=== PATIENT | female | born 1970 | race Caucasian/White ===

== ENCOUNTER 2016-05-05 11:32 | Outpatient (RCR) | payer MEDICAID ==
--- OUTSIDE RECORDS SUMMARY | 2016-05-05 10:57 | XMS REPORT | Continuity of Care Document ---
Author Author [facility] Organization [facility] Address Unknown Phone Unavailable Care Team Providers Care Analyst Geochemical Prospecting Name Role Phone Dudley Maria PCP [phone] Source Comments Some departments are not documenting in the electronic medical record. If you do not see the information that you expected, contact Release of Information in the Health Information Management department at [phone] for further assistance in locating additional records.[facility] Active Allergies and Adverse Reactions Not on File Current Medications Not on file Active Problems Not on file Social History Tobacco Use Types Packs/Day Years Used Date Never Assessed Plan of Care Health Maintenance Due Date Last Done Comments Physical (Comprehensive) 1976 Exam Pertussis Vaccine 1980 Tetanus Vaccine 1986 Cervical Cancer Screening 1990 Breast Cancer Screening 2009 Influenza Vaccine 02/25/2016 Results from Last 3 Months Not on file
[~2016-05-05 11:32] MED LIST: ACET-2267 PO; ALPR1TAB7 PO; AMOX500C2 PO; ASP81CT; ATEN50TA PO; ATN25T; BACL10TA PO; CYCL10TA45; CYCL10TA9 PO; DICL50PO5 PO; DIPH25TA65 PO; ESCI20TA45 PO; FURO20TA4 PO; GABA600T2 PO; GABA800T2 PO; GBPN600T; INSHRV; INSU100I29 SC; INSU100I32 SQ; INSU100V5 SQ; INSU100V8; INSU500V SQ; LEVO25TA5 PO; LEVO75TA6 PO; LISI5TAB14; LISINOPRIL; LOSA1TAB70 PO; LOVASTATIN; MED FOR TACHYCARDIA; METO5TAB6 PO; MORP-33 PO; MUPI15CR11 TP; NALO25TA PO; NITR0.4T SL; NYST1000 PO; NYST15OI13 TP; NYST30PO9 TOP; OSLT75C PO; OXYC-202 PO; OXYC-465 PO; PANT40TA3 PO; PNT40TEC; PROM25TA14 PO; PROP1TAB77; PROP1TAB77 PO; QUET50TA49 PO; RANI150T15 PO; RT-ALBUINH INH; TEMA30CA PO; VARE1TAB22 PO
--- OUTSIDE RECORDS SUMMARY | 2016-05-05 11:35 | XMS REPORT | Continuity of Care Document ---
Author Author [facility] Organization [facility] Address Unknown Phone Unavailable Care Team Providers Care Long Lines Operator Name Role Phone Dudley Maria PCP [phone] Source Comments Some departments are not documenting in the electronic medical record. If you do not see the information that you expected, contact Release of Information in the Health Information Management department at [phone] for further assistance in locating additional records.[facility] Active Allergies and Adverse Reactions Not on [...]
[2016-05-10 07:21] LABS: NUMBER HOURS COLLECTED 24 HOURS; URINE VOLUME REF 2700 ML
[2016-05-13 07:46] LABS: CREAT/CORTI URINE REF LAB 594 L MG/DAY (700-1600)
[2016-05-13 07:47] LABS: CORT U UG/L 3.34 UG/L; CORTISOL CREATININE RATIO URIN 15.18 ug/g CRT; CORTISOL INTERP SEE FOOTNOTE; CREATININE URINE REF MG/DL 22 MG/DL
[2016-07-16] MEDS ORDERED: NAPR500T3 PO (17:51)
[2016-07-16] MEDS ORDERED: TIZA2CAP9 PO (17:51)
[2016-07-18] MEDS ORDERED: NYST1000 MM (14:01)
[2016-07-18] MEDS ORDERED: TIZA2TAB3 PO (14:01)
[2016-07-18] MEDS ORDERED: IBUP-30 PO (14:01)
[2016-07-18] MEDS ORDERED: INSU500I SC (14:01)
[2016-07-18] MEDS ORDERED: OXYC-471 PO (14:01)
[2016-07-18] MEDS ORDERED: ATEN100T PO (14:01)
[2016-07-18] MEDS ORDERED: NYST30PO9 TOP (14:01)
[2016-08-04] MEDS ORDERED: VARE0.5T PO (15:58)
== END 2016-08-03 | disposition home or self-care (01) ==
LOC: LAB 11:32
PROVIDERS: ATTEND Internal Medicine Endocrinology, Diabetes & Metabolism
DX: E88.81 Metabolic syndrome and other insulin resistance (principal)
CPT/HCPCS: 36415; 82530; 86337

== ENCOUNTER 2016-07-16 11:49 | Observation (INO) | payer MEDICAID ==
[~2016-07-16] VITALS: Ht 157.5 cm; Wt 117.5 kg
--- OUTSIDE RECORDS SUMMARY | 2016-07-16 11:55 | XMS REPORT | Continuity of Care Document ---
Author Author [facility] Organization [facility] Address Unknown Phone Unavailable Care Team Providers Care Dairy Chemist Name Role Phone Dudley Maria PCP [phone] Source Comments Some departments are not documenting in the electronic medical record. If you do not see the information that you expected, contact Release of Information in the Health Information Management department at [phone] for further assistance in locating additional records.[facility] Active Allergies and Adverse Reactions [...]
[2016-07-16 12:25] LABS: BASOPHILS % (AUTO) 1 % (0-10); EOSINOPHILS % (AUTO) 3 % (0-10); LYMPHOCYTES % (AUTO) 44 % (12-44); MEAN CORPUSCULAR HEMOGLOBIN 30 PG (25-34); MEAN CORPUSCULAR HGB CONC 33 G/DL (32-36); MEAN CORPUSCULAR VOLUME 90 FL (80-99); MONOCYTES % (AUTO) 5 % (0-12); NEUTROPHILS # (AUTO) 3.8 X 10^3 (1.8-7.8); NEUTROPHILS % (AUTO) 47 % (42-75); PLATELET COUNT 238 10^3/uL (130-400); RED BLOOD COUNT 3.86 10^6/uL (4.35-5.85); RED CELL DISTRIBUTION WIDTH 13.7 % (10.0-14.5); WHITE BLOOD COUNT 8.1 10^3/uL (4.3-11.0)
[2016-07-16 12:26] LABS: BASOPHILS # (AUTO) 0.1 10^3/uL (0.0-0.1); EOSINOPHILS # (AUTO) 0.3 10^3/uL (0.0-0.3); LYMPHOCYTES # (AUTO) 3.5 X 10^3 (1.0-4.0); MONOCYTES # (AUTO) 0.4 X 10^3 (0.0-1.0)
[2016-07-16 12:29] LABS: BILIRUBIN,URINE NEGATIVE (NEGATIVE); KETONES,URINE NEGATIVE (NEGATIVE); LEUKOCYTE ESTERASE ,URINE NEGATIVE (NEGATIVE); NITRITE,URINE NEGATIVE (NEGATIVE); PH,URINE 6 (5-9); PROTEIN,URINE NEGATIVE (NEGATIVE); UROBILINOGEN,URINE NORMAL (NORMAL)
[2016-07-16] MEDS ORDERED: inSUlin ASPART (NovoLOG) 1 UNIT/0.01 ML (CHARGE PER UNIT) SC ONE (12:45)
[2016-07-16 12:46] LABS: ALANINE AMINOTRANSFERASE 23 U/L (0-55); ALBUMIN 3.5 G/DL (3.2-4.5); ANION GAP 15 MMOL/L (5-14); ASPARTATE AMINO TRANSFERASE 15 U/L (5-34); BILIRUBIN,TOTAL 0.6 MG/DL (0.1-1.0); BLOOD UREA NITROGEN 7 MG/DL (7-18); BUN/CREATININE RATIO 7; CALCIUM 8.1 MG/DL (8.5-10.1); CARBON DIOXIDE 20 MMOL/L (21-32); CHLORIDE 92 MMOL/L (98-107); CREATININE SERUM 0.95 MG/DL (0.60-1.30); GFR ESTIMATED > 60; POTASSIUM 3.4 MMOL/L (3.6-5.0); SODIUM 127 MMOL/L (135-145)
[2016-07-16 12:49] LABS: GLUCOSE 685 MG/DL (70-105)
[2016-07-16] MEDS: NS IV 1000 ML 1,000 ML IV SCH ×3 (12:51→21:10)
[2016-07-16] MEDS ORDERED: inSUlin (REGULAR) HUMAN 1 UNIT/0.01 ML (CHARGE PER UNIT) IV ONE (13:45)
[2016-07-16] MEDS ORDERED: NS IV 1000 ML 1,000 ML IV SCH (13:45)
--- NOTE | 2016-07-16 14:09 | ED General ---
General Chief Complaint: Glucose Problems Stated Complaint: ELEV BLOOD SUGAR/VOMITING Nursing Triage Note: Pt presents to ED with c/o N/V/D and hyperglycemia over the last several weeks, pt reports R side abdominal pain and "swelling". Nursing Sepsis Screen: No Definite Risk Source of Information: Patient Exam Limitations: No Limitations History of Present Illness Time Seen by Provider: 14:07 Initial Comments The patient is a 45-year-old white female who reports that she has been having trouble with abdominal pain, repeated nausea and vomiting, and diarrhea for the past month or more. She states that today despite not eating because of vomiting, her glucometer registered high. She took her usual morning dose but did not apply her sliding scale. She gives a history of having previous cholecystectomy and appendectomy. She had some sort of bowel perforation 15 or more years ago which she says was repaired by a steel mash. Timing/Duration: Other (1 month or more) Associated Systoms: Loss of Appetite Allergies and Home Medications Allergies Coded Allergies: acetaminophen (Verified Allergy, Mild, 01/12/09) hydrocodone (Verified Allergy, Mild, 01/12/09) Iodinated Contrast Media - IV Dye (Verified Allergy, Unknown, 04/27/07) Sulfa (Sulfonamide Antibiotics) (Verified Allergy, Unknown, 04/27/07) codeine (Verified Allergy, Unknown, 04/27/07) iodine (Verified Allergy, Unknown, 04/27/07) metoclopramide (Verified Allergy, Unknown, 08/17/15) ondansetron (Verified Allergy, Unknown, 08/17/15) prochlorperazine (Verified Allergy, Unknown, 04/27/07) Uncoded Allergies: IV Dye (Allergy, Mild, 08/17/15) tape (Adverse Reaction, Mild, blister, 08/17/15) Home Medications Acetaminophen 500 Mg Tablet 1,000 MG PO DAILY @HS (Reported) Alprazolam 1 Mg Tablet 1 MG PO TID PRN PRN ANXIETY (Reported) Atenolol 50 Mg Tablet 100 MG PO DAILY (Reported) TAKES 2 OF A (50 MG) TABLET Baclofen 10 Mg Tablet 10 MG PO TID (Reported) Cyclobenzaprine HCl 10 Mg Tablet 10 MG PO TID PRN PRN MUSCLE SPASMS (Reported) Diphenhydramine HCl 25 Mg Tablet 50 MG PO DAILY @ HS (Reported) Escitalopram Oxalate 20 Mg Tablet 20 MG PO DAILY (Reported) Furosemide 20 Mg Tablet 20 MG PO DAILY PRN PRN SWELLING (Reported) Gabapentin 800 Mg Tablet 800 MG PO TID (Reported) Insulin Degludec 100 Unit/1 Ml Insuln.pen 75 UNITS SQ HS (Reported) Insulin Determir 1,000 Units/10 Ml Soln 35 UNITS SQ BID (Reported) Insulin Regular, Human 20 Ml Soln 45 UNITS SQ AC (Reported) Levothyroxine Sodium 75 Mcg Tablet 75 MCG PO HS (Reported) Losartan/Hydrochlorothiazide 1 Each Tablet 1 TAB PO HS (Reported) Metolazone 5 Mg Tablet 5 MG PO DAILY PRN PRN SWELLING (Reported) Morphine Sulfate 15 Mg Tablet.er 15 MG PO Q12H PRN PRN PAIN (Reported) LAST FILLED 10/07/15 #60 Mupirocin Calcium 15 Gm Cream..g. 15 GM TP TID PRN PRN ITCHING (Reported) Naloxegol Oxalate 25 Mg Tablet 25 MG PO DAILY PRN (Reported) Nystatin 15 Gm Oint...g. 15 GM TP BID (Reported) Oxycodone HCl/Acetaminophen 1 Each Tablet 1 EACH PO TID PRN PRN PAIN (Reported) Oxycodone HCl/Acetaminophen 1 Each Tablet 1 EACH PO TID PRN PRN PAIN (Reported) Pantoprazole Sodium 40 Mg Tablet.dr 40 MG PO DAILY (Reported) Promethazine HCl 25 Mg Tablet 25 MG PO Q6H PRN PRN NAUSEA (Reported) Promethazine HCl 25 Mg Tablet #10 25 MG PO Q8H PRN PRN NAUSEA/VOMITING Prescribed by: LEELA LUNA on 04/12/162017 Quetiapine Fumarate 50 Mg Tab.er.24h 100 MG PO HS (Reported) TAKES 2 (50MG) TABLETS Ranitidine HCl 150 Mg Tablet 150 MG PO BID (Reported) Temazepam 30 Mg Capsule 30 MG PO HS (Reported) Varenicline Tartrate 1 Mg Tablet 1 MG PO BID (Reported) Constitutional: see HPI EENTM: no symptoms reported Respiratory: no symptoms reported Cardiovascular: no symptoms reported Gastrointestinal: see HPI Musculoskeletal: no symptoms reported Skin: no symptoms reported Psychiatric/Neurological: No Symptoms Reported Hematologic/Lymphatic: No Symptoms Reported Immunological/Allergic: no symptoms reported Past Gglibbe-Hzurzw-Wsofli Hx Patient Social History Alcohol Use: Denies Use Recreational Drug Use: No Smoking Status: Current Everyday Smoker Type Used: Cigarettes, Electronic/Vapor Recent Foreign Travel: No Contact w/Someone Who Travel: No Recent Infectious Disease Expo: No Recent Hopitalizations: No Physical Abuse Screen: No Sexual Abuse: No Seasonal Allergies Seasonal Allergies: No Surgeries HX Surgeries: Yes (port) Surgeries: Abdominal, Appendectomy, Bladder Surgery, Cardiac, Gallbladder, Hysterectomy, Oophorectomy, Tonsillectomy Respiratory Hx Respiratory Disorders: Yes Respiratory Disorders: COPD Cardiovascular Hx Cardiac Disorders: Yes (cath, NARROWING OF CAROTIDS ASHLI. 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 Genitourinary Hx Genitourinary Disorders: Yes (BLADDER SURGERY) Gastrointestinal Hx Gastrointestinal Disorders: Yes (chronic abdominal pain from hernia repair) Musculoskeletal Hx Musculoskeletal Disorders: Yes Musculoskeletal Disorders: Fibromyalgia, Back Injury, Chronic Back Pain Endocrine Hx Endocrine Disorders: Yes (obesity) Endocrine Disorders: Diabetes, Insulin dep, Hypothyroidsim HEENT HX ENT Disorders: No Cancer Hx Cancer: No Psychosocial Hx Psychiatric Problems: Yes Behavioral Health Disorders: Anxiety, Depression Integumentary HX Skin/Integumentary Disorder: No Blood Transfusions Hx Blood Disorders: No Family Medical History Significant Family History: Hypertension Physical Exam Vital Signs Vital Sign - Last 12Hours 07/16/16 11:52 Temp 97.9 Pulse 67 Resp 18 B/P 138/97 Pulse Ox 97 O2 Delivery Room Air Capillary Refill : Less Than 3 Seconds General Appearance: Mild Distress Moderate Distress Eyes: Bilateral Eye Normal Inspection HEENT: Normal ENT Inspection Neck: Normal Inspection Respiratory: Chest Non Tender Lungs Clear Normal Breath Sounds No Accessory Muscle Use No Respiratory Distress Cardiovascular: Regular Rate, Rhythm No Edema No Gallop No JVD No Murmur Normal Peripheral Pulses Gastrointestinal: Other Extremity: Normal Capillary Refill Normal Inspection Normal Range of Motion Non Tender No Calf Tenderness No Pedal Edema Neurologic/Psychiatric: Alert Oriented x3 No Motor/Sensory Deficits Normal Mood/Affect Skin: Normal Color Warm/Dry Lymphatic: No Adenopathy Progress/Results/Core Measures Results/Orders Lab Results Laboratory Tests Test 07/16/16 12:10 07/16/16 12:25 07/16/16 12:27 07/16/16 13:41 Range/Units Alanine Aminotransferase (ALT/SGPT) 23 0-55 U/L Albumin 3.5 3.2-4.5 G/DL Alkaline Phosphatase 89 40-136 U/L Anion Gap 15 H 5-14 MMOL/L Aspartate Amino Transf (AST/SGOT) 15 5-34 U/L BUN/Creatinine Ratio 7 Basophils # (Auto) 0.1 0.0-0.1 10^3/uL Basophils (%) (Auto) 1 0-10 % Blood Urea Nitrogen 7 7-18 MG/DL Calcium Level 8.1 L 8.5-10.1 MG/DL Carbon Dioxide Level 20 L 21-32 MMOL/L Chloride Level 92 L 98-107 MMOL/L Creatinine 0.95 0.60-1.30 MG/DL Eosinophils # (Auto) 0.3 0.0-0.3 10^3/uL Eosinophils (%) (Auto) 3 0-10 % Estimat Glomerular Filtration Rate > 60 Glucose Level 685 *H 70-105 MG/DL Hematocrit 35 35-52 % Hemoglobin 11.4 L 11.5-16.0 G/DL Lymphocytes # (Auto) 3.5 1.0-4.0 X 10^3 Lymphocytes (%) (Auto) 44 12-44 % Mean Corpuscular Hemoglobin 30 25-34 PG Mean Corpuscular Hemoglobin Concent 33 32-36 G/DL Mean Corpuscular Volume 90 80-99 FL Mean Platelet Volume 10.0 7.4-10.4 FL Monocytes # (Auto) 0.4 0.0-1.0 X 10^3 Monocytes (%) (Auto) 5 0-12 % Neutrophils # (Auto) 3.8 1.8-7.8 X 10^3 Neutrophils (%) (Auto) 47 42-75 % Platelet Count 238 130-400 10^3/uL Potassium Level 3.4 L 3.6-5.0 MMOL/L Red Blood Count 3.86 L 4.35-5.85 10^6/uL Red Cell Distribution Width 13.7 10.0-14.5 % Sodium Level 127 L 135-145 MMOL/L Total Bilirubin 0.6 0.1-1.0 MG/DL Total Protein 6.0 L 6.4-8.2 G/DL White Blood Count 8.1 4.3-11.0 10^3/uL Urine Bacteria NEGATIVE /HPF Urine Bilirubin NEGATIVE NEGATIVE Urine Casts NONE /LPF Urine Clarity CLEAR Urine Color YELLOW Urine Crystals NONE /LPF Urine Culture Indicated NO Urine Glucose (UA) 4+ H NEGATIVE Urine Ketones NEGATIVE NEGATIVE Urine Leukocyte Esterase NEGATIVE NEGATIVE Urine Mucus NEGATIVE /LPF Urine Nitrite NEGATIVE NEGATIVE Urine Protein NEGATIVE NEGATIVE Urine RBC NONE /HPF Urine RBC (Auto) NEGATIVE NEGATIVE Urine Specific [place] 1.005 L 1.016-1.022 Urine Squamous Epithelial Cells 2-5 /HPF Urine Urobilinogen NORMAL NORMAL MG/DL Urine WBC NONE /HPF Urine pH 6 5-9 Glucometer > 600 *H 563 *H 70-110 MG/DL My Orders Orders-CARLOS ALBERTO CERVANTES MD Accucheck Stat ONCE (07/16/16 12:06) Cbc With Automated Diff (07/16/16 12:06) Comprehensive Metabolic Panel (07/16/16 12:06) Ua Culture If Indicated (07/16/16 12:06) Ns Iv 1000 Ml (Sodium Chloride 0.9%) (07/16/16 12:45) Insulin Aspart (Novolog) (Novolog (Charg (07/16/16 12:45) Ns Iv 1000 Ml (Sodium Chloride 0.9%) (07/16/16 13:45) Insulin (Regular) Human (Humulin R (Per (07/16/16 13:45) Ct Abdomen/Pelvis Wo (07/16/16 14:05) Medications Given in ED Current Medications Medications Dose Ordered Sig/Ramiro Route Start Time Stop Time Status Last Admin Dose Admin Insulin Aspart 10 unit ONCE ONCE SC 07/16/16 12:45 07/16/16 12:46 DC 07/16/16 12:51 10 UNIT Insulin Human Regular 10 unit ONCE ONCE IV 07/16/16 13:45 07/16/16 13:46 DC 07/16/16 13:50 10 UNIT Vital Signs/I&O Vital Sign - Last 12Hours 07/16/16 11:52 Temp 97.9 Pulse 67 Resp 18 B/P 138/97 Pulse Ox 97 O2 Delivery Room Air Blood Pressure Mean: 111 Point of Care Testing Finger Stick Blood Glucose: 563 Blood Glucose Action Taken: RN AND DOCTOR NOTIFIED Departure Communication Progress Notes [address] Millard who is on-call for [facility]. The patient will be admitted for diabetic control and to address the abdominal complaints. Impression Impression: Primary Impression: nonketotic hyperglycemia Disposition: ADMITTED INPATIENT Condition: Improved Decision to Admit Reason: Admit from ER (General) Decision to Admit/Date: Jul 16, 2016 Time/Decision to Admit Time: 14:27 Departure-Patient Inst. Referrals: THERESE VIEIRA DO (PCP) Primary Care Physician MIRZA MARTINO (Family) Primary Care Physician CARLOS ALBERTO CERVANTES MD Jul 16, 2016 14:09
[2016-07-16] MEDS ORDERED: inSUlin REGULAR TPN/DRIP ONLY 250 UNITS in NORMAL SALINE 247.5 ML IV SCH (14:30)
--- NOTE | 2016-07-16 14:32 | Diagnostic Imaging Report ---
PROCEDURE: CT abdomen and pelvis without contrast. TECHNIQUE: Multiple contiguous axial images were obtained through the abdomen and pelvis without the use of intravenous contrast. INDICATION: Mid and upper abdominal pain for one week. Nausea, vomiting and diarrhea The gallbladder is absent. The liver and bile ducts are normal. The spleen, pancreas and adrenals are normal. Kidneys, ureters and bladder are normal. There is no pelvic mass. No acute bowel abnormality is seen. There are changes of prior ventral hernia repair. No residual or recurrent hernia is evident. There is no free intraperitoneal air or fluid. IMPRESSION: No acute abnormality is seen. There is no significant change from 10/29/07. Dictated by: Dictated on workstation # [id number]
[2016-07-16 15:30] VITALS: BP 138/69
[2016-07-16 15:50] VITALS: BP 128/82
[2016-07-16] MEDS ORDERED: FLU TRIvalent (5 YOA+) 2016-17 (AFLURIA) 0.5 ML IM ONE (17:00)
[2016-07-16] MEDS ORDERED: NAPR500T3 PO (17:51)
[2016-07-16] MEDS ORDERED: TIZA2CAP9 PO (17:51)
[2016-07-16] MEDS ORDERED: oxyCODONE/APAP 10/325MG (PERCOCET 10) TABLET PO PRN (19:00)
[2016-07-16] MEDS ORDERED: ALPRAZolam 1 MG (XANAX) TAB PO PRN (19:00)
[2016-07-16] MEDS: inSUlin DETERMIR 1 UNIT/0.01 ML (LEVEMIR) CHARGE PER UNIT SQ SCH (19:06)
[2016-07-16 20:00] VITALS: BP 117/76
[2016-07-16] MEDS ORDERED: TEMAZEPAM 15 MG (RESTORIL) CAP PO PRN (20:45)
[2016-07-16] MEDS ORDERED: NON-FORMULARY MEDICATION 1 EA EA (Temazepam 30 MG) PO SCH (21:00)
[2016-07-16] MEDS ORDERED: QUETIAPINE FUMARATE 100 MG PO SCH (21:00)
[2016-07-16] MEDS ORDERED: NON-FORMULARY MEDICATION 1 EA EA (Naproxen 500 MG) PO SCH (21:00)
[2016-07-16] MEDS: NAPROXEN 250 MG (NAPROSYN) TABLET PO SCH (21:00)
[2016-07-16] MEDS: PANTOPRAZOLE 40 MG/10 ML (PROTONIX) VIAL IV SCH (21:09)
[2016-07-16 23:50] VITALS: BP 99/56
[2016-07-17 04:00] VITALS: BP 101/65
[2016-07-17] MEDS: NS IV 1000 ML 1,000 ML IV SCH ×4 (04:01→21:12)
[2016-07-17 04:42] LABS: ANION GAP 10 MMOL/L (5-14); BLOOD UREA NITROGEN 4 MG/DL (7-18); BUN/CREATININE RATIO 6; CALCIUM 7.7 MG/DL (8.5-10.1); CARBON DIOXIDE 22 MMOL/L (21-32); CHLORIDE 108 MMOL/L (98-107); CREATININE SERUM 0.67 MG/DL (0.60-1.30); GFR ESTIMATED > 60; GLUCOSE 168 MG/DL (70-105); POTASSIUM 3.5 MMOL/L (3.6-5.0); SODIUM 140 MMOL/L (135-145)
--- NOTE | 2016-07-17 08:00 | History & Physicial (CHS) ---
HPI History of Present Illness: 45-year-old female presents to [facility] emergency department during the afternoon of July 16, 2016 after being referred there from [facility] walk-in center. Apparently she was found to have glucose [id number] in the 600 range. She also had vague abdominal complaints as well. She has apparently nausea, vomiting and diarrhea probably over the last 1-1-1/2 months. Her appetite has not been very good and despite not eating and having vomiting her glucose values have been increased. Source: patient Exam Limitations: clinical condition Date seen by provider: Jul 17, 2016 Attending Physician Tal Millard MD PCP Indu Mitchell DO Consult Date of Admission Jul 16, 2016 at 14:20 Home Medications Home Medications Reviewed patient Home Medication Reconciliation Form Allergies Coded Allergies: acetaminophen (Verified Allergy, Mild, 01/12/09) hydrocodone (Verified Allergy, Mild, 01/12/09) Iodinated Contrast Media - Oral and (Verified Allergy, Unknown, 04/27/07) Sulfa (Sulfonamide Antibiotics) (Verified Allergy, Unknown, 04/27/07) codeine (Verified Allergy, Unknown, 04/27/07) iodine (Verified Allergy, Unknown, 04/27/07) metoclopramide (Verified Allergy, Unknown, 08/17/15) ondansetron (Verified Allergy, Unknown, 08/17/15) prochlorperazine (Verified Allergy, Unknown, 04/27/07) Uncoded Allergies: IV Dye (Allergy, Mild, 08/17/15) tape (Adverse Reaction, Mild, blister, 08/17/15) VSI-Ziswth-Wseizs Hx Patient Social History Alcohol Use: Denies Use Recreational Drug Use: No Smoking Status: Current Everyday Smoker Type Used: Cigarettes, Electronic/Vapor Recent Foreign Travel: No Contact w/other who traveled: No Recent Hopitalizations: No Recent Infectious Disease Expo: No Physical Abuse Screen: No Sexual Abuse: No Past Medical History DIABETES TYPE 2, UNCONTROLLED CHRONIC PAIN SYNDROME MORBID OBESITY HYPERTENSION HYPERLIPIDEMIA Family Medical History Significant Family History: Hypertension Family History: Completed stroke 19 MOTHER Diabetes mellitus 19 FATHER 19 MOTHER MATERNAL GRANDMOTHER MATERNAL GRANDFATHER P GRANDFATHER FH: breast cancer 19 MOTHER Kidney disease MATERNAL GRANDFATHER Myocardial infarction 19 FATHER, Onset:59 Review of Systems (CHC) Constitutional: see HPI Reviewed Test Results Reviewed Test Results Radiology NAME: KARMEN LEÓN [facility] REC#: [id number] PT STATUS: REG ER : 1970 PHYSICIAN: CARLOS ALBERTO CERVANTES MD ADMIT DATE: 07/16/16/ER Signed Date of Exam: 07/16/16 CT ABDOMEN/PELVIS WO PROCEDURE: CT abdomen and pelvis without contrast. TECHNIQUE: Multiple contiguous axial images were obtained through the abdomen and pelvis without the use of intravenous contrast. INDICATION: Mid and upper abdominal pain for one week. Nausea, vomiting and diarrhea The gallbladder is absent. The liver and bile ducts are normal. The spleen, pancreas and adrenals are normal. Kidneys, ureters and bladder are normal. There is no pelvic mass. No acute bowel abnormality is seen. There are changes of prior ventral hernia repair. No residual or recurrent hernia is evident. There is no free intraperitoneal air or fluid. IMPRESSION: No acute abnormality is seen. There is no significant change from 10/29/07. Dictated by: Dictated on workstation # [id number] Dict: 07/16/16 1424 Trans: 07/16/[address] [facility] [id number] Interpreted by: MYRA GONZALEZ MD Electronically signed by:MYRA GONZALEZ MD 07/16/16 1436 Physical Exam-(CHC) Physical Exam Vital Signs VS - Last 72 Hours, by Label 07/16/16 07/16/16 07/16/16 07/16/16 11:52 15:07 15:30 15:50 Temp 97.9 97.3 99.1 Pulse 67 81 69 76 Resp 18 18 20 18 B/P 138/97 138/69 128/82 Pulse Ox 97 98 99 96 O2 Delivery Room Air Room Air Room Air Room Air 07/16/16 07/16/16 07/16/16 07/17/16 20:00 21:00 23:50 04:00 Temp 97.0 97.4 98.5 Pulse 77 66 61 Resp 18 20 16 B/P 117/76 99/56 101/65 Pulse Ox 96 96 95 96 O2 Delivery Room Air Room Air Room Air Room Air Capillary Refill : Less Than 3 Seconds General Appearance: no apparent distress Eyes: Bilateral Eye Normal Inspection Neck: supple Respiratory: lungs clear Cardiovascular: regular rate, rhythm Gastrointestinal: normal bowel sounds non tender soft no organomegaly no pulsatile mass guarding (no) rebound (no) Rectal: deferred Extremities: no calf tenderness Skin: warm/dry Assessment/Plan Assessment/Plan Admission Dx 1. Nonketotic hyperglycemia with known history of diabetes 2. Dehydration 3. Abdominal pain--ongoing Plan 1. Nonketotic hyperglycemia with known history of diabetes -Patient to be placed on insulin drip to control the glucose. -Ultimately she'll be placed back on her insulin regimen with fine-tuning. 2. Dehydration -Patient received 2 L of IV fluids in the emergency department. 3. Abdominal pain--ongoing -Surgical consultation for endoscopy possibly either inpatient or outpatient Diagnosis/Problems: Clinical Quality Measures DVT/VTE Risk/Contraindication: Risk Factor Score Per Nursin RFS Level Per Nursing on Admit: 4+=Very High TAL MILLARD MD Jul 17, 2016 08:00
[2016-07-17] MEDS ORDERED: NON-FORMULARY MEDICATION 1 EA EA (Escitalopram Oxalate 20 MG) PO SCH (09:00)
[2016-07-17] MEDS: PANTOPRAZOLE 40 MG/10 ML (PROTONIX) VIAL IV SCH ×2 (09:00→21:11)
[2016-07-17] MEDS: ATENOLOL 50 MG (TENORMIN) TAB PO SCH (09:00)
[2016-07-17] MEDS: NAPROXEN 250 MG (NAPROSYN) TABLET PO SCH ×2 (09:00→21:00)
[2016-07-17] MEDS ORDERED: PROMETHAZINE 25 MG (PHENERGAN) TAB PO PRN (09:30)
[2016-07-17] MEDS: FAMOTIDINE 20 MG (PEPCID) TABLET PO SCH ×2 (09:43→21:00)
[2016-07-17] MEDS: LOSARTAN 50 MG (COZAAR) TAB PO SCH (09:44)
[2016-07-17] MEDS: GABAPENTIN 400 MG (NEURONTIN) CAP PO SCH ×3 (09:45→21:00)
[2016-07-17] MEDS: HYDROCHLOROTHIAZIDE 25 MG (HCTZ) TAB PO SCH (09:46)
[2016-07-17 10:30] VITALS: BP 122/85
[2016-07-17 12:30] VITALS: BP 134/60
[2016-07-17 16:00] VITALS: BP 132/60
[2016-07-17] MEDS: inSUlin (REGULAR) HUMAN 1 UNIT/0.01 ML (CHARGE PER UNIT) SC SCH ×2 (17:19→21:00)
[2016-07-17] MEDS ORDERED: LEVOTHYROXINE 75 MCG (LEVOTHROID) TABLET PO SCH (21:00)
[2016-07-17] MEDS ORDERED: QUEtiapine 100 MG (SEROquel) TAB IMMEDIATE RELEASE PO SCH (21:00)
[2016-07-17] MEDS: inSUlin DETERMIR 1 UNIT/0.01 ML (LEVEMIR) CHARGE PER UNIT SQ SCH (21:11)
--- NOTE | 2016-07-17 21:26 | CONSULTATION REPORT ---
DATE OF CONSULTATION: 07/17/2016 REFERRING PHYSICIAN: Dr. Millard DIAGNOSES: 1. Abdominal pain. 2. Diarrhea. I have been asked by Dr. Millard to see this lady admitted with hyperglycemia and a long history of epigastric pain with vomiting and intermittent diarrhea. For full details of her illness, please refer to the history and physical dictated by Dr. Millard himself. She denies any family history of colon cancer. PAST SURGICAL HISTORY: 1. Laparoscopic cholecystectomy. 2. Repair of incisional hernia from a using a Pfannenstiel scar. ON EXAMINATION: She is comfortable and her vital signs are stable. ABDOMEN: Abdominal examination is unremarkable. There is no recurrence of the hernia over the lower abdomen. At this point, the differential diagnosis would include diabetic autonomic dysfunction leading to diarrhea and colitis. In addition, gastritis could be considered as well. With this in mind, upper and lower endoscopy would be reasonable. These would be arranged as an outpatient. Job ID: [id number] Dictated Date: 07/17/2016 13:52:36 Business Editor Date: 07/17/2016 21:19:55/riana DIMAS
[2016-07-18] VITALS: BP 127/88
[2016-07-18] MEDS: inSUlin (REGULAR) HUMAN 1 UNIT/0.01 ML (CHARGE PER UNIT) SC SCH ×2 (08:00→11:00)
[2016-07-18 08:49] VITALS: BP 139/74
[2016-07-18] MEDS: PANTOPRAZOLE 40 MG/10 ML (PROTONIX) VIAL IV SCH (09:51)
[2016-07-18] MEDS: NS IV 1000 ML 1,000 ML IV SCH (10:49)
[2016-07-18] MEDS: HYDROCHLOROTHIAZIDE 25 MG (HCTZ) TAB PO SCH (10:50)
[2016-07-18] MEDS: LOSARTAN 50 MG (COZAAR) TAB PO SCH (10:50)
[2016-07-18] MEDS: GABAPENTIN 400 MG (NEURONTIN) CAP PO SCH ×2 (10:51→13:00)
[2016-07-18] MEDS: NAPROXEN 250 MG (NAPROSYN) TABLET PO SCH (10:51)
[2016-07-18] MEDS: FAMOTIDINE 20 MG (PEPCID) TABLET PO SCH (10:52)
[2016-07-18] MEDS: ATENOLOL 50 MG (TENORMIN) TAB PO SCH (10:52)
--- NOTE | 2016-07-18 13:10 | Discharge Instructions ---
Discharge [facility] Discharge Medications New, Converted or Re-Newed RX: Other Continued Medications: Acetaminophen (Tylenol Extra Strength) 500 Mg Tablet 1000 MG PO TID PRN PAIN TAB Alprazolam (Alprazolam) 1 Mg Tablet 1 MG PO QID PRN ANXIETY TAB Atenolol (Atenolol) 100 Mg Tablet 100 MG PO HS TAB Diphenhydramine HCl (Benadryl Allergy) 25 Mg Tablet 50 MG PO DAILY PRN ITCHING TAB Escitalopram Oxalate (Escitalopram Oxalate) 20 Mg Tablet 20 MG PO DAILY Furosemide (Furosemide) 20 Mg Tablet 20 MG PO DAILY TAB Gabapentin (Gabapentin) 800 Mg Tablet 800 MG PO QID TAB Insulin Regular, Human (Humulin R U-500 Kwikpen) 500 Unit/1 Ml Insuln.pen 325 UNITS SC AC EA Levothyroxine Sodium (Levothyroxine Sodium) 75 Mcg Tablet 75 MCG PO HS LAST FILLED #30 16 TAB Losartan/Hydrochlorothiazide (Losartan-Hctz 100-25 mg Tab) 1 Each Tablet 1 TAB PO HS LAST FILLED #90 16 TAB Naproxen (Naproxen) 500 Mg Tablet 500 MG PO BID TAB Nystatin (Nystatin) 60 Gm Powder TOP BID PRN RASH EA Nystatin (Nystatin) 100,000 Unit/1 Ml Oral.susp 5 ML MM QID PRN THRUSH EA Oxycodone HCl/Acetaminophen (Oxycodone-Acetaminophen 5-325) 1 Each Tablet 1 TAB PO TID PRN PAIN TAB Promethazine HCl (Promethazine Tablet) 25 Mg Tablet 25 MG PO BID TAB Quetiapine Fumarate (Seroquel Xr) 50 Mg Tab.er.24h 100 MG PO HS TAKES 2 (50MG) TABLETS Ranitidine HCl (Zantac) 150 Mg Tablet 150 MG PO BID TAB Temazepam (Temazepam) 30 Mg Capsule 30 MG PO HS CAP Tizanidine HCl (Tizanidine HCl) 2 Mg Tablet 2 MG PO TID TAB Varenicline Tartrate (Chantix) 1 Mg Tablet 0.5 MG PO BID TAB Discontinued Medications: Ibuprofen (Advil) 200 Mg Tablet 800 MG PO TID PRN PAIN TAB Patient Instructions Goal/Follow Up Appt: MIRZA MARTINO APRN 07/[address] BORJAS - 07/19 AT 1 PM IN [place] Patient Instructions: PLEASE FOLLOW UP WITH YOUR PROVIDERS SCHEDULED. Return to The Hospital For: NAUSEA/VOMITING THAT WON'T STOP, BS >500 FOR OVER 4 HOURS WITHOUT DECREASING AFTER INSULIN DOSE Activity & Diet Discharge Diet: ADA Diet Activity as Tolerated: Yes Orders-Post D/C & Referrals Pneu Vac Indicated: Yes Copy Copies To 1: DIAMOND MCKEON APRN, MD Jul 18, 2016 1:10 pm
--- NOTE | 2016-07-18 13:12 | Discharge Summary ---
Diagnosis/Chief Complaint Date of Admission Jul 16, 2016 at 2:20 pm Date of Discharge Jul 18, 2016 Admission Diagnosis Admission Diagnosis 1. Nonketotic hyperglycemia with known history of diabetes 2. Dehydration 3. Abdominal pain--ongoing Discharge Diagnosis 1. Nonketotic hyperglycemia with known history of diabetes -Patient to be placed on insulin drip to control the glucose. -Ultimately she'll be placed back on her insulin regimen with fine-tuning. DC - Patient is largely noncompliant, I anticipate this is due partly to her psychiatric disease. She states that her nurse first assist is unwilling to chagne her from U500 despite her BS running >500. I have arranged for an appt with Dr Merritt's team tomorrow to flesh this out. Hopefully tighter control as an outpatient will avert further hospitalizations. 2. Dehydration -Patient received 2 L of IV fluids in the emergency department. DC - no further issues during hospitalization 3. Abdominal pain--ongoing -Surgical consultation for endoscopy possibly either inpatient or outpatient DC - needs to follow up with surgery as an outpatient, did not affect the inpatient situation. Chief Complaint/HPI Chief Complaint/HPI 45-year-old female presents to [facility] emergency department during the afternoon of July 16, 2016 after being referred there from [facility] walk-in center. Apparently she was found to have glucose [id number] in the 600 range. She also had vague abdominal complaints as well. She has apparently nausea, vomiting and diarrhea probably over the last 1-1-1/2 months. Her appetite has not been very good and despite not eating and having vomiting her glucose values have been increased. Discharge Summary-Simple/Stand Consultations Discharge Physical Examination Allergies: Coded Allergies: acetaminophen (Verified Allergy, Mild, 01/12/09) hydrocodone (Verified Allergy, Mild, 01/12/09) Iodinated Contrast Media - Oral and (Verified Allergy, Unknown, 04/27/07) Sulfa (Sulfonamide Antibiotics) (Verified Allergy, Unknown, 04/27/07) codeine (Verified Allergy, Unknown, 04/27/07) iodine (Verified Allergy, Unknown, 04/27/07) metoclopramide (Verified Allergy, Unknown, 08/17/15) ondansetron (Verified Allergy, Unknown, 08/17/15) prochlorperazine (Verified Allergy, Unknown, 04/27/07) Uncoded Allergies: IV Dye (Allergy, Mild, 08/17/15) tape (Adverse Reaction, Mild, blister, 08/17/15) Vitals & I&Os Vital Sign - Last 12Hours Date Time Temp Pulse Resp B/P Pulse Ox O2 Delivery O2 Flow Rate FiO2 07/18/16 08:49 98.2 63 20 139/74 96 Room Air Intake and Output 07/18/16 00:00 Intake Total 2625 ml Balance 2625 ml General Appearance: Alert, Oriented X3, Cooperative, No Acute Distress Respiratory: Clear to Auscultation, Normal Air Movement Cardiovascular: Regular Rate, Normal S1, Normal S2, No Murmurs, Gallops, Rubs Abdominal: Normal Bowel Sounds, Soft, No Tenderness, No Hepatosplenomegaly, No Masses Extremities: No Clubbing, No Cyanosis, No Edema Skin: No Rashes Neuro: Normal Speech Hospital Course See final discharge diagnosis. Radiology Reviewed NAME: KARMEN LEÓN [facility] REC#: [id number] PT STATUS: REG ER : 1970 PHYSICIAN: CARLOS ALBERTO CERVANTES MD ADMIT DATE: 07/16/16/ER Signed Date of Exam: 07/16/16 CT ABDOMEN/PELVIS WO PROCEDURE: CT abdomen and pelvis without contrast. TECHNIQUE: Multiple contiguous axial images were obtained through the abdomen and pelvis without the use of intravenous contrast. INDICATION: Mid and upper abdominal pain for one week. Nausea, vomiting and diarrhea The gallbladder is absent. The liver and bile ducts are normal. The spleen, pancreas and adrenals are normal. Kidneys, ureters and bladder are normal. There is no pelvic mass. No acute bowel abnormality is seen. There are changes of prior ventral hernia repair. No residual or recurrent hernia is evident. There is no free intraperitoneal air or fluid. IMPRESSION: No acute abnormality is seen. There is no significant change from 10/29/07. Dictated by: Dictated on workstation # [id number] Dict: 07/16/16 1424 Trans: 07/16/16 1433 [facility] [id number] Interpreted by: MYRA GONZALEZ MD Electronically signed by:MYRA GONZALEZ MD 07/16/16 1436 Discharge Instructions to patient/family Please see electonic discharge instructions given to patient. Discharge Medications Reviewed and agree with Discharge Medication list on patient's Discharge Instruction sheet Clinical Quality Measures DVT/VTE Risk/Contraindication: Risk Factor Score Per Nursin RFS Level Per Nursing on Admit: 4+=Very High DIAMOND NUGENT MD Jul 18, 2016 13:12
[2016-07-18] MEDS ORDERED: OXYC-471 PO (14:01)
[2016-07-18] MEDS ORDERED: TIZA2TAB3 PO (14:01)
[2016-07-18] MEDS ORDERED: ATEN100T PO (14:01)
[2016-07-18] MEDS ORDERED: INSU500I SC (14:01)
[2016-07-18] MEDS ORDERED: NYST30PO9 TOP (14:01)
[2016-07-18] MEDS ORDERED: IBUP-30 PO (14:01)
[2016-07-18] MEDS ORDERED: NYST1000 MM (14:01)
[2016-07-18 15:20] VITALS: BP 139/74
== END 2016-07-18 13:08 | disposition home or self-care (01) ==
LOC: EDUNIT# 11:49 → ER 11:51 → UNDOADMIN 14:20 → 4TH 14:20 → INTOOBSV 15:50 → 4TH 15:50 → ICU 16:30 → 4TH 16:30 → ICU 07-17 13:05 → 4TH 07-17 13:05 → UNDODISIN 07-18 15:35
PROVIDERS: ADMIT Family Medicine; ATTEND Family Medicine
DX: E11.65 Type 2 diabetes mellitus with hyperglycemia (principal); E86.0 Dehydration; G89.4 Chronic pain syndrome; E66.01 Morbid (severe) obesity due to excess calories; I10 Essential (primary) hypertension; E78.5 Hyperlipidemia, unspecified; R10.11 Right upper quadrant pain; R19.7 Diarrhea, unspecified; F17.210 Nicotine dependence, cigarettes, uncomplicated; J44.9 Chronic obstructive pulmonary disease, unspecified; I25.10 Atherosclerotic heart disease of native coronary artery without angina pectoris; E78.00 Pure hypercholesterolemia, unspecified; M79.7 Fibromyalgia; E03.9 Hypothyroidism, unspecified; Z79.4 Long term (current) use of insulin; F32.9 Major depressive disorder, single episode, unspecified; F41.9 Anxiety disorder, unspecified
CPT/HCPCS: 36415; 74176; 80048; 80053; 81000; 82962; 85025; 96361; 96372; 96374; G0378

== ENCOUNTER 2016-08-04 06:00 | Outpatient (CLI) | payer MEDICAID ==
[~2016-08-04] VITALS: Ht 157.5 cm; Wt 115.7 kg
[~2016-08-04 06:00] MED LIST changes: +ATEN100T PO; +IBUP-30 PO; +INSU500I SC; +NAPR500T3 PO; +NYST1000 MM; +OXYC-471 PO; +TIZA2CAP9 PO; +TIZA2TAB3 PO
--- OUTSIDE RECORDS SUMMARY | 2016-08-04 06:03 | XMS REPORT | Continuity of Care Document ---
Author Author [facility] Organization [facility] Address Unknown Phone Unavailable Care Team Providers Care Box Worker Name Role Phone Dudley Maria PCP [phone] Source Comments Some departments are not documenting in the electronic medical record. If you do not see the information that you expected, contact Release of Information in the Health Information Management department at [phone] for further assistance in locating additional records.[facility] Active Allergies and Adverse Reactions [...]
[2016-08-04] MEDS ORDERED: VARE0.5T PO (15:58)
== END 2016-08-04 15:59 ==
LOC: PREOP 06:00
PROVIDERS: ATTEND Surgery
DX: Z01.818 Encounter for other preprocedural examination (principal); R19.7 Diarrhea, unspecified; R10.13 Epigastric pain

== ENCOUNTER 2016-08-25 05:38 | Outpatient (CLI) | payer MEDICAID ==
[~2016-08-25] VITALS: Ht 157.5 cm; Wt 115.7 kg
[~2016-08-25 05:38] MED LIST changes: +VARE0.5T PO
--- OUTSIDE RECORDS SUMMARY | 2016-08-25 05:40 | XMS REPORT | Continuity of Care Document ---
Author Author [facility] Organization [facility] Address Unknown Phone Unavailable Care Team Providers Care Dean Of Graduate Studies Name Role Phone Dudley Maria PCP [phone] Source Comments Some departments are not documenting in the electronic medical record. If you do not see the information that you expected, contact Release of Information in the Health Information Management department at [phone] for further assistance in locating additional records.[facility] Active Allergies and Adverse Reactions Not [...]
== END 2016-08-25 11:22 ==
LOC: PREOP 05:38
PROVIDERS: ATTEND Surgery
DX: Z01.818 Encounter for other preprocedural examination (principal); R19.7 Diarrhea, unspecified; R10.11 Right upper quadrant pain; R11.10 Vomiting, unspecified

== ENCOUNTER → 2016-08-30 | Outpatient (CLI) | payer MEDICAID ==
--- OUTSIDE RECORDS SUMMARY | 2016-08-30 17:17 | XMS REPORT | Continuity of Care Document ---
Author Author [facility] Organization [facility] Address Unknown Phone Unavailable Care Team Providers Care Nephrology Social Worker Name Role Phone Dudley Maria PCP [phone] Source Comments Some departments are not documenting in the electronic medical record. If you do not see the information that you expected, contact Release of Information in the Health Information Management department at [phone] for further assistance in locating additional records.[facility] [...]
--- NOTE | 2016-08-30 17:38 | Diagnostic Imaging Report ---
PROCEDURE: CT head without contrast. TECHNIQUE: Multiple contiguous axial images were obtained through the brain without the use of intravenous contrast. INDICATION: Syncope. Dizziness. COMPARISON: None. FINDINGS: No CT evidence of acute infarction. No intracranial hemorrhage, mass effect, hydrocephalus, or extra-axial fluid collections. The visualized paranasal sinuses, mastoids and orbits are unremarkable. Osseous structures are intact. IMPRESSION: No acute intracranial CT findings. Dictated by: Dictated on workstation # [id number]
--- NOTE | 2016-08-30 18:07 | Diagnostic Imaging Report ---
INDICATION: Trauma to right shoulder. FINDINGS: Two views show humeral head in normal articulation with the glenoid fossa. Articulating surfaces are smooth. AC joint in good alignment. Mild hypertrophic changes noted. No fractures are demonstrated. IMPRESSION: Mild degenerative changes with no fractures demonstrated. Dictated by: Dictated on workstation # [id number]
--- NOTE | 2016-08-30 18:17 | Diagnostic Imaging Report ---
INDICATION: Fell and hit wall with shoulder. FINDINGS: Cervical spine shows good alignment. Body heights and disc spaces are well maintained. Atlantoaxial joint appears normal. No fractures demonstrated. The prevertebral soft tissues are not widened. IMPRESSION: Normal cervical spine. Dictated by: Dictated on workstation # [id number]
== END ==
LOC: RAD 17:12
PROVIDERS: ATTEND Nurse Practitioner Family
DX: R55 Syncope and collapse (principal); R42 Dizziness and giddiness; M54.2 Cervicalgia; M25.511 Pain in right shoulder
CPT/HCPCS: 70450; 72040; 73030

== ENCOUNTER → 2016-09-19 | Outpatient (CLI) | payer MEDICAID ==
[2016-09-19] VITALS (30 sets, daily range): BP systolic 100–143; BP diastolic 72–105
[~2016-09-19] VITALS: Ht 157.5 cm; Wt 116.1 kg
[~2016-09-19] MED LIST changes: +ATROPINE INJECTION 1 MG/10 ML SYR (ABBOTT) ONE; +NS IV 1000 ML 1,000 ML ONE
--- NOTE | 2016-09-19 10:51 | Cardiology Tilt Table Test ---
Cardiology-Tilt Table Test Tilt Table Test Date 09/19/16 Baseline Vitals Vital Signs Date Time Temp Pulse Resp B/P (MAP) Pulse Ox O2 Delivery O2 Flow Rate FiO2 09/19/16 09:16 98.7 72 18 139/102 98 Vital Signs VS - Last 72 Hours, by Label 09/19/16 09/19/16 09/19/16 09/19/16 09:16 09:46 09:47 09:50 Temp 98.7 Pulse 72 71 79 73 Resp 18 B/P (MAP) 139/102 143/100 138/99 139/105 Pulse Ox 98 97 96 97 09/19/16 09/19/16 09/19/16 09/19/16 09:52 09:53 09:54 09:55 Pulse 75 72 76 75 B/P (MAP) 141/101 138/98 136/94 140/96 Pulse Ox 97 97 97 97 09/19/16 09/19/16 09/19/16 09/19/16 09:56 09:57 09:58 09:59 Pulse 72 72 71 70 Resp 12 B/P (MAP) 139/97 137/100 140/94 131/93 Pulse Ox 97 96 95 97 09/19/16 09/19/16 09/19/16 09/19/16 10:00 10:01 10:02 10:03 Pulse 69 73 80 86 B/P (MAP) 142/91 132/89 100/91 106/78 Pulse Ox 96 96 96 95 09/19/16 09/19/16 09/19/16 09/19/16 10:04 10:05 10:06 10:08 Pulse 88 87 88 89 Resp 19 B/P (MAP) 118/82 115/89 117/93 110/88 Pulse Ox 97 97 97 09/19/16 09/19/16 09/19/16 09/19/16 10:09 10:10 10:11 10:12 Pulse 90 90 91 91 B/P (MAP) 107/76 108/97 115/83 121/72 Pulse Ox 96 97 95 96 09/19/16 09/19/16 09/19/16 09/19/16 10:13 10:14 10:15 10:16 Pulse 93 91 93 93 B/P (MAP) 129/101 141/97 129/104 138/99 Pulse Ox 96 09/19/16 09/19/16 10:18 10:20 Pulse 77 89 B/P (MAP) 129/78 107/86 Pulse Ox 97 Patient was tilted to 75 degrees for [10] minutes, then returned to supine position, given [2] sublingual nitroglycerin tablets, then tilted again to 75 degrees for [15] minutes. During test, patient was: symptomatic (with dizziness) In Conclusion;: Negative Tilt Table Test GLEN LANGSTON Sep 19, 2016 10:51
== END ==
LOC: CARD 07:50
PROVIDERS: ATTEND Physician Assistant
DX: I50.9 Heart failure, unspecified (principal); I10 Essential (primary) hypertension; E78.2 Mixed hyperlipidemia; R00.2 Palpitations
CPT/HCPCS: 93660

== ENCOUNTER → 2016-09-28 | Outpatient (CLI) | payer MEDICAID ==
[~2016-09-28] MED LIST changes: -ATROPINE INJECTION 1 MG/10 ML SYR (ABBOTT) ONE; -NS IV 1000 ML 1,000 ML ONE
== END ==
LOC: PREOP 05:40
PROVIDERS: ATTEND Surgery Pediatric Surgery
DX: Z01.818 Encounter for other preprocedural examination (principal); K31.84 Gastroparesis; R19.4 Change in bowel habit; R11.0 Nausea

== ENCOUNTER → 2016-10-05 | Outpatient (CLI) | payer MEDICAID ==
--- NOTE | 2016-10-05 17:03 | Diagnostic Imaging Report ---
PROCEDURE: US left lower extremity venous. TECHNIQUE: Multiple real-time grayscale images were obtained over the left lower extremity in various projections. Additional duplex Doppler and color Doppler images were also obtained. INDICATION: Left leg pain. FINDINGS: The veins in the left leg were compressible and had normal spontaneous and augmented flow. IMPRESSION: Negative venous Doppler left leg. Dictated by: Dictated on workstation # [id number]
== END ==
LOC: RAD 16:35
PROVIDERS: ATTEND Nurse Practitioner Family
DX: M79.662 Pain in left lower leg (principal)

== ENCOUNTER 2016-10-10 05:32 | Outpatient (CLI) | payer MEDICAID ==
[~2016-10-10] VITALS: Ht 157.5 cm; Wt 116.1 kg
== END 2016-10-10 09:28 ==
LOC: PREOP 05:32
PROVIDERS: ATTEND Surgery Pediatric Surgery
DX: Z01.818 Encounter for other preprocedural examination (principal); R19.4 Change in bowel habit; K31.84 Gastroparesis

== ENCOUNTER 2016-12-20 09:00 | Outpatient (CLI) | payer MEDICAID ==
[~2016-12-20] VITALS: Ht 157.5 cm; Wt 116.1 kg
[~2016-12-20 09:00] MED LIST changes: +TOPI50TA37 PO
[2016-12-20] MEDS ORDERED: VARE1TAB22 PO (09:30)
[2016-12-20] MEDS ORDERED: TIZA4TAB3 PO (09:30)
[2016-12-21] MEDS ORDERED: PANT40SU PO (09:02)
[2016-12-21] MEDS ORDERED: ALPR1TAB2 PO (09:05)
[2016-12-21] MEDS ORDERED: SUCR1TAB36 PO (13:58)
[2016-12-21] MEDS ORDERED: DEXL60CA PO (13:58)
== END 2016-12-20 10:52 ==
LOC: PREOP 09:00
PROVIDERS: ATTEND Surgery
DX: Z01.818 Encounter for other preprocedural examination (principal); R19.5 Other fecal abnormalities; R11.0 Nausea; K31.84 Gastroparesis

== ENCOUNTER → 2016-12-21 | Day surgery (SDC) | payer MEDICAID ==
[~2016-12-21] VITALS: Ht 157.5 cm; Wt 116.1 kg
[~2016-12-21] MED LIST changes: +ALPR1TAB2 PO; +DEXL60CA PO; +FLUMAZENIL (ROMAZICON) 0.1 MG/ML 5 ML VIAL INJ PRN; +HURRICAINE EXT TUBE (BENZOCAINE) ONE; +HURRICAINE EXT TUBE (BENZOCAINE) XX PRN; +LIDOCAINE JELLY 2% (XYLOCAINE) 5 ML TUBE MM PRN; +LIDOCAINE JELLY 2% (XYLOCAINE) 5 ML TUBE ONE; +MIDAZOLAM 2 MG/2 ML (VERSED) VIAL ONE; +NALOXONE 0.4 MG/ML 1 ML (NARCAN) VIAL IVP PRN; +NS IV 500 ML 500 ML IV PRN; +NS IV 500 ML 500 ML ONE; +ONDANSETRON 4 MG/2 ML (SDV) Z0FRAN IV PRN; +PANT40SU PO; +PROMETHAZINE INJ 25 MG/ML (PHENERGAN) AMP IVP PRN; +PROMETHAZINE INJ 25 MG/ML (PHENERGAN) AMP ONE; +SUCR1TAB36 PO; +TIZA4TAB3 PO; +fentaNYL INJECTION 100 MCG/2 ML AMP ONE; +morphine INJ 10 MG/ML 1ML (SYR OR VIAL) IV PRN; +proPOfol 200 MG/20 ML (DIPRIVAN) VIAL IV ONE
--- OUTSIDE RECORDS SUMMARY | 2016-12-21 08:10 | XMS REPORT | Continuity of Care Document ---
Author Author [facility] Organization [facility] Address Unknown Phone Unavailable Care Team Providers Care Weigh And Charge Worker Name Role Phone Richard Maria PCP [phone] Source Comments Some departments are not documenting in the electronic medical record. If you do not see the information that you expected, contact Release of Information in the Health Information Management department at [phone] for further assistance in locating additional records.[facility] Active Allergies and Adverse Reactions Not on File Current Medications Not on file Active Problems Not on file Social History Tobacco Use Types Packs/Day Years Used Date Never Assessed Plan of Care Health Maintenance Due Date Last Done Comments Physical (Comprehensive) 1976 Exam Pertussis Vaccine 1980 Tetanus Vaccine 1986 Cervical Cancer Screening 1990 Breast Cancer Screening 2009 Influenza Vaccine 02/24/2017 Results from Last 3 Months Not on file
--- OUTSIDE RECORDS SUMMARY | 2016-12-21 08:11 | XMS REPORT ---
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 Active Problem Primary insomnia F51.01 Active Problem Type 2 diabetes mellitus with foot ulcer E11.621 Active Problem Screening breast examination Z12.39 Active Problem Essential hypertension I10 Active Problem Acquired hypothyroidism E03.9 Active Problem Type 2 diabetes mellitus with diabetic autonomic (poly)neuropathy E11.43 Active Problem Congestive heart failure, unspecified congestive heart failure chronicity, unspecified congestive heart failure type I50.9 Active Problem Anxiety F41.9 Active Problem Nodule of chest wall R22.2 Active Problem Gastroparesis K31.84 Active Medications Medication Code System Code Instructions Start Date End Date Status Dosage Humulin R U-500 (Concentrated) [facility] [address]-93 500 UNIT/ML Subcutaneous 3 times a day with meals January 07, 2016 inject up to 20 units per sliding scale Results No Known Results Summary Purpose [employer] Submission
--- OUTSIDE RECORDS SUMMARY | 2016-12-21 08:12 | XMS REPORT ---
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 Active Problem Screening breast examination Z12.39 Active Problem Recurrent major depressive disorder, remission status unspecified F33.9 Active Problem Type 2 diabetes mellitus with diabetic autonomic (poly)neuropathy E11.43 Active Problem Congestive heart failure, unspecified congestive heart failure chronicity, unspecified congestive heart failure type I50.9 Active Problem Primary insomnia F51.01 Active Problem Type 2 diabetes mellitus with foot ulcer E11.621 Active Problem Nodule of chest wall R22.2 Active Problem Gastroparesis K31.84 Active Problem Epigastric pain R10.13 Active Problem Anxiety F41.9 Active Problem 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
--- OUTSIDE RECORDS SUMMARY | 2016-12-21 08:12 | XMS REPORT ---
Author Author MIRZA MARTINO [facility] [employer] Address Unknown Phone Unavailable Care Team Providers Care Sports Medicine Physician Name Role Phone MIRZA MARTINO CP Unavailable Allergies, Adverse Reactions, Alerts Substance Reaction Event Type Compazine Info Not Available Drug Allergy Zofran Info Not Available Drug Allergy Tizanidine HCl seizure Drug Allergy Sulfamethoxazole-Trimethoprim Info Not Available Drug Allergy Metoclopramide HCl Info Not Available Drug Allergy Iodine Info Not Available Drug Allergy Hydrocodone-Acetaminophen Info Not Available Drug Allergy Codeine Sulfate Info Not Available Drug Allergy Acetaminophen Info Not Available Drug Allergy IV Dye Info Not Available Non Drug Allergy Problems Problem Type Condition Code Onset Dates Condition Status Problem Type 2 diabetes mellitus with diabetic autonomic (poly)neuropathy E11.43 Active Assessment Tobacco abuse Z72.0 Active Problem Type 2 diabetes mellitus with foot ulcer E11.621 Active Assessment Bronchitis J40 Active Problem Primary insomnia F51.01 Active Problem 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 Active Problem Screening breast examination Z12.39 Active Problem Thrush B37.0 Active Problem Bronchitis J40 Active Problem Anxiety F41.9 Active Assessment Thrush B37.0 Active Problem Drowsiness R40.0 Active Assessment Primary insomnia F51.01 Active Problem 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 Problem Recurrent major depressive disorder, remission status unspecified F33.9 Active Problem Tobacco abuse Z72.0 Active Problem Type 2 diabetes mellitus with unspecified complications E11.8 Active Problem Epigastric pain R10.13 Active Problem 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 [address]-19 100 UNIT/ML Subcutaneous Once a day at bedtime 75 units Levothyroxine Sodium [facility] [address]-49 75 MCG Orally Once a day 1 tablet Tylenol [facility] [address]-32 500 MG/15ML Orally Once a day @ HS 2 tablets Gabapentin [facility] [address]-29 800 MG Orally 3 times a day 1 tablet Seroquel XR [facility] [id number] 50MG TAKE TWO TABLETS BY MOUTH ONCE DAILY AT BEDTIME Azithromycin [facility] [address]-66 250 MG Orally Once a day May 11, 2016 May 16, 2016 2 tablets on the first day, then 1 tablet daily for 4 days Furosemide [facility] [address]-62 20 mg Orally Once a day 1 tablet Luis Fernando Contour Test [facility] [address]-98 - In Vitro 3 times a day Jan 29, 2016 as directed Benadryl Allergy [facility] [address]-67 25 MG Orally Once a day at bedtime 2 tablet as needed Promethazine HCl [facility] [address]-11 25 MG TAKE ONE TABLET BY MOUTH EVERY 6 HOURS NEEDED Zantac [facility] [address]-75 150 MG Orally twice a day 1 tablet Losartan Potassium-HCTZ [facility] [address]-92 100-25 MG Orally Once a day 1 tablet Chantix [facility] [address]-29 0.5 MG Orally Once a day x 3 days then bid AprJun 10, 2016 1 tablet PredniSONE [facility] [address]-84 20 mg Orally Once a day May 11, 2016 May 16, 2016 1 tablet Insulin Syringe [facility] 8326-071681 31G X 5/16 not defined Atenolol [facility] [address]-72 50 mg Orally Once a day 2 tablet Temazepam [facility] [address]-70 30 MG Orally Once a day 1 capsule at bedtime as needed Oxygen NDC 0 at bedtime 3L nasal canal Nystatin [facility] [address]-68 961548 UNIT/GM Externally Twice a day 1 to affected area Pantoprazole Sodium [facility] [address]-51 40 mg Orally Once a day 1 tablet Alprazolam [facility] [address]-90 1 MG Orally Three times a day must last 28 days 1 tablet Nystatin [facility] [address]-25 646473 UNIT/ML Mouth/Throat Four times a day Apr 06, 2016 4 ml Humulin R U-500 (Concentrated) [facility] [address]-56 500 UNIT/ML Subcutaneous 3 times a day with meals 45 units or per sliding scale Escitalopram Oxalate [facility] [address]-67 20 mg Orally Once a day 1 tablet Diflucan [facility] [address]-16 100 MG Orally once daily May 11, 2016 May 21, 2016 1 tablet Procedures Procedure Coding System Code Date Office Visit, Est Pt., Level 4 CPT-4 15985 May 11, 2016 Vital Signs Date/Time: May 11, 2016 Cardiac Monitoring Heart Rate 78 bpm Weight 255.5 lbs Height 62 in BMI 46.73 Index Blood Pressure Diastolic 76 mmHg Blood Pressure Systolic 112 mmHg Results No Known Results Summary Purpose [employer] Submission
--- OUTSIDE RECORDS SUMMARY | 2016-12-21 08:13 | XMS REPORT ---
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 Active Problem Recurrent major depressive disorder, remission status unspecified F33.9 Active Problem Type 2 diabetes mellitus with unspecified complications E11.8 Active Problem Primary insomnia F51.01 Active Problem Type 2 diabetes mellitus with foot ulcer E11.621 Active Problem 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 Active Problem Screening breast examination Z12.39 Active Problem Anxiety F41.9 Active Problem Epigastric pain R10.13 Active Problem 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
--- OUTSIDE RECORDS SUMMARY | 2016-12-21 08:13 | XMS REPORT ---
Author Author [facility] Medical Staff Organization [facility] Address [address] [place], [place] [address] Phone [phone] Care Team Providers Care Election Watcher Name Role Phone MEAGAN FOSTER PP [phone] Summary purpose CCDA Sent to [facility] Chief Complaint and Reason for Visit Admit Diagnosis 1 OTHR SPECIFIED AFTERCARE Problem list No authorized problems tracked for continuity of care are available for this visit. Encounters No authorized problems tracked for encounter diagnoses are available for this visit. Medications Home Medications Medication Directions Started Status Source Lasix 20 mg tablet 1 tablet Oral -Daily Current gabapentin 600 mg tablet 1 tablet oral 4 times daily Current temazepam 30 mg capsule 1 tablet Oral At bed time Current Humalog 100 unit/mL Sub-Q 25 units SubQ 3 times daily Current atenolol 50 mg tablet 1 1/2 tablet Oral -Daily 1 1/2 tabs daily Current Flexeril 10 mg tablet 1 tablet Oral 3 times daily Current MS Contin 15 mg tablet,extended release 1 tablet oral 2 times per day Current Nitrostat 0.4 mg sublingual tablet 1 tablet SL See medication notes every 15 min x 3 for chest pain Current levothyroxine 25 mcg capsule 1 tablet oral -Daily Current Percocet 10 mg-325 mg tablet 1 tablet oral As Needed Every 6 Hours Current Hyzaar 100 mg-25 mg tablet 1 tablet oral -Daily Current Cambia 50 mg oral powder packet 1 units oral See medication notes as needed for migraine Current Carafate 1 gram tablet 1 tablet oral 4 times daily Current Levemir Flexpen 100 unit/mL (3 mL) solution subcutaneous insulin pen 35 units subQ 2 times per day Current Protonix 40 mg tablet,delayed release 1 tablet oral -Daily Current Zantac 150 mg tablet 1 tablet oral 2 times per day Current Xanax 0.5 mg tablet 1 tablet oral 3 times daily as needed Current Lexapro 20 mg tablet 1 tablet oral -Daily Current albuterol sulfate 2.5 mg/3 mL (0.083 %) solution for nebulization 1 Ampule inhl As Needed Every 6 Hours Current Lotrisone 1 %-0.05 % topical cream 1 units top 2 times per day Current Allergies, adverse reactions, alerts Allergen Category Ingredient Status Reaction Severity Onset Sulfa(Sulfonamide Antibiotics) Drug Sulfa(Sulfonamide Antibiotics) Active Zofran Drug Zofran Active Zofran Drug ondansetron Active Compazine Drug Compazine Active Compazine Drug Prochlorperazine Active Codeine Drug Codeine Active IV Dye, Iodine Containing Contrast Media Drug IV Dye, Iodine Containing Contrast Media Active Immunizations No immunizations recorded for this patient visit Relevant diagnostic tests and/or laboratory data No authorized results are available for this patient visit History of procedures Procedure Code Code Type Description Date Performed Performing Physician [id number] CPT-4 IRRIG DRUG DELIVERY DEVICE 02-06-2015 MEAGAN ALVARADO [id number] CPT-4 INJ HEPARIN SODIUM PER 10 U 02-06-2015 MEAGAN ALVARADO Functional status No functional or cognitive status observations are available for this visit. Vital signs Type Value Date Respirations 18 [id number]:17 Pulse 93 :17 O2 Saturation 95% 43-89-483357:17 Systolic Blood Press 141mm/HG 64-47-951634:17 Diastolic Blood Pres 64mm/HG 61-82-609386:17 Temperature (Fahr) 98.3Degrees :17 Social history No Social History or smoking status observations were recorded for this visit. ( Unknown if ever smoked.) Treatment Plan No treatment plan text is available for this visit. Hospital discharge instructions No discharge instruction text is available for this visit.
--- OUTSIDE RECORDS SUMMARY | 2016-12-21 08:13 | XMS REPORT | Clinical Summary ---
Author Author Admin, BRANDON [facility] Address Unknown Phone Allergies, Adverse Reactions, Alerts Allergy Name Reaction Description Start Date Severity Status Provider IVP DYE hives, shortness of breath Critical Active Arnold Ibarra MD ZOFRAN hives Critical Active Arnold Ibarra MD HYDROCODONE vomiting Critical Active Arnold Ibarra MD CODEINE vomiting and hives Critical Active Arnold Ibarra MD COMPAZINE vomiiting 1999 Critical Active Arnold Ibarra MD SULFA hives Critical Active Arnold Ibarra MD Conditions or Problems Problem Name Problem Code Onset Date Status Entry Date Provider Comment Standard Description Annotate CORONARY HEART DISEASE 414.00 Active Yael Araujo Coronary atherosclerosis of unspecified type of vessel, la posta or graft DIABETES, TYPE 2 250.00 Active Yael Araujo Diabetes mellitus without mention of complication, type II or unspecified type, not stated as uncontrolled ANXIETY DISORDER 300.00 Active Yael Araujo Anxiety state, unspecified FH DIABETES V18.0 Active Arnold Ibarra MD Family history of diabetes mellitus FH STROKE V17.1 Active Arnold Ibarra MD Family history of stroke (cerebrovascular) ABDOMINAL PAIN, EPIGASTRIC 789.06 Active Arnold Ibarra MD Abdominal pain, epigastric G I BLEED 578.9 Active Arnold Ibarra MD Hemorrhage of gastrointestinal tract, unspecified HEMATURIA 599.70 Active Priscila Valera MD Hematuria, unspecified Dysuria 788.1 Active Bismark Landa MD Dysuria Neuropathy 355.9 Active Bismark Landa MD Mononeuritis of unspecified site Medication List Medication Instructions Start Date Stop Date Generic Name NDC Status Provider Patient Instruction LASIX 20 MG TABS Take 1 tablet daily FUROSEMIDE 71850490640 Active Bismark Landa MD Active HYZAAR 100-25 MG TABS Take 1 tablet daily LOSARTAN POTASSIUM- HCTZ 69664517614 Active Bismark Landa MD Active SYNTHROID 25 MCG TABS Take 1 tablet daily LEVOTHYROXINE SODIUM 01390061025 Active Bismark Landa MD Active ZANTAC 150 MG TABS Take 1 tablet BID RANITIDINE HCL 43877514600 Active Bismark Landa MD Active PERCOCET 10-325 MG TABS Take 1 tablet every 8 hours as needed for pain. 11/26 OXYCODONE-ACETAMINOPHEN 76350087847 Active Bismark Landa MD Active MORPHINE SULFATE ER 15 MG CR-TABS Take 1 tablet BID MORPHINE SULFATE 74473635087 Active Bismark Landa MD Active CELEXA 20 MG TABS Take 1 tablet BID CITALOPRAM HYDROBROMIDE 10111969103 Active Bismark Landa MD Active GABAPENTIN 600 MG TABS 1 by mouth QID GABAPENTIN 17902531892 Active Bismark Landa MD Active CLARITHROMYCIN 500 MG TABS by mouth twice a day CLARITHROMYCIN 12129586981 No Longer Active Bismark Landa MD Active TRAZODONE HCL 100 MG TABS 1/2- 1 at bedtime TRAZODONE HCL 58141145678 No Longer Active Bismark Landa MD Active AMOXICILLIN 500 MG TABS 2 by mouth daily AMOXICILLIN 72370259621 No Longer Active Bismark Landa MD Active HYDROCODONE-ACETAMINOPHEN 7.5-325 MG TABS 1 by mouth every 6 hours as needed HYDROCODONE-ACETAMINOPHEN 70313235846 No Longer Active Bismark Landa MD Active HYDROCHLOROTHIAZIDE 25 MG TABS Take one by mouth daily HYDROCHLOROTHIAZIDE 70494031328 No Longer Active Bismark Landa MD Active VERAPAMIL HCL CR 240 MG CR-TABS Take one by mouth daily VERAPAMIL HCL 70122166189 No Longer Active Bismark Landa MD Active ALPRAZOLAM 0.5 MG TABS Take 1 tablet TID ALPRAZOLAM 47774183630 Active Bismark Landa MD Active HYDROCODONE-ACETAMINOPHEN 10-325 MG TABS take at bedtime HYDROCODONE-ACETAMINOPHEN 62714196985 No Longer Active Bismark Landa MD Active SUCRALFATE 1 GM TABS Take one by mouth four times daily, morning, noon, early evening and bedtime. SUCRALFATE 67725767936 No Longer Active Bismark Landa MD Active KLOR-CON 10 10 MEQ CR-TABS Take one by mouth daily POTASSIUM CHLORIDE 42072091220 No Longer Active Bismark Landa MD Active METOLAZONE 5 MG TABS Take one by mouth daily METOLAZONE 01553703341 No Longer Active Bismark Landa MD Active TEMAZEPAM 30 MG CAPS Take 1 tablet at bed time. TEMAZEPAM 06316170510 Active Bismark Landa MD Active LANTUS 100 UNIT/ML SOLN 40 units subq at bedtime INSULIN GLARGINE 30319229951 Active Bismark Landa MD Active HUMALOG 100 UNIT/ML SOLN 25 units subq before each meal INSULIN LISPRO (HUMAN) 35265174627 Active Priscila Valera MD Active OMEPRAZOLE 40 MG CPDR Take one by mouth daily OMEPRAZOLE 36527531914 Active Arnold Ibarra MD Active CYCLOBENZAPRINE HCL 10 MG TABS Take one by mouth daily CYCLOBENZAPRINE HCL 65195174560 Active Arnold Ibarra MD Active ATENOLOL 50 MG TABS 1 1/2 daily ATENOLOL 92938315634 Active Arnold Ibarra MD Active PROMETHAZINE HCL 25 MG TABS 1 tab by mouth every 6 hours as needed for nausea/ vomiting PROMETHAZINE HCL 46410832395 Active Arnold Ibarra MD Active METOLAZONE 5 MG TABS Take one by mouth daily METOLAZONE 5 MG TABS 895733 METOLAZONE Inactive KLOR-CON 10 10 MEQ CR-TABS Take one by mouth daily KLOR-CON 10 10 MEQ CR-TABS POTASSIUM CHLORIDE Inactive SUCRALFATE 1 GM TABS Take one by mouth four times daily, morning, noon, early evening and bedtime. SUCRALFATE 1 GM TABS 426417 SUCRALFATE Inactive HYDROCODONE-ACETAMINOPHEN 10-325 MG TABS take at bedtime HYDROCODONE-ACETAMINOPHEN 10-325 MG TABS 380691 HYDROCODONE-ACETAMINOPHEN Inactive VERAPAMIL HCL CR 240 MG CR-TABS Take one by mouth daily VERAPAMIL HCL CR 240 MG CR-TABS VERAPAMIL HCL Inactive HYDROCHLOROTHIAZIDE 25 MG TABS Take one by mouth daily HYDROCHLOROTHIAZIDE 25 MG TABS 336518 HYDROCHLOROTHIAZIDE Inactive HYDROCODONE-ACETAMINOPHEN 7.5-325 MG TABS 1 by mouth every 6 hours as needed HYDROCODONE-ACETAMINOPHEN 7.5-325 MG TABS 300018 HYDROCODONE-ACETAMINOPHEN Inactive AMOXICILLIN 500 MG TABS 2 by mouth daily AMOXICILLIN 500 MG TABS 958807 AMOXICILLIN Inactive TRAZODONE HCL 100 MG TABS 1/2- 1 at bedtime TRAZODONE HCL 100 MG TABS 103641 TRAZODONE HCL Inactive CLARITHROMYCIN 500 MG TABS by mouth twice a day CLARITHROMYCIN 500 MG TABS 207316 CLARITHROMYCIN Inactive Diagnostic Results Date Name Value Unit Range Description Lab Report: UADIP W/MICRO, AUTO - Chemistry protein, total urine random Negative mg/dL Negative RBC, urine, dipstick Negative Negative Lab Report: UADIP W/MICRO, AUTO - Urinalysis urobilinogen, urine, semiquantitative (dipstick) 0.2 Normal leukocyte esterase, urine, by dipstick Negative Negative nitrite, urine, semiquantitative Negative Negative glucose, urine, semiquantitative 3+ Negative ketones, urine, by test strip Negative Negative bilirubin, urine Negative Negative urine color Yellow Colorless;Lightyellow;Straw;Yellow appearance, urine Clear Clear specific gravity, urine 1.015 1.000-1.030 pH, urine, semiquantitative 5.5 5.0-8.5 Encounters Code Encounter Date Provider Facility CPT-76914 Level 4 Est. Patient 14:58:44 CDT Bismark Landa MD [facility] CPT-35875 Level 4 New Patient 15:17:54 CDT Priscila Valera MD [facility] CPT-39426 Level 2 Est. Patient 16:51:13 CDT Arnold Ibarra MD [facility] Procedures Code Procedure Name Date Entry Date Standard Description CPT-57690 Cystoscopy 15:17:54 CDT
--- OUTSIDE RECORDS SUMMARY | 2016-12-21 08:13 | XMS REPORT ---
Author Author MIRZA MARTINO [facility] Address [address] [place] [address] Care Team Providers Care Supply Coordinator Name Role Phone MIRZA MARTINO Unavailable PROBLEMS Type Condition ICD9-CM Code [id number] Code Onset Dates Condition Status SNOMED Code Problem Acquired hypothyroidism E03.9 Active 765024747 Problem Congestive heart failure, unspecified congestive heart failure chronicity, unspecified congestive heart failure type I50.9 Active 42653479 Problem Essential hypertension I10 Active 08297193 Problem Recurrent major depressive disorder, remission status unspecified F33.9 Active 92211681 Problem 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 Active 44783665 Problem Type 2 diabetes mellitus with foot ulcer E11.621 Active 7114194355946 Problem Type 2 diabetes mellitus with diabetic autonomic (poly)neuropathy E11.43 Active 181204906 Problem Screening breast examination Z12.39 Active 870244501 Problem Primary insomnia F51.01 Active 7150017 Problem Gastroparesis K31.84 Active 039543903 Problem Epigastric pain R10.13 Active 65106789 Problem Anxiety F41.9 Active 89118115 Problem 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 Active 230558385 Problem Nodule of chest wall R22.2 Active 281586134 Problem Chronic pain syndrome G89.4 Active 688384648 ALLERGIES Unknown Allergies SOCIAL HISTORY No smoking Hx information available PLAN OF CARE VITAL SIGNS MEDICATIONS Medication Instructions Dosage Frequency Start Date End Date Duration Status Humulin R U-500 (Concentrated) 500 UNIT/ML Subcutaneous 3 times a day with meals 45 units or per sliding scale Active Levothyroxine Sodium 75 MCG Orally Once a day 1 tablet 24h Active Levemir FlexTouch 100 UNIT/ML Subcutaneous 2 times a day 35 units 12h Active Losartan Potassium-HCTZ 100-25 MG Orally Once a day 1 tablet 24h Active Tresiba FlexTouch 100 UNIT/ML Subcutaneous Once a day at bedtime 75 units Active Zantac 150 MG Orally twice a day 1 tablet 12h 30 day(s) Active Promethazine HCl 25 MG TAKE ONE TABLET BY MOUTH EVERY 6 HOURS NEEDED 15 Active Seroquel XR 50 mg Orally Once a day at HS 2 tablet in the evening 28 days Active Pantoprazole Sodium 40 mg Orally Once a day 1 tablet 24h Active RESULTS No Results PROCEDURES No Known procedures IMMUNIZATIONS No Known Immunizations
--- OUTSIDE RECORDS SUMMARY | 2016-12-21 08:13 | XMS REPORT ---
Author Author [facility] Medical Staff Organization [facility] Address [address] [place], [place] [address] Phone [phone] Care Team Providers Care Pilot Plant Technician Name Role Phone MEAGAN FOSTER PP [phone] Summary purpose CCDA Sent to [facility] Chief Complaint and Reason for Visit No authorized Reason for Visit (Admitting Diagnosis) is available for this visit. Problem list No authorized problems tracked for continuity of care are available for this visit. Encounters No authorized problems tracked for encounter diagnoses are available for this visit. Medications No home medications recorded for this patient visit Allergies, adverse reactions, alerts Allergen Category Ingredient [...] visit Relevant diagnostic tests and/or laboratory data RESULTS CBC 52-25-494409:40:00 Result Normal Range Units WBC 7.85 4.60-10.20 x 103/uL Result Amended on 2014-07-18 at 17:04:36. Previous status was FR. RBC L 3.96 4.04-6.13 x 106/uL Result Amended on 2014-07-18 at 17:04:36. Previous status was FR. Hemoglobin L 11.5 12.2-18.1 g/dl Result Amended on 2014-07-18 at 17:04:36. Previous status was FR. Hematocrit L 36.6 37.7-53.7 % Result Amended on 2014-07-18 at 17:04:36. Previous status was FR. MCV 92.4 80.0-97.0 FL Result Amended on 2014-07-18 at 17:04:36. Previous status was FR. MCH 29.0 27.0-31.2 pg Result Amended on 2014-07-18 at 17:04:36. Previous status was FR. MCHC L 31.4 31.8-35.4 g/dl Result Amended on 2014-07-18 at 17:04:36. Previous status was FR. RDW 13.2 11.6-14.8 % Result Amended on 2014-07-18 at 17:04:36. Previous status was FR. Platelets 278 142-424 x 103/uL Result Amended on 2014-07-18 at 17:04:36. Previous status was FR. MPV 9.8 9.4-12.4 FL Result Amended on 2014-07-18 at 17:04:36. Previous status was FR. Manual Diff Indicated Neutrophil % 51.0 37-80 % Result Amended on 2014-07-18 at 17:04:36. Previous status was FR. Neutrophils 4.01 2.0-6.9 x 103/uL Result Amended on 2014-07-18 at 17:04:36. Previous status was FR. Lymphocyte % 39.4 10-50 % Result Amended on 2014-07-18 at 17:04:36. Previous status was FR. Lymphocytes 3.09 0.6-3.4 x 103/uL Result Amended on 2014-07-18 at 17:04:36. Previous status was FR. Monocyte % 5.5 0-12 % Result Amended on 2014-07-18 at 17:04:36. Previous status was FR. Monocytes 0.43 0.0-1.0 x 103/uL Result Amended on 2014-07-18 at 17:04:36. Previous status was FR. Eosinophil % 3.6 0-7 % Result Amended on 2014-07-18 at 17:04:36. Previous status was FR. Eosinophils 0.28 0-0.7 x 103/uL Result Amended on 2014-07-18 at 17:04:36. Previous status was FR. Basophil % 0.5 0-2 % Result Amended on 2014-07-18 at 17:04:36. Previous status was FR. Basophils 0.04 0.0-0.1 x 103/uL Result Amended on 2014-07-18 at 17:04:36. Previous status was FR. Neutrophils 55.0 Lymphocytes 37.0 Monocytes 3.0 Eosinophils 2.0 Basophils 1.0 Bands 2.0 Other Hematology PLATELET CLUMPING OBSERVED Chemistry Group [id number] Result Normal Range Units Glucose H 259 65-110 mg/dl BUN L 5 7-21 mg/dl Creatinine 0.8 0.7-1.5 mg/dl Sodium L 134 137-145 mmol/L Potassium 3.6 3.6-5.0 mmol/L Chloride L 94 98-107 mmol/L CO2 H 31 22-30 mmol/L BUN/Creatinine Ratio L 6.6 7-25 Ratio Calcium 9.0 8.4-10.2 mg/dl Protein Total 6.7 6.3-8.2 g/dl Albumin 3.6 3.5-5.0 g/dl A/G Ratio 1.2 1.2-2.2 Ratio AST 46 15-46 U/L ALT 41 7-56 U/L ALP 101 38-126 U/L Bilirubin Total 0.7 0.2-1.3 mg/dl Osmolality 266 261-280 mOsm/kg Globulin 3.1 2.4-3.5 g/dL History of procedures No procedures recorded for this patient visit. Functional status No functional or cognitive status observations are available for this visit. Vital signs No authorized vital signs are available for this visit. Social history No Social History or smoking status observations were recorded for this visit. ( Unknown if ever smoked.) Treatment Plan No treatment plan text is available for this visit. Hospital discharge instructions No discharge instruction text is available for this visit.
--- OUTSIDE RECORDS SUMMARY | 2016-12-21 08:14 | XMS REPORT ---
Author Author MIRZA MARTINO Organization [employer] Address Unknown Phone Unavailable Care Team Providers Care Re Recording Mixer Name Role Phone MIRZA MARTINO CP Unavailable Allergies No Known Allergies Problems Problem Type Condition Code Onset Dates Condition Status Problem Essential hypertension I10 Active Problem Type 2 diabetes mellitus with diabetic autonomic (poly)neuropathy E11.43 Active Problem Congestive heart failure, unspecified congestive heart failure chronicity, unspecified congestive heart failure type I50.9 Active Problem 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 manager 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 Active Problem [...] Active Problem Acquired hypothyroidism E03.9 Active Medications No Known Medications Results No Known Results Summary Purpose [employer] Submission
--- OUTSIDE RECORDS SUMMARY | 2016-12-21 08:14 | XMS REPORT ---
Author Author [facility] Medical Staff Organization [facility] Address [address] [place], [place] [address] Phone [phone] Care Team Providers Care Remittance Clerk Name Role Phone MEAGAN FOSTER PP [phone] MEAGAN FOSTER PP [phone] Summary purpose TRANSITION OF CARE AUTO GENERATION Chief Complaint and Reason for Visit No authorized Reason for Visit (Admitting Diagnosis) is available for this visit. Problem list No authorized problems tracked for continuity of care are available for this visit. Encounters No authorized problems tracked for encounter diagnoses are available for this visit. Medications No medications recorded for this patient visit Allergies, adverse reactions, alerts Allergen Category Ingredient Status Reaction Severity Onset Sulfa(Sulfonamide Antibiotics) Drug Allergy Sulfa(Sulfonamide Antibiotics) Confirmed or Verified Codeine Drug Allergy Codeine Confirmed or Verified Zofran Drug Allergy Zofran Confirmed or Verified Zofran Drug Allergy ondansetron Confirmed or Verified Compazine Drug Allergy Compazine Confirmed or Verified Compazine Drug Allergy Prochlorperazine Confirmed or Verified Lortab Drug Allergy Lortab Confirmed or Verified Lortab Drug Allergy Hydrocodone Confirmed or Verified Lortab Drug Allergy acetaminophen Confirmed or Verified Reglan Drug Allergy Reglan Confirmed or Verified Reglan Drug Allergy metoclopramide Confirmed or Verified IV Dye, Iodine Containing Contrast Media Drug Allergy IV Dye, Iodine Containing Contrast Media Confirmed or Verified TAPE Miscellaneous Allergy TAPE Confirmed or Verified Blister Immunizations No immunizations recorded for this patient visit Relevant diagnostic tests and/or laboratory data RESULTS Blood Cultures [id number]:00:00 Blood Culture Plate Date and Time 08/16/2015 19:03 SourceBLOOD CULTURE REPORT NoGrowth at 1 day. Unless otherwise notified. Final report in 5 Days. Release Date/Time: 08/18/2015 10:00 CULTURE REPORT No growth in 5 days. Release Date/Time: 08/22/2015 09:34 [id number]:00 Blood Culture Plate Date and Time 08/16/2015 19:03 SourceBLOOD CULTURE REPORT NoGrowth at 1 day. Unless otherwise notified. Final report in 5 Days. Release Date/Time: 08/18/2015 10:00 CULTURE REPORT No growth in 5 days. Release Date/Time: 08/22/2015 09:35 Chemistry [id number]:00 Result Normal Range Units Sodium 134 134-145 mEq/l Potassium 3.9 3.5-5.1 mEq/l Chloride L 97 98-107 mEq/l CO2 H 30.5 22-28 mEq/l Glucose H 362 70-105 mg/dl BUN 15 7-18 mg/dl Creatinine H 1.07 0.6-1.0 mg/dl Calcium L 7.7 8.4-10.2 mg/dl TP - Total Protein 6.7 6.0-8.3 g/dl Albumin L 2.7 3.5-5 g/dl Bilirubin - Total 0.8 0.1-1.0 mg/dl AST 34 10-42 IU/L ALT 41 12-65 IU/L ALP H 106 25-72 IU/L Osmolality 283.7 280-300 mOsm/L Albumin/Globulin Ratio 0.7 0-8 Anion GAP L 6.5 8-16 BUN/Creatinine Ratio 14.0 10-20 Estimated GFR L 55 >=60 mL/min/1.7 Lactic Acid H 3.0 0.4-2.0 mmol/L Hematology [id number]:45:00 Result Normal Range Units WBC 5.9 4.8-10.8 103/uL RBC L 3.7 4.2-5.4 106/uL HGB L 10.2 12.0-16.0 g/dl HCT L 32.8 36.9-47.0 % MCV 89.6 81-99 FL MCH 27.9 27-31 pg MCHC L 31.1 33-37 g/dl RDW 13.7 11.5-15.5 % PLT 140 130-400 103/uL MPV 10.4 7.3-10.4 FL Neutro % 59.6 40-70 % Lymph % 32.1 20-40 % [place] % 5.6 0-10.0 % Eos % 1.5 0-7.0 % Baso % 0.3 0-2 % Neutro # 3.5 1.5-7.5 103/uL Lymph # 1.9 0.9-4.0 103/uL [place] # 0.3 0-0.8 103/uL Eos # 0.1 0-0.6 103/uL Baso # 0.0 0-0.1 103/uL Reference Lab (Sendout) [id number]:00 Influenza A & B, Rapid AB Positive Type B Radiology Results [id number]:00 Chest XRay - Port - 1 View PACs Image DATE OF EXAM: Aug 16 2015 RAD [id number] 1 VIEW PORT : RADIOLOGY REPORT DATE OF SERVICE:08/16/15 HISTORY:Low oxygen saturation, cough. PORTABLE AP CHEST19:05 HOURS Comparison is made with 05/26/14. There is a focal density in the right upper lobe measuring 2.5 x 2.0 cm.This has somewhat ill-defined margins. There is patchy infiltrate in the right lung base. The left lung is clear. Heart size and pulmonary vessels are normal. Central venous catheter and port are in place. There is no pleural effusion. IMPRESSION:Patchy right lower lobe density consistent with pneumonia. Small focal density in the right upper lobe is also probably focal infiltrate, although nodule is not excluded. Progress studies are recommended. MD VIRY Bain/alvin08/16/2015 19:29:00 / 08/16/2015 21:57:13 cc:Meagan Patterson NP This document has been electronically Signed by: On: DATE OF EXAM: Aug 16 2015 RAD [id number]-CHEST 1 VIEW PORT : RADIOLOGY REPORT DATE OF SERVICE:08/16/15 HISTORY:Low oxygen saturation, cough. PORTABLE AP CHEST19:05 HOURS Comparison is made with 05/26/14. There is a focal density in the right upper lobe measuring 2.5 x 2.0 cm.This has somewhat ill-defined margins. There is patchy infiltrate in the right lung base. The left lung is clear. Heart size and pulmonary vessels are normal. Central venous catheter and port are in place. There is no pleural effusion. IMPRESSION:Patchy right lower lobe density consistent with pneumonia. Small focal density in the right upper lobe is also probably focal infiltrate, although nodule is not excluded. Progress studies are recommended. MD VIRY Bain/alvin08/16/2015 19:29:08/16/2015 21:57:13 cc:Meagan Patterson EMPLOYMENT MANAGER This document has been electronically Signed by: ARUN NGUYEN MD On: Aug 17 20159:38A Result Amended on 2015-08-17 at 09:38:08. Previous status was CA. [id number]:45:00 Result Normal Range Units MPV 10.4 7.3-10.4 FL History of procedures Procedure Code Code Type Description Date Performed Performing Physician 16407 CPT-4 ROUTINE VENIPUNCTURE 08-16-2015 PATRICIA CHANTAL 23932 CPT-4 ROUTINE VENIPUNCTURE 08-16-2015 PATRICIA CHANTAL 40571 CPT-4 CHEST X-RAY 1 VIEW FRONTAL 08-16-2015 PATRICIA CHANTAL 30407 CPT-4 COMPREHEN METABOLIC PANEL 08-16-2015 PATRICIA CHANTAL 95168 CPT-4 ASSAY OF LACTIC ACID 08-16-2015 PATRICIA CHANTAL 90141 CPT-4 COMPLETE CBC W/AUTO DIFF WBC 08-16-2015 PATRICIA CHANTAL 81914 CPT-4 MYCOPLASMA ANTIBODY 08-16-2015 PATRICIA CHANTAL 26380 CPT-4 BLOOD CULTURE FOR BACTERIA 08-16-2015 PATRICIA CHANTAL 81901 CPT-4 BLOOD CULTURE FOR BACTERIA 08-16-2015 PATRICIA CHANTAL 79023 CPT-4 INFLUENZA DNA AMP PROBE 08-16-2015 PATRICIA CHANTAL 63734 CPT-4 AIRWAY INHALATION TREATMENT 08-16-2015 PATRICIA CHANTAL J1956 CPT-4 LEVOFLOXACIN INJECTION 08-16-2015 PATRICIA CHANTAL J7030 CPT-4 NORMAL SALINE SOLUTION INFUS 08-16-2015 PATRICIA CHANTAL J7030 CPT-4 NORMAL SALINE SOLUTION INFUS 08-16-2015 PATRICIA CHANTAL J7613 CPT-4 ALBUTEROL NON-COMP UNIT 08-16-2015 PATRICIA CHANTAL 54149 CPT-4 EMERGENCY DEPT VISIT 08-16-2015 PATRICIA CHANTAL 65084 CPT-4 EMERGENCY DEPT VISIT 08-16-2015 PATRICIA CHANTAL 88589 CPT-4 THER/PROPH/DIAG INJ IV PUSH 08-16-2015 PATRICIA CHANTAL 05709 CPT-4 HYDRATE IV INFUSION ADD-ON 08-16-2015 PATRICIA CHANTAL Functional status Functional Status Finding Observation Time Abdomen Appearance obese 20-22-730195:30 Abdomen soft 26-78-820636:30 Bowel Sounds present :30 Urination normal 55-95-423007:30 Quality sym/unlabored : Cough productive :30 Secretions yes : Secretion Consist thick :30 Secretion Color green :30 Breath Sounds RUL diminished :07 Breath Sounds RML diminished :07 Breath Sounds RLL diminished :07 Breath Sounds XAVIER diminished :07 Breath Sounds LLL diminished :07 Airway natural :30 Chest Tube no :30 Oxygen yes :00 Oxygen Mask Type nasal cannula :00 Oxygen Flow Rate 2 :00 Temp >100.4 no : Temp <96.8 no :30 Chills with rigors no :30 HR > 90bpm no 82-97-135750:30 Respirations > 20 no :30 Systolic <90 no :30 headache stiff neck no :30 VAD Type catarino-cath 29-83-553484:45 VAD Location L Chest [id number]:45 VAD Site Info new [id number]:45 VAD Site Appearance WNL [id number]:45 VAD Site Color clear 02-81-454489:45 VAD Site Patent yes :45 VAD Dressing Type occlusive [id number]:45 Nursing Note Transferred to [facility] in fair condition. :20 Vital signs Type Value Date Respiration Rate 20breaths per minute :00 Pulse 85beats per minute :00 Oxygen Saturation 99% :00 BP Systolic 98mmHg :00 BP Diastolic 69mmHg :00 Temperature 98.7F :00 Social history Type Value Smoking Status FORMER SMOKER Treatment Plan No treatment plan text is available for this visit. Hospital discharge instructions Dismissal Condition fair Disposition on DC transfered Comment: [facility]
--- OUTSIDE RECORDS SUMMARY | 2016-12-21 08:14 | XMS REPORT | Clinical Summary ---
Author Author Admin, BRANDON Organization [facility] Address Unknown Phone Allergies, Adverse Reactions, Alerts [...] Coronary atherosclerosis of unspecified type of vessel, [place] or graft DIABETES, TYPE 2 250.00 Active [...] MG TABS Take 1 tablet daily FUROSEMIDE 24602233333 Active Bismark Landa MD Active HYZAAR 100-25 MG TABS Take 1 tablet daily [place]AN POTASSIUM- HCTZ 00314714608 Active Bismark Landa MD Active SYNTHROID 25 MCG TABS Take 1 tablet daily LEVOTHYROXINE SODIUM 80657334263 Active Bismark Landa MD Active ZANTAC 150 MG TABS Take 1 tablet BID RANITIDINE HCL 76240424289 Active Bismark Landa MD Active PERCOCET 10-325 MG TABS Take 1 tablet every 8 hours as needed for pain. 11/26 OXYCODONE-ACETAMINOPHEN 82591048688 Active Bismark Landa MD Active MORPHINE SULFATE ER 15 MG CR-TABS Take 1 tablet BID MORPHINE SULFATE 17872237539 Active Bismark Landa MD Active CELEXA 20 MG TABS Take 1 tablet BID CITALOPRAM HYDROBROMIDE 58459662362 Active Bismark Landa MD Active GABAPENTIN 600 MG TABS 1 by mouth QID GABAPENTIN 70169517761 Active Bismark Landa MD Active CLARITHROMYCIN 500 MG TABS by mouth twice a day CLARITHROMYCIN 87018677243 No Longer Active Bismark Landa MD Active TRAZODONE HCL 100 MG TABS 1/2- 1 at bedtime TRAZODONE HCL 66445386699 No Longer Active Bismark Landa MD Active AMOXICILLIN 500 MG TABS 2 by mouth daily AMOXICILLIN 86568479676 No Longer Active Bismark Landa MD Active HYDROCODONE-ACETAMINOPHEN 7.5-325 MG TABS 1 by mouth every 6 hours as needed HYDROCODONE-ACETAMINOPHEN 99105713775 No Longer Active Bismark Landa MD Active HYDROCHLOROTHIAZIDE 25 MG TABS Take one by mouth daily HYDROCHLOROTHIAZIDE 24423660370 No Longer Active Bismark Landa MD Active VERAPAMIL HCL CR 240 MG CR-TABS Take one by mouth daily VERAPAMIL HCL 48912409676 No Longer Active Bismark Landa MD Active ALPRAZOLAM 0.5 MG TABS Take 1 tablet TID ALPRAZOLAM 11055896188 Active Bismark Landa MD Active HYDROCODONE-ACETAMINOPHEN 10-325 MG TABS take at bedtime HYDROCODONE-ACETAMINOPHEN 83453064667 No Longer Active Bismark Landa MD Active SUCRALFATE 1 GM TABS Take one by mouth four times daily, morning, noon, early evening and bedtime. SUCRALFATE 36086072896 No Longer Active Bismark Landa MD Active KLOR-CON 10 10 MEQ CR-TABS Take one by mouth daily POTASSIUM CHLORIDE 43513684844 No Longer Active Bismark Landa MD Active METOLAZONE 5 MG TABS Take one by mouth daily METOLAZONE 02160446400 No Longer Active Bismark Landa MD Active TEMAZEPAM 30 MG CAPS Take 1 tablet at bed time. TEMAZEPAM 17554760228 Active Bismark Landa MD Active LANTUS 100 UNIT/ML SOLN 40 units subq at bedtime INSULIN GLARGINE 64075778673 Active Bismark Landa MD Active HUMALOG 100 UNIT/ML SOLN 25 units subq before each meal INSULIN LISPRO (HUMAN) 25551492613 Active Priscila Valera MD Active OMEPRAZOLE 40 MG CPDR Take one by mouth daily OMEPRAZOLE 60338716916 Active Arnold Ibarra MD Active CYCLOBENZAPRINE HCL 10 MG TABS Take one by mouth daily CYCLOBENZAPRINE HCL 81340613557 Active Arnold Ibarra MD Active ATENOLOL 50 MG TABS 1 1/2 daily ATENOLOL 03330028960 Active Arnold Ibarra MD Active PROMETHAZINE HCL 25 MG TABS 1 tab by mouth every 6 hours as needed for nausea/ vomiting PROMETHAZINE HCL 24694589703 Active Arnold Ibarra MD Active METOLAZONE 5 MG TABS Take one by mouth daily METOLAZONE 5 MG TABS 739356 METOLAZONE Inactive KLOR-CON 10 10 MEQ CR-TABS Take one by mouth daily KLOR-CON 10 10 MEQ CR-TABS POTASSIUM CHLORIDE Inactive SUCRALFATE 1 GM TABS Take one by mouth four times daily, morning, noon, early evening and bedtime. SUCRALFATE 1 GM TABS 192437 SUCRALFATE Inactive HYDROCODONE-ACETAMINOPHEN 10-325 MG TABS take at bedtime HYDROCODONE-ACETAMINOPHEN 10-325 MG TABS 934016 HYDROCODONE-ACETAMINOPHEN Inactive VERAPAMIL HCL CR 240 MG CR-TABS Take one by mouth daily VERAPAMIL HCL CR 240 MG CR-TABS VERAPAMIL HCL Inactive HYDROCHLOROTHIAZIDE 25 MG TABS Take one by mouth daily HYDROCHLOROTHIAZIDE 25 MG TABS 449538 HYDROCHLOROTHIAZIDE Inactive HYDROCODONE-ACETAMINOPHEN 7.5-325 MG TABS 1 by mouth every 6 hours as needed HYDROCODONE-ACETAMINOPHEN 7.5-325 MG TABS 794678 HYDROCODONE-ACETAMINOPHEN Inactive AMOXICILLIN 500 MG TABS 2 by mouth daily AMOXICILLIN 500 MG TABS 095038 AMOXICILLIN Inactive TRAZODONE HCL 100 MG TABS 1/2- 1 at bedtime TRAZODONE HCL 100 MG TABS 291825 TRAZODONE HCL Inactive CLARITHROMYCIN 500 MG TABS by mouth twice a day CLARITHROMYCIN 500 MG TABS 741106 CLARITHROMYCIN Inactive Vital Signs Date Name Value Unit Range Description blood pressure, diastolic - 8462-4 90 mm[Hg] BP benson blood pressure, systolic - 8480-6 137 mm[Hg] BP sys pulse rate E&M - 8867-4 105 /min Heart rate temperature E&M 99.3 [degF] Body temperature weight E&M - 3141-9 265.6 [lb_av] Weight Measured Diagnostic Results Date Name Value Unit Range [...] 5.0-8.5 Encounters Code Encounter Date Provider Facility CPT-22102 Level 4 Est. Patient 14:58:44 CDT Bismark Landa MD [facility] CPT-44677 Level 4 New Patient 15:17:54 CDT Priscila Valera MD [facility] CPT-22209 Level 2 Est. Patient 16:51:13 CDT Arnold Ibarra MD [facility] Procedures Code Procedure Name Date Entry Date Standard Description CPT-61557 Cystoscopy 15:17:54 CDT
--- OUTSIDE RECORDS SUMMARY | 2016-12-21 08:14 | XMS REPORT | Clinical Summary ---
Author Author Admin, BRANDON Organization [facility] Address Unknown Phone Allergies, Adverse Reactions, [...] Coronary atherosclerosis of unspecified type of vessel, [place] or graft DIABETES, TYPE 2 250.00 Active [...] MG TABS Take 1 tablet daily FUROSEMIDE 81526369781 Active Bismark Landa MD Active HYZAAR 100-25 MG TABS Take 1 tablet daily [place] POTASSIUM- HCTZ 96380349850 Active Bismark Landa MD Active SYNTHROID 25 MCG TABS Take 1 tablet daily LEVOTHYROXINE SODIUM 38034806148 Active Bismark Landa MD Active ZANTAC 150 MG TABS Take 1 tablet BID RANITIDINE HCL 86445458887 Active Bismark Landa MD Active PERCOCET 10-325 MG TABS Take 1 tablet every 8 hours as needed for pain. 11/26 OXYCODONE-ACETAMINOPHEN 78464312468 Active Bismark Landa MD Active MORPHINE SULFATE ER 15 MG CR-TABS Take 1 tablet BID MORPHINE SULFATE 44490244161 Active Bismark Landa MD Active CELEXA 20 MG TABS Take 1 tablet BID CITALOPRAM HYDROBROMIDE 96160961686 Active Bismark Landa MD Active GABAPENTIN 600 MG TABS 1 by mouth QID GABAPENTIN 49466911534 Active Bismark Landa MD Active CLARITHROMYCIN 500 MG TABS by mouth twice a day CLARITHROMYCIN 75252090733 No Longer Active Bismark Landa MD Active TRAZODONE HCL 100 MG TABS 1/2- 1 at bedtime TRAZODONE HCL 25452068125 No Longer Active Bismark Landa MD Active AMOXICILLIN 500 MG TABS 2 by mouth daily AMOXICILLIN 76791157213 No Longer Active Bismark Landa MD Active HYDROCODONE-ACETAMINOPHEN 7.5-325 MG TABS 1 by mouth every 6 hours as needed HYDROCODONE-ACETAMINOPHEN 22050022390 No Longer Active Bismark Landa MD Active HYDROCHLOROTHIAZIDE 25 MG TABS Take one by mouth daily HYDROCHLOROTHIAZIDE 23982951201 No Longer Active Bismark Landa MD Active VERAPAMIL HCL CR 240 MG CR-TABS Take one by mouth daily VERAPAMIL HCL 40446352504 No Longer Active Bismark Landa MD Active ALPRAZOLAM 0.5 MG TABS Take 1 tablet TID ALPRAZOLAM 92703433180 Active Bismark Landa MD Active HYDROCODONE-ACETAMINOPHEN 10-325 MG TABS take at bedtime HYDROCODONE-ACETAMINOPHEN 71427679098 No Longer Active Bismark Landa MD Active SUCRALFATE 1 GM TABS Take one by mouth four times daily, morning, noon, early evening and bedtime. SUCRALFATE 37615526983 No Longer Active Bismark Landa MD Active KLOR-CON 10 10 MEQ CR-TABS Take one by mouth daily POTASSIUM CHLORIDE 09673334524 No Longer Active Bismark Landa MD Active METOLAZONE 5 MG TABS Take one by mouth daily METOLAZONE 84894880025 No Longer Active Bismark Landa MD Active TEMAZEPAM 30 MG CAPS Take 1 tablet at bed time. TEMAZEPAM 99449012252 Active Bismark Landa MD Active LANTUS 100 UNIT/ML SOLN 40 units subq at bedtime INSULIN GLARGINE 06197278069 Active Bismark Landa MD Active HUMALOG 100 UNIT/ML SOLN 25 units subq before each meal INSULIN LISPRO (HUMAN) 87947189054 Active Priscila Valera MD Active OMEPRAZOLE 40 MG CPDR Take one by mouth daily OMEPRAZOLE 61354435238 Active Arnold Ibarra MD Active CYCLOBENZAPRINE HCL 10 MG TABS Take one by mouth daily CYCLOBENZAPRINE HCL 53773433657 Active Arnold Ibarra MD Active ATENOLOL 50 MG TABS 1 1/2 daily ATENOLOL 20201864759 Active Arnold Ibarra MD Active PROMETHAZINE HCL 25 MG TABS 1 tab by mouth every 6 hours as needed for nausea/ vomiting PROMETHAZINE HCL 44832229272 Active Arnold Ibarra MD Active METOLAZONE 5 MG TABS Take one by mouth daily METOLAZONE 5 MG TABS 388031 METOLAZONE Inactive KLOR-CON 10 10 MEQ CR-TABS Take one by mouth daily KLOR-CON 10 10 MEQ CR-TABS POTASSIUM CHLORIDE Inactive SUCRALFATE 1 GM TABS Take one by mouth four times daily, morning, noon, early evening and bedtime. SUCRALFATE 1 GM TABS 538727 SUCRALFATE Inactive HYDROCODONE-ACETAMINOPHEN 10-325 MG TABS take at bedtime HYDROCODONE-ACETAMINOPHEN 10-325 MG TABS 744387 HYDROCODONE-ACETAMINOPHEN Inactive VERAPAMIL HCL CR 240 MG CR-TABS Take one by mouth daily VERAPAMIL HCL CR 240 MG CR-TABS VERAPAMIL HCL Inactive HYDROCHLOROTHIAZIDE 25 MG TABS Take one by mouth daily HYDROCHLOROTHIAZIDE 25 MG TABS 193244 HYDROCHLOROTHIAZIDE Inactive HYDROCODONE-ACETAMINOPHEN 7.5-325 MG TABS 1 by mouth every 6 hours as needed HYDROCODONE-ACETAMINOPHEN 7.5-325 MG TABS 121531 HYDROCODONE-ACETAMINOPHEN Inactive AMOXICILLIN 500 MG TABS 2 by mouth daily AMOXICILLIN 500 MG TABS 057493 AMOXICILLIN Inactive TRAZODONE HCL 100 MG TABS 1/2- 1 at bedtime TRAZODONE HCL 100 MG TABS 456127 TRAZODONE HCL Inactive CLARITHROMYCIN 500 MG TABS by mouth twice a day CLARITHROMYCIN 500 MG TABS 866265 CLARITHROMYCIN Inactive Encounters Code Encounter Date Provider Facility CPT-60364 Level 4 Est. Patient 14:58:44 CDT Bismark Landa MD [facility] CPT-32520 Level 4 New Patient 15:17:54 CDT Priscila Valera MD [facility] CPT-87013 Level 2 Est. Patient 16:51:13 CDT Arnold Ibarra MD [facility] Procedures Code Procedure Name Date Entry Date Standard Description CPT-23627 Cystoscopy 15:17:54 CDT
--- OUTSIDE RECORDS SUMMARY | 2016-12-21 08:15 | XMS REPORT | Referral Summary ---
Author Author [facility] Organization [facility] Address Unknown Phone Unavailable Care Team Providers Care Showroom Salesperson Name Role Phone Yisel Patterson PCP Encounter VC Date(s): 04/21/15 - 04/21/15 [facility] [address] [place] [address] [facility] Discharge Diagnosis: Autoimmune diabetes Discharge Disposition: 01-Home or Self Care Attending Physician: Cynthia Antony Admitting Physician: Cynthia Antony Referring Physician: Yisel Patterson POLYMER MATERIALS CONSULTANT Vital Signs Most recent to 1 oldest [Reference Range]: Apical Heart Rate 64 bpm [60-100 bpm] (04/21/15 2:08 PM) Blood Pressure 106/74 mmHg [90-140/60-90 mmHg] (04/21/15 2:08 PM) Problem List Condition Effective Dates Status Health Status Informant Morbid Active patient obesity(Confirmed) Allergies, Adverse Reactions, Alerts No data available for this section Medications atenolol Oral, Daily, 0 Refill(s) Start Date: 04/21/15 Status: Ordered cyclobenzaprine Oral, 0 Refill(s) Start Date: 04/21/15 Status: Ordered gabapentin Oral, 0 Refill(s) Start Date: 04/21/15 Status: Ordered HumuLIN R (Concentrated) 500 units/mL human recombinant subcutaneous solution See Instructions, Draw up to 25 unit marking on a U-100 insulin syringe (125 total units) and inject SC before each meal, TID., # 20 mL, 5 Refill(s), [facility], NOTE: Please instruct patient on proper use of this insulin using a... Start Date: 04/22/15 Status: Ordered Insulin Syringe (DME) DME Item BD UF Short 31G 8mm 1/2 mL. Use to draw Humulin R U-500 insulin as directed 3 times daily., See Instructions, # 1 boxes, 5 Refill(s), Pharmacy: [facility], BD UF Short 31G 8mm 1/2 mL. Use to draw Humulin R U-500 insulin as directed... Start Date: 04/22/15 Status: Ordered Levaquin q24hr, 0 Refill(s) Start Date: 04/21/15 Status: Ordered Lexapro Oral, Daily, 0 Refill(s) Start Date: 04/21/15 Status: Ordered metFORMIN 500 mg oral tablet 500 mg 1 tabs, Oral, BID, with breakfast and supper, # 60 tabs, 5 Refill(s), Pharmacy: [facility], 1 tabs Oral BID,Instr:with breakfast and supper Start Date: 04/28/15 Status: Ordered morphine 0 Refill(s) Start Date: 04/21/15 Status: Ordered Percocet 5/325 oral tablet 1 tabs, Oral, q4hr, as needed for pain, 0 Refill(s) Start Date: 04/21/15 Status: Ordered Promethegan Rectal, q6hr, 0 Refill(s) Start Date: 04/21/15 Status: Ordered Synthroid 75 mcg (0.075 mg) oral tablet 75 mcg 1 tabs, Oral, Daily, # 30 tabs, 5 Refill(s), Pharmacy: [facility], 1 tabs Oral Daily Start Date: 04/23/15 Status: Ordered temazepam Oral, Bedtime (once a day), 0 Refill(s) Start Date: 04/21/15 Status: Ordered Xanax Oral, TID, 0 Refill(s) Start Date: 04/21/15 Status: Ordered Zantac 75 mg, Oral, BID, 0 Refill(s) Start Date: 04/21/15 Status: Ordered Results No data available for this section Immunizations No data available for this section Procedures No data available for this section Social History Social History Type Response Smoking Status Never smoker Assessment and Plan Extracted from: Title: Consult Note Author: Kushal Allison MD Date: 04/21/15 Assessment/Plan Insulin treated diabetes,type I versus type II. Coronary artery disease, status post stent. Hypercholesterolemia. Hypothyroidism. Plan: Additional 25 units of NovoLog was given today. She was [id number] ofwaterto drink. I went ahead and checked patient's C-peptideas she has not had breakfast or lunch. She apparently only eats yogurtat suppertime. If C-peptide is detectable,additional oral agents ornon-insulin injectables regimenwill be introduced. If C-peptide is not detectable,I would change her mealtime NovoLogto Humulin R [id number]. [id number] units twice dailyto be continued for now. NovoLogincreased to 30 units before meals. Advised to call us backwhen she gets homeand additionalNovoLog will be given, as necessary. Patientinquired aboutthe insulin pumpand this may be somethingto look into down the road. She will need formal diabetes educationclassto discuss carb countingetc. 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 Check CBC, chemistry, A1c, urine albuminand thyroid panel. Adjust thyroidregimen, as needed. Proper way of taking thyroid medication to optimize absorption explained. Assured about unremarkable thyroid exam today. Return to clinic in one month, sooner if with new problems.
--- OUTSIDE RECORDS SUMMARY | 2016-12-21 08:15 | XMS REPORT | Clinical Summary ---
Author Author Admin, BRANDON Organization [facility] Address Unknown Phone Allergies, Adverse Reactions, Alerts [...] MG TABS Take 1 tablet daily FUROSEMIDE 84072624560 Active Bismark Landa MD Active HYZAAR 100-25 MG TABS Take 1 tablet daily LOSARTAN POTASSIUM- HCTZ 36526980197 Active Bismark Landa MD Active SYNTHROID 25 MCG TABS Take 1 tablet daily LEVOTHYROXINE SODIUM 87327121134 Active Bismark Landa MD Active ZANTAC 150 MG TABS Take 1 tablet BID RANITIDINE HCL 35944432334 Active Bismark Landa MD Active PERCOCET 10-325 MG TABS Take 1 tablet every 8 hours as needed for pain. 11/26 OXYCODONE-ACETAMINOPHEN 73442392358 Active Bismark Landa MD Active MORPHINE SULFATE ER 15 MG CR-TABS Take 1 tablet BID MORPHINE SULFATE 99301979085 Active Bismark Landa MD Active CELEXA 20 MG TABS Take 1 tablet BID CITALOPRAM HYDROBROMIDE 40285786895 Active Bismark Landa MD Active GABAPENTIN 600 MG TABS 1 by mouth QID GABAPENTIN 41613231913 Active Bismark Landa MD Active CLARITHROMYCIN 500 MG TABS by mouth twice a day CLARITHROMYCIN 22323539463 No Longer Active Bismark Landa MD Active TRAZODONE HCL 100 MG TABS 1/2- 1 at bedtime TRAZODONE HCL 83246310977 No Longer Active Bismark Landa MD Active AMOXICILLIN 500 MG TABS 2 by mouth daily AMOXICILLIN 96818998507 No Longer Active Bismark Landa MD Active HYDROCODONE-ACETAMINOPHEN 7.5-325 MG TABS 1 by mouth every 6 hours as needed HYDROCODONE-ACETAMINOPHEN 52245419577 No Longer Active Bismark Landa MD Active HYDROCHLOROTHIAZIDE 25 MG TABS Take one by mouth daily HYDROCHLOROTHIAZIDE 00993575746 No Longer Active Bismark Landa MD Active VERAPAMIL HCL CR 240 MG CR-TABS Take one by mouth daily VERAPAMIL HCL 74057398983 No Longer Active Bismark Landa MD Active ALPRAZOLAM 0.5 MG TABS Take 1 tablet TID ALPRAZOLAM 75510757225 Active Bismark Landa MD Active HYDROCODONE-ACETAMINOPHEN 10-325 MG TABS take at bedtime HYDROCODONE-ACETAMINOPHEN 90595296205 No Longer Active Bismark Landa MD Active SUCRALFATE 1 GM TABS Take one by mouth four times daily, morning, noon, early evening and bedtime. SUCRALFATE 88804736935 No Longer Active Bismark Landa MD Active KLOR-CON 10 10 MEQ CR-TABS Take one by mouth daily POTASSIUM CHLORIDE 37928763542 No Longer Active Bismark Landa MD Active METOLAZONE 5 MG TABS Take one by mouth daily METOLAZONE 28674248668 No Longer Active Bismark Landa MD Active TEMAZEPAM 30 MG CAPS Take 1 tablet at bed time. TEMAZEPAM 24949865500 Active Bismark Landa MD Active LANTUS 100 UNIT/ML SOLN 40 units subq at bedtime INSULIN GLARGINE 25837366373 Active Bismark Landa MD Active HUMALOG 100 UNIT/ML SOLN 25 units subq before each meal INSULIN LISPRO (HUMAN) 31068125652 Active Priscila Valera MD Active OMEPRAZOLE 40 MG CPDR Take one by mouth daily OMEPRAZOLE 13036558215 Active Arnold Ibarra MD Active CYCLOBENZAPRINE HCL 10 MG TABS Take one by mouth daily CYCLOBENZAPRINE HCL 28792313150 Active Arnold Ibarra MD Active ATENOLOL 50 MG TABS 1 1/2 daily ATENOLOL 94694794499 Active Arnold Ibarra MD Active PROMETHAZINE HCL 25 MG TABS 1 tab by mouth every 6 hours as needed for nausea/ vomiting PROMETHAZINE HCL 34548830041 Active Arnold Ibarra MD Active METOLAZONE 5 MG TABS Take one by mouth daily METOLAZONE 5 MG TABS 847557 METOLAZONE Inactive KLOR-CON 10 10 MEQ CR-TABS Take one by mouth daily KLOR-CON 10 10 MEQ CR-TABS POTASSIUM CHLORIDE Inactive SUCRALFATE 1 GM TABS Take one by mouth four times daily, morning, noon, early evening and bedtime. SUCRALFATE 1 GM TABS 744108 SUCRALFATE Inactive HYDROCODONE-ACETAMINOPHEN 10-325 MG TABS take at bedtime HYDROCODONE-ACETAMINOPHEN 10-325 MG TABS 365973 HYDROCODONE-ACETAMINOPHEN Inactive VERAPAMIL HCL CR 240 MG CR-TABS Take one by mouth daily VERAPAMIL HCL CR 240 MG CR-TABS VERAPAMIL HCL Inactive HYDROCHLOROTHIAZIDE 25 MG TABS Take one by mouth daily HYDROCHLOROTHIAZIDE 25 MG TABS 390364 HYDROCHLOROTHIAZIDE Inactive HYDROCODONE-ACETAMINOPHEN 7.5-325 MG TABS 1 by mouth every 6 hours as needed HYDROCODONE-ACETAMINOPHEN 7.5-325 MG TABS 631153 HYDROCODONE-ACETAMINOPHEN Inactive AMOXICILLIN 500 MG TABS 2 by mouth daily AMOXICILLIN 500 MG TABS 798036 AMOXICILLIN Inactive TRAZODONE HCL 100 MG TABS 1/2- 1 at bedtime TRAZODONE HCL 100 MG TABS 909191 TRAZODONE HCL Inactive CLARITHROMYCIN 500 MG TABS by mouth twice a day CLARITHROMYCIN 500 MG TABS 118973 CLARITHROMYCIN Inactive Diagnostic Results Date Name Value [...] 5.0-8.5 Encounters Code Encounter Date Provider Facility CPT-02498 Level 4 Est. Patient 14:58:44 CDT Bismark Landa MD [facility] CPT-75567 Level 4 New Patient 15:17:54 CDT Priscila Valera MD [facility] CPT-83522 Level 2 Est. Patient 16:51:13 CDT Arnold Ibarra MD [facility] Procedures Code Procedure Name Date Entry Date Standard Description CPT-54929 Cystoscopy 15:17:54 CDT
--- OUTSIDE RECORDS SUMMARY | 2016-12-21 08:15 | XMS REPORT ---
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 Active Problem Screening breast examination Z12.39 Active Assessment Nausea and vomiting, intractability of vomiting not specified, unspecified vomiting type R11.2 Active Problem Anxiety F41.9 Active 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 Assessment Type 2 diabetes mellitus with unspecified complications E11.8 Active Problem Epigastric pain R10.13 Active Problem 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 Active Problem Nodule of chest wall R22.2 Active Problem Chronic pain syndrome G89.4 Active Problem Gastroparesis K31.84 Active Problem Acquired hypothyroidism E03.9 Active Medications Medication Code System Code Instructions Start Date End Date Status Dosage Insulin Syringe FORMERLY NAMED [facility] 8326-289313 31G X 5/16 not defined Luis Fernando Contour Test FORMERLY NAMED [facility] [address]-37 - In Vitro 3 times a day Jan 29, 2016 as directed Gabapentin FORMERLY NAMED [facility] [address]-66 800 MG Orally 3 times a day 1 tablet Levothyroxine Sodium FORMERLY NAMED [facility] [address]-42 75 MCG Orally Once a day 1 tablet Humulin R U-500 (Concentrated) FORMERLY NAMED [facility] [address]-76 500 UNIT/ML Subcutaneous 3 times a day with meals 45 units or per sliding scale Benadryl Allergy FORMERLY NAMED [facility] [address]-58 25 MG Orally Once a day at bedtime 2 tablet as needed Promethazine HCl FORMERLY NAMED [facility] [address]-21 25 MG TAKE ONE TABLET BY MOUTH EVERY 6 HOURS NEEDED Pantoprazole Sodium FORMERLY NAMED [facility] [address]-95 40 mg Orally Once a day 1 tablet Diflucan FORMERLY NAMED [facility] [address]-52 100 MG Orally Once a day Apr 06, 2016 Apr 20, 2016 1 tablet Baclofen FORMERLY NAMED [facility] [address]-05 10 MG Orally Three times a day Jan 26, 2016 1 tablet with food or milk Levemir FlexTouch FORMERLY NAMED [facility] [address]-85 100 UNIT/ML Subcutaneous 2 times a day 35 units Losartan Potassium-HCTZ FORMERLY NAMED [facility] [address]-35 100-25 MG Orally Once a day 1 tablet Alprazolam FORMERLY NAMED [facility] [address]-17 1 MG Orally Three times a day must last 28 days 1 tablet Escitalopram Oxalate FORMERLY NAMED [facility] [address]-83 20 mg Orally Once a day 1 tablet Nystatin FORMERLY NAMED [facility] [address]-33 193839 UNIT/GM Externally Twice a day 1 to affected area Tylenol FORMERLY NAMED [facility] [address]-00 500 MG/15ML Orally Once a day @ HS 2 tablets Zantac FORMERLY NAMED [facility] [address]-29 150 MG Orally twice a day 1 tablet Tresiba FlexTouch FORMERLY NAMED [facility] [address]-49 100 UNIT/ML Subcutaneous Once a day at bedtime 75 units Oxygen NDC 0 at bedtime 3L nasal canal Nystatin FORMERLY NAMED [facility] [address]-80 441220 UNIT/ML Mouth/Throat Four times a day Apr 06, 2016 May 06, 2016 4 ml Temazepam FORMERLY NAMED [facility] [address]-00 30 MG Orally Once a day 1 capsule at bedtime as needed Atenolol FORMERLY NAMED [facility] [address]-87 50 mg Orally Once a day 2 tablet Seroquel XR FORMERLY NAMED [facility] [address]-65 50 mg Orally Once a day at HS 2 tablet in the evening Procedures Procedure Coding System Code Date Office Visit, Est Pt., Level 3 CPT-4 58424 Apr 12, 2016 Vital Signs Date/Time: Apr 12, 2016 Cardiac Monitoring Heart Rate 86 bpm Weight 249.6 lbs Height 62 in BMI 45.65 Index Results No Known Results Summary Purpose [employer] Submission
--- OUTSIDE RECORDS SUMMARY | 2016-12-21 08:15 | XMS REPORT ---
Author Author MIRZA MARTINO [facility] Address [address] [place] [address] Care Team Providers Care Television Service Engineer Name Role Phone MIRZA MARTINO Unavailable PROBLEMS Type Condition ICD9-CM Code OMK88-AM Code Onset Dates Condition Status SNOMED Code Problem Anxiety F41.9 Active 59202430 Problem Nodule of chest wall R22.2 Active 560552229 Problem prison 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 Active 964270641 Problem Gastroparesis K31.84 Active 704549595 Problem Type 2 diabetes mellitus with unspecified complications E11.8 Active 12615905 Problem Epigastric pain R10.13 Active 51379297 Problem Tobacco abuse Z72.0 Active 535619488 Problem Thrush B37.0 Active 44545715 Problem Bronchitis J40 Active 92057774 Problem Vaginal bleeding N93.9 Active 306222431 Problem Weakness R53.1 Active 97752627 Problem Acquired hypothyroidism E03.9 Active 573862477 Problem Chronic pain syndrome G89.4 Active 680349003 Problem 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 Active 715901164 Problem Drowsiness R40.0 Active 801060814 Problem Type 1 diabetes mellitus without complication E10.9 Active 628734304 Problem Anxiety, generalized F41.1 Active 30580615 Problem Severe episode of recurrent major depressive disorder, without 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 Active 07027644 Problem Type 2 diabetes mellitus with diabetic autonomic (poly)neuropathy E11.43 Active 085234404 Problem Type 2 diabetes mellitus with foot ulcer E11.621 Active 8519884989544 Problem Essential hypertension I10 Active 72516314 Problem Congestive heart failure, unspecified congestive heart failure chronicity, unspecified congestive heart failure type I50.9 Active 91555292 Problem 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
--- OUTSIDE RECORDS SUMMARY | 2016-12-21 08:16 | XMS REPORT ---
Author Author [facility] Medical Staff Organization [facility] Address [address], [place] [address] Phone [phone] Care Team Providers Care Hydroblaster Name Role Phone MEAGAN FOSTER PP [phone] MEAGAN FOSTER PP [phone] Summary purpose TRANSITION OF CARE AUTO GENERATION [...] Relevant diagnostic tests and/or laboratory data RESULTS Chemistry 26-43-409298:45:00 Result Normal Range Units Sodium 134 134-145 [...] Lactic Acid H 3.0 0.4-2.0 mmol/L Hematology :45:00 Result Normal Range Units WBC 5.9 4.8-10.8 103/uL RBC L 3.7 4.2-5.4 106/uL HGB L 10.2 12.0-16.0 g/dl HCT L 32.8 36.9-47.0 % MCV 89.6 81-99 FL MCH 27.9 27-31 pg MCHC L 31.1 33-37 g/dl RDW 13.7 11.5-15.5 % PLT 140 130-400 103/uL MPV 10.4 7.3-10.4 FL Neutro % 59.6 40-70 % Lymph % 32.1 20-40 % [place] % 5.6 0-10.0 % Eos % 1.5 0-7.0 % Baso % 0.3 0-2 % Neutro # 3.5 1.5-7.5 103/uL Lymph # 1.9 0.9-4.0 103/uL [place] # 0.3 0-0.8 103/uL Eos # 0.1 0-0.6 103/uL Baso # 0.0 0-0.1 103/uL Reference Lab ([facility]) 19-40-795208:48:00 Influenza A & B, Rapid AB Positive Type B Radiology Results :45:00 Result Normal Range Units MPV 10.4 7.3-10.4 FL History of procedures No procedures recorded for this patient visit. Functional status Functional Status Finding Observation Time Abdomen Appearance obese :30 Abdomen soft 93-65-837197:30 Bowel Sounds present 63-80-314459:30 Urination normal 12-84-871262:30 Quality sym/unlabored : Cough productive :30 Secretions [...] rigors no :30 HR > 90bpm no :30 Respirations > 20 no :30 Systolic <90 no :30 headache stiff neck no :30 VAD Type catarino-cath 12-34-833039:45 VAD Location L Chest 70-48-081607:45 VAD Site Info new 01-63-140195:45 VAD Site Appearance WNL 40-64-889502:45 VAD Site Color clear 57-03-393447:45 VAD Site Patent yes 69-07-614335:45 VAD Dressing Type occlusive 28-36-798793:45 Nursing Note Transferred to [facility] in fair condition. :20 Vital signs [...]
--- OUTSIDE RECORDS SUMMARY | 2016-12-21 08:18 | XMS REPORT ---
Author Author CONTRERAS BOSE Organization [employer] Address Unknown Phone Unavailable Care Team Providers Care Legal Transcriptionist Name Role Phone CONTRERAS BOSE CP Unavailable Allergies No Known Allergies Problems Problem Type Condition ICD-9 Code Onset Dates Condition Status Assessment Dental examination V72.2 Active Medications No Known Medications Procedures Procedure Coding System Code Date INTRAORL-PERIAPICAL 1 FILM 48420 CPT-4 D0220 January 08, 2015 BITEWING - SINGLE FILM CPT-4 D0270 January 08, 2015 LTD ORAL EVALUATION - PROBLEM FOCUS CPT-4 D0140 January 08, 2015 Results No Known Results Summary Purpose [employer] Submission
--- OUTSIDE RECORDS SUMMARY | 2016-12-21 08:18 | XMS REPORT ---
Author Author MIRZA MARTINO Organization [employer] Address Unknown Phone Unavailable Care Team Providers Care Foreign Exchange Services Manager Name Role Phone MIRZA MARTINO CP Unavailable Allergies No Known Allergies Problems Problem Type Condition Code Onset Dates Condition Status Problem Essential hypertension I10 Active Problem Type 2 diabetes mellitus with diabetic autonomic (poly)neuropathy E11.43 Active Problem Congestive heart failure, unspecified congestive heart failure chronicity, unspecified congestive heart failure type I50.9 Active Problem director 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 Active Problem [...] Instructions Start Date End Date Status Dosage Losartan Potassium-HCTZ [facility] [address]-00 100-25 MG Orally Once a day 1 tablet Zantac [facility] [address]-32 150 MG Orally twice a day 1 tablet Humulin R U-500 (Concentrated) [facility] [address]-19 500 UNIT/ML Subcutaneous 3 times a day with meals 45 units or per sliding scale Promethazine HCl [facility] [address]-16 25 MG TAKE ONE TABLET BY MOUTH EVERY 6 HOURS NEEDED Seroquel XR [facility] [address]-79 50 mg Orally Once a day at HS 2 tablet in the evening Results No Known Results Summary Purpose [employer] Submission
--- OUTSIDE RECORDS SUMMARY | 2016-12-21 08:18 | XMS REPORT ---
Author Author [facility] Medical Staff Organization [facility] Address [address] [place], [place] [address] Phone [phone] Care Team Providers Care Toolroom Attendant Name Role Phone MEAGAN FOSTER PP [phone] Summary purpose CCDA Sent to [facility] Chief Complaint and Reason for Visit No [...] IV Dye, Iodine Containing Contrast Media Active Lortab Drug Lortab Active Lortab Drug acetaminophen Active Lortab Drug hydrocodone Active Immunizations No immunizations recorded for this patient visit Relevant diagnostic tests and/or laboratory data No authorized results are available for this patient visit History of procedures Procedure Code Code Type Description Date Performed Performing Physician 36957 CPT-4 IRRIG DRUG DELIVERY DEVICE 10-12-2015 MEAGAN ALVARADO 46983 CPT-4 CHEST X-RAY 10-12-2015 MEAGAN ALVARADO [id number] CPT-4 HEP INJECTION 10-12-2015 MEAGAN ALVARADO Functional status No functional or cognitive status observations are available for this visit. Vital signs Type Value Date Respirations 22 80-57-985917:25 Pulse 79 95-05-339736:25 O2 Saturation 97% 25-31-623085:25 Systolic Blood Press 103mm/HG 84-44-413101:25 Diastolic Blood Pres 68mm/HG 98-69-208822:25 Temperature (Fahr) 98.1Degrees 65-53-656351:25 Social history No Social History or smoking status observations were recorded for this visit. ( Unknown if ever smoked.) Treatment Plan Treatment Plan at Di return in 6 weeks for next maintenance flush of port-a- cath device Hospital discharge instructions No discharge instruction text is available for this visit.
--- OUTSIDE RECORDS SUMMARY | 2016-12-21 08:18 | XMS REPORT | CCD ---
Author Author MATTHIAS HOPKINS Organization Unknown Address [address] [place], [place] [address] Care Team Providers Care Engineering Consultant Name Role Phone FOSTER PERKINS DO Ashlyn Attphys Vital Signs Vital Sign Value Unit Weight Measured 267 lbs Height 62 in BMI (Body Mass Index) 48.83 kg/m^2 BSA (Body Surface Area) 2.3 m^2 BP Systolic 134 mmHg BP Diastolic 96 mmHg Respiratory Rate 16 bpm Heart Rate 93 bpm O2 % BldC Oximetry 98 % Body Temperature 97.9 degrees Allergies Allergy Code Allergy Type Reaction Status COMPAZINE 0 Drug allergy (disorder) Active SULFA (sulfonamide) 0 Drug allergy (disorder) Active IV DYE {Clinical monitoring unavailable} 0 Drug allergy (disorder ) Active ZOFRAN 0 Drug allergy (disorder) Active CODEINE 0 Drug allergy (disorder) Active Procedures Unknown. History of Immunizations Unknown. Problems Unknown. Results BEDSIDE GLUCOSE Test Name Code Test Result Test Units Test Date/ Time GLUCOSE POCT 203.0000 MG/DL 08/29/2013 09:27 TEST URINE Test Name Code Test Result Test Units Test Date/ Time TEST UR 2106-3 NEGATIVE N/A 08/29/2013 08 :00 Medications Medication Code Dose Units Frequency Route Modification Start Date/Time Stop Date/Time Levothyroxine 0.025MG Oral Tablet 853647 0.025 MILLIGRAMS DAILY ORAL Lovastatin 40MG Oral Tablet 794464 40 MILLIGRAMS DAILY ORAL Hydrochlorothiazide 25MG Oral Tablet 172802 25 MILLIGRAMS DAILY ORAL Cyclobenzaprine 10MG Oral Tablet 634744 10 MILLIGRAMS THREE TIMES A DAY ORAL Atenolol 50MG Oral Tablet 191213 1.5 TABLET DAILY ORAL Xanax 0.5MG Oral Tablet 012910 0.5 MILLIGRAMS THREE TIMES A DAY ORAL Promethazine 25MG Oral Tablet 125236 25 MILLIGRAMS EVERY 6 HOURS ORAL Lantus 100U/ML Subcutaneous Solution 418098 30 UNIT AT BEDTIME SUBCUTANEOUS Humalog 100U/ML Subcutaneous Suspension 701196 25 UNIT THREE TIMES A DAY SUBCUTANEOUS Zaroxolyn 5MG Oral Tablet 704956 5 MILLIGRAMS DAILY ORAL Potassium Chloride 20MEQ Oral Tablet, Extended Release 010272 20 MEQ DAILY ORAL Temazepam 30MG Oral Capsule 19810925 30 MILLIGRAMS AT BEDTIME ORAL Gabapentin 600MG Oral Tablet 417906 600 MILLIGRAMS FOUR TIMES A DAY ORAL Lasix 20MG Oral Tablet 20 MILLIGRAMS DAILY ORAL Hyzaar 25MG-100MG Oral Tablet 983098 1 EACH DAILY ORAL Citalopram 20MG Oral Tablet 20021224 20 MILLIGRAMS DAILY ORAL Percocet 325MG-10MG Oral Tablet 9014096 1 EACH NEEDED ORAL Medications Administered Unknown. Encounters Encounter Diagnosis Diagnosis Code Start Date FIT ADJ VASCULAR CATH V5881 08/29/2013 Social History Smoking Status Code Start Date End Date Never smoker [id number] Patient Decision Aids Unknown. Instructions You were admitted to [facility] on 08/29/2013 with a principle diagnosis of FIT ADJ VASCULAR CATH. You had the following procedures done: INSERT TUNNELED CV CATH You were discharged from [facility] on 08/29/2013. Should you have any questions prior to discharge, please contact a member of your healthcare team. If you have left the hospital and have any questions, please contact your primary care physician. Chief Complaint and Reason For Visit Chief Complaint Date of Onset GEN PORT A CATH Function Status Unknown. Plan of Care Unknown. Referral/Transition of Care Unknown.
--- OUTSIDE RECORDS SUMMARY | 2016-12-21 08:18 | XMS REPORT | Continuity of Care Document ---
Author Author [facility] Organization [facility] Address Unknown Phone Unavailable Allergies Active Description Code Type Severity Reaction Onset Reported/Identified Relationship to Patient Clinical Status Yes acetaminophen 1605 Drug Allergy N/A N/A Confirmed or Verified Yes hydrocodone 1554 Drug Allergy N/A N/A Confirmed or Verified Yes ondansetron Drug Allergy Confirmed or Verified Yes Prochlorperazine Drug Allergy Confirmed or Verified Yes Codeine 1550 Drug Allergy N/A N/A Yes Compazine 3622 Drug Allergy N/A N/A Yes IV Dye, Iodine Containing Contrast Media 7 Drug Allergy N/A N/A Yes Lortab 7006 Drug Allergy N/A N/A Yes Reglan 5970 Drug Allergy N/A N/A Yes Sulfa(Sulfonamide Antibiotics) 491 Drug Allergy N/A N/A Yes TAPE Tape Miscellaneous Allergy N/A Blister Yes TAPE Miscellaneous Allergy N/A N/A Confirmed or Verified Yes Zofran 30 Drug Allergy N/A N/A Yes Iodinated Contrast Media - IV Dye [id number] Drug Allergy Unknown N/A 04/27/2007 Yes Codeine 1550 Drug Allergy N/A N/A 04/25/2012 Yes Compazine 3622 Drug Allergy N/A N/A 04/25/2012 Yes IV Dye, Iodine Containing Contrast Media 7 Drug Allergy N/A N/A 04/25/2012 Yes Sulfa(Sulfonamide Antibiotics) 491 Drug Allergy N/A N/A 04/25/2012 Yes Zofran 30 Drug Allergy N/A N/A 04/25/2012 Yes Codeine Drug Allergy 04/25/2012 Confirmed or Verified Yes Compazine Drug Allergy 04/25/2012 Yes IV Dye, Iodine Containing Contrast Media Drug Allergy 04/25/2012 Confirmed or Verified Yes Sulfa(Sulfonamide Antibiotics) Drug Allergy 04/25/2012 Confirmed or Verified Yes Zofran Drug Allergy 04/25/2012 Yes Codeine Drug Allergy Moderate Adverse Reaction 05/02/2012 Yes Compazine Drug Allergy Moderate Adverse Reaction 05/02/2012 Yes IV Contrast Drug Allergy Severe Anaphylaxis 05/02/2012 Yes Lortab Drug Allergy Moderate Adverse Reaction 05/02/2012 Yes Zofran Drug Allergy Moderate Adverse Reaction 05/02/2012 Yes Lortab 7006 Drug Allergy N/A N/A 04/08/2015 Yes IV Dye IV Dye Mild N/A 08/17/2015 Yes tape tape Mild blister 08/17/2015 Yes acetaminophen [id number] Drug Allergy Mild N/A 10/10/2016 Yes hydrocodone [id number] Drug Allergy Mild N/A 10/10/2016 Yes codeine [id number] Drug Allergy Unknown N/A 10/10/2016 Yes Iodinated Contrast Media - Oral and [id number] Drug Allergy Unknown N/A 10/10/2016 Yes Iodinated Contrast- Oral and IV Dye [id number] Drug Allergy Unknown N/A 10/10/2016 Yes iodine [id number] Drug Allergy Unknown N/A 10/10/2016 Yes metoclopramide [id number] Drug Allergy Unknown N/A 10/10/2016 Yes ondansetron [id number] Drug Allergy Unknown N/A 10/10/2016 Yes prochlorperazine [id number] Drug Allergy Unknown N/A 10/10/2016 Yes Sulfa (Sulfonamide Antibiotics) [id number] Drug Allergy Unknown N/A 10/10/2016 Medications Problems Date Dx Coded Attending Type Code Diagnosis Diagnosed By 07/13/2005 D 401.9 HYPERTENSION NOS 07/13/2005 D 414.00 CAD UNS VESSEL/[place]/GR 07/13/2005 D 562.11 DIVERTICULI COLON NO HEM 07/13/2005 D 786.05 SHORTNESS OF BREATH 07/13/2005 D 786.50 CHEST PAIN NOS 08/14/2005 D 558.9 NONINF GASTROENTERIT NEC 08/19/2005 D 041.86 H. PYLORI INFECTION 08/19/2005 D 250.61 DM1 W NEURO MANIFEST NSU 08/19/2005 D 278.00 OBESITY, UNSPECIFIED 08/19/2005 D 357.2 NEUROPATHY IN DIABETES 08/19/2005 D 535.00 ACUTE GASTRITIS W/O HEMO 01/07/2009 D 250.00 DM2/NOS UNCOMP NSU 01/07/2009 D 272.0 PURE HYPERCHOLESTEROLEM 01/07/2009 D 401.9 HYPERTENSION NOS 01/07/2009 D 780.4 DIZZINESS AND GIDDINESS 01/07/2009 D 787.01 NAUSEA WITH VOMITING 06/30/2011 D 250.00 DM2/NOS UNCOMP NSU 06/30/2011 D 401.9 HYPERTENSION NOS 06/30/2011 D 414.00 CAD UNS VESSEL/[place]/GR 06/30/2011 D 719.46 JOINT PAIN-L/LEG 07/14/2011 D 780.79 OTHER MALAISE & FATIGUE 07/14/2011 D 785.1 PALPITATIONS 07/14/2011 D 786.50 CHEST PAIN NOS 09/15/2011 D 041.86 H. PYLORI INFECTION 09/15/2011 D 787.01 NAUSEA WITH VOMITING 09/15/2011 D 789.00 ABDOMINAL PAIN, UNSPECIF 10/25/2011 D 782.3 EDEMA 10/25/2011 D 786.05 SHORTNESS OF BREATH 01/03/2012 D 723.1 CERVICALGIA 01/03/2012 D 724.5 BACKACHE NOS 01/06/2012 D 112.0 THRUSH 01/06/2012 D 599.70 HEMATURIA NOS 01/06/2012 D 724.5 BACKACHE NOS 01/06/2012 D 782.3 EDEMA 01/06/2012 D 787.02 NAUSEA ALONE 01/06/2012 D 789.00 ABDOMINAL PAIN, UNSPECIF 01/26/2012 D 250.00 DM2/NOS UNCOMP NSU 01/26/2012 D 288.60 LEUKOCYTOSIS NOS 01/26/2012 D 338.29 CHRONIC PAIN NEC 01/26/2012 D 401.9 HYPERTENSION NOS 01/26/2012 D 414.00 CAD UNS VESSEL/[place]/GR 01/26/2012 D 490 BRONCHITIS NOS 01/26/2012 D 787.91 DIARRHEA 03/01/2012 D 112.0 THRUSH 03/01/2012 D 250.00 DM2/NOS UNCOMP NSU 03/01/2012 D 401.9 HYPERTENSION NOS 03/01/2012 D 465.9 ACUTE URI NOS 03/01/2012 D 786.50 CHEST PAIN NOS 03/01/2012 D 789.00 ABDOMINAL PAIN, UNSPECIF 03/01/2012 D 112.0 THRUSH 03/01/2012 D 250.00 DM2/NOS UNCOMP NSU 03/01/2012 D 401.9 HYPERTENSION NOS 03/01/2012 D 465.9 ACUTE URI NOS 03/01/2012 D 786.50 CHEST PAIN NOS 03/01/2012 D 789.00 ABDOMINAL PAIN, UNSPECIF 03/23/2012 D 625.9 FEM GENITAL SYMPTOMS NOS 03/23/2012 D 787.01 NAUSEA WITH VOMITING 03/23/2012 D 789.00 ABDOMINAL PAIN, UNSPECIF 03/28/2012 D 075 INFECTIOUS MONONUCLEOSIS 04/06/2012 D 075 INFECTIOUS MONONUCLEOSIS 04/06/2012 D 780.79 OTHER MALAISE & FATIGUE 04/25/2012 D 075 INFECTIOUS MONONUCLEOSIS 04/25/2012 D 784.0 HEADACHE 04/25/2012 D 787.01 NAUSEA WITH VOMITING 05/02/2012 Belinda RAMOS, Simona E Final 793.81 MAMMOGRAPHIC MICROCALCIF 05/09/2012 D 075 INFECTIOUS MONONUCLEOSIS 05/09/2012 D 414.00 CAD UNS VESSEL/[place]/GR 05/09/2012 D 427.9 CARDIAC DYSRHYTHMIA NOS 05/09/2012 D 785.1 PALPITATIONS 05/22/2012 D 490 BRONCHITIS NOS 05/22/2012 D 784.0 HEADACHE 05/22/2012 D 787.01 NAUSEA WITH VOMITING 06/22/2012 D 075 INFECTIOUS MONONUCLEOSIS 06/22/2012 D 250.01 DM1 UNCOMP NSU 06/22/2012 D 599.70 HEMATURIA NOS 06/22/2012 D 780.60 FEVER NOS 06/22/2012 D 780.79 OTHER MALAISE & FATIGUE 06/22/2012 D 791.9 ABN URINE FINDINGS NEC 06/22/2012 D 959.7 LOWER LEG INJURY NOS 06/22/2012 D E929.8 LATE EFF ACCIDENT NEC 07/06/2012 MADL ARN, MIRZA L D 276.51 DEHYDRATION 07/06/2012 MADL ARN, MIRZA L D 490 BRONCHITIS NOS 07/06/2012 MADL ARN, MIRZA L D 780.60 FEVER NOS 07/17/2012 MADL ARN, MIRZA L D 719.46 JOINT PAIN-L/LEG 07/27/2012 MADL ARN, MIRZA L D 787.01 NAUSEA WITH VOMITING 07/27/2012 MADL ARN, MIRZA L D 787.91 DIARRHEA 07/31/2012 MANAS RAMOS, REUBEN R D 719.46 JOINT PAIN-L/LEG 08/08/2012 MILDRED RAMOS, NETTE Garcia 535.11 ATROPHIC GASTRITIS W HEM 08/08/2012 MILDRED RAMOS, NETTE Garcia 787.03 VOMITING ALONE 08/08/2012 MILDRED RAMOS, NETTE Garcia 535.11 ATROPHIC GASTRITIS W HEM 08/08/2012 MILDRED RAMOS, NETTE Garcia 787.03 VOMITING ALONE 09/14/2012 HAIML NANO YATESA L D 346.90 MIGRAINE NOS W/O SM 09/14/2012 MADL TRUDY MIRZA L D 535.10 ATROPH GASTRITIS WO HEMO 09/14/2012 MADL TRUDY MIRZA L D 787.01 NAUSEA WITH VOMITING 09/26/2012 SORAYA BALLWNYA L D 729.82 CRAMP IN LIMB 09/27/2012 SORAYA BALLWNYA L D 784.0 HEADACHE 11/23/2012 JAGRUTI FOSTERICA L D 250.00 DM2/NOS UNCOMP NSU 11/23/2012 FLYNN FOSTERSSICA L D 786.50 CHEST PAIN NOS 11/23/2012 FLYNN FOSTERSSICA L D V58.69 SHELTER MEDICATION USE 11/23/2012 FLYNN FOSTERSSICA L D 250.00 DM2/NOS UNCOMP NSU 11/23/2012 FLYNN FOSTERSSICA L D 786.50 CHEST PAIN NOS 11/23/2012 FLYNN FOSTERSSICA L D V58.69 SHELTER MEDICATION USE 12/21/2012 FLYNN FOSTERSSICA L D 786.50 CHEST PAIN NOS 12/21/2012 JENNY GURROLA MEAGAN L D 786.50 CHEST PAIN NOS 01/04/2013 FLYNN FOSTERSSICA L D 338.29 CHRONIC PAIN NEC 01/04/2013 JAGRUTI FOSTERICA L D V58.69 SHELTER MEDICATION USE 01/04/2013 JAGRUTI FOSTERICA L D V76.12 OT SCREEN MAMMOGRAM 03/08/2013 JAGRUTI FOSTERICA L D 041.19 BACTERIAL STAPHYLOCOCCUS 03/08/2013 FLYNN FOSTERSSICA L D 611.79 SYMPTOMS IN BREAST NEC 03/08/2013 JAGRUTI FOSTERICA L D 794.8 ABN LIVER FUNCTION STUDY 03/29/2013 FLYNN FOSTERSSICA L D 719.06 JOINT EFFUSION-L/LEG 03/29/2013 FLYNN FOSTERSSICA L D 719.46 JOINT PAIN-L/LEG 05/07/2013 FLYNN FOSTERSSICA L D 338.29 CHRONIC PAIN NEC 05/07/2013 FLYNN FOSTERSSICA L D 401.9 HYPERTENSION NOS 05/07/2013 FLYNN FOSTERSSICA L D 782.3 EDEMA 05/07/2013 FLYNN FOSTERSSICA L D 786.05 SHORTNESS OF BREATH 07/11/2013 FLYNN FOSTERSSICA L D 250.00 DM2/NOS UNCOMP NSU 07/11/2013 FLYNN FOSTERSSICA L D 599.70 HEMATURIA NOS 07/11/2013 FLYNN FOSTERSSICA L D 782.1 NONSPECIF SKIN ERUPT NEC 07/11/2013 FLYNN FOSTERSSICA L D 785.1 PALPITATIONS 07/11/2013 FLYNN FOSTERSSICA L D 791.9 ABN URINE FINDINGS NEC 07/11/2013 FLYNN FOSTERSSICA L D 250.00 DM2/NOS UNCOMP NSU 07/11/2013 FLYNN FOSTERSSICA L D 599.70 HEMATURIA NOS 07/11/2013 FLYNN FOSTERSSICA L D 782.1 NONSPECIF SKIN ERUPT NEC 07/11/2013 FLYNN FOSTERSSICA L D 785.1 PALPITATIONS 07/11/2013 FLYNN FOSTERSSICA L D 791.9 ABN URINE FINDINGS NEC 08/19/2013 JUNG TURNER 041.11 MSSA 08/19/2013 JUNG TURNER 686.9 LOCAL SKIN INFECTION NOS 12/06/2013 FLYNN FOSTERSSICA L D 250.00 DM2/NOS UNCOMP NSU 12/06/2013 FLYNN FOSTERSSICA L D 780.79 OTHER MALAISE & FATIGUE 12/06/2013 FLYNN FOSTERSSICA L D 787.01 NAUSEA WITH VOMITING 12/06/2013 FLYNN FOSTERSSICA L D V58.67 LONG-TERM INSULIN USE 12/18/2013 FLYNN FOSTERSSICA L D 250.00 DM2/NOS UNCOMP NSU 12/18/2013 JAGRUTI FOSTERICA L D 311 DEPRESSIVE DISORDER NEC 12/18/2013 MEAGAN FOSTER D 780.79 OTHER MALAISE & FATIGUE 12/18/2013 JAGRUTI FOSTERICA L D 787.01 NAUSEA WITH VOMITING 12/25/2013 JAGRUTI FOSTERICA L D 462 ACUTE PHARYNGITIS 12/25/2013 MEAGAN FOSTER D 784.1 THROAT PAIN 02/05/2014 MEAGAN FOSTER D 250.02 DM2/NOS UNCOMP [facility] 03/07/2014 JAGRUTI FOSTERICA L D 250.02 DM2/NOS UNCOMP [facility] 03/07/2014 MEAGAN FOSTER D 787.02 NAUSEA ALONE 03/07/2014 MEAGAN FOSTER D 789.00 ABDOMINAL PAIN, UNSPECIF 04/07/2014 MEAGAN FOSTER D 250.00 DM2/NOS UNCOMP NSU 04/07/2014 MEAGAN FOSTER D 787.01 NAUSEA WITH VOMITING 05/28/2014 MEAGAN FOSTER D 250.00 DM2/NOS UNCOMP NSU 05/28/2014 MEAGAN FOSTER D 786.50 CHEST PAIN NOS 05/28/2014 MEAGAN FOSTER D V58.67 LONG-TERM INSULIN USE 05/28/2014 MEAGAN FOSTER D V58.69 ELECTRONIC TRANSACTION IMPLEMENTER MEDICATION USE 07/18/2014 D 250.00 DM2/NOS UNCOMP NSU 07/18/2014 D 465.9 ACUTE URI NOS 07/18/2014 D 780.79 OTHER MALAISE & FATIGUE 07/18/2014 D 786.2 COUGH 07/18/2014 D V58.67 LONG-TERM INSULIN USE 07/29/2014 MEAGAN FOSTER D 276.1 HYPOSMOLALITY 07/29/2014 MEAGAN FOSTER 486 PNEUMONIA, ORGANISM NOS 07/29/2014 EMAGAN FOSTER D 786.2 COUGH 09/05/2014 D 786.2 COUGH 09/05/2014 D 789.00 ABDOMINAL PAIN, UNSPECIF 12/05/2014 ALVARADO CONSTRUCTION COST ESTIMATOR, MEAGAN L D 250.00 DM2/NOS UNCOMP NSU 12/05/2014 JENNY CONSTRUCTION COST ESTIMATOR, MEAGAN L D 490 BRONCHITIS NOS 12/05/2014 JENNY CONSTRUCTION COST ESTIMATOR, MEAGAN L D 786.2 COUGH 12/05/2014 ALVARADO CONSTRUCTION COST ESTIMATOR, MEAGAN L D 786.50 CHEST PAIN NOS 12/05/2014 JENNY CONSTRUCTION COST ESTIMATOR, MEAGAN L D V58.67 LONG-TERM INSULIN USE 12/05/2014 JENNY CONSTRUCTION COST ESTIMATOR, MEAGAN L D 250.00 DM2/NOS UNCOMP NSU 12/05/2014 JENNY CONSTRUCTION COST ESTIMATOR, MEAGAN L D 490 BRONCHITIS NOS 12/05/2014 JENNY CONSTRUCTION COST ESTIMATOR, MEAGAN L D 682.8 CELLULITIS, SITE NEC 12/05/2014 JENNY CONSTRUCTION COST ESTIMATOR, MEAGAN L D 786.2 COUGH 12/05/2014 JENNY CONSTRUCTION COST ESTIMATOR, MEAGAN L D V58.67 LONG-TERM INSULIN USE 12/30/2014 JENNY CONSTRUCTION COST ESTIMATORFLYNNMEAGAN L D 298.9 PSYCHOSIS NOS 12/30/2014 JENNY CONSTRUCTION COST ESTIMATOR, MEAGAN L D 462 ACUTE PHARYNGITIS 12/30/2014 JENNY CONSTRUCTION COST ESTIMATOR, MEAGAN L D 724.2 LUMBAGO 12/30/2014 JENNY CONSTRUCTION COST ESTIMATOR, MEAGAN L D 787.01 NAUSEA WITH VOMITING 12/30/2014 JENNY CONSTRUCTION COST ESTIMATOR, MEAGAN L D 788.1 DYSURIA 01/05/2015 JENNY CONSTRUCTION COST ESTIMATOR, MEAGAN L D 788.1 DYSURIA 02/06/2015 JENNY CONSTRUCTION COST ESTIMATOR, MEAGAN L D V58.89 OTHR SPECIFIED AFTERCARE 04/08/2015 JENNY CONSTRUCTION COST ESTIMATOR, MEAGAN L D I87.2 Venous insufficiency (chronic) ( peripheral) 04/08/2015 JENNY CONSTRUCTION COST ESTIMATOR, MEAGAN L D R05. Cough 04/08/2015 JENNY CONSTRUCTION COST ESTIMATOR, MEAGAN L D R11.2 Nausea with vomiting, unspecified 04/08/2015 JENNY CONSTRUCTION COST ESTIMATOR, MEAGAN L D R30.0 Dysuria 04/08/2015 JENNY CONSTRUCTION COST ESTIMATOR, MEAGAN L D R50.9 Fever, unspecified 05/06/2015 JENNY CONSTRUCTION COST ESTIMATOR, MEAGAN L D I87.2 Venous insufficiency (chronic) ( peripheral) 06/03/2015 JENNY CONSTRUCTION COST ESTIMATOR, MEAGAN L D I87.2 Venous insufficiency (chronic) ( peripheral) 07/08/2015 JAGRUTI FOSTERICA Lindsey Garcia M54.9 Dorsalgia, unspecified 07/08/2015 MEAGAN FOSTER D R53.83 Other fatigue 07/08/2015 JAGRUTI FOSTERICA L D R59.1 Generalized enlarged lymph nodes 07/08/2015 JAGRUTI FOSTERICA L D R73.9 Hyperglycemia, unspecified 07/08/2015 JAGRUTI FOSTERICA L D Z91.14 Patient's other noncompliance with medication regimen 08/05/2015 JAGRUTI FOSTERICA L D E11.9 Type 2 diabetes mellitus without complications 08/05/2015 MEAGAN FOSTER R05 Cough 08/05/2015 MEAGAN FOSTER R55 Syncope and collapse 08/05/2015 MEAGAN FOSTER Z45.89 Encounter for adjustment and management of implanted devices 08/05/2015 MEAGAN FOSTER Z91.14 Patient's other noncompliance with medication regimen 08/11/2015 BHANU TORRES MD E10.65 Type 1 diabetes mellitus with hyperglycemia 08/11/2015 BHANU TORRES MD E87.1 Hypo-osmolality and hyponatremia 08/11/2015 BHANU TORRES MD F32.9 Major depressive disorder, single episode, unspecified 08/11/2015 BHANU TORRES MD I10 Essential (primary) hypertension 08/11/2015 BHANU TORRES MD J02.9 Acute pharyngitis, unspecified 08/11/2015 BHANU TORRES MD R53.83 Other fatigue 08/11/2015 BHANU TORRES MD Z91.11 Patient's noncompliance with dietary regimen 08/11/2015 BHANU TORRES MD Z91.14 Patient's other noncompliance with medication regimen 08/19/2015 WALKER DO, SENIA Ot A41.9 08/19/2015 AARON DO, SENIA Ot D64.9 08/19/2015 WALKER DO, SENIA Ot E03.9 08/19/2015 WALKER DO, SENIA Ot E11.65 08/19/2015 AARON DO, SENIA Ot E66.01 08/19/2015 WALKER DO, SENIA Ot F17.210 08/19/2015 WALKER DO, SENIA Ot G47.33 08/19/2015 WALKER DO, SENIA Ot I25.10 08/19/2015 WALKER DO, SENIA Ot J11.00 08/19/2015 WALKER DO, SENIA Ot J18.9 08/19/2015 WALKER DO, SENIA Ot Z68.42 08/19/2015 WALKER DO, SENIA Ot Z79.4 08/19/2015 WALKER DO, SENIA Ot A41.9 08/19/2015 WALKER DO, SENIA Ot D64.9 08/19/2015 WALKER DO, SENIA Ot E03.9 08/19/2015 WALKER DO, SENIA Ot E11.65 08/19/2015 WALKER DO, SENIA Ot E66.01 08/19/2015 WALKER DO, SENIA Ot F17.210 08/19/2015 WALKER DO, SENIA Ot G47.33 08/19/2015 WALKER DO, SENIA Ot I25.10 08/19/2015 WALKER DO, SENIA Ot J11.00 08/19/2015 WALKER DO, SENIA Ot J18.9 08/19/2015 WALKER DO, SENIA Ot Z68.42 08/19/2015 WALKER DO, SENIA Ot Z79.4 08/19/2015 WALKER DO, SENIA Ot A41.9 08/19/2015 WALKER DO, SENIA Ot D64.9 08/19/2015 WALKER DO, SENIA Ot E03.9 08/19/2015 WALKER DO, SENIA Ot E11.65 08/19/2015 WALKER DO, SENIA Ot E66.01 08/19/2015 WALKER DO, SENIA Ot F17.210 08/19/2015 WALKER DO, SENIA Ot G47.33 08/19/2015 WALKER DO, SENIA Ot I25.10 08/19/2015 WALKER DO, SENIA Ot J11.00 08/19/2015 WALKER DO, SENIA Ot J18.9 08/19/2015 WALKER DO, SENIA Ot Z68.42 08/19/2015 WALKER DO, SENIA Ot Z79.4 08/19/2015 WALKER DO, SENIA Ot A41.9 SEPSIS, UNSPECIFIED ORGANISM 08/19/2015 AARON DO SENIA Ot D64.9 ANEMIA, UNSPECIFIED 08/19/2015 AARON DO SENIA Ot E03.9 HYPOTHYROIDISM, UNSPECIFIED 08/19/2015 AARON DO SENIA Ot E11.65 TYPE 2 DIABETES MELLITUS WITH HYPERGLYCE 08/19/2015 AARON PEREZ SENIA Ot E66.01 MORBID (SEVERE) OBESITY DUE TO EXCESS CA 08/19/2015 AARON PEREZ SENIA Ot F17.210 NICOTINE DEPENDENCE, CIGARETTES, UNCOMPL 08/19/2015 AARON PEREZ SENIA Ot G47.33 OBSTRUCTIVE SLEEP APNEA (ADULT) (PEDIATR 08/19/2015 BARBRA WALKER DOI Ot I25.10 ATHSCL HEART DISEASE OF [place] CORONARY 08/19/2015 BARBRA WALKER DOI Ot J11.00 FLU DUE TO UNIDENTIFIED FLU VIRUS W UNSP 08/19/2015 AARON PEREZ SENIA Ot J18.9 PNEUMONIA, UNSPECIFIED ORGANISM 08/19/2015 BARBRA WALKER DOI Ot Z68.42 BODY MASS INDEX (BMI) 45.0-49.9, ADULT 08/19/2015 AARON PEREZ SENIA Ot Z79.4 ELECTRONIC TRANSACTION IMPLEMENTER (CURRENT) USE OF INSULIN 08/19/2015 BARBRA WALKER DOI Ot A41.9 08/19/2015 AARON PEREZ SENIA Ot D64.9 08/19/2015 AARON PEREZ SENIA Ot E03.9 08/19/2015 AARON PEREZ SENIA Ot E11.65 08/19/2015 AARON PEREZ SENIA Ot E66.01 08/19/2015 AARON PEREZ SENIA Ot F17.210 08/19/2015 AARON PEREZ SENIA Ot G47.33 08/19/2015 AARON PEREZ SENIA Ot I25.10 08/19/2015 AARON PEREZ SENIA Ot J11.00 08/19/2015 AARON PEREZ SENIA Ot J18.9 08/19/2015 AARON PEREZ SENIA Ot Z68.42 08/19/2015 AARON PEREZ SENIA Ot Z79.4 08/28/2015 AARON PEREZ SENIA Ot A41.9 08/28/2015 AARON PEREZ SENIA Ot D64.9 08/28/2015 WALKER DO, SENIA Ot E03.9 08/28/2015 WALKER DO, SENIA Ot E11.65 08/28/2015 WALKER DO, SENIA Ot E66.01 08/28/2015 WALKER DO, SENIA Ot F17.210 08/28/2015 WALKER DO, SENIA Ot G47.33 08/28/2015 WALKER DO, SENIA Ot I25.10 08/28/2015 WALKER DO, SENIA Ot J11.00 08/28/2015 WALKER DO, SENIA Ot J18.9 08/28/2015 WALKER DO, SENIA Ot Z68.42 08/28/2015 WALKER DO, SENIA Ot Z79.4 08/28/2015 WALKER DO, SENIA Ot A41.9 08/28/2015 WALKER DO, SENIA Ot D64.9 08/28/2015 WALKER DO, SENIA Ot E03.9 08/28/2015 WALKER DO, SENIA Ot E11.65 08/28/2015 WALKER DO, SENIA Ot E66.01 08/28/2015 WALKER DO, SENIA Ot F17.210 08/28/2015 WALKER DO, SENIA Ot G47.33 08/28/2015 WALKER DO, SENIA Ot I25.10 08/28/2015 WALKER DO, SENIA Ot J11.00 08/28/2015 WALKER DO, SENIA Ot J18.9 08/28/2015 WALKER DO, SENIA Ot Z68.42 08/28/2015 WALKER DO, SENIA Ot Z79.4 08/28/2015 WALKER DO, SENIA Ot A41.9 08/28/2015 WALKER DO, SENIA Ot D64.9 08/28/2015 WALKER DO, SENIA Ot E03.9 08/28/2015 WALKER DO, SENIA Ot E11.65 08/28/2015 WALKER DO, SENIA Ot E66.01 08/28/2015 WALKER DO, SENIA Ot F17.210 08/28/2015 WALKER DO, SENIA Ot G47.33 08/28/2015 WALKER DO, SENIA Ot I25.10 08/28/2015 WALKER DO, SENIA Ot J11.00 08/28/2015 WALKER DO, SENIA Ot J18.9 08/28/2015 SENIA WALKER DO Ot Z68.42 08/28/2015 SENIA WALKER DO Ot Z79.4 09/08/2015 MEAGAN FOSTER Z87.01 Personal history of pneumonia (recurrent ) 10/12/2015 MEAGAN FOSTER I87.2 Venous insufficiency (chronic) ( peripheral) 10/12/2015 MEAGAN FOSTER Z87.01 Personal history of pneumonia (recurrent ) 12/16/2015 DIAMOND ROBISON MD, Ot E03.9 HYPOTHYROIDISM, UNSPECIFIED 12/16/2015 DIAMOND ROBISON MD Ot E11.65 TYPE 2 DIABETES MELLITUS WITH HYPERGLYCE 12/16/2015 DIAMOND ROBISON MD, Ot E66.01 MORBID (SEVERE) OBESITY DUE TO EXCESS CA 12/16/2015 DIAMOND ROBISON MD, Ot F17.210 NICOTINE DEPENDENCE, CIGARETTES, UNCOMPL 12/16/2015 DIAMOND ROBISON MD, Ot G89.4 CHRONIC PAIN SYNDROME 12/16/2015 DIAMOND ROBISON MD, Ot I25.10 ATHSCL HEART DISEASE OF [place] CORONARY 12/16/2015 DIAMOND ROBISON MD, Ot J44.9 CHRONIC OBSTRUCTIVE PULMONARY DISEASE, U 12/16/2015 DIAMOND ROBISON MD, Ot L97.429 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 12/16/2015 DIAMOND ROBISON MD, Ot R07.89 OTHER CHEST PAIN 12/16/2015 DIAMOND ROBISON MD, Ot Z68.42 BODY MASS INDEX (BMI) 45.0-49.9, ADULT 12/16/2015 DIAMOND ROBISON MD, Ot Z79.4 SHELTER (CURRENT) USE OF INSULIN 12/16/2015 DIAMOND ROBISON MD Ot Z95.5 PRESENCE OF CORONARY ANGIOPLASTY IMPLANT 02/01/2016 MIRZA MARTINO Ot R22.2 LOCALIZED SWELLING, MASS AND LUMP, TRUNK 02/01/2016 MADLMIRZA Ot R22.2 LOCALIZED SWELLING, MASS AND LUMP, TRUNK 02/01/2016 MASHA GONZALEZ MD Ot E78.5 HYPERLIPIDEMIA, UNSPECIFIED 02/01/2016 MASHA GONZALEZ MD Ot I10 ESSENTIAL (PRIMARY) HYPERTENSION 02/01/2016 MASHA GONZALEZ MD Ot M79.606 PAIN IN LEG, UNSPECIFIED 02/01/2016 MASHA GONZALEZ MD Ot R00.2 PALPITATIONS 02/01/2016 MASHA GONZALEZ MD Ot R07.9 CHEST PAIN, UNSPECIFIED 02/01/2016 MASHA GONZALEZ MD Ot Z82.49 FAMILY HX OF ISCHEM HEART DIS AND OTH DI 02/09/2016 MADL, MIRZA L CONSTRUCTION COST ESTIMATOR Ot R22.2 LOCALIZED SWELLING, MASS AND LUMP, TRUNK 02/09/2016 MASHA GONZALEZ MD Ot E78.5 HYPERLIPIDEMIA, UNSPECIFIED 02/09/2016 MASHA GONZALEZ MD Ot I10 ESSENTIAL (PRIMARY) HYPERTENSION 02/09/2016 MASHA GONZALEZ MD Ot M79.606 PAIN IN LEG, UNSPECIFIED 02/09/2016 MASHA GONZALEZ MD Ot R00.2 PALPITATIONS 02/09/2016 MASHA GONZALEZ MD Ot R07.9 CHEST PAIN, UNSPECIFIED 02/09/2016 MASHA GONZALEZ MD Ot Z82.49 FAMILY HX OF ISCHE[place] HEART DIS AND OTH DI 02/11/2016 MADL, MIRZA L CONSTRUCTION COST ESTIMATOR Ot R22.2 LOCALIZED SWELLING, MASS AND LUMP, TRUNK 02/11/2016 MASHA GONZALEZ MD Ot E78.5 HYPERLIPIDEMIA, UNSPECIFIED 02/11/2016 MASHA GONZALEZ MD Ot I10 ESSENTIAL (PRIMARY) HYPERTENSION 02/11/2016 MASHA GONZALEZ MD Ot M79.606 PAIN IN LEG, UNSPECIFIED 02/11/2016 MASHA GONZALEZ MD Ot R00.2 PALPITATIONS 02/11/2016 MASHA GONZALEZ MD Ot R07.9 CHEST PAIN, UNSPECIFIED 02/11/2016 MASHA GONZALEZ MD Ot Z82.49 FAMILY HX OF ISCHE[place] HEART DIS AND OTH DI 02/15/2016 MADL, MIRZA L CONSTRUCTION COST ESTIMATOR Ot R22.2 LOCALIZED SWELLING, MASS AND LUMP, TRUNK 02/15/2016 MASHA GONZALEZ MD Ot E78.5 HYPERLIPIDEMIA, UNSPECIFIED 02/15/2016 MASHA GONZALEZ MD Ot I10 ESSENTIAL (PRIMARY) HYPERTENSION 02/15/2016 MASHA GONZALEZ MD Ot M79.606 PAIN IN LEG, UNSPECIFIED 02/15/2016 MASHA GONZALEZ MD Ot R00.2 PALPITATIONS 02/15/2016 MASHA GONZALEZ MD Ot R07.9 CHEST PAIN, UNSPECIFIED 02/15/2016 MASHA GONZALEZ MD Ot Z82.49 FAMILY HX OF ISCHEM HEART DIS AND OTH DI 02/16/2016 MASHA GONZALEZ MD Ot E78.5 HYPERLIPIDEMIA, UNSPECIFIED 02/16/2016 MASHA GONZALEZ MD Ot I10 ESSENTIAL (PRIMARY) HYPERTENSION 02/16/2016 MASHA GONZALEZ MD Ot M79.606 PAIN IN LEG, UNSPECIFIED 02/16/2016 MASHA GONZALEZ MD Ot R00.2 PALPITATIONS 02/16/2016 MASHA GONZALEZ MD Ot R07.9 CHEST PAIN, UNSPECIFIED 02/16/2016 MASHA GONZALEZ MD Ot Z82.49 FAMILY HX OF ISCHEM HEART DIS AND OTH DI 02/22/2016 GHADA BOSE MD Ot M54.5 LOW BACK PAIN 02/23/2016 MADL, MIRZA L CONSTRUCTION COST ESTIMATOR Ot R22.2 LOCALIZED SWELLING, MASS AND LUMP, TRUNK 02/23/2016 MASHA GONZALEZ MD Ot E78.5 HYPERLIPIDEMIA, UNSPECIFIED 02/23/2016 MASHA GONZALEZ MD Ot I10 ESSENTIAL (PRIMARY) HYPERTENSION 02/23/2016 MASHA GONZALEZ MD Ot M79.606 PAIN IN LEG, UNSPECIFIED 02/23/2016 MASHA GONZALEZ MD Ot R00.2 PALPITATIONS 02/23/2016 MASHA GONZALEZ MD Ot R07.9 CHEST PAIN, UNSPECIFIED 02/23/2016 MASHA GONZALEZ MD Ot Z82.49 FAMILY HX OF ISCHEM HEART DIS AND OTH DI 02/23/2016 MASHA GONZALEZ MD Ot E78.5 HYPERLIPIDEMIA, UNSPECIFIED 02/23/2016 MASHA GONZALEZ MD Ot I10 ESSENTIAL (PRIMARY) HYPERTENSION 02/23/2016 MASHA GONZALEZ MD Ot M79.606 PAIN IN LEG, UNSPECIFIED 02/23/2016 MASHA GONZALEZ MD Ot R00.2 PALPITATIONS 02/23/2016 MASHA GONZALEZ MD Ot R07.9 CHEST PAIN, UNSPECIFIED 02/23/2016 MASHA GONZALEZ MD Ot Z82.49 FAMILY HX OF ISCHEM HEART DIS AND OTH DI 02/23/2016 MIRZA MARTINO CON[employer] COST ESTIMATOR Ot N64.52 NIPPLE DISCHARGE 02/23/2016 GHADA BOSE MD Ot M54.5 LOW BACK PAIN 03/02/2016 MASHA GONZALEZ MD Ot E03.9 HYPOTHYROIDISM, UNSPECIFIED 03/02/2016 MASHA GONZALEZ MD Ot E11.9 TYPE 2 DIABETES MELLITUS WITHOUT COMPLIC 03/02/2016 MASHA GONZALEZ MD Ot E66.9 OBESITY, UNSPECIFIED 03/02/2016 MASHA GONZALEZ MD Ot E78.5 HYPERLIPIDEMIA, UNSPECIFIED 03/02/2016 MASHA GONZALEZ MD Ot I10 ESSENTIAL (PRIMARY) HYPERTENSION 03/02/2016 MASHA GONZALEZ MD Ot I25.10 ATHSCL HEART DISEASE OF [place] CORONARY 03/02/2016 MASHA GONZALEZ MD Ot I45.9 CONDUCTION DISORDER, UNSPECIFIED 03/02/2016 MASHA GONZALEZ MD Ot M79.7 FIBROMYALGIA 03/02/2016 MASHA GONZALEZ MD Ot R07.9 CHEST PAIN, UNSPECIFIED 03/02/2016 MASHA GONZALEZ MD Ot Z68.42 BODY MASS INDEX (BMI) 45.0-49.9, ADULT 03/02/2016 MASHA GONZALEZ MD Ot Z79.4 SHELTER (CURRENT) USE OF INSULIN 03/02/2016 MASHA GONZALEZ MD Ot Z79.899 OTHER SHELTER (CURRENT) DRUG THERAPY 03/02/2016 MASHA GONZALEZ MD Ot Z82.49 FAMILY HX OF ISCHEM HEART DIS AND OTH DI 03/10/2016 MASHA GONZALEZ MD Ot E78.5 HYPERLIPIDEMIA, UNSPECIFIED 03/10/2016 MASAH GONZALEZ MD Ot I10 ESSENTIAL (PRIMARY) HYPERTENSION 03/10/2016 MASHA GONZALEZ MD Ot M79.606 PAIN IN LEG, UNSPECIFIED 03/10/2016 MASHA GONZALEZ MD Ot R00.2 PALPITATIONS 03/10/2016 MASHA GONZALEZ MD Ot R07.9 CHEST PAIN, UNSPECIFIED 03/10/2016 MASHA GONZALEZ MD Ot Z82.49 FAMILY HX OF ISCHEM HEART DIS AND OTH DI 03/28/2016 MASHA GONZALEZ MD Ot E03.9 HYPOTHYROIDISM, UNSPECIFIED 03/28/2016 MASHA GONZALEZ MD Ot E11.9 TYPE 2 DIABETES MELLITUS WITHOUT COMPLIC 03/28/2016 MASHA GONZALEZ MD Ot E66.9 OBESITY, UNSPECIFIED 03/28/2016 MASHA GONZALEZ MD Ot E78.5 HYPERLIPIDEMIA, UNSPECIFIED 03/28/2016 MASHA GONZALEZ MD Ot I10 ESSENTIAL (PRIMARY) HYPERTENSION 03/28/2016 MASHA GONZALEZ MD Ot I25.10 ATHSCL HEART DISEASE OF [place] CORONARY 03/28/2016 MASHA GONZALEZ MD Ot I45.9 CONDUCTION DISORDER, UNSPECIFIED 03/28/2016 MASHA GONZALEZ MD Ot M79.7 FIBROMYALGIA 03/28/2016 MASHA GONZALEZ MD Ot R07.9 CHEST PAIN, UNSPECIFIED 03/28/2016 MASHA GONZALEZ MD Ot Z68.42 BODY MASS INDEX (BMI) 45.0-49.9, ADULT 03/28/2016 MASHA GONZALEZ MD Ot Z79.4 ELECTRONIC TRANSACTION IMPLEMENTER (CURRENT) USE OF INSULIN 03/28/2016 MASHA GONZALEZ MD Ot Z79.899 OTHER SHELTER (CURRENT) DRUG THERAPY 03/28/2016 MASHA GONZALEZ MD Ot Z82.49 FAMILY HX OF [place] HEART DIS AND OTH DI 03/30/2016 MASHA GONZALEZ MD Ot E03.9 HYPOTHYROIDISM, UNSPECIFIED 03/30/2016 MASHA GONZALEZ MD Ot E11.9 TYPE 2 DIABETES MELLITUS WITHOUT COMPLIC 03/30/2016 MASHA GONZALEZ MD Ot E66.9 OBESITY, UNSPECIFIED 03/30/2016 MASHA GONZALEZ MD Ot E78.5 HYPERLIPIDEMIA, UNSPECIFIED 03/30/2016 MASHA GONZALEZ MD Ot I10 ESSENTIAL (PRIMARY) HYPERTENSION 03/30/2016 MASHA GONZALEZ MD Ot I25.10 ATHSCL HEART DISEASE OF [place] CORONARY 03/30/2016 MASHA GONZALEZ MD Ot I45.9 CONDUCTION DISORDER, UNSPECIFIED 03/30/2016 MASHA GONZALEZ MD Ot M79.7 FIBROMYALGIA 03/30/2016 MASHA GONZALEZ MD Ot R07.9 CHEST PAIN, UNSPECIFIED 03/30/2016 MASHA GONZALEZ MD Ot Z68.42 BODY MASS INDEX (BMI) 45.0-49.9, ADULT 03/30/2016 MASHA GONZALEZ MD Ot Z79.4 ELECTRONIC TRANSACTION IMPLEMENTER (CURRENT) USE OF INSULIN 03/30/2016 MASAH GONZALEZ MD Ot Z79.899 OTHER SHELTER (CURRENT) DRUG THERAPY 03/30/2016 MASHA GONZALEZ MD, Ot Z82.49 FAMILY HX OF [place] HEART DIS AND OTH DI 03/31/2016 GHADA BOSE MD Ot M54.5 LOW BACK PAIN 04/12/2016 ELELA ZEPEDA MD Ot E07.9 DISORDER OF THYROID, UNSPECIFIED 04/12/2016 LEELA ZEPEDA MD Ot E11.65 TYPE 2 DIABETES MELLITUS WITH HYPERGLYCE 04/12/2016 LEELA ZEPEDA MD Ot F17.210 NICOTINE DEPENDENCE, CIGARETTES, UNCOMPL 04/12/2016 LEELA ZEPEDA MD Ot I10 ESSENTIAL (PRIMARY) HYPERTENSION 04/12/2016 LEELA ZEPEDA MD Ot J44.9 CHRONIC OBSTRUCTIVE PULMONARY DISEASE , U 04/12/2016 LEELA ZEPEDA MD Ot R07.89 OTHER CHEST PAIN 04/12/2016 LEELA ZEPEDA MD Ot R11.2 NAUSEA WITH VOMITING, UNSPECIFIED 04/12/2016 LEELA ZEPEDA MD Ot R19.7 DIARRHEA, UNSPECIFIED 04/12/2016 LEELA ZEPEDA MD Ot Z79.4 SHELTER (CURRENT) USE OF INSULIN 04/12/2016 LEELA ZEPEDA MD Ot Z79.899 OTHER SHELTER (CURRENT) DRUG THERAPY 04/13/2016 LEELA ZEPEDA MD Ot E07.9 DISORDER OF THYROID, UNSPECIFIED 04/13/2016 LEELA ZEPEDA MD Ot E11.65 TYPE 2 DIABETES MELLITUS WITH HYPERGLYCE 04/13/2016 LEELA ZEPEDA MD Ot F17.210 NICOTINE DEPENDENCE, CIGARETTES, UNCOMPL 04/13/2016 LEELA ZEPEDA MD Ot I10 ESSENTIAL (PRIMARY) HYPERTENSION 04/13/2016 LEELA ZEPEDA MD Ot J44.9 CHRONIC OBSTRUCTIVE PULMONARY DISEASE , U 04/13/2016 LEELA ZEPEDA MD Ot R07.89 OTHER CHEST PAIN 04/13/2016 LEELA ZEPEDA MD Ot R11.2 NAUSEA WITH VOMITING, UNSPECIFIED 04/13/2016 LEELA ZEPEDA MD Ot R19.7 DIARRHEA, UNSPECIFIED 04/13/2016 LEELA ZEPEDA MD Ot Z79.4 ELECTRONIC TRANSACTION IMPLEMENTER (CURRENT) USE OF INSULIN 04/13/2016 LEELA ZEPEDA MD Ot Z79.899 OTHER SHELTER (CURRENT) DRUG THERAPY 05/05/2016 MIRZA MARTINO CONSTRUCTION COST ESTIMATOR Ot R22.2 LOCALIZED SWELLING, MASS AND LUMP, TRUNK 05/05/2016 MASHA GONZALEZ MD Ot E78.5 HYPERLIPIDEMIA, UNSPECIFIED 05/05/2016 MASHA GONZALEZ MD Ot I10 ESSENTIAL (PRIMARY) HYPERTENSION 05/05/2016 MASHA GONZALEZ MD Ot M79.606 PAIN IN LEG, UNSPECIFIED 05/05/2016 MASHA GONZALEZ MD Ot R00.2 PALPITATIONS 05/05/2016 MASHA GONZALEZ MD Ot R07.9 CHEST PAIN, UNSPECIFIED 05/05/2016 MASHA GONZALEZ MD Ot Z82.49 FAMILY HX OF [place] HEART DIS AND OTH DI 05/05/2016 MASHA GONZALEZ MD Ot E78.5 HYPERLIPIDEMIA, UNSPECIFIED 05/05/2016 MASHA GONZALEZ MD Ot I10 ESSENTIAL (PRIMARY) HYPERTENSION 05/05/2016 MASHA GONZALEZ MD Ot M79.606 PAIN IN LEG, UNSPECIFIED 05/05/2016 MASHA GONZALEZ MD Ot R00.2 PALPITATIONS 05/05/2016 MASHA GONZALEZ MD Ot R07.9 CHEST PAIN, UNSPECIFIED 05/05/2016 MASHA GONZALEZ MD Ot Z82.49 FAMILY HX OF [place] HEART DIS AND OTH DI 05/05/2016 MIRZA MARTINO CONSTRUCTION COST ESTIMATOR Ot N64.52 NIPPLE DISCHARGE 05/05/2016 GHADA BOSE MD Ot M54.5 LOW BACK PAIN 05/11/2016 GLEN AVERY Ot R00.2 PALPITATIONS 05/26/2016 MADL, MIRZA L CONSTRUCTION COST ESTIMATOR Ot N64.52 NIPPLE DISCHARGE 05/26/2016 GLEN AVERY Ot R00.2 PALPITATIONS 06/09/2016 BORJAS DO, ALLA Lindsey Ot E88.81 METABOLIC SYNDROME 06/22/2016 GENE RAMOS, NELLY Christensen Ot A08.4 VIRAL INTESTINAL INFECTION, UNSPECIFIED 06/24/2016 MADL, MIRZA L CONSTRUCTION COST ESTIMATOR Ot M79.661 PAIN IN RIGHT LOWER LEG 06/24/2016 MADL, MIRZA L CONSTRUCTION COST ESTIMATOR Ot N92.1 EXCESSIVE AND FREQUENT MENSTRUATION WITH 06/24/2016 MADL, MIRZA L CONSTRUCTION COST ESTIMATOR Ot Z90.710 ACQUIRED ABSENCE OF BOTH CERVIX AND UTER 06/24/2016 MADL, MIRZA L CONSTRUCTION COST ESTIMATOR Ot Z90.721 ACQUIRED ABSENCE OF OVARIES, UNILATERAL 06/24/2016 MADL, MIRZA L CONSTRUCTION COST ESTIMATOR Ot M79.661 PAIN IN RIGHT LOWER LEG 06/24/2016 MADL, MIRZA L CONSTRUCTION COST ESTIMATOR Ot N92.1 EXCESSIVE AND FREQUENT MENSTRUATION WITH 06/24/2016 MADL, MIRZA L CONSTRUCTION COST ESTIMATOR Ot Z90.710 ACQUIRED ABSENCE OF BOTH CERVIX AND UTER 06/24/2016 MADL, MIRZA L CONSTRUCTION COST ESTIMATOR Ot Z90.721 ACQUIRED ABSENCE OF OVARIES, UNILATERAL 06/29/2016 MADL, MIRZA L CONSTRUCTION COST ESTIMATOR Ot M79.661 PAIN IN RIGHT LOWER LEG 06/29/2016 MADL, MIRZA L CONSTRUCTION COST ESTIMATOR Ot N92.1 EXCESSIVE AND FREQUENT MENSTRUATION WITH 06/29/2016 MADL, MIRZA L CONSTRUCTION COST ESTIMATOR Ot Z90.710 ACQUIRED ABSENCE OF BOTH CERVIX AND UTER 06/29/2016 MADL, MIRZA L CONSTRUCTION COST ESTIMATOR Ot Z90.721 ACQUIRED ABSENCE OF OVARIES, UNILATERAL 06/29/2016 MADL, MIRZA L CONSTRUCTION COST ESTIMATOR Ot M79.661 PAIN IN RIGHT LOWER LEG 06/29/2016 MADL, MIRZA L CONSTRUCTION COST ESTIMATOR Ot N92.1 EXCESSIVE AND FREQUENT MENSTRUATION WITH 06/29/2016 MADL, MIRZA L CONSTRUCTION COST ESTIMATOR Ot Z90.710 ACQUIRED ABSENCE OF BOTH CERVIX AND UTER 06/29/2016 MADMIRZA Portillo CONSTRUCTION COST ESTIMATOR Ot Z90.721 ACQUIRED ABSENCE OF OVARIES, UNILATERAL 07/07/2016 MADMIRZA Portillo CONSTRUCTION COST ESTIMATOR Ot M79.661 PAIN IN RIGHT LOWER LEG 07/07/2016 MIRZA MARTINO CONSTRUCTION COST ESTIMATOR Ot N92.1 EXCESSIVE AND FREQUENT MENSTRUATION WITH 07/07/2016 MADMIRZA Portillo CONSTRUCTION COST ESTIMATOR Ot Z90.710 ACQUIRED ABSENCE OF BOTH CERVIX AND UTER 07/07/2016 MADMIRZA Portillo CONSTRUCTION COST ESTIMATOR Ot Z90.721 ACQUIRED ABSENCE OF OVARIES, UNILATERAL 07/18/2016 SARAH ARCHER MD Ot E03.9 HYPOTHYROIDISM, UNSPECIFIED 07/18/2016 SARAH ARCHER MD Ot E11.65 TYPE 2 DIABETES MELLITUS WITH HYPERGLYCE 07/18/2016 SARAH ARCHER MD, Ot E66.01 MORBID (SEVERE) OBESITY DUE TO EXCESS CA 07/18/2016 SARAH ARCHER MD Ot E78.00 PURE HYPERCHOLESTEROLEMIA, UNSPECIFIED 07/18/2016 SARAH ARCHER MD, Ot E78.5 HYPERLIPIDEMIA, UNSPECIFIED 07/18/2016 SARAH ARCHER MD, Ot E86.0 DEHYDRATION 07/18/2016 SARAH ARCHER MD Ot F17.210 NICOTINE DEPENDENCE, CIGARETTES, UNCOMPL 07/18/2016 SARAH ARCHER MD, Ot F32.9 MAJOR DEPRESSIVE DISORDER, SINGLE EPISOD 07/18/2016 SARAH ARCHER MD, Ot F41.9 ANXIETY DISORDER, UNSPECIFIED 07/18/2016 SARAH ARCHER MD Ot G89.4 CHRONIC PAIN SYNDROME 07/18/2016 SARAH ARCHER MD, Ot I10 ESSENTIAL (PRIMARY) HYPERTENSION 07/18/2016 SARAH ARCHER MD, Ot I25.10 ATHSCL HEART DISEASE OF [place] CORONARY 07/18/2016 SARAH ARCHER MD, Ot J44.9 CHRONIC OBSTRUCTIVE PULMONARY DISEASE, U 07/18/2016 SARAH ARCHER MD, Ot M79.7 FIBROMYALGIA 07/18/2016 SARAH ARCHER MD, Ot R10.11 RIGHT UPPER QUADRANT PAIN 07/18/2016 SARAH ARCHER MD, Ot R19.7 DIARRHEA, UNSPECIFIED 07/18/2016 SARAH ARCHER MD, Ot Z79.4 SHELTER (CURRENT) USE OF INSULIN 07/18/2016 SARAH ARCHER MD Ot E03.9 HYPOTHYROIDISM, UNSPECIFIED 07/18/2016 SARAH ARCHER MD, Ot E11.65 TYPE 2 DIABETES MELLITUS WITH HYPERGLYCE 07/18/2016 SARAH ARCHER MD Ot E66.01 MORBID (SEVERE) OBESITY DUE TO EXCESS CA 07/18/2016 SARAH ARCHER MD Ot E78.00 PURE HYPERCHOLESTEROLEMIA, UNSPECIFIED 07/18/2016 SARAH ARCHER MD, Ot E78.5 HYPERLIPIDEMIA, UNSPECIFIED 07/18/2016 SARAH ARCHER MD Ot E86.0 DEHYDRATION 07/18/2016 SARAH ARCHER MD, Ot F17.210 NICOTINE DEPENDENCE, CIGARETTES, UNCOMPL 07/18/2016 SARAH ARCHER MD, Ot F32.9 MAJOR DEPRESSIVE DISORDER, SINGLE EPISOD 07/18/2016 SARAH ARCHER MD, Ot F41.9 ANXIETY DISORDER, UNSPECIFIED 07/18/2016 SARAH ARCHER MD, Ot G89.4 CHRONIC PAIN SYNDROME 07/18/2016 SARAH ARCHER MD Ot I10 ESSENTIAL (PRIMARY) HYPERTENSION 07/18/2016 SARAH ARCHER MD, Ot I25.10 ATHSCL HEART DISEASE OF [place] CORONARY 07/18/2016 SARAH ARCHER MD, Ot J44.9 CHRONIC OBSTRUCTIVE PULMONARY DISEASE, U 07/18/2016 SARAH ARCHER MD Ot M79.7 FIBROMYALGIA 07/18/2016 SARAH ARCHER MD Ot R10.11 RIGHT UPPER QUADRANT PAIN 07/18/2016 SARAH ARCHER MD, Ot R19.7 DIARRHEA, UNSPECIFIED 07/18/2016 SARAH ARCHER MD, Ot Z79.4 ELECTRONIC TRANSACTION IMPLEMENTER (CURRENT) USE OF INSULIN 07/25/2016 SARAH ARCHER MD, Ot E03.9 HYPOTHYROIDISM, UNSPECIFIED 07/25/2016 SARAH ARCHER MD, Ot E11.65 TYPE 2 DIABETES MELLITUS WITH HYPERGLYCE 07/25/2016 SARAH ARCHER MD, Ot E66.01 MORBID (SEVERE) OBESITY DUE TO EXCESS CA 07/25/2016 SARAH ARCHER MD, Ot E78.00 PURE HYPERCHOLESTEROLEMIA, UNSPECIFIED 07/25/2016 SARAH ARCHER MD, Ot E78.5 HYPERLIPIDEMIA, UNSPECIFIED 07/25/2016 SARAH ARCHER MD Ot E86.0 DEHYDRATION 07/25/2016 SARAH ARCHER MD, Ot F17.210 NICOTINE DEPENDENCE, CIGARETTES, UNCOMPL 07/25/2016 SARAH ARCHER MD Ot F32.9 MAJOR DEPRESSIVE DISORDER, SINGLE EPISOD 07/25/2016 SARAH ARCHER MD, Ot F41.9 ANXIETY DISORDER, UNSPECIFIED 07/25/2016 SARAH ARCHER MD Ot G89.4 CHRONIC PAIN SYNDROME 07/25/2016 SARAH ARCHER MD, Ot I10 ESSENTIAL (PRIMARY) HYPERTENSION 07/25/2016 SARAH ARCHER MD, Ot I25.10 ATHSCL HEART DISEASE OF [place] CORONARY 07/25/2016 SARAH ARCHER MD, Ot J44.9 CHRONIC OBSTRUCTIVE PULMONARY DISEASE, U 07/25/2016 SARAH ARCHER MD Ot M79.7 FIBROMYALGIA 07/25/2016 SARAH ARCHER MD, Ot R10.11 RIGHT UPPER QUADRANT PAIN 07/25/2016 SARAH ARCHER MD, Ot R19.7 DIARRHEA, UNSPECIFIED 07/25/2016 SARAH ARCHER MD, Ot Z79.4 SHELTER (CURRENT) USE OF INSULIN 07/25/2016 SARAH ARCHER MD Ot E03.9 HYPOTHYROIDISM, UNSPECIFIED 07/25/2016 SARAH ARCHER MD Ot E11.65 TYPE 2 DIABETES MELLITUS WITH HYPERGLYCE 07/25/2016 SARAH ARCHER MD Ot E66.01 MORBID (SEVERE) OBESITY DUE TO EXCESS CA 07/25/2016 SARAH ARCHER MD Ot E78.00 PURE HYPERCHOLESTEROLEMIA, UNSPECIFIED 07/25/2016 SARAH ARCHER MD, Ot E78.5 HYPERLIPIDEMIA, UNSPECIFIED 07/25/2016 SARAH ARCHER MD Ot E86.0 DEHYDRATION 07/25/2016 SARAH ARCHER MD, Ot F17.210 NICOTINE DEPENDENCE, CIGARETTES, UNCOMPL 07/25/2016 SARAH ARCHER MD, Ot F32.9 MAJOR DEPRESSIVE DISORDER, SINGLE EPISOD 07/25/2016 SARAH ARCHER MD Ot F41.9 ANXIETY DISORDER, UNSPECIFIED 07/25/2016 SARAH ARCHER MD Ot G89.4 CHRONIC PAIN SYNDROME 07/25/2016 SARAH ARCHER MD Ot I10 ESSENTIAL (PRIMARY) HYPERTENSION 07/25/2016 SARAH ARCHER MD Ot I25.10 ATHSCL HEART DISEASE OF [place] CORONARY 07/25/2016 SARAH ARCHER MD Ot J44.9 CHRONIC OBSTRUCTIVE PULMONARY DISEASE, U 07/25/2016 SARAH ARCHER MD Ot M79.7 FIBROMYALGIA 07/25/2016 SARAH ARCHER MD Ot R10.11 RIGHT UPPER QUADRANT PAIN 07/25/2016 SARAH ARCHER MD Ot R19.7 DIARRHEA, UNSPECIFIED 07/25/2016 SARAH ARCHER MD Ot Z79.4 SHELTER (CURRENT) USE OF INSULIN 08/03/2016 ALLA BORJAS DO Ot E88.81 METABOLIC SYNDROME 08/04/2016 ALLA BORJAS DO Ot E88.81 METABOLIC SYNDROME 2016 MADL, MIRZA L CONSTRUCTION COST ESTIMATOR Ot M25.511 PAIN IN RIGHT SHOULDER 2016 MADL, MIRZA L CONSTRUCTION COST ESTIMATOR Ot M54.2 CERVICALGIA 2016 MADL, MIRZA L CONSTRUCTION COST ESTIMATOR Ot R42 DIZZINESS AND GIDDINESS 2016 MADL, MIRZA L CONSTRUCTION COST ESTIMATOR Ot R55 SYNCOPE AND COLLAPSE 09/06/2016 MADL, MIRZA L CONSTRUCTION COST ESTIMATOR Ot M25.511 PAIN IN RIGHT SHOULDER 09/06/2016 MADL, MIRZA L CONSTRUCTION COST ESTIMATOR Ot M54.2 CERVICALGIA 09/06/2016 MADL, MIRZA L CONSTRUCTION COST ESTIMATOR Ot R42 DIZZINESS AND GIDDINESS 09/06/2016 MADL, MIRZA L CONSTRUCTION COST ESTIMATOR Ot R55 SYNCOPE AND COLLAPSE 09/15/2016 MADL, MIRZA L CONSTRUCTION COST ESTIMATOR Ot M25.511 PAIN IN RIGHT SHOULDER 09/15/2016 MADL, MIRZA L CONSTRUCTION COST ESTIMATOR Ot M54.2 CERVICALGIA 09/15/2016 MADL, MIRZA L CONSTRUCTION COST ESTIMATOR Ot R42 DIZZINESS AND GIDDINESS 09/15/2016 MADL, MIRZA L CONSTRUCTION COST ESTIMATOR Ot R55 SYNCOPE AND COLLAPSE 09/20/2016 IVIS SEARS, GLEN K Ot E78.2 MIXED HYPERLIPIDEMIA 09/20/2016 IVIS SEARS, GLEN K Ot I10 ESSENTIAL (PRIMARY) HYPERTENSION 09/20/2016 IVIS SEARS, GLEN Guy Ot I50.9 HEART FAILURE, UNSPECIFIED 09/20/2016 IVIS SEARS, GLEN K Ot R00.2 PALPITATIONS 09/30/2016 IVIS SEARS, GLEN K Ot E78.2 MIXED HYPERLIPIDEMIA 09/30/2016 IVIS SEARS, GLEN K Ot I10 ESSENTIAL (PRIMARY) HYPERTENSION 09/30/2016 IVIS SEARS, GLEN K Ot I50.9 HEART FAILURE, UNSPECIFIED 09/30/2016 IVIS SEARS, GLEN Tovar Ot R00.2 PALPITATIONS 10/10/2016 INDIO PEREZ ALLA L Ot E88.81 METABOLIC SYNDROME 10/22/2016 MIRZA MARTINO Ot M79.662 PAIN IN LEFT LOWER LEG Procedures Code Description [place] [address] ROUTINE VENIPUNCTURE [facility] 07/13/2005 27368 CHEST X-RAY [facility] 07/13/2005 26610 COMPREHEN METABOLIC PANEL [facility] 07/13/2005 87963 ASSAY OF CK (CPK) [facility] 07/13/2005 57474 CREATINE, MB FRACTION [facility] 07/13/2005 73926 ASSAY OF TROPONIN, QUANT [facility] 07/13/2005 72246 COMPLETE CBC W/AUTO DIFF WBC [facility] 07/13/2005 42591 ELECTROCARDIOGRAM, COMPLETE JANINE GONZALEZ MD 07/13/2005 95432 EMERGENCY DEPT VISIT [facility] 07/13/2005 72295 ROUTINE VENIPUNCTURE JANINE GONZALEZ MD 08/14/2005 07972 COMPREHEN METABOLIC PANEL JANINE GONZALEZ MD 08/14/2005 30453 COMPLETE CBC W/AUTO DIFF WBC JANINE GONZALEZ MD 08/14/2005 34001 THER/PROPH/DIAG INJ, SC/IM JANINE GONZALEZ MD 08/14/2005 61331 EMERGENCY DEPT VISIT JANINE GONZALEZ MD 08/14/2005 9929 INJECT/INFUSE NEC JANINE GONZALEZ MD 08/14/2005 J3250 TIGAN INJ 100MG JANINE GONZALEZ MD 08/14/2005 61717 EMERGENCY DEPT VISIT PRIYA BECERRA MD 01/07/2009 31147 ROUTINE VENIPUNCTURE [facility] MIRZA YATES L 06/30/2011 75932 X-RAY EXAM OF KNEE, 3 [facility] MIRZA YATES L 06/30/2011 19702 COMPREHEN METABOLIC PANEL [facility] MIRZA YATES L 06/30/2011 57106 MICROALBUMIN, SEMIQUANT [facility] MIRZA YATES L 06/30/2011 45894 ASSAY OF URINE CREATININE [facility] MIRZA YATES L 06/30/2011 24871 GLYCOSYLATED HEMOGLOBIN TEST [facility] MIRZA YATES L 06/30/2011 14151 ASSAY THYROID STIM HORMONE [facility] MIRZA YATES L 06/30/2011 31821 COMPLETE CBC W/AUTO DIFF WBC [facility] MIRZA YATES L 06/30/2011 49475 VITAMIN B-12 [facility] MIRZA YATES L 07/14/2011 19610 ECG MONITOR/RECORD, 24 HRS [facility] MIRZA YATES L 07/14/2011 76409 ROUTINE VENIPUNCTURE [facility] MIRZA YATES L 09/15/2011 71184 COMPREHEN METABOLIC PANEL [facility] MIRZA YATES L 09/15/2011 94603 ASSAY OF AMYLASE [facility] MIRZA YATES L 09/15/2011 18986 ASSAY OF LIPASE [facility] NANO YATESA L 09/15/2011 06787 COMPLETE CBC W/AUTO DIFF WBC [facility] MIRZA YATES L 09/15/2011 90735 HELICOBACTER PYLORI [facility] NANO YATESA L 09/15/2011 08714 ROUTINE VENIPUNCTURE JENNY GURROLA, MEAGAN L 10/25/2011 91713 COMPREHEN METABOLIC PANEL [employer] CONSTRUCTION COST ESTIMATOR, MEAGAN L 10/25/2011 26261 NATRIURETIC PEPTIDE [employer] CONSTRUCTION COST ESTIMATOR, MEAGAN L 10/25/2011 27535 COMPLETE CBC W/AUTO DIFF WBC JENNY YATESP, MEAGAN L 10/25/2011 69967 FIBRIN DEGRADATION, QUANT JENNY GURROLA, MEAGAN L 10/25/2011 93432 PROTHROMBIN TIME JENNY GURROLA, MEAGAN L 10/25/2011 49986 MYCOPLASMA ANTIBODY JENNY GURROLA, MEAGAN L 10/25/2011 15666 X-RAY EXAM OF NECK SPINE MEAGAN FOSTER L 01/03/2012 48358 X-RAY EXAM OF LOWER SPINE MEAGAN FOSTER L 01/03/2012 82500 [facility], MIRZA L 01/06/2012 90077 COMPREHEN METABOLIC PANEL [facility], MIRZA L 01/06/2012 14332 URINALYSIS, AUTO W/SCOPE [facility], MIRZA L 01/06/2012 80205 [facility] AMYLASE [facility] 01/06/2012 88945 GLYCOSYLATED HEMOGLOBIN TEST [facility] , MIRZA L 01/06/2012 89976 [facility] LIPASE [facility] 01/06/2012 12515 ASSAY THYROID STIM HORMONE [facility], MIRZA L 01/06/2012 68549 COMPLETE CBC W/AUTO DIFF WBC [facility] , MIRZA L 01/06/2012 47632 ROUTINE VENIPUNCTURE [facility], MIRZA L 01/26/2012 89602 CHEST X-RAY [facility] 01/26/2012 23489 COMPREHEN METABOLIC PANEL [facility], MIRZA L 01/26/2012 16371 COMPLETE CBC W/AUTO DIFF WBC [facility] SORAYAMIRZA L 01/26/2012 31184 MYCOPLASMA ANTIBODY [facility], MIRZA L 01/26/2012 47366 ROUTINE VENIPUNCTURE [facility], MIRZA L 03/01/2012 93869 X-RAY EXAM SERIES, ABDOMEN [facility], MIRZA L 03/01/2012 97147 COMPREHEN METABOLIC PANEL [facility], MIRZA L 03/01/2012 69316 URINALYSIS, AUTO W/SCOPE [facility], MIRZA L 03/01/2012 85018 BL SMEAR W/DIFF [facility]BC [facility] 03/01/2012 82383 COMPLETE CBC, AUTOMATED [facility], MIRZA L 03/01/2012 23223 ELECTROCARDIOGRAM, TRACING [facility], MIRZA L 03/01/2012 49627 ELECTROCARDIOGRAM REPORT BRIAN RAMOS, BHANU L 03/01/2012 67552 ROUTINE VENIPUNCTURE MADL NANO YATESA L 03/23/2012 90904 COMPREHEN METABOLIC PANEL [facility] TR[facility]Y, MIRZA L 03/23/2012 42282 ASSAY OF AMYLASE MADL SORAYA YATESWNYA L 03/23/2012 26464 ASSAY OF CK (CPK) MADL SORAYA YATESWNYA L 03/23/2012 80760 ASSAY OF LIPASE MADL ARN, MIRZA L 03/23/2012 31574 COMPLETE CBC W/AUTO DIFF WBC MADL TRUDY , MIRZA L 03/23/2012 85373 HETEROPHILE ANTIBODIES MADL TRUDY, MIRZA L 03/23/2012 49002 MYCOPLASMA ANTIBODY [facility]N, MIRZA L 03/23/2012 89322 ROUTINE VENIPUNCTURE MADL AUGUSTIN YATESNYA L 03/28/2012 54819 BL SMEAR W/DIFF [facility]BC [facility] SORAYA YATESWNYA L 03/28/2012 25111 COMPLETE CBC, AUTOMATED [facility] SORAYA YATESWNYA L 03/28/2012 57148 ROUTINE VENIPUNCTURE MADL SORAYA YATESWNYA L 04/06/2012 10425 COMPLETE CBC W/AUTO DIFF WBC MADL AUGUSTIN YATESNYA L 04/06/2012 35560 COMPREHEN METABOLIC PANEL [facility] SORAYA YATESWNYA L 04/25/2012 78126 COMPLETE CBC W/AUTO DIFF WBC MADL SORAYA YATESWNYA L 04/25/2012 81948 HYDRATE IV INFUSION, ADD-ON MADL SORAYA YATESWNYA L 04/25/2012 23460 THER/PROPH/DIAG INJ, IV PUSH MADL SORAYA YATESWNYA L 04/25/2012 J2550 PROMETHAZINE HCL INJECTION MADL TRUDY, MIRZA L 04/25/2012 31169 ROUTINE VENIPUNCTURE MADL ARN, MIRZA L 05/09/2012 51128 COMPLETE CBC W/AUTO DIFF WBC MADL SORAYA YATESWNYA L 05/09/2012 13993 THER/PROPH/DIAG INJ, SC/IM [employer] CONSTRUCTION COST ESTIMATOR , MEAGAN L 05/22/2012 [id number] CEFTRIAXONE SODIUM INJECTION [employer]ADO CONSTRUCTION COST ESTIMATOR, MEAGAN L 05/22/2012 J2001 LIDOCAINE INJECTION MEAGAN FOSTER 05/22/2012 J2550 PROMETHAZINE HCL INJECTION MEAGAN FOSTER 05/22/2012 23385 ROUTINE VENIPUNCTURE MIRZA BALL L 06/22/2012 73382 X-RAY EXAM OF KNEE, 3 MIRZA BALL L 06/22/2012 33542 COMPREHEN METABOLIC PANEL HAIM MIRZA YATES L 06/22/2012 23970 URINALYSIS, AUTO W/SCOPE HAIML MIRZA YATES L 06/22/2012 33764 COMPLETE CBC W/AUTO DIFF WBC MIRZA BALL L 06/22/2012 37330 ROUTINE VENIPUNCTURE MIRZA BALL L 07/06/2012 54748 CHEST X-RAY HAIM MIRZA YATES L 07/06/2012 03369 COMPREHEN METABOLIC PANEL HAIM MIRZA YATES L 07/06/2012 59483 BL SMEAR W/DIFF WBC COUNT HAIM MIRZA YATES L 07/06/2012 08246 COMPLETE CBC, AUTOMATED HAIM MIRZA YATES L 07/06/2012 79989 MYCOPLASMA ANTIBODY HAIM MIRZA YATES L 07/06/2012 25844 INFLUENZA ASSAY W/OPTIC MIRZA BALL L 07/06/2012 03289 HYDRATION IV INFUSION, INIT MIRZA BALL L 07/06/2012 31397 HYDRATE IV INFUSION, ADD-ON MIRZA BALL L 07/06/2012 67293 TX/PROPH/DG ADDL SEQ IV INF MIRZA BALL L 07/06/2012 08358 TX/PRO/DX INJ NEW DRUG ADDON MIRZA BALL L 07/06/2012 J0696 CEFTRIAXONE SODIUM INJECTION MIRZA BALL L 07/06/2012 J2550 PROMETHAZINE HCL INJECTION HAIM MIRZA YATES L 07/06/2012 14430 MRI JNT OF LWR EXTRE W/O DYE MIRZA BALL L 07/17/2012 39850 THER/PROPH/DIAG IV INF ADDON MIRZA BALL L 07/27/2012 14836 THER/PROPH/DIAG INJ, IV PUSH MADL ARN , MIRZA L 07/27/2012 22254 TX/PRO/DX INJ NEW DRUG ADDON MADL TRUDY , MIRZA L 07/27/2012 J1885 KETOROLAC TROMETHAMINE INJ MADL TRUDY, MIRZA L 07/27/2012 J2550 PROMETHAZINE HCL INJECTION MADL TRUDY, MIRZA L 07/27/2012 01572 X-RAY EXAM OF KNEE, 1 OR 2 MANAS RAMOS , REUBEN R 07/31/2012 75128 UPPR GI ENDOSCOPY, DIAGNOSIS MILDRED RAMOS, NETTE Dudley 08/08/2012 88820 DIAGNOSTIC COLONOSCOPY MILDRED RAMOS, NETTE Dudley 08/08/2012 J2250 MIDAZOLAM HCL INJ/1MG MILDRED RAMOS, NETTE Dudley 08/08/2012 J3010 FENTANYL CITRATE INJECITON MILDRED RAMOS , [facility] 08/08/2012 39993 HYDRATE IV INFUSION, ADD-ON MADL TRUDY, MIRZA L 09/14/2012 44008 THER/PROPH/DIAG INJ, SC/IM MADL TRUDY, MIRZA L 09/14/2012 63131 THER/PROPH/DIAG INJ, IV PUSH MADL TRUDY , MIRZA L 09/14/2012 J1885 KETOROLAC TROMETHAMINE INJ HAIML TRUDY, MIRZA L 09/14/2012 J2550 PROMETHAZINE HCL INJECTION MADL TRUDY, MIRZA L 09/14/2012 36903 ROUTINE VENIPUNCTURE MADL TRUDY, MIRZA L 09/26/2012 08327 COMPREHEN METABOLIC PANEL MADL TRUDY, MIRZA L 09/26/2012 02499 MRI BRAIN W/O & W/DYE HAIML TRUDY, MIRZA L 09/27/2012 J3490 Drugs unclassified injection MADL TRUDY , MIRZA L 09/27/2012 61816 ROUTINE VENIPUNCTURE MEAGAN FOSTER L 11/23/2012 02519 COMPREHEN METABOLIC PANEL MEAGAN FOSTER L 11/23/2012 90559 GLYCOSYLATED HEMOGLOBIN TEST MEAGAN FOSTER L 11/23/2012 94315 COMPLETE CBC W/AUTO DIFF WBC MEAGAN FOSTER L 11/23/2012 29614 ELECTROCARDIOGRAM, TRACING MEAGAN FOSTER L 11/23/2012 05261 ELECTROCARDIOGRAM REPORT BRIAN RAMOS, BHANU L 11/23/2012 57109 HT MUSCLE IMAGE SPECT, MULT JENNY GURROLA , MEAGAN L 12/21/2012 A9500 TC99M SESTAMIBI JENNY GURROLA, MEAGAN L 12/21/2012 J2785 REGADENOSON INJECTION JAGRUTI FOSTERICA L 12/21/2012 J7050 NS SOLUTION 250 CC INFUSION JAGRUTI FOSTERICA L 12/21/2012 45075 CARDIOVASCULAR STRESS TEST BRIAN RAMOS, BHANU Portillo 12/21/2012 80526 ROUTINE VENIPUNCTURE JENNY YATESP, MEAGAN L 01/04/2013 34628 COMP SCREEN MAMMOGRAM ADD-ON JENNY YATESP, MEAGAN L 01/04/2013 78324 MAMMOGRAM, SCREENING JENNY GURROLA, MEAGAN L 01/04/2013 19601 COMPREHEN METABOLIC PANEL JENNY GURROLA, MEAGAN L 01/04/2013 41877 COMPLETE CBC W/AUTO DIFF WBC JAGRUTI FOSTERICA L 01/04/2013 75734 ROUTINE VENIPUNCTURE JENNY YATESP, MEAGAN L 03/08/2013 27485 HEPATIC FUNCTION PANEL JENNY YATESP, MEAGAN L 03/08/2013 02436 CULTURE, BACTERIA, OTHER JENNY GURROLA, MEAGAN L 03/08/2013 58254 SMEAR, GRAM STAIN JAGRUTI FOSTERICA L 03/08/2013 78576 X-RAY EXAM, KNEE, 4 OR MORE JENNY GURROLA , MEAGAN L 03/29/2013 24191 ROUTINE VENIPUNCTURE JENNY YATESP, MEAGAN L 05/07/2013 64654 COMPREHEN METABOLIC PANEL JENNY YATESP, MEAGAN L 05/07/2013 69192 NATRIURETIC PEPTIDE JENNY YATESPJAGRUTIMEAGAN L 05/07/2013 83670 COMPLETE CBC W/AUTO DIFF WBC JENNY YATESP, MEAGAN L 05/07/2013 10886 RBC SED RATE, NONAUTOMATED JENNY YATESP , MEAGAN L 05/07/2013 65085 ROUTINE VENIPUNCTURE JENNY YATESP, MEAGAN L 07/11/2013 74850 COMPREHEN METABOLIC PANEL JENNY YATESP, MEAGAN L 07/11/2013 55923 URINALYSIS, AUTO W/SCOPE JENNY YATESP, MEAGAN L 07/11/2013 57175 URINALYSIS NONAUTO W/O SCOPE MEAGAN FOSTER L 07/11/2013 70980 GLYCOSYLATED HEMOGLOBIN TEST MEAGAN FOSTER L 07/11/2013 16281 ASSAY OF FREE THYROXINE MEAGAN FOSTER L 07/11/2013 83944 ASSAY THYROID STIM HORMONE MEAGAN FOSTER L 07/11/2013 64232 FREE ASSAY (FT-3) MEAGAN FOSTER L 07/11/2013 41988 COMPLETE CBC W/AUTO DIFF WBC MEAGAN FOSTER L 07/11/2013 16239 URINE CULTURE/COLONY COUNT MEAGAN FOSTER L 07/11/2013 57102 ELECTROCARDIOGRAM, TRACING MEAGAN FOSTER L 07/11/2013 24347 ELECTROCARDIOGRAM REPORT BRIAN RAMOS, BHANU 07/11/2013 86832 CULTURE, BACTERIA, OTHER ALAN SEARS, [facility] 08/19/2013 51511 CULTURE AEROBIC IDENTIFY ALAN SEARS, JNUG 08/19/2013 14890 MICROBE SUSCEPTIBLE, PIERCE ALAN SEARS, JUNG 08/19/2013 59672 SMEAR, GRAM STAIN ALAN SEARS, JUNG 08/19/2013 67361 ROUTINE VENIPUNCTURE MEAGAN FOSTER L 12/06/2013 90280 COMPREHEN METABOLIC PANEL MEAGAN FOSTER L 12/06/2013 71561 COMPLETE CBC W/AUTO DIFF WBC MEAGAN FOSTER L 12/06/2013 90208 ROUTINE VENIPUNCTURE MEAGAN FOSTER L 12/18/2013 80539 COMPLETE CBC W/AUTO DIFF WBC MEAGAN FOSTER L 12/18/2013 37034 CULTURE, BACTERIA, OTHER MEAGAN FOSTER L 12/25/2013 25813 CULTURE AEROBIC IDENTIFY MEAGAN FOSTER L 12/25/2013 01649 METABOLIC PANEL TOTAL CA MEAGAN FOSTER L 02/05/2014 22755 GLYCOSYLATED HEMOGLOBIN TEST MEAGAN FOSTER L 02/05/2014 79959 COMPLETE CBC W/AUTO DIFF WBC MEAGAN FOSTER L 02/05/2014 55224 IRRIG DRUG DELIVERY DEVICE MEAGAN FOSTER L 02/05/2014 J1642 HEP INJECTION MEAGAN FOSTER L 02/05/2014 51774 ROUTINE VENIPUNCTURE JENNY YATESPJAGRUTIMEAGAN L 03/07/2014 74413 COMPREHEN METABOLIC PANEL JENNY YATESPJAGRUTIMEAGAN L 03/07/2014 87516 ASSAY OF AMYLASE JAGRUTI FOSTERICA L 03/07/2014 97814 ASSAY OF LIPASE JAGRUTI FOSTERICA L 03/07/2014 60531 COMPLETE CBC W/AUTO DIFF WBC JAGRUTI FOSTERICA L 03/07/2014 56246 ROUTINE VENIPUNCTURE JENNY CONSTRUCTION COST ESTIMATORJAGRUTIMEAGAN L 04/07/2014 75433 COMPREHEN METABOLIC PANEL ALVARADO CONSTRUCTION COST ESTIMATORJAGRUTIMEAGAN L 04/07/2014 32384 BL SMEAR W/DIFF WBC COUNT JENNY YATESPJAGRUTIMEAGAN L 04/07/2014 53168 COMPLETE CBC, AUTOMATED JENNY YATESPJAGRUTIMEAGAN L 04/07/2014 90339 ROUTINE VENIPUNCTURE JAGRUTI FOSTERICA L 05/28/2014 41144 COMPREHEN METABOLIC PANEL JAGRUTI FOSTERICA L 05/28/2014 37134 ASSAY OF CK (CPK) JAGRUTI FOSTERICA L 05/28/2014 57773 CREATINE, MB FRACTION JENNY YATESPJAGRUTIMEAGAN L 05/28/2014 90132 NATRIURETIC PEPTIDE JAGRUTI FOSTERICA L 05/28/2014 28240 ASSAY OF TROPONIN, QUANT JAGRUTI FOSTERICA L 05/28/2014 18593 COMPLETE CBC W/AUTO DIFF WBC JAGRUTI FOSTERICA L 05/28/2014 54266 ROUTINE VENIPUNCTURE JAGRUTI FOSTERICA L 07/18/2014 49650 COMPREHEN METABOLIC PANEL JAGRUTI FOSTERICA L 07/18/2014 26759 BL SMEAR W/DIFF WBC COUNT JAGRUTI FOSTERICA L 07/18/2014 70020 COMPLETE CBC, AUTOMATED JENNY YATESPJAGRUTIMEAGAN L 07/18/2014 93091 CULTURE, BACTERIA, OTHER JAGRUTI FOSTERICA L 07/18/2014 62784 CULTURE AEROBIC IDENTIFY JENNY YATESPJAGRUTIMEAGAN L 07/18/2014 95717 SMEAR, GRAM STAIN JAGRUTI FOSTERICA L 07/18/2014 02995 ROUTINE VENIPUNCTURE JENNY YATESPJAGRUTIMEAGAN L 07/29/2014 63452 COMPREHEN METABOLIC PANEL JENNY CONSTRUCTION COST ESTIMATORJAGRUTIMEAGAN L 07/29/2014 08621 COMPLETE CBC W/AUTO DIFF WBC MEAGAN FOSTER L 07/29/2014 37603 IRRIG DRUG DELIVERY DEVICE MEAGAN FOSTER L 07/29/2014 J1642 HEP INJECTION MEAGAN FOSTER L 07/29/2014 88682 ROUTINE VENIPUNCTURE MEAGAN FOSTER L 09/05/2014 04819 COMPREHEN METABOLIC PANEL MEAGAN FOSTER L 09/05/2014 95184 COMPLETE CBC W/AUTO DIFF WBC MEAGAN FOSTER L 09/05/2014 77338 COMPREHEN METABOLIC PANEL MEAGAN FOSTER L 12/05/2014 83102 LIPID PANEL MEAGAN FOSTER L 12/05/2014 45003 GLYCOSYLATED HEMOGLOBIN TEST JAGRUTI FOSTERICA L 12/05/2014 35546 COMPLETE CBC W/AUTO DIFF WBC JAGRUTI FOSTERICA L 12/05/2014 18937 ELECTROCARDIOGRAM, TRACING JAGRUTI FOSTERICA L 12/05/2014 95628 THER/PROPH/DIAG IV INF, INIT JAGRUTI FOSTERICA L 12/05/2014 J0696 CEFTRIAXONE SODIUM INJECTION JAGRUTI FOSTERICA L 12/05/2014 J1642 HEP INJECTION JAGRUTI FOSTERICA L 12/05/2014 J7050 NS SOLUTION 250 CC INFUSION JAGRUTI FOSTERICA L 12/05/2014 57363 ELECTROCARDIOGRAM REPORT BRIAN RAMOS, BHANU Portillo 12/05/2014 93575 URINALYSIS, AUTO W/SCOPE MEAGAN FOSTER L 12/30/2014 16698 URINALYSIS NONAUTO W/O SCOPE MEAGAN FOSTER L 12/30/2014 90584 CULTURE, BACTERIA, OTHER JAGRUTI FOSTERICA L 12/30/2014 50734 URINALYSIS, AUTO W/SCOPE JAGRUTI FOSTERICA L 01/05/2015 76802 IRRIG DRUG DELIVERY DEVICE JAGRUTI FOSTERICA L 02/06/2015 J1642 INJ HEPARIN SODIUM PER 10 U JAGRUTI FOSTERICA L 02/06/2015 24481 COMPREHEN METABOLIC PANEL JAGRUTI FOSTERICA L 04/08/2015 07202 URINALYSIS AUTO W/SCOPE JAGRUTI FOSTERICA L 04/08/2015 85407 URINALYSIS NONAUTO W/O SCOPE JAGRUTI FOSTERICA L 04/08/2015 98224 COMPLETE CBC W/AUTO DIFF WBC MEAGAN FOSTER L 04/08/2015 48509 HETEROPHILE ANTIBODY SCREEN MEAGAN FOSTER 04/08/2015 60230 URINE CULTURE/COLONY COUNT MEAGAN FOSTER L 04/08/2015 28308 IRRIG DRUG DELIVERY DEVICE MEAGAN FOSTER L 04/08/2015 J1642 INJ HEPARIN SODIUM PER 10 U MEAGAN FOSTER L 04/08/2015 91772 IRRIG DRUG DELIVERY DEVICE MEAGAN FOSTER L 05/06/2015 J1642 HEP INJECTION MEAGAN FOSTER L 05/06/2015 60276 IRRIG DRUG DELIVERY DEVICE MEAGAN FOSTER L 06/03/2015 J1642 HEP INJECTION MEAGAN FOSTER L 06/03/2015 32897 ROUTINE VENIPUNCTURE MEAGAN FOSTER L 07/08/2015 89160 COMPREHEN METABOLIC PANEL MEAGAN FOSTER L 07/08/2015 21968 ASSAY THYROID STIM HORMONE MEAGAN FOSTER L 07/08/2015 15600 COMPLETE CBC W/AUTO DIFF WBC MEAGAN FOSTER L 07/08/2015 08446 COMPREHEN METABOLIC PANEL MEAGAN FOSTER L 08/05/2015 58547 ACETONE ASSAY MEAGAN FOSTER L 08/05/2015 02045 COMPLETE CBC W/AUTO DIFF WBC MEAGAN FOSTER L 08/05/2015 85997 RBC SED RATE NONAUTOMATED MEAGAN FOSTER L 08/05/2015 05930 IRRIG DRUG DELIVERY DEVICE MEAGAN FOSTER L 08/05/2015 J1642 INJ HEPARIN SODIUM PER 10 U MEAGAN FOSTER L 08/05/2015 32387 COMPREHEN METABOLIC PANEL BRIAN RAMOS, BHANU Portillo 08/10/2015 00855 ACETONE ASSAY BRIAN RAMOS, BHANU Portillo 08/10/2015 72027 COMPLETE CBC W/AUTO DIFF WBC BRIAN RAMOS, BHANU Portillo 08/10/2015 48294 CULTURE OTHR SPECIMN AEROBIC BRIAN RAMOS, BHANU Portillo 08/10/2015 50449 CULTURE AEROBIC IDENTIFY BRIAN RAMOS, BHANU Portillo 08/10/2015 45582 STREP A ASSAY W/OPTIC BRIAN RAMOS, BHANU Portillo 08/10/2015 34605 THER/PROPH/DIAG INJ IV PUSH BRIAN RAMOS, BHANU Portillo 08/10/2015 64533 INITIAL OBSERVATION CARE BRIAN RAMOS, BHANU Portillo 08/10/2015 J1815 INSULIN INJECTION MEAGAN FOSTER L 08/10/2015 J2550 PROMETHAZINE HCL INJECTION JOVANNA GURROLA ABEL Garcia 08/10/2015 J7030 NORMAL SALINE SOLUTION INFUS MEAGAN FOSTER L 08/10/2015 86475 COMPREHEN METABOLIC PANEL BRIAN RAMOS, BHANU Portillo 08/11/2015 98496 GLYCOSYLATED HEMOGLOBIN TEST BRIAN RAMOS, BHANU Portillo 08/11/2015 89029 ASSAY THYROID STIM HORMONE BRIAN RAMOS, BHANU Portillo 08/11/2015 61454 INITIAL OBSERVATION CARE BRIAN RAMOS, BHANU Portillo 08/11/2015 J1815 INSULIN INJECTION MEAGAN FOSTER L 08/11/2015 J7030 NORMAL SALINE SOLUTION INFUS MEAGAN FOSTER L 08/11/2015 A0425 GROUND MILEAGE A0427 ALS1-EMERGENCY 97348 ROUTINE VENIPUNCTURE 08/16/2015 81868 CHEST X-RAY 08/16 66774 COMPREHEN METABOLIC PANEL 08/16/2015 32637 ASSAY OF LACTIC ACID 08/16/2015 61557 COMPLETE CBC W/AUTO DIFF WBC 08/16/2015 59545 MYCOPLASMA ANTIBODY 08/16/2015 87724 BLOOD CULTURE FOR BACTERIA 08/16/2015 97388 INFLUENZA DNA AMP PROBE 08/16/2015 28689 AIRWAY INHALATION TREATMENT 08/16/2015 22219 HYDRATE IV INFUSION, ADD-ON 08/16/2015 22926 THER/PROPH/DIAG INJ, IV PUSH 08/16/2015 66766 EMERGENCY DEPT VISIT 08/16/2015 J1956 LEVOFLOXACIN INJECTION 08/16/2015 94816 ROUTINE VENIPUNCTURE JAGRUTI FOSTERICA L 09/08/2015 81203 COMPREHEN METABOLIC PANEL JAGRUTI FOSTERICA L 09/08/2015 38530 BL SMEAR W/DIFF WBC COUNT JAGRUTI FOSTERICA L 09/08/2015 34833 COMPLETE CBC AUTOMATED JAGRUTI FOSTERICA L 09/08/2015 46832 ROUTINE VENIPUNCTURE JAGRUTI FOSTERICA L 10/07/2015 77856 COMPREHEN METABOLIC PANEL MEAGAN FOSTER 10/07/2015 17600 COMPLETE CBC W/AUTO DIFF WBC MEAGAN FOSTER 10/07/2015 75277 CHEST X-RAY 2VW FRONTAL&LATL MEAGAN FOSTER 10/12/2015 16731 IRRIG DRUG DELIVERY DEVICE MEAGAN FOSTER 10/12/2015 J1642 INJ HEPARIN SODIUM PER 10 U MEAGAN FOSTER Lindsey 10/12/2015 Encounters ACCT No. Visit Date/Time Discharge Status Pt. Type Provider Facility Loc./Unit Complaint [id number] 05/02/2012 12:52:00 2011 23:59:59 CLS Outpatient Belinda RAMOS, Simona Peacock [facility]
--- OUTSIDE RECORDS SUMMARY | 2016-12-21 08:18 | XMS REPORT ---
Author Author [facility] Medical Staff Organization [facility] Address [address] [place], [place] [address] Phone [phone] Care Team Providers Care Pharmacy Benefit Manager Name Role Phone BHANU TORRES MD PP [phone] Summary purpose TRANSITION OF CARE AUTO GENERATION [...] for this patient visit History of procedures No procedures recorded for [...]
--- OUTSIDE RECORDS SUMMARY | 2016-12-21 08:18 | XMS REPORT ---
Author Author [facility] Medical Staff Organization [facility] Address [address] [place], [place] [address] Phone [phone] Care Team Providers Care Appliance Tester Name Role Phone MEAGAN FOSTER PP [phone] Summary purpose CCDA Sent to [facility] Chief Complaint and Reason for Visit No [...] diagnostic tests and/or laboratory data RESULTS CBC [id number]:15:00 Result Normal Range Units WBC 9.86 4.60-10.20 x 103/uL RBC 4.20 4.04-6.13 x 106/uL Hemoglobin L 11.9 12.2-18.1 g/dl Hematocrit L 36.8 37.7-53.7 % MCV 87.6 80.0-97.0 FL MCH 28.3 27.0-31.2 pg MCHC 32.3 31.8-35.4 g/dl RDW 13.9 11.6-14.8 % Platelets 241 142-424 x 103/uL MPV 9.9 9.4-12.4 FL Manual Diff Not Indicated Neutrophil % 68.7 37-80 % Neutrophils 6.77 2.0-6.9 x 103/uL Lymphocyte % 24.4 10-50 % Lymphocytes 2.41 0.6-3.4 x 103/uL Monocyte % 5.2 0-12 % Monocytes 0.51 0.0-1.0 x 103/uL Eosinophil % 1.3 0-7 % Eosinophils 0.13 0-0.7 x 103/uL Basophil % 0.4 0-2 % Basophils 0.04 0.0-0.1 x 103/uL Chemistry Group [id number]:00 Result Normal Range Units Glucose H 375 70-99 mg/dl BUN L 6 7-26 mg/dl Creatinine 0.9 0.6-1.3 mg/dl Sodium L 135 136-145 mmol/L Potassium 4.3 3.5-5.1 mmol/L Chloride L 95 98-107 mmol/L CO2 27 22-29 mmol/L BUN/Creatinine Ratio 7 7-25 Ratio Calcium 8.7 8.4-10.2 mg/dl Protein Total 6.7 6.4-8.3 g/dl Albumin 3.5 3.5-5.0 g/dl A/G Ratio L 1.1 1.2-2.2 Ratio AST 33 5-34 U/L ALT 41 0-55 U/L ALP 110 40-150 U/L Bilirubin Total 1.2 0.2-1.2 mg/dl Osmolality 274 261-280 mOsm/kg Globulin 3.2 2.4-3.5 g/dl History of procedures Procedure Code Code Type Description Date Performed Performing Physician 80584 CPT-4 COMPLETE CBC W/AUTO DIFF WBC 10-07-2015 MEAGAN ALVARADO 83003 CPT-4 COMPREHEN METABOLIC PANEL 10-07-2015 MEAGAN ALVARADO 05779 CPT-4 ROUTINE VENIPUNCTURE 10-07-2015 MEAGAN ALVARADO Functional status No functional or [...]
--- OUTSIDE RECORDS SUMMARY | 2016-12-21 08:18 | XMS REPORT ---
Author Author MIRZA MARTINO Organization [employer] Address Unknown Phone Unavailable Care Team Providers Care Director Of Marketing Name Role Phone MIRZA MARTINO CP Unavailable [...] R22.2 Active Problem Gastroparesis K31.84 Active Medications No Known Medications Results No Known Results Summary Purpose [employer] Submission
--- OUTSIDE RECORDS SUMMARY | 2016-12-21 08:19 | XMS REPORT ---
Author Author MIRZA MARTINO [facility] Address [address] [place] [address] Care Team Providers Care Conveyor Feeder Offbearer Name Role Phone MIRZA MRATINO Unavailable PROBLEMS Type Condition ICD9-CM Code AHZ03-DM Code Onset Dates Condition Status SNOMED Code Problem Acquired hypothyroidism E03.9 Active 839898013 Problem Congestive heart failure, unspecified congestive heart failure chronicity, unspecified congestive heart failure type I50.9 Active 51083595 Problem Essential hypertension I10 Active 22846724 Problem Recurrent major depressive disorder, remission status unspecified F33.9 Active 83139840 Problem 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 Active 69423675 Problem Type 2 diabetes mellitus with foot ulcer E11.621 Active 4317509084917 Problem Type 2 diabetes mellitus with diabetic autonomic (poly)neuropathy E11.43 Active 788164794 Problem Screening breast examination Z12.39 Active 446426692 Problem Primary insomnia F51.01 Active 6320878 Assessment Type 2 diabetes mellitus with diabetic autonomic (poly)neuropathy E11.43 Feb, Active 206968053 Problem Gastroparesis K31.84 Active 501295995 Problem Epigastric pain R10.13 Active 64479981 Problem Anxiety F41.9 Active 34767105 Problem 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 Active 451032608 Problem Nodule of chest wall R22.2 Active 925512421 Problem Chronic pain syndrome G89.4 Active 198677994 ALLERGIES Substance Reaction Event Type Date Status Compazine Unknown Drug Allergy Feb, Active Zofran Unknown Drug Allergy Feb, Active Tizanidine HCl seizure Drug Allergy Feb, Active Sulfamethoxazole-Trimethoprim Unknown Drug Allergy Feb, Active Metoclopramide HCl Unknown Drug Allergy Feb, Active Iodine Unknown Drug Allergy Feb, Active Hydrocodone-Acetaminophen Unknown Drug Allergy Feb, Active Codeine Sulfate Unknown Drug Allergy Feb, Active Acetaminophen Unknown Drug Allergy Feb, Active IV Dye Unknown Non Drug Allergy Feb, Active SOCIAL HISTORY No smoking Hx information available PLAN OF CARE VITAL SIGNS Height 62 in 2016-03-01 Weight 256.7 lbs 2016-03-01 Heart Rate 92 bpm 2016-03-01 Respiratory Rate 20 2016-03-01 BMI 46.95 kg/m2 2016-03-01 Blood pressure systolic 124 mmHg 2016-03-01 Blood pressure diastolic 77 mmHg 2016-03-01 MEDICATIONS Medication Instructions Dosage Frequency Start Date End Date Duration Status Temazepam 30 MG Orally Once a day 1 capsule at bedtime as needed 24h Active Baclofen 10 MG Orally Three times a day 1 tablet with food or milk 8h Jan, Active Insulin Syringe 31G X 5/16 Active Nystatin 351911 UNIT/GM Externally Twice a day 1 to affected area 12h Active Alprazolam 1 MG Orally Three times a day 1 tablet 8h Active Levemir FlexTouch 100 UNIT/ML Subcutaneous 2 times a day 35 units 12h Active Escitalopram Oxalate 20 mg Orally Once a day 1 tablet 24h Active Seroquel XR 50 mg Orally Once a day at HS 2 tablet in the evening 28 days Active Tylenol 500 MG/15ML Orally Once a day @ HS 2 tablets Active Luis Fernando Contour Test - In Vitro 3 times a day as directed 8h Jan, Active Benadryl Allergy 25 MG Orally Once a day at bedtime 2 tablet as needed Active Oxygen 3L nasal canal Active Levothyroxine Sodium 75 MCG Orally Once a day 1 tablet 24h Active Chantix 1 MG Orally Twice a day 1 tablet 12h Active Humulin R U-500 (Concentrated) 500 UNIT/ML Subcutaneous 3 times a day with meals 45 units or per sliding scale Active Losartan Potassium-HCTZ 100-25 MG Orally Once a day 1 tablet 24h Active Zantac 150 MG Orally twice a day 1 tablet 12h 30 day(s) Active Tresiba FlexTouch 100 UNIT/ML Subcutaneous Once a day at bedtime 75 units Active Gabapentin 800 MG Orally 3 times a day 1 tablet 8h Active Promethazine HCl 25 MG TAKE ONE TABLET BY MOUTH EVERY 6 HOURS NEEDED 15 Active Pantoprazole Sodium 40 mg Orally Once a day 1 tablet 24h Active Atenolol 50 mg Orally Once a day 2 tablet 24h Active RESULTS Name Result Date Reference Range A1C (IN HOUSE) 2016-03-01 A1C IN HOUSE 10.3 4.3 - 5.6 % Previous A1c 11.0 Lot 05 Exp date GLUCOSE FINGERSTICK (IN HOUSE) 2016-03-01 GLU FINGERSTICK [facility] Lot # [id number] Exp date 05/08/2016 PROCEDURES Procedure Date Ordered Related Diagnosis Body Site GLYCATED HEMOGLOBIN TEST Mar 01, 2016 GLUCOSE BLOOD TEST Mar 01, 2016 Office Visit, Est Pt., Level 4 Mar 01, 2016 IMMUNIZATIONS No Known Immunizations
--- OUTSIDE RECORDS SUMMARY | 2016-12-21 08:19 | XMS REPORT ---
Author Author [facility] Medical Staff Organization [facility] Address [address] [place], [place] [address] Phone [phone] Care Team Providers Care Ceramic Coater Name Role Phone MEAGAN FOSTER PP [phone] Summary purpose CCDA Sent to [facility] Chief Complaint and Reason for Visit [...] diagnostic tests and/or laboratory data RESULTS CBC [id number]:40:00 Result Normal Range Units WBC 8.53 4.60-10.20 x 103/uL RBC 4.85 4.04-6.13 x 106/uL Hemoglobin 13.6 12.2-18.1 g/dl Hematocrit 40.9 37.7-53.7 % MCV 84.3 80.0-97.0 FL MCH 28.0 27.0-31.2 pg MCHC 33.3 31.8-35.4 g/dl RDW 13.1 11.6-14.8 % Platelets 203 142-424 x 103/uL MPV 10.3 9.4-12.4 FL Manual Diff Not Indicated Neutrophil % 51.1 37-80 % Neutrophils 4.36 2.0-6.9 x 103/uL Lymphocyte % 41.6 10-50 % Lymphocytes H 3.55 0.6-3.4 x 103/uL Monocyte % 5.3 0-12 % Monocytes 0.45 0.0-1.0 x 103/uL Eosinophil % 1.5 0-7 % Eosinophils 0.13 0-0.7 x 103/uL Basophil % 0.5 0-2 % Basophils 0.04 0.0-0.1 x 103/uL Hematology Group :40:00 Result Normal Range Units Sed Rate H 22 5-20 MM/hr. Serology Group :40:00 Result Normal Range Units Ketone Negative Negative Chemistry Group :40:00 Result Normal Range Units Glucose HC 482 70-99 mg/dl Result Amended on 2015-08-05 at 16:37:35. Previous status was FR. Result successfully called to [facility] on 08/05/2015 at 16:31 by FRANNY.CALLED TO ALEXANDER BUN 15 7-26 mg/dl Result Amended on 2015-08-05 at 16:37:35. Previous status was FR. Creatinine 1.1 0.6-1.3 mg/dl Result Amended on 2015-08-05 at 16:37:35. Previous status was FR. Sodium L 130 136-145 mmol/L Result Amended on 2015-08-05 at 16:37:35. Previous status was FR. Potassium 4.3 3.5-5.1 mmol/L Result Amended on 2015-08-05 at 16:37:35. Previous status was FR. Chloride L 93 98-107 mmol/L Result Amended on 2015-08-05 at 16:37:35. Previous status was FR. CO2 24 22-29 mmol/L Result Amended on 2015-08-05 at 16:37:35. Previous status was FR. BUN/Creatinine Ratio 14 7-25 Ratio Result Amended on 2015-08-05 at 16:37:35. Previous status was FR. Calcium 9.6 8.4-10.2 mg/dl Result Amended on 2015-08-05 at 16:37:35. Previous status was FR. Protein Total 7.2 6.4-8.3 g/dl Result Amended on 2015-08-05 at 16:37:35. Previous status was FR. Albumin 3.7 3.5-5.0 g/dl Result Amended on 2015-08-05 at 16:37:35. Previous status was FR. A/G Ratio L 1.1 1.2-2.2 Ratio Result Amended on 2015-08-05 at 16:37:35. Previous status was FR. AST 34 5-34 U/L Result Amended on 2015-08-05 at 16:37:35. Previous status was FR. ALT H 57 0-55 U/L Result Amended on 2015-08-05 at 16:37:35. Previous status was FR. ALP 100 40-150 U/L Result Amended on 2015-08-05 at 16:37:35. Previous status was FR. Bilirubin Total 0.8 0.2-1.2 mg/dl Result Amended on 2015-08-05 at 16:37:35. Previous status was FR. Osmolality 272 261-280 mOsm/kg Result Amended on 2015-08-05 at 16:37:35. Previous status was FR. Globulin 3.5 2.4-3.5 g/dl Result Amended on 2015-08-05 at 16:37:35. Previous status was FR. History of procedures Procedure Code Code Type Description Date Performed Performing Physician 44732 CPT-4 COMPLETE CBC W/AUTO DIFF WBC 08-05-2015 MEAGAN ALVARADO 18323 CPT-4 COMPREHEN METABOLIC PANEL 08-05-2015 MEAGAN ALVARADO 67555 CPT-4 RBC SED RATE, NONAUTOMATED 08-05-2015 MEAGAN ALVARADO 14927 CPT-4 ACETONE ASSAY 08-05-2015 MEAGAN ALVARADO J1642 CPT-4 HEP INJECTION 08-05-2015 MEAGAN ALVARADO 69055 CPT-4 IRRIG DRUG DELIVERY DEVICE 08-05-2015 MEAGAN ALVARADO Functional status No functional or cognitive status observations are available for this visit. Vital signs Type Value Date Respirations 20 [id number]:57 Pulse 83 :57 O2 Saturation 94% 57-73-591951:57 Systolic Blood Press 119mm/HG 15-25-284261:57 Diastolic Blood Pres 83mm/HG 09-28-408205:57 Temperature (Fahr) 98.6Degrees :57 Social history No Social History or smoking status observations were recorded for this visit. ( Unknown if ever smoked.) Treatment Plan No treatment plan text is available for this visit. Hospital discharge instructions No discharge instruction text is available for this visit.
--- OUTSIDE RECORDS SUMMARY | 2016-12-21 08:19 | XMS REPORT | Clinical Summary ---
Author Author Admin, BRANDON Organization [facility] Address Unknown Phone Unavailable Allergies, Adverse Reactions, Alerts Allergy Name Reaction Description Start Date Severity Status Provider IVP DYE hives, shortness of breath Critical Active Arnold Ibarra MD ZOFRAN hives Critical Active Arnold Ibarra MD HYDROCODONE vomiting Critical Active Arnold Ibarra MD CODEINE vomiting and hives Critical Active Arnold Ibarra MD COMPAZINE vomiiting 1999 Critical Active Arnold bIarra MD SULFA hivkamila Critical Active Arnold Ibarra MD Conditions or Problems Problem Name Problem Code Onset Date Status Entry Date Provider Comment Standard Description Annotate CORONARY HEART DISEASE 414.00 Active ESAU Marroquin Coronary atherosclerosis of unspecified type of vessel, seminole or graft DIABETES, TYPE 2 250.00 Active ESAU Marroquin Diabetes mellitus without mention of complication, type II or unspecified type, not stated as uncontrolled ANXIETY DISORDER 300.00 Active ESAU Marroquin Anxiety state, unspecified FH DIABETES V18.0 Active [...] Bismark Landa MD Mononeuritis of unspecified site Diabetes mellitus, type II, uncontrolled 250.02 Active Saumya Cora GURROLA Diabetes mellitus without mention of complication, type II or unspecified type, uncontrolled Medication List Medication Instructions Start Date Stop Date Generic Name NDC Status Provider Patient Instruction PANTOPRAZOLE SODIUM 40 MG SOLR Take one by mouth daily PANTOPRAZOLE SODIUM 96892813121 Active Saumya Franciscoglari FOOD EXPEDITOR Active OMEPRAZOLE 40 MG CPDR Take one by mouth daily OMEPRAZOLE 02568848295 No Longer Active Saumya Singhglari FOOD EXPEDITOR Active LEVEMIR 100 UNIT/ML SOLN 40u twice daily at 10am, 10pm INSULIN DETEMIR 52959240457 Active Saumya Singhglari FOOD EXPEDITOR Active LANTUS 100 UNIT/ML SOLN 40 units subq at bedtime INSULIN GLARGINE 77077019741 No Longer Active Saumya Singhglari FOOD EXPEDITOR Active HUMALOG 100 UNIT/ML SOLN 30 units subq before each meal, add 4u/50 for blood sugars above 150. INSULIN LISPRO (HUMAN) 97170525951 Active Saumya Cora GURROLA Active LASIX 20 MG TABS Take 1 tablet daily FUROSEMIDE 59605236870 Active Bismark Landa MD Active HYZAAR 100-25 MG TABS Take 1 tablet daily LOSARTAN POTASSIUM- HCTZ 08759426515 Active Bismark Landa MD Active SYNTHROID 25 MCG TABS Take 1 tablet daily LEVOTHYROXINE SODIUM 96999862194 Active Bismark Landa MD Active ZANTAC 150 MG TABS Take 1 tablet BID RANITIDINE HCL 56317850480 Active Bismark Landa MD Active PERCOCET 10-325 MG TABS Take 1 tablet every 8 hours as needed for pain. 11/26 OXYCODONE-ACETAMINOPHEN 56048893384 Active Bismark Landa MD Active MORPHINE SULFATE ER 15 MG CR-TABS Take 1 tablet BID MORPHINE SULFATE 64612345921 Active Bismark Landa MD Active CELEXA 20 MG TABS Take 1 tablet BID CITALOPRAM HYDROBROMIDE 20404879490 Active Bismark Landa MD Active GABAPENTIN 600 MG TABS 1 by mouth QID GABAPENTIN 92130553519 Active Bismark Landa MD Active CLARITHROMYCIN 500 MG TABS by mouth twice a day CLARITHROMYCIN 61273110909 No Longer Active Bismark Landa MD Active TRAZODONE HCL 100 MG TABS 1/2- 1 at bedtime TRAZODONE HCL 47713915562 No Longer Active Bismark Landa MD Active AMOXICILLIN 500 MG TABS 2 by mouth daily AMOXICILLIN 80960694259 No Longer Active Bismark Landa MD Active HYDROCODONE-ACETAMINOPHEN 7.5-325 MG TABS 1 by mouth every 6 hours as needed HYDROCODONE-ACETAMINOPHEN 94915791909 No Longer Active Bismark Landa MD Active HYDROCHLOROTHIAZIDE 25 MG TABS Take one by mouth daily HYDROCHLOROTHIAZIDE 08255410147 No Longer Active Bismark Landa MD Active VERAPAMIL HCL CR 240 MG CR-TABS Take one by mouth daily VERAPAMIL HCL 94344225763 No Longer Active Bismark Landa MD Active ALPRAZOLAM 0.5 MG TABS Take 1 tablet TID ALPRAZOLAM 26952307693 Active Bismark Landa MD Active HYDROCODONE-ACETAMINOPHEN 10-325 MG TABS take at bedtime HYDROCODONE-ACETAMINOPHEN 71631425135 No Longer Active Bismark Landa MD Active SUCRALFATE 1 GM TABS Take one by mouth four times daily, morning, noon, early evening and bedtime. SUCRALFATE 51244380760 No Longer Active Bismark Landa MD Active KLOR-CON 10 10 MEQ CR-TABS Take one by mouth daily POTASSIUM CHLORIDE 14922582379 No Longer Active Bismark Landa MD Active METOLAZONE 5 MG TABS Take one by mouth daily METOLAZONE 15062412459 No Longer Active Bismark Landa MD Active TEMAZEPAM 30 MG CAPS Take 1 tablet at bed time. TEMAZEPAM 63263764505 Active Bismark Landa MD Active CYCLOBENZAPRINE HCL 10 MG TABS Take one by mouth daily CYCLOBENZAPRINE HCL 61113467353 Active Arnold Ibarra MD Active ATENOLOL 50 MG TABS 1 1/2 daily ATENOLOL 35938963702 Active Arnold Ibarra MD Active PROMETHAZINE HCL 25 MG TABS 1 tab by mouth every 6 hours as needed for nausea/ vomiting PROMETHAZINE HCL 30066261948 Active Arnold Ibarra MD Active METOLAZONE 5 MG TABS Take one by mouth daily METOLAZONE 5 MG TABS 957048 METOLAZONE Inactive KLOR-CON 10 10 MEQ CR-TABS Take one by mouth daily KLOR-CON 10 10 MEQ CR-TABS POTASSIUM CHLORIDE Inactive SUCRALFATE 1 GM TABS Take one by mouth four times daily, morning, noon, early evening and bedtime. SUCRALFATE 1 GM TABS 437587 SUCRALFATE Inactive HYDROCODONE-ACETAMINOPHEN 10-325 MG TABS take at bedtime HYDROCODONE-ACETAMINOPHEN 10-325 MG TABS 686845 HYDROCODONE-ACETAMINOPHEN Inactive VERAPAMIL HCL CR 240 MG CR-TABS Take one by mouth daily VERAPAMIL HCL CR 240 MG CR-TABS VERAPAMIL HCL Inactive HYDROCHLOROTHIAZIDE 25 MG TABS Take one by mouth daily HYDROCHLOROTHIAZIDE 25 MG TABS 441792 HYDROCHLOROTHIAZIDE Inactive HYDROCODONE-ACETAMINOPHEN 7.5-325 MG TABS 1 by mouth every 6 hours as needed HYDROCODONE-ACETAMINOPHEN 7.5-325 MG TABS 803913 HYDROCODONE-ACETAMINOPHEN Inactive AMOXICILLIN 500 MG TABS 2 by mouth daily AMOXICILLIN 500 MG TABS 901218 AMOXICILLIN Inactive TRAZODONE HCL 100 MG TABS 1/2- 1 at bedtime TRAZODONE HCL 100 MG TABS 164175 TRAZODONE HCL Inactive CLARITHROMYCIN 500 MG TABS by mouth twice a day CLARITHROMYCIN 500 MG TABS 196516 CLARITHROMYCIN Inactive LANTUS 100 UNIT/ML SOLN 40 units subq at bedtime LANTUS 100 UNIT/ML SOLN INSULIN GLARGINE Inactive OMEPRAZOLE 40 MG CPDR Take one by mouth daily OMEPRAZOLE 40 MG CPDR 931321 OMEPRAZOLE Inactive Vital Signs Date Name Value Unit Range Description blood pressure, diastolic - 8462-4 68 mm[Hg] BP benson blood pressure, systolic - 8480-6 130 mm[Hg] BP sys height E&M - 8302-2 62 [in_us] Bdy height pulse rate E&M - 8867-4 96 /min Heart rate weight E&M - 3141-9 262 [lb_av] Weight Measured blood pressure, diastolic - 8462-4 90 mm[Hg] [...] 1.015 1.000-1.030 pH, urine, semiquantitative 5.5 5.0-8.5 Office Visit: Diabetes Visit - Chemistry cholesterol, target level 200 mg/dL triglyceride, target level 200 mg/dL HDL cholesterol, serum, target level 35 mg/dL LDL target level 100 mg/dL home glucose monitor utilized Yes Encounters Code Encounter Date Provider Facility CPT-35435 Level 5 Est. Patient 13:05:17 CDT Saumya GURROLA [facility] CPT-25807 Level 4 Est. Patient 14:58:44 CDT Bismark Landa MD [facility] CPT-82825 Level 4 New Patient 15:17:54 CDT Priscila Valera MD [facility] CPT-08128 Level 2 Est. Patient 16:51:13 CDT Arnold Ibarra MD [facility] Procedures Code Procedure Name Date Entry Date Standard Description CPT-28808 Cystoscopy 15:17:54 CDT
[2016-12-21 08:20] VITALS: BP 127/80
--- OUTSIDE RECORDS SUMMARY | 2016-12-21 08:20 | XMS REPORT ---
Author Author MIRZA MARTINO Organization [employer] Address Unknown Phone Unavailable Care Team Providers Care Computing Machine Operator Name Role Phone MIRZA MARTINO CP Unavailable [...] Instructions Start Date End Date Status Dosage Alprazolam [facility] [address]-88 1 MG Orally Three times a day must last 28 days 1 tablet Results No Known Results Summary Purpose [employer] Submission
--- OUTSIDE RECORDS SUMMARY | 2016-12-21 08:20 | XMS REPORT ---
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
--- OUTSIDE RECORDS SUMMARY | 2016-12-21 08:20 | XMS REPORT | Clinical Summary ---
Author Author Admin, BRANDON Organization [facility] Address Unknown Phone Allergies, Adverse Reactions, Alerts [...] Coronary atherosclerosis of unspecified type of vessel, [place] or graft DIABETES, TYPE 2 250.00 Active [...] 599.70 Active Priscila Valera MD Hematuria, unspecified Medication List Medication Instructions Start Date Stop Date Generic Name NDC Status Provider Patient Instruction HUMALOG 100 UNIT/ML SOLN 25 units subq before each meal INSULIN LISPRO (HUMAN) 78841984909 Active Priscila Valera MD Active LANTUS 100 UNIT/ML SOLN 25 units subq at bedtime INSULIN GLARGINE 17987639747 Active Priscila Valera MD Active TEMAZEPAM 15 MG CAPS take at bedtime as needed TEMAZEPAM 80601795052 Active Priscila Valera MD Active METOLAZONE 5 MG TABS Take one by mouth daily METOLAZONE 91589037163 Active Priscila Valera MD Active KLOR-CON 10 10 MEQ CR-TABS Take one by mouth daily POTASSIUM CHLORIDE 85027896877 Active Priscila Valera MD Active SUCRALFATE 1 GM TABS Take one by mouth four times daily, morning, noon, early evening and bedtime. SUCRALFATE 11054677894 Active Priscila Valera MD Active HYDROCODONE-ACETAMINOPHEN 10-325 MG TABS take at bedtime HYDROCODONE- ACETAMINOPHEN 20041699431 Active Priscila Valera MD Active ALPRAZOLAM 0.25 MG TABS take one tab by mouth twice daily as needed ALPRAZOLAM 07633671134 Active Priscila Valera MD Active VERAPAMIL HCL CR 240 MG CR-TABS Take one by mouth daily VERAPAMIL HCL 73026604590 Active Priscila Valera MD Active HYDROCHLOROTHIAZIDE 25 MG TABS Take one by mouth daily HYDROCHLOROTHIAZIDE 73391751405 Active Priscila Valera MD Active HYDROCODONE-ACETAMINOPHEN 7.5-325 MG TABS 1 by mouth every 6 hours as needed HYDROCODONE-ACETAMINOPHEN 43664342694 Active Arnold Ibarra MD Active OMEPRAZOLE 40 MG CPDR Take one by mouth daily OMEPRAZOLE 18254604412 Active Arnold Ibarra MD Active AMOXICILLIN 500 MG TABS 2 by mouth daily AMOXICILLIN 23118829861 Active Arnold Ibarra MD Active TRAZODONE HCL 100 MG TABS 1/2- 1 at bedtime TRAZODONE HCL 23112639902 Active Arnold Ibarra MD Active CLARITHROMYCIN 500 MG TABS by mouth twice a day CLARITHROMYCIN 35710658099 Active Arnold Ibarra MD Active CYCLOBENZAPRINE HCL 10 MG TABS Take one by mouth daily CYCLOBENZAPRINE HCL 99656786289 Active Arnold Ibarra MD Active GABAPENTIN 600 MG TABS 1 by mouth 3 times a day GABAPENTIN 52335027283 Active Arnold Ibarra MD Active ATENOLOL 50 MG TABS 1 1/2 daily ATENOLOL 34483649688 Active Arnold Ibarra MD Active PROMETHAZINE HCL 25 MG TABS 1 tab by mouth every 6 hours as needed for nausea/ vomiting PROMETHAZINE HCL 75881160805 Active Arnold Ibarra MD Active Encounters Code Encounter Date Provider Facility CPT-95153 Level 4 New Patient 15:17:54 CDT Priscila Valera MD [facility] CPT-58422 Level 2 Est. Patient 16:51:13 CDT Arnold Ibarra MD [facility] Procedures Code Procedure Name Date Entry Date Standard Description CPT-77586 Cystoscopy 15:17:54 CDT
--- OUTSIDE RECORDS SUMMARY | 2016-12-21 08:20 | XMS REPORT | Clinical Summary ---
Author Author Admin, BRANDON Organization [facility] Address Unknown Phone Unavailable Allergies, Adverse Reactions, Alerts Allergy Name Reaction Description Start Date Severity Status Provider IVP DYE hives, shortness of breath Critical Active Arnold Ibarra MD ZOFRAN hives Critical Active Arnold Ibarra MD HYDROCODONE vomiting Critical Active Arnold Ibarra MD CODEINE vomiting and hives Critical Active Arnold Ibarra MD COMPAZINE vomiiting 1999 Critical Active Arnold Ibarra MD SULFA hivkamila Critical Active Arnold Ibarra MD Conditions or Problems Problem Name Problem Code Onset Date Status Entry Date Provider Comment Standard Description Annotate CORONARY HEART DISEASE 414.00 Active ESAU Marroquin Coronary atherosclerosis of unspecified type of vessel, [place] or graft DIABETES, TYPE 2 250.00 Active [...] Take one by mouth daily PANTOPRAZOLE SODIUM 03094369971 Active Saumya Franciscoglari ELECTRIC LINEMAN Active OMEPRAZOLE 40 MG CPDR Take one by mouth daily OMEPRAZOLE 35759171897 No Longer Active Saumya Singhglari ELECTRIC LINEMAN Active LEVEMIR 100 UNIT/ML SOLN 40u twice daily at 10am, 10pm INSULIN DETEMIR 51405456286 Active Saumya Singhglari ELECTRIC LINEMAN Active LANTUS 100 UNIT/ML SOLN 40 units subq at bedtime INSULIN GLARGINE 66133338971 No Longer Active Saumya Singhglari ELECTRIC LINEMAN Active HUMALOG 100 UNIT/ML SOLN 30 units subq before each meal, add 4u/50 for blood sugars above 150. INSULIN LISPRO (HUMAN) 60082026744 Active Saumya Cora GURROLA Active LASIX 20 MG TABS Take 1 tablet daily FUROSEMIDE 34410235142 Active Bismark Landa MD Active HYZAAR 100-25 MG TABS Take 1 tablet daily LOSARTAN POTASSIUM- HCTZ 81371780507 Active Bismark Landa MD Active SYNTHROID 25 MCG TABS Take 1 tablet daily LEVOTHYROXINE SODIUM 42006886506 Active Bismark Landa MD Active ZANTAC 150 MG TABS Take 1 tablet BID RANITIDINE HCL 65899659830 Active Bismark Landa MD Active PERCOCET 10-325 MG TABS Take 1 tablet every 8 hours as needed for pain. 11/26 OXYCODONE-ACETAMINOPHEN 92896111657 Active Bismark Landa MD Active MORPHINE SULFATE ER 15 MG CR-TABS Take 1 tablet BID MORPHINE SULFATE 00596120093 Active Bismark Landa MD Active CELEXA 20 MG TABS Take 1 tablet BID CITALOPRAM HYDROBROMIDE 71553631246 Active Bismark Landa MD Active GABAPENTIN 600 MG TABS 1 by mouth QID GABAPENTIN 56127859027 Active Bismark Landa MD Active CLARITHROMYCIN 500 MG TABS by mouth twice a day CLARITHROMYCIN 94653570516 No Longer Active Bismark Landa MD Active TRAZODONE HCL 100 MG TABS 1/2- 1 at bedtime TRAZODONE HCL 87348553490 No Longer Active Bismark Landa MD Active AMOXICILLIN 500 MG TABS 2 by mouth daily AMOXICILLIN 46402745807 No Longer Active Bismark Landa MD Active HYDROCODONE-ACETAMINOPHEN 7.5-325 MG TABS 1 by mouth every 6 hours as needed HYDROCODONE-ACETAMINOPHEN 94477857470 No Longer Active Bismark Landa MD Active HYDROCHLOROTHIAZIDE 25 MG TABS Take one by mouth daily HYDROCHLOROTHIAZIDE 84573868169 No Longer Active Bismark Landa MD Active VERAPAMIL HCL CR 240 MG CR-TABS Take one by mouth daily VERAPAMIL HCL 27766265166 No Longer Active Bismark Landa MD Active ALPRAZOLAM 0.5 MG TABS Take 1 tablet TID ALPRAZOLAM 44760775743 Active Bismark Landa MD Active HYDROCODONE-ACETAMINOPHEN 10-325 MG TABS take at bedtime HYDROCODONE-ACETAMINOPHEN 18349725711 No Longer Active Bismark Landa MD Active SUCRALFATE 1 GM TABS Take one by mouth four times daily, morning, noon, early evening and bedtime. SUCRALFATE 38937771977 No Longer Active Bismark Landa MD Active KLOR-CON 10 10 MEQ CR-TABS Take one by mouth daily POTASSIUM CHLORIDE 75244406339 No Longer Active Bismark Landa MD Active METOLAZONE 5 MG TABS Take one by mouth daily METOLAZONE 95749385682 No Longer Active Bismark Landa MD Active TEMAZEPAM 30 MG CAPS Take 1 tablet at bed time. TEMAZEPAM 26185105454 Active Bismark Landa MD Active CYCLOBENZAPRINE HCL 10 MG TABS Take one by mouth daily CYCLOBENZAPRINE HCL 96716362222 Active Arnold Ibarra MD Active ATENOLOL 50 MG TABS 1 1/2 daily ATENOLOL 97904780782 Active Arnold Ibarra MD Active PROMETHAZINE HCL 25 MG TABS 1 tab by mouth every 6 hours as needed for nausea/ vomiting PROMETHAZINE HCL 41392109890 Active Arnold Ibarra MD Active METOLAZONE 5 MG TABS Take one by mouth daily METOLAZONE 5 MG TABS 733622 METOLAZONE Inactive KLOR-CON 10 10 MEQ CR-TABS Take one by mouth daily KLOR-CON 10 10 MEQ CR-TABS POTASSIUM CHLORIDE Inactive SUCRALFATE 1 GM TABS Take one by mouth four times daily, morning, noon, early evening and bedtime. SUCRALFATE 1 GM TABS 371312 SUCRALFATE Inactive HYDROCODONE-ACETAMINOPHEN 10-325 MG TABS take at bedtime HYDROCODONE-ACETAMINOPHEN 10-325 MG TABS 248152 HYDROCODONE-ACETAMINOPHEN Inactive VERAPAMIL HCL CR 240 MG CR-TABS Take one by mouth daily VERAPAMIL HCL CR 240 MG CR-TABS VERAPAMIL HCL Inactive HYDROCHLOROTHIAZIDE 25 MG TABS Take one by mouth daily HYDROCHLOROTHIAZIDE 25 MG TABS 538041 HYDROCHLOROTHIAZIDE Inactive HYDROCODONE-ACETAMINOPHEN 7.5-325 MG TABS 1 by mouth every 6 hours as needed HYDROCODONE-ACETAMINOPHEN 7.5-325 MG TABS 517850 HYDROCODONE-ACETAMINOPHEN Inactive AMOXICILLIN 500 MG TABS 2 by mouth daily AMOXICILLIN 500 MG TABS 693043 AMOXICILLIN Inactive TRAZODONE HCL 100 MG TABS 1/2- 1 at bedtime TRAZODONE HCL 100 MG TABS 801832 TRAZODONE HCL Inactive CLARITHROMYCIN 500 MG TABS by mouth twice a day CLARITHROMYCIN 500 MG TABS 656550 CLARITHROMYCIN Inactive LANTUS 100 UNIT/ML SOLN 40 units subq at bedtime LANTUS 100 UNIT/ML SOLN INSULIN GLARGINE Inactive OMEPRAZOLE 40 MG CPDR Take one by mouth daily OMEPRAZOLE 40 MG CPDR 016308 OMEPRAZOLE Inactive Vital Signs Date Name Value [...] Yes Encounters Code Encounter Date Provider Facility CPT-65090 Level 5 Est. Patient 13:05:17 CDT Saumya GURROLA [facility] CPT-90157 Level 4 Est. Patient 14:58:44 CDT Bismark Landa MD [facility] CPT-28294 Level 4 New Patient 15:17:54 CDT Priscila Valera MD [facility] CPT-75274 Level 2 Est. Patient 16:51:13 CDT Arnold Ibarra MD [facility] Procedures Code Procedure Name Date Entry Date Standard Description CPT-59106 Cystoscopy 15:17:54 CDT
--- OUTSIDE RECORDS SUMMARY | 2016-12-21 08:20 | XMS REPORT ---
Author Author [facility] Medical Staff Organization [facility] Address [address] [place], [place] [id number] Phone [phone] Care Team Providers Care Syrup Blender Name Role Phone MEAGNA FOSTER PP [phone] Summary purpose CCDA Sent to [facility] Chief Complaint and Reason for Visit Admit Diagnosis 1 COUGH Problem list No authorized problems tracked for [...] diagnostic tests and/or laboratory data RESULTS CBC [id number]:20:00 Result Normal Range Units WBC 8.76 4.60-10.20 x 103/uL RBC 4.29 4.04-6.13 x 106/uL Hemoglobin 12.3 12.2-18.1 g/dl Hematocrit 38.7 37.7-53.7 % MCV 90.2 80.0-97.0 FL MCH 28.7 27.0-31.2 pg MCHC 31.8 31.8-35.4 g/dl RDW 13.0 11.6-14.8 % Platelets 217 142-424 x 103/uL Manual Diff Not Indicated MPV 9.7 9.4-12.4 FL Neutrophil % 47.7 37-80 % Neutrophils 4.18 2.0-6.9 x 103/uL Lymphocyte % 42.9 10-50 % Lymphocytes H 3.76 0.6-3.4 x 103/uL Monocyte % 5.5 0-12 % Monocytes 0.48 0.0-1.0 x 103/uL Eosinophil % 3.2 0-7 % Eosinophils 0.28 0-0.7 x 103/uL Basophil % 0.7 0-2 % Basophils 0.06 0.0-0.1 x 103/uL Chemistry Group [id number] Result Normal Range Units Glucose HC 456 65-110 mg/dl Result successfully called to MEAGAN ALVARADO on 09/05/2014 at 14:59 by [facility] BUN 11 7-21 mg/dl Creatinine 0.7 0.7-1.5 mg/dl Sodium L 130 137-145 mmol/L Potassium 4.4 3.6-5.0 mmol/L Chloride L 95 98-107 mmol/L CO2 23 22-30 mmol/L BUN/Creatinine Ratio 17.0 7-25 Ratio Calcium 8.9 8.4-10.2 mg/dl Protein Total 6.9 6.3-8.2 g/dl Albumin 3.9 3.5-5.0 g/dl A/G Ratio 1.3 1.2-2.2 Ratio AST H 59 15-46 U/L ALT 55 7-56 U/L ALP 100 38-126 U/L Bilirubin Total 0.7 0.2-1.3 mg/dl Osmolality 272 261-280 mOsm/kg Globulin 3.1 2.4-3.5 g/dL History of procedures Procedure Code Code Type Description Date Performed Performing Physician [id number] CPT-4 COMPLETE CBC W/AUTO DIFF WBC 09-05-2014 MEAGAN ALVARADO [id number] CPT-4 COMPREHEN METABOLIC PANEL 09-05-2014 MEAGAN ALVARADO 96084 CPT-4 ROUTINE VENIPUNCTURE 09-05-2014 MEAGAN ALVARADO Functional status No functional or [...]
--- OUTSIDE RECORDS SUMMARY | 2016-12-21 08:21 | XMS REPORT ---
Author Author MIRZA MARTINO Organization [employer] Address Unknown Phone Unavailable Care Team Providers Care Reconciliation Specialist Name Role Phone MIRZA MARTINO CP Unavailable Allergies, Adverse Reactions, Alerts Substance Reaction Event Type Compazine Info Not Available Drug Allergy Zofran Info Not Available Drug Allergy Sulfamethoxazole-Trimethoprim Info Not Available Drug Allergy Metoclopramide HCl Info Not Available Drug Allergy Iodine Info Not Available Drug Allergy Hydrocodone-Acetaminophen Info Not Available Drug Allergy Codeine Sulfate Info Not Available Drug Allergy Acetaminophen Info Not Available Drug Allergy IV Dye Info Not Available Non Drug Allergy Problems Problem Type Condition Code Onset Dates Condition Status Problem Nodule of chest wall R22.2 Active Assessment Primary insomnia F51.01 Active Problem Gastroparesis K31.84 Active Assessment Screening breast examination Z12.39 Active Problem Epigastric pain R10.13 Active Problem Chronic pain syndrome G89.4 Active Problem 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 Active Problem Primary insomnia F51.01 Active Problem Type 2 diabetes mellitus with foot ulcer E11.621 Active Assessment Gastroparesis K31.84 Active Assessment Nodule of chest wall R22.2 Active Problem Screening breast examination Z12.39 Active Assessment Anxiety F41.9 Active Problem Essential hypertension I10 Active Problem Acquired hypothyroidism E03.9 Active Problem Type 2 diabetes mellitus with diabetic autonomic (poly)neuropathy E11.43 Active Problem Congestive heart failure, unspecified congestive heart failure chronicity, unspecified congestive heart failure type I50.9 Active Assessment Chronic pain syndrome G89.4 Active Assessment Acquired hypothyroidism E03.9 Active Assessment 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 Active Assessment Type 2 diabetes mellitus with foot ulcer E11.621 Active Assessment Congestive heart failure, unspecified congestive heart failure chronicity, unspecified congestive heart failure type I50.9 Active Problem Anxiety F41.9 Active Assessment Essential hypertension I10 Active Assessment Type 2 diabetes mellitus with diabetic autonomic (poly)neuropathy E11.43 Active Medications Medication Code System Code Instructions Start Date End Date Status Dosage Oxygen [facility] 0 at bedtime 3L nasal canal Insulin Syringe [facility] 8326-009273 31G X 16 not defined Cyclobenzaprine HCl [facility] [address]-55 10 mg Orally Three times a day 1 tablet Levothyroxine Sodium [facility] [address]-00 75 MCG Orally Once a day 1 tablet Levemir FlexTouch [facility] [address]-74 100 UNIT/ML Subcutaneous at bedtime 35 units Zantac [facility] [address]-46 150 MG Orally twice a day 1 tablet Benadryl Allergy [facility] [address]-87 25 MG Orally Once a day at bedtime 2 tablet as needed Morphine Sulfate ER [facility] [address]-67 15 MG Orally every 12 hrs 1 tablet Atenolol [facility] [address]-90 50 mg Orally Once a day 1.5 tablet Alprazolam [facility] [address]-33 1 MG Orally Three times a day 1 tablet Temazepam [facility] [address]-57 30 MG Orally Once a day 1 capsule at bedtime as needed Humulin R [facility] [address]-99 100 UNIT/ML Injection 3 times a day before each meal 30 units Pantoprazole Sodium [facility] [address]-84 40 mg Orally Once a day 1 tablet Furosemide [facility] [address]-38 20 MG Orally Once a day 1 tablet Tylenol [facility] [address]-43 500 MG/15ML Orally Once a day @ HS 2 tablets Levothyroxine Sodium [facility] [address]-25 75 MCG Orally Once a day 1 tablet Chantix [facility] [address]-91 1 MG Orally Twice a day 1 tablet Nystatin [facility] [address]-64 820493 UNIT/GM Externally Twice a day 1 to affected area Tresiba FlexTouch [facility] [address]-65 100 UNIT/ML Subcutaneous Once a day at bedtime 75 units Percocet [facility] [address]-65 10-325 MG Orally 3 times a day 1 tablet as needed Cambia [facility] [address]-91 50 mg Orally Once a day prn only with terrible headaches January 05, 2016 1 packet on an empty stomach one time Nitrostat [facility] [address]-55 0.4 MG Sublingual not defined Escitalopram Oxalate [facility] [address]-27 20 mg Orally Once a day 1 tablet Metolazone [facility] [address]-36 5 MG Orally every 24 hrs 1 tablet Gabapentin [facility] [address]-79 600 MG Orally 4 times a day 1 tablet Mupirocin [facility] [address]-57 2 % Externally Three times a day 1 application to affected area Seroquel XR [facility] [address]-76 50 mg Orally Once a day at HS 2 tablet in the evening Losartan Potassium-HCTZ [facility] [address]-53 100-25 MG Orally Once a day 1 tablet Movantik [facility] [address]-10 25 MG Orally Once a day 1 tablet in the morning Oxycodone-Acetaminophen [facility] [address]-90 10-325 MG Orally 3 times a day 1 tablet as needed Promethazine HCl [facility] [address]-62 25 MG Orally every 6 hrs prn 1 tablet as needed Procedures Procedure Coding System Code Date LAB NOT BILLED BY [facility] CPT-4 NOBLL December 31, 2015 Office Visit, Est Pt., Level 5 CPT-4 05694 December 31, 2015 GLYCATED HEMOGLOBIN TEST CPT-4 35001 December 31, 2015 VENIPUNCT, ROUTINE* CPT-4 83233 December 31, 2015 Vital Signs Date/Time: December 31, 2015 Cardiac Monitoring Heart Rate 82 bpm Weight 246. lbs Height 62 in Blood Pressure Diastolic 83 mmHg Blood Pressure Systolic 131 mmHg Results No Known Results Summary Purpose [employer] Submission
--- OUTSIDE RECORDS SUMMARY | 2016-12-21 08:21 | XMS REPORT ---
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
--- OUTSIDE RECORDS SUMMARY | 2016-12-21 08:21 | XMS REPORT | Clinical Summary ---
Author Author Admin, BRANDON Organization [facility] Address Unknown Phone Unavailable Allergies, Adverse Reactions, [...] Coronary atherosclerosis of unspecified type of vessel, big sandy or graft DIABETES, TYPE 2 250.00 Active [...] Take one by mouth daily PANTOPRAZOLE SODIUM 91292085964 Active Saumya Franciscoglari BROADCAST CORRESPONDENT Active OMEPRAZOLE 40 MG CPDR Take one by mouth daily OMEPRAZOLE 00301615144 No Longer Active Saumya Singhglari BROADCAST CORRESPONDENT Active LEVEMIR 100 UNIT/ML SOLN 40u twice daily at 10am, 10pm INSULIN DETEMIR 19918523307 Active Saumya Singhglari BROADCAST CORRESPONDENT Active LANTUS 100 UNIT/ML SOLN 40 units subq at bedtime INSULIN GLARGINE 34299247683 No Longer Active Saumya Singhglari BROADCAST CORRESPONDENT Active HUMALOG 100 UNIT/ML SOLN 30 units subq before each meal, add 4u/50 for blood sugars above 150. INSULIN LISPRO (HUMAN) 59620107918 Active Saumya Cora GURROLA Active LASIX 20 MG TABS Take 1 tablet daily FUROSEMIDE 54171696168 Active Bismark Landa MD Active HYZAAR 100-25 MG TABS Take 1 tablet daily LOSARTAN POTASSIUM- HCTZ 10234101952 Active Bismark Landa MD Active SYNTHROID 25 MCG TABS Take 1 tablet daily LEVOTHYROXINE SODIUM 94584330747 Active Bismark Landa MD Active ZANTAC 150 MG TABS Take 1 tablet BID RANITIDINE HCL 91946332207 Active Bismark Landa MD Active PERCOCET 10-325 MG TABS Take 1 tablet every 8 hours as needed for pain. 11/26 OXYCODONE-ACETAMINOPHEN 49045199707 Active Bismark Landa MD Active MORPHINE SULFATE ER 15 MG CR-TABS Take 1 tablet BID MORPHINE SULFATE 22925504122 Active Bismark Landa MD Active CELEXA 20 MG TABS Take 1 tablet BID CITALOPRAM HYDROBROMIDE 44221088945 Active Bismark Landa MD Active GABAPENTIN 600 MG TABS 1 by mouth QID GABAPENTIN 69738895113 Active Bismark Landa MD Active CLARITHROMYCIN 500 MG TABS by mouth twice a day CLARITHROMYCIN 46096556116 No Longer Active Bismark Landa MD Active TRAZODONE HCL 100 MG TABS 1/2- 1 at bedtime TRAZODONE HCL 92668657537 No Longer Active Bismark Landa MD Active AMOXICILLIN 500 MG TABS 2 by mouth daily AMOXICILLIN 41038577999 No Longer Active Bismark Landa MD Active HYDROCODONE-ACETAMINOPHEN 7.5-325 MG TABS 1 by mouth every 6 hours as needed HYDROCODONE-ACETAMINOPHEN 02007861236 No Longer Active Bismark Landa MD Active HYDROCHLOROTHIAZIDE 25 MG TABS Take one by mouth daily HYDROCHLOROTHIAZIDE 94136325587 No Longer Active Bismark Landa MD Active VERAPAMIL HCL CR 240 MG CR-TABS Take one by mouth daily VERAPAMIL HCL 54390895448 No Longer Active Bismark Landa MD Active ALPRAZOLAM 0.5 MG TABS Take 1 tablet TID ALPRAZOLAM 86534989912 Active Bismark Landa MD Active HYDROCODONE-ACETAMINOPHEN 10-325 MG TABS take at bedtime HYDROCODONE-ACETAMINOPHEN 48827322490 No Longer Active Bismark Landa MD Active SUCRALFATE 1 GM TABS Take one by mouth four times daily, morning, noon, early evening and bedtime. SUCRALFATE 54683638927 No Longer Active Bismark Landa MD Active KLOR-CON 10 10 MEQ CR-TABS Take one by mouth daily POTASSIUM CHLORIDE 62243640376 No Longer Active Bismark Landa MD Active METOLAZONE 5 MG TABS Take one by mouth daily METOLAZONE 30534413814 No Longer Active Bismark Landa MD Active TEMAZEPAM 30 MG CAPS Take 1 tablet at bed time. TEMAZEPAM 70912799007 Active Bismark Landa MD Active CYCLOBENZAPRINE HCL 10 MG TABS Take one by mouth daily CYCLOBENZAPRINE HCL 59533085396 Active Arnold Ibarra MD Active ATENOLOL 50 MG TABS 1 1/2 daily ATENOLOL 89851081017 Active Arnold Ibarra MD Active PROMETHAZINE HCL 25 MG TABS 1 tab by mouth every 6 hours as needed for nausea/ vomiting PROMETHAZINE HCL 40974295399 Active Arnold Ibarra MD Active METOLAZONE 5 MG TABS Take one by mouth daily METOLAZONE 5 MG TABS 314280 METOLAZONE Inactive KLOR-CON 10 10 MEQ CR-TABS Take one by mouth daily KLOR-CON 10 10 MEQ CR-TABS POTASSIUM CHLORIDE Inactive SUCRALFATE 1 GM TABS Take one by mouth four times daily, morning, noon, early evening and bedtime. SUCRALFATE 1 GM TABS 458064 SUCRALFATE Inactive HYDROCODONE-ACETAMINOPHEN 10-325 MG TABS take at bedtime HYDROCODONE-ACETAMINOPHEN 10-325 MG TABS 515690 HYDROCODONE-ACETAMINOPHEN Inactive VERAPAMIL HCL CR 240 MG CR-TABS Take one by mouth daily VERAPAMIL HCL CR 240 MG CR-TABS VERAPAMIL HCL Inactive HYDROCHLOROTHIAZIDE 25 MG TABS Take one by mouth daily HYDROCHLOROTHIAZIDE 25 MG TABS 305011 HYDROCHLOROTHIAZIDE Inactive HYDROCODONE-ACETAMINOPHEN 7.5-325 MG TABS 1 by mouth every 6 hours as needed HYDROCODONE-ACETAMINOPHEN 7.5-325 MG TABS 274566 HYDROCODONE-ACETAMINOPHEN Inactive AMOXICILLIN 500 MG TABS 2 by mouth daily AMOXICILLIN 500 MG TABS 136165 AMOXICILLIN Inactive TRAZODONE HCL 100 MG TABS 1/2- 1 at bedtime TRAZODONE HCL 100 MG TABS 580222 TRAZODONE HCL Inactive CLARITHROMYCIN 500 MG TABS by mouth twice a day CLARITHROMYCIN 500 MG TABS 430421 CLARITHROMYCIN Inactive LANTUS 100 UNIT/ML SOLN 40 units subq at bedtime LANTUS 100 UNIT/ML SOLN INSULIN GLARGINE Inactive OMEPRAZOLE 40 MG CPDR Take one by mouth daily OMEPRAZOLE 40 MG CPDR 298634 OMEPRAZOLE Inactive Vital Signs Date Name Value [...] Yes Encounters Code Encounter Date Provider Facility CPT-00483 Level 5 Est. Patient 13:05:[address] [facility] CPT-58222 Level 4 Est. Patient 14:58:44 CDT Bismark Landa MD [facility] CPT-53628 Level 4 New Patient 15:17:54 CDT Priscila Valera MD [facility] CPT-98751 Level 2 Est. Patient 16:51:13 CDT Arnold Ibarra MD [facility] Procedures Code Procedure Name Date Entry Date Standard Description CPT-55189 Cystoscopy 15:17:54 CDT
--- OUTSIDE RECORDS SUMMARY | 2016-12-21 08:21 | XMS REPORT ---
Author Author [facility] Medical Staff Organization [facility] Address [address] [place], [place] [address] Phone [phone] Care Team Providers Care Brush Hand Name Role Phone MEAGAN FOSTER PP [phone] Summary purpose CCDA Sent to [facility] Chief Complaint and Reason for [...] Code Type Description Date Performed Performing Physician 52507 CPT-4 IRRIG DRUG DELIVERY DEVICE 05-06-2015 MEAGAN ALVARADO J1642 CPT-4 INJ HEPARIN SODIUM PER 10 U 05-06-2015 MEAGAN ALVARADO Functional status No functional or cognitive status observations are available for this visit. Vital signs Type Value Date Respirations 20 78-15-789730:13 Pulse 60 12-52-377966:13 O2 Saturation 93% 73-79-351356:13 Systolic Blood Press 120mm/HG 01-88-202690:13 Diastolic Blood Pres 68mm/HG 36-80-591534:13 Temperature (Fahr) 98.0Degrees 08-15-458185:13 Social history No Social History or smoking status observations were recorded for this visit. ( Unknown if ever smoked.) Treatment Plan No treatment plan text is available for this visit. Hospital discharge instructions No discharge instruction text is available for this visit.
--- OUTSIDE RECORDS SUMMARY | 2016-12-21 08:21 | XMS REPORT ---
Author Author [facility] Medical Staff Organization [facility] Address [address] [place], [place] [address] Phone [phone] Care Team Providers Care Pit Steward Name Role Phone MEAGAN FOSTER PP [phone] Summary purpose CCDA Sent to [facility] Chief Complaint and Reason for Visit No [...] Code Type Description Date Performed Performing Physician J1642 CPT-4 HEP INJECTION 06-03-2015 MEAGAN ALVARADO 67124 CPT-4 IRRIG DRUG DELIVERY DEVICE 06-03-2015 MEAGAN ALVARADO Functional status No functional or cognitive status observations are available for this visit. Vital signs Type Value Date Respirations 18 96-41-025540:10 Pulse 83 78-49-020800:10 O2 Saturation 96% 22-64-180925:10 Systolic Blood Press 138mm/HG 50-49-564939:10 Diastolic Blood Pres 86mm/HG 58-17-863537:10 Temperature (Fahr) 98.2Degrees 95-09-373952:10 Social history No Social History or smoking status observations were recorded for this visit. ( Unknown if ever smoked.) Treatment Plan No treatment plan text is available for this visit. Hospital discharge instructions No discharge instruction text is available for this visit.
--- OUTSIDE RECORDS SUMMARY | 2016-12-21 08:22 | XMS REPORT ---
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 Active Problem Anxiety F41.9 Active Problem Nodule of chest wall R22.2 Active Assessment Anxiety F41.9 Active Problem Gastroparesis K31.84 Active Assessment Type 2 diabetes mellitus with diabetic autonomic (poly)neuropathy E11.43 Active Problem Epigastric pain R10.13 Active Medications Medication Code System Code Instructions Start Date End Date Status Dosage Levothyroxine Sodium [facility] [address]-68 75 MCG Orally Once a day 1 tablet Tylenol [facility] [address]-49 500 MG/15ML Orally Once a day @ HS 2 tablets Gabapentin [facility] [address]-05 600 MG Orally 4 times a day 1 tablet Seroquel XR [facility] [address]-89 50 mg Orally Once a day at HS 2 tablet in the evening Insulin Syringe [facility] 8326-311524 31G X 5/16 not defined Promethazine HCl [facility] [address]-90 25 MG Orally every 6 hrs prn 1 tablet as needed Humulin R U-500 (Concentrated) [facility] [address]-92 500 UNIT/ML Subcutaneous 3 times a day with meals January 07, 2016 35 units or per sliding scale Cyclobenzaprine HCl [facility] [address]-95 10 mg Orally Three times a day 1 tablet Alprazolam [facility] [address]-47 1 MG Orally Three times a day 1 tablet Levothyroxine Sodium [facility] [address]-05 75 MCG Orally Once a day 1 tablet Zantac [facility] [address]-72 150 MG Orally twice a day 1 tablet Pantoprazole Sodium [facility] [address]-12 40 mg Orally Once a day 1 tablet Temazepam [facility] [address]-90 30 MG Orally Once a day 1 capsule at bedtime as needed Tresiba FlexTouch [facility] [address]-08 100 UNIT/ML Subcutaneous Once a day at bedtime 75 units Oxygen ND 0 at bedtime 3L nasal canal Chantix [facility] [address]-98 1 MG Orally Twice a day 1 tablet Losartan Potassium-HCTZ [facility] [address]-97 100-25 MG Orally Once a day 1 tablet Atenolol [facility] [address]-40 50 mg Orally Once a day 2 tablet Escitalopram Oxalate [facility] [address]-49 20 mg Orally Once a day 1 tablet Nystatin [facility] [address]-28 922599 UNIT/GM Externally Twice a day 1 to affected area Benadryl Allergy [facility] [address]-52 25 MG Orally Once a day at bedtime 2 tablet as needed Levemir FlexTouch [facility] [address]-93 100 UNIT/ML Subcutaneous 2 times a day 35 units Procedures Procedure Coding System Code Date Office Visit, Est Pt., Level 5 CPT-4 11593 Jan 28, 2016 GLUCOSE BLOOD TEST CPT-4 88586 Jan 28, 2016 Vital Signs Date/Time: Jan 28, 2016 Cardiac Monitoring Heart Rate 94 bpm Weight 244.6 lbs Height 62 in BMI 44.73 Index Blood Pressure Diastolic 68 mmHg Blood Pressure Systolic 100 mmHg Results No Known Results Summary Purpose eClinicalWorks Submission
--- OUTSIDE RECORDS SUMMARY | 2016-12-21 08:22 | XMS REPORT ---
Author Author [facility] Medical Staff Organization [facility] Address [address] [place], [place] [address] Phone [phone] Care Team Providers Care Classification Analyst Name Role Phone MEAGAN FOSTER PP [phone] Summary purpose CCDA Sent to [facility] Chief Complaint and Reason for [...] diagnostic tests and/or laboratory data RESULTS CBC 71-87-629205:20:00 Result Normal Range Units WBC 8.76 4.60-10.20 [...] Basophils 0.06 0.0-0.1 x 103/uL Chemistry Group 08-95-502277:20:00 Result Normal Range Units Glucose HC 456 65-110 mg/dl Result successfully called to MEAGAN ALVARADO on 09/05/2014 at 14:59 by MANDEEPE-Semble./TO JEANCARLOS BUN 11 7-21 mg/dl Creatinine 0.7 [...]
--- OUTSIDE RECORDS SUMMARY | 2016-12-21 08:22 | XMS REPORT ---
Author Author MIRZA MARTINO [facility] Address [address] [place] [address] Care Team Providers Care Gas Plant Operator Name Role Phone MIRZA MARTINO Unavailable PROBLEMS Type Condition ICD9-CM Code INV18-PZ Code Onset Dates Condition Status SNOMED Code Problem Acquired hypothyroidism E03.9 Active 939058962 Problem Congestive heart failure, unspecified congestive heart failure chronicity, unspecified congestive heart failure type I50.9 Active 61567815 Problem Essential hypertension I10 Active 05711157 Problem Recurrent major depressive disorder, remission status unspecified F33.9 Active 75220623 Problem 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 Active 83854388 Problem Type 2 diabetes mellitus with foot ulcer E11.621 Active 2356393802473 Problem Type 2 diabetes mellitus with diabetic autonomic (poly)neuropathy E11.43 Active 887302617 Problem Screening breast examination Z12.39 Active 209811335 Problem Primary insomnia F51.01 Active 1209032 Problem Gastroparesis K31.84 Active 421412998 Problem Epigastric pain R10.13 Active 51453618 Problem Anxiety F41.9 Active 09136498 Problem 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
--- OUTSIDE RECORDS SUMMARY | 2016-12-21 08:22 | XMS REPORT | Referral Summary ---
Author Author [facility] Organization [facility] Address Unknown Phone Unavailable Care Team Providers Care Certified Ski Patroller Name Role Phone Yisel Patterson PCP Encounter Date(s): 04/21/15 - 04/21/15 [facility] [address] [place] [address] [facility] Discharge Diagnosis: Autoimmune diabetes Discharge Disposition: 01-Home or Self Care Attending Physician: Cynthia Antony Admitting Physician: Cynthia Antony Referring Physician: Yisel Patterson APRN Vital Signs Most recent to 1 oldest [...] 0 Refill(s) Start Date: 04/21/15 Status: Ordered HumaLOG SubCutaneous, 0 Refill(s) Start Date: 04/21/15 Status: Ordered Levaquin q24hr, 0 Refill(s) Start Date: 04/21/15 Status: Ordered Lexapro Oral, Daily, 0 Refill(s) Start Date: 04/21/15 Status: Ordered morphine 0 Refill(s) Start Date: 04/21/15 Status: Ordered Percocet 5/325 oral tablet 1 tabs, Oral, q4hr, as needed for pain, 0 Refill(s) Start Date: 04/21/15 Status: Ordered Promethegan Rectal, q6hr, 0 Refill(s) Start Date: 04/21/15 Status: Ordered Synthroid Oral, Daily, 0 Refill(s) Start Date: 04/21/15 Status: Ordered temazepam Oral, Bedtime (once a [...] of NovoLog was given today. She was [id number] ofwaterto drink. I went ahead and checked patient's C-peptideas she has not had breakfast or lunch. She apparently only eats yogurtat suppertime. If C-peptide is detectable,additional oral agents ornon-insulin injectables regimenwill be introduced. If C-peptide is not detectable,I would change her mealtime NovoLogto Humulin R K148tkubznr. Goacewn709 units twice dailyto be continued for now. [...] the insulin pumpis notanexternal pancreas,and is therefore waxed bag machine operator dependent,could domore harm than good. Check CBC, chemistry, A1c, urine albuminand thyroid panel. Adjust thyroidregimen, as needed. Proper way of taking thyroid medication to optimize absorption explained. Assured about unremarkable thyroid exam today. Return to clinic in one month, sooner if with new problems. Referrals to Other Providers Referred by: Kushal Allison MD
--- OUTSIDE RECORDS SUMMARY | 2016-12-21 08:22 | XMS REPORT ---
Author Author MIRZA MARTINO [facility] Address [address] [place] [address] Care Team Providers Care Vice Principal Name Role Phone MIRZA MARTINO Unavailable PROBLEMS Type Condition ICD9-CM Code [id number] Code Onset Dates Condition Status SNOMED Code Assessment Vaginal yeast infection B37.3 Apr, Active 57786328 Assessment Weakness R53.1 Apr, Active 97707513 Problem Anxiety F41.9 Active 29985674 Problem Nodule of chest wall R22.2 Active 433291842 Problem shelter 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 Active 207521895 Problem Gastroparesis K31.84 Active 512544024 Problem Type 2 diabetes mellitus with unspecified complications E11.8 Active 37272394 Problem Epigastric pain R10.13 Active 95703951 Problem Tobacco abuse Z72.0 Active 340978199 Problem Thrush B37.0 Active 67252264 Problem Bronchitis J40 Active 04951353 Problem Vaginal bleeding N93.9 Active 072889401 Problem Weakness R53.1 Active 96422916 Problem Acquired hypothyroidism E03.9 Active 265145445 Problem Chronic pain syndrome G89.4 Active 276365545 Problem 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 Active 215040617 Problem Drowsiness R40.0 Active 837698759 Problem Type 1 diabetes mellitus without complication E10.9 Active 262333240 Problem Anxiety, generalized F41.1 Active 48471197 Problem Severe episode of recurrent major depressive disorder, without 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 Active 50280192 Problem Type 2 diabetes mellitus with diabetic autonomic (poly)neuropathy E11.43 Active 569556260 Problem Type 2 diabetes mellitus with foot ulcer E11.621 Active 9720318377612 Problem Essential hypertension I10 Active 58604789 Problem Congestive heart failure, unspecified congestive heart failure chronicity, unspecified congestive heart failure type I50.9 Active 07817671 Problem 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 Active 15632056 Problem Recurrent major depressive disorder, remission status unspecified F33.9 Active 23363755 Problem Primary insomnia F51.01 Active 9872240 Problem Screening breast examination Z12.39 Active 827400935 ALLERGIES Substance Reaction Event Type Date Status Compazine Unknown Drug Allergy Apr, Active Zofran Unknown Drug Allergy Apr, Active Tizanidine HCl seizure Drug Allergy Apr, Active Sulfamethoxazole-Trimethoprim Unknown Drug Allergy Apr, Active Metoclopramide HCl Unknown Drug Allergy Apr, Active Iodine Unknown Drug Allergy Apr, Active Hydrocodone-Acetaminophen Unknown Drug Allergy Apr, Active Codeine Sulfate Unknown Drug Allergy Apr, Active Acetaminophen Unknown Drug Allergy Apr, Active IV Dye Unknown Non Drug Allergy Apr, Active SOCIAL HISTORY No smoking Hx information available PLAN OF CARE VITAL SIGNS Height 62 in 2016-05-24 Weight 253 lbs 2016-05-24 Heart Rate 84 bpm 2016-05-24 Respiratory Rate 20 2016-05-24 BMI 46.27 kg/m2 2016-05-24 Blood pressure systolic 118 mmHg 2016-05-24 Blood pressure diastolic 70 mmHg 2016-05-24 MEDICATIONS Medication Instructions Dosage Frequency Start Date End Date Duration Status Luis Fernando Contour Test - In Vitro 3 times a day as directed 8h Jan, Active Atenolol 50 mg Orally Once a day 2 tablet 24h Active Promethazine HCl 25 MG TAKE ONE TABLET BY MOUTH EVERY 6 HOURS NEEDED 15 Active Insulin Syringe 31G X 11/08 Active Chantix 0.5 MG Orally Once a day x 3 days then bid 1 tablet Apr, May, 30 day(s) Active Levothyroxine Sodium 75 MCG Orally Once a day 1 tablet 24h Active Humulin R U-500 (Concentrated) 500 UNIT/ML Subcutaneous 3 times a day with meals 45 units or per sliding scale Active Oxygen 3L nasal canal Active Amoxicillin 500 MG Orally every 12 hrs 1 capsule 12h Apr, May, 10 day(s) Active Diflucan 100 MG Orally daily 1 tablet 24h Apr, May, 5 day( s) Active Nystatin 339271 UNIT/ML Mouth/Throat Four times a day 4 ml 6h 12 Mar, 2016 Active Pantoprazole Sodium 40 mg Orally Once a day 1 tablet 24h Active Zantac 150 MG Orally twice a day 1 tablet 12h 30 day(s) Active Losartan Potassium-HCTZ 100-25 MG Orally Once a day 1 tablet 24h Active Gabapentin 800 MG Orally 4 times a day 1 tablet 6h Active Alprazolam 1 MG Orally Three times a day must last 28 days 1 tablet Active Escitalopram Oxalate 20 mg Orally Once a day 1 tablet 24h Active Benadryl Allergy 25 MG Orally Once a day at bedtime 2 tablet as needed Active Seroquel XR 50MG TAKE TWO TABLETS BY MOUTH ONCE DAILY AT BEDTIME 28 Active Temazepam 30 MG Orally Once a day 1 capsule at bedtime as needed 24h Active Tylenol 500 MG/15ML Orally Once a day @ HS 2 tablets Active Nystatin 170406 UNIT/GM Externally Twice a day 1 to affected area 12h Active Furosemide 20 mg Orally Once a day 1 tablet 24h Active RESULTS Name Result Date Reference Range GLUCOSE FINGERSTICK (IN HOUSE) 2016-05-24 GLU FINGERSTICK 438 PC Lot # [id number] Exp date 07/2016 AMMONIA 2016-05-24 Ammonia, Plasma TNP Request Problem TNP MAGNESIUM, SERUM 2016-05-24 Magnesium, Serum 1.7 1.6-2.3 CBC 2016-05-24 WBC 6.8 3.4-10.8 RBC 4.33 3.77-5.28 Hemoglobin 12.5 11.1-15.9 Hematocrit 39.3 34.0-46.6 MCV 91 79-97 MCH 28.9 26.6-33.0 MCHC 31.8 31.5-35.7 RDW 12.9 12.3-15.4 Platelets 240 150-379 Neutrophils 44 Lymphs 47 Monocytes 6 Eos 3 Basos 0 Neutrophils (Absolute) 3.0 1.4-7.0 Lymphs (Absolute) 3.2 0.7-3.1 Monocytes(Absolute) 0.4 0.1-0.9 Eos (Absolute) 0.2 0.0-0.4 Baso (Absolute) 0.0 0.0-0.2 Immature Granulocytes 0 Immature Grans (Abs) 0.0 0.0-0.1 CULTURE, GENITAL 2016-05-24 Genital Culture, Routine Preliminary report Result 1 CMP 2016-05-24 Glucose, Serum 430 65-99 BUN 7 6-24 Creatinine, Serum 0.75 0.57-1.00 eGFR If NonAfricn Am 96 >59 eGFR If Africn Am 111 >59 BUN/Creatinine Ratio 9 9-23 Sodium, Serum 128 136-144 Potassium, Serum 4.3 3.5-5.2 Chloride, Serum 88 97-106 Carbon Dioxide, Total 20 18-29 Calcium, Serum 8.3 8.7-10.2 Protein, Total, Serum 6.3 6.0-8.5 Albumin, Serum 3.7 3.5-5.5 Globulin, Total 2.6 1.5-4.5 A/G Ratio 1.4 1.1-2.5 Bilirubin, Total <0.2 0.0-1.2 Alkaline Phosphatase, S 98 39-117 AST (SGOT) 12 0-40 ALT (SGPT) 16 0-32 PROCEDURES Procedure Date Ordered Related Diagnosis Body Site GLUCOSE BLOOD TEST May 24, 2016 LAB NOT BILLED BY [facility] May 24, 2016 VENIPUNCT, ROUTINE* May 24, 2016 Office Visit, Est Pt., Level 5 May 24, 2016 IMMUNIZATIONS No Known Immunizations
--- OUTSIDE RECORDS SUMMARY | 2016-12-21 08:22 | XMS REPORT ---
Author Author [facility] Medical Staff Organization [facility] Address [address] [place], [place] [address] Phone [phone] Care Team Providers Care Sales Product Specialist Name Role Phone MEAGAN FOSTER PP [phone] Summary purpose CCDA Sent to [facility] Chief Complaint and Reason for Visit [...] diagnostic tests and/or laboratory data RESULTS CBC [id number]:00:00 Result Normal Range Units WBC 7.94 4.60-10.20 x 103/uL RBC 4.81 4.04-6.13 x 106/uL Hemoglobin 13.6 12.2-18.1 g/dl Hematocrit 41.3 37.7-53.7 % MCV 85.9 80.0-97.0 FL MCH 28.3 27.0-31.2 pg MCHC 32.9 31.8-35.4 g/dl RDW 12.9 11.6-14.8 % Platelets 238 142-424 x 103/uL MPV 10.4 9.4-12.4 FL Manual Diff Not Indicated Neutrophil % 64.8 37-80 % Neutrophils 5.15 2.0-6.9 x 103/uL Lymphocyte % 28.5 10-50 % Lymphocytes 2.26 0.6-3.4 x 103/uL Monocyte % 4.8 0-12 % Monocytes 0.38 0.0-1.0 x 103/uL Eosinophil % 1.3 0-7 % Eosinophils 0.10 0-0.7 x 103/uL Basophil % 0.6 0-2 % Basophils 0.05 0.0-0.1 x 103/uL Chemistry Group [id number]:00:00 Result Normal Range Units Glucose HC 482 70-99 mg/dl Test reran and result successfully called to MEAGAN ALVARADO on 07/08/2015 at 16:37 by PATRICIA.Talked to Aj PERALTA. BUN 12 7-26 mg/dl Creatinine 1.0 0.6-1.3 mg/dl Sodium L 131 136-145 mmol/L Potassium 4.5 3.5-5.1 mmol/L Chloride L 94 98-107 mmol/L CO2 24 22-29 mmol/L BUN/Creatinine Ratio 12 7-25 Ratio Calcium 9.3 8.4-10.2 mg/dl Protein Total 7.1 6.4-8.3 g/dl Albumin 3.7 3.5-5.0 g/dl A/G Ratio L 1.1 1.2-2.2 Ratio AST H 52 5-34 U/L ALT H 73 0-55 U/L ALP 115 40-150 U/L Bilirubin Total 0.7 0.2-1.2 mg/dl Osmolality 275 261-280 mOsm/kg Globulin 3.4 2.4-3.5 g/dl TSH 1.27 0.35-4.94 uIU/mL History of procedures Procedure Code Code Type Description Date Performed Performing Physician 58219 CPT-4 COMPLETE CBC W/AUTO DIFF WBC 07-08-2015 MEAGAN ALVARADO 97351 CPT-4 COMPREHEN METABOLIC PANEL 07-08-2015 MEAGAN ALVARADO 79947 CPT-4 ASSAY THYROID STIM HORMONE 07-08-2015 MEAGAN ALVARADO 79147 CPT-4 ROUTINE VENIPUNCTURE 07-08-2015 MEAGAN ALVARADO Functional status No functional or [...]
--- OUTSIDE RECORDS SUMMARY | 2016-12-21 08:23 | XMS REPORT ---
Author Author [facility] Medical Staff Organization [facility] Address [address] [facility] [place] [id number] Phone [phone] Care Team Providers Care Gaming Cashier Name Role Phone MEAGAN FOSTER PP [phone] Summary purpose CCDA Sent to [facility] Chief Complaint and Reason for [...] diagnostic tests and/or laboratory data RESULTS CBC :33:00 Result Normal Range Units WBC 7.24 4.60-10.20 x 103/uL RBC 4.06 4.04-6.13 x 106/uL Hemoglobin L 11.3 12.2-18.1 g/dl Hematocrit L 35.4 37.7-53.7 % MCV 87.2 80.0-97.0 FL MCH 27.8 27.0-31.2 pg MCHC 31.9 31.8-35.4 g/dl RDW 12.7 11.6-14.8 % Platelets 216 142-424 x 103/uL MPV 10.0 9.4-12.4 FL Manual Diff Not Indicated Neutrophil % 53.7 37-80 % Neutrophils 3.88 2.0-6.9 x 103/uL Lymphocyte % 39.2 10-50 % Lymphocytes 2.84 0.6-3.4 x 103/uL Monocyte % 5.2 0-12 % Monocytes 0.38 0.0-1.0 x 103/uL Eosinophil % 1.2 0-7 % Eosinophils 0.09 0-0.7 x 103/uL Basophil % 0.7 0-2 % Basophils 0.05 0.0-0.1 x 103/uL Urinalysis [id number]:33:00 Site Voided Urine Color Yellow Urine Appearance Clear Urine Glucose AB 3+ Urine Bilirubin Negative Urine Ketones Negative Urine Specific [place] L <=1.005 1.010-1.020 Result Amended on 2015-04-08 at 12:59:04. Previous status was FR. Urine PH L 5.0 5.5-7.5 Result Amended on 2015-04-08 at 12:59:04. Previous status was FR. Urine Protein Negative Urine Urobilinogen 0.2 0.2-1.0 Result Amended on 2015-04-08 at 12:59:04. Previous status was FR. Urine Nitrites Negative Urine Blood Negative Urine Leukocytes Negative Urine WBC's 3-5 Squamous Epi's 1+ Yeast Trace Serology Group [id number]:00 [place] Screen Negative Chemistry Group [id number]:33:00 Result Normal Range Units Glucose HC 567 70-99 mg/dl Result Amended on 2015-04-08 at 13:23:30. Previous status was FR. Result successfully called to MEAGAN ALVARADO on 04/08/2015 at 13:20 by FRANNY.CALLED TO GEORGE BUN 12 7-26 mg/dl Result Amended on 2015-04-08 at 13:23:30. Previous status was FR. Creatinine 1.1 0.6-1.3 mg/dl Result Amended on 2015-04-08 at 13:23:30. Previous status was FR. Sodium L 127 136-145 mmol/L Result Amended on 2015-04-08 at 13:23:31. Previous status was FR. Potassium 4.3 3.5-5.1 mmol/L Result Amended on 2015-04-08 at 13:23:31. Previous status was FR. Chloride L 90 98-107 mmol/L Result Amended on 2015-04-08 at 13:23:31. Previous status was FR. CO2 27 22-29 mmol/L Result Amended on 2015-04-08 at 13:23:31. Previous status was FR. BUN/Creatinine Ratio 11 7-25 Ratio Result Amended on 2015-04-08 at 13:23:31. Previous status was FR. Calcium 8.9 8.4-10.2 mg/dl Result Amended on 2015-04-08 at 13:23:31. Previous status was FR. Protein Total 6.7 6.4-8.3 g/dl Result Amended on 2015-04-08 at 13:23:31. Previous status was FR. Albumin L 3.2 3.5-5.0 g/dl Result Amended on 2015-04-08 at 13:23:31. Previous status was FR. A/G Ratio L 0.9 1.2-2.2 Ratio Result Amended on 2015-04-08 at 13:23:31. Previous status was FR. AST 29 5-34 U/L Result Amended on 2015-04-08 at 13:23:31. Previous status was FR. ALT 45 0-55 U/L Result Amended on 2015-04-08 at 13:23:31. Previous status was FR. ALP 105 40-150 U/L Result Amended on 2015-04-08 at 13:23:31. Previous status was FR. Bilirubin Total 0.7 0.2-1.2 mg/dl Result Amended on 2015-04-08 at 13:23:31. Previous status was FR. Osmolality 269 261-280 mOsm/kg Result Amended on 2015-04-08 at 13:23:31. Previous status was FR. Globulin 3.5 2.4-3.5 g/dl Result Amended on 2015-04-08 at 13:23:31. Previous status was FR. Urinalysis [id number]:33:00 Site Voided Urine Color Yellow Urine Appearance Clear Urine Glucose AB 3+ Urine Bilirubin Negative Urine Ketones Negative Urine Specific Liberty L <=1.005 1.010-1.020 Result Amended on 2015-04-08 at 12:59:04. Previous status was FR. Urine PH L 5.0 5.5-7.5 Result Amended on 2015-04-08 at 12:59:04. Previous status was FR. Urine Protein Negative Urine Urobilinogen 0.2 0.2-1.0 Result Amended on 2015-04-08 at 12:59:04. Previous status was FR. Urine Nitrites Negative Urine Blood Negative Urine Leukocytes Negative Urine WBC's 3-5 Squamous Epi's 1+ Yeast Trace Refractometer 1.006 Result Amended on 2015-04-08 at 12:59:04. Previous status was FR. History of procedures Procedure Code Code Type Description Date Performed Performing Physician 87369 CPT-4 IRRIG DRUG DELIVERY DEVICE 04-08-2015 MEAGAN ALVARADO 91312 CPT-4 COMPLETE CBC W/AUTO DIFF WBC 04-08-2015 MEAGAN ALVARADO 47933 CPT-4 COMPREHEN METABOLIC PANEL 04-08-2015 MEAGAN ALVARADO 89229 CPT-4 URINALYSIS AUTO W/SCOPE 04-08-2015 MEAGAN ALVARADO 88527 CPT-4 HETEROPHILE ANTIBODY SCREEN 04-08-2015 MEAGAN ALVARADO 08950 CPT-4 URINE CULTURE/COLONY COUNT 04-08-2015 MEAGAN ALVARADO J1642 CPT-4 INJ HEPARIN SODIUM PER 10 U 04-08-2015 MEAGAN ALVARADO 78308 CPT-4 URINALYSIS NONAUTO W/O SCOPE 04-08-2015 MEAGAN JENNY Functional status No functional or cognitive status observations are available for this visit. Vital signs Type Value Date Respirations 20 37-78-566551:56 Pulse 94 :56 O2 Saturation 93% :56 Systolic Blood Press 124mm/HG :56 Diastolic Blood Pres 77mm/HG :56 Temperature (Fahr) 98.3Degrees :56 Social history No Social History or smoking status observations were recorded for this visit. ( Unknown if ever smoked.) Treatment Plan No treatment plan text is available for this visit. Hospital discharge instructions No discharge instruction text is available for this visit.
--- OUTSIDE RECORDS SUMMARY | 2016-12-21 08:23 | XMS REPORT ---
Author Author MIRZA MARTINO Organization [employer] Address Unknown Phone Unavailable Care Team Providers Care Review Trainer Name Role Phone MIRZA MARTINO CP Unavailable Allergies No Known Allergies Problems Problem Type Condition Code Onset Dates Condition Status Problem Type 2 diabetes mellitus with diabetic autonomic (poly)neuropathy E11.43 Active Problem Primary insomnia F51.01 Active Problem Type 2 diabetes mellitus with foot ulcer E11.621 Active Problem Type 1 diabetes mellitus without complication E10.9 Active Assessment Type 1 diabetes mellitus without complication E10.9 Active Problem Type 2 diabetes mellitus with unspecified complications E11.8 Active Problem Drowsiness R40.0 Active Problem 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 Active Problem Screening breast examination Z12.39 Active Problem 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 Active Problem Recurrent major depressive disorder, remission status unspecified F33.9 Active Problem Nodule of chest wall R22.2 Active Problem Gastroparesis K31.84 Active Assessment Drowsiness R40.0 Active Problem Anxiety F41.9 Active Problem Chronic pain syndrome G89.4 Active Problem Acquired hypothyroidism E03.9 Active Problem Epigastric pain R10.13 Active Problem Essential hypertension I10 Active Problem 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
--- OUTSIDE RECORDS SUMMARY | 2016-12-21 08:23 | XMS REPORT ---
Author Author MIRZA MARTINO Organization [employer] Address Unknown Phone Unavailable Care Team Providers Care Strategic Client Executive Name Role Phone MIRZA MARTINO CP Unavailable Allergies No Known Allergies Problems Problem Type Condition Code Onset Dates Condition Status Problem Screening breast examination Z12.39 Active Problem Recurrent major depressive disorder, remission status unspecified F33.9 Active Problem 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 Active Problem Type 1 diabetes mellitus without complication E10.9 Active Problem Nodule of chest wall R22.2 Active Problem Thrush B37.0 Active Problem Anxiety F41.9 Active Problem Drowsiness R40.0 Active Problem Type 2 diabetes mellitus with unspecified complications E11.8 Active Problem [facility] 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 Active Problem Bronchitis J40 Active Problem Tobacco abuse Z72.0 Active Problem 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 Active Problem Chronic pain syndrome G89.4 Active Problem Gastroparesis K31.84 Active Problem Epigastric pain R10.13 Active Problem Congestive heart failure, unspecified congestive heart failure chronicity, unspecified congestive heart failure type I50.9 Active Problem Type 2 diabetes mellitus with diabetic autonomic (poly)neuropathy E11.43 Active Problem Acquired hypothyroidism E03.9 Active Problem Type 2 diabetes mellitus with foot ulcer E11.621 Active Problem Essential hypertension I10 Active Problem Primary insomnia F51.01 Active Medications No Known Medications Results No Known Results Summary Purpose [employer] Submission
--- OUTSIDE RECORDS SUMMARY | 2016-12-21 08:23 | XMS REPORT ---
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
--- OUTSIDE RECORDS SUMMARY | 2016-12-21 08:23 | XMS REPORT ---
Author Author [facility] Medical Staff Organization [facility] Address [address] [place], [place] [address] Phone [phone] Care Team Providers Care Field Worker Name Role Phone MEAGAN FOSTER PP [phone] Summary purpose TRANSITION OF CARE AUTO GENERATION [...]
--- OUTSIDE RECORDS SUMMARY | 2016-12-21 08:23 | XMS REPORT ---
Author Author [facility] Medical Staff Organization [facility] Address [address] [place], [place] [address] Phone [phone] Care Team Providers Care Cocoa Roaster Name Role Phone MEAGAN FOSTER PP [phone] Summary purpose TRANSITION OF CARE AUTO GENERATION [...]
--- OUTSIDE RECORDS SUMMARY | 2016-12-21 08:23 | XMS REPORT ---
Author Author MIRZA MARTINO Organization [employer] Address Unknown Phone Unavailable Care Team Providers Care Hand Kiss Setter Name Role Phone MIRZA MARTINO CP Unavailable [...] mellitus with unspecified complications E11.8 Active Problem [facility] 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 Active Problem [...] Active Problem Primary insomnia F51.01 Active Medications Medication Code System Code Instructions Start Date End Date Status Dosage Alprazolam [facility] [address]-96 1 MG Orally Three times a day must last 28 days 1 tablet Results No Known Results Summary Purpose [employer] Submission
--- OUTSIDE RECORDS SUMMARY | 2016-12-21 08:24 | XMS REPORT | Clinical Summary ---
Author Author Admin, BRANDON Organization [facility] Address Unknown Phone Unavailable Allergies, [...] Coronary atherosclerosis of unspecified type of vessel, tuscarora or graft DIABETES, TYPE 2 250.00 Active [...] Take one by mouth daily PANTOPRAZOLE SODIUM 51153637393 Active Saumya Franciscoglari SHOE SHANKER Active OMEPRAZOLE 40 MG CPDR Take one by mouth daily OMEPRAZOLE 47518670275 No Longer Active Saumya Singhglari SHOE SHANKER Active LEVEMIR 100 UNIT/ML SOLN 40u twice daily at 10am, 10pm INSULIN DETEMIR 79415518296 Active Saumya Singhglari SHOE SHANKER Active LANTUS 100 UNIT/ML SOLN 40 units subq at bedtime INSULIN GLARGINE 16314703982 No Longer Active Saumya Singhglari SHOE SHANKER Active HUMALOG 100 UNIT/ML SOLN 30 units subq before each meal, add 4u/50 for blood sugars above 150. INSULIN LISPRO (HUMAN) 39229636303 Active Saumya Cora GURROLA Active LASIX 20 MG TABS Take 1 tablet daily FUROSEMIDE 57604359325 Active Bismark Landa MD Active HYZAAR 100-25 MG TABS Take 1 tablet daily LOSARTAN POTASSIUM- HCTZ 50144321728 Active Bismark Landa MD Active SYNTHROID 25 MCG TABS Take 1 tablet daily LEVOTHYROXINE SODIUM 60771831173 Active Bismark Landa MD Active ZANTAC 150 MG TABS Take 1 tablet BID RANITIDINE HCL 14297278158 Active Bismark Landa MD Active PERCOCET 10-325 MG TABS Take 1 tablet every 8 hours as needed for pain. 11/26 OXYCODONE-ACETAMINOPHEN 50334892015 Active Bismark Landa MD Active MORPHINE SULFATE ER 15 MG CR-TABS Take 1 tablet BID MORPHINE SULFATE 44409616794 Active Bismark Landa MD Active CELEXA 20 MG TABS Take 1 tablet BID CITALOPRAM HYDROBROMIDE 36651564086 Active Bismark Landa MD Active GABAPENTIN 600 MG TABS 1 by mouth QID GABAPENTIN 09221849677 Active Bismark Landa MD Active CLARITHROMYCIN 500 MG TABS by mouth twice a day CLARITHROMYCIN 80513336557 No Longer Active Bismark Landa MD Active TRAZODONE HCL 100 MG TABS 1/2- 1 at bedtime TRAZODONE HCL 53090095274 No Longer Active Bismark Landa MD Active AMOXICILLIN 500 MG TABS 2 by mouth daily AMOXICILLIN 48411302410 No Longer Active Bismark Landa MD Active HYDROCODONE-ACETAMINOPHEN 7.5-325 MG TABS 1 by mouth every 6 hours as needed HYDROCODONE-ACETAMINOPHEN 35106538406 No Longer Active Bismark Landa MD Active HYDROCHLOROTHIAZIDE 25 MG TABS Take one by mouth daily HYDROCHLOROTHIAZIDE 29979738258 No Longer Active Bismark Landa MD Active VERAPAMIL HCL CR 240 MG CR-TABS Take one by mouth daily VERAPAMIL HCL 91574895928 No Longer Active Bismark Landa MD Active ALPRAZOLAM 0.5 MG TABS Take 1 tablet TID ALPRAZOLAM 83242702952 Active Bismark Landa MD Active HYDROCODONE-ACETAMINOPHEN 10-325 MG TABS take at bedtime HYDROCODONE-ACETAMINOPHEN 26254749409 No Longer Active Bismark Landa MD Active SUCRALFATE 1 GM TABS Take one by mouth four times daily, morning, noon, early evening and bedtime. SUCRALFATE 01924169809 No Longer Active Bismark Landa MD Active KLOR-CON 10 10 MEQ CR-TABS Take one by mouth daily POTASSIUM CHLORIDE 64553755564 No Longer Active Bismark Landa MD Active METOLAZONE 5 MG TABS Take one by mouth daily METOLAZONE 87240285778 No Longer Active Bismark Landa MD Active TEMAZEPAM 30 MG CAPS Take 1 tablet at bed time. TEMAZEPAM 19057481825 Active Bismark Landa MD Active CYCLOBENZAPRINE HCL 10 MG TABS Take one by mouth daily CYCLOBENZAPRINE HCL 01065354814 Active Arnold Ibarra MD Active ATENOLOL 50 MG TABS 1 1/2 daily ATENOLOL 78675101966 Active Arnold bIarra MD Active PROMETHAZINE HCL 25 MG TABS 1 tab by mouth every 6 hours as needed for nausea/ vomiting PROMETHAZINE HCL 78128215051 Active Arnold Ibarra MD Active METOLAZONE 5 MG TABS Take one by mouth daily METOLAZONE 5 MG TABS 105849 METOLAZONE Inactive KLOR-CON 10 10 MEQ CR-TABS Take one by mouth daily KLOR-CON 10 10 MEQ CR-TABS POTASSIUM CHLORIDE Inactive SUCRALFATE 1 GM TABS Take one by mouth four times daily, morning, noon, early evening and bedtime. SUCRALFATE 1 GM TABS 323208 SUCRALFATE Inactive HYDROCODONE-ACETAMINOPHEN 10-325 MG TABS take at bedtime HYDROCODONE-ACETAMINOPHEN 10-325 MG TABS 106929 HYDROCODONE-ACETAMINOPHEN Inactive VERAPAMIL HCL CR 240 MG CR-TABS Take one by mouth daily VERAPAMIL HCL CR 240 MG CR-TABS VERAPAMIL HCL Inactive HYDROCHLOROTHIAZIDE 25 MG TABS Take one by mouth daily HYDROCHLOROTHIAZIDE 25 MG TABS 215384 HYDROCHLOROTHIAZIDE Inactive HYDROCODONE-ACETAMINOPHEN 7.5-325 MG TABS 1 by mouth every 6 hours as needed HYDROCODONE-ACETAMINOPHEN 7.5-325 MG TABS 822733 HYDROCODONE-ACETAMINOPHEN Inactive AMOXICILLIN 500 MG TABS 2 by mouth daily AMOXICILLIN 500 MG TABS 197526 AMOXICILLIN Inactive TRAZODONE HCL 100 MG TABS 1/2- 1 at bedtime TRAZODONE HCL 100 MG TABS 232764 TRAZODONE HCL Inactive CLARITHROMYCIN 500 MG TABS by mouth twice a day CLARITHROMYCIN 500 MG TABS 120023 CLARITHROMYCIN Inactive LANTUS 100 UNIT/ML SOLN 40 units subq at bedtime LANTUS 100 UNIT/ML SOLN INSULIN GLARGINE Inactive OMEPRAZOLE 40 MG CPDR Take one by mouth daily OMEPRAZOLE 40 MG CPDR 963792 OMEPRAZOLE Inactive Vital Signs Date Name Value [...] Yes Encounters Code Encounter Date Provider Facility CPT-88368 Level 5 Est. Patient 13:05:17 CDT Saumya GURROLA [facility] CPT-43765 Level 4 Est. Patient 14:58:44 CDT Bismark Landa MD [facility] CPT-60166 Level 4 New Patient 15:17:54 CDT Priscila Valera MD [facility] CPT-62365 Level 2 Est. Patient 16:51:13 CDT Arnold Ibarra MD [facility] Procedures Code Procedure Name Date Entry Date Standard Description CPT-07545 Cystoscopy 15:17:54 CDT
--- OUTSIDE RECORDS SUMMARY | 2016-12-21 08:24 | XMS REPORT | Clinical Summary ---
Author Author Admin, BRANDON Organization [facility] Address Unknown Phone Unavailable Allergies, Adverse Reactions, [...] Coronary atherosclerosis of unspecified type of vessel, elim ira or graft DIABETES, TYPE 2 250.00 Active [...] mellitus, type II, uncontrolled 250.02 Active Saumya GURROLA Diabetes mellitus without mention of complication, type II or unspecified type, uncontrolled Medication List Medication Instructions Start Date Stop Date Generic Name NDC Status Provider Patient Instruction NITROSTAT 0.4 MG SL SUBL may repeat every 5 min x 3 for cx pain NITROGLYCERIN 09070427262 Active Ame Pabon LPN Active CAMBIA 50 MG ORAL PACK as directed every pm DICLOFENAC POTASSIUM 04205581497 Active Ame Pabon LPN Active LEXAPRO 20 MG ORAL TABS Take one by mouth daily ESCITALOPRAM OXALATE 27044753211 Active Ame Pabon LPN Active PROAIR HFA 108 (90 BASE) MCG/ACT INH AERS 2 puffs every 6hrs prn ALBUTEROL SULFATE 99452732894 Active Ame Pabon LPN Active LEVOTHYROXINE SODIUM 75 MCG ORAL TABS Take one by mouth daily LEVOTHYROXINE SODIUM 19060111139 Active Ame Pabon LPN Active CHANTIX STARTING MONTH ODESSA TABS as directed VARENICLINE TARTRATE TABS 57119630587 Active Ame Pabon LPN Active MOVANTIK 25 MG ORAL TABS 1 tab prn as directed NALOXEGOL OXALATE 61842800401 Active Ame Pabon LPN Active METFORMIN HCL ER 500 MG ORAL [id number] by mouth twice a day METFORMIN HCL 53122475305 Active Ame Pabon LPN Active SEROQUEL XR 50 MG ORAL [id number] 2 tabs every hs QUETIAPINE FUMARATE 96332224232 Active Ame Pabon LPN Active HUMULIN R U-500 (CONCENTRATED) 500 UNIT/ML SC SOLN 30u sq once daily INSULIN REGULAR HUMAN 02381205657 Active Ame Pabon LPN Active NYSTATIN 092255 UNIT/GM EXT POWD as directed prn NYSTATIN 64595990604 Active Ame Pabon LPN Active PANTOPRAZOLE SODIUM 40 MG SOLR Take one by mouth daily PANTOPRAZOLE SODIUM 21089288907 No Longer Active Ame Pabon LPN Active SYNTHROID 25 MCG TABS Take 1 tablet daily LEVOTHYROXINE SODIUM 56981018481 No Longer Active Ame Pabon LPN Active ALPRAZOLAM 1 MG ORAL TABS 1 tab every 6 hrs prn ALPRAZOLAM 99234034871 Active Ame Pabon LPN Active HUMALOG KWIKPEN 200 UNIT/ML SC SOPN 30u one time daily INSULIN LISPRO (HUMAN) 00330153639 Active Ame Cm DUNAWAYN Active CELEXA 20 MG TABS Take 1 tablet BID CITALOPRAM HYDROBROMIDE 28033481030 No Longer Active Ame Pabon LPN Active OMEPRAZOLE 40 MG CPDR Take one by mouth daily OMEPRAZOLE 25794508854 No Longer Active Malori Ziglari CONTACT AGENT Active LEVEMIR 100 UNIT/ML SOLN 40u twice daily at 10am, 10pm INSULIN DETEMIR 51752824297 Active Maliheh Ziglari CONTACT AGENT Active LANTUS 100 UNIT/ML SOLN 40 units subq at bedtime INSULIN GLARGINE 93366410028 No Longer Active Maliheh Ziglari CONTACT AGENT Active LASIX 20 MG TABS Take 1 tablet daily FUROSEMIDE 97418729039 Active Bismark Landa MD Active HYZAAR 100-25 MG TABS Take 1 tablet daily LOSARTAN POTASSIUM- HCTZ 20101027353 Active Bismark Landa MD Active ZANTAC 150 MG TABS Take 1 tablet BID RANITIDINE HCL 83486405753 Active Bismark Landa MD Active PERCOCET 10-325 MG TABS Take 1 tablet every 8 hours as needed for pain. 11/26 OXYCODONE-ACETAMINOPHEN 65829080110 Active Bismark Landa MD Active MORPHINE SULFATE ER 15 MG CR-TABS Take 1 tablet BID MORPHINE SULFATE 72742188147 Active Bismark Landa MD Active GABAPENTIN 600 MG TABS 1 by mouth QID GABAPENTIN 03210292335 Active Bismark Landa MD Active CLARITHROMYCIN 500 MG TABS by mouth twice a day CLARITHROMYCIN 92276145999 No Longer Active Bismark Landa MD Active TRAZODONE HCL 100 MG TABS 1/2- 1 at bedtime TRAZODONE HCL 82647782025 No Longer Active Bismark Landa MD Active AMOXICILLIN 500 MG TABS 2 by mouth daily AMOXICILLIN 07467476062 No Longer Active Bismark Landa MD Active HYDROCODONE-ACETAMINOPHEN 7.5-325 MG TABS 1 by mouth every 6 hours as needed HYDROCODONE-ACETAMINOPHEN 49315975563 No Longer Active Bismark Landa MD Active HYDROCHLOROTHIAZIDE 25 MG TABS Take one by mouth daily HYDROCHLOROTHIAZIDE 49836104018 No Longer Active Bismark Landa MD Active VERAPAMIL HCL CR 240 MG CR-TABS Take one by mouth daily VERAPAMIL HCL 64443213187 No Longer Active Bismark Landa MD Active HYDROCODONE-ACETAMINOPHEN 10-325 MG TABS take at bedtime HYDROCODONE-ACETAMINOPHEN 06664087374 No Longer Active Bismark Landa MD Active SUCRALFATE 1 GM TABS Take one by mouth four times daily, morning, noon, early evening and bedtime. SUCRALFATE 66647124955 No Longer Active Bismark Landa MD Active KLOR-CON 10 10 MEQ CR-TABS Take one by mouth daily POTASSIUM CHLORIDE 25693938231 No Longer Active Bismark Landa MD Active METOLAZONE 5 MG TABS Take one by mouth daily METOLAZONE 68720266369 No Longer Active Bismark Landa MD Active TEMAZEPAM 30 MG CAPS Take 1 tablet at bed time. TEMAZEPAM 61818067089 Active Bismark Landa MD Active CYCLOBENZAPRINE HCL 10 MG TABS Take one by mouth daily CYCLOBENZAPRINE HCL 00361425345 Active Arnold Ibarra MD Active ATENOLOL 50 MG TABS 1 1/2 daily ATENOLOL 99546074968 Active Arnold Ibarra MD Active PROMETHAZINE HCL 25 MG TABS 1 tab by mouth every 6 hours as needed for nausea/ vomiting PROMETHAZINE HCL 03977132796 Active Arnold Ibarra MD Active METOLAZONE 5 MG TABS Take one by mouth daily METOLAZONE 5 MG TABS 352808 METOLAZONE Inactive KLOR-CON 10 10 MEQ CR-TABS Take one by mouth daily KLOR-CON 10 10 MEQ CR-TABS POTASSIUM CHLORIDE Inactive SUCRALFATE 1 GM TABS Take one by mouth four times daily, morning, noon, early evening and bedtime. SUCRALFATE 1 GM TABS 125124 SUCRALFATE Inactive HYDROCODONE-ACETAMINOPHEN 10-325 MG TABS take at bedtime HYDROCODONE-ACETAMINOPHEN 10-325 MG TABS 316580 HYDROCODONE-ACETAMINOPHEN Inactive VERAPAMIL HCL CR 240 MG CR-TABS Take one by mouth daily VERAPAMIL HCL CR 240 MG CR-TABS VERAPAMIL HCL Inactive HYDROCHLOROTHIAZIDE 25 MG TABS Take one by mouth daily HYDROCHLOROTHIAZIDE 25 MG TABS 070106 HYDROCHLOROTHIAZIDE Inactive HYDROCODONE-ACETAMINOPHEN 7.5-325 MG TABS 1 by mouth every 6 hours as needed HYDROCODONE-ACETAMINOPHEN 7.5-325 MG TABS 489646 HYDROCODONE-ACETAMINOPHEN Inactive AMOXICILLIN 500 MG TABS 2 by mouth daily AMOXICILLIN 500 MG TABS 671309 AMOXICILLIN Inactive TRAZODONE HCL 100 MG TABS 1/2- 1 at bedtime TRAZODONE HCL 100 MG TABS 741215 TRAZODONE HCL Inactive CLARITHROMYCIN 500 MG TABS by mouth twice a day CLARITHROMYCIN 500 MG TABS 872589 CLARITHROMYCIN Inactive LANTUS 100 UNIT/ML SOLN 40 units subq at bedtime LANTUS 100 UNIT/ML SOLN INSULIN GLARGINE Inactive OMEPRAZOLE 40 MG CPDR Take one by mouth daily OMEPRAZOLE 40 MG CPDR 969209 OMEPRAZOLE Inactive CELEXA 20 MG TABS Take 1 tablet BID CELEXA 20 MG TABS 616889 CITALOPRAM HYDROBROMIDE Inactive SYNTHROID 25 MCG TABS Take 1 tablet daily SYNTHROID 25 MCG TABS 535711 LEVOTHYROXINE SODIUM Inactive PANTOPRAZOLE SODIUM 40 MG SOLR Take one by mouth daily PANTOPRAZOLE SODIUM 40 MG SOLR PANTOPRAZOLE SODIUM Inactive Diagnostic Results Date Name Value Unit Range Description Chart Maintenance: outside lab added to flowsheet - Chemistry blood glucose 363 mg/dL creatinine, serum 0.8 mg/dL hemoglobin A1C, blood, as % of total hemoglobin 11.8 % blood glucose 341 mg/dL creatinine, serum 0.9 mg/dL thyroid stimulating hormone, serum 1.25 u[iU]/mL Encounters Code Encounter Date Provider Facility CPT-70240 Level 5 Est. Patient 13:05:17 CDT Saumya GURROLA [facility] CPT-00177 Level 4 Est. Patient 14:58:44 CDT Bismark Landa MD [facility] CPT-77743 Level 4 New Patient 15:17:54 CDT Priscila Valera MD [facility] CPT-57681 Level 2 Est. Patient 16:51:13 CDT Arnold Ibarra MD [facility] Procedures Code Procedure Name Date Entry Date Standard Description CPT-45555 Cystoscopy 15:17:54 CDT
--- OUTSIDE RECORDS SUMMARY | 2016-12-21 08:25 | XMS REPORT ---
Author Author [facility] Medical Staff Organization [facility] Address [address] [place], [place] [address] Phone [phone] Care Team Providers Care Case Maker Name Role Phone MEAGAN FOSTER PP [phone] Summary purpose CCDA Sent to [facility] Chief Complaint and Reason for Visit Admit Diagnosis 1 DYSURIA Problem list No authorized problems tracked for [...] Relevant diagnostic tests and/or laboratory data RESULTS Urinalysis 31-20-592826:24:00 Result Normal Range Units Site Unknown Urine Color Yellow Yellow Urine Appearance Clear Clear Urine Glucose AB 2+ Negative Urine Bilirubin Negative Negative Urine Ketones Negative Negative Urine Specific [place] 1.010 1.010-1.020 Urine PH 5.5 5.5-7.5 Urine Protein Negative Negative Urine Urobilinogen 0.2 0.2-1.0 Urine Nitrites Negative Negative Urine Blood Negative Negative Urine Leukocytes Negative Negative Urine WBC's 3-5 Urine RBC's None Seen Urine Bacteria Trace Squamous Epi's 1+ Urinalysis :24:00 Result Normal Range Units Site Unknown Urine Color Yellow Yellow Urine Appearance Clear Clear Urine Glucose AB 2+ Negative Urine Bilirubin Negative Negative Urine Ketones Negative Negative Urine Specific [place] 1.010 1.010-1.020 Urine PH 5.5 5.5-7.5 Urine Protein Negative Negative Urine Urobilinogen 0.2 0.2-1.0 Urine Nitrites Negative Negative Urine Blood Negative Negative Urine Leukocytes Negative Negative Urine WBC's 3-5 Urine RBC's None Seen Urine Bacteria Trace Squamous Epi's 1+ History of procedures Procedure Code Code Type Description Date Performed Performing Physician 40997 CPT-4 URINALYSIS AUTO W/SCOPE 01-05-2015 MEAGAN ALVARADO Functional status No functional or [...]
--- OUTSIDE RECORDS SUMMARY | 2016-12-21 08:25 | XMS REPORT ---
Author Author MIRZA MARTINO [facility] Address [address] [place] [address] Care Team Providers Care Clinical Staff Anesthesiologist Name Role Phone MIRZA MARTINO Unavailable PROBLEMS Type Condition ICD9-CM Code [id number] Code Onset Dates Condition Status SNOMED Code Problem Acquired hypothyroidism E03.9 Active 164198908 Problem Congestive heart failure, unspecified congestive heart failure chronicity, unspecified congestive heart failure type I50.9 Active 69814632 Problem Essential hypertension I10 Active 63136585 Problem Recurrent major depressive disorder, remission status unspecified F33.9 Active 30237866 Problem 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 Active 74434126 Problem Type 2 diabetes mellitus with foot ulcer E11.621 Active 5775163890347 Problem Type 2 diabetes mellitus with diabetic autonomic (poly)neuropathy E11.43 Active 445960558 Problem Screening breast examination Z12.39 Active 844764712 Problem Primary insomnia F51.01 Active 0765655 Problem Gastroparesis K31.84 Active 096614306 Problem Epigastric pain R10.13 Active 60228178 Problem Anxiety F41.9 Active 36328781 Problem 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
--- OUTSIDE RECORDS SUMMARY | 2016-12-21 08:25 | XMS REPORT ---
Author Author MIRZA MARTINO [facility] Address [address] [place] [address] Care Team Providers Care [place] Name Role Phone MIRZA MARTINO Unavailable PROBLEMS Type Condition ICD9-CM Code [id number] Code Onset Dates Condition Status SNOMED Code Assessment Weakness R53.1 May, Active 01815278 Problem Anxiety F41.9 Active 51714880 Problem Nodule of chest wall R22.2 Active 008731396 Problem senior care 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 Active 684624795 Problem Gastroparesis K31.84 Active 166183116 Problem Type 2 diabetes mellitus with unspecified complications E11.8 Active 98469385 Problem Epigastric pain R10.13 Active 77546728 Problem Tobacco abuse Z72.0 Active 358116512 Problem Thrush B37.0 Active 42803768 Problem Bronchitis J40 Active 67444614 Problem Vaginal bleeding N93.9 Active 884687468 Problem Weakness R53.1 Active 95309046 Problem Acquired hypothyroidism E03.9 Active 047708107 Problem Chronic pain syndrome G89.4 Active 940449724 Problem 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 Active 565882784 Problem Drowsiness R40.0 Active 993852946 Problem Type 1 diabetes mellitus without complication E10.9 Active 041854895 Problem Anxiety, generalized F41.1 Active 68353544 Problem Severe episode of recurrent major depressive disorder, without 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 Active 83947314 Problem Type 2 diabetes mellitus with diabetic autonomic (poly)neuropathy E11.43 Active 844169098 Problem Type 2 diabetes mellitus with foot ulcer E11.621 Active 9490245337570 Problem Essential hypertension I10 Active 02388385 Problem Congestive heart failure, unspecified congestive heart failure chronicity, unspecified congestive heart failure type I50.9 Active 56158204 Problem 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
--- OUTSIDE RECORDS SUMMARY | 2016-12-21 08:25 | XMS REPORT ---
Author Author [facility] Medical Staff Organization [facility] Address [address] [place], [place] [address] Phone [phone] Care Team Providers Care Director Script Name Role Phone MEAGAN FOSTER PP [phone] Summary purpose CCDA Sent to [facility] Chief Complaint and Reason for Visit Admit Diagnosis 1 NAUSEA WITH VOMITING Problem list No authorized problems tracked for [...] diagnostic tests and/or laboratory data RESULTS Urinalysis 36-11-614180:20:00 Result Normal Range Units Site Voided Result Amended on 2014-12-30 at 16:07:13. Previous status was AL. Urine Color Yellow Yellow Result Amended on 2014-12-30 at 16:07:12. Previous status was AL. Urine Appearance Clear Clear Result Amended on 2014-12-30 at 16:07:12. Previous status was AL. Urine Glucose AB 3+ Negative Result Amended on 2014-12-30 at 16:07:12. Previous status was AL. Urine Bilirubin Negative Negative Result Amended on 2014-12-30 at 16:07:13. Previous status was AL. Urine Ketones Negative Negative Result Amended on 2014-12-30 at 16:07:13. Previous status was AL. Urine Specific [place] L <=1.005 1.010-1.020 Result Amended on 2014-12-30 at 16:07:13. Previous status was AL. Urine PH L 5.0 5.5-7.5 Result Amended on 2014-12-30 at 16:07:13. Previous status was AL. Urine Protein Negative Negative Result Amended on 2014-12-30 at 16:07:13. Previous status was AL. Urine Urobilinogen 0.2 0.2-1.0 Result Amended on 2014-12-30 at 16:07:13. Previous status was AL. Urine Nitrites Negative Negative Result Amended on 2014-12-30 at 16:07:13. Previous status was AL. Urine Blood Negative Negative Result Amended on 2014-12-30 at 16:07:13. Previous status was AL. Urine Leukocytes Negative Negative Result Amended on 2014-12-30 at 16:07:13. Previous status was AL. Urine WBC's 0-2 Result Amended on 2014-12-30 at 16:07:13. Previous status was AL. Urine RBC's 0-2 Result Amended on 2014-12-30 at 16:07:13. Previous status was AL. Urinalysis 31-35-699330:20:00 Result Normal Range Units Site Voided Result Amended on 2014-12-30 at 16:07:13. Previous status was AL. Urine Color Yellow Yellow Result Amended on 2014-12-30 at 16:07:12. Previous status was AL. Urine Appearance Clear Clear Result Amended on 2014-12-30 at 16:07:12. Previous status was AL. Urine Glucose AB 3+ Negative Result Amended on 2014-12-30 at 16:07:12. Previous status was AL. Urine Bilirubin Negative Negative Result Amended on 2014-12-30 at 16:07:13. Previous status was AL. Urine Ketones Negative Negative Result Amended on 2014-12-30 at 16:07:13. Previous status was AL. Urine Specific [place] L <=1.005 1.010-1.020 Result Amended on 2014-12-30 at 16:07:13. Previous status was AL. Urine PH L 5.0 5.5-7.5 Result Amended on 2014-12-30 at 16:07:13. Previous status was AL. Urine Protein Negative Negative Result Amended on 2014-12-30 at 16:07:13. Previous status was AL. Urine Urobilinogen 0.2 0.2-1.0 Result Amended on 2014-12-30 at 16:07:13. Previous status was AL. Urine Nitrites Negative Negative Result Amended on 2014-12-30 at 16:07:13. Previous status was AL. Urine Blood Negative Negative Result Amended on 2014-12-30 at 16:07:13. Previous status was AL. Urine Leukocytes Negative Negative Result Amended on 2014-12-30 at 16:07:13. Previous status was AL. Urine WBC's 0-2 Result Amended on 2014-12-30 at 16:07:13. Previous status was AL. Urine RBC's 0-2 Result Amended on 2014-12-30 at 16:07:13. Previous status was AL. Refractometer 1.034 History of procedures Procedure Code Code Type Description Date Performed Performing Physician 52372 CPT-4 URINALYSIS NONAUTO W/O SCOPE 12-30-2014 MEAGAN ALVARADO 47194 CPT-4 CULTURE OTHR SPECIMN AEROBIC 12-30-2014 MEAGAN ALVARADO 54738 CPT-4 URINALYSIS AUTO W/SCOPE 12-30-2014 MEAGAN ALVARADO Functional status No functional or [...]
--- OUTSIDE RECORDS SUMMARY | 2016-12-21 08:25 | XMS REPORT ---
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 Active 50221388 Problem Anxiety F41.9 Active 53255955 Problem Recurrent major depressive disorder, remission status unspecified F33.9 Active 87836826 Problem Nodule of chest wall R22.2 Active 683445768 Problem senior living 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 Active 577519878 Problem Tobacco abuse Z72.0 Active 403542947 Problem Type 2 diabetes mellitus with unspecified complications E11.8 Active 11895389 Problem Anxiety, generalized F41.1 Active 33802239 Problem Severe episode of recurrent major depressive disorder, without 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 Active 30609881 Problem 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 Active 843203512 Problem Epigastric pain R10.13 Active 45991648 Problem Gastroparesis K31.84 Active 491682242 Problem Thrush B37.0 Active 32560062 Problem Bronchitis J40 Active 77562172 Problem Drowsiness R40.0 Active 625182400 Problem Type 1 diabetes mellitus without complication E10.9 Active 490689556 Problem Essential hypertension I10 Active 29843207 Problem Congestive heart failure, unspecified congestive heart failure chronicity, unspecified congestive heart failure type I50.9 Active 50080760 Problem Chronic pain syndrome G89.4 Active 082142513 Problem Acquired hypothyroidism E03.9 Active 073665709 Problem Primary insomnia F51.01 Active 2066186 Problem Screening breast examination Z12.39 Active 148143086 Problem Type 2 diabetes mellitus with diabetic autonomic (poly)neuropathy E11.43 Active 888140417 Problem Type 2 diabetes mellitus with foot ulcer E11.621 Active [id number] ALLERGIES Substance Reaction Event Type Date Status [...] MEDICATIONS Unknown Medications RESULTS No Results PROCEDURES Procedure Date Ordered Related Diagnosis Body Site Psych diagnostic evaluation, new patient May 23, 2016 IMMUNIZATIONS No Known Immunizations
--- OUTSIDE RECORDS SUMMARY | 2016-12-21 08:25 | XMS REPORT ---
Author Author [facility] Medical Staff Organization [facility] Address [address] [place], [place] [address] Phone [phone] Care Team Providers Care Director Of Intelligence Name Role Phone MEAGAN FOSTER PP [phone] Summary purpose CCDA Sent to [facility] Chief Complaint and Reason for Visit [...] diagnostic tests and/or laboratory data RESULTS CBC 69-15-626229:47:00 Result Normal Range Units WBC H 10.78 4.60-10.20 x 103/uL RBC 4.30 4.04-6.13 x 106/uL Hemoglobin 12.7 12.2-18.1 g/dl Hematocrit 38.9 37.7-53.7 % MCV 90.5 80.0-97.0 FL MCH 29.5 27.0-31.2 pg MCHC 32.6 31.8-35.4 g/dl RDW 13.2 11.6-14.8 % Platelets 282 142-424 x 103/uL Manual Diff Not Indicated MPV 10.5 9.4-12.4 FL Neutrophil % 53.0 37-80 % Neutrophils 5.70 2.0-6.9 x 103/uL Lymphocyte % 39.6 10-50 % Lymphocytes H 4.27 0.6-3.4 x 103/uL Monocyte % 4.5 0-12 % Monocytes 0.49 0.0-1.0 x 103/uL Eosinophil % 2.1 0-7 % Eosinophils 0.23 0-0.7 x 103/uL Basophil % 0.8 0-2 % Basophils 0.09 0.0-0.1 x 103/uL Chemistry Group :47:00 Result Normal Range Units Glucose H 303 65-110 mg/dl BUN 9 7-21 mg/dl Creatinine 0.7 0.7-1.5 mg/dl Sodium L 133 137-145 mmol/L Potassium 4.1 3.6-5.0 mmol/L Chloride L 94 98-107 mmol/L CO2 25 22-30 mmol/L BUN/Creatinine Ratio 12.5 7-25 Ratio Calcium 9.6 8.4-10.2 mg/dl Protein Total 7.9 6.3-8.2 g/dl Albumin 4.2 3.5-5.0 g/dl A/G Ratio L 1.1 1.2-2.2 Ratio AST H 69 15-46 U/L ALT H 58 7-56 U/L ALP 96 38-126 U/L Bilirubin Total 1.0 0.2-1.3 mg/dl Osmolality 268 261-280 mOsm/kg Globulin H 3.7 2.4-3.5 g/dL Reference Lab Group :47:00 Result Normal Range Units Adenovirus Not Detected Not Detected Result Amended on 2014-07-10 at 11:35:22. Previous status was FR. Adeno2 Not Detected Not Detected Result Amended on 2014-07-10 at 11:35:23. Previous status was FR. Coronavirus 229E Not Detected Not Detected Result Amended on 2014-07-10 at 11:35:23. Previous status was FR. Coronavirus HKU1 Not Detected Not Detected Result Amended on 2014-07-10 at 11:35:23. Previous status was FR. Coronavirus NL63 Not Detected Not Detected Result Amended on 2014-07-10 at 11:35:23. Previous status was FR. Coronavirus OC43 Not Detected Not Detected Result Amended on 2014-07-10 at 11:35:23. Previous status was FR. Human Metapneumovir. Not Detected Not Detected Result Amended on 2014-07-10 at 11:35:23. Previous status was FR. Entero1 Not Detected Not Detected Result Amended on 2014-07-10 at 11:35:23. Previous status was FR. Entero2 Not Detected Not Detected Result Amended on 2014-07-10 at 11:35:23. Previous status was FR. Human Rhinovirus 1 Not Detected Not Detected Result Amended on 2014-07-10 at 11:35:24. Previous status was FR. Human Rhinovirus 2 Not Detected Not Detected Result Amended on 2014-07-10 at 11:35:24. Previous status was FR. Human Rhinovirus 3 Not Detected Not Detected Result Amended on 2014-07-10 at 11:35:24. Previous status was FR. Human Rhinovirus 4 Not Detected Not Detected Result Amended on 2014-07-10 at 11:35:24. Previous status was FR. HlzA-C2-6741 Not Detected Not Detected Result Amended on 2014-07-10 at 11:35:24. Previous status was FR. FluA-H1-ruth Not Detected Not Detected Result Amended on 2014-07-10 at 11:35:24. Previous status was FR. FluA-H3 Not Detected Not Detected Result Amended on 2014-07-10 at 11:35:24. Previous status was FR. FluA-pan1 Not Detected Not Detected Result Amended on 2014-07-10 at 11:35:25. Previous status was FR. FluA-pan2 Not Detected Not Detected Result Amended on 2014-07-10 at 11:35:25. Previous status was FR. Influenza B Not Detected Not Detected Result Amended on 2014-07-10 at 11:35:25. Previous status was FR. Parainfluenza Virus 1 Not Detected Not Detected Result Amended on 2014-07-10 at 11:35:25. Previous status was FR. Parainfluenza Virus 2 Not Detected Not Detected Result Amended on 2014-07-10 at 11:35:26. Previous status was FR. Parainfluenza Virus 3 Not Detected Not Detected Result Amended on 2014-07-10 at 11:35:26. Previous status was FR. Parainfluenza Virus 4 Not Detected Not Detected Result Amended on 2014-07-10 at 11:35:26. Previous status was FR. Respiratory Syncytial Vir Not Detected Not Detected Result Amended on 2014-07-10 at 11:35:26. Previous status was FR. Bordetella pertussis Not Detected Not Detected Result Amended on 2014-07-10 at 11:35:26. Previous status was FR. Chlamydophila pnemon Not Detected Not Detected Result Amended on 2014-07-10 at 11:35:26. Previous status was FR. Mycoplasma pneumoni Not Detected Not Detected Result Amended on 2014-07-10 at 11:35:26. Previous status was FR. Gram Positive Bacteria :47:00 Result Normal Range Units Entero1 Not Detected Not Detected Result Amended on 2014-07-10 at 11:35:23. Previous status was FR. History of procedures No procedures recorded for this patient visit. Functional status No functional or cognitive status observations are available for this visit. Vital signs Type Value Date Respirations 20 04-89-021824:46 Pulse 92 33-46-544211:46 O2 Saturation 98% 42-97-669196:46 Systolic Blood Press 153mm/HG 14-35-201826:46 Diastolic Blood Pres 87mm/HG 39-37-715462:46 Temperature (Fahr) 98.2Degrees 80-02-170539:50 Social history No Social History or smoking status observations were recorded for this visit. ( Unknown if ever smoked.) Treatment Plan Treatment Plan at Di follow up with Caty Patterson as planned, call or return if problems arise Hospital discharge instructions No discharge instruction text is available for this visit.
--- OUTSIDE RECORDS SUMMARY | 2016-12-21 08:25 | XMS REPORT ---
Author Author MIRZA MARTINO [facility] Address [address] [place] [address] Care Team Providers Care Furniture Servicer Name Role Phone MIRZA MARTINO Unavailable PROBLEMS Type Condition ICD9-CM Code RCR13-NN Code Onset Dates Condition Status SNOMED Code Problem Anxiety F41.9 Active 55567225 Problem Nodule of chest wall R22.2 Active 066323399 Problem correction 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 Active 514143132 Problem Gastroparesis K31.84 Active 315680111 Problem Type 2 diabetes mellitus with unspecified complications E11.8 Active 29431672 Problem Epigastric pain R10.13 Active 85494676 Problem Tobacco abuse Z72.0 Active 770402064 Problem Thrush B37.0 Active 61311039 Problem Bronchitis J40 Active 54481669 Problem Vaginal bleeding N93.9 Active 956009308 Problem Weakness R53.1 Active 78159559 Problem Acquired hypothyroidism E03.9 Active 325527183 Problem Chronic pain syndrome G89.4 Active 279719964 Problem 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 Active 743576112 Problem Drowsiness R40.0 Active 616871429 Problem Type 1 diabetes mellitus without complication E10.9 Active 324635497 Problem Anxiety, generalized F41.1 Active 26088384 Problem Severe episode of recurrent major depressive disorder, without 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 Active 43385916 Problem Type 2 diabetes mellitus with diabetic autonomic (poly)neuropathy E11.43 Active 979309505 Problem Type 2 diabetes mellitus with foot ulcer E11.621 Active 3473052541384 Problem Essential hypertension I10 Active 01158992 Problem Congestive heart failure, unspecified congestive heart failure chronicity, unspecified congestive heart failure type I50.9 Active 56938131 Problem 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
--- OUTSIDE RECORDS SUMMARY | 2016-12-21 08:26 | XMS REPORT ---
Author Author MIRZA MARTINO Organization [employer] Address Unknown Phone Unavailable Care Team Providers Care Radiagraph Operator Name Role Phone MIRZA MARTINO CP [...] Problem Screening breast examination Z12.39 Active Problem jail 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 Active Problem Recurrent major depressive disorder, remission status unspecified F33.9 Active Problem Nodule of chest wall R22.2 Active Problem Gastroparesis K31.84 Active Problem Anxiety F41.9 Active Problem Chronic [...]
--- OUTSIDE RECORDS SUMMARY | 2016-12-21 08:26 | XMS REPORT ---
Author [facility] [employer] [facility] Medical Staff Organization [facility] Address [address] [place], [place] [address] Phone [phone] Care Team Providers Care Bounty Hunter Name Role Phone MEAGAN FOSTER PP [phone] Summary purpose TRANSITION OF CARE AUTO GENERATION Chief Complaint and Reason for Visit Admit Diagnosis 1 SYNCOPE AND COLLAPSE Problem list No authorized problems tracked for [...] Relevant diagnostic tests and/or laboratory data RESULTS Routine Urinalysis 45-92-318116:50:00 Result Normal Range Units Color YELLOW Clarity Clear Specific [place] 1.005 pH 6.0 4.5-8.0 Glucose 1+ Bilirubin NEGATIVE Ketones NEGATIVE Protein NEGATIVE Urobilinogen 0.2 0-0.2 E.U./dL Nitrites NEGATIVE Blood NEGATIVE Leukocytes NEGATIVE WBCs 0-5 RBCs No RBC's Seen. Squamous Epithelial Few Bacteria Occasional Drug Screen In House 32-30-710668:50:00 Result Normal Range Units Amphetamine Negative Negative Barbiturates Negative Negative Benzodiazepines AB Positive Negative Cannabinoids Negative Negative *Triage TOXis a medical drug screen to be used only for assessment and treatment of patients. This drug screen cannot be used for employment or legal purposes. Cocaine Negative Negative Mamp/MDMA AB Positive Negative Methadone Negative Negative Opiates AB Positive Negative Phencyclidine Negative Negative Tricyclic Antidepressants AB Positive Negative Chemistry 61-37-407669:04:00 Result Normal Range Units Sodium 136 134-145 mEq/l Potassium L 3.1 3.5-5.1 mEq/l Chloride L 97 98-107 mEq/l CO2 H 32.4 22-28 mEq/l Glucose H 294 70-105 mg/dl BUN L 5 7-18 mg/dl Creatinine H 1.10 0.6-1.0 mg/dl Calcium 8.6 8.4-10.2 mg/dl TP - Total Protein 6.6 6.0-8.3 g/dl Albumin L 2.8 3.5-5 g/dl Bilirubin - Total 0.5 0.1-1.0 mg/dl AST H 47 10-42 IU/L ALT 32 12-65 IU/L ALP H 105 25-72 IU/L Osmolality 280.1 280-300 mOsm/L Albumin/Globulin Ratio 0.7 0-8 Anion GAP L 6.6 8-16 BUN/Creatinine Ratio L 4.5 10-20 BNP- Brain Natriuretic Peptide H 456 0-450 pg/ml Estimated GFR L 54 >=60 mL/min/1.7 Hematology 33-26-144957:04:00 Result Normal Range Units WBC 7.1 4.8-10.8 103/uL WBC 7.1 4.8-10.8 103/uL RBC L 3.7 4.2-5.4 106/uL HGB L 10.6 12.0-16.0 g/dl HCT L 33.3 36.9-47.0 % MCV 91.0 81-99 FL MCH 29.0 27-31 pg MCHC L 31.8 33-37 g/dl RDW 13.8 11.5-15.5 % PLT 203 130-400 103/uL MPV 9.4 7.3-10.4 FL Segs 62.0 40-70 % Bands 2.0 0-5 % Lymphs 22.0 20-40 % Eagle 2.0 0-10 % Eos 6.0 0-7 % Baso 1.0 0-2 % Atypical Lymphs 5.0 0-5 % Body Fluid 01-77-700130:50:00 Result Normal Range Units pH 6.0 4.5-8.0 Cardiac 85-89-529409:04:00 Result Normal Range Units CK H 411 26-192 IU/L CKMB H 6.9 0-3.6 ng/ml Patient samples may contain heterophilic antibodies that could react with immunoassays to give falsely elevated or depressed results. This Dimension assay has been designed to minimize interference from heterophilic antibodies. Nevertheless, complete elimination of this interference from all patient specimens cannot be guaranteed. A test result that is inconsistent with the clinical picture and patient history should be interpreted with caution. Troponin I < 0.04 0.0-0.4 ng/ml Patient samples may contain heterophilic antibodies that could react in immunoassays to give falsely elevated or depressed results. This Dimension assay has been designed to minimize interference from heterophilic antibodies. Nevertheless, complete elimination of this interference from all patient specimens cannot be guaranteed. A test result that is inconsistent with the clinical picture and patient history should be interpreted with caution. Thyroid Testing 92-28-967526:04:00 Result Normal Range Units TSH H 5.78 0.36-3.74 uIU/mL Free T4 1.22 0.76-1.46 ng/dl Radiology Results 58-80-557640:49:00 CT HEAD W/O CONT PACs Image DATE OF EXAM: 2013 [id number] HEAD WO CONTRAST : RADIOLOGY REPORT DATE OF SERVICE: 05/26/14 HISTORY: Acute onset of dizziness, headache, hypertension, history of breast cancer NONCONTRAST CT HEAD 1830 HOURS Axial scans were obtained at 5 mm intervals. No contrast was administered. The ventricles are normal in size. There is no mass or midline shift. There is no hemorrhage or infarction. There are no unusual intra or extra-axial fluid collections. The cerebellum and brain stem are normal. The bony calvarium is normal and intact. IMPRESSION: Normal CT head. If there is ongoing symptomatology, consider followup MRI of the brain. MD VIRY Bain/nh05/27/2014 08:31:00 / 05/27/2014 08:37:34 cc:Meagan Patterson APRN This document has been electronically Signed by: On: DATE OF EXAM: 2013 [id number] HEAD WO CONTRAST : RADIOLOGY REPORT DATE OF SERVICE: 05/26/14 HISTORY: Acute onset of dizziness, headache, hypertension, history of breast cancer NONCONTRAST CT HEAD 1830 HOURS Axial scans were obtained at 5 mm intervals. No contrast was administered. The ventricles are normal in size. There is no mass or midline shift. There is no hemorrhage or infarction. There are no unusual intra or extra-axial fluid collections. The cerebellum and brain stem are normal. The bony calvarium is normal and intact. IMPRESSION: Normal CT head. If there is ongoing symptomatology, consider followup MRI of the brain. MD VIRY Bain/danna05/27/2014 08:31:00 / 05/27/2014 08:37:34 cc:Meagan Patterson APRN This document has been electronically Signed by: ARUN NGUYEN On: 20131:49P Result Amended on 2014-05-27 at 13:49:56. Previous status was AK. Chest XRay - Port - 1 View PACs Image DATE OF EXAM: 2013 [id number] VIEW PORT : RADIOLOGY REPORT DATE OF SERVICE: 05/26/14 HISTORY: Lower extremity swelling, dizziness PORTABLE AP CHEST 1830 HOURS The lungs are clear. Heart size and pulmonary vessels are normal. There is no pleural fluid or pulmonary vascular congestion. Central venous catheter and port are in place with the tip of the catheter in the superior vena cava. The catheter is a new finding since 10/24/2011 with no other change identified. IMPRESSION: No acute abnormality. MD VIRY Bain/danna05/27/2014 08:32:00 / 05/27/2014 08:38:43 cc:Meagan Patterson APRN This document has been electronically Signed by: On: DATE OF EXAM: 2013 RAD [id number] 1 VIEW PORT : RADIOLOGY REPORT DATE OF SERVICE: 05/26/14 HISTORY: Lower extremity swelling, dizziness PORTABLE AP CHEST 1830 HOURS The lungs are clear. Heart size and pulmonary vessels are normal. There is no pleural fluid or pulmonary vascular congestion. Central venous catheter and port are in place with the tip of the catheter in the superior vena cava. The catheter is a new finding since 10/24/2011 with no other change identified. IMPRESSION: No acute abnormality. MD VIRY Bain/nh05/27/2014 08:32:00 / 05/27/2014 08:38:43 cc:Meagan Patterson APRN This document has been electronically Signed by: ARUN NGUYEN On: 20131:49P Result Amended on 2014-05-27 at 13:49:58. Previous status was AK. 05-34-304985:04:00 Result Normal Range Units MPV 9.4 7.3-10.4 FL History of procedures Procedure Code Code Type Description Date Performed Performing Physician 06795 CPT-4 ASSAY, BLOOD CARBON MONOXIDE 05-26-2014 ROYCE MARTINEZ 57316 CPT-4 BLOOD GASES W/O2 SATURATION 05-26-2014 ROYCE MARTINEZ 73546 CPT-4 BLOOD METHEMOGLOBIN ASSAY 05-26-2014 ROYCE MARTINEZ 89523 CPT-4 WITHDRAWAL OF ARTERIAL BLOOD 05-26-2014 ROYCE MARTINEZ 27216 CPT-4 URINALYSIS, AUTO W/SCOPE 05-26-2014 ROYCE MARTINEZ 30193 CPT-4 DRUG SCRN 1+ CLASS NONCHROMO 05-26-2014 ROYCE MARTINEZ 44827 CPT-4 ASSAY THYROID STIM HORMONE 05-26-2014 ROYCE MARTINEZ 45472 CPT-4 ASSAY OF FREE THYROXINE 05-26-2014 ROYCEKALANI MARTINEZ 01066 CPT-4 ASSAY OF TROPONIN, QUANT 05-26-2014 ROYCE MARTINEZ 16791 CPT-4 ASSAY OF CK (CPK) 05-26-2014 ROYCE MARTINEZ 06710 CPT-4 COMPREHEN METABOLIC PANEL 05-26-2014 ROYCE MARTINEZ 04046 CPT-4 CREATINE, MB FRACTION 05-26-2014 ROYCE MARTINEZ 27754 CPT-4 COMPLETE CBC, AUTOMATED 05-26-2014 ROYCE MARTINEZ 88118 CPT-4 ELECTROCARDIOGRAM, TRACING 05-26-2014 ROYCE MARTINEZ 29815 CPT-4 CHEST X-RAY 05-26-2014 ROYCE MARTINEZ 78298 CPT-4 CT HEAD/BRAIN W/O DYE 05-26-2014 ROYCE MARTINEZ 66984 CPT-4 DRAW BLOOD OFF VENOUS DEVICE 05-26-2014 ROYCE MARTINEZ 38145 CPT-4 NATRIURETIC PEPTIDE 05-26-2014 ROYCE MARTINEZ 49474 CPT-4 BL SMEAR W/DIFF WBC COUNT 05-26-2014 ROYCE MARTINEZ J7120 CPT-4 RINGERS LACTATE INFUSION 05-26-2014 ROYCE MARTINEZ 92716 CPT-4 EMERGENCY DEPT VISIT 05-26-2014 ROYCE MARTINEZ 61915 CPT-4 EMERGENCY DEPT VISIT 05-26-2014 ROYCE MARTINEZ Functional status No functional or cognitive status observations are available for this visit. Vital signs Type Value Date Respiration Rate 22breaths per minute :55 Pulse 93beats per minute :55 Oxygen Saturation 97% :55 BP Systolic 130mmHg :55 BP Diastolic 75mmHg 68-37-456976:55 Temperature 98.0F :55 Social history Type Value Smoking Status FORMER SMOKER Treatment Plan No treatment plan text is available for this visit. Hospital discharge instructions Dismissal Condition good Disposition on DC home DC Inst/Educ Give yes
--- OUTSIDE RECORDS SUMMARY | 2016-12-21 08:26 | XMS REPORT ---
Author Author [facility] Medical Staff Organization [facility] Address [address] [place], [place] [address] Phone [phone] Care Team Providers Care Press Set Up Person Name Role Phone MEAGAN FOSTER PP [phone] MEAGAN FOSTER PP [phone] Summary purpose CCDA Sent to [facility] Chief Complaint and Reason for Visit No authorized Reason for Visit (Admitting Diagnosis) is available for this visit. Problem list No authorized problems tracked for continuity of care are available for this visit. Encounters No authorized problems tracked for encounter diagnoses are available for this visit. Medications Discharge Medications Status Medication Directions Current ALPRAZolam (XANAX) 0.5 mg: TABLET 0.5 MG oral FOUR TIMES A DAY NEEDED for ANXIETY Current atenolol 25 mg tablet 25 miligram(s) oral ONE TIME A DAY Current atenolol 50 mg tablet 50 miligram(s) oral BEDTIME Current Flexeril 10 mg tablet 10 miligram(s) oral THREE TIMES A DAY Current gabapentin 600 mg tablet 600 miligram(s) oral FOUR TIMES A DAY Current Hyzaar 100 mg-25 mg tablet 1 tab(s) oral ONE TIME A DAY Current Lasix 20 mg tablet 20 miligram(s) oral ONE TIME A DAY Current Levemir Flexpen 100 unit/mL (3 mL) solution subcutaneous insulin pen 55 unit(s) subcutaneous subQ TWO TIMES A DAY Current levothyroxine 75 mcg tablet 75 microgram(s) oral ONE TIME A DAY Current Lexapro 20 mg tablet 20 miligram(s) oral ONE TIME A DAY Current MS Contin 15 mg tablet,extended release 15 miligram(s) oral TWO TIMES A DAY Current Nitrostat 0.4 mg sublingual tablet 1 tab(s) Sublingual SL NEEDED for CHEST PAIN every 15 min x 3 for chest pain Current Percocet 10 mg-325 mg tablet 1 tab(s) oral THREE TIMES A DAY Current promethazine (PHENERGAN) 25 mg: TABLET 50 MG oral THREE TIMES A DAY NEEDED for NAUSEA Current QUEtiapine (SEROQUEL) 100 mg: TABLET 100 MG oral BEDTIME Current Seroquel XR 50 mg tablet,extended release 100 miligram(s) oral BEDTIME Current temazepam 30 mg capsule 30 miligram(s) oral BEDTIME Current Ventolin HFA 90 mcg/actuation aerosol inhaler 1 puff(s) inhalation inhl NEEDED for SHORTNESS OF BREATH Current Xanax 1 mg tablet 1 miligram(s) oral FOUR TIMES A DAY Stopped Humalog 100 unit/mL Sub-Q 25 unit(s) subcutaneous WITH MEALS Stopped promethazine 25 mg tablet 25 miligram(s) oral THREE TIMES A DAY with meds Allergies, adverse reactions, alerts Allergen Category Ingredient [...] diagnostic tests and/or laboratory data RESULTS CBC [id number]:20:00 Result Normal Range Units WBC 7.81 4.60-10.20 x 103/uL RBC 4.51 4.04-6.13 x 106/uL Hemoglobin 12.6 12.2-18.1 g/dl Hematocrit 38.4 37.7-53.7 % MCV 85.1 80.0-97.0 FL MCH 27.9 27.0-31.2 pg MCHC 32.8 31.8-35.4 g/dl RDW 13.0 11.6-14.8 % Platelets 231 142-424 x 103/uL MPV 9.9 9.4-12.4 FL Manual Diff Not Indicated Neutrophil % 48.9 37-80 % Neutrophils 3.82 2.0-6.9 x 103/uL Lymphocyte % 43.4 10-50 % Lymphocytes 3.39 0.6-3.4 x 103/uL Monocyte % 5.0 0-12 % Monocytes 0.39 0.0-1.0 x 103/uL Eosinophil % 1.8 0-7 % Eosinophils 0.14 0-0.7 x 103/uL Basophil % 0.9 0-2 % Basophils 0.07 0.0-0.1 x 103/uL Serology Group :48:00 Result Normal Range Units Ketone Negative Negative :20:00 Result Normal Range Units Strep Screen Negative Negative Chemistry Group :05:00 Result Normal Range Units Glucose H 341 70-99 mg/dl BUN 9 7-26 mg/dl Creatinine 0.9 0.6-1.3 mg/dl Sodium 138 136-145 mmol/L Potassium 3.6 3.5-5.1 mmol/L Chloride 102 98-107 mmol/L CO2 25 22-29 mmol/L BUN/Creatinine Ratio 10 7-25 Ratio Calcium L 8.3 8.4-10.2 mg/dl Protein Total L 5.5 6.4-8.3 g/dl Albumin L 2.7 3.5-5.0 g/dl A/G Ratio L 1.0 1.2-2.2 Ratio AST 23 5-34 U/L ALT 45 0-55 U/L ALP 85 40-150 U/L Bilirubin Total 0.4 0.2-1.2 mg/dl Osmolality 279 261-280 mOsm/kg Globulin 2.8 2.4-3.5 g/dl Hemoglobin A1C H 11.8 < 6.0 % TSH 1.25 0.35-4.94 uIU/mL :20:00 Result Normal Range Units Glucose H 391 70-99 mg/dl BUN 8 7-26 mg/dl Creatinine 0.9 0.6-1.3 mg/dl Sodium L 133 136-145 mmol/L Potassium 4.2 3.5-5.1 mmol/L Chloride L 96 98-107 mmol/L CO2 26 22-29 mmol/L BUN/Creatinine Ratio 9 7-25 Ratio Calcium 9.0 8.4-10.2 mg/dl Protein Total 6.4 6.4-8.3 g/dl Albumin L 3.4 3.5-5.0 g/dl A/G Ratio L 1.1 1.2-2.2 Ratio AST 33 5-34 U/L ALT H 59 0-55 U/L ALP 103 40-150 U/L Bilirubin Total 0.7 0.2-1.2 mg/dl Osmolality 272 261-280 mOsm/kg Globulin 3.0 2.4-3.5 g/dl History of procedures No procedures recorded for this patient visit. Functional status Functional Status Finding Observation Time Dexterity Right-handed :58 Weight Bearing Statu Full :41 Transferring/Ambulat Independent :58 Bathing Independent :58 Dressing Independent :58 Eating Independent :58 Drinking Independent :58 Toileting Independent : Able to Turn Self in Independent :58 Stairs Not Done :58 Cognitive Status Finding Observation Time Level of Consciousne Agitated :45 Oriented to Person Yes :[address] Yes :45 Oriented to Time Yes :45 Eyes - KYLAH Yes :45 Vital signs Type Value Date Respirations 20 :50 Pulse 87 :50 O2 Saturation 96% :50 Systolic Blood Press 138mm/HG :50 Diastolic Blood Pres 84mm/HG :50 Temperature (Fahr) 98.3Degrees :50 Height 62in :56 Weight 252.0LB 27-96-682233:56 Social history Type Value Smoking Status FORMER SMOKER Treatment Plan Treatment Plan at f/u c dr tracy 09/21/15 1430 Hospital discharge instructions Diagnosis UNCONTROLLED TYPE 1 DIABETES, HYPONATREMIA, FATIGUE Diet DIABETIC DIET Activity Level TOLERATED Med Dispensed by [facility] YOU WILL BE SENT IN HUMALOG U-200 TO THE PHARMACY TO REPLACE YOUR NOVOLOG. CONTINUE LEVEMIR BUT INCREASE TO 55 UNITS TWICE DAILY Follow up with MEAGAN Appointment Date and August 18 at 9:15 Follow up with ECHO (SEND TO [facility]) Appointment Date and September 21 at 2:30 Comment: at [facility] Other Instructions THE NURSES WILL SCHEDULE YOU WITH DR TRACY
--- OUTSIDE RECORDS SUMMARY | 2016-12-21 08:26 | XMS REPORT ---
Author Author [facility] Medical Staff Organization [facility] Address [address] [place], [place] [address] Phone [phone] Care Team Providers Care Person Investigator Name Role Phone MEAGAN FOSTER PP [phone] Summary purpose CCDA Sent to [facility] Chief Complaint and Reason for Visit Admit Diagnosis 1 HEMOPTYSIS NOS Problem list No authorized problems tracked for [...] diagnostic tests and/or laboratory data RESULTS CBC [id number]:47:00 Result Normal Range Units WBC H 10.78 [...] 2014-07-10 at 11:35:24. Previous status was FR. [id number] Not Detected Not Detected Result Amended on [...] Previous status was FR. Gram Positive Bacteria 30-56-160073:47:00 Result Normal Range Units Entero1 Not Detected Not Detected Result Amended on 2014-07-10 at 11:35:23. Previous status was FR. History of procedures Procedure Code Code Type Description Date Performed Performing Physician 24807 CPT-4 COMPLETE CBC W/AUTO DIFF WBC 07-10-2014 MEAGAN PATTERSON 56264 CPT-4 COMPREHEN METABOLIC PANEL 07-10-2014 MEAGAN PATTERSON 05138 CPT-4 DETECT AGENT NOS DNA AMP 07-10-2014 MEAGAN PATTERSON 21985 CPT-4 RESP VIRUS -25 TARGETS 07-10-2014 MEAGAN PATTERSON 90891 CPT-4 CHYLMD PNEUM DNA AMP PROBE 07-10-2014 MEAGAN PATTERSON 15685 CPT-4 M.PNEUMON DNA AMP PROBE 07-10-2014 MEAGAN PATTERSON 97721 CPT-4 CT HEAD/BRAIN W/O & W/DYE 07-10-2014 MEAGAN PATTERSON 51045 CPT-4 CT THORAX W/DYE 07-10-2014 MEAGAN PATTERSON J2930 CPT-4 METHYLPREDNISOLONE INJECTION 07-10-2014 MEAGAN PATTERSON J1200 CPT-4 BENADRYL 50 07-10-2014 MEAGAN PATTERSON J1642 CPT-4 INJ HEPARIN SODIUM PER 10 U 07-10-2014 MEAGAN PATTERSON 18520 CPT-4 ROUTINE VENIPUNCTURE 07-10-2014 MEAGAN PATTERSON Q9967 CPT-4 LOCM 300-399MG/ML IODINE,1ML 07-10-2014 MEAGAN PATTERSON J7050 CPT-4 NS SOLUTION 250 CC INFUSION 07-10-2014 MEAGAN PATTERSON 03284 CPT-4 THER/PROPH/DIAG INJ IV PUSH 07-10-2014 MEAGAN PATTERSON 26452 CPT-4 TX/PRO/DX INJ NEW DRUG ADDON 07-10-2014 MEAGAN PATTERSON Functional status No functional or cognitive status observations are available for this visit. Vital signs Type Value Date Respirations 20 33-01-780177:46 Pulse 92 :46 O2 Saturation 98% 70-06-846801:46 Systolic Blood Press 153mm/HG 60-21-386917:46 Diastolic Blood Pres 87mm/HG 91-54-409202:46 Temperature (Fahr) 98.2Degrees 30-44-894839:50 Social history No Social History or smoking status observations were recorded for this visit. ( Unknown if ever smoked.) Treatment Plan Treatment Plan at Di follow up with Caty Patterson as planned, call or return if problems arise Hospital discharge instructions No discharge instruction text is available for this visit.
--- OUTSIDE RECORDS SUMMARY | 2016-12-21 08:27 | XMS REPORT ---
Author Author [facility] Medical Staff Organization [facility] Address [address] [place], [place] [address] Phone [phone] Care Team Providers Care Veneer Slicing Machine Operator Name Role Phone MEAGAN FOSTER PP [phone] Summary purpose TRANSITION OF CARE AUTO GENERATION [...]
--- OUTSIDE RECORDS SUMMARY | 2016-12-21 08:27 | XMS REPORT ---
Author Author [facility] Medical Staff Organization [facility] Address [address] [place], [place] [address] Phone [phone] Care Team Providers Care Travel Writer Name Role Phone MEAGAN FOSTER PP [phone] Summary purpose CCDA Sent to [facility] Chief Complaint and Reason for Visit Admit Diagnosis 1 CHEST PAIN NOS Problem list No authorized problems tracked [...] diagnostic tests and/or laboratory data RESULTS CBC [id number]:43:00 Result Normal Range Units WBC 6.91 4.60-10.20 x 103/uL RBC L 3.72 4.04-6.13 x 106/uL Hemoglobin L 11.0 12.2-18.1 g/dl Hematocrit L 34.8 37.7-53.7 % MCV 93.5 80.0-97.0 FL MCH 29.6 27.0-31.2 pg MCHC L 31.6 31.8-35.4 g/dl RDW 13.4 11.6-14.8 % Platelets 188 142-424 x 103/uL MPV 10.0 9.4-12.4 FL Manual Diff Not Indicated Neutrophil % 57.9 37-80 % Neutrophils 4.00 2.0-6.9 x 103/uL Lymphocyte % 34.0 10-50 % Lymphocytes 2.35 0.6-3.4 x 103/uL Monocyte % 4.9 0-12 % Monocytes 0.34 0.0-1.0 x 103/uL Eosinophil % 2.9 0-7 % Eosinophils 0.20 0-0.7 x 103/uL Basophil % 0.3 0-2 % Basophils 0.02 0.0-0.1 x 103/uL Chemistry Group [id number]:43:00 Result Normal Range Units Glucose H 380 65-110 mg/dl BUN L 5 7-21 mg/dl Creatinine 0.7 0.7-1.5 mg/dl Sodium L 135 137-145 mmol/L Potassium L 3.5 3.6-5.0 mmol/L Chloride 99 98-107 mmol/L CO2 30 22-30 mmol/L BUN/Creatinine Ratio L 6.4 7-25 Ratio Calcium L 8.1 8.4-10.2 mg/dl Protein Total 6.6 6.3-8.2 g/dl Albumin L 3.2 3.5-5.0 g/dl A/G Ratio L 0.9 1.2-2.2 Ratio AST 33 15-46 U/L ALT 28 7-56 U/L ALP 98 38-126 U/L Bilirubin Total 0.6 0.2-1.3 mg/dl Osmolality 274 261-280 mOsm/kg Globulin 3.4 2.4-3.5 g/dL CK H 302 30-170 U/L Result Amended on 2014-05-28 at 19:40:38. Previous status was OK. CKMB 3.4 <=6 ng/ml BNP H 157.4 <=100 pg/ml Troponin 0.01 <=0.20 ng/ml History of procedures Procedure Code Code Type Description Date Performed Performing Physician 81757 CPT-4 COMPLETE CBC W/AUTO DIFF WBC 05-28-2014 MEAGAN ALVARADO 13557 CPT-4 COMPREHEN METABOLIC PANEL 05-28-2014 MEAGAN ALVARADO 75345 CPT-4 ASSAY OF NATRIURETIC PEPTIDE 05-28-2014 MEAGAN ALVARADO 46050 CPT-4 ASSAY OF CK (CPK) 05-28-2014 MEAGAN ALVARADO 28209 CPT-4 CREATINE MB FRACTION 05-28-2014 MEAGAN ALVARADO 83081 CPT-4 ASSAY OF TROPONIN QUANT 05-28-2014 MEAGAN ALVARADO 24856 CPT-4 ROUTINE VENIPUNCTURE 05-28-2014 MEAGAN ALVARADO Functional status No functional or [...]
--- OUTSIDE RECORDS SUMMARY | 2016-12-21 08:27 | XMS REPORT ---
Author Author [facility] Medical Staff Organization [facility] Address [address] [place], [place] [address] Phone [phone] Care Team Providers Care Materials Director Name Role Phone MEAGAN FOSTER PP [phone] Summary purpose CCDA Sent to [facility] Chief Complaint and Reason for Visit Admit Diagnosis 1 PNEUMONIA, ORGANISM NOS Problem list No authorized problems tracked for continuity of care are available for this visit. Encounters No authorized problems tracked for encounter diagnoses are available for this visit. Medications Home Medications Medication Directions Started Status Source Lasix 20 mg tablet 1 tablet Oral -Daily Current gabapentin Oral 1 tablet Oral 4 times daily Current temazepam 30 mg capsule 1 tablet Oral At bed time Current Humalog 100 unit/mL Sub-Q 25 units SubQ 3 times daily Current Lantus 100 unit/mL Sub-Q 25 units SubQ 2 times per day Current Xanax 0.25 mg tablet 1 tablet Oral 3 times daily Current atenolol 50 mg tablet 1/2 tablet Oral -Daily 1 1/2 tabs daily Current Flexeril 10 mg tablet 1 tablet Oral 3 times daily Current omeprazole Oral 1 tablet Oral -Daily Current Zantac 150 EFFERdose 150 mg oral packet 1 tablet oral 2 times per day Current MS Contin 15 mg tablet,extended release 1 tablet oral 2 times per day Current Nitrostat 0.4 mg sublingual tablet 1 tablet SL See medication notes every 15 min x 3 for chest pain Current levothyroxine 25 mcg capsule 1 tablet oral -Daily Current Bactroban 2 % topical ointment 1 other top See medication notes use as directed Current Percocet 10 mg-325 mg tablet 1 tablet oral As Needed Every 6 Hours Current citalopram 40 mg tablet 1 tablet oral -Daily Current Hyzaar 100 mg-25 mg tablet 1 tablet oral -Daily Current Cambia 50 mg oral powder packet 1 tablet oral See medication notes as needed for migraine Current Diflucan 150 mg tablet 1 tablet oral -Daily repeat in 3 days Current Allergies, adverse reactions, alerts Allergen Category [...] diagnostic tests and/or laboratory data RESULTS CBC :15:00 Result Normal Range Units WBC 7.14 4.60-10.20 x 103/uL RBC L 3.88 4.04-6.13 x 106/uL Hemoglobin L 11.2 12.2-18.1 g/dl Hematocrit L 35.4 37.7-53.7 % MCV 91.2 80.0-97.0 FL MCH 28.9 27.0-31.2 pg MCHC L 31.6 31.8-35.4 g/dl RDW 13.2 11.6-14.8 % Platelets 229 142-424 x 103/uL MPV 9.8 9.4-12.4 FL Manual Diff Not Indicated Neutrophil % 49.8 37-80 % Neutrophils 3.56 2.0-6.9 x 103/uL Lymphocyte % 40.9 10-50 % Lymphocytes 2.92 0.6-3.4 x 103/uL Monocyte % 5.5 0-12 % Monocytes 0.39 0.0-1.0 x 103/uL Eosinophil % 3.1 0-7 % Eosinophils 0.22 0-0.7 x 103/uL Basophil % 0.7 0-2 % Basophils 0.05 0.0-0.1 x 103/uL Chemistry Group :15:00 Result Normal Range Units Glucose H 292 65-110 mg/dl BUN 8 7-21 mg/dl Creatinine 0.8 0.7-1.5 mg/dl Sodium L 133 137-145 mmol/L Potassium 4.1 3.6-5.0 mmol/L Chloride L 96 98-107 mmol/L CO2 29 22-30 mmol/L BUN/Creatinine Ratio 10.8 7-25 Ratio Calcium 8.8 8.4-10.2 mg/dl Protein Total 6.7 6.3-8.2 g/dl Albumin 3.6 3.5-5.0 g/dl A/G Ratio L 1.1 1.2-2.2 Ratio AST H 50 15-46 U/L ALT 43 7-56 U/L ALP 101 38-126 U/L Bilirubin Total 0.4 0.2-1.3 mg/dl Osmolality 267 261-280 mOsm/kg Globulin 3.1 2.4-3.5 g/dL History of procedures Procedure Code Code Type Description Date Performed Performing Physician 60912 CPT-4 IRRIG DRUG DELIVERY DEVICE 07-29-2014 MEAGAN ALVARADO 44025 CPT-4 COMPLETE CBC W/AUTO DIFF WBC 07-29-2014 MEAGAN ALVARADO 94291 CPT-4 COMPREHEN METABOLIC PANEL 07-29-2014 MEAGAN ALVARADO J1642 CPT-4 INJ HEPARIN SODIUM PER 10 U 07-29-2014 MEAGAN ALVARADO 74919 CPT-4 ROUTINE VENIPUNCTURE 07-29-2014 MEAGAN ALVARADO Functional status No functional or cognitive status observations are available for this visit. Vital signs Type Value Date Respirations 20 94-27-725490:37 Pulse 92 01-55-123715:37 O2 Saturation 92% 28-06-494942:37 Systolic Blood Press 143mm/HG 81-90-844800:37 Diastolic Blood Pres 86mm/HG 70-02-415730:37 Temperature (Fahr) 97.8Degrees 32-22-318308:37 Social history No Social History or smoking status observations were recorded for this visit. ( Unknown if ever smoked.) Treatment Plan No treatment plan text is available for this visit. Hospital discharge instructions No discharge instruction text is available for this visit.
--- OUTSIDE RECORDS SUMMARY | 2016-12-21 08:27 | XMS REPORT ---
Author Author [facility] Medical Staff Organization [facility] Address [address] [place], [place] [address] Phone [phone] Care Team Providers Care Continuous Yarn Dyeing Machine Operator Name Role Phone MEAGAN FOSTER PP [phone] Summary purpose CCDA Sent to [facility] Chief Complaint and Reason for Visit Admit Diagnosis 1 ACUTE URI NOS Problem list No authorized problems tracked [...] diagnostic tests and/or laboratory data RESULTS CBC 69-02-019012:40:00 Result Normal Range Units WBC 7.85 4.60-10.20 [...] Other Hematology PLATELET CLUMPING OBSERVED Chemistry Group [id number]:40:00 Result Normal Range Units Glucose H 259 [...] Code Type Description Date Performed Performing Physician 59678 CPT-4 COMPREHEN METABOLIC PANEL 07-18-2014 MEAGAN ALVARADO 61485 CPT-4 SMEAR GRAM STAIN 07-18-2014 MEAGAN ALVARADO 92602 CPT-4 CULTURE OTHR SPECIMN AEROBIC 07-18-2014 MEAGAN ALVARADO 52980 CPT-4 ROUTINE VENIPUNCTURE 07-18-2014 MEAGAN ALVARADO 02369 CPT-4 BL SMEAR W/DIFF WBC COUNT 07-18-2014 MEAGAN ALVARADO 30324 CPT-4 COMPLETE CBC AUTOMATED 07-18-2014 MEAGAN ALVARADO 37830 CPT-4 CULTURE AEROBIC IDENTIFY 07-18-2014 MEAGAN ALVARADO 15518 CPT-4 MICROBE SUSCEPTIBLE ENZYME 07-18-2014 MEAGAN ALVARADO 56375 CPT-4 CULTURE AEROBIC IDENTIFY 07-18-2014 MEAGAN ALVARADO 42584 CPT-4 MICROBE SUSCEPTIBLE DISK 07-18-2014 MEAGAN ALVARADO Functional status No functional or [...]
--- OUTSIDE RECORDS SUMMARY | 2016-12-21 08:27 | XMS REPORT ---
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 (poly)neuropathy E11.43 Active Problem Epigastric pain R10.13 Active Problem Anxiety F41.9 Active Problem 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 Active Medications Medication Code System Code Instructions Start Date End Date Status Dosage Escitalopram Oxalate [facility] [address]-99 20 mg Orally Once a day 1 tablet Chantix [facility] [address]-48 1 MG Orally Twice a day 1 tablet Zantac [facility] [address]-20 150 MG Orally twice a day 1 tablet Tylenol [facility] [address]-95 500 MG/15ML Orally Once a day @ HS 2 tablets Insulin Syringe [facility] 8326-557148 31G X 5/16 not defined Luis Fernando Contour Test [facility] [address]-82 - In Vitro 3 times a day Jan 29, 2016 as directed Humulin R U-500 (Concentrated) [facility] [address]-20 500 UNIT/ML Subcutaneous 3 times a day with meals 45 units or per sliding scale Atenolol [facility] [address]-00 50 mg Orally Once a day 2 tablet Pantoprazole Sodium [facility] [address]-90 40 mg Orally Once a day 1 tablet Gabapentin [facility] [address]-53 800 MG Orally 3 times a day 1 tablet Losartan Potassium-HCTZ [facility] [address]-59 100-25 MG Orally Once a day 1 tablet Alprazolam [facility] [address]-09 1 MG Orally Three times a day 1 tablet Seroquel XR [facility] [address]-52 50 mg Orally Once a day at HS 2 tablet in the evening Tresiba FlexTouch [facility] [address]-42 100 UNIT/ML Subcutaneous Once a day at bedtime 75 units Levemir FlexTouch [facility] [address]-42 100 UNIT/ML Subcutaneous 2 times a day 35 units Oxygen ND 0 at bedtime 3L nasal canal Benadryl Allergy [facility] [address]-14 25 MG Orally Once a day at bedtime 2 tablet as needed Temazepam [facility] [address]-98 30 MG Orally Once a day 1 capsule at bedtime as needed Promethazine HCl [facility] [address]-06 25 MG TAKE ONE TABLET BY MOUTH EVERY 6 HOURS NEEDED Nystatin [facility] [address]-07 134755 UNIT/GM Externally Twice a day 1 to affected area Levothyroxine Sodium [facility] [address]-15 75 MCG Orally Once a day 1 tablet Baclofen [facility] [address]-50 10 MG Orally Three times a day Jan 26, 2016 1 tablet with food or milk Procedures Procedure Coding System Code Date Office Visit, Est Pt., Level 5 CPT-4 56067 Feb 03, 2016 GLUCOSE BLOOD TEST CPT-4 09607 Feb 03, 2016 Vital Signs Date/Time: Feb 03, 2016 Cardiac Monitoring Heart Rate 88 bpm Weight 247.2 lbs Height 62 in BMI 45.21 Index Blood Pressure Diastolic 70 mmHg Blood Pressure Systolic 108 mmHg Results No Known Results Summary Purpose [employer] Submission
--- OUTSIDE RECORDS SUMMARY | 2016-12-21 08:27 | XMS REPORT ---
Author Author [facility] Medical Staff Organization [facility] Address [address] [place], [place] [address] Phone [phone] Care Team Providers Care Belt Polisher Name Role Phone MEAGAN FOSTER PP [phone] Summary purpose CCDA Sent to [facility] Chief Complaint and Reason for Visit [...] diagnostic tests and/or laboratory data RESULTS CBC :58:00 Result Normal Range Units WBC 9.02 4.60-10.20 x 103/uL RBC 4.43 4.04-6.13 x 106/uL Hemoglobin 12.5 12.2-18.1 g/dl Hematocrit 39.2 37.7-53.7 % MCV 88.5 80.0-97.0 FL MCH 28.2 27.0-31.2 pg MCHC 31.9 31.8-35.4 g/dl RDW 14.1 11.6-14.8 % Platelets 228 142-424 x 103/uL MPV 9.9 9.4-12.4 FL Manual Diff Indicated Neutrophils 34.0 Lymphocytes 56.0 Monocytes 7.0 Eosinophils 3.0 Chemistry Group [id number]:00 Result Normal Range Units Glucose H 363 70-99 mg/dl BUN 7 7-26 mg/dl Creatinine 0.8 0.6-1.3 mg/dl Sodium L 131 136-145 mmol/L Potassium 4.2 3.5-5.1 mmol/L Chloride L 96 98-107 mmol/L CO2 L 21 22-29 mmol/L BUN/Creatinine Ratio 9 7-25 Ratio Calcium 8.7 8.4-10.2 mg/dl Protein Total 7.3 6.4-8.3 g/dl Albumin 3.5 3.5-5.0 g/dl A/G Ratio L 0.9 1.2-2.2 Ratio AST H 49 5-34 U/L ALT 47 0-55 U/L ALP 103 40-150 U/L Bilirubin Total 0.6 0.2-1.2 mg/dl Osmolality 266 261-280 mOsm/kg Globulin H 3.8 2.4-3.5 g/dl History of procedures Procedure Code Code Type Description Date Performed Performing Physician 36295 CPT-4 COMPREHEN METABOLIC PANEL 09-08-2015 MEAGAN ALVARADO 89397 CPT-4 ROUTINE VENIPUNCTURE 09-08-2015 MEAGAN ALVARADO 69334 CPT-4 BL SMEAR W/DIFF WBC COUNT 09-08-2015 MEAGAN ALVARADO 98467 CPT-4 COMPLETE CBC, AUTOMATED 09-08-2015 MEAGAN ALVARADO Functional status No functional or [...]
--- OUTSIDE RECORDS SUMMARY | 2016-12-21 08:28 | XMS REPORT | Clinical Summary ---
Author Author Admin, BRANDON Organization [facility] Address Unknown Phone Unavailable Allergies, Adverse [...] Coronary atherosclerosis of unspecified type of vessel, [place] or graft DIABETES, TYPE 2 250.00 Active [...] Take one by mouth daily PANTOPRAZOLE SODIUM 31975036318 Active Saumya Franciscoglari BIAS CUTTING MACHINE OPERATOR Active OMEPRAZOLE 40 MG CPDR Take one by mouth daily OMEPRAZOLE 65913849532 No Longer Active Saumya Singhglari BIAS CUTTING MACHINE OPERATOR Active LEVEMIR 100 UNIT/ML SOLN 40u twice daily at 10am, 10pm INSULIN DETEMIR 11453310629 Active Saumya Singhglari BIAS CUTTING MACHINE OPERATOR Active LANTUS 100 UNIT/ML SOLN 40 units subq at bedtime INSULIN GLARGINE 89479463323 No Longer Active Saumya Singhglari BIAS CUTTING MACHINE OPERATOR Active HUMALOG 100 UNIT/ML SOLN 30 units subq before each meal, add 4u/50 for blood sugars above 150. INSULIN LISPRO (HUMAN) 29579075713 Active Saumya Cora GURROLA Active LASIX 20 MG TABS Take 1 tablet daily FUROSEMIDE 11842636185 Active Bismark Landa MD Active HYZAAR 100-25 MG TABS Take 1 tablet daily LOSARTAN POTASSIUM- HCTZ 29518304029 Active Bismark Landa MD Active SYNTHROID 25 MCG TABS Take 1 tablet daily LEVOTHYROXINE SODIUM 86630622030 Active Bismark Landa MD Active ZANTAC 150 MG TABS Take 1 tablet BID RANITIDINE HCL 63433098924 Active Bismark Landa MD Active PERCOCET 10-325 MG TABS Take 1 tablet every 8 hours as needed for pain. 11/26 OXYCODONE-ACETAMINOPHEN 40872648418 Active Bismark Landa MD Active MORPHINE SULFATE ER 15 MG CR-TABS Take 1 tablet BID MORPHINE SULFATE 50534413838 Active Bismark Landa MD Active CELEXA 20 MG TABS Take 1 tablet BID CITALOPRAM HYDROBROMIDE 01858347433 Active Bismark Landa MD Active GABAPENTIN 600 MG TABS 1 by mouth QID GABAPENTIN 57052680469 Active Bismark Landa MD Active CLARITHROMYCIN 500 MG TABS by mouth twice a day CLARITHROMYCIN 28091285911 No Longer Active Bismark Landa MD Active TRAZODONE HCL 100 MG TABS 1/2- 1 at bedtime TRAZODONE HCL 28982394785 No Longer Active Bismark Landa MD Active AMOXICILLIN 500 MG TABS 2 by mouth daily AMOXICILLIN 98589773510 No Longer Active Bismark Landa MD Active HYDROCODONE-ACETAMINOPHEN 7.5-325 MG TABS 1 by mouth every 6 hours as needed HYDROCODONE-ACETAMINOPHEN 77087783295 No Longer Active Bismark Landa MD Active HYDROCHLOROTHIAZIDE 25 MG TABS Take one by mouth daily HYDROCHLOROTHIAZIDE 00339103101 No Longer Active Bismark Landa MD Active VERAPAMIL HCL CR 240 MG CR-TABS Take one by mouth daily VERAPAMIL HCL 06110402687 No Longer Active Bismark Landa MD Active ALPRAZOLAM 0.5 MG TABS Take 1 tablet TID ALPRAZOLAM 41432936280 Active Bismark Landa MD Active HYDROCODONE-ACETAMINOPHEN 10-325 MG TABS take at bedtime HYDROCODONE-ACETAMINOPHEN 18794344676 No Longer Active Bismark Landa MD Active SUCRALFATE 1 GM TABS Take one by mouth four times daily, morning, noon, early evening and bedtime. SUCRALFATE 65823258563 No Longer Active Bismark Landa MD Active KLOR-CON 10 10 MEQ CR-TABS Take one by mouth daily POTASSIUM CHLORIDE 31980078094 No Longer Active Bismark Landa MD Active METOLAZONE 5 MG TABS Take one by mouth daily METOLAZONE 93369084696 No Longer Active Bismark Landa MD Active TEMAZEPAM 30 MG CAPS Take 1 tablet at bed time. TEMAZEPAM 84556740680 Active Bismark Landa MD Active CYCLOBENZAPRINE HCL 10 MG TABS Take one by mouth daily CYCLOBENZAPRINE HCL 70263031454 Active Arnold Ibarra MD Active ATENOLOL 50 MG TABS 1 1/2 daily ATENOLOL 73447484860 Active Arnold Ibarra MD Active PROMETHAZINE HCL 25 MG TABS 1 tab by mouth every 6 hours as needed for nausea/ vomiting PROMETHAZINE HCL 78384737834 Active Arnold Ibarra MD Active METOLAZONE 5 MG TABS Take one by mouth daily METOLAZONE 5 MG TABS 770611 METOLAZONE Inactive KLOR-CON 10 10 MEQ CR-TABS Take one by mouth daily KLOR-CON 10 10 MEQ CR-TABS POTASSIUM CHLORIDE Inactive SUCRALFATE 1 GM TABS Take one by mouth four times daily, morning, noon, early evening and bedtime. SUCRALFATE 1 GM TABS 442710 SUCRALFATE Inactive HYDROCODONE-ACETAMINOPHEN 10-325 MG TABS take at bedtime HYDROCODONE-ACETAMINOPHEN 10-325 MG TABS 591732 HYDROCODONE-ACETAMINOPHEN Inactive VERAPAMIL HCL CR 240 MG CR-TABS Take one by mouth daily VERAPAMIL HCL CR 240 MG CR-TABS VERAPAMIL HCL Inactive HYDROCHLOROTHIAZIDE 25 MG TABS Take one by mouth daily HYDROCHLOROTHIAZIDE 25 MG TABS 289563 HYDROCHLOROTHIAZIDE Inactive HYDROCODONE-ACETAMINOPHEN 7.5-325 MG TABS 1 by mouth every 6 hours as needed HYDROCODONE-ACETAMINOPHEN 7.5-325 MG TABS 619753 HYDROCODONE-ACETAMINOPHEN Inactive AMOXICILLIN 500 MG TABS 2 by mouth daily AMOXICILLIN 500 MG TABS 727782 AMOXICILLIN Inactive TRAZODONE HCL 100 MG TABS 1/2- 1 at bedtime TRAZODONE HCL 100 MG TABS 467522 TRAZODONE HCL Inactive CLARITHROMYCIN 500 MG TABS by mouth twice a day CLARITHROMYCIN 500 MG TABS 526348 CLARITHROMYCIN Inactive LANTUS 100 UNIT/ML SOLN 40 units subq at bedtime LANTUS 100 UNIT/ML SOLN INSULIN GLARGINE Inactive OMEPRAZOLE 40 MG CPDR Take one by mouth daily OMEPRAZOLE 40 MG CPDR 181771 OMEPRAZOLE Inactive Vital Signs Date Name Value [...] Yes Encounters Code Encounter Date Provider Facility CPT-47024 Level 5 Est. Patient 13:05:17 CDT Saumya GURROLA [facility] CPT-10670 Level 4 Est. Patient 14:58:44 CDT Bismark Landa MD [facility] CPT-66138 Level 4 New Patient 15:17:54 CDT Priscila Valera MD [facility] CPT-29504 Level 2 Est. Patient 16:51:13 CDT Arnold Ibarra MD [facility] Procedures Code Procedure Name Date Entry Date Standard Description CPT-84596 Cystoscopy 15:17:54 CDT
--- OUTSIDE RECORDS SUMMARY | 2016-12-21 08:28 | XMS REPORT ---
Author Author MIRZA MARTINO [facility] Address [address] [place] [address] Care Team Providers Care Scalder Name Role Phone MIRZA MARTINO Unavailable PROBLEMS Type Condition ICD9-CM Code ZIW62-DC Code Onset Dates Condition Status SNOMED Code Problem Anxiety F41.9 Active 68735846 Problem Nodule of chest wall R22.2 Active 518832656 Problem MCC 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 Active 104599956 Problem Gastroparesis K31.84 Active 390738366 Problem Type 2 diabetes mellitus with unspecified complications E11.8 Active 54120521 Problem Epigastric pain R10.13 Active 30981023 Problem Tobacco abuse Z72.0 Active 840423729 Problem Thrush B37.0 Active 85261052 Problem Bronchitis J40 Active 73894405 Problem Vaginal bleeding N93.9 Active 481758118 Problem Weakness R53.1 Active 00436773 Problem Acquired hypothyroidism E03.9 Active 179880257 Problem Chronic pain syndrome G89.4 Active 781529840 Problem 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 Active 312507245 Problem Drowsiness R40.0 Active 893488531 Problem Type 1 diabetes mellitus without complication E10.9 Active 798192942 Problem Anxiety, generalized F41.1 Active 17695357 Problem Severe episode of recurrent major depressive disorder, without 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 Active 50072412 Problem Type 2 diabetes mellitus with diabetic autonomic (poly)neuropathy E11.43 Active 798177018 Problem Type 2 diabetes mellitus with foot ulcer E11.621 Active 4724597973843 Problem Essential hypertension I10 Active 09720831 Problem Congestive heart failure, unspecified congestive heart failure chronicity, unspecified congestive heart failure type I50.9 Active 45653794 Problem 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
--- OUTSIDE RECORDS SUMMARY | 2016-12-21 08:28 | XMS REPORT ---
Author Author [facility] Medical Staff Organization [facility] Address [address] [place], [place] [address] Phone [phone] Care Team Providers Care Packing And Shipping Clerk Name Role Phone MEAGAN FOSTER PP [phone] Summary purpose TRANSITION OF CARE AUTO GENERATION [...] tests and/or laboratory data RESULTS Routine Urinalysis [id number]:50:00 Result Normal Range Units Color YELLOW Clarity Clear Specific [place] 1.005 pH 6.0 4.5-8.0 Glucose 1+ Bilirubin NEGATIVE Ketones NEGATIVE Protein NEGATIVE Urobilinogen 0.2 0-0.2 E.U./dL Nitrites NEGATIVE Blood NEGATIVE Leukocytes NEGATIVE WBCs 0-5 RBCs No RBC's Seen. Squamous Epithelial Few Bacteria Occasional Drug Screen In House [id number]:50:00 Result Normal Range Units Amphetamine Negative Negative [...] Negative Tricyclic Antidepressants AB Positive Negative Chemistry [id number]:04:00 Result Normal Range Units Sodium 136 134-145 [...] Estimated GFR L 54 >=60 mL/min/1.7 Hematology [id number]:04:00 Result Normal Range Units WBC 7.1 4.8-10.8 [...] 2.0 0-5 % Lymphs 22.0 20-40 % [place] 2.0 0-10 % Eos 6.0 0-7 % Baso 1.0 0-2 % Atypical Lymphs 5.0 0-5 % Body Fluid :50:00 Result Normal Range Units pH 6.0 4.5-8.0 Cardiac :04:00 Result Normal Range Units CK H 411 [...] should be interpreted with caution. Thyroid Testing :04:00 Result Normal Range Units TSH H 5.78 0.36-3.74 uIU/mL Free T4 1.22 0.76-1.46 ng/dl Radiology Results :04:00 Result Normal Range Units MPV 9.4 7.3-10.4 FL History of procedures No procedures recorded for this patient visit. Functional status No functional or cognitive status observations are available for this visit. Vital signs Type Value Date Respiration Rate 22breaths per minute :55 Pulse 93beats per minute :55 Oxygen Saturation 97% :55 BP Systolic 130mmHg :55 BP Diastolic 75mmHg :55 Temperature 98.0F :55 Social history Type Value Smoking Status FORMER SMOKER Treatment Plan No treatment plan text is available for this visit. Hospital discharge instructions Dismissal Condition good Disposition on DC home DC Inst/Educ Give yes
--- OUTSIDE RECORDS SUMMARY | 2016-12-21 08:28 | XMS REPORT ---
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 Active Problem Type 1 diabetes mellitus without complication E10.9 Active Problem Thrush B37.0 Active Problem Nodule of chest wall R22.2 Active Problem Anxiety F41.9 Active Problem Drowsiness R40.0 Active Assessment Thrush B37.0 Active Problem Type 2 diabetes mellitus with unspecified complications E11.8 Active Problem half-way 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 Active Problem [...] Active Problem Acquired hypothyroidism E03.9 Active Problem Essential hypertension I10 Active Medications Medication Code System Code Instructions Start Date End Date Status Dosage Oxygen NDC 0 at bedtime 3L nasal canal Nystatin NDC [address]-05 159241 UNIT/GM Externally Twice a day 1 to affected area Benadryl Allergy [facility] [address]-29 25 MG Orally Once a day at bedtime 2 tablet as needed Gabapentin [facility] [address]-52 800 MG Orally 3 times a day 1 tablet Furosemide [facility] [address]-49 20 mg Orally Once a day 1 tablet Tresiba FlexTouch [facility] [address]-98 100 UNIT/ML Subcutaneous Once a day at bedtime 75 units Diflucan [facility] [address]-13 150 MG Orally one time May 02, 2016 1 tablet today and repeat in 4 days Insulin Syringe [facility] 8326-289895 31G X 16 not defined Zantac [facility] [address]-27 150 MG Orally twice a day 1 tablet Escitalopram Oxalate [facility] [address]-00 20 mg Orally Once a day 1 tablet Tylenol [facility] [address]-04 500 MG/15ML Orally Once a day @ HS 2 tablets Losartan Potassium-HCTZ [facility] [address]-07 100-25 MG Orally Once a day 1 tablet Nystatin [facility] [address]-78 360027 UNIT/ML Mouth/Throat Four times a day Apr 06, 2016 4 ml Baclofen [facility] [address]-25 10 MG Orally Three times a day Jan 26, 2016 1 tablet with food or milk Seroquel XR [facility] 03073776844 50MG TAKE TWO TABLETS BY MOUTH ONCE DAILY AT BEDTIME Temazepam [facility] [address]-98 30 MG Orally Once a day 1 capsule at bedtime as needed Promethazine HCl [facility] [address]-79 25 MG TAKE ONE TABLET BY MOUTH EVERY 6 HOURS NEEDED Luis Fernando Contour Test [facility] [address]-48 - In Vitro 3 times a day Jan 29, 2016 as directed Atenolol [facility] [address]-99 50 mg Orally Once a day 2 tablet Alprazolam [facility] [address]-85 1 MG Orally Three times a day must last 28 days 1 tablet Humulin R U-500 (Concentrated) [facility] [address]-48 500 UNIT/ML Subcutaneous 3 times a day with meals 45 units or per sliding scale Levemir FlexTouch [facility] [address]-57 100 UNIT/ML Subcutaneous 2 times a day 35 units Levothyroxine Sodium [facility] [address]-10 75 MCG Orally Once a day 1 tablet Pantoprazole Sodium [facility] [address]-29 40 mg Orally Once a day 1 tablet Procedures Procedure Coding System Code Date Office Visit, Est Pt., Level 3 CPT-4 92246 May 02, 2016 Vital Signs Date/Time: May 02, 2016 Cardiac Monitoring Heart Rate 82 bpm Weight 251.4 lbs Height 62 in BMI 45.98 Index Blood Pressure Diastolic 80 mmHg Blood Pressure Systolic 106 mmHg Results No Known Results Summary Purpose [employer] Submission
--- OUTSIDE RECORDS SUMMARY | 2016-12-21 08:29 | XMS REPORT ---
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 Active Medications Medication Code System Code Instructions Start Date End Date Status Dosage Tresiba FlexTouch [facility] [address]-82 100 UNIT/ML Subcutaneous Once a day at bedtime 75 units Seroquel XR [facility] [address]-29 50 mg Orally Once a day at HS 2 tablet in the evening Escitalopram Oxalate [facility] [address]-06 20 mg Orally Once a day 1 tablet Zantac [facility] [address]-07 150 MG Orally twice a day 1 tablet Diflucan [facility] [address]-25 100 MG Orally Once a day Apr 06, 2016 Apr 20, 2016 1 tablet Luis Fernando Contour Test [facility] [address]-62 - In Vitro 3 times a day Jan 29, 2016 as directed Tylenol [facility] [address]-86 500 MG/15ML Orally Once a day @ HS 2 tablets Promethazine HCl [facility] [address]-15 25 MG TAKE ONE TABLET BY MOUTH EVERY 6 HOURS NEEDED Levothyroxine Sodium [facility] [address]-67 75 MCG Orally Once a day 1 tablet Humulin R U-500 (Concentrated) [facility] [address]-84 500 UNIT/ML Subcutaneous 3 times a day with meals 45 units or per sliding scale Nystatin [facility] [address]-31 747700 UNIT/ML Mouth/Throat Four times a day Apr 06, 2016 May 06, 2016 4 ml Insulin Syringe [facility] 8326-387762 31G X 5/16 not defined Baclofen [facility] [address]-50 10 MG Orally Three times a day Jan 26, 2016 1 tablet with food or milk Benadryl Allergy [facility] [address]-84 25 MG Orally Once a day at bedtime 2 tablet as needed Oxygen NDC 0 at bedtime 3L nasal canal Losartan Potassium-HCTZ [facility] [address]-56 100-25 MG Orally Once a day 1 tablet Temazepam [facility] [address]-32 30 MG Orally Once a day 1 capsule at bedtime as needed Pantoprazole Sodium [facility] [address]-50 40 mg Orally Once a day 1 tablet Gabapentin [facility] [address]-52 800 MG Orally 3 times a day 1 tablet Levemir FlexTouch [facility] [address]-03 100 UNIT/ML Subcutaneous 2 times a day 35 units Alprazolam [facility] [address]-23 1 MG Orally Three times a day 1 tablet Nystatin [facility] [address]-78 354712 UNIT/GM Externally Twice a day 1 to affected area Chantix [facility] [address]-38 1 MG Orally Twice a day 1 tablet Atenolol [facility] [address]-94 50 mg Orally Once a day 2 tablet Procedures Procedure Coding System Code Date Office Visit, Est Pt., Level 3 CPT-4 02465 Apr 06, 2016 Vital Signs Date/Time: Apr 06, 2016 Cardiac Monitoring Heart Rate 88 bpm Weight 250.4 lbs Height 62 in BMI 45.79 Index Blood Pressure Diastolic 68 mmHg Blood Pressure Systolic 126 mmHg Results No Known Results Summary Purpose [employer] Submission
--- OUTSIDE RECORDS SUMMARY | 2016-12-21 08:29 | XMS REPORT ---
Author Author [facility] Medical Staff Organization [facility] Address [address], [place] [address] Phone [phone] Care Team Providers Care College Sports Coach Name Role Phone MEAGAN FOSTER PP [phone] Summary purpose TRANSITION OF CARE AUTO GENERATION [...]
--- OUTSIDE RECORDS SUMMARY | 2016-12-21 08:29 | XMS REPORT ---
Author Author [facility] Medical Staff Organization [facility] Address [address], [place] [address] Phone [phone] Care Team Providers Care Certified Nurses' Aide Name Role Phone MEAGAN FOSTER PP [phone] Summary purpose TRANSITION OF CARE AUTO GENERATION [...]
--- OUTSIDE RECORDS SUMMARY | 2016-12-21 08:29 | XMS REPORT | Clinical Summary ---
Author Author Admin, BRANDON Organization [facility] [employer] Address Unknown Phone Unavailable Allergies, Adverse Reactions, [...] Coronary atherosclerosis of unspecified type of vessel, [place] or graft DIABETES, TYPE 2 250.00 Active [...] min x 3 for cx pain NITROGLYCERIN 69242797158 Active Ame Pabon LPN Active CAMBIA 50 MG ORAL PACK as directed every pm DICLOFENAC POTASSIUM 02670999575 Active Ame Pabon LPN Active LEXAPRO 20 MG ORAL TABS Take one by mouth daily ESCITALOPRAM OXALATE 81033698556 Active Ame Pabon LPN Active PROAIR HFA 108 (90 BASE) MCG/ACT INH AERS 2 puffs every 6hrs prn ALBUTEROL SULFATE 16433813562 Active Ame Pabon LPN Active LEVOTHYROXINE SODIUM 75 MCG ORAL TABS Take one by mouth daily LEVOTHYROXINE SODIUM 52747856030 Active Ame Pabon LPN Active CHANTIX STARTING MONTH ODESSA TABS as directed VARENICLINE TARTRATE TABS 38599047781 Active Ame Pabon LPN Active MOVANTIK 25 MG ORAL TABS 1 tab prn as directed NALOXEGOL OXALATE 09327481423 Active Ame Pabon LPN Active METFORMIN HCL ER 500 MG ORAL [id number] by mouth twice a day METFORMIN HCL 10053864752 Active Ame Pabon LPN Active SEROQUEL XR 50 MG ORAL [id number] 2 tabs every hs QUETIAPINE FUMARATE 65899754416 Active Ame Pabon LPN Active HUMULIN R U-500 (CONCENTRATED) 500 UNIT/ML SC SOLN 30u sq once daily INSULIN REGULAR HUMAN 40389852156 Active Ame Pabon LPN Active NYSTATIN 725504 UNIT/GM EXT POWD as directed prn NYSTATIN 69142971562 Active Ame Pabon LPN Active PANTOPRAZOLE SODIUM 40 MG SOLR Take one by mouth daily PANTOPRAZOLE SODIUM 19299402279 No Longer Active Ame Pabon LPN Active SYNTHROID 25 MCG TABS Take 1 tablet daily LEVOTHYROXINE SODIUM 85317309555 No Longer Active Ame Pabon LPN Active ALPRAZOLAM 1 MG ORAL TABS 1 tab every 6 hrs prn ALPRAZOLAM 06903954841 Active Ame Pabon LPN Active HUMALOG KWIKPEN 200 UNIT/ML SC SOPN 30u one time daily INSULIN LISPRO (HUMAN) 63974954445 Active Ame Cm DUNAWAYN Active CELEXA 20 MG TABS Take 1 tablet BID CITALOPRAM HYDROBROMIDE 42318448184 No Longer Active Aem Pabon LPN Active OMEPRAZOLE 40 MG CPDR Take one by mouth daily OMEPRAZOLE 06807407077 No Longer Active Malori Ziglari AIR INTERCEPT CONTROLLER SUPERVISOR Active LEVEMIR 100 UNIT/ML SOLN 40u twice daily at 10am, 10pm INSULIN DETEMIR 80617992450 Active Maliheh Ziglari AIR INTERCEPT CONTROLLER SUPERVISOR Active LANTUS 100 UNIT/ML SOLN 40 units subq at bedtime INSULIN GLARGINE 55437689693 No Longer Active Maliheh Ziglari AIR INTERCEPT CONTROLLER SUPERVISOR Active LASIX 20 MG TABS Take 1 tablet daily FUROSEMIDE 65779948365 Active Bismark Landa MD Active HYZAAR 100-25 MG TABS Take 1 tablet daily LOSARTAN POTASSIUM- HCTZ 11595636382 Active Bismark Landa MD Active ZANTAC 150 MG TABS Take 1 tablet BID RANITIDINE HCL 21776294080 Active Bismark Landa MD Active PERCOCET 10-325 MG TABS Take 1 tablet every 8 hours as needed for pain. 11/26 OXYCODONE-ACETAMINOPHEN 43337050866 Active Bismark Landa MD Active MORPHINE SULFATE ER 15 MG CR-TABS Take 1 tablet BID MORPHINE SULFATE 22394294406 Active Bismark Landa MD Active GABAPENTIN 600 MG TABS 1 by mouth QID GABAPENTIN 31676900873 Active Bismark Landa MD Active CLARITHROMYCIN 500 MG TABS by mouth twice a day CLARITHROMYCIN 89252858223 No Longer Active Bismark Landa MD Active TRAZODONE HCL 100 MG TABS 1/2- 1 at bedtime TRAZODONE HCL 37353385496 No Longer Active Bismark Landa MD Active AMOXICILLIN 500 MG TABS 2 by mouth daily AMOXICILLIN 13383884133 No Longer Active Bismark Landa MD Active HYDROCODONE-ACETAMINOPHEN 7.5-325 MG TABS 1 by mouth every 6 hours as needed HYDROCODONE-ACETAMINOPHEN 49119635865 No Longer Active Bismark Landa MD Active HYDROCHLOROTHIAZIDE 25 MG TABS Take one by mouth daily HYDROCHLOROTHIAZIDE 72215427952 No Longer Active Bismark Landa MD Active VERAPAMIL HCL CR 240 MG CR-TABS Take one by mouth daily VERAPAMIL HCL 82788225138 No Longer Active Bismark Landa MD Active HYDROCODONE-ACETAMINOPHEN 10-325 MG TABS take at bedtime HYDROCODONE-ACETAMINOPHEN 46441875912 No Longer Active Bismark Landa MD Active SUCRALFATE 1 GM TABS Take one by mouth four times daily, morning, noon, early evening and bedtime. SUCRALFATE 87031862313 No Longer Active Bismark Landa MD Active KLOR-CON 10 10 MEQ CR-TABS Take one by mouth daily POTASSIUM CHLORIDE 90001481998 No Longer Active Bismark Landa MD Active METOLAZONE 5 MG TABS Take one by mouth daily METOLAZONE 42873464126 No Longer Active Bismark Landa MD Active TEMAZEPAM 30 MG CAPS Take 1 tablet at bed time. TEMAZEPAM 07457224908 Active Bismark Landa MD Active CYCLOBENZAPRINE HCL 10 MG TABS Take one by mouth daily CYCLOBENZAPRINE HCL 31392710626 Active Arnold Ibarra MD Active ATENOLOL 50 MG TABS 1 1/2 daily ATENOLOL 80876723546 Active Arnold Ibarra MD Active PROMETHAZINE HCL 25 MG TABS 1 tab by mouth every 6 hours as needed for nausea/ vomiting PROMETHAZINE HCL 35607074082 Active Arnold Ibarra MD Active METOLAZONE 5 MG TABS Take one by mouth daily METOLAZONE 5 MG TABS 690979 METOLAZONE Inactive KLOR-CON 10 10 MEQ CR-TABS Take one by mouth daily KLOR-CON 10 10 MEQ CR-TABS POTASSIUM CHLORIDE Inactive SUCRALFATE 1 GM TABS Take one by mouth four times daily, morning, noon, early evening and bedtime. SUCRALFATE 1 GM TABS 083117 SUCRALFATE Inactive HYDROCODONE-ACETAMINOPHEN 10-325 MG TABS take at bedtime HYDROCODONE-ACETAMINOPHEN 10-325 MG TABS 463149 HYDROCODONE-ACETAMINOPHEN Inactive VERAPAMIL HCL CR 240 MG CR-TABS Take one by mouth daily VERAPAMIL HCL CR 240 MG CR-TABS VERAPAMIL HCL Inactive HYDROCHLOROTHIAZIDE 25 MG TABS Take one by mouth daily HYDROCHLOROTHIAZIDE 25 MG TABS 738495 HYDROCHLOROTHIAZIDE Inactive HYDROCODONE-ACETAMINOPHEN 7.5-325 MG TABS 1 by mouth every 6 hours as needed HYDROCODONE-ACETAMINOPHEN 7.5-325 MG TABS 594635 HYDROCODONE-ACETAMINOPHEN Inactive AMOXICILLIN 500 MG TABS 2 by mouth daily AMOXICILLIN 500 MG TABS 237874 AMOXICILLIN Inactive TRAZODONE HCL 100 MG TABS 1/2- 1 at bedtime TRAZODONE HCL 100 MG TABS 857023 TRAZODONE HCL Inactive CLARITHROMYCIN 500 MG TABS by mouth twice a day CLARITHROMYCIN 500 MG TABS 898686 CLARITHROMYCIN Inactive LANTUS 100 UNIT/ML SOLN 40 units subq at bedtime LANTUS 100 UNIT/ML SOLN INSULIN GLARGINE Inactive OMEPRAZOLE 40 MG CPDR Take one by mouth daily OMEPRAZOLE 40 MG CPDR 380665 OMEPRAZOLE Inactive CELEXA 20 MG TABS Take 1 tablet BID CELEXA 20 MG TABS 423728 CITALOPRAM HYDROBROMIDE Inactive SYNTHROID 25 MCG TABS Take 1 tablet daily SYNTHROID 25 MCG TABS 626399 LEVOTHYROXINE SODIUM Inactive PANTOPRAZOLE SODIUM 40 MG SOLR Take one by mouth daily PANTOPRAZOLE SODIUM 40 MG SOLR PANTOPRAZOLE SODIUM Inactive Encounters Code Encounter Date Provider Facility CPT-93356 Level 5 Est. Patient 13:05:17 CDT Saumya GURROLA [facility] CPT-60468 Level 4 Est. Patient 14:58:44 CDT Bismark Landa MD [facility] CPT-66950 Level 4 New Patient 15:17:54 CDT Priscila Valera MD [facility] CPT-54027 Level 2 Est. Patient 16:51:13 CDT Arnold Ibarra MD [facility] Procedures Code Procedure Name Date Entry Date Standard Description CPT-71374 Cystoscopy 15:17:54 CDT
--- NOTE | 2016-12-21 09:35 | Conscious Sedation/ASA ---
Conscious Sedation Pre-Proced Time Reviewed: 09:25 ASA Class: 3 Airway Mallampati Classification: ([place] appropriate class) I. II. III, IV Lungs Heart ASA score ASA 1: a normal healthy patient ASA 2: a patient with a mild systemic disease (mid diabetes, controlled hypertension, obesity ASA 3: a patient with a severe systemic disease that limits activity (angina , COPD, prior Myocardial infarction) ASA 4: a patient with an incapacitating disease that is a constant threat to life (CHF, renal failure) ASA 5: a moribund patient not expected to survive 24 hrs. (ruptured aneurysm) ASA 6: a declared brain patient whose organs are being harvested. For emergent operations, add the letter E after the classification Grade 3 Sedation Plan: Analgesia, Amnesia, Plan communicated to team members, Discussed options with patient/fam, Discussed risks with patient/fam Note The patient is an appropriate candidate to undergo the planned procedure, sedation, and anesthesia. The patient immediately re-assessed prior to indication. AMY REYNA MD Dec 21, 2016 9:35 am
--- NOTE | 2016-12-21 09:35 | Progress Note-Pre Operative ---
Pre-Operative Progress Note H&P Reviewed The H&P was reviewed, patient examined and no changes noted. Date Seen by Provider: Dec 21, 2016 Time Seen by Provider: :25 Date H&P Reviewed: Dec 21, 2016 Time H&P Reviewed: : Pre-Operative Diagnosis: dysphagia, abd pain, rectal bleed AMY REYNA MD Dec 21, 2016 9:35 am
[2016-12-21] MEDS: fentaNYL INJECTION 100 MCG/2 ML AMP IVP PRN ×2 (13:01→13:05)
[2016-12-21] MEDS: MIDAZOLAM 2 MG/2 ML (VERSED) VIAL IVP PRN ×4 (13:02→13:10)
--- NOTE | 2016-12-21 13:57 | Progress Note-Post Operative ---
Post-Operative Progess Note Surgeon (s)/Money Order Clerk (s) Surgeon AMY REYNA MD Money Order Clerk: none Pre-Operative Diagnosis dysphagia, abd pain, rectal bleed Post-Operative Diagnosis reflux esophagitis(class B), small HH(<1cm), moderate-severe gastritis with small antral ulcer. chronic stage 2 ext and int hemorrhoids. Procedure & Operative Findings Date of Procedure 12/21/16 Procedure Performed/Findings EGD with bx. Colonoscopy. Anesthesia Type MAC Estimated Blood Loss Estimated blood loss (mL): minimal Specimens/Packing Specimens Removed GE jxn, antral ulcer. AMY REYNA MD Dec 21, 2016 1:57 pm
--- NOTE | 2016-12-21 13:59 | Discharge Inst-Surgical ---
D/C Lap Instructions-KIDO New, Converted, or Re-Newed RX: RX on Chart Follow Up PRN Activity as tolerated High Fiber Diet 25g or more per day Avoid Alcohol, Caffeine, Spicy [place] and Acid foods. Drink 64 fluid oz or more of fluids per day. Symptoms to Report: Fever over 101 degree F, Nausea/Vomiting If any problems/questions: Contact your physician or go to Emergency Room AMY REYNA MD Dec 21, 2016 1:59 pm
[2016-12-21 14:10] VITALS: BP 115/74
--- NOTE | 2016-12-21 14:12 | Anesthesia-Procedure Note ---
Procedure Start/Stop Time Date of Procedure: Dec 21, 2016 Start Time: 13:17 Stop Time: 13:47 Procedures/Interventions Procedures Called to endoscopy suite to sedate patient after failed conscious sedation. Patient had received 8mg versed and 100 mcg fentanyl prior to arrival. The chart was reviewed including relevant history, medications and drug allergies. Patient is an ASA 3. A total of 500mg of propofol was given throughout the procedure and the airway and ventilations were maintained. See nurses notes for vital signs. Patient tolerated well and was responding to verbal stimuli. Report was given to the cloth bolt bander and care was returned. CAMILLE HOPKINS CRNA Dec 21, 2016 14:12
[2016-12-21 14:30] VITALS: BP 125/88
[2016-12-21 14:40] VITALS: BP 125/88
== END | disposition home or self-care (01) ==
LOC: ENDO 08:06
PROVIDERS: ATTEND Surgery
DX: K21.0 Gastro-esophageal reflux disease with esophagitis (principal); K64.2 Third degree hemorrhoids; K44.9 Diaphragmatic hernia without obstruction or gangrene; K29.70 Gastritis, unspecified, without bleeding; K25.9 Gastric ulcer, unspecified as acute or chronic, without hemorrhage or perforation; I50.9 Heart failure, unspecified; E11.9 Type 2 diabetes mellitus without complications; M79.7 Fibromyalgia; E03.9 Hypothyroidism, unspecified; F32.9 Major depressive disorder, single episode, unspecified; F41.9 Anxiety disorder, unspecified; Z79.899 Other long term (current) drug therapy
CPT/HCPCS: 82962

== ENCOUNTER → 2017-02-17 | Outpatient (CLI) | payer MEDICAID ==
[~2017-02-17] MED LIST changes: -FLUMAZENIL (ROMAZICON) 0.1 MG/ML 5 ML VIAL INJ PRN; -HURRICAINE EXT TUBE (BENZOCAINE) ONE; -HURRICAINE EXT TUBE (BENZOCAINE) XX PRN; -LIDOCAINE JELLY 2% (XYLOCAINE) 5 ML TUBE MM PRN; -LIDOCAINE JELLY 2% (XYLOCAINE) 5 ML TUBE ONE; +LOSA1TAB23 PO; -LOSA1TAB70 PO; -MIDAZOLAM 2 MG/2 ML (VERSED) VIAL ONE; -NALOXONE 0.4 MG/ML 1 ML (NARCAN) VIAL IVP PRN; -NAPR500T3 PO; +NAPR500T4 PO; -NS IV 500 ML 500 ML IV PRN; -NS IV 500 ML 500 ML ONE; -ONDANSETRON 4 MG/2 ML (SDV) Z0FRAN IV PRN; -PROMETHAZINE INJ 25 MG/ML (PHENERGAN) AMP IVP PRN; -PROMETHAZINE INJ 25 MG/ML (PHENERGAN) AMP ONE; -fentaNYL INJECTION 100 MCG/2 ML AMP ONE; -morphine INJ 10 MG/ML 1ML (SYR OR VIAL) IV PRN; -proPOfol 200 MG/20 ML (DIPRIVAN) VIAL IV ONE
--- NOTE | 2017-02-17 16:17 | Diagnostic Imaging Report ---
PROCEDURE: MR imaging abdomen without contrast. TECHNIQUE: Multiplanar, multisequence MR imaging of the abdomen was performed without contrast. INDICATION: Abdominal pain. There are no previous MRI examinations available for comparison. The CT abdomen/pelvis exam of 07/16/16 failed to show any sign of an acute abnormality. FINDINGS: On this study, the liver is homogeneous. There is no focal mass involving the liver and the biliary tree is not dilated. The liver does not appear to be enlarged and the liver seems similar in appearance to the prior CT exam. The spleen, pancreas, adrenals, kidneys, aorta and inferior vena cava show no sign of an acute abnormality. As noted on the prior exam, the gallbladder is surgically absent. The common bile duct is not abnormally distended. The stomach is filled with fluid and consequently difficult to assess. There is no mass or free fluid collection noted. The lung bases are clear. There is no abnormal signal arising from the osseous structures to suggest an acute abnormality. IMPRESSION: 1. There is no acute abnormality of the abdomen. 2. The liver is homogeneous and appears similar to the prior exam. 3. The gallbladder is surgically absent. The common bile duct is not dilated. Dictated by: Dictated on workstation # [id number]
== END ==
LOC: RAD 13:53
PROVIDERS: ATTEND Internal Medicine Gastroenterology
DX: R10.9 Unspecified abdominal pain (principal); R19.7 Diarrhea, unspecified; R11.2 Nausea with vomiting, unspecified; Z90.49 Acquired absence of other specified parts of digestive tract
CPT/HCPCS: 36415; 74181; 85652; 86141

== ENCOUNTER → 2017-02-21 | Outpatient (CLI) | payer MEDICAID ==
[~2017-02-21] MED LIST changes: -LOSA1TAB23 PO; +LOSA1TAB70 PO; +NAPR500T3 PO; -NAPR500T4 PO
[2017-02-21 13:39] LABS: BASOPHILS # (AUTO) 0.1 10^3/uL (0.0-0.1); BASOPHILS % (AUTO) 1 % (0-10); EOSINOPHILS # (AUTO) 0.2 10^3/uL (0.0-0.3); EOSINOPHILS % (AUTO) 2 % (0-10); LYMPHOCYTES # (AUTO) 4.1 X 10^3 (1.0-4.0); LYMPHOCYTES % (AUTO) 36 % (12-44); MEAN CORPUSCULAR HEMOGLOBIN 29 PG (25-34); MEAN CORPUSCULAR HGB CONC 34 G/DL (32-36); MEAN CORPUSCULAR VOLUME 86 FL (80-99); MEAN PLATELET VOLUME 10.1 FL (7.4-10.4); MONOCYTES # (AUTO) 0.7 X 10^3 (0.0-1.0); MONOCYTES % (AUTO) 6 % (0-12); NEUTROPHILS # (AUTO) 6.4 X 10^3 (1.8-7.8); NEUTROPHILS % (AUTO) 56 % (42-75); PLATELET COUNT 402 10^3/uL (130-400); RED BLOOD COUNT 4.66 10^6/uL (4.35-5.85); RED CELL DISTRIBUTION WIDTH 12.5 % (10.0-14.5); WHITE BLOOD COUNT 11.4 10^3/uL (4.3-11.0)
[2017-02-21 13:59] LABS: ALBUMIN 4.5 GM/DL (3.2-4.5); BILIRUBIN,TOTAL 0.6 MG/DL (0.1-1.0); CALCIUM 9.6 MG/DL (8.5-10.1); CREATININE SERUM 1.37 MG/DL (0.60-1.30); POTASSIUM 3.1 MMOL/L (3.6-5.0); TOTAL PROTEIN 8.1 GM/DL (6.4-8.2)
== END ==
LOC: LAB 13:15
PROVIDERS: ATTEND Nurse Practitioner Family
DX: N18.3 Chronic kidney disease, stage 3 (moderate) (principal); I50.9 Heart failure, unspecified
CPT/HCPCS: 36415; 80053; 83880; 85025

== ENCOUNTER → 2017-02-23 | Outpatient (CLI) | payer MEDICAID ==
[~2017-02-23] MED LIST changes: +LOSA1TAB23 PO; -LOSA1TAB70 PO; -NAPR500T3 PO; +NAPR500T4 PO
[2017-02-23 14:49] LABS: CALCIUM 9.2 MG/DL (8.5-10.1); CREATININE SERUM 1.35 MG/DL (0.60-1.30); POTASSIUM 3.3 MMOL/L (3.6-5.0)
== END ==
LOC: LAB 14:16
PROVIDERS: ATTEND Nurse Practitioner Family
DX: E11.43 Type 2 diabetes mellitus with diabetic autonomic (poly)neuropathy (principal); I50.9 Heart failure, unspecified
CPT/HCPCS: 36415; 80048

== ENCOUNTER → 2017-02-24 | Outpatient (CLI) | payer MEDICAID ==
[~2017-02-24] MED LIST changes: -LOSA1TAB23 PO; +LOSA1TAB70 PO; +NAPR500T3 PO; -NAPR500T4 PO
[2017-02-24 14:48] LABS: ALBUMIN 4.1 GM/DL (3.2-4.5); BILIRUBIN,TOTAL 0.5 MG/DL (0.1-1.0); CALCIUM 8.9 MG/DL (8.5-10.1); CREATININE SERUM 1.93 MG/DL (0.60-1.30); TOTAL PROTEIN 7.5 GM/DL (6.4-8.2)
== END ==
LOC: LAB 14:09
PROVIDERS: ATTEND Physician Assistant
DX: I10 Essential (primary) hypertension (principal); E78.2 Mixed hyperlipidemia
CPT/HCPCS: 36415; 80053; 80061

== ENCOUNTER 2017-03-15 23:42 | Emergency (ER) | payer MEDICAID ==
[~2017-03-15] VITALS: Ht 157.5 cm; Wt 116.1 kg
--- OUTSIDE RECORDS SUMMARY | 2017-03-15 23:50 | XMS REPORT | Clinical Summary ---
Author Author [facility] Organization [facility] Address Unknown Phone Unavailable Care Team Providers Care Brake Holder Name Role Phone PCP Unavailable Source Comments Some departments are not documenting in the electronic medical record. If you do not see the information that you expected, contact Release of Information in the Health Information Management department at [phone] for further assistance in locating additional records.[facility] Allergies Not on File Current Medications Not on file Active Problems Not on file Social History Tobacco Use Types Packs/Day Years Used Date Never Assessed Sex Assigned at Date Recorded Not on file Last Filed Vital Signs Not on file Plan of Treatment Health Maintenance Due Date Last Done Comments PHYSICAL (COMPREHENSIVE) 1976 EXAM PERTUSSIS VACCINE 1980 TETANUS VACCINE 1986 CERVICAL CANCER SCREENING 09/01/1999 BREAST CANCER SCREENING 2009 INFLUENZA VACCINE 03/26/2017 Results Not on filefrom Last 3 Months
--- OUTSIDE RECORDS SUMMARY | 2017-03-15 23:50 | XMS REPORT ---
Author Author MIRZA MARTINO [facility] Address [address] [place] [address] Care Team Providers Care Tanning Solution Maker Name Role Phone MIRZA MARTINO Unavailable PROBLEMS Type Condition ICD9-CM Code [id number] Code Onset Dates Condition Status SNOMED Code Problem Primary insomnia F51.01 Active 4422696 Problem Chronic pain syndrome G89.4 Active 262139418 Problem Recurrent major depressive disorder, remission status unspecified F33.9 Active 32051767 Problem Screening breast examination Z12.39 Active 468956380 Problem 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 Active 779568053 Problem Tobacco abuse Z72.0 Active 421734937 Problem Severe episode of recurrent major depressive disorder, without 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 Active 64394164 Problem Anxiety, generalized F41.1 Active 77711080 Problem Weakness R53.1 Active 08171690 Problem Swelling of mandible R22.0 Active 953889637 Problem Vaginal bleeding N93.9 Active 535287760 Problem Seizure disorder G40.909 Active 452302407 Problem Chronic nausea R11.0 Active 915755341 Problem Chronic superficial gastritis without bleeding K29.30 Active 223255818 Problem Unspecified fall W19.XXXA Active 5151064 Problem Self-inflicted injury Z72.89 Active 382912357 Problem Chronic congestive heart failure, unspecified congestive heart failure type I50.9 Active 61771945 Problem Edema of both legs R60.0 Active 682932777 Problem Type 2 diabetes mellitus with diabetic polyneuropathy E11.42 Active 08798072 Problem Noncompliance with diabetes treatment Z91.19 Active 8080174 Problem Congestive heart failure, unspecified congestive heart failure chronicity, unspecified congestive heart failure type I50.9 Active 43248977 Problem Right lower quadrant abdominal pain R10.31 Active 348162275 Problem Port catheter in place Z95.828 Active 899365807 Problem Diarrhea, unspecified type R19.7 Active 60754013 Problem Stage 3 chronic kidney disease N18.3 Active 920487332 Problem Gastritis determined by endoscopy K29.70 Active 2118438 Problem Blister (nonthermal), right foot, initial encounter S90.821A Active 804510564 Problem Unspecified abdominal pain R10.9 Active 382323012 Problem Gastroparesis K31.84 Active 065567832 Problem Syncope, unspecified syncope type R55 Active 273127136 Problem Type 2 diabetes mellitus with diabetic autonomic (poly)neuropathy E11.43 Active 719392051 Problem Neck pain M54.2 Active 43473019 Problem Anxiety F41.9 Active 34118630 Problem Swelling of both lower extremities M79.89 Active 28989561537407230 Problem Epigastric pain R10.13 Active 22828265 Problem Thrush B37.0 Active 51403061 Problem Acquired hypothyroidism E03.9 Active 776917927 Problem Acute non-recurrent maxillary sinusitis J01.00 Active 47301848 Problem Essential hypertension I10 Active 46443492 Problem Seasonal allergic rhinitis, unspecified allergic rhinitis trigger J30.2 Active 163116223 Problem Acute pain of right shoulder M25.511 Active 10917739 Problem Postural hypotension I95.1 Active 65244552 ALLERGIES Unknown Allergies SOCIAL HISTORY No smoking Hx information available PLAN OF CARE VITAL SIGNS MEDICATIONS Medication Instructions Dosage Frequency Start Date End Date Duration Status Chantix 0.5 MG Orally Twice a day 1 tablet 12h 16 Apr, 2016 30 day(s) Active RESULTS No Results PROCEDURES No Known procedures IMMUNIZATIONS No Known Immunizations
--- OUTSIDE RECORDS SUMMARY | 2017-03-15 23:52 | XMS REPORT ---
Author Author MIRZA MARTINO [facility] Address [address] [place] [address] Care Team Providers Care Licensed Final Expense Agents Name Role Phone MIRZA MARTINO Unavailable PROBLEMS Type Condition ICD9-CM Code QXZ20-OS Code Onset Dates Condition Status SNOMED Code Problem Chronic pain syndrome G89.4 Active 866425772 Problem Type 2 diabetes mellitus with diabetic autonomic (poly)neuropathy E11.43 Active 679987607 Problem Screening breast examination Z12.39 Active 816225726 Problem Primary insomnia F51.01 Active 3845620 Problem Recurrent major depressive disorder, remission status unspecified F33.9 Active 34560820 Problem care home 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 Active 656832945 Problem Tobacco abuse Z72.0 Active 639908629 Problem Severe episode of recurrent major depressive disorder, without 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 Active 71207037 Problem Anxiety, generalized F41.1 Active 09626275 Problem Seasonal allergic rhinitis, unspecified allergic rhinitis trigger J30.2 Active 790401427 Problem Weakness R53.1 Active 73931640 Problem Swelling of mandible R22.0 Active 389108380 Problem Vaginal bleeding N93.9 Active 794091699 Problem Seizure disorder G40.909 Active 286397249 Problem Self-inflicted injury Z72.89 Active 826122928 Problem Chronic superficial gastritis without bleeding K29.30 Active 093795420 Problem Blister (nonthermal), right foot, initial encounter S90.821A Active 289999328 Problem Edema of both legs R60.0 Active 789623072 Problem Noncompliance with diabetes treatment Z91.19 Active 1059720 Problem Right lower quadrant abdominal pain R10.31 Active 456281312 Problem Port catheter in place Z95.828 Active 981655205 Problem Chronic nausea R11.0 Active 880469200 Problem Stage 3 chronic kidney disease N18.3 Active 181441426 Problem Unspecified abdominal pain R10.9 Active 549891990 Problem Unspecified fall W19.XXXA Active 5151775 Problem Diarrhea, unspecified type R19.7 Active 09037347 Problem Gastritis determined by endoscopy K29.70 Active 8556454 Problem Epigastric pain R10.13 Active 05928190 Problem Thrush B37.0 Active 20794037 Problem Gastroparesis K31.84 Active 075178890 Problem Syncope, unspecified syncope type R55 Active 072895771 Problem Essential hypertension I10 Active 03708436 Problem Type 2 diabetes mellitus with diabetic polyneuropathy E11.42 Active 92210302 Problem Anxiety F41.9 Active 65585665 Problem Swelling of both lower extremities M79.89 Active 69371262160860695 Problem Congestive heart failure, unspecified congestive heart failure chronicity, unspecified congestive heart failure type I50.9 Active 30356521 Problem Postural hypotension I95.1 Active 47198327 Problem Acquired hypothyroidism E03.9 Active 839411439 Problem Acute non-recurrent maxillary sinusitis J01.00 Active 92037399 Problem Neck pain M54.2 Active 31935843 Problem Acute pain of right shoulder M25.511 Active 23175419 ALLERGIES Unknown Allergies SOCIAL HISTORY No smoking Hx information available PLAN OF CARE VITAL SIGNS MEDICATIONS Unknown Medications RESULTS No Results PROCEDURES No Known procedures IMMUNIZATIONS No Known Immunizations
--- OUTSIDE RECORDS SUMMARY | 2017-03-15 23:52 | XMS REPORT ---
Author Author MIRZA MARTINO [facility] Address [address] [place] [address] Care Team Providers Care Veneer Stock Layer Name Role Phone MIRZA MARTINO Unavailable PROBLEMS Type Condition ICD9-CM Code CDD86-CH Code Onset Dates Condition Status SNOMED Code Problem Type 2 diabetes mellitus with diabetic autonomic (poly)neuropathy E11.43 Active 148659936 Problem Congestive heart failure, unspecified congestive heart failure chronicity, unspecified congestive heart failure type I50.9 Active 52355403 Problem Screening breast examination Z12.39 Active 575088272 Problem Primary insomnia F51.01 Active 3795696 Problem Recurrent major depressive disorder, remission status unspecified F33.9 Active 32629283 Problem alf 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 Active 094364362 Problem Tobacco abuse Z72.0 Active 139898952 Problem Severe episode of recurrent major depressive disorder, without 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 Active 36042977 Problem Anxiety, generalized F41.1 Active 91596171 Problem Seasonal allergic rhinitis, unspecified allergic rhinitis trigger J30.2 Active 238453627 Problem Weakness R53.1 Active 69237635 Problem Seizure disorder G40.909 Active 503737762 Problem Vaginal bleeding N93.9 Active 597681071 Problem Swelling of mandible R22.0 Active 279192320 Problem Chronic superficial gastritis without bleeding K29.30 Active 058617358 Problem Self-inflicted injury Z72.89 Active 235087892 Problem Edema of both legs R60.0 Active 227728652 Problem Blister (nonthermal), right foot, initial encounter S90.821A Active 432699405 Problem Swelling of both lower extremities M79.89 Active 65976489527185263 Problem Right lower quadrant abdominal pain R10.31 Active 156160619 Problem Port catheter in place Z95.828 Active 576416739 Problem Chronic nausea R11.0 Active 183675697 Problem Stage 3 chronic kidney disease N18.3 Active 864149110 Problem Unspecified abdominal pain R10.9 Active 040010350 Problem Unspecified fall W19.XXXA Active 9753061 Problem Gastritis determined by endoscopy K29.70 Active 4008657 Problem Diarrhea, unspecified type R19.7 Active 57381686 Problem Acquired hypothyroidism E03.9 Active 255385697 Problem Thrush B37.0 Active 82153931 Problem Essential hypertension I10 Active 29593050 Problem Neck pain M54.2 Active 84556465 Problem Epigastric pain R10.13 Active 22463911 Problem Noncompliance with diabetes treatment Z91.19 Active 4461714 Problem Chronic pain syndrome G89.4 Active 870303026 Problem Type 2 diabetes mellitus with diabetic polyneuropathy E11.42 Active 77219093 Problem Anxiety F41.9 Active 17024337 Problem Postural hypotension I95.1 Active 75778441 Problem Gastroparesis K31.84 Active 273238166 Problem Acute non-recurrent maxillary sinusitis J01.00 Active 85178145 Problem Acute pain of right shoulder M25.511 Active 76091302 Problem Syncope, unspecified syncope type R55 Active 026382485 ALLERGIES Unknown Allergies SOCIAL HISTORY No smoking Hx information available PLAN OF CARE VITAL SIGNS MEDICATIONS Unknown Medications RESULTS No Results PROCEDURES No Known procedures IMMUNIZATIONS No Known Immunizations
--- OUTSIDE RECORDS SUMMARY | 2017-03-15 23:53 | XMS REPORT ---
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 Active 590639704 Problem Tobacco abuse Z72.0 Active 548470694 Problem Severe episode of recurrent major depressive disorder, without 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 Active 49316727 Problem Anxiety, generalized F41.1 Active 33337938 Problem Weakness R53.1 Active 50055977 Problem Swelling of mandible R22.0 Active 187108406 Problem Vaginal bleeding N93.9 Active 464419834 Problem Seizure disorder G40.909 Active 562444841 Problem Chronic nausea R11.0 Active 338318651 Problem Chronic superficial gastritis without bleeding K29.30 Active 838592293 Problem Unspecified fall W19.XXXA Active 0496914 Problem Self-inflicted injury Z72.89 Active 885650393 Problem Chronic congestive heart failure, unspecified congestive heart failure type I50.9 Active 74043434 Problem Edema of both legs R60.0 Active 718605741 Problem Type 2 diabetes mellitus with diabetic polyneuropathy E11.42 Active 05062838 Problem Noncompliance with diabetes treatment Z91.19 Active 1133137 Problem Congestive heart failure, unspecified congestive heart failure chronicity, unspecified congestive heart failure type I50.9 Active 47427619 Problem Right lower quadrant abdominal pain R10.31 Active 694367231 Problem Port catheter in place Z95.828 Active 404473102 Problem Diarrhea, unspecified type R19.7 Active 32200214 Problem Stage 3 chronic kidney disease N18.3 Active 454775760 Problem Gastritis determined by endoscopy K29.70 Active 1995983 Problem Blister (nonthermal), right foot, initial encounter S90.821A Active 803014346 Problem Unspecified abdominal pain R10.9 Active 175988160 Problem Gastroparesis K31.84 Active 354581032 Problem Syncope, unspecified syncope type R55 Active 409474758 Problem Type 2 diabetes mellitus with diabetic autonomic (poly)neuropathy E11.43 Active 820632900 Problem Neck pain M54.2 Active 66136636 Problem Anxiety F41.9 Active 11994987 Problem Swelling of both lower extremities M79.89 Active 21783715239976816 Problem Epigastric pain R10.13 Active 71002185 Problem Thrush B37.0 Active 11972093 Problem Acquired hypothyroidism E03.9 Active 143179329 Problem Acute non-recurrent maxillary sinusitis J01.00 Active 83461323 Problem Essential hypertension I10 Active 23593956 Problem Seasonal allergic rhinitis, unspecified allergic rhinitis trigger J30.2 Active 922712519 Problem Acute pain of right shoulder M25.511 Active 21492315 Problem Postural hypotension I95.1 Active 90663551 ALLERGIES Unknown Allergies SOCIAL HISTORY No smoking Hx information available PLAN OF CARE VITAL SIGNS MEDICATIONS Unknown Medications RESULTS No Results PROCEDURES No Known procedures IMMUNIZATIONS No Known Immunizations
--- OUTSIDE RECORDS SUMMARY | 2017-03-15 23:53 | XMS REPORT ---
Author Author JENNIFER CONDON Organization [facility] Address [address] [place] [address] Care Team Providers Care Hospital Television Rental Clerk Name Role Phone CONDONJENNIFER Acosta Unavailable PROBLEMS Type Condition ICD9-CM Code XSE49-IW Code Onset Dates Condition Status SNOMED Code Problem Primary insomnia F51.01 Active 8818899 Problem Chronic pain syndrome G89.4 Active 587199797 Problem Recurrent major depressive disorder, remission status unspecified F33.9 Active 02050145 Problem Screening breast examination Z12.39 Active 539585066 Problem 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 Active 946327478 Problem Tobacco abuse Z72.0 Active 539452216 Problem Severe episode of recurrent major depressive disorder, without 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 Active 24549992 Problem Anxiety, generalized F41.1 Active 49507128 Problem Weakness R53.1 Active 05944174 Problem Swelling of mandible R22.0 Active 425868928 Problem Vaginal bleeding N93.9 Active 242109118 Problem Seizure disorder G40.909 Active 045119245 Problem Chronic nausea R11.0 Active 362142355 Problem Chronic superficial gastritis without bleeding K29.30 Active 882617509 Problem Unspecified fall W19.XXXA Active 5544668 Problem Self-inflicted injury Z72.89 Active 209205058 Problem Chronic congestive heart failure, unspecified congestive heart failure type I50.9 Active 82352175 Problem Edema of both legs R60.0 Active 399805848 Problem Type 2 diabetes mellitus with diabetic polyneuropathy E11.42 Active 06730088 Problem Noncompliance with diabetes treatment Z91.19 Active 8762973 Problem Congestive heart failure, unspecified congestive heart failure chronicity, unspecified congestive heart failure type I50.9 Active 83998338 Problem Right lower quadrant abdominal pain R10.31 Active 346037325 Problem Port catheter in place Z95.828 Active 855334716 Problem Diarrhea, unspecified type R19.7 Active 21535192 Problem Stage 3 chronic kidney disease N18.3 Active 987439927 Problem Gastritis determined by endoscopy K29.70 Active 0492526 Problem Blister (nonthermal), right foot, initial encounter S90.821A Active 519022654 Problem Unspecified abdominal pain R10.9 Active 679631869 Problem Gastroparesis K31.84 Active 941655651 Problem Syncope, unspecified syncope type R55 Active 189462394 Problem Type 2 diabetes mellitus with diabetic autonomic (poly)neuropathy E11.43 Active 061760010 Problem Neck pain M54.2 Active 96503194 Problem Anxiety F41.9 Active 91054110 Problem Swelling of both lower extremities M79.89 Active 71609979861148165 Problem Epigastric pain R10.13 Active 56412723 Problem Thrush B37.0 Active 16157002 Problem Acquired hypothyroidism E03.9 Active 350784483 Problem Acute non-recurrent maxillary sinusitis J01.00 Active 83145365 Problem Essential hypertension I10 Active 81730290 Problem Seasonal allergic rhinitis, unspecified allergic rhinitis trigger J30.2 Active 129741304 Problem Acute pain of right shoulder M25.511 Active 82588567 Problem Postural hypotension I95.1 Active 58947555 ALLERGIES Substance Reaction Event Type Date Status Compazine Unknown Drug Allergy Jun, Active Zofran Unknown Drug Allergy Jun, Active Tizanidine HCl seizure Drug Allergy Jun, Active Sulfamethoxazole-Trimethoprim Unknown Drug Allergy Jun, Active Metoclopramide HCl Unknown Drug Allergy Jun, Active Iodine Unknown Drug Allergy Jun, Active Hydrocodone-Acetaminophen Unknown Drug Allergy Jun, Active Codeine Sulfate Unknown Drug Allergy Jun, Active Acetaminophen Unknown Drug Allergy Jun, Active IV Dye Unknown Non Drug Allergy Jun, Active SOCIAL HISTORY No smoking Hx information available PLAN OF CARE Activity Details Follow Up prn Reason: VITAL SIGNS Height 62 in 2016-07-16 Weight 254.8 lbs 2016-07-16 Temperature 98.3 degrees Fahrenheit 2016-07-16 Heart Rate 80 bpm 2016-07-16 Respiratory Rate 20 2016-07-16 BMI 46.60 kg/m2 2016-07-16 Blood pressure systolic 126 mmHg 2016-07-16 Blood pressure diastolic 78 mmHg 2016-07-16 MEDICATIONS Medication Instructions Dosage Frequency Start Date End Date Duration Status Escitalopram Oxalate 20 mg Orally Once a day 1 tablet 24h 30 Active Losartan Potassium-HCTZ 100-25 MG Orally Once a day 1 tablet 24h Active Temazepam 30 MG Orally Once a day 1 capsule at bedtime as needed 24h Active Furosemide 20 mg Orally Once a day 1 tablet 24h Active Insulin Syringe 31G X 5/16 Active Nystatin 474030 UNIT/ML Mouth/Throat Four times a day 4 ml 6h 12 Mar, 2016 Active Promethazine HCl 25 MG Orally 2 times a day 1 tablet as needed 12h 7 Aug 28 days Active Zantac 150 MG Orally twice a day 1 tablet 12h 30 day(s) Active Oxygen 3L nasal canal Active Gabapentin 800 MG Orally 4 times a day 1 tablet 6h Active Naproxen 500 MG Orally every 12 hrs 1 tablet as needed 12h Jun, 7 Jul, 2016 28 days Active Alprazolam 1 MG Orally Three times a day must last 28 days 1 tablet Active Seroquel XR 50MG TAKE TWO TABLETS BY MOUTH ONCE DAILY AT BEDTIME 28 Active Humulin R U-500 (Concentrated) 500 UNIT/ML Subcutaneous 3 times a day with meals 45 units or per sliding scale Active Atenolol 50 mg Orally Once a day 2 tablet 24h Active Diflucan 150 MG Orally one time 1 tablet today and repeat in 10 days May, Active Nystatin 216253 UNIT/GM Externally Twice a day apply to abdominal fold twice a day 12h Active Chantix 0.5 MG Orally Twice a day 1 tablet 12h Apr, 30 day(s) Active Levothyroxine Sodium 75 MCG Orally Once a day 1 tablet 24h Active Pantoprazole Sodium 40 mg Orally Once a day 1 tablet 24h Active Luis Fernando Contour Test - In Vitro 3 times a day as directed 8h Jan, Active RESULTS No Results PROCEDURES Procedure Date Ordered Related Diagnosis Body Site URINALYSIS, AUTO, W/O SCOPE Jul 16, 2016 Office Visit, Est Pt., Level 3 Jul 16, 2016 GLUCOSE BLOOD TEST Jul 16, 2016 IMMUNIZATIONS No Known Immunizations
--- OUTSIDE RECORDS SUMMARY | 2017-03-15 23:54 | XMS REPORT ---
Author Author MIRZA MARTINO [facility] Address [address] [place] [address] Care Team Providers Care Senior Pharmacy Technician Name Role Phone MIRZA MARTINO Unavailable PROBLEMS Type Condition ICD9-CM Code [id number] Code Onset Dates Condition Status SNOMED Code Problem Type 2 diabetes mellitus with diabetic autonomic (poly)neuropathy E11.43 Active 406008621 Problem Congestive heart failure, unspecified congestive heart failure chronicity, unspecified congestive heart failure type I50.9 Active 36214241 Problem Screening breast examination Z12.39 Active 038645160 Problem Primary insomnia F51.01 Active 1521805 Problem Recurrent major depressive disorder, remission status unspecified F33.9 Active 52201781 Problem 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 Active 013469103 Problem Tobacco abuse Z72.0 Active 879854969 Problem Severe episode of recurrent major depressive disorder, without 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 Active 52963726 Problem Anxiety, generalized F41.1 Active 62574227 Problem Seasonal allergic rhinitis, unspecified allergic rhinitis trigger J30.2 Active 570965764 Problem Weakness R53.1 Active 29980149 Problem Seizure disorder G40.909 Active 439861148 Problem Vaginal bleeding N93.9 Active 810133261 Problem Swelling of mandible R22.0 Active 505383309 Problem Chronic superficial gastritis without bleeding K29.30 Active 096264491 Problem Self-inflicted injury Z72.89 Active 021847922 Problem Edema of both legs R60.0 Active 043700321 Problem Blister (nonthermal), right foot, initial encounter S90.821A Active 827252060 Problem Swelling of both lower extremities M79.89 Active 30141480963139833 Problem Right lower quadrant abdominal pain R10.31 Active 113024649 Problem Port catheter in place Z95.828 Active 147119839 Problem Chronic nausea R11.0 Active 803033978 Problem Stage 3 chronic kidney disease N18.3 Active 167953801 Problem Unspecified abdominal pain R10.9 Active 637325489 Problem Unspecified fall W19.XXXA Active 2524196 Problem Gastritis determined by endoscopy K29.70 Active 0038709 Problem Diarrhea, unspecified type R19.7 Active 47326092 Problem Acquired hypothyroidism E03.9 Active 208134228 Problem Thrush B37.0 Active 99607997 Problem Essential hypertension I10 Active 02698928 Problem Neck pain M54.2 Active 93954234 Problem Epigastric pain R10.13 Active 95169973 Problem Noncompliance with diabetes treatment Z91.19 Active 0835523 Problem Chronic pain syndrome G89.4 Active 096623223 Problem Type 2 diabetes mellitus with diabetic polyneuropathy E11.42 Active 64420321 Problem Anxiety F41.9 Active 49711134 Problem Postural hypotension I95.1 Active 60029081 Problem Gastroparesis K31.84 Active 060398181 Problem Acute non-recurrent maxillary sinusitis J01.00 Active 72201903 Problem Acute pain of right shoulder M25.511 Active 15010600 Problem Syncope, unspecified syncope type R55 Active 110151383 ALLERGIES Substance Reaction Event Type Date Status Compazine Unknown Drug Allergy May, Active Zofran Unknown Drug Allergy May, Active Tizanidine HCl seizure Drug Allergy May, Active Sulfamethoxazole-Trimethoprim Unknown Drug Allergy May, Active Metoclopramide HCl Unknown Drug Allergy May, Active Iodine Unknown Drug Allergy May, Active Hydrocodone-Acetaminophen Unknown Drug Allergy May, Active Codeine Sulfate Unknown Drug Allergy May, Active Acetaminophen Unknown Drug Allergy May, Active IV Dye Unknown Non Drug Allergy May, Active SOCIAL HISTORY No smoking Hx information available PLAN OF CARE Activity Details Follow Up if not improving or reg follow up Reason: VITAL SIGNS Height 62 in 2016-06-22 Weight 257.8 lbs 2016-06-22 Temperature 99.4 degrees Fahrenheit 2016-06-22 Heart Rate 72 bpm 2016-06-22 Respiratory Rate 18 2016-06-22 BMI 47.15 kg/m2 2016-06-22 Blood pressure systolic 131 mmHg 2016-06-22 Blood pressure diastolic 74 mmHg 2016-06-22 MEDICATIONS Medication Instructions Dosage Frequency Start Date End Date Duration Status Alprazolam 1 MG Orally Three times a day must last 28 days 1 tablet Active Tylenol 500 MG/15ML Orally Once a day @ HS 2 tablets Active Nystatin 678118 UNIT/GM Externally Twice a day apply to abdominal fold twice a day 12h Active Benadryl Allergy 25 MG Orally Once a day at bedtime 2 tablet as needed Active Seroquel XR 50MG TAKE TWO TABLETS BY MOUTH ONCE DAILY AT BEDTIME 28 Active Escitalopram Oxalate 20 mg Orally Once a day 1 tablet 24h 30 Active Insulin Syringe 31G X 11/08 Active Zantac 150 MG Orally twice a day 1 tablet 12h 30 day(s) Active [place] 5-325 MG Orally every 6 hrs 1 tablet as needed 6h 4 days Active Atenolol 50 mg Orally Once a day 2 tablet 24h Active Nystatin 862740 UNIT/ML Mouth/Throat Four times a day 4 ml 6h 12 Mar, 2016 Active Chantix 0.5 MG Orally Twice a day 1 tablet 12h 16 Apr, 2016 30 day(s) Active Losartan Potassium-HCTZ 100-25 MG Orally Once a day 1 tablet 24h Active Promethazine HCl 25 MG TAKE ONE TABLET BY MOUTH EVERY 6 HOURS NEEDED 15 Active Humulin R U-500 (Concentrated) 500 UNIT/ML Subcutaneous 3 times a day with meals 45 units or per sliding scale Active Escitalopram Oxalate 20MG Orally Once a day 1 tablet 24h 30 Active Furosemide 20 mg Orally Once a day 1 tablet 24h Active Temazepam 30 MG Orally Once a day 1 capsule at bedtime as needed 24h Active Oxygen 3L nasal canal Active Levothyroxine Sodium 75 MCG Orally Once a day 1 tablet 24h Active Gabapentin 800 MG Orally 4 times a day 1 tablet 6h Active Amoxicillin 500 MG Orally 4 times daily 1 capsule 7 days Active Pantoprazole Sodium 40 mg Orally Once a day 1 tablet 24h Active Diflucan 150 MG Orally one time 1 tablet today and repeat in 10 days May, Active Luis Fernando Contour Test - In Vitro 3 times a day as directed 8h Jan, Active RESULTS No Results PROCEDURES Procedure Date Ordered Related Diagnosis Body Site STREP A ASSAY W/OPTIC Jun 22, 2016 INFLUENZA ASSAY W/OPTIC Jun 22, 2016 Office Visit, Est Pt., Level 4 Jun 22, 2016 IMMUNIZATIONS No Known Immunizations
--- OUTSIDE RECORDS SUMMARY | 2017-03-15 23:54 | XMS REPORT ---
Author Author DEAN Hutton [facility] Address Unknown Care Team Providers Care Manager Financial Systems Name Role Phone DEAN Hutton Unavailable PROBLEMS Type Condition ICD9-CM Code XJS19-LS Code Onset Dates Condition Status SNOMED Code Problem Essential hypertension I10 Active 57040035 Problem Acquired hypothyroidism E03.9 Active 004061866 Problem Type 2 diabetes mellitus with diabetic autonomic (poly)neuropathy E11.43 Active 476692431 Problem Congestive heart failure, unspecified congestive heart failure chronicity, unspecified congestive heart failure type I50.9 Active 97002419 Problem Primary insomnia F51.01 Active 9194603 Problem Screening breast examination Z12.39 Active 640666403 Problem Recurrent major depressive disorder, remission status unspecified F33.9 Active 49175733 Problem 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 Active 073374098 Problem Tobacco abuse Z72.0 Active 912354026 Problem Postural hypotension I95.1 Active 94956647 Problem Severe episode of recurrent major depressive disorder, without 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 Active 51103091 Problem Acute non-recurrent maxillary sinusitis J01.00 Active 23736142 Problem Anxiety, generalized F41.1 Active 10760215 Problem Seasonal allergic rhinitis, unspecified allergic rhinitis trigger J30.2 Active 906380845 Problem Swelling of mandible R22.0 Active 243024299 Problem Seizure disorder G40.909 Active 833915212 Problem Gastritis determined by endoscopy K29.70 Active 7171556 Problem Diarrhea, unspecified type R19.7 Active 86298095 Problem Chronic nausea R11.0 Active 554569914 Problem Vaginal bleeding N93.9 Active 576613618 Problem Weakness R53.1 Active 37348691 Problem Chronic superficial gastritis without bleeding K29.30 Active 012591407 Problem Self-inflicted injury Z72.89 Active 645199174 Problem Unspecified abdominal pain R10.9 Active 768835162 Problem Unspecified fall W19.XXXA Active 1631178 Problem Epigastric pain R10.13 Active 86291022 Problem Noncompliance with diabetes treatment Z91.19 Active 5760260 Problem Chronic pain syndrome G89.4 Active 931512461 Problem Type 2 diabetes mellitus with diabetic polyneuropathy E11.42 Active 56128148 Problem Anxiety F41.9 Active 08967094 Problem Right lower quadrant abdominal pain R10.31 Active 489962758 Problem Gastroparesis K31.84 Active 972365910 Problem Swelling of both lower extremities M79.89 Active 61061150254882355 Problem Stage 3 chronic kidney disease N18.3 Active 561724316 Problem Acute pain of right shoulder M25.511 Active 88290822 Problem Port catheter in place Z95.828 Active 715595469 Problem Syncope, unspecified syncope type R55 Active 913362115 Problem Thrush B37.0 Active 88895220 Problem Neck pain M54.2 Active 77578505 ALLERGIES Unknown Allergies SOCIAL HISTORY No smoking Hx information available PLAN OF CARE VITAL SIGNS MEDICATIONS Medication Instructions Dosage Frequency Start Date End Date Duration Status Amoxicillin 500 MG Orally 4 times daily 1 capsule 7 days Active RESULTS No Results PROCEDURES No Known procedures IMMUNIZATIONS No Known Immunizations
--- OUTSIDE RECORDS SUMMARY | 2017-03-15 23:55 | XMS REPORT ---
Author Author MIRZA MARTINO [facility] Address [address] [place] [address] Care Team Providers Care Nocturnist Physician Name Role Phone MIRZA MARTINO Unavailable PROBLEMS Type Condition ICD9-CM Code FDF50-KI Code Onset Dates Condition Status SNOMED Code Problem Primary insomnia F51.01 Active 5119910 Problem Chronic pain syndrome G89.4 Active 510104695 Problem Recurrent major depressive disorder, remission status unspecified F33.9 Active 46030566 Problem Screening breast examination Z12.39 Active 014741000 Problem half-way 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 Active 051323795 Problem Tobacco abuse Z72.0 Active 276766162 Problem Severe episode of recurrent major depressive disorder, without 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 Active 02347223 Problem Anxiety, generalized F41.1 Active 47514054 Problem Weakness R53.1 Active 84480551 Problem Swelling of mandible R22.0 Active 472773821 Problem Vaginal bleeding N93.9 Active 485435027 Problem Seizure disorder G40.909 Active 070525379 Problem Chronic nausea R11.0 Active 118172456 Problem Chronic superficial gastritis without bleeding K29.30 Active 023110941 Problem Unspecified fall W19.XXXA Active 6043749 Problem Self-inflicted injury Z72.89 Active 818999405 Problem Chronic congestive heart failure, unspecified congestive heart failure type I50.9 Active 06880791 Problem Edema of both legs R60.0 Active 878655476 Problem Type 2 diabetes mellitus with diabetic polyneuropathy E11.42 Active 69914831 Problem Noncompliance with diabetes treatment Z91.19 Active 7913549 Problem Congestive heart failure, unspecified congestive heart failure chronicity, unspecified congestive heart failure type I50.9 Active 32301703 Problem Right lower quadrant abdominal pain R10.31 Active 492547773 Problem Port catheter in place Z95.828 Active 877966246 Problem Diarrhea, unspecified type R19.7 Active 31947086 Problem Stage 3 chronic kidney disease N18.3 Active 762163150 Problem Gastritis determined by endoscopy K29.70 Active 6579614 Problem Blister (nonthermal), right foot, initial encounter S90.821A Active 300733131 Problem Unspecified abdominal pain R10.9 Active 382622155 Problem Gastroparesis K31.84 Active 505754364 Problem Syncope, unspecified syncope type R55 Active 386179379 Problem Type 2 diabetes mellitus with diabetic autonomic (poly)neuropathy E11.43 Active 193434978 Problem Neck pain M54.2 Active 54668341 Problem Anxiety F41.9 Active 36474691 Problem Swelling of both lower extremities M79.89 Active 10808347552134242 Problem Epigastric pain R10.13 Active 60230493 Problem Thrush B37.0 Active 13477040 Problem Acquired hypothyroidism E03.9 Active 579968581 Problem Acute non-recurrent maxillary sinusitis J01.00 Active 34940069 Problem Essential hypertension I10 Active 75465905 Problem Seasonal allergic rhinitis, unspecified allergic rhinitis trigger J30.2 Active 197570741 Problem Acute pain of right shoulder M25.511 Active 96735096 Problem Postural hypotension I95.1 Active 94254464 ALLERGIES Substance Reaction Event Type Date Status [...] PLAN OF CARE Activity Details Follow Up 2 months regular fu or pending lab Reason: VITAL SIGNS Height 62 in 2016-07-05 Weight 253.8 lbs 2016-07-05 Temperature 98.1 degrees Fahrenheit 2016-07-05 Heart Rate 76 bpm 2016-07-05 Respiratory Rate 20 2016-07-05 BMI 46.42 kg/m2 2016-07-05 Blood pressure systolic 128 mmHg 2016-07-05 Blood pressure diastolic 76 mmHg 2016-07-05 MEDICATIONS Medication Instructions Dosage Frequency Start Date End Date Duration Status Zantac 150 MG Orally twice a day 1 tablet 12h 30 day(s) Active Humulin R U-500 (Concentrated) 500 UNIT/ML Subcutaneous 3 times a day with meals 45 units or per sliding scale Active Promethazine HCl 25 MG Orally 2 times a day 1 tablet as needed 12h 7 Aug 28 days Active Losartan Potassium-HCTZ 100-25 MG Orally Once a day 1 tablet 24h Active Escitalopram Oxalate 20 mg Orally Once a day 1 tablet 24h 30 Active Nystatin 362127 UNIT/GM Externally Twice a day apply to abdominal fold twice a day 12h Active Levothyroxine Sodium 75 MCG Orally Once a day 1 tablet 24h Active Alprazolam 1 MG Orally Three times a day must last 28 days 1 tablet Active Gabapentin 800 MG Orally 4 times a day 1 tablet 6h Active Temazepam 30 MG Orally Once a day 1 capsule at bedtime as needed 24h Active Furosemide 20 mg Orally Once a day 1 tablet 24h Active Diflucan 150 MG Orally one time 1 tablet today and repeat in 10 days May, Active Pantoprazole Sodium 40 mg Orally Once a day 1 tablet 24h Active Oxygen 3L nasal canal Active Nystatin 177488 UNIT/ML Mouth/Throat Four times a day 4 ml 6h 12 Mar, 2016 Active Insulin Syringe 31G X 5/16 Active Naproxen 500 MG Orally every 12 hrs 1 tablet as needed 12h Jun, Jul, 28 days Active Atenolol 50 mg Orally Once a day 2 tablet 24h Active Luis Fernando Contour Test - In Vitro 3 times a day as directed 8h Jan, Active Seroquel XR 50MG TAKE TWO TABLETS BY MOUTH ONCE DAILY AT BEDTIME 28 Active RESULTS No Results PROCEDURES Procedure Date Ordered Related Diagnosis Body Site URINALYSIS, AUTO, W/O SCOPE Jul 05, 2016 LAB NOT BILLED BY [facility] Jul 05, 2016 VENIPUNCT, ROUTINE* Jul 05, 2016 Office Visit, Est Pt., Level 5 Jul 05, 2016 IMMUNIZATIONS No Known Immunizations
--- OUTSIDE RECORDS SUMMARY | 2017-03-15 23:55 | XMS REPORT ---
Author Author DEAN Hutton [facility] Address Unknown Care Team Providers Care Package Handler Name Role Phone DEAN Hutton Unavailable PROBLEMS Type Condition ICD9-CM Code [id number] Code Onset Dates Condition Status SNOMED Code Problem [facility] 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 Active 296936697 Problem Recurrent major depressive disorder, remission status unspecified F33.9 Active 34303884 Problem Severe episode of recurrent major depressive disorder, without 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 Active 45071921 Problem Tobacco abuse Z72.0 Active 731106030 Problem Anxiety, generalized F41.1 Active 67275342 Problem Weakness R53.1 Active 86533447 Problem Stage 3 chronic kidney disease N18.3 Active 650847123 Problem Vaginal bleeding N93.9 Active 874861430 Problem Chronic nausea R11.0 Active 435037295 Problem Right lower quadrant abdominal pain R10.31 Active 116703494 Problem Self-inflicted injury Z72.89 Active 213180191 Problem Noncompliance with diabetes treatment Z91.19 Active 6419535 Problem Unspecified fall W19.XXXA Active 4072265 Problem Type 2 diabetes mellitus with diabetic polyneuropathy E11.42 Active 46776990 Problem Gastritis determined by endoscopy K29.70 Active 4876990 Problem Unspecified abdominal pain R10.9 Active 899043385 Problem Diarrhea, unspecified type R19.7 Active 18550488 Problem Left hip pain M25.552 Active 65373825 Problem Closed nondisplaced fracture of second metatarsal bone of left foot, initial encounter S92.325A Active 43057341 Problem Neck pain M54.2 Active 85746101 Problem Thrush B37.0 Active 44756433 Problem Anxiety F41.9 Active 30607682 Problem Swelling of both lower extremities M79.89 Active 04409291248073894 Problem Essential hypertension I10 Active 73524900 Problem Edema of both legs R60.0 Active 009452285 Problem Acquired hypothyroidism E03.9 Active 537875464 Problem Blister (nonthermal), right foot, initial encounter S90.821A Active 610908013 Problem Congestive heart failure, unspecified congestive heart failure chronicity, unspecified congestive heart failure type I50.9 Active 01914733 Problem Closed nondisplaced fracture of third metatarsal bone of left foot, initial encounter S92.335A Active 876015014 Problem Port catheter in place Z95.828 Active 052805341 Problem Chronic congestive heart failure, unspecified congestive heart failure type I50.9 Active 43628567 Problem Primary insomnia F51.01 Active 7833645 Problem Postural hypotension I95.1 Active 09861673 Problem Screening breast examination Z12.39 Active 329614010 Problem Acute non-recurrent maxillary sinusitis J01.00 Active 12048606 Problem Type 2 diabetes mellitus with diabetic autonomic (poly)neuropathy E11.43 Active 094951659 Problem Syncope, unspecified syncope type R55 Active 790860174 Problem Chronic pain syndrome G89.4 Active 443004324 Problem Acute pain of right shoulder M25.511 Active 81637157 Problem Epigastric pain R10.13 Active 85821496 Problem Seizure disorder G40.909 Active 305261429 Problem Gastroparesis K31.84 Active 132531773 Problem Chronic superficial gastritis without bleeding K29.30 Active 960451446 Problem Seasonal allergic rhinitis, unspecified allergic rhinitis trigger J30.2 Active 759692893 Problem Swelling of mandible R22.0 Active 153318493 ALLERGIES Substance Reaction Event Type Date Status Compazine Unknown Drug Allergy Jul, Active Zofran Unknown Drug Allergy Jul, Active Tizanidine HCl seizure Drug Allergy Jul, Active Sulfamethoxazole-Trimethoprim Unknown Drug Allergy Jul, Active Metoclopramide HCl Unknown Drug Allergy Jul, Active Iodine Unknown Drug Allergy Jul, Active Hydrocodone-Acetaminophen Unknown Drug Allergy Jul, Active Codeine Sulfate Unknown Drug Allergy Jul, Active Acetaminophen Unknown Drug Allergy Jul, Active IV Dye Unknown Non Drug Allergy Jul, Active SOCIAL HISTORY No smoking Hx information available PLAN OF CARE Activity Details Follow Up prn Reason:hygiene/#31-te VITAL SIGNS Height 62 in 2016-07-28 Blood pressure systolic 115 mmHg 2016-07-28 Blood pressure diastolic 53 mmHg 2016-07-28 MEDICATIONS Medication Instructions Dosage Frequency Start Date End Date Duration Status Naproxen 500 MG Orally every 12 hrs 1 tablet as needed 12h 10 Jun, 2016 7 Jul, 2016 28 days Active Zantac 150 MG Orally twice a day 1 tablet 12h 30 day(s) Active Benadryl Allergy 25 MG Orally Once a day at bedtime 2 tablet as needed Active Nystatin 920116 UNIT/ML Mouth/Throat Four times a day 4 ml 6h Mar, Active Gabapentin 800 MG Orally 4 times a day 1 tablet 6h Active Furosemide 20 mg Orally Once a day 1 tablet 24h Active Tizanidine HCl 4 MG Orally Three times a day 1 tablet as needed 8h Active Levothyroxine Sodium 75 MCG Orally Once a day 1 tablet 24h Active Seroquel XR 50MG TAKE TWO TABLETS BY MOUTH ONCE DAILY AT BEDTIME 28 Active Clindamycin HCl 150 MG Orally three times 1 capsule Jul, 9 Jul, 2016 7 days Active Humulin R U-500 (Concentrated) 500 UNIT/ML Subcutaneous 3 times a day with meals 325 units Active Insulin Syringe 31G X 11/08 Active Tylenol Extra Strength 500 MG Orally 3 times a day 2 tablets as needed 8h Active Chantix 0.5 MG Orally Twice a day 1 tablet 12h Apr, 30 day(s) Active Atenolol 50 mg Orally Once a day 2 tablet 24h Active Promethazine HCl 25 MG Orally 2 times a day 1 tablet as needed 12h 28 days Active Nystatin 849928 UNIT/GM Externally Twice a day apply to abdominal fold twice a day 12h Active Temazepam 30 MG Orally Once a day 1 capsule at bedtime as needed 24h Active Alprazolam 1 MG Orally Three times a day must last 28 days 1 tablet Active Losartan Potassium-HCTZ 100-25 MG Orally Once a day 1 tablet 24h Active Luis Fernando Contour Test - In Vitro 3 times a day as directed 8h Jan, Active Oxygen 3L nasal canal Active Escitalopram Oxalate 20 mg Orally Once a day 1 tablet 24h 30 Active RESULTS No Results PROCEDURES Procedure Date Ordered Related Diagnosis Body Site Dental no charge Jul 28, 2016 IMMUNIZATIONS No Known Immunizations
--- OUTSIDE RECORDS SUMMARY | 2017-03-15 23:57 | XMS REPORT ---
Author Author MIRZA MARTINO [facility] Address [address] [place] [address] Care Team Providers Care Decorative Engraver Apprentice Name Role Phone MIRZA MARTINO Unavailable PROBLEMS Type Condition ICD9-CM Code [id number] Code Onset Dates Condition Status SNOMED Code Problem Type 2 diabetes mellitus with diabetic autonomic (poly)neuropathy E11.43 Active 579118807 Problem Congestive heart failure, unspecified congestive heart failure chronicity, unspecified congestive heart failure type I50.9 Active 53892162 Problem Screening breast examination Z12.39 Active 991396526 Problem Primary insomnia F51.01 Active 7826840 Problem Recurrent major depressive disorder, remission status unspecified F33.9 Active 22829878 Problem senior care 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 Active 058769070 Problem Tobacco abuse Z72.0 Active 595461957 Problem Severe episode of recurrent major depressive disorder, without 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 Active 14845423 Problem Anxiety, generalized F41.1 Active 78126628 Problem Seasonal allergic rhinitis, unspecified allergic rhinitis trigger J30.2 Active 134190317 Problem Weakness R53.1 Active 98253480 Problem Seizure disorder G40.909 Active 087650906 Problem Vaginal bleeding N93.9 Active 122739232 Problem Swelling of mandible R22.0 Active 679010995 Problem Chronic superficial gastritis without bleeding K29.30 Active 956187780 Problem Self-inflicted injury Z72.89 Active 257614619 Problem Edema of both legs R60.0 Active 580159370 Problem Blister (nonthermal), right foot, initial encounter S90.821A Active 844480834 Problem Swelling of both lower extremities M79.89 Active 35172456152124167 Problem Right lower quadrant abdominal pain R10.31 Active 991209373 Problem Port catheter in place Z95.828 Active 186182747 Problem Chronic nausea R11.0 Active 491368839 Problem Stage 3 chronic kidney disease N18.3 Active 910948880 Problem Unspecified abdominal pain R10.9 Active 543169953 Problem Unspecified fall W19.XXXA Active 4351126 Problem Gastritis determined by endoscopy K29.70 Active 5474011 Problem Diarrhea, unspecified type R19.7 Active 14378724 Problem Acquired hypothyroidism E03.9 Active 370133196 Problem Thrush B37.0 Active 00989566 Problem Essential hypertension I10 Active 77534186 Problem Neck pain M54.2 Active 42593775 Problem Epigastric pain R10.13 Active 72290974 Problem Noncompliance with diabetes treatment Z91.19 Active 3919067 Problem Chronic pain syndrome G89.4 Active 924265870 Problem Type 2 diabetes mellitus with diabetic polyneuropathy E11.42 Active 92684694 Problem Anxiety F41.9 Active 01356203 Problem Postural hypotension I95.1 Active 94154145 Problem Gastroparesis K31.84 Active 391003442 Problem Acute non-recurrent maxillary sinusitis J01.00 Active 31549706 Problem Acute pain of right shoulder M25.511 Active 90341821 Problem Syncope, unspecified syncope type R55 Active 338381720 ALLERGIES Unknown Allergies SOCIAL HISTORY No smoking Hx information available PLAN OF CARE VITAL SIGNS MEDICATIONS Medication Instructions Dosage Frequency Start Date End Date Duration Status Promethazine HCl 25 MG Orally 2 times a day 1 tablet as needed 12h 30 days Active RESULTS No Results PROCEDURES No Known procedures IMMUNIZATIONS No Known Immunizations
--- OUTSIDE RECORDS SUMMARY | 2017-03-15 23:57 | XMS REPORT ---
Author Author MIRZA MARTINO [facility] Address [address] [place] [address] Care Team Providers Care System Support Analyst Name Role Phone MIRZA MARTINO Unavailable PROBLEMS Type Condition ICD9-CM Code [id number] Code Onset Dates Condition Status SNOMED Code Problem Type 2 diabetes mellitus with diabetic autonomic (poly)neuropathy E11.43 Active 648948626 Problem Congestive heart failure, unspecified congestive heart failure chronicity, unspecified congestive heart failure type I50.9 Active 03711528 Problem Screening breast examination Z12.39 Active 360303932 Problem Primary insomnia F51.01 Active 8963765 Problem Recurrent major depressive disorder, remission status unspecified F33.9 Active 47967205 Problem long-term 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 Active 995917949 Problem Tobacco abuse Z72.0 Active 812742941 Problem Severe episode of recurrent major depressive disorder, without 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 Active 07998368 Problem Anxiety, generalized F41.1 Active 47168107 Problem Seasonal allergic rhinitis, unspecified allergic rhinitis trigger J30.2 Active 229594030 Problem Weakness R53.1 Active 77006468 Problem Seizure disorder G40.909 Active 233935065 Problem Vaginal bleeding N93.9 Active 288575918 Problem Swelling of mandible R22.0 Active 977683895 Problem Chronic superficial gastritis without bleeding K29.30 Active 373369423 Problem Self-inflicted injury Z72.89 Active 450129926 Problem Edema of both legs R60.0 Active 146680693 Problem Blister (nonthermal), right foot, initial encounter S90.821A Active 683065671 Problem Swelling of both lower extremities M79.89 Active 73760691330661894 Problem Right lower quadrant abdominal pain R10.31 Active 140832289 Problem Port catheter in place Z95.828 Active 710794877 Problem Chronic nausea R11.0 Active 005168436 Problem Stage 3 chronic kidney disease N18.3 Active 775266540 Problem Unspecified abdominal pain R10.9 Active 897229298 Problem Unspecified fall W19.XXXA Active 5573961 Problem Gastritis determined by endoscopy K29.70 Active 5596962 Problem Diarrhea, unspecified type R19.7 Active 98904105 Problem Acquired hypothyroidism E03.9 Active 811542839 Problem Thrush B37.0 Active 29125126 Problem Essential hypertension I10 Active 43698216 Problem Neck pain M54.2 Active 16268215 Problem Epigastric pain R10.13 Active 54128528 Problem Noncompliance with diabetes treatment Z91.19 Active 3588959 Problem Chronic pain syndrome G89.4 Active 247743928 Problem Type 2 diabetes mellitus with diabetic polyneuropathy E11.42 Active 99750652 Problem Anxiety F41.9 Active 13945094 Problem Postural hypotension I95.1 Active 11248176 Problem Gastroparesis K31.84 Active 694382796 Problem Acute non-recurrent maxillary sinusitis J01.00 Active 08468205 Problem Acute pain of right shoulder M25.511 Active 85698217 Problem Syncope, unspecified syncope type R55 Active 966319326 ALLERGIES Unknown Allergies SOCIAL HISTORY No smoking Hx information available PLAN OF CARE VITAL SIGNS MEDICATIONS Medication Instructions Dosage Frequency Start Date End Date Duration Status Alprazolam 1 MG Orally Three times a day must last 28 days 1 tablet Active RESULTS No Results PROCEDURES No Known procedures IMMUNIZATIONS No Known Immunizations
--- OUTSIDE RECORDS SUMMARY | 2017-03-15 23:58 | XMS REPORT ---
Author Author MIRZA MARTINO [facility] Address [address] [place] [address] Care Team Providers Care Spring Coiler Hand Name Role Phone MIRZA MARTINO Unavailable PROBLEMS Type Condition ICD9-CM Code [id number] Code Onset Dates Condition Status SNOMED Code Problem 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 Active 939447465 Problem Recurrent major depressive disorder, remission status unspecified F33.9 Active 19823777 Problem Severe episode of recurrent major depressive disorder, without 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 Active 16288806 Problem Tobacco abuse Z72.0 Active 036445148 Problem Anxiety, generalized F41.1 Active 77757393 Problem Weakness R53.1 Active 56068046 Problem Stage 3 chronic kidney disease N18.3 Active 081716156 Problem Vaginal bleeding N93.9 Active 400701727 Problem Chronic nausea R11.0 Active 887483266 Problem Right lower quadrant abdominal pain R10.31 Active 706509075 Problem Self-inflicted injury Z72.89 Active 500181512 Problem Noncompliance with diabetes treatment Z91.19 Active 4526537 Problem Unspecified fall W19.XXXA Active 2628645 Problem Type 2 diabetes mellitus with diabetic polyneuropathy E11.42 Active 35429202 Problem Gastritis determined by endoscopy K29.70 Active 8735831 Problem Unspecified abdominal pain R10.9 Active 709984668 Problem Diarrhea, unspecified type R19.7 Active 19114031 Problem Left hip pain M25.552 Active 49524856 Problem Closed nondisplaced fracture of second metatarsal bone of left foot, initial encounter S92.325A Active 85328394 Problem Neck pain M54.2 Active 23752415 Problem Thrush B37.0 Active 94442151 Problem Anxiety F41.9 Active 65582018 Problem Swelling of both lower extremities M79.89 Active 17780033905593506 Problem Essential hypertension I10 Active 00768291 Problem Edema of both legs R60.0 Active 033736589 Problem Acquired hypothyroidism E03.9 Active 036179138 Problem Blister (nonthermal), right foot, initial encounter S90.821A Active 316195596 Problem Congestive heart failure, unspecified congestive heart failure chronicity, unspecified congestive heart failure type I50.9 Active 03728285 Problem Closed nondisplaced fracture of third metatarsal bone of left foot, initial encounter S92.335A Active 288157232 Problem Port catheter in place Z95.828 Active 319678852 Problem Chronic congestive heart failure, unspecified congestive heart failure type I50.9 Active 90784939 Problem Primary insomnia F51.01 Active 0145858 Problem Postural hypotension I95.1 Active 59985531 Problem Screening breast examination Z12.39 Active 481117113 Problem Acute non-recurrent maxillary sinusitis J01.00 Active 03592649 Problem Type 2 diabetes mellitus with diabetic autonomic (poly)neuropathy E11.43 Active 369929136 Problem Syncope, unspecified syncope type R55 Active 683185201 Problem Chronic pain syndrome G89.4 Active 754909323 Problem Acute pain of right shoulder M25.511 Active 67956608 Problem Epigastric pain R10.13 Active 89619525 Problem Seizure disorder G40.909 Active 690896845 Problem Gastroparesis K31.84 Active 897428861 Problem Chronic superficial gastritis without bleeding K29.30 Active 258167374 Problem Seasonal allergic rhinitis, unspecified allergic rhinitis trigger J30.2 Active 213850713 Problem Swelling of mandible R22.0 Active 891621157 ALLERGIES Substance Reaction Event Type Date Status [...] PLAN OF CARE Activity Details Follow Up 6 Weeks Reason:CHM VITAL SIGNS Height 62 in 2016-07-27 Weight 261.6 lbs 2016-07-27 Temperature 97.8 degrees Fahrenheit 2016-07-27 Heart Rate 88 bpm 2016-07-27 Respiratory Rate 20 2016-07-27 BMI 47.84 kg/m2 2016-07-27 Blood pressure systolic 124 mmHg 2016-07-27 Blood pressure diastolic 78 mmHg 2016-07-27 MEDICATIONS Medication Instructions Dosage Frequency Start Date End Date Duration Status Luis Fernando Contour Test - In Vitro 3 times a day as directed 8h Jan, Active Humulin R U-500 (Concentrated) 500 UNIT/ML Subcutaneous 3 times a day with meals 325 units Active Naproxen 500 MG Orally every 12 hrs 1 tablet as needed 12h Jun, 7 Jul, 2016 28 days Active Nystatin 453538 UNIT/GM Externally Twice a day apply to abdominal fold twice a day 12h Active Insulin Syringe 31G X 11/08 Active Alprazolam 1 MG Orally Three times a day must last 28 days 1 tablet Active Zantac 150 MG Orally twice a day 1 tablet 12h 30 day(s) Active Levothyroxine Sodium 75 MCG Orally Once a day 1 tablet 24h Active Promethazine HCl 25 MG Orally 2 times a day 1 tablet as needed 12h 28 days Active Seroquel XR 50MG TAKE TWO TABLETS BY MOUTH ONCE DAILY AT BEDTIME 28 Active Benadryl Allergy 25 MG Orally Once a day at bedtime 2 tablet as needed Active Losartan Potassium-HCTZ 100-25 MG Orally Once a day 1 tablet 24h Active Temazepam 30 MG Orally Once a day 1 capsule at bedtime as needed 24h Active Furosemide 20 mg Orally Once a day 1 tablet 24h Active Oxygen 3L nasal canal Active Tizanidine HCl 4 MG Orally Three times a day 1 tablet as needed 8h Active Nystatin 800753 UNIT/ML Mouth/Throat Four times a day 4 ml 6h Mar, Active Atenolol 50 mg Orally Once a day 2 tablet 24h Active Chantix 0.5 MG Orally Twice a day 1 tablet 12h Apr, 30 day(s) Active Escitalopram Oxalate 20 mg Orally Once a day 1 tablet 24h 30 Active Gabapentin 800 MG Orally 4 times a day 1 tablet 6h Active Tylenol Extra Strength 500 MG Orally 3 times a day 2 tablets as needed 8h Active RESULTS No Results PROCEDURES Procedure Date Ordered Related Diagnosis Body Site LAB NOT BILLED BY [facility] Jul 27, 2016 Office Visit, Est Pt., Level 5 Jul 27, 2016 VENIPUNCT, ROUTINE* Jul 27, 2016 IMMUNIZATIONS No Known Immunizations
--- OUTSIDE RECORDS SUMMARY | 2017-03-15 23:58 | XMS REPORT ---
Author Author MIRZA MARTINO [facility] Address [address] [place] [address] Care Team Providers Care Casino Gaming Inspector Name Role Phone MIRZA MARTINO Unavailable PROBLEMS Type Condition ICD9-CM Code [id number] Code Onset Dates Condition Status SNOMED Code Problem Type 2 diabetes mellitus with diabetic autonomic (poly)neuropathy E11.43 Active 164939230 Problem Congestive heart failure, unspecified congestive heart failure chronicity, unspecified congestive heart failure type I50.9 Active 74083495 Problem Screening breast examination Z12.39 Active 854511901 Problem Primary insomnia F51.01 Active 6702777 Problem Recurrent major depressive disorder, remission status unspecified F33.9 Active 10283835 Problem snf 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 Active 992188975 Problem Tobacco abuse Z72.0 Active 566451457 Problem Severe episode of recurrent major depressive disorder, without 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 Active 45092859 Problem Anxiety, generalized F41.1 Active 64322345 Problem Seasonal allergic rhinitis, unspecified allergic rhinitis trigger J30.2 Active 043997374 Problem Weakness R53.1 Active 71743663 Problem Seizure disorder G40.909 Active 242526503 Problem Vaginal bleeding N93.9 Active 524923879 Problem Swelling of mandible R22.0 Active 395382270 Problem Chronic superficial gastritis without bleeding K29.30 Active 693695106 Problem Self-inflicted injury Z72.89 Active 049153265 Problem Edema of both legs R60.0 Active 536935897 Problem Blister (nonthermal), right foot, initial encounter S90.821A Active 346381498 Problem Swelling of both lower extremities M79.89 Active 81513508106583951 Problem Right lower quadrant abdominal pain R10.31 Active 781235402 Problem Port catheter in place Z95.828 Active 340100507 Problem Chronic nausea R11.0 Active 203591270 Problem Stage 3 chronic kidney disease N18.3 Active 693307915 Problem Unspecified abdominal pain R10.9 Active 173729837 Problem Unspecified fall W19.XXXA Active 4953686 Problem Gastritis determined by endoscopy K29.70 Active 6992799 Problem Diarrhea, unspecified type R19.7 Active 94135137 Problem Acquired hypothyroidism E03.9 Active 045953356 Problem Thrush B37.0 Active 78428209 Problem Essential hypertension I10 Active 06907086 Problem Neck pain M54.2 Active 62264622 Problem Epigastric pain R10.13 Active 69004875 Problem Noncompliance with diabetes treatment Z91.19 Active 7779560 Problem Chronic pain syndrome G89.4 Active 804778591 Problem Type 2 diabetes mellitus with diabetic polyneuropathy E11.42 Active 90210922 Problem Anxiety F41.9 Active 80155567 Problem Postural hypotension I95.1 Active 05184339 Problem Gastroparesis K31.84 Active 705009665 Problem Acute non-recurrent maxillary sinusitis J01.00 Active 33922173 Problem Acute pain of right shoulder M25.511 Active 49974892 Problem Syncope, unspecified syncope type R55 Active 645393651 ALLERGIES Unknown Allergies SOCIAL HISTORY No smoking Hx information available PLAN OF CARE VITAL SIGNS MEDICATIONS Unknown Medications RESULTS No Results PROCEDURES No Known procedures IMMUNIZATIONS No Known Immunizations
--- OUTSIDE RECORDS SUMMARY | 2017-03-15 23:59 | XMS REPORT ---
Author Author MIRZA MARTINO [facility] Address [address] [place] [address] Care Team Providers Care Location Director Name Role Phone MIRZA MARTINO Unavailable PROBLEMS Type Condition ICD9-CM Code [id number] Code Onset Dates Condition Status SNOMED Code Problem Chronic pain syndrome G89.4 Active 384751205 Problem Type 2 diabetes mellitus with diabetic autonomic (poly)neuropathy E11.43 Active 089700869 Problem Screening breast examination Z12.39 Active 954575224 Problem Primary insomnia F51.01 Active 5818404 Problem Recurrent major depressive disorder, remission status unspecified F33.9 Active 56132726 Problem [facility] 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 Active 874776320 Problem Tobacco abuse Z72.0 Active 682769359 Problem Severe episode of recurrent major depressive disorder, without 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 Active 81833165 Problem Anxiety, generalized F41.1 Active 97503127 Problem Seasonal allergic rhinitis, unspecified allergic rhinitis trigger J30.2 Active 547932003 Problem Weakness R53.1 Active 23293690 Problem Swelling of mandible R22.0 Active 635750737 Problem Vaginal bleeding N93.9 Active 662122765 Problem Seizure disorder G40.909 Active 963692656 Problem Self-inflicted injury Z72.89 Active 020823267 Problem Chronic superficial gastritis without bleeding K29.30 Active 849815656 Problem Blister (nonthermal), right foot, initial encounter S90.821A Active 846584898 Problem Edema of both legs R60.0 Active 461235996 Problem Noncompliance with diabetes treatment Z91.19 Active 3793378 Problem Right lower quadrant abdominal pain R10.31 Active 274219618 Problem Port catheter in place Z95.828 Active 299451112 Problem Chronic nausea R11.0 Active 372953311 Problem Stage 3 chronic kidney disease N18.3 Active 453162153 Problem Unspecified abdominal pain R10.9 Active 749016294 Problem Unspecified fall W19.XXXA Active 6786363 Problem Diarrhea, unspecified type R19.7 Active 66417417 Problem Gastritis determined by endoscopy K29.70 Active 0631367 Problem Epigastric pain R10.13 Active 71673895 Problem Thrush B37.0 Active 68331789 Problem Gastroparesis K31.84 Active 275585007 Problem Syncope, unspecified syncope type R55 Active 168265074 Problem Essential hypertension I10 Active 48446111 Problem Type 2 diabetes mellitus with diabetic polyneuropathy E11.42 Active 09868190 Problem Anxiety F41.9 Active 77843627 Problem Swelling of both lower extremities M79.89 Active 64352791742979867 Problem Congestive heart failure, unspecified congestive heart failure chronicity, unspecified congestive heart failure type I50.9 Active 84314398 Problem Postural hypotension I95.1 Active 43078798 Problem Acquired hypothyroidism E03.9 Active 299543569 Problem Acute non-recurrent maxillary sinusitis J01.00 Active 42877620 Problem Neck pain M54.2 Active 12554009 Problem Acute pain of right shoulder M25.511 Active 48420316 ALLERGIES Unknown Allergies SOCIAL HISTORY No smoking Hx information available PLAN OF CARE VITAL SIGNS MEDICATIONS Unknown Medications RESULTS No Results PROCEDURES No Known procedures IMMUNIZATIONS No Known Immunizations
--- OUTSIDE RECORDS SUMMARY | 2017-03-16 | XMS REPORT ---
Author Author MIRZA MARTINO [facility] Address [address] [place] [address] Care Team Providers Care Stoker Installer Name Role Phone MIRZA MARTINO Unavailable PROBLEMS Type Condition ICD9-CM Code [id number] Code Onset Dates Condition Status SNOMED Code Problem Primary insomnia F51.01 Active 3523045 Problem Chronic pain syndrome G89.4 Active 274733139 Problem Recurrent major depressive disorder, remission status unspecified F33.9 Active 69315607 Problem Screening breast examination Z12.39 Active 399915146 Problem 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 Active 586860199 Problem Tobacco abuse Z72.0 Active 049872587 Problem Severe episode of recurrent major depressive disorder, without 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 Active 73568141 Problem Anxiety, generalized F41.1 Active 41013895 Problem Weakness R53.1 Active 93084811 Problem Swelling of mandible R22.0 Active 351482989 Problem Vaginal bleeding N93.9 Active 160309046 Problem Seizure disorder G40.909 Active 247960944 Problem Chronic nausea R11.0 Active 864476771 Problem Chronic superficial gastritis without bleeding K29.30 Active 417614234 Problem Unspecified fall W19.XXXA Active 2742827 Problem Self-inflicted injury Z72.89 Active 054636574 Problem Chronic congestive heart failure, unspecified congestive heart failure type I50.9 Active 92460990 Problem Edema of both legs R60.0 Active 766920416 Problem Type 2 diabetes mellitus with diabetic polyneuropathy E11.42 Active 42539689 Problem Noncompliance with diabetes treatment Z91.19 Active 6381205 Problem Congestive heart failure, unspecified congestive heart failure chronicity, unspecified congestive heart failure type I50.9 Active 24675787 Problem Right lower quadrant abdominal pain R10.31 Active 245953746 Problem Port catheter in place Z95.828 Active 641365968 Problem Diarrhea, unspecified type R19.7 Active 11752917 Problem Stage 3 chronic kidney disease N18.3 Active 537702670 Problem Gastritis determined by endoscopy K29.70 Active 3395037 Problem Blister (nonthermal), right foot, initial encounter S90.821A Active 747547156 Problem Unspecified abdominal pain R10.9 Active 418856852 Problem Gastroparesis K31.84 Active 209943225 Problem Syncope, unspecified syncope type R55 Active 347610296 Problem Type 2 diabetes mellitus with diabetic autonomic (poly)neuropathy E11.43 Active 846754231 Problem Neck pain M54.2 Active 78145303 Problem Anxiety F41.9 Active 18320564 Problem Swelling of both lower extremities M79.89 Active 23133029673373498 Problem Epigastric pain R10.13 Active 08280519 Problem Thrush B37.0 Active 51418348 Problem Acquired hypothyroidism E03.9 Active 402331718 Problem Acute non-recurrent maxillary sinusitis J01.00 Active 38223784 Problem Essential hypertension I10 Active 49946711 Problem Seasonal allergic rhinitis, unspecified allergic rhinitis trigger J30.2 Active 560829984 Problem Acute pain of right shoulder M25.511 Active 42154132 Problem Postural hypotension I95.1 Active 56877564 ALLERGIES Unknown Allergies SOCIAL HISTORY No smoking Hx information available PLAN OF CARE VITAL SIGNS MEDICATIONS Medication Instructions Dosage Frequency Start Date End Date Duration Status Temazepam 30 MG Orally Once a day 1 capsule at bedtime as needed 24h Active RESULTS No Results PROCEDURES No Known procedures IMMUNIZATIONS No Known Immunizations
--- OUTSIDE RECORDS SUMMARY | 2017-03-16 | XMS REPORT ---
Author Author CHACE CABRAL Organization [facility] Address [address] [place] [address] Care Team Providers Care Drier Helper Name Role Phone CHACE CABRAL Unavailable PROBLEMS Type Condition ICD9-CM Code [id number] Code Onset Dates Condition Status SNOMED Code Problem snf 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 Active 122961720 Problem Recurrent major depressive disorder, remission status unspecified F33.9 Active 43061204 Problem Severe episode of recurrent major depressive disorder, without 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 Active 02376707 Problem Tobacco abuse Z72.0 Active 524029084 Problem Anxiety, generalized F41.1 Active 41605823 Problem Weakness R53.1 Active 43491956 Problem Stage 3 chronic kidney disease N18.3 Active 401399251 Problem Vaginal bleeding N93.9 Active 174735454 Problem Chronic nausea R11.0 Active 568675857 Problem Right lower quadrant abdominal pain R10.31 Active 751758700 Problem Self-inflicted injury Z72.89 Active 814714665 Problem Noncompliance with diabetes treatment Z91.19 Active 1188317 Problem Unspecified fall W19.XXXA Active 9628021 Problem Type 2 diabetes mellitus with diabetic polyneuropathy E11.42 Active 37090613 Problem Gastritis determined by endoscopy K29.70 Active 8932788 Problem Unspecified abdominal pain R10.9 Active 666776858 Problem Diarrhea, unspecified type R19.7 Active 67079858 Problem Left hip pain M25.552 Active 52503203 Problem Closed nondisplaced fracture of second metatarsal bone of left foot, initial encounter S92.325A Active 54481952 Problem Neck pain M54.2 Active 24690511 Problem Thrush B37.0 Active 97058367 Problem Anxiety F41.9 Active 04587928 Problem Swelling of both lower extremities M79.89 Active 12597964490765448 Problem Essential hypertension I10 Active 89118064 Problem Edema of both legs R60.0 Active 071381882 Problem Acquired hypothyroidism E03.9 Active 919540712 Problem Blister (nonthermal), right foot, initial encounter S90.821A Active 836976870 Problem Congestive heart failure, unspecified congestive heart failure chronicity, unspecified congestive heart failure type I50.9 Active 56413232 Problem Closed nondisplaced fracture of third metatarsal bone of left foot, initial encounter S92.335A Active 340480796 Problem Port catheter in place Z95.828 Active 252434074 Problem Chronic congestive heart failure, unspecified congestive heart failure type I50.9 Active 07216361 Problem Primary insomnia F51.01 Active 9541655 Problem Postural hypotension I95.1 Active 83565198 Problem Screening breast examination Z12.39 Active 231785414 Problem Acute non-recurrent maxillary sinusitis J01.00 Active 03070505 Problem Type 2 diabetes mellitus with diabetic autonomic (poly)neuropathy E11.43 Active 667553225 Problem Syncope, unspecified syncope type R55 Active 434122622 Problem Chronic pain syndrome G89.4 Active 734561481 Problem Acute pain of right shoulder M25.511 Active 79732429 Problem Epigastric pain R10.13 Active 79123853 Problem Seizure disorder G40.909 Active 336303560 Problem Gastroparesis K31.84 Active 689809888 Problem Chronic superficial gastritis without bleeding K29.30 Active 736359417 Problem Seasonal allergic rhinitis, unspecified allergic rhinitis trigger J30.2 Active 557088780 Problem Swelling of mandible R22.0 Active 151182710 ALLERGIES Unknown Allergies SOCIAL HISTORY No smoking Hx information available PLAN OF CARE VITAL SIGNS MEDICATIONS Medication Instructions Dosage Frequency Start Date End Date Duration Status Naproxen 500 MG Orally every 12 hrs 1 tablet as needed 12h 10 Jun, 2016 28 days Active RESULTS No Results PROCEDURES No Known procedures IMMUNIZATIONS No Known Immunizations
--- OUTSIDE RECORDS SUMMARY | 2017-03-16 00:01 | XMS REPORT ---
Author Author MIRZA MARTINO [facility] Address [address] [place] [address] Care Team Providers Care Hat Blocker Name Role Phone MIRZA MARTINO Unavailable PROBLEMS Type Condition ICD9-CM Code [id number] Code Onset Dates Condition Status SNOMED Code Problem Type 2 diabetes mellitus with diabetic autonomic (poly)neuropathy E11.43 Active 294662145 Problem Congestive heart failure, unspecified congestive heart failure chronicity, unspecified congestive heart failure type I50.9 Active 11195697 Problem Screening breast examination Z12.39 Active 477350714 Problem Primary insomnia F51.01 Active 3593871 Problem Recurrent major depressive disorder, remission status unspecified F33.9 Active 50621593 Problem group home 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 Active 274496261 Problem Tobacco abuse Z72.0 Active 128298778 Problem Severe episode of recurrent major depressive disorder, without 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 Active 32944049 Problem Anxiety, generalized F41.1 Active 52578764 Problem Seasonal allergic rhinitis, unspecified allergic rhinitis trigger J30.2 Active 288926035 Problem Weakness R53.1 Active 71468190 Problem Seizure disorder G40.909 Active 881673541 Problem Vaginal bleeding N93.9 Active 933641635 Problem Swelling of mandible R22.0 Active 748347616 Problem Chronic superficial gastritis without bleeding K29.30 Active 887462412 Problem Self-inflicted injury Z72.89 Active 962953710 Problem Edema of both legs R60.0 Active 509611795 Problem Blister (nonthermal), right foot, initial encounter S90.821A Active 258476340 Problem Swelling of both lower extremities M79.89 Active 21472679442695349 Problem Right lower quadrant abdominal pain R10.31 Active 260384711 Problem Port catheter in place Z95.828 Active 227853452 Problem Chronic nausea R11.0 Active 870008575 Problem Stage 3 chronic kidney disease N18.3 Active 560048741 Problem Unspecified abdominal pain R10.9 Active 090948247 Problem Unspecified fall W19.XXXA Active 2630899 Problem Gastritis determined by endoscopy K29.70 Active 9032881 Problem Diarrhea, unspecified type R19.7 Active 62789021 Problem Acquired hypothyroidism E03.9 Active 009391970 Problem Thrush B37.0 Active 00584557 Problem Essential hypertension I10 Active 12263926 Problem Neck pain M54.2 Active 42960195 Problem Epigastric pain R10.13 Active 02589110 Problem Noncompliance with diabetes treatment Z91.19 Active 7498035 Problem Chronic pain syndrome G89.4 Active 490690326 Problem Type 2 diabetes mellitus with diabetic polyneuropathy E11.42 Active 83535445 Problem Anxiety F41.9 Active 59436603 Problem Postural hypotension I95.1 Active 72774546 Problem Gastroparesis K31.84 Active 680326766 Problem Acute non-recurrent maxillary sinusitis J01.00 Active 77868491 Problem Acute pain of right shoulder M25.511 Active 35718660 Problem Syncope, unspecified syncope type R55 Active 879087016 ALLERGIES Unknown Allergies SOCIAL HISTORY No smoking Hx information available PLAN OF CARE VITAL SIGNS MEDICATIONS Unknown Medications RESULTS No Results PROCEDURES No Known procedures IMMUNIZATIONS No Known Immunizations
--- OUTSIDE RECORDS SUMMARY | 2017-03-16 00:01 | XMS REPORT ---
Author Author DIAMOND NUGENT [facility] Address [address] [place] [address] Care Team Providers Care Brake Repairer Name Role Phone DIAMOND NUGENT Unavailable PROBLEMS Type Condition ICD9-CM Code [id number] Code Onset Dates Condition Status SNOMED Code Problem Primary insomnia F51.01 Active 1385811 Problem Chronic pain syndrome G89.4 Active 657337558 Problem Recurrent major depressive disorder, remission status unspecified F33.9 Active 38565968 Problem Screening breast examination Z12.39 Active 732796795 Problem long-term 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 Active 045443179 Problem Tobacco abuse Z72.0 Active 543056646 Problem Severe episode of recurrent major depressive disorder, without 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 Active 03088609 Problem Anxiety, generalized F41.1 Active 15895669 Problem Weakness R53.1 Active 95955562 Problem Swelling of mandible R22.0 Active 435843214 Problem Vaginal bleeding N93.9 Active 827913599 Problem Seizure disorder G40.909 Active 980120492 Problem Chronic nausea R11.0 Active 271361437 Problem Chronic superficial gastritis without bleeding K29.30 Active 895257335 Problem Unspecified fall W19.XXXA Active 0983342 Problem Self-inflicted injury Z72.89 Active 736098383 Problem Chronic congestive heart failure, unspecified congestive heart failure type I50.9 Active 90841136 Problem Edema of both legs R60.0 Active 542768643 Problem Type 2 diabetes mellitus with diabetic polyneuropathy E11.42 Active 87747450 Problem Noncompliance with diabetes treatment Z91.19 Active 8456347 Problem Congestive heart failure, unspecified congestive heart failure chronicity, unspecified congestive heart failure type I50.9 Active 21114833 Problem Right lower quadrant abdominal pain R10.31 Active 258107613 Problem Port catheter in place Z95.828 Active 552634197 Problem Diarrhea, unspecified type R19.7 Active 33759249 Problem Stage 3 chronic kidney disease N18.3 Active 436047274 Problem Gastritis determined by endoscopy K29.70 Active 7177001 Problem Blister (nonthermal), right foot, initial encounter S90.821A Active 287112513 Problem Unspecified abdominal pain R10.9 Active 344949022 Problem Gastroparesis K31.84 Active 045386950 Problem Syncope, unspecified syncope type R55 Active 496739165 Problem Type 2 diabetes mellitus with diabetic autonomic (poly)neuropathy E11.43 Active 304960485 Problem Neck pain M54.2 Active 91142695 Problem Anxiety F41.9 Active 23742386 Problem Swelling of both lower extremities M79.89 Active 34213837058276906 Problem Epigastric pain R10.13 Active 23755923 Problem Thrush B37.0 Active 80869541 Problem Acquired hypothyroidism E03.9 Active 129178225 Problem Acute non-recurrent maxillary sinusitis J01.00 Active 84835014 Problem Essential hypertension I10 Active 07338236 Problem Seasonal allergic rhinitis, unspecified allergic rhinitis trigger J30.2 Active 961355046 Problem Acute pain of right shoulder M25.511 Active 90701359 Problem Postural hypotension I95.1 Active 95793031 ALLERGIES Unknown Allergies SOCIAL HISTORY No smoking Hx information available PLAN OF CARE VITAL SIGNS MEDICATIONS Medication Instructions Dosage Frequency Start Date End Date Duration Status Atenolol 50 mg Orally Once a day 2 tablet 24h Active [place] 5-325 MG Orally every 6 hrs 1 tablet as needed 6h 4 days Active Nystatin 552637 UNIT/GM Externally Twice a day apply to abdominal fold twice a day 12h Active Humulin R U-500 (Concentrated) 500 UNIT/ML Subcutaneous 3 times a day with meals 325 units Active Tylenol Extra Strength 500 MG Orally 3 times a day 2 tablets as needed 8h Active Zantac 150 MG Orally twice a day 1 tablet 12h 30 day(s) Active Nystatin 580793 UNIT/ML Mouth/Throat Four times a day 4 ml 6h 12 Mar, 2016 Active Levothyroxine Sodium 75 MCG Orally Once a day 1 tablet 24h Active Naproxen 500 MG Orally every 12 hrs 1 tablet as needed 12h 10 Jun, 2016 7 Jul, 2016 28 days Active Benadryl Allergy 25 MG Orally Once a day at bedtime 2 tablet as needed Active Temazepam 30 MG Orally Once a day 1 capsule at bedtime as needed 24h Active Losartan Potassium-HCTZ 100-25 MG Orally Once a day 1 tablet 24h Active Alprazolam 1 MG Orally Three times a day must last 28 days 1 tablet Active Furosemide 20 mg Orally Once a day 1 tablet 24h Active Gabapentin 800 MG Orally 4 times a day 1 tablet 6h Active Promethazine HCl 25 MG Orally 2 times a day 1 tablet as needed 12h 7 Aug 28 days Active Escitalopram Oxalate 20 mg Orally Once a day 1 tablet 24h 30 Active Luis Fernando Contour Test - In Vitro 3 times a day as directed 8h 05 Jan, 2016 Active Chantix 0.5 MG Orally Twice a day 1 tablet 12h 16 Apr, 2016 30 day(s) Active Oxygen 3L nasal canal Active Insulin Syringe 31G X 11/08 Active Tizanidine HCl 2 MG Orally Three times a day 1 tablet as needed 8h Active Seroquel XR 50MG TAKE TWO TABLETS BY MOUTH ONCE DAILY AT BEDTIME 28 Active RESULTS No Results PROCEDURES No Known procedures IMMUNIZATIONS No Known Immunizations
--- OUTSIDE RECORDS SUMMARY | 2017-03-16 00:02 | XMS REPORT ---
Author Author JOSE DOBBINS [facility] Address Unknown Care Team Providers Care Night Assistant Name Role Phone JOSE DOBBINS Unavailable PROBLEMS Type Condition ICD9-CM Code [id number] Code Onset Dates Condition Status SNOMED Code Problem Chronic pain syndrome G89.4 Active 458630604 Problem Type 2 diabetes mellitus with diabetic autonomic (poly)neuropathy E11.43 Active 416443844 Problem Screening breast examination Z12.39 Active 714512772 Problem Primary insomnia F51.01 Active 2072299 Problem Recurrent major depressive disorder, remission status unspecified F33.9 Active 78342188 Problem long-term 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 Active 386880837 Problem Tobacco abuse Z72.0 Active 973208068 Problem Severe episode of recurrent major depressive disorder, without 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 Active 49261330 Problem Anxiety, generalized F41.1 Active 75952800 Problem Seasonal allergic rhinitis, unspecified allergic rhinitis trigger J30.2 Active 226751852 Problem Weakness R53.1 Active 49636980 Problem Swelling of mandible R22.0 Active 319715516 Problem Vaginal bleeding N93.9 Active 789596829 Problem Seizure disorder G40.909 Active 471093367 Problem Self-inflicted injury Z72.89 Active 082930417 Problem Chronic superficial gastritis without bleeding K29.30 Active 067640408 Problem Blister (nonthermal), right foot, initial encounter S90.821A Active 268559162 Problem Edema of both legs R60.0 Active 158489660 Problem Noncompliance with diabetes treatment Z91.19 Active 7192747 Problem Right lower quadrant abdominal pain R10.31 Active 129395549 Problem Port catheter in place Z95.828 Active 754751699 Problem Chronic nausea R11.0 Active 151132125 Problem Stage 3 chronic kidney disease N18.3 Active 105352012 Problem Unspecified abdominal pain R10.9 Active 107928454 Problem Unspecified fall W19.XXXA Active 8351145 Problem Diarrhea, unspecified type R19.7 Active 76552196 Problem Gastritis determined by endoscopy K29.70 Active 6792317 Problem Epigastric pain R10.13 Active 66194554 Problem Thrush B37.0 Active 04310147 Problem Gastroparesis K31.84 Active 260798167 Problem Syncope, unspecified syncope type R55 Active 361492918 Problem Essential hypertension I10 Active 91362668 Problem Type 2 diabetes mellitus with diabetic polyneuropathy E11.42 Active 44764765 Problem Anxiety F41.9 Active 11718701 Problem Swelling of both lower extremities M79.89 Active 11072916629933805 Problem Congestive heart failure, unspecified congestive heart failure chronicity, unspecified congestive heart failure type I50.9 Active 25898138 Problem Postural hypotension I95.1 Active 87727351 Problem Acquired hypothyroidism E03.9 Active 839884736 Problem Acute non-recurrent maxillary sinusitis J01.00 Active 47865639 Problem Neck pain M54.2 Active 40144771 Problem Acute pain of right shoulder M25.511 Active 23488830 ALLERGIES Substance Reaction Event Type Date Status [...] prn Reason: VITAL SIGNS Height 62 in 2016-06-17 Blood pressure systolic 121 mmHg 2016-06-17 Blood pressure diastolic 72 mmHg 2016-06-17 MEDICATIONS Medication Instructions Dosage Frequency Start Date End Date Duration Status Benadryl Allergy 25 MG Orally Once a day at bedtime 2 tablet as needed Active Luis Fernando Contour Test - In Vitro 3 times a day as directed 8h 05 Jan, 2016 Active Furosemide 20 mg Orally Once a day 1 tablet 24h Active Atenolol 50 mg Orally Once a day 2 tablet 24h Active Chantix 0.5 MG Orally Twice a day 1 tablet 12h 16 Apr, 2016 30 day(s) Active Escitalopram Oxalate 20 mg Orally Once a day 1 tablet 24h 30 Active Zantac 150 MG Orally twice a day 1 tablet 12h 30 day(s) Active Bernie 5-325 MG Orally every 6 hrs 1 tablet as needed 6h 4 days Active Amoxicillin 500 MG Orally 4 times daily 1 capsule 7 days Active Levothyroxine Sodium 75 MCG Orally Once a day 1 tablet 24h Active Diflucan 150 MG Orally one time 1 tablet today and repeat in 10 days May, Active Nystatin 701739 UNIT/ML Mouth/Throat Four times a day 4 ml 6h 12 Mar, 2016 Active Temazepam 30 MG Orally Once a day 1 capsule at bedtime as needed 24h Active Promethazine HCl 25 MG TAKE ONE TABLET BY MOUTH EVERY 6 HOURS NEEDED 15 Active Seroquel XR 50MG TAKE TWO TABLETS BY MOUTH ONCE DAILY AT BEDTIME 28 Active Oxygen 3L nasal canal Active Alprazolam 1 MG Orally Three times a day must last 28 days 1 tablet Active Nystatin 926831 UNIT/GM Externally Twice a day apply to abdominal fold twice a day 12h Active Gabapentin 800 MG Orally 4 times a day 1 tablet 6h Active Losartan Potassium-HCTZ 100-25 MG Orally Once a day 1 tablet 24h Active Insulin Syringe 31G X 5/16 Active Escitalopram Oxalate 20MG Orally Once a day 1 tablet 24h 30 Active Pantoprazole Sodium 40 mg Orally Once a day 1 tablet 24h Active Tylenol 500 MG/15ML Orally Once a day @ HS 2 tablets Active Humulin R U-500 (Concentrated) 500 UNIT/ML Subcutaneous 3 times a day with meals 45 units or per sliding scale Active RESULTS No Results PROCEDURES Procedure Date Ordered Related Diagnosis Body Site LTD ORAL EVALUATION - PROBLEM FOCUS Jun 17, 2016 INTRAORL-PERIAPICAL 1 FILM [id number] Jun 17, 2016 IMMUNIZATIONS No Known Immunizations
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
[2017-03-16] MEDS ORDERED: NS IV 500 ML 500 ML IV ONE ×2 (00:58→02:31)
[2017-03-16 01:22] LABS: BASOPHILS # (AUTO) 0.1 10^3/uL (0.0-0.1); BASOPHILS % (AUTO) 1 % (0-10); EOSINOPHILS # (AUTO) 0.3 10^3/uL (0.0-0.3); EOSINOPHILS % (AUTO) 3 % (0-10); LYMPHOCYTES % (AUTO) 42 % (12-44); MEAN CORPUSCULAR HEMOGLOBIN 30 PG (25-34); MEAN CORPUSCULAR HGB CONC 33 G/DL (32-36); MEAN CORPUSCULAR VOLUME 91 FL (80-99); MONOCYTES # (AUTO) 0.6 X 10^3 (0.0-1.0); MONOCYTES % (AUTO) 6 % (0-12); NEUTROPHILS # (AUTO) 4.6 X 10^3 (1.8-7.8); NEUTROPHILS % (AUTO) 49 % (42-75); PLATELET COUNT 299 10^3/uL (130-400); RED BLOOD COUNT 3.64 10^6/uL (4.35-5.85); WHITE BLOOD COUNT 9.5 10^3/uL (4.3-11.0)
[2017-03-16 01:48] LABS: ALANINE AMINOTRANSFERASE 22 U/L (0-55); ALBUMIN 3.6 GM/DL (3.2-4.5); ANION GAP 12 MMOL/L (5-14); ASPARTATE AMINO TRANSFERASE 18 U/L (5-34); BILIRUBIN,TOTAL 0.3 MG/DL (0.1-1.0); BLOOD UREA NITROGEN 15 MG/DL (7-18); BUN/CREATININE RATIO 10; CALCIUM 8.8 MG/DL (8.5-10.1); CARBON DIOXIDE 23 MMOL/L (21-32); CHLORIDE 100 MMOL/L (98-107); CREATININE SERUM 1.46 MG/DL (0.60-1.30); GFR ESTIMATED 38; GLUCOSE 294 MG/DL (70-105); MAGNESIUM 1.7 MG/DL (1.8-2.4); POTASSIUM 3.7 MMOL/L (3.6-5.0); SODIUM 135 MMOL/L (135-145); TOTAL PROTEIN 6.6 GM/DL (6.4-8.2); hs C REACTIVE PROTEIN 0.55 MG/DL (0.00-0.50)
[2017-03-16 01:54] LABS: TROPONIN I < 0.30 NG/ML (<0.30)
[2017-03-16 02:01] LABS: BILIRUBIN,URINE NEGATIVE (NEGATIVE); KETONES,URINE NEGATIVE (NEGATIVE); LEUKOCYTE ESTERASE ,URINE 1+ (NEGATIVE); NITRITE,URINE NEGATIVE (NEGATIVE); PH,URINE 5 (5-9); PROTEIN,URINE 2+ (NEGATIVE); UROBILINOGEN,URINE NORMAL (NORMAL)
[2017-03-16 02:16] LABS: SQUAMOUS EPITHELIAL CELL,UR 25-50 /HPF
[2017-03-16 02:57] VITALS: BP 104/64
--- NOTE | 2017-03-16 07:50 | Diagnostic Imaging Report ---
EXAMINATION: Portable erect AP chest at 1:35 AM INDICATION: Chest pain The heart size is within normal limits and stable when compared to 04/12/16. The left-sided Port-A-Cath noted on the prior study is again evident and no different. Also, as on the prior exam there is elevation of the right hemidiaphragm. The lungs remain clear. There is still no sign of failure, pneumonia or a pleural effusion. The mediastinum is not widened. The osseous structures are intact. IMPRESSION: There is no evidence for acute cardiopulmonary abnormality. Dictated by: Dictated on workstation # [id number]
--- NOTE | 2017-03-16 07:52 | Diagnostic Imaging Report ---
Left foot at 1:37 AM. INDICATION: Injury. Foot pain. 3 views were obtained. There are transverse essentially nondisplaced fractures involving the bases of the second and third metatarsals. No other fracture or acute bony abnormality is identified. Even so, I would recommend that CT of the foot be obtained for a more sensitive evaluation of the injury to the midfoot. There is soft tissue edema over the midfoot. There is also a prominent calcaneal spur. IMPRESSION: There are nondisplaced fractures involving the bases of the second and third metatarsals. There is no acute bony abnormality noted, otherwise, but CT would be recommended for a more sensitive evaluation of the extent of the injury to the midfoot. Dictated by: Dictated on workstation # [id number]
== END 2017-03-16 02:57 | disposition home or self-care (01) ==
LOC: EDUNIT# 23:42 → ER 23:46
DX: E03.9 Hypothyroidism, unspecified; G47.30 Sleep apnea, unspecified; V02.90XA Pedestrian on foot injured in collision with two- or three-wheeled motor vehicle, unspecified whether traffic or nontraffic accident, initial encounter; E11.40 Type 2 diabetes mellitus with diabetic neuropathy, unspecified; I25.10 Atherosclerotic heart disease of native coronary artery without angina pectoris; Z95.5 Presence of coronary angioplasty implant and graft; J44.9 Chronic obstructive pulmonary disease, unspecified; Z90.710 Acquired absence of both cervix and uterus; F17.210 Nicotine dependence, cigarettes, uncomplicated; Z87.19 Personal history of other diseases of the digestive system; Z80.3 Family history of malignant neoplasm of breast; I50.9 Heart failure, unspecified; E78.00 Pure hypercholesterolemia, unspecified; G43.909 Migraine, unspecified, not intractable, without status migrainosus; S92.335A Nondisplaced fracture of third metatarsal bone, left foot, initial encounter for closed fracture; E86.0 Dehydration; Z90.49 Acquired absence of other specified parts of digestive tract; I11.0 Hypertensive heart disease with heart failure; Z90.89 Acquired absence of other organs; Z79.82 Long term (current) use of aspirin; F32.9 Major depressive disorder, single episode, unspecified; Z82.49 Family history of ischemic heart disease and other diseases of the circulatory system; S92.325A Nondisplaced fracture of second metatarsal bone, left foot, initial encounter for closed fracture; F41.9 Anxiety disorder, unspecified; G40.909 Epilepsy, unspecified, not intractable, without status epilepticus; K21.9 Gastro-esophageal reflux disease without esophagitis
CPT/HCPCS: 36415; 71010; 73630; 80053; 80306; 81000; 82962; 83735; 83880; 84484; 84703; 85025; 86141; 87088; 93005

== ENCOUNTER 2017-03-30 10:11 | Outpatient (RCR) | payer MEDICAID ==
[~2017-03-30 10:11] MED LIST changes: +LOSA1TAB23 PO; -LOSA1TAB70 PO; -NAPR500T3 PO; +NAPR500T4 PO
== END 2017-06-28 | disposition home or self-care (01) ==
LOC: CARD 10:11
PROVIDERS: ATTEND Internal Medicine Cardiovascular Disease
DX: I11.0 Hypertensive heart disease with heart failure (principal); I50.9 Heart failure, unspecified; J44.9 Chronic obstructive pulmonary disease, unspecified; R07.89 Other chest pain; E78.2 Mixed hyperlipidemia; E66.01 Morbid (severe) obesity due to excess calories
CPT/HCPCS: 93225; 93226

== ENCOUNTER → 2017-03-30 | Outpatient (CLI) | payer MEDICAID | LOC: CARD 10:06 | PROVIDERS: ATTEND Internal Medicine Cardiovascular Disease | DX: I11.0 Hypertensive heart disease with heart failure (principal); I50.9 Heart failure, unspecified; J44.9 Chronic obstructive pulmonary disease, unspecified; R07.89 Other chest pain; E66.01 Morbid (severe) obesity due to excess calories; E78.2 Mixed hyperlipidemia | CPT/HCPCS: 93306 ==

== ENCOUNTER → 2017-04-11 | Outpatient (CLI) | payer MEDICAID ==
[~2017-04-11] MED LIST changes: -LOSA1TAB23 PO; +LOSA1TAB70 PO; +NAPR500T3 PO; -NAPR500T4 PO
--- NOTE | 2017-04-11 19:55 | Diagnostic Imaging Report ---
EXAMINATION: Renal ultrasound. INDICATION: Renal failure. FINDINGS: The right kidney is 9.9 and the left kidney is 10.1 cm in length. No hydronephrosis or focal lesion is seen. The urinary bladder appears unremarkable. IMPRESSION: No hydronephrosis. Dictated by: Dictated on workstation # [id number]
== END ==
LOC: RAD 12:02
PROVIDERS: ATTEND Internal Medicine Nephrology
DX: N18.2 Chronic kidney disease, stage 2 (mild) (principal)
CPT/HCPCS: 76770

== ENCOUNTER → 2017-07-06 | Outpatient (CLI) | payer MEDICAID ==
[~2017-07-06] MED LIST changes: +LOSA1TAB23 PO; -LOSA1TAB70 PO; -NAPR500T3 PO; +NAPR500T4 PO
[2017-07-06 14:41] LABS: BILIRUBIN,URINE NEGATIVE (NEGATIVE); CLARITY,URINE CLEAR; COLOR,URINE YELLOW; GLUCOSE, URINE (UA) 2+ (NEGATIVE); KETONES,URINE NEGATIVE (NEGATIVE); LEUKOCYTE ESTERASE ,URINE NEGATIVE (NEGATIVE); NITRITE,URINE NEGATIVE (NEGATIVE); PH,URINE 6 (5-9); PROTEIN,URINE NEGATIVE (NEGATIVE); UROBILINOGEN,URINE NORMAL (NORMAL)
[2017-07-06 14:49] LABS: BACTERIA,URINE TRACE /HPF
[2017-07-06 14:50] LABS: BASOPHILS % (AUTO) 0 % (0-10); EOSINOPHILS # (AUTO) 0.2 10^3/uL (0.0-0.3); EOSINOPHILS % (AUTO) 1 % (0-10); HEMATOCRIT 34 % (35-52); HEMOGLOBIN 11.4 G/DL (11.5-16.0); LYMPHOCYTES # (AUTO) 3.6 X 10^3 (1.0-4.0); LYMPHOCYTES % (AUTO) 22 % (12-44); MEAN CORPUSCULAR HEMOGLOBIN 31 PG (25-34); MEAN CORPUSCULAR HGB CONC 34 G/DL (32-36); MEAN CORPUSCULAR VOLUME 91 FL (80-99); MEAN PLATELET VOLUME 9.3 FL (7.4-10.4); MONOCYTES # (AUTO) 0.6 X 10^3 (0.0-1.0); MONOCYTES % (AUTO) 4 % (0-12); NEUTROPHILS # (AUTO) 11.6 X 10^3 (1.8-7.8); NEUTROPHILS % (AUTO) 73 % (42-75); PLATELET COUNT 272 10^3/uL (130-400); RED BLOOD COUNT 3.72 10^6/uL (4.35-5.85); RED CELL DISTRIBUTION WIDTH 14.9 % (10.0-14.5)
[2017-07-06 15:03] LABS: ANISOCYTOSIS SLIGHT; BAND NEUTROPHILS 2 %; BASOPHILS % (MANUAL) 0 %; EOSINOPHILS % (MANUAL) 0 %; LYMPHOCYTES % (MANUAL) 26 %; MONOCYTES % (MANUAL) 8 %; NEUTROPHILS % (MANUAL) 64 %
[2017-07-06 15:05] LABS: ALBUMIN 3.6 GM/DL (3.2-4.5); BUN/CREATININE RATIO 8; CALCIUM 8.4 MG/DL (8.5-10.1); CARBON DIOXIDE 19 MMOL/L (21-32); CHLORIDE 102 MMOL/L (98-107); CREATININE SERUM 0.98 MG/DL (0.60-1.30); GFR ESTIMATED > 60; GLUCOSE 257 MG/DL (70-105); POTASSIUM 3.4 MMOL/L (3.6-5.0); SODIUM 135 MMOL/L (135-145)
== END ==
LOC: LAB 14:19
PROVIDERS: ATTEND Internal Medicine Nephrology
DX: E10.9 Type 1 diabetes mellitus without complications (principal)
CPT/HCPCS: 36415; 80069; 81000; 82043; 82570; 83036; 84156; 85007; 85027

== ENCOUNTER → 2017-07-19 | Outpatient (CLI) | payer MEDICAID ==
--- NOTE | 2017-07-19 17:06 | Diagnostic Imaging Report ---
Patient History: Bronchitis. Technique: Two views of the chest Comparison: 03/16/2017 FINDINGS: The lung volumes are normal. No focal consolidation is seen. No large pleural effusion or pneumothorax is seen. The cardiomediastinal silhouette is normal in size and contour. No acute osseous abnormality is seen. The left-sided Port-A-Cath tip projects over the cavoatrial junction. IMPRESSION: No acute pulmonary abnormality seen. Dictated by: Dictated on workstation # [id number]
--- NOTE | 2017-07-19 18:21 | Diagnostic Imaging Report ---
INDICATION: Fall with tailbone pain AP and lateral views of the sacrum and coccyx are obtained. No overt fracture or acute bony abnormality is seen. IMPRESSION: No overt fracture or acute bony abnormality. Dictated by: Dictated on workstation # [id number]
== END ==
LOC: RAD 16:28
PROVIDERS: ATTEND Nurse Practitioner Family
DX: M53.3 Sacrococcygeal disorders, not elsewhere classified (principal); J40 Bronchitis, not specified as acute or chronic; W19.XXXA Unspecified fall, initial encounter
CPT/HCPCS: 71046; 72220

== ENCOUNTER 2017-10-31 05:40 | Outpatient (CLI) | payer MEDICAID ==
[~2017-10-31] VITALS: Ht 157.5 cm; Wt 106.6 kg
[~2017-10-31 05:40] MED LIST changes: +NAPR-915 PO; -NAPR500T4 PO; -RANI150T15 PO; +RANI150T46 PO
[2017-10-31] MEDS ORDERED: LIRA0.6P3 SQ (13:12)
[2017-10-31] MEDS ORDERED: ALPR0.5T7 PO (13:12)
[2017-10-31] MEDS ORDERED: METO50TA15 PO (13:12)
[2017-10-31] MEDS ORDERED: AMIT25TA9 PO (13:12)
[2017-10-31] MEDS ORDERED: LOSA100T28 PO (13:12)
== END 2017-10-31 13:12 ==
LOC: PREOP 05:40
PROVIDERS: ATTEND Surgery
DX: Z01.818 Encounter for other preprocedural examination (principal); R13.10 Dysphagia, unspecified

== ENCOUNTER → 2017-11-27 | Outpatient (CLI) | payer MEDICAID ==
[~2017-11-27] MED LIST changes: +ALPR0.5T7 PO; +AMIT25TA9 PO; +ATOR10TA66 PO; +FLUT16SP22 NS; +INSU100I29 SQ; +LIRA0.6P3 SQ; +LOSA100T28 PO; +METO50TA15 PO; +OLOP5DRO13 OU; +POLY17PO6 PO; +QUET50TA76 PO; +SENN-148 PO; +TOPI50TA13 PO
[2017-11-27 16:47] LABS: BASOPHILS % (AUTO) 0 % (0-10); EOSINOPHILS % (AUTO) 0 % (0-10); HEMATOCRIT 37 % (35-52); HEMOGLOBIN 12.3 G/DL (11.5-16.0); LYMPHOCYTES # (AUTO) 1.3 X 10^3 (1.0-4.0); LYMPHOCYTES % (AUTO) 10 % (12-44); MEAN CORPUSCULAR HEMOGLOBIN 30 PG (25-34); MEAN CORPUSCULAR HGB CONC 33 G/DL (32-36); MEAN CORPUSCULAR VOLUME 91 FL (80-99); MONOCYTES # (AUTO) 0.2 X 10^3 (0.0-1.0); MONOCYTES % (AUTO) 1 % (0-12); NEUTROPHILS # (AUTO) 12.1 X 10^3 (1.8-7.8); NEUTROPHILS % (AUTO) 89 % (42-75); PLATELET COUNT 249 10^3/uL (130-400); WHITE BLOOD COUNT 13.6 10^3/uL (4.3-11.0)
[2017-11-27 16:58] LABS: BILIRUBIN,URINE NEGATIVE (NEGATIVE); CLARITY,URINE CLEAR; COLOR,URINE YELLOW; GLUCOSE, URINE (UA) 4+ (NEGATIVE); KETONES,URINE NEGATIVE (NEGATIVE); LEUKOCYTE ESTERASE ,URINE NEGATIVE (NEGATIVE); NITRITE,URINE NEGATIVE (NEGATIVE); PH,URINE 7 (5-9); PROTEIN,URINE NEGATIVE (NEGATIVE); UROBILINOGEN,URINE NORMAL (NORMAL)
[2017-11-27 17:07] LABS: ALBUMIN 3.9 GM/DL (3.2-4.5); BILIRUBIN,DIRECT 0.2 MG/DL (0.0-0.3); BILIRUBIN,INDIRECT 0.3 MG/DL; BILIRUBIN,TOTAL 0.5 MG/DL (0.1-1.0); TOTAL PROTEIN 7.4 GM/DL (6.4-8.2)
[2017-11-27 17:17] LABS: URINE CREATININE FOR RATIO 26 MG/DL (30-125); URINE PROTEIN FOR RATIO ONLY < 6 MG/DL (6-12)
[2017-11-27 17:21] LABS: BACTERIA,URINE TRACE /HPF; RBC,URINE RARE /HPF; SQUAMOUS EPITHELIAL CELL,UR 0-2 /HPF
[2017-11-27 17:31] LABS: BAND NEUTROPHILS 0 %; BASOPHILS % (MANUAL) 0 %; EOSINOPHILS % (MANUAL) 0 %; LYMPHOCYTES % (MANUAL) 12 %; MONOCYTES % (MANUAL) 0 %; NEUTROPHILS % (MANUAL) 88 %; RBC MORPH NORMAL
== END ==
LOC: LAB 15:57
PROVIDERS: ATTEND Internal Medicine Nephrology
DX: E10.9 Type 1 diabetes mellitus without complications (principal); N18.2 Chronic kidney disease, stage 2 (mild); I95.1 Orthostatic hypotension
CPT/HCPCS: 36415; 80076; 81000; 82306; 82570; 83036; 83970; 84156; 85007; 85027

== ENCOUNTER → 2017-11-27 | Outpatient (CLI) | payer MEDICAID ==
[~2017-11-27] MED LIST changes: +CATHETER FLUSH 10 ML SYR IV PRN; +IOHEXOL 350 MG/ML 100 ML (OMNIPAQUE 350) VIAL IV ONE; +NS 100 ML (IVPB) BAG IV ONE
--- NOTE | 2017-11-27 15:47 | Diagnostic Imaging Report ---
PROCEDURE: CT abdomen and pelvis with contrast. TECHNIQUE: Multiple contiguous axial images were obtained through the abdomen and pelvis after administration of intravenous contrast. INDICATION: Right lower quadrant abdominal pain with nausea, vomiting, and diarrhea. COMPARISON: Comparison made with prior examination from 07/16/2016. FINDINGS: The lung bases are clear. The liver is normal in size without focal lesions. Gallbladder is unremarkable. There is no biliary ductal dilatation. The spleen is normal. The pancreas and adrenal glands are unremarkable. The kidneys are normal in appearance. The aorta is nonaneurysmal. Bowel gas pattern is nonspecific. There is no free air. There is no ascites. There are no focal inflammatory changes. There has been a previous hernia repair. There is no CT evidence of appendicitis. The appendix may be surgically absent. There are minimal degenerative changes in the spine. There is a moderate amount of retained fecal material which may reflect some degree of constipation. IMPRESSION: Moderate amount of retained fecal material which may reflect some degree of constipation. Previous hernia repair. No other acute abnormality in the abdomen or pelvis. Dictated by: Dictated on workstation # [id number]
== END ==
LOC: RAD 14:55
PROVIDERS: ATTEND Nurse Practitioner Primary Care
DX: R10.31 Right lower quadrant pain (principal); R11.2 Nausea with vomiting, unspecified; R19.7 Diarrhea, unspecified
CPT/HCPCS: 74177

== ENCOUNTER → 2017-11-30 | Outpatient (CLI) | payer MEDICAID ==
[~2017-11-30] MED LIST changes: -CATHETER FLUSH 10 ML SYR IV PRN; -IOHEXOL 350 MG/ML 100 ML (OMNIPAQUE 350) VIAL IV ONE; -NS 100 ML (IVPB) BAG IV ONE
== END ==
LOC: CARD 12:26
PROVIDERS: ATTEND Internal Medicine Cardiovascular Disease
DX: R07.89 Other chest pain (principal); I11.0 Hypertensive heart disease with heart failure; I50.9 Heart failure, unspecified; E78.5 Hyperlipidemia, unspecified; R00.2 Palpitations
CPT/HCPCS: 93306

== ENCOUNTER 2017-12-04 19:22 | Observation (INO) | payer MEDICAID ==
[~2017-12-04] VITALS: Ht 157.5 cm; Wt 112.0 kg
[~2017-12-04 19:22] MED LIST changes: -ATOR10TA66 PO; -FLUT16SP22 NS; -INSU100I29 SQ; -OLOP5DRO13 OU; -POLY17PO6 PO; -QUET50TA76 PO; -SENN-148 PO; -TOPI50TA13 PO
--- OUTSIDE RECORDS SUMMARY | 2017-12-04 19:29 | XMS REPORT ---
Author Author CHACE CABRAL Organization [facility] Address [address] [place] [address] Care Team Providers Care Client Engagement Manager Name Role Phone CHACE CABRAL Unavailable PROBLEMS Type Condition ICD9-CM Code [id number] Code Onset Dates Condition Status SNOMED Code Problem [facility] 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 Active 526357862 Problem Recurrent major depressive disorder, remission status unspecified F33.9 Active 26690054 Problem Severe episode of recurrent major depressive disorder, without 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 Active 70261176 Problem Tobacco abuse Z72.0 Active 950732337 Problem Anxiety, generalized F41.1 Active 49575510 Problem Weakness R53.1 Active 99178814 Problem Stage 3 chronic kidney disease N18.3 Active 513655534 Problem Vaginal bleeding N93.9 Active 295529479 Problem Chronic nausea R11.0 Active 729493385 Problem Right lower quadrant abdominal pain R10.31 Active 693855542 Problem Self-inflicted injury Z72.89 Active 825156992 Problem Noncompliance with diabetes treatment Z91.19 Active 7086632 Problem Unspecified fall W19.XXXA Active 4596471 Problem Type 2 diabetes mellitus with diabetic polyneuropathy E11.42 Active 72681624 Problem Gastritis determined by endoscopy K29.70 Active 6771851 Problem Unspecified abdominal pain R10.9 Active 562776841 Problem Diarrhea, unspecified type R19.7 Active 66359665 Problem Left hip pain M25.552 Active 16736804 Problem Closed nondisplaced fracture of second metatarsal bone of left foot, initial encounter S92.325A Active 24160012 Problem Neck pain M54.2 Active 98717630 Problem Thrush B37.0 Active 10875402 Problem Anxiety F41.9 Active 10840984 Problem Swelling of both lower extremities M79.89 Active [id number] Problem Essential hypertension I10 Active 70465338 Problem Edema of both legs R60.0 Active 913650530 Problem Acquired hypothyroidism E03.9 Active 290522777 Problem Blister (nonthermal), right foot, initial encounter S90.821A Active 975290883 Problem Congestive heart failure, unspecified congestive heart failure chronicity, unspecified congestive heart failure type I50.9 Active 63370361 Problem Closed nondisplaced fracture of third metatarsal bone of left foot, initial encounter S92.335A Active 658161701 Problem Port catheter in place Z95.828 Active 615019207 Problem Chronic congestive heart failure, unspecified congestive heart failure type I50.9 Active 03363380 Problem Primary insomnia F51.01 Active 8601383 Problem Postural hypotension I95.1 Active 93500804 Problem Screening breast examination Z12.39 Active 153052765 Problem Acute non-recurrent maxillary sinusitis J01.00 Active 00617909 Problem Type 2 diabetes mellitus with diabetic autonomic (poly)neuropathy E11.43 Active 857095298 Problem Syncope, unspecified syncope type R55 Active 434000905 Problem Chronic pain syndrome G89.4 Active 549315776 Problem Acute pain of right shoulder M25.511 Active 68945407 Problem Epigastric pain R10.13 Active 87137964 Problem Seizure disorder G40.909 Active 379600414 Problem Gastroparesis K31.84 Active 657494955 Problem Chronic superficial gastritis without bleeding K29.30 Active 941972530 Problem Seasonal allergic rhinitis, unspecified allergic rhinitis trigger J30.2 Active 046362717 Problem Swelling of mandible R22.0 Active 439807125 ALLERGIES Substance Reaction Event Type Date Status [...] Non Drug Allergy Jul, Active SOCIAL HISTORY Never Assessed PLAN OF CARE Activity Details Follow Up prn Reason: VITAL SIGNS Height 62 in 2016-08-01 Weight 258.2 lbs 2016-08-01 Temperature 97.6 degrees Fahrenheit 2016-08-01 Heart Rate 80 bpm 2016-08-01 Respiratory Rate 18 2016-08-01 BMI 47.22 kg/m2 2016-08-01 Blood pressure systolic 122 mmHg 2016-08-01 Blood pressure diastolic 76 mmHg 2016-08-01 MEDICATIONS Medication Instructions Dosage Frequency Start Date End Date Duration Status Naproxen 500 MG Orally every 12 hrs 1 tablet as needed 12h 10 Jun, 2016 7 Jul, 2016 28 days Active Losartan Potassium-HCTZ 100-25 MG Orally Once a day 1 tablet 24h Active Humulin R U-500 (Concentrated) 500 UNIT/ML Subcutaneous 3 times a day with meals 325 units Active Chantix 0.5 MG Orally Twice a day 1 tablet 12h 16 Apr, 2016 30 day(s) Active Atenolol 50 mg Orally Once a day 2 tablet 24h Active Temazepam 30 MG Orally Once a day 1 capsule at bedtime as needed 24h Active Insulin Syringe 31G X 5/16 Active Gabapentin 800 MG Orally 4 times a day 1 tablet 6h Active Nystatin 560748 UNIT/GM Externally Twice a day apply to abdominal fold twice a day 12h Active Promethazine HCl 25 MG Orally 2 times a day 1 tablet as needed 12h 28 days Active Luis Fernando Contour Test - In Vitro 3 times a day as directed 8h Jan, Active Clindamycin HCl 150 MG Orally three times 1 capsule Jul, 9 Jul, 2016 7 days Active Alprazolam 1 MG Orally Three times a day must last 28 days 1 tablet Active Benadryl Allergy 25 MG Orally Once a day at bedtime 2 tablet as needed Active Tizanidine HCl 4 MG Orally Three times a day 1 tablet as needed 8h Active Nystatin 834836 UNIT/ML Mouth/Throat Four times a day 4 ml 6h 12 Mar, 2016 Active Diflucan 150 MG Orally Take one tablet today and repeat in 72 hours if still continuing to have symptoms as directed Jul, Jul, 4 days Active Tylenol Extra Strength 500 MG Orally 3 times a day 2 tablets as needed 8h Active Furosemide 20 mg Orally Once a day 1 tablet 24h Active Seroquel XR 50MG TAKE TWO TABLETS BY MOUTH ONCE DAILY AT BEDTIME 28 Active Zantac 150 MG Orally twice a day 1 tablet 12h 30 day(s) Active Levothyroxine Sodium 75 MCG Orally Once a day 1 tablet 24h Active Oxygen 3L nasal canal Active Escitalopram Oxalate 20 mg Orally Once a day 1 tablet 24h 30 Active RESULTS No Results PROCEDURES No Known procedures IMMUNIZATIONS No Known Immunizations MEDICAL (GENERAL) HISTORY Type Description Date Medical History congestive heart failure Medical History diabetes mellitus, uncontrolled Medical History fibromyalgia per Dr. Holt Medical History chronic thrush Medical History bulging disc(s) Medical History neuropathy Medical History Diabetic Foot Ulcer Medical History hypothyroidism Medical History Abnormal breast imaging Medical History Anxiety Medical History Depression Medical History gastroparesis Medical History CONTROLLED SUB VIOLATION Medical History Chronic gastritis per EGD Medical History 12-21-16 Normal Colonoscopy with stage 2 external and internal hemorrhoids Surgical History cholecystectomy Surgical History appendectomy Surgical History dilatation and curettage, partial Surgical History ruptured uterus during delivery Surgical History ruptured placenta during delivery Surgical History stent placement-Verito Surgical History section x4 Surgical History Mesh on left side of stomach Surgical History Poratacath Placement/Venous Access Device-Left subclavian vein (port for IV access) Dr. Hernandez [facility] 08-29-2013 Surgical History partial hysterectomy Surgical History EGD Hospitalization History transfusion given after delivery Hospitalization History Chest pain, uncontrolled Hyperglycemia--[facility] 12/15/15 Hospitalization History Influenza B Hospitalization History pneumonia Hospitalization History [facility] 07/16/16 Hospitalization History for high sugar 07/12
--- OUTSIDE RECORDS SUMMARY | 2017-12-04 19:29 | XMS REPORT | Clinical Summary ---
Author Author [facility] Organization [facility] Address Unknown Phone Unavailable Care Team Providers Care Loft Worker Head Name Role Phone Richard Maria DO Unavailable Richard Maria DO PCP Source Comments Some departments are not documenting in the electronic medical record. If you do not see the information that you expected, contact Release of Information in the Health Information Management department at [phone] for further assistance in locating additional records.[facility] Allergies Not on File Current Medications Not on file Active Problems Not on file Social History Tobacco Use Types Packs/Day Years Used Date Never Assessed Sex Assigned at Date Recorded Not on file Last Filed Vital Signs Not on file Plan of Treatment Health Maintenance Due Date Last Done Comments PHYSICAL (COMPREHENSIVE) 1976 EXAM PERTUSSIS VACCINE 1980 HIV SCREENING 1984 TETANUS VACCINE 1986 CERVICAL CANCER SCREENING 09/01/1999 BREAST CANCER SCREENING 2009 INFLUENZA VACCINE 03/26/2018 Results Not on filefrom Last 3 Months
--- OUTSIDE RECORDS SUMMARY | 2017-12-04 19:31 | XMS REPORT ---
Author Author ABHINAV FLOYD Organization [facility] Address [address] [place] [address] Care Team Providers Care Nail Expert Name Role Phone ABHINAV FLOYD Unavailable PROBLEMS Type Condition ICD9-CM Code DDG04-VG Code Onset Dates Condition Status SNOMED Code Problem Postural hypotension I95.1 Active 42696434 Problem Seizure disorder G40.909 Active 459137580 Problem Seasonal allergic rhinitis, unspecified allergic rhinitis trigger J30.2 Active 969809005 Problem Closed nondisplaced fracture of second metatarsal bone of left foot, initial encounter S92.325A Active 50134829 Problem Essential hypertension I10 Active 12059178 Problem Multiple neurological symptoms R29.90 Active 211565434 Problem Port catheter in place Z95.828 Active 364015685 Problem Stage 3 chronic kidney disease N18.3 Active 508255422 Problem Gastritis determined by endoscopy K29.70 Active 2527788 Problem Self-inflicted injury Z72.89 Active 167078545 Problem Borderline personality disorder in adult F60.3 Active 78898822 Problem Chronic congestive heart failure, unspecified congestive heart failure type I50.9 Active 28137695 Problem Chronic pain syndrome G89.4 Active 854199783 Problem Primary insomnia F51.01 Active 5978748 Problem Acquired hypothyroidism E03.9 Active 297859649 Problem Gastroparesis K31.84 Active 968592768 Problem Severe episode of recurrent major depressive disorder, without 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 Active 37971181 Problem Anxiety, generalized F41.1 Active 22533346 Problem long-term 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 Active 499151490 Problem Type 2 diabetes mellitus with diabetic polyneuropathy E11.42 Active 79010914 Problem Tobacco abuse Z72.0 Active 762936519 Problem Noncompliance with diabetes treatment Z91.19 Active 6872776 ALLERGIES No Information ENCOUNTERS Encounter Location Date Diagnosis [facility] [address] [facility] [id number] [address] October, [facility] [id number] [id number] Sep, [facility] [id number] [place] [address] 98364- 9092 Sep, [facility] [address] [address] Sep, [facility] [id number] [place] [address] 36267- 1819 Sep, [facility] [id number] [place] [address] 08380- 4698 Sep, Chronic pain syndrome G89.4 ; Anxiety, generalized F41.1 and BMI 45.0-49.9, adult Z68.42 [facility] [id number] [place] [address] 87184- 8041 Sep, [facility] [id number] [place] [address] 62131- 1324 Sep, [facility] [id number] [place] [address] 23053- 0312 Sep, Severe episode of recurrent major depressive disorder, without 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 ; Anxiety, generalized F41.1 and Borderline personality disorder in adult F60.3 [facility] [address] [address] Sep, [facility] [address], [place] [address] Aug, Dysuria R30.0 ; Type 2 diabetes mellitus with diabetic polyneuropathy E11.42 ; Oral abscess K12.2 and BMI 40.0-44.9, adult Z68.41 [facility] [address] [address] Aug, [facility] [address] [address] Aug, [facility] [id number] [address] 27 Aug, 2017 [facility] [address] [place] [address] 62954- 6747 27 Aug, 2017 [facility] [address] [address] 27 Aug, 2017 Severe episode of recurrent major depressive disorder, without 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 ; Anxiety, generalized F41.1 and Borderline personality disorder in adult F60.3 [facility] [address] [address] 22 Aug, 2017 [facility] [id number] [place] [address] 47352- 2022 20 Aug, 2017 [facility] [address] [place] [address] 71177- 3550 19 Aug, 2017 Severe episode of recurrent major depressive disorder, without 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 ; Anxiety, generalized F41.1 and Borderline personality disorder in adult F60.3 [facility] [id number], [place] [address] 17 Aug, 2017 [facility] [address], [place] [address] 12[address] 15 Aug, 2017 [facility] [address] [address] 35[address] 14 Aug, 2017 [facility] [address], [place] [address] 14 Aug, 2017 Dysuria R30.0 ; Dental infection K04.7 ; Acute cystitis with hematuria N30.01 and BMI 45.0-49.9, adult Z68.42 [facility] [address], [place] [address] 14 Aug, 2017 Severe episode of recurrent major depressive disorder, without 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 ; Anxiety, generalized F41.1 and Borderline personality disorder in adult F60.3 [facility] [address], [place] [address] Aug, [facility] [address] [address] Aug, Closed nondisplaced fracture of second metatarsal bone of left foot, initial encounter S92.325A and Chronic pain syndrome G89.4 [facility] [address] [address] Aug, Type 2 diabetes mellitus with diabetic polyneuropathy E11.42 [facility] [address], [place] [address] Aug, Severe episode of recurrent major depressive disorder, without 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 ; Anxiety, generalized F41.1 and Borderline personality disorder in adult F60.3 [facility] [address], [place] [address] Aug, [facility] [address], [place] [address] Aug, [facility] [address] [address] 3817 Aug, [facility] [address], [place] [address] 4041 Aug, [facility] [address] [address] 8[address] Aug, [facility] [address] [address] 3[address] Jul, [facility] [id number], [place] [address] 18[address] Jul, [facility] [address], [place] [address] Jul, Severe episode of recurrent major depressive disorder, without 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 ; Anxiety, generalized F41.1 and Borderline personality disorder in adult F60.3 [facility] [address] [address] Jul, Type 2 diabetes mellitus with diabetic polyneuropathy E11.42 [id number] [place] [address] 25874- 6553 Jul, Closed nondisplaced fracture of second metatarsal bone of left foot, initial encounter S92.325A and Closed nondisplaced fracture of third metatarsal bone of left foot, initial encounter S92.335A [facility] [id number] [place] [address] 96423- 2231 Jul, [facility] [id number] [place] [address] 83580- 1277 Jul, Closed nondisplaced fracture of second metatarsal bone of left foot, initial encounter S92.325A ; Acute left ankle pain M25.572 ; Acute midline low back pain without sciatica M54.5 and Seasonal allergic rhinitis, unspecified allergic rhinitis trigger J30.2 [address] [id number] [place] [address] 13440- 0717 Jul, [facility] [id number] [place] [address] 42193- 7202 Jul, [facility] [id number] [place] [address] 61403- 2245 Jul, [facility] [id number] [place] [address] 05135- 3984 Jul, Frequent falls R29.6 [facility] [id number] [place] [address] 11436- 6690 14 Jul, 2017 Frequent falls R29.6 [facility] [id number] [place] [address] 62814- 1031 07 Jul, 2017 Severe episode of recurrent major depressive disorder, without 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 ; Anxiety, generalized F41.1 and Borderline personality disorder in adult F60.3 [facility] [id number] [place] [address] 11434- 1946 07 Jul, 2017 Chronic pain syndrome G89.4 [facility] [address] [place] [address] 84403- 8647 Jul, 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 [facility] [id number] [place] [address] 28432- 1092 Jul, [facility] [id number] [place] [address] 80812- 5855 Jul, Type 2 diabetes mellitus with diabetic polyneuropathy E11.42 [facility] [id number] [place] [address] 44077- 5404 Jun, 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 and Thrush B37.0 [facility] [id number] [place] [address] 47025- 9344 Jun, Severe episode of recurrent major depressive disorder, without 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 ; Anxiety, generalized F41.1 and Borderline personality disorder in adult F60.3 [facility] [id number] [place] [address] 21945- 1114 Jun, Severe episode of recurrent major depressive disorder, without 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 ; Anxiety, generalized F41.1 and Borderline personality disorder in adult F60.3 [address] [address] [place] [address] 90323- 4348 Jun, Frequent falls R29.6 ; Bronchitis J40 ; BMI 40.0-44.9, adult Z68.41 and Coccygeal pain, acute M53.3 [facility] [address] [place] [address] 06682- 5603 Jun, [facility] [id number] [place] [address] 62168 -9475 Jun, [facility] [id number] [place] [address] 02403- 6367 Jun, [facility] [id number] [place] [address] 23624- 7971 Jun, Dental caries, unspecified K02.9 [facility] [address] [place] [address] 78760- 3717 Jun, Acute non-recurrent maxillary sinusitis J01.00 and BMI 40.0- 44.9, adult Z68.41 [facility] [id number] [place] [address] 85451- 5971 Jun, [facility] [id number] [place] [address] 44524- 0302 Jun, Severe episode of recurrent major depressive disorder, without 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 ; Anxiety, generalized F41.1 and Borderline personality disorder in adult F60.3 [facility] [id number] [place] [address] 38507- 2227 Jun, Closed nondisplaced fracture of third metatarsal bone of left foot with routine healing, subsequent encounter S92.335D ; Closed nondisplaced fracture of second metatarsal bone of left foot with routine healing, subsequent encounter S92.325D and Closed nondisplaced fracture of fourth metatarsal bone of left foot with routine healing, subsequent encounter S92.345D [facility] [id number] [place] [address] 59042- 0123 Jun, Severe episode of recurrent major depressive disorder, without 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 ; Anxiety, generalized F41.1 and Borderline personality disorder in adult F60.3 [address] [id number] [place] [address] 53928- 1991 Jun, [address] [facility] [id number] [place] [address] 62525- 0705 Jun, [facility] [id number] [place] [address] 78163- 8074 Jun, [facility] [id number] [place] [address] 84254- 7872 Jun, [facility] [id number] [place] [address] 83312- 2705 Jun, [facility] [id number] [place] [address] 40416- 1699 Jun, Anxiety F41.9 [address] [facility] [id number] [place] [address] 08536- 0852 Jun, [facility] [id number] [place] [address] 37950- 5670 Jun, [facility] [id number] [place] [address] 56583- 0503 Jun, Type 2 diabetes mellitus with diabetic autonomic (poly) neuropathy E11.43 [address] 52545- 7356 Jun, Severe episode of recurrent major depressive disorder, without 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 ; Anxiety, generalized F41.1 and Borderline personality disorder in adult F60.3 [address] 79054- 7286 Jun, Type 2 diabetes mellitus with diabetic autonomic (poly) neuropathy E11.43 and Chronic pain syndrome G89.4 [facility] [id number] [place] [address] 77370- 0939 May, Recent urinary tract infection Z87.440 ; Deliberate self- cutting Z72.89 ; Chest discomfort R07.89 ; BMI 40.0-44.9, adult Z68.41 and Worried well Z71.1 [place] [facility] [id number] [place] [address] 58547- 9901 May, Severe episode of recurrent major depressive disorder, without 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 ; Anxiety, generalized F41.1 and Borderline personality disorder in adult F60.3 [facility] [id number] [place] [address] 90257- 3420 18 May, 2017 [facility] [id number] [place] [address] 61010- 5692 14 May, 2017 [facility] [id number] [place] [address] 86524- 7476 May, Type 2 diabetes mellitus with diabetic autonomic (poly) neuropathy E11.43 [facility] [id number] [place] [address] 61794- 8669 May, Severe episode of recurrent major depressive disorder, without 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 ; Anxiety, generalized F41.1 and Borderline personality disorder in adult F60.3 [place] [facility] [id number] [place] [address] 50509- 3056 May, [address] [facility] [address] 07175- 7654 May, Type 2 diabetes mellitus with diabetic autonomic (poly) neuropathy E11.43 ; Multiple neurological symptoms R29.90 ; Dysuria R30.0 ; Tobacco abuse Z72.0 ; Right hip pain M25.551 ; Anxiety F41.9 ; Gastritis determined by endoscopy K29.70 ; Chronic pain syndrome G89.4 ; Acute non- recurrent maxillary sinusitis J01.00 ; Self mutilating behavior Z72.89 and BMI 40.0-44.9, adult Z68.41 [address] [id number] [place] [address] 10610- 0314 May, Severe episode of recurrent major depressive disorder, without 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 ; Anxiety, generalized F41.1 and Borderline personality disorder in adult F60.3 [place] [id number] [place] [address] 09512- 3587 Apr, [facility] [id number] [place] [address] 79925- 1593 Apr, [facility] [id number] [place] [address] 93091 -6640 Apr, [facility] [address] [place] [place] [id number] [place] [address] 14089 -3019 Apr, Aspiration pneumonia of right lower lobe, unspecified aspiration pneumonia type J69.0 [id number] [place] [address] 28320- 2331 Apr, Severe episode of recurrent major depressive disorder, without 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 ; Anxiety, generalized F41.1 and Borderline personality disorder in adult F60.3 [facility] [id number] [place] [address] 70776- 4946 Apr, [facility] [id number] [place] [address] 34358- 6527 Apr, Chronic pain syndrome G89.4 [facility] [id number] [place] [address] 57948- 6011 Apr, Severe episode of recurrent major depressive disorder, without 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 ; Anxiety, generalized F41.1 and Borderline personality disorder in adult F60.3 [facility] [id number] [place] [address] 36657- 9954 16 Apr, 2017 Severe episode of recurrent major depressive disorder, without 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 ; Anxiety, generalized F41.1 and Borderline personality disorder in adult F60.3 [facility] [id number] [place] [address] 12941- 2970 16 Apr, 2017 Closed nondisplaced fracture of third metatarsal bone of left foot with routine healing, subsequent encounter S92.335D ; Closed nondisplaced fracture of fourth metatarsal bone of left foot with routine healing, subsequent encounter S92.345D and Closed nondisplaced fracture of second metatarsal bone of left foot with routine healing, subsequent encounter S92.325D [facility] [facility] [address] [place] [address] 52171- 8198 16 Apr, 2017 [place] [address] [place] [address] 92409- 4298 15 Apr, 2017 [place] [id number] [place] [address] 58410- 9738 14 Apr, 2017 [place] [facility] [id number] [place] [address] 58714- 9591 13 Apr, 2017 Screening breast examination Z12.31 [facility] [id number] [place] [address] 47272- 1946 Apr, [facility] [id number] [place] [address] 14586- 3721 Apr, Type 2 diabetes mellitus with diabetic autonomic (poly) neuropathy E11.43 [facility] [id number] [place] [address] 36368- 2025 Apr, Severe episode of recurrent major depressive disorder, without 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 ; Anxiety, generalized F41.1 and Borderline personality disorder in adult F60.3 [facility] [address] 77002- 5329 Apr, Type 2 diabetes mellitus with diabetic autonomic (poly) neuropathy E11.43 ; Chronic pain syndrome G89.4 and Anxiety F41.9 [facility] [id number] [place] [address] 88397 -7698 Apr, BMI 45.0-49.9, adult Z68.42 [facility] [address] 76158 -2370 Apr, Avulsion of toenail, initial encounter S91.209A and Acute non-recurrent maxillary sinusitis J01.00 [place] [id number] [place] [address] 91313- 3162 Apr, [facility] [id number] [place] [address] 78887- 2065 Mar, [facility] [id number] [place] [address] 44014- 9613 Mar, Severe episode of recurrent major depressive disorder, without 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 ; Anxiety, generalized F41.1 and Borderline personality disorder in adult F60.3 [facility] [address] 81856- 3976 Mar, [facility] [id number] [place] [address] 42786- 8336 Mar, [facility] [address] 44766- 8401 Mar, [facility] [address], [place] [address]- 1032 Mar, Seizure disorder G40.909 [facility] [address], [place] [address]- 6415 Mar, [facility] [address] [place] [address] 43830- 2159 Mar, [facility] [address] [place] [address] 48558 -0962 Mar, Left foot pain M79.672 ; Stage 3 chronic kidney disease N18.3 and Closed nondisplaced fracture of second metatarsal bone of left foot, initial encounter S92.325A [facility] [id number] [place] [address] 67120- 2394 Mar, Severe episode of recurrent major depressive disorder, without 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 and Anxiety, generalized F41.1 [facility] [address] [place] [address] 93845- 4519 Mar, [facility] [id number] [place] [address] 66332- 2940 Mar, Closed nondisplaced fracture of second metatarsal bone of left foot, initial encounter S92.325A and Closed nondisplaced fracture of third metatarsal bone of left foot, initial encounter S92.335A [facility] [address] [place] [address] 56068- 4524 Mar, Seizure disorder G40.909 [facility] [address], [place] [address]- 1477 Mar, [facility] [id number] [place] [address] 89432- 3168 Mar, [facility] [address], [place] [address]- 4654 Mar, [facility] [address] [place] [address]- 1504 Mar, [facility] [id number] [place] [address] 77508- 9944 Mar, High risk sexual behavior Z72.51 [facility] [id number] [place] [address] 37665- 5270 Mar, Severe episode of recurrent major depressive disorder, without 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 and Anxiety, generalized F41.1 [facility] [id number] [place] [address] 72706- 0532 Mar, Anxiety F41.9 and Type 2 diabetes mellitus with diabetic autonomic (poly)neuropathy E11.43 [facility] [id number] [place] [address] 36361- 1986 Mar, Anxiety F41.9 [facility] [id number] [place] [address] 13622- 4426 Mar, High risk sexual behavior Z72.51 [facility] [id number] [place] [address] 98530- 1551 Mar, Chronic pain syndrome G89.4 [facility] [id number] [place] [address] 30612- 5930 Mar, Type 2 diabetes mellitus with diabetic autonomic (poly) neuropathy E11.43 [facility] [id number] [place] [address] 05135- 9059 Mar, [facility] [id number] [place] [address] 99252- 9987 Mar, Closed nondisplaced fracture of second metatarsal bone of left foot, initial encounter S92.325A ; Chronic pain syndrome G89.4 ; Closed nondisplaced fracture of third metatarsal bone of left foot, initial encounter S92.335A ; Acute left ankle pain M25.572 and Type 2 diabetes mellitus with diabetic autonomic (poly)neuropathy E11.43 [place] [id number] [place] [address] 02445- 1160 Mar, [facility] [address], [place] [address]- 7233 Mar, [facility] [id number] [place] [address] 08328- 5113 Mar, Severe episode of recurrent major depressive disorder, without 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 and Anxiety, generalized F41.1 [facility] [id number] [place] [address] 29942- 0850 Feb, [facility] [address] [place] [address] 58662- 7773 Feb, Renal insufficiency N28.9 [facility] [id number] [place] [address] 55835- 0154 Feb, [facility] [id number] [place] [address] 51018- 6654 Feb, Severe episode of recurrent major depressive disorder, without 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 and Anxiety, generalized F41.1 [facility] [address] [place] [address] 40126- 4476 Feb, [facility] [id number] [place] [address] 99681- 5996 22 Feb, 2017 [facility] [id number] [place] [address] 51844- 4211 Feb, Renal insufficiency N28.9 [facility] [id number] [place] [address] 37659- 9610 19 Feb, 2017 [facility] [id number] [place] [address] 58364 -3125 18 Feb, 2017 [facility] [id number] [place] [address] 15112- 1012 14 Feb, 2017 [facility] [id number] [place] [address] 69655- 5073 13 Feb, 2017 Severe episode of recurrent major depressive disorder, without 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 and Anxiety, generalized F41.1 [facility] [id number] [address] 6759 13 Feb, 2017 Closed nondisplaced fracture of second metatarsal bone of left foot, initial encounter S92.325A ; Chronic pain syndrome G89.4 ; Closed nondisplaced fracture of third metatarsal bone of left foot, initial encounter S92.335A ; Left hip pain M25.552 and Stage 3 chronic kidney disease N18.3 [facility] [id number] [place] [address] 44612- 7180 07 Feb, 2017 [facility] [id number] [place] [address] 26800- 3141 Feb, [facility] [id number] [place] [address] 30115- 1815 Feb, Closed nondisplaced fracture of second metatarsal bone of left foot, initial encounter S92.325A and Closed nondisplaced fracture of third metatarsal bone of left foot, initial encounter S92.335A [place] [id number] [place] [address] 13833- 5813 Feb, [facility] [id number] [place] [address] 01950- 2547 Feb, Anxiety F41.9 [facility] [id number] [place] [address] 43646- 3122 Feb, [facility] [id number] [place] [address] 96157- 1330 Feb, Chronic pain syndrome G89.4 [facility] [id number] [place] [address] 39053- 6047 05 Feb, 2017 Left foot pain M79.672 ; Closed nondisplaced fracture of second metatarsal bone of left foot, initial encounter S92.325A ; Closed nondisplaced fracture of third metatarsal bone of left foot, initial encounter S92.335A and Oral infection K12.2 [facility] [id number] [place] [address] 81795- 5597 Feb, [facility] [id number] [place] [address] 49024- 8157 Jan, [place] [id number] [place] [address] 12330- 5559 Jan, Type 2 diabetes mellitus with diabetic autonomic (poly) neuropathy E11.43 and Congestive heart failure, unspecified congestive heart failure chronicity, unspecified congestive heart failure type I50.9 [place] [id number] [place] [address] 30653- 9242 Jan, Congestive heart failure, unspecified congestive heart failure chronicity, unspecified congestive heart failure type I50.9 and Stage 3 chronic kidney disease N18.3 [place] [id number] [place] [address] 60820- 8555 Jan, Stage 3 chronic kidney disease N18.3 ; Edema of both legs R60.0 ; Chronic congestive heart failure, unspecified congestive heart failure type I50.9 ; Acute low back pain without sciatica, unspecified back pain laterality M54.5 ; Chronic nausea R11.0 and Primary insomnia F51.01 [place] [id number] [place] [address] 95084- 1181 Jan, Severe episode of recurrent major depressive disorder, without 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 and Anxiety, generalized F41.1 [place] [id number] [place] [address] 18512- 1454 Jan, [place] [id number] [place] [address] 85349- 9064 Jan, [facility] [id number] [place] [address] 92543- 8799 Jan, [place] [id number] [place] [address] 85881- 3642 Jan, [facility] [id number] [place] [address] 27211- 4712 Jan, Anxiety F41.9 and Severe episode of recurrent major depressive disorder, without 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 [place] [address] [address]- 3400 Jan, Type 2 diabetes mellitus with diabetic autonomic (poly) neuropathy E11.43 [place] [id number] [place] [address] 19970- 5420 Jan, Severe episode of recurrent major depressive disorder, without 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 and Type 2 diabetes mellitus with diabetic autonomic (poly)neuropathy E11.43 [place] [id number] [place] [address] 49416- 9711 Jan, [place] [id number] [place] [address] 82516- 4867 Jan, [place] [id number] [place] [address] 15573- 9610 Jan, Stage 3 chronic kidney disease N18.3 ; Seizure disorder G40.909 ; Edema of both legs R60.0 and Blister (nonthermal), right foot, initial encounter S90.821A [place] [id number] [place] [address] 24987- 1010 Jan, Severe episode of recurrent major depressive disorder, without 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 and Anxiety, generalized F41.1 [place] [id number] [place] [address] 28550- 4875 Jan, Severe episode of recurrent major depressive disorder, without 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 and Anxiety, generalized F41.1 [place] [address] [address]- 7778 Jan, [place] [id number] [place] [address] 46210- 5001 Jan, Anxiety F41.9 and Primary insomnia F51.01 [place] [address] [place] [address] 29970- 6560 Jan, Type 2 diabetes mellitus with diabetic autonomic (poly) neuropathy E11.43 ; 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 ; Stage 3 chronic kidney disease N18.3 ; Chronic pain syndrome G89.4 ; Swelling of mandible R22.0 and Seizure disorder G40.909 [place] [id number] [place] [address] 59774- 4464 Jan, [place] [id number] [place] [address] 26274- 0195 Jan, [place] [id number] [place] [address] 27161- 7792 Dec, Severe episode of recurrent major depressive disorder, without 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 and Anxiety, generalized F41.1 [place] [id number] [place] [address] 97740- 6279 Dec, Diarrhea, unspecified type R19.7 ; Gastritis determined by endoscopy K29.70 ; Dysuria R30.0 ; Unspecified abdominal pain R10.9 ; Unspecified fall W19.XXXA and Need for assistance with personal care Z74.1 [place] [id number] [place] [address] 22597- 7044 Dec, Severe episode of recurrent major depressive disorder, without 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 and Anxiety, generalized F41.1 [place] [id number] [place] [address] 27993- 6533 Dec, Diarrhea, unspecified type R19.7 ; Dysuria R30.0 ; Unspecified abdominal pain R10.9 ; Gastritis determined by endoscopy K29.70 ; Unspecified fall W19.XXXA and Need for assistance with personal care Z74.1 [place] [id number] [place] [address] 35480- 7396 Dec, [place] [id number] [place] [address] 89685- 5118 Dec, [place] [id number] [place] [address] 29920- 2056 Dec, Type 2 diabetes mellitus with diabetic autonomic (poly) neuropathy E11.43 [address] [place] [address] 67126- 6635 17 Dec, 2016 Severe episode of recurrent major depressive disorder, without 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 and Anxiety, generalized F41.1 [facility] WALK IN [facility] [id number] [place] [address] 75817 -8524 17 Dec, 2016 Abscessed tooth K04.7 [facility] [address] 76343- 4898 Dec, Severe episode of recurrent major depressive disorder, without 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
--- OUTSIDE RECORDS SUMMARY | 2017-12-04 19:32 | XMS REPORT ---
Author Author MIRZA MARTINO Organization [facility] Address [address] [place] [address] Care Team Providers Care Machine Ii Engraver Name Role Phone SALENA MIRZA Unavailable PROBLEMS Type Condition ICD9-CM Code WYM73-XP Code Onset Dates Condition Status SNOMED Code Problem Seasonal allergic rhinitis, unspecified allergic rhinitis trigger J30.2 Active 458121046 Problem Self-inflicted injury Z72.89 Active 851648992 Problem Seizure disorder G40.909 Active 132532498 Problem Postconcussion syndrome F07.81 Active 04582338 Problem Acquired hypothyroidism E03.9 Active 436069308 Problem Closed nondisplaced fracture of second metatarsal bone of left foot, initial encounter S92.325A Active 66105999 Problem Essential hypertension I10 Active 19848285 Problem Port catheter in place Z95.828 Active 684963172 Problem Chronic congestive heart failure, unspecified congestive heart failure type I50.9 Active 57554609 Problem Gastritis determined by endoscopy K29.70 Active 1446897 Problem Multiple neurological symptoms R29.90 Active 754529544 Problem Borderline personality disorder in adult F60.3 Active 12329268 Problem Primary insomnia F51.01 Active 3629759 Problem 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 Active 037727795 Problem Gastroparesis K31.84 Active 138681107 Problem Chronic pain syndrome G89.4 Active 941017484 Problem Anxiety, generalized F41.1 Active 93255153 Problem Type 2 diabetes mellitus with diabetic polyneuropathy E11.42 Active 21787275 Problem Tobacco abuse Z72.0 Active 239412657 Problem Noncompliance with diabetes treatment Z91.19 Active 0522327 Problem Stage 3 chronic kidney disease N18.3 Active 025152665 Problem Severe episode of recurrent major depressive disorder, without 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 Active 75752549 Problem Postural hypotension I95.1 Active 87741575 ALLERGIES No Information ENCOUNTERS Encounter Location Date Diagnosis [facility] [address] [address] October, [facility] [id number] [place] [address] 33198- 7051 October, [facility] [id number] [place] [address] 78244- 3701 October, [facility] [id number] [place] [address] 24770- 1494 October, [facility] [id number] [place] [address] 31758- 1851 Sep, [facility] [id number] [place] [address] 28818 -5987 Sep, Neck pain M54.2 ; Strain of lumbar region, initial encounter S39.012A and Postconcussion syndrome F07.81 [facility] [id number] [place] [address] 17894- 4830 Sep, [facility] [id number] [place] [address] 43998- 7280 Sep, Severe episode of recurrent major depressive disorder, without 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 ; Anxiety, generalized F41.1 and Borderline personality disorder in adult F60.3 [facility] [id number] [place] [address] 72576- 9256 Sep, [facility] [id number] [place] [address] 04687- 3358 Sep, Throat pain R07.0 ; BMI 40.0-44.9, adult Z68.41 and Chronic pain syndrome G89.4 [facility] [id number] [place] [address] 43497- 8591 Sep, [facility] [id number] [place] [address] 42342- 6672 Sep, [facility] [id number] [place] [address] 91644- 8796 Sep, [facility] [address] [address] 3852 Sep, Anxiety, generalized F41.1 [facility] [id number] [place] [address] 17010- 2470 Sep, [facility] [id number] [place] [address] 62370- 3418 Sep, Stage 3 chronic kidney disease N18.3 [facility] [id number] [place] [address] 14951- 2075 Sep, Stage 3 chronic kidney disease N18.3 and Chronic pain syndrome G89.4 [facility] [id number] [place] [address] 15516- 6145 Sep, Severe episode of recurrent major depressive disorder, without 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 ; Anxiety, generalized F41.1 and Borderline personality disorder in adult F60.3 [facility] [id number] [place] [address] 42428- 4670 Sep, Chronic pain syndrome G89.4 ; Anxiety, generalized F41.1 and BMI 45.0-49.9, adult Z68.42 [facility] [id number] [place] [address] 41040- 4710 Sep, [facility] [id number] [place] [address] 41461- 7220 Sep, [facility] [id number] [place] [address] 53803- 8307 Sep, Severe episode of recurrent major depressive disorder, without 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 ; Anxiety, generalized F41.1 and Borderline personality disorder in adult F60.3 [facility] [id number] [place] [address] 17366- 4410 Sep, [facility] [id number] [place] [address] 63787 -5447 Aug, Dysuria R30.0 ; Type 2 diabetes mellitus with diabetic polyneuropathy E11.42 ; Oral abscess K12.2 and BMI 40.0-44.9, adult Z68.41 [facility] [id number] [place] [address] 59099- 6416 30 Aug, 2017 [facility] [id number] [place] [address] 15159- 9484 Aug, [facility] [id number] [place] [address] 51953- 0680 Aug, [facility] [id number] [place] [address] 57678- 9194 Aug, [facility] [id number] [place] [address] 88058- 9054 Aug, Severe episode of recurrent major depressive disorder, without 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 ; Anxiety, generalized F41.1 and Borderline personality disorder in adult F60.3 [facility] [id number] [place] [address] 62242- 1114 22 Aug, 2017 [facility] [id number] [place] [address] 93355- 2798 20 Aug, 2017 [facility] [id number] [place] [address] 25548- 6154 19 Aug, 2017 Severe episode of recurrent major depressive disorder, without 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 ; Anxiety, generalized F41.1 and Borderline personality disorder in adult F60.3 [facility] [address] [address] 17 Aug, 2017 [facility] [address] [address] 1217 15 Aug, 2017 [facility] [id number] [place] [address] 21781- 0288 14 Aug, 2017 [facility] [address] [address] 14 Aug, 2017 Dysuria R30.0 ; Dental infection K04.7 ; Acute cystitis with hematuria N30.01 and BMI 45.0-49.9, adult Z68.42 [facility] [id number] [place] [address] 26225- 0048 14 Aug, 2017 Severe episode of recurrent major depressive disorder, without 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 ; Anxiety, generalized F41.1 and Borderline personality disorder in adult F60.3 [facility] [id number] [place] [address] 90298- 8329 Aug, [facility] [id number] [place] [address] 13639- 4240 Aug, Closed nondisplaced fracture of second metatarsal bone of left foot, initial encounter S92.325A and Chronic pain syndrome G89.4 [facility] [id number] [place] [address] 66659- 3270 Aug, Type 2 diabetes mellitus with diabetic polyneuropathy E11.42 [facility] [id number] [place] [address] 55468- 4155 08 Aug, 2017 Severe episode of recurrent major depressive disorder, without 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 ; Anxiety, generalized F41.1 and Borderline personality disorder in adult F60.3 [facility] [id number] [place] [address] 89289- 9730 Aug, [facility] [id number] [place] [address] 96484- 1682 Aug, [facility] [id number] [place] [address] 11284- 0743 Aug, [facility] [id number] [place] [address] 34495- 0992 Aug, [facility] [id number] [place] [address] 62760- 9797 Aug, [facility] [id number] [place] [address] 32431- 2184 Jul, [facility] [id number] [place] [address] 99663- 6066 Jul, [facility] [id number] [place] [address] 70962- 2180 Jul, Severe episode of recurrent major depressive disorder, without 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 ; Anxiety, generalized F41.1 and Borderline personality disorder in adult F60.3 [facility] [id number] [place] [address] 51436- 3610 Jul, Type 2 diabetes mellitus with diabetic polyneuropathy E11.42 [facility] [id number] [place] [address] 63922- 9825 Jul, Closed nondisplaced fracture of second metatarsal bone of left foot, initial encounter S92.325A and Closed nondisplaced fracture of third metatarsal bone of left foot, initial encounter S92.335A [facility] [id number] [place] [address] 62560- 8047 Jul, [facility] [id number] [place] [address] 23352- 0003 Jul, Closed nondisplaced fracture of second metatarsal bone of left foot, initial encounter S92.325A ; Acute left ankle pain M25.572 ; Acute midline low back pain without sciatica M54.5 and Seasonal allergic rhinitis, unspecified allergic rhinitis trigger J30.2 [facility] [id number] [place] [address] 94628- 5881 Jul, [facility] [id number] [place] [address] 71931- 5233 Jul, [facility] [id number] [place] [address] 12087- 7793 Jul, [facility] [id number] [place] [address] 16293- 7907 Jul, Frequent falls R29.6 [facility] [id number] [place] [address] 80107- 8080 14 Jul, 2017 Frequent falls R29.6 [facility] [id number] [place] [address] 95533- 1091 07 Jul, 2017 Severe episode of recurrent major depressive disorder, without 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 ; Anxiety, generalized F41.1 and Borderline personality disorder in adult F60.3 [facility] [id number] [place] [address] 39033- 3112 Jul, Chronic pain syndrome G89.4 [facility] [address] 07567- 4422 Jul, [facility] 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 [place] [facility] [address] 44093- 6836 Jul, [facility] [address] 79721- 9536 Jul, Type 2 diabetes mellitus with diabetic polyneuropathy E11.42 [facility] [address] 55018- 4119 Jun, 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 and Thrush B37.0 [facility] [facility] [address] 99684- 1001 Jun, Severe episode of recurrent major depressive disorder, without 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 ; Anxiety, generalized F41.1 and Borderline personality disorder in adult F60.3 [facility] [id number] [place] [address] 44084- 1971 Jun, Severe episode of recurrent major depressive disorder, without 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 ; Anxiety, generalized F41.1 and Borderline personality disorder in adult F60.3 [facility] [facility] [address] 23910- 4931 Jun, Frequent falls R29.6 ; Bronchitis J40 ; BMI 40.0-44.9, adult Z68.41 and Coccygeal pain, acute M53.3 [place] [facility] [address] 41316- 4233 Jun, [facility] [address] [address] Jun, [facility] [id number] [place] [address] 78214- 1128 Jun, [facility] [id number] [place] [address] 11982- 6513 Jun, Dental caries, unspecified K02.9 [facility] [id number] [place] [address] 78192- 7712 17 Jun, 2017 Acute non-recurrent maxillary sinusitis J01.00 and BMI 40.0- 44.9, adult Z68.41 [facility] [id number] [place] [address] 41790- 4063 17 Jun, 2017 [facility] [id number] [place] [address] 07944- 9993 Jun, Severe episode of recurrent major depressive disorder, without 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 ; Anxiety, generalized F41.1 and Borderline personality disorder in adult F60.3 [facility] [id number] [place] [address] 13293- 5081 11 Jun, 2017 Closed nondisplaced fracture of third metatarsal bone of left foot with routine healing, subsequent encounter S92.335D ; Closed nondisplaced fracture of second metatarsal bone of left foot with routine healing, subsequent encounter S92.325D and Closed nondisplaced fracture of fourth metatarsal bone of left foot with routine healing, subsequent encounter S92.345D [facility] [id number] [address]- 8794 Jun, Severe episode of recurrent major depressive disorder, without 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 ; Anxiety, generalized F41.1 and Borderline personality disorder in adult F60.3 [facility] [address] [address]- 6884 Jun, [facility] [id number] [place] [address] 07948- 9886 Jun, [facility] [address] [address]- 2468 Jun, [facility] [id number] [place] [address] 47395- 9186 Jun, [facility] [id number] [place] [address] 69714- 3584 Jun, [facility] [id number] [place] [address] 16327- 9924 Jun, Anxiety F41.9 [facility] [id number] [place] [address] 91393- 5672 Jun, [facility] [id number] [place] [address] 29113- 9078 Jun, [facility] [id number] [place] [address] 05440- 2661 Jun, Type 2 diabetes mellitus with diabetic autonomic (poly) neuropathy E11.43 [facility] [id number] [place] [address] 77344- 7110 Jun, Severe episode of recurrent major depressive disorder, without 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 ; Anxiety, generalized F41.1 and Borderline personality disorder in adult F60.3 [facility] [address] [address]- 5090 Jun, Type 2 diabetes mellitus with diabetic autonomic (poly) neuropathy E11.43 and Chronic pain syndrome G89.4 [facility] [address] [address]- 7324 May, Recent urinary tract infection Z87.440 ; Deliberate self- cutting Z72.89 ; Chest discomfort R07.89 ; BMI 40.0-44.9, adult Z68.41 and Worried well Z71.1 [facility] [address] [address]- 4503 May, Severe episode of recurrent major depressive disorder, without 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 ; Anxiety, generalized F41.1 and Borderline personality disorder in adult F60.3 [facility] [address] [address]- 3174 18 May, 2017 [facility] [id number] [place] [address] 16424- 9516 May, [facility] [id number] [place] [address] 94917- 7098 May, Severe episode of recurrent major depressive disorder, without 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 ; Anxiety, generalized F41.1 and Borderline personality disorder in adult F60.3 [facility] [id number] [place] [address] 89491- 7447 12 May, 2017 Type 2 diabetes mellitus with diabetic autonomic (poly) neuropathy E11.43 [facility] [id number] [place] [address] 36468- 8831 07 May, 2017 [facility] [id number] [place] [address] 17479- 3591 May, Type 2 diabetes mellitus with diabetic autonomic (poly) neuropathy E11.43 ; Multiple neurological symptoms R29.90 ; Dysuria R30.0 ; Tobacco abuse Z72.0 ; Right hip pain M25.551 ; Anxiety F41.9 ; Gastritis determined by endoscopy K29.70 ; Chronic pain syndrome G89.4 ; Acute non- recurrent maxillary sinusitis J01.00 ; Self mutilating behavior Z72.89 and BMI 40.0-44.9, adult Z68.41 [facility] [address] [place] [address] 25533- 6334 05 May, 2017 Severe episode of recurrent major depressive disorder, without 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 ; Anxiety, generalized F41.1 and Borderline personality disorder in adult F60.3 [facility] [address] [place] [address] 62300- 2828 Apr, [facility] [id number] [place] [address] 13919- 1396 Apr, [facility] [id number] [address] Apr, [facility] [id number] [place] [address] 63663 -2191 Apr, Aspiration pneumonia of right lower lobe, unspecified aspiration pneumonia type J69.0 [facility] [address] [place] [address] 09186- 6281 Apr, Severe episode of recurrent major depressive disorder, without 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 ; Anxiety, generalized F41.1 and Borderline personality disorder in adult F60.3 [facility] [id number] [place] [address] 76947- 1586 Apr, [facility] [id number] [place] [address] 69663- 9453 Apr, Chronic pain syndrome G89.4 [facility] [id number] [place] [address] 41700- 7651 Apr, Severe episode of recurrent major depressive disorder, without 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 ; Anxiety, generalized F41.1 and Borderline personality disorder in adult F60.3 [facility] [address] [place] [address] 43721- 0030 Apr, Severe episode of recurrent major depressive disorder, without 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 ; Anxiety, generalized F41.1 and Borderline personality disorder in adult F60.3 [facility] [address] [place] [address] 65889- 1823 Apr, Closed nondisplaced fracture of third metatarsal bone of left foot with routine healing, subsequent encounter S92.335D ; Closed nondisplaced fracture of fourth metatarsal bone of left foot with routine healing, subsequent encounter S92.345D and Closed nondisplaced fracture of second metatarsal bone of left foot with routine healing, subsequent encounter S92.325D [facility] [address] [place] [address] 44648- 9372 Apr, [facility] [id number] [place] [address] 12050- 3575 Apr, [facility] [id number] [place] [address] 00817- 3372 14 Apr, 2017 [facility] [id number] [place] [address] 66564- 6964 Apr, Screening breast examination Z12.31 [facility] [id number] [place] [address] 31784- 3046 Apr, [facility] [id number] [place] [address] 21090- 9771 Apr, Type 2 diabetes mellitus with diabetic autonomic (poly) neuropathy E11.43 [address] [id number] [place] [address] 00955- 9686 Apr, Severe episode of recurrent major depressive disorder, without 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 ; Anxiety, generalized F41.1 and Borderline personality disorder in adult F60.[address] 33303- 6792 Apr, Type 2 diabetes mellitus with diabetic autonomic (poly) neuropathy E11.43 ; Chronic pain syndrome G89.4 and Anxiety F41.9 [facility] [place] [id number] [place] [address] 79978 -1377 Apr, BMI 45.0-49.9, adult Z68.42 [facility] [id number] [place] [address] 45187 -3876 Apr, Avulsion of toenail, initial encounter S91.209A and Acute non-recurrent maxillary sinusitis J01.00 [facility] [id number] [place] [address] 25974- 7678 Apr, [id number] [place] [address] 04437- 3111 Mar, [facility] [id number] [place] [address] 95552- 8153 Mar, Severe episode of recurrent major depressive disorder, without 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 ; Anxiety, generalized F41.1 and Borderline personality disorder in adult F60.3 [facility] [address] [address]- 5674 Mar, [facility] [id number] [place] [address] 34537- 6371 Mar, [facility] [id number] [place] [address] 55269- 9821 Mar, [facility] [id number] [place] [address] 35124- 2590 Mar, Seizure disorder G40.909 [facility] [id number] [place] [address] 87681- 4101 Mar, [facility] [id number] [place] [address] 30236- 8719 Mar, [facility] [address] [place] [address] 19372 -8859 Mar, Left foot pain M79.672 ; Stage 3 chronic kidney disease N18.3 and Closed nondisplaced fracture of second metatarsal bone of left foot, initial encounter S92.325A [place] [id number] [place] [address] 75941- 5934 Mar, Severe episode of recurrent major depressive disorder, without 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 and Anxiety, generalized F41.1 [facility] [id number] [place] [address] 16548- 5714 Mar, [facility] [id number] [place] [address] 27906- 4302 Mar, Closed nondisplaced fracture of second metatarsal bone of left foot, initial encounter S92.325A and Closed nondisplaced fracture of third metatarsal bone of left foot, initial encounter S92.335A [facility] [address] [address]- 5329 Mar, Seizure disorder G40.909 [facility] [id number] [address]- 6954 Mar, [facility] [id number] [place] [address] 29188- 6373 Mar, [facility] [id number] [place] [address] 61143- 1882 Mar, [facility] [id number] [place] [address] 63150- 7214 Mar, [facility] [id number] [place] [address] 88389- 4856 Mar, High risk sexual behavior Z72.51 [place] [facility] [id number] [place] [address] 45575- 8737 Mar, Severe episode of recurrent major depressive disorder, without 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 and Anxiety, generalized F41.1 [place] [id number] [place] [address] 07878- 2304 Mar, Anxiety F41.9 and Type 2 diabetes mellitus with diabetic autonomic (poly)neuropathy E11.43 [place] [facility] [id number] [place] [address] 94573- 0685 Mar, Anxiety F41.9 [facility] [facility] [id number] [place] [address] 75380- 9130 Mar, High risk sexual behavior Z72.51 [place] [id number] [place] [address] 92964- 6210 Mar, Chronic pain syndrome G89.4 [place] [id number] [place] [address] 92591- 2712 Mar, Type 2 diabetes mellitus with diabetic autonomic (poly) neuropathy E11.43 [facility] [address] [place] [address] 27574- 2533 Mar, [facility] [id number] [place] [address] 84646- 1615 Mar, Closed nondisplaced fracture of second metatarsal bone of left foot, initial encounter S92.325A ; Chronic pain syndrome G89.4 ; Closed nondisplaced fracture of third metatarsal bone of left foot, initial encounter S92.335A ; Acute left ankle pain M25.572 and Type 2 diabetes mellitus with diabetic autonomic (poly)neuropathy E11.43 [facility] [id number] [place] [address] 32839- 4826 Mar, [facility] [address] 86161- 2547 Mar, [facility] [address] 74780- 8989 Mar, Severe episode of recurrent major depressive disorder, without 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 and Anxiety, generalized F41.1 [facility] [id number] [place] [address] 96843- 6260 Feb, [facility] [address] 31897- 5308 Feb, Renal insufficiency N28.9 [facility] [id number] [place] [address] 01868- 8560 Feb, [facility] [id number] [place] [address] 16312- 8455 Feb, Severe episode of recurrent major depressive disorder, without 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 and Anxiety, generalized F41.1 [facility] [id number] [place] [address] 76231- 9134 Feb, [facility] [id number] [place] [address] 23156- 2561 Feb, [facility] [id number] [place] [address] 12699- 4037 Feb, Renal insufficiency N28.9 [facility] [id number] [place] [address] 39235- 2595 Feb, [facility] [address] 96328 -1942 18 Feb, 2017 [facility] [address] [address] 7802 14 Feb, 2017 [facility] [id number] [place] [address] 22959- 5497 13 Feb, 2017 Severe episode of recurrent major depressive disorder, without 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 and Anxiety, generalized F41.1 [facility] [id number] [place] [address] 17411- 6136 13 Feb, 2017 Closed nondisplaced fracture of second metatarsal bone of left foot, initial encounter S92.325A ; Chronic pain syndrome G89.4 ; Closed nondisplaced fracture of third metatarsal bone of left foot, initial encounter S92.335A ; Left hip pain M25.552 and Stage 3 chronic kidney disease N18.3 [facility] [id number] [place] [address] 05929- 2871 07 Feb, 2017 [facility] [id number] [place] [address] 33106- 4117 Feb, [facility] [id number] [place] [address] 69136- 8885 Feb, Closed nondisplaced fracture of second metatarsal bone of left foot, initial encounter S92.325A and Closed nondisplaced fracture of third metatarsal bone of left foot, initial encounter S92.335A [facility] [address] [address] 0530 Feb, [facility] [id number] [address] 2547 Feb, Anxiety F41.9 [facility] [id number] [place] [address] 55839- 0987 Feb, [facility] [id number] [place] [address] 94848- 6986 Feb, Chronic pain syndrome G89.4 [facility] [id number] [place] [address] 91935- 1202 Feb, Left foot pain M79.672 ; Closed nondisplaced fracture of second metatarsal bone of left foot, initial encounter S92.325A ; Closed nondisplaced fracture of third metatarsal bone of left foot, initial encounter S92.335A and Oral infection K12.2 [facility] [id number] [place] [address] 04337- 1758 Feb, [facility] [id number] [place] [address] 78087- 5151 Jan, [facility] [id number] [place] [address] 11956- 8386 Jan, Type 2 diabetes mellitus with diabetic autonomic (poly) neuropathy E11.43 and Congestive heart failure, unspecified congestive heart failure chronicity, unspecified congestive heart failure type I50.9 [place] [id number] [place] [address] 10003- 4222 Jan, Congestive heart failure, unspecified congestive heart failure chronicity, unspecified congestive heart failure type I50.9 and Stage 3 chronic kidney disease N18.3 [facility] [id number] [place] [address] 18385- 9084 Jan, Stage 3 chronic kidney disease N18.3 ; Edema of both legs R60.0 ; Chronic congestive heart failure, unspecified congestive heart failure type I50.9 ; Acute low back pain without sciatica, unspecified back pain laterality M54.5 ; Chronic nausea R11.0 and Primary insomnia F51.01 [facility] [id number] [place] [address] 51796- 1238 Jan, Severe episode of recurrent major depressive disorder, without 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 and Anxiety, generalized F41.1 [place] [id number] [place] [address] 11964- 8059 Jan, [facility] [id number] [place] [address] 14522- 5839 Jan, [facility] [id number] [place] [address] 32211- 4030 Jan, [facility] [id number] [place] [address] 93689- 5367 Jan, [facility] [id number] [place] [address] 74036- 6510 Jan, Anxiety F41.9 and Severe episode of recurrent major depressive disorder, without 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 [facility] [id number] [place] [address] 97871- 6940 Jan, Type 2 diabetes mellitus with diabetic autonomic (poly) neuropathy E11.43 [facility] [id number] [place] [address] 15820- 8536 Jan, Severe episode of recurrent major depressive disorder, without 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 and Type 2 diabetes mellitus with diabetic autonomic (poly)neuropathy E11.43 [facility] [id number] [place] [address] 58562- 7085 Jan, [facility] [id number] [place] [address] 45208- 1721 Jan, [facility] [id number] [place] [address] 99885- 5074 Jan, Stage 3 chronic kidney disease N18.3 ; Seizure disorder G40.909 ; Edema of both legs R60.0 and Blister (nonthermal), right foot, initial encounter S90.821A [facility] [id number] [place] [address] 02050- 3995 Jan, Severe episode of recurrent major depressive disorder, without 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 and Anxiety, generalized F41.1 [facility] [id number] [place] [address] 74324- 3559 Jan, Severe episode of recurrent major depressive disorder, without 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 and Anxiety, generalized F41.1 [facility] [id number] [place] [address] 96955- 9155 Jan, [facility] [id number] [place] [address] 76661- 4285 Jan, Anxiety F41.9 and Primary insomnia F51.01 [place] [id number] [place] [address] 41058- 9674 Jan, Type 2 diabetes mellitus with diabetic autonomic (poly) neuropathy E11.43 ; [facility] 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 ; Stage 3 chronic kidney disease N18.3 ; Chronic pain syndrome G89.4 ; Swelling of mandible R22.0 and Seizure disorder G40.909 [id number] [place] [address] 04092- 3446 Jan, [place] [id number] [place] [address] 83382- 4509 Jan, [place] [id number] [place] [address] 10043- 4216 Dec, Severe episode of recurrent major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
--- OUTSIDE RECORDS SUMMARY | 2017-12-04 19:32 | XMS REPORT ---
Author Author MIRZA MARTINO [facility] Address [address] [place] [address] Care Team Providers Care Area Sales Manager Name Role Phone MIRZA MARTINO Unavailable PROBLEMS Type Condition ICD9-CM Code [id number] Code Onset Dates Condition Status SNOMED Code Problem manager 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 Active 549029497 Problem Recurrent major depressive disorder, remission status unspecified F33.9 Active 74343309 Problem Severe episode of recurrent major depressive disorder, without 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 Active 06977310 Problem Tobacco abuse Z72.0 Active 993189128 Problem Anxiety, generalized F41.1 Active 71012257 Problem Weakness R53.1 Active 99079977 Problem Stage 3 chronic kidney disease N18.3 Active 762440364 Problem Vaginal bleeding N93.9 Active 754938864 Problem Chronic nausea R11.0 Active 719928781 Problem Right lower quadrant abdominal pain R10.31 Active 855481170 Problem Self-inflicted injury Z72.89 Active 858134810 Problem Noncompliance with diabetes treatment Z91.19 Active 5251278 Problem Unspecified fall W19.XXXA Active 9960309 Problem Type 2 diabetes mellitus with diabetic polyneuropathy E11.42 Active 43693459 Problem Gastritis determined by endoscopy K29.70 Active 0240673 Problem Unspecified abdominal pain R10.9 Active 900303772 Problem Diarrhea, unspecified type R19.7 Active 58077091 Problem Left hip pain M25.552 Active 19697588 Problem Closed nondisplaced fracture of second metatarsal bone of left foot, initial encounter S92.325A Active 22150944 Problem Neck pain M54.2 Active 87958317 Problem Thrush B37.0 Active 41009993 Problem Anxiety F41.9 Active 71551030 Problem Swelling of both lower extremities M79.89 Active 01484697658332683 Problem Essential hypertension I10 Active 48030140 Problem Edema of both legs R60.0 Active 779178671 Problem Acquired hypothyroidism E03.9 Active 603166149 Problem Blister (nonthermal), right foot, initial encounter S90.821A Active 963417675 Problem Congestive heart failure, unspecified congestive heart failure chronicity, unspecified congestive heart failure type I50.9 Active 84498418 Problem Closed nondisplaced fracture of third metatarsal bone of left foot, initial encounter S92.335A Active 517895270 Problem Port catheter in place Z95.828 Active 751240650 Problem Chronic congestive heart failure, unspecified congestive heart failure type I50.9 Active 85736152 Problem Primary insomnia F51.01 Active 7727226 Problem Postural hypotension I95.1 Active 85736799 Problem Screening breast examination Z12.39 Active 990078136 Problem Acute non-recurrent maxillary sinusitis J01.00 Active 98566086 Problem Type 2 diabetes mellitus with diabetic autonomic (poly)neuropathy E11.43 Active 579500905 Problem Syncope, unspecified syncope type R55 Active 863943613 Problem Chronic pain syndrome G89.4 Active 894781673 Problem Acute pain of right shoulder M25.511 Active 37210136 Problem Epigastric pain R10.13 Active 44320777 Problem Seizure disorder G40.909 Active 795567764 Problem Gastroparesis K31.84 Active 830416163 Problem Chronic superficial gastritis without bleeding K29.30 Active 182862601 Problem Seasonal allergic rhinitis, unspecified allergic rhinitis trigger J30.2 Active 286606270 Problem Swelling of mandible R22.0 Active 957581348 ALLERGIES Substance Reaction Event Type Date Status Compazine Unknown Drug Allergy Aug, Active Zofran Unknown Drug Allergy Aug, Active Tizanidine HCl seizure Drug Allergy Aug, Active Sulfamethoxazole-Trimethoprim Unknown Drug Allergy Aug, Active Metoclopramide HCl Unknown Drug Allergy Aug, Active Iodine Unknown Drug Allergy Aug, Active Hydrocodone-Acetaminophen Unknown Drug Allergy Aug, Active Codeine Sulfate Unknown Drug Allergy Aug, Active Acetaminophen Unknown Drug Allergy Aug, Active IV Dye Unknown Non Drug Allergy Aug, Active SOCIAL HISTORY Never Assessed PLAN OF CARE Activity Details Follow Up [address] Reason: VITAL SIGNS Height 62 in 2016-08-30 Weight 264.2 lbs 2016-08-30 Temperature 98.1 degrees Fahrenheit 2016-08-30 Heart Rate 82 bpm 2016-08-30 Respiratory Rate 20 2016-08-30 BMI 48.32 kg/m2 2016-08-30 Blood pressure systolic 112 mmHg 2016-08-30 Blood pressure diastolic 76 mmHg 2016-08-30 MEDICATIONS Medication Instructions Dosage Frequency Start Date End Date Duration Status Nystatin 382104 UNIT/ML Mouth/Throat Four times a day 4 ml 6h 12 Mar, 2016 Active Naproxen 500 mg Orally every 12 hrs 1 tablet as needed 12h Jun, 2 Oct, 2016 28 days Active Alprazolam 1 MG Orally Three times a day must last 28 days 1 tablet Active Zantac 150 MG Orally twice a day 1 tablet 12h 30 day(s) Active Atenolol 50 mg Orally Once a day 1 tablet 24h Active Levothyroxine Sodium 75 MCG Orally Once a day 1 tablet 24h Active Humulin R U-500 (Concentrated) 500 UNIT/ML Subcutaneous 3 times a day with meals 70 units Active Gabapentin 800 MG Orally 4 times a day 1 tablet 6h Active Promethazine HCl 25 MG Orally 2 times a day 1 tablet as needed 12h 28 days Active Losartan Potassium-HCTZ 100-25 MG Orally Once a day 1 tablet 24h Active Seroquel XR 50MG TAKE TWO TABLETS BY MOUTH ONCE DAILY AT BEDTIME 28 Active Insulin Syringe 31G X 5/16 Active Tizanidine HCl 4 MG Orally Three times a day 1 tablet as needed 8h Active Benadryl Allergy 25 MG Orally Once a day at bedtime 2 tablet as needed Active Oxygen 3L nasal canal Active Temazepam 30 MG Orally Once a day 1 capsule at bedtime as needed 24h Active Tylenol Extra Strength 500 MG Orally 3 times a day 2 tablets as needed 8h Active Nystatin 062558 UNIT/GM Externally Twice a day apply to abdominal fold twice a day 12h Active Escitalopram Oxalate 20 mg Orally Once a day 1 tablet 24h 30 Active Luis Fernando Contour Test - In Vitro 3 times a day as directed 8h Jan, Active Furosemide 20 mg Orally Once a day 2 tablets 24h 14 days Active Chantix 0.5 MG Orally Twice a day 1 tablet 12h Apr, 10 Sep, 2016 30 day(s) Active RESULTS No Results PROCEDURES Procedure Date Ordered Result Body Site NATRIURETIC PEPTIDE August 30, 2016 COMPREHEN METABOLIC PANEL August 30, 2016 VENIPUNCT, ROUTINE* August 30, 2016 IMMUNIZATIONS No Known Immunizations MEDICAL (GENERAL) HISTORY [...] vein (port for IV access) Dr. Hernandez [facility] 08-29-2013 Surgical History partial hysterectomy Surgical History EGD Hospitalization History transfusion given after delivery Hospitalization History Chest pain, uncontrolled Hyperglycemia--[facility]ia [facility] 12/15/15 Hospitalization History Influenza B Hospitalization History pneumonia Hospitalization History [facility] 07/16/16 Hospitalization History for high sugar 07/12
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
--- OUTSIDE RECORDS SUMMARY | 2017-12-04 19:36 | XMS REPORT ---
Author Author ABHINAV FLOYD Organization [facility] Address [address] [place] [address] Care Team Providers Care Tub Wash Operator Name Role Phone ABHINAV FLOYD Unavailable PROBLEMS Type Condition ICD9-CM Code FSR79-UQ Code Onset Dates Condition Status SNOMED Code Problem Postural hypotension I95.1 Active 78204000 Problem Seizure disorder G40.909 Active 265344329 Problem Seasonal allergic rhinitis, unspecified allergic rhinitis trigger J30.2 Active 477564784 Problem Closed nondisplaced fracture of second metatarsal bone of left foot, initial encounter S92.325A Active 57003594 Problem Essential hypertension I10 Active 58390861 Problem Multiple neurological symptoms R29.90 Active 135907617 Problem Port catheter in place Z95.828 Active 616228522 Problem Stage 3 chronic kidney disease N18.3 Active 034178158 Problem Gastritis determined by endoscopy K29.70 Active 3287291 Problem Self-inflicted injury Z72.89 Active 633141967 Problem Borderline personality disorder in adult F60.3 Active 22571854 Problem Chronic congestive heart failure, unspecified congestive heart failure type I50.9 Active 84620702 Problem Chronic pain syndrome G89.4 Active 186326942 Problem Primary insomnia F51.01 Active 4371072 Problem Acquired hypothyroidism E03.9 Active 029960625 Problem Gastroparesis K31.84 Active 562065260 Problem Severe episode of recurrent major depressive disorder, without 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 Active 38467117 Problem Anxiety, generalized F41.1 Active 23468336 Problem retirement 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 Active 866310897 Problem Type 2 diabetes mellitus with diabetic polyneuropathy E11.42 Active 97650248 Problem Tobacco abuse Z72.0 Active 993790043 Problem Noncompliance with diabetes treatment Z91.19 Active 5279715 ALLERGIES No Information ENCOUNTERS Encounter Location Date Diagnosis [facility] [address] [facility] [id number] [address] October, [facility] [address] [address] October, [facility] [id number] [place] [address] 02622- 7191 October, [facility] [id number] [place] [address] 49535- 6424 October, [facility] [id number] [place] [address] 86565- 5249 Sep, Severe episode of recurrent major depressive disorder, without 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 ; Anxiety, generalized F41.1 and Borderline personality disorder in adult F60.3 [facility] [id number] [place] [address] 28787- 3392 Sep, [facility] [id number] [place] [address] 92181- 9677 Sep, Throat pain R07.0 ; BMI 40.0-44.9, adult Z68.41 and Chronic pain syndrome G89.4 [facility] [id number] [place] [address] 93728- 2032 Sep, [facility] [id number] [place] [address] 02800- 6202 Sep, [facility] [address] [address] 1113 Sep, [facility] [id number] [place] [address] 43588- 9077 Sep, Anxiety, generalized F41.1 [facility] [address] [address] 3947 Sep, [facility] [id number] [place] [address] 36246- 2294 Sep, Stage 3 chronic kidney disease N18.3 [facility] [address] [address] 7479 Sep, Stage 3 chronic kidney disease N18.3 and Chronic pain syndrome G89.4 [facility] [id number] [place] [address] 99003- 7364 Sep, Severe episode of recurrent major depressive disorder, without 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 ; Anxiety, generalized F41.1 and Borderline personality disorder in adult F60.3 [facility] [id number] [place] [address] 25271- 8458 Sep, Chronic pain syndrome G89.4 ; Anxiety, generalized F41.1 and BMI 45.0-49.9, adult Z68.42 [facility] [id number] [place] [address] 41960- 3812 Sep, [facility] [id number] [place] [address] 35306- 1933 Sep, [facility] [id number] [place] [address] 46864- 5798 Sep, Severe episode of recurrent major depressive disorder, without 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 ; Anxiety, generalized F41.1 and Borderline personality disorder in adult F60.3 [facility] [id number] [place] [address] 73807- 0018 Sep, [facility] [id number] [place] [address] 09367 -4563 Aug, Dysuria R30.0 ; Type 2 diabetes mellitus with diabetic polyneuropathy E11.42 ; Oral abscess K12.2 and BMI 40.0-44.9, adult Z68.41 [facility] [id number] [place] [address] 48240- 1106 Aug, [facility] [id number] [place] [address] 79433- 5802 Aug, [facility] [id number] [place] [address] 36086- 5998 Aug, [facility] [id number] [place] [address] 24381- 2269 Aug, [facility] [address], [place] [address] 0278 27 Aug, 2017 Severe episode of recurrent major depressive disorder, without 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 ; Anxiety, generalized F41.1 and Borderline personality disorder in adult F60.3 [facility] [address] [address] 6812 22 Aug, 2017 [facility] [id number] [place] [address] 15933- 0832 20 Aug, 2017 [facility] [id number] [place] [address] 76462- 4992 19 Aug, 2017 Severe episode of recurrent major depressive disorder, without 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 ; Anxiety, generalized F41.1 and Borderline personality disorder in adult F60.3 [facility] [address] [address] 17 Aug, 2017 [facility] [id number] [place] [address] 86585- 2862 15 Aug, 2017 [facility] [id number] [place] [address] 42281- 1032 14 Aug, 2017 [facility] [id number] [address] 14 Aug, 2017 Dysuria R30.0 ; Dental infection K04.7 ; Acute cystitis with hematuria N30.01 and BMI 45.0-49.9, adult Z68.42 [facility] [address], [place] [address] 4902 14 Aug, 2017 Severe episode of recurrent major depressive disorder, without 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 ; Anxiety, generalized F41.1 and Borderline personality disorder in adult F60.3 [facility] [address] [place] [address] 40828- 1503 09 Aug, 2017 [facility] [id number] [address] 7300 08 Aug, 2017 Closed nondisplaced fracture of second metatarsal bone of left foot, initial encounter S92.325A and Chronic pain syndrome G89.4 [facility] [id number] [place] [address] 93129- 3207 08 Aug, 2017 Type 2 diabetes mellitus with diabetic polyneuropathy E11.42 [facility] [id number] [place] [address] 35741- 3672 Aug, Severe episode of recurrent major depressive disorder, without 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 ; Anxiety, generalized F41.1 and Borderline personality disorder in adult F60.3 [facility] [id number] [place] [address] 05012- 1738 Aug, [facility] [id number] [place] [address] 08741- 3386 Aug, [facility] [id number] [place] [address] 63566- 1957 Aug, [facility] [id number] [place] [address] 09054- 9664 Aug, [facility] [id number] [place] [address] 87227- 0322 Aug, [facility] [id number] [place] [address] 89175- 5967 Jul, [facility] [id number] [place] [address] 98117- 9415 Jul, [facility] [id number] [place] [address] 02715- 1753 Jul, Severe episode of recurrent major depressive disorder, without 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 ; Anxiety, generalized F41.1 and Borderline personality disorder in adult F60.3 [facility] [id number] [place] [address] 76625- 3787 Jul, Type 2 diabetes mellitus with diabetic polyneuropathy E11.42 [facility] [id number] [place] [address] 98081- 7627 Jul, Closed nondisplaced fracture of second metatarsal bone of left foot, initial encounter S92.325A and Closed nondisplaced fracture of third metatarsal bone of left foot, initial encounter S92.335A [facility] [id number] [place] [address] 29475- 0663 Jul, [facility] [id number] [place] [address] 25417- 4831 20 Jul, 2017 Closed nondisplaced fracture of second metatarsal bone of left foot, initial encounter S92.325A ; Acute left ankle pain M25.572 ; Acute midline low back pain without sciatica M54.5 and Seasonal allergic rhinitis, unspecified allergic rhinitis trigger J30.2 [facility] [id number] [place] [address] 88107- 3914 Jul, [facility] [id number] [place] [address] 91350- 6799 Jul, [facility] [id number] [place] [address] 79521- 6359 15 Jul, 2017 [facility] [id number] [place] [address] 99662- 1139 15 Jul, 2017 Frequent falls R29.6 [facility] [id number] [place] [address] 61214- 1637 14 Jul, 2017 Frequent falls R29.6 [facility] [id number] [place] [address] 00558- 2904 07 Jul, 2017 Severe episode of recurrent major depressive disorder, without 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 ; Anxiety, generalized F41.1 and Borderline personality disorder in adult F60.3 [facility] [id number] [place] [address] 82638- 0344 07 Jul, 2017 Chronic pain syndrome G89.4 [facility] [id number] [place] [address] 15221- 9942 07 Jul, 2017 retirement 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 [facility] [id number] [place] [address] 36362- 4656 Jul, [facility] [address] 65308- 3324 Jul, Type 2 diabetes mellitus with diabetic polyneuropathy E11.42 [facility] [address] 99403- 6368 Jun, 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 and Thrush B37.0 [facility] [address] 62026- 1815 Jun, Severe episode of recurrent major depressive disorder, without 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 ; Anxiety, generalized F41.1 and Borderline personality disorder in adult F60.3 [facility] [address] 99864- 8019 Jun, Severe episode of recurrent major depressive disorder, without 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 ; Anxiety, generalized F41.1 and Borderline personality disorder in adult F60.3 [facility] [address] 66364- 8629 Jun, Frequent falls R29.6 ; Bronchitis J40 ; BMI 40.0-44.9, adult Z68.41 and Coccygeal pain, acute M53.3 [facility] [id number] [place] [address] 83438- 1293 Jun, [facility] [id number] [place] [address] 77781 -6764 Jun, [facility] [address] 07664- 7535 Jun, [facility] [address] 14281- 2517 Jun, Dental caries, unspecified K02.9 [facility] [id number] [place] [address] 28072- 3298 Jun, Acute non-recurrent maxillary sinusitis J01.00 and BMI 40.0- 44.9, adult Z68.41 [facility] [address] [place] [address] 03297- 4944 Jun, [facility] [id number] [place] [address] 40442- 3716 Jun, Severe episode of recurrent major depressive disorder, without 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 ; Anxiety, generalized F41.1 and Borderline personality disorder in adult F60.3 [facility] [id number] [place] [address] 85718- 4420 11 Jun, 2017 Closed nondisplaced fracture of third metatarsal bone of left foot with routine healing, subsequent encounter S92.335D ; Closed nondisplaced fracture of second metatarsal bone of left foot with routine healing, subsequent encounter S92.325D and Closed nondisplaced fracture of fourth metatarsal bone of left foot with routine healing, subsequent encounter S92.345D [facility] [id number] [place] [address] 60462- 2158 Jun, Severe episode of recurrent major depressive disorder, without 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 ; Anxiety, generalized F41.1 and Borderline personality disorder in adult F60.3 [facility] [id number] [place] [address] 67891- 2234 Jun, [facility] [address], [place] [address]- 3378 Jun, [facility] [id number] [place] [address] 08437- 1858 Jun, [facility] [id number] [place] [address] 16586- 6692 Jun, [facility] [id number] [place] [address] 89633- 1709 Jun, [facility] [facility] [id number] [place] [address] 82625- 2925 Jun, Anxiety F41.9 [facility] [id number], [place] [address]- 4375 Jun, [facility] [id number] [place] [address] 06076- 6279 Jun, [facility] [id number] [place] [address] 38727- 1361 Jun, Type 2 diabetes mellitus with diabetic autonomic (poly) neuropathy E11.43 [facility] [id number] [place] [address] 76290- 6707 Jun, Severe episode of recurrent major depressive disorder, without 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 ; Anxiety, generalized F41.1 and Borderline personality disorder in adult F60.3 [place] [id number] [place] [address] 27147- 4797 Jun, Type 2 diabetes mellitus with diabetic autonomic (poly) neuropathy E11.43 and Chronic pain syndrome G89.4 [facility] [place] [id number] [place] [address] 11063- 3152 May, Recent urinary tract infection Z87.440 ; Deliberate self- cutting Z72.89 ; Chest discomfort R07.89 ; BMI 40.0-44.9, adult Z68.41 and Worried well Z71.1 [facility] [address] [place] [address] 53120- 3911 May, Severe episode of recurrent major depressive disorder, without psychotic features F33.2 ; Anxiety, generalized F41.1 and Borderline personality disorder in adult F60.3 [facility] [address], [place] [address]- 4614 May, [facility] [address] [place] [address] 64904- 5024 May, [address] [place] [address] 96879- 9898 May, Type 2 diabetes mellitus with diabetic autonomic (poly) neuropathy E11.43 [facility] [id number] [place] [address] 01287- 5967 May, Severe episode of recurrent major depressive disorder, without psychotic features F33.2 ; Anxiety, generalized F41.1 and Borderline personality disorder in adult F60.3 [facility] [id number] [place] [address] 32358- 6450 May, [facility] [address] 67198- 7670 May, Type 2 diabetes mellitus with diabetic autonomic (poly) neuropathy E11.43 ; Multiple neurological symptoms R29.90 ; Dysuria R30.0 ; Tobacco abuse Z72.0 ; Right hip pain M25.551 ; Anxiety F41.9 ; Gastritis determined by endoscopy K29.70 ; Chronic pain syndrome G89.4 ; Acute non- recurrent maxillary sinusitis J01.00 ; Self mutilating behavior Z72.89 and BMI 40.0-44.9, adult Z68.41 [facility] [address] 75439- 0658 May, Severe episode of recurrent major depressive disorder, without psychotic features F33.2 ; Anxiety, generalized F41.1 and Borderline personality disorder in adult F60.3 [facility] [address] 04444- 7543 Apr, [facility] [facility] [address] 14156- 2721 Apr, [facility] [address] 94807 -2122 Apr, [facility] [address] 29697 -8405 Apr, Aspiration pneumonia of right lower lobe, unspecified aspiration pneumonia type J69.0 [facility] [address] 09705- 1554 Apr, Severe episode of recurrent major depressive disorder, without psychotic features F33.2 ; Anxiety, generalized F41.1 and Borderline personality disorder in adult F60.3 [facility] [facility] [address] 98530- 3312 Apr, [facility] [address] [place] [address] 64724- 1213 Apr, Chronic pain syndrome G89.4 [facility] [address] [place] [address] 25045- 5278 21 Apr, 2017 Severe episode of recurrent major depressive disorder, without psychotic features F33.2 ; Anxiety, generalized F41.1 and Borderline personality disorder in adult F60.3 [facility] [id number] [place] [address] 49617- 9301 16 Apr, 2017 Severe episode of recurrent major depressive disorder, without psychotic features F33.2 ; Anxiety, generalized F41.1 and Borderline personality disorder in adult F60.3 [facility] [address] [place] [address] 68105- 0569 16 Apr, 2017 Closed nondisplaced fracture of third metatarsal bone of left foot with routine healing, subsequent encounter S92.335D ; Closed nondisplaced fracture of fourth metatarsal bone of left foot with routine healing, subsequent encounter S92.345D and Closed nondisplaced fracture of second metatarsal bone of left foot with routine healing, subsequent encounter S92.325D [facility] [address] [place] [address] 24557- 8674 16 Apr, 2017 [place] [address] [place] [address] 54347- 7686 15 Apr, 2017 [place] [place] [id number] [place] [address] 13782- 0063 14 Apr, 2017 [place] [id number] [place] [address] 33558- 3604 13 Apr, 2017 Screening breast examination Z12.31 [facility] [id number] [place] [address] 55244- 7973 09 Apr, 2017 [facility] [id number] [place] [address] 51939- 5523 Apr, Type 2 diabetes mellitus with diabetic autonomic (poly) neuropathy E11.43 [facility] [address] [place] [address] 63887- 9942 Apr, Severe episode of recurrent major depressive disorder, without psychotic features F33.2 ; Anxiety, generalized F41.1 and Borderline personality disorder in adult F60.3 [facility] [id number] [place] [address] 67723- 4515 Apr, Type 2 diabetes mellitus with diabetic autonomic (poly) neuropathy E11.43 ; Chronic pain syndrome G89.4 and Anxiety F41.9 [facility] [id number] [place] [address] 13197 -5549 Apr, BMI 45.0-49.9, adult Z68.42 [facility] [id number] [place] [address] 93822 -0967 Apr, Avulsion of toenail, initial encounter S91.209A and Acute non-recurrent maxillary sinusitis J01.00 [facility] [id number] [place] [address] 80590- 8658 Apr, [facility] [id number] [place] [address] 93077- 1534 Mar, [facility] [id number] [place] [address] 25789- 3836 Mar, Severe episode of recurrent major depressive disorder, without psychotic features F33.2 ; Anxiety, generalized F41.1 and Borderline personality disorder in adult F60.3 [facility] [id number] [place] [address] 62293- 6723 Mar, [facility] [id number] [place] [address] 75101- 2781 Mar, [facility] [id number] [place] [address] 07906- 9873 Mar, [facility] [id number] [place] [address] 43196- 4955 Mar, Seizure disorder G40.909 [facility] [id number] [place] [address] 95565- 6427 Mar, [facility] [id number] [place] [address] 64308- 4350 Mar, [facility] [id number] [place] [address] 97378 -0137 Mar, Left foot pain M79.672 ; Stage 3 chronic kidney disease N18.3 and Closed nondisplaced fracture of second metatarsal bone of left foot, initial encounter S92.325A [facility] [id number] [place] [address] 88804- 1459 Mar, Severe episode of recurrent major depressive disorder, without psychotic features F33.2 and Anxiety, generalized F41.1 [facility] [id number] [place] [address] 75937- 2506 Mar, [facility] [id number] [place] [address] 76208- 5415 Mar, Closed nondisplaced fracture of second metatarsal bone of left foot, initial encounter S92.325A and Closed nondisplaced fracture of third metatarsal bone of left foot, initial encounter S92.335A [facility] [id number] [place] [address] 37418- 6560 Mar, Seizure disorder G40.909 [facility] [id number] [place] [address] 26737- 4743 Mar, [facility] [id number] [place] [address] 01686- 4075 Mar, [facility] [id number] [place] [address] 66802- 6012 Mar, [facility] [id number] [place] [address] 50390- 8961 Mar, [facility] [id number] [place] [address] 09987- 3679 Mar, High risk sexual behavior Z72.51 [facility] [id number] [place] [address] 85365- 2121 Mar, Severe episode of recurrent major depressive disorder, without psychotic features F33.2 and Anxiety, generalized F41.1 [facility] [id number] [place] [address] 92505- 7110 Mar, Anxiety F41.9 and Type 2 diabetes mellitus with diabetic autonomic (poly)neuropathy E11.43 [facility] [id number] [place] [address] 18680- 8651 Mar, Anxiety F41.9 [place] [address] [id number] [place] [address] 30923- 7497 Mar, High risk sexual behavior Z72.51 [place] [address] [id number] [place] [address] 19558- 3013 Mar, Chronic pain syndrome G89.4 [place] [address] [id number] [place] [address] 66599- 5703 Mar, Type 2 diabetes mellitus with diabetic autonomic (poly) neuropathy E11.43 [place] [address] [id number] [place] [address] 18023- 2737 Mar, [place] [id number] [place] [address] 69561- 8886 Mar, Closed nondisplaced fracture of second metatarsal bone of left foot, initial encounter S92.325A ; Chronic pain syndrome G89.4 ; Closed nondisplaced fracture of third metatarsal bone of left foot, initial encounter S92.335A ; Acute left ankle pain M25.572 and Type 2 diabetes mellitus with diabetic autonomic (poly)neuropathy E11.43 [facility] [id number] [place] [address] 97701- 5835 Mar, [place] [id number] [place] [address] 89950- 6069 Mar, [facility] [id number] [place] [address] 06282- 5202 Mar, Severe episode of recurrent major depressive disorder, without psychotic features F33.2 and Anxiety, generalized F41.1 [facility] [id number] [place] [address] 66525- 5117 27 Feb, 2017 [facility] [id number] [place] [address] 96723- 4538 26 Feb, 2017 Renal insufficiency N28.9 [facility] [id number] [place] [address] 13062- 7712 Feb, [facility] [id number] [place] [address] 93013- 8554 26 Feb, 2017 Severe episode of recurrent major depressive disorder, without psychotic features F33.2 and Anxiety, generalized F41.1 [facility] [id number] [place] [address] 11787- 9458 25 Feb, 2017 [facility] [id number] [place] [address] 32880- 2983 22 Feb, 2017 [facility] [id number] [place] [address] 99432- 1409 20 Feb, 2017 Renal insufficiency N28.9 [facility] [id number] [place] [address] 90351- 2189 19 Feb, 2017 [facility] [id number] [place] [address] 87237 -1449 18 Feb, 2017 [facility] [id number] [place] [address] 07391- 9255 14 Feb, 2017 [facility] [id number] [place] [address] 40148- 0613 13 Feb, 2017 Severe episode of recurrent major depressive disorder, without psychotic features F33.2 and Anxiety, generalized F41.1 [facility] [address] [place] [address] 87888- 3797 13 Feb, 2017 Closed nondisplaced fracture of second metatarsal bone of left foot, initial encounter S92.325A ; Chronic pain syndrome G89.4 ; Closed nondisplaced fracture of third metatarsal bone of left foot, initial encounter S92.335A ; Left hip pain M25.552 and Stage 3 chronic kidney disease N18.3 [facility] [address] [id number] [address] 1646 Feb, [facility] [id number] [place] [address] 21482- 9138 Feb, [facility] [id number] [place] [address] 26128- 9345 Feb, Closed nondisplaced fracture of second metatarsal bone of left foot, initial encounter S92.325A and Closed nondisplaced fracture of third metatarsal bone of left foot, initial encounter S92.335A [place] [id number] [place] [address] 97361- 9034 Feb, [facility] [id number] [place] [address] 65991- 9269 Feb, Anxiety F41.9 [facility] [id number] [place] [address] 77698- 1270 Feb, [facility] [id number] [place] [address] 44344- 9878 Feb, Chronic pain syndrome G89.4 [facility] [address] [place] [address] 82597- 3751 Feb, Left foot pain M79.672 ; Closed nondisplaced fracture of second metatarsal bone of left foot, initial encounter S92.325A ; Closed nondisplaced fracture of third metatarsal bone of left foot, initial encounter S92.335A and Oral infection K12.2 [facility] [id number] [place] [address] 50758- 3395 Feb, [facility] [id number] [place] [address] 39066- 8415 Jan, [facility] [id number] [place] [address] 30363- 4150 Jan, Type 2 diabetes mellitus with diabetic autonomic (poly) neuropathy E11.43 and Congestive heart failure, unspecified congestive heart failure chronicity, unspecified congestive heart failure type I50.9 [place] [id number] [place] [address] 39328- 7019 Jan, Congestive heart failure, unspecified congestive heart failure chronicity, unspecified congestive heart failure type I50.9 and Stage 3 chronic kidney disease N18.3 [place] [id number] [place] [address] 67485- 4086 Jan, Stage 3 chronic kidney disease N18.3 ; Edema of both legs R60.0 ; Chronic congestive heart failure, unspecified congestive heart failure type I50.9 ; Acute low back pain without sciatica, unspecified back pain laterality M54.5 ; Chronic nausea R11.0 and Primary insomnia F51.01 [place] [id number] [place] [address] 28151- 3740 Jan, Severe episode of recurrent major depressive disorder, without psychotic features F33.2 and Anxiety, generalized F41.1 [place] [id number] [place] [address] 28322- 2665 Jan, [place] [id number] [place] [address] 73016- 0949 Jan, [place] [id number] [place] [address] 83619- 6427 Jan, [place] [id number] [place] [address] 87482- 2032 Jan, [place] [id number] [place] [address] 55055- 2607 Jan, Anxiety F41.9 and Severe episode of recurrent major depressive disorder, without psychotic features F33.2 [place] [id number] [place] [address] 37958- 2811 Jan, Type 2 diabetes mellitus with diabetic autonomic (poly) neuropathy E11.43 [place] [id number] [place] [address] 85503- 8470 Jan, Severe episode of recurrent major depressive disorder, without psychotic features F33.2 and Type 2 diabetes mellitus with diabetic autonomic (poly)neuropathy E11.43 [place] [id number] [place] [address] 05674- 8998 Jan, [place] [address] 43372- 2404 Jan, [place] [id number] [place] [address] 15318- 4294 Jan, Stage 3 chronic kidney disease N18.3 ; Seizure disorder G40.909 ; Edema of both legs R60.0 and Blister (nonthermal), right foot, initial encounter S90.821A [place] [id number] [place] [address] 39379- 5670 Jan, Severe episode of recurrent major depressive disorder, without psychotic features F33.2 and Anxiety, generalized F41.1 [place] [id number] [place] [address] 74735- 8048 Jan, Severe episode of recurrent major depressive disorder, without psychotic features F33.2 and Anxiety, generalized F41.1 [place] [id number] [place] [address] 29881- 8335 Jan, [place] [id number] [place] [address] 45072- 5808 Jan, Anxiety F41.9 and Primary insomnia F51.01 [place] [id number] [place] [address] 90558- 6535 Jan, Type 2 diabetes mellitus with diabetic autonomic (poly) neuropathy E11.43 ; retirement 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 ; Stage 3 chronic kidney disease N18.3 ; Chronic pain syndrome G89.4 ; Swelling of mandible R22.0 and Seizure disorder G40.909 [place] [address] [place] [address]- 8845 Jan, [place] [id number] [place] [address] 12727- 7055 Jan, [place] [id number] [place] [address] 98124- 2850 Dec, Severe episode of recurrent major depressive disorder, without psychotic features F33.2 and Anxiety, generalized F41.1 [place] [id number] [place] [address] 03583- 8676 Dec, Diarrhea, unspecified type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
--- OUTSIDE RECORDS SUMMARY | 2017-12-04 19:37 | XMS REPORT ---
Author Author MIRZA MARTINO Organization [facility] Address [address] [place] [address] Care Team Providers Care Top Flavor Attendant Name Role Phone HAIMLindsey MIRZA Unavailable PROBLEMS Type Condition ICD9-CM Code QFO27-ED Code Onset Dates Condition Status SNOMED Code Problem Postural hypotension I95.1 Active 14040710 Problem Seizure disorder G40.909 Active 125539752 Problem Seasonal allergic rhinitis, unspecified allergic rhinitis trigger J30.2 Active 184398623 Problem Closed nondisplaced fracture of second metatarsal bone of left foot, initial encounter S92.325A Active 45078783 Problem Essential hypertension I10 Active 71776622 Problem Multiple neurological symptoms R29.90 Active 128877730 Problem Port catheter in place Z95.828 Active 703518112 Problem Stage 3 chronic kidney disease N18.3 Active 351234539 Problem Gastritis determined by endoscopy K29.70 Active 5912927 Problem Self-inflicted injury Z72.89 Active 923997454 Problem Borderline personality disorder in adult F60.3 Active 98058397 Problem Chronic congestive heart failure, unspecified congestive heart failure type I50.9 Active 97942496 Problem Chronic pain syndrome G89.4 Active 919018579 Problem Primary insomnia F51.01 Active 5003403 Problem Acquired hypothyroidism E03.9 Active 175397096 Problem Gastroparesis K31.84 Active 861544509 Problem Severe episode of recurrent major depressive disorder, without psychotic features F33.2 Active 50208629 Problem Anxiety, generalized F41.1 Active 38576601 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 Active 114443786 Problem Type 2 diabetes mellitus with diabetic polyneuropathy E11.42 Active 56010560 Problem Tobacco abuse Z72.0 Active 275767033 Problem Noncompliance with diabetes treatment Z91.19 Active 0776225 ALLERGIES No Information ENCOUNTERS Encounter Location Date Diagnosis [facility] [address], [place] [address] October, [facility] [address], [place] [address] October, [facility] [id number] [place] [address] 327792- 5441 October, [facility] [address], [place] [address] October, [facility] [id number] [place] [address] [id number] Sep, [facility] [id number] [place] [address] 44312- 8851 Sep, Severe episode of recurrent major depressive disorder, without psychotic features F33.2 ; Anxiety, generalized F41.1 and Borderline personality disorder in adult F60.3 [facility] [id number] [place] [address] 58298- 7206 Sep, [facility] [id number] [place] [address] 62267- 2186 Sep, Throat pain R07.0 ; BMI 40.0-44.9, adult Z68.41 and Chronic pain syndrome G89.4 [facility] [id number] [place] [address] 21904- 5480 Sep, [facility] [id number] [place] [address] 31120- 9555 Sep, [facility] [id number] [place] [address] 36864- 5174 Sep, [facility] [id number] [place] [address] 46633- 8353 Sep, Anxiety, generalized F41.1 [facility] [id number] [place] [address] 58610- 7609 Sep, [facility] [address], [place] [address] 8098 Sep, Stage 3 chronic kidney disease N18.3 [facility] [id number] [place] [address] 41004- 3576 Sep, Stage 3 chronic kidney disease N18.3 and Chronic pain syndrome G89.4 [facility] [id number] [place] [address] 16899- 0878 Sep, Severe episode of recurrent major depressive disorder, without psychotic features F33.2 ; Anxiety, generalized F41.1 and Borderline personality disorder in adult F60.3 [facility] [id number] [place] [address] 52822- 3231 04 Sep, 2017 Chronic pain syndrome G89.4 ; Anxiety, generalized F41.1 and BMI 45.0-49.9, adult Z68.42 [facility] [id number] [place] [address] 36430- 9788 Sep, [facility] [id number] [place] [address] 11675- 1291 Sep, [facility] [id number] [place] [address] 16353- 5056 Sep, Severe episode of recurrent major depressive disorder, without psychotic features F33.2 ; Anxiety, generalized F41.1 and Borderline personality disorder in adult F60.3 [facility] [id number] [place] [address] 79190- 1625 Sep, [facility] [id number] [place] [address] 53266 -3159 Aug, Dysuria R30.0 ; Type 2 diabetes mellitus with diabetic polyneuropathy E11.42 ; Oral abscess K12.2 and BMI 40.0-44.9, adult Z68.41 [facility] [id number] [place] [address] 43224- 9657 30 Aug, 2017 [facility] [id number] [place] [address] 98686- 1755 Aug, [facility] [id number] [place] [address] 11474- 2861 Aug, 2017 [facility] [address], [place] [address]- 9395 27 Aug, 2017 [facility] [id number] [place] [address] 35306- 1816 27 Aug, 2017 Severe episode of recurrent major depressive disorder, without psychotic features F33.2 ; Anxiety, generalized F41.1 and Borderline personality disorder in adult F60.3 [facility] [id number] [place] [address] 54487- 6158 22 Aug, 2017 [facility] [id number] [place] [address] 69356- 6321 20 Aug, 2017 [facility] [id number] [place] [address] 06348- 1387 19 Aug, 2017 Severe episode of recurrent major depressive disorder, without psychotic features F33.2 ; Anxiety, generalized F41.1 and Borderline personality disorder in adult F60.3 [facility] [id number] [place] [address] 94325 -3994 17 Aug, 2017 [facility] [id number] [place] [address] 06702- 3578 15 Aug, 2017 [facility] [id number] [place] [address] 17524- 4678 14 Aug, 2017 [facility] [address], [place] [address] 14 Aug, 2017 Dysuria R30.0 ; Dental infection K04.7 ; Acute cystitis with hematuria N30.01 and BMI 45.0-49.9, adult Z68.42 [facility] [address], [place] [address]- 8569 14 Aug, 2017 Severe episode of recurrent major depressive disorder, without psychotic features F33.2 ; Anxiety, generalized F41.1 and Borderline personality disorder in adult F60.3 [facility] [address] [place] [address] 47672- 7480 09 Aug, 2017 [facility] [address], [place] [address] Aug, Closed nondisplaced fracture of second metatarsal bone of left foot, initial encounter S92.325A and Chronic pain syndrome G89.4 [facility] [address], [place] [address] 6016 08 Aug, 2017 Type 2 diabetes mellitus with diabetic polyneuropathy E11.42 [facility] [id number] [address] 2546 Aug, Severe episode of recurrent major depressive disorder, without psychotic features F33.2 ; Anxiety, generalized F41.1 and Borderline personality disorder in adult F60.3 [facility] [address], [place] [address] 8[address] Aug, [facility] [address], [place] [address]- 9496 Aug, [facility] [address], [place] [address]- 2365 Aug, [facility] [address], [place] [address]- 4167 Aug, [facility] [address], [place] [address] 3929 Aug, [facility] [address], [place] [address]- 7784 Jul, [facility] [address], [place] [address]- 8806 Jul, [facility] [id number] [address]- 0659 Jul, Severe episode of recurrent major depressive disorder, without psychotic features F33.2 ; Anxiety, generalized F41.1 and Borderline personality disorder in adult F60.3 [facility] [address], [place] [address]- 8967 Jul, Type 2 diabetes mellitus with diabetic polyneuropathy E11.42 [facility] [id number] [place] [address] 56883- 8956 22 Jul, 2017 Closed nondisplaced fracture of second metatarsal bone of left foot, initial encounter S92.325A and Closed nondisplaced fracture of third metatarsal bone of left foot, initial encounter S92.335A [facility] [id number] [place] [address] 81030- 4926 Jul, [facility] [id number] [place] [address] 42738- 6710 20 Jul, 2017 Closed nondisplaced fracture of second metatarsal bone of left foot, initial encounter S92.325A ; Acute left ankle pain M25.572 ; Acute midline low back pain without sciatica M54.5 and Seasonal allergic rhinitis, unspecified allergic rhinitis trigger J30.2 [facility] [id number] [place] [address] 90905- 5854 Jul, [facility] [id number] [place] [address] 72526- 7418 Jul, [facility] [id number] [place] [address] 86399- 9339 15 Jul, 2017 [facility] [id number] [place] [address] 11096- 3684 15 Jul, 2017 Frequent falls R29.6 [facility] [id number] [place] [address] 48018- 2256 14 Jul, 2017 Frequent falls R29.6 [facility] [id number] [place] [address] 93147- 2652 07 Jul, 2017 Severe episode of recurrent major depressive disorder, without psychotic features F33.2 ; Anxiety, generalized F41.1 and Borderline personality disorder in adult F60.3 [facility] [id number] [place] [address] 96439- 0499 07 Jul, 2017 Chronic pain syndrome G89.4 [facility] [id number] [place] [address] 88400- 7154 Jul, 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 [facility] [id number] [place] [address] 22752- 8978 Jul, [facility] [id number] [place] [address] 00562- 8187 Jul, Type 2 diabetes mellitus with diabetic polyneuropathy E11.42 [facility] [id number] [place] [address] 68876- 3140 Jun, 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 and Thrush B37.0 [facility] [address] 96891- 1199 Jun, Severe episode of recurrent major depressive disorder, without psychotic features F33.2 ; Anxiety, generalized F41.1 and Borderline personality disorder in adult F60.3 [facility] [address] 70112- 5966 Jun, Severe episode of recurrent major depressive disorder, without psychotic features F33.2 ; Anxiety, generalized F41.1 and Borderline personality disorder in adult F60.3 [facility] [id number] [place] [address] 66585- 6427 Jun, Frequent falls R29.6 ; Bronchitis J40 ; BMI 40.0-44.9, adult Z68.41 and Coccygeal pain, acute M53.3 [facility] [id number] [place] [address] 32323- 1112 Jun, [facility] [id number] [place] [address] 03773 -4652 Jun, [facility] [id number] [place] [address] 65062- 5307 Jun, [facility] [id number] [place] [address] 19748- 2094 Jun, Dental caries, unspecified K02.9 [facility] [address], [place] [address]- 3749 Jun, Acute non-recurrent maxillary sinusitis J01.00 and BMI 40.0- 44.9, adult Z68.41 [facility] [id number], [place] [address]- 0010 Jun, [facility] [id number] [place] [address] 97514- 8846 Jun, Severe episode of recurrent major depressive disorder, without psychotic features F33.2 ; Anxiety, generalized F41.1 and Borderline personality disorder in adult F60.3 [facility] [id number] [place] [address] 11261- 0041 Jun, Closed nondisplaced fracture of third metatarsal bone of left foot with routine healing, subsequent encounter S92.335D ; Closed nondisplaced fracture of second metatarsal bone of left foot with routine healing, subsequent encounter S92.325D and Closed nondisplaced fracture of fourth metatarsal bone of left foot with routine healing, subsequent encounter S92.345D [facility] [address] [place] [address] 76098- 0702 Jun, Severe episode of recurrent major depressive disorder, without psychotic features F33.2 ; Anxiety, generalized F41.1 and Borderline personality disorder in adult F60.3 [facility] [address], [place] [address]- 1845 Jun, [facility] [id number] [place] [address] 35757- 9791 Jun, [facility] [address], [place] [address]- 2328 Jun, [facility] [id number] [place] [address] 48145- 6807 Jun, [facility] [address], [place] [address]- 8008 Jun, [facility] [id number], [place] [address]- 4217 Jun, Anxiety F41.9 [facility] [id number] [place] [address] 88259- 2144 Jun, [facility] [id number] [place] [address] 04643- 9997 Jun, [facility] [id number] [place] [address] 05965- 9588 Jun, Type 2 diabetes mellitus with diabetic autonomic (poly) neuropathy E11.43 [facility] [id number] [place] [address] 48705- 1314 Jun, Severe episode of recurrent major depressive disorder, without psychotic features F33.2 ; Anxiety, generalized F41.1 and Borderline personality disorder in adult F60.3 [facility] [id number] [place] [address] 47792- 2362 Jun, Type 2 diabetes mellitus with diabetic autonomic (poly) neuropathy E11.43 and Chronic pain syndrome G89.4 [facility] [id number] [place] [address] 82236- 4101 May, Recent urinary tract infection Z87.440 ; Deliberate self- cutting Z72.89 ; Chest discomfort R07.89 ; BMI 40.0-44.9, adult Z68.41 and Worried well Z71.1 [facility] [id number] [place] [address] 11896- 8581 May, Severe episode of recurrent major depressive disorder, without psychotic features F33.2 ; Anxiety, generalized F41.1 and Borderline personality disorder in adult F60.3 [facility] [id number] [place] [address] 87610- 6172 18 May, 2017 [facility] [id number] [place] [address] 53472- 4228 14 May, 2017 [facility] [id number] [place] [address] 26810- 4582 May, Type 2 diabetes mellitus with diabetic autonomic (poly) neuropathy E11.43 [facility] [id number] [place] [address] 46497- 3676 May, Severe episode of recurrent major depressive disorder, without psychotic features F33.2 ; Anxiety, generalized F41.1 and Borderline personality disorder in adult F60.3 [facility] [id number] [place] [address] 82835- 2431 May, [facility] [id number] [place] [address] 71001- 4068 May, Type 2 diabetes mellitus with diabetic autonomic (poly) neuropathy E11.43 ; Multiple neurological symptoms R29.90 ; Dysuria R30.0 ; Tobacco abuse Z72.0 ; Right hip pain M25.551 ; Anxiety F41.9 ; Gastritis determined by endoscopy K29.70 ; Chronic pain syndrome G89.4 ; Acute non- recurrent maxillary sinusitis J01.00 ; Self mutilating behavior Z72.89 and BMI 40.0-44.9, adult Z68.41 [facility] [id number] [place] [address] 90598- 4719 May, Severe episode of recurrent major depressive disorder, without psychotic features F33.2 ; Anxiety, generalized F41.1 and Borderline personality disorder in adult F60.3 [facility] [id number] [place] [address] 73420- 4476 Apr, [facility] [id number] [place] [address] 42397- 7086 Apr, [facility] [id number] [place] [address] 90114 -9485 Apr, [facility] [address] [place] [id number] [place] [address] 05144 -2327 Apr, Aspiration pneumonia of right lower lobe, unspecified aspiration pneumonia type J69.0 [facility] [id number] [place] [address] 38095- 7317 Apr, Severe episode of recurrent major depressive disorder, without psychotic features F33.2 ; Anxiety, generalized F41.1 and Borderline personality disorder in adult F60.3 [facility] [address], [place] [address]- 6664 Apr, [facility] [id number] [place] [address] 67238- 9888 Apr, Chronic pain syndrome G89.4 [facility] [id number] [place] [address] 27351- 2131 21 Apr, 2017 Severe episode of recurrent major depressive disorder, without psychotic features F33.2 ; Anxiety, generalized F41.1 and Borderline personality disorder in adult F60.3 [facility] [id number] [place] [address] 26147- 6526 16 Apr, 2017 Severe episode of recurrent major depressive disorder, without psychotic features F33.2 ; Anxiety, generalized F41.1 and Borderline personality disorder in adult F60.3 [facility] [id number] [place] [address] 41060- 6495 16 Apr, 2017 Closed nondisplaced fracture of third metatarsal bone of left foot with routine healing, subsequent encounter S92.335D ; Closed nondisplaced fracture of fourth metatarsal bone of left foot with routine healing, subsequent encounter S92.345D and Closed nondisplaced fracture of second metatarsal bone of left foot with routine healing, subsequent encounter S92.325D [facility] [facility] [address], [place] [address]- 4083 16 Apr, 2017 [facility] [id number] [place] [address] 34851- 8763 15 Apr, 2017 [facility] [id number] [place] [address] 66029- 4422 14 Apr, 2017 [facility] [id number] [place] [address] 74995- 1529 13 Apr, 2017 Screening breast examination Z12.31 [facility] [id number] [place] [address] 36858- 1779 09 Apr, 2017 [facility] [id number] [place] [address] 34775- 6347 Apr, Type 2 diabetes mellitus with diabetic autonomic (poly) neuropathy E11.43 [facility] [id number] [place] [address] 41149- 6189 Apr, Severe episode of recurrent major depressive disorder, without psychotic features F33.2 ; Anxiety, generalized F41.1 and Borderline personality disorder in adult F60.3 [facility] [id number] [place] [address] 77647- 9228 Apr, Type 2 diabetes mellitus with diabetic autonomic (poly) neuropathy E11.43 ; Chronic pain syndrome G89.4 and Anxiety F41.9 [facility] [id number] [place] [address] 26581 -7768 Apr, BMI 45.0-49.9, adult Z68.42 [facility] [id number] [place] [address] 10827 -4009 Apr, Avulsion of toenail, initial encounter S91.209A and Acute non-recurrent maxillary sinusitis J01.00 [facility] [id number] [place] [address] 62805- 2990 Apr, [facility] [id number] [place] [address] 30263- 0724 Mar, [facility] [id number] [place] [address] 71170- 8893 Mar, Severe episode of recurrent major depressive disorder, without psychotic features F33.2 ; Anxiety, generalized F41.1 and Borderline personality disorder in adult F60.3 [facility] [id number] [place] [address] 70646- 5460 Mar, [facility] [id number] [place] [address] 54586- 6350 Mar, [facility] [id number] [place] [address] 34564- 3842 Mar, [facility] [address], [place] [address]- 0760 Mar, Seizure disorder G40.909 [facility] [id number] [place] [address] 60708- 5771 Mar, [facility] [id number] [place] [address] 82491- 6199 Mar, [facility] [id number] [place] [address] 96866 -8854 Mar, Left foot pain M79.672 ; Stage 3 chronic kidney disease N18.3 and Closed nondisplaced fracture of second metatarsal bone of left foot, initial encounter S92.325A [facility] [id number] [place] [address] 16970- 7181 Mar, Severe episode of recurrent major depressive disorder, without psychotic features F33.2 and Anxiety, generalized F41.1 [facility] [id number] [place] [address] 38269- 5041 Mar, [facility] [id number] [place] [address] 54153- 3728 Mar, Closed nondisplaced fracture of second metatarsal bone of left foot, initial encounter S92.325A and Closed nondisplaced fracture of third metatarsal bone of left foot, initial encounter S92.335A [facility] [id number] [place] [address] 93059- 2745 Mar, Seizure disorder G40.909 [facility] [id number] [place] [address] 90348- 8241 Mar, [facility] [id number] [place] [address] 73594- 6389 Mar, [facility] [id number] [place] [address] 74774- 0874 Mar, [facility] [id number] [place] [address] 13447- 1693 Mar, [facility] [id number] [place] [address] 72631- 4066 Mar, High risk sexual behavior Z72.51 [facility] [id number] [place] [address] 34522- 9827 Mar, Severe episode of recurrent major depressive disorder, without psychotic features F33.2 and Anxiety, generalized F41.1 [facility] [id number] [place] [address] 80004- 0510 Mar, Anxiety F41.9 and Type 2 diabetes mellitus with diabetic autonomic (poly)neuropathy E11.43 [facility] [id number] [place] [address] 35377- 4446 Mar, Anxiety F41.9 [facility] [place] [address] [id number] [place] [address] [phone] Mar, High risk sexual behavior Z72.51 [place] [address] [place] [id number] [place] [address] [phone] Mar, Chronic pain syndrome G89.4 [place] [address] [id number] [place] [address] [phone] Mar, Type 2 diabetes mellitus with diabetic autonomic (poly) neuropathy E11.43 [place] [id number] [place] [address] 20544- 9402 Mar, [place] [id number] [place] [address] 16783- 0359 Mar, Closed nondisplaced fracture of second metatarsal bone of left foot, initial encounter S92.325A ; Chronic pain syndrome G89.4 ; Closed nondisplaced fracture of third metatarsal bone of left foot, initial encounter S92.335A ; Acute left ankle pain M25.572 and Type 2 diabetes mellitus with diabetic autonomic (poly)neuropathy E11.43 [facility] [address] [address] 4[address] Mar, [facility] [id number] [address] 1889 Mar, [facility] [id number] [place] [address] 89787- 4688 Mar, Severe episode of recurrent major depressive disorder, without psychotic features F33.2 and Anxiety, generalized F41.1 [facility] [id number] [place] [address] 21522- 8010 Feb, [facility] [id number] [place] [address] 95424- 9495 Feb, Renal insufficiency N28.9 [facility] [id number] [place] [address] 67277- 1892 Feb, [facility] [id number] [place] [address] 30236- 6350 Feb, Severe episode of recurrent major depressive disorder, without psychotic features F33.2 and Anxiety, generalized F41.1 [facility] [id number] [place] [address] 87866- 4010 Feb, [facility] [id number] [place] [address] 80133- 1112 22 Feb, 2017 [facility] [id number] [place] [address] 22939- 9320 Feb, Renal insufficiency N28.9 [facility] [id number] [place] [address] 76131 254 19 Feb, 2017 [facility] [address] [address] 18 Feb, 2017 [facility] [id number] [place] [address] 05796- 4829 14 Feb, 2017 [facility] [id number] [place] [address] 28793- 8596 13 Feb, 2017 Severe episode of recurrent major depressive disorder, without psychotic features F33.2 and Anxiety, generalized F41.1 [facility] [id number] [address] 3419 13 Feb, 2017 Closed nondisplaced fracture of second metatarsal bone of left foot, initial encounter S92.325A ; Chronic pain syndrome G89.4 ; Closed nondisplaced fracture of third metatarsal bone of left foot, initial encounter S92.335A ; Left hip pain M25.552 and Stage 3 chronic kidney disease N18.3 [facility] [id number] [place] [address] 90015- 5989 Feb, [facility] [id number] [place] [address] 04269- 5745 Feb, [facility] [id number] [place] [address] 20805- 6020 Feb, Closed nondisplaced fracture of second metatarsal bone of left foot, initial encounter S92.325A and Closed nondisplaced fracture of third metatarsal bone of left foot, initial encounter S92.335A [facility] [id number] [place] [address] 88204- 8482 Feb, [facility] [id number] [place] [address] 75436- 2656 Feb, Anxiety F41.9 [facility] [id number] [place] [address] 19326- 9437 Feb, [facility] [id number] [place] [address] 52392- 9070 Feb, Chronic pain syndrome G89.4 [facility] [id number] [place] [address] 24998- 0415 05 Feb, 2017 Left foot pain M79.672 ; Closed nondisplaced fracture of second metatarsal bone of left foot, initial encounter S92.325A ; Closed nondisplaced fracture of third metatarsal bone of left foot, initial encounter S92.335A and Oral infection K12.2 [facility] [id number] [place] [address] 66068- 6644 Feb, [facility] [address], [place] [address]- 7911 Jan, [facility] [id number] [place] [address] 45278- 2015 Jan, Type 2 diabetes mellitus with diabetic autonomic (poly) neuropathy E11.43 and Congestive heart failure, unspecified congestive heart failure chronicity, unspecified congestive heart failure type I50.9 [facility] [place] [id number] [place] [address] 53305- 9117 Jan, Congestive heart failure, unspecified congestive heart failure chronicity, unspecified congestive heart failure type I50.9 and Stage 3 chronic kidney disease N18.3 [facility] [id number] [place] [address] 73724- 8628 Jan, Stage 3 chronic kidney disease N18.3 ; Edema of both legs R60.0 ; Chronic congestive heart failure, unspecified congestive heart failure type I50.9 ; Acute low back pain without sciatica, unspecified back pain laterality M54.5 ; Chronic nausea R11.0 and Primary insomnia F51.01 [place] [id number] [place] [address] 43836- 1586 Jan, Severe episode of recurrent major depressive disorder, without psychotic features F33.2 and Anxiety, generalized F41.1 [facility] [address], [place] [address]- 9014 Jan, [place] [id number] [place] [address] 12007- 4914 Jan, [facility] [id number] [place] [address] 60351- 8401 Jan, [place] [id number] [place] [address] 62842- 0181 Jan, [facility] [id number] [place] [address] 51264- 0574 Jan, Anxiety F41.9 and Severe episode of recurrent major depressive disorder, without psychotic features F33.2 [place] [id number] [place] [address] 59502- 2719 Jan, Type 2 diabetes mellitus with diabetic autonomic (poly) neuropathy E11.43 [facility] [id number] [place] [address] 23901- 1385 Jan, Severe episode of recurrent major depressive disorder, without psychotic features F33.2 and Type 2 diabetes mellitus with diabetic autonomic (poly)neuropathy E11.43 [facility] [place] [id number] [place] [address] 65621- 3613 Jan, [facility] [id number] [place] [address] 95834- 5515 Jan, [facility] [id number] [place] [address] 88561- 2647 Jan, Stage 3 chronic kidney disease N18.3 ; Seizure disorder G40.909 ; Edema of both legs R60.0 and Blister (nonthermal), right foot, initial encounter S90.821A [facility] [id number] [place] [address] 26134- 2045 Jan, Severe episode of recurrent major depressive disorder, without psychotic features F33.2 and Anxiety, generalized F41.1 [facility] [place] [id number] [place] [address] 46221- 2855 Jan, Severe episode of recurrent major depressive disorder, without psychotic features F33.2 and Anxiety, generalized F41.1 [place] [id number] [place] [address] 46130- 0053 Jan, [facility] [id number] [place] [address] 27169- 7153 Jan, Anxiety F41.9 and Primary insomnia F51.01 [place] [id number] [place] [address] 12354- 0424 Jan, Type 2 diabetes mellitus with diabetic autonomic (poly) neuropathy E11.43 ; 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 ; Stage 3 chronic kidney disease N18.3 ; Chronic pain syndrome G89.4 ; Swelling of mandible R22.0 and Seizure disorder G40.909 [facility] [id number] [place] [address] 96286- 9828 Jan, [place]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
--- OUTSIDE RECORDS SUMMARY | 2017-12-04 19:37 | XMS REPORT ---
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 Active [id number] Problem Recurrent major depressive disorder, remission status unspecified F33.9 Active 87383984 Problem Severe episode of recurrent major depressive disorder, without psychotic features F33.2 Active 63504955 Problem Tobacco abuse Z72.0 Active 168312997 Problem Anxiety, generalized F41.1 Active 75953476 Problem Stage 3 chronic kidney disease N18.3 Active 548697773 Problem Weakness R53.1 Active 66627590 Problem High risk sexual behavior Z72.51 Active 654320859 Problem Vaginal bleeding N93.9 Active 014062502 Problem Chronic nausea R11.0 Active 308439077 Problem Right lower quadrant abdominal pain R10.31 Active 585922837 Problem Self-inflicted injury Z72.89 Active 896348618 Problem Noncompliance with diabetes treatment Z91.19 Active 1515975 Problem Unspecified fall W19.XXXA Active 3260291 Problem Type 2 diabetes mellitus with diabetic polyneuropathy E11.42 Active 79935073 Problem Gastritis determined by endoscopy K29.70 Active 3273125 Problem Unspecified abdominal pain R10.9 Active 962221296 Problem Diarrhea, unspecified type R19.7 Active 47075401 Problem Left hip pain M25.552 Active 39669656 Problem Closed nondisplaced fracture of second metatarsal bone of left foot, initial encounter S92.325A Active 26375771 Problem Neck pain M54.2 Active 43686461 Problem Thrush B37.0 Active 20338418 Problem Anxiety F41.9 Active 23845058 Problem Swelling of both lower extremities M79.89 Active 70656247933477280 Problem Essential hypertension I10 Active 46491841 Problem Edema of both legs R60.0 Active 021782545 Problem Acquired hypothyroidism E03.9 Active 855858908 Problem Blister (nonthermal), right foot, initial encounter S90.821A Active 275189860 Problem Congestive heart failure, unspecified congestive heart failure chronicity, unspecified congestive heart failure type I50.9 Active 97396904 Problem Closed nondisplaced fracture of third metatarsal bone of left foot, initial encounter S92.335A Active 030964544 Problem Port catheter in place Z95.828 Active 060597062 Problem Chronic congestive heart failure, unspecified congestive heart failure type I50.9 Active 10627390 Problem Primary insomnia F51.01 Active 0739579 Problem Postural hypotension I95.1 Active 27469030 Problem Screening breast examination Z12.39 Active 730937999 Problem Acute non-recurrent maxillary sinusitis J01.00 Active 28343020 Problem Type 2 diabetes mellitus with diabetic autonomic (poly)neuropathy E11.43 Active 201183806 Problem Syncope, unspecified syncope type R55 Active 022270888 Problem Chronic pain syndrome G89.4 Active 576704257 Problem Acute pain of right shoulder M25.511 Active 12297605 Problem Epigastric pain R10.13 Active 41167321 Problem Seizure disorder G40.909 Active 285364159 Problem Gastroparesis K31.84 Active 667019346 Problem Chronic superficial gastritis without bleeding K29.30 Active 202786682 Problem Seasonal allergic rhinitis, unspecified allergic rhinitis trigger J30.2 Active 268363672 Problem Swelling of mandible R22.0 Active 748952155 ALLERGIES No Information SOCIAL HISTORY Never Assessed PLAN OF CARE VITAL SIGNS MEDICATIONS Unknown [...] vein (port for IV access) Dr. Hernandez [facility] 08-29-2013 Surgical History partial hysterectomy Surgical History EGD Hospitalization History transfusion given after delivery Hospitalization History Chest pain, uncontrolled Hyperglycemia--[facility] 12/15/15 Hospitalization History Influenza B Hospitalization History pneumonia Hospitalization History [facility] 07/16/16 Hospitalization History for high sugar 07/12
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
--- OUTSIDE RECORDS SUMMARY | 2017-12-04 19:39 | XMS REPORT ---
Author Author MIRZA MARTINO Organization [facility] Address [address] [place] [address] Care Team Providers Care Linux Architect Name Role Phone HAIMLindsey MIRZA Unavailable PROBLEMS Type Condition ICD9-CM Code XRR23-BU Code Onset Dates Condition Status SNOMED Code Problem Postural hypotension I95.1 Active 67849150 Problem Seizure disorder G40.909 Active 919223329 Problem Seasonal allergic rhinitis, unspecified allergic rhinitis trigger J30.2 Active 186932571 Problem Closed nondisplaced fracture of second metatarsal bone of left foot, initial encounter S92.325A Active 25997471 Problem Essential hypertension I10 Active 14781733 Problem Multiple neurological symptoms R29.90 Active 295078224 Problem Port catheter in place Z95.828 Active 330375629 Problem Stage 3 chronic kidney disease N18.3 Active 726088689 Problem Gastritis determined by endoscopy K29.70 Active 4577911 Problem Self-inflicted injury Z72.89 Active 577574640 Problem Borderline personality disorder in adult F60.3 Active 90589811 Problem Chronic congestive heart failure, unspecified congestive heart failure type I50.9 Active 12374064 Problem Chronic pain syndrome G89.4 Active 693376441 Problem Primary insomnia F51.01 Active 2393410 Problem Acquired hypothyroidism E03.9 Active 189876814 Problem Gastroparesis K31.84 Active 688938163 Problem Severe episode of recurrent major depressive disorder, without psychotic features F33.2 Active 54825429 Problem Anxiety, generalized F41.1 Active 12790288 Problem 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 Active 022839086 Problem Type 2 diabetes mellitus with diabetic polyneuropathy E11.42 Active 08586820 Problem Tobacco abuse Z72.0 Active 478027822 Problem Noncompliance with diabetes treatment Z91.19 Active 9242425 ALLERGIES No Information ENCOUNTERS Encounter Location Date Diagnosis [facility] [id number] [address] October, [facility] [id number] [address] October, [facility] [id number] [place] [address] 142848- 9775 October, [facility] [id number] [id number] Sep, [facility] [id number] [place] [address] 31637- 9625 Sep, [facility] [id number] [place] [address] 44705- 9703 Sep, [facility] [id number] [place] [address] 55643- 4483 Sep, Throat pain R07.0 and BMI 40.0-44.9, adult Z68.41 [facility] [id number] [place] [address] 68989- 5477 Sep, [facility] [id number] [place] [address] 72893- 3488 Sep, [facility] [id number] [place] [address] 40859- 9796 Sep, [facility] [id number] [place] [address] 63636- 9017 Sep, Anxiety, generalized F41.1 [facility] [id number] [place] [address] 42082- 1351 Sep, [facility] [id number] [place] [address] 68595- 5931 Sep, Stage 3 chronic kidney disease N18.3 [facility] [id number] [place] [address] 92164- 7625 Sep, Stage 3 chronic kidney disease N18.3 and Chronic pain syndrome G89.4 [facility] [id number] [place] [address] 29287- 6866 Sep, Severe episode of recurrent major depressive disorder, without psychotic features F33.2 ; Anxiety, generalized F41.1 and Borderline personality disorder in adult F60.3 [facility] [id number] [place] [address] 73889- 7428 Sep, Chronic pain syndrome G89.4 ; Anxiety, generalized F41.1 and BMI 45.0-49.9, adult Z68.42 [facility] [id number] [place] [address] 82638- 6625 Sep, [facility] [id number] [place] [address] 58446- 9015 Sep, [facility] [id number] [place] [address] 95914- 9306 Sep, Severe episode of recurrent major depressive disorder, without psychotic features F33.2 ; Anxiety, generalized F41.1 and Borderline personality disorder in adult F60.3 [facility] [id number] [place] [address] 99483- 8882 Sep, [facility] [id number] [place] [address] 20260 -1820 Aug, Dysuria R30.0 ; Type 2 diabetes mellitus with diabetic polyneuropathy E11.42 ; Oral abscess K12.2 and BMI 40.0-44.9, adult Z68.41 [facility] [id number] [place] [address] 23285- 9833 Aug, [facility] [id number] [place] [address] 52972- 1352 Aug, [facility] [id number] [place] [address] 27100- 5412 Aug, [facility] [id number] [place] [address] 02144- 2162 Aug, [facility] [id number] [place] [address] 66153- 4175 Aug, Severe episode of recurrent major depressive disorder, without psychotic features F33.2 ; Anxiety, generalized F41.1 and Borderline personality disorder in adult F60.3 [facility] [id number] [place] [address] 10854- 0567 22 Aug, 2017 [facility] [id number] [place] [address] 61954- 1683 20 Aug, 2017 [facility] [id number] [place] [address] 88803- 7292 19 Aug, 2017 Severe episode of recurrent major depressive disorder, without psychotic features F33.2 ; Anxiety, generalized F41.1 and Borderline personality disorder in adult F60.3 [facility] [id number] [place] [address] 03058 -6657 17 Aug, 2017 [facility] [id number] [place] [address] 08859- 4650 15 Aug, 2017 [facility] [id number] [place] [address] 91297- 7048 14 Aug, 2017 [facility] [id number] [place] [address] 44913 -1682 14 Aug, 2017 Dysuria R30.0 ; Dental infection K04.7 ; Acute cystitis with hematuria N30.01 and BMI 45.0-49.9, adult Z68.42 [facility] [id number] [place] [address] 18098- 3116 14 Aug, 2017 Severe episode of recurrent major depressive disorder, without psychotic features F33.2 ; Anxiety, generalized F41.1 and Borderline personality disorder in adult F60.3 [facility] [id number] [place] [address] 22882- 4878 09 Aug, 2017 [facility] [id number] [place] [address] 77490- 2975 08 Aug, 2017 Closed nondisplaced fracture of second metatarsal bone of left foot, initial encounter S92.325A and Chronic pain syndrome G89.4 [facility] [id number] [address] 08 Aug, 2017 Type 2 diabetes mellitus with diabetic polyneuropathy E11.42 [facility] [address] [address] Aug, Severe episode of recurrent major depressive disorder, without psychotic features F33.2 ; Anxiety, generalized F41.1 and Borderline personality disorder in adult F60.3 [facility] [address] [address] 07 Aug, 2017 [facility] [address] [address] 9[address] Aug, [facility] [address] [address] 9[address] Aug, [facility] [address] [address] 4988 Aug, [facility] [address] [address] 2604 Aug, [facility] [address] [address] 6[address] Jul, [facility] [address] [address] 87[address] Jul, [facility] [address] [address] Jul, Severe episode of recurrent major depressive disorder, without psychotic features F33.2 ; Anxiety, generalized F41.1 and Borderline personality disorder in adult F60.3 [facility] [id number] [address] Jul, Type 2 diabetes mellitus with diabetic polyneuropathy E11.42 [facility] [id number] [address] 3[address] Jul, Closed nondisplaced fracture of second metatarsal bone of left foot, initial encounter S92.325A and Closed nondisplaced fracture of third metatarsal bone of left foot, initial encounter S92.335A [facility] [id number] [place] [address] 18146- 2244 Jul, [facility] [id number] [place] [address] 32920- 5909 20 Jul, 2017 Closed nondisplaced fracture of second metatarsal bone of left foot, initial encounter S92.325A ; Acute left ankle pain M25.572 ; Acute midline low back pain without sciatica M54.5 and Seasonal allergic rhinitis, unspecified allergic rhinitis trigger J30.2 [facility] [id number] [place] [address] 52535- 9584 Jul, [facility] [id number] [place] [address] 78920- 3183 19 Jul, 2017 [facility] [id number] [place] [address] 39309- 8274 15 Jul, 2017 [facility] [id number] [place] [address] 72167- 7517 15 Jul, 2017 Frequent falls R29.6 [facility] [id number] [place] [address] 15569- 6772 14 Jul, 2017 Frequent falls R29.6 [facility] [id number] [place] [address] 53387- 1214 07 Jul, 2017 Severe episode of recurrent major depressive disorder, without psychotic features F33.2 ; Anxiety, generalized F41.1 and Borderline personality disorder in adult F60.3 [facility] [id number] [place] [address] 77578- 4827 07 Jul, 2017 Chronic pain syndrome G89.4 [facility] [id number] [place] [address] 44268- 2337 07 Jul, 2017 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 [facility] [id number] [place] [address] 17458- 0983 05 Jul, 2017 [facility] [id number] [place] [address] 24959- 7204 Jul, Type 2 diabetes mellitus with diabetic polyneuropathy E11.42 [facility] [address] 82570- 2787 Jun, 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 and Thrush B37.0 [place] [facility] [address] 75940- 0922 Jun, Severe episode of recurrent major depressive disorder, without psychotic features F33.2 ; Anxiety, generalized F41.1 and Borderline personality disorder in adult F60.3 [facility] [address] 60015- 1181 Jun, Severe episode of recurrent major depressive disorder, without psychotic features F33.2 ; Anxiety, generalized F41.1 and Borderline personality disorder in adult F60.3 [facility] [address] 51316- 8680 Jun, Frequent falls R29.6 ; Bronchitis J40 ; BMI 40.0-44.9, adult Z68.41 and Coccygeal pain, acute M53.3 [place] [address] 41087- 4981 Jun, [facility] [id number] [place] [address] 67664 -1202 Jun, [facility] [address] 02359- 9030 Jun, [facility] [id number] [place] [address] 93094- 1349 Jun, Dental caries, unspecified K02.9 [facility] [id number] [place] [address] 90210- 5626 Jun, Acute non-recurrent maxillary sinusitis J01.00 and BMI 40.0- 44.9, adult Z68.41 [place] [address] [place] [address]- 4866 Jun, [facility] [id number] [address] 2546 Jun, Severe episode of recurrent major depressive disorder, without psychotic features F33.2 ; Anxiety, generalized F41.1 and Borderline personality disorder in adult F60.3 [facility] [id number] [address]- 2546 11 Jun, 2017 Closed nondisplaced fracture of third metatarsal bone of left foot with routine healing, subsequent encounter S92.335D ; Closed nondisplaced fracture of second metatarsal bone of left foot with routine healing, subsequent encounter S92.325D and Closed nondisplaced fracture of fourth metatarsal bone of left foot with routine healing, subsequent encounter S92.345D [facility] [address] [address]- 6263 Jun, Severe episode of recurrent major depressive disorder, without psychotic features F33.2 ; Anxiety, generalized F41.1 and Borderline personality disorder in adult F60.3 [facility] [address] [address]- 2656 Jun, [facility] [id number] [place] [address] 11149- 1014 Jun, [facility] [address] [address]- 4150 Jun, [facility] [id number] [place] [address] 17399 2541 Jun, [facility] [address] [address]- 6336 Jun, [facility] [id number] [place] [address] 53955- 8476 Jun, Anxiety F41.9 [facility] [id number] [place] [address] 58347- 7592 Jun, [facility] [id number] [place] [address] 82425- 3397 Jun, [facility] [id number] [place] [address] 74042- 0904 Jun, Type 2 diabetes mellitus with diabetic autonomic (poly) neuropathy E11.43 [facility] [id number] [place] [address] 22758- 3412 Jun, Severe episode of recurrent major depressive disorder, without psychotic features F33.2 ; Anxiety, generalized F41.1 and Borderline personality disorder in adult F60.3 [facility] [id number] [place] [address] 83100- 3145 Jun, Type 2 diabetes mellitus with diabetic autonomic (poly) neuropathy E11.43 and Chronic pain syndrome G89.4 [facility] [id number] [place] [address] 32216- 6439 20 May, 2017 Recent urinary tract infection Z87.440 ; Deliberate self- cutting Z72.89 ; Chest discomfort R07.89 ; BMI 40.0-44.9, adult Z68.41 and Worried well Z71.1 [facility] [id number] [place] [address] 06711- 6200 19 May, 2017 Severe episode of recurrent major depressive disorder, without psychotic features F33.2 ; Anxiety, generalized F41.1 and Borderline personality disorder in adult F60.3 [place] [id number] [place] [address] 15065- 4035 18 May, 2017 [facility] [id number] [place] [address] 43316- 4678 May, [facility] [id number] [place] [address] 50088- 4004 May, Type 2 diabetes mellitus with diabetic autonomic (poly) neuropathy E11.43 [facility] [address] [place] [address] 20933- 1080 May, Severe episode of recurrent major depressive disorder, without psychotic features F33.2 ; Anxiety, generalized F41.1 and Borderline personality disorder in adult F60.3 [facility] [id number] [place] [address] 70651- 6351 May, [place] [facility] [address] 85704- 6300 May, Type 2 diabetes mellitus with diabetic autonomic (poly) neuropathy E11.43 ; Multiple neurological symptoms R29.90 ; Dysuria R30.0 ; Tobacco abuse Z72.0 ; Right hip pain M25.551 ; Anxiety F41.9 ; Gastritis determined by endoscopy K29.70 ; Chronic pain syndrome G89.4 ; Acute non- recurrent maxillary sinusitis J01.00 ; Self mutilating behavior Z72.89 and BMI 40.0-44.9, adult Z68.41 [facility] [id number] [place] [address] 96502- 9469 May, Severe episode of recurrent major depressive disorder, without psychotic features F33.2 ; Anxiety, generalized F41.1 and Borderline personality disorder in adult F60.3 [facility] [id number] [place] [address] 55731- 0188 Apr, [facility] [facility] [id number] [place] [address] 96072- 9658 Apr, [facility] [id number] [place] [address] 23423 -6049 Apr, [facility] [id number] [place] [address] 33538 -2943 Apr, Aspiration pneumonia of right lower lobe, unspecified aspiration pneumonia type J69.0 [facility] [facility] [id number] [place] [address] 77323- 5967 Apr, Severe episode of recurrent major depressive disorder, without psychotic features F33.2 ; Anxiety, generalized F41.1 and Borderline personality disorder in adult F60.3 [place] [facility] [id number] [place] [address] 58914- 4229 Apr, [place] [address] 52208- 0932 Apr, Chronic pain syndrome G89.4 [facility] [id number] [place] [address] 59534- 3674 Apr, Severe episode of recurrent major depressive disorder, without psychotic features F33.2 ; Anxiety, generalized F41.1 and Borderline personality disorder in adult F60.3 [facility] [id number] [place] [address] 15460- 9918 16 Apr, 2017 Severe episode of recurrent major depressive disorder, without psychotic features F33.2 ; Anxiety, generalized F41.1 and Borderline personality disorder in adult F60.3 [facility] [id number] [place] [address] 53575- 2626 16 Apr, 2017 Closed nondisplaced fracture of third metatarsal bone of left foot with routine healing, subsequent encounter S92.335D ; Closed nondisplaced fracture of fourth metatarsal bone of left foot with routine healing, subsequent encounter S92.345D and Closed nondisplaced fracture of second metatarsal bone of left foot with routine healing, subsequent encounter S92.325D [place] [id number] [place] [address] 01036- 8742 Apr, [place] [address] 12938- 6568 Apr, [place] [id number] [place] [address] 34533- 5823 14 Apr, 2017 [facility] [place] [id number] [place] [address] 02270- 6809 Apr, Screening breast examination Z12.31 [place] [id number] [place] [address] 08883- 7140 Apr, [place] [address] 87002- 0854 Apr, Type 2 diabetes mellitus with diabetic autonomic (poly) neuropathy E11.43 [facility] [id number] [place] [address] 67953- 1168 Apr, Severe episode of recurrent major depressive disorder, without psychotic features F33.2 ; Anxiety, generalized F41.1 and Borderline personality disorder in adult F60.3 [facility] [address] 17208- 5019 Apr, Type 2 diabetes mellitus with diabetic autonomic (poly) neuropathy E11.43 ; Chronic pain syndrome G89.4 and Anxiety F41.9 [facility] [address] 24612 -6821 Apr, BMI 45.0-49.9, adult Z68.42 [facility] [address] 32674 -5588 Apr, Avulsion of toenail, initial encounter S91.209A and Acute non-recurrent maxillary sinusitis J01.00 [place] [address] 44284- 6542 Apr, [place] [address] 69655- 3887 Mar, [facility] [id number] [place] [address] 57010- 4121 Mar, Severe episode of recurrent major depressive disorder, without psychotic features F33.2 ; Anxiety, generalized F41.1 and Borderline personality disorder in adult F60.3 [place] [id number] [place] [address] 36411- 1719 Mar, [facility] [address] 66807- 6459 Mar, [facility] [id number] [place] [address] 79785- 1635 Mar, [place] [address] 07818- 1469 Mar, Seizure disorder G40.909 [facility] [id number] [place] [address] 63003- 4678 Mar, [place] [address] [address]- 1466 Mar, [facility] [id number] [place] [address] 49899 -9492 Mar, Left foot pain M79.672 ; Stage 3 chronic kidney disease N18.3 and Closed nondisplaced fracture of second metatarsal bone of left foot, initial encounter S92.325A [facility] [id number] [place] [address] 36194- 8191 Mar, Severe episode of recurrent major depressive disorder, without psychotic features F33.2 and Anxiety, generalized F41.1 [place] [id number] [place] [address] 21669- 2902 Mar, [facility] [id number] [place] [address] 30001- 2355 Mar, Closed nondisplaced fracture of second metatarsal bone of left foot, initial encounter S92.325A and Closed nondisplaced fracture of third metatarsal bone of left foot, initial encounter S92.335A [place] [facility] [id number] [place] [address] 77623- 9117 Mar, Seizure disorder G40.909 [facility] [id number] [place] [address] 87131- 0612 Mar, [facility] [id number] [place] [address] 78330- 4732 Mar, [facility] [id number] [place] [address] 20389- 4416 Mar, [facility] [id number] [place] [address] 67227- 0963 Mar, [facility] [id number] [place] [address] 62933- 9560 Mar, High risk sexual behavior Z72.51 [facility] [id number] [place] [address] 08447- 3234 Mar, Severe episode of recurrent major depressive disorder, without psychotic features F33.2 and Anxiety, generalized F41.1 [facility] [id number] [place] [address] 42753- 8336 Mar, Anxiety F41.9 and Type 2 diabetes mellitus with diabetic autonomic (poly)neuropathy E11.43 [place] [facility] [id number] [place] [address] 78264- 2425 Mar, Anxiety F41.9 [place] [facility] [id number] [place] [address] 74996- 4388 Mar, High risk sexual behavior Z72.51 [place] [facility] [address] 76959- 1075 Mar, Chronic pain syndrome G89.4 [place] [facility] [id number] [place] [address] 56315- 7193 Mar, Type 2 diabetes mellitus with diabetic autonomic (poly) neuropathy E11.43 [facility] [id number] [place] [address] 49558- 4381 Mar, [place] [id number] [place] [address] 53716- 7197 Mar, Closed nondisplaced fracture of second metatarsal bone of left foot, initial encounter S92.325A ; Chronic pain syndrome G89.4 ; Closed nondisplaced fracture of third metatarsal bone of left foot, initial encounter S92.335A ; Acute left ankle pain M25.572 and Type 2 diabetes mellitus with diabetic autonomic (poly)neuropathy E11.43 [place] [facility] [id number] [place] [address] 36505- 3070 Mar, [place] [id number] [place] [address] 07860- 2791 Mar, [place] [id number] [place] [address] 94847- 8789 Mar, Severe episode of recurrent major depressive disorder, without psychotic features F33.2 and Anxiety, generalized F41.1 [facility] [id number] [place] [address] 76547- 0303 27 Feb, 2017 [facility] [address] [id number] [place] [address] 55042- 0081 26 Feb, 2016 Renal insufficiency N28.9 [facility] [id number] [place] [address] 64257- 5051 26 Feb, 2017 [facility] [id number] [place] [address] 79119- 7499 26 Feb, 2017 Severe episode of recurrent major depressive disorder, without psychotic features F33.2 and Anxiety, generalized F41.1 [facility] [id number] [place] [address] 02564- 4736 25 Feb, 2017 [facility] [id number] [place] [address] 11588- 0971 22 Feb, 2017 [facility] [id number] [place] [address] 52979- 3055 20 Feb, 2017 Renal insufficiency N28.9 [facility] [id number] [place] [address] 01766- 4025 19 Feb, 2017 [facility] [id number] [place] [address] 50363 -0493 18 Feb, 2017 [facility] [id number] [place] [address] 38224- 2625 14 Feb, 2017 [facility] [id number] [place] [address] 53745- 3313 13 Feb, 2017 Severe episode of recurrent major depressive disorder, without psychotic features F33.2 and Anxiety, generalized F41.1 [facility] [id number] [place] [address] 37539- 6218 13 Feb, 2017 Closed nondisplaced fracture of second metatarsal bone of left foot, initial encounter S92.325A ; Chronic pain syndrome G89.4 ; Closed nondisplaced fracture of third metatarsal bone of left foot, initial encounter S92.335A ; Left hip pain M25.552 and Stage 3 chronic kidney disease N18.3 [facility] [id number] [place] [address] 28023- 2945 Feb, [facility] [id number] [place] [address] 00222- 6019 Feb, [facility] [id number] [place] [address] 35918- 4335 Feb, Closed nondisplaced fracture of second metatarsal bone of left foot, initial encounter S92.325A and Closed nondisplaced fracture of third metatarsal bone of left foot, initial encounter S92.335A [facility] [id number] [place] [address] 61608- 5485 Feb, [facility] [id number] [place] [address] 34597- 0806 Feb, Anxiety F41.9 [facility] [id number] [place] [address] 23355- 0369 Feb, [facility] [id number] [place] [address] 78619- 6356 Feb, Chronic pain syndrome G89.4 [facility] [id number] [place] [address] 29260- 9296 Feb, Left foot pain M79.672 ; Closed nondisplaced fracture of second metatarsal bone of left foot, initial encounter S92.325A ; Closed nondisplaced fracture of third metatarsal bone of left foot, initial encounter S92.335A and Oral infection K12.2 [facility] [address] [address] 0597 Feb, [facility] [id number] [place] [address] 01611- 0659 Jan, [facility] [id number] [place] [address] 43979- 7337 Jan, Type 2 diabetes mellitus with diabetic autonomic (poly) neuropathy E11.43 and Congestive heart failure, unspecified congestive heart failure chronicity, unspecified congestive heart failure type I50.9 [facility] [id number] [place] [address] 78978- 8347 Jan, Congestive heart failure, unspecified congestive heart failure chronicity, unspecified congestive heart failure type I50.9 and Stage 3 chronic kidney disease N18.3 [place] [address] 59231- 0348 Jan, Stage 3 chronic kidney disease N18.3 ; Edema of both legs R60.0 ; Chronic congestive heart failure, unspecified congestive heart failure type I50.9 ; Acute low back pain without sciatica, unspecified back pain laterality M54.5 ; Chronic nausea R11.0 and Primary insomnia F51.01 [place] [id number] [place] [address] 23717- 3311 Jan, Severe episode of recurrent major depressive disorder, without psychotic features F33.2 and Anxiety, generalized F41.1 [facility] [id number] [place] [address] 07628- 5046 Jan, [place] [address] 73997- 6472 Jan, [place] [id number] [place] [address] 69781- 1798 Jan, [place] [id number] [place] [address] 27609- 6589 Jan, [place] [id number] [place] [address] 04666- 2484 Jan, Anxiety F41.9 and Severe episode of recurrent major depressive disorder, without psychotic features F33.2 [place] [address] 60278- 9335 Jan, Type 2 diabetes mellitus with diabetic autonomic (poly) neuropathy E11.43 [place] [id number] [place] [address] 98555- 3892 Jan, Severe episode of recurrent major depressive disorder, without psychotic features F33.2 and Type 2 diabetes mellitus with diabetic autonomic (poly)neuropathy E11.43 [place] [address] 90211- 2074 Jan, [place] [address] 87089- 9193 Jan, [place] [address] 03945- 8891 Jan, Stage 3 chronic kidney disease N18.3 ; Seizure disorder G40.909 ; Edema of both legs R60.0 and Blister (nonthermal), right foot, initial encounter S90.821A [place] [address] 77453- 5861 Jan, Severe episode of recurrent major depressive disorder, without psychotic features F33.2 and Anxiety, generalized F41.1 [place] [address] 86897- 9374 Jan, Severe episode of recurrent major depressive disorder, without psychotic features F33.2 and Anxiety, generalized F41.1 [place] [address] 04905- 3877 Jan, [place] [address] 87953- 7881 Jan, Anxiety F41.9 and Primary insomnia F51.01 [place] [id number] [place] [address] 45053- 3558 Jan, Type 2 diabetes mellitus with diabetic autonomic (poly) neuropathy E11.43 ; prison 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 ; Stage 3 chronic kidney disease N18.3 ; Chronic pain syndrome G89.4 ; Swelling of mandible R22.0 and Seizure disorder G40.909 [place] [id number] [place] [address] 92789- 6836 Jan, [place] [address] 56954- 5030 Jan, [facility] [id number] [place] [address] 36746- 0409 Dec, Severe episode of recurrent major depressive disorder, without psychotic features F33.2 and Anxiety, generalized F41.1 [place] [id number] [place] [address] 34752- 6965 Dec, Diarrhea, unspecified type R19.7 ; Gastritis determined by endoscopy K29.70 ; Dysuria R30.0 ; Unspecified abdominal pain R10.9 ; Unspecified fall W19.XXXA and Need for assistance with personal care Z74.1 [place] [id number] [place] [address] 76447- 5763 Dec, Severe episode of recurrent major depressive disorder, without psychotic features F33.2 and Anxiety, generalized F41.1 [place] [id number] [place] [address] 20991- 8469 Dec, Diarrhea, unspecified type R19.7 ; Dysuria R30.0 ; Unspecified abdominal pain R10.9 ; Gastritis determined by endoscopy K29.70 ; Unspecified fall W19.XXXA and Need for assistance with personal

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
--- OUTSIDE RECORDS SUMMARY | 2017-12-04 19:42 | XMS REPORT ---
Author Author ABHINAV FLOYD Organization [facility] Address [address] [place] [address] Care Team Providers Care Pinion Staker Name Role Phone ABHINAV FLOYD Unavailable PROBLEMS Type Condition ICD9-CM Code UPW22-MR Code Onset Dates Condition Status SNOMED Code Problem Postural hypotension I95.1 Active 24059664 Problem Seizure disorder G40.909 Active 568054133 Problem Seasonal allergic rhinitis, unspecified allergic rhinitis trigger J30.2 Active 829297259 Problem Closed nondisplaced fracture of second metatarsal bone of left foot, initial encounter S92.325A Active 38331783 Problem Essential hypertension I10 Active 33282963 Problem Multiple neurological symptoms R29.90 Active 722517984 Problem Port catheter in place Z95.828 Active 487556730 Problem Stage 3 chronic kidney disease N18.3 Active 088556806 Problem Gastritis determined by endoscopy K29.70 Active 6820664 Problem Self-inflicted injury Z72.89 Active 377214230 Problem Borderline personality disorder in adult F60.3 Active 38582216 Problem Chronic congestive heart failure, unspecified congestive heart failure type I50.9 Active 82210058 Problem Chronic pain syndrome G89.4 Active 066985423 Problem Primary insomnia F51.01 Active 8875444 Problem Acquired hypothyroidism E03.9 Active 210230785 Problem Gastroparesis K31.84 Active 740412710 Problem Severe episode of recurrent major depressive disorder, without 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 Active 53907176 Problem Anxiety, generalized F41.1 Active 27390344 Problem 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 Active 170951047 Problem Type 2 diabetes mellitus with diabetic polyneuropathy E11.42 Active 30652492 Problem Tobacco abuse Z72.0 Active 330297046 Problem Noncompliance with diabetes treatment Z91.19 Active 6104005 ALLERGIES No Information ENCOUNTERS Encounter Location Date Diagnosis [facility] [address] [facility] [id number] [address] October, [facility] [address], [place] [address] October, [facility] [id number] [place] [address] 68177- 5526 October, [facility] [id number] [place] [address] 29482- 9192 October, [facility] [id number] [place] [address] 03869- 4370 Sep, Severe episode of recurrent major depressive disorder, without psychotic features F33.2 ; Anxiety, generalized F41.1 and Borderline personality disorder in adult F60.3 [facility] [id number] [place] [address] 23145- 0805 Sep, [facility] [id number] [place] [address] 63660- 5641 Sep, Throat pain R07.0 ; BMI 40.0-44.9, adult Z68.41 and Chronic pain syndrome G89.4 [facility] [id number] [place] [address] 18472- 1475 Sep, [facility] [id number] [place] [address] 62513- 6675 Sep, [facility] [address], [place] [address] 0087 Sep, [facility] [id number] [place] [address] 51831- 1770 Sep, Anxiety, generalized F41.1 [facility] [address], [place] [address] 0928 Sep, [facility] [id number] [place] [address] 76254- 1402 Sep, Stage 3 chronic kidney disease N18.3 [facility] [address], [place] [address] 6[address] Sep, Stage 3 chronic kidney disease N18.3 and Chronic pain syndrome G89.4 [facility] [id number] [place] [address] 01620- 4123 Sep, Severe episode of recurrent major depressive disorder, without psychotic features F33.2 ; Anxiety, generalized F41.1 and Borderline personality disorder in adult F60.3 [facility] [id number] [place] [address] 96672- 2105 Sep, Chronic pain syndrome G89.4 ; Anxiety, generalized F41.1 and BMI 45.0-49.9, adult Z68.42 [facility] [id number] [place] [address] 22122- 3416 Sep, [facility] [id number] [place] [address] 28409- 3799 Sep, [facility] [id number] [place] [address] 95921- 4455 Sep, Severe episode of recurrent major depressive disorder, without psychotic features F33.2 ; Anxiety, generalized F41.1 and Borderline personality disorder in adult F60.3 [facility] [id number] [place] [address] 93683- 7732 Sep, [facility] [id number] [place] [address] 74579 -4882 Aug, Dysuria R30.0 ; Type 2 diabetes mellitus with diabetic polyneuropathy E11.42 ; Oral abscess K12.2 and BMI 40.0-44.9, adult Z68.41 [facility] [id number] [place] [address] 73609- 3031 Aug, [facility] [id number] [place] [address] 37291- 5702 Aug, [facility] [id number] [place] [address] 35896- 9621 Aug, [facility] [id number] [place] [address] 03047- 7393 Aug, [facility] [address], [place] [address] 2701 27 Aug, 2017 Severe episode of recurrent major depressive disorder, without psychotic features F33.2 ; Anxiety, generalized F41.1 and Borderline personality disorder in adult F60.3 [facility] [address], [place] [address] 5680 22 Aug, 2017 [facility] [id number] [place] [address] 09292- 9524 20 Aug, 2017 [facility] [id number] [place] [address] 76429- 6798 19 Aug, 2017 Severe episode of recurrent major depressive disorder, without psychotic features F33.2 ; Anxiety, generalized F41.1 and Borderline personality disorder in adult F60.3 [facility] [address] [address] 17 Aug, 2017 [facility] [id number] [place] [address] 37502- 8072 15 Aug, 2017 [facility] [id number] [place] [address] 73790- 7250 14 Aug, 2017 [facility] [id number] [address] 14 Aug, 2017 Dysuria R30.0 ; Dental infection K04.7 ; Acute cystitis with hematuria N30.01 and BMI 45.0-49.9, adult Z68.42 [facility] [address], [place] [address] 5146 14 Aug, 2017 Severe episode of recurrent major depressive disorder, without psychotic features F33.2 ; Anxiety, generalized F41.1 and Borderline personality disorder in adult F60.3 [facility] [address] [place] [address] 89841- 8791 09 Aug, 2017 [facility] [address] [address] 2956 08 Aug, 2017 Closed nondisplaced fracture of second metatarsal bone of left foot, initial encounter S92.325A and Chronic pain syndrome G89.4 [facility] [id number] [place] [address] 65192- 1621 08 Aug, 2017 Type 2 diabetes mellitus with diabetic polyneuropathy E11.42 [facility] [id number] [place] [address] 76661- 8231 Aug, Severe episode of recurrent major depressive disorder, without psychotic features F33.2 ; Anxiety, generalized F41.1 and Borderline personality disorder in adult F60.3 [facility] [id number] [place] [address] 88540- 3623 Aug, [facility] [id number] [place] [address] 69871- 3788 Aug, [facility] [id number] [place] [address] 13298- 4312 Aug, [facility] [id number] [place] [address] 36767- 3914 Aug, [facility] [id number] [place] [address] 16024- 1840 Aug, [facility] [id number] [place] [address] 53253- 0012 Jul, [facility] [id number] [place] [address] 16851- 6023 Jul, [facility] [id number] [place] [address] 79896- 0840 Jul, Severe episode of recurrent major depressive disorder, without psychotic features F33.2 ; Anxiety, generalized F41.1 and Borderline personality disorder in adult F60.3 [facility] [id number] [place] [address] 21751- 8648 Jul, Type 2 diabetes mellitus with diabetic polyneuropathy E11.42 [facility] [id number] [place] [address] 71153- 9291 Jul, Closed nondisplaced fracture of second metatarsal bone of left foot, initial encounter S92.325A and Closed nondisplaced fracture of third metatarsal bone of left foot, initial encounter S92.335A [facility] [id number] [place] [address] 08701- 7769 Jul, [facility] [id number] [place] [address] 07123- 0948 20 Jul, 2017 Closed nondisplaced fracture of second metatarsal bone of left foot, initial encounter S92.325A ; Acute left ankle pain M25.572 ; Acute midline low back pain without sciatica M54.5 and Seasonal allergic rhinitis, unspecified allergic rhinitis trigger J30.2 [facility] [id number] [place] [address] 99253- 4334 Jul, [facility] [id number] [place] [address] 82771- 3254 Jul, [facility] [id number] [place] [address] 04794- 5290 15 Jul, 2017 [facility] [id number] [place] [address] 09045- 5147 15 Jul, 2017 Frequent falls R29.6 [facility] [id number] [place] [address] 82591- 5901 14 Jul, 2017 Frequent falls R29.6 [facility] [id number] [place] [address] 77986- 3128 07 Jul, 2017 Severe episode of recurrent major depressive disorder, without psychotic features F33.2 ; Anxiety, generalized F41.1 and Borderline personality disorder in adult F60.3 [facility] [id number] [place] [address] 57232- 2597 07 Jul, 2017 Chronic pain syndrome G89.4 [facility] [id number] [place] [address] 17694- 2960 07 Jul, 2017 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 [place] [id number] [place] [address] 93173- 8572 Jul, [facility] [facility] [address] 88957- 7325 Jul, Type 2 diabetes mellitus with diabetic polyneuropathy E11.42 [place] [facility] [address] 89275- 3775 Jun, 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 and Thrush B37.0 [place] [address] 18739- 3719 Jun, Severe episode of recurrent major depressive disorder, without psychotic features F33.2 ; Anxiety, generalized F41.1 and Borderline personality disorder in adult F60.3 [place] [address] 54527- 1724 Jun, Severe episode of recurrent major depressive disorder, without psychotic features F33.2 ; Anxiety, generalized F41.1 and Borderline personality disorder in adult F60.3 [place] [address] 67919- 9363 Jun, Frequent falls R29.6 ; Bronchitis J40 ; BMI 40.0-44.9, adult Z68.41 and Coccygeal pain, acute M53.3 [place] [id number] [place] [address] 73852- 0200 Jun, [facility] [id number] [place] [address] 79364 -6565 Jun, [facility] [address] 94683- 5047 Jun, [facility] [address] 53099- 1185 Jun, Dental caries, unspecified K02.9 [facility] [id number] [place] [address] 87297- 3004 Jun, Acute non-recurrent maxillary sinusitis J01.00 and BMI 40.0- 44.9, adult Z68.41 [facility] [address] [place] [address] 41268- 2036 Jun, [facility] [id number] [place] [address] 50539- 2720 Jun, Severe episode of recurrent major depressive disorder, without psychotic features F33.2 ; Anxiety, generalized F41.1 and Borderline personality disorder in adult F60.3 [facility] [id number] [place] [address] 77629- 3312 11 Jun, 2017 Closed nondisplaced fracture of third metatarsal bone of left foot with routine healing, subsequent encounter S92.335D ; Closed nondisplaced fracture of second metatarsal bone of left foot with routine healing, subsequent encounter S92.325D and Closed nondisplaced fracture of fourth metatarsal bone of left foot with routine healing, subsequent encounter S92.345D [facility] [id number] [place] [address] 63147- 2910 Jun, Severe episode of recurrent major depressive disorder, without psychotic features F33.2 ; Anxiety, generalized F41.1 and Borderline personality disorder in adult F60.3 [place] [address] [place] [address] 97686- 5766 Jun, [place] [facility] [address], [place] [address]- 0015 Jun, [place] [address] [place] [address] 49852- 9511 Jun, [facility] [id number] [place] [address] 73919- 1957 Jun, [facility] [id number] [place] [address] 10443- 6233 Jun, [place] [address] [place] [address] 10070- 7813 Jun, Anxiety F41.9 [place] [id number] [address]- 3962 Jun, [place] [facility] [address] [place] [address] 56260- 1833 Jun, [place] [address] [place] [address] 67988- 0401 Jun, Type 2 diabetes mellitus with diabetic autonomic (poly) neuropathy E11.43 [facility] [address] [place] [address] 42745- 6661 Jun, Severe episode of recurrent major depressive disorder, without psychotic features F33.2 ; Anxiety, generalized F41.1 and Borderline personality disorder in adult F60.3 [place] [id number] [place] [address] 32901- 7393 Jun, Type 2 diabetes mellitus with diabetic autonomic (poly) neuropathy E11.43 and Chronic pain syndrome G89.4 [place] [id number] [place] [address] 06124- 5810 May, Recent urinary tract infection Z87.440 ; Deliberate self- cutting Z72.89 ; Chest discomfort R07.89 ; BMI 40.0-44.9, adult Z68.41 and Worried well Z71.1 [address], [place] [address]- 1327 May, Severe episode of recurrent major depressive disorder, without psychotic features F33.2 ; Anxiety, generalized F41.1 and Borderline personality disorder in adult F60.3 [facility] [address], [place] [address]- 3705 18 May, 2017 [place] [address] [place] [address] 18184- 3328 May, [address] [place] [address] 58073- 1891 May, Severe episode of recurrent major depressive disorder, without psychotic features F33.2 ; Anxiety, generalized F41.1 and Borderline personality disorder in adult F60.3 [place] [id number] [place] [address] 83578- 0594 May, Type 2 diabetes mellitus with diabetic autonomic (poly) neuropathy E11.43 [place] [id number] [place] [address] 67067- 0915 May, [place] [id number] [place] [address] 45494- 0265 May, Type 2 diabetes mellitus with diabetic autonomic (poly) neuropathy E11.43 ; Multiple neurological symptoms R29.90 ; Dysuria R30.0 ; Tobacco abuse Z72.0 ; Right hip pain M25.551 ; Anxiety F41.9 ; Gastritis determined by endoscopy K29.70 ; Chronic pain syndrome G89.4 ; Acute non- recurrent maxillary sinusitis J01.00 ; Self mutilating behavior Z72.89 and BMI 40.0-44.9, adult Z68.41 [place] [facility] [address] 45344- 8126 May, Severe episode of recurrent major depressive disorder, without psychotic features F33.2 ; Anxiety, generalized F41.1 and Borderline personality disorder in adult F60.3 [place] [address] 34608- 4675 Apr, [place] [id number] [place] [address] 36406- 0195 Apr, [facility] [id number] [place] [address] 80522 -2118 Apr, [facility] [id number] [place] [address] 76917 -9762 Apr, Aspiration pneumonia of right lower lobe, unspecified aspiration pneumonia type J69.0 [place] [id number] [place] [address] 43009- 3568 Apr, Severe episode of recurrent major depressive disorder, without psychotic features F33.2 ; Anxiety, generalized F41.1 and Borderline personality disorder in adult F60.3 [place] [address] 76880- 4123 Apr, [place] [address] [place] [address] 67076- 0815 Apr, Chronic pain syndrome G89.4 [facility] [address] [place] [address] 84306- 7824 21 Apr, 2017 Severe episode of recurrent major depressive disorder, without psychotic features F33.2 ; Anxiety, generalized F41.1 and Borderline personality disorder in adult F60.3 [place] [id number] [place] [address] 95056- 2214 16 Apr, 2017 Severe episode of recurrent major depressive disorder, without psychotic features F33.2 ; Anxiety, generalized F41.1 and Borderline personality disorder in adult F60.3 [place] [address] [place] [address] 19884- 1166 16 Apr, 2017 Closed nondisplaced fracture of third metatarsal bone of left foot with routine healing, subsequent encounter S92.335D ; Closed nondisplaced fracture of fourth metatarsal bone of left foot with routine healing, subsequent encounter S92.345D and Closed nondisplaced fracture of second metatarsal bone of left foot with routine healing, subsequent encounter S92.325D [place] [address] [place] [address] 72239- 9449 16 Apr, 2017 [place] [address] [place] [address] 57123- 0606 15 Apr, 2017 [place] [id number] [place] [address] 16726- 4029 14 Apr, 2017 [place] [id number] [place] [address] 48861- 9025 13 Apr, 2017 Screening breast examination Z12.31 [place] [id number] [place] [address] 00936- 8630 09 Apr, 2017 [place] [id number] [place] [address] 91538- 4665 Apr, Type 2 diabetes mellitus with diabetic autonomic (poly) neuropathy E11.43 [facility] [address] [place] [address] 15580- 5090 Apr, Severe episode of recurrent major depressive disorder, without psychotic features F33.2 ; Anxiety, generalized F41.1 and Borderline personality disorder in adult F60.3 [facility] [id number] [place] [address] 51024- 0909 Apr, Type 2 diabetes mellitus with diabetic autonomic (poly) neuropathy E11.43 ; Chronic pain syndrome G89.4 and Anxiety F41.9 [facility] [id number] [place] [address] 58229 -8560 Apr, BMI 45.0-49.9, adult Z68.42 [facility] [id number] [place] [address] 42001 -2302 Apr, Avulsion of toenail, initial encounter S91.209A and Acute non-recurrent maxillary sinusitis J01.00 [facility] [id number] [place] [address] 37105- 9059 Apr, [facility] [id number] [place] [address] 27836- 3956 Mar, [facility] [id number] [place] [address] 67065- 4684 Mar, Severe episode of recurrent major depressive disorder, without psychotic features F33.2 ; Anxiety, generalized F41.1 and Borderline personality disorder in adult F60.3 [facility] [id number] [place] [address] 40217- 0784 Mar, [facility] [id number] [place] [address] 13618- 3076 Mar, [facility] [id number] [place] [address] 16568- 3573 Mar, [facility] [id number] [place] [address] 08113- 8483 Mar, Seizure disorder G40.909 [facility] [address] [place] [address] 95779- 5625 Mar, [facility] [id number] [place] [address] 85585- 3014 Mar, [facility] [id number] [place] [address] 58388 -7930 Mar, Left foot pain M79.672 ; Stage 3 chronic kidney disease N18.3 and Closed nondisplaced fracture of second metatarsal bone of left foot, initial encounter S92.325A [facility] [id number] [place] [address] 73483- 5081 Mar, Severe episode of recurrent major depressive disorder, without psychotic features F33.2 and Anxiety, generalized F41.1 [place] [id number] [place] [address] 01034- 0141 Mar, [facility] [id number] [place] [address] 78735- 2114 Mar, Closed nondisplaced fracture of second metatarsal bone of left foot, initial encounter S92.325A and Closed nondisplaced fracture of third metatarsal bone of left foot, initial encounter S92.335A [facility] [id number] [place] [address] 47427- 9347 Mar, Seizure disorder G40.909 [facility] [id number] [place] [address] 52704- 5117 Mar, [facility] [id number] [place] [address] 76370- 8902 Mar, [facility] [id number] [place] [address] 65915- 2920 Mar, [facility] [id number] [place] [address] 78423- 1971 Mar, [facility] [id number] [place] [address] 13240- 7888 Mar, High risk sexual behavior Z72.51 [facility] [id number] [place] [address] [phone] Mar, Severe episode of recurrent major depressive disorder, without psychotic features F33.2 and Anxiety, generalized F41.1 [facility] [id number] [place] [address] [phone] Mar, Anxiety F41.9 and Type 2 diabetes mellitus with diabetic autonomic (poly)neuropathy E11.43 [facility] [id number] [place] [address] [phone] Mar, Anxiety F41.9 [facility] [facility] [id number] [place] [address] 36634- 6451 Mar, High risk sexual behavior Z72.51 [place] [address] [place] [id number] [place] [address] 49350- 1476 Mar, Chronic pain syndrome G89.4 [place] [facility] [id number] [place] [address] 11362- 9168 Mar, Type 2 diabetes mellitus with diabetic autonomic (poly) neuropathy E11.43 [place] [address] [id number] [place] [address] 41818- 8075 Mar, [facility] [address] [address] [id number] [place] [address] 31273- 0925 Mar, Closed nondisplaced fracture of second metatarsal bone of left foot, initial encounter S92.325A ; Chronic pain syndrome G89.4 ; Closed nondisplaced fracture of third metatarsal bone of left foot, initial encounter S92.335A ; Acute left ankle pain M25.572 and Type 2 diabetes mellitus with diabetic autonomic (poly)neuropathy E11.43 [facility] [id number] [place] [address] 33093- 5591 Mar, [place] [id number] [place] [address] 57145- 6776 Mar, [facility] [id number] [place] [address] 41093- 9130 Mar, Severe episode of recurrent major depressive disorder, without psychotic features F33.2 and Anxiety, generalized F41.1 [facility] [id number] [place] [address] 24193- 4145 27 Feb, 2017 [facility] [id number] [place] [address] 73820- 1644 26 Feb, 2017 Renal insufficiency N28.9 [facility] [id number] [place] [address] 45417- 0016 Feb, [facility] [id number] [place] [address] 02782- 5801 26 Feb, 2017 Severe episode of recurrent major depressive disorder, without psychotic features F33.2 and Anxiety, generalized F41.1 [facility] [id number] [place] [address] 73336- 8503 25 Feb, 2017 [facility] [id number] [place] [address] 97457- 4822 22 Feb, 2017 [facility] [id number] [place] [address] 78416- 1586 20 Feb, 2017 Renal insufficiency N28.9 [facility] [id number] [place] [address] 05243- 0046 19 Feb, 2017 [facility] [id number] [place] [address] 83272 -2749 18 Feb, 2017 [facility] [id number] [place] [address] 89381- 7475 14 Feb, 2017 [facility] [id number] [place] [address] 55723- 2754 13 Feb, 2017 Severe episode of recurrent major depressive disorder, without psychotic features F33.2 and Anxiety, generalized F41.1 [facility] [id number] [place] [address] 18099- 9395 13 Feb, 2017 Closed nondisplaced fracture of second metatarsal bone of left foot, initial encounter S92.325A ; Chronic pain syndrome G89.4 ; Closed nondisplaced fracture of third metatarsal bone of left foot, initial encounter S92.335A ; Left hip pain M25.552 and Stage 3 chronic kidney disease N18.3 [facility] [address] [id number] [address] Feb, [facility] [id number] [place] [address] 95665- 6003 Feb, [facility] [id number] [place] [address] 98846- 3446 Feb, Closed nondisplaced fracture of second metatarsal bone of left foot, initial encounter S92.325A and Closed nondisplaced fracture of third metatarsal bone of left foot, initial encounter S92.335A [place] [id number] [place] [address] 34163- 7853 Feb, [facility] [id number] [place] [address] 80164- 3075 Feb, Anxiety F41.9 [facility] [id number] [place] [address] 43623- 7089 Feb, [facility] [id number] [place] [address] 99420- 5641 Feb, Chronic pain syndrome G89.4 [facility] [id number] [place] [address] 41350- 0106 Feb, Left foot pain M79.672 ; Closed nondisplaced fracture of second metatarsal bone of left foot, initial encounter S92.325A ; Closed nondisplaced fracture of third metatarsal bone of left foot, initial encounter S92.335A and Oral infection K12.2 [facility] [address] [place] [id number] [place] [address] 69140- 9605 Feb, [facility] [id number] [place] [address] 87986- 7834 Jan, [facility] [id number] [place] [address] 24290- 9065 Jan, Type 2 diabetes mellitus with diabetic autonomic (poly) neuropathy E11.43 and Congestive heart failure, unspecified congestive heart failure chronicity, unspecified congestive heart failure type I50.9 [facility] [id number] [place] [address] 88150- 2853 Jan, Congestive heart failure, unspecified congestive heart failure chronicity, unspecified congestive heart failure type I50.9 and Stage 3 chronic kidney disease N18.3 [place] [id number] [place] [address] 28082- 9073 Jan, Stage 3 chronic kidney disease N18.3 ; Edema of both legs R60.0 ; Chronic congestive heart failure, unspecified congestive heart failure type I50.9 ; Acute low back pain without sciatica, unspecified back pain laterality M54.5 ; Chronic nausea R11.0 and Primary insomnia F51.01 [place] [id number] [place] [address] 78052- 6112 Jan, Severe episode of recurrent major depressive disorder, without psychotic features F33.2 and Anxiety, generalized F41.1 [place] [id number] [place] [address] 14671- 5031 Jan, [place] [place] [id number] [place] [address] 13558- 4625 Jan, [place] [id number] [place] [address] 76816- 6860 Jan, [place] [id number] [place] [address] 63071- 9651 Jan, [facility] [id number] [place] [address] 14930- 6525 Jan, Anxiety F41.9 and Severe episode of recurrent major depressive disorder, without psychotic features F33.2 [facility] [id number] [place] [address] 68403- 1132 Jan, Type 2 diabetes mellitus with diabetic autonomic (poly) neuropathy E11.43 [place] [place] [address] [id number] [place] [address] 43005- 4123 Jan, Severe episode of recurrent major depressive disorder, without psychotic features F33.2 and Type 2 diabetes mellitus with diabetic autonomic (poly)neuropathy E11.43 [facility] [place] [id number] [place] [address] 29011- 8394 Jan, [facility] [facility] [address] 14267- 1299 Jan, [place] [id number] [place] [address] 00991- 0996 Jan, Stage 3 chronic kidney disease N18.3 ; Seizure disorder G40.909 ; Edema of both legs R60.0 and Blister (nonthermal), right foot, initial encounter S90.821A [place] [id number] [place] [address] 45830- 2015 Jan, Severe episode of recurrent major depressive disorder, without psychotic features F33.2 and Anxiety, generalized F41.1 [place] [id number] [place] [address] 72771- 9137 Jan, Severe episode of recurrent major depressive disorder, without psychotic features F33.2 and Anxiety, generalized F41.1 [place] [place] [id number] [place] [address] 75235- 4388 Jan, [place] [id number] [place] [address] 46197- 3504 Jan, Anxiety F41.9 and Primary insomnia F51.01 [place] [id number] [place] [address] 17499- 1672 Jan, Type 2 diabetes mellitus with diabetic autonomic (poly) neuropathy E11.43 ; 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 ; Stage 3 chronic kidney disease N18.3 ; Chronic pain syndrome G89.4 ; Swelling of mandible R22.0 and Seizure disorder G40.909 [place] [address] [place] [address]- 9715 Jan, [place] [id number] [place] [address] 82406- 8320 Jan, [place] [id number] [place] [address] 49766- 5793 Dec, Severe episode of recurrent major depressive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
--- OUTSIDE RECORDS SUMMARY | 2017-12-04 19:43 | XMS REPORT ---
Author Author MIRZA MARTINO Organization [facility] Address [address] [place] [address] Care Team Providers Care Lift Operator Name Role Phone HAIMLindsey MIRZA Unavailable PROBLEMS Type Condition ICD9-CM Code YDD90-PS Code Onset Dates Condition Status SNOMED Code Problem Postural hypotension I95.1 Active 11285194 Problem Seizure disorder G40.909 Active 788285816 Problem Seasonal allergic rhinitis, unspecified allergic rhinitis trigger J30.2 Active 119883090 Problem Closed nondisplaced fracture of second metatarsal bone of left foot, initial encounter S92.325A Active 51476110 Problem Essential hypertension I10 Active 57942512 Problem Multiple neurological symptoms R29.90 Active 731096156 Problem Port catheter in place Z95.828 Active 799150473 Problem Stage 3 chronic kidney disease N18.3 Active 727125056 Problem Gastritis determined by endoscopy K29.70 Active 6953990 Problem Self-inflicted injury Z72.89 Active 535754696 Problem Borderline personality disorder in adult F60.3 Active 61669659 Problem Chronic congestive heart failure, unspecified congestive heart failure type I50.9 Active 12225346 Problem Chronic pain syndrome G89.4 Active 453204668 Problem Primary insomnia F51.01 Active 2397347 Problem Acquired hypothyroidism E03.9 Active 313958790 Problem Gastroparesis K31.84 Active 232813909 Problem Severe episode of recurrent major depressive disorder, without psychotic features F33.2 Active 50280294 Problem Anxiety, generalized F41.1 Active 49119529 Problem 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 Active 242004017 Problem Type 2 diabetes mellitus with diabetic polyneuropathy E11.42 Active 23538300 Problem Tobacco abuse Z72.0 Active 195062197 Problem Noncompliance with diabetes treatment Z91.19 Active 4629954 ALLERGIES No Information ENCOUNTERS Encounter Location Date Diagnosis [facility] [id number] [address] October, [facility] [address] [address] October, [facility] [id number] [place] [address] 195092- 1279 October, [facility] [id number] [id number] Sep, [facility] [id number] [place] [address] 95932- 8335 Sep, [facility] [id number] [place] [address] 74531- 6772 Sep, [facility] [id number] [place] [address] 36240- 3779 Sep, Throat pain R07.0 and BMI 40.0-44.9, adult Z68.41 [facility] [id number] [place] [address] 80927- 4871 Sep, [facility] [id number] [place] [address] 69039- 7052 Sep, [facility] [id number] [place] [address] 67889- 0743 Sep, [facility] [id number] [place] [address] 83488- 7453 Sep, Anxiety, generalized F41.1 [facility] [id number] [place] [address] 58877- 9483 Sep, [facility] [id number] [place] [address] 23845- 4059 Sep, Stage 3 chronic kidney disease N18.3 [facility] [id number] [place] [address] 20607- 1955 Sep, Stage 3 chronic kidney disease N18.3 and Chronic pain syndrome G89.4 [facility] [id number] [place] [address] 12862- 8338 Sep, Severe episode of recurrent major depressive disorder, without psychotic features F33.2 ; Anxiety, generalized F41.1 and Borderline personality disorder in adult F60.3 [facility] [id number] [place] [address] 59078- 8298 Sep, Chronic pain syndrome G89.4 ; Anxiety, generalized F41.1 and BMI 45.0-49.9, adult Z68.42 [facility] [id number] [place] [address] 08249- 0853 Sep, [facility] [id number] [place] [address] 65057- 0558 Sep, [facility] [id number] [place] [address] 23724- 3922 Sep, Severe episode of recurrent major depressive disorder, without psychotic features F33.2 ; Anxiety, generalized F41.1 and Borderline personality disorder in adult F60.3 [facility] [id number] [place] [address] 79136- 6422 Sep, [facility] [id number] [place] [address] 27103 -6202 Aug, Dysuria R30.0 ; Type 2 diabetes mellitus with diabetic polyneuropathy E11.42 ; Oral abscess K12.2 and BMI 40.0-44.9, adult Z68.41 [facility] [id number] [place] [address] 92053- 6076 Aug, [facility] [id number] [place] [address] 74997- 7254 Aug, [facility] [id number] [place] [address] 47168- 3150 Aug, [facility] [id number] [place] [address] 22944- 9757 Aug, [facility] [id number] [place] [address] 64108- 4444 Aug, Severe episode of recurrent major depressive disorder, without psychotic features F33.2 ; Anxiety, generalized F41.1 and Borderline personality disorder in adult F60.3 [facility] [id number] [place] [address] 23153- 7971 22 Aug, 2017 [facility] [id number] [place] [address] 71650- 4985 20 Aug, 2017 [facility] [id number] [place] [address] 07773- 4417 19 Aug, 2017 Severe episode of recurrent major depressive disorder, without psychotic features F33.2 ; Anxiety, generalized F41.1 and Borderline personality disorder in adult F60.3 [facility] [id number] [place] [address] 86594 -5885 17 Aug, 2017 [facility] [id number] [place] [address] 93268- 3020 15 Aug, 2017 [facility] [id number] [place] [address] 40156- 0585 14 Aug, 2017 [facility] [id number] [place] [address] 83958 -8635 14 Aug, 2017 Dysuria R30.0 ; Dental infection K04.7 ; Acute cystitis with hematuria N30.01 and BMI 45.0-49.9, adult Z68.42 [facility] [id number] [place] [address] 07225- 6133 14 Aug, 2017 Severe episode of recurrent major depressive disorder, without psychotic features F33.2 ; Anxiety, generalized F41.1 and Borderline personality disorder in adult F60.3 [facility] [id number] [place] [address] 66181- 7767 09 Aug, 2017 [facility] [id number] [place] [address] 29738- 0395 08 Aug, 2017 Closed nondisplaced fracture of second metatarsal bone of left foot, initial encounter S92.325A and Chronic pain syndrome G89.4 [facility] [id number] [address] 08 Aug, 2017 Type 2 diabetes mellitus with diabetic polyneuropathy E11.42 [facility] [address] [address] Aug, Severe episode of recurrent major depressive disorder, without psychotic features F33.2 ; Anxiety, generalized F41.1 and Borderline personality disorder in adult F60.3 [facility] [address] [address] 07 Aug, 2017 [facility] [address] [address] Aug, [facility] [address] [address] 8[address] Aug, [facility] [address] [address] 9324 Aug, [facility] [address] [address] 1204 Aug, [facility] [address] [address] 3317 Jul, [facility] [address] [address] 3147 Jul, [facility] [address] [address] Jul, Severe episode of recurrent major depressive disorder, without psychotic features F33.2 ; Anxiety, generalized F41.1 and Borderline personality disorder in adult F60.3 [facility] [id number] [address] 7[address] Jul, Type 2 diabetes mellitus with diabetic polyneuropathy E11.42 [facility] [id number] [address] 7959 Jul, Closed nondisplaced fracture of second metatarsal bone of left foot, initial encounter S92.325A and Closed nondisplaced fracture of third metatarsal bone of left foot, initial encounter S92.335A [facility] [id number] [place] [address] 95459- 5825 Jul, [facility] [id number] [place] [address] 54889- 1905 20 Jul, 2017 Closed nondisplaced fracture of second metatarsal bone of left foot, initial encounter S92.325A ; Acute left ankle pain M25.572 ; Acute midline low back pain without sciatica M54.5 and Seasonal allergic rhinitis, unspecified allergic rhinitis trigger J30.2 [facility] [id number] [place] [address] 65929- 5077 Jul, [facility] [id number] [place] [address] 00539- 9467 19 Jul, 2017 [facility] [id number] [place] [address] 25605- 7086 15 Jul, 2017 [facility] [id number] [place] [address] 83194- 8304 15 Jul, 2017 Frequent falls R29.6 [facility] [id number] [place] [address] 39715- 6497 14 Jul, 2017 Frequent falls R29.6 [facility] [id number] [place] [address] 34501- 1499 07 Jul, 2017 Severe episode of recurrent major depressive disorder, without psychotic features F33.2 ; Anxiety, generalized F41.1 and Borderline personality disorder in adult F60.3 [facility] [id number] [place] [address] 15616- 5062 07 Jul, 2017 Chronic pain syndrome G89.4 [facility] [id number] [place] [address] 32003- 9751 07 Jul, 2017 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 [facility] [id number] [place] [address] 96509- 0011 05 Jul, 2017 [facility] [id number] [place] [address] 14225- 9402 Jul, Type 2 diabetes mellitus with diabetic polyneuropathy E11.42 [facility] [address] 26128- 2749 Jun, 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 and Thrush B37.0 [facility] [address] 42627- 7495 Jun, Severe episode of recurrent major depressive disorder, without psychotic features F33.2 ; Anxiety, generalized F41.1 and Borderline personality disorder in adult F60.3 [facility] [address] 19383- 7870 Jun, Severe episode of recurrent major depressive disorder, without psychotic features F33.2 ; Anxiety, generalized F41.1 and Borderline personality disorder in adult F60.3 [facility] [address] 42340- 4267 Jun, Frequent falls R29.6 ; Bronchitis J40 ; BMI 40.0-44.9, adult Z68.41 and Coccygeal pain, acute M53.3 [facility] [address] 93196- 4133 Jun, [facility] [id number] [place] [address] 49844 -0147 Jun, [facility] [address] 29870- 1424 Jun, [facility] [id number] [place] [address] 35527- 6343 Jun, Dental caries, unspecified K02.9 [facility] [id number] [place] [address] 31904- 9006 Jun, Acute non-recurrent maxillary sinusitis J01.00 and BMI 40.0- 44.9, adult Z68.41 [facility] [address] [place] [address]- 6[address] Jun, [facility] [id number] [address] 2546 Jun, Severe episode of recurrent major depressive disorder, without psychotic features F33.2 ; Anxiety, generalized F41.1 and Borderline personality disorder in adult F60.3 [facility] [id number] [address] 11 Jun, 2017 Closed nondisplaced fracture of third metatarsal bone of left foot with routine healing, subsequent encounter S92.335D ; Closed nondisplaced fracture of second metatarsal bone of left foot with routine healing, subsequent encounter S92.325D and Closed nondisplaced fracture of fourth metatarsal bone of left foot with routine healing, subsequent encounter S92.345D [facility] [address] [address] 6020 Jun, Severe episode of recurrent major depressive disorder, without psychotic features F33.2 ; Anxiety, generalized F41.1 and Borderline personality disorder in adult F60.3 [facility] [address] [address]- 2286 Jun, [facility] [id number] [place] [address] 17378- 5161 Jun, [facility] [address] [address]- 7669 Jun, [facility] [id number] [place] [address] 35960 2540 Jun, [facility] [address] [address]- 9026 Jun, [facility] [id number] [place] [address] 06524- 3046 Jun, Anxiety F41.9 [facility] [id number] [place] [address] 32806- 5378 Jun, [facility] [id number] [place] [address] 06336- 5937 Jun, [facility] [id number] [place] [address] 54366- 3009 Jun, Type 2 diabetes mellitus with diabetic autonomic (poly) neuropathy E11.43 [facility] [id number] [place] [address] 97925- 9170 Jun, Severe episode of recurrent major depressive disorder, without psychotic features F33.2 ; Anxiety, generalized F41.1 and Borderline personality disorder in adult F60.3 [facility] [id number] [place] [address] 90790- 9186 Jun, Type 2 diabetes mellitus with diabetic autonomic (poly) neuropathy E11.43 and Chronic pain syndrome G89.4 [facility] [id number] [place] [address] 67898- 9982 20 May, 2017 Recent urinary tract infection Z87.440 ; Deliberate self- cutting Z72.89 ; Chest discomfort R07.89 ; BMI 40.0-44.9, adult Z68.41 and Worried well Z71.1 [facility] [id number] [place] [address] 95901- 6028 19 May, 2017 Severe episode of recurrent major depressive disorder, without psychotic features F33.2 ; Anxiety, generalized F41.1 and Borderline personality disorder in adult F60.3 [facility] [id number] [place] [address] 36329- 8731 18 May, 2017 [facility] [id number] [place] [address] 64896- 0474 May, [facility] [id number] [place] [address] 50366- 6595 May, Type 2 diabetes mellitus with diabetic autonomic (poly) neuropathy E11.43 [facility] [id number] [place] [address] 03215- 9636 May, Severe episode of recurrent major depressive disorder, without psychotic features F33.2 ; Anxiety, generalized F41.1 and Borderline personality disorder in adult F60.3 [facility] [id number] [place] [address] 65390- 3119 May, [facility] [address] 63012- 3871 May, Type 2 diabetes mellitus with diabetic autonomic (poly) neuropathy E11.43 ; Multiple neurological symptoms R29.90 ; Dysuria R30.0 ; Tobacco abuse Z72.0 ; Right hip pain M25.551 ; Anxiety F41.9 ; Gastritis determined by endoscopy K29.70 ; Chronic pain syndrome G89.4 ; Acute non- recurrent maxillary sinusitis J01.00 ; Self mutilating behavior Z72.89 and BMI 40.0-44.9, adult Z68.41 [facility] [id number] [place] [address] 60097- 2577 May, Severe episode of recurrent major depressive disorder, without psychotic features F33.2 ; Anxiety, generalized F41.1 and Borderline personality disorder in adult F60.3 [facility] [id number] [place] [address] 42113- 3038 Apr, [facility] [id number] [place] [address] 06655- 0744 Apr, [facility] [id number] [place] [address] 73415 -4729 Apr, [facility] [id number] [place] [address] 51619 -3734 Apr, Aspiration pneumonia of right lower lobe, unspecified aspiration pneumonia type J69.0 [facility] [id number] [place] [address] 93002- 5142 Apr, Severe episode of recurrent major depressive disorder, without psychotic features F33.2 ; Anxiety, generalized F41.1 and Borderline personality disorder in adult F60.3 [facility] [id number] [place] [address] 70135- 7909 Apr, [facility] [address] 15722- 6799 Apr, Chronic pain syndrome G89.4 [facility] [id number] [place] [address] 87917- 9743 Apr, Severe episode of recurrent major depressive disorder, without psychotic features F33.2 ; Anxiety, generalized F41.1 and Borderline personality disorder in adult F60.3 [facility] [id number] [place] [address] 95207- 3647 16 Apr, 2017 Severe episode of recurrent major depressive disorder, without psychotic features F33.2 ; Anxiety, generalized F41.1 and Borderline personality disorder in adult F60.3 [facility] [id number] [place] [address] 50538- 5885 16 Apr, 2017 Closed nondisplaced fracture of third metatarsal bone of left foot with routine healing, subsequent encounter S92.335D ; Closed nondisplaced fracture of fourth metatarsal bone of left foot with routine healing, subsequent encounter S92.345D and Closed nondisplaced fracture of second metatarsal bone of left foot with routine healing, subsequent encounter S92.325D [facility] [id number] [place] [address] 89222- 1349 Apr, [facility] [address] 97833- 0752 Apr, [facility] [id number] [place] [address] 08179- 9966 14 Apr, 2017 [facility] [id number] [place] [address] 49652- 7846 Apr, Screening breast examination Z12.31 [facility] [id number] [place] [address] 52777- 3668 Apr, [facility] [address] 05753- 1644 Apr, Type 2 diabetes mellitus with diabetic autonomic (poly) neuropathy E11.43 [facility] [id number] [place] [address] 37575- 1266 Apr, Severe episode of recurrent major depressive disorder, without psychotic features F33.2 ; Anxiety, generalized F41.1 and Borderline personality disorder in adult F60.3 [facility] [address] 90653- 4180 Apr, Type 2 diabetes mellitus with diabetic autonomic (poly) neuropathy E11.43 ; Chronic pain syndrome G89.4 and Anxiety F41.9 [facility] [address] 44778 -4165 Apr, BMI 45.0-49.9, adult Z68.42 [facility] [address] 63037 -3348 Apr, Avulsion of toenail, initial encounter S91.209A and Acute non-recurrent maxillary sinusitis J01.00 [facility] [address] 53026- 8878 Apr, [facility] [address] 88503- 8894 Mar, [facility] [id number] [place] [address] 83949- 4935 Mar, Severe episode of recurrent major depressive disorder, without psychotic features F33.2 ; Anxiety, generalized F41.1 and Borderline personality disorder in adult F60.3 [facility] [id number] [place] [address] 09514- 1829 Mar, [facility] [address] 34803- 7715 Mar, [facility] [id number] [place] [address] 55869- 7389 Mar, [facility] [address] 55741- 2410 Mar, Seizure disorder G40.909 [facility] [id number] [place] [address] 21513- 5054 Mar, [facility] [address] [address]- 2722 Mar, [facility] [id number] [place] [address] 65582 -9617 Mar, Left foot pain M79.672 ; Stage 3 chronic kidney disease N18.3 and Closed nondisplaced fracture of second metatarsal bone of left foot, initial encounter S92.325A [facility] [id number] [place] [address] 45405- 2697 Mar, Severe episode of recurrent major depressive disorder, without psychotic features F33.2 and Anxiety, generalized F41.1 [facility] [id number] [place] [address] 94830- 9810 Mar, [facility] [id number] [place] [address] 95679- 5533 Mar, Closed nondisplaced fracture of second metatarsal bone of left foot, initial encounter S92.325A and Closed nondisplaced fracture of third metatarsal bone of left foot, initial encounter S92.335A [facility] [id number] [place] [address] 83772- 7691 Mar, Seizure disorder G40.909 [facility] [id number] [place] [address] 11795- 9960 Mar, [facility] [id number] [place] [address] 70628- 5630 Mar, [facility] [id number] [place] [address] 89491- 6872 Mar, [facility] [id number] [place] [address] 92487- 8497 Mar, [facility] [id number] [place] [address] 58508- 8577 Mar, High risk sexual behavior Z72.51 [facility] [id number] [place] [address] 87477- 6709 Mar, Severe episode of recurrent major depressive disorder, without psychotic features F33.2 and Anxiety, generalized F41.1 [facility] [id number] [place] [address] 36932- 4600 Mar, Anxiety F41.9 and Type 2 diabetes mellitus with diabetic autonomic (poly)neuropathy E11.43 [facility] [id number] [place] [address] 29111- 6211 Mar, Anxiety F41.9 [facility] [id number] [place] [address] 14866- 6257 Mar, High risk sexual behavior Z72.51 [facility] [address] 68298- 9510 Mar, Chronic pain syndrome G89.4 [facility] [id number] [place] [address] 90125- 0238 Mar, Type 2 diabetes mellitus with diabetic autonomic (poly) neuropathy E11.43 [facility] [id number] [place] [address] 95030- 2180 Mar, [facility] [id number] [place] [address] 10445- 1057 Mar, Closed nondisplaced fracture of second metatarsal bone of left foot, initial encounter S92.325A ; Chronic pain syndrome G89.4 ; Closed nondisplaced fracture of third metatarsal bone of left foot, initial encounter S92.335A ; Acute left ankle pain M25.572 and Type 2 diabetes mellitus with diabetic autonomic (poly)neuropathy E11.43 [facility] [id number] [place] [address] 31060- 0756 Mar, [facility] [id number] [place] [address] 98679- 2393 Mar, [facility] [id number] [place] [address] 64417- 7518 Mar, Severe episode of recurrent major depressive disorder, without psychotic features F33.2 and Anxiety, generalized F41.1 [facility] [id number] [place] [address] 84422- 0853 27 Feb, 2017 [facility] [id number] [place] [address] 43427- 5167 26 Feb, 2016 Renal insufficiency N28.9 [facility] [id number] [place] [address] 93484- 1099 26 Feb, 2017 [facility] [id number] [place] [address] 90426- 7400 26 Feb, 2017 Severe episode of recurrent major depressive disorder, without psychotic features F33.2 and Anxiety, generalized F41.1 [facility] [id number] [place] [address] 48923- 1163 25 Feb, 2017 [facility] [id number] [place] [address] 38145- 4085 22 Feb, 2017 [facility] [id number] [place] [address] 79383- 8556 20 Feb, 2017 Renal insufficiency N28.9 [facility] [id number] [place] [address] 85381- 2108 19 Feb, 2017 [facility] [id number] [place] [address] 68446 -4549 18 Feb, 2017 [facility] [id number] [place] [address] 50888- 4849 14 Feb, 2017 [facility] [id number] [place] [address] 44976- 7943 13 Feb, 2017 Severe episode of recurrent major depressive disorder, without psychotic features F33.2 and Anxiety, generalized F41.1 [facility] [id number] [place] [address] 60886- 8433 13 Feb, 2017 Closed nondisplaced fracture of second metatarsal bone of left foot, initial encounter S92.325A ; Chronic pain syndrome G89.4 ; Closed nondisplaced fracture of third metatarsal bone of left foot, initial encounter S92.335A ; Left hip pain M25.552 and Stage 3 chronic kidney disease N18.3 [facility] [id number] [place] [address] 04462- 7916 Feb, [facility] [id number] [place] [address] 12416- 1707 Feb, [facility] [id number] [place] [address] 43483- 9399 Feb, Closed nondisplaced fracture of second metatarsal bone of left foot, initial encounter S92.325A and Closed nondisplaced fracture of third metatarsal bone of left foot, initial encounter S92.335A [facility] [id number] [place] [address] 89659- 7453 Feb, [facility] [id number] [place] [address] 31580- 4094 Feb, Anxiety F41.9 [facility] [id number] [place] [address] 10231- 3793 Feb, [facility] [id number] [place] [address] 36207- 2888 Feb, Chronic pain syndrome G89.4 [facility] [id number] [place] [address] 51796- 6447 Feb, Left foot pain M79.672 ; Closed nondisplaced fracture of second metatarsal bone of left foot, initial encounter S92.325A ; Closed nondisplaced fracture of third metatarsal bone of left foot, initial encounter S92.335A and Oral infection K12.2 [facility] [address] [address] 3[address] Feb, [facility] [id number] [place] [address] 36363- 6132 Jan, [facility] [id number] [place] [address] 77473- 9400 Jan, Type 2 diabetes mellitus with diabetic autonomic (poly) neuropathy E11.43 and Congestive heart failure, unspecified congestive heart failure chronicity, unspecified congestive heart failure type I50.9 [facility] [id number] [place] [address] 15404- 4509 Jan, Congestive heart failure, unspecified congestive heart failure chronicity, unspecified congestive heart failure type I50.9 and Stage 3 chronic kidney disease N18.3 [place] [address] 84125- 5998 Jan, Stage 3 chronic kidney disease N18.3 ; Edema of both legs R60.0 ; Chronic congestive heart failure, unspecified congestive heart failure type I50.9 ; Acute low back pain without sciatica, unspecified back pain laterality M54.5 ; Chronic nausea R11.0 and Primary insomnia F51.01 [facility] [id number] [place] [address] 71464- 7194 Jan, Severe episode of recurrent major depressive disorder, without psychotic features F33.2 and Anxiety, generalized F41.1 [facility] [id number] [place] [address] 54981- 0585 Jan, [place] [address] 44926- 4605 Jan, [facility] [id number] [place] [address] 64271- 0689 Jan, [facility] [id number] [place] [address] 08698- 5839 Jan, [facility] [id number] [place] [address] 10371- 8980 Jan, Anxiety F41.9 and Severe episode of recurrent major depressive disorder, without psychotic features F33.2 [facility] [address] 42202- 7088 Jan, Type 2 diabetes mellitus with diabetic autonomic (poly) neuropathy E11.43 [facility] [id number] [place] [address] 82102- 0116 Jan, Severe episode of recurrent major depressive disorder, without psychotic features F33.2 and Type 2 diabetes mellitus with diabetic autonomic (poly)neuropathy E11.43 [facility] [place] [address] 16745- 7131 Jan, [place] [address] 34337- 7042 Jan, [place] [address] 94634- 8747 Jan, Stage 3 chronic kidney disease N18.3 ; Seizure disorder G40.909 ; Edema of both legs R60.0 and Blister (nonthermal), right foot, initial encounter S90.821A [place] [address] 62513- 5358 Jan, Severe episode of recurrent major depressive disorder, without psychotic features F33.2 and Anxiety, generalized F41.1 [facility] [address] 19778- 3454 Jan, Severe episode of recurrent major depressive disorder, without psychotic features F33.2 and Anxiety, generalized F41.1 [place] [address] 87664- 5210 Jan, [facility] [address] 21031- 9136 Jan, Anxiety F41.9 and Primary insomnia F51.01 [facility] [id number] [place] [address] 27428- 7922 Jan, Type 2 diabetes mellitus with diabetic autonomic (poly) neuropathy E11.43 ; 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 ; Stage 3 chronic kidney disease N18.3 ; Chronic pain syndrome G89.4 ; Swelling of mandible R22.0 and Seizure disorder G40.909 [facility] [id number] [place] [address] 94752- 9954 Jan, [place] [address] 33739- 9152 Jan, [facility] [id number] [place] [address] 12646- 0119 Dec, Severe episode of recurrent major depressive disorder, without psychotic features F33.2 and Anxiety, generalized F41.1 [facility] [id number] [place] [address] 74531- 4457 Dec, Diarrhea, unspecified type R19.7 ; Gastritis determined by endoscopy K29.70 ; Dysuria R30.0 ; Unspecified abdominal pain R10.9 ; Unspecified fall W19.XXXA and Need for assistance with personal care Z74.1 [facility] [id number] [place] [address] 97600- 3990 Dec, Severe episode of recurrent major depressive disorder, without psychotic features F33.2 and Anxiety, generalized F41.1 [facility] [id number] [place] [address] 69888- 6964 Dec, Diarrhea, unspecified type R19.7 ; Dysuria R30.0 ; Unspecified abdominal pain R10.9 ; Gastritis determined by endoscopy K29.70 ; Unspecified fall W19.XXXA and Need for assistance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
--- OUTSIDE RECORDS SUMMARY | 2017-12-04 19:44 | XMS REPORT ---
Author Author MIRZA MARTINO [facility] Address [address] [place] [address] Care Team Providers Care In [employer] Suspension Coordinator Name Role Phone MIRZA MARTINO Unavailable PROBLEMS Type Condition ICD9-CM Code VDY75-GY Code Onset Dates Condition Status SNOMED Code Problem Postural hypotension I95.1 Active 18182299 Problem Seizure disorder G40.909 Active 447844442 Problem Seasonal allergic rhinitis, unspecified allergic rhinitis trigger J30.2 Active 845283351 Problem Closed nondisplaced fracture of second metatarsal bone of left foot, initial encounter S92.325A Active 36725321 Problem Essential hypertension I10 Active 68626687 Problem Multiple neurological symptoms R29.90 Active 826223029 Problem Port catheter in place Z95.828 Active 970616943 Problem Stage 3 chronic kidney disease N18.3 Active 178228497 Problem Gastritis determined by endoscopy K29.70 Active 1173670 Problem Self-inflicted injury Z72.89 Active 415971309 Problem Borderline personality disorder in adult F60.3 Active 57170973 Problem Chronic congestive heart failure, unspecified congestive heart failure type I50.9 Active 15906780 Problem Chronic pain syndrome G89.4 Active 027780180 Problem Primary insomnia F51.01 Active 6768348 Problem Acquired hypothyroidism E03.9 Active 037613201 Problem Gastroparesis K31.84 Active 859296933 Problem Severe episode of recurrent major depressive disorder, without 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 Active 51816239 Problem Anxiety, generalized F41.1 Active 09827538 Problem 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 Active 184086246 Problem Type 2 diabetes mellitus with diabetic polyneuropathy E11.42 Active 32699563 Problem Tobacco abuse Z72.0 Active 512522655 Problem Noncompliance with diabetes treatment Z91.19 Active 3728193 ALLERGIES Substance Reaction Event Type Date Status Compazine Unknown Drug Allergy Jan, Active Zofran Unknown Drug Allergy Jan, Active Tizanidine HCl seizure Drug Allergy Jan, Active Sulfamethoxazole-Trimethoprim Unknown Drug Allergy Jan, Active Metoclopramide HCl Unknown Drug Allergy Jan, Active Iodine Unknown Drug Allergy Jan, Active Hydrocodone-Acetaminophen Unknown Drug Allergy Jan, Active Codeine Sulfate Unknown Drug Allergy Jan, Active Acetaminophen Unknown Drug Allergy Jan, Active ENCOUNTERS Encounter Location Date Diagnosis [facility] [address] [place] [address] 10475- 4920 October, [facility] [id number] [place] [address] 78045- 0482 October, [facility] [id number] [place] [address] 20328- 3802 October, [facility] [id number] [place] [address] 91617- 5118 October, [facility] [id number] [place] [address] 56020- 3065 Sep, Severe episode of recurrent major depressive disorder, without psychotic features F33.2 ; Anxiety, generalized F41.1 and Borderline personality disorder in adult F60.3 [facility] [id number] [place] [address] 32843- 4875 Sep, [facility] [address] [place] [address] 29254- 9087 Sep, Throat pain R07.0 ; BMI 40.0-44.9, adult Z68.41 and Chronic pain syndrome G89.4 [facility] [address] [address] 5[address] Sep, [facility] [id number] [place] [address] 47577- 1389 Sep, [facility] [id number] [place] [address] 37313- 9355 Sep, [facility] [id number] [place] [address] 32390- 6954 Sep, Anxiety, generalized F41.1 [facility] [address] [address] 5518 Sep, [facility] [id number] [place] [address] 78306- 6476 Sep, Stage 3 chronic kidney disease N18.3 [facility] [id number] [place] [address] 99835- 3490 Sep, Stage 3 chronic kidney disease N18.3 and Chronic pain syndrome G89.4 [facility] [id number] [place] [address] 28944- 3541 Sep, Severe episode of recurrent major depressive disorder, without psychotic features F33.2 ; Anxiety, generalized F41.1 and Borderline personality disorder in adult F60.3 [facility] [id number] [place] [address] 05070- 7977 Sep, Chronic pain syndrome G89.4 ; Anxiety, generalized F41.1 and BMI 45.0-49.9, adult Z68.42 [facility] [id number] [place] [address] 12432- 8744 Sep, [facility] [id number] [place] [address] 97964- 0785 Sep, [facility] [id number] [place] [address] 10276- 6637 Sep, Severe episode of recurrent major depressive disorder, without psychotic features F33.2 ; Anxiety, generalized F41.1 and Borderline personality disorder in adult F60.3 [facility] [address] [address]- 9851 Sep, [facility] [id number] [place] [address] 06648 -0107 Aug, Dysuria R30.0 ; Type 2 diabetes mellitus with diabetic polyneuropathy E11.42 ; Oral abscess K12.2 and BMI 40.0-44.9, adult Z68.41 [facility] [address] [place] [address]- 9320 30 Aug, 2017 [facility] [address] [address]- 0649 28 Aug, 2017 [facility] [address] [address]- 8740 27 Aug, 2017 [facility] [address] [place] [address] 18250- 1733 Aug, [facility] [id number] [place] [address] 28021- 5639 Aug, Severe episode of recurrent major depressive disorder, without psychotic features F33.2 ; Anxiety, generalized F41.1 and Borderline personality disorder in adult F60.3 [facility] [id number] [place] [address] 15121- 4706 22 Aug, 2017 [facility] [id number] [place] [address] 14777- 4640 20 Aug, 2017 [facility] [address] [place] [address] 13932- 5773 19 Aug, 2017 Severe episode of recurrent major depressive disorder, without psychotic features F33.2 ; Anxiety, generalized F41.1 and Borderline personality disorder in adult F60.3 [facility] [address], [place] [address] 17 Aug, 2017 [facility] [address], [place] [address]- 1451 15 Aug, 2017 [facility] [address], [place] [address]- 3415 14 Aug, 2017 [facility] [id number] [place] [address] 73189 -0974 14 Aug, 2017 Dysuria R30.0 ; Dental infection K04.7 ; Acute cystitis with hematuria N30.01 and BMI 45.0-49.9, adult Z68.42 [facility] [address] [place] [address] 26737- 6876 14 Aug, 2017 Severe episode of recurrent major depressive disorder, without psychotic features F33.2 ; Anxiety, generalized F41.1 and Borderline personality disorder in adult F60.3 [facility] [address] [place] [address] 55755- 7386 09 Aug, 2017 [facility] [address] [address]- 4184 08 Aug, 2017 Closed nondisplaced fracture of second metatarsal bone of left foot, initial encounter S92.325A and Chronic pain syndrome G89.4 [facility] [address] [place] [address] 83134- 4936 08 Aug, 2017 Type 2 diabetes mellitus with diabetic polyneuropathy E11.42 [facility] [id number] [place] [address] 69933- 1812 08 Aug, 2017 Severe episode of recurrent major depressive disorder, without psychotic features F33.2 ; Anxiety, generalized F41.1 and Borderline personality disorder in adult F60.3 [facility] [address] [address]- 3377 07 Aug, 2017 [facility] [id number] [place] [address] 36319- 8066 Aug, [facility] [address] [place] [address] 38639- 3781 Aug, [facility] [address], [place] [address]- 0486 Aug, [facility] [address] [address]- 7906 Aug, [facility] [id number] [place] [address] 78013- 4036 Jul, [facility] [address], [place] [address]- 5326 Jul, [facility] [id number] [place] [address] 03349- 2914 Jul, Severe episode of recurrent major depressive disorder, without psychotic features F33.2 ; Anxiety, generalized F41.1 and Borderline personality disorder in adult F60.3 [facility] [id number] [place] [address] 20062- 1090 Jul, Type 2 diabetes mellitus with diabetic polyneuropathy E11.42 [facility] [id number] [place] [address] 19262- 8071 Jul, Closed nondisplaced fracture of second metatarsal bone of left foot, initial encounter S92.325A and Closed nondisplaced fracture of third metatarsal bone of left foot, initial encounter S92.335A [facility] [address] 68201- 4184 Jul, [facility] [id number] [place] [address] 51500- 8706 Jul, Closed nondisplaced fracture of second metatarsal bone of left foot, initial encounter S92.325A ; Acute left ankle pain M25.572 ; Acute midline low back pain without sciatica M54.5 and Seasonal allergic rhinitis, unspecified allergic rhinitis trigger J30.2 [facility] [id number] [place] [address] 30895- 1395 Jul, [facility] [id number] [place] [address] 46478- 1986 Jul, [facility] [id number] [place] [address] 31820- 4638 Jul, [facility] [id number] [place] [address] 17995- 6037 15 Jul, 2017 Frequent falls R29.6 [facility] [id number] [place] [address] 08649- 9628 14 Jul, 2017 Frequent falls R29.6 [facility] [id number] [place] [address] 91861- 0681 07 Jul, 2017 Severe episode of recurrent major depressive disorder, without psychotic features F33.2 ; Anxiety, generalized F41.1 and Borderline personality disorder in adult F60.3 [facility] [id number] [place] [address] 01038- 9251 07 Jul, 2017 Chronic pain syndrome G89.4 [facility] [id number] [place] [address] 93699- 9783 07 Jul, 2017 longterm 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 [facility] [address] 57462- 0746 Jul, [facility] [address] 85017- 1067 Jul, Type 2 diabetes mellitus with diabetic polyneuropathy E11.42 [facility] [address] 90451- 5629 Jun, longterm 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 and Thrush B37.0 [facility] [id number] [place] [address] 12255- 7479 Jun, Severe episode of recurrent major depressive disorder, without psychotic features F33.2 ; Anxiety, generalized F41.1 and Borderline personality disorder in adult F60.3 [facility] [id number] [place] [address] 74813- 4419 Jun, Severe episode of recurrent major depressive disorder, without psychotic features F33.2 ; Anxiety, generalized F41.1 and Borderline personality disorder in adult F60.3 [facility] [id number] [place] [address] 53985- 3625 Jun, Frequent falls R29.6 ; Bronchitis J40 ; BMI 40.0-44.9, adult Z68.41 and Coccygeal pain, acute M53.3 [facility] [id number] [place] [address] 39750- 8160 Jun, [facility] [address] 33708 -7840 Jun, [facility] [address], [place] [address]- 1374 Jun, [facility] [id number] [place] [address] 02401- 6464 Jun, Dental caries, unspecified K02.9 [facility] [address] [place] [address] 97041- 4026 Jun, Acute non-recurrent maxillary sinusitis J01.00 and BMI 40.0- 44.9, adult Z68.41 [facility] [address] [place] [address] 73271- 0435 Jun, [facility] [id number] [place] [address] 01742- 6598 Jun, Severe episode of recurrent major depressive disorder, without psychotic features F33.2 ; Anxiety, generalized F41.1 and Borderline personality disorder in adult F60.3 [facility] [address] [place] [address] 58259- 0543 Jun, Closed nondisplaced fracture of third metatarsal bone of left foot with routine healing, subsequent encounter S92.335D ; Closed nondisplaced fracture of second metatarsal bone of left foot with routine healing, subsequent encounter S92.325D and Closed nondisplaced fracture of fourth metatarsal bone of left foot with routine healing, subsequent encounter S92.345D [facility] [address] [place] [address] 78285- 6772 Jun, Severe episode of recurrent major depressive disorder, without psychotic features F33.2 ; Anxiety, generalized F41.1 and Borderline personality disorder in adult F60.3 [facility] [address] [address]- 7536 Jun, [facility] [address] [place] [address] 35230- 0964 Jun, [facility] [address] [place] [address] 27866- 7813 Jun, [facility] [address], [place] [address]- 5983 Jun, [facility] [id number] [place] [address] 43156- 7508 Jun, [facility] [address] [place] [address] 96864- 7126 Jun, Anxiety F41.9 [facility] [id number] [place] [address] 63720- 9786 Jun, [facility] [address] [place] [address] 64876- 6427 Jun, [facility] [id number] [place] [address] 91582- 4992 Jun, Type 2 diabetes mellitus with diabetic autonomic (poly) neuropathy E11.43 [facility] [id number] [place] [address] 67919- 7259 Jun, Severe episode of recurrent major depressive disorder, without psychotic features F33.2 ; Anxiety, generalized F41.1 and Borderline personality disorder in adult F60.3 [facility] [id number] [place] [address] 64106- 8391 Jun, Type 2 diabetes mellitus with diabetic autonomic (poly) neuropathy E11.43 and Chronic pain syndrome G89.4 [facility] [address] [place] [address] 18999- 2773 May, Recent urinary tract infection Z87.440 ; Deliberate self- cutting Z72.89 ; Chest discomfort R07.89 ; BMI 40.0-44.9, adult Z68.41 and Worried well Z71.1 [facility] [id number] [place] [address] 39520- 2759 May, Severe episode of recurrent major depressive disorder, without psychotic features F33.2 ; Anxiety, generalized F41.1 and Borderline personality disorder in adult F60.3 [facility] [address] [place] [address] 52850- 1221 May, [facility] [address] [place] [address] 74728- 8211 May, [facility] [id number] [place] [address] 19106- 1997 May, Type 2 diabetes mellitus with diabetic autonomic (poly) neuropathy E11.43 [facility] [id number] [place] [address] 53572- 2855 May, Severe episode of recurrent major depressive disorder, without psychotic features F33.2 ; Anxiety, generalized F41.1 and Borderline personality disorder in adult F60.3 [facility] [id number] [place] [address] 36489- 5518 May, [facility] [id number] [place] [address] 71271- 9410 May, Type 2 diabetes mellitus with diabetic autonomic (poly) neuropathy E11.43 ; Multiple neurological symptoms R29.90 ; Dysuria R30.0 ; Tobacco abuse Z72.0 ; Right hip pain M25.551 ; Anxiety F41.9 ; Gastritis determined by endoscopy K29.70 ; Chronic pain syndrome G89.4 ; Acute non- recurrent maxillary sinusitis J01.00 ; Self mutilating behavior Z72.89 and BMI 40.0-44.9, adult Z68.41 [facility] [id number] [place] [address] 98531- 2616 May, Severe episode of recurrent major depressive disorder, without psychotic features F33.2 ; Anxiety, generalized F41.1 and Borderline personality disorder in adult F60.3 [facility] [address] [place] [address] 46965- 4790 Apr, [place] [id number] [place] [address] 11080- 4160 Apr, [facility] [id number] [place] [address] 04475 -4188 Apr, [facility] [id number] [place] [address] 00075 -6266 Apr, Aspiration pneumonia of right lower lobe, unspecified aspiration pneumonia type J69.0 [facility] [address] [place] [address]- 6504 Apr, Severe episode of recurrent major depressive disorder, without psychotic features F33.2 ; Anxiety, generalized F41.1 and Borderline personality disorder in adult F60.3 [facility] [id number] [place] [address] 89858- 7461 Apr, [facility] [address] [place] [address] 02794- 8147 Apr, Chronic pain syndrome G89.4 [facility] [id number] [place] [address] 06225- 9801 Apr, Severe episode of recurrent major depressive disorder, without psychotic features F33.2 ; Anxiety, generalized F41.1 and Borderline personality disorder in adult F60.3 [facility] [address] [place] [address] 73288- 1608 Apr, Severe episode of recurrent major depressive disorder, without psychotic features F33.2 ; Anxiety, generalized F41.1 and Borderline personality disorder in adult F60.3 [facility] [address] [place] [address] 91873- 1124 16 Apr, 2017 Closed nondisplaced fracture of third metatarsal bone of left foot with routine healing, subsequent encounter S92.335D ; Closed nondisplaced fracture of fourth metatarsal bone of left foot with routine healing, subsequent encounter S92.345D and Closed nondisplaced fracture of second metatarsal bone of left foot with routine healing, subsequent encounter S92.325D [facility] [address] [place] [address] 23821- 7498 Apr, [facility] [address] [place] [address] 59722- 9568 15 Apr, 2017 [facility] [address] [place] [address] 16718- 9461 14 Apr, 2017 [facility] [id number] [place] [address] 32807- 6643 13 Apr, 2017 Screening breast examination Z12.31 [facility] [id number] [place] [address] 15759- 0187 09 Apr, 2017 [facility] [id number] [place] [address] 61983- 9207 Apr, Type 2 diabetes mellitus with diabetic autonomic (poly) neuropathy E11.43 [facility] [id number] [place] [address] 77848- 9659 Apr, Severe episode of recurrent major depressive disorder, without psychotic features F33.2 ; Anxiety, generalized F41.1 and Borderline personality disorder in adult F60.3 [facility] [id number] [place] [address] 79756- 8161 06 Apr, 2017 Type 2 diabetes mellitus with diabetic autonomic (poly) neuropathy E11.43 ; Chronic pain syndrome G89.4 and Anxiety F41.9 [facility] [id number] [place] [address] 98867 -1973 Apr, BMI 45.0-49.9, adult Z68.42 [facility] [id number] [place] [address] 70298 -6741 Apr, Avulsion of toenail, initial encounter S91.209A and Acute non-recurrent maxillary sinusitis J01.00 [facility] [id number] [place] [address] 93514- 2799 Apr, [facility] [id number] [place] [address] 30259- 2514 Mar, [facility] [address] 25385- 9939 Mar, Severe episode of recurrent major depressive disorder, without psychotic features F33.2 ; Anxiety, generalized F41.1 and Borderline personality disorder in adult F60.3 [place] [facility] [address] 09041- 5852 Mar, [facility] [address] [address]- 2438 Mar, [facility] [id number] [place] [address] 27314- 2929 Mar, [facility] [address] [place] [address] 66373- 2539 Mar, Seizure disorder G40.909 [facility] [id number] [place] [address] 30447- 8704 Mar, [facility] [id number] [place] [address] 18888- 2998 Mar, [facility] [address] [place] [address] 44789 -3554 Mar, Left foot pain M79.672 ; Stage 3 chronic kidney disease N18.3 and Closed nondisplaced fracture of second metatarsal bone of left foot, initial encounter S92.325A [facility] [address] [place] [address] 23616- 8846 Mar, Severe episode of recurrent major depressive disorder, without psychotic features F33.2 and Anxiety, generalized F41.1 [facility] [address] [place] [address] 52777- 7650 Mar, [facility] [id number] [place] [address] 71412- 1669 Mar, Closed nondisplaced fracture of second metatarsal bone of left foot, initial encounter S92.325A and Closed nondisplaced fracture of third metatarsal bone of left foot, initial encounter S92.335A [facility] [id number] [place] [address] 94124- 5669 Mar, Seizure disorder G40.909 [facility] [address] [place] [address] 90456- 8400 Mar, [facility] [address] [address]- 1916 Mar, [facility] [id number] [place] [address] 97062- 1394 Mar, [facility] [facility] [id number] [place] [address] 43263- 1541 Mar, [facility] [id number] [place] [address] 51087- 2623 Mar, High risk sexual behavior Z72.51 [facility] [id number] [place] [address] 72269- 2058 Mar, Severe episode of recurrent major depressive disorder, without psychotic features F33.2 and Anxiety, generalized F41.1 [facility] [id number] [place] [address] 72422- 5636 Mar, Anxiety F41.9 and Type 2 diabetes mellitus with diabetic autonomic (poly)neuropathy E11.43 [facility] [id number] [place] [address] 60978- 4611 Mar, Anxiety F41.9 [facility] [id number] [place] [address] 31006- 8678 Mar, High risk sexual behavior Z72.51 [facility] [address] [place] [address] 69203- 3516 Mar, Chronic pain syndrome G89.4 [facility] [id number] [place] [address] 72081- 8377 Mar, Type 2 diabetes mellitus with diabetic autonomic (poly) neuropathy E11.43 [facility] [address] [address] 3[address] Mar, [facility] [id number] [place] [address] 71043- 8710 Mar, Closed nondisplaced fracture of second metatarsal bone of left foot, initial encounter S92.325A ; Chronic pain syndrome G89.4 ; Closed nondisplaced fracture of third metatarsal bone of left foot, initial encounter S92.335A ; Acute left ankle pain M25.572 and Type 2 diabetes mellitus with diabetic autonomic (poly)neuropathy E11.43 [facility] [id number] [place] [address] 32814- 1931 Mar, [facility] [id number] [place] [address] 56039- 2107 Mar, [facility] [address] 98891- 8228 Mar, Severe episode of recurrent major depressive disorder, without psychotic features F33.2 and Anxiety, generalized F41.1 [place] [address] 56498- 4322 27 Feb, 2017 [facility] [id number] [place] [address] 44677- 4928 Feb, Renal insufficiency N28.9 [facility] [id number] [place] [address] 27736- 0780 26 Feb, 2017 [facility] [id number] [place] [address] 85832- 3273 Feb, Severe episode of recurrent major depressive disorder, without psychotic features F33.2 and Anxiety, generalized F41.1 [facility] [id number] [place] [address] 95381- 4819 25 Feb, 2017 [facility] [id number] [place] [address] 05083- 6580 22 Feb, 2017 [facility] [id number] [place] [address] 59730- 0894 20 Feb, 2017 Renal insufficiency N28.9 [facility] [id number] [place] [address] 29090- 9160 19 Feb, 2017 [facility] [id number] [place] [address] 36679 -5946 18 Feb, 2017 [facility] [id number] [place] [address] 46894- 9858 14 Feb, 2017 [facility] [address] [place] [address] 65870- 9123 13 Feb, 2017 Severe episode of recurrent major depressive disorder, without psychotic features F33.2 and Anxiety, generalized F41.1 [facility] [address] [address]- 2885 13 Feb, 2017 Closed nondisplaced fracture of second metatarsal bone of left foot, initial encounter S92.325A ; Chronic pain syndrome G89.4 ; Closed nondisplaced fracture of third metatarsal bone of left foot, initial encounter S92.335A ; Left hip pain M25.552 and Stage 3 chronic kidney disease N18.3 [place] [id number] [place] [address] 76185- 4870 07 Feb, 2017 [place] [id number] [place] [address] 87621- 4173 Feb, [place] [facility] [id number] [place] [address] 97328- 8077 Feb, Closed nondisplaced fracture of second metatarsal bone of left foot, initial encounter S92.325A and Closed nondisplaced fracture of third metatarsal bone of left foot, initial encounter S92.335A [facility] [address] [address]- 1665 Feb, [place] [address] [place] [address] 55390- 2007 Feb, Anxiety F41.9 [facility] [address] [place] [address] 10626- 5182 Feb, [place] [id number] [place] [address] 13329- 5791 Feb, Chronic pain syndrome G89.4 [facility] [address] [place] [address] 35069- 5128 05 Feb, 2017 Left foot pain M79.672 ; Closed nondisplaced fracture of second metatarsal bone of left foot, initial encounter S92.325A ; Closed nondisplaced fracture of third metatarsal bone of left foot, initial encounter S92.335A and Oral infection K12.2 [place] [id number] [place] [address] 79222- 3209 Feb, [place] [id number] [place] [address] 93795- 5868 Jan, [facility] [id number] [place] [address] 30581- 8349 Jan, Type 2 diabetes mellitus with diabetic autonomic (poly) neuropathy E11.43 and Congestive heart failure, unspecified congestive heart failure chronicity, unspecified congestive heart failure type I50.9 [facility] [facility] [id number] [place] [address] 95266- 5321 Jan, Congestive heart failure, unspecified congestive heart failure chronicity, unspecified congestive heart failure type I50.9 and Stage 3 chronic kidney disease N18.3 [place] [id number] [place] [address] 04975- 6866 Jan, Stage 3 chronic kidney disease N18.3 ; Edema of both legs R60.0 ; Chronic congestive heart failure, unspecified congestive heart failure type I50.9 ; Acute low back pain without sciatica, unspecified back pain laterality M54.5 ; Chronic nausea R11.0 and Primary insomnia F51.01 [place] [facility] [id number] [place] [address] 22058- 3109 Jan, Severe episode of recurrent major depressive disorder, without psychotic features F33.2 and Anxiety, generalized F41.1 [facility] [id number] [place] [address] 95731- 5094 Jan, [facility] [id number] [place] [address] 02414- 5317 Jan, [facility] [id number] [place] [address] 69127- 5187 Jan, [place] [address] [place] [address]- 4961 Jan, [facility] [id number] [place] [address] 30615- 4787 Jan, Anxiety F41.9 and Severe episode of recurrent major depressive disorder, without psychotic features F33.2 [facility] [id number] [place] [address] 42896- 2101 Jan, Type 2 diabetes mellitus with diabetic autonomic (poly) neuropathy E11.43 [facility] [id number] [place] [address] 02355- 5674 Jan, Severe episode of recurrent major depressive disorder, without psychotic features F33.2 and Type 2 diabetes mellitus with diabetic autonomic (poly)neuropathy E11.43 [facility] [id number] [place] [address] 04062- 5093 Jan, [place] [address] 07944- 5026 Jan, [facility] [id number] [place] [address] 17487- 0116 Jan, Stage 3 chronic kidney disease N18.3 ; Seizure disorder G40.909 ; Edema of both legs R60.0 and Blister (nonthermal), right foot, initial encounter S90.821A [place] [id number] [place] [address] 02583- 2381 Jan, Severe episode of recurrent major depressive disorder, without psychotic features F33.2 and Anxiety, generalized F41.1 [place] [facility] [id number] [place] [address] 59830- 0056 Jan, Severe episode of recurrent major depressive disorder, without psychotic features F33.2 and Anxiety, generalized F41.1 [place] [id number] [place] [address] 54630- 1219 Jan, [place] [id number] [place] [address] 08112- 5323 Jan, Anxiety F41.9 and Primary insomnia F51.[address] [place] [address] 11698- 6577 08 Jan, 2017 Type 2 diabetes mellitus with diabetic autonomic (poly) neuropathy E11.43 ; 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
[2017-12-04] MEDS ORDERED: NS IV 1000 ML 1,000 ML IV SCH ×2 (19:45→20:57)
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
--- OUTSIDE RECORDS SUMMARY | 2017-12-04 19:48 | XMS REPORT ---
Author Author MIRZA MARTINO [facility] Address [address] [place] [address] Care Team Providers Care Bung Sewer Name Role Phone MIRZA MARTINO Unavailable PROBLEMS Type Condition ICD9-CM Code LYZ56-CZ Code Onset Dates Condition Status SNOMED Code Problem Postural hypotension I95.1 Active 65785632 Problem Seizure disorder G40.909 Active 764498583 Problem Seasonal allergic rhinitis, unspecified allergic rhinitis trigger J30.2 Active 647999299 Problem Closed nondisplaced fracture of second metatarsal bone of left foot, initial encounter S92.325A Active 04878289 Problem Essential hypertension I10 Active 27854074 Problem Multiple neurological symptoms R29.90 Active 233700755 Problem Port catheter in place Z95.828 Active 597777747 Problem Stage 3 chronic kidney disease N18.3 Active 280470894 Problem Gastritis determined by endoscopy K29.70 Active 0276253 Problem Self-inflicted injury Z72.89 Active 741505506 Problem Borderline personality disorder in adult F60.3 Active 70356193 Problem Chronic congestive heart failure, unspecified congestive heart failure type I50.9 Active 77832353 Problem Chronic pain syndrome G89.4 Active 579410496 Problem Primary insomnia F51.01 Active 1092332 Problem Acquired hypothyroidism E03.9 Active 102138716 Problem Gastroparesis K31.84 Active 803206389 Problem Severe episode of recurrent major depressive disorder, without 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 Active 31912103 Problem Anxiety, generalized F41.1 Active 58756413 Problem emt 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 Active 023325988 Problem Type 2 diabetes mellitus with diabetic polyneuropathy E11.42 Active 43550117 Problem Tobacco abuse Z72.0 Active 007877019 Problem Noncompliance with diabetes treatment Z91.19 Active 6710922 ALLERGIES Substance Reaction Event Type Date Status [...] Active Acetaminophen Unknown Drug Allergy Feb, Active ENCOUNTERS Encounter Location Date Diagnosis [facility] [id number] [place] [address] 48240- 0625 October, [facility] [id number] [place] [address] 19428- 0408 October, [facility] [id number] [place] [address] 69783- 1280 October, [facility] [id number] [place] [address] 71576- 6514 October, [facility] [id number] [place] [address] 23675- 6581 Sep, Severe episode of recurrent major depressive disorder, without psychotic features F33.2 ; Anxiety, generalized F41.1 and Borderline personality disorder in adult F60.3 [facility] [id number] [place] [address] 86982- 6927 Sep, [facility] [id number] [place] [address] 69511- 7779 Sep, Throat pain R07.0 ; BMI 40.0-44.9, adult Z68.41 and Chronic pain syndrome G89.4 [facility] [id number] [address] Sep, [facility] [id number] [place] [address] 65627- 4190 Sep, [facility] [id number] [place] [address] 14715- 7381 Sep, [facility] [id number] [place] [address] 23818- 0712 Sep, Anxiety, generalized F41.1 [facility] [address] [address] 3032 Sep, [facility] [id number] [place] [address] 54612- 1354 Sep, Stage 3 chronic kidney disease N18.3 [facility] [id number] [place] [address] 46915- 0941 Sep, Stage 3 chronic kidney disease N18.3 and Chronic pain syndrome G89.4 [facility] [id number] [place] [address] 51696- 0384 Sep, Severe episode of recurrent major depressive disorder, without psychotic features F33.2 ; Anxiety, generalized F41.1 and Borderline personality disorder in adult F60.3 [facility] [id number] [place] [address] 29259- 2733 Sep, Chronic pain syndrome G89.4 ; Anxiety, generalized F41.1 and BMI 45.0-49.9, adult Z68.42 [facility] [id number] [place] [address] 85562- 6064 Sep, [facility] [id number] [place] [address] 17031- 4796 Sep, [facility] [id number] [place] [address] 26366- 5542 Sep, Severe episode of recurrent major depressive disorder, without psychotic features F33.2 ; Anxiety, generalized F41.1 and Borderline personality disorder in adult F60.3 [facility] [address] [address] 3[address] Sep, [facility] [id number] [place] [address] 58824 -1602 Aug, Dysuria R30.0 ; Type 2 diabetes mellitus with diabetic polyneuropathy E11.42 ; Oral abscess K12.2 and BMI 40.0-44.9, adult Z68.41 [facility] [address] [place] [address]- 0484 30 Aug, 2017 [facility] [id number] [address]- 9122 28 Aug, 2017 [facility] [id number] [address]- 5042 27 Aug, 2017 [facility] [id number] [place] [address] 23673- 0147 Aug, [facility] [id number] [place] [address] 60636- 6028 Aug, Severe episode of recurrent major depressive disorder, without psychotic features F33.2 ; Anxiety, generalized F41.1 and Borderline personality disorder in adult F60.3 [facility] [id number] [place] [address] 51307- 5055 22 Aug, 2017 [facility] [id number] [place] [address] 05214- 7360 20 Aug, 2017 [facility] [id number] [place] [address] 06045- 4638 19 Aug, 2017 Severe episode of recurrent major depressive disorder, without psychotic features F33.2 ; Anxiety, generalized F41.1 and Borderline personality disorder in adult F60.3 [facility] [id number], [place] [address]8337 17 Aug, 2017 [facility] [id number] [address]- 6370 15 Aug, 2017 [facility] [id number], [place] [address]- 0809 14 Aug, 2017 [facility] [id number] [place] [address] 55944 -8107 14 Aug, 2017 Dysuria R30.0 ; Dental infection K04.7 ; Acute cystitis with hematuria N30.01 and BMI 45.0-49.9, adult Z68.42 [facility] [id number] [place] [address] 46257- 9119 14 Aug, 2017 Severe episode of recurrent major depressive disorder, without psychotic features F33.2 ; Anxiety, generalized F41.1 and Borderline personality disorder in adult F60.3 [facility] [id number] [place] [address] 94084- 9826 09 Aug, 2017 [facility] [address], [place] [address]- 9050 08 Aug, 2017 Closed nondisplaced fracture of second metatarsal bone of left foot, initial encounter S92.325A and Chronic pain syndrome G89.4 [facility] [id number] [place] [address] 56667- 7802 08 Aug, 2017 Type 2 diabetes mellitus with diabetic polyneuropathy E11.42 [facility] [id number] [place] [address] 78625- 0793 08 Aug, 2017 Severe episode of recurrent major depressive disorder, without psychotic features F33.2 ; Anxiety, generalized F41.1 and Borderline personality disorder in adult F60.3 [facility] [address] [address]- 2004 07 Aug, 2017 [facility] [id number] [place] [address] 40704- 0016 Aug, [facility] [id number] [place] [address] 29442- 3459 Aug, [facility] [id number], [place] [address]- 6116 Aug, [facility] [id number], [place] [address]- 5796 Aug, [facility] [id number] [place] [address] 25005- 1726 Jul, [facility] [id number] [address]- 8256 Jul, [facility] [id number] [place] [address] 66580- 3725 Jul, Severe episode of recurrent major depressive disorder, without psychotic features F33.2 ; Anxiety, generalized F41.1 and Borderline personality disorder in adult F60.3 [facility] [id number] [place] [address] 80011- 2155 Jul, Type 2 diabetes mellitus with diabetic polyneuropathy E11.42 [facility] [id number] [place] [address] 04738- 9809 Jul, Closed nondisplaced fracture of second metatarsal bone of left foot, initial encounter S92.325A and Closed nondisplaced fracture of third metatarsal bone of left foot, initial encounter S92.335A [facility] [address] 50479- 6989 Jul, [facility] [id number] [place] [address] 34833- 2815 Jul, Closed nondisplaced fracture of second metatarsal bone of left foot, initial encounter S92.325A ; Acute left ankle pain M25.572 ; Acute midline low back pain without sciatica M54.5 and Seasonal allergic rhinitis, unspecified allergic rhinitis trigger J30.2 [facility] [id number] [place] [address] 99287- 8985 Jul, [facility] [id number] [place] [address] 89247- 8527 Jul, [facility] [id number] [place] [address] 86080- 1420 Jul, [facility] [id number] [place] [address] 02770- 1483 15 Jul, 2017 Frequent falls R29.6 [facility] [id number] [place] [address] 48066- 7576 14 Jul, 2017 Frequent falls R29.6 [facility] [id number] [place] [address] 86438- 2425 07 Jul, 2017 Severe episode of recurrent major depressive disorder, without psychotic features F33.2 ; Anxiety, generalized F41.1 and Borderline personality disorder in adult F60.3 [facility] [id number] [place] [address] 92443- 4233 07 Jul, 2017 Chronic pain syndrome G89.4 [facility] [id number] [place] [address] 91432- 3282 07 Jul, 2017 longterm 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 [facility] [address] 37272- 9624 Jul, [facility] [address] 48531- 6345 Jul, Type 2 diabetes mellitus with diabetic polyneuropathy E11.42 [facility] [address] 82001- 6542 Jun, longterm 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 and Thrush B37.0 [facility] [id number] [place] [address] 62684- 9363 Jun, Severe episode of recurrent major depressive disorder, without psychotic features F33.2 ; Anxiety, generalized F41.1 and Borderline personality disorder in adult F60.3 [facility] [id number] [place] [address] 26379- 2756 Jun, Severe episode of recurrent major depressive disorder, without psychotic features F33.2 ; Anxiety, generalized F41.1 and Borderline personality disorder in adult F60.3 [facility] [id number] [place] [address] 06957- 1320 Jun, Frequent falls R29.6 ; Bronchitis J40 ; BMI 40.0-44.9, adult Z68.41 and Coccygeal pain, acute M53.3 [facility] [id number] [place] [address] 66210- 2167 Jun, [facility] [address] 02935 -1513 Jun, [facility] [address] [address]- 6546 Jun, [facility] [id number] [place] [address] 48085- 6048 Jun, Dental caries, unspecified K02.9 [facility] [id number] [place] [address] 75274- 2039 Jun, Acute non-recurrent maxillary sinusitis J01.00 and BMI 40.0- 44.9, adult Z68.41 [facility] [id number] [place] [address] 43555- 0310 Jun, [facility] [id number] [place] [address] 89680- 4856 Jun, Severe episode of recurrent major depressive disorder, without psychotic features F33.2 ; Anxiety, generalized F41.1 and Borderline personality disorder in adult F60.3 [facility] [id number] [place] [address] 51326- 7776 Jun, Closed nondisplaced fracture of third metatarsal bone of left foot with routine healing, subsequent encounter S92.335D ; Closed nondisplaced fracture of second metatarsal bone of left foot with routine healing, subsequent encounter S92.325D and Closed nondisplaced fracture of fourth metatarsal bone of left foot with routine healing, subsequent encounter S92.345D [facility] [id number] [place] [address] 51561- 6576 Jun, Severe episode of recurrent major depressive disorder, without psychotic features F33.2 ; Anxiety, generalized F41.1 and Borderline personality disorder in adult F60.3 [facility] [address] [address]- 9484 Jun, [facility] [id number] [place] [address] 16558- 3480 Jun, [facility] [id number] [place] [address] 24300- 8309 Jun, [facility] [address], [place] [address]- 7692 Jun, [facility] [id number] [place] [address] 04206- 0032 Jun, [facility] [id number] [place] [address] 77968- 0911 Jun, Anxiety F41.9 [facility] [id number] [place] [address] 94425- 9871 Jun, [facility] [id number] [place] [address] 34192- 5935 Jun, [facility] [id number] [place] [address] 70655- 9968 Jun, Type 2 diabetes mellitus with diabetic autonomic (poly) neuropathy E11.43 [facility] [id number] [place] [address] 71918- 7852 Jun, Severe episode of recurrent major depressive disorder, without psychotic features F33.2 ; Anxiety, generalized F41.1 and Borderline personality disorder in adult F60.3 [facility] [id number] [place] [address] 82716- 0551 Jun, Type 2 diabetes mellitus with diabetic autonomic (poly) neuropathy E11.43 and Chronic pain syndrome G89.4 [facility] [address] [place] [address] 12882- 4312 May, Recent urinary tract infection Z87.440 ; Deliberate self- cutting Z72.89 ; Chest discomfort R07.89 ; BMI 40.0-44.9, adult Z68.41 and Worried well Z71.1 [facility] [id number] [place] [address] 61784- 5803 May, Severe episode of recurrent major depressive disorder, without psychotic features F33.2 ; Anxiety, generalized F41.1 and Borderline personality disorder in adult F60.3 [facility] [place] [id number] [place] [address] 27323- 3996 May, [facility] [place] [id number] [place] [address] 81958- 9797 May, [facility] [id number] [place] [address] 04393- 9258 May, Severe episode of recurrent major depressive disorder, without psychotic features F33.2 ; Anxiety, generalized F41.1 and Borderline personality disorder in adult F60.3 [facility] [id number] [place] [address] 48534- 4249 May, Type 2 diabetes mellitus with diabetic autonomic (poly) neuropathy E11.43 [facility] [id number] [place] [address] 40886- 8620 May, [facility] [id number] [place] [address] 98414- 1405 May, Type 2 diabetes mellitus with diabetic autonomic (poly) neuropathy E11.43 ; Multiple neurological symptoms R29.90 ; Dysuria R30.0 ; Tobacco abuse Z72.0 ; Right hip pain M25.551 ; Anxiety F41.9 ; Gastritis determined by endoscopy K29.70 ; Chronic pain syndrome G89.4 ; Acute non- recurrent maxillary sinusitis J01.00 ; Self mutilating behavior Z72.89 and BMI 40.0-44.9, adult Z68.41 [facility] [address] [place] [address] 22735- 9391 May, Severe episode of recurrent major depressive disorder, without psychotic features F33.2 ; Anxiety, generalized F41.1 and Borderline personality disorder in adult F60.3 [facility] [address], [place] [address]- 5172 Apr, [facility] [id number] [place] [address] 62018- 4407 Apr, [facility] [id number] [place] [address] 10079 -7445 Apr, [facility] [id number] [place] [address] 81020 -6922 Apr, Aspiration pneumonia of right lower lobe, unspecified aspiration pneumonia type J69.0 [facility] [address] [place] [address]- 8723 Apr, Severe episode of recurrent major depressive disorder, without psychotic features F33.2 ; Anxiety, generalized F41.1 and Borderline personality disorder in adult F60.3 [facility] [id number] [place] [address] 17577- 1080 Apr, [facility] [address] [place] [address] 33961- 7427 Apr, Chronic pain syndrome G89.4 [facility] [id number] [place] [address] 18845- 7353 Apr, Severe episode of recurrent major depressive disorder, without psychotic features F33.2 ; Anxiety, generalized F41.1 and Borderline personality disorder in adult F60.3 [facility] [place] [address] [place] [address] 32826- 5936 Apr, Severe episode of recurrent major depressive disorder, without psychotic features F33.2 ; Anxiety, generalized F41.1 and Borderline personality disorder in adult F60.3 [facility] [address] [place] [address] 02652- 2917 16 Apr, 2017 Closed nondisplaced fracture of third metatarsal bone of left foot with routine healing, subsequent encounter S92.335D ; Closed nondisplaced fracture of fourth metatarsal bone of left foot with routine healing, subsequent encounter S92.345D and Closed nondisplaced fracture of second metatarsal bone of left foot with routine healing, subsequent encounter S92.325D [facility] [place] [id number] [place] [address] 92399- 5581 Apr, [facility] [id number] [place] [address] 01707- 6369 15 Apr, 2017 [facility] [id number] [place] [address] 87697- 8152 14 Apr, 2017 [facility] [id number] [place] [address] 91924- 7303 13 Apr, 2017 Screening breast examination Z12.31 [facility] [id number] [place] [address] 49533- 7743 09 Apr, 2017 [facility] [id number] [place] [address] 58208- 3714 Apr, Type 2 diabetes mellitus with diabetic autonomic (poly) neuropathy E11.43 [facility] [id number] [place] [address] 46116- 4643 Apr, Severe episode of recurrent major depressive disorder, without psychotic features F33.2 ; Anxiety, generalized F41.1 and Borderline personality disorder in adult F60.3 [facility] [id number] [place] [address] 60881- 7105 06 Apr, 2017 Type 2 diabetes mellitus with diabetic autonomic (poly) neuropathy E11.43 ; Chronic pain syndrome G89.4 and Anxiety F41.9 [facility] [id number] [place] [address] 45343 -4347 Apr, BMI 45.0-49.9, adult Z68.42 [facility] [id number] [place] [address] 19339 -7752 Apr, Avulsion of toenail, initial encounter S91.209A and Acute non-recurrent maxillary sinusitis J01.00 [facility] [id number] [place] [address] 31126- 7090 Apr, [facility] [id number] [place] [address] 92959- 7479 Mar, [facility] [address] 30125- 3885 Mar, Severe episode of recurrent major depressive disorder, without psychotic features F33.2 ; Anxiety, generalized F41.1 and Borderline personality disorder in adult F60.3 [facility] [place] [address] 26281- 4820 Mar, [facility] [address] [address]- 5060 Mar, [facility] [id number] [place] [address] 51148- 6794 Mar, [facility] [id number] [place] [address] 96350- 9542 Mar, Seizure disorder G40.909 [facility] [id number] [place] [address] 02743- 0556 Mar, [facility] [id number] [place] [address] 54059- 8104 Mar, [facility] [id number] [place] [address] 39088 -1251 Mar, Left foot pain M79.672 ; Stage 3 chronic kidney disease N18.3 and Closed nondisplaced fracture of second metatarsal bone of left foot, initial encounter S92.325A [facility] [address] [place] [address] 61018- 4752 Mar, Severe episode of recurrent major depressive disorder, without psychotic features F33.2 and Anxiety, generalized F41.1 [facility] [id number] [place] [address] 80132- 7996 Mar, [facility] [id number] [place] [address] 56125- 3727 Mar, Closed nondisplaced fracture of second metatarsal bone of left foot, initial encounter S92.325A and Closed nondisplaced fracture of third metatarsal bone of left foot, initial encounter S92.335A [facility] [id number] [place] [address] 75158- 4153 Mar, Seizure disorder G40.909 [facility] [id number] [place] [address] 16821- 1795 Mar, [facility] [id number] [address]- 4763 Mar, [facility] [id number] [place] [address] [id number] [phone] Mar, [facility] [id number] [place] [id number] [phone] Mar, [facility] [id number] [place] [address] [id number]- [id number] Mar, High risk sexual behavior Z72.51 [facility] [id number] [place] [address] [address]- [address] Mar, Severe episode of recurrent major depressive disorder, without psychotic features F33.2 and Anxiety, generalized F41.1 [facility] [id number] [place] [address] 84395- 7172 Mar, Anxiety F41.9 and Type 2 diabetes mellitus with diabetic autonomic (poly)neuropathy E11.43 [facility] [id number] [place] [address] 24128- 1104 Mar, Anxiety F41.9 [facility] [id number] [place] [address] 82670- 6938 Mar, High risk sexual behavior Z72.51 [facility] [id number] [place] [address] 11523- 5239 Mar, Chronic pain syndrome G89.4 [facility] [id number] [place] [address] 92390- 5834 Mar, Type 2 diabetes mellitus with diabetic autonomic (poly) neuropathy E11.43 [facility] [id number] [address] Mar, [facility] [id number] [place] [address] 57557- 0966 Mar, Closed nondisplaced fracture of second metatarsal bone of left foot, initial encounter S92.325A ; Chronic pain syndrome G89.4 ; Closed nondisplaced fracture of third metatarsal bone of left foot, initial encounter S92.335A ; Acute left ankle pain M25.572 and Type 2 diabetes mellitus with diabetic autonomic (poly)neuropathy E11.43 [facility] [id number] [place] [address] 52289- 2292 Mar, [facility] [id number] [place] [address] 08864- 0959 Mar, [facility] [address] 75703- 9444 Mar, Severe episode of recurrent major depressive disorder, without psychotic features F33.2 and Anxiety, generalized F41.1 [place] [address] 89597- 4343 27 Feb, 2017 [facility] [id number] [place] [address] 73685- 6776 Feb, Renal insufficiency N28.9 [facility] [id number] [place] [address] 08947- 8069 26 Feb, 2017 [facility] [id number] [place] [address] 26719- 9014 Feb, Severe episode of recurrent major depressive disorder, without psychotic features F33.2 and Anxiety, generalized F41.1 [facility] [id number] [place] [address] 24473- 7127 25 Feb, 2017 [facility] [id number] [place] [address] 36713- 6138 22 Feb, 2017 [facility] [id number] [place] [address] 61643- 0182 20 Feb, 2017 Renal insufficiency N28.9 [facility] [id number] [place] [address] 88356- 1235 19 Feb, 2017 [facility] [id number] [place] [address] 33350 -0992 18 Feb, 2017 [facility] [id number] [place] [address] 70432- 5736 14 Feb, 2017 [facility] [id number] [place] [address] 18710- 0979 13 Feb, 2017 Severe episode of recurrent major depressive disorder, without psychotic features F33.2 and Anxiety, generalized F41.1 [facility] [address] [address]- 1177 13 Feb, 2017 Closed nondisplaced fracture of second metatarsal bone of left foot, initial encounter S92.325A ; Chronic pain syndrome G89.4 ; Closed nondisplaced fracture of third metatarsal bone of left foot, initial encounter S92.335A ; Left hip pain M25.552 and Stage 3 chronic kidney disease N18.3 [place] [id number] [place] [address] 71828- 8364 07 Feb, 2017 [place] [id number] [place] [address] 17727- 0567 Feb, [place] [id number] [place] [address] 07801- 1259 Feb, Closed nondisplaced fracture of second metatarsal bone of left foot, initial encounter S92.325A and Closed nondisplaced fracture of third metatarsal bone of left foot, initial encounter S92.335A [facility] [address] [address]- 5882 Feb, [place] [id number] [place] [address] 54449- 4497 Feb, Anxiety F41.9 [facility] [id number] [place] [address] 81243- 7887 Feb, [place] [id number] [place] [address] 25463- 7708 Feb, Chronic pain syndrome G89.4 [facility] [id number] [place] [address] 85529- 1298 05 Feb, 2017 Left foot pain M79.672 ; Closed nondisplaced fracture of second metatarsal bone of left foot, initial encounter S92.325A ; Closed nondisplaced fracture of third metatarsal bone of left foot, initial encounter S92.335A and Oral infection K12.2 [place] [id number] [place] [address] 24194- 0017 Feb, [place] [id number] [place] [address] 66248- 2028 Jan, [place] [id number] [place] [address] 40236- 5389 Jan, Type 2 diabetes mellitus with diabetic autonomic (poly) neuropathy E11.43 and Congestive heart failure, unspecified congestive heart failure chronicity, unspecified congestive heart failure type I50.9 [place] [id number] [place] [address] 67192- 9532 Jan, Congestive heart failure, unspecified congestive heart failure chronicity, unspecified congestive heart failure type I50.9 and Stage 3 chronic kidney disease N18.3 [place] [id number] [place] [address] 13162- 2961 Jan, Stage 3 chronic kidney disease N18.3 ; Edema of both legs R60.0 ; Chronic congestive heart failure, unspecified congestive heart failure type I50.9 ; Acute low back pain without sciatica, unspecified back pain laterality M54.5 ; Chronic nausea R11.0 and Primary insomnia F51.01 [place] [id number] [place] [address] 19360- 9744 Jan, Severe episode of recurrent major depressive disorder, without psychotic features F33.2 and Anxiety, generalized F41.1 [place] [id number] [place] [address] 24531- 9258 Jan, [place] [id number] [place] [address] 04310- 2595 Jan, [place] [id number] [place] [address] 61135- 4924 Jan, [place] [address] [place] [address]- 2061 Jan, [place] [id number] [place] [address] 81428- 2166 Jan, Anxiety F41.9 and Severe episode of recurrent major depressive disorder, without psychotic features F33.2 [place] [id number] [place] [address] 02339- 1011 Jan, Type 2 diabetes mellitus with diabetic autonomic (poly) neuropathy E11.43 [place] [id number] [place] [address] 37324- 2159 Jan, Severe episode of recurrent major depressive disorder, without psychotic features F33.2 and Type 2 diabetes mellitus with diabetic autonomic (poly)neuropathy E11.43 [place] [id number] [place] [address] 09284- 1134 Jan, [place] [address] 69335- 9732 Jan, [place] [id number] [place] [address] 34905- 8916 Jan, Stage 3 chronic kidney disease N18.3 ; Seizure disorder G40.909 ; Edema of both legs R60.0 and Blister (nonthermal), right foot, initial encounter S90.821A [place] [id number] [place] [address] 06001- 1800 Jan, Severe episode of recurrent major depressive disorder, without psychotic features F33.2 and Anxiety, generalized F41.1 [place] [id number] [place] [address] 56200- 3886 Jan, Severe episode of recurrent major depressive disorder, without psychotic features F33.2 and Anxiety, generalized F41.1 [place] [id number] [place] [address] 91930- 3262 Jan, [place] [id number] [place] [address] 03165- 4284 Jan, Anxiety F41.9 and Primary insomnia F51.01 [address] [place] [address] 78477- 9482 08 Jan, 2017 Type 2 diabetes mellitus with diabetic autonomic (poly) neuropathy E11.43 ; emt 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 ; Stage 3 chronic kidney disease N18.3 ; Chronic pain syndrome G89.4 ; Swelling of mandible R22.0 and Seizure disorder G40.909 [id number] [place] [address] 28527- 3200 Jan, [id number] [place] [address] 87656- 6552 Jan, [place] [id number] [place] [address] 15176- 5152 Dec, Severe episode of recurrent major depressive disorder, without psychotic features F33.2 and Anxiety, generalized F41.1 [place] [id number] [place] [address] 69822- 4444 Dec,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
--- OUTSIDE RECORDS SUMMARY | 2017-12-04 19:49 | XMS REPORT ---
Author Author MIRZA MARTINO Organization [facility], [place] Address [address] [place] [address] Care Team Providers Care Textiles Printer Name Role Phone SALENA MIRZA Unavailable PROBLEMS Type Condition ICD9-CM Code [id number] Code Onset Dates Condition Status SNOMED Code Problem Seasonal allergic rhinitis, unspecified allergic rhinitis trigger J30.2 Active 006762426 Problem Self-inflicted injury Z72.89 Active 931843091 Problem Seizure disorder G40.909 Active 864309470 Problem Postconcussion syndrome F07.81 Active 92668464 Problem Acquired hypothyroidism E03.9 Active 307889054 Problem Closed nondisplaced fracture of second metatarsal bone of left foot, initial encounter S92.325A Active 70947447 Problem Essential hypertension I10 Active 30707987 Problem Port catheter in place Z95.828 Active 468903438 Problem Chronic congestive heart failure, unspecified congestive heart failure type I50.9 Active 81574146 Problem Gastritis determined by endoscopy K29.70 Active 1372971 Problem Multiple neurological symptoms R29.90 Active 265248685 Problem Borderline personality disorder in adult F60.3 Active 68057480 Problem Primary insomnia F51.01 Active 9373614 Problem 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 Active 921666503 Problem Gastroparesis K31.84 Active 949269677 Problem Chronic pain syndrome G89.4 Active 153831158 Problem Anxiety, generalized F41.1 Active 95864406 Problem Type 2 diabetes mellitus with diabetic polyneuropathy E11.42 Active 07879633 Problem Tobacco abuse Z72.0 Active 279151375 Problem Noncompliance with diabetes treatment Z91.19 Active 2017907 Problem Stage 3 chronic kidney disease N18.3 Active 538634592 Problem Severe episode of recurrent major depressive disorder, without psychotic features F33.2 Active 80351405 Problem Postural hypotension I95.1 Active 56446418 ALLERGIES No Information ENCOUNTERS Encounter Location Date Diagnosis [facility] [place] [id number] [address] October, [facility] [place] [id number] [place] [address] 26251- 8624 October, [facility] [place] [id number] [place] [address] 17483- 5697 October, [facility] [place] [id number] [place] [address] 30339- 3959 October, [facility] [place] [id number] [place] [address] 88697- 1929 Sep, [facility] [id number] [place] [address] 92677 -4446 Sep, [facility] [id number] [place] [address] 63117 -0660 Sep, Neck pain M54.2 ; Strain of lumbar region, initial encounter S39.012A and Postconcussion syndrome F07.81 [facility] [place] [id number] [place] [address] 52696- 6700 Sep, [facility] [place] [id number] [place] [address] 02610- 9858 Sep, Severe episode of recurrent major depressive disorder, without psychotic features F33.2 ; Anxiety, generalized F41.1 and Borderline personality disorder in adult F60.3 [facility] [place] [id number] [place] [address] 95507- 4785 Sep, [facility] [place] [id number] [place] [address] 45728- 1071 Sep, Throat pain R07.0 ; BMI 40.0-44.9, adult Z68.41 and Chronic pain syndrome G89.4 [facility] [place] [id number] [place] [address] 02303- 7064 Sep, [facility] [place] [id number] [place] [address] 15681- 2290 Sep, [facility] [place] [id number] [address] 8123 Sep, [facility] [place] [id number] [place] [address] 56629- 0953 Sep, Anxiety, generalized F41.1 [facility] [place] [address] [address] 9590 Sep, [facility] [place] [id number] [place] [address] 88272- 7984 Sep, Stage 3 chronic kidney disease N18.3 [facility] [place] [id number] [place] [address] 92559- 5486 Sep, Stage 3 chronic kidney disease N18.3 and Chronic pain syndrome G89.4 [facility] [place] [id number] [place] [address] 90712- 7427 Sep, Severe episode of recurrent major depressive disorder, without psychotic features F33.2 ; Anxiety, generalized F41.1 and Borderline personality disorder in adult F60.3 [facility] [place] [id number] [place] [address] 23288- 3454 Sep, Chronic pain syndrome G89.4 ; Anxiety, generalized F41.1 and BMI 45.0-49.9, adult Z68.42 [facility] [place] [address] [address] 3601 Sep, [facility] [place] [id number] [place] [address] 72646- 9840 Sep, [facility] [place] [id number] [place] [address] 95089- 1873 Sep, Severe episode of recurrent major depressive disorder, without psychotic features F33.2 ; Anxiety, generalized F41.1 and Borderline personality disorder in adult F60.3 [facility] [place] [address] [address] 4174 Sep, [facility] [id number] [place] [address] 07132 -0081 2017 Dysuria R30.0 ; Type 2 diabetes mellitus with diabetic polyneuropathy E11.42 ; Oral abscess K12.2 and BMI 40.0-44.9, adult Z68.41 [facility] [place] [id number] [place] [address] 19433- 3202 30 Aug, 2017 [facility] [place] [id number] [place] [address] 65159- 6111 Aug, [facility] [place] [id number] [place] [address] 02541- 8585 Aug, [facility] [place] [id number] [place] [address] 44534- 9073 Aug, [facility] [place] [id number] [place] [address] 84758- 0819 Aug, Severe episode of recurrent major depressive disorder, without psychotic features F33.2 ; Anxiety, generalized F41.1 and Borderline personality disorder in adult F60.3 [facility] [place] [id number] [place] [address] 05496- 7777 22 Aug, 2017 [facility] [place] [id number] [place] [address] 67790- 8393 20 Aug, 2017 [facility] [place] [id number] [place] [address] 38661- 6687 Aug, Severe episode of recurrent major depressive disorder, without psychotic features F33.2 ; Anxiety, generalized F41.1 and Borderline personality disorder in adult F60.3 [facility] [address] [address]4070 17 Aug, 2017 [facility] [place] [id number] [place] [address] 72274- 7664 15 Aug, 2017 [facility] [place] [id number] [place] [address] 19421- 7086 14 Aug, 2017 [facility] [id number] [place] [address] 34012 -2985 Aug, Dysuria R30.0 ; Dental infection K04.7 ; Acute cystitis with hematuria N30.01 and BMI 45.0-49.9, adult Z68.42 [facility] [place] [id number] [place] [address] 03200- 1468 14 Aug, 2017 Severe episode of recurrent major depressive disorder, without psychotic features F33.2 ; Anxiety, generalized F41.1 and Borderline personality disorder in adult F60.3 [facility] [place] [id number] [place] [address] 26474- 0503 Aug, [facility] [place] [id number] [place] [address] 25842- 0685 Aug, Closed nondisplaced fracture of second metatarsal bone of left foot, initial encounter S92.325A and Chronic pain syndrome G89.4 [facility] [place] [id number] [place] [address] 56485- 8252 Aug, Type 2 diabetes mellitus with diabetic polyneuropathy E11.42 [facility] [place] [id number] [place] [address] 20296- 4633 08 Aug, 2017 Severe episode of recurrent major depressive disorder, without psychotic features F33.2 ; Anxiety, generalized F41.1 and Borderline personality disorder in adult F60.3 [facility] [place] [id number] [place] [address] 64546- 6355 Aug, [facility] [place] [id number] [place] [address] 09365- 4652 Aug, [facility] [place] [id number] [place] [address] 68128- 6281 Aug, [facility] [place] [id number] [place] [address] 87577- 2535 Aug, [facility] [place] [id number] [place] [address] 90384- 0070 Aug, [facility] [place] [id number] [place] [address] 57198- 5315 Jul, [facility] [id number] [place] [address] 77180- 0149 Jul, [facility] [id number] [place] [address] 81203- 9908 Jul, Severe episode of recurrent major depressive disorder, without psychotic features F33.2 ; Anxiety, generalized F41.1 and Borderline personality disorder in adult F60.3 [facility] [id number] [place] [address] 63303- 9937 Jul, Type 2 diabetes mellitus with diabetic polyneuropathy E11.42 [facility] [address] 90254- 7062 Jul, Closed nondisplaced fracture of second metatarsal bone of left foot, initial encounter S92.325A and Closed nondisplaced fracture of third metatarsal bone of left foot, initial encounter S92.335A [facility] [id number] [place] [address] 62622- 6949 Jul, [facility] [id number] [place] [address] 19002- 9590 Jul, Closed nondisplaced fracture of second metatarsal bone of left foot, initial encounter S92.325A ; Acute left ankle pain M25.572 ; Acute midline low back pain without sciatica M54.5 and Seasonal allergic rhinitis, unspecified allergic rhinitis trigger J30.2 [facility] [id number] [place] [address] 12109- 1018 Jul, [facility] [id number] [place] [address] 30544- 0218 Jul, [facility] [id number] [place] [address] 54157- 8046 Jul, [facility] [id number] [place] [address] 02746- 3832 Jul, Frequent falls R29.6 [facility] [id number] [place] [address] 10291- 6034 14 Jul, 2017 Frequent falls R29.6 [facility] [address] 05055- 3864 07 Jul, 2017 Severe episode of recurrent major depressive disorder, without psychotic features F33.2 ; Anxiety, generalized F41.1 and Borderline personality disorder in adult F60.3 [facility] [id number] [place] [address] 03455- 3054 07 Jul, 2017 Chronic pain syndrome G89.4 [facility] [id number] [place] [address] 73518- 3818 07 Jul, 2017 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 [facility] [id number] [place] [address] 19343- 6574 05 Jul, 2017 [place] [address] 47919- 6450 Jul, Type 2 diabetes mellitus with diabetic polyneuropathy E11.42 [facility] [id number] [place] [address] 00542- 3627 Jun, shelter 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 and Thrush B37.0 [facility] [id number] [place] [address] 61401- 0555 Jun, Severe episode of recurrent major depressive disorder, without psychotic features F33.2 ; Anxiety, generalized F41.1 and Borderline personality disorder in adult F60.3 [facility] [id number] [place] [address] 78405- 0346 Jun, Severe episode of recurrent major depressive disorder, without psychotic features F33.2 ; Anxiety, generalized F41.1 and Borderline personality disorder in adult F60.3 [facility] [id number] [place] [address] 61316- 7541 Jun, Frequent falls R29.6 ; Bronchitis J40 ; BMI 40.0-44.9, adult Z68.41 and Coccygeal pain, acute M53.3 [facility] [place] [address] [address]- 4825 Jun, [facility] [id number] [place] [address] 72788 -6159 Jun, [facility] [place] [id number] [place] [address] 85709- 0896 Jun, [facility] [place] [id number] [place] [address] 62809- 8139 Jun, Dental caries, unspecified K02.9 [facility] [place] [id number] [place] [address] 40363- 9587 Jun, Acute non-recurrent maxillary sinusitis J01.00 and BMI 40.0- 44.9, adult Z68.41 [facility] [place] [id number] [place] [address] 50221- 3628 Jun, [facility] [place] [id number] [place] [address] 86322- 3979 Jun, Severe episode of recurrent major depressive disorder, without psychotic features F33.2 ; Anxiety, generalized F41.1 and Borderline personality disorder in adult F60.3 [facility] [place] [id number] [place] [address] 33885- 1876 11 Jun, 2017 Closed nondisplaced fracture of third metatarsal bone of left foot with routine healing, subsequent encounter S92.335D ; Closed nondisplaced fracture of second metatarsal bone of left foot with routine healing, subsequent encounter S92.325D and Closed nondisplaced fracture of fourth metatarsal bone of left foot with routine healing, subsequent encounter S92.345D [facility] [id number] [place] [address] 89911- 4442 Jun, Severe episode of recurrent major depressive disorder, without psychotic features F33.2 ; Anxiety, generalized F41.1 and Borderline personality disorder in adult F60.3 [facility] [place] [id number] [place] [address] 39330- 3622 Jun, [facility] [place] [id number] [place] [address] 74305- 0859 Jun, [facility] [place] [id number] [place] [address] 85589- 4939 Jun, [facility] [place] [id number] [place] [address] 61412- 0599 Jun, [facility] [place] [id number] [place] [address] 34214- 6209 Jun, [facility] [id number] [place] [address] 99066- 9231 Jun, Anxiety F41.9 [facility] [id number] [place] [address] 00919- 9427 Jun, [facility] [id number] [place] [address] 71050- 0040 Jun, [facility] [id number] [place] [address] 76917- 8850 Jun, Type 2 diabetes mellitus with diabetic autonomic (poly) neuropathy E11.43 [facility] [id number] [place] [address] 34717- 3473 Jun, Severe episode of recurrent major depressive disorder, without psychotic features F33.2 ; Anxiety, generalized F41.1 and Borderline personality disorder in adult F60.3 [facility] [id number] [place] [address] 28673- 9958 Jun, Type 2 diabetes mellitus with diabetic autonomic (poly) neuropathy E11.43 and Chronic pain syndrome G89.4 [facility] [id number] [place] [address] 10691- 7577 May, 2017 Recent urinary tract infection Z87.440 ; Deliberate self- cutting Z72.89 ; Chest discomfort R07.89 ; BMI 40.0-44.9, adult Z68.41 and Worried well Z71.1 [facility] [id number] [place] [address] 41313- 2144 May, Severe episode of recurrent major depressive disorder, without psychotic features F33.2 ; Anxiety, generalized F41.1 and Borderline personality disorder in adult F60.3 [facility] [id number] [place] [address] 74030- 3707 May, [facility] [id number] [place] [address] 04931- 7451 May, [facility] [id number] [place] [address] 52978- 3505 May, Type 2 diabetes mellitus with diabetic autonomic (poly) neuropathy E11.43 [facility] [id number] [place] [address] 01099- 8157 May, Severe episode of recurrent major depressive disorder, without psychotic features F33.2 ; Anxiety, generalized F41.1 and Borderline personality disorder in adult F60.3 [facility] [id number] [place] [address] 06607- 9948 May, [facility] [id number] [place] [address] 55002- 7633 May, Type 2 diabetes mellitus with diabetic autonomic (poly) neuropathy E11.43 ; Multiple neurological symptoms R29.90 ; Dysuria R30.0 ; Tobacco abuse Z72.0 ; Right hip pain M25.551 ; Anxiety F41.9 ; Gastritis determined by endoscopy K29.70 ; Chronic pain syndrome G89.4 ; Acute non- recurrent maxillary sinusitis J01.00 ; Self mutilating behavior Z72.89 and BMI 40.0-44.9, adult Z68.41 [facility] [id number] [place] [address] 66818- 8507 May, Severe episode of recurrent major depressive disorder, without psychotic features F33.2 ; Anxiety, generalized F41.1 and Borderline personality disorder in adult F60.3 [facility] [id number] [place] [address] 35585- 6432 Apr, [address] [place] [address]- 6452 Apr, [facility] [id number] [place] [address] 31767 -0842 Apr, [facility] [id number] [place] [address] 52102 -0972 Apr, Aspiration pneumonia of right lower lobe, unspecified aspiration pneumonia type J69.0 [facility] [id number] [place] [address] 63165- 9076 Apr, Severe episode of recurrent major depressive disorder, without psychotic features F33.2 ; Anxiety, generalized F41.1 and Borderline personality disorder in adult F60.3 [facility] [id number] [place] [address] 12293- 7152 Apr, [facility] [id number] [place] [address] 56684- 6801 Apr, Chronic pain syndrome G89.4 [facility] [id number] [place] [address] 34854- 7590 Apr, Severe episode of recurrent major depressive disorder, without psychotic features F33.2 ; Anxiety, generalized F41.1 and Borderline personality disorder in adult F60.3 [facility] [id number] [place] [address] 72416- 5099 Apr, Severe episode of recurrent major depressive disorder, without psychotic features F33.2 ; Anxiety, generalized F41.1 and Borderline personality disorder in adult F60.3 [facility] [id number] [place] [address] 23386- 3042 Apr, Closed nondisplaced fracture of third metatarsal bone of left foot with routine healing, subsequent encounter S92.335D ; Closed nondisplaced fracture of fourth metatarsal bone of left foot with routine healing, subsequent encounter S92.345D and Closed nondisplaced fracture of second metatarsal bone of left foot with routine healing, subsequent encounter S92.325D [facility] [id number] [place] [address] 93798- 9934 16 Apr, 2017 [place] [id number] [place] [address] 64593- 9429 15 Apr, 2017 [facility] [facility] [address] 04046- 8933 14 Apr, 2017 [place] [address] 68334- 6814 13 Apr, 2017 Screening breast examination Z12.31 [facility] [address] 34075- 9716 09 Apr, 2017 [place] [address] 79451- 9651 07 Apr, 2017 Type 2 diabetes mellitus with diabetic autonomic (poly) neuropathy E11.[address] 80922- 7733 07 Apr, 2017 Severe episode of recurrent major depressive disorder, without psychotic features F33.2 ; Anxiety, generalized F41.1 and Borderline personality disorder in adult F60.[address] 95596- 8560 Apr, Type 2 diabetes mellitus with diabetic autonomic (poly) neuropathy E11.43 ; Chronic pain syndrome G89.4 and Anxiety F41.9 [facility] [address] [place] [address] 69836 -5178 Apr, BMI 45.0-49.9, adult Z68.42 [facility] [address] [place] [address] 36715 -6227 Apr, Avulsion of toenail, initial encounter S91.209A and Acute non-recurrent maxillary sinusitis J01.[address] 47895- 6097 Apr, [facility] [id number] [place] [address] 27895- 6086 Mar, [facility] [address] 83697- 1866 Mar, Severe episode of recurrent major depressive disorder, without psychotic features F33.2 ; Anxiety, generalized F41.1 and Borderline personality disorder in adult F60.3 [facility] [place] [address] [address]- 5745 Mar, [facility] [place] [address] [address]- 6012 Mar, [facility] [place] [id number] [place] [address] 62510- 6766 Mar, [facility] [place] [id number] [place] [address] 71101- 5059 Mar, Seizure disorder G40.909 [facility] [place] [id number] [place] [address] 22536- 4507 Mar, [facility] [place] [id number] [place] [address] 71896- 3091 Mar, [facility] [id number] [place] [address] 77152 -1598 Mar, Left foot pain M79.672 ; Stage 3 chronic kidney disease N18.3 and Closed nondisplaced fracture of second metatarsal bone of left foot, initial encounter S92.325A [facility] [place] [id number] [place] [address] 13669- 9181 Mar, Severe episode of recurrent major depressive disorder, without psychotic features F33.2 and Anxiety, generalized F41.1 [facility] [place] [id number] [place] [address] 76231- [phone] Mar, [facility], [place] [id number] [place] [address] [phone] Mar, Closed nondisplaced fracture of second metatarsal bone of left foot, initial encounter S92.325A and Closed nondisplaced fracture of third metatarsal bone of left foot, initial encounter S92.335A [facility], [place] [id number] [place] [address] [phone]- [phone] Mar, Seizure disorder G40.909 [facility], [place] [id number] [place] [address] [phone] Mar, [facility], [place] [id number] [place] [address] [phone] Mar, [facility], [place] [id number] [place] [address] [phone] Mar, [facility], [place] [id number] [place] [address] 05844- 8332 Mar, [facility], [place] [id number] [place] [address] 35272- 8524 Mar, High risk sexual behavior Z72.51 [facility], [place] [id number] [place] [address] 17347- 4217 Mar, Severe episode of recurrent major depressive disorder, without psychotic features F33.2 and Anxiety, generalized F41.1 [facility] [facility] [id number] [place] [address] 79062- 4235 Mar, Anxiety F41.9 and Type 2 diabetes mellitus with diabetic autonomic (poly)neuropathy E11.43 [facility], [place] [id number] [place] [address] 20371- 1716 Mar, Anxiety F41.9 [facility], [place] [id number] [place] [address] 62725- 9282 Mar, High risk sexual behavior Z72.51 [facility], [place] [id number] [place] [address] 69155- 0632 Mar, Chronic pain syndrome G89.4 [facility], [place] [id number] [place] [address] 38093- 1744 Mar, Type 2 diabetes mellitus with diabetic autonomic (poly) neuropathy E11.43 [facility], [place] [id number] [place] [address] 35897- 9704 Mar, [facility], [place] [id number] [place] [address] 89531- 8329 Mar, Closed nondisplaced fracture of second metatarsal bone of left foot, initial encounter S92.325A ; Chronic pain syndrome G89.4 ; Closed nondisplaced fracture of third metatarsal bone of left foot, initial encounter S92.335A ; Acute left ankle pain M25.572 and Type 2 diabetes mellitus with diabetic autonomic (poly)neuropathy E11.43 [facility] [id number] [place] [address] 04936- 0340 Mar, [place] [address] 76240- 6635 Mar, [facility] [id number] [place] [address] 98660- 5717 Mar, Severe episode of recurrent major depressive disorder, without psychotic features F33.2 and Anxiety, generalized F41.1 [place] [id number] [place] [address] 31623- 4406 Feb, [facility] [id number] [place] [address] 33995- 7113 Feb, Renal insufficiency N28.9 [facility] [id number] [place] [address] 45053- 3861 Feb, [facility] [facility] [id number] [place] [address] 29535- 3146 Feb, Severe episode of recurrent major depressive disorder, without psychotic features F33.2 and Anxiety, generalized F41.1 [facility] [facility] [id number] [place] [address] 18314- 8520 Feb, [facility] [facility] [id number] [place] [address] 34804- 4937 Feb, [facility] [id number] [place] [address] 12656- 7268 Feb, Renal insufficiency N28.9 [place] [id number] [place] [address] 77004- 7429 19 Feb, 2017 [facility] [address] [facility] [id number] [address] 18 Feb, 2017 [facility], [place] [id number] [place] [address] 98597- 0114 14 Feb, 2017 [facility], [place] [id number] [place] [address] 99791- 5410 13 Feb, 2017 Severe episode of recurrent major depressive disorder, without psychotic features F33.2 and Anxiety, generalized F41.1 [facility], [place] [id number] [place] [address] 54326- 9170 13 Feb, 2017 Closed nondisplaced fracture of second metatarsal bone of left foot, initial encounter S92.325A ; Chronic pain syndrome G89.4 ; Closed nondisplaced fracture of third metatarsal bone of left foot, initial encounter S92.335A ; Left hip pain M25.552 and Stage 3 chronic kidney disease N18.3 [facility], [place] [address] [address]- 3591 07 Feb, 2017 [facility], [place] [id number] [place] [address] 67647- 3542 Feb, [facility], [place] [id number] [place] [address] 82809- 8387 Feb, Closed nondisplaced fracture of second metatarsal bone of left foot, initial encounter S92.325A and Closed nondisplaced fracture of third metatarsal bone of left foot, initial encounter S92.335A [facility] [place] [id number] [address]- 9429 Feb, [facility], [place] [id number] [place] [address] 47504- 4267 Feb, Anxiety F41.9 [facility], [place] [id number] [place] [address] 88459- 7299 06 Feb, 2017 [facility], [place] [id number] [place] [address] 53593- 1298 Feb, Chronic pain syndrome G89.4 [place] [id number] [place] [address] 48804- 7561 Feb, Left foot pain M79.672 ; Closed nondisplaced fracture of second metatarsal bone of left foot, initial encounter S92.325A ; Closed nondisplaced fracture of third metatarsal bone of left foot, initial encounter S92.335A and Oral infection K12.2 [place] [id number] [place] [address] 85891- 4102 Feb, [facility] [id number] [place] [address] 23788- 1886 Jan, [place] [id number] [place] [address] 83795- 6331 Jan, Type 2 diabetes mellitus with diabetic autonomic (poly) neuropathy E11.43 and Congestive heart failure, unspecified congestive heart failure chronicity, unspecified congestive heart failure type I50.9 [facility] [facility] [id number] [place] [address] 38817- 4704 Jan, Congestive heart failure, unspecified congestive heart failure chronicity, unspecified congestive heart failure type I50.9 and Stage 3 chronic kidney disease N18.3 [place] [id number] [place] [address] 30873- 9825 Jan, Stage 3 chronic kidney disease N18.3 ; Edema of both legs R60.0 ; Chronic congestive heart failure, unspecified congestive heart failure type I50.9 ; Acute low back pain without sciatica, unspecified back pain laterality M54.5 ; Chronic nausea R11.0 and Primary insomnia F51.01 [place] [id number] [place] [address] 46950- 6435 Jan, Severe episode of recurrent major depressive disorder, without psychotic features F33.2 and Anxiety, generalized F41.1 [place] [id number] [place] [address] 88681- 3371 Jan, [place] [address] [address]- 4237 Jan, [facility], [place] [id number] [place] [address] 24963- 9888 Jan, [facility], [place] [id number] [place] [address] 06685- 3931 Jan, [facility], [place] [id number] [place] [address] 50114- 0296 Jan, Anxiety F41.9 and Severe episode of recurrent major depressive disorder, without psychotic features F33.2 [facility], [place] [id number] [place] [address] 67310- 8070 Jan, Type 2 diabetes mellitus with diabetic autonomic (poly) neuropathy E11.43 [facility], [place] [id number] [place] [address] 64641- 7590 Jan, Severe episode of recurrent major depressive disorder, without psychotic features F33.2 and Type 2 diabetes mellitus with diabetic autonomic (poly)neuropathy E11.43 [facility], [place] [id number] [place] [address] 15984- 0239 Jan, [facility], [place] [id number] [place] [address] 36424- 9911 Jan, [facility], [place] [id number] [place] [address] 07724- 6003 Jan, Stage 3 chronic kidney disease N18.3 ; Seizure disorder G40.909 ; Edema of both legs R60.0 and Blister (nonthermal), right foot, initial encounter S90.821A [facility],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
--- OUTSIDE RECORDS SUMMARY | 2017-12-04 19:50 | XMS REPORT ---
Author Author MIRZA MARTINO Organization [facility] Address [address] [place] [address] Care Team Providers Care Yard Supervisor Cotton Gin Name Role Phone HAIMLindsey MIRZA Unavailable PROBLEMS Type Condition ICD9-CM Code ZAE49-AS Code Onset Dates Condition Status SNOMED Code Problem Postural hypotension I95.1 Active 24136241 Problem Seizure disorder G40.909 Active 717586013 Problem Seasonal allergic rhinitis, unspecified allergic rhinitis trigger J30.2 Active 430738796 Problem Closed nondisplaced fracture of second metatarsal bone of left foot, initial encounter S92.325A Active 99419137 Problem Essential hypertension I10 Active 77572541 Problem Multiple neurological symptoms R29.90 Active 117129519 Problem Port catheter in place Z95.828 Active 661799259 Problem Stage 3 chronic kidney disease N18.3 Active 627180814 Problem Gastritis determined by endoscopy K29.70 Active 5114851 Problem Self-inflicted injury Z72.89 Active 613465287 Problem Borderline personality disorder in adult F60.3 Active 53719771 Problem Chronic congestive heart failure, unspecified congestive heart failure type I50.9 Active 35134953 Problem Chronic pain syndrome G89.4 Active 021123615 Problem Primary insomnia F51.01 Active 9347617 Problem Acquired hypothyroidism E03.9 Active 475023412 Problem Gastroparesis K31.84 Active 476691057 Problem Severe episode of recurrent major depressive disorder, without psychotic features F33.2 Active 79490133 Problem Anxiety, generalized F41.1 Active 27480051 Problem 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 Active 809623718 Problem Type 2 diabetes mellitus with diabetic polyneuropathy E11.42 Active 65872830 Problem Tobacco abuse Z72.0 Active 673762731 Problem Noncompliance with diabetes treatment Z91.19 Active 0130531 ALLERGIES No Information ENCOUNTERS Encounter Location Date Diagnosis [facility] [id number], [place] [address] October, [facility] [address], [place] [address] October, [facility] [id number] [place] [address] 264241- 0290 October, [facility] [id number] [id number] Sep, [facility] [id number] [place] [address] 10157- 2949 Sep, [facility] [id number] [place] [address] 57748- 9864 Sep, [facility] [id number] [place] [address] 99229- 5828 Sep, Throat pain R07.0 and BMI 40.0-44.9, adult Z68.41 [facility] [id number] [place] [address] 96877- 6630 Sep, [facility] [id number] [place] [address] 18904- 1357 Sep, [facility] [id number] [place] [address] 44977- 5216 Sep, [facility] [id number] [place] [address] 05869- 3807 Sep, Anxiety, generalized F41.1 [facility] [id number] [place] [address] 72510- 2342 Sep, [facility] [id number] [place] [address] 23389- 8137 Sep, Stage 3 chronic kidney disease N18.3 [facility] [address] [place] [address] 35482- 0793 Sep, Stage 3 chronic kidney disease N18.3 and Chronic pain syndrome G89.4 [facility] [id number] [place] [address] 21967- 0017 Sep, Severe episode of recurrent major depressive disorder, without psychotic features F33.2 ; Anxiety, generalized F41.1 and Borderline personality disorder in adult F60.3 [facility] [id number] [place] [address] 78830- 9470 Sep, Chronic pain syndrome G89.4 ; Anxiety, generalized F41.1 and BMI 45.0-49.9, adult Z68.42 [facility] [id number] [place] [address] 84567- 6876 Sep, [facility] [id number] [place] [address] 44051- 1561 Sep, [facility] [id number] [place] [address] 61810- 6004 Sep, Severe episode of recurrent major depressive disorder, without psychotic features F33.2 ; Anxiety, generalized F41.1 and Borderline personality disorder in adult F60.3 [facility] [id number] [place] [address] 60712- 8468 Sep, [facility] [id number] [place] [address] 51611 -6658 Aug, Dysuria R30.0 ; Type 2 diabetes mellitus with diabetic polyneuropathy E11.42 ; Oral abscess K12.2 and BMI 40.0-44.9, adult Z68.41 [facility] [id number] [place] [address] 90194- 8283 Aug, [facility] [id number] [place] [address] 01366- 7322 Aug, [facility] [id number] [place] [address] 09466- 0613 Aug, [facility] [id number] [place] [address] 53177- 2138 Aug, [facility] [id number] [place] [address] 25927- 1368 Aug, Severe episode of recurrent major depressive disorder, without psychotic features F33.2 ; Anxiety, generalized F41.1 and Borderline personality disorder in adult F60.3 [facility] [id number] [place] [address] 08879- 9289 22 Aug, 2017 [facility] [id number] [place] [address] 73411- 2986 20 Aug, 2017 [facility] [id number] [place] [address] 23844- 7392 19 Aug, 2017 Severe episode of recurrent major depressive disorder, without psychotic features F33.2 ; Anxiety, generalized F41.1 and Borderline personality disorder in adult F60.3 [facility] [id number] [place] [address] 22217 -8731 17 Aug, 2017 [place] [id number] [place] [address] 86040- 4888 15 Aug, 2017 [place] [id number] [place] [address] 14631- 4727 14 Aug, 2017 [facility] [address] [place] [address] 61273 -4979 14 Aug, 2017 Dysuria R30.0 ; Dental infection K04.7 ; Acute cystitis with hematuria N30.01 and BMI 45.0-49.9, adult Z68.42 [facility] [id number] [place] [address] 13572- 7985 14 Aug, 2017 Severe episode of recurrent major depressive disorder, without psychotic features F33.2 ; Anxiety, generalized F41.1 and Borderline personality disorder in adult F60.3 [facility] [address] [place] [address] 44052- 3580 09 Aug, 2017 [place] [id number] [place] [address] 21619- 7407 08 Aug, 2017 Closed nondisplaced fracture of second metatarsal bone of left foot, initial encounter S92.325A and Chronic pain syndrome G89.4 [facility] [facility] [id number] [address] 0274 08 Aug, 2017 Type 2 diabetes mellitus with diabetic polyneuropathy E11.42 [facility] [address], [place] [address] Aug, Severe episode of recurrent major depressive disorder, without psychotic features F33.2 ; Anxiety, generalized F41.1 and Borderline personality disorder in adult F60.3 [facility] [address], [place] [address]- 1787 07 Aug, 2017 [facility] [address], [place] [address] 5108 Aug, [facility] [address], [place] [address] 9526 Aug, [facility] [address], [place] [address] 6218 Aug, [facility] [address], [place] [address]- 7468 Aug, [facility] [address], [place] [address]- 8096 Jul, [facility] [address], [place] [address]- 9313 Jul, [facility] [address], [place] [address]- 9499 Jul, Severe episode of recurrent major depressive disorder, without psychotic features F33.2 ; Anxiety, generalized F41.1 and Borderline personality disorder in adult F60.3 [facility] [id number], [place] [address]- 9314 Jul, Type 2 diabetes mellitus with diabetic polyneuropathy E11.42 [facility] [id number], [place] [address] 7595 Jul, Closed nondisplaced fracture of second metatarsal bone of left foot, initial encounter S92.325A and Closed nondisplaced fracture of third metatarsal bone of left foot, initial encounter S92.335A [facility] [id number] [place] [address] 06415- 2620 Jul, [facility] [id number] [place] [address] 20295- 7161 20 Jul, 2017 Closed nondisplaced fracture of second metatarsal bone of left foot, initial encounter S92.325A ; Acute left ankle pain M25.572 ; Acute midline low back pain without sciatica M54.5 and Seasonal allergic rhinitis, unspecified allergic rhinitis trigger J30.2 [facility] [id number] [place] [address] 55167- 5693 Jul, [place] [id number] [place] [address] 16126- 6088 19 Jul, 2017 [place] [id number] [place] [address] 60785- 8269 15 Jul, 2017 [place] [id number] [place] [address] 30264- 1218 15 Jul, 2017 Frequent falls R29.6 [place] [id number] [place] [address] 65304- 0030 14 Jul, 2017 Frequent falls R29.6 [place] [id number] [place] [address] 57319- 4172 07 Jul, 2017 Severe episode of recurrent major depressive disorder, without psychotic features F33.2 ; Anxiety, generalized F41.1 and Borderline personality disorder in adult F60.3 [place] [address] [place] [address] 12236- 7637 07 Jul, 2017 Chronic pain syndrome G89.4 [place] [id number] [place] [address] 48710- 7920 07 Jul, 2017 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 [place] [id number] [place] [address] 31851- 6740 05 Jul, 2017 [place] [id number] [place] [address] 81129- 2243 Jul, Type 2 diabetes mellitus with diabetic polyneuropathy E11.42 [place] [address] 15448- 6128 Jun, 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 and Thrush B37.0 [place] [address] 49720- 9033 Jun, Severe episode of recurrent major depressive disorder, without psychotic features F33.2 ; Anxiety, generalized F41.1 and Borderline personality disorder in adult F60.3 [place] [address] 84665- 5552 Jun, Severe episode of recurrent major depressive disorder, without psychotic features F33.2 ; Anxiety, generalized F41.1 and Borderline personality disorder in adult F60.3 [place] [address] 77429- 0135 Jun, Frequent falls R29.6 ; Bronchitis J40 ; BMI 40.0-44.9, adult Z68.41 and Coccygeal pain, acute M53.3 [place] [address] 66519- 6946 Jun, [facility] [id number] [place] [address] 73951 -9660 Jun, [facility] [address] 77662- 2011 Jun, [place] [id number] [place] [address] 99349- 4090 Jun, Dental caries, unspecified K02.9 [place] [id number] [place] [address] 52607- 0025 Jun, Acute non-recurrent maxillary sinusitis J01.00 and BMI 40.0- 44.9, adult Z68.41 [place] [address] [place] [address]- 9674 Jun, [facility] [id number], [place] [address] 2546 Jun, Severe episode of recurrent major depressive disorder, without psychotic features F33.2 ; Anxiety, generalized F41.1 and Borderline personality disorder in adult F60.3 [facility] [id number], [place] [address]- 2546 11 Jun, 2017 Closed nondisplaced fracture of third metatarsal bone of left foot with routine healing, subsequent encounter S92.335D ; Closed nondisplaced fracture of second metatarsal bone of left foot with routine healing, subsequent encounter S92.325D and Closed nondisplaced fracture of fourth metatarsal bone of left foot with routine healing, subsequent encounter S92.345D [facility] [address], [place] [address]- 3607 Jun, Severe episode of recurrent major depressive disorder, without psychotic features F33.2 ; Anxiety, generalized F41.1 and Borderline personality disorder in adult F60.3 [facility] [address], [place] [address]- 5816 Jun, [facility] [address] [place] [address] 61327- 8764 Jun, [facility] [address], [place] [address]- 9172 Jun, [facility] [address] [place] [address] 74397 2545 Jun, [facility] [address], [place] [address]- 5296 Jun, [facility] [id number] [place] [address] 21888- 3006 Jun, Anxiety F41.9 [facility] [address] [place] [address] 70299- 3351 Jun, [facility] [id number] [place] [address] 40878- 1692 Jun, [place] [id number] [place] [address] 17127- 6852 Jun, Type 2 diabetes mellitus with diabetic autonomic (poly) neuropathy E11.43 [place] [id number] [place] [address] 16360- 4289 Jun, Severe episode of recurrent major depressive disorder, without psychotic features F33.2 ; Anxiety, generalized F41.1 and Borderline personality disorder in adult F60.3 [place] [id number] [place] [address] 47581- 3760 Jun, Type 2 diabetes mellitus with diabetic autonomic (poly) neuropathy E11.43 and Chronic pain syndrome G89.4 [place] [id number] [place] [address] 58695- 8600 20 May, 2017 Recent urinary tract infection Z87.440 ; Deliberate self- cutting Z72.89 ; Chest discomfort R07.89 ; BMI 40.0-44.9, adult Z68.41 and Worried well Z71.1 [place] [id number] [place] [address] 60163- 4328 19 May, 2017 Severe episode of recurrent major depressive disorder, without psychotic features F33.2 ; Anxiety, generalized F41.1 and Borderline personality disorder in adult F60.3 [place] [address] [place] [address] 46417- 6304 18 May, 2017 [place] [id number] [place] [address] 32580- 1601 May, [place] [id number] [place] [address] 46989- 5799 May, Type 2 diabetes mellitus with diabetic autonomic (poly) neuropathy E11.43 [place] [address] [place] [address] 91514- 1958 May, Severe episode of recurrent major depressive disorder, without psychotic features F33.2 ; Anxiety, generalized F41.1 and Borderline personality disorder in adult F60.3 [place] [id number] [place] [address] 77610- 1383 May, [place] [address] 66296- 6611 May, Type 2 diabetes mellitus with diabetic autonomic (poly) neuropathy E11.43 ; Multiple neurological symptoms R29.90 ; Dysuria R30.0 ; Tobacco abuse Z72.0 ; Right hip pain M25.551 ; Anxiety F41.9 ; Gastritis determined by endoscopy K29.70 ; Chronic pain syndrome G89.4 ; Acute non- recurrent maxillary sinusitis J01.00 ; Self mutilating behavior Z72.89 and BMI 40.0-44.9, adult Z68.41 [place] [id number] [place] [address] 47340- 5005 May, Severe episode of recurrent major depressive disorder, without psychotic features F33.2 ; Anxiety, generalized F41.1 and Borderline personality disorder in adult F60.3 [place] [id number] [place] [address] 31347- 2566 Apr, [place] [id number] [place] [address] 79682- 5610 Apr, [facility] [id number] [place] [address] 94527 -0215 Apr, [facility] [id number] [place] [address] 93065 -5948 Apr, Aspiration pneumonia of right lower lobe, unspecified aspiration pneumonia type J69.0 [place] [id number] [place] [address] 74413- 2589 Apr, Severe episode of recurrent major depressive disorder, without psychotic features F33.2 ; Anxiety, generalized F41.1 and Borderline personality disorder in adult F60.3 [place] [id number] [place] [address] 51404- 1200 Apr, [place] [address] 78079- 9313 Apr, Chronic pain syndrome G89.4 [facility] [id number] [place] [address] 57787- 8861 Apr, Severe episode of recurrent major depressive disorder, without psychotic features F33.2 ; Anxiety, generalized F41.1 and Borderline personality disorder in adult F60.3 [facility] [id number] [place] [address] 51676- 1386 16 Apr, 2017 Severe episode of recurrent major depressive disorder, without psychotic features F33.2 ; Anxiety, generalized F41.1 and Borderline personality disorder in adult F60.3 [place] [id number] [place] [address] 90228- 1117 16 Apr, 2017 Closed nondisplaced fracture of third metatarsal bone of left foot with routine healing, subsequent encounter S92.335D ; Closed nondisplaced fracture of fourth metatarsal bone of left foot with routine healing, subsequent encounter S92.345D and Closed nondisplaced fracture of second metatarsal bone of left foot with routine healing, subsequent encounter S92.325D [place] [id number] [place] [address] 99137- 6228 Apr, [place] [address] 85774- 5957 Apr, [place] [id number] [place] [address] 56538- 7903 14 Apr, 2017 [place] [id number] [place] [address] 73264- 1563 Apr, Screening breast examination Z12.31 [place] [id number] [place] [address] 39919- 3195 Apr, [place] [address] 30764- 8824 Apr, Type 2 diabetes mellitus with diabetic autonomic (poly) neuropathy E11.43 [place] [id number] [place] [address] 93535- 0117 Apr, Severe episode of recurrent major depressive disorder, without psychotic features F33.2 ; Anxiety, generalized F41.1 and Borderline personality disorder in adult F60.3 [facility] [address] 86110- 5773 Apr, Type 2 diabetes mellitus with diabetic autonomic (poly) neuropathy E11.43 ; Chronic pain syndrome G89.4 and Anxiety F41.9 [facility] [address] 70611 -0979 Apr, BMI 45.0-49.9, adult Z68.42 [facility] [address] 04089 -8589 Apr, Avulsion of toenail, initial encounter S91.209A and Acute non-recurrent maxillary sinusitis J01.00 [place] [address] 95169- 0992 Apr, [place] [address] 72643- 7275 Mar, [facility] [id number] [place] [address] 78851- 2627 Mar, Severe episode of recurrent major depressive disorder, without psychotic features F33.2 ; Anxiety, generalized F41.1 and Borderline personality disorder in adult F60.3 [place] [id number] [place] [address] 67583- 5272 Mar, [facility] [address] 37064- 3881 Mar, [facility] [id number] [place] [address] 45191- 7036 Mar, [place] [address] 69552- 9985 Mar, Seizure disorder G40.909 [facility] [id number] [place] [address] 17842- 9910 Mar, [place] [address], [place] [address]- 5183 Mar, [facility] [id number] [place] [address] 53448 -8178 Mar, Left foot pain M79.672 ; Stage 3 chronic kidney disease N18.3 and Closed nondisplaced fracture of second metatarsal bone of left foot, initial encounter S92.325A [facility] [id number] [place] [address] 67150- 4394 Mar, Severe episode of recurrent major depressive disorder, without psychotic features F33.2 and Anxiety, generalized F41.1 [place] [id number] [place] [address] 27737- 1385 Mar, [facility] [id number] [place] [address] 51591- 6524 Mar, Closed nondisplaced fracture of second metatarsal bone of left foot, initial encounter S92.325A and Closed nondisplaced fracture of third metatarsal bone of left foot, initial encounter S92.335A [place] [id number] [place] [address] 33950- 0799 Mar, Seizure disorder G40.909 [facility] [id number] [place] [address] 72248- 5619 Mar, [facility] [id number] [place] [address] 57613- 8584 Mar, [facility] [id number] [place] [address] 45404- 4765 Mar, [facility] [id number] [place] [address] 84089- 7588 Mar, [facility] [id number] [place] [address] 07581- 7620 Mar, High risk sexual behavior Z72.51 [place] [id number] [place] [address] 90367- 7084 Mar, Severe episode of recurrent major depressive disorder, without psychotic features F33.2 and Anxiety, generalized F41.1 [place] [id number] [place] [address] 13904- 6154 Mar, Anxiety F41.9 and Type 2 diabetes mellitus with diabetic autonomic (poly)neuropathy E11.43 [place] [id number] [place] [address] 76456- 1522 Mar, Anxiety F41.9 [place] [id number] [place] [address] 68404- 9030 Mar, High risk sexual behavior Z72.51 [place] [address] 76961- 7302 Mar, Chronic pain syndrome G89.4 [place] [address] [place] [id number] [place] [address] 02435- 8188 Mar, Type 2 diabetes mellitus with diabetic autonomic (poly) neuropathy E11.43 [place] [address] [place] [id number] [place] [address] 65673- 7493 Mar, [place] [address] [place] [id number] [place] [address] 15782- 6450 Mar, Closed nondisplaced fracture of second metatarsal bone of left foot, initial encounter S92.325A ; Chronic pain syndrome G89.4 ; Closed nondisplaced fracture of third metatarsal bone of left foot, initial encounter S92.335A ; Acute left ankle pain M25.572 and Type 2 diabetes mellitus with diabetic autonomic (poly)neuropathy E11.43 [place] [address] [place] [id number] [place] [address] 72002- 0961 Mar, [place] [address] [place] [id number] [place] [address] 17740- 1539 Mar, [place] [address] [place] [id number] [place] [address] 55417- 6187 Mar, Severe episode of recurrent major depressive disorder, without psychotic features F33.2 and Anxiety, generalized F41.1 [facility] [address] [place] [place] [id number] [place] [address] 27933- 7496 27 Feb, 2017 [facility] [address] [place] [id number] [place] [address] 98740- 2054 26 Feb, 2016 Renal insufficiency N28.9 [facility] [address] [place] [id number] [place] [address] 16862- 5007 26 Feb, 2017 [facility] [address] [place] [id number] [place] [address] 84742- 4058 26 Feb, 2017 Severe episode of recurrent major depressive disorder, without psychotic features F33.2 and Anxiety, generalized F41.1 [facility] [address] [place] [id number] [place] [address] 66025- 8965 25 Feb, 2017 [facility] [address] [place] [id number] [place] [address] 50414- 5387 22 Feb, 2017 [facility] [address] [place] [place] [id number] [place] [address] 71372- 7491 20 Feb, 2017 Renal insufficiency N28.9 [facility] [address] [place] [place] [id number] [place] [address] 20162- 0039 19 Feb, 2017 [facility] [address] [place] [id number] [place] [address] 17311 -7848 18 Feb, 2017 [facility] [address] [place] [id number] [place] [address] 84655- 1067 14 Feb, 2017 [facility] [address] [place] [place] [id number] [place] [address] 38968- 0400 13 Feb, 2017 Severe episode of recurrent major depressive disorder, without psychotic features F33.2 and Anxiety, generalized F41.1 [facility] [address] [place] [id number] [place] [address] 69030- 3382 13 Feb, 2017 Closed nondisplaced fracture of second metatarsal bone of left foot, initial encounter S92.325A ; Chronic pain syndrome G89.4 ; Closed nondisplaced fracture of third metatarsal bone of left foot, initial encounter S92.335A ; Left hip pain M25.552 and Stage 3 chronic kidney disease N18.3 [facility] [id number] [place] [address] 44700- 4472 Feb, [facility] [address] [place] [id number] [place] [address] 95752- 7480 Feb, [facility] [id number] [place] [address] 54789- 2750 Feb, Closed nondisplaced fracture of second metatarsal bone of left foot, initial encounter S92.325A and Closed nondisplaced fracture of third metatarsal bone of left foot, initial encounter S92.335A [facility] [address] [place] [id number] [place] [address] 05617- 5358 Feb, [facility] [address] [place] [id number] [place] [address] 44235- 3959 Feb, Anxiety F41.9 [facility] [address] [place] [id number] [place] [address] 94254- 7141 Feb, [facility] [address] [place] [id number] [place] [address] 11007- 8899 Feb, Chronic pain syndrome G89.4 [facility] [id number] [place] [address] 81537- 1778 Feb, Left foot pain M79.672 ; Closed nondisplaced fracture of second metatarsal bone of left foot, initial encounter S92.325A ; Closed nondisplaced fracture of third metatarsal bone of left foot, initial encounter S92.335A and Oral infection K12.2 [facility] [address] [address] 7002 Feb, [facility] [address] [place] [id number] [place] [address] 32704- 8133 Jan, [facility] [id number] [place] [address] 63348- 8033 Jan, Type 2 diabetes mellitus with diabetic autonomic (poly) neuropathy E11.43 and Congestive heart failure, unspecified congestive heart failure chronicity, unspecified congestive heart failure type I50.9 [place] [address] [place] [id number] [place] [address] 78839- 3332 Jan, Congestive heart failure, unspecified congestive heart failure chronicity, unspecified congestive heart failure type I50.9 and Stage 3 chronic kidney disease N18.3 [place] [address] 10234- 9667 Jan, Stage 3 chronic kidney disease N18.3 ; Edema of both legs R60.0 ; Chronic congestive heart failure, unspecified congestive heart failure type I50.9 ; Acute low back pain without sciatica, unspecified back pain laterality M54.5 ; Chronic nausea R11.0 and Primary insomnia F51.01 [place] [address] [place] [id number] [place] [address] 73704- 1000 Jan, Severe episode of recurrent major depressive disorder, without psychotic features F33.2 and Anxiety, generalized F41.1 [place] [address] [place] [id number] [place] [address] 77193- 2052 Jan, [place] [address] 14081- 3188 Jan, [place] [address] [place] [id number] [place] [address] 05504- 0624 Jan, [place] [address] [place] [id number] [place] [address] 90761- 6703 Jan, [place] [address] [place] [id number] [place] [address] 73797- 5379 Jan, Anxiety F41.9 and Severe episode of recurrent major depressive disorder, without psychotic features F33.2 [place] [address] 16214- 7347 Jan, Type 2 diabetes mellitus with diabetic autonomic (poly) neuropathy E11.43 [place] [address] [place] [id number] [place] [address] 18424- 0528 Jan, Severe episode of recurrent major depressive disorder, without psychotic features F33.2 and Type 2 diabetes mellitus with diabetic autonomic (poly)neuropathy E11.43 [place] [address] 51282- 1225 Jan, [place] [address] 47711- 2280 Jan, [place] [address] 12702- 6925 Jan, Stage 3 chronic kidney disease N18.3 ; Seizure disorder G40.909 ; Edema of both legs R60.0 and Blister (nonthermal), right foot, initial encounter S90.821A [place] [address] 81955- 0000 Jan, Severe episode of recurrent major depressive disorder, without psychotic features F33.2 and Anxiety, generalized F41.1 [place] [address] 97996- 8758 Jan, Severe episode of recurrent major depressive disorder, without psychotic features F33.2 and Anxiety, generalized F41.1 [place] [address] 83852- 5800 Jan, [place] [address] 78693- 6458 Jan, Anxiety F41.9 and Primary insomnia F51.01 [place] [address] [place] [id number] [place] [address] 35118- 5301 Jan, Type 2 diabetes mellitus with diabetic autonomic (poly) neuropathy E11.43 ; [facility] 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 ; Stage 3 chronic kidney disease N18.3 ; Chronic pain syndrome G89.4 ; Swelling of mandible R22.0 and Seizure disorder G40.909 [place] [address] [place] [id number] [place] [address] 64227- 9945 Jan, [place] [address] 72063- 8691 Jan, [facility] [address] [place] [id number] [place] [address] 44087- 2683 Dec, Severe episode of recurrent major depressive disorder, without psychotic features F33.2 and Anxiety, generalized F41.1 [place] [address] [place] [id number] [place] [address]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
--- OUTSIDE RECORDS SUMMARY | 2017-12-04 19:51 | XMS REPORT ---
Author Author MIRZA MARTINO Organization [facility] Address [address] [place] [address] Care Team Providers Care Case Technician Name Role Phone HAIMLindsey MIRZA Unavailable PROBLEMS Type Condition ICD9-CM Code BQU48-QY Code Onset Dates Condition Status SNOMED Code Problem Postural hypotension I95.1 Active 94537949 Problem Seizure disorder G40.909 Active 875790980 Problem Seasonal allergic rhinitis, unspecified allergic rhinitis trigger J30.2 Active 263897565 Problem Closed nondisplaced fracture of second metatarsal bone of left foot, initial encounter S92.325A Active 85225734 Problem Essential hypertension I10 Active 28065221 Problem Multiple neurological symptoms R29.90 Active 752605474 Problem Port catheter in place Z95.828 Active 774150656 Problem Stage 3 chronic kidney disease N18.3 Active 253586526 Problem Gastritis determined by endoscopy K29.70 Active 2346508 Problem Self-inflicted injury Z72.89 Active 456132959 Problem Borderline personality disorder in adult F60.3 Active 30950774 Problem Chronic congestive heart failure, unspecified congestive heart failure type I50.9 Active 84660618 Problem Chronic pain syndrome G89.4 Active 877240358 Problem Primary insomnia F51.01 Active 6407649 Problem Acquired hypothyroidism E03.9 Active 564695023 Problem Gastroparesis K31.84 Active 647379603 Problem Severe episode of recurrent major depressive disorder, without psychotic features F33.2 Active 86711817 Problem Anxiety, generalized F41.1 Active 24034480 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 Active 775066438 Problem Type 2 diabetes mellitus with diabetic polyneuropathy E11.42 Active 88875319 Problem Tobacco abuse Z72.0 Active 402399129 Problem Noncompliance with diabetes treatment Z91.19 Active 3389738 ALLERGIES No Information ENCOUNTERS Encounter Location Date Diagnosis [facility] [address], [place] [address] October, [facility] [id number] [place] [address] 38776- 7631 October, [facility] [id number] [place] [address] 41067- 1033 October, [facility] [id number] [place] [address] 66150- 9238 October, [facility] [id number] [place] [address] 45960- 7560 Sep, Severe episode of recurrent major depressive disorder, without psychotic features F33.2 ; Anxiety, generalized F41.1 and Borderline personality disorder in adult F60.3 [facility] [id number] [place] [address] 19744- 5057 Sep, [facility] [id number] [place] [address] 02954- 9234 Sep, Throat pain R07.0 ; BMI 40.0-44.9, adult Z68.41 and Chronic pain syndrome G89.4 [facility] [id number] [place] [address] 11790- 5229 Sep, [facility] [id number] [place] [address] 63913- 2270 Sep, [facility] [id number] [place] [address] 78814- 7904 Sep, [facility] [id number] [place] [address] 85405- 3869 Sep, Anxiety, generalized F41.1 [facility] [id number] [place] [address] 48824- 3769 Sep, [facility] [id number] [place] [address] 80092- 5831 Sep, Stage 3 chronic kidney disease N18.3 [facility] [id number] [place] [address] 00113- 1705 Sep, Stage 3 chronic kidney disease N18.3 and Chronic pain syndrome G89.4 [facility] [id number] [place] [address] 25791- 2801 Sep, Severe episode of recurrent major depressive disorder, without psychotic features F33.2 ; Anxiety, generalized F41.1 and Borderline personality disorder in adult F60.3 [facility] [address] 70161- 6393 04 Sep, 2017 Chronic pain syndrome G89.4 ; Anxiety, generalized F41.1 and BMI 45.0-49.9, adult Z68.42 [facility] [address] 20984- 0248 Sep, [facility] [address] 57505- 8142 Sep, [facility] [address] 15606- 5945 Sep, Severe episode of recurrent major depressive disorder, without psychotic features F33.2 ; Anxiety, generalized F41.1 and Borderline personality disorder in adult F60.3 [facility] [address] 28879- 3741 Sep, [facility] [id number] [place] [address] 50250 -9753 Aug, Dysuria R30.0 ; Type 2 diabetes mellitus with diabetic polyneuropathy E11.42 ; Oral abscess K12.2 and BMI 40.0-44.9, adult Z68.41 [facility] [id number] [place] [address] 66622- 8993 Aug, [facility] [address] 48686- 3491 Aug, [facility] [id number] [place] [address] 05813- 7479 Aug, [facility] [address] 05362- 2740 27 Aug, 2017 [facility] [address], [place] [address] 29[address] 27 Aug, 2017 Severe episode of recurrent major depressive disorder, without psychotic features F33.2 ; Anxiety, generalized F41.1 and Borderline personality disorder in adult F60.3 [facility] [address], [place] [address]- 1771 22 Aug, 2017 [facility] [id number] [place] [address] 37852- 8046 20 Aug, 2017 [facility] [id number] [place] [address] 70094- 4143 19 Aug, 2017 Severe episode of recurrent major depressive disorder, without psychotic features F33.2 ; Anxiety, generalized F41.1 and Borderline personality disorder in adult F60.3 [facility] [address], [place] [address] 17 Aug, 2017 [facility] [address] [address] 0426 15 Aug, 2017 [facility] [id number] [place] [address] 72050- 0236 14 Aug, 2017 [facility] [address], [place] [address] 14 Aug, 2017 Dysuria R30.0 ; Dental infection K04.7 ; Acute cystitis with hematuria N30.01 and BMI 45.0-49.9, adult Z68.42 [facility] [address], [place] [address]- 0939 14 Aug, 2017 Severe episode of recurrent major depressive disorder, without psychotic features F33.2 ; Anxiety, generalized F41.1 and Borderline personality disorder in adult F60.3 [facility] [address], [place] [address]- 5367 09 Aug, 2017 [place] [address], [place] [address] 1492 Aug, Closed nondisplaced fracture of second metatarsal bone of left foot, initial encounter S92.325A and Chronic pain syndrome G89.4 [facility] [id number] [place] [address] 53300- 9852 08 Aug, 2017 Type 2 diabetes mellitus with diabetic polyneuropathy E11.42 [facility] [id number] [place] [address] 96771- 4044 Aug, Severe episode of recurrent major depressive disorder, without psychotic features F33.2 ; Anxiety, generalized F41.1 and Borderline personality disorder in adult F60.3 [facility] [address] [place] [address] 19570- 6655 07 Aug, 2017 [facility] [id number] [place] [address] 02716- 9424 Aug, [facility] [id number] [place] [address] 61522- 4794 Aug, [facility] [id number] [place] [address] 87205- 4383 Aug, [facility] [id number] [place] [address] 30379- 5968 Aug, [facility] [id number] [place] [address] 93453- 9939 Jul, [facility] [address], [place] [address]- 7054 Jul, [facility] [id number] [place] [address] 63000- 1409 Jul, Severe episode of recurrent major depressive disorder, without psychotic features F33.2 ; Anxiety, generalized F41.1 and Borderline personality disorder in adult F60.3 [facility] [address], [place] [address]- 3048 Jul, Type 2 diabetes mellitus with diabetic polyneuropathy E11.42 [facility] [id number] [place] [address] 61872- 3391 Jul, Closed nondisplaced fracture of second metatarsal bone of left foot, initial encounter S92.325A and Closed nondisplaced fracture of third metatarsal bone of left foot, initial encounter S92.335A [facility] [id number] [place] [address] 03129- 2456 Jul, [facility] [id number] [place] [address] 26650- 8560 Jul, Closed nondisplaced fracture of second metatarsal bone of left foot, initial encounter S92.325A ; Acute left ankle pain M25.572 ; Acute midline low back pain without sciatica M54.5 and Seasonal allergic rhinitis, unspecified allergic rhinitis trigger J30.2 [facility] [id number] [place] [address] 94282- 6459 Jul, [facility] [facility] [address] 47101- 2481 Jul, [facility] [facility] [id number] [place] [address] 48755- 9201 Jul, [facility] [id number] [place] [address] 48807- 5636 15 Jul, 2017 Frequent falls R29.6 [facility] [id number] [place] [address] 23331- 6011 14 Jul, 2017 Frequent falls R29.6 [facility] [id number] [place] [address] 31258- 1744 Jul, Severe episode of recurrent major depressive disorder, without psychotic features F33.2 ; Anxiety, generalized F41.1 and Borderline personality disorder in adult F60.3 [facility] [id number] [place] [address] 89108- 6670 07 Jul, 2017 Chronic pain syndrome G89.4 [facility] [id number] [place] [address] 55627- 2563 07 Jul, 2017 [facility] current use of insulin Z79.4 [facility] [id number] [place] [address] 39656- 3376 Jul, [facility] [id number] [place] [address] 64667- 2659 Jul, Type 2 diabetes mellitus with diabetic polyneuropathy E11.42 [facility] [id number] [place] [address] 53822- 5564 Jun, [facility] current use of insulin Z79.4 and Thrush B37.0 [facility] [facility] [id number] [place] [address] 76918- 8784 Jun, Severe episode of recurrent major depressive disorder, without psychotic features F33.2 ; Anxiety, generalized F41.1 and Borderline personality disorder in adult F60.3 [facility] [id number] [place] [address] 21790- 6267 Jun, Severe episode of recurrent major depressive disorder, without psychotic features F33.2 ; Anxiety, generalized F41.1 and Borderline personality disorder in adult F60.3 [facility] [id number] [place] [address] 07508- 6356 Jun, Frequent falls R29.6 ; Bronchitis J40 ; BMI 40.0-44.9, adult Z68.41 and Coccygeal pain, acute M53.3 [facility] [id number] [place] [address] 23120- 0701 Jun, [facility] [id number] [place] [address] 33970 -3717 Jun, [facility] [id number] [place] [address] 51162- 8439 Jun, [facility] [id number] [place] [address] 42706- 1332 Jun, Dental caries, unspecified K02.9 [facility] [id number] [place] [address] 53250- 2313 Jun, Acute non-recurrent maxillary sinusitis J01.00 and BMI 40.0- 44.9, adult Z68.41 [facility] [facility] [id number] [place] [address] 97849- 8851 Jun, [facility] [facility] [id number] [place] [address] 77239- 8420 Jun, Severe episode of recurrent major depressive disorder, without psychotic features F33.2 ; Anxiety, generalized F41.1 and Borderline personality disorder in adult F60.3 [facility] [id number] [place] [address] 65458- 2944 11 Jun, 2017 Closed nondisplaced fracture of third metatarsal bone of left foot with routine healing, subsequent encounter S92.335D ; Closed nondisplaced fracture of second metatarsal bone of left foot with routine healing, subsequent encounter S92.325D and Closed nondisplaced fracture of fourth metatarsal bone of left foot with routine healing, subsequent encounter S92.345D [facility] [id number] [place] [address] 68988- 6793 Jun, Severe episode of recurrent major depressive disorder, without psychotic features F33.2 ; Anxiety, generalized F41.1 and Borderline personality disorder in adult F60.3 [facility] [facility] [address], [place] [address]- 5077 Jun, [facility] [facility] [address], [place] [address]- 9166 Jun, [facility] [id number] [place] [address] 71705- 3266 Jun, [facility] [id number] [place] [address] 27281- 1350 Jun, [facility] [facility] [id number] [place] [address] 84702- 0234 Jun, [facility] [id number] [place] [address] 51903- 3406 Jun, Anxiety F41.9 [facility] [facility] [address] [address]- 5933 Jun, [facility] [facility] [id number] [place] [address] 60499- 7838 Jun, [facility] [facility] [address], [place] [address]- 1946 Jun, Type 2 diabetes mellitus with diabetic autonomic (poly) neuropathy E11.43 [facility] [id number] [place] [address] 61089- 3066 Jun, Severe episode of recurrent major depressive disorder, without psychotic features F33.2 ; Anxiety, generalized F41.1 and Borderline personality disorder in adult F60.3 [facility] [id number] [place] [address] 85129- 1711 Jun, Type 2 diabetes mellitus with diabetic autonomic (poly) neuropathy E11.43 and Chronic pain syndrome G89.[address] [place] [address] 45613- 4588 20 May, 2017 Recent urinary tract infection Z87.440 ; Deliberate self- cutting Z72.89 ; Chest discomfort R07.89 ; BMI 40.0-44.9, adult Z68.41 and Worried well Z71.1 [address], [place] [address]- 8054 19 May, 2017 Severe episode of recurrent major depressive disorder, without psychotic features F33.2 ; Anxiety, generalized F41.1 and Borderline personality disorder in adult F60.3 [facility] [facility] [address], [place] [address]- 8552 18 May, [address] [id number] [place] [address] 49394- 5772 14 May, 2017 [place] [address], [place] [address]- 6443 May, Type 2 diabetes mellitus with diabetic autonomic (poly) neuropathy E11.43 [facility] [id number] [place] [address] 73487- 7375 May, Severe episode of recurrent major depressive disorder, without psychotic features F33.2 ; Anxiety, generalized F41.1 and Borderline personality disorder in adult F60.3 [facility] [place] [id number] [place] [address] 11910- 9948 May, [facility] [id number] [place] [address] 63015- 2584 May, Type 2 diabetes mellitus with diabetic autonomic (poly) neuropathy E11.43 ; Multiple neurological symptoms R29.90 ; Dysuria R30.0 ; Tobacco abuse Z72.0 ; Right hip pain M25.551 ; Anxiety F41.9 ; Gastritis determined by endoscopy K29.70 ; Chronic pain syndrome G89.4 ; Acute non- recurrent maxillary sinusitis J01.00 ; Self mutilating behavior Z72.89 and BMI 40.0-44.9, adult Z68.41 [facility] [id number] [place] [address] 95935- 0655 May, Severe episode of recurrent major depressive disorder, without psychotic features F33.2 ; Anxiety, generalized F41.1 and Borderline personality disorder in adult F60.3 [facility] [id number] [place] [address] 90749- 6397 Apr, [place] [id number] [place] [address] 91282- 4129 Apr, [facility] [id number] [place] [address] 28419 -3584 Apr, [facility] [id number] [place] [address] 08129 -5624 Apr, Aspiration pneumonia of right lower lobe, unspecified aspiration pneumonia type J69.0 [facility] [facility] [id number] [place] [address] 85192- 7801 Apr, Severe episode of recurrent major depressive disorder, without psychotic features F33.2 ; Anxiety, generalized F41.1 and Borderline personality disorder in adult F60.3 [place] [address] [address]- 5526 Apr, [facility] [id number] [place] [address] 66517- 0060 Apr, Chronic pain syndrome G89.4 [facility] [address], [place] [address]- 7329 21 Apr, 2017 Severe episode of recurrent major depressive disorder, without psychotic features F33.2 ; Anxiety, generalized F41.1 and Borderline personality disorder in adult F60.3 [facility] [address] [place] [address] 69188- 7859 16 Apr, 2017 Severe episode of recurrent major depressive disorder, without psychotic features F33.2 ; Anxiety, generalized F41.1 and Borderline personality disorder in adult F60.3 [facility] [address] [place] [address] 77128- 0282 16 Apr, 2017 Closed nondisplaced fracture of third metatarsal bone of left foot with routine healing, subsequent encounter S92.335D ; Closed nondisplaced fracture of fourth metatarsal bone of left foot with routine healing, subsequent encounter S92.345D and Closed nondisplaced fracture of second metatarsal bone of left foot with routine healing, subsequent encounter S92.325D [place] [address], [place] [address]- 0833 16 Apr, 2017 [place] [address] [place] [address] 48298- 7806 15 Apr, 2017 [place] [id number] [place] [address] 55725- 9916 14 Apr, 2017 [place] [address] [place] [address] 95479- 5840 13 Apr, 2017 Screening breast examination Z12.31 [place] [id number] [place] [address] 13507- 6039 09 Apr, 2017 [place] [id number] [place] [address] 84582- 5651 Apr, Type 2 diabetes mellitus with diabetic autonomic (poly) neuropathy E11.43 [facility] [id number] [place] [address] 77285- 5549 Apr, Severe episode of recurrent major depressive disorder, without psychotic features F33.2 ; Anxiety, generalized F41.1 and Borderline personality disorder in adult F60.3 [facility] [id number] [place] [address] 00257- 3258 Apr, Type 2 diabetes mellitus with diabetic autonomic (poly) neuropathy E11.43 ; Chronic pain syndrome G89.4 and Anxiety F41.9 [facility] [id number] [place] [address] 16626 -0278 Apr, BMI 45.0-49.9, adult Z68.42 [facility] [id number] [place] [address] 31621 -2458 Apr, Avulsion of toenail, initial encounter S91.209A and Acute non-recurrent maxillary sinusitis J01.00 [facility] [id number] [place] [address] 26602- 2108 Apr, [place] [id number] [place] [address] 18571- 0548 Mar, [facility] [id number] [place] [address] 93665- 9707 Mar, Severe episode of recurrent major depressive disorder, without psychotic features F33.2 ; Anxiety, generalized F41.1 and Borderline personality disorder in adult F60.3 [facility] [id number] [place] [address] 07159- 0471 Mar, [facility] [id number] [place] [address] 15675- 4844 Mar, [facility] [id number] [place] [address] 22520- 1850 Mar, [facility] [id number] [place] [address] 11643- 0841 Mar, Seizure disorder G40.909 [facility] [address], [place] [address]- 3599 Mar, [facility] [id number] [place] [address] 14746- 4091 Mar, [facility] [id number] [place] [address] 02823 -6244 Mar, Left foot pain M79.672 ; Stage 3 chronic kidney disease N18.3 and Closed nondisplaced fracture of second metatarsal bone of left foot, initial encounter S92.325A [facility] [id number] [place] [address] 60663- 0815 Mar, Severe episode of recurrent major depressive disorder, without psychotic features F33.2 and Anxiety, generalized F41.1 [facility] [id number] [place] [address] 25529- 8074 Mar, [facility] [id number] [place] [address] 93671- 0228 Mar, Closed nondisplaced fracture of second metatarsal bone of left foot, initial encounter S92.325A and Closed nondisplaced fracture of third metatarsal bone of left foot, initial encounter S92.335A [facility] [id number] [place] [address] 60677- 2083 Mar, Seizure disorder G40.909 [facility] [id number] [place] [address] 10567- 5680 Mar, [facility] [id number] [place] [address] 03335- 1387 Mar, [facility] [id number] [place] [address] 05883- 8474 Mar, [facility] [id number] [place] [address] 94127- 6934 Mar, [facility] [id number] [place] [address] 22662- 4628 Mar, High risk sexual behavior Z72.51 [facility] [id number] [place] [address] 41129- 0335 Mar, Severe episode of recurrent major depressive disorder, without psychotic features F33.2 and Anxiety, generalized F41.1 [facility] [id number] [place] [address] 98016- 9425 Mar, Anxiety F41.9 and Type 2 diabetes mellitus with diabetic autonomic (poly)neuropathy E11.43 [facility] [id number] [place] [address] 47190- 4838 Mar, Anxiety F41.9 [facility] [id number] [place] [address] 09412- 9395 Mar, High risk sexual behavior Z72.51 [facility] [id number] [place] [address] 42466- 2350 Mar, Chronic pain syndrome G89.4 [facility] [id number] [place] [address] 98284- 6452 Mar, Type 2 diabetes mellitus with diabetic autonomic (poly) neuropathy E11.43 [facility] [id number] [place] [address] 91939- 7983 Mar, [facility] [id number] [place] [address] 06381- 0468 Mar, Closed nondisplaced fracture of second metatarsal bone of left foot, initial encounter S92.325A ; Chronic pain syndrome G89.4 ; Closed nondisplaced fracture of third metatarsal bone of left foot, initial encounter S92.335A ; Acute left ankle pain M25.572 and Type 2 diabetes mellitus with diabetic autonomic (poly)neuropathy E11.43 [facility] [address], [place] [address] 5[address] Mar, [facility] [address], [place] [address] 1552 Mar, [facility] [id number] [place] [address] 00363- 4196 Mar, Severe episode of recurrent major depressive disorder, without psychotic features F33.2 and Anxiety, generalized F41.1 [facility] [id number] [place] [address] 61043- 5186 Feb, [facility] [id number] [place] [address] 88930- 7629 Feb, Renal insufficiency N28.9 [facility] [id number] [place] [address] 25663- 3716 Feb, [facility] [id number] [place] [address] 26298- 3199 Feb, Severe episode of recurrent major depressive disorder, without psychotic features F33.2 and Anxiety, generalized F41.1 [facility] [id number] [place] [address] 06868- 4752 Feb, [facility] [id number] [place] [address] 97102- 5067 22 Feb, 2017 [facility] [id number] [place] [address] 53355- 6965 20 Feb, 2017 Renal insufficiency N28.9 [facility] [id number] [place] [address] 56916- 3446 19 Feb, 2017 [facility] [id number] [place] [address] 71715 -8943 18 Feb, 2017 [facility] [id number] [place] [address] 77030- 4775 14 Feb, 2017 [facility] [id number] [place] [address] 55758- 4827 13 Feb, 2017 Severe episode of recurrent major depressive disorder, without psychotic features F33.2 and Anxiety, generalized F41.1 [facility] [address], [place] [address]- 1442 13 Feb, 2017 Closed nondisplaced fracture of second metatarsal bone of left foot, initial encounter S92.325A ; Chronic pain syndrome G89.4 ; Closed nondisplaced fracture of third metatarsal bone of left foot, initial encounter S92.335A ; Left hip pain M25.552 and Stage 3 chronic kidney disease N18.3 [facility] [id number] [place] [address] 31943- 4761 Feb, [facility] [address] [facility] [id number] [place] [address] 72174- 2799 Feb, [facility] [address] [facility] [id number] [place] [address] 32602- 4317 Feb, Closed nondisplaced fracture of second metatarsal bone of left foot, initial encounter S92.325A and Closed nondisplaced fracture of third metatarsal bone of left foot, initial encounter S92.335A [place] [id number] [place] [address] 54849- 4656 Feb, [facility] [id number] [place] [address] 08527- 8234 Feb, Anxiety F41.9 [facility] [id number] [place] [address] 45501- 4197 Feb, [facility] [id number] [place] [address] 97488- 6535 Feb, Chronic pain syndrome G89.4 [facility] [id number] [place] [address] 96036- 2541 05 Feb, 2017 Left foot pain M79.672 ; Closed nondisplaced fracture of second metatarsal bone of left foot, initial encounter S92.325A ; Closed nondisplaced fracture of third metatarsal bone of left foot, initial encounter S92.335A and Oral infection K12.2 [facility] [address] [facility] [id number] [place] [address] 10166- 1428 Feb, [facility] [id number] [place] [address] 23734- 0857 Jan, [place] [id number] [place] [address] 31170- 9486 Jan, Type 2 diabetes mellitus with diabetic autonomic (poly) neuropathy E11.43 and Congestive heart failure, unspecified congestive heart failure chronicity, unspecified congestive heart failure type I50.9 [place] [id number] [place] [address] 05575- 3034 Jan, Congestive heart failure, unspecified congestive heart failure chronicity, unspecified congestive heart failure type I50.9 and Stage 3 chronic kidney disease N18.3 [place] [id number] [place] [address] 11401- 1548 Jan, Stage 3 chronic kidney disease N18.3 ; Edema of both legs R60.0 ; Chronic congestive heart failure, unspecified congestive heart failure type I50.9 ; Acute low back pain without sciatica, unspecified back pain laterality M54.5 ; Chronic nausea R11.0 and Primary insomnia F51.01 [place] [id number] [place] [address] 89864- 8936 Jan, Severe episode of recurrent major depressive disorder, without psychotic features F33.2 and Anxiety, generalized F41.1 [place] [id number] [place] [address] 75194- 8120 Jan, [place] [id number] [place] [address] 74170- 7431 Jan, [place] [id number] [place] [address] 66339- 6468 Jan, [place] [id number] [place] [address] 42583- 4250 Jan, [place] [id number] [place] [address] 61367- 7013 Jan, Anxiety F41.9 and Severe episode of recurrent major depressive disorder, without psychotic features F33.2 [place] [id number] [place] [address] 02431- 9632 Jan, Type 2 diabetes mellitus with diabetic autonomic (poly) neuropathy E11.43 [place] [id number] [place] [address] 77845- 0390 Jan, Severe episode of recurrent major depressive disorder, without psychotic features F33.2 and Type 2 diabetes mellitus with diabetic autonomic (poly)neuropathy E11.43 [place] [id number] [place] [address] 72366- 9189 Jan, [place] [id number] [place] [address] 87026- 4525 Jan, [place] [id number] [place] [address] 01199- 0369 Jan, Stage 3 chronic kidney disease N18.3 ; Seizure disorder G40.909 ; Edema of both legs R60.0 and Blister (nonthermal), right foot, initial encounter S90.821A [place] [id number] [place] [address] 55031- 6836 Jan, Severe episode of recurrent major depressive disorder, without psychotic features F33.2 and Anxiety, generalized F41.1 [place] [id number] [place] [address] 77761- 4147 Jan, Severe episode of recurrent major depressive disorder, without psychotic features F33.2 and Anxiety, generalized F41.1 [place] [id number] [place] [address] 89445- 2965 Jan, [place] [id number] [place] [address] 46976- 5930 Jan, Anxiety F41.9 and Primary insomnia F51.01 [place] [id number] [place] [address] 99945- 9961 Jan, Type 2 diabetes mellitus with diabetic autonomic (poly) neuropathy E11.43 ; [facility] current use of insulin Z79.4 ; Stage 3 chronic kidney disease N18.3 ; Chronic pain syndrome G89.4 ; Swelling of mandible R22.0 and Seizure disorder G40.909 [place] [id number] [place] [address] 90559- 6748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
--- OUTSIDE RECORDS SUMMARY | 2017-12-04 19:51 | XMS REPORT ---
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 Active 581369245 Problem Recurrent major depressive disorder, remission status unspecified F33.9 Active 22386065 Problem Severe episode of recurrent major depressive disorder, without psychotic features F33.2 Active 47482857 Problem Tobacco abuse Z72.0 Active 676433018 Problem Anxiety, generalized F41.1 Active 01039701 Problem Weakness R53.1 Active 84184139 Problem Stage 3 chronic kidney disease N18.3 Active 806398346 Problem Vaginal bleeding N93.9 Active 475614215 Problem Chronic nausea R11.0 Active 181256157 Problem Right lower quadrant abdominal pain R10.31 Active 613799373 Problem Self-inflicted injury Z72.89 Active 546435857 Problem Noncompliance with diabetes treatment Z91.19 Active 4271737 Problem Unspecified fall W19.XXXA Active 3505270 Problem Type 2 diabetes mellitus with diabetic polyneuropathy E11.42 Active 61016276 Problem Gastritis determined by endoscopy K29.70 Active 3872861 Problem Unspecified abdominal pain R10.9 Active 042654049 Problem Diarrhea, unspecified type R19.7 Active 96632269 Problem Left hip pain M25.552 Active 07547853 Problem Closed nondisplaced fracture of second metatarsal bone of left foot, initial encounter S92.325A Active 19736411 Problem Neck pain M54.2 Active 86832289 Problem Thrush B37.0 Active 53208305 Problem Anxiety F41.9 Active 88984943 Problem Swelling of both lower extremities M79.89 Active 90373170931238040 Problem Essential hypertension I10 Active 85865986 Problem Edema of both legs R60.0 Active 152895327 Problem Acquired hypothyroidism E03.9 Active 251940896 Problem Blister (nonthermal), right foot, initial encounter S90.821A Active 220743361 Problem Congestive heart failure, unspecified congestive heart failure chronicity, unspecified congestive heart failure type I50.9 Active 28214746 Problem Closed nondisplaced fracture of third metatarsal bone of left foot, initial encounter S92.335A Active 154096679 Problem Port catheter in place Z95.828 Active 954801897 Problem Chronic congestive heart failure, unspecified congestive heart failure type I50.9 Active 83293837 Problem Primary insomnia F51.01 Active 9260739 Problem Postural hypotension I95.1 Active 26786479 Problem Screening breast examination Z12.39 Active 946442348 Problem Acute non-recurrent maxillary sinusitis J01.00 Active 77940054 Problem Type 2 diabetes mellitus with diabetic autonomic (poly)neuropathy E11.43 Active 298345502 Problem Syncope, unspecified syncope type R55 Active 358157716 Problem Chronic pain syndrome G89.4 Active 375460311 Problem Acute pain of right shoulder M25.511 Active 31063875 Problem Epigastric pain R10.13 Active 72485113 Problem Seizure disorder G40.909 Active 207769078 Problem Gastroparesis K31.84 Active 873774794 Problem Chronic superficial gastritis without bleeding K29.30 Active 140280423 Problem Seasonal allergic rhinitis, unspecified allergic rhinitis trigger J30.2 Active 590345703 Problem Swelling of mandible R22.0 Active 028985919 ALLERGIES No Information SOCIAL HISTORY Never Assessed PLAN OF CARE VITAL SIGNS MEDICATIONS Medication Instructions Dosage Frequency Start Date End Date Duration Status Potassium Chloride ER 10 MEQ Orally Once a day 1 tablet with food 24h Jul, Aug, 05 days Active RESULTS No Results PROCEDURES No [...] vein (port for IV access) Dr. Hernandez [facility] 3- Surgical History partial hysterectomy Surgical History EGD Hospitalization History transfusion given after delivery Hospitalization History Chest pain, uncontrolled Hyperglycemia--[facility]ia [facility] 12/15/15 Hospitalization History Influenza B Hospitalization History pneumonia Hospitalization History [facility] 07/16/16 Hospitalization History for high sugar 07/12
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
--- OUTSIDE RECORDS SUMMARY | 2017-12-04 19:54 | XMS REPORT ---
Author Author MIRZA MARTINO [facility] Address [address] [place] [address] Care Team Providers Care Ict Project Manager Name Role Phone MIRZA MARTINO Unavailable PROBLEMS Type Condition ICD9-CM Code [id number] Code Onset Dates Condition Status SNOMED Code Problem Postural hypotension I95.1 Active 03713916 Problem Seizure disorder G40.909 Active 678621516 Problem Seasonal allergic rhinitis, unspecified allergic rhinitis trigger J30.2 Active 074254109 Problem Closed nondisplaced fracture of second metatarsal bone of left foot, initial encounter S92.325A Active 31881470 Problem Essential hypertension I10 Active 78571618 Problem Multiple neurological symptoms R29.90 Active 624319879 Problem Port catheter in place Z95.828 Active 892180204 Problem Stage 3 chronic kidney disease N18.3 Active 340233761 Problem Gastritis determined by endoscopy K29.70 Active 4226163 Problem Self-inflicted injury Z72.89 Active 751552829 Problem Borderline personality disorder in adult F60.3 Active 53941031 Problem Chronic congestive heart failure, unspecified congestive heart failure type I50.9 Active 54256091 Problem Chronic pain syndrome G89.4 Active 497151084 Problem Primary insomnia F51.01 Active 4390295 Problem Acquired hypothyroidism E03.9 Active 960885695 Problem Gastroparesis K31.84 Active 624778282 Problem Severe episode of recurrent major depressive disorder, without psychotic features F33.2 Active 52219942 Problem Anxiety, generalized F41.1 Active 74584760 Problem 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 Active 088139586 Problem Type 2 diabetes mellitus with diabetic polyneuropathy E11.42 Active 20420533 Problem Tobacco abuse Z72.0 Active 505765243 Problem Noncompliance with diabetes treatment Z91.19 Active 6361227 ALLERGIES Substance Reaction Event Type Date Status [...] Jan, Active ENCOUNTERS Encounter Location Date Diagnosis [facility] [id number] [place] [address] 28171- 1448 October, [facility] [id number] [place] [address] 25395- 8129 October, [facility] [id number] [place] [address] 39742- 7091 October, [facility] [id number] [place] [address] 51292- 1130 October, [facility] [id number] [place] [address] [id number] Sep, [facility] [id number] [place] [address] 90601- 7658 Sep, Severe episode of recurrent major depressive disorder, without psychotic features F33.2 ; Anxiety, generalized F41.1 and Borderline personality disorder in adult F60.3 [facility] [id number] [place] [address] 14469- 0272 Sep, [facility] [id number] [place] [address] 94723- 5347 Sep, Throat pain R07.0 ; BMI 40.0-44.9, adult Z68.41 and Chronic pain syndrome G89.4 [facility] [id number] [place] [address] 67236- 1835 Sep, [facility] [id number] [place] [address] 06221- 6044 Sep, [facility] [id number] [place] [address] 19955- 3739 Sep, [facility] [id number] [place] [address] 23385- 4914 Sep, Anxiety, generalized F41.1 [place] [id number] [place] [address] 86932- 6249 Sep, [place] [id number] [place] [address] 93632- 4853 Sep, Stage 3 chronic kidney disease N18.3 [facility] [id number] [place] [address] 75403- 6398 Sep, Stage 3 chronic kidney disease N18.3 and Chronic pain syndrome G89.4 [facility] [id number] [place] [address] 97999- 3961 Sep, Severe episode of recurrent major depressive disorder, without psychotic features F33.2 ; Anxiety, generalized F41.1 and Borderline personality disorder in adult F60.3 [facility] [id number] [place] [address] 17628- 2905 Sep, Chronic pain syndrome G89.4 ; Anxiety, generalized F41.1 and BMI 45.0-49.9, adult Z68.42 [facility] [id number] [place] [address] 41672- 1340 Sep, [place] [id number] [place] [address] 69314- 2951 Sep, [facility] [id number] [place] [address] 93686- 4700 Sep, Severe episode of recurrent major depressive disorder, without psychotic features F33.2 ; Anxiety, generalized F41.1 and Borderline personality disorder in adult F60.3 [place] [id number] [place] [address] 01245- 9846 Sep, [facility] [id number] [place] [address] 51067 -3887 Aug, Dysuria R30.0 ; Type 2 diabetes mellitus with diabetic polyneuropathy E11.42 ; Oral abscess K12.2 and BMI 40.0-44.9, adult Z68.41 [facility] [address], [place] [address] 7916 30 Aug, 2017 [facility] [id number] [place] [address] 59434- 3038 28 Aug, 2017 [facility] [id number] [place] [address] 68049- 2044 Aug, [facility] [id number] [place] [address] 02117- 1641 Aug, [facility] [id number] [place] [address] 25180- 3940 Aug, Severe episode of recurrent major depressive disorder, without psychotic features F33.2 ; Anxiety, generalized F41.1 and Borderline personality disorder in adult F60.3 [facility] [id number] [place] [address] 79453- 6976 22 Aug, 2017 [facility] [id number] [place] [address] 37337- 4567 20 Aug, 2017 [facility] [id number] [place] [address] 09894- 5548 19 Aug, 2017 Severe episode of recurrent major depressive disorder, without psychotic features F33.2 ; Anxiety, generalized F41.1 and Borderline personality disorder in adult F60.3 [facility] [address] [address] 17 Aug, 2017 [facility] [id number] [address]- 8640 15 Aug, 2017 [facility] [id number] [place] [address] 37596- 1780 14 Aug, 2017 [facility] [address] [address] 14 Aug, 2017 Dysuria R30.0 ; Dental infection K04.7 ; Acute cystitis with hematuria N30.01 and BMI 45.0-49.9, adult Z68.42 [facility] [id number] [place] [address] 13773- 8274 14 Aug, 2017 Severe episode of recurrent major depressive disorder, without psychotic features F33.2 ; Anxiety, generalized F41.1 and Borderline personality disorder in adult F60.3 [facility] [id number] [place] [address] 88135- 6773 Aug, [facility] [id number] [place] [address] 81936- 3243 Aug, Closed nondisplaced fracture of second metatarsal bone of left foot, initial encounter S92.325A and Chronic pain syndrome G89.4 [facility] [id number] [place] [address] 96844- 5301 08 Aug, 2017 Type 2 diabetes mellitus with diabetic polyneuropathy E11.42 [facility] [id number] [place] [address] 14464- 4211 08 Aug, 2017 Severe episode of recurrent major depressive disorder, without psychotic features F33.2 ; Anxiety, generalized F41.1 and Borderline personality disorder in adult F60.3 [facility] [id number] [place] [address] 82418- 8975 Aug, [facility] [id number] [place] [address] 31272- 0008 Aug, [facility] [id number] [place] [address] 29360- 1882 Aug, [facility] [id number] [place] [address] 25279- 7019 Aug, [facility] [id number] [place] [address] 48409- 9149 Aug, [facility] [id number] [place] [address] 17690- 6691 Jul, [facility] [id number] [place] [address] 13405- 3775 Jul, [facility] [id number] [place] [address] 80696- 0632 Jul, Severe episode of recurrent major depressive disorder, without psychotic features F33.2 ; Anxiety, generalized F41.1 and Borderline personality disorder in adult F60.3 [place] [id number] [place] [address] 33340- 3835 Jul, Type 2 diabetes mellitus with diabetic polyneuropathy E11.42 [facility] [id number] [place] [address] 76411- 1121 Jul, Closed nondisplaced fracture of second metatarsal bone of left foot, initial encounter S92.325A and Closed nondisplaced fracture of third metatarsal bone of left foot, initial encounter S92.335A [place] [id number] [place] [address] 46854- 7286 Jul, [place] [id number] [place] [address] 67285- 1716 Jul, Closed nondisplaced fracture of second metatarsal bone of left foot, initial encounter S92.325A ; Acute left ankle pain M25.572 ; Acute midline low back pain without sciatica M54.5 and Seasonal allergic rhinitis, unspecified allergic rhinitis trigger J30.2 [place] [facility] [id number] [place] [address] 51076- 2584 Jul, [facility] [place] [id number] [place] [address] 12914- 3221 Jul, [place] [id number] [place] [address] 78749- 8332 Jul, [place] [address] 64313- 3761 Jul, Frequent falls R29.6 [facility] [id number] [place] [address] 25948- 0399 14 Jul, 2017 Frequent falls R29.6 [facility] [place] [id number] [place] [address] 22119- 6690 07 Jul, 2017 Severe episode of recurrent major depressive disorder, without psychotic features F33.2 ; Anxiety, generalized F41.1 and Borderline personality disorder in adult F60.3 [facility] [id number] [place] [address] 31826- 2164 07 Jul, 2017 Chronic pain syndrome G89.4 [place] [address] 19876- 5471 Jul, [facility] current use of insulin Z79.4 [place] [address] 42350- 3152 Jul, [place] [address] 65035- 7192 Jul, Type 2 diabetes mellitus with diabetic polyneuropathy E11.42 [place] [address] 04899- 8562 Jun, 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 and Thrush B37.0 [place] [address] 56382- 8897 Jun, Severe episode of recurrent major depressive disorder, without psychotic features F33.2 ; Anxiety, generalized F41.1 and Borderline personality disorder in adult F60.3 [place] [id number] [place] [address] 63879- 9330 Jun, Severe episode of recurrent major depressive disorder, without psychotic features F33.2 ; Anxiety, generalized F41.1 and Borderline personality disorder in adult F60.3 [place] [id number] [place] [address] 16924- 4602 Jun, Frequent falls R29.6 ; Bronchitis J40 ; BMI 40.0-44.9, adult Z68.41 and Coccygeal pain, acute M53.3 [place] [id number] [place] [address] 39976- 3512 Jun, [facility] [address], [place] [address] Jun, [facility] [id number] [place] [address] 63384- 7362 Jun, [facility] [address], [place] [address]- 2893 Jun, Dental caries, unspecified K02.9 [facility] [id number] [place] [address] 16462- 1198 Jun, Acute non-recurrent maxillary sinusitis J01.00 and BMI 40.0- 44.9, adult Z68.41 [facility] [id number] [place] [address] 75941- 4269 17 Jun, 2017 [facility] [id number] [place] [address] 55449- 2682 Jun, Severe episode of recurrent major depressive disorder, without psychotic features F33.2 ; Anxiety, generalized F41.1 and Borderline personality disorder in adult F60.3 [facility] [id number] [place] [address] 33476- 8662 11 Jun, 2017 Closed nondisplaced fracture of third metatarsal bone of left foot with routine healing, subsequent encounter S92.335D ; Closed nondisplaced fracture of second metatarsal bone of left foot with routine healing, subsequent encounter S92.325D and Closed nondisplaced fracture of fourth metatarsal bone of left foot with routine healing, subsequent encounter S92.345D [facility] [id number] [address]- 7024 Jun, Severe episode of recurrent major depressive disorder, without psychotic features F33.2 ; Anxiety, generalized F41.1 and Borderline personality disorder in adult F60.3 [facility] [address], [place] [address]- 9129 Jun, [facility] [address], [place] [address]- 4090 Jun, [place] [address], [place] [address]- 3548 Jun, [facility] [address], [place] [address]- 2544 Jun, [facility] [address], [place] [address]- 4022 Jun, [facility] [id number] [place] [address] 97505- 7193 Jun, Anxiety F41.9 [facility] [id number] [place] [address] 51915- 1212 Jun, [facility] [address] [place] [address] 48226- 9214 Jun, [facility] [address], [place] [address]- 8874 Jun, Type 2 diabetes mellitus with diabetic autonomic (poly) neuropathy E11.43 [facility] [address], [place] [address]- 4268 Jun, Severe episode of recurrent major depressive disorder, without psychotic features F33.2 ; Anxiety, generalized F41.1 and Borderline personality disorder in adult F60.3 [facility] [address], [place] [address]- 9795 Jun, Type 2 diabetes mellitus with diabetic autonomic (poly) neuropathy E11.43 and Chronic pain syndrome G89.4 [facility] [address], [place] [address]- 9904 May, Recent urinary tract infection Z87.440 ; Deliberate self- cutting Z72.89 ; Chest discomfort R07.89 ; BMI 40.0-44.9, adult Z68.41 and Worried well Z71.1 [facility] [address], [place] [address]- 9022 19 May, 2017 Severe episode of recurrent major depressive disorder, without psychotic features F33.2 ; Anxiety, generalized F41.1 and Borderline personality disorder in adult F60.3 [facility] [id number] [place] [address] 49903- 5895 May, [facility] [id number] [place] [address] 41471- 7466 May, [facility] [id number] [place] [address] 66459- 3607 May, Type 2 diabetes mellitus with diabetic autonomic (poly) neuropathy E11.43 [facility] [id number] [place] [address] 68438- 7137 May, Severe episode of recurrent major depressive disorder, without psychotic features F33.2 ; Anxiety, generalized F41.1 and Borderline personality disorder in adult F60.3 [facility] [id number] [place] [address] 12140- 9625 May, [place] [address] 56194- 4614 May, Type 2 diabetes mellitus with diabetic autonomic (poly) neuropathy E11.43 ; Multiple neurological symptoms R29.90 ; Dysuria R30.0 ; Tobacco abuse Z72.0 ; Right hip pain M25.551 ; Anxiety F41.9 ; Gastritis determined by endoscopy K29.70 ; Chronic pain syndrome G89.4 ; Acute non- recurrent maxillary sinusitis J01.00 ; Self mutilating behavior Z72.89 and BMI 40.0-44.9, adult Z68.41 [place] [id number] [place] [address] 92689- 8920 May, Severe episode of recurrent major depressive disorder, without psychotic features F33.2 ; Anxiety, generalized F41.1 and Borderline personality disorder in adult F60.3 [place] [id number] [place] [address] 57909- 1230 Apr, [place] [id number] [place] [address] 38205- 8838 Apr, [facility] [id number] [place] [address] 36930 -6379 Apr, [facility] [address], [place] [address] Apr, Aspiration pneumonia of right lower lobe, unspecified aspiration pneumonia type J69.0 [facility] [address] [facility] [id number] [address]- 0132 Apr, Severe episode of recurrent major depressive disorder, without psychotic features F33.2 ; Anxiety, generalized F41.1 and Borderline personality disorder in adult F60.3 [facility] [address], [place] [address]- 3462 Apr, [facility] [id number] [place] [address] 53665- 4700 Apr, Chronic pain syndrome G89.4 [facility] [id number] [place] [address] 89002- 1399 Apr, Severe episode of recurrent major depressive disorder, without psychotic features F33.2 ; Anxiety, generalized F41.1 and Borderline personality disorder in adult F60.3 [facility] [address] [place] [address] 41023- 1191 Apr, Severe episode of recurrent major depressive disorder, without psychotic features F33.2 ; Anxiety, generalized F41.1 and Borderline personality disorder in adult F60.3 [facility] [address], [place] [address]- 9037 Apr, Closed nondisplaced fracture of third metatarsal bone of left foot with routine healing, subsequent encounter S92.335D ; Closed nondisplaced fracture of fourth metatarsal bone of left foot with routine healing, subsequent encounter S92.345D and Closed nondisplaced fracture of second metatarsal bone of left foot with routine healing, subsequent encounter S92.325D [facility] [address], [place] [address]- 4761 Apr, [facility] [id number] [place] [address] 43544- 3473 Apr, [place] [id number] [place] [address] 45159- 8719 14 Apr, 2017 [place] [id number] [place] [address] 32746- 4899 Apr, Screening breast examination Z12.31 [place] [id number] [place] [address] 63166- 0428 Apr, [place] [id number] [place] [address] 41409- 5684 Apr, Type 2 diabetes mellitus with diabetic autonomic (poly) neuropathy E11.43 [place] [id number] [place] [address] 57807- 1956 Apr, Severe episode of recurrent major depressive disorder, without psychotic features F33.2 ; Anxiety, generalized F41.1 and Borderline personality disorder in adult F60.3 [place] [address] 27375- 6951 06 Apr, 2017 Type 2 diabetes mellitus with diabetic autonomic (poly) neuropathy E11.43 ; Chronic pain syndrome G89.4 and Anxiety F41.9 [facility] [id number] [place] [address] 31386 -0415 Apr, BMI 45.0-49.9, adult Z68.42 [facility] [id number] [place] [address] 53352 -5720 Apr, Avulsion of toenail, initial encounter S91.209A and Acute non-recurrent maxillary sinusitis J01.00 [place] [id number] [place] [address] 13792- 2429 Apr, [place] [id number] [place] [address] 83761- 8721 Mar, [place] [id number] [place] [address] 16245- 5765 Mar, Severe episode of recurrent major depressive disorder, without psychotic features F33.2 ; Anxiety, generalized F41.1 and Borderline personality disorder in adult F60.3 [facility] [id number] [place] [address] 65708- 3355 Mar, [facility] [id number] [place] [address] 12630- 1891 Mar, [facility] [id number] [place] [address] 95984- 9883 Mar, [facility] [id number] [place] [address] 70391- 1133 Mar, Seizure disorder G40.909 [facility] [id number] [place] [address] 53027- 7732 Mar, [facility] [id number] [place] [address] 17008- 0336 Mar, [facility] [id number] [place] [address] 63327 -7496 Mar, Left foot pain M79.672 ; Stage 3 chronic kidney disease N18.3 and Closed nondisplaced fracture of second metatarsal bone of left foot, initial encounter S92.325A [facility] [id number] [place] [address] 76273- 2267 Mar, Severe episode of recurrent major depressive disorder, without psychotic features F33.2 and Anxiety, generalized F41.1 [facility] [id number] [place] [address] [id number] Mar, [facility] [id number] [place] [address] [id number] Mar, Closed nondisplaced fracture of second metatarsal bone of left foot, initial encounter S92.325A and Closed nondisplaced fracture of third metatarsal bone of left foot, initial encounter S92.335A [facility] [id number] [place] [address] [id number]- 5607 Mar, Seizure disorder G40.909 [facility] [address] [id number] [place] [address] 11770- 5351 Mar, [facility] [id number] [place] [address] 46311- 2804 Mar, [facility] [id number] [place] [id number]- 2678 Mar, [facility] [id number] [place] [address] 96535- 6264 Mar, [facility] [id number] [place] [address] 73005- 3791 Mar, High risk sexual behavior Z72.51 [facility] [id number] [place] [address] 06330- 6389 Mar, Severe episode of recurrent major depressive disorder, without psychotic features F33.2 and Anxiety, generalized F41.1 [facility] [id number] [place] [address] 57089- 4963 Mar, Anxiety F41.9 and Type 2 diabetes mellitus with diabetic autonomic (poly)neuropathy E11.43 [facility] [id number] [place] [address] 15457- 3015 Mar, Anxiety F41.9 [facility] [id number] [place] [address] 47672- 5963 Mar, High risk sexual behavior Z72.51 [facility] [id number] [place] [address] 60785- 5000 Mar, Chronic pain syndrome G89.4 [facility] [id number] [place] [address] 00546- 4043 Mar, Type 2 diabetes mellitus with diabetic autonomic (poly) neuropathy E11.43 [facility] [id number] [place] [address] 66176- 0034 Mar, [facility] [id number] [place] [address] 14472- 4629 Mar, Closed nondisplaced fracture of second metatarsal bone of left foot, initial encounter S92.325A ; Chronic pain syndrome G89.4 ; Closed nondisplaced fracture of third metatarsal bone of left foot, initial encounter S92.335A ; Acute left ankle pain M25.572 and Type 2 diabetes mellitus with diabetic autonomic (poly)neuropathy E11.43 [facility] [id number] [place] [address] 30026- 0896 Mar, [facility] [address] 01349- 7129 Mar, [facility] [id number] [place] [address] 23524- 2436 Mar, Severe episode of recurrent major depressive disorder, without psychotic features F33.2 and Anxiety, generalized F41.1 [facility] [id number] [place] [address] 87001- 0265 Feb, [facility] [id number] [place] [address] 95307- 0532 Feb, Renal insufficiency N28.9 [facility] [id number] [place] [address] 04576- 4022 Feb, [facility] [id number] [place] [address] 69747- 1146 Feb, Severe episode of recurrent major depressive disorder, without psychotic features F33.2 and Anxiety, generalized F41.1 [facility] [id number] [place] [address] 66767- 5571 Feb, [facility] [id number] [place] [address] 83714- 2540 Feb, [facility] [id number] [place] [address] 16776- 8393 Feb, Renal insufficiency N28.9 [facility] [id number] [place] [address] 55931- 8308 Feb, [facility] [id number] [place] [address] 17231 -4184 18 Feb, 2017 [facility] [id number] [place] [address] 75468- 9547 14 Feb, 2017 [facility] [id number] [place] [address] 05161- 2910 13 Feb, 2017 Severe episode of recurrent major depressive disorder, without psychotic features F33.2 and Anxiety, generalized F41.1 [facility] [id number] [place] [address] 45431- 6175 13 Feb, 2017 Closed nondisplaced fracture of second metatarsal bone of left foot, initial encounter S92.325A ; Chronic pain syndrome G89.4 ; Closed nondisplaced fracture of third metatarsal bone of left foot, initial encounter S92.335A ; Left hip pain M25.552 and Stage 3 chronic kidney disease N18.3 [facility] [id number] [place] [address] 13203- 9760 07 Feb, 2017 [facility] [id number] [place] [address] 01995- 2041 Feb, [facility] [id number] [place] [address] 85650- 6140 Feb, Closed nondisplaced fracture of second metatarsal bone of left foot, initial encounter S92.325A and Closed nondisplaced fracture of third metatarsal bone of left foot, initial encounter S92.335A [facility] [id number] [place] [address] 59312- 3310 Feb, [facility] [id number] [place] [address] 84676- 2540 Feb, Anxiety F41.9 [facility] [id number] [place] [address] 53374- 1236 Feb, [facility] [id number] [place] [address] 12427- 9542 Feb, Chronic pain syndrome G89.4 [facility] [id number] [place] [address] 72434- 7442 Feb, Left foot pain M79.672 ; Closed nondisplaced fracture of second metatarsal bone of left foot, initial encounter S92.325A ; Closed nondisplaced fracture of third metatarsal bone of left foot, initial encounter S92.335A and Oral infection K12.2 [facility] [id number] [place] [address] 32902- 2417 Feb, [facility] [address] 85859- 3122 Jan, [facility] [id number] [place] [address] 56205- 9321 Jan, Type 2 diabetes mellitus with diabetic autonomic (poly) neuropathy E11.43 and Congestive heart failure, unspecified congestive heart failure chronicity, unspecified congestive heart failure type I50.9 [facility] [id number] [place] [address] 03974- 5423 Jan, Congestive heart failure, unspecified congestive heart failure chronicity, unspecified congestive heart failure type I50.9 and Stage 3 chronic kidney disease N18.3 [facility] [id number] [place] [address] 96607- 7917 Jan, Stage 3 chronic kidney disease N18.3 ; Edema of both legs R60.0 ; Chronic congestive heart failure, unspecified congestive heart failure type I50.9 ; Acute low back pain without sciatica, unspecified back pain laterality M54.5 ; Chronic nausea R11.0 and Primary insomnia F51.01 [facility] [id number] [place] [address] 65233- 4882 Jan, Severe episode of recurrent major depressive disorder, without psychotic features F33.2 and Anxiety, generalized F41.1 [facility] [id number] [place] [address] 31387- 8764 Jan, [facility] [id number] [place] [address] 10692- 9400 Jan, [facility] [id number] [place] [address] 40934- 9900 Jan, [facility] [id number] [place] [address] 37298- 5290 Jan, [facility] [id number] [place] [address] 44290- 7638 Jan, Anxiety F41.9 and Severe episode of recurrent major depressive disorder, without psychotic features F33.2 [facility] [id number] [place] [address] 92829- 0491 Jan, Type 2 diabetes mellitus with diabetic autonomic (poly) neuropathy E11.43 [facility] [id number] [place] [address] 82050- 0033 Jan, Severe episode of recurrent major depressive disorder, without psychotic features F33.2 and Type 2 diabetes mellitus with diabetic autonomic (poly)neuropathy E11.43 [facility] [id number] [place] [address] 87349- 0871 Jan, [facility] [id number] [place] [address] 01795- 6538 Jan, [facility] [id number] [place] [address] 41710- 3656 Jan, Stage 3 chronic kidney disease N18.3 ; Seizure disorder G40.909 ; Edema of both legs R60.0 and Blister (nonthermal), right foot, initial encounter S90.821A [facility] [id number] [place] [address] 14954- 0157 Jan, Severe episode of recurrent major depressive disorder, without psychotic features F33.2 and Anxiety, generalized F41.1 [facility] [id number] [place] [address] 63373- 2455 Jan, Severe episode of recurrent major depressive disorder, without psychotic features F33.2 and Anxiety, generalized F41.1 [facility] [id number] [place] [address] 59336- 9987 Jan, [facility] [id number] [place] [address] 11929- 2135 09 Jan, 2017 Anxiety F41.9 and Primary insomnia F51.01 [address] [id number] [place] [address] 01653- 1886 Jan, Type 2 diabetes mellitus with diabetic autonomic (poly) neuropathy E11.43 ; [facility] current use of insulin Z79.4 ; Stage 3 chronic kidney disease N18.3 ; Chronic pain syndrome G89.4 ; Swelling of mandible R22.0 and Seizure disorder G40.909 [address] [id number] [place] [address] 41242- 5255 Jan, [address] 04575- 4286 Jan, [facility] [id number] [place] [address] 20537- 5432 Dec, Severe episode of recurrent major depressive disorder, without psychotic features F33.2 and Anxiety, generalized F41.1 [facility] [id number] [place]

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
--- OUTSIDE RECORDS SUMMARY | 2017-12-04 19:56 | XMS REPORT ---
Author Author MIRZA MARTINO [facility] Address [address] [place] [address] Care Team Providers Care Heart Nurse Name Role Phone MIRZA MARTINO Unavailable PROBLEMS Type Condition ICD9-CM Code [id number] Code Onset Dates Condition Status SNOMED Code Problem long term current use of insulin Z79.4 Active 295369579 Problem Recurrent major depressive disorder, remission status unspecified F33.9 Active 00397699 Problem Severe episode of recurrent major depressive disorder, without psychotic features F33.2 Active 61821450 Problem Tobacco abuse Z72.0 Active 660792907 Problem Anxiety, generalized F41.1 Active 54439545 Problem Stage 3 chronic kidney disease N18.3 Active 816020544 Problem Weakness R53.1 Active 11053559 Problem High risk sexual behavior Z72.51 Active 071889576 Problem Vaginal bleeding N93.9 Active 585464170 Problem Chronic nausea R11.0 Active 574689362 Problem Right lower quadrant abdominal pain R10.31 Active 803698105 Problem Self-inflicted injury Z72.89 Active 024112246 Problem Noncompliance with diabetes treatment Z91.19 Active 2764229 Problem Unspecified fall W19.XXXA Active 7562797 Problem Type 2 diabetes mellitus with diabetic polyneuropathy E11.42 Active 00627363 Problem Gastritis determined by endoscopy K29.70 Active 2148674 Problem Unspecified abdominal pain R10.9 Active 883793247 Problem Diarrhea, unspecified type R19.7 Active 96802738 Problem Left hip pain M25.552 Active 84096763 Problem Closed nondisplaced fracture of second metatarsal bone of left foot, initial encounter S92.325A Active 12910024 Problem Neck pain M54.2 Active 49753473 Problem Thrush B37.0 Active 04989526 Problem Anxiety F41.9 Active 95633007 Problem Swelling of both lower extremities M79.89 Active [id number] Problem Essential hypertension I10 Active 30106672 Problem Edema of both legs R60.0 Active 691613778 Problem Acquired hypothyroidism E03.9 Active 523935926 Problem Blister (nonthermal), right foot, initial encounter S90.821A Active 422267189 Problem Congestive heart failure, unspecified congestive heart failure chronicity, unspecified congestive heart failure type I50.9 Active 23961495 Problem Closed nondisplaced fracture of third metatarsal bone of left foot, initial encounter S92.335A Active 636196519 Problem Port catheter in place Z95.828 Active 632765014 Problem Chronic congestive heart failure, unspecified congestive heart failure type I50.9 Active 29948279 Problem Primary insomnia F51.01 Active 0772638 Problem Postural hypotension I95.1 Active 82358245 Problem Screening breast examination Z12.39 Active 463071762 Problem Acute non-recurrent maxillary sinusitis J01.00 Active 69575344 Problem Type 2 diabetes mellitus with diabetic autonomic (poly)neuropathy E11.43 Active 121353855 Problem Syncope, unspecified syncope type R55 Active 067012344 Problem Chronic pain syndrome G89.4 Active 406102676 Problem Acute pain of right shoulder M25.511 Active 53989720 Problem Epigastric pain R10.13 Active 56482494 Problem Seizure disorder G40.909 Active 287932080 Problem Gastroparesis K31.84 Active 830726243 Problem Chronic superficial gastritis without bleeding K29.30 Active 221671516 Problem Seasonal allergic rhinitis, unspecified allergic rhinitis trigger J30.2 Active 277208940 Problem Swelling of mandible R22.0 Active 344173156 ALLERGIES Substance Reaction Event Type Date Status Compazine Unknown Drug Allergy October, Active Zofran Unknown Drug Allergy October, Active Tizanidine HCl seizure Drug Allergy October, Active Sulfamethoxazole-Trimethoprim Unknown Drug Allergy October, Active Metoclopramide HCl Unknown Drug Allergy October, Active Iodine Unknown Drug Allergy October, Active Hydrocodone-Acetaminophen Unknown Drug Allergy October, Active Codeine Sulfate Unknown Drug Allergy October, Active Acetaminophen Unknown Drug Allergy October, Active SOCIAL HISTORY Never Assessed PLAN OF CARE Activity Details Follow Up 4 Weeks Reason:dm VITAL SIGNS Height 62 in 2016-11-01 Weight 254 lbs 2016-11-01 Temperature 98.6 degrees Fahrenheit 2016-11-01 Heart Rate 88 bpm 2016-11-01 Respiratory Rate 18 2016-11-01 BMI 46.45 kg/m2 2016-11-01 Blood pressure systolic 126 mmHg 2016-11-01 Blood pressure diastolic 78 mmHg 2016-11-01 MEDICATIONS Medication Instructions Dosage Frequency Start Date End Date Duration Status Naproxen 500 mg Orally every 12 hrs 1 tablet as needed 12h Active Tizanidine HCl 4 MG Orally Three times a day 1 tablet as needed 8h Active Seroquel XR 50MG Orally Once a day 2 tablets 24h 28 Active Escitalopram Oxalate 20 mg Orally Once a day 1 tablet 24h 30 Active Gabapentin 800 MG Orally 4 times a day 1 tablet 6h Active Fluticasone Propionate 50 MCG/ACT Nasally Once a day 1 spray in each nostril 24h October, 30 day(s) Active Furosemide 20 mg Orally Once a day 2 tablets 24h 05 days Active Zantac 150 MG Orally twice a day 1 tablet 12h 30 day(s) Active Promethazine HCl 25 MG 1 tablet as needed 2 times a day Orally 28 days 28 Active Temazepam 30 MG Orally Once a day 1 capsule at bedtime as needed 24h Active Benadryl Allergy 25 MG Orally Once a day at bedtime 2 tablet as needed Active Insulin Syringe 31G X 5/16 Active Luis Fernando Contour Test - In Vitro 3 times a day as directed 8h Jan, Active Nystatin 672434 UNIT/GM Externally Twice a day apply to abdominal fold twice a day 12h Active HumuLIN R U-500 KwikPen 500 UNIT/ML Subcutaneous 3 times a day 70 units 8h Active Atenolol 50 mg Orally Once a day 1 tablet 24h Active Nystatin 991958 UNIT/ML Mouth/Throat Four times a day 4 ml 6h 12 Mar, 2016 Active Chantix 1 MG Orally Twice a day 1 tablet 12h 16 Apr, 2016 30 Active Levothyroxine Sodium 75 mcg Orally Once a day 1 tablet 24h Active Oxygen 3L nasal canal Active Alprazolam 1 MG Orally Three times a day must last 28 days 1 tablet Active RESULTS No Results PROCEDURES Procedure Date Ordered Result Body Site GLUCOSE BLOOD TEST November 01, 2016 LAB NOT BILLED BY [facility] November 01, 2016 VENIPUNCT, ROUTINE* November 01, 2016 IMMUNIZATIONS No Known Immunizations MEDICAL (GENERAL) [...] vein (port for IV access) Dr. Hernandez [facility] 08-29-2013 Surgical History partial hysterectomy Surgical History EGD Hospitalization History transfusion given after delivery Hospitalization History Chest pain, uncontrolled Hyperglycemia--[facility] 12/15/15 Hospitalization History Influenza B Hospitalization History pneumonia Hospitalization History [facility] 07/16/16 Hospitalization History for high sugar 07/12
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
--- OUTSIDE RECORDS SUMMARY | 2017-12-04 19:59 | XMS REPORT ---
Author Author ROLF WAYNE [facility] Address [address] [place] [address] Care Team Providers Care Qa Tech Name Role Phone TONE ROLF Unavailable PROBLEMS Type Condition ICD9-CM Code BTD91-AE Code Onset Dates Condition Status SNOMED Code Problem Postural hypotension I95.1 Active 90569417 Problem Seizure disorder G40.909 Active 458060432 Problem Seasonal allergic rhinitis, unspecified allergic rhinitis trigger J30.2 Active 522955701 Problem Closed nondisplaced fracture of second metatarsal bone of left foot, initial encounter S92.325A Active 32456275 Problem Essential hypertension I10 Active 20861610 Problem Multiple neurological symptoms R29.90 Active 215196518 Problem Port catheter in place Z95.828 Active 704984523 Problem Stage 3 chronic kidney disease N18.3 Active 521156079 Problem Gastritis determined by endoscopy K29.70 Active 7433180 Problem Self-inflicted injury Z72.89 Active 601329698 Problem Borderline personality disorder in adult F60.3 Active 92350592 Problem Chronic congestive heart failure, unspecified congestive heart failure type I50.9 Active 20633672 Problem Chronic pain syndrome G89.4 Active 796276428 Problem Primary insomnia F51.01 Active 5038071 Problem Acquired hypothyroidism E03.9 Active 530825048 Problem Gastroparesis K31.84 Active 029209732 Problem Severe episode of recurrent major depressive disorder, without 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 Active 27635652 Problem Anxiety, generalized F41.1 Active 84647382 Problem jail current use of insulin Z79.4 Active 069376248 Problem Type 2 diabetes mellitus with diabetic polyneuropathy E11.42 Active 07924606 Problem Tobacco abuse Z72.0 Active 379549366 Problem Noncompliance with diabetes treatment Z91.19 Active 9104844 ALLERGIES No Information ENCOUNTERS Encounter Location Date Diagnosis [facility] [address] [facility] [id number] [address] October, [facility] [id number] [address] October, [facility] [id number] [place] [address] 32755- 8097 October, [facility] [id number] [place] [address] 54908- 9634 October, [facility] [id number] [place] [address] 88421- 5104 Sep, Severe episode of recurrent major depressive disorder, without psychotic features F33.2 ; Anxiety, generalized F41.1 and Borderline personality disorder in adult F60.3 [facility] [id number] [place] [address] 11821- 3243 Sep, [facility] [id number] [place] [address] 00556- 2151 Sep, Throat pain R07.0 ; BMI 40.0-44.9, adult Z68.41 and Chronic pain syndrome G89.4 [facility] [address] [address] 88[address] Sep, [facility] [id number] [place] [address] 06945- 9978 Sep, [facility] [id number] [address]- 5272 Sep, [facility] [id number] [place] [address] 12439- 8583 Sep, Anxiety, generalized F41.1 [facility] [id number] [place] [address] 84603- 1231 Sep, [facility] [id number] [place] [address] 56160- 4149 Sep, Stage 3 chronic kidney disease N18.3 [facility] [id number] [place] [address] 11707- 8962 Sep, Stage 3 chronic kidney disease N18.3 and Chronic pain syndrome G89.4 [facility] [id number] [place] [address] 59297- 5719 Sep, Severe episode of recurrent major depressive disorder, without psychotic features F33.2 ; Anxiety, generalized F41.1 and Borderline personality disorder in adult F60.3 [facility] [id number] [place] [address] 72211- 0897 Sep, Chronic pain syndrome G89.4 ; Anxiety, generalized F41.1 and BMI 45.0-49.9, adult Z68.42 [facility] [id number] [place] [address] 88477- 0065 Sep, [facility] [id number] [place] [address] 15468- 6894 Sep, [facility] [id number] [place] [address] 24818- 6696 Sep, Severe episode of recurrent major depressive disorder, without psychotic features F33.2 ; Anxiety, generalized F41.1 and Borderline personality disorder in adult F60.3 [facility] [id number] [place] [address] 28539- 6844 Sep, [facility] [id number] [place] [address] 46842 -7214 Aug, Dysuria R30.0 ; Type 2 diabetes mellitus with diabetic polyneuropathy E11.42 ; Oral abscess K12.2 and BMI 40.0-44.9, adult Z68.41 [facility] [id number] [place] [address] 14405- 5669 Aug, [facility] [id number] [place] [address] 52609- 0310 Aug, [facility] [id number] [place] [address] 02017- 6723 Aug, [facility] [id number] [place] [address] 73676- 8675 27 Aug, 2017 [facility] [address] [address]- 8067 27 Aug, 2017 Severe episode of recurrent major depressive disorder, without psychotic features F33.2 ; Anxiety, generalized F41.1 and Borderline personality disorder in adult F60.3 [facility] [address] [address]- 6017 22 Aug, 2017 [facility] [id number] [place] [address] 70917- 7746 20 Aug, 2017 [facility] [id number] [place] [address] 87559- 6188 19 Aug, 2017 Severe episode of recurrent major depressive disorder, without psychotic features F33.2 ; Anxiety, generalized F41.1 and Borderline personality disorder in adult F60.3 [facility] [address] [address] 17 Aug, 2017 [facility] [id number] [place] [address] 02559- 3185 15 Aug, 2017 [place] [id number] [place] [address] 60777- 2532 14 Aug, 2017 [facility] [address] [address] 14 Aug, 2017 Dysuria R30.0 ; Dental infection K04.7 ; Acute cystitis with hematuria N30.01 and BMI 45.0-49.9, adult Z68.42 [facility] [address] [address]- 8868 14 Aug, 2017 Severe episode of recurrent major depressive disorder, without psychotic features F33.2 ; Anxiety, generalized F41.1 and Borderline personality disorder in adult F60.3 [facility] [address] [address]- 7408 09 Aug, 2017 [facility] [address] [address]- 0426 08 Aug, 2017 Closed nondisplaced fracture of second metatarsal bone of left foot, initial encounter S92.325A and Chronic pain syndrome G89.4 [facility] [id number] [place] [address] 48747- 3726 08 Aug, 2017 Type 2 diabetes mellitus with diabetic polyneuropathy E11.42 [facility] [address] [address]- 8686 08 Aug, 2017 Severe episode of recurrent major depressive disorder, without psychotic features F33.2 ; Anxiety, generalized F41.1 and Borderline personality disorder in adult F60.3 [facility] [id number] [address]- 0536 07 Aug, 2017 [facility] [id number] [place] [address] [id number]- 2786 Aug, [facility] [id number] [place] [address] 77560- 7156 Aug, [facility] [id number] [place] [address] 42100- 4006 Aug, [facility] [id number] [place] [address] 33808- 6721 Aug, [facility] [id number] [place] [address] 18171- 0876 Jul, [facility] [address] [address]- 9886 Jul, [facility] [id number] [place] [address] 45795- 2545 Jul, Severe episode of recurrent major depressive disorder, without psychotic features F33.2 ; Anxiety, generalized F41.1 and Borderline personality disorder in adult F60.3 [facility] [address] [address]- 7356 Jul, Type 2 diabetes mellitus with diabetic polyneuropathy E11.42 [facility] [id number] [place] [address] 41976- 0084 Jul, Closed nondisplaced fracture of second metatarsal bone of left foot, initial encounter S92.325A and Closed nondisplaced fracture of third metatarsal bone of left foot, initial encounter S92.335A [facility] [id number] [place] [address] 53230- 5090 Jul, [facility] [id number] [place] [address] 99841- 9503 20 Jul, 2017 Closed nondisplaced fracture of second metatarsal bone of left foot, initial encounter S92.325A ; Acute left ankle pain M25.572 ; Acute midline low back pain without sciatica M54.5 and Seasonal allergic rhinitis, unspecified allergic rhinitis trigger J30.2 [place] [id number] [place] [address] 92473- 6680 Jul, [place] [id number] [place] [address] 62333- 0604 Jul, [place] [id number] [place] [address] 58035- 5798 15 Jul, 2017 [place] [id number] [place] [address] 31811- 7677 15 Jul, 2017 Frequent falls R29.6 [place] [id number] [place] [address] 74957- 1703 14 Jul, 2017 Frequent falls R29.6 [place] [id number] [place] [address] 92556- 2053 07 Jul, 2017 Severe episode of recurrent major depressive disorder, without psychotic features F33.2 ; Anxiety, generalized F41.1 and Borderline personality disorder in adult F60.3 [place] [id number] [place] [address] 81087- 6326 07 Jul, 2017 Chronic pain syndrome G89.4 [place] [id number] [place] [address] 50047- 4476 07 Jul, 2017 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 frame tender current use of insulin Z79.4 [place] [id number] [place] [address] 33243- 2889 Jul, [facility] [address] 98951- 2022 Jul, Type 2 diabetes mellitus with diabetic polyneuropathy E11.42 [place] [id number] [place] [address] 26093- 5825 Jun, jail current use of insulin Z79.4 and Thrush B37.0 [place] [id number] [place] [address] 19585- 3409 Jun, Severe episode of recurrent major depressive disorder, without psychotic features F33.2 ; Anxiety, generalized F41.1 and Borderline personality disorder in adult F60.3 [place] [address] 37775- 1525 Jun, Severe episode of recurrent major depressive disorder, without psychotic features F33.2 ; Anxiety, generalized F41.1 and Borderline personality disorder in adult F60.3 [place] [id number] [place] [address] 77674- 7506 Jun, Frequent falls R29.6 ; Bronchitis J40 ; BMI 40.0-44.9, adult Z68.41 and Coccygeal pain, acute M53.3 [place] [id number] [place] [address] 19541- 7275 Jun, [facility] [id number] [place] [address] 03899 -9982 Jun, [facility] [id number] [place] [address] 31344- 5881 Jun, [facility] [address] 96784- 5485 Jun, Dental caries, unspecified K02.9 [facility] [id number] [place] [address] 19756- 6632 Jun, Acute non-recurrent maxillary sinusitis J01.00 and BMI 40.0- 44.9, adult Z68.41 [place] [id number] [place] [address] 08256- 9055 Jun, [place] [id number] [place] [address] 29256- 3592 Jun, Severe episode of recurrent major depressive disorder, without psychotic features F33.2 ; Anxiety, generalized F41.1 and Borderline personality disorder in adult F60.3 [place] [id number] [place] [address] 82724- 8247 11 Jun, 2017 Closed nondisplaced fracture of third metatarsal bone of left foot with routine healing, subsequent encounter S92.335D ; Closed nondisplaced fracture of second metatarsal bone of left foot with routine healing, subsequent encounter S92.325D and Closed nondisplaced fracture of fourth metatarsal bone of left foot with routine healing, subsequent encounter S92.345D [place] [id number] [place] [address] 07433- 0640 Jun, Severe episode of recurrent major depressive disorder, without psychotic features F33.2 ; Anxiety, generalized F41.1 and Borderline personality disorder in adult F60.3 [place] [address] [place] [address] 40270- 0068 Jun, [place] [id number] [place] [address] 13058- 3660 Jun, [place] [id number] [place] [address] 70669- 7786 Jun, [facility] [id number] [address]- 6484 Jun, [place] [id number] [place] [address] 64513- 1293 Jun, [place] [id number] [place] [address] 45725- 4537 Jun, Anxiety F41.9 [place] [address] [address]- 6815 Jun, [place] [address] [place] [address] 25699- 5361 Jun, [place] [id number] [place] [address] 05940- 9729 Jun, Type 2 diabetes mellitus with diabetic autonomic (poly) neuropathy E11.43 [place] [address] [place] [address] 76373- 0936 Jun, Severe episode of recurrent major depressive disorder, without psychotic features F33.2 ; Anxiety, generalized F41.1 and Borderline personality disorder in adult F60.3 [place] [id number] [place] [address] 59037- 7229 Jun, Type 2 diabetes mellitus with diabetic autonomic (poly) neuropathy E11.43 and Chronic pain syndrome G89.4 [place] [id number] [place] [address] 81604- 0828 May, Recent urinary tract infection Z87.440 ; Deliberate self- cutting Z72.89 ; Chest discomfort R07.89 ; BMI 40.0-44.9, adult Z68.41 and Worried well Z71.1 [address] [place] [address] 71701- 2937 May, Severe episode of recurrent major depressive disorder, without psychotic features F33.2 ; Anxiety, generalized F41.1 and Borderline personality disorder in adult F60.3 [place] [address] [address]- 2903 18 May, 2017 [place] [id number] [place] [address] 30494- 6739 14 May, 2017 [place] [id number] [place] [address] 42366- 8841 May, Severe episode of recurrent major depressive disorder, without psychotic features F33.2 ; Anxiety, generalized F41.1 and Borderline personality disorder in adult F60.3 [place] [address] [place] [address] 65086- 8404 12 May, 2017 Type 2 diabetes mellitus with diabetic autonomic (poly) neuropathy E11.43 [facility] [id number] [place] [address] 57801- 6437 May, [place] [address] [place] [address] 54374- 3290 May, Type 2 diabetes mellitus with diabetic autonomic (poly) neuropathy E11.43 ; Multiple neurological symptoms R29.90 ; Dysuria R30.0 ; Tobacco abuse Z72.0 ; Right hip pain M25.551 ; Anxiety F41.9 ; Gastritis determined by endoscopy K29.70 ; Chronic pain syndrome G89.4 ; Acute non- recurrent maxillary sinusitis J01.00 ; Self mutilating behavior Z72.89 and BMI 40.0-44.9, adult Z68.41 [place] [address] 47705- 8783 May, Severe episode of recurrent major depressive disorder, without psychotic features F33.2 ; Anxiety, generalized F41.1 and Borderline personality disorder in adult F60.3 [place] [address] [place] [address] 09155- 7013 Apr, [place] [address] [place] [address] 93461- 1610 Apr, [facility] [id number] [place] [address] 01272 -6899 Apr, [facility] [id number] [place] [address] 86777 -0840 Apr, Aspiration pneumonia of right lower lobe, unspecified aspiration pneumonia type J69.0 [place] [address] [place] [address] 19840- 1772 Apr, Severe episode of recurrent major depressive disorder, without psychotic features F33.2 ; Anxiety, generalized F41.1 and Borderline personality disorder in adult F60.3 [place] [address] [place] [address]- 5261 Apr, [facility] [id number] [place] [address] 69585- 8005 Apr, Chronic pain syndrome G89.4 [facility] [id number] [place] [address] 94218- 0865 21 Apr, 2017 Severe episode of recurrent major depressive disorder, without psychotic features F33.2 ; Anxiety, generalized F41.1 and Borderline personality disorder in adult F60.3 [place] [address] [place] [address] 37674- 4734 16 Apr, 2017 Severe episode of recurrent major depressive disorder, without psychotic features F33.2 ; Anxiety, generalized F41.1 and Borderline personality disorder in adult F60.3 [place] [address] [place] [address] 84563- 1730 16 Apr, 2017 Closed nondisplaced fracture of third metatarsal bone of left foot with routine healing, subsequent encounter S92.335D ; Closed nondisplaced fracture of fourth metatarsal bone of left foot with routine healing, subsequent encounter S92.345D and Closed nondisplaced fracture of second metatarsal bone of left foot with routine healing, subsequent encounter S92.325D [place] [address] [place] [address] 97364- 1863 16 Apr, 2017 [place] [address] [place] [address] 89205- 2005 15 Apr, 2017 [place] [id number] [place] [address] 43640- 0897 14 Apr, 2017 [place] [address] [place] [address] 80892- 6325 Apr, Screening breast examination Z12.31 [place] [address] [place] [address] 20482- 5090 09 Apr, 2017 [place] [id number] [place] [address] 01825- 3805 Apr, Type 2 diabetes mellitus with diabetic autonomic (poly) neuropathy E11.43 [facility] [address] [place] [address] 38790- 4455 Apr, Severe episode of recurrent major depressive disorder, without psychotic features F33.2 ; Anxiety, generalized F41.1 and Borderline personality disorder in adult F60.3 [facility] [address] [place] [address] 85519- 8820 Apr, Type 2 diabetes mellitus with diabetic autonomic (poly) neuropathy E11.43 ; Chronic pain syndrome G89.4 and Anxiety F41.9 [facility] [id number] [place] [address] 24256 -6053 Apr, BMI 45.0-49.9, adult Z68.42 [facility] [id number] [place] [address] 69939 -8620 Apr, Avulsion of toenail, initial encounter S91.209A and Acute non-recurrent maxillary sinusitis J01.00 [facility] [id number] [place] [address] 89278- 2791 Apr, [facility] [id number] [place] [address] 91309- 0696 Mar, [facility] [id number] [place] [address] 83439- 2346 Mar, Severe episode of recurrent major depressive disorder, without psychotic features F33.2 ; Anxiety, generalized F41.1 and Borderline personality disorder in adult F60.3 [facility] [id number] [place] [address] 63425- 6470 Mar, [facility] [id number] [place] [address] 24927- 2072 Mar, [facility] [id number] [place] [address] 64893- 6260 Mar, [facility] [id number] [place] [address] 95940- 2560 Mar, Seizure disorder G40.909 [facility] [address] [address]- 6192 Mar, [facility] [id number] [place] [address] 73542- 9411 Mar, [facility] [id number] [place] [address] 48806 -3990 Mar, Left foot pain M79.672 ; Stage 3 chronic kidney disease N18.3 and Closed nondisplaced fracture of second metatarsal bone of left foot, initial encounter S92.325A [facility] [id number] [place] [address] 36824- 8758 Mar, Severe episode of recurrent major depressive disorder, without psychotic features F33.2 and Anxiety, generalized F41.1 [facility] [id number] [place] [address] 14863- 9229 Mar, [facility] [id number] [place] [address] 15602- 3496 Mar, Closed nondisplaced fracture of second metatarsal bone of left foot, initial encounter S92.325A and Closed nondisplaced fracture of third metatarsal bone of left foot, initial encounter S92.335A [facility] [id number] [place] [address] 05743- 7809 Mar, Seizure disorder G40.909 [facility] [id number] [place] [address] [id number]- [id number] Mar, [facility] [id number] [place] [address] [id number]- [id number] Mar, [facility] [id number] [place] [address] [id number]- [phone] Mar, [facility] [id number] [place] [address] [id number]- [phone] Mar, [facility] [id number] [place] [address] 40411- 8399 Mar, High risk sexual behavior Z72.51 [facility] [id number] [place] [address] [id number]- 6584 Mar, Severe episode of recurrent major depressive disorder, without psychotic features F33.2 and Anxiety, generalized F41.1 [facility] [id number] [place] [place] [address] 80771- 7790 Mar, Anxiety F41.9 and Type 2 diabetes mellitus with diabetic autonomic (poly)neuropathy E11.43 [facility] [id number] [place] [address] 73693- 3937 Mar, Anxiety F41.9 [facility] [facility] [id number] [place] [address] 96483- 2116 Mar, High risk sexual behavior Z72.51 [facility] [id number] [place] [address] 26949- 0258 Mar, Chronic pain syndrome G89.4 [facility] [id number] [place] [address] 73245- 9594 Mar, Type 2 diabetes mellitus with diabetic autonomic (poly) neuropathy E11.43 [facility] [id number] [place] [address] 82369- 7504 Mar, [facility] [id number] [place] [address] 50139- 4144 Mar, Closed nondisplaced fracture of second metatarsal bone of left foot, initial encounter S92.325A ; Chronic pain syndrome G89.4 ; Closed nondisplaced fracture of third metatarsal bone of left foot, initial encounter S92.335A ; Acute left ankle pain M25.572 and Type 2 diabetes mellitus with diabetic autonomic (poly)neuropathy E11.43 [facility] [id number] [place] [address] 51269- 8032 Mar, [facility] [id number] [place] [address] 38566- 9714 Mar, [facility] [id number] [address] 34[address] Mar, Severe episode of recurrent major depressive disorder, without psychotic features F33.2 and Anxiety, generalized F41.1 [facility] [id number] [place] [address] 02882- 6655 27 Feb, 2017 [facility] [id number] [place] [address] 06763- 1102 Feb, Renal insufficiency N28.9 [facility] [id number] [place] [address] 86789- 5574 Feb, [facility] [id number] [place] [address] 99000- 7724 Feb, Severe episode of recurrent major depressive disorder, without psychotic features F33.2 and Anxiety, generalized F41.1 [facility] [id number] [place] [address] 97798- 3795 25 Feb, 2017 [facility] [id number] [place] [address] 53295- 0498 22 Feb, 2017 [facility] [id number] [place] [address] 03470- 5330 20 Feb, 2017 Renal insufficiency N28.9 [facility] [id number] [place] [address] 77500- 2525 19 Feb, 2017 [facility] [id number] [place] [address] 31535 -1884 18 Feb, 2017 [facility] [id number] [place] [address] 46493- 8785 14 Feb, 2017 [facility] [id number] [place] [address] 64482- 6992 13 Feb, 2017 Severe episode of recurrent major depressive disorder, without psychotic features F33.2 and Anxiety, generalized F41.1 [facility] [id number] [place] [address] 86682- 0938 13 Feb, 2017 Closed nondisplaced fracture of second metatarsal bone of left foot, initial encounter S92.325A ; Chronic pain syndrome G89.4 ; Closed nondisplaced fracture of third metatarsal bone of left foot, initial encounter S92.335A ; Left hip pain M25.552 and Stage 3 chronic kidney disease N18.3 [facility] [address] [facility] [id number] [address] Feb, [facility] [id number] [place] [address] 67974- 4284 Feb, [facility] [address] [facility] [id number] [place] [address] 84565- 1084 Feb, Closed nondisplaced fracture of second metatarsal bone of left foot, initial encounter S92.325A and Closed nondisplaced fracture of third metatarsal bone of left foot, initial encounter S92.335A [place] [id number] [place] [address] 04188- 8337 Feb, [facility] [id number] [place] [address] 32002- 7487 Feb, Anxiety F41.9 [facility] [id number] [place] [address] 57261- 8028 Feb, [facility] [id number] [place] [address] 88613- 7761 Feb, Chronic pain syndrome G89.4 [facility] [id number] [place] [address] 45159- 5835 Feb, Left foot pain M79.672 ; Closed nondisplaced fracture of second metatarsal bone of left foot, initial encounter S92.325A ; Closed nondisplaced fracture of third metatarsal bone of left foot, initial encounter S92.335A and Oral infection K12.2 [facility] [address] [place] [id number] [place] [address] 90937- 6521 Feb, [facility] [id number] [place] [address] 95799- 6137 Jan, [facility] [id number] [place] [address] 89988- 5444 Jan, Type 2 diabetes mellitus with diabetic autonomic (poly) neuropathy E11.43 and Congestive heart failure, unspecified congestive heart failure chronicity, unspecified congestive heart failure type I50.9 [place] [id number] [place] [address] 72382- 1548 Jan, Congestive heart failure, unspecified congestive heart failure chronicity, unspecified congestive heart failure type I50.9 and Stage 3 chronic kidney disease N18.3 [place] [id number] [place] [address] 02435- 0909 Jan, Stage 3 chronic kidney disease N18.3 ; Edema of both legs R60.0 ; Chronic congestive heart failure, unspecified congestive heart failure type I50.9 ; Acute low back pain without sciatica, unspecified back pain laterality M54.5 ; Chronic nausea R11.0 and Primary insomnia F51.01 [place] [id number] [place] [address] 66915- 7301 Jan, Severe episode of recurrent major depressive disorder, without psychotic features F33.2 and Anxiety, generalized F41.1 [place] [id number] [place] [address] 09375- 5458 Jan, [facility] [id number] [place] [address] 97296- 0089 Jan, [facility] [id number] [place] [address] 20315- 5451 Jan, [facility] [id number] [place] [address] 96334- 3365 Jan, [facility] [id number] [place] [address] 81291- 6665 Jan, Anxiety F41.9 and Severe episode of recurrent major depressive disorder, without psychotic features F33.2 [place] [id number] [place] [address] 92309- 6149 Jan, Type 2 diabetes mellitus with diabetic autonomic (poly) neuropathy E11.43 [place] [id number] [place] [address] 59321- 1786 Jan, Severe episode of recurrent major depressive disorder, without psychotic features F33.2 and Type 2 diabetes mellitus with diabetic autonomic (poly)neuropathy E11.43 [facility] [id number] [place] [address] 12277- 4845 Jan, [place] [address] 90438- 6681 Jan, [place] [address] 69801- 7352 Jan, Stage 3 chronic kidney disease N18.3 ; Seizure disorder G40.909 ; Edema of both legs R60.0 and Blister (nonthermal), right foot, initial encounter S90.821A [place] [address] 63019- 2254 Jan, Severe episode of recurrent major depressive disorder, without psychotic features F33.2 and Anxiety, generalized F41.1 [facility] [id number] [place] [address] 26272- 5708 Jan, Severe episode of recurrent major depressive disorder, without psychotic features F33.2 and Anxiety, generalized F41.1 [facility] [id number] [place] [address] 60427- 2670 Jan, [place] [address] 18191- 6091 Jan, Anxiety F41.9 and Primary insomnia F51.01 [place] [address] 19401- 4391 Jan, Type 2 diabetes mellitus with diabetic autonomic (poly) neuropathy E11.43 ; 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 frame tender current use of insulin Z79.4 ; Stage 3 chronic kidney disease N18.3 ; Chronic pain syndrome G89.4 ; Swelling of mandible R22.0 and Seizure disorder G40.909 [place] [address] [place] [address]- 2426 Jan, [facility] [id number] [place] [address] 40352- 3281 Jan, [facility] [id number] [place] [address] 13252- 1970 Dec, Severe episode of recurrent major depressive disorder, without psychotic features F33.2 and Anxiety, generalized F41.1 [place] [id number] [place] [address] 11296- 8745 Dec, Diarrhea, unspecified type R19.7 ; Gastritis determined by endoscopy K29.70 ; Dysuria R30.0 ; Unspecified abdominal pain R10.9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
--- OUTSIDE RECORDS SUMMARY | 2017-12-04 20:00 | XMS REPORT ---
Author Author MIRZA MARTINO Organization [facility] Address [address] [place] [address] Care Team Providers Care Receiving Specialist Name Role Phone HAIMLindsey MIRZA Unavailable PROBLEMS Type Condition ICD9-CM Code PZE81-WA Code Onset Dates Condition Status SNOMED Code Problem Postural hypotension I95.1 Active 26951601 Problem Seizure disorder G40.909 Active 911888159 Problem Seasonal allergic rhinitis, unspecified allergic rhinitis trigger J30.2 Active 868821454 Problem Closed nondisplaced fracture of second metatarsal bone of left foot, initial encounter S92.325A Active 53019426 Problem Essential hypertension I10 Active 83948044 Problem Multiple neurological symptoms R29.90 Active 320024464 Problem Port catheter in place Z95.828 Active 698790650 Problem Stage 3 chronic kidney disease N18.3 Active 159031508 Problem Gastritis determined by endoscopy K29.70 Active 3827975 Problem Self-inflicted injury Z72.89 Active 804554692 Problem Borderline personality disorder in adult F60.3 Active 74325439 Problem Chronic congestive heart failure, unspecified congestive heart failure type I50.9 Active 30066052 Problem Chronic pain syndrome G89.4 Active 304548403 Problem Primary insomnia F51.01 Active 2257612 Problem Acquired hypothyroidism E03.9 Active 082374686 Problem Gastroparesis K31.84 Active 257338991 Problem Severe episode of recurrent major depressive disorder, without psychotic features F33.2 Active 52833771 Problem Anxiety, generalized F41.1 Active 91776212 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 [id number], [place] [address] October, [facility] [id number] [id number] Sep, [facility] [id number] [place] [address]662- 0133 Sep, [facility] [id number] [place] [address] 14692- 5211 Sep, [facility] [address] [address]- [address] Sep, [facility] [id number] [place] [address] 24862- 7901 Sep, Chronic pain syndrome G89.4 ; Anxiety, generalized F41.1 and BMI 45.0-49.9, adult Z68.42 [facility] [id number] [place] [address] 27073- 8939 Sep, [facility] [id number] [place] [address] 55822- 2517 Sep, [facility] [id number] [place] [address] 17209- 5662 Sep, Severe episode of recurrent major depressive disorder, without psychotic features F33.2 ; Anxiety, generalized F41.1 and Borderline personality disorder in adult F60.3 [facility] [id number] [place] [address] 48003- 5389 Sep, [facility] [id number] [place] [address] 24074 -4919 Aug, Dysuria R30.0 ; Type 2 diabetes mellitus with diabetic polyneuropathy E11.42 ; Oral abscess K12.2 and BMI 40.0-44.[address], [address] [facility] [id number] [place] [address] 15052- 0144 Aug, [facility] [id number] [place] [address] 23845- 1723 Aug, [facility] [address], [place] [address] [address], [address] [facility] [id number] [place] [address] 67327- 7308 27 Aug, 2017 [facility] [address], [place] [address] 27 Aug, 2017 Severe episode of recurrent major depressive disorder, without psychotic features F33.2 ; Anxiety, generalized F41.1 and Borderline personality disorder in adult F60.3 [facility] [address], [place] [address] [address], [address] [facility] [id number] [place] [address] 35369- 0485 [address], [address] [facility] [id number] [place] [address] 58263- 4272 19 Aug, 2017 Severe episode of recurrent major depressive disorder, without psychotic features F33.2 ; Anxiety, generalized F41.1 and Borderline personality disorder in adult F60.3 [facility] [address], [place] [address] [address], [address] [facility] [id number] [place] [address] 58982- 5029 [address], [address] [facility] [address], [place] [address] 1117 14 Aug, 2017 [facility] [id number], [place] [address] 14 Aug, 2017 Dysuria R30.0 ; Dental infection K04.7 ; Acute cystitis with hematuria N30.01 and BMI 45.0-49.9, adult Z68.42 [facility] [address], [place] [address] 14 Aug, 2017 Severe episode of recurrent major depressive disorder, without psychotic features F33.2 ; Anxiety, generalized F41.1 and Borderline personality disorder in adult F60.3 [facility] [id number], [place] [address] Aug, [facility] [address], [place] [address] Aug, Closed nondisplaced fracture of second metatarsal bone of left foot, initial encounter S92.325A and Chronic pain syndrome G89.4 [facility] [id number], [place] [address] Aug, Type 2 diabetes mellitus with diabetic polyneuropathy E11.42 [facility] [id number] [place] [address] 53184- 2303 Aug, Severe episode of recurrent major depressive disorder, without psychotic features F33.2 ; Anxiety, generalized F41.1 and Borderline personality disorder in adult F60.3 [facility] [id number], [place] [address] Aug, [facility] [id number] [place] [address] 13013- 1278 Aug, [facility] [id number] [address] Aug, [facility] [id number] [place] [address] 12782- 2993 Aug, [facility] [id number] [address] Aug, [facility] [id number] [place] [address] 43906- 5410 Jul, [facility] [id number], [place] [address] Jul, [facility] [id number] [place] [address] 39346- 5704 Jul, Severe episode of recurrent major depressive disorder, without psychotic features F33.2 ; Anxiety, generalized F41.1 and Borderline personality disorder in adult F60.3 [facility] [id number] [place] [address] 46262- 1433 Jul, Type 2 diabetes mellitus with diabetic polyneuropathy E11.42 [facility] [id number] [place] [address] 13396- 8383 Jul, Closed nondisplaced fracture of second metatarsal bone of left foot, initial encounter S92.325A and Closed nondisplaced fracture of third metatarsal bone of left foot, initial encounter S92.335A [facility] [id number] [place] [address] 63392- 5495 Jul, [facility] [address] [place] [address] 58843- 1311 Jul, Closed nondisplaced fracture of second metatarsal bone of left foot, initial encounter S92.325A ; Acute left ankle pain M25.572 ; Acute midline low back pain without sciatica M54.5 and Seasonal allergic rhinitis, unspecified allergic rhinitis trigger J30.2 [facility] [id number] [place] [address] 53298- 6707 Jul, [facility] [id number] [place] [address] 52385- 1178 Jul, [facility] [id number] [place] [address] 79317- 6379 15 Jul, 2017 [place] [place] [address] [place] [address] 20172- 8621 15 Jul, 2017 Frequent falls R29.6 [facility] [address] [place] [address] 52725- 8382 14 Jul, 2017 Frequent falls R29.6 [facility] [id number] [place] [address] 51624- 7694 07 Jul, 2017 Severe episode of recurrent major depressive disorder, without psychotic features F33.2 ; Anxiety, generalized F41.1 and Borderline personality disorder in adult F60.3 [facility] [id number] [place] [address] 01742- 7407 Jul, Chronic pain syndrome G89.4 [facility] [id number] [place] [address] 81892- 8277 Jul, alf current use of insulin Z79.4 [facility] [id number] [place] [address] 19162- 5421 Jul, [facility] [id number] [place] [address] 45864- 1234 Jul, Type 2 diabetes mellitus with diabetic polyneuropathy E11.42 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 and Thrush B37.0 [facility] [id number] [place] [address] 56051- 0361 Jun, Severe episode of recurrent major depressive disorder, without psychotic features F33.2 ; Anxiety, generalized F41.1 and Borderline personality disorder in adult F60.3 [place] [id number] [place] [address] 21263- 2067 Jun, Severe episode of recurrent major depressive disorder, without psychotic features F33.2 ; Anxiety, generalized F41.1 and Borderline personality disorder in adult F60.3 [place] [id number] [place] [address] 04963- 1898 Jun, Frequent falls R29.6 ; Bronchitis J40 ; BMI 40.0-44.9, adult Z68.41 and Coccygeal pain, acute M53.3 [facility] [id number] [place] [address] 59444- 2876 Jun, [facility] [id number] [place] [address] 60049 -5053 Jun, [facility] [id number] [place] [address] 43740- 4528 Jun, [facility] [address] 79022- 6197 Jun, Dental caries, unspecified K02.9 [facility] [address] [place] [address] 55537- 3867 Jun, Acute non-recurrent maxillary sinusitis J01.00 and BMI 40.0- 44.9, adult Z68.41 [facility] [id number] [place] [address] 16407- 8865 Jun, [facility] [id number] [place] [address] 93868- 8925 Jun, Severe episode of recurrent major depressive disorder, without psychotic features F33.2 ; Anxiety, generalized F41.1 and Borderline personality disorder in adult F60.3 [facility] [id number] [place] [address] 06736- 5971 Jun, Closed nondisplaced fracture of third metatarsal bone of left foot with routine healing, subsequent encounter S92.335D ; Closed nondisplaced fracture of second metatarsal bone of left foot with routine healing, subsequent encounter S92.325D and Closed nondisplaced fracture of fourth metatarsal bone of left foot with routine healing, subsequent encounter S92.345D [place] [address] [place] [address] 29058- 6163 Jun, Severe episode of recurrent major depressive disorder, without psychotic features F33.2 ; Anxiety, generalized F41.1 and Borderline personality disorder in adult F60.3 [place] [place] [address] [place] [address] 13151- 2814 Jun, [facility] [id number] [place] [address] 16555- 3530 Jun, [facility] [id number] [place] [address] 86671- 0671 Jun, [facility] [id number] [place] [address] 05285- 7971 Jun, [facility] [id number] [place] [address] 64330- 2772 Jun, [place] [address] [place] [address] 39986- 1975 Jun, Anxiety F41.9 [facility] [id number] [place] [address] 53905- 2789 Jun, [facility] [id number] [place] [address] 92020- 5028 Jun, [facility] [id number] [place] [address] 92597- 2825 Jun, Type 2 diabetes mellitus with diabetic autonomic (poly) neuropathy E11.43 [facility] [id number] [place] [address] 65265- 4777 Jun, Severe episode of recurrent major depressive disorder, without psychotic features F33.2 ; Anxiety, generalized F41.1 and Borderline personality disorder in adult F60.3 [facility] [id number] [place] [address] 98622- 5405 Jun, Type 2 diabetes mellitus with diabetic autonomic (poly) neuropathy E11.43 and Chronic pain syndrome G89.4 [facility] [id number] [place] [address] 72790- 5090 May, Recent urinary tract infection Z87.440 ; Deliberate self- cutting Z72.89 ; Chest discomfort R07.89 ; BMI 40.0-44.9, adult Z68.41 and Worried well Z71.1 [facility] [id number] [place] [address] 87774- 8438 May, Severe episode of recurrent major depressive disorder, without psychotic features F33.2 ; Anxiety, generalized F41.1 and Borderline personality disorder in adult F60.3 [facility] [id number] [place] [address] 43494- 7839 18 May, 2017 [place] [address] [place] [address] 19706- 9500 14 May, 2017 [facility] [id number] [place] [address] 09676- 4322 May, Type 2 diabetes mellitus with diabetic autonomic (poly) neuropathy E11.43 [place] [address] 65238- 6925 May, Severe episode of recurrent major depressive disorder, without psychotic features F33.2 ; Anxiety, generalized F41.1 and Borderline personality disorder in adult F60.[address] 18076- 6833 May, [facility] [address] 72755- 3733 May, Type 2 diabetes mellitus with diabetic autonomic (poly) neuropathy E11.43 ; Multiple neurological symptoms R29.90 ; Dysuria R30.0 ; Tobacco abuse Z72.0 ; Right hip pain M25.551 ; Anxiety F41.9 ; Gastritis determined by endoscopy K29.70 ; Chronic pain syndrome G89.4 ; Acute non- recurrent maxillary sinusitis J01.00 ; Self mutilating behavior Z72.89 and BMI 40.0-44.9, adult Z68.41 [id number] [place] [address] 24687- 5401 May, Severe episode of recurrent major depressive disorder, without psychotic features F33.2 ; Anxiety, generalized F41.1 and Borderline personality disorder in adult F60.3 [facility] [id number] [place] [address] 79693- 8841 Apr, [facility] [id number] [place] [address] 41744- 5824 Apr, [facility] [address] [place] [id number] [place] [address] 49657 -7361 Apr, [facility] [address] [place] [id number] [place] [address] 62354 -9724 Apr, Aspiration pneumonia of right lower lobe, unspecified aspiration pneumonia type J69.[address] 14526- 0637 Apr, Severe episode of recurrent major depressive disorder, without psychotic features F33.2 ; Anxiety, generalized F41.1 and Borderline personality disorder in adult F60.3 [facility] [address] [place] [address] 04664- 9484 Apr, [facility] [id number] [place] [address] 91044- 7614 Apr, Chronic pain syndrome G89.4 [facility] [id number] [place] [address] 83367- 2040 Apr, Severe episode of recurrent major depressive disorder, without psychotic features F33.2 ; Anxiety, generalized F41.1 and Borderline personality disorder in adult F60.3 [facility] [id number] [place] [address] 66096- 5905 16 Apr, 2017 Severe episode of recurrent major depressive disorder, without psychotic features F33.2 ; Anxiety, generalized F41.1 and Borderline personality disorder in adult F60.3 [place] [address] [place] [address] 62672- 4961 16 Apr, 2017 Closed nondisplaced fracture of third metatarsal bone of left foot with routine healing, subsequent encounter S92.335D ; Closed nondisplaced fracture of fourth metatarsal bone of left foot with routine healing, subsequent encounter S92.345D and Closed nondisplaced fracture of second metatarsal bone of left foot with routine healing, subsequent encounter S92.325D [place] [address] [place] [address] 48819- 6459 16 Apr, 2017 [place] [id number] [place] [address] 44502- 4469 15 Apr, 2017 [place] [id number] [place] [address] 94122- 6974 14 Apr, 2017 [place] [address] [place] [address] 71345- 5698 13 Apr, 2017 Screening breast examination Z12.31 [facility] [id number] [place] [address] 73552- 7678 Apr, [facility] [address] 23107- 1332 Apr, Type 2 diabetes mellitus with diabetic autonomic (poly) neuropathy E11.43 [facility] [id number] [place] [address] 55174- 4179 Apr, Severe episode of recurrent major depressive disorder, without psychotic features F33.2 ; Anxiety, generalized F41.1 and Borderline personality disorder in adult F60.3 [place] [address] 37358- 5706 Apr, Type 2 diabetes mellitus with diabetic autonomic (poly) neuropathy E11.43 ; Chronic pain syndrome G89.4 and Anxiety F41.9 [facility] [address] 05671 -0097 Apr, BMI 45.0-49.9, adult Z68.42 [facility] [address] 14257 -9287 Apr, Avulsion of toenail, initial encounter S91.209A and Acute non-recurrent maxillary sinusitis J01.00 [place] [place] [id number] [place] [address] 80517- 4805 Apr, [facility] [place] [id number] [place] [address] 65239- 3029 Mar, [facility] [place] [id number] [place] [address] 90507- 0705 Mar, Severe episode of recurrent major depressive disorder, without psychotic features F33.2 ; Anxiety, generalized F41.1 and Borderline personality disorder in adult F60.3 [place] [address] 47891- 5798 Mar, [facility] [id number] [place] [address] 97432- 1905 Mar, [place] [address] [place] [address]- 00[address] Mar, [facility] [id number] [place] [address] 97315- 7188 Mar, Seizure disorder G40.909 [facility] [id number] [place] [address] 95247- 8533 Mar, [facility] [id number] [place] [address] 84969- 8824 Mar, [facility] [id number] [place] [address] 47219 -9092 Mar, Left foot pain M79.672 ; Stage 3 chronic kidney disease N18.3 and Closed nondisplaced fracture of second metatarsal bone of left foot, initial encounter S92.325A [facility] [id number] [place] [address] 31091- 1513 Mar, Severe episode of recurrent major depressive disorder, without psychotic features F33.2 and Anxiety, generalized F41.1 [facility] [id number] [place] [address] 77850- 0088 Mar, [facility] [id number] [place] [address] 21854- 3603 Mar, Closed nondisplaced fracture of second metatarsal bone of left foot, initial encounter S92.325A and Closed nondisplaced fracture of third metatarsal bone of left foot, initial encounter S92.335A [facility] [id number] [place] [address] 37834- 7437 Mar, Seizure disorder G40.909 [facility] [id number] [place] [address] 25214- 4476 Mar, [facility] [id number] [place] [address] 87604- 2046 Mar, [facility] [id number] [place] [address] 29384- 3244 Mar, [place] [address], [place] [address]- 9832 Mar, [facility] [place] [id number] [place] [address] 17561- 0587 Mar, High risk sexual behavior Z72.51 [place] [address] [place] [address] 76918- 9950 Mar, Severe episode of recurrent major depressive disorder, without psychotic features F33.2 and Anxiety, generalized F41.1 [place] [id number] [place] [address] 18743- 3143 Mar, Anxiety F41.9 and Type 2 diabetes mellitus with diabetic autonomic (poly)neuropathy E11.43 [place] [place] [id number] [place] [address] 46331- 0568 Mar, Anxiety F41.9 [place] [id number] [place] [address] 27237- 4242 Mar, High risk sexual behavior Z72.51 [facility] [place] [id number] [place] [address] 52566- 9223 Mar, Chronic pain syndrome G89.4 [place] [place] [id number] [place] [address] 17787- 9884 Mar, Type 2 diabetes mellitus with diabetic autonomic (poly) neuropathy E11.43 [facility] [place] [id number] [place] [address] 22131- 2193 Mar, [place] [id number] [place] [address] 63878- 0849 Mar, Closed nondisplaced fracture of second metatarsal bone of left foot, initial encounter S92.325A ; Chronic pain syndrome G89.4 ; Closed nondisplaced fracture of third metatarsal bone of left foot, initial encounter S92.335A ; Acute left ankle pain M25.572 and Type 2 diabetes mellitus with diabetic autonomic (poly)neuropathy E11.43 [place] [address] [place] [address] 07726- 8819 Mar, [facility] [address] [place] [address] 08702- 3425 Mar, [facility] [id number] [place] [address] 54414- 1496 Mar, Severe episode of recurrent major depressive disorder, without psychotic features F33.2 and Anxiety, generalized F41.1 [facility] [id number] [place] [address] 66119- 1113 Feb, [facility] [id number] [place] [address] 67775- 2579 Feb, Renal insufficiency N28.9 [facility] [id number] [place] [address] 79830- 1323 Feb, [facility] [id number] [place] [address] 20569- 4754 Feb, Severe episode of recurrent major depressive disorder, without psychotic features F33.2 and Anxiety, generalized F41.1 [facility] [id number] [place] [address] 24647- 5422 Feb, [facility] [id number] [place] [address] 35080- 8101 22 Feb, 2017 [facility] [id number] [place] [address] 25358- 4393 Feb, Renal insufficiency N28.9 [facility] [id number] [place] [address] 64095- 1556 19 Feb, 2017 [facility] [id number] [place] [address] 23029 -[phone], [address] [facility] [id number] [place] [address] 43702- 8495 [address], [address] [facility] [id number] [place] [address] 46016- 5518 13 Feb, 2017 Severe episode of recurrent major depressive disorder, without psychotic features F33.2 and Anxiety, generalized F41.1 [facility] [id number] [place] [address] 31946- 3212 13 Feb, 2017 Closed nondisplaced fracture of second metatarsal bone of left foot, initial encounter S92.325A ; Chronic pain syndrome G89.4 ; Closed nondisplaced fracture of third metatarsal bone of left foot, initial encounter S92.335A ; Left hip pain M25.552 and Stage [address] kidney disease [address]18[address]3 [facility] [id number] [place] [address] 33975- 2582 [address], [address] [facility] [id number] [place] [address] 07674- 4146 Feb, [facility] [id number] [place] [address] 31852- 0884 Feb, Closed nondisplaced fracture of second metatarsal bone of left foot, initial encounter S92.325A and Closed nondisplaced fracture of third metatarsal bone of left foot, initial encounter S92.335A [facility] [id number] [place] [address] 07987- 4393 Feb, [facility] [id number] [place] [address] 94380 2547 [address], [address] [facility] [id number] [place] [address] 28413- 7315 Feb, [facility] [id number] [place] [address] 99483- 1492 Feb, Chronic pain syndrome G89.4 [facility] [id number] [place] [address] 55568- 0801 05 Feb, 2017 Left foot pain M79.672 ; Closed nondisplaced fracture of second metatarsal bone of left foot, initial encounter S92.325A ; Closed nondisplaced fracture of third metatarsal bone of left foot, initial encounter S92.335A and Oral infection K12.2 [facility] [id number] [place] [address] 06043- 0823 Feb, [facility] [id number] [place] [address] 80284- 1063 Jan, [facility] [id number] [place] [address] 89223- 2035 Jan, Type 2 diabetes mellitus with diabetic autonomic (poly) neuropathy E11.43 and Congestive heart failure, unspecified congestive heart failure chronicity, unspecified congestive heart failure type I50.9 [facility] [id number] [place] [address] 38300- 2923 Jan, Congestive heart failure, unspecified congestive heart failure chronicity, unspecified congestive heart failure type I50.9 and Stage 3 chronic kidney disease N18.3 [facility] [id number] [place] [address] 67914- 7927 Jan, Stage 3 chronic kidney disease N18.3 ; Edema of both legs R60.0 ; Chronic congestive heart failure, unspecified congestive heart failure type I50.9 ; Acute low back pain without sciatica, unspecified back pain laterality M54.5 ; Chronic nausea R11.0 and Primary insomnia F51.01 [facility] [id number] [place] [address] 62166- 6794 Jan, Severe episode of recurrent major depressive disorder, without psychotic features F33.2 and Anxiety, generalized F41.1 [facility] [id number] [place] [address] 81427- 0773 Jan, [facility] [id number] [place] [address] 06096- 7610 Jan, [facility] [id number] [place] [address] 07386- 7502 Jan, [facility] [id number] [place] [address] 83526- 1786 Jan, [facility] [id number] [place] [address] 54816- 5549 Jan, Anxiety F41.9 and Severe episode of recurrent major depressive disorder, without psychotic features F33.2 [place] [id number] [place] [address] 66091- 5574 Jan, Type 2 diabetes mellitus with diabetic autonomic (poly) neuropathy E11.43 [facility] [id number] [place] [address] 55666- 3066 Jan, Severe episode of recurrent major depressive disorder, without psychotic features F33.2 and Type 2 diabetes mellitus with diabetic autonomic (poly)neuropathy E11.43 [facility] [id number] [place] [address] 27509- 8708 Jan, [facility] [id number] [place] [address] 33887- 1191 Jan, [facility] [id number] [place] [address] 33034- 3618 Jan, Stage 3 chronic kidney disease N18.3 ; Seizure disorder G40.909 ; Edema of both legs R60.0 and Blister (nonthermal), right foot, initial encounter S90.821A [place] [id number] [place] [address] 68935- 2795 Jan, Severe episode of recurrent major depressive disorder, without psychotic features F33.2 and Anxiety, generalized F41.1 [facility] [id number] [place] [address] 74483- 5372 Jan, Severe episode of recurrent major depressive disorder, without psychotic features F33.2 and Anxiety, generalized F41.1 [place] [id number] [place] [address] 75938- 5099 Jan, [facility] [id number] [place] [address] 45669- 7500 Jan, Anxiety F41.9 and Primary insomnia F51.01 [place] [id number] [place] [address] 46151- 0827 Jan, Type 2 diabetes mellitus with diabetic autonomic (poly) neuropathy E11.43 ; alf current use of insulin Z79.4 ; Stage 3 chronic kidney disease N18.3 ; Chronic pain syndrome G89.4 ; Swelling of mandible R22.0 and Seizure disorder G40.909 [facility] [id number] [place] [address] 95224- 8672 Jan, [facility] [id number] [place] [address] 57711- 7171 Jan, [facility] [id number] [place] [address] 79353- 5613 Dec, Severe episode of recurrent major depressive disorder, without psychotic features F33.2 and Anxiety, generalized F41.1 [place] [id number] [place] [address] 48366- 4972 Dec, Diarrhea, unspecified type R19.7 ; Gastritis determined by endoscopy K29.70 ; Dysuria R30.0 ; Unspecified abdominal pain R10.9 ; Unspecified fall W19.XXXA and Need for assistance with personal care Z74.1 [facility] [id number] [place] [address] 13294- 0213 Dec, Severe episode of recurrent major depressive disorder, without psychotic features F33.2 and Anxiety, generalized F41.1 [place] [id number] [place] [address] 38923- 8197 Dec, Diarrhea, unspecified type R19.7 ; Dysuria R30.0 ; Unspecified abdominal pain R10.9 ; Gastritis determined by endoscopy K29.70 ; Unspecified fall W19.XXXA and Need for assistance with personal care Z74.1 [place] [address] [place] [address] 74924- 7539 Dec, [facility] [id number] [place] [address] 38293- 6079 Dec, [facility] [id number] [place] [address] 10478- 9471 Dec, Type 2 diabetes mellitus with diabetic autonomic (poly) neuropathy E11.43 [place] [id number] [place] [address] 06209- 7968 17 Dec, 2016 Severe episode of recurrent major depressive disorder, without psychotic features F33.2 and Anxiety, generalized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
--- OUTSIDE RECORDS SUMMARY | 2017-12-04 20:01 | XMS REPORT ---
Author Author MIRZA MARTINO Organization [facility], [place] Address [address] [place] [address] Care Team Providers Care Supervisor Sample Preparation Name Role Phone HAIMLindsey MIRZA Unavailable PROBLEMS Type Condition ICD9-CM Code SNI20-LC Code Onset Dates Condition Status SNOMED Code Problem Postural hypotension I95.1 Active 24696475 Problem Seizure disorder G40.909 Active 109821445 Problem Seasonal allergic rhinitis, unspecified allergic rhinitis trigger J30.2 Active 804261367 Problem Closed nondisplaced fracture of second metatarsal bone of left foot, initial encounter S92.325A Active 22422081 Problem Essential hypertension I10 Active 60144647 Problem Multiple neurological symptoms R29.90 Active 161542557 Problem Port catheter in place Z95.828 Active 799108928 Problem Stage 3 chronic kidney disease N18.3 Active 123153158 Problem Gastritis determined by endoscopy K29.70 Active 3363875 Problem Self-inflicted injury Z72.89 Active 007040531 Problem Borderline personality disorder in adult F60.3 Active 66767715 Problem Chronic congestive heart failure, unspecified congestive heart failure type I50.9 Active 70754195 Problem Chronic pain syndrome G89.4 Active 636843836 Problem Primary insomnia F51.01 Active 8522129 Problem Acquired hypothyroidism E03.9 Active 014710420 Problem Gastroparesis K31.84 Active 174904067 Problem Severe episode of recurrent major depressive disorder, without psychotic features F33.2 Active 74521218 Problem Anxiety, generalized F41.1 Active 94748776 Problem roguer current use of insulin Z79.4 Active 517945496 Problem Type 2 diabetes mellitus with diabetic polyneuropathy E11.42 Active 45013699 Problem Tobacco abuse Z72.0 Active 154634133 Problem Noncompliance with diabetes treatment Z91.19 Active 2161877 ALLERGIES No Information ENCOUNTERS Encounter Location Date Diagnosis [facility], [place] [id number] [address] October, [facility] [place] [id number] [place] [address] 04906- 8116 October, [facility] [place] [id number] [place] [address] 88908- 6735 October, [facility] [place] [id number] [place] [address] 94525- 2559 October, [facility] [place] [id number] [place] [address] 57188- 9719 Sep, Severe episode of recurrent major depressive disorder, without psychotic features F33.2 ; Anxiety, generalized F41.1 and Borderline personality disorder in adult F60.3 [facility] [place] [id number] [place] [address] 26659- 3419 Sep, [facility] [place] [id number] [place] [address] 31247- 8802 Sep, Throat pain R07.0 ; BMI 40.0-44.9, adult Z68.41 and Chronic pain syndrome G89.4 [facility] [place] [id number] [place] [address] 04469- 6989 Sep, [facility] [place] [id number] [place] [address] 37837- 8614 Sep, [facility] [place] [id number] [place] [address] 86220- 4150 Sep, [facility] [place] [id number] [place] [address] 73797- 5343 Sep, Anxiety, generalized F41.1 [facility] [place] [id number] [place] [address] 99113- 6665 Sep, [facility] [place] [id number] [place] [address] 80868- 2204 Sep, Stage 3 chronic kidney disease N18.3 [facility] [place] [id number] [place] [address] 41539- 5975 Sep, Stage 3 chronic kidney disease N18.3 and Chronic pain syndrome G89.4 [facility] [place] [id number] [place] [address] 01795- 0240 Sep, Severe episode of recurrent major depressive disorder, without psychotic features F33.2 ; Anxiety, generalized F41.1 and Borderline personality disorder in adult F60.3 [facility] [place] [address] 70347- 5126 04 Sep, 2017 Chronic pain syndrome G89.4 ; Anxiety, generalized F41.1 and BMI 45.0-49.9, adult Z68.42 [facility] [place] [address] 63559- 0530 Sep, [facility] [place] [address] 06513- 9268 Sep, [facility] [place] [address] 67053- 4251 Sep, Severe episode of recurrent major depressive disorder, without psychotic features F33.2 ; Anxiety, generalized F41.1 and Borderline personality disorder in adult F60.3 [facility] [place] [address] 59702- 8847 Sep, [facility] [id number] [place] [address] 36872 -0544 Aug, Dysuria R30.0 ; Type 2 diabetes mellitus with diabetic polyneuropathy E11.42 ; Oral abscess K12.2 and BMI 40.0-44.9, adult Z68.41 [facility] [place] [id number] [place] [address] 29977- 1033 Aug, [facility] [place] [address] 04637- 8442 Aug, [facility] [place] [id number] [place] [address] 57264- 6493 Aug, [facility] [place] [address] 89178- 4303 27 Aug, 2017 [facility] [place] [address], [place] [address] 4[address] 27 Aug, 2017 Severe episode of recurrent major depressive disorder, without psychotic features F33.2 ; Anxiety, generalized F41.1 and Borderline personality disorder in adult F60.3 [facility] [place] [address], [place] [address]- 5569 22 Aug, 2017 [facility] [place] [id number] [place] [address] 60442- 5232 20 Aug, 2017 [facility] [place] [id number] [place] [address] 60072- 1765 19 Aug, 2017 Severe episode of recurrent major depressive disorder, without psychotic features F33.2 ; Anxiety, generalized F41.1 and Borderline personality disorder in adult F60.3 [facility] [address], [place] [address] 17 Aug, 2017 [facility] [place] [id number] [address] 6597 15 Aug, 2017 [facility] [id number] [place] [address] 98125- 9843 14 Aug, 2017 [facility] [address], [place] [address] 14 Aug, 2017 Dysuria R30.0 ; Dental infection K04.7 ; Acute cystitis with hematuria N30.01 and BMI 45.0-49.9, adult Z68.42 [facility] [place] [address], [place] [address]- 6369 14 Aug, 2017 Severe episode of recurrent major depressive disorder, without psychotic features F33.2 ; Anxiety, generalized F41.1 and Borderline personality disorder in adult F60.3 [facility] [place] [address], [place] [address]- 75[address] 09 Aug, 2017 [place] [address], [place] [address]- 7109 Aug, Closed nondisplaced fracture of second metatarsal bone of left foot, initial encounter S92.325A and Chronic pain syndrome G89.4 [facility] [place] [id number] [place] [address] 99400- 6376 08 Aug, 2017 Type 2 diabetes mellitus with diabetic polyneuropathy E11.42 [facility] [place] [id number] [place] [address] 90841- 8197 Aug, Severe episode of recurrent major depressive disorder, without psychotic features F33.2 ; Anxiety, generalized F41.1 and Borderline personality disorder in adult F60.3 [facility] [place] [id number] [place] [address] 86398- 5681 07 Aug, 2017 [facility] [place] [id number] [place] [address] 32089- 6224 Aug, [facility] [place] [id number] [place] [address] 84592- 9115 Aug, [facility] [place] [id number] [place] [address] 41075- 4546 Aug, [facility] [place] [id number] [place] [address] 97941- 7655 Aug, [facility] [place] [id number] [place] [address] 30344- 9609 Jul, [facility] [place] [address], [place] [address]- 1029 Jul, [facility] [place] [id number] [place] [address] 00769- 0128 Jul, Severe episode of recurrent major depressive disorder, without psychotic features F33.2 ; Anxiety, generalized F41.1 and Borderline personality disorder in adult F60.3 [facility] [place] [address], [place] [address]- 0014 Jul, Type 2 diabetes mellitus with diabetic polyneuropathy E11.42 [facility] [place] [id number] [place] [address] 41249- 6675 Jul, Closed nondisplaced fracture of second metatarsal bone of left foot, initial encounter S92.325A and Closed nondisplaced fracture of third metatarsal bone of left foot, initial encounter S92.335A [facility] [place] [id number] [place] [address] 58644- 3011 Jul, [facility] [id number] [place] [address] 23738- 8597 Jul, Closed nondisplaced fracture of second metatarsal bone of left foot, initial encounter S92.325A ; Acute left ankle pain M25.572 ; Acute midline low back pain without sciatica M54.5 and Seasonal allergic rhinitis, unspecified allergic rhinitis trigger J30.2 [place] [id number] [place] [address] 57015- 0274 Jul, [place] [address] 78295- 2664 Jul, [facility] [id number] [place] [address] 45900- 5045 Jul, [facility] [id number] [place] [address] 60959- 8788 15 Jul, 2017 Frequent falls R29.6 [facility] [id number] [place] [address] 18948- 1654 14 Jul, 2017 Frequent falls R29.6 [facility] [id number] [place] [address] 95333- 3070 Jul, Severe episode of recurrent major depressive disorder, without psychotic features F33.2 ; Anxiety, generalized F41.1 and Borderline personality disorder in adult F60.3 [facility] [id number] [place] [address] 00034- 3477 07 Jul, 2017 Chronic pain syndrome G89.4 [facility] [id number] [place] [address] 51695- 2053 07 Jul, 2017 correction current use of insulin Z79.4 [facility] [place] [id number] [place] [address] 99582- 0388 Jul, [facility] [place] [id number] [place] [address] 88796- 3228 Jul, Type 2 diabetes mellitus with diabetic polyneuropathy E11.42 [facility] [place] [id number] [place] [address] 33993- 3363 Jun, correction current use of insulin Z79.4 and Thrush B37.0 [facility] [id number] [place] [address] 24515- 0324 Jun, Severe episode of recurrent major depressive disorder, without psychotic features F33.2 ; Anxiety, generalized F41.1 and Borderline personality disorder in adult F60.3 [facility] [id number] [place] [address] 52846- 1758 Jun, Severe episode of recurrent major depressive disorder, without psychotic features F33.2 ; Anxiety, generalized F41.1 and Borderline personality disorder in adult F60.3 [facility] [id number] [place] [address] 40586- 3377 Jun, Frequent falls R29.6 ; Bronchitis J40 ; BMI 40.0-44.9, adult Z68.41 and Coccygeal pain, acute M53.3 [facility] [place] [id number] [place] [address] 71112- 8530 Jun, [facility] [id number] [place] [address] 63949 -5690 Jun, [facility] [place] [id number] [place] [address] 10448- 5959 Jun, [facility] [place] [id number] [place] [address] 47143- 2040 Jun, Dental caries, unspecified K02.9 [facility] [place] [id number] [place] [address] 72250- 3323 Jun, Acute non-recurrent maxillary sinusitis J01.00 and BMI 40.0- 44.9, adult Z68.41 [facility] [id number] [place] [address] 39178- 9813 Jun, [facility] [id number] [place] [address] 81345- 8014 Jun, Severe episode of recurrent major depressive disorder, without psychotic features F33.2 ; Anxiety, generalized F41.1 and Borderline personality disorder in adult F60.3 [facility] [place] [id number] [place] [address] 51928- 5669 11 Jun, 2017 Closed nondisplaced fracture of third metatarsal bone of left foot with routine healing, subsequent encounter S92.335D ; Closed nondisplaced fracture of second metatarsal bone of left foot with routine healing, subsequent encounter S92.325D and Closed nondisplaced fracture of fourth metatarsal bone of left foot with routine healing, subsequent encounter S92.345D [facility] [id number] [place] [address] 15912- 5087 Jun, Severe episode of recurrent major depressive disorder, without psychotic features F33.2 ; Anxiety, generalized F41.1 and Borderline personality disorder in adult F60.3 [facility] [facility] [address], [place] [address]- 6839 Jun, [facility] [facility] [address], [place] [address]- 4434 Jun, [facility] [place] [id number] [place] [address] 98677- 3492 Jun, [facility] [id number] [place] [address] 13362- 3048 Jun, [facility] [id number] [place] [address] 98899- 9534 Jun, [facility] [id number] [place] [address] 15517- 1197 Jun, Anxiety F41.9 [facility] [address], [place] [address]- 5780 Jun, [facility] [id number] [place] [address] 95124- 9344 Jun, [facility] [facility] [address], [place] [address]- 0540 Jun, Type 2 diabetes mellitus with diabetic autonomic (poly) neuropathy E11.43 [facility] [id number] [place] [address] 22259- 6192 Jun, Severe episode of recurrent major depressive disorder, without psychotic features F33.2 ; Anxiety, generalized F41.1 and Borderline personality disorder in adult F60.3 [facility] [id number] [place] [address] 61239- 2845 Jun, Type 2 diabetes mellitus with diabetic autonomic (poly) neuropathy E11.43 and Chronic pain syndrome G89.[address] [place] [address] 40043- 9567 20 May, 2017 Recent urinary tract infection Z87.440 ; Deliberate self- cutting Z72.89 ; Chest discomfort R07.89 ; BMI 40.0-44.9, adult Z68.41 and Worried well Z71.[address], [place] [address]- 2168 19 May, 2017 Severe episode of recurrent major depressive disorder, without psychotic features F33.2 ; Anxiety, generalized F41.1 and Borderline personality disorder in adult F60.3 [facility] [address], [place] [address]- 0565 18 May, 2017 [place] [id number] [place] [address] 67327- 3449 14 May, 2017 [place] [address], [place] [address]- 6749 May, Type 2 diabetes mellitus with diabetic autonomic (poly) neuropathy E11.43 [facility] [id number] [place] [address] 76742- 1723 May, Severe episode of recurrent major depressive disorder, without psychotic features F33.2 ; Anxiety, generalized F41.1 and Borderline personality disorder in adult F60.3 [facility] [id number] [place] [address] 72192- 0228 May, [facility] [id number] [place] [address] 14060- 3749 May, Type 2 diabetes mellitus with diabetic autonomic (poly) neuropathy E11.43 ; Multiple neurological symptoms R29.90 ; Dysuria R30.0 ; Tobacco abuse Z72.0 ; Right hip pain M25.551 ; Anxiety F41.9 ; Gastritis determined by endoscopy K29.70 ; Chronic pain syndrome G89.4 ; Acute non- recurrent maxillary sinusitis J01.00 ; Self mutilating behavior Z72.89 and BMI 40.0-44.9, adult Z68.41 [facility] [id number] [place] [address] 86583- 1930 May, Severe episode of recurrent major depressive disorder, without psychotic features F33.2 ; Anxiety, generalized F41.1 and Borderline personality disorder in adult F60.3 [facility] [id number] [place] [address] 15021- 0892 Apr, [facility] [id number] [place] [address] 30139- 7375 Apr, [facility] [id number] [place] [address] 98235 -6332 Apr, [facility] [id number] [place] [address] 15546 -6836 Apr, Aspiration pneumonia of right lower lobe, unspecified aspiration pneumonia type J69.0 [facility] [id number] [place] [address] 61841- 0953 Apr, Severe episode of recurrent major depressive disorder, without psychotic features F33.2 ; Anxiety, generalized F41.1 and Borderline personality disorder in adult F60.3 [facility] [address], [place] [address]- 6210 Apr, [facility] [place] [id number] [place] [address] 79170- 1312 Apr, Chronic pain syndrome G89.4 [facility] [place] [address], [place] [address]- 1371 21 Apr, 2017 Severe episode of recurrent major depressive disorder, without psychotic features F33.2 ; Anxiety, generalized F41.1 and Borderline personality disorder in adult F60.3 [facility] [id number] [place] [address] 29650- 0317 16 Apr, 2017 Severe episode of recurrent major depressive disorder, without psychotic features F33.2 ; Anxiety, generalized F41.1 and Borderline personality disorder in adult F60.3 [facility] [address] [place] [address] 80514- 3607 16 Apr, 2017 Closed nondisplaced fracture of third metatarsal bone of left foot with routine healing, subsequent encounter S92.335D ; Closed nondisplaced fracture of fourth metatarsal bone of left foot with routine healing, subsequent encounter S92.345D and Closed nondisplaced fracture of second metatarsal bone of left foot with routine healing, subsequent encounter S92.325D [facility] [address], [place] [address]- 3256 16 Apr, 2017 [place] [id number] [place] [address] 60328- 5957 15 Apr, 2017 [place] [id number] [place] [address] 83873- 4794 14 Apr, 2017 [place] [id number] [place] [address] 79855- 8318 13 Apr, 2017 Screening breast examination Z12.31 [facility] [id number] [place] [address] 22802- 8880 09 Apr, 2017 [place] [id number] [place] [address] 75308- 4981 Apr, Type 2 diabetes mellitus with diabetic autonomic (poly) neuropathy E11.43 [facility] [place] [id number] [place] [address] 23851- 9042 Apr, Severe episode of recurrent major depressive disorder, without psychotic features F33.2 ; Anxiety, generalized F41.1 and Borderline personality disorder in adult F60.3 [facility] [place] [id number] [place] [address] 04127- 2082 Apr, Type 2 diabetes mellitus with diabetic autonomic (poly) neuropathy E11.43 ; Chronic pain syndrome G89.4 and Anxiety F41.9 [facility] [id number] [place] [address] 44054 -6131 Apr, BMI 45.0-49.9, adult Z68.42 [facility] [id number] [place] [address] 96813 -0767 Apr, Avulsion of toenail, initial encounter S91.209A and Acute non-recurrent maxillary sinusitis J01.00 [facility] [place] [id number] [place] [address] 49678- 1122 Apr, [facility] [id number] [place] [address] 52223- 1195 Mar, [facility] [place] [id number] [place] [address] 40059- 1020 Mar, Severe episode of recurrent major depressive disorder, without psychotic features F33.2 ; Anxiety, generalized F41.1 and Borderline personality disorder in adult F60.3 [facility] [place] [id number] [place] [address] 74452- 1083 Mar, [facility] [place] [id number] [place] [address] 45552- 4654 Mar, [facility] [place] [id number] [place] [address] 00877- 8954 Mar, [facility] [place] [id number] [place] [address] 13187- 7962 Mar, Seizure disorder G40.909 [facility] [place] [address], [place] [address]- 2426 Mar, [facility] [place] [id number] [place] [address] 14288- 5437 Mar, [facility] [id number] [place] [address] 86551 -4487 Mar, Left foot pain M79.672 ; Stage 3 chronic kidney disease N18.3 and Closed nondisplaced fracture of second metatarsal bone of left foot, initial encounter S92.325A [facility] [place] [id number] [place] [address] 40354- 3727 Mar, Severe episode of recurrent major depressive disorder, without psychotic features F33.2 and Anxiety, generalized F41.1 [facility] [place] [id number] [place] [address] 60580- 1853 Mar, [facility] [place] [id number] [place] [address] 53931- 6413 Mar, Closed nondisplaced fracture of second metatarsal bone of left foot, initial encounter S92.325A and Closed nondisplaced fracture of third metatarsal bone of left foot, initial encounter S92.335A [facility], [place] [id number] [place] [address] [phone]- 0783 Mar, Seizure disorder G40.909 [facility], [place] [id number] [place] [address] [phone] Mar, [facility], [place] [id number] [place] [address] [id number]- [phone] Mar, [facility], [place] [id number] [place] [address] [phone]- [phone] Mar, [facility] [facility] [place] [id number] [place] [address] 20363- 5595 Mar, [facility], [place] [id number] [place] [address] 99949- 8741 Mar, High risk sexual behavior Z72.51 [facility], [place] [id number] [place] [address] 26923- 3597 Mar, Severe episode of recurrent major depressive disorder, without psychotic features F33.2 and Anxiety, generalized F41.1 [facility], [place] [id number] [place] [address] 99969- 8108 Mar, Anxiety F41.9 and Type 2 diabetes mellitus with diabetic autonomic (poly)neuropathy E11.43 [facility], [place] [id number] [place] [address] 34926- 1204 Mar, Anxiety F41.9 [facility], [place] [id number] [place] [address] 30940- 0531 Mar, High risk sexual behavior Z72.51 [facility], [place] [id number] [place] [address] 79378- 2581 Mar, Chronic pain syndrome G89.4 [facility], [place] [id number] [place] [address] 89469- 0739 Mar, Type 2 diabetes mellitus with diabetic autonomic (poly) neuropathy E11.43 [facility], [place] [id number] [place] [address] 25608- 9526 Mar, [facility], [place] [id number] [place] [address] 57454- 9727 Mar, Closed nondisplaced fracture of second metatarsal bone of left foot, initial encounter S92.325A ; Chronic pain syndrome G89.4 ; Closed nondisplaced fracture of third metatarsal bone of left foot, initial encounter S92.335A ; Acute left ankle pain M25.572 and Type 2 diabetes mellitus with diabetic autonomic (poly)neuropathy E11.43 [facility], [place] [id number] [address] 8567 Mar, [facility], [place] [address] [address] 8946 Mar, [facility], [place] [id number] [place] [address] 95478- 5450 Mar, Severe episode of recurrent major depressive disorder, without psychotic features F33.2 and Anxiety, generalized F41.1 [facility], [place] [id number] [place] [address] 08098- 5278 Feb, [facility], [place] [id number] [place] [address] 00582- 2306 Feb, Renal insufficiency N28.9 [facility], [place] [id number] [place] [address] 34752- 5145 Feb, [facility], [place] [id number] [place] [address] 92572- 1121 Feb, Severe episode of recurrent major depressive disorder, without psychotic features F33.2 and Anxiety, generalized F41.1 [facility], [place] [id number] [place] [address] 57249- 0221 Feb, [facility], [place] [id number] [place] [address] 84331- 4555 22 Feb, 2017 [facility], [place] [id number] [place] [address] 09495- 1838 20 Feb, 2017 Renal insufficiency N28.9 [facility], [place] [id number] [place] [address] 20316- 6908 19 Feb, 2017 [facility] [id number] [place] [address] 03693 -3216 18 Feb, 2017 [facility], [place] [id number] [place] [address] 88453- 4178 14 Feb, 2017 [facility], [place] [id number] [place] [address] 61053- 0764 13 Feb, 2017 Severe episode of recurrent major depressive disorder, without psychotic features F33.2 and Anxiety, generalized F41.1 [facility], [place] [id number] [address]- 2287 13 Feb, 2017 Closed nondisplaced fracture of second metatarsal bone of left foot, initial encounter S92.325A ; Chronic pain syndrome G89.4 ; Closed nondisplaced fracture of third metatarsal bone of left foot, initial encounter S92.335A ; Left hip pain M25.552 and Stage 3 chronic kidney disease N18.3 [facility], [place] [id number] [place] [address] 76588- 8538 Feb, [facility], [place] [address] [facility] [id number] [place] [address] 87898- 9937 Feb, [facility], [place] [address] [facility] [id number] [place] [address] 48514- 1775 Feb, Closed nondisplaced fracture of second metatarsal bone of left foot, initial encounter S92.325A and Closed nondisplaced fracture of third metatarsal bone of left foot, initial encounter S92.335A [place] [id number] [place] [address] 91595- 9298 Feb, [facility], [place] [id number] [place] [address] 71676- 7564 Feb, Anxiety F41.9 [facility], [place] [id number] [place] [address] 14081- 2516 Feb, [facility], [place] [id number] [place] [address] 15591- 4348 Feb, Chronic pain syndrome G89.4 [facility], [place] [id number] [place] [address] 46051- 254 05 Feb, 2017 Left foot pain M79.672 ; Closed nondisplaced fracture of second metatarsal bone of left foot, initial encounter S92.325A ; Closed nondisplaced fracture of third metatarsal bone of left foot, initial encounter S92.335A and Oral infection K12.2 [facility], [place] [address] [facility] [id number] [place] [address] 17151- 3806 Feb, [facility], [place] [id number] [place] [address] 81450- 7350 Jan, [place] [id number] [place] [address] 51524- 4374 Jan, Type 2 diabetes mellitus with diabetic autonomic (poly) neuropathy E11.43 and Congestive heart failure, unspecified congestive heart failure chronicity, unspecified congestive heart failure type I50.9 [place] [id number] [place] [address] 73985- 9468 Jan, Congestive heart failure, unspecified congestive heart failure chronicity, unspecified congestive heart failure type I50.9 and Stage 3 chronic kidney disease N18.3 [place] [id number] [place] [address] 97599- 2759 Jan, Stage 3 chronic kidney disease N18.3 ; Edema of both legs R60.0 ; Chronic congestive heart failure, unspecified congestive heart failure type I50.9 ; Acute low back pain without sciatica, unspecified back pain laterality M54.5 ; Chronic nausea R11.0 and Primary insomnia F51.01 [place] [id number] [place] [address] 42675- 5686 Jan, Severe episode of recurrent major depressive disorder, without psychotic features F33.2 and Anxiety, generalized F41.1 [place] [id number] [place] [address] 21640- 9213 Jan, [place] [id number] [place] [address] 54867- 8189 Jan, [place] [id number] [place] [address] 18816- 0476 Jan, [place] [id number] [place] [address] 34733- 3497 Jan, [place] [id number] [place] [address] 95412- 0441 Jan, Anxiety F41.9 and Severe episode of recurrent major depressive disorder, without psychotic features F33.2 [place] [id number] [place] [address] 38176- 3120 Jan, Type 2 diabetes mellitus with diabetic autonomic (poly) neuropathy E11.43 [place] [id number] [place] [address] 44832- 0132 Jan, Severe episode of recurrent major depressive disorder, without psychotic features F33.2 and Type 2 diabetes mellitus with diabetic autonomic (poly)neuropathy E11.43 [place] [id number] [place] [address] 87183- 8096 Jan, [place] [id number] [place] [address] 78762- 8327 Jan, [place] [id number] [place] [address] 39739- 1606 Jan, Stage 3 chronic kidney disease N18.3 ; Seizure disorder G40.909 ; Edema of both legs R60.0 and Blister (nonthermal), right foot, initial encounter S90.821A [place] [id number] [place] [address] 07347- 9380 Jan, Severe episode of recurrent major depressive disorder, without

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
--- OUTSIDE RECORDS SUMMARY | 2017-12-04 20:06 | XMS REPORT ---
Author Author MIRZA MARTINO [facility] Address [address] [place] [address] Care Team Providers Care Contact Center Associate Name Role Phone MIRZA MARTINO Unavailable PROBLEMS Type Condition ICD9-CM Code [id number] Code Onset Dates Condition Status SNOMED Code Problem Tobacco abuse Z72.0 Active 213295448 Problem alf current use of insulin Z79.4 Active 970574471 Problem Anxiety, generalized F41.1 Active 92688593 Problem Severe episode of recurrent major depressive disorder, without psychotic features F33.2 Active 75219107 Problem Stage 3 chronic kidney disease N18.3 Active 987165774 Problem Weakness R53.1 Active 79581036 Problem High risk sexual behavior Z72.51 Active 237764964 Problem Vaginal bleeding N93.9 Active 772830018 Problem Port catheter in place Z95.828 Active 541611481 Problem Chronic nausea R11.0 Active 010069731 Problem Right lower quadrant abdominal pain R10.31 Active 558974960 Problem Noncompliance with diabetes treatment Z91.19 Active 5138278 Problem Unspecified fall W19.XXXA Active 3626221 Problem Type 2 diabetes mellitus with diabetic polyneuropathy E11.42 Active 60116409 Problem Diarrhea, unspecified type R19.7 Active 27309672 Problem Swelling of both lower extremities M79.89 Active 66755110091032189 Problem Gastritis determined by endoscopy K29.70 Active 4734011 Problem Blister (nonthermal), right foot, initial encounter S90.821A Active 704306913 Problem Unspecified abdominal pain R10.9 Active 551672929 Problem Borderline personality disorder in adult F60.3 Active 62077363 Problem Closed nondisplaced fracture of second metatarsal bone of left foot, initial encounter S92.325A Active 71809296 Problem Syncope, unspecified syncope type R55 Active 030414439 Problem Neck pain M54.2 Active 35188410 Problem Epigastric pain R10.13 Active 19778068 Problem Thrush B37.0 Active 70222088 Problem Anxiety F41.9 Active 99525988 Problem Chronic congestive heart failure, unspecified congestive heart failure type I50.9 Active 07511281 Problem Essential hypertension I10 Active 69982617 Problem Edema of both legs R60.0 Active 257022982 Problem Acquired hypothyroidism E03.9 Active 165526036 Problem Closed nondisplaced fracture of third metatarsal bone of left foot, initial encounter S92.335A Active 584333542 Problem Congestive heart failure, unspecified congestive heart failure chronicity, unspecified congestive heart failure type I50.9 Active 80504035 Problem Left hip pain M25.552 Active 05822653 Problem Screening breast examination Z12.39 Active 387108043 Problem Acute non-recurrent maxillary sinusitis J01.00 Active 58466235 Problem Recurrent major depressive disorder, remission status unspecified F33.9 Active 61803375 Problem Seasonal allergic rhinitis, unspecified allergic rhinitis trigger J30.2 Active 251199843 Problem Chronic pain syndrome G89.4 Active 363558508 Problem Acute pain of right shoulder M25.511 Active 55381010 Problem Primary insomnia F51.01 Active 2104343 Problem Postural hypotension I95.1 Active 27828607 Problem Gastroparesis K31.84 Active 164362478 Problem Chronic superficial gastritis without bleeding K29.30 Active 838435939 Problem Type 2 diabetes mellitus with diabetic autonomic (poly)neuropathy E11.43 Active 055363775 Problem Self-inflicted injury Z72.89 Active 742472158 Problem Swelling of mandible R22.0 Active 418422364 Problem Seizure disorder G40.909 Active 020403567 ALLERGIES No Information SOCIAL HISTORY Never Assessed [...] vein (port for IV access) Dr. Hernandez [facility] - Surgical History partial hysterectomy Surgical History EGD Hospitalization History transfusion given after delivery Hospitalization History Chest pain, uncontrolled Hyperglycemia--[facility] 12/15/15 Hospitalization History Influenza B Hospitalization History pneumonia Hospitalization History [facility] 07/16/16 Hospitalization History for high sugar 07/12
--- OUTSIDE RECORDS SUMMARY | 2017-12-04 20:06 | XMS REPORT ---
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 Active 587677137 Problem Recurrent major depressive disorder, remission status unspecified F33.9 Active 43317172 Problem Severe episode of recurrent major depressive disorder, without psychotic features F33.2 Active 90638409 Problem Tobacco abuse Z72.0 Active 911492757 Problem Anxiety, generalized F41.1 Active 43831439 Problem Stage 3 chronic kidney disease N18.3 Active 211717683 Problem Weakness R53.1 Active 60534292 Problem High risk sexual behavior Z72.51 Active 129193549 Problem Vaginal bleeding N93.9 Active 000600117 Problem Chronic nausea R11.0 Active 737569227 Problem Right lower quadrant abdominal pain R10.31 Active 165762881 Problem Self-inflicted injury Z72.89 Active 329109503 Problem Noncompliance with diabetes treatment Z91.19 Active 1202279 Problem Unspecified fall W19.XXXA Active 7900378 Problem Type 2 diabetes mellitus with diabetic polyneuropathy E11.42 Active 76790050 Problem Gastritis determined by endoscopy K29.70 Active 1353209 Problem Unspecified abdominal pain R10.9 Active 416860615 Problem Diarrhea, unspecified type R19.7 Active 07221190 Problem Left hip pain M25.552 Active 14825303 Problem Closed nondisplaced fracture of second metatarsal bone of left foot, initial encounter S92.325A Active 01895398 Problem Neck pain M54.2 Active 43626435 Problem Thrush B37.0 Active 91197430 Problem Anxiety F41.9 Active 03762149 Problem Swelling of both lower extremities M79.89 Active 54995474532192175 Problem Essential hypertension I10 Active 46343439 Problem Edema of both legs R60.0 Active 703287925 Problem Acquired hypothyroidism E03.9 Active 875474019 Problem Blister (nonthermal), right foot, initial encounter S90.821A Active 253755612 Problem Congestive heart failure, unspecified congestive heart failure chronicity, unspecified congestive heart failure type I50.9 Active 23128883 Problem Closed nondisplaced fracture of third metatarsal bone of left foot, initial encounter S92.335A Active 306420318 Problem Port catheter in place Z95.828 Active 192778197 Problem Chronic congestive heart failure, unspecified congestive heart failure type I50.9 Active 91369223 Problem Primary insomnia F51.01 Active 8666734 Problem Postural hypotension I95.1 Active 62811129 Problem Screening breast examination Z12.39 Active 447745995 Problem Acute non-recurrent maxillary sinusitis J01.00 Active 04092338 Problem Type 2 diabetes mellitus with diabetic autonomic (poly)neuropathy E11.43 Active 863039328 Problem Syncope, unspecified syncope type R55 Active 136168362 Problem Chronic pain syndrome G89.4 Active 305652955 Problem Acute pain of right shoulder M25.511 Active 59240868 Problem Epigastric pain R10.13 Active 16427545 Problem Seizure disorder G40.909 Active 102424629 Problem Gastroparesis K31.84 Active 861037608 Problem Chronic superficial gastritis without bleeding K29.30 Active 547717494 Problem Seasonal allergic rhinitis, unspecified allergic rhinitis trigger J30.2 Active 355575646 Problem Swelling of mandible R22.0 Active 792138601 ALLERGIES Substance Reaction Event Type Date Status [...] CARE Activity Details Follow Up 4 Weeks Reason:recheck chf VITAL SIGNS Height 62 in 2016-09-15 Weight 259.7 lbs 2016-09-15 Temperature 97.9 degrees Fahrenheit 2016-09-15 Heart Rate 82 bpm 2016-09-15 Respiratory Rate 20 2016-09-15 BMI 47.49 kg/m2 2016-09-15 Blood pressure systolic 132 mmHg 2016-09-15 Blood pressure diastolic 76 mmHg 2016-09-15 MEDICATIONS Medication Instructions Dosage Frequency Start Date End Date Duration Status Zantac 150 MG Orally twice a day 1 tablet 12h 30 day(s) Active Gabapentin 800 MG Orally 4 times a day 1 tablet 6h Active Losartan Potassium-HCTZ 100-25 MG Orally Once a day 1 tablet 24h Active Nystatin 141497 UNIT/ML Mouth/Throat Four times a day 4 ml 6h 12 Mar, 2016 Active Furosemide 20 mg Orally Once a day 1 tablet 24h 30 days Active Levothyroxine Sodium 75 MCG Orally Once a day 1 tablet 24h Active Escitalopram Oxalate 20 mg Orally Once a day 1 tablet 24h 30 Active Luis Fernando Contour Test - In Vitro 3 times a day as directed 8h Jan, Active Seroquel XR 50MG Orally Once a day 2 tablets 24h 28 Active Alprazolam 1 MG Orally Three times a day must last 28 days 1 tablet Active Naproxen 500 mg Orally every 12 hrs 1 tablet as needed 12h 10 Jun, 2016 October, 28 days Active Humulin R U-500 (Concentrated) 500 UNIT/ML Subcutaneous 3 times a day with meals 70 units Active Benadryl Allergy 25 MG Orally Once a day at bedtime 2 tablet as needed Active Insulin Syringe 31G X 5/16 Active Oxygen 3L nasal canal Active Temazepam 30 MG Orally Once a day 1 capsule at bedtime as needed 24h Active Nystatin 203710 UNIT/GM Externally Twice a day apply to abdominal fold twice a day 12h Active Tizanidine HCl 4 MG Orally Three times a day 1 tablet as needed 8h Active Promethazine HCl 25 MG 1 tablet as needed 2 times a day Orally 28 days 28 Active Chantix 1 MG Orally Twice a day 1 tablet 12h Apr, October, 30 day(s) Active Keflex 500 mg Orally 3 times a day 1 capsule 8h Aug, 10 day(s) Active Atenolol 50 mg Orally Once a day 1 tablet 24h Active RESULTS No Results PROCEDURES Procedure Date Ordered Result Body [facility] 15, 2016 VENIPUNCT, ROUTINE* September 15, 2016 IMMUNIZATIONS No Known Immunizations MEDICAL (GENERAL) [...] vein (port for IV access) Dr. Hernandez [facility] 08-29-2013 Surgical History partial hysterectomy Surgical History EGD Hospitalization History transfusion given after delivery Hospitalization History Chest pain, uncontrolled Hyperglycemia--Via [facility] 12/15/15 Hospitalization History Influenza B Hospitalization History pneumonia Hospitalization History [facility] 07/16/16 Hospitalization History for high sugar 07/12
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
[2017-12-04] MEDS ORDERED: PROMETHAZINE INJ 25 MG/ML (PHENERGAN) AMP IVP ONE (20:15)
--- NOTE | 2017-12-04 20:15 | ED Abdominal Pain ---
General Chief Complaint: Glucose Problems Stated Complaint: HIGH BS Nursing Triage Note: patient reports hyperglycemia Sepsis Screen: No Definite Risk Source of Information: Patient, Caregiver Exam Limitations: No Limitations History of Present Illness Date Seen by Provider: Dec 04, 2017 Time Seen by Provider: 19:58 Initial Comments The patient presents to the ER by private conveyance with her caregiver and a chief complaint that she was at her doctor's office today for her abdominal pain and high blood sugars and they sent her to the ER. She lives and [place] but she doctors with the [facility] in [place]. She says her abdominal pain is midepigastric and periumbilical. His been going on for a couple weeks but started getting worse about a week ago so she went and saw her doctor and they ordered a CT scan of the abdomen. The CT scan revealed that she had a lot of constipation so she was given 2 enemas and some laxative she said she had multiple large bowel movements but her pain did not really improve. She has a history of multiple surgeries on her abdomen including multiple C-sections , hysterectomy, appendectomy, history of ruptured uterus, D&C, etc. She is also known to Dr. Sellers for history of heart palpitations and has had heart catheterizations. She did have a large bowel movement today. She's not having any fevers or chills but she is having some nausea. She's been at home and that helps. She is not taking anything additional for her abdominal pain because she only uses but she's told she can use which is one half of a Percocet in the morning another half an afternoon and one whole Percocet in the evening for going to bed. She uses for her chronic back pain. The patient's blood pressure has been low for the past couple months. About the same time she started her new medicine metoprolol which she takes a 25 mg tablet 1-1/2 tablets twice a day. Allergies and Home Medications Allergies Coded Allergies: acetaminophen (Verified Allergy, Mild, 10/10/16) hydrocodone (Verified Allergy, Mild, 10/10/16) Iodinated Contrast- Oral and IV Dye (Verified Allergy, Unknown, 10/10/16) Sulfa (Sulfonamide Antibiotics) (Verified Allergy, Unknown, 10/10/16) codeine (Verified Allergy, Unknown, 10/10/16) iodine (Verified Allergy, Unknown, 10/10/16) metoclopramide (Verified Allergy, Unknown, 10/10/16) ondansetron (Verified Allergy, Unknown, 10/10/16) prochlorperazine (Verified Allergy, Unknown, 10/10/16) Uncoded Allergies: IV Dye (Allergy, Mild, 08/17/15) tape (Adverse Reaction, Mild, blister, 08/17/15) Home Medications Acetaminophen 500 Mg Tablet, 1,000 MG PO TID PRN for PAIN, (Reported) Alprazolam 0.5 Mg Tablet, 0.5 MG PO TID PRN for ANXIETY, (Reported) Amitriptyline HCl 25 Mg Tablet, 25 MG PO HS, (Reported) Diphenhydramine HCl 25 Mg Tablet, 50 MG PO DAILY PRN for ITCHING, (Reported) Escitalopram Oxalate 20 Mg Tablet, 20 MG PO DAILY, (Reported) Furosemide 20 Mg Tablet, 20 MG PO DAILY, (Reported) Gabapentin 800 Mg Tablet, 800 MG PO QID, (Reported) Insulin Regular, Human 500 Unit/1 Ml Insuln.pen, 45 UNITS SC AC, (Reported) Levothyroxine Sodium 75 Mcg Tablet, 75 MCG PO DAILY, (Reported) Liraglutide 0.6 Mg/0.1 Ml Pen.injctr, 0.6 MG SQ DAILY, (Reported) Losartan Potassium 100 Mg Tablet, 100 MG PO DAILY, (Reported) Metoprolol Tartrate 50 Mg Tablet, 50 MG PO BID, (Reported) Nystatin 100,000 Unit/1 Ml Oral.susp, 5 ML MM QID PRN for THRUSH, (Reported) Oxycodone HCl/Acetaminophen 1 Each Tablet, 1 TAB PO BID PRN for PAIN, (Reported) Promethazine HCl 25 Mg Tablet, 25 MG PO BID PRN for NAUSEA/VOMITING-1ST LINE, ( Reported) Quetiapine Fumarate 50 Mg Tab.er.24h, 100 MG PO HS, (Reported) TAKES 2 (50MG) TABLETS Ranitidine HCl 150 Mg Tablet, 150 MG PO BID, (Reported) Temazepam 30 Mg Capsule, 30 MG PO HS, (Reported) Tizanidine HCl 4 Mg Tablet, 4 MG PO TID, (Reported) Topiramate 50 Mg Tablet, 50 MG PO BID, (Reported) Varenicline Tartrate 1 Mg Tablet, 1 MG PO BID, (Reported) Patient Home Medication List Home Medication List Reviewed: Yes Review of Systems Constitutional: No chills, No diaphoresis EENTM: No Blurred Vision, No Double Vision Respiratory: Denies Cough, Denies Shortness of Air Cardiovascular: Chest Pain (3 weeks) Gastrointestinal: See HPI; Denies Abdomen Distended; Abdominal Pain, Constipated, Diarrhea; Denies Difficulty Swallowing; Nausea (chronic); Denies Vomiting Genitourinary: Denies Burning, Denies Discharge Musculoskeletal: No back pain, No joint pain Skin: No pruritus, No rash Psychiatric/Neurological: Denies Headache, Denies Numbness Past Obzfqqp-Bxjzbj-Xsntrb Hx Patient Social History Alcohol Use: Denies Use Recreational Drug Use: No Drug of Choice: denies use Smoking Status: Former Smoker (she states that she never used tobacco.) Type Used: Cigarettes Former Smoker, Quit: Sep 19, 2016 2nd Hand Smoke Exposure: Yes Recent Foreign Travel: No Contact w/Someone Who Travel: No Recent Infectious Disease Expo: No Recent Hopitalizations: No Immunizations Up To Date PED Vaccines UTD: Yes Seasonal Allergies Seasonal Allergies: No Past Medical History Surgeries: Yes (port) Abdominal, Appendectomy, Bladder Surgery, Cardiac, Coronary Stent, Gallbladder, Hysterectomy, Oophorectomy, Tonsillectomy Respiratory: Yes (O2 AT NIGHT-3L) Sleep Apnea, COPD Currently Using CPAP: No Currently Using BIPAP: No Cardiac: Yes (HX STENT) Coronary Artery Disease, High Cholesterol, Hypertension, Irregular Heartbeat Neurological: Yes (Fibromyalgia) Headaches /Migraines, Neuropathy, Seizure Disorder 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 Disorders: No [employer] WORK[employer] History: Hysterectomy Sexually Transmitted Disease: No HIV/AIDS: No Genitourinary: No Gastrointestinal: Yes (chronic abdominal pain from hernia repair) Gastroesophageal Reflux, Hemorrhoids, Chronic Diarrhea Musculoskeletal: Yes Fibromyalgia, Back Injury, Chronic Back Pain Endocrine: Yes (obesity) Diabetes, Insulin dep, Hypothyroidsim HEENT: No Loss of Vision: Bilateral Hearing Impairment: Denies Cancer: No Psychosocial: Yes Anxiety, Depression Integumentary: No Blood Disorders: No Adverse Reaction/Blood Tranf: No (HAS HAD BLOOD WITH NO PROBLEMS) Family Medical History Completed stroke 19 MOTHER Diabetes mellitus 19 FATHER 19 MOTHER MATERNAL GRANDMOTHER MATERNAL GRANDFATHER P GRANDFATHER FH: breast cancer 19 MOTHER Kidney disease MATERNAL GRANDFATHER Myocardial infarction 19 FATHER, Onset:59 Hypertension Physical Exam Vital Signs Vital Signs - First Documented 12/04/17 20:01 Temp 96.0 Pulse 80 Resp 18 B/P (MAP) 86/54 (65) Pulse Ox 99 Capillary Refill : Less Than 3 Seconds General Appearance: WD/WN, no apparent distress HEENT: PERRL/EOMI, normal ENT inspection, pharynx normal Neck: non-tender, full range of motion, normal inspection Respiratory: chest non-tender, lungs clear, normal breath sounds, no respiratory distress, no accessory muscle use Cardiovascular: normal peripheral pulses, regular rate, rhythm Peripheral Pulses: 2+ Radial Pulses (R), 2+ Radial Pulses (L) Gastrointestinal: normal bowel sounds, non tender, soft, no organomegaly, other (abdominal exam is unremarkable when the patient is distracted and talking. No psoas sign or other mesenteric signs.) Extremities: normal range of motion, non-tender, normal capillary refill Back: normal inspection, no CVA tenderness Neurologic/Psychiatric: alert, normal mood/affect, oriented x 3 Skin: normal color, warm/dry Focused Exam Sepsis Stage: Ruled Out Reason for ruling out sepsis: no evidence of source of infection; timing coincides with initiation of BB Lactate Level 12/04/17 21:40: Lactic Acid Level 2.82*H Time of Focused Exam: 23:49 Respiratory: Chest Non Tender, Lungs Clear, Normal Breath Sounds, No Accessory Muscle Use, No Respiratory Distress Cardiovascular: Regular Rate, Rhythm, No Edema, Normal Peripheral Pulses Capillary Refill: Less Than 3 Seconds Peripheral Pulses: 2+ Dorsalis Pedis (R), 2+ Left Dors-Pedis (L), 2+ Radial Pulses (R), 2+ Radial Pulses (L) Skin: normal color, warm/dry Lactic Acid Level Laboratory Tests Test 12/04/17 21:40 Lactic Acid Level 2.82 MMOL/L (0.50-2.00) *H Progress/Results/Core Measures Results/Orders Lab Results Laboratory Tests Test 12/04/17 20:04 12/04/17 21:10 12/04/17 21:40 12/04/17 22:15 Range/Units Glucometer 461 *H 70-110 MG/DL White Blood Count 8.4 4.3-11.0 10^3/uL Red Blood Count 3.73 L 4.35-5.85 10^6/uL Hemoglobin 11.1 L 11.5-16.0 G/DL Hematocrit 34 L 35-52 % Mean Corpuscular Volume 90 80-99 FL Mean Corpuscular Hemoglobin 30 25-34 PG Mean Corpuscular Hemoglobin Concent 33 32-36 G/DL Red Cell Distribution Width 12.9 10.0-14.5 % Platelet Count 226 130-400 10^3/uL Mean Platelet Volume 10.3 7.4-10.4 FL Neutrophils (%) (Auto) 59 42-75 % Lymphocytes (%) (Auto) 31 12-44 % Monocytes (%) (Auto) 6 0-12 % Eosinophils (%) (Auto) 4 0-10 % Basophils (%) (Auto) 1 0-10 % Neutrophils # (Auto) 4.9 1.8-7.8 X 10^3 Lymphocytes # (Auto) 2.6 1.0-4.0 X 10^3 Monocytes # (Auto) 0.5 0.0-1.0 X 10^3 Eosinophils # (Auto) 0.3 0.0-0.3 10^3/uL Basophils # (Auto) 0.1 0.0-0.1 10^3/uL Sodium Level 133 L 135-145 MMOL/L Potassium Level 4.4 3.6-5.0 MMOL/L Chloride Level 101 98-107 MMOL/L Carbon Dioxide Level 18 L 21-32 MMOL/L Anion Gap 14 5-14 MMOL/L Blood Urea Nitrogen 11 7-18 MG/DL Creatinine 1.03 0.60-1.30 MG/DL Estimat Glomerular Filtration Rate 57 BUN/Creatinine Ratio 11 Glucose Level 479 *H 70-105 MG/DL Calcium Level 8.6 8.5-10.1 MG/DL Magnesium Level 1.9 1.8-2.4 MG/DL Total Bilirubin 0.4 0.1-1.0 MG/DL Aspartate Amino Transf (AST/SGOT) 24 5-34 U/L Alanine Aminotransferase (ALT/SGPT) 26 0-55 U/L Alkaline Phosphatase 101 40-136 U/L Troponin I < 0.30 <0.30 NG/ML Total Protein 6.4 6.4-8.2 GM/DL Albumin 3.5 3.2-4.5 GM/DL Lipase 15 8-78 U/L Lactic Acid Level 2.82 *H 0.50-2.00 MMOL/L Prothrombin Time 14.2 12.2-14.7 SEC INR Comment 1.1 0.8-1.4 Activated Partial Thromboplast Time 24 24-35 SEC Test 12/04/17 22:28 12/04/17 22:40 Range/Units Glucometer 303 H 70-110 MG/DL Urine Color YELLOW Urine Clarity CLEAR Urine pH 5 5-9 Urine Specific [place] 1.015 L 1.016-1.022 Urine Protein 1+ H NEGATIVE Urine Glucose (UA) 4+ H NEGATIVE Urine Ketones NEGATIVE NEGATIVE Urine Nitrite NEGATIVE NEGATIVE Urine Bilirubin NEGATIVE NEGATIVE Urine Urobilinogen NORMAL NORMAL MG/DL Urine Leukocyte Esterase NEGATIVE NEGATIVE Urine RBC (Auto) NEGATIVE NEGATIVE Urine RBC NONE /HPF Urine WBC RARE /HPF Urine Squamous Epithelial Cells 10-25 H /HPF Urine Crystals NONE /LPF Urine Bacteria NEGATIVE /HPF Urine Casts PRESENT /LPF Urine Hyaline Casts 5-10 H /LPF Urine Mucus NEGATIVE /LPF Urine Culture Indicated NO Urine Test NEGATIVE NEGATIVE Urine Opiates Screen POSITIVE H NEGATIVE Urine Oxycodone Screen POSITIVE H NEGATIVE Urine Methadone Screen NEGATIVE NEGATIVE Urine Propoxyphene Screen NEGATIVE NEGATIVE Urine Barbiturates Screen NEGATIVE NEGATIVE Ur Tricyclic Antidepressants Screen POSITIVE H NEGATIVE Urine Phencyclidine Screen NEGATIVE NEGATIVE Urine Amphetamines Screen NEGATIVE NEGATIVE Urine Methamphetamines Screen NEGATIVE NEGATIVE Urine Benzodiazepines Screen POSITIVE H NEGATIVE Urine Cocaine Screen NEGATIVE NEGATIVE Urine Cannabinoids Screen NEGATIVE NEGATIVE My Orders Orders - BECKIE YUAN Cbc With Automated Diff (12/04/17 19:45) Comprehensive Metabolic Panel (12/04/17 19:45) Drug Screen Stat (Urine) (12/04/17 19:45) Hcg,Qualitative Urine (12/04/17 19:45) Lipase (12/04/17 19:45) Magnesium (12/04/17 19:45) Ua Culture If Indicated (12/04/17 19:45) Saline Lock/Iv-Start (12/04/17 19:45) Ns Iv 1000 Ml (Sodium Chloride 0.9%) (12/04/17 19:45) Accucheck Stat ONCE (12/04/17 19:45) Promethazine Injection (Phenergan Injec (12/04/17 20:15) Ekg Tracing (12/04/17 20:21) Troponin I (12/04/17 20:21) Ketorolac Injection (Toradol Injection) (12/04/17 21:00) Lactic Acid Analyzer (12/04/17 20:54) Blood Culture (12/04/17 20:54) Sputum Culture (12/04/17 20:54) Protime With Inr (12/04/17 20:54) Partial Thromboplastin Time (12/04/17 20:54) O2 (12/04/17 20:54) Saline Lock/Iv-Start (12/04/17 20:54) Vital Signs Adult Sepsis Patie Q1H (12/04/17 20:54) Remove Rings In Anticipation O (12/04/17 20:54) Saline Lock/Iv-Start (12/04/17 20:54) Saline Lock/Iv-Start (12/04/17 20:57) Ns Iv 1000 Ml (Sodium Chloride 0.9%) (12/04/17 20:57) Insulin (Regular) Human (Humulin R (Per (12/04/17 21:00) Lidocaine 2% Viscous 15 Ml (Xylocaine Vi (12/04/17 21:15) Famotidine Tablet (Pepcid Tablet) (12/04/17 21:05) Antacid Suspension (Mylanta Suspension (12/04/17 21:15) Ceftriaxone Injection (Rocephin Injectio (12/04/17 21:30) Chest 1 View, Ap/Pa Only (12/04/17 20:21) Ct Abdomen/Pelvis Wo (12/04/17 22:00) Accucheck Stat ONCE (12/04/17 22:02) Medications Given in ED Current Medications Medications Dose Ordered Sig/Ramiro Route Start Time Stop Time Status Last Admin Dose Admin Al Hydrox/Mg Hydrox/Simethicone 30 ml ONCE ONCE PO 12/04/17 21:15 12/04/17 21:16 DC 12/04/17 21:18 30 ML Ceftriaxone Sodium 1000 mg/ Sodium Chloride 50 ml @ 100 mls/hr ONCE ONCE IV 12/04/17 21:30 12/04/17 21:59 DC 12/04/17 23:02 100 MLS/HR Insulin Human Regular 10 unit ONCE ONCE IV 12/04/17 21:00 12/04/17 21:01 DC 12/04/17 21:17 10 UNIT Ketorolac Tromethamine 15 mg ONCE ONCE IVP 12/04/17 21:00 12/04/17 21:01 DC 12/04/17 21:17 15 MG Lidocaine HCl 15 ml ONCE ONCE PO 12/04/17 21:15 12/04/17 21:16 DC 12/04/17 21:18 15 ML Promethazine HCl 25 mg ONCE ONCE IVP 12/04/17 20:15 12/04/17 20:16 DC 12/04/17 20:30 25 MG Vital Signs/I&O 12/04/17 20:01 Temp 96.0 Pulse 80 Resp 18 B/P (MAP) 86/54 (65) Pulse Ox 99 Blood Pressure Mean: 65 FSBG Bedside Testing Finger Stick Blood Glucose: 461 Blood Glucose Action Taken: rn and doc notified Progress Progress Note #1: Time: 20:20 Progress Note She was sent here by her doctor for high blood sugar and abdominal pain. We'll obtain urine looking for ketones. She has no history of DKA. She does have a history of extensive intra-abdominal surgeries however her bowels seem to be moving since her enemas. Not sure why she still having pain but she does not seem to have a very tender or acute abdominal exam. We'll obtain some more labs looking for anything out of the ordinary to include urinalysis as well as get an EKG since she is complaining of chest pain for the past couple weeks. Historically she has been admitted for nonketotic hyperglycemia with abdominal pain. Echocardiogram from March [address] Sellers: Normal left ventricular size and wall thickness with an EF of 60-65%. Estimated pulmonary artery pressure 30 mmHg. Cardiac catheterization by Dr. Sellers 2015 demonstrates mild coronary artery disease nonobstructive. Normal left ventricular pressure and normal aortic arch with great neck vessels. Progress Note #2: Time: 21:04 Progress Note She has had consistently low blood pressure in the 80-100 range systolic so we are going to start a second IV. She is a hard stick and was difficult to get started initially. We did access her port but had a hard time drawing blood from it. We have increased her IV volume to 30 mL/kg or 3 L normal saline as well. Her nausea was resolved with some Phenergan but her pain persists or any give her some ketorolac, Pepcid and GI cocktail. Her chest pain is old with a normal EKG we'll see what the troponin shows up at negative and is unlikely to be cardiac. She has historical imaging demonstrating a normal sized abdominal aorta. Patient's blood pressures responding to fluids but it seems that her recent starting of beta blockers coincides with an her blood pressure started dropping. Possible she is on a little too much dosage. We will obtain a noncontrast enhanced CT scan of her abdomen just the same to make sure nothing is going on that might be precipitating hypotension. We have also obtained lactate and cultures. Initially thought it might of been a urinary tract infection so it given her Rocephin 1 g IV. Progress Note #3: Time: 22:41 Progress Note Blood sugars improved at 304. Her pain is gone and her nausea is gone. Her blood pressures improving with IV fluids with a systolic now. 107/66. Heart rate is in the 70s. She is not any acute distress at this time. Lactate is elevated and we're still looking for a source. She's not been able to produce any urine so we are going to obtain a straight catheter urine specimen. Progress Note #4: Time: 23:37 Progress Note No evidence of infection so her lactate is probably elevated due to her low blood pressure, dehydration and she has responded to IV fluids. It's before arrival bleed temporally associated with her beta blockers and is iatrogenic hypotension. Her blood sugar has improved with the insulin and will put her on sliding scale while she is in here. Initial ECG Impression Date: Dec 04, 2017 Initial ECG Impression Time: 20:28 Initial ECG Rate: 68 Initial ECG Rhythm: Normal Sinus Initial ECG Intervals: Normal Initial ECG Impression: Normal, Nonspecific Changes Comment Right bundle-branch block with sinus rhythm and no ST elevation or depression. Diagnostic Imaging Diagonstic Imaging: Xray Plain Films/CT/US/NM/MRI: chest Comments Port-A-Cath in good position in the superior vena cava just above the right atrium. No acute cardiopulmonary process noted. NAME: KARMEN LEÓN [facility] REC#: [id number] PT STATUS: REG ER : 1970 PHYSICIAN: BECKIE YUAN MD ADMIT DATE: 12/04/17/ER Draft Date of Exam:12/04/17 CHEST 1 VIEW, AP/PA ONLY INDICATION: Hyperglycemia, shortness of breath.. TECHNIQUE: Single view chest at 9:51 PM. CORRELATION STUDY: 07/19/2017 FINDINGS: Left subclavian Infusaport catheter tip projects over the SVC. Heart size is enlarged, a change from prior study. Vasculature within normal limits. Lung devries overall are clear. Asymmetrical elevation of the right diaphragm present. IMPRESSION: 1. Cardiac enlargement, a change from the prior study, but without evidence for overt failure. Dictated on workstation # [id number] Dict: 12/04/172219 Trans: 12/04/172221 [facility] [id number] Interpreted by: NANCY RESENDIZ DO Electronically signed by: Reviewed: Reviewed by Me Diagonstic Imaging: CT (without contrast) Plain Films/CT/US/NM/MRI: abdomen, pelvis Comments CT abdomen pelvis without contrast. No free air or free fluid. No evidence of bowel obstruction, ileus or enteritis. Urinary bladder unremarkable. Gallbladder and appendix are absent. Mild amount of stool in the colon. No acute soft tissue or osseous abnormalities seen. Visualized lung sections unremarkable. Stat read impression: Question of some fatty infiltration of the liver. Reviewed: Reviewed Night [facility] Study (stat rad), Reviewed by Me Departure Communication (Admissions) Time/Spoke to Admitting Phy: 23:39 Dr Torres will see the pt in the AM Impression Primary Impression: Hypoglycemia associated with diabetes Additional Impressions: Iatrogenic hypotension Adverse effect of beta-candice Qualified Codes: T44.7X5A - Adverse effect of beta-adrenoreceptor antagonists , initial encounter Dehydration Abdominal pain Qualified Codes: R10.84 - Generalized abdominal pain Nausea Disposition: ADMITTED INPATIENT Condition: Improved Admissions Decision to Admit Reason: Admit from ER (General) Decision to Admit/Date: Dec 04, 2017 Time/Decision to Admit Time: 23:46 Departure-Patient Inst. Referrals: THERESE VIEIRA DO (PCP/Family) Primary Care Physician Copy Copies To 1: THERESE VIEIRA TITUS J Dec 04, 2017 20:15
--- OUTSIDE RECORDS SUMMARY | 2017-12-04 20:15 | XMS REPORT ---
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 Name Role Phone HAIMLindsey MIRZA Unavailable PROBLEMS Type Condition ICD9-CM Code JUG48-PF Code Onset Dates Condition Status SNOMED Code Problem Postural hypotension I95.1 Active 79960142 Problem Seizure disorder G40.909 Active 093386971 Problem Seasonal allergic rhinitis, unspecified allergic rhinitis trigger J30.2 Active 127133583 Problem Closed nondisplaced fracture of second metatarsal bone of left foot, initial encounter S92.325A Active 31448510 Problem Essential hypertension I10 Active 41397943 Problem Multiple neurological symptoms R29.90 Active 477300790 Problem Port catheter in place Z95.828 Active 632334028 Problem Stage 3 chronic kidney disease N18.3 Active 115828077 Problem Gastritis determined by endoscopy K29.70 Active 4079717 Problem Self-inflicted injury Z72.89 Active 635498342 Problem Borderline personality disorder in adult F60.3 Active 39998588 Problem Chronic congestive heart failure, unspecified congestive heart failure type I50.9 Active 95679872 Problem Chronic pain syndrome G89.4 Active 270246418 Problem Primary insomnia F51.01 Active 6913480 Problem Acquired hypothyroidism E03.9 Active 343060703 Problem Gastroparesis K31.84 Active 937957668 Problem Severe episode of recurrent major depressive disorder, without psychotic features F33.2 Active 15804655 Problem Anxiety, generalized F41.1 Active 74862752 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 Active 048804307 Problem Type 2 diabetes mellitus with diabetic polyneuropathy E11.42 Active 04730363 Problem Tobacco abuse Z72.0 Active 546661745 Problem Noncompliance with diabetes treatment Z91.19 Active 6929128 ALLERGIES No Information ENCOUNTERS Encounter Location Date Diagnosis [facility] [address] [address] October, [facility] [address], [place] [address] October, [facility] [id number] [place] [address] 079029- 3436 October, [facility] [address] [id number] Sep, [facility] [id number] [place] [address] 22624- 2173 Sep, [facility] [id number] [place] [address] 91475- 3789 Sep, [facility] [id number] [place] [address] 12425- 5782 Sep, Throat pain R07.0 and BMI 40.0-44.9, adult Z68.41 [facility] [id number] [place] [address] 71647- 5335 Sep, [facility] [id number] [place] [address] 54066- 8207 Sep, [facility] [id number] [place] [address] 03262- 9455 Sep, [facility] [id number] [place] [address] 74850- 2375 Sep, Anxiety, generalized F41.1 [facility] [id number] [place] [address] 53431- 7084 Sep, [facility] [id number] [place] [address] 79882- 3456 Sep, Stage 3 chronic kidney disease N18.3 [facility] [id number] [place] [address] 14566- 5889 Sep, Stage 3 chronic kidney disease N18.3 and Chronic pain syndrome G89.4 [facility] [id number] [place] [address] 85716- 5943 Sep, Severe episode of recurrent major depressive disorder, without psychotic features F33.2 ; Anxiety, generalized F41.1 and Borderline personality disorder in adult F60.3 [facility] [id number] [place] [address] 36871- 8292 Sep, Chronic pain syndrome G89.4 ; Anxiety, generalized F41.1 and BMI 45.0-49.9, adult Z68.42 [facility] [id number] [place] [address] 00061- 7754 Sep, [facility] [id number] [place] [address] 51606- 9549 Sep, [facility] [id number] [place] [address] 72824- 7460 Sep, Severe episode of recurrent major depressive disorder, without psychotic features F33.2 ; Anxiety, generalized F41.1 and Borderline personality disorder in adult F60.3 [facility] [id number] [place] [address] 48968- 4838 Sep, [facility] [id number] [place] [address] 78892 -5818 Aug, Dysuria R30.0 ; Type 2 diabetes mellitus with diabetic polyneuropathy E11.42 ; Oral abscess K12.2 and BMI 40.0-44.9, adult Z68.41 [facility] [id number] [place] [address] 39110- 8000 Aug, [facility] [id number] [place] [address] 26469- 4742 Aug, [facility] [id number] [place] [address] 79851- 5293 Aug, [facility] [id number] [place] [address] 96149- 3313 Aug, [facility] [id number] [place] [address] 53615- 6241 Aug, Severe episode of recurrent major depressive disorder, without psychotic features F33.2 ; Anxiety, generalized F41.1 and Borderline personality disorder in adult F60.3 [facility] [id number] [place] [address] 66677- 8130 22 Aug, 2017 [facility] [id number] [place] [address] 00149- 2065 20 Aug, 2017 [facility] [id number] [place] [address] 87787- 5767 19 Aug, 2017 Severe episode of recurrent major depressive disorder, without psychotic features F33.2 ; Anxiety, generalized F41.1 and Borderline personality disorder in adult F60.3 [facility] [id number] [place] [address] 17182 -2916 17 Aug, 2017 [facility] [id number] [place] [address] 99258- 2843 15 Aug, 2017 [facility] [id number] [place] [address] 74051- 5076 14 Aug, 2017 [facility] [id number] [place] [address] 37106 -2608 14 Aug, 2017 Dysuria R30.0 ; Dental infection K04.7 ; Acute cystitis with hematuria N30.01 and BMI 45.0-49.9, adult Z68.42 [facility] [id number] [place] [address] 04890- 5719 14 Aug, 2017 Severe episode of recurrent major depressive disorder, without psychotic features F33.2 ; Anxiety, generalized F41.1 and Borderline personality disorder in adult F60.3 [facility] [id number] [place] [address] 06109- 0085 09 Aug, 2017 [facility] [id number] [place] [address] 90921- 4958 08 Aug, 2017 Closed nondisplaced fracture of second metatarsal bone of left foot, initial encounter S92.325A and Chronic pain syndrome G89.4 [facility] [id number] [address] 08 Aug, 2017 Type 2 diabetes mellitus with diabetic polyneuropathy E11.42 [facility] [address], [place] [address] Aug, Severe episode of recurrent major depressive disorder, without psychotic features F33.2 ; Anxiety, generalized F41.1 and Borderline personality disorder in adult F60.3 [facility] [address], [place] [address]- 6966 07 Aug, 2017 [facility] [address], [place] [address]- 5502 Aug, [facility] [address], [place] [address]- 9581 Aug, [facility] [address], [place] [address]- 4922 Aug, [facility] [address], [place] [address]- 0569 Aug, [facility] [address] [address]- 3607 Jul, [facility] [address], [place] [address]- 6532 Jul, [facility] [address], [place] [address] 4745 Jul, Severe episode of recurrent major depressive disorder, without psychotic features F33.2 ; Anxiety, generalized F41.1 and Borderline personality disorder in adult F60.3 [facility] [id number] [address]- 4696 Jul, Type 2 diabetes mellitus with diabetic polyneuropathy E11.42 [facility] [id number], [place] [address]- 6690 Jul, Closed nondisplaced fracture of second metatarsal bone of left foot, initial encounter S92.325A and Closed nondisplaced fracture of third metatarsal bone of left foot, initial encounter S92.335A [facility] [id number] [place] [address] 16137- 8262 Jul, [facility] [id number] [place] [address] 32374- 0766 20 Jul, 2017 Closed nondisplaced fracture of second metatarsal bone of left foot, initial encounter S92.325A ; Acute left ankle pain M25.572 ; Acute midline low back pain without sciatica M54.5 and Seasonal allergic rhinitis, unspecified allergic rhinitis trigger J30.2 [facility] [id number] [place] [address] 87803- 9046 Jul, [facility] [id number] [place] [address] 72564- 8821 19 Jul, 2017 [facility] [id number] [place] [address] 07955- 3612 15 Jul, 2017 [facility] [id number] [place] [address] 29668- 3229 15 Jul, 2017 Frequent falls R29.6 [facility] [id number] [place] [address] 86854- 6474 14 Jul, 2017 Frequent falls R29.6 [facility] [id number] [place] [address] 81114- 7194 07 Jul, 2017 Severe episode of recurrent major depressive disorder, without psychotic features F33.2 ; Anxiety, generalized F41.1 and Borderline personality disorder in adult F60.3 [facility] [id number] [place] [address] 20375- 2640 07 Jul, 2017 Chronic pain syndrome G89.4 [facility] [id number] [place] [address] 33108- 9665 07 Jul, 2017 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 [facility] [id number] [place] [address] 87300- 3669 05 Jul, 2017 [facility] [id number] [place] [address] 62140- 1657 Jul, Type 2 diabetes mellitus with diabetic polyneuropathy E11.42 [facility] [address] 66978- 5102 Jun, 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 and Thrush B37.0 [facility] [address] 02544- 1593 Jun, Severe episode of recurrent major depressive disorder, without psychotic features F33.2 ; Anxiety, generalized F41.1 and Borderline personality disorder in adult F60.3 [facility] [address] 43972- 0385 Jun, Severe episode of recurrent major depressive disorder, without psychotic features F33.2 ; Anxiety, generalized F41.1 and Borderline personality disorder in adult F60.3 [facility] [address] 09915- 1092 Jun, Frequent falls R29.6 ; Bronchitis J40 ; BMI 40.0-44.9, adult Z68.41 and Coccygeal pain, acute M53.3 [facility] [address] 34493- 3511 Jun, [facility] [id number] [place] [address] 15141 -2312 Jun, [facility] [address] 83381- 4706 Jun, [facility] [id number] [place] [address] 19302- 7031 Jun, Dental caries, unspecified K02.9 [facility] [id number] [place] [address] 01750- 5304 Jun, Acute non-recurrent maxillary sinusitis J01.00 and BMI 40.0- 44.9, adult Z68.41 [facility] [address] [place] [address]- 2143 Jun, [facility] [id number] [address] 2546 Jun, Severe episode of recurrent major depressive disorder, without psychotic features F33.2 ; Anxiety, generalized F41.1 and Borderline personality disorder in adult F60.3 [facility] [id number], [place] [address]- 2546 11 Jun, 2017 Closed nondisplaced fracture of third metatarsal bone of left foot with routine healing, subsequent encounter S92.335D ; Closed nondisplaced fracture of second metatarsal bone of left foot with routine healing, subsequent encounter S92.325D and Closed nondisplaced fracture of fourth metatarsal bone of left foot with routine healing, subsequent encounter S92.345D [facility] [address], [place] [address]- 7442 Jun, Severe episode of recurrent major depressive disorder, without psychotic features F33.2 ; Anxiety, generalized F41.1 and Borderline personality disorder in adult F60.3 [facility] [address], [place] [address]- 6186 Jun, [facility] [id number] [place] [address] 37512- 0269 Jun, [facility] [address], [place] [address]- 7961 Jun, [facility] [id number] [place] [address] 64289 254 Jun, [facility] [address], [place] [address]- 1956 Jun, [facility] [id number] [place] [address] 79109- 8346 Jun, Anxiety F41.9 [facility] [id number] [place] [address] 61842- 1154 Jun, [facility] [id number] [place] [address] 28743- 8126 Jun, [facility] [id number] [place] [address] 82640- 6094 Jun, Type 2 diabetes mellitus with diabetic autonomic (poly) neuropathy E11.43 [facility] [id number] [place] [address] 70179- 6591 Jun, Severe episode of recurrent major depressive disorder, without psychotic features F33.2 ; Anxiety, generalized F41.1 and Borderline personality disorder in adult F60.3 [facility] [id number] [place] [address] 50868- 6263 Jun, Type 2 diabetes mellitus with diabetic autonomic (poly) neuropathy E11.43 and Chronic pain syndrome G89.4 [facility] [id number] [place] [address] 04877- 9090 20 May, 2017 Recent urinary tract infection Z87.440 ; Deliberate self- cutting Z72.89 ; Chest discomfort R07.89 ; BMI 40.0-44.9, adult Z68.41 and Worried well Z71.1 [facility] [id number] [place] [address] 26508- 7926 19 May, 2017 Severe episode of recurrent major depressive disorder, without psychotic features F33.2 ; Anxiety, generalized F41.1 and Borderline personality disorder in adult F60.3 [facility] [id number] [place] [address] 36334- 6938 18 May, 2017 [facility] [id number] [place] [address] 38419- 9174 May, [facility] [id number] [place] [address] 62553- 8300 May, Type 2 diabetes mellitus with diabetic autonomic (poly) neuropathy E11.43 [facility] [id number] [place] [address] 15934- 4765 May, Severe episode of recurrent major depressive disorder, without psychotic features F33.2 ; Anxiety, generalized F41.1 and Borderline personality disorder in adult F60.3 [facility] [id number] [place] [address] 71983- 2524 May, [facility] [address] 97327- 9711 May, Type 2 diabetes mellitus with diabetic autonomic (poly) neuropathy E11.43 ; Multiple neurological symptoms R29.90 ; Dysuria R30.0 ; Tobacco abuse Z72.0 ; Right hip pain M25.551 ; Anxiety F41.9 ; Gastritis determined by endoscopy K29.70 ; Chronic pain syndrome G89.4 ; Acute non- recurrent maxillary sinusitis J01.00 ; Self mutilating behavior Z72.89 and BMI 40.0-44.9, adult Z68.41 [facility] [id number] [place] [address] 01335- 7003 May, Severe episode of recurrent major depressive disorder, without psychotic features F33.2 ; Anxiety, generalized F41.1 and Borderline personality disorder in adult F60.3 [facility] [id number] [place] [address] 65576- 0781 Apr, [facility] [id number] [place] [address] 43418- 5210 Apr, [facility] [id number] [place] [address] 87897 -7604 Apr, [facility] [id number] [place] [address] 99611 -7587 Apr, Aspiration pneumonia of right lower lobe, unspecified aspiration pneumonia type J69.0 [facility] [id number] [place] [address] 09368- 8553 Apr, Severe episode of recurrent major depressive disorder, without psychotic features F33.2 ; Anxiety, generalized F41.1 and Borderline personality disorder in adult F60.3 [facility] [id number] [place] [address] 49136- 3658 Apr, [facility] [address] 86599- 4347 Apr, Chronic pain syndrome G89.4 [facility] [id number] [place] [address] 52815- 2401 Apr, Severe episode of recurrent major depressive disorder, without psychotic features F33.2 ; Anxiety, generalized F41.1 and Borderline personality disorder in adult F60.3 [facility] [id number] [place] [address] 23981- 2469 16 Apr, 2017 Severe episode of recurrent major depressive disorder, without psychotic features F33.2 ; Anxiety, generalized F41.1 and Borderline personality disorder in adult F60.3 [facility] [id number] [place] [address] 97556- 5317 16 Apr, 2017 Closed nondisplaced fracture of third metatarsal bone of left foot with routine healing, subsequent encounter S92.335D ; Closed nondisplaced fracture of fourth metatarsal bone of left foot with routine healing, subsequent encounter S92.345D and Closed nondisplaced fracture of second metatarsal bone of left foot with routine healing, subsequent encounter S92.325D [facility] [id number] [place] [address] 24975- 7290 Apr, [facility] [address] 49982- 1886 Apr, [facility] [id number] [place] [address] 48547- 2895 14 Apr, 2017 [place] [id number] [place] [address] 01988- 9054 Apr, Screening breast examination Z12.31 [facility] [id number] [place] [address] 46549- 0459 Apr, [facility] [address] 30329- 4672 Apr, Type 2 diabetes mellitus with diabetic autonomic (poly) neuropathy E11.43 [facility] [id number] [place] [address] 15000- 7589 Apr, Severe episode of recurrent major depressive disorder, without psychotic features F33.2 ; Anxiety, generalized F41.1 and Borderline personality disorder in adult F60.3 [facility] [address] 26138- 1462 Apr, Type 2 diabetes mellitus with diabetic autonomic (poly) neuropathy E11.43 ; Chronic pain syndrome G89.4 and Anxiety F41.9 [facility] [address] 46942 -4397 Apr, BMI 45.0-49.9, adult Z68.42 [facility] [address] 51585 -2268 Apr, Avulsion of toenail, initial encounter S91.209A and Acute non-recurrent maxillary sinusitis J01.00 [facility] [address] 80918- 7486 Apr, [facility] [address] 00842- 5240 Mar, [facility] [id number] [place] [address] 32730- 8192 Mar, Severe episode of recurrent major depressive disorder, without psychotic features F33.2 ; Anxiety, generalized F41.1 and Borderline personality disorder in adult F60.3 [facility] [id number] [place] [address] 37456- 4105 Mar, [facility] [address] 30296- 1690 Mar, [facility] [id number] [place] [address] 84132- 7474 Mar, [facility] [address] 58812- 9509 Mar, Seizure disorder G40.909 [facility] [id number] [place] [address] 80331- 5520 Mar, [facility] [address] [place] [address]- 3364 Mar, [facility] [id number] [place] [address] 00163 -4099 Mar, Left foot pain M79.672 ; Stage 3 chronic kidney disease N18.3 and Closed nondisplaced fracture of second metatarsal bone of left foot, initial encounter S92.325A [facility] [id number] [place] [address] 82646- 0363 Mar, Severe episode of recurrent major depressive disorder, without psychotic features F33.2 and Anxiety, generalized F41.1 [facility] [id number] [place] [address] 63530- 7572 Mar, [facility] [id number] [place] [address] 24651- 6814 Mar, Closed nondisplaced fracture of second metatarsal bone of left foot, initial encounter S92.325A and Closed nondisplaced fracture of third metatarsal bone of left foot, initial encounter S92.335A [facility] [id number] [place] [address] 74543- 4960 Mar, Seizure disorder G40.909 [facility] [id number] [place] [address] 64103- 8444 Mar, [facility] [id number] [place] [address] 37370- 2401 Mar, [facility] [id number] [place] [address] 19157- 0350 Mar, [facility] [id number] [place] [address] 62968- 1638 Mar, [facility] [id number] [place] [address] 88109- 6415 Mar, High risk sexual behavior Z72.51 [facility] [id number] [place] [address] 94903- 0354 Mar, Severe episode of recurrent major depressive disorder, without psychotic features F33.2 and Anxiety, generalized F41.1 [facility] [id number] [place] [address] 51343- 6543 Mar, Anxiety F41.9 and Type 2 diabetes mellitus with diabetic autonomic (poly)neuropathy E11.43 [facility] [id number] [place] [address] 26374- 8661 Mar, Anxiety F41.9 [facility] [id number] [place] [address] 13923- 5252 Mar, High risk sexual behavior Z72.51 [facility] [address] 89143- 0741 Mar, Chronic pain syndrome G89.4 [facility] [id number] [place] [address] 08149- 0588 Mar, Type 2 diabetes mellitus with diabetic autonomic (poly) neuropathy E11.43 [facility] [place] [id number] [place] [address] 75018- 1846 Mar, [place] [id number] [place] [address] 16245- 6491 Mar, Closed nondisplaced fracture of second metatarsal bone of left foot, initial encounter S92.325A ; Chronic pain syndrome G89.4 ; Closed nondisplaced fracture of third metatarsal bone of left foot, initial encounter S92.335A ; Acute left ankle pain M25.572 and Type 2 diabetes mellitus with diabetic autonomic (poly)neuropathy E11.43 [place] [id number] [place] [address] 43287- 1333 Mar, [place] [id number] [place] [address] 28277- 3139 Mar, [place] [id number] [place] [address] 95073- 7832 Mar, Severe episode of recurrent major depressive disorder, without psychotic features F33.2 and Anxiety, generalized F41.1 [facility] [id number] [place] [address] 70347- 5943 27 Feb, 2017 [facility] [id number] [place] [address] 03271- 4869 26 Feb, 2016 Renal insufficiency N28.9 [facility] [id number] [place] [address] 37153- 3641 26 Feb, 2017 [facility] [id number] [place] [address] 01359- 1532 26 Feb, 2017 Severe episode of recurrent major depressive disorder, without psychotic features F33.2 and Anxiety, generalized F41.1 [facility] [id number] [place] [address] 74610- 5450 25 Feb, 2017 [facility] [id number] [place] [address] 79309- 4384 22 Feb, 2017 [facility] [id number] [place] [address] 71722- 7340 20 Feb, 2017 Renal insufficiency N28.9 [facility] [id number] [place] [address] 66729- 2201 19 Feb, 2017 [facility] [id number] [place] [address] 81968 -1424 18 Feb, 2017 [facility] [id number] [place] [address] 98718- 0098 14 Feb, 2017 [facility] [id number] [place] [address] 51767- 8287 13 Feb, 2017 Severe episode of recurrent major depressive disorder, without psychotic features F33.2 and Anxiety, generalized F41.1 [facility] [id number] [place] [address] 12080- 6444 13 Feb, 2017 Closed nondisplaced fracture of second metatarsal bone of left foot, initial encounter S92.325A ; Chronic pain syndrome G89.4 ; Closed nondisplaced fracture of third metatarsal bone of left foot, initial encounter S92.335A ; Left hip pain M25.552 and Stage 3 chronic kidney disease N18.3 [facility] [id number] [place] [address] 68572- 5368 Feb, [facility] [id number] [place] [address] 91886- 5768 Feb, [facility] [id number] [place] [address] 10697- 2777 Feb, Closed nondisplaced fracture of second metatarsal bone of left foot, initial encounter S92.325A and Closed nondisplaced fracture of third metatarsal bone of left foot, initial encounter S92.335A [facility] [id number] [place] [address] 56782- 4280 Feb, [facility] [id number] [place] [address] 60813- 8615 Feb, Anxiety F41.9 [facility] [id number] [place] [address] 97310- 1652 Feb, [facility] [id number] [place] [address] 54025- 4602 Feb, Chronic pain syndrome G89.4 [facility] [id number] [place] [address] 93110- 0442 Feb, Left foot pain M79.672 ; Closed nondisplaced fracture of second metatarsal bone of left foot, initial encounter S92.325A ; Closed nondisplaced fracture of third metatarsal bone of left foot, initial encounter S92.335A and Oral infection K12.2 [facility] [address] [address] Feb, [facility] [id number] [place] [address] 71489- 2762 Jan, [facility] [id number] [place] [address] 25999- 4836 Jan, Type 2 diabetes mellitus with diabetic autonomic (poly) neuropathy E11.43 and Congestive heart failure, unspecified congestive heart failure chronicity, unspecified congestive heart failure type I50.9 [place] [id number] [place] [address] 93600- 5350 Jan, Congestive heart failure, unspecified congestive heart failure chronicity, unspecified congestive heart failure type I50.9 and Stage 3 chronic kidney disease N18.3 [place] [address] 21221- 6449 Jan, Stage 3 chronic kidney disease N18.3 ; Edema of both legs R60.0 ; Chronic congestive heart failure, unspecified congestive heart failure type I50.9 ; Acute low back pain without sciatica, unspecified back pain laterality M54.5 ; Chronic nausea R11.0 and Primary insomnia F51.01 [place] [id number] [place] [address] 91077- 9787 Jan, Severe episode of recurrent major depressive disorder, without psychotic features F33.2 and Anxiety, generalized F41.1 [place] [id number] [place] [address] 93502- 9430 Jan, [place] [address] 57550- 1769 Jan, [place] [id number] [place] [address] 09242- 7080 Jan, [place] [id number] [place] [address] 59898- 6836 Jan, [place] [id number] [place] [address] 95052- 0203 Jan, Anxiety F41.9 and Severe episode of recurrent major depressive disorder, without psychotic features F33.2 [place] [address] 71138- 9331 Jan, Type 2 diabetes mellitus with diabetic autonomic (poly) neuropathy E11.43 [facility] [id number] [place] [address] 18126- 7226 Jan, Severe episode of recurrent major depressive disorder, without psychotic features F33.2 and Type 2 diabetes mellitus with diabetic autonomic (poly)neuropathy E11.43 [place] [address] 94319- 9084 Jan, [place] [address] 49864- 5511 Jan, [place] [address] 99633- 3726 Jan, Stage 3 chronic kidney disease N18.3 ; Seizure disorder G40.909 ; Edema of both legs R60.0 and Blister (nonthermal), right foot, initial encounter S90.821A [place] [address] 89425- 3412 Jan, Severe episode of recurrent major depressive disorder, without psychotic features F33.2 and Anxiety, generalized F41.1 [place] [address] 77884- 6991 Jan, Severe episode of recurrent major depressive disorder, without psychotic features F33.2 and Anxiety, generalized F41.1 [place] [address] 74944- 3741 Jan, [place] [address] 33540- 3998 Jan, Anxiety F41.9 and Primary insomnia F51.01 [place] [id number] [place] [address] 82806- 1220 Jan, Type 2 diabetes mellitus with diabetic autonomic (poly) neuropathy E11.43 ; half-way current use of insulin Z79.4 ; Stage 3 chronic kidney disease N18.3 ; Chronic pain syndrome G89.4 ; Swelling of mandible R22.0 and Seizure disorder G40.909 [place] [id number] [place] [address] 52747- 3017 Jan, [place] [address] 63066- 7436 Jan, [facility] [id number] [place] [address] 62910- 2217 Dec, Severe episode of recurrent major depressive disorder, without psychotic features F33.2 and Anxiety, generalized F41.1 [facility] [id number] [place] [address] 89027- 5968 Dec, Diarrhea, unspecified type R19.7 ; Gastritis determined by endoscopy K29.70 ; Dysuria R30.0 ; Unspecified abdominal pain R10.9 ; Unspecified fall W19.XXXA and Need for assistance with personal care Z74.1 [facility] [id number] [place] [address] 66686- 8830 Dec, Severe episode of recurrent major depressive disorder, without psychotic features F33.2 and Anxiety, generalized F41.1 [facility] [id number] [place] [address] 45824- 3814 Dec, Diarrhea, unspecified type R19.7 ;

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
--- OUTSIDE RECORDS SUMMARY | 2017-12-04 20:17 | XMS REPORT ---
Author Author MIRZA MARTINO Organization [facility] Address [address] [place] [address] Care Team Providers Care Yarding Supervisor Name Role Phone HAIMLindsey MIRZA Unavailable PROBLEMS Type Condition ICD9-CM Code VEE46-MQ Code Onset Dates Condition Status SNOMED Code Problem Postural hypotension I95.1 Active 73774721 Problem Seizure disorder G40.909 Active 464201964 Problem Seasonal allergic rhinitis, unspecified allergic rhinitis trigger J30.2 Active 797722608 Problem Closed nondisplaced fracture of second metatarsal bone of left foot, initial encounter S92.325A Active 27325141 Problem Essential hypertension I10 Active 35744491 Problem Multiple neurological symptoms R29.90 Active 093039054 Problem Port catheter in place Z95.828 Active 003605363 Problem Stage 3 chronic kidney disease N18.3 Active 389206754 Problem Gastritis determined by endoscopy K29.70 Active 9911639 Problem Self-inflicted injury Z72.89 Active 014746406 Problem Borderline personality disorder in adult F60.3 Active 77433457 Problem Chronic congestive heart failure, unspecified congestive heart failure type I50.9 Active 24673145 Problem Chronic pain syndrome G89.4 Active 110238384 Problem Primary insomnia F51.01 Active 8847011 Problem Acquired hypothyroidism E03.9 Active 811495073 Problem Gastroparesis K31.84 Active 058238600 Problem Severe episode of recurrent major depressive disorder, without psychotic features F33.2 Active 68499049 Problem Anxiety, generalized F41.1 Active 08866880 Problem 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 designer current use of insulin Z79.4 Active 972772660 Problem Type 2 diabetes mellitus with diabetic polyneuropathy E11.42 Active 83451270 Problem Tobacco abuse Z72.0 Active 413298853 Problem Noncompliance with diabetes treatment Z91.19 Active 7341255 ALLERGIES No Information ENCOUNTERS Encounter Location Date Diagnosis [facility] [id number] [address] October, [facility] [id number] [id number] Sep, [facility] [id number] [place] [address] 50888- 0435 Sep, [facility] [id number] [place] [address] 91845- 6283 Sep, [facility] [address] 17020- 0922 Sep, [facility] [id number] [place] [address] 07341- 6245 Sep, Chronic pain syndrome G89.4 ; Anxiety, generalized F41.1 and BMI 45.0-49.9, adult Z68.42 [facility] [id number] [place] [address] 27847- 5478 Sep, [facility] [id number] [place] [address] 38621- 7305 Sep, [facility] [id number] [place] [address] 30023- 9084 Sep, Severe episode of recurrent major depressive disorder, without psychotic features F33.2 ; Anxiety, generalized F41.1 and Borderline personality disorder in adult F60.3 [facility] [id number] [place] [address] 01705- 7747 Sep, [facility] [id number] [place] [address] 53639 -7565 Aug, Dysuria R30.0 ; Type 2 diabetes mellitus with diabetic polyneuropathy E11.42 ; Oral abscess K12.2 and BMI 40.0-44.9, adult Z68.41 [facility] [id number] [place] [address] 23574- 0736 Aug, [facility] [id number] [place] [address] 11558- 1362 Aug, [facility] [address], [place] [address] 27 Aug, 2017 [facility] [id number] [place] [address] 00183- 1293 27 Aug, 2017 [facility] [address] [address] 27 Aug, 2017 Severe episode of recurrent major depressive disorder, without psychotic features F33.2 ; Anxiety, generalized F41.1 and Borderline personality disorder in adult F60.3 [facility] [address], [place] [address] 280[address] 22 Aug, 2017 [facility] [id number] [place] [address] 88853- 4469 20 Aug, 2017 [facility] [id number] [place] [address] 05649- 6720 19 Aug, 2017 Severe episode of recurrent major depressive disorder, without psychotic features F33.2 ; Anxiety, generalized F41.1 and Borderline personality disorder in adult F60.3 [facility] [address], [place] [address] 17 Aug, 2017 [facility] [id number] [place] [address] 09227- 5847 15 Aug, 2017 [facility] [address], [place] [address] 29[address] 14 Aug, 2017 [facility] [address], [place] [address] 14 Aug, 2017 Dysuria R30.0 ; Dental infection K04.7 ; Acute cystitis with hematuria N30.01 and BMI 45.0-49.9, adult Z68.42 [facility] [address], [place] [address] 14 Aug, 2017 Severe episode of recurrent major depressive disorder, without psychotic features F33.2 ; Anxiety, generalized F41.1 and Borderline personality disorder in adult F60.3 [facility] [id number] [address] Aug, [facility] [address], [place] [address] Aug, Closed nondisplaced fracture of second metatarsal bone of left foot, initial encounter S92.325A and Chronic pain syndrome G89.4 [facility] [address], [place] [address] 265[address] Aug, Type 2 diabetes mellitus with diabetic polyneuropathy E11.42 [facility] [id number] [place] [address] 92078- 3813 Aug, Severe episode of recurrent major depressive disorder, without psychotic features F33.2 ; Anxiety, generalized F41.1 and Borderline personality disorder in adult F60.3 [facility] [address], [place] [address] 3[address] Aug, [facility] [id number] [place] [address] 24485- 9427 Aug, [facility] [address], [place] [address] 65[address] Aug, [facility] [id number] [place] [address] 99333- 5008 Aug, [facility] [address], [place] [address] 9[address] Aug, [facility] [address] [place] [address] 43305- 1802 Jul, [facility] [address], [place] [address] 2770 Jul, [facility] [id number] [place] [address] 60382- 1575 Jul, Severe episode of recurrent major depressive disorder, without psychotic features F33.2 ; Anxiety, generalized F41.1 and Borderline personality disorder in adult F60.3 [facility] [id number] [place] [address] 22627- 5472 Jul, Type 2 diabetes mellitus with diabetic polyneuropathy E11.42 [facility] [id number] [place] [address] 15991- 1665 Jul, Closed nondisplaced fracture of second metatarsal bone of left foot, initial encounter S92.325A and Closed nondisplaced fracture of third metatarsal bone of left foot, initial encounter S92.335A [facility] [id number] [place] [address] 31469- 8609 Jul, [facility] [address] [place] [address] 58924- 7090 Jul, Closed nondisplaced fracture of second metatarsal bone of left foot, initial encounter S92.325A ; Acute left ankle pain M25.572 ; Acute midline low back pain without sciatica M54.5 and Seasonal allergic rhinitis, unspecified allergic rhinitis trigger J30.2 [facility] [id number] [place] [address] 09655- 0148 Jul, [facility] [id number] [place] [address] 59142- 0157 Jul, [facility] [id number] [place] [address] 73173- 7450 15 Jul, 2017 [facility] [id number] [place] [address] 12151- 5404 15 Jul, 2017 Frequent falls R29.6 [facility] [id number] [place] [address] 13762- 4957 14 Jul, 2017 Frequent falls R29.6 [facility] [id number] [place] [address] 91081- 7162 07 Jul, 2017 Severe episode of recurrent major depressive disorder, without psychotic features F33.2 ; Anxiety, generalized F41.1 and Borderline personality disorder in adult F60.3 [facility] [id number] [place] [address] 01299- 2117 Jul, Chronic pain syndrome G89.4 [facility] [id number] [place] [address] 81793- 7884 Jul, shelter current use of insulin Z79.4 [facility] [id number] [place] [address] 70714- 0184 Jul, [facility] [id number] [place] [address] 66935- 2920 Jul, Type 2 diabetes mellitus with diabetic polyneuropathy E11.42 [facility] [address] 75279- 2463 Jun, 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 designer current use of insulin Z79.4 and Thrush B37.0 [facility] [id number] [place] [address] 39419- 4479 Jun, Severe episode of recurrent major depressive disorder, without psychotic features F33.2 ; Anxiety, generalized F41.1 and Borderline personality disorder in adult F60.3 [facility] [id number] [place] [address] 56184- 1633 Jun, Severe episode of recurrent major depressive disorder, without psychotic features F33.2 ; Anxiety, generalized F41.1 and Borderline personality disorder in adult F60.3 [facility] [id number] [place] [address] 07971- 0223 Jun, Frequent falls R29.6 ; Bronchitis J40 ; BMI 40.0-44.9, adult Z68.41 and Coccygeal pain, acute M53.3 [facility] [id number] [place] [address] 94737- 0889 Jun, [facility] [id number] [place] [address] 90588 -2603 Jun, [facility] [id number] [place] [address] 72187- 8986 Jun, [facility] [address] 62732- 1929 Jun, Dental caries, unspecified K02.9 [facility] [id number] [place] [address] 25066- 7993 Jun, Acute non-recurrent maxillary sinusitis J01.00 and BMI 40.0- 44.9, adult Z68.41 [facility] [id number] [place] [address] 03257- 4690 Jun, [facility] [id number] [place] [address] 20048- 4805 Jun, Severe episode of recurrent major depressive disorder, without psychotic features F33.2 ; Anxiety, generalized F41.1 and Borderline personality disorder in adult F60.3 [facility] [facility] [id number] [place] [address] 26034- 4366 Jun, Closed nondisplaced fracture of third metatarsal bone of left foot with routine healing, subsequent encounter S92.335D ; Closed nondisplaced fracture of second metatarsal bone of left foot with routine healing, subsequent encounter S92.325D and Closed nondisplaced fracture of fourth metatarsal bone of left foot with routine healing, subsequent encounter S92.345D [facility] [address] [place] [address] 45492- 5486 Jun, Severe episode of recurrent major depressive disorder, without psychotic features F33.2 ; Anxiety, generalized F41.1 and Borderline personality disorder in adult F60.3 [facility] [place] [id number] [place] [address] 99805- 2536 Jun, [facility] [address] [place] [address] 65660- 1390 Jun, [facility] [id number] [place] [address] 64248- 1351 Jun, [facility] [id number] [place] [address] 90327- 1065 Jun, [facility] [id number] [place] [address] 59549- 9427 Jun, [facility] [id number] [place] [address] 80097- 6107 Jun, Anxiety F41.9 [facility] [facility] [id number] [place] [address] 42833- 1975 Jun, [facility] [id number] [place] [address] 61088- 4860 Jun, [facility] [id number] [place] [address] 61036- 4123 Jun, Type 2 diabetes mellitus with diabetic autonomic (poly) neuropathy E11.43 [facility] [id number] [place] [address] 92751- 7895 Jun, Severe episode of recurrent major depressive disorder, without psychotic features F33.2 ; Anxiety, generalized F41.1 and Borderline personality disorder in adult F60.3 [facility] [id number] [place] [address] 10775- 5309 Jun, Type 2 diabetes mellitus with diabetic autonomic (poly) neuropathy E11.43 and Chronic pain syndrome G89.4 [facility] [id number] [place] [address] 19446- 0199 May, Recent urinary tract infection Z87.440 ; Deliberate self- cutting Z72.89 ; Chest discomfort R07.89 ; BMI 40.0-44.9, adult Z68.41 and Worried well Z71.1 [facility] [id number] [place] [address] 10454- 7432 May, Severe episode of recurrent major depressive disorder, without psychotic features F33.2 ; Anxiety, generalized F41.1 and Borderline personality disorder in adult F60.3 [facility] [id number] [place] [address] 28847- 3658 18 May, 2017 [address] [address] [place] [address] 00208- 9352 14 May, 2017 [facility] [id number] [place] [address] 57452- 0286 May, Type 2 diabetes mellitus with diabetic autonomic (poly) neuropathy E11.43 [address] [facility] [address] 29649- 9318 May, Severe episode of recurrent major depressive disorder, without psychotic features F33.2 ; Anxiety, generalized F41.1 and Borderline personality disorder in adult F60.[address] 70786- 1521 May, [facility] [address] 81071- 7263 May, Type 2 diabetes mellitus with diabetic autonomic (poly) neuropathy E11.43 ; Multiple neurological symptoms R29.90 ; Dysuria R30.0 ; Tobacco abuse Z72.0 ; Right hip pain M25.551 ; Anxiety F41.9 ; Gastritis determined by endoscopy K29.70 ; Chronic pain syndrome G89.4 ; Acute non- recurrent maxillary sinusitis J01.00 ; Self mutilating behavior Z72.89 and BMI 40.0-44.9, adult Z68.41 [id number] [place] [address] 76020- 0423 May, Severe episode of recurrent major depressive disorder, without psychotic features F33.2 ; Anxiety, generalized F41.1 and Borderline personality disorder in adult F60.3 [facility] [id number] [place] [address] 30956- 3207 Apr, [facility] [id number] [place] [address] 73931- 2877 Apr, [facility] [address] [place] [id number] [place] [address] 34497 -5963 Apr, [facility] [address] [place] [id number] [place] [address] 55835 -5313 Apr, Aspiration pneumonia of right lower lobe, unspecified aspiration pneumonia type J69.[address] 38239- 3160 Apr, Severe episode of recurrent major depressive disorder, without psychotic features F33.2 ; Anxiety, generalized F41.1 and Borderline personality disorder in adult F60.3 [facility] [address] [place] [address] 93617- 6342 Apr, [facility] [id number] [place] [address] 21173- 4440 Apr, Chronic pain syndrome G89.4 [facility] [id number] [place] [address] 09733- 3243 Apr, Severe episode of recurrent major depressive disorder, without psychotic features F33.2 ; Anxiety, generalized F41.1 and Borderline personality disorder in adult F60.3 [facility] [id number] [place] [address] 90742- 5356 16 Apr, 2017 Severe episode of recurrent major depressive disorder, without psychotic features F33.2 ; Anxiety, generalized F41.1 and Borderline personality disorder in adult F60.3 [facility] [address] [place] [address] 23682- 3911 16 Apr, 2017 Closed nondisplaced fracture of third metatarsal bone of left foot with routine healing, subsequent encounter S92.335D ; Closed nondisplaced fracture of fourth metatarsal bone of left foot with routine healing, subsequent encounter S92.345D and Closed nondisplaced fracture of second metatarsal bone of left foot with routine healing, subsequent encounter S92.325D [facility] [facility] [address] [place] [address] 81204- 0848 16 Apr, 2017 [facility] [id number] [place] [address] 48828- 5111 15 Apr, 2017 [facility] [id number] [place] [address] 22763- 6038 14 Apr, 2017 [facility] [address] [place] [address] 36833- 9373 13 Apr, 2017 Screening breast examination Z12.31 [facility] [id number] [place] [address] 44166- 7208 Apr, [facility] [address] 26909- 7114 Apr, Type 2 diabetes mellitus with diabetic autonomic (poly) neuropathy E11.43 [facility] [id number] [place] [address] 13768- 1309 Apr, Severe episode of recurrent major depressive disorder, without psychotic features F33.2 ; Anxiety, generalized F41.1 and Borderline personality disorder in adult F60.3 [facility] [address] 21686- 7447 Apr, Type 2 diabetes mellitus with diabetic autonomic (poly) neuropathy E11.43 ; Chronic pain syndrome G89.4 and Anxiety F41.9 [facility] [address] 33162 -3551 Apr, BMI 45.0-49.9, adult Z68.42 [facility] [address] 34117 -2113 Apr, Avulsion of toenail, initial encounter S91.209A and Acute non-recurrent maxillary sinusitis J01.00 [facility] [id number] [place] [address] 72579- 7351 Apr, [facility] [id number] [place] [address] 26802- 4883 Mar, [facility] [id number] [place] [address] 99386- 0614 Mar, Severe episode of recurrent major depressive disorder, without psychotic features F33.2 ; Anxiety, generalized F41.1 and Borderline personality disorder in adult F60.3 [facility] [address] 53507- 7470 Mar, [facility] [id number] [place] [address] 72614- 4555 Mar, [facility] [place] [address] [place] [address]- 9633 Mar, [facility] [id number] [place] [address] 54126- 2793 Mar, Seizure disorder G40.909 [facility] [id number] [place] [address] 40348- 4434 Mar, [facility] [id number] [place] [address] 43193- 2755 Mar, [facility] [id number] [place] [address] 50540 -0128 Mar, Left foot pain M79.672 ; Stage 3 chronic kidney disease N18.3 and Closed nondisplaced fracture of second metatarsal bone of left foot, initial encounter S92.325A [facility] [id number] [place] [address] 35901- 9010 Mar, Severe episode of recurrent major depressive disorder, without psychotic features F33.2 and Anxiety, generalized F41.1 [facility] [id number] [place] [address] 89522- 9442 Mar, [facility] [id number] [place] [address] 96961- 1739 Mar, Closed nondisplaced fracture of second metatarsal bone of left foot, initial encounter S92.325A and Closed nondisplaced fracture of third metatarsal bone of left foot, initial encounter S92.335A [facility] [id number] [place] [address] 15662- 7358 Mar, Seizure disorder G40.909 [facility] [id number] [place] [address] 56185- 3819 Mar, [facility] [id number] [place] [address] 35377- 4292 Mar, [facility] [id number] [place] [address] 14853- 9017 Mar, [place] [address] [address]- 2663 Mar, [facility] [id number] [place] [address] 60629- 6756 Mar, High risk sexual behavior Z72.51 [facility] [address] [place] [address] 69567- 6246 Mar, Severe episode of recurrent major depressive disorder, without psychotic features F33.2 and Anxiety, generalized F41.1 [facility] [id number] [place] [address] 59505- 1461 Mar, Anxiety F41.9 and Type 2 diabetes mellitus with diabetic autonomic (poly)neuropathy E11.43 [facility] [id number] [place] [address] 98818- 6724 Mar, Anxiety F41.9 [facility] [id number] [place] [address] 23314- 2511 Mar, High risk sexual behavior Z72.51 [facility] [id number] [place] [address] 85042- 0333 Mar, Chronic pain syndrome G89.4 [facility] [id number] [place] [address] 45579- 9800 Mar, Type 2 diabetes mellitus with diabetic autonomic (poly) neuropathy E11.43 [facility] [id number] [place] [address] 15942- 8721 Mar, [facility] [id number] [place] [address] 01432- 3277 Mar, Closed nondisplaced fracture of second metatarsal bone of left foot, initial encounter S92.325A ; Chronic pain syndrome G89.4 ; Closed nondisplaced fracture of third metatarsal bone of left foot, initial encounter S92.335A ; Acute left ankle pain M25.572 and Type 2 diabetes mellitus with diabetic autonomic (poly)neuropathy E11.43 [facility] [address] [place] [address] 72309- 6004 Mar, [facility] [id number] [place] [address] 18404- 6153 Mar, [facility] [id number] [place] [address] 00212- 3946 Mar, Severe episode of recurrent major depressive disorder, without psychotic features F33.2 and Anxiety, generalized F41.1 [facility] [id number] [place] [address] 52484- 4146 Feb, [facility] [id number] [place] [address] 43902- 7525 Feb, Renal insufficiency N28.9 [facility] [id number] [place] [address] 59963- 8062 Feb, [facility] [id number] [place] [address] 90706- 0434 Feb, Severe episode of recurrent major depressive disorder, without psychotic features F33.2 and Anxiety, generalized F41.1 [facility] [id number] [place] [address] 13801- 4101 Feb, [facility] [id number] [place] [address] 11353- 6034 22 Feb, 2017 [facility] [id number] [place] [address] 17287- 5959 Feb, Renal insufficiency N28.9 [facility] [id number] [place] [address] 51191- 2071 19 Feb, 2017 [facility] [address] [place] [address] 62747 -4608 18 Feb, 2017 [facility] [id number] [place] [address] 34951- 7325 14 Feb, 2017 [facility] [address] [place] [address] 26936- 4345 13 Feb, 2017 Severe episode of recurrent major depressive disorder, without psychotic features F33.2 and Anxiety, generalized F41.1 [facility] [id number] [place] [address] 30519- 0488 13 Feb, 2017 Closed nondisplaced fracture of second metatarsal bone of left foot, initial encounter S92.325A ; Chronic pain syndrome G89.4 ; Closed nondisplaced fracture of third metatarsal bone of left foot, initial encounter S92.335A ; Left hip pain M25.552 and Stage 3 chronic kidney disease N18.3 [facility] [id number] [place] [address] 28136- 0243 07 Feb, 2017 [facility] [id number] [place] [address] 22289- 9594 Feb, [facility] [id number] [place] [address] 60679- 0006 Feb, Closed nondisplaced fracture of second metatarsal bone of left foot, initial encounter S92.325A and Closed nondisplaced fracture of third metatarsal bone of left foot, initial encounter S92.335A [facility] [id number] [place] [address] 78628- 2588 Feb, [facility] [id number] [place] [address] 50338 2542 Feb, Anxiety F41.9 [facility] [id number] [place] [address] 01720- 2256 Feb, [facility] [id number] [place] [address] 91418- 1167 Feb, Chronic pain syndrome G89.4 [facility] [id number] [place] [address] 74254- 4394 05 Feb, 2017 Left foot pain M79.672 ; Closed nondisplaced fracture of second metatarsal bone of left foot, initial encounter S92.325A ; Closed nondisplaced fracture of third metatarsal bone of left foot, initial encounter S92.335A and Oral infection K12.2 [facility] [id number] [place] [address] 91369- 1232 Feb, [place] [place] [id number] [place] [address] 00035- 2167 Jan, [facility] [id number] [place] [address] 87869- 3477 Jan, Type 2 diabetes mellitus with diabetic autonomic (poly) neuropathy E11.43 and Congestive heart failure, unspecified congestive heart failure chronicity, unspecified congestive heart failure type I50.9 [facility] [id number] [place] [address] 13185- 9351 Jan, Congestive heart failure, unspecified congestive heart failure chronicity, unspecified congestive heart failure type I50.9 and Stage 3 chronic kidney disease N18.3 [facility] [id number] [place] [address] 03462- 1020 Jan, Stage 3 chronic kidney disease N18.3 ; Edema of both legs R60.0 ; Chronic congestive heart failure, unspecified congestive heart failure type I50.9 ; Acute low back pain without sciatica, unspecified back pain laterality M54.5 ; Chronic nausea R11.0 and Primary insomnia F51.01 [facility] [id number] [place] [address] 19009- 6115 Jan, Severe episode of recurrent major depressive disorder, without psychotic features F33.2 and Anxiety, generalized F41.1 [facility] [id number] [place] [address] 01565- 0737 Jan, [facility] [place] [id number] [place] [address] 02146- 8016 Jan, [facility] [place] [id number] [place] [address] 22665- 0001 Jan, [facility] [place] [id number] [place] [address] 36695- 5914 Jan, [facility] [place] [id number] [place] [address] 84601- 8541 Jan, Anxiety F41.9 and Severe episode of recurrent major depressive disorder, without psychotic features F33.2 [facility] [place] [id number] [place] [address] 31198- 4461 Jan, Type 2 diabetes mellitus with diabetic autonomic (poly) neuropathy E11.43 [facility] [id number] [place] [address] 37934- 3050 Jan, Severe episode of recurrent major depressive disorder, without psychotic features F33.2 and Type 2 diabetes mellitus with diabetic autonomic (poly)neuropathy E11.43 [facility] [id number] [place] [address] 49917- 7991 Jan, [facility] [id number] [place] [address] 68941- 5907 Jan, [facility] [id number] [place] [address] 78349- 1220 Jan, Stage 3 chronic kidney disease N18.3 ; Seizure disorder G40.909 ; Edema of both legs R60.0 and Blister (nonthermal), right foot, initial encounter S90.821A [facility] [place] [id number] [place] [address] 71980- 5898 Jan, Severe episode of recurrent major depressive disorder, without psychotic features F33.2 and Anxiety, generalized F41.1 [facility] [id number] [place] [address] 13614- 9480 Jan, Severe episode of recurrent major depressive disorder, without psychotic features F33.2 and Anxiety, generalized F41.1 [facility] [id number] [place] [address] 74938- 1670 Jan, [facility] [address] [id number] [place] [address] 27801- 0364 Jan, Anxiety F41.9 and Primary insomnia F51.01 [facility] [id number] [place] [address] 48012- 3175 Jan, Type 2 diabetes mellitus with diabetic autonomic (poly) neuropathy E11.43 ; shelter current use of insulin Z79.4 ; Stage 3 chronic kidney disease N18.3 ; Chronic pain syndrome G89.4 ; Swelling of mandible R22.0 and Seizure disorder G40.909 [facility] [id number] [place] [address] 01570- 6339 Jan, [facility] [id number] [place] [address] 09294- 5651 Jan, [facility] [id number] [place] [address] 23361- 1178 Dec, Severe episode of recurrent major depressive disorder, without psychotic features F33.2 and Anxiety, generalized F41.1 [place] [id number] [place] [address] 65004- 6983 Dec, Diarrhea, unspecified type R19.7 ; Gastritis determined by endoscopy K29.70 ; Dysuria R30.0 ; Unspecified abdominal pain R10.9 ; Unspecified fall W19.XXXA and Need for assistance with personal care Z74.1 [facility] [id number] [place] [address] 63294- 1312 Dec, Severe episode of recurrent major depressive disorder, without psychotic features F33.2 and Anxiety, generalized F41.1 [facility] [place] [id number] [place] [address] 77926- 4044 Dec, Diarrhea, unspecified type R19.7 ; Dysuria R30.0 ; Unspecified abdominal pain R10.9 ; Gastritis determined by endoscopy K29.70 ; Unspecified fall W19.XXXA and Need for assistance with personal care Z74.1 [facility] [id number] [place] [address] 43199- 2445 Dec, [facility] [id number] [place] [address] 35788- 8593 Dec, [facility] [id number] [place] [address] 93747- 8666 Dec, Type 2 diabetes mellitus with diabetic autonomic (poly) neuropathy E11.43 [place] [place] [id number] [place] [address] 53793- 2732 17 Dec, 2016 Severe episode of

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
--- OUTSIDE RECORDS SUMMARY | 2017-12-04 20:19 | XMS REPORT ---
Author Author MIRZA MARTINO Organization [facility] Address [address] [place] [address] Care Team Providers Care Agricultural Sciences Professor Name Role Phone HAIMLindsey MIRZA Unavailable PROBLEMS Type Condition ICD9-CM Code KCM89-TH Code Onset Dates Condition Status SNOMED Code Problem Postural hypotension I95.1 Active 68620434 Problem Seizure disorder G40.909 Active 628876747 Problem Seasonal allergic rhinitis, unspecified allergic rhinitis trigger J30.2 Active 711546975 Problem Closed nondisplaced fracture of second metatarsal bone of left foot, initial encounter S92.325A Active 04718564 Problem Essential hypertension I10 Active 55382459 Problem Multiple neurological symptoms R29.90 Active 780109652 Problem Port catheter in place Z95.828 Active 540876031 Problem Stage 3 chronic kidney disease N18.3 Active 330148029 Problem Gastritis determined by endoscopy K29.70 Active 6554648 Problem Self-inflicted injury Z72.89 Active 797120710 Problem Borderline personality disorder in adult F60.3 Active 30980189 Problem Chronic congestive heart failure, unspecified congestive heart failure type I50.9 Active 91346629 Problem Chronic pain syndrome G89.4 Active 977480376 Problem Primary insomnia F51.01 Active 9221609 Problem Acquired hypothyroidism E03.9 Active 836154076 Problem Gastroparesis K31.84 Active 144373558 Problem Severe episode of recurrent major depressive disorder, without 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 Active 22007690 Problem Anxiety, generalized F41.1 Active 63568168 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 Active 323406260 Problem Type 2 diabetes mellitus with diabetic polyneuropathy E11.42 Active 76873986 Problem Tobacco abuse Z72.0 Active 290961790 Problem Noncompliance with diabetes treatment Z91.19 Active 2928751 ALLERGIES No Information ENCOUNTERS Encounter Location Date Diagnosis [facility] [address], [place] [address] October, [facility] [address], [place] [address] October, [facility] [id number] [place] [address] 055643- 6521 October, [facility] [address], [place] [address] October, [facility] [address] [place] [address] [id number] Sep, [facility] [id number] [place] [address] 90352- 6278 Sep, Severe episode of recurrent major depressive disorder, without psychotic features F33.2 ; Anxiety, generalized F41.1 and Borderline personality disorder in adult F60.3 [facility] [id number] [place] [address] 52381- 3815 Sep, [facility] [id number] [place] [address] 83456- 0114 Sep, Throat pain R07.0 ; BMI 40.0-44.9, adult Z68.41 and Chronic pain syndrome G89.4 [facility] [address] [place] [address] 62078- 9980 Sep, [facility] [address] [place] [address] 29883- 3411 Sep, [facility] [address] [place] [address] 77773- 5892 Sep, [facility] [address] [place] [address] 02847- 7056 Sep, Anxiety, generalized F41.1 [facility] [id number] [place] [address] 06516- 9005 Sep, [facility] [address], [place] [address] Sep, Stage 3 chronic kidney disease N18.3 [facility] [id number] [place] [address] 97034- 3839 Sep, Stage 3 chronic kidney disease N18.3 and Chronic pain syndrome G89.4 [facility] [id number] [place] [address] 23623- 3944 Sep, Severe episode of recurrent major depressive disorder, without psychotic features F33.2 ; Anxiety, generalized F41.1 and Borderline personality disorder in adult F60.3 [facility] [id number] [place] [address] 79106- 5136 04 Sep, 2017 Chronic pain syndrome G89.4 ; Anxiety, generalized F41.1 and BMI 45.0-49.9, adult Z68.42 [facility] [id number] [place] [address] 68011- 6116 Sep, [facility] [id number] [place] [address] 09431- 7186 Sep, [facility] [id number] [place] [address] 68480- 5546 Sep, Severe episode of recurrent major depressive disorder, without psychotic features F33.2 ; Anxiety, generalized F41.1 and Borderline personality disorder in adult F60.3 [facility] [address] [place] [address] 35167- 8840 Sep, [facility] [address] [place] [address] 38651 -7145 Aug, Dysuria R30.0 ; Type 2 diabetes mellitus with diabetic polyneuropathy E11.42 ; Oral abscess K12.2 and BMI 40.0-44.9, adult Z68.41 [facility] [id number] [place] [address] 82003- 4253 30 Aug, 2017 [facility] [id number] [place] [address] 10011- 9875 Aug, [facility] [id number] [place] [address] 96196- 9359 Aug, 2017 [facility] [address], [place] [address] 8669 27 Aug, 2017 [facility] [id number] [place] [address] 95616- 4515 27 Aug, 2017 Severe episode of recurrent major depressive disorder, without psychotic features F33.2 ; Anxiety, generalized F41.1 and Borderline personality disorder in adult F60.3 [facility] [id number] [place] [address] 33991- 3366 22 Aug, 2017 [facility] [id number] [place] [address] 97301- 5600 20 Aug, 2017 [facility] [id number] [place] [address] 74505- 2789 19 Aug, 2017 Severe episode of recurrent major depressive disorder, without psychotic features F33.2 ; Anxiety, generalized F41.1 and Borderline personality disorder in adult F60.3 [facility] [address] [place] [address] 63170 -3312 17 Aug, 2017 [facility] [id number] [place] [address] 80916- 2243 15 Aug, 2017 [facility] [address] [place] [address] 19888- 0547 14 Aug, 2017 [facility] [address], [place] [address] 14 Aug, 2017 Dysuria R30.0 ; Dental infection K04.7 ; Acute cystitis with hematuria N30.01 and BMI 45.0-49.9, adult Z68.42 [facility] [address], [place] [address] 18[address] 14 Aug, 2017 Severe episode of recurrent major depressive disorder, without psychotic features F33.2 ; Anxiety, generalized F41.1 and Borderline personality disorder in adult F60.3 [facility] [address] [place] [address] 37874- 1279 09 Aug, 2017 [facility] [address], [place] [address] 49[address] Aug, Closed nondisplaced fracture of second metatarsal bone of left foot, initial encounter S92.325A and Chronic pain syndrome G89.4 [facility] [address], [place] [address]- 3466 08 Aug, 2017 Type 2 diabetes mellitus with diabetic polyneuropathy E11.42 [facility] [address], [place] [address] 2546 Aug, Severe episode of recurrent major depressive disorder, without psychotic features F33.2 ; Anxiety, generalized F41.1 and Borderline personality disorder in adult F60.3 [facility] [address], [place] [address] 8996 Aug, [facility] [address], [place] [address]- 5536 Aug, [facility] [address], [place] [address]- 6797 Aug, [facility] [address], [place] [address]- 6359 Aug, [facility] [address], [place] [address]- 8254 Aug, [facility] [address], [place] [address]- 2705 Jul, [facility] [address], [place] [address]- 0216 Jul, [facility] [id number], [place] [address]- 3217 Jul, Severe episode of recurrent major depressive disorder, without psychotic features F33.2 ; Anxiety, generalized F41.1 and Borderline personality disorder in adult F60.3 [facility] [address], [place] [address]- 9588 Jul, Type 2 diabetes mellitus with diabetic polyneuropathy E11.42 [facility] [address] [place] [address] 77197- 3147 22 Jul, 2017 Closed nondisplaced fracture of second metatarsal bone of left foot, initial encounter S92.325A and Closed nondisplaced fracture of third metatarsal bone of left foot, initial encounter S92.335A [facility] [id number] [place] [address] 33962- 7941 Jul, [facility] [id number] [place] [address] 79302- 6803 20 Jul, 2017 Closed nondisplaced fracture of second metatarsal bone of left foot, initial encounter S92.325A ; Acute left ankle pain M25.572 ; Acute midline low back pain without sciatica M54.5 and Seasonal allergic rhinitis, unspecified allergic rhinitis trigger J30.2 [facility] [id number] [place] [address] 24432- 1043 Jul, [facility] [id number] [place] [address] 53213- 2458 Jul, [facility] [id number] [place] [address] 04694- 9083 15 Jul, 2017 [place] [id number] [place] [address] 71480- 0031 15 Jul, 2017 Frequent falls R29.6 [facility] [id number] [place] [address] 46221- 4672 14 Jul, 2017 Frequent falls R29.6 [facility] [address] [place] [address] 57514- 4693 07 Jul, 2017 Severe episode of recurrent major depressive disorder, without psychotic features F33.2 ; Anxiety, generalized F41.1 and Borderline personality disorder in adult F60.3 [facility] [address] [place] [address] 49997- 7125 07 Jul, 2017 Chronic pain syndrome G89.4 [facility] [id number] [place] [address] 42593- 8204 Jul, care home current use of insulin Z79.4 [facility] [id number] [place] [address] 93981- 2147 Jul, [place] [id number] [place] [address] 16048- 9030 Jul, Type 2 diabetes mellitus with diabetic polyneuropathy E11.42 [facility] [id number] [place] [address] 29481- 3402 Jun, care home current use of insulin Z79.4 and Thrush B37.0 [place] [address] 42882- 8667 Jun, Severe episode of recurrent major depressive disorder, without psychotic features F33.2 ; Anxiety, generalized F41.1 and Borderline personality disorder in adult F60.3 [place] [facility] [address] 87874- 5163 Jun, Severe episode of recurrent major depressive disorder, without psychotic features F33.2 ; Anxiety, generalized F41.1 and Borderline personality disorder in adult F60.3 [facility] [id number] [place] [address] 36672- 3290 Jun, Frequent falls R29.6 ; Bronchitis J40 ; BMI 40.0-44.9, adult Z68.41 and Coccygeal pain, acute M53.3 [facility] [id number] [place] [address] 01708- 0574 Jun, [facility] [id number] [place] [address] 95555 -5102 Jun, [place] [facility] [id number] [place] [address] 85744- 8367 Jun, [place] [id number] [place] [address] 62240- 4982 Jun, Dental caries, unspecified K02.9 [facility] [address], [place] [address]- 6725 Jun, Acute non-recurrent maxillary sinusitis J01.00 and BMI 40.0- 44.9, adult Z68.41 [facility] [address], [place] [address]- 3454 Jun, [facility] [id number] [place] [address] 93880- 8327 Jun, Severe episode of recurrent major depressive disorder, without psychotic features F33.2 ; Anxiety, generalized F41.1 and Borderline personality disorder in adult F60.3 [facility] [address] [place] [address] 44459- 6416 Jun, Closed nondisplaced fracture of third metatarsal bone of left foot with routine healing, subsequent encounter S92.335D ; Closed nondisplaced fracture of second metatarsal bone of left foot with routine healing, subsequent encounter S92.325D and Closed nondisplaced fracture of fourth metatarsal bone of left foot with routine healing, subsequent encounter S92.345D [facility] [address] [place] [address] 64258- 7954 Jun, Severe episode of recurrent major depressive disorder, without psychotic features F33.2 ; Anxiety, generalized F41.1 and Borderline personality disorder in adult F60.3 [facility] [address], [place] [address]- 7722 Jun, [facility] [address] [place] [address] 14870- 6930 Jun, [facility] [address], [place] [address]- 2690 Jun, [facility] [id number] [place] [address] 23319- 4052 Jun, [facility] [address], [place] [address]- 8152 Jun, [facility] [address], [place] [address]- 3422 Jun, Anxiety F41.9 [facility] [id number] [place] [address] 22047- 7436 Jun, [facility] [id number] [place] [address] 65511- 9572 Jun, [facility] [id number] [place] [address] 89392- 5887 Jun, Type 2 diabetes mellitus with diabetic autonomic (poly) neuropathy E11.43 [facility] [id number] [place] [address] 71346- 2808 Jun, Severe episode of recurrent major depressive disorder, without psychotic features F33.2 ; Anxiety, generalized F41.1 and Borderline personality disorder in adult F60.3 [facility] [id number] [place] [address] 62519- 2400 Jun, Type 2 diabetes mellitus with diabetic autonomic (poly) neuropathy E11.43 and Chronic pain syndrome G89.4 [facility] [id number] [place] [address] 37468- 3414 May, Recent urinary tract infection Z87.440 ; Deliberate self- cutting Z72.89 ; Chest discomfort R07.89 ; BMI 40.0-44.9, adult Z68.41 and Worried well Z71.1 [place] [address] [place] [address] 51727- 6940 May, Severe episode of recurrent major depressive disorder, without psychotic features F33.2 ; Anxiety, generalized F41.1 and Borderline personality disorder in adult F60.3 [facility] [facility] [id number] [place] [address] 70488- 7265 18 May, 2017 [place] [facility] [id number] [place] [address] 46633- 5304 14 May, 2017 [place] [address] [place] [address] 64454- 7536 May, Type 2 diabetes mellitus with diabetic autonomic (poly) neuropathy E11.43 [facility] [id number] [place] [address] 25503- 5272 May, Severe episode of recurrent major depressive disorder, without psychotic features F33.2 ; Anxiety, generalized F41.1 and Borderline personality disorder in adult F60.3 [place] [id number] [place] [address] 44758- 9865 May, [place] [id number] [place] [address] 12462- 4920 May, Type 2 diabetes mellitus with diabetic autonomic (poly) neuropathy E11.43 ; Multiple neurological symptoms R29.90 ; Dysuria R30.0 ; Tobacco abuse Z72.0 ; Right hip pain M25.551 ; Anxiety F41.9 ; Gastritis determined by endoscopy K29.70 ; Chronic pain syndrome G89.4 ; Acute non- recurrent maxillary sinusitis J01.00 ; Self mutilating behavior Z72.89 and BMI 40.0-44.9, adult Z68.41 [facility] [facility] [id number] [place] [address] 99779- 6999 May, Severe episode of recurrent major depressive disorder, without psychotic features F33.2 ; Anxiety, generalized F41.1 and Borderline personality disorder in adult F60.3 [place] [address] [place] [address] 30323- 5432 Apr, [place] [id number] [place] [address] 73231- 0485 Apr, [facility] [id number] [place] [address] 61823 -0050 Apr, [facility] [address] [place] [id number] [place] [address] 47807 -7051 Apr, Aspiration pneumonia of right lower lobe, unspecified aspiration pneumonia type J69.0 [place] [id number] [place] [address] 83305- 6942 Apr, Severe episode of recurrent major depressive disorder, without psychotic features F33.2 ; Anxiety, generalized F41.1 and Borderline personality disorder in adult F60.3 [facility] [address], [place] [address]- 7818 Apr, [facility] [address] [place] [address] 96541- 1023 Apr, Chronic pain syndrome G89.4 [facility] [address] [place] [address] 73325- 0999 21 Apr, 2017 Severe episode of recurrent major depressive disorder, without psychotic features F33.2 ; Anxiety, generalized F41.1 and Borderline personality disorder in adult F60.3 [facility] [address] [place] [address] 63489- 0688 16 Apr, 2017 Severe episode of recurrent major depressive disorder, without psychotic features F33.2 ; Anxiety, generalized F41.1 and Borderline personality disorder in adult F60.3 [place] [id number] [place] [address] 40396- 4578 16 Apr, 2017 Closed nondisplaced fracture of third metatarsal bone of left foot with routine healing, subsequent encounter S92.335D ; Closed nondisplaced fracture of fourth metatarsal bone of left foot with routine healing, subsequent encounter S92.345D and Closed nondisplaced fracture of second metatarsal bone of left foot with routine healing, subsequent encounter S92.325D [place] [address] [place] [address]- 2347 16 Apr, 2017 [facility] [id number] [place] [address] 43368- 0333 15 Apr, 2017 [facility] [address] [place] [address] 63446- 0800 14 Apr, 2017 [place] [id number] [place] [address] 81415- 2505 13 Apr, 2017 Screening breast examination Z12.31 [place] [id number] [place] [address] 41834- 7564 09 Apr, 2017 [place] [address] [place] [address] 82357- 5676 Apr, Type 2 diabetes mellitus with diabetic autonomic (poly) neuropathy E11.43 [facility] [id number] [place] [address] 47331- 0153 Apr, Severe episode of recurrent major depressive disorder, without psychotic features F33.2 ; Anxiety, generalized F41.1 and Borderline personality disorder in adult F60.3 [facility] [id number] [place] [address] 26131- 2947 Apr, Type 2 diabetes mellitus with diabetic autonomic (poly) neuropathy E11.43 ; Chronic pain syndrome G89.4 and Anxiety F41.[address] [facility] [id number] [place] [address] 31088 -4283 Apr, BMI 45.0-49.9, adult Z68.[address] [facility] [id number] [place] [address] 34065 -5894 Apr, Avulsion of toenail, initial encounter S91.209A and Acute non-recurrent maxillary sinusitis J01.00 [facility] [id number] [place] [address] 55570- 9891 Apr, [facility] [id number] [place] [address] 61763- 8560 Mar, [facility] [id number] [place] [address] 78146- 1333 Mar, Severe episode of recurrent major depressive disorder, without psychotic features F33.2 ; Anxiety, generalized F41.1 and Borderline personality disorder in adult F60.3 [facility] [id number] [place] [address] 45939- 3408 Mar, [facility] [id number] [place] [address] 40031- 9218 Mar, [facility] [id number] [place] [address] 16560- 9596 Mar, [facility] [address], [place] [address]- 1383 Mar, Seizure disorder G40.909 [facility] [id number] [place] [address] 34248- 1691 Mar, [facility] [address] [place] [address]- [phone] Mar, [facility] [id number] [place] [phone] Mar, Left foot pain M79.672 ; Stage 3 chronic kidney disease N18.3 and Closed nondisplaced fracture of second metatarsal bone of left foot, initial encounter S92.325A [facility] [id number] [place] [phone]- [address]32 Mar, Severe episode of recurrent major depressive disorder, without psychotic features F33.2 and Anxiety, generalized F41.1 [facility] [id number] [place] [phone]- [phone] Mar, [facility] ([facility] [id number] [place] [address]- 8285 Mar, Closed nondisplaced fracture of second metatarsal bone of left foot, initial encounter S92.325A and Closed nondisplaced fracture of third metatarsal bone of left foot, initial encounter S92.335A [facility] [id number] [place] [address] 55422- 1334 Mar, Seizure disorder G40.909 [facility] [id number] [place] [address] 73753- 5264 Mar, [facility] [id number] [place] [address] 97201- 1076 Mar, [facility] [id number] [place] [address] 22965- 1386 Mar, [facility] [id number] [place] [address] 58644- 0102 Mar, [facility] [address] [place] [address] 68378- 5847 Mar, High risk sexual behavior Z72.51 [facility] [id number] [place] [address] 93106- 6133 Mar, Severe episode of recurrent major depressive disorder, without psychotic features F33.2 and Anxiety, generalized F41.1 [place] [id number] [place] [address] 48905- 4713 Mar, Anxiety F41.9 and Type 2 diabetes mellitus with diabetic autonomic (poly)neuropathy E11.43 [place] [id number] [place] [address] 89558- 8381 Mar, Anxiety F41.9 [place] [id number] [place] [address] 95965- 8308 Mar, High risk sexual behavior Z72.51 [place] [id number] [place] [address] 85008- 7965 Mar, Chronic pain syndrome G89.4 [place] [id number] [place] [address] 45271- 9435 Mar, Type 2 diabetes mellitus with diabetic autonomic (poly) neuropathy E11.43 [place] [id number] [place] [address] 56488- 1930 Mar, [place] [id number] [place] [address] 01348- 6934 Mar, Closed nondisplaced fracture of second metatarsal bone of left foot, initial encounter S92.325A ; Chronic pain syndrome G89.4 ; Closed nondisplaced fracture of third metatarsal bone of left foot, initial encounter S92.335A ; Acute left ankle pain M25.572 and Type 2 diabetes mellitus with diabetic autonomic (poly)neuropathy E11.43 [facility] [address] [address] 4429 Mar, [facility] [id number] [address]- 7657 Mar, [facility] [id number] [place] [address] 25919- 4572 Mar, Severe episode of recurrent major depressive disorder, without psychotic features F33.2 and Anxiety, generalized F41.1 [facility] [address] [place] [address] 64041- 7169 Feb, [facility] [id number] [place] [address] 88334- 5513 Feb, Renal insufficiency N28.9 [facility] [id number] [place] [address] 10189- 7239 Feb, [facility] [id number] [place] [address] 96096- 7115 Feb, Severe episode of recurrent major depressive disorder, without psychotic features F33.2 and Anxiety, generalized F41.1 [facility] [id number] [place] [address] 25477- 4021 Feb, [facility] [id number] [place] [address] 97511- 2148 22 Feb, 2017 [facility] [id number] [place] [address] 57828- 7676 Feb, Renal insufficiency N28.9 [facility] [id number] [place] [address] 71024 2542 19 Feb, 2017 [facility] [address] [address] 18 Feb, 2017 [facility] [id number] [place] [address] 05999- 5217 14 Feb, 2017 [facility] [id number] [place] [address] 75541- 2951 13 Feb, 2017 Severe episode of recurrent major depressive disorder, without psychotic features F33.2 and Anxiety, generalized F41.1 [facility] [id number] [address]- 8870 13 Feb, 2017 Closed nondisplaced fracture of second metatarsal bone of left foot, initial encounter S92.325A ; Chronic pain syndrome G89.4 ; Closed nondisplaced fracture of third metatarsal bone of left foot, initial encounter S92.335A ; Left hip pain M25.552 and Stage 3 chronic kidney disease N18.3 [facility] [id number] [place] [address] 73652- 1761 Feb, [facility] [id number] [place] [address] 48672- 5695 Feb, [facility] [id number] [place] [address] 25989- 5128 Feb, Closed nondisplaced fracture of second metatarsal bone of left foot, initial encounter S92.325A and Closed nondisplaced fracture of third metatarsal bone of left foot, initial encounter S92.335A [facility] [id number] [place] [address] 25613- 4791 Feb, [facility] [id number] [place] [address] 28284- 9809 Feb, Anxiety F41.9 [facility] [id number] [place] [address] 53691- 6333 Feb, [facility] [id number] [place] [address] 22742- 8232 Feb, Chronic pain syndrome G89.4 [facility] [id number] [place] [address] 77013- 3273 05 Feb, 2017 Left foot pain M79.672 ; Closed nondisplaced fracture of second metatarsal bone of left foot, initial encounter S92.325A ; Closed nondisplaced fracture of third metatarsal bone of left foot, initial encounter S92.335A and Oral infection K12.2 [facility] [address] [place] [address] 33641- 4941 Feb, [facility] [address] [address]- 4507 Jan, [facility] [id number] [place] [address] 20519- 2232 Jan, Type 2 diabetes mellitus with diabetic autonomic (poly) neuropathy E11.43 and Congestive heart failure, unspecified congestive heart failure chronicity, unspecified congestive heart failure type I50.9 [place] [id number] [place] [address] 60648- 5424 Jan, Congestive heart failure, unspecified congestive heart failure chronicity, unspecified congestive heart failure type I50.9 and Stage 3 chronic kidney disease N18.3 [place] [id number] [place] [address] 85708- 0266 Jan, Stage 3 chronic kidney disease N18.3 ; Edema of both legs R60.0 ; Chronic congestive heart failure, unspecified congestive heart failure type I50.9 ; Acute low back pain without sciatica, unspecified back pain laterality M54.5 ; Chronic nausea R11.0 and Primary insomnia F51.01 [place] [id number] [place] [address] 93691- 7509 Jan, Severe episode of recurrent major depressive disorder, without psychotic features F33.2 and Anxiety, generalized F41.1 [place] [address] [address]- 5535 Jan, [place] [id number] [place] [address] 72972- 6443 Jan, [facility] [id number] [place] [address] 96950- 1995 Jan, [place] [id number] [place] [address] 72090- 5600 Jan, [facility] [id number] [place] [address] 57985- 0200 Jan, Anxiety F41.9 and Severe episode of recurrent major depressive disorder, without psychotic features F33.2 [place] [id number] [place] [address] 03755- 3048 Jan, Type 2 diabetes mellitus with diabetic autonomic (poly) neuropathy E11.43 [place] [id number] [place] [address] 20686- 6026 Jan, Severe episode of recurrent major depressive disorder, without psychotic features F33.2 and Type 2 diabetes mellitus with diabetic autonomic (poly)neuropathy E11.43 [place] [id number] [place] [address] 80513- 8135 Jan, [place] [id number] [place] [address] 93580- 1762 Jan, [place] [id number] [place] [address] 95669- 1669 Jan, Stage 3 chronic kidney disease N18.3 ; Seizure disorder G40.909 ; Edema of both legs R60.0 and Blister (nonthermal), right foot, initial encounter S90.821A [place] [id number] [place] [address] 69892- 0072 Jan, Severe episode of recurrent major depressive disorder, without psychotic features F33.2 and Anxiety, generalized F41.1 [place] [id number] [place] [address] 82606- 3710 Jan, Severe episode of recurrent major depressive disorder, without psychotic features F33.2 and Anxiety, generalized F41.1 [place] [id number] [place] [address] 92032- 0817 Jan, [place] [id number] [place] [address] 77111- 8889 Jan, Anxiety F41.9 and Primary insomnia F51.01 [place] [id number] [place] [address] 36283- 1476 Jan, Type 2 diabetes mellitus with diabetic autonomic (poly) neuropathy E11.43 ; care home current use of insulin Z79.4 ; Stage 3 chronic kidney disease N18.3 ; Chronic pain syndrome G89.4 ; Swelling of mandible R22.0 and Seizure disorder G40.909 [place] [id number] [place] [address] 81454- 6512 Jan, [place] [id number] [place] [address] 71927- 6314 Jan, [place] [id number] [place] [address] 71252- 6467 Dec, Severe

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
--- OUTSIDE RECORDS SUMMARY | 2017-12-04 20:23 | XMS REPORT ---
Author Author MIRZA MARTINO Organization [facility] Address [address] [place] [address] Care Team Providers Care Software Controls Engineer Name Role Phone SALENA MIRZA Unavailable PROBLEMS Type Condition ICD9-CM Code TQK30-PO Code Onset Dates Condition Status SNOMED Code Problem Seasonal allergic rhinitis, unspecified allergic rhinitis trigger J30.2 Active 019339734 Problem Self-inflicted injury Z72.89 Active 777597431 Problem Seizure disorder G40.909 Active 281621121 Problem Postconcussion syndrome F07.81 Active 35182088 Problem Acquired hypothyroidism E03.9 Active 084786459 Problem Closed nondisplaced fracture of second metatarsal bone of left foot, initial encounter S92.325A Active 14409504 Problem Essential hypertension I10 Active 22969775 Problem Port catheter in place Z95.828 Active 334777116 Problem Chronic congestive heart failure, unspecified congestive heart failure type I50.9 Active 74348043 Problem Gastritis determined by endoscopy K29.70 Active 7178759 Problem Multiple neurological symptoms R29.90 Active 198866306 Problem Borderline personality disorder in adult F60.3 Active 26316981 Problem Primary insomnia F51.01 Active 5612631 Problem long term current use of insulin Z79.4 Active 596849079 Problem Gastroparesis K31.84 Active 361231288 Problem Chronic pain syndrome G89.4 Active 761853111 Problem Anxiety, generalized F41.1 Active 52877666 Problem Type 2 diabetes mellitus with diabetic polyneuropathy E11.42 Active 71480364 Problem Tobacco abuse Z72.0 Active 793631484 Problem Noncompliance with diabetes treatment Z91.19 Active 4830561 Problem Stage 3 chronic kidney disease N18.3 Active 772032275 Problem Severe episode of recurrent major depressive disorder, without 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 Active 09640035 Problem Postural hypotension I95.1 Active 69534960 ALLERGIES No Information ENCOUNTERS Encounter Location Date Diagnosis [facility] [address], [place] [address] October, [facility] [id number] [place] [address] 95785- 9004 October, [facility] [id number] [place] [address] 74394- 1681 October, [facility] [id number] [place] [address] 25172- 3370 October, [facility] [id number] [place] [address] 74495- 7827 Sep, [facility] [id number] [place] [address] 98163 -6291 Sep, Neck pain M54.2 ; Strain of lumbar region, initial encounter S39.012A and Postconcussion syndrome F07.81 [facility] [id number] [place] [address] 38676- 0240 Sep, [facility] [id number] [place] [address] 90284- 8113 Sep, Severe episode of recurrent major depressive disorder, without psychotic features F33.2 ; Anxiety, generalized F41.1 and Borderline personality disorder in adult F60.3 [facility] [id number] [place] [address] 30603- 7584 Sep, [facility] [id number] [place] [address] 01742- 7625 Sep, Throat pain R07.0 ; BMI 40.0-44.9, adult Z68.41 and Chronic pain syndrome G89.4 [facility] [id number] [place] [address] 86010- 3459 Sep, [facility] [id number] [place] [address] 42371- 1308 Sep, [facility] [id number] [place] [address] 50413- 9856 Sep, [facility] [address], [place] [address] Sep, Anxiety, generalized F41.1 [place] [id number] [place] [address] 17372- 3611 Sep, [facility] [id number] [place] [address] 39690- 7206 Sep, Stage 3 chronic kidney disease N18.3 [facility] [id number] [place] [address] 98569- 6896 Sep, Stage 3 chronic kidney disease N18.3 and Chronic pain syndrome G89.4 [place] [id number] [place] [address] 71116- 5677 Sep, Severe episode of recurrent major depressive disorder, without psychotic features F33.2 ; Anxiety, generalized F41.1 and Borderline personality disorder in adult F60.3 [place] [id number] [place] [address] 08120- 3132 Sep, Chronic pain syndrome G89.4 ; Anxiety, generalized F41.1 and BMI 45.0-49.9, adult Z68.42 [place] [id number] [place] [address] 58593- 6676 Sep, [place] [id number] [place] [address] 07536- 0107 Sep, [facility] [id number] [place] [address] 58171- 9871 Sep, Severe episode of recurrent major depressive disorder, without psychotic features F33.2 ; Anxiety, generalized F41.1 and Borderline personality disorder in adult F60.3 [place] [id number] [place] [address] 34468- 7746 Sep, [facility] [id number] [place] [address] 36962 -4039 Aug, Dysuria R30.0 ; Type 2 diabetes mellitus with diabetic polyneuropathy E11.42 ; Oral abscess K12.2 and BMI 40.0-44.9, adult Z68.41 [facility] [address] [place] [address] 77251- 8381 30 Aug, 2017 [facility] [id number] [place] [address] 13340- 6060 Aug, [facility] [id number] [place] [address] 35719- 7836 Aug, [facility] [id number] [place] [address] 37415- 9051 Aug, [facility] [id number] [place] [address] 82402- 8700 Aug, Severe episode of recurrent major depressive disorder, without psychotic features F33.2 ; Anxiety, generalized F41.1 and Borderline personality disorder in adult F60.3 [place] [id number] [place] [address] 98911- 8978 22 Aug, 2017 [facility] [address] [place] [address] 82398- 8480 20 Aug, 2017 [facility] [id number] [place] [address] 40318- 8140 19 Aug, 2017 Severe episode of recurrent major depressive disorder, without psychotic features F33.2 ; Anxiety, generalized F41.1 and Borderline personality disorder in adult F60.3 [facility] [address], [place] [address] 17 Aug, 2017 [facility] [address], [place] [address] 5332 15 Aug, 2017 [facility] [id number] [place] [address] 78062- 2331 14 Aug, 2017 [facility] [address], [place] [address] 14 Aug, 2017 Dysuria R30.0 ; Dental infection K04.7 ; Acute cystitis with hematuria N30.01 and BMI 45.0-49.9, adult Z68.42 [facility] [id number] [place] [address] 47422- 3472 14 Aug, 2017 Severe episode of recurrent major depressive disorder, without psychotic features F33.2 ; Anxiety, generalized F41.1 and Borderline personality disorder in adult F60.3 [facility] [id number] [place] [address] 58280- 7283 Aug, [facility] [id number] [place] [address] 84179- 6330 Aug, Closed nondisplaced fracture of second metatarsal bone of left foot, initial encounter S92.325A and Chronic pain syndrome G89.4 [facility] [id number] [place] [address] 67427- 0467 Aug, Type 2 diabetes mellitus with diabetic polyneuropathy E11.42 [facility] [id number] [place] [address] 63890- 8753 08 Aug, 2017 Severe episode of recurrent major depressive disorder, without psychotic features F33.2 ; Anxiety, generalized F41.1 and Borderline personality disorder in adult F60.3 [facility] [id number] [place] [address] 26354- 9347 Aug, [facility] [id number] [place] [address] 62061- 9742 Aug, [facility] [id number] [place] [address] 79841- 6215 Aug, [facility] [id number] [place] [address] 56958- 0546 Aug, [facility] [id number] [place] [address] 44852- 4246 Aug, [facility] [id number] [place] [address] 46658- 0740 Jul, [facility] [id number] [place] [address] 16264- 9238 Jul, [place] [id number] [place] [address] 96128- 3771 Jul, Severe episode of recurrent major depressive disorder, without psychotic features F33.2 ; Anxiety, generalized F41.1 and Borderline personality disorder in adult F60.3 [place] [id number] [place] [address] 30151- 4264 Jul, Type 2 diabetes mellitus with diabetic polyneuropathy E11.42 [place] [id number] [place] [address] 47020- 4813 Jul, Closed nondisplaced fracture of second metatarsal bone of left foot, initial encounter S92.325A and Closed nondisplaced fracture of third metatarsal bone of left foot, initial encounter S92.335A [place] [id number] [place] [address] 52445- 9507 Jul, [place] [id number] [place] [address] 74094- 6019 Jul, Closed nondisplaced fracture of second metatarsal bone of left foot, initial encounter S92.325A ; Acute left ankle pain M25.572 ; Acute midline low back pain without sciatica M54.5 and Seasonal allergic rhinitis, unspecified allergic rhinitis trigger J30.2 [place] [id number] [place] [address] 48005- 7137 Jul, [place] [id number] [place] [address] 92507- 1806 Jul, [place] [id number] [place] [address] 86481- 7536 Jul, [place] [id number] [place] [address] 63467- 5886 Jul, Frequent falls R29.6 [place] [id number] [place] [address] 24425- 8062 14 Jul, 2017 Frequent falls R29.6 [place] [address] [place] [address] 97489- 7680 07 Jul, 2017 Severe episode of recurrent major depressive disorder, without psychotic features F33.2 ; Anxiety, generalized F41.1 and Borderline personality disorder in adult F60.3 [place] [id number] [place] [address] 49383- 8343 Jul, Chronic pain syndrome G89.4 [place] [address] 05813- 6267 Jul, assisted current use of insulin Z79.4 [place] [address] 60448- 3994 Jul, [place] [address] 93183- 5204 Jul, Type 2 diabetes mellitus with diabetic polyneuropathy E11.42 [place] [address] 89291- 9534 Jun, long term current use of insulin Z79.4 and Thrush B37.0 [place] [address] 27739- 0959 Jun, Severe episode of recurrent major depressive disorder, without psychotic features F33.2 ; Anxiety, generalized F41.1 and Borderline personality disorder in adult F60.3 [place] [id number] [place] [address] 29504- 0169 Jun, Severe episode of recurrent major depressive disorder, without psychotic features F33.2 ; Anxiety, generalized F41.1 and Borderline personality disorder in adult F60.3 [place] [address] 82260- 0702 Jun, Frequent falls R29.6 ; Bronchitis J40 ; BMI 40.0-44.9, adult Z68.41 and Coccygeal pain, acute M53.3 [place] [address] 19299- 1748 Jun, [facility] [address], [place] [address] Jun, [facility] [id number] [place] [address] 42028- 4726 Jun, [facility] [address] [place] [address] 48825- 0284 Jun, Dental caries, unspecified K02.9 [facility] [id number] [place] [address] 05199- 6543 17 Jun, 2017 Acute non-recurrent maxillary sinusitis J01.00 and BMI 40.0- 44.9, adult Z68.41 [facility] [id number] [place] [address] 47615- 7386 17 Jun, 2017 [facility] [id number] [place] [address] 47256- 5278 Jun, Severe episode of recurrent major depressive disorder, without psychotic features F33.2 ; Anxiety, generalized F41.1 and Borderline personality disorder in adult F60.3 [facility] [address] [place] [address] 21833- 6384 11 Jun, 2017 Closed nondisplaced fracture of third metatarsal bone of left foot with routine healing, subsequent encounter S92.335D ; Closed nondisplaced fracture of second metatarsal bone of left foot with routine healing, subsequent encounter S92.325D and Closed nondisplaced fracture of fourth metatarsal bone of left foot with routine healing, subsequent encounter S92.345D [facility] [id number] [address]- 1896 Jun, Severe episode of recurrent major depressive disorder, without psychotic features F33.2 ; Anxiety, generalized F41.1 and Borderline personality disorder in adult F60.3 [facility] [address], [place] [address]- 2459 Jun, [facility] [id number] [place] [address] 12033- 9193 Jun, [facility] [address], [place] [address]- 4433 Jun, [facility] [id number] [place] [address] 56769- 9093 Jun, [facility] [id number] [place] [address] 96794- 0268 Jun, [facility] [id number] [place] [address] 05900- 2266 Jun, Anxiety F41.9 [place] [id number] [place] [address] 41426- 1052 Jun, [facility] [address] [place] [address] 47159- 7365 Jun, [facility] [address] [place] [address] 98260- 9894 Jun, Type 2 diabetes mellitus with diabetic autonomic (poly) neuropathy E11.43 [place] [address] [place] [address] 62155- 8231 Jun, Severe episode of recurrent major depressive disorder, without psychotic features F33.2 ; Anxiety, generalized F41.1 and Borderline personality disorder in adult F60.3 [place] [address], [place] [address]- 7150 Jun, Type 2 diabetes mellitus with diabetic autonomic (poly) neuropathy E11.43 and Chronic pain syndrome G89.4 [place] [address], [place] [address]- 8765 May, Recent urinary tract infection Z87.440 ; Deliberate self- cutting Z72.89 ; Chest discomfort R07.89 ; BMI 40.0-44.9, adult Z68.41 and Worried well Z71.1 [place] [address], [place] [address]- 1643 May, Severe episode of recurrent major depressive disorder, without psychotic features F33.2 ; Anxiety, generalized F41.1 and Borderline personality disorder in adult F60.3 [facility] [address], [place] [address]- 6992 18 May, 2017 [facility] [id number] [place] [address] 00630- 7050 May, [facility] [address] [place] [address] 66774- 8938 May, Severe episode of recurrent major depressive disorder, without psychotic features F33.2 ; Anxiety, generalized F41.1 and Borderline personality disorder in adult F60.3 [facility] [address] [place] [address] 68808- 6635 12 May, 2017 Type 2 diabetes mellitus with diabetic autonomic (poly) neuropathy E11.43 [place] [id number] [place] [address] 46499- 2444 07 May, 2017 [place] [id number] [place] [address] 45705- 7183 May, Type 2 diabetes mellitus with diabetic autonomic (poly) neuropathy E11.43 ; Multiple neurological symptoms R29.90 ; Dysuria R30.0 ; Tobacco abuse Z72.0 ; Right hip pain M25.551 ; Anxiety F41.9 ; Gastritis determined by endoscopy K29.70 ; Chronic pain syndrome G89.4 ; Acute non- recurrent maxillary sinusitis J01.00 ; Self mutilating behavior Z72.89 and BMI 40.0-44.9, adult Z68.41 [place] [address] [place] [address] 50993- 4433 05 May, 2017 Severe episode of recurrent major depressive disorder, without psychotic features F33.2 ; Anxiety, generalized F41.1 and Borderline personality disorder in adult F60.3 [place] [address] [place] [address] 06322- 7017 Apr, [facility] [address] [place] [address] 73009- 7486 Apr, [facility] [id number], [place] [address]107 Apr, [facility] [address] [place] [address] 16528 -9738 Apr, Aspiration pneumonia of right lower lobe, unspecified aspiration pneumonia type J69.0 [facility] [address] [place] [address] 24883- 2942 Apr, Severe episode of recurrent major depressive disorder, without psychotic features F33.2 ; Anxiety, generalized F41.1 and Borderline personality disorder in adult F60.3 [facility] [id number] [place] [address] 48990- 6947 Apr, [facility] [id number] [place] [address] 14850- 6761 Apr, Chronic pain syndrome G89.4 [facility] [id number] [place] [address] 65935- 5528 Apr, Severe episode of recurrent major depressive disorder, without psychotic features F33.2 ; Anxiety, generalized F41.1 and Borderline personality disorder in adult F60.3 [facility] [address] [place] [address] 80724- 0133 Apr, Severe episode of recurrent major depressive disorder, without psychotic features F33.2 ; Anxiety, generalized F41.1 and Borderline personality disorder in adult F60.3 [facility] [address] [place] [address] 97284- 5140 Apr, Closed nondisplaced fracture of third metatarsal bone of left foot with routine healing, subsequent encounter S92.335D ; Closed nondisplaced fracture of fourth metatarsal bone of left foot with routine healing, subsequent encounter S92.345D and Closed nondisplaced fracture of second metatarsal bone of left foot with routine healing, subsequent encounter S92.325D [facility] [address] [place] [address] 16319- 0090 Apr, [facility] [id number] [place] [address] 14779- 5978 Apr, [place] [address] [place] [address] 76587- 6739 14 Apr, 2017 [place] [id number] [place] [address] 96682- 5207 Apr, Screening breast examination Z12.31 [place] [id number] [place] [address] 13246- 7762 Apr, [place] [id number] [place] [address] 67531- 2394 Apr, Type 2 diabetes mellitus with diabetic autonomic (poly) neuropathy E11.43 [id number] [place] [address] 84357- 0561 Apr, Severe episode of recurrent major depressive disorder, without psychotic features F33.2 ; Anxiety, generalized F41.1 and Borderline personality disorder in adult F60.[address] 71692- 9850 Apr, Type 2 diabetes mellitus with diabetic autonomic (poly) neuropathy E11.43 ; Chronic pain syndrome G89.4 and Anxiety F41.9 [facility] WALK [address] [id number] [place] [address] 08485 -7714 Apr, BMI 45.0-49.9, adult Z68.42 [facility] WALK [address] [place] [id number] [place] [address] 13009 -3345 Apr, Avulsion of toenail, initial encounter S91.209A and Acute non-recurrent maxillary sinusitis J01.00 [place] [id number] [place] [address] 61862- 6044 Apr, [id number] [place] [address] 22892- 2182 Mar, [place] [id number] [place] [address] 44780- 8749 Mar, Severe episode of recurrent major depressive disorder, without psychotic features F33.2 ; Anxiety, generalized F41.1 and Borderline personality disorder in adult F60.3 [facility] [address] [address]- 5000 Mar, [facility] [id number] [place] [address] 32856- 8575 Mar, [facility] [address] [place] [address] 64585- 0991 Mar, [facility] [id number] [place] [address] 90105- 8994 Mar, Seizure disorder G40.909 [facility] [id number] [place] [address] 72096- 2066 Mar, [facility] [id number] [place] [address] 11396- 7340 Mar, [facility] [address] [place] [address] 66773 -8661 Mar, Left foot pain M79.672 ; Stage 3 chronic kidney disease N18.3 and Closed nondisplaced fracture of second metatarsal bone of left foot, initial encounter S92.325A [place] [address] [place] [address] 08904- 6426 Mar, Severe episode of recurrent major depressive disorder, without psychotic features F33.2 and Anxiety, generalized F41.1 [facility] [address] [place] [address] 60387- 8890 Mar, [facility] [address] [place] [address] 98753- 6610 Mar, Closed nondisplaced fracture of second metatarsal bone of left foot, initial encounter S92.325A and Closed nondisplaced fracture of third metatarsal bone of left foot, initial encounter S92.335A [facility] [address], [place] [address]- 0454 Mar, Seizure disorder G40.909 [facility] [id number] [address] Mar, [facility] [id number] [place] [address]209 Mar, [facility] [id number] [place] [address]- [address]78 Mar, [facility] [id number] [place] [address]- [address] Mar, [facility] [id number] [place] [address]- 4838 Mar, High risk sexual behavior Z72.51 [place] [id number] [place] [address]- [address]6 Mar, Severe episode of recurrent major depressive disorder, without psychotic features F33.2 and Anxiety, generalized F41.1 [place] [id number] [place] [address]- 2292 Mar, Anxiety F41.9 and Type 2 diabetes mellitus with diabetic autonomic (poly)neuropathy E11.43 [place] [id number] [place] [address] 00067- 7097 Mar, Anxiety F41.9 [place] [id number] [place] [address] 28616- 9210 Mar, High risk sexual behavior Z72.51 [place] [id number] [place] [address] 79122- 1789 Mar, Chronic pain syndrome G89.4 [place] [id number] [place] [address] 38760- 6452 Mar, Type 2 diabetes mellitus with diabetic autonomic (poly) neuropathy E11.43 [facility] [id number] [place] [address] 18014- 3628 Mar, [facility] [id number] [place] [address] 50048- 2378 Mar, Closed nondisplaced fracture of second metatarsal bone of left foot, initial encounter S92.325A ; Chronic pain syndrome G89.4 ; Closed nondisplaced fracture of third metatarsal bone of left foot, initial encounter S92.335A ; Acute left ankle pain M25.572 and Type 2 diabetes mellitus with diabetic autonomic (poly)neuropathy E11.43 [facility] [id number] [place] [address] 67445- 5187 Mar, [facility] [address] 72647- 7956 Mar, [facility] [address] 03964- 9524 Mar, Severe episode of recurrent major depressive disorder, without psychotic features F33.2 and Anxiety, generalized F41.1 [facility] [id number] [place] [address] 42878- 7556 Feb, [facility] [address] 82324- 7814 Feb, Renal insufficiency N28.9 [facility] [id number] [place] [address] 95380- 1506 Feb, [facility] [id number] [place] [address] 99233- 5190 Feb, Severe episode of recurrent major depressive disorder, without psychotic features F33.2 and Anxiety, generalized F41.1 [facility] [id number] [place] [address] 41916- 1972 Feb, [facility] [id number] [place] [address] 78674- 6657 Feb, [facility] [id number] [place] [address] 96492- 7753 Feb, Renal insufficiency N28.9 [facility] [id number] [place] [address] 68872- 6518 Feb, [facility] [address] 11943 -2317 18 Feb, 2017 [facility] [address] [address]- 1647 14 Feb, 2017 [facility] [id number] [place] [address] 78211- 3693 13 Feb, 2017 Severe episode of recurrent major depressive disorder, without psychotic features F33.2 and Anxiety, generalized F41.1 [facility] [address] [place] [address] 47032- 8008 13 Feb, 2017 Closed nondisplaced fracture of second metatarsal bone of left foot, initial encounter S92.325A ; Chronic pain syndrome G89.4 ; Closed nondisplaced fracture of third metatarsal bone of left foot, initial encounter S92.335A ; Left hip pain M25.552 and Stage 3 chronic kidney disease N18.3 [place] [id number] [place] [address] 89471- 2599 07 Feb, 2017 [facility] [id number] [place] [address] 67400- 7917 Feb, [facility] [id number] [place] [address] 38890- 0756 Feb, Closed nondisplaced fracture of second metatarsal bone of left foot, initial encounter S92.325A and Closed nondisplaced fracture of third metatarsal bone of left foot, initial encounter S92.335A [facility] [address] [address]- 2088 Feb, [facility] [id number] [address]- 2543 Feb, Anxiety F41.9 [facility] [id number] [place] [address] 65886- 9596 Feb, [facility] [id number] [place] [address] 49383- 6798 Feb, Chronic pain syndrome G89.4 [facility] [id number] [place] [address] 03520- 5283 Feb, Left foot pain M79.672 ; Closed nondisplaced fracture of second metatarsal bone of left foot, initial encounter S92.325A ; Closed nondisplaced fracture of third metatarsal bone of left foot, initial encounter S92.335A and Oral infection K12.2 [place] [address] [place] [address] 62548- 4452 Feb, [place] [id number] [place] [address] 78649- 4300 Jan, [place] [id number] [place] [address] 99584- 1481 Jan, Type 2 diabetes mellitus with diabetic autonomic (poly) neuropathy E11.43 and Congestive heart failure, unspecified congestive heart failure chronicity, unspecified congestive heart failure type I50.9 [place] [id number] [place] [address] 62129- 7012 Jan, Congestive heart failure, unspecified congestive heart failure chronicity, unspecified congestive heart failure type I50.9 and Stage 3 chronic kidney disease N18.3 [place] [id number] [place] [address] 70160- 9976 Jan, Stage 3 chronic kidney disease N18.3 ; Edema of both legs R60.0 ; Chronic congestive heart failure, unspecified congestive heart failure type I50.9 ; Acute low back pain without sciatica, unspecified back pain laterality M54.5 ; Chronic nausea R11.0 and Primary insomnia F51.01 [place] [id number] [place] [address] 91429- 0739 Jan, Severe episode of recurrent major depressive disorder, without psychotic features F33.2 and Anxiety, generalized F41.1 [place] [id number] [place] [address] 86017- 6428 Jan, [place] [id number] [place] [address] 90137- 9166 Jan, [place] [id number] [place] [address] 99144- 0951 Jan, [facility] [id number] [place] [address] 50847- 9142 Jan, [facility] [id number] [place] [address] 47136- 7918 Jan, Anxiety F41.9 and Severe episode of recurrent major depressive disorder, without psychotic features F33.2 [place] [id number] [place] [address] 96888- 5151 Jan, Type 2 diabetes mellitus with diabetic autonomic (poly) neuropathy E11.43 [place] [id number] [place] [address] 80430- 4892 Jan, Severe episode of recurrent major depressive disorder, without psychotic features F33.2 and Type 2 diabetes mellitus with diabetic autonomic (poly)neuropathy E11.43 [place] [id number] [place] [address] 01941- 4322 Jan, [place] [id number] [place] [address] 24372- 5222 Jan, [place] [id number] [place] [address] 67034- 5053 Jan, Stage 3 chronic kidney disease N18.3 ; Seizure disorder G40.909 ; Edema of both legs R60.0 and Blister (nonthermal), right foot, initial encounter S90.821A [place] [id number] [place] [address] 89212- 8918 Jan, Severe episode of recurrent major depressive disorder, without psychotic features F33.2 and Anxiety, generalized F41.1 [place] [id number] [place] [address] 50876- 5213 Jan, Severe episode of recurrent major depressive disorder, without psychotic features F33.2 and Anxiety, generalized F41.1 [place] [id number] [place] [address] 83742- 9412 Jan, [place] [address] [place] [address] 79118- 7628 Jan, Anxiety F41.9 and Primary insomnia F51.01 [place] [id number] [place] [address] 70367- 4579 Jan, Type 2 diabetes mellitus with diabetic autonomic (poly) neuropathy E11.43 ; assisted current use of insulin Z79.4 ; Stage 3 chronic kidney disease N18.3 ; Chronic pain syndrome G89.4 ; Swelling of mandible R22.0 and Seizure disorder G40.909 [place] [id number] [place] [address] 03382- 6704 Jan, [place] [id number] [place] [address] 69559- 6512 Jan, [place] [id number] [place] [address] 92030- 5862 Dec, Severe episode of recurrent major depressive disorder, without psychotic features F33.2 and Anxiety, generalized F41.1 [place] [id number] [place] [address] 92642-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
--- OUTSIDE RECORDS SUMMARY | 2017-12-04 20:25 | XMS REPORT ---
Author Author MIRZA MARTINO Organization [facility] Address [address] [place] [address] Care Team Providers Care Otr Owner Operator Name Role Phone HAIMLindsey MIRZA Unavailable PROBLEMS Type Condition ICD9-CM Code [id number] Code Onset Dates Condition Status SNOMED Code Problem Postural hypotension I95.1 Active 39267452 Problem Seizure disorder G40.909 Active 945280037 Problem Seasonal allergic rhinitis, unspecified allergic rhinitis trigger J30.2 Active 547575791 Problem Closed nondisplaced fracture of second metatarsal bone of left foot, initial encounter S92.325A Active 89942587 Problem Essential hypertension I10 Active 98045299 Problem Multiple neurological symptoms R29.90 Active 996549322 Problem Port catheter in place Z95.828 Active 190902242 Problem Stage 3 chronic kidney disease N18.3 Active 055459887 Problem Gastritis determined by endoscopy K29.70 Active 1510934 Problem Self-inflicted injury Z72.89 Active 913726321 Problem Borderline personality disorder in adult F60.3 Active 56514240 Problem Chronic congestive heart failure, unspecified congestive heart failure type I50.9 Active 76839438 Problem Chronic pain syndrome G89.4 Active 297573301 Problem Primary insomnia F51.01 Active 4802520 Problem Acquired hypothyroidism E03.9 Active 184174612 Problem Gastroparesis K31.84 Active 774827677 Problem Severe episode of recurrent major depressive disorder, without psychotic features F33.2 Active 09566396 Problem Anxiety, generalized F41.1 Active 79240202 Problem 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 Active 398816522 Problem Type 2 diabetes mellitus with diabetic polyneuropathy E11.42 Active 47892468 Problem Tobacco abuse Z72.0 Active 179285276 Problem Noncompliance with diabetes treatment Z91.19 Active [id number] ALLERGIES No Information ENCOUNTERS Encounter Location Date Diagnosis [facility] [address], [place] [address] October, [facility] [address], [place] [address] October, [facility] [id number] [place] [address] 923952- 2974 October, [facility] [address] [id number] Sep, [facility] [id number] [place] [address] 78112- 4756 Sep, [facility] [id number] [place] [address] 88514- 7407 Sep, [facility] [id number] [place] [address] 54183- 5045 Sep, Throat pain R07.0 ; BMI 40.0-44.9, adult Z68.41 and Chronic pain syndrome G89.4 [facility] [id number] [place] [address] 27722- 2963 Sep, [facility] [id number] [place] [address] 15571- 7923 Sep, [facility] [id number] [place] [address] 94945- 6324 Sep, [facility] [id number] [place] [address] 80788- 9015 Sep, Anxiety, generalized F41.1 [facility] [address], [place] [address] 62[address] Sep, [facility] [id number] [place] [address] 22913- 9865 Sep, Stage 3 chronic kidney disease N18.3 [facility] [address], [place] [address] 4[address] Sep, Stage 3 chronic kidney disease N18.3 and Chronic pain syndrome G89.4 [facility] [id number] [address] Sep, Severe episode of recurrent major depressive disorder, without psychotic features F33.2 ; Anxiety, generalized F41.1 and Borderline personality disorder in adult F60.3 [facility] [id number] [place] [address] 14101- 1921 Sep, Chronic pain syndrome G89.4 ; Anxiety, generalized F41.1 and BMI 45.0-49.9, adult Z68.42 [facility] [id number] [place] [address] 82754- 6622 Sep, [facility] [id number] [place] [address] 38143- 4062 Sep, [facility] [id number] [place] [address] 30107- 6647 Sep, Severe episode of recurrent major depressive disorder, without psychotic features F33.2 ; Anxiety, generalized F41.1 and Borderline personality disorder in adult F60.3 [facility] [id number] [place] [address] 41922- 1536 Sep, [facility] [id number] [place] [address] 08506 -5592 Aug, Dysuria R30.0 ; Type 2 diabetes mellitus with diabetic polyneuropathy E11.42 ; Oral abscess K12.2 and BMI 40.0-44.9, adult Z68.41 [facility] [id number] [place] [address] 34721- 5058 30 Aug, 2017 [facility] [id number] [place] [address] 35907- 2882 Aug, [facility] [id number] [place] [address] 17987- 6340 Aug, [facility] [id number] [place] [address] 15832- 8364 Aug, [facility] [id number] [place] [address] 77987- 3645 27 Aug, 2017 Severe episode of recurrent major depressive disorder, without psychotic features F33.2 ; Anxiety, generalized F41.1 and Borderline personality disorder in adult F60.3 [facility] [id number] [place] [address] 21317- 5215 22 Aug, 2017 [facility] [id number] [place] [address] 40110- 0450 20 Aug, 2017 [facility] [id number] [place] [address] 16083- 9636 19 Aug, 2017 Severe episode of recurrent major depressive disorder, without psychotic features F33.2 ; Anxiety, generalized F41.1 and Borderline personality disorder in adult F60.3 [facility] [id number] [place] [address] 97371 -8090 17 Aug, 2017 [facility] [id number] [place] [address] 88803- 9966 15 Aug, 2017 [facility] [id number] [place] [address] 28587- 3949 14 Aug, 2017 [facility] [id number] [place] [address] 70100 -0538 14 Aug, 2017 Dysuria R30.0 ; Dental infection K04.7 ; Acute cystitis with hematuria N30.01 and BMI 45.0-49.9, adult Z68.42 [facility] [id number] [place] [address] 98207- 2637 14 Aug, 2017 Severe episode of recurrent major depressive disorder, without psychotic features F33.2 ; Anxiety, generalized F41.1 and Borderline personality disorder in adult F60.3 [facility] [id number] [place] [address] 56568- 2707 09 Aug, 2017 [place] [id number] [place] [address] 88611- 2428 08 Aug, 2017 Closed nondisplaced fracture of second metatarsal bone of left foot, initial encounter S92.325A and Chronic pain syndrome G89.4 [facility] [facility] [address], [place] [address] 09[address] 08 Aug, 2017 Type 2 diabetes mellitus with diabetic polyneuropathy E11.42 [facility] [address], [place] [address] 30[address] 08 Aug, 2017 Severe episode of recurrent major depressive disorder, without psychotic features F33.2 ; Anxiety, generalized F41.1 and Borderline personality disorder in adult F60.3 [facility] [address], [place] [address]- 9956 07 Aug, 2017 [facility] [address], [place] [address] 1176 Aug, [facility] [address], [place] [address] 4961 Aug, [facility] [address], [place] [address]- 1035 Aug, [facility] [address], [place] [address]- 2705 Aug, [facility] [address], [place] [address]- 2181 Jul, [facility] [address], [place] [address] 5[address] Jul, [facility] [id number], [place] [address]- 9[address] Jul, Severe episode of recurrent major depressive disorder, without psychotic features F33.2 ; Anxiety, generalized F41.1 and Borderline personality disorder in adult F60.3 [facility] [id number], [place] [address] 0487 Jul, Type 2 diabetes mellitus with diabetic polyneuropathy E11.42 [facility] [address], [place] [address] 2603 Jul, Closed nondisplaced fracture of second metatarsal bone of left foot, initial encounter S92.325A and Closed nondisplaced fracture of third metatarsal bone of left foot, initial encounter S92.335A [facility] [id number] [place] [address] 55590- 0101 Jul, [facility] [id number] [place] [address] 33315- 5870 20 Jul, 2017 Closed nondisplaced fracture of second metatarsal bone of left foot, initial encounter S92.325A ; Acute left ankle pain M25.572 ; Acute midline low back pain without sciatica M54.5 and Seasonal allergic rhinitis, unspecified allergic rhinitis trigger J30.2 [place] [facility] [id number] [place] [address] 69414- 6143 Jul, [facility] [id number] [place] [address] 24451- 4055 19 Jul, 2017 [place] [id number] [place] [address] 49641- 3048 15 Jul, 2017 [place] [id number] [place] [address] 06151- 3982 15 Jul, 2017 Frequent falls R29.6 [facility] [id number] [place] [address] 15892- 0537 14 Jul, 2017 Frequent falls R29.6 [facility] [id number] [place] [address] 26195- 5843 07 Jul, 2017 Severe episode of recurrent major depressive disorder, without psychotic features F33.2 ; Anxiety, generalized F41.1 and Borderline personality disorder in adult F60.3 [place] [address] [place] [address] 41159- 9198 07 Jul, 2017 Chronic pain syndrome G89.4 [facility] [facility] [id number] [place] [address] 32338- 1081 07 Jul, 2017 [facility] current use of insulin Z79.4 [place] [id number] [place] [address] 32640- 9721 Jul, [place] [id number] [place] [address] 79285- 6624 Jul, Type 2 diabetes mellitus with diabetic polyneuropathy E11.42 [facility] [id number] [place] [address] 55045- 6074 Jun, 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 and Thrush B37.0 [place] [address] 50722- 5322 Jun, Severe episode of recurrent major depressive disorder, without psychotic features F33.2 ; Anxiety, generalized F41.1 and Borderline personality disorder in adult F60.3 [place] [address] 89850- 5602 Jun, Severe episode of recurrent major depressive disorder, without psychotic features F33.2 ; Anxiety, generalized F41.1 and Borderline personality disorder in adult F60.3 [place] [address] 80164- 5039 Jun, Frequent falls R29.6 ; Bronchitis J40 ; BMI 40.0-44.9, adult Z68.41 and Coccygeal pain, acute M53.3 [place] [id number] [place] [address] 93708- 2328 Jun, [facility] [id number] [place] [address] 31073 -0333 Jun, [facility] [address] 38984- 6235 Jun, [place] [id number] [place] [address] 47733- 6040 Jun, Dental caries, unspecified K02.9 [facility] [id number] [place] [address] 84282- 5829 Jun, Acute non-recurrent maxillary sinusitis J01.00 and BMI 40.0- 44.9, adult Z68.41 [place] [address], [place] [address]- 0874 Jun, [facility] [id number] [place] [address] 90766- 2155 Jun, Severe episode of recurrent major depressive disorder, without psychotic features F33.2 ; Anxiety, generalized F41.1 and Borderline personality disorder in adult F60.3 [facility] [address] [place] [address] 49096- 2487 Jun, Closed nondisplaced fracture of third metatarsal bone of left foot with routine healing, subsequent encounter S92.335D ; Closed nondisplaced fracture of second metatarsal bone of left foot with routine healing, subsequent encounter S92.325D and Closed nondisplaced fracture of fourth metatarsal bone of left foot with routine healing, subsequent encounter S92.345D [facility] [address], [place] [address]- 6154 11 Jun, 2017 Severe episode of recurrent major depressive disorder, without psychotic features F33.2 ; Anxiety, generalized F41.1 and Borderline personality disorder in adult F60.3 [facility] [address], [place] [address]- 0868 Jun, [facility] [id number] [place] [address] 19791- 1973 Jun, [facility] [address], [place] [address]- 9285 Jun, [facility] [id number] [place] [address] 93982- 7531 Jun, [facility] [address], [place] [address]- 9439 Jun, [facility] [id number] [place] [address] 38845- 5676 Jun, Anxiety F41.9 [facility] [address], [place] [address]- 5306 Jun, [facility] [address] [place] [address] 87139- 7387 Jun, [place] [id number] [place] [address] 36248- 0915 Jun, Type 2 diabetes mellitus with diabetic autonomic (poly) neuropathy E11.43 [place] [id number] [place] [address] 89405- 4180 Jun, Severe episode of recurrent major depressive disorder, without psychotic features F33.2 ; Anxiety, generalized F41.1 and Borderline personality disorder in adult F60.3 [place] [id number] [place] [address] 99784- 7642 Jun, Type 2 diabetes mellitus with diabetic autonomic (poly) neuropathy E11.43 and Chronic pain syndrome G89.4 [place] [id number] [place] [address] 40255- 2987 20 May, 2017 Recent urinary tract infection Z87.440 ; Deliberate self- cutting Z72.89 ; Chest discomfort R07.89 ; BMI 40.0-44.9, adult Z68.41 and Worried well Z71.1 [place] [id number] [place] [address] 04548- 6811 19 May, 2017 Severe episode of recurrent major depressive disorder, without psychotic features F33.2 ; Anxiety, generalized F41.1 and Borderline personality disorder in adult F60.3 [place] [address] [place] [address] 39595- 9823 18 May, 2017 [place] [id number] [place] [address] 87874- 6839 May, [place] [id number] [place] [address] 95097- 5747 May, Type 2 diabetes mellitus with diabetic autonomic (poly) neuropathy E11.43 [place] [address] [place] [address] 55237- 5294 May, Severe episode of recurrent major depressive disorder, without psychotic features F33.2 ; Anxiety, generalized F41.1 and Borderline personality disorder in adult F60.3 [facility] [id number] [place] [address] 94172- 2489 May, [place] [id number] [place] [address] 73181- 4520 May, Type 2 diabetes mellitus with diabetic autonomic (poly) neuropathy E11.43 ; Multiple neurological symptoms R29.90 ; Dysuria R30.0 ; Tobacco abuse Z72.0 ; Right hip pain M25.551 ; Anxiety F41.9 ; Gastritis determined by endoscopy K29.70 ; Chronic pain syndrome G89.4 ; Acute non- recurrent maxillary sinusitis J01.00 ; Self mutilating behavior Z72.89 and BMI 40.0-44.9, adult Z68.41 [place] [id number] [place] [address] 63767- 1416 May, Severe episode of recurrent major depressive disorder, without psychotic features F33.2 ; Anxiety, generalized F41.1 and Borderline personality disorder in adult F60.3 [place] [id number] [place] [address] 04794- 3065 Apr, [place] [address] 87898- 4044 Apr, [facility] [id number] [place] [address] 37434 -6169 Apr, [facility] [id number] [place] [address] 77962 -6362 Apr, Aspiration pneumonia of right lower lobe, unspecified aspiration pneumonia type J69.0 [place] [id number] [place] [address] 20253- 0730 Apr, Severe episode of recurrent major depressive disorder, without psychotic features F33.2 ; Anxiety, generalized F41.1 and Borderline personality disorder in adult F60.3 [place] [id number] [place] [address] 23425- 2369 Apr, [place] [address] [place] [address]- 1622 Apr, Chronic pain syndrome G89.4 [place] [address] 66974- 6370 Apr, Severe episode of recurrent major depressive disorder, without psychotic features F33.2 ; Anxiety, generalized F41.1 and Borderline personality disorder in adult F60.3 [place] [address] 45365- 0509 16 Apr, 2017 Severe episode of recurrent major depressive disorder, without psychotic features F33.2 ; Anxiety, generalized F41.1 and Borderline personality disorder in adult F60.3 [place] [address] 78291- 1173 16 Apr, 2017 Closed nondisplaced fracture of third metatarsal bone of left foot with routine healing, subsequent encounter S92.335D ; Closed nondisplaced fracture of fourth metatarsal bone of left foot with routine healing, subsequent encounter S92.345D and Closed nondisplaced fracture of second metatarsal bone of left foot with routine healing, subsequent encounter S92.325D [place] [id number] [place] [address] 94229- 8921 16 Apr, 2017 [place] [address] 56506- 8661 15 Apr, 2017 [place] [id number] [place] [address] 05346- 3256 14 Apr, 2017 [place] [address] 87313- 9956 13 Apr, 2017 Screening breast examination Z12.31 [place] [address] 24382- 9563 09 Apr, 2017 [place] [address] 74301- 6772 07 Apr, 2017 Type 2 diabetes mellitus with diabetic autonomic (poly) neuropathy E11.43 [place] [address] 20536- 8140 Apr, Severe episode of recurrent major depressive disorder, without psychotic features F33.2 ; Anxiety, generalized F41.1 and Borderline personality disorder in adult F60.3 [place] [address] 33464- 4362 Apr, Type 2 diabetes mellitus with diabetic autonomic (poly) neuropathy E11.43 ; Chronic pain syndrome G89.4 and Anxiety F41.9 [facility] [address] 66568 -7042 Apr, BMI 45.0-49.9, adult Z68.42 [facility] [address] 36867 -6719 Apr, Avulsion of toenail, initial encounter S91.209A and Acute non-recurrent maxillary sinusitis J01.00 [place] [address] 64018- 0029 Apr, [place] [address] 75979- 6547 Mar, [place] [address] 99341- 2866 Mar, Severe episode of recurrent major depressive disorder, without psychotic features F33.2 ; Anxiety, generalized F41.1 and Borderline personality disorder in adult F60.3 [place] [address] 57230- 5387 Mar, [place] [address] 99239- 1929 Mar, [place] [address] 54208- 5914 Mar, [place] [address] 39587- 6194 Mar, Seizure disorder G40.909 [place] [address] 05811- 2928 Mar, [facility] [address] [place] [address] 51720- 6319 Mar, [facility] [id number] [place] [address] 27294 -2506 Mar, Left foot pain M79.672 ; Stage 3 chronic kidney disease N18.3 and Closed nondisplaced fracture of second metatarsal bone of left foot, initial encounter S92.325A [facility] [id number] [place] [address] 56627- 8896 Mar, Severe episode of recurrent major depressive disorder, without psychotic features F33.2 and Anxiety, generalized F41.1 [place] [id number] [place] [address] 06868- 5774 Mar, [facility] [id number] [place] [address] 30768- 8623 Mar, Closed nondisplaced fracture of second metatarsal bone of left foot, initial encounter S92.325A and Closed nondisplaced fracture of third metatarsal bone of left foot, initial encounter S92.335A [place] [id number] [place] [address] 08904- 2931 Mar, Seizure disorder G40.909 [facility] [id number] [place] [address] 84349- 9829 Mar, [facility] [id number] [place] [address] 03882- 7303 Mar, [facility] [id number] [place] [address] 15431- 0639 Mar, [facility] [id number] [place] [address] 55635- 0927 Mar, [facility] [id number] [place] [address] 15438- 0994 Mar, High risk sexual behavior Z72.51 [facility] [id number] [place] [address] 05218- 2855 Mar, Severe episode of recurrent major depressive disorder, without psychotic features F33.2 and Anxiety, generalized F41.1 [place] [id number] [place] [address] 70828- 3871 Mar, Anxiety F41.9 and Type 2 diabetes mellitus with diabetic autonomic (poly)neuropathy E11.43 [place] [id number] [place] [address] 85481- 8212 Mar, Anxiety F41.9 [place] [id number] [place] [address] 00981- 6196 Mar, High risk sexual behavior Z72.51 [place] [id number] [place] [address] 38941- 1751 Mar, Chronic pain syndrome G89.4 [place] [id number] [place] [address] 16571- 9750 Mar, Type 2 diabetes mellitus with diabetic autonomic (poly) neuropathy E11.43 [place] [id number] [place] [address] 41477- 0550 Mar, [place] [id number] [place] [address] 54130- 1375 Mar, Closed nondisplaced fracture of second metatarsal bone of left foot, initial encounter S92.325A ; Chronic pain syndrome G89.4 ; Closed nondisplaced fracture of third metatarsal bone of left foot, initial encounter S92.335A ; Acute left ankle pain M25.572 and Type 2 diabetes mellitus with diabetic autonomic (poly)neuropathy E11.43 [place] [id number] [place] [address] 04976- 8003 Mar, [place] [address] [place] [id number] [place] [address] 35182- 8641 Mar, [place] [id number] [place] [address] 95946- 5905 Mar, Severe episode of recurrent major depressive disorder, without psychotic features F33.2 and Anxiety, generalized F41.1 [facility] [id number] [place] [address] 91762- 7671 27 Feb, 2017 [facility] [address] [place] [id number] [place] [address] 02198- 0457 26 Feb, 2017 Renal insufficiency N28.9 [facility] [address] [id number] [place] [address] 63412- 7942 26 Feb, 2017 [facility] [address] [place] [id number] [place] [address] 46975- 8788 26 Feb, 2017 Severe episode of recurrent major depressive disorder, without psychotic features F33.2 and Anxiety, generalized F41.1 [facility] [address] [place] [id number] [place] [address] 24771- 1330 25 Feb, 2017 [facility] [address] [place] [id number] [place] [address] 34351- 4225 22 Feb, 2017 [facility] [id number] [place] [address] 17264- 0781 20 Feb, 2017 Renal insufficiency N28.9 [facility] [address] [place] [id number] [place] [address] 21115- 3081 19 Feb, 2017 [facility] [id number] [place] [address] 95608 -0283 18 Feb, 2017 [facility] [address] [place] [id number] [place] [address] 92247- 5130 14 Feb, 2017 [facility] [id number] [place] [address] 69532- 2053 13 Feb, 2017 Severe episode of recurrent major depressive disorder, without psychotic features F33.2 and Anxiety, generalized F41.1 [facility] [id number] [place] [address] 76443- 9944 13 Feb, 2017 Closed nondisplaced fracture of second metatarsal bone of left foot, initial encounter S92.325A ; Chronic pain syndrome G89.4 ; Closed nondisplaced fracture of third metatarsal bone of left foot, initial encounter S92.335A ; Left hip pain M25.552 and Stage 3 chronic kidney disease N18.3 [facility] [address] [place] [id number] [place] [address] 97634- 2591 Feb, [facility] [id number] [place] [address] 46534- 6265 Feb, [facility] [address] [place] [id number] [place] [address] 79036- 0321 Feb, Closed nondisplaced fracture of second metatarsal bone of left foot, initial encounter S92.325A and Closed nondisplaced fracture of third metatarsal bone of left foot, initial encounter S92.335A [facility] [address] [place] [id number] [place] [address] 06264- 8323 Feb, [facility] [address] [id number] [place] [address] 13089- 1123 Feb, Anxiety F41.9 [facility] [address] [id number] [place] [address] 71959- 4680 Feb, [facility] [address] [id number] [place] [address] 46035- 2117 Feb, Chronic pain syndrome G89.4 [facility] [id number] [place] [address] 78167- 2684 Feb, Left foot pain M79.672 ; Closed nondisplaced fracture of second metatarsal bone of left foot, initial encounter S92.325A ; Closed nondisplaced fracture of third metatarsal bone of left foot, initial encounter S92.335A and Oral infection K12.2 [facility] [address] [place] [id number] [place] [address] 60144- 3423 Feb, [facility] [id number] [place] [address] 90028- 6706 Jan, [facility] [id number] [place] [address] 21900- 0845 Jan, Type 2 diabetes mellitus with diabetic autonomic (poly) neuropathy E11.43 and Congestive heart failure, unspecified congestive heart failure chronicity, unspecified congestive heart failure type I50.9 [place] [address] [place] [id number] [place] [address] 42743- 9808 Jan, Congestive heart failure, unspecified congestive heart failure chronicity, unspecified congestive heart failure type I50.9 and Stage 3 chronic kidney disease N18.3 [place] [address] 95326- 0510 Jan, Stage 3 chronic kidney disease N18.3 ; Edema of both legs R60.0 ; Chronic congestive heart failure, unspecified congestive heart failure type I50.9 ; Acute low back pain without sciatica, unspecified back pain laterality M54.5 ; Chronic nausea R11.0 and Primary insomnia F51.01 [place] [address] [place] [id number] [place] [address] 04174- 3771 Jan, Severe episode of recurrent major depressive disorder, without psychotic features F33.2 and Anxiety, generalized F41.1 [place] [address] [place] [id number] [place] [address] 55887- 6419 Jan, [place] [address] [place] [id number] [place] [address] 04399- 0589 Jan, [place] [address] [place] [id number] [place] [address] 37185- 0547 Jan, [place] [address] [place] [id number] [place] [address] 05828- 1689 Jan, [place] [address] [place] [id number] [place] [address] 75095- 7961 Jan, Anxiety F41.9 and Severe episode of recurrent major depressive disorder, without psychotic features F33.2 [place] [address] [place] [id number] [place] [address] 27197- 1928 Jan, Type 2 diabetes mellitus with diabetic autonomic (poly) neuropathy E11.43 [place] [address] [place] [id number] [place] [address] 16691- 5786 Jan, Severe episode of recurrent major depressive disorder, without psychotic features F33.2 and Type 2 diabetes mellitus with diabetic autonomic (poly)neuropathy E11.43 [place] [address] [place] [id number] [place] [address] 44554- 4202 Jan, [place] [address] [place] [id number] [place] [address] 86640- 5218 Jan, [place] [address] 20589- 7609 Jan, Stage 3 chronic kidney disease N18.3 ; Seizure disorder G40.909 ; Edema of both legs R60.0 and Blister (nonthermal), right foot, initial encounter S90.821A [place] [address] [place] [id number] [place] [address] 66575- 6427 Jan, Severe episode of recurrent major depressive disorder, without psychotic features F33.2 and Anxiety, generalized F41.1 [place] [address] 20666- 5367 Jan, Severe episode of recurrent major depressive disorder, without psychotic features F33.2 and Anxiety, generalized F41.1 [place] [address] [place] [id number] [place] [address] 71335- 0218 Jan, [place] [address] [place] [id number] [place] [address] 11617- 0328 Jan, Anxiety F41.9 and Primary insomnia F51.01 [place] [address] [place] [id number] [place] [address] 41936- 5090 Jan, Type 2 diabetes mellitus with diabetic autonomic (poly) neuropathy E11.43 ; [facility] current use of insulin Z79.4 ; Stage 3 chronic kidney disease N18.3 ; Chronic pain syndrome G89.4 ; Swelling of mandible R22.0 and Seizure disorder G40.909 [place] [address] [place] [id number] [place] [address] 83795- 0598 Jan, [place] [address] [place] [address] [place] [address]- 9772 Jan, [place] [address] [place] [id number] [place] [address] 71262- 7510 Dec, Severe episode of recurrent major depressive disorder, without psychotic features F33.2 and Anxiety,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
--- OUTSIDE RECORDS SUMMARY | 2017-12-04 20:26 | XMS REPORT ---
Author Author MIRZA MARTINO Organization [facility] Address [address] [place] [address] Care Team Providers Care Sheet Fed Printer Name Role Phone HAIMLindsey MIRZA Unavailable PROBLEMS Type Condition ICD9-CM Code WLD25-ST Code Onset Dates Condition Status SNOMED Code Problem Postural hypotension I95.1 Active 36708430 Problem Seizure disorder G40.909 Active 951001131 Problem Seasonal allergic rhinitis, unspecified allergic rhinitis trigger J30.2 Active 482009191 Problem Closed nondisplaced fracture of second metatarsal bone of left foot, initial encounter S92.325A Active 67051734 Problem Essential hypertension I10 Active 53120040 Problem Multiple neurological symptoms R29.90 Active 134666564 Problem Port catheter in place Z95.828 Active 088731142 Problem Stage 3 chronic kidney disease N18.3 Active 924178161 Problem Gastritis determined by endoscopy K29.70 Active 8252730 Problem Self-inflicted injury Z72.89 Active 236485939 Problem Borderline personality disorder in adult F60.3 Active 61938739 Problem Chronic congestive heart failure, unspecified congestive heart failure type I50.9 Active 25687501 Problem Chronic pain syndrome G89.4 Active 921225320 Problem Primary insomnia F51.01 Active 5293433 Problem Acquired hypothyroidism E03.9 Active 856842557 Problem Gastroparesis K31.84 Active 054735398 Problem Severe episode of recurrent major depressive disorder, without psychotic features F33.2 Active 66244373 Problem Anxiety, generalized F41.1 Active 56827517 Problem 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 Active 717348975 Problem Type 2 diabetes mellitus with diabetic polyneuropathy E11.42 Active 93845097 Problem Tobacco abuse Z72.0 Active 964560677 Problem Noncompliance with diabetes treatment Z91.19 Active 2746381 ALLERGIES No Information ENCOUNTERS Encounter Location Date Diagnosis [facility] [address] [address] October, [facility] [address], [place] [address] October, [facility] [id number] [place] [address] 788047- 2589 October, [facility] [address], [place] [address] October, [facility] [id number] [place] [id number] Sep, [facility] [id number] [place] [address] 49875- 2072 Sep, Severe episode of recurrent major depressive disorder, without psychotic features F33.2 ; Anxiety, generalized F41.1 and Borderline personality disorder in adult F60.3 [facility] [id number] [place] [address] 81244- 0987 Sep, [facility] [id number] [place] [address] 34101- 6080 Sep, Throat pain R07.0 ; BMI 40.0-44.9, adult Z68.41 and Chronic pain syndrome G89.4 [facility] [id number] [place] [address] 31115- 6025 Sep, [facility] [id number] [place] [address] 63532- 9460 Sep, [facility] [id number] [place] [address] 60812- 8866 Sep, [facility] [id number] [place] [address] 58188- 3193 Sep, Anxiety, generalized F41.1 [facility] [id number] [place] [address] 10941- 8735 Sep, [facility] [address] [address] Sep, Stage 3 chronic kidney disease N18.3 [facility] [id number] [place] [address] 73394- 5508 Sep, Stage 3 chronic kidney disease N18.3 and Chronic pain syndrome G89.4 [facility] [id number] [place] [address] 57269- 7247 Sep, Severe episode of recurrent major depressive disorder, without psychotic features F33.2 ; Anxiety, generalized F41.1 and Borderline personality disorder in adult F60.3 [facility] [id number] [place] [address] 54170- 9638 04 Sep, 2017 Chronic pain syndrome G89.4 ; Anxiety, generalized F41.1 and BMI 45.0-49.9, adult Z68.42 [facility] [id number] [place] [address] 73108- 9362 Sep, [place] [id number] [place] [address] 57646- 1468 Sep, [facility] [id number] [place] [address] 92871- 4922 Sep, Severe episode of recurrent major depressive disorder, without psychotic features F33.2 ; Anxiety, generalized F41.1 and Borderline personality disorder in adult F60.3 [facility] [id number] [place] [address] 96797- 9349 Sep, [facility] [id number] [place] [address] 27667 -1954 Aug, Dysuria R30.0 ; Type 2 diabetes mellitus with diabetic polyneuropathy E11.42 ; Oral abscess K12.2 and BMI 40.0-44.9, adult Z68.41 [facility] [id number] [place] [address] 52212- 0950 30 Aug, 2017 [facility] [id number] [place] [address] 36732- 3734 Aug, [facility] [id number] [place] [address] 81573- 8948 Aug, 2017 [facility] [address], [place] [address] 9945 27 Aug, 2017 [facility] [id number] [place] [address] 22965- 9576 27 Aug, 2017 Severe episode of recurrent major depressive disorder, without psychotic features F33.2 ; Anxiety, generalized F41.1 and Borderline personality disorder in adult F60.3 [facility] [id number] [place] [address] 77182- 7947 22 Aug, 2017 [facility] [id number] [place] [address] 79978- 6685 20 Aug, 2017 [facility] [id number] [place] [address] 67781- 0366 19 Aug, 2017 Severe episode of recurrent major depressive disorder, without psychotic features F33.2 ; Anxiety, generalized F41.1 and Borderline personality disorder in adult F60.3 [facility] [id number] [place] [address] 87278 -4483 17 Aug, 2017 [facility] [id number] [place] [address] 56819- 8333 15 Aug, 2017 [facility] [id number] [place] [address] 33591- 5581 14 Aug, 2017 [facility] [address], [place] [address] 14 Aug, 2017 Dysuria R30.0 ; Dental infection K04.7 ; Acute cystitis with hematuria N30.01 and BMI 45.0-49.9, adult Z68.42 [facility] [address], [place] [address] 14 Aug, 2017 Severe episode of recurrent major depressive disorder, without psychotic features F33.2 ; Anxiety, generalized F41.1 and Borderline personality disorder in adult F60.3 [facility] [id number] [place] [address] 09601- 1086 09 Aug, 2017 [facility] [address], [place] [address] Aug, Closed nondisplaced fracture of second metatarsal bone of left foot, initial encounter S92.325A and Chronic pain syndrome G89.4 [facility] [address], [place] [address] 3146 08 Aug, 2017 Type 2 diabetes mellitus with diabetic polyneuropathy E11.42 [facility] [id number] [address] 2546 Aug, Severe episode of recurrent major depressive disorder, without psychotic features F33.2 ; Anxiety, generalized F41.1 and Borderline personality disorder in adult F60.3 [facility] [address], [place] [address] 7366 Aug, [facility] [address], [place] [address]- 9866 Aug, [facility] [address], [place] [address] 3117 Aug, [facility] [address], [place] [address] 4817 Aug, [facility] [address], [place] [address]- 9311 Aug, [facility] [address], [place] [address]- 4944 Jul, [facility] [address], [place] [address]- 7926 Jul, [facility] [id number], [place] [address]- 1369 Jul, Severe episode of recurrent major depressive disorder, without psychotic features F33.2 ; Anxiety, generalized F41.1 and Borderline personality disorder in adult F60.3 [facility] [address], [place] [address] 98[address] Jul, Type 2 diabetes mellitus with diabetic polyneuropathy E11.42 [facility] [id number] [place] [address] 95968- 2300 22 Jul, 2017 Closed nondisplaced fracture of second metatarsal bone of left foot, initial encounter S92.325A and Closed nondisplaced fracture of third metatarsal bone of left foot, initial encounter S92.335A [facility] [facility] [id number] [place] [address] 95193- 3000 Jul, [facility] [id number] [place] [address] 94078- 7072 20 Jul, 2017 Closed nondisplaced fracture of second metatarsal bone of left foot, initial encounter S92.325A ; Acute left ankle pain M25.572 ; Acute midline low back pain without sciatica M54.5 and Seasonal allergic rhinitis, unspecified allergic rhinitis trigger J30.2 [place] [facility] [id number] [place] [address] 49605- 3569 Jul, [place] [id number] [place] [address] 94034- 1604 Jul, [place] [facility] [id number] [place] [address] 47421- 3208 15 Jul, 2017 [place] [id number] [place] [address] 37611- 4060 15 Jul, 2017 Frequent falls R29.6 [place] [id number] [place] [address] 85062- 3423 14 Jul, 2017 Frequent falls R29.6 [place] [id number] [place] [address] 21707- 9927 07 Jul, 2017 Severe episode of recurrent major depressive disorder, without psychotic features F33.2 ; Anxiety, generalized F41.1 and Borderline personality disorder in adult F60.3 [place] [id number] [place] [address] 39114- 4845 07 Jul, 2017 Chronic pain syndrome G89.4 [place] [id number] [place] [address] 45334- 2138 Jul, jail current use of insulin Z79.4 [place] [id number] [place] [address] 65013- 7367 Jul, [place] [facility] [id number] [place] [address] 94912- 7076 Jul, Type 2 diabetes mellitus with diabetic polyneuropathy E11.42 [place] [id number] [place] [address] 89898- 4445 Jun, jail current use of insulin Z79.4 and Thrush B37.0 [place] [address] 08714- 0630 Jun, Severe episode of recurrent major depressive disorder, without psychotic features F33.2 ; Anxiety, generalized F41.1 and Borderline personality disorder in adult F60.3 [place] [facility] [address] 68345- 8174 Jun, Severe episode of recurrent major depressive disorder, without psychotic features F33.2 ; Anxiety, generalized F41.1 and Borderline personality disorder in adult F60.3 [place] [id number] [place] [address] 84590- 9621 Jun, Frequent falls R29.6 ; Bronchitis J40 ; BMI 40.0-44.9, adult Z68.41 and Coccygeal pain, acute M53.3 [place] [id number] [place] [address] 36764- 4111 Jun, [facility] [id number] [place] [address] 93883 -2661 Jun, [place] [id number] [place] [address] 18111- 5576 Jun, [place] [id number] [place] [address] 44899- 3011 Jun, Dental caries, unspecified K02.9 [facility] [address], [place] [address]- 0814 Jun, Acute non-recurrent maxillary sinusitis J01.00 and BMI 40.0- 44.9, adult Z68.41 [facility] [id number] [address]- 7674 Jun, [facility] [id number] [place] [address] 45936- 4130 Jun, Severe episode of recurrent major depressive disorder, without psychotic features F33.2 ; Anxiety, generalized F41.1 and Borderline personality disorder in adult F60.3 [facility] [id number] [place] [address] 32536- 4627 Jun, Closed nondisplaced fracture of third metatarsal bone of left foot with routine healing, subsequent encounter S92.335D ; Closed nondisplaced fracture of second metatarsal bone of left foot with routine healing, subsequent encounter S92.325D and Closed nondisplaced fracture of fourth metatarsal bone of left foot with routine healing, subsequent encounter S92.345D [facility] [id number] [place] [address] 49133- 3577 Jun, Severe episode of recurrent major depressive disorder, without psychotic features F33.2 ; Anxiety, generalized F41.1 and Borderline personality disorder in adult F60.3 [facility] [address], [place] [address]- 7083 Jun, [facility] [id number] [place] [address] 18118- 2994 Jun, [facility] [address], [place] [address]- 5414 Jun, [facility] [id number] [place] [address] 84645- 6560 Jun, [facility] [address], [place] [address]- 5694 Jun, [facility] [id number] [place] [address]- 6417 Jun, Anxiety F41.9 [facility] [id number] [place] [address] 76469- 4416 Jun, [facility] [id number] [place] [address] 16307- 6998 Jun, [facility] [id number] [place] [address] 37047- 8749 Jun, Type 2 diabetes mellitus with diabetic autonomic (poly) neuropathy E11.43 [place] [id number] [place] [address] 11567- 1831 Jun, Severe episode of recurrent major depressive disorder, without psychotic features F33.2 ; Anxiety, generalized F41.1 and Borderline personality disorder in adult F60.3 [place] [id number] [place] [address] 92465- 3713 Jun, Type 2 diabetes mellitus with diabetic autonomic (poly) neuropathy E11.43 and Chronic pain syndrome G89.4 [place] [id number] [place] [address] 35277- 4031 May, Recent urinary tract infection Z87.440 ; Deliberate self- cutting Z72.89 ; Chest discomfort R07.89 ; BMI 40.0-44.9, adult Z68.41 and Worried well Z71.1 [place] [id number] [place] [address] 87039- 6463 May, Severe episode of recurrent major depressive disorder, without psychotic features F33.2 ; Anxiety, generalized F41.1 and Borderline personality disorder in adult F60.3 [place] [id number] [place] [address] 26693- 2788 18 May, 2017 [place] [id number] [place] [address] 54766- 9692 14 May, 2017 [place] [id number] [place] [address] 36201- 4660 May, Type 2 diabetes mellitus with diabetic autonomic (poly) neuropathy E11.43 [place] [id number] [place] [address] 75817- 2867 May, Severe episode of recurrent major depressive disorder, without psychotic features F33.2 ; Anxiety, generalized F41.1 and Borderline personality disorder in adult F60.3 [place] [id number] [place] [address] 27663- 5065 May, [place] [id number] [place] [address] 65061- 3481 May, Type 2 diabetes mellitus with diabetic autonomic (poly) neuropathy E11.43 ; Multiple neurological symptoms R29.90 ; Dysuria R30.0 ; Tobacco abuse Z72.0 ; Right hip pain M25.551 ; Anxiety F41.9 ; Gastritis determined by endoscopy K29.70 ; Chronic pain syndrome G89.4 ; Acute non- recurrent maxillary sinusitis J01.00 ; Self mutilating behavior Z72.89 and BMI 40.0-44.9, adult Z68.41 [place] [id number] [place] [address] 33629- 0103 May, Severe episode of recurrent major depressive disorder, without psychotic features F33.2 ; Anxiety, generalized F41.1 and Borderline personality disorder in adult F60.3 [place] [id number] [place] [address] 54249- 7267 Apr, [place] [id number] [place] [address] 28443- 9235 Apr, [facility] [id number] [place] [address] 52789 -4019 Apr, [facility] [address] [place] [id number] [place] [address] 44596 -5737 Apr, Aspiration pneumonia of right lower lobe, unspecified aspiration pneumonia type J69.0 [place] [id number] [place] [address] 48862- 5695 Apr, Severe episode of recurrent major depressive disorder, without psychotic features F33.2 ; Anxiety, generalized F41.1 and Borderline personality disorder in adult F60.3 [facility] [address], [place] [address]- 3803 Apr, [facility] [id number] [place] [address] 37983- 2568 Apr, Chronic pain syndrome G89.4 [facility] [id number] [place] [address] 07329- 8291 21 Apr, 2017 Severe episode of recurrent major depressive disorder, without psychotic features F33.2 ; Anxiety, generalized F41.1 and Borderline personality disorder in adult F60.3 [facility] [id number] [place] [address] 67184- 2743 16 Apr, 2017 Severe episode of recurrent major depressive disorder, without psychotic features F33.2 ; Anxiety, generalized F41.1 and Borderline personality disorder in adult F60.3 [place] [id number] [place] [address] 49697- 4288 16 Apr, 2017 Closed nondisplaced fracture of third metatarsal bone of left foot with routine healing, subsequent encounter S92.335D ; Closed nondisplaced fracture of fourth metatarsal bone of left foot with routine healing, subsequent encounter S92.345D and Closed nondisplaced fracture of second metatarsal bone of left foot with routine healing, subsequent encounter S92.325D [place] [address], [place] [address]- 3898 16 Apr, 2017 [facility] [id number] [place] [address] 18601- 5083 15 Apr, 2017 [facility] [id number] [place] [address] 64597- 1705 14 Apr, 2017 [place] [id number] [place] [address] 89272- 6292 13 Apr, 2017 Screening breast examination Z12.31 [place] [id number] [place] [address] 67445- 4029 09 Apr, 2017 [place] [id number] [place] [address] 26583- 0378 Apr, Type 2 diabetes mellitus with diabetic autonomic (poly) neuropathy E11.43 [facility] [id number] [place] [address] 29155- 9703 Apr, Severe episode of recurrent major depressive disorder, without psychotic features F33.2 ; Anxiety, generalized F41.1 and Borderline personality disorder in adult F60.3 [facility] [id number] [place] [address] 43513- 8260 Apr, Type 2 diabetes mellitus with diabetic autonomic (poly) neuropathy E11.43 ; Chronic pain syndrome G89.4 and Anxiety F41.9 [facility] [id number] [place] [address] 63843 -7470 Apr, BMI 45.0-49.9, adult Z68.42 [facility] [id number] [place] [address] 68792 -1301 Apr, Avulsion of toenail, initial encounter S91.209A and Acute non-recurrent maxillary sinusitis J01.00 [facility] [id number] [place] [address] 31672- 1167 Apr, [facility] [id number] [place] [address] 79585- 4779 Mar, [facility] [id number] [place] [address] 80199- 5948 Mar, Severe episode of recurrent major depressive disorder, without psychotic features F33.2 ; Anxiety, generalized F41.1 and Borderline personality disorder in adult F60.3 [facility] [id number] [place] [address] 08837- 2242 Mar, [facility] [id number] [place] [address] 20358- 9595 Mar, [facility] [id number] [place] [address] 78531- 2140 Mar, [facility] [address], [place] [address]- 0157 Mar, Seizure disorder G40.909 [facility] [id number] [place] [address] 02384- 1381 Mar, [facility] [id number] [place] [address] 83437- 3225 Mar, [facility] [id number] [place] [address] 80679 -7987 Mar, Left foot pain M79.672 ; Stage 3 chronic kidney disease N18.3 and Closed nondisplaced fracture of second metatarsal bone of left foot, initial encounter S92.325A [facility] [id number] [place] [address] 63442- 4999 Mar, Severe episode of recurrent major depressive disorder, without psychotic features F33.2 and Anxiety, generalized F41.1 [facility] [id number] [place] [address] 80021- 6750 Mar, [facility] [id number] [place] [address] 79229- 9516 Mar, Closed nondisplaced fracture of second metatarsal bone of left foot, initial encounter S92.325A and Closed nondisplaced fracture of third metatarsal bone of left foot, initial encounter S92.335A [facility] [id number] [place] [address] 29604- 8117 Mar, Seizure disorder G40.909 [facility] [id number] [place] [address] 99641- 9944 Mar, [facility] [id number] [place] [address] 93274- 5389 Mar, [facility] [id number] [place] [address] 12444- 9671 Mar, [facility] [id number] [place] [address] 59149- 8270 Mar, [facility] [id number] [place] [address] 83702- 2627 Mar, High risk sexual behavior Z72.51 [facility] [id number] [place] [address] 85484- 0824 Mar, Severe episode of recurrent major depressive disorder, without psychotic features F33.2 and Anxiety, generalized F41.1 [place] [id number] [place] [address] 64857- 4255 Mar, Anxiety F41.9 and Type 2 diabetes mellitus with diabetic autonomic (poly)neuropathy E11.43 [place] [id number] [place] [address] 55985- 2515 Mar, Anxiety F41.9 [place] [id number] [place] [address] 16794- 9504 Mar, High risk sexual behavior Z72.51 [place] [id number] [place] [address] 10305- 9984 Mar, Chronic pain syndrome G89.4 [place] [id number] [place] [address] 65846- 0141 Mar, Type 2 diabetes mellitus with diabetic autonomic (poly) neuropathy E11.43 [place] [id number] [place] [address] 88501- 0959 Mar, [place] [id number] [place] [address] 74254- 5816 Mar, Closed nondisplaced fracture of second metatarsal bone of left foot, initial encounter S92.325A ; Chronic pain syndrome G89.4 ; Closed nondisplaced fracture of third metatarsal bone of left foot, initial encounter S92.335A ; Acute left ankle pain M25.572 and Type 2 diabetes mellitus with diabetic autonomic (poly)neuropathy E11.43 [facility] [address] [address] 5[address] Mar, [facility] [id number] [address] 3085 Mar, [facility] [id number] [place] [address] 52714- 0578 Mar, Severe episode of recurrent major depressive disorder, without psychotic features F33.2 and Anxiety, generalized F41.1 [facility] [id number] [place] [address] 23363- 0819 Feb, [facility] [id number] [place] [address] 44449- 3035 Feb, Renal insufficiency N28.9 [facility] [id number] [place] [address] 47336- 8424 Feb, [facility] [id number] [place] [address] 11257- 7724 Feb, Severe episode of recurrent major depressive disorder, without psychotic features F33.2 and Anxiety, generalized F41.1 [facility] [id number] [place] [address] 36008- 3969 Feb, [facility] [id number] [place] [address] 83603- 6936 22 Feb, 2017 [facility] [id number] [place] [address] 70117- 5330 Feb, Renal insufficiency N28.9 [facility] [id number] [place] [address] 09932 2543 19 Feb, 2017 [facility] [address], [place] [address] 18 Feb, 2017 [facility] [id number] [place] [address] 47441- 1676 14 Feb, 2017 [facility] [id number] [place] [address] 21523- 3265 13 Feb, 2017 Severe episode of recurrent major depressive disorder, without psychotic features F33.2 and Anxiety, generalized F41.1 [facility] [id number] [address]- 7079 13 Feb, 2017 Closed nondisplaced fracture of second metatarsal bone of left foot, initial encounter S92.325A ; Chronic pain syndrome G89.4 ; Closed nondisplaced fracture of third metatarsal bone of left foot, initial encounter S92.335A ; Left hip pain M25.552 and Stage 3 chronic kidney disease N18.3 [facility] [id number] [place] [address] 23271- 1370 Feb, [facility] [id number] [place] [address] 55124- 7081 Feb, [facility] [id number] [place] [address] 20136- 7735 Feb, Closed nondisplaced fracture of second metatarsal bone of left foot, initial encounter S92.325A and Closed nondisplaced fracture of third metatarsal bone of left foot, initial encounter S92.335A [facility] [id number] [place] [address] 91342- 5938 Feb, [facility] [id number] [place] [address] 96410- 2765 Feb, Anxiety F41.9 [facility] [id number] [place] [address] 72082- 9274 Feb, [facility] [id number] [place] [address] 76438- 4040 Feb, Chronic pain syndrome G89.4 [facility] [id number] [place] [address] 85516- 7783 05 Feb, 2017 Left foot pain M79.672 ; Closed nondisplaced fracture of second metatarsal bone of left foot, initial encounter S92.325A ; Closed nondisplaced fracture of third metatarsal bone of left foot, initial encounter S92.335A and Oral infection K12.2 [facility] [id number] [place] [address] 96637- 2039 Feb, [facility] [address], [place] [address]- 5773 Jan, [facility] [id number] [place] [address] 51576- 3405 Jan, Type 2 diabetes mellitus with diabetic autonomic (poly) neuropathy E11.43 and Congestive heart failure, unspecified congestive heart failure chronicity, unspecified congestive heart failure type I50.9 [place] [id number] [place] [address] 59856- 8120 Jan, Congestive heart failure, unspecified congestive heart failure chronicity, unspecified congestive heart failure type I50.9 and Stage 3 chronic kidney disease N18.3 [place] [id number] [place] [address] 87172- 0408 Jan, Stage 3 chronic kidney disease N18.3 ; Edema of both legs R60.0 ; Chronic congestive heart failure, unspecified congestive heart failure type I50.9 ; Acute low back pain without sciatica, unspecified back pain laterality M54.5 ; Chronic nausea R11.0 and Primary insomnia F51.01 [place] [id number] [place] [address] 92522- 2968 Jan, Severe episode of recurrent major depressive disorder, without psychotic features F33.2 and Anxiety, generalized F41.1 [place] [address], [place] [address]- 6326 Jan, [place] [id number] [place] [address] 77472- 9012 Jan, [facility] [id number] [place] [address] 16492- 1732 Jan, [place] [id number] [place] [address] 52157- 2343 Jan, [facility] [id number] [place] [address] 31717- 9071 Jan, Anxiety F41.9 and Severe episode of recurrent major depressive disorder, without psychotic features F33.2 [place] [id number] [place] [address] 23089- 3674 Jan, Type 2 diabetes mellitus with diabetic autonomic (poly) neuropathy E11.43 [place] [id number] [place] [address] 34541- 9622 Jan, Severe episode of recurrent major depressive disorder, without psychotic features F33.2 and Type 2 diabetes mellitus with diabetic autonomic (poly)neuropathy E11.43 [place] [id number] [place] [address] 97892- 8891 Jan, [place] [id number] [place] [address] 11157- 5138 Jan, [place] [id number] [place] [address] 25769- 3085 Jan, Stage 3 chronic kidney disease N18.3 ; Seizure disorder G40.909 ; Edema of both legs R60.0 and Blister (nonthermal), right foot, initial encounter S90.821A [place] [id number] [place] [address] 67816- 3174 Jan, Severe episode of recurrent major depressive disorder, without psychotic features F33.2 and Anxiety, generalized F41.1 [place] [id number] [place] [address] 82224- 3787 Jan, Severe episode of recurrent major depressive disorder, without psychotic features F33.2 and Anxiety, generalized F41.1 [place] [id number] [place] [address] 20618- 4993 Jan, [place] [id number] [place] [address] 86594- 4293 Jan, Anxiety F41.9 and Primary insomnia F51.01 [place] [id number] [place] [address] 85519- 3214 Jan, Type 2 diabetes mellitus with diabetic autonomic (poly) neuropathy E11.43 ; jail current use of insulin Z79.4 ; Stage 3 chronic kidney disease N18.3 ; Chronic pain syndrome G89.4 ; Swelling of mandible R22.0 and Seizure disorder G40.909 [place] [id number] [place] [address] 13862- 7545 Jan, [place] [id number] [place] [address] 97783- 7109 Jan, [place] [id number] [place] [address] 37712- 0013 Dec, Severe episode of recurrent major depressive disorder, without psychotic features F33.2 and Anxiety, generalized

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
--- OUTSIDE RECORDS SUMMARY | 2017-12-04 20:32 | XMS REPORT ---
Author Author MIRZA MARTINO [facility] Address [address] [place] [address] Care Team Providers Care Etcher Apprentice Name Role Phone MIRZA MARTINO Unavailable PROBLEMS Type Condition ICD9-CM Code FCG42-VN Code Onset Dates Condition Status SNOMED Code Problem Stage 3 chronic kidney disease N18.3 Active 489971268 Problem Dental caries, unspecified K02.9 Active 53604829 Problem Port catheter in place Z95.828 Active 348416274 Problem Epigastric pain R10.13 Active 81445447 Problem Gastroparesis K31.84 Active 720427451 Problem Essential hypertension I10 Active 65014292 Problem Seizure disorder G40.909 Active 297271089 Problem Acquired hypothyroidism E03.9 Active 560304669 Problem Chronic superficial gastritis without bleeding K29.30 Active 351411356 Problem Anxiety F41.9 Active 91081163 Problem Self-inflicted injury Z72.89 Active 764979039 Problem Chronic congestive heart failure, unspecified congestive heart failure type I50.9 Active 03238445 Problem Gastritis determined by endoscopy K29.70 Active 5473050 Problem Acute left ankle pain M25.572 Active 66191194888011 Problem Acute midline low back pain without sciatica M54.5 Active 777806399 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 Active 154688521 Problem Primary insomnia F51.01 Active 5069873 Problem Chronic pain syndrome G89.4 Active 392862698 Problem Multiple neurological symptoms R29.90 Active 155789042 Problem Borderline personality disorder in adult F60.3 Active 43410638 Problem Closed nondisplaced fracture of second metatarsal bone of left foot, initial encounter S92.325A Active 21294910 Problem Frequent falls R29.6 Active 520368290 Problem Anxiety, generalized F41.1 Active 60530893 Problem Vaginal bleeding N93.9 Active 794565994 Problem Tobacco abuse Z72.0 Active 995449624 Problem Severe episode of recurrent major depressive disorder, without psychotic features F33.2 Active 63597633 Problem Postural hypotension I95.1 Active 28188843 Problem Seasonal allergic rhinitis, unspecified allergic rhinitis trigger J30.2 Active 727644990 Problem Type 2 diabetes mellitus with diabetic polyneuropathy E11.42 Active 11643507 Problem Noncompliance with diabetes treatment Z91.19 Active 8716071 ALLERGIES No Information ENCOUNTERS Encounter Location Date Diagnosis [facility] [address] [address] October, [facility] [place] [address] [id number] Sep, [facility] [address] [address] Sep, [facility] [address] [address]- 0[address] Sep, [facility] [address] [address]- 2961 Sep, [facility] [address] [address]- 0[address] Sep, [facility] [address] [address]- 4[address] Sep, [facility] [id number] [place] [address] 69861- 4628 Sep, [facility] [address] [address]- [address] Sep, [facility] [id number] [place] [address] 63907 -[address]8 Aug, Dysuria R30.0 ; Type 2 diabetes mellitus with diabetic polyneuropathy E11.42 ; Oral abscess K12.2 and BMI 40.0-44.9, adult Z68.41 [facility] [id number] [place] [address] 92454- 6481 Aug, [facility] [address] [address]- 8651 Aug, [facility] [address], [place] [address] 7[address] Aug, [facility] [address], [place] [address] 0970 Aug, [facility] [address], [place] [address] Aug, Severe episode of recurrent major depressive disorder, without psychotic features F33.2 ; Anxiety, generalized F41.1 and Borderline personality disorder in adult F60.3 [facility] [address], [place] [address] 22 Aug, 2017 [facility] [address] [place] [address] 31599- 0219 20 Aug, 2017 [facility] [id number] [place] [address] 38329- 8367 19 Aug, 2017 Severe episode of recurrent major depressive disorder, without psychotic features F33.2 ; Anxiety, generalized F41.1 and Borderline personality disorder in adult F60.3 [facility] [address], [place] [address] 17 Aug, 2017 [facility] [address], [place] [address]- 1004 15 Aug, 2017 [facility] [address], [place] [address]- 6587 14 Aug, 2017 [facility] [address], [place] [address] 14 Aug, 2017 Dysuria R30.0 ; Dental infection K04.7 ; Acute cystitis with hematuria N30.01 and BMI 45.0-49.9, adult Z68.42 [facility] [address], [place] [address] 7800 14 Aug, 2017 Severe episode of recurrent major depressive disorder, without psychotic features F33.2 ; Anxiety, generalized F41.1 and Borderline personality disorder in adult F60.3 [facility] [address], [place] [address]- 7843 Aug, [facility] [id number] [place] [address] 90896- 6926 Aug, Closed nondisplaced fracture of second metatarsal bone of left foot, initial encounter S92.325A and Chronic pain syndrome G89.4 [facility] [id number] [place] [address] 13638- 5880 Aug, Type 2 diabetes mellitus with diabetic polyneuropathy E11.42 [facility] [id number] [place] [address] 57360- 4528 Aug, Severe episode of recurrent major depressive disorder, without psychotic features F33.2 ; Anxiety, generalized F41.1 and Borderline personality disorder in adult F60.3 [facility] [address] [address]- 3[address] Aug, [facility] [address] [address]- 2380 Aug, [facility] [id number] [place] [address] 38471- 5778 Aug, [facility] [address], [place] [address]- 3981 Aug, [facility] [address], [place] [address]- 8299 Aug, [facility] [address], [place] [address]- 7177 Jul, [facility] [address], [place] [address]- 4416 Jul, [facility] [id number] [place] [address] 40654703- 9956 Jul, Severe episode of recurrent major depressive disorder, without psychotic features F33.2 ; Anxiety, generalized F41.1 and Borderline personality disorder in adult F60.3 [place] [address], [place] [address]- 8666 Jul, Type 2 diabetes mellitus with diabetic polyneuropathy E11.42 [place] [id number] [place] [address] 65420- 1583 Jul, Closed nondisplaced fracture of second metatarsal bone of left foot, initial encounter S92.325A and Closed nondisplaced fracture of third metatarsal bone of left foot, initial encounter S92.335A [place] [id number] [place] [address] 91978- 8550 Jul, [place] [id number] [place] [address] 26360- 9073 20 Jul, 2017 Closed nondisplaced fracture of second metatarsal bone of left foot, initial encounter S92.325A ; Acute left ankle pain M25.572 ; Acute midline low back pain without sciatica M54.5 and Seasonal allergic rhinitis, unspecified allergic rhinitis trigger J30.2 [place] [id number] [place] [address] 27872- 2210 Jul, [place] [id number] [place] [address] 56861- 6678 19 Jul, 2017 [place] [id number] [place] [address] 43744- 9849 15 Jul, 2017 [place] [address] [place] [address] 34309- 4782 15 Jul, 2017 Frequent falls R29.6 [place] [id number] [place] [address] 17315- 8054 14 Jul, 2017 Frequent falls R29.6 [place] [id number] [place] [address] 93526- 9739 07 Jul, 2017 Severe episode of recurrent major depressive disorder, without psychotic features F33.2 ; Anxiety, generalized F41.1 and Borderline personality disorder in adult F60.3 [place] [address] [place] [address]- 0762 07 Jul, 2017 Chronic pain syndrome G89.4 [facility] [address] [address]- 4709 Jul, [facility] current use of insulin Z79.4 [facility] [id number] [place] [address] 78670- 5796 Jul, [facility] [address] 59[address]- 0776 Jul, Type 2 diabetes mellitus with diabetic polyneuropathy E11.42 [place] [address] [address]- 8122 Jun, 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 and Thrush B37.0 [place] [address] [address]- 0785 Jun, Severe episode of recurrent major depressive disorder, without psychotic features F33.2 ; Anxiety, generalized F41.1 and Borderline personality disorder in adult F60.3 [place] [id number] [place] [address] 05082- 9892 Jun, Severe episode of recurrent major depressive disorder, without psychotic features F33.2 ; Anxiety, generalized F41.1 and Borderline personality disorder in adult F60.3 [place] [id number] [place] [address] 48947- 3360 Jun, Frequent falls R29.6 ; Bronchitis J40 ; BMI 40.0-44.9, adult Z68.41 and Coccygeal pain, acute M53.3 [facility] [id number] [place] [address] 74031- 1525 Jun, [facility] [id number] [place] [address] 74453 -9625 Jun, [facility] [id number] [place] [address] 95500- 5392 Jun, [place] [address], [place] [address]- 8951 Jun, Dental caries, unspecified K02.9 [place] [id number] [place] [address] 71346- 7645 Jun, Acute non-recurrent maxillary sinusitis J01.00 and BMI 40.0- 44.9, adult Z68.41 [place] [address] [place] [address] 91586- 8772 Jun, [place] [address] [place] [address] 22892- 3264 Jun, Severe episode of recurrent major depressive disorder, without psychotic features F33.2 ; Anxiety, generalized F41.1 and Borderline personality disorder in adult F60.3 [place] [address], [place] [address]- 6317 Jun, Closed nondisplaced fracture of third metatarsal bone of left foot with routine healing, subsequent encounter S92.335D ; Closed nondisplaced fracture of second metatarsal bone of left foot with routine healing, subsequent encounter S92.325D and Closed nondisplaced fracture of fourth metatarsal bone of left foot with routine healing, subsequent encounter S92.345D [place] [address], [place] [address]- 3007 Jun, Severe episode of recurrent major depressive disorder, without psychotic features F33.2 ; Anxiety, generalized F41.1 and Borderline personality disorder in adult F60.3 [place] [address], [place] [address]- 6500 Jun, [place] [address], [place] [address]- 8617 Jun, [place] [address], [place] [address]- 2043 Jun, [facility] [address], [place] [address]- 8770 Jun, [place] [address], [place] [address]- 5922 Jun, [place] [address], [place] [address]- 4973 Jun, Anxiety F41.9 [place] [address], [place] [address]- 9447 Jun, [place] [id number] [place] [address] 95864- 0081 Jun, [place] [address] [place] [address] 25638- 0348 Jun, Type 2 diabetes mellitus with diabetic autonomic (poly) neuropathy E11.43 [place] [address] [place] [address] 11152- 7811 Jun, Severe episode of recurrent major depressive disorder, without psychotic features F33.2 ; Anxiety, generalized F41.1 and Borderline personality disorder in adult F60.3 [place] [address] [place] [address] 53914- 9251 Jun, Type 2 diabetes mellitus with diabetic autonomic (poly) neuropathy E11.43 and Chronic pain syndrome G89.4 [place] [address], [place] [address]- 4895 20 May, 2017 Recent urinary tract infection Z87.440 ; Deliberate self- cutting Z72.89 ; Chest discomfort R07.89 ; BMI 40.0-44.9, adult Z68.41 and Worried well Z71.1 [place] [address], [place] [address]- 7629 May, Severe episode of recurrent major depressive disorder, without psychotic features F33.2 ; Anxiety, generalized F41.1 and Borderline personality disorder in adult F60.3 [place] [address], [place] [address]- 1750 18 May, 2017 [place] [address], [place] [address]- 0018 14 May, 2017 [place] [address], [place] [address]- 3770 May, Type 2 diabetes mellitus with diabetic autonomic (poly) neuropathy E11.43 [place] [id number] [place] [address] 34041- 2796 May, Severe episode of recurrent major depressive disorder, without psychotic features F33.2 ; Anxiety, generalized F41.1 and Borderline personality disorder in adult F60.3 [place] [id number] [place] [address] 54841- 0713 May, [place] [id number] [place] [address] 21306- 5540 May, Type 2 diabetes mellitus with diabetic autonomic (poly) neuropathy E11.43 ; Multiple neurological symptoms R29.90 ; Dysuria R30.0 ; Tobacco abuse Z72.0 ; Right hip pain M25.551 ; Anxiety F41.9 ; Gastritis determined by endoscopy K29.70 ; Chronic pain syndrome G89.4 ; Acute non- recurrent maxillary sinusitis J01.00 ; Self mutilating behavior Z72.89 and BMI 40.0-44.9, adult Z68.41 [place] [id number] [place] [address] 03742- 7367 May, Severe episode of recurrent major depressive disorder, without psychotic features F33.2 ; Anxiety, generalized F41.1 and Borderline personality disorder in adult F60.3 [address] [place] [address] 68848- 3422 Apr, [place] [id number] [place] [address] 92885- 9565 Apr, [facility] [address] [place] [id number] [place] [address] 65875 -3760 Apr, [facility] [address] [place] [id number] [place] [address] 44508 -4625 Apr, Aspiration pneumonia of right lower lobe, unspecified aspiration pneumonia type J69.0 [place] [address] [address]- 3197 29 Apr, 2017 Severe episode of recurrent major depressive disorder, without psychotic features F33.2 ; Anxiety, generalized F41.1 and Borderline personality disorder in adult F60.3 [facility] [address], [place] [address]- 8101 22 Apr, 2017 [facility] [address] [place] [address] 90470- 5249 Apr, Chronic pain syndrome G89.4 [facility] [address] [place] [address] 30799- 4112 21 Apr, 2017 Severe episode of recurrent major depressive disorder, without psychotic features F33.2 ; Anxiety, generalized F41.1 and Borderline personality disorder in adult F60.3 [facility] [address] [place] [address] 01553- 7231 16 Apr, 2017 Severe episode of recurrent major depressive disorder, without psychotic features F33.2 ; Anxiety, generalized F41.1 and Borderline personality disorder in adult F60.3 [facility] [address], [place] [address]- 1655 16 Apr, 2017 Closed nondisplaced fracture of third metatarsal bone of left foot with routine healing, subsequent encounter S92.335D ; Closed nondisplaced fracture of fourth metatarsal bone of left foot with routine healing, subsequent encounter S92.345D and Closed nondisplaced fracture of second metatarsal bone of left foot with routine healing, subsequent encounter S92.325D [facility] [address], [place] [address]- 4111 16 Apr, 2017 [facility] [address] [place] [address] 30893- 0179 15 Apr, 2017 [facility] [address] [place] [address] 37600- 2683 14 Apr, 2017 [facility] [address], [place] [address]- 2034 13 Apr, 2017 Screening breast examination Z12.31 [place] [id number] [place] [address] 59892- 0711 Apr, [place] [id number] [place] [address] 94323- 6270 Apr, Type 2 diabetes mellitus with diabetic autonomic (poly) neuropathy E11.43 [place] [id number] [place] [address] 50957- 6311 Apr, Severe episode of recurrent major depressive disorder, without psychotic features F33.2 ; Anxiety, generalized F41.1 and Borderline personality disorder in adult F60.3 [place] [id number] [place] [address] 22976- 8916 Apr, Type 2 diabetes mellitus with diabetic autonomic (poly) neuropathy E11.43 ; Chronic pain syndrome G89.4 and Anxiety F41.9 [facility] [id number] [place] [address] 65606 -8512 Apr, BMI 45.0-49.9, adult Z68.42 [facility] [id number] [place] [address] 70879 -1798 Apr, Avulsion of toenail, initial encounter S91.209A and Acute non-recurrent maxillary sinusitis J01.00 [place] [id number] [place] [address] 81593- 9480 Apr, [place] [id number] [place] [address] 35433- 5946 Mar, [place] [id number] [place] [address] 34918- 2392 Mar, Severe episode of recurrent major depressive disorder, without psychotic features F33.2 ; Anxiety, generalized F41.1 and Borderline personality disorder in adult F60.3 [place] [id number] [place] [address] 97539- 2854 Mar, [place] [id number] [place] [address] 19119- 4783 Mar, [facility] [address], [place] [address]- 5576 Mar, [facility] [id number] [place] [address] 65286- 7524 Mar, Seizure disorder G40.909 [facility] [id number] [place] [address] 76508- 0354 Mar, [facility] [id number] [place] [address] 74610- 7750 Mar, [facility] [id number] [place] [address] 69623 -8229 Mar, Left foot pain M79.672 ; Stage 3 chronic kidney disease N18.3 and Closed nondisplaced fracture of second metatarsal bone of left foot, initial encounter S92.325A [place] [id number] [place] [address] 70285- 6010 Mar, Severe episode of recurrent major depressive disorder, without psychotic features F33.2 and Anxiety, generalized F41.1 [facility] [id number] [place] [address] 13993- 3172 Mar, [facility] [id number] [place] [address] 90110- 1151 Mar, Closed nondisplaced fracture of second metatarsal bone of left foot, initial encounter S92.325A and Closed nondisplaced fracture of third metatarsal bone of left foot, initial encounter S92.335A [facility] [address] [place] [address] 98064- 5537 Mar, Seizure disorder G40.909 [facility] [id number] [place] [address] 65902- 6158 Mar, [facility] [address] [place] [address] 07094- 5862 Mar, [facility] [id number] [place] [address] 12402- 5748 Mar, [place] [address] [place] [address] 66741- 0721 Mar, [place] [id number] [place] [address] 46298- 7763 Mar, High risk sexual behavior Z72.51 [place] [id number] [place] [address] 32302- 3570 Mar, Severe episode of recurrent major depressive disorder, without psychotic features F33.2 and Anxiety, generalized F41.1 [place] [id number] [place] [address] 71596- 4900 Mar, Anxiety F41.9 and Type 2 diabetes mellitus with diabetic autonomic (poly)neuropathy E11.43 [place] [address] [place] [id number] [place] [address] 02221- 4022 Mar, Anxiety F41.9 [place] [address] [id number] [place] [address] 45152- 7001 Mar, High risk sexual behavior Z72.51 [place] [address] [id number] [place] [address] 34499- 3325 Mar, Chronic pain syndrome G89.4 [place] [address] [id number] [place] [address] 15795- 5878 Mar, Type 2 diabetes mellitus with diabetic autonomic (poly) neuropathy E11.43 [place] [address] [place] [id number] [place] [address] 90415- 3195 Mar, [place] [id number] [place] [address] 14715- 8742 Mar, Closed nondisplaced fracture of second metatarsal bone of left foot, initial encounter S92.325A ; Chronic pain syndrome G89.4 ; Closed nondisplaced fracture of third metatarsal bone of left foot, initial encounter S92.335A ; Acute left ankle pain M25.572 and Type 2 diabetes mellitus with diabetic autonomic (poly)neuropathy E11.43 [facility] [address], [place] [address]- 5087 Mar, [facility] [id number] [place] [address] 11823- 1902 Mar, [facility] [id number] [place] [address] 57322- 5677 Mar, Severe episode of recurrent major depressive disorder, without psychotic features F33.2 and Anxiety, generalized F41.1 [facility] [id number] [place] [address] 41819- 9336 27 Feb, 2017 [facility] [id number] [place] [address] 95880- 7586 Feb, Renal insufficiency N28.9 [facility] [facility] [id number] [place] [address] 75787- 1100 Feb, [facility] [id number] [place] [address] 40023- 2188 Feb, Severe episode of recurrent major depressive disorder, without psychotic features F33.2 and Anxiety, generalized F41.1 [facility] [id number] [place] [address] 97051- 1239 25 Feb, 2017 [facility] [id number] [place] [address] 68993- 9273 22 Feb, 2017 [facility] [id number] [place] [address] 25826- 3017 20 Feb, 2017 Renal insufficiency N28.9 [facility] [id number] [place] [address] 12946- 7840 19 Feb, 2017 [facility] [id number] [place] [address] 08418 -7274 18 Feb, 2017 [facility] [id number] [place] [address] 58226- 7450 14 Feb, 2017 [facility] [id number] [place] [address] 00210- 1966 13 Feb, 2017 Severe episode of recurrent major depressive disorder, without psychotic features F33.2 and Anxiety, generalized F41.1 [facility] [id number] [place] [address] 03593- 4280 13 Feb, 2017 Closed nondisplaced fracture of second metatarsal bone of left foot, initial encounter S92.325A ; Chronic pain syndrome G89.4 ; Closed nondisplaced fracture of third metatarsal bone of left foot, initial encounter S92.335A ; Left hip pain M25.552 and Stage 3 chronic kidney disease N18.3 [facility] [address] [facility] [id number] [place] [address] 22345- 2777 07 Feb, 2017 [facility] [id number] [place] [address] 95766- 3881 Feb, [facility] [id number] [place] [address] 38110- 5472 Feb, Closed nondisplaced fracture of second metatarsal bone of left foot, initial encounter S92.325A and Closed nondisplaced fracture of third metatarsal bone of left foot, initial encounter S92.335A [facility] [id number] [place] [address] 40960- 1312 Feb, [facility] [id number] [place] [address] 66071- 4850 Feb, Anxiety F41.9 [facility] [id number] [place] [address] 25691- 4748 Feb, [facility] [id number] [place] [address] 54404- 5424 Feb, Chronic pain syndrome G89.4 [facility] [id number] [place] [address] 70717- 0701 05 Feb, 2017 Left foot pain M79.672 ; Closed nondisplaced fracture of second metatarsal bone of left foot, initial encounter S92.325A ; Closed nondisplaced fracture of third metatarsal bone of left foot, initial encounter S92.335A and Oral infection K12.2 [place] [address], [place] [address] 4761 Feb, [facility] [id number] [place] [address] 55508- 9917 Jan, [facility] [id number] [place] [address] 53218- 2908 Jan, Type 2 diabetes mellitus with diabetic autonomic (poly) neuropathy E11.43 and Congestive heart failure, unspecified congestive heart failure chronicity, unspecified congestive heart failure type I50.9 [place] [id number] [place] [address] 12832- 3838 Jan, Congestive heart failure, unspecified congestive heart failure chronicity, unspecified congestive heart failure type I50.9 and Stage 3 chronic kidney disease N18.3 [place] [id number] [place] [address] 38822- 0091 Jan, Stage 3 chronic kidney disease N18.3 ; Edema of both legs R60.0 ; Chronic congestive heart failure, unspecified congestive heart failure type I50.9 ; Acute low back pain without sciatica, unspecified back pain laterality M54.5 ; Chronic nausea R11.0 and Primary insomnia F51.01 [place] [id number] [place] [address] 53325- 6590 Jan, Severe episode of recurrent major depressive disorder, without psychotic features F33.2 and Anxiety, generalized F41.1 [place] [id number] [place] [address] 52141- 0221 Jan, [place] [id number] [place] [address] 14694- 6653 Jan, [place] [id number] [place] [address] 61837- 9847 Jan, [place] [id number] [place] [address] 69423- 0038 Jan, [place] [id number] [place] [address] 36795- 3571 Jan, Anxiety F41.9 and Severe episode of recurrent major depressive disorder, without psychotic features F33.2 [place] [id number] [place] [address] 20904- 8935 Jan, Type 2 diabetes mellitus with diabetic autonomic (poly) neuropathy E11.43 [place] [id number] [place] [address] 56697- 5476 Jan, Severe episode of recurrent major depressive disorder, without psychotic features F33.2 and Type 2 diabetes mellitus with diabetic autonomic (poly)neuropathy E11.43 [place] [id number] [place] [address] 86436- 7514 Jan, [place] [id number] [place] [address] 01759- 6809 Jan, [place] [id number] [place] [address] 31041- 1952 Jan, Stage 3 chronic kidney disease N18.3 ; Seizure disorder G40.909 ; Edema of both legs R60.0 and Blister (nonthermal), right foot, initial encounter S90.821A [place] [id number] [place] [address] 98855- 4028 Jan, Severe episode of recurrent major depressive disorder, without psychotic features F33.2 and Anxiety, generalized F41.1 [place] [id number] [place] [address] 94459- 7412 Jan, Severe episode of recurrent major depressive disorder, without psychotic features F33.2 and Anxiety, generalized F41.1 [place] [id number] [place] [address] 19845- 1538 Jan, [place] [id number] [place] [address] 09642- 0556 Jan, Anxiety F41.9 and Primary insomnia F51.01 [place] [id number] [place] [address] 05161- 2962 08 Aug, 2017 Type 2 diabetes mellitus with diabetic autonomic (poly) neuropathy E11.43 ; FCI current use 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 Z79.4 ; Stage 3 chronic kidney disease N18.3 ; Chronic pain syndrome G89.4 ; Swelling of mandible R22.0 and Seizure disorder G40.909 [place] [id number] [place] [address] 20719- 2872 Jan, [place] [id number] [place] [address] 40929- 6971 Jan, [place] [id number] [place] [address] 74320- 3562 Dec, Severe episode of recurrent major depressive disorder, without psychotic features F33.2 and Anxiety, generalized F41.1 [place] [id number] [place] [address] 22466- 7887 Dec, Diarrhea, unspecified type R19.7 ; Gastritis determined by endoscopy K29.70 ; Dysuria R30.0 ; Unspecified abdominal pain R10.9 ; Unspecified fall W19.XXXA and Need for assistance with personal care Z74.1 [place] [id number] [place] [address] 25698- 1512 Dec, Severe episode of recurrent major depressive disorder, without psychotic features F33.2 and Anxiety, generalized F41.1 [place] [id number] [place] [address] 89916- 9377 Dec, Diarrhea, unspecified type R19.7 ; Dysuria R30.0 ; Unspecified abdominal pain R10.9 ; Gastritis determined by endoscopy K29.70 ; Unspecified fall W19.XXXA and Need for assistance with personal care Z74.1 [place] [id number] [place] [address] 18250- 2212 Dec, [place] [id number] [place] [address] 31268- 8096 Dec, [place] [id number] [place] [address] 23446- 5176 Dec, Type 2 diabetes mellitus with diabetic autonomic (poly) neuropathy E11.43 [facility] [id number] [place] [address] 09914- 2263 Dec, Severe episode of recurrent major depressive disorder, without psychotic features F33.2 and Anxiety, generalized F41.1 [facility] [id number] [place]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
--- OUTSIDE RECORDS SUMMARY | 2017-12-04 20:33 | XMS REPORT ---
Author Author ABHINAV FLOYD [facility] Address [address] [place] [address] Care Team Providers Care Information Systems Professor Name Role Phone ABHINAV FLOYD Unavailable PROBLEMS Type Condition ICD9-CM Code HHP60-DI Code Onset Dates Condition Status SNOMED Code Problem Stage 3 chronic kidney disease N18.3 Active 374716380 Problem Dental caries, unspecified K02.9 Active 87361749 Problem Port catheter in place Z95.828 Active 323041997 Problem Epigastric pain R10.13 Active 83202191 Problem Gastroparesis K31.84 Active 482144922 Problem Essential hypertension I10 Active 87217004 Problem Seizure disorder G40.909 Active 588793099 Problem Acquired hypothyroidism E03.9 Active 189546254 Problem Chronic superficial gastritis without bleeding K29.30 Active 252365800 Problem Anxiety F41.9 Active 20962482 Problem Self-inflicted injury Z72.89 Active 785902619 Problem Chronic congestive heart failure, unspecified congestive heart failure type I50.9 Active 57646398 Problem Gastritis determined by endoscopy K29.70 Active 2368604 Problem Acute left ankle pain M25.572 Active 66162719821690 Problem Acute midline low back pain without sciatica M54.5 Active 918402245 Problem 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 Active 972391600 Problem Primary insomnia F51.01 Active 1641567 Problem Chronic pain syndrome G89.4 Active 350141246 Problem Multiple neurological symptoms R29.90 Active 135717305 Problem Borderline personality disorder in adult F60.3 Active 05265300 Problem Closed nondisplaced fracture of second metatarsal bone of left foot, initial encounter S92.325A Active 74760346 Problem Frequent falls R29.6 Active 191451676 Problem Anxiety, generalized F41.1 Active 51357614 Problem Vaginal bleeding N93.9 Active 596133062 Problem Tobacco abuse Z72.0 Active 472453289 Problem Severe episode of recurrent major depressive disorder, without psychotic features F33.2 Active 18056349 Problem Postural hypotension I95.1 Active 54805510 Problem Seasonal allergic rhinitis, unspecified allergic rhinitis trigger J30.2 Active 507679433 Problem Type 2 diabetes mellitus with diabetic polyneuropathy E11.42 Active 59962250 Problem Noncompliance with diabetes treatment Z91.19 Active 9125546 ALLERGIES No Information ENCOUNTERS Encounter Location Date Diagnosis [facility] [id number] [place] [address] 64723- 0035 October, [facility] [id number] [place] [address] [id number] Sep, [facility] [address] 79451- 9903 Sep, [facility] [id number] [place] [address] 57990- 7895 Sep, [facility] [id number] [place] [address] 87987- 6253 Sep, [facility] [id number] [place] [address] 73574- 1356 Sep, [facility] [id number] [place] [address] 93838- 6026 Sep, [facility] [id number] [place] [address] 20984 -6495 Aug, Dysuria R30.0 ; Type 2 diabetes mellitus with diabetic polyneuropathy E11.42 ; Oral abscess K12.2 and BMI 40.0-44.9, adult Z68.41 [facility] [id number] [place] [address] 20565- 7137 Aug, [facility] [id number] [place] [address] 74002- 6723 Aug, [facility] [id number] [place] [address] 70262- 7771 Aug, [facility] [id number] [place] [address] 57626- 1620 Aug, [facility] [address] [address] 3[address] 27 Aug, 2017 Severe episode of recurrent major depressive disorder, without psychotic features F33.2 ; Anxiety, generalized F41.1 and Borderline personality disorder in adult F60.3 [facility] [address] [address] 22 Aug, 2017 [facility] [id number] [place] [address] 32185- 3286 20 Aug, 2017 [facility] [id number] [place] [address] 27936- 8765 19 Aug, 2017 Severe episode of recurrent major depressive disorder, without psychotic features F33.2 ; Anxiety, generalized F41.1 and Borderline personality disorder in adult F60.3 [facility] [id number] [address] 17 Aug, 2017 [facility] [id number] [place] [address] 99639- 4545 15 Aug, 2017 [facility] [id number] [place] [address] 02951- 1250 14 Aug, 2017 [facility] [id number] [address] 14 Aug, 2017 Dysuria R30.0 ; Dental infection K04.7 ; Acute cystitis with hematuria N30.01 and BMI 45.0-49.9, adult Z68.42 [facility] [address] [address] 2638 14 Aug, 2017 Severe episode of recurrent major depressive disorder, without psychotic features F33.2 ; Anxiety, generalized F41.1 and Borderline personality disorder in adult F60.3 [facility] [id number] [place] [address] 55524- 7795 09 Aug, 2017 [facility] [id number] [address]- 7843 08 Aug, 2017 Closed nondisplaced fracture of second metatarsal bone of left foot, initial encounter S92.325A and Chronic pain syndrome G89.4 [facility] [id number] [place] [address] 97255- 1930 08 Aug, 2017 Type 2 diabetes mellitus with diabetic polyneuropathy E11.42 [facility] [id number] [place] [address] 19423- 6091 Aug, Severe episode of recurrent major depressive disorder, without psychotic features F33.2 ; Anxiety, generalized F41.1 and Borderline personality disorder in adult F60.3 [facility] [id number] [place] [address] 55876- 3553 Aug, [facility] [id number] [place] [address] 38646- 4656 Aug, [facility] [id number] [place] [address] 15879- 6018 Aug, [facility] [id number] [place] [address] 40246- 3715 Aug, [facility] [id number] [place] [address] 75057- 1973 Aug, [facility] [id number] [place] [address] 88363- 0909 Jul, [facility] [id number] [place] [address] 39166- 0101 Jul, [facility] [id number] [place] [address] 03841- 8455 Jul, Severe episode of recurrent major depressive disorder, without psychotic features F33.2 ; Anxiety, generalized F41.1 and Borderline personality disorder in adult F60.3 [facility] [id number] [place] [address] 81864- 3491 Jul, Type 2 diabetes mellitus with diabetic polyneuropathy E11.42 [facility] [id number] [place] [address] 00349- 3390 Jul, Closed nondisplaced fracture of second metatarsal bone of left foot, initial encounter S92.325A and Closed nondisplaced fracture of third metatarsal bone of left foot, initial encounter S92.335A [facility] [id number] [place] [address] 39047- 7279 Jul, [facility] [id number] [place] [address] 13466- 0422 20 Jul, 2017 Closed nondisplaced fracture of second metatarsal bone of left foot, initial encounter S92.325A ; Acute left ankle pain M25.572 ; Acute midline low back pain without sciatica M54.5 and Seasonal allergic rhinitis, unspecified allergic rhinitis trigger J30.2 [facility] [id number] [place] [address] 41637- 9911 Jul, [facility] [id number] [place] [address] 73834- 8898 Jul, [facility] [id number] [place] [address] 34444- 7753 15 Jul, 2017 [facility] [id number] [place] [address] 78532- 8194 15 Jul, 2017 Frequent falls R29.6 [facility] [id number] [place] [address] 39784- 0137 14 Jul, 2017 Frequent falls R29.6 [facility] [id number] [place] [address] 79727- 4163 07 Jul, 2017 Severe episode of recurrent major depressive disorder, without psychotic features F33.2 ; Anxiety, generalized F41.1 and Borderline personality disorder in adult F60.3 [facility] [id number] [place] [address] 86554- 8040 07 Jul, 2017 Chronic pain syndrome G89.4 [facility] [id number] [place] [address] 18088- 5973 07 Jul, 2017 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 [facility] [id number] [place] [address] 23764- 1495 Jul, [facility] [address] 93183- 0833 Jul, Type 2 diabetes mellitus with diabetic polyneuropathy E11.42 [facility] [facility] [address] 82600- 4894 Jun, 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 and Thrush B37.0 [facility] [facility] [address] 41762- 6694 Jun, Severe episode of recurrent major depressive disorder, without psychotic features F33.2 ; Anxiety, generalized F41.1 and Borderline personality disorder in adult F60.3 [facility] [facility] [address] 13466- 7906 Jun, Severe episode of recurrent major depressive disorder, without psychotic features F33.2 ; Anxiety, generalized F41.1 and Borderline personality disorder in adult F60.3 [facility] [facility] [address] 65080- 9117 Jun, Frequent falls R29.6 ; Bronchitis J40 ; BMI 40.0-44.9, adult Z68.41 and Coccygeal pain, acute M53.3 [facility] [id number] [place] [address] 25967- 6637 Jun, [facility] [id number] [place] [address] 69714 -4600 Jun, [facility] [address] 02317- 4857 Jun, [facility] [address] 92886- 2680 Jun, Dental caries, unspecified K02.9 [facility] [id number] [place] [address] 03786- 3526 Jun, Acute non-recurrent maxillary sinusitis J01.00 and BMI 40.0- 44.9, adult Z68.41 [facility] [id number] [place] [address] 69142- 3095 Jun, [facility] [id number] [place] [address] 72161- 5630 Jun, Severe episode of recurrent major depressive disorder, without psychotic features F33.2 ; Anxiety, generalized F41.1 and Borderline personality disorder in adult F60.3 [facility] [id number] [place] [address] 05550- 7716 11 Jun, 2017 Closed nondisplaced fracture of third metatarsal bone of left foot with routine healing, subsequent encounter S92.335D ; Closed nondisplaced fracture of second metatarsal bone of left foot with routine healing, subsequent encounter S92.325D and Closed nondisplaced fracture of fourth metatarsal bone of left foot with routine healing, subsequent encounter S92.345D [facility] [id number] [place] [address] 24041- 9900 Jun, Severe episode of recurrent major depressive disorder, without psychotic features F33.2 ; Anxiety, generalized F41.1 and Borderline personality disorder in adult F60.3 [facility] [id number] [place] [address] 42047- 1562 Jun, [facility] [id number] [address]- 3982 Jun, [facility] [id number] [place] [address] 68246- 0491 Jun, [facility] [id number] [place] [address] 28954- 7375 Jun, [facility] [id number] [place] [address] 73298- 4572 Jun, [facility] [id number] [place] [address] 65907- 0925 Jun, Anxiety F41.9 [facility] [id number] [address]- 6100 Jun, [facility] [id number] [place] [address] 09198- 9606 Jun, [facility] [id number] [place] [address] 18613- 2730 Jun, Type 2 diabetes mellitus with diabetic autonomic (poly) neuropathy E11.43 [facility] [id number] [place] [address] 13498- 5481 Jun, Severe episode of recurrent major depressive disorder, without psychotic features F33.2 ; Anxiety, generalized F41.1 and Borderline personality disorder in adult F60.3 [address] [address] [id number] [place] [address] 51573- 2736 Jun, Type 2 diabetes mellitus with diabetic autonomic (poly) neuropathy E11.43 and Chronic pain syndrome G89.4 [place] [id number] [place] [address] 36308- 3448 May, Recent urinary tract infection Z87.440 ; Deliberate self- cutting Z72.89 ; Chest discomfort R07.89 ; BMI 40.0-44.9, adult Z68.41 and Worried well Z71.1 [facility] [facility] [id number] [place] [address] 01194- 5959 May, Severe episode of recurrent major depressive disorder, without psychotic features F33.2 ; Anxiety, generalized F41.1 and Borderline personality disorder in adult F60.3 [facility] [address] [address]- 0226 May, [facility] [id number] [place] [address] 47927- 5549 May, [id number] [place] [address] 55690- 4999 May, Type 2 diabetes mellitus with diabetic autonomic (poly) neuropathy E11.43 [facility] [id number] [place] [address] 50853- 6495 May, Severe episode of recurrent major depressive disorder, without psychotic features F33.2 ; Anxiety, generalized F41.1 and Borderline personality disorder in adult F60.3 [facility] [id number] [place] [address] 97948- 7074 May, [facility] [facility] [address] 98894- 3465 May, Type 2 diabetes mellitus with diabetic autonomic (poly) neuropathy E11.43 ; Multiple neurological symptoms R29.90 ; Dysuria R30.0 ; Tobacco abuse Z72.0 ; Right hip pain M25.551 ; Anxiety F41.9 ; Gastritis determined by endoscopy K29.70 ; Chronic pain syndrome G89.4 ; Acute non- recurrent maxillary sinusitis J01.00 ; Self mutilating behavior Z72.89 and BMI 40.0-44.9, adult Z68.41 [facility] [facility] [address] 33901- 3211 May, Severe episode of recurrent major depressive disorder, without psychotic features F33.2 ; Anxiety, generalized F41.1 and Borderline personality disorder in adult F60.3 [facility] [facility] [address] 58002- 3888 Apr, [facility] [facility] [address] 30480- 4823 Apr, [facility] [address] 92552 -5534 Apr, [facility] [address] 11560 -4590 Apr, Aspiration pneumonia of right lower lobe, unspecified aspiration pneumonia type J69.0 [facility] [facility] [address] 12074- 8894 Apr, Severe episode of recurrent major depressive disorder, without psychotic features F33.2 ; Anxiety, generalized F41.1 and Borderline personality disorder in adult F60.3 [facility] [facility] [address] 64108- 1079 Apr, [facility] [id number] [place] [address] 30748- 3124 Apr, Chronic pain syndrome G89.4 [facility] [id number] [place] [address] 51036- 8391 21 Apr, 2017 Severe episode of recurrent major depressive disorder, without psychotic features F33.2 ; Anxiety, generalized F41.1 and Borderline personality disorder in adult F60.3 [facility] [id number] [place] [address] 09043- 5070 16 Apr, 2017 Severe episode of recurrent major depressive disorder, without psychotic features F33.2 ; Anxiety, generalized F41.1 and Borderline personality disorder in adult F60.3 [facility] [id number] [place] [address] 04017- 9818 16 Apr, 2017 Closed nondisplaced fracture of third metatarsal bone of left foot with routine healing, subsequent encounter S92.335D ; Closed nondisplaced fracture of fourth metatarsal bone of left foot with routine healing, subsequent encounter S92.345D and Closed nondisplaced fracture of second metatarsal bone of left foot with routine healing, subsequent encounter S92.325D [facility] [id number] [place] [address] 53013- 6938 16 Apr, 2017 [facility] [id number] [place] [address] 13057- 5771 15 Apr, 2017 [facility] [id number] [place] [address] 39478- 1950 14 Apr, 2017 [facility] [id number] [place] [address] 48201- 6921 13 Apr, 2017 Screening breast examination Z12.31 [facility] [id number] [place] [address] 85786- 0213 09 Apr, 2017 [facility] [id number] [place] [address] 25402- 8350 Apr, Type 2 diabetes mellitus with diabetic autonomic (poly) neuropathy E11.43 [facility] [id number] [place] [address] 51975- 6531 Apr, Severe episode of recurrent major depressive disorder, without psychotic features F33.2 ; Anxiety, generalized F41.1 and Borderline personality disorder in adult F60.3 [facility] [id number] [place] [address] 77152- 0856 Apr, Type 2 diabetes mellitus with diabetic autonomic (poly) neuropathy E11.43 ; Chronic pain syndrome G89.4 and Anxiety F41.9 [facility] [id number] [place] [address] 51585 -1153 Apr, BMI 45.0-49.9, adult Z68.42 [facility] [id number] [place] [address] 82853 -3229 Apr, Avulsion of toenail, initial encounter S91.209A and Acute non-recurrent maxillary sinusitis J01.00 [facility] [id number] [place] [address] 59220- 3052 Apr, [facility] [id number] [place] [address] 38610- 1430 Mar, [facility] [id number] [place] [address] 53693- 7747 Mar, Severe episode of recurrent major depressive disorder, without psychotic features F33.2 ; Anxiety, generalized F41.1 and Borderline personality disorder in adult F60.3 [facility] [id number] [place] [address] 09072- 8439 Mar, [facility] [id number] [place] [address] 94497- 0685 Mar, [facility] [id number] [place] [address] 42194- 2377 Mar, [facility] [id number] [place] [address] 36741- 9727 Mar, Seizure disorder G40.909 [facility] [id number] [place] [address] 08864- 5612 Mar, [facility] [id number] [place] [address] 77938- 8239 Mar, [facility] [id number] [place] [address] 48784 -2635 Mar, Left foot pain M79.672 ; Stage 3 chronic kidney disease N18.3 and Closed nondisplaced fracture of second metatarsal bone of left foot, initial encounter S92.325A [facility] [id number] [place] [address] 57449- 2167 Mar, Severe episode of recurrent major depressive disorder, without psychotic features F33.2 and Anxiety, generalized F41.1 [facility] [id number] [place] [address] 69162- 3874 Mar, [facility] [id number] [place] [address] 58827- 7072 Mar, Closed nondisplaced fracture of second metatarsal bone of left foot, initial encounter S92.325A and Closed nondisplaced fracture of third metatarsal bone of left foot, initial encounter S92.335A [facility] [id number] [place] [address] 24048- 6997 Mar, Seizure disorder G40.909 [facility] [id number] [place] [address] 77359- 5454 Mar, [facility] [id number] [place] [address] 81335- 3544 Mar, [facility] [id number] [place] [address] 49794- 1017 Mar, [facility] [id number] [place] [address] 96786- 5509 Mar, [facility] [id number] [place] [address] 74743- 8020 Mar, High risk sexual behavior Z72.51 [facility] [id number] [place] [address] 63481- 8252 Mar, Severe episode of recurrent major depressive disorder, without psychotic features F33.2 and Anxiety, generalized F41.1 [facility] [id number] [place] [address] 92605- 2318 Mar, Anxiety F41.9 and Type 2 diabetes mellitus with diabetic autonomic (poly)neuropathy E11.43 [facility] [id number] [place] [address] 36694- 6595 Mar, Anxiety F41.9 [facility] [facility] [id number] [place] [address] 16222- 0807 Mar, High risk sexual behavior Z72.51 [facility] [id number] [place] [address] 09140- 1070 Mar, Chronic pain syndrome G89.4 [facility] [id number] [place] [address] 91111- 9984 Mar, Type 2 diabetes mellitus with diabetic autonomic (poly) neuropathy E11.43 [facility] [id number] [place] [address] 02401- 8951 Mar, [facility] [id number] [place] [address] 54936- 2308 Mar, Closed nondisplaced fracture of second metatarsal bone of left foot, initial encounter S92.325A ; Chronic pain syndrome G89.4 ; Closed nondisplaced fracture of third metatarsal bone of left foot, initial encounter S92.335A ; Acute left ankle pain M25.572 and Type 2 diabetes mellitus with diabetic autonomic (poly)neuropathy E11.43 [facility] [id number] [place] [address] 51750- 2387 Mar, [facility] [id number] [place] [address] 47159- 6932 Mar, [facility] [id number] [place] [address] 82014- 0310 Mar, Severe episode of recurrent major depressive disorder, without psychotic features F33.2 and Anxiety, generalized F41.1 [facility] [id number] [place] [address] 89375- 0671 27 Feb, 2017 [facility] [id number] [place] [address] 10067- 1685 26 Feb, 2017 Renal insufficiency N28.9 [facility] [id number] [place] [address] 24276- 5831 Feb, [facility] [id number] [place] [address] 56192- 9984 26 Feb, 2017 Severe episode of recurrent major depressive disorder, without psychotic features F33.2 and Anxiety, generalized F41.1 [facility] [id number] [place] [address] 87972- 5780 25 Feb, 2017 [facility] [id number] [place] [address] 62935- 1295 22 Feb, 2017 [facility] [id number] [place] [address] 65509- 2140 20 Feb, 2017 Renal insufficiency N28.9 [facility] [id number] [place] [address] 05547- 9218 19 Feb, 2017 [facility] [id number] [place] [address] 56755 -1423 18 Feb, 2017 [facility] [id number] [place] [address] 10784- 6850 14 Feb, 2017 [facility] [id number] [place] [address] 40806- 8416 13 Feb, 2017 Severe episode of recurrent major depressive disorder, without psychotic features F33.2 and Anxiety, generalized F41.1 [facility] [id number] [place] [address] 07750- 8400 13 Feb, 2017 Closed nondisplaced fracture of second metatarsal bone of left foot, initial encounter S92.325A ; Chronic pain syndrome G89.4 ; Closed nondisplaced fracture of third metatarsal bone of left foot, initial encounter S92.335A ; Left hip pain M25.552 and Stage 3 chronic kidney disease N18.3 [facility] [address] [id number] [address] 20[address] Feb, [facility] [id number] [place] [address] 15926- 9716 Feb, [facility] [id number] [place] [address] 01660- 4470 Feb, Closed nondisplaced fracture of second metatarsal bone of left foot, initial encounter S92.325A and Closed nondisplaced fracture of third metatarsal bone of left foot, initial encounter S92.335[address] [place] [id number] [place] [address] 60946- 9999 Feb, [facility] [id number] [place] [address] 35977- 0479 Feb, Anxiety F41.9 [facility] [id number] [place] [address] 21322- 5526 Feb, [facility] [id number] [place] [address] 91627- 3177 Feb, Chronic pain syndrome G89.4 [facility] [id number] [place] [address] 07503- 9034 Feb, Left foot pain M79.672 ; Closed nondisplaced fracture of second metatarsal bone of left foot, initial encounter S92.325A ; Closed nondisplaced fracture of third metatarsal bone of left foot, initial encounter S92.335A and Oral infection K12.2 [facility] [id number] [place] [address] 06122- 1992 Feb, [facility] [id number] [place] [address] 20504- 9933 Jan, [facility] [id number] [place] [address] 11571- 3618 Jan, Type 2 diabetes mellitus with diabetic autonomic (poly) neuropathy E11.43 and Congestive heart failure, unspecified congestive heart failure chronicity, unspecified congestive heart failure type I50.9 [place] [id number] [place] [address] 85715- 7656 Jan, Congestive heart failure, unspecified congestive heart failure chronicity, unspecified congestive heart failure type I50.9 and Stage 3 chronic kidney disease N18.3 [place] [id number] [place] [address] 56994- 0511 Jan, Stage 3 chronic kidney disease N18.3 ; Edema of both legs R60.0 ; Chronic congestive heart failure, unspecified congestive heart failure type I50.9 ; Acute low back pain without sciatica, unspecified back pain laterality M54.5 ; Chronic nausea R11.0 and Primary insomnia F51.01 [place] [id number] [place] [address] 40777- 0220 Jan, Severe episode of recurrent major depressive disorder, without psychotic features F33.2 and Anxiety, generalized F41.1 [place] [id number] [place] [address] 74314- 9873 Jan, [place] [id number] [place] [address] 45927- 4843 Jan, [place] [id number] [place] [address] 40462- 0884 Jan, [place] [id number] [place] [address] 87674- 4910 Jan, [place] [id number] [place] [address] 19417- 2987 Jan, Anxiety F41.9 and Severe episode of recurrent major depressive disorder, without psychotic features F33.2 [place] [id number] [place] [address] 62678- 4954 Jan, Type 2 diabetes mellitus with diabetic autonomic (poly) neuropathy E11.43 [place] [id number] [place] [address] 10536- 1872 Jan, Severe episode of recurrent major depressive disorder, without psychotic features F33.2 and Type 2 diabetes mellitus with diabetic autonomic (poly)neuropathy E11.43 [place] [id number] [place] [address] 98842- 8979 Jan, [place] [address] 45675- 1247 Jan, [place] [id number] [place] [address] 90282- 0063 Jan, Stage 3 chronic kidney disease N18.3 ; Seizure disorder G40.909 ; Edema of both legs R60.0 and Blister (nonthermal), right foot, initial encounter S90.821A [place] [id number] [place] [address] 35263- 9414 Jan, Severe episode of recurrent major depressive disorder, without psychotic features F33.2 and Anxiety, generalized F41.1 [place] [id number] [place] [address] 45245- 7189 Jan, Severe episode of recurrent major depressive disorder, without psychotic features F33.2 and Anxiety, generalized F41.1 [place] [id number] [place] [address] 00536- 3153 Jan, [place] [id number] [place] [address] 72731- 7081 Jan, Anxiety F41.9 and Primary insomnia F51.01 [place] [id number] [place] [address] 95812- 5231 Jan, Type 2 diabetes mellitus with diabetic autonomic (poly) neuropathy E11.43 ; longterm current use of insulin Z79.4 ; Stage 3 chronic kidney disease N18.3 ; Chronic pain syndrome G89.4 ; Swelling of mandible R22.0 and Seizure disorder G40.909 [place] [address] [place] [address]- 4291 Jan, [place] [id number] [place] [address] 40542- 5059 Jan, [place] [id number] [place] [address] 59591- 7443 Dec, Severe episode of recurrent major depressive disorder, without psychotic features F33.2 and Anxiety, generalized F41.1 [place] [id number] [place] [address] 11620- 7331 Dec, Diarrhea, unspecified type R19.7 ; Gastritis determined by endoscopy K29.70 ; Dysuria R30.0 ; Unspecified abdominal pain R10.9 ; Unspecified fall W19.XXXA and Need for assistance with personal care Z74.1 [place] [id number] [place] [address] 69134- 7911 Dec, Severe episode of recurrent major depressive disorder, without psychotic features F33.2 and Anxiety, generalized F41.1 [place] [id number] [place] [address] 65094- 1312 Dec, Diarrhea, unspecified type R19.7 ; Dysuria R30.0 ; Unspecified abdominal pain R10.9 ; Gastritis determined by endoscopy K29.70 ; Unspecified fall W19.XXXA and Need for assistance with personal care Z74.1 [place] [id number] [place] [address] 41137- 9747 Dec, [place] [id number] [place] [address] 20706- 6420 Dec, [place] [id number] [place] [address] 35327- 4969 Dec, Type 2 diabetes mellitus with diabetic autonomic (poly) neuropathy E11.43 [place] [id number] [place] [address] 45303- 6375 Dec, Severe episode of recurrent major depressive disorder, without psychotic features F33.2 and Anxiety,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
--- OUTSIDE RECORDS SUMMARY | 2017-12-04 20:34 | XMS REPORT ---
Author Author MIRZA MARTINO Organization [facility] Address [address] [place] [address] Care Team Providers Care Policy And Planning Manager Name Role Phone HAIMLindsey MIRZA Unavailable PROBLEMS Type Condition ICD9-CM Code BMV92-CF Code Onset Dates Condition Status SNOMED Code Problem Postural hypotension I95.1 Active 92716987 Problem Seizure disorder G40.909 Active 327998823 Problem Seasonal allergic rhinitis, unspecified allergic rhinitis trigger J30.2 Active 268667581 Problem Closed nondisplaced fracture of second metatarsal bone of left foot, initial encounter S92.325A Active 14830172 Problem Essential hypertension I10 Active 68356925 Problem Multiple neurological symptoms R29.90 Active 681411723 Problem Port catheter in place Z95.828 Active 627176827 Problem Stage 3 chronic kidney disease N18.3 Active 451943378 Problem Gastritis determined by endoscopy K29.70 Active 6983958 Problem Self-inflicted injury Z72.89 Active 128068391 Problem Borderline personality disorder in adult F60.3 Active 97915982 Problem Chronic congestive heart failure, unspecified congestive heart failure type I50.9 Active 04798113 Problem Chronic pain syndrome G89.4 Active 044000924 Problem Primary insomnia F51.01 Active 6499040 Problem Acquired hypothyroidism E03.9 Active 588548291 Problem Gastroparesis K31.84 Active 796393536 Problem Severe episode of recurrent major depressive disorder, without psychotic features F33.2 Active 22879641 Problem Anxiety, generalized F41.1 Active 67308621 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 Active 277504411 Problem Type 2 diabetes mellitus with diabetic polyneuropathy E11.42 Active 25838429 Problem Tobacco abuse Z72.0 Active 755907495 Problem Noncompliance with diabetes treatment Z91.19 Active 6507293 ALLERGIES No Information ENCOUNTERS Encounter Location Date Diagnosis [facility] [address], [place] [address] October, [facility] [address], [place] [address] October, [facility] [id number] [place] [address] 110100- 3296 October, [facility] [address] [id number] Sep, [facility] [id number] [place] [address] 30709- 7658 Sep, [facility] [id number] [place] [address] 04617- 4028 Sep, [facility] [id number] [place] [address] 26392- 8378 Sep, Throat pain R07.0 ; BMI 40.0-44.9, adult Z68.41 and Chronic pain syndrome G89.4 [facility] [id number] [place] [address] 85932- 2690 Sep, [facility] [id number] [place] [address] 12845- 8451 Sep, [facility] [id number] [place] [address] 66757- 3492 Sep, [facility] [id number] [place] [address] 87671- 6992 Sep, Anxiety, generalized F41.1 [facility] [address], [place] [address] 164[address] Sep, [facility] [id number] [place] [address] 03355- 9633 Sep, Stage 3 chronic kidney disease N18.3 [facility] [address], [place] [address] 9[address] Sep, Stage 3 chronic kidney disease N18.3 and Chronic pain syndrome G89.4 [facility] [id number] [address] Sep, Severe episode of recurrent major depressive disorder, without psychotic features F33.2 ; Anxiety, generalized F41.1 and Borderline personality disorder in adult F60.3 [facility] [id number] [place] [address] 78071- 7350 Sep, Chronic pain syndrome G89.4 ; Anxiety, generalized F41.1 and BMI 45.0-49.9, adult Z68.42 [facility] [id number] [place] [address] 97684- 2138 Sep, [facility] [id number] [place] [address] 75113- 8386 Sep, [facility] [id number] [place] [address] 41630- 4353 Sep, Severe episode of recurrent major depressive disorder, without psychotic features F33.2 ; Anxiety, generalized F41.1 and Borderline personality disorder in adult F60.3 [facility] [id number] [place] [address] 90807- 0625 Sep, [facility] [id number] [place] [address] 87747 -7188 Aug, Dysuria R30.0 ; Type 2 diabetes mellitus with diabetic polyneuropathy E11.42 ; Oral abscess K12.2 and BMI 40.0-44.9, adult Z68.41 [facility] [id number] [place] [address] 96654- 1270 30 Aug, 2017 [facility] [id number] [place] [address] 00940- 5163 Aug, [facility] [id number] [place] [address] 86763- 9924 Aug, [facility] [id number] [place] [address] 30700- 1859 Aug, [facility] [id number] [place] [address] 47246- 9907 27 Aug, 2017 Severe episode of recurrent major depressive disorder, without psychotic features F33.2 ; Anxiety, generalized F41.1 and Borderline personality disorder in adult F60.3 [facility] [id number] [place] [address] 30449- 6386 22 Aug, 2017 [facility] [id number] [place] [address] 34870- 3889 20 Aug, 2017 [facility] [id number] [place] [address] 92630- 4619 19 Aug, 2017 Severe episode of recurrent major depressive disorder, without psychotic features F33.2 ; Anxiety, generalized F41.1 and Borderline personality disorder in adult F60.3 [facility] [id number] [place] [address] 78838 -9374 17 Aug, 2017 [facility] [id number] [place] [address] 85055- 1807 15 Aug, 2017 [facility] [id number] [place] [address] 96578- 7685 14 Aug, 2017 [facility] [id number] [place] [address] 60995 -4023 14 Aug, 2017 Dysuria R30.0 ; Dental infection K04.7 ; Acute cystitis with hematuria N30.01 and BMI 45.0-49.9, adult Z68.42 [facility] [id number] [place] [address] 93338- 7796 14 Aug, 2017 Severe episode of recurrent major depressive disorder, without psychotic features F33.2 ; Anxiety, generalized F41.1 and Borderline personality disorder in adult F60.3 [facility] [id number] [place] [address] 51104- 9024 09 Aug, 2017 [facility] [id number] [place] [address] 96754- 8841 08 Aug, 2017 Closed nondisplaced fracture of second metatarsal bone of left foot, initial encounter S92.325A and Chronic pain syndrome G89.4 [facility] [address], [place] [address] 9851 08 Aug, 2017 Type 2 diabetes mellitus with diabetic polyneuropathy E11.42 [facility] [address], [place] [address] 79[address] 08 Aug, 2017 Severe episode of recurrent major depressive disorder, without psychotic features F33.2 ; Anxiety, generalized F41.1 and Borderline personality disorder in adult F60.3 [facility] [address], [place] [address] 8048 07 Aug, 2017 [facility] [address], [place] [address] Aug, [facility] [address], [place] [address]- 6477 Aug, [facility] [address], [place] [address] 0254 Aug, [facility] [address], [place] [address] 5438 Aug, [facility] [address], [place] [address] 2529 Jul, [facility] [address], [place] [address] 6824 Jul, [facility] [id number] [address] 3[address] Jul, Severe episode of recurrent major depressive disorder, without psychotic features F33.2 ; Anxiety, generalized F41.1 and Borderline personality disorder in adult F60.3 [facility] [id number] [address] 9470 Jul, Type 2 diabetes mellitus with diabetic polyneuropathy E11.42 [facility] [id number], [place] [address] 3549 Jul, Closed nondisplaced fracture of second metatarsal bone of left foot, initial encounter S92.325A and Closed nondisplaced fracture of third metatarsal bone of left foot, initial encounter S92.335A [facility] [id number] [place] [address] 55982- 7704 Jul, [facility] [id number] [place] [address] 82696- 5520 20 Jul, 2017 Closed nondisplaced fracture of second metatarsal bone of left foot, initial encounter S92.325A ; Acute left ankle pain M25.572 ; Acute midline low back pain without sciatica M54.5 and Seasonal allergic rhinitis, unspecified allergic rhinitis trigger J30.2 [facility] [id number] [place] [address] 18273- 9864 Jul, [facility] [id number] [place] [address] 62887- 3569 19 Jul, 2017 [facility] [id number] [place] [address] 96693- 7057 15 Jul, 2017 [facility] [id number] [place] [address] 79320- 5709 15 Jul, 2017 Frequent falls R29.6 [facility] [id number] [place] [address] 62370- 6936 14 Jul, 2017 Frequent falls R29.6 [facility] [id number] [place] [address] 43016- 9267 07 Jul, 2017 Severe episode of recurrent major depressive disorder, without psychotic features F33.2 ; Anxiety, generalized F41.1 and Borderline personality disorder in adult F60.3 [facility] [id number] [place] [address] 28146- 8615 07 Jul, 2017 Chronic pain syndrome G89.4 [facility] [id number] [place] [address] 69447- 7713 07 Jul, 2017 [facility] current use of insulin Z79.4 [facility] [id number] [place] [address] 82648- 5854 Jul, [facility] [id number] [place] [address] 24223- 9133 Jul, Type 2 diabetes mellitus with diabetic polyneuropathy E11.42 [facility] [id number] [place] [address] 60280- 2018 Jun, 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 and Thrush B37.0 [facility] [address] 23681- 6956 Jun, Severe episode of recurrent major depressive disorder, without psychotic features F33.2 ; Anxiety, generalized F41.1 and Borderline personality disorder in adult F60.3 [facility] [address] 28220- 8960 Jun, Severe episode of recurrent major depressive disorder, without psychotic features F33.2 ; Anxiety, generalized F41.1 and Borderline personality disorder in adult F60.3 [facility] [address] 23684- 5274 Jun, Frequent falls R29.6 ; Bronchitis J40 ; BMI 40.0-44.9, adult Z68.41 and Coccygeal pain, acute M53.3 [facility] [id number] [place] [address] 12477- 9695 Jun, [facility] [id number] [place] [address] 49232 -6902 Jun, [facility] [address] 87820- 0627 Jun, [facility] [place] [id number] [place] [address] 29495- 4444 Jun, Dental caries, unspecified K02.9 [facility] [id number] [place] [address] 99315- 7288 Jun, Acute non-recurrent maxillary sinusitis J01.00 and BMI 40.0- 44.9, adult Z68.41 [facility] [address], [place] [address]- 4634 Jun, [facility] [id number] [place] [address] 62076- 8660 Jun, Severe episode of recurrent major depressive disorder, without psychotic features F33.2 ; Anxiety, generalized F41.1 and Borderline personality disorder in adult F60.3 [facility] [address] [place] [address] 62701- 5111 Jun, Closed nondisplaced fracture of third metatarsal bone of left foot with routine healing, subsequent encounter S92.335D ; Closed nondisplaced fracture of second metatarsal bone of left foot with routine healing, subsequent encounter S92.325D and Closed nondisplaced fracture of fourth metatarsal bone of left foot with routine healing, subsequent encounter S92.345D [facility] [address], [place] [address]- 2510 11 Jun, 2017 Severe episode of recurrent major depressive disorder, without psychotic features F33.2 ; Anxiety, generalized F41.1 and Borderline personality disorder in adult F60.3 [facility] [address], [place] [address]- 4943 Jun, [facility] [id number] [place] [address] 18603- 1660 Jun, [facility] [address], [place] [address]- 8643 Jun, [facility] [id number] [place] [address] 09858- 2631 Jun, [facility] [address], [place] [address]- 5599 Jun, [facility] [id number] [place] [address] 56289- 5727 Jun, Anxiety F41.9 [facility] [address], [place] [address]- 0382 Jun, [facility] [id number] [place] [address] 11019- 2034 Jun, [facility] [place] [id number] [place] [address] 22431- 1732 Jun, Type 2 diabetes mellitus with diabetic autonomic (poly) neuropathy E11.43 [facility] [id number] [place] [address] 37732- 7031 Jun, Severe episode of recurrent major depressive disorder, without psychotic features F33.2 ; Anxiety, generalized F41.1 and Borderline personality disorder in adult F60.3 [facility] [id number] [place] [address] 43967- 5691 Jun, Type 2 diabetes mellitus with diabetic autonomic (poly) neuropathy E11.43 and Chronic pain syndrome G89.4 [facility] [id number] [place] [address] 80910- 3886 20 May, 2017 Recent urinary tract infection Z87.440 ; Deliberate self- cutting Z72.89 ; Chest discomfort R07.89 ; BMI 40.0-44.9, adult Z68.41 and Worried well Z71.1 [facility] [id number] [place] [address] 86203- 6983 19 May, 2017 Severe episode of recurrent major depressive disorder, without psychotic features F33.2 ; Anxiety, generalized F41.1 and Borderline personality disorder in adult F60.3 [facility] [id number] [place] [address] 95220- 3174 18 May, 2017 [facility] [id number] [place] [address] 60923- 0628 May, [facility] [id number] [place] [address] 26161- 9926 May, Type 2 diabetes mellitus with diabetic autonomic (poly) neuropathy E11.43 [facility] [id number] [place] [address] 30854- 0916 May, Severe episode of recurrent major depressive disorder, without psychotic features F33.2 ; Anxiety, generalized F41.1 and Borderline personality disorder in adult F60.3 [facility] [id number] [place] [address] 44813- 7669 May, [facility] [id number] [place] [address] 54085- 1787 May, Type 2 diabetes mellitus with diabetic autonomic (poly) neuropathy E11.43 ; Multiple neurological symptoms R29.90 ; Dysuria R30.0 ; Tobacco abuse Z72.0 ; Right hip pain M25.551 ; Anxiety F41.9 ; Gastritis determined by endoscopy K29.70 ; Chronic pain syndrome G89.4 ; Acute non- recurrent maxillary sinusitis J01.00 ; Self mutilating behavior Z72.89 and BMI 40.0-44.9, adult Z68.41 [facility] [place] [id number] [place] [address] 64286- 9790 May, Severe episode of recurrent major depressive disorder, without psychotic features F33.2 ; Anxiety, generalized F41.1 and Borderline personality disorder in adult F60.3 [place] [id number] [place] [address] 63589- 9226 Apr, [place] [address] 12779- 2532 Apr, [facility] [id number] [place] [address] 74919 -4888 Apr, [facility] [id number] [place] [address] 70675 -8788 Apr, Aspiration pneumonia of right lower lobe, unspecified aspiration pneumonia type J69.0 [facility] [id number] [place] [address] 87983- 1030 Apr, Severe episode of recurrent major depressive disorder, without psychotic features F33.2 ; Anxiety, generalized F41.1 and Borderline personality disorder in adult F60.3 [facility] [place] [id number] [place] [address] 93385- 7805 Apr, [facility] [place] [address] [place] [address]- 1223 Apr, Chronic pain syndrome G89.4 [place] [facility] [address] 38398- 0051 Apr, Severe episode of recurrent major depressive disorder, without psychotic features F33.2 ; Anxiety, generalized F41.1 and Borderline personality disorder in adult F60.3 [facility] [facility] [address] 24768- 0483 16 Apr, 2017 Severe episode of recurrent major depressive disorder, without psychotic features F33.2 ; Anxiety, generalized F41.1 and Borderline personality disorder in adult F60.3 [place] [address] 32371- 2375 16 Apr, 2017 Closed nondisplaced fracture of third metatarsal bone of left foot with routine healing, subsequent encounter S92.335D ; Closed nondisplaced fracture of fourth metatarsal bone of left foot with routine healing, subsequent encounter S92.345D and Closed nondisplaced fracture of second metatarsal bone of left foot with routine healing, subsequent encounter S92.325D [facility] [place] [id number] [place] [address] 26458- 6627 16 Apr, 2017 [place] [address] 14648- 4158 15 Apr, 2017 [place] [id number] [place] [address] 21811- 1167 14 Apr, 2017 [place] [address] 42689- 3923 13 Apr, 2017 Screening breast examination Z12.31 [place] [address] 05278- 0540 09 Apr, 2017 [place] [address] 53230- 9291 07 Apr, 2017 Type 2 diabetes mellitus with diabetic autonomic (poly) neuropathy E11.43 [place] [address] 26051- 8377 Apr, Severe episode of recurrent major depressive disorder, without psychotic features F33.2 ; Anxiety, generalized F41.1 and Borderline personality disorder in adult F60.3 [place] [address] 62446- 6203 Apr, Type 2 diabetes mellitus with diabetic autonomic (poly) neuropathy E11.43 ; Chronic pain syndrome G89.4 and Anxiety F41.9 [facility] [address] 59820 -4345 Apr, BMI 45.0-49.9, adult Z68.42 [facility] [address] 52778 -5206 Apr, Avulsion of toenail, initial encounter S91.209A and Acute non-recurrent maxillary sinusitis J01.00 [place] [address] 42940- 7807 Apr, [place] [address] 04560- 0907 Mar, [place] [address] 14668- 7335 Mar, Severe episode of recurrent major depressive disorder, without psychotic features F33.2 ; Anxiety, generalized F41.1 and Borderline personality disorder in adult F60.3 [place] [address] 45075- 8853 Mar, [place] [address] 39280- 4528 Mar, [place] [address] 09304- 9659 Mar, [place] [address] 90698- 9552 Mar, Seizure disorder G40.909 [place] [address] 35139- 4046 Mar, [facility] [id number] [place] [address] 61566- 4040 Mar, [facility] [id number] [place] [address] 77688 -4799 Mar, Left foot pain M79.672 ; Stage 3 chronic kidney disease N18.3 and Closed nondisplaced fracture of second metatarsal bone of left foot, initial encounter S92.325A [facility] [id number] [place] [address] 59981- 2205 Mar, Severe episode of recurrent major depressive disorder, without psychotic features F33.2 and Anxiety, generalized F41.1 [place] [id number] [place] [address] 25479- 1109 Mar, [facility] [id number] [place] [address] 02270- 7978 Mar, Closed nondisplaced fracture of second metatarsal bone of left foot, initial encounter S92.325A and Closed nondisplaced fracture of third metatarsal bone of left foot, initial encounter S92.335A [facility] [place] [id number] [place] [address] 81014- 7150 Mar, Seizure disorder G40.909 [facility] [id number] [place] [address] 95008- 3875 Mar, [facility] [id number] [place] [address] 15643- 3662 Mar, [facility] [id number] [place] [address] 13869- 7430 Mar, [facility] [id number] [place] [address] 71981- 3167 Mar, [facility] [id number] [place] [address] 26864- 2906 Mar, High risk sexual behavior Z72.51 [facility] [id number] [place] [address] 56041- 7743 Mar, Severe episode of recurrent major depressive disorder, without psychotic features F33.2 and Anxiety, generalized F41.1 [facility] [id number] [place] [address] 80151- 9137 Mar, Anxiety F41.9 and Type 2 diabetes mellitus with diabetic autonomic (poly)neuropathy E11.43 [facility] [place] [id number] [place] [address] 50066- 5036 Mar, Anxiety F41.9 [facility] [place] [id number] [place] [address] 47869- 4310 Mar, High risk sexual behavior Z72.51 [facility] [place] [id number] [place] [address] 35444- 2909 Mar, Chronic pain syndrome G89.4 [facility] [place] [id number] [place] [address] 38207- 5129 Mar, Type 2 diabetes mellitus with diabetic autonomic (poly) neuropathy E11.43 [facility] [id number] [place] [address] 21335- 6591 Mar, [facility] [id number] [place] [address] 39922- 0267 Mar, Closed nondisplaced fracture of second metatarsal bone of left foot, initial encounter S92.325A ; Chronic pain syndrome G89.4 ; Closed nondisplaced fracture of third metatarsal bone of left foot, initial encounter S92.335A ; Acute left ankle pain M25.572 and Type 2 diabetes mellitus with diabetic autonomic (poly)neuropathy E11.43 [place] [id number] [place] [address] [phone] Mar, [place] [address] [place] [id number] [place] [address] [phone] Mar, [place] [id number] [place] [address] [phone] Mar, Severe episode of recurrent major depressive disorder, without psychotic features F33.2 and Anxiety, generalized F41.1 [facility] [id number] [place] [address] [id number] [phone] 27 Feb, 2017 [facility] [facility] [id number] [place] [address] 45021- 5306 26 Feb, 2017 Renal insufficiency N28.9 [facility] [id number] [place] [address] 96053- 4412 26 Feb, 2017 [facility] [id number] [place] [address] 81007- 4204 26 Feb, 2017 Severe episode of recurrent major depressive disorder, without psychotic features F33.2 and Anxiety, generalized F41.1 [facility] [id number] [place] [address] 95923- 6357 25 Feb, 2017 [facility] [id number] [place] [address] 01197- 2518 22 Feb, 2017 [facility] [id number] [place] [address] 12072- 4546 20 Feb, 2017 Renal insufficiency N28.9 [facility] [id number] [place] [address] 60023- 1696 19 Feb, 2017 [facility] [id number] [place] [address] 78002 -8685 18 Feb, 2017 [facility] [id number] [place] [address] 70691- 6813 14 Feb, 2017 [facility] [id number] [place] [address] 85108- 1968 13 Feb, 2017 Severe episode of recurrent major depressive disorder, without psychotic features F33.2 and Anxiety, generalized F41.1 [facility] [id number] [place] [address] 55175- 1080 13 Feb, 2017 Closed nondisplaced fracture of second metatarsal bone of left foot, initial encounter S92.325A ; Chronic pain syndrome G89.4 ; Closed nondisplaced fracture of third metatarsal bone of left foot, initial encounter S92.335A ; Left hip pain M25.552 and Stage 3 chronic kidney disease N18.3 [facility] [id number] [place] [address] 82499- 0435 Feb, [facility] [id number] [place] [address] 10517- 4121 Feb, [facility] [id number] [place] [address] 87852- 5455 Feb, Closed nondisplaced fracture of second metatarsal bone of left foot, initial encounter S92.325A and Closed nondisplaced fracture of third metatarsal bone of left foot, initial encounter S92.335A [facility] [id number] [place] [address] 96480- 3310 Feb, [facility] [id number] [place] [address] 35177- 8942 Feb, Anxiety F41.9 [facility] [id number] [place] [address] 34196- 3446 Feb, [facility] [id number] [place] [address] 74029- 3873 Feb, Chronic pain syndrome G89.4 [facility] [id number] [place] [address] 14632- 7286 Feb, Left foot pain M79.672 ; Closed nondisplaced fracture of second metatarsal bone of left foot, initial encounter S92.325A ; Closed nondisplaced fracture of third metatarsal bone of left foot, initial encounter S92.335A and Oral infection K12.2 [facility] [id number] [place] [address] 88972- 2152 Feb, [facility] [id number] [place] [address] 89892- 1572 Jan, [facility] [id number] [place] [address] 88517- 6904 Jan, Type 2 diabetes mellitus with diabetic autonomic (poly) neuropathy E11.43 and Congestive heart failure, unspecified congestive heart failure chronicity, unspecified congestive heart failure type I50.9 [facility] [id number] [place] [address] 91795- 9134 Jan, Congestive heart failure, unspecified congestive heart failure chronicity, unspecified congestive heart failure type I50.9 and Stage 3 chronic kidney disease N18.3 [facility] [facility] [address] 77378- 2060 Jan, Stage 3 chronic kidney disease N18.3 ; Edema of both legs R60.0 ; Chronic congestive heart failure, unspecified congestive heart failure type I50.9 ; Acute low back pain without sciatica, unspecified back pain laterality M54.5 ; Chronic nausea R11.0 and Primary insomnia F51.01 [facility] [id number] [place] [address] 01984- 8587 Jan, Severe episode of recurrent major depressive disorder, without psychotic features F33.2 and Anxiety, generalized F41.1 [facility] [id number] [place] [address] 85481- 4683 Jan, [facility] [id number] [place] [address] 26676- 5173 Jan, [facility] [id number] [place] [address] 07049- 8376 Jan, [facility] [id number] [place] [address] 84333- 5916 Jan, [facility] [id number] [place] [address] 11220- 8374 Jan, Anxiety F41.9 and Severe episode of recurrent major depressive disorder, without psychotic features F33.2 [facility] [id number] [place] [address] 40380- 7988 Jan, Type 2 diabetes mellitus with diabetic autonomic (poly) neuropathy E11.43 [facility] [id number] [place] [address] 56947- 5062 Jan, Severe episode of recurrent major depressive disorder, without psychotic features F33.2 and Type 2 diabetes mellitus with diabetic autonomic (poly)neuropathy E11.43 [facility] [id number] [place] [address] 95354- 3621 Jan, [facility] [id number] [place] [address] 32115- 8089 Jan, [facility] [facility] [address] 85872- 7161 Jan, Stage 3 chronic kidney disease N18.3 ; Seizure disorder G40.909 ; Edema of both legs R60.0 and Blister (nonthermal), right foot, initial encounter S90.821A [facility] [id number] [place] [address] 64797- 8593 Jan, Severe episode of recurrent major depressive disorder, without psychotic features F33.2 and Anxiety, generalized F41.1 [facility] [address] 75865- 5633 Jan, Severe episode of recurrent major depressive disorder, without psychotic features F33.2 and Anxiety, generalized F41.1 [facility] [id number] [place] [address] 65808- 8645 Jan, [facility] [id number] [place] [address] 10874- 9660 Jan, Anxiety F41.9 and Primary insomnia F51.01 [facility] [id number] [place] [address] 14723- 3617 Jan, Type 2 diabetes mellitus with diabetic autonomic (poly) neuropathy E11.43 ; [facility] current use of insulin Z79.4 ; Stage 3 chronic kidney disease N18.3 ; Chronic pain syndrome G89.4 ; Swelling of mandible R22.0 and Seizure disorder G40.909 [facility] [id number] [place] [address] 46683- 0716 Jan, [facility] [address] [place] [address]- 3547 Jan, [facility] [id number] [place] [address] 60108- 4245 Dec, Severe episode of recurrent major depressive disorder, without psychotic features F33.2 and Anxiety, generalized F41.1 [facility] [id number] [place] [address] 07993- 2195 Dec, Diarrhea, unspecified type R19.7 ; Gastritis determined by endoscopy K29.70 ; Dysuria R30.0 ; Unspecified abdominal pain R10.9 ; Unspecified fall W19.XXXA and Need for assistance with personal care Z74.1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
--- OUTSIDE RECORDS SUMMARY | 2017-12-04 20:35 | XMS REPORT ---
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 Active 245928398 Problem Recurrent major depressive disorder, remission status unspecified F33.9 Active 29239218 Problem Severe episode of recurrent major depressive disorder, without psychotic features F33.2 Active 85241483 Problem Tobacco abuse Z72.0 Active 051243702 Problem Anxiety, generalized F41.1 Active 12816066 Problem Weakness R53.1 Active 62407096 Problem Stage 3 chronic kidney disease N18.3 Active 854008731 Problem Vaginal bleeding N93.9 Active 794687643 Problem Chronic nausea R11.0 Active 457730314 Problem Right lower quadrant abdominal pain R10.31 Active 149877224 Problem Self-inflicted injury Z72.89 Active 576250383 Problem Noncompliance with diabetes treatment Z91.19 Active 0707106 Problem Unspecified fall W19.XXXA Active 8716480 Problem Type 2 diabetes mellitus with diabetic polyneuropathy E11.42 Active 83075525 Problem Gastritis determined by endoscopy K29.70 Active 8381393 Problem Unspecified abdominal pain R10.9 Active 307648904 Problem Diarrhea, unspecified type R19.7 Active 40614802 Problem Left hip pain M25.552 Active 82853789 Problem Closed nondisplaced fracture of second metatarsal bone of left foot, initial encounter S92.325A Active 14965595 Problem Neck pain M54.2 Active 64948450 Problem Thrush B37.0 Active 15736045 Problem Anxiety F41.9 Active 44201482 Problem Swelling of both lower extremities M79.89 Active 78810320239322299 Problem Essential hypertension I10 Active 71397350 Problem Edema of both legs R60.0 Active 223532556 Problem Acquired hypothyroidism E03.9 Active 210423420 Problem Blister (nonthermal), right foot, initial encounter S90.821A Active 464124516 Problem Congestive heart failure, unspecified congestive heart failure chronicity, unspecified congestive heart failure type I50.9 Active 91434581 Problem Closed nondisplaced fracture of third metatarsal bone of left foot, initial encounter S92.335A Active 682523428 Problem Port catheter in place Z95.828 Active 564816373 Problem Chronic congestive heart failure, unspecified congestive heart failure type I50.9 Active 22185433 Problem Primary insomnia F51.01 Active 3548155 Problem Postural hypotension I95.1 Active 41055147 Problem Screening breast examination Z12.39 Active 257154580 Problem Acute non-recurrent maxillary sinusitis J01.00 Active 87938533 Problem Type 2 diabetes mellitus with diabetic autonomic (poly)neuropathy E11.43 Active 812091790 Problem Syncope, unspecified syncope type R55 Active 385792341 Problem Chronic pain syndrome G89.4 Active 763239235 Problem Acute pain of right shoulder M25.511 Active 15571069 Problem Epigastric pain R10.13 Active 45655800 Problem Seizure disorder G40.909 Active 472652684 Problem Gastroparesis K31.84 Active 322481914 Problem Chronic superficial gastritis without bleeding K29.30 Active 296278281 Problem Seasonal allergic rhinitis, unspecified allergic rhinitis trigger J30.2 Active 023631737 Problem Swelling of mandible R22.0 Active 250730371 ALLERGIES Substance Reaction Event Type Date Status [...] PLAN OF CARE Activity Details Follow Up 2-3 weeks Reason:CHF VITAL SIGNS Height 62 in 2016-08-25 Weight 257.2 lbs 2016-08-25 Temperature 98.4 degrees Fahrenheit 2016-08-25 Heart Rate 80 bpm 2016-08-25 Respiratory Rate 20 2016-08-25 BMI 47.04 kg/m2 2016-08-25 Blood pressure systolic 130 mmHg 2016-08-25 Blood pressure diastolic 88 mmHg 2016-08-25 MEDICATIONS Medication Instructions Dosage Frequency Start Date End Date Duration Status Escitalopram Oxalate 20 mg Orally Once a day 1 tablet 24h 30 Active Promethazine HCl 25 MG Orally 2 times a day 1 tablet as needed 12h 28 days Active Nystatin 093077 UNIT/ML Mouth/Throat Four times a day 4 ml 6h 12 Mar, 2016 Active Chantix 0.5 MG Orally Twice a day 1 tablet 12h Apr, Sep, 30 day(s) Active Oxygen 3L nasal canal Active Zantac 150 MG Orally twice a day 1 tablet 12h 30 day(s) Active Nystatin 309420 UNIT/ML Mouth/Throat Four times a day 4 ml 6h Jul, Aug, 10 days Active Levothyroxine Sodium 75 MCG Orally Once a day 1 tablet 24h Active Luis Fernando Contour Test - In Vitro 3 times a day as directed 8h Jan, Active Temazepam 30 MG Orally Once a day 1 capsule at bedtime as needed 24h Active Alprazolam 1 MG Orally Three times a day must last 28 days 1 tablet Active Tizanidine HCl 4 MG Orally Three times a day 1 tablet as needed 8h Active Nystatin 011190 UNIT/GM Externally Twice a day apply to abdominal fold twice a day 12h Active Gabapentin 800 MG Orally 4 times a day 1 tablet 6h Active Atenolol 50 mg Orally Once a day 2 tablet 24h Active Benadryl Allergy 25 MG Orally Once a day at bedtime 2 tablet as needed Active Humulin R U-500 (Concentrated) 500 UNIT/ML Subcutaneous 3 times a day with meals 70 units Active Furosemide 20 mg Orally Once a day 2 tablets 24h 14 days Active Naproxen 500 MG Orally every 12 hrs 1 tablet as needed 12h 10 Jun, 2016 28 days Active Augmentin 875-125 MG Orally every 12 hrs 1 tablet 12h Jul, Aug, 10 day(s) Active Seroquel XR 50MG TAKE TWO TABLETS BY MOUTH ONCE DAILY AT BEDTIME 28 Active Tylenol Extra Strength 500 MG Orally 3 times a day 2 tablets as needed 8h Active Losartan Potassium-HCTZ 100-25 MG Orally Once a day 1 tablet 24h Active Insulin Syringe 31G X 11/08 Active Potassium Chloride ER 10 MEQ Orally Once [...] (port for IV access) Dr. Hernandez [facility] 08-29-2013 Surgical History partial hysterectomy Surgical History EGD Hospitalization History transfusion given after delivery Hospitalization History Chest pain, uncontrolled Hyperglycemia--[facility]ia [facility] 12/15/15 Hospitalization History Influenza B Hospitalization History pneumonia Hospitalization History [facility] 07/16/16 Hospitalization History for high sugar 07/12
--- OUTSIDE RECORDS SUMMARY | 2017-12-04 20:36 | XMS REPORT ---
Author Author MIRZA MARTINO Organization [facility] Address [address] [place] [address] Care Team Providers Care Folding Machine Operator Name Role Phone HAIMLindsey MIRZA Unavailable PROBLEMS Type Condition ICD9-CM Code [id number] Code Onset Dates Condition Status SNOMED Code Problem Postural hypotension I95.1 Active 43123756 Problem Seizure disorder G40.909 Active 740874604 Problem Seasonal allergic rhinitis, unspecified allergic rhinitis trigger J30.2 Active 738788711 Problem Closed nondisplaced fracture of second metatarsal bone of left foot, initial encounter S92.325A Active 39450841 Problem Essential hypertension I10 Active 92840622 Problem Multiple neurological symptoms R29.90 Active 978102515 Problem Port catheter in place Z95.828 Active 997591113 Problem Stage 3 chronic kidney disease N18.3 Active 475043991 Problem Gastritis determined by endoscopy K29.70 Active 7567888 Problem Self-inflicted injury Z72.89 Active 539263252 Problem Borderline personality disorder in adult F60.3 Active 52916450 Problem Chronic congestive heart failure, unspecified congestive heart failure type I50.9 Active 82474667 Problem Chronic pain syndrome G89.4 Active 603452023 Problem Primary insomnia F51.01 Active 5779967 Problem Acquired hypothyroidism E03.9 Active 314389781 Problem Gastroparesis K31.84 Active 561367136 Problem Severe episode of recurrent major depressive disorder, without psychotic features F33.2 Active 24201183 Problem Anxiety, generalized F41.1 Active 43789139 Problem 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 Active 948676947 Problem Type 2 diabetes mellitus with diabetic polyneuropathy E11.42 Active 79140193 Problem Tobacco abuse Z72.0 Active 416442947 Problem Noncompliance with diabetes treatment Z91.19 Active 1867540 ALLERGIES No Information ENCOUNTERS Encounter Location Date Diagnosis [facility] [address] [address] October, [facility] [id number] [place] [address] 72140- 6630 October, [facility] [id number] [place] [address] 02771- 8949 October, [facility] [id number] [place] [address] 66475- 1619 October, [facility] [id number] [place] [address] 19173- 4903 Sep, Severe episode of recurrent major depressive disorder, without psychotic features F33.2 ; Anxiety, generalized F41.1 and Borderline personality disorder in adult F60.3 [facility] [id number] [place] [address] 22888- 9535 Sep, [facility] [id number] [place] [address] 26132- 9289 Sep, Throat pain R07.0 ; BMI 40.0-44.9, adult Z68.41 and Chronic pain syndrome G89.4 [facility] [id number] [place] [address] 00395- 1909 Sep, [facility] [id number] [place] [address] 31621- 2964 Sep, [facility] [id number] [place] [address] 62535- 1470 Sep, [facility] [id number] [place] [address] 53175- 6886 Sep, Anxiety, generalized F41.1 [facility] [id number] [place] [address] 12059- 1628 Sep, [facility] [id number] [place] [address] 34985- 6775 Sep, Stage 3 chronic kidney disease N18.3 [facility] [id number] [place] [address] 47305- 3881 Sep, Stage 3 chronic kidney disease N18.3 and Chronic pain syndrome G89.4 [facility] [id number] [place] [address] 52795- 6104 Sep, Severe episode of recurrent major depressive disorder, without psychotic features F33.2 ; Anxiety, generalized F41.1 and Borderline personality disorder in adult F60.3 [facility] [address] 81534- 6927 04 Sep, 2017 Chronic pain syndrome G89.4 ; Anxiety, generalized F41.1 and BMI 45.0-49.9, adult Z68.42 [facility] [address] 80024- 5623 Sep, [facility] [address] 34735- 8574 Sep, [facility] [address] 88244- 9363 Sep, Severe episode of recurrent major depressive disorder, without psychotic features F33.2 ; Anxiety, generalized F41.1 and Borderline personality disorder in adult F60.3 [facility] [address] 13929- 4844 Sep, [facility] [id number] [place] [address] 27928 -8575 Aug, Dysuria R30.0 ; Type 2 diabetes mellitus with diabetic polyneuropathy E11.42 ; Oral abscess K12.2 and BMI 40.0-44.9, adult Z68.41 [facility] [id number] [place] [address] 69949- 2612 Aug, [facility] [address] 57506- 9385 Aug, [facility] [id number] [place] [address] 36960- 5467 Aug, [facility] [address] 13397- 9615 27 Aug, 2017 [facility] [address] [address] 9374 27 Aug, 2017 Severe episode of recurrent major depressive disorder, without psychotic features F33.2 ; Anxiety, generalized F41.1 and Borderline personality disorder in adult F60.3 [facility] [address] [address]- 7115 22 Aug, 2017 [facility] [id number] [place] [address] 45737- 4840 20 Aug, 2017 [facility] [address] [place] [address] 10536- 1987 19 Aug, 2017 Severe episode of recurrent major depressive disorder, without psychotic features F33.2 ; Anxiety, generalized F41.1 and Borderline personality disorder in adult F60.3 [facility] [address] [address] 17 Aug, 2017 [facility] [address] [address] 8549 15 Aug, 2017 [facility] [id number] [place] [address] 14074- 6764 14 Aug, 2017 [facility] [address] [address] 14 Aug, 2017 Dysuria R30.0 ; Dental infection K04.7 ; Acute cystitis with hematuria N30.01 and BMI 45.0-49.9, adult Z68.42 [facility] [address] [address]- 7250 14 Aug, 2017 Severe episode of recurrent major depressive disorder, without psychotic features F33.2 ; Anxiety, generalized F41.1 and Borderline personality disorder in adult F60.3 [facility] [address] [address] 8878 09 Aug, 2017 [facility] [address] [address]- 6207 Aug, Closed nondisplaced fracture of second metatarsal bone of left foot, initial encounter S92.325A and Chronic pain syndrome G89.4 [facility] [id number] [place] [address] 06134- 8599 08 Aug, 2017 Type 2 diabetes mellitus with diabetic polyneuropathy E11.42 [facility] [id number] [place] [address] 89814- 5578 Aug, Severe episode of recurrent major depressive disorder, without psychotic features F33.2 ; Anxiety, generalized F41.1 and Borderline personality disorder in adult F60.3 [facility] [address] [place] [address] 25405- 6824 07 Aug, 2017 [facility] [id number] [place] [address] 16543- 8826 Aug, [facility] [id number] [place] [address] 93031- 7249 Aug, [facility] [id number] [place] [address] 72021- 5558 Aug, [facility] [id number] [place] [address] 95621- 6576 Aug, [facility] [address] [place] [address] 18479- 5465 Jul, [facility] [address] [address]- 7107 Jul, [facility] [address] [place] [address] 43331- 8367 Jul, Severe episode of recurrent major depressive disorder, without psychotic features F33.2 ; Anxiety, generalized F41.1 and Borderline personality disorder in adult F60.3 [facility] [address] [address]- 7276 Jul, Type 2 diabetes mellitus with diabetic polyneuropathy E11.42 [facility] [id number] [place] [address] 56860- 8043 Jul, Closed nondisplaced fracture of second metatarsal bone of left foot, initial encounter S92.325A and Closed nondisplaced fracture of third metatarsal bone of left foot, initial encounter S92.335A [facility] [id number] [place] [address] 06495- 4793 Jul, [facility] [id number] [place] [address] 84553- 3555 Jul, Closed nondisplaced fracture of second metatarsal bone of left foot, initial encounter S92.325A ; Acute left ankle pain M25.572 ; Acute midline low back pain without sciatica M54.5 and Seasonal allergic rhinitis, unspecified allergic rhinitis trigger J30.2 [facility] [id number] [place] [address] 05384- 9975 Jul, [facility] [address] 29676- 4773 Jul, [facility] [id number] [place] [address] 78760- 8166 Jul, [facility] [id number] [place] [address] 70399- 3277 15 Jul, 2017 Frequent falls R29.6 [facility] [id number] [place] [address] 59404- 0038 14 Jul, 2017 Frequent falls R29.6 [facility] [id number] [place] [address] 15407- 9457 Jul, Severe episode of recurrent major depressive disorder, without psychotic features F33.2 ; Anxiety, generalized F41.1 and Borderline personality disorder in adult F60.3 [facility] [id number] [place] [address] 97510- 7772 07 Jul, 2017 Chronic pain syndrome G89.4 [facility] [id number] [place] [address] 39012- 9734 07 Jul, 2017 jail current use of insulin Z79.4 [facility] [address] [place] [address] 88094- 4136 Jul, [facility] [id number] [place] [address] 48187- 9939 Jul, Type 2 diabetes mellitus with diabetic polyneuropathy E11.42 [facility] [id number] [place] [address] 10255- 3185 Jun, jail current use of insulin Z79.4 and Thrush B37.0 [facility] [id number] [place] [address] 16016- 7209 Jun, Severe episode of recurrent major depressive disorder, without psychotic features F33.2 ; Anxiety, generalized F41.1 and Borderline personality disorder in adult F60.3 [facility] [id number] [place] [address] 42438- 7089 Jun, Severe episode of recurrent major depressive disorder, without psychotic features F33.2 ; Anxiety, generalized F41.1 and Borderline personality disorder in adult F60.3 [facility] [id number] [place] [address] 86507- 4985 Jun, Frequent falls R29.6 ; Bronchitis J40 ; BMI 40.0-44.9, adult Z68.41 and Coccygeal pain, acute M53.3 [facility] [id number] [place] [address] 03918- 7445 Jun, [facility] [address] [place] [address] 68680 -8016 Jun, [facility] [id number] [place] [address] 16275- 8144 Jun, [facility] [id number] [place] [address] 61900- 2736 Jun, Dental caries, unspecified K02.9 [facility] [id number] [place] [address] 14092- 6312 Jun, Acute non-recurrent maxillary sinusitis J01.00 and BMI 40.0- 44.9, adult Z68.41 [facility] [id number] [place] [address] 51994- 8145 Jun, [facility] [id number] [place] [address] 49939- 1364 Jun, Severe episode of recurrent major depressive disorder, without psychotic features F33.2 ; Anxiety, generalized F41.1 and Borderline personality disorder in adult F60.3 [facility] [address] [place] [address] 53017- 4849 11 Jun, 2017 Closed nondisplaced fracture of third metatarsal bone of left foot with routine healing, subsequent encounter S92.335D ; Closed nondisplaced fracture of second metatarsal bone of left foot with routine healing, subsequent encounter S92.325D and Closed nondisplaced fracture of fourth metatarsal bone of left foot with routine healing, subsequent encounter S92.345D [facility] [address] [place] [address] 45448- 9642 Jun, Severe episode of recurrent major depressive disorder, without psychotic features F33.2 ; Anxiety, generalized F41.1 and Borderline personality disorder in adult F60.3 [facility] [address] [address]- 7968 Jun, [facility] [address] [address]- 1430 Jun, [facility] [id number] [place] [address] 67123- 2635 Jun, [facility] [id number] [place] [address] 56282- 7075 Jun, [facility] [id number] [place] [address] 40454- 1639 Jun, [facility] [address] [place] [address] 43993- 8033 Jun, Anxiety F41.9 [facility] [address] [address]- 8536 Jun, [facility] [address] [place] [address] 51901- 1813 Jun, [facility] [address] [address]- 6806 Jun, Type 2 diabetes mellitus with diabetic autonomic (poly) neuropathy E11.43 [facility] [id number] [place] [address] 08431- 5043 Jun, Severe episode of recurrent major depressive disorder, without psychotic features F33.2 ; Anxiety, generalized F41.1 and Borderline personality disorder in adult F60.3 [facility] [address] [place] [address] 26131- 3213 Jun, Type 2 diabetes mellitus with diabetic autonomic (poly) neuropathy E11.43 and Chronic pain syndrome G89.4 [address] [place] [address] 14164- 9783 20 May, 2017 Recent urinary tract infection Z87.440 ; Deliberate self- cutting Z72.89 ; Chest discomfort R07.89 ; BMI 40.0-44.9, adult Z68.41 and Worried well Z71.1 [address] [address]- 5294 19 May, 2017 Severe episode of recurrent major depressive disorder, without psychotic features F33.2 ; Anxiety, generalized F41.1 and Borderline personality disorder in adult F60.3 [facility] [address] [address]- 4084 18 May, 2017 [id number] [place] [address] 95109- 0892 14 May, 2017 [facility] [address] [address]- 3295 May, Type 2 diabetes mellitus with diabetic autonomic (poly) neuropathy E11.43 [facility] [id number] [place] [address] 31975- 7508 May, Severe episode of recurrent major depressive disorder, without psychotic features F33.2 ; Anxiety, generalized F41.1 and Borderline personality disorder in adult F60.3 [facility] [id number] [place] [address] 65072- 3553 May, [facility] [id number] [place] [address] 24708- 3057 May, Type 2 diabetes mellitus with diabetic autonomic (poly) neuropathy E11.43 ; Multiple neurological symptoms R29.90 ; Dysuria R30.0 ; Tobacco abuse Z72.0 ; Right hip pain M25.551 ; Anxiety F41.9 ; Gastritis determined by endoscopy K29.70 ; Chronic pain syndrome G89.4 ; Acute non- recurrent maxillary sinusitis J01.00 ; Self mutilating behavior Z72.89 and BMI 40.0-44.9, adult Z68.41 [facility] [id number] [place] [address] 34027- 8609 May, Severe episode of recurrent major depressive disorder, without psychotic features F33.2 ; Anxiety, generalized F41.1 and Borderline personality disorder in adult F60.3 [facility] [id number] [place] [address] 77644- 1551 Apr, [facility] [id number] [place] [address] 16051- 4336 Apr, [facility] [id number] [place] [address] 87913 -1255 Apr, [facility] [id number] [place] [address] 70007 -4080 Apr, Aspiration pneumonia of right lower lobe, unspecified aspiration pneumonia type J69.0 [facility] [id number] [place] [address] 76611- 6559 Apr, Severe episode of recurrent major depressive disorder, without psychotic features F33.2 ; Anxiety, generalized F41.1 and Borderline personality disorder in adult F60.3 [facility] [address] [address]- 2432 Apr, [facility] [address] [place] [address] 43932- 3062 Apr, Chronic pain syndrome G89.4 [facility] [address] [address]- 1153 21 Apr, 2017 Severe episode of recurrent major depressive disorder, without psychotic features F33.2 ; Anxiety, generalized F41.1 and Borderline personality disorder in adult F60.3 [facility] [address] [place] [address] 84146- 9180 16 Apr, 2017 Severe episode of recurrent major depressive disorder, without psychotic features F33.2 ; Anxiety, generalized F41.1 and Borderline personality disorder in adult F60.3 [facility] [address] [place] [address] 27842- 4149 16 Apr, 2017 Closed nondisplaced fracture of third metatarsal bone of left foot with routine healing, subsequent encounter S92.335D ; Closed nondisplaced fracture of fourth metatarsal bone of left foot with routine healing, subsequent encounter S92.345D and Closed nondisplaced fracture of second metatarsal bone of left foot with routine healing, subsequent encounter S92.325D [facility] [address] [address]- 7981 16 Apr, 2017 [facility] [place] [address] [place] [address] 28221- 5665 15 Apr, 2017 [facility] [id number] [place] [address] 40649- 5509 14 Apr, 2017 [place] [address] [place] [address] 46137- 8362 13 Apr, 2017 Screening breast examination Z12.31 [facility] [address] [place] [address] 85105- 6890 09 Apr, 2017 [place] [address] [place] [address] 78342- 0457 Apr, Type 2 diabetes mellitus with diabetic autonomic (poly) neuropathy E11.43 [facility] [address] [place] [address] 19293- 4263 Apr, Severe episode of recurrent major depressive disorder, without psychotic features F33.2 ; Anxiety, generalized F41.1 and Borderline personality disorder in adult F60.3 [facility] [id number] [place] [address] 20739- 1790 Apr, Type 2 diabetes mellitus with diabetic autonomic (poly) neuropathy E11.43 ; Chronic pain syndrome G89.4 and Anxiety F41.9 [facility] [id number] [place] [address] 46607 -7189 Apr, BMI 45.0-49.9, adult Z68.42 [facility] [id number] [place] [address] 91525 -7349 Apr, Avulsion of toenail, initial encounter S91.209A and Acute non-recurrent maxillary sinusitis J01.00 [facility] [id number] [place] [address] 30330- 5818 Apr, [facility] [id number] [place] [address] 47372- 3635 Mar, [facility] [address] [place] [address] 07857- 8036 Mar, Severe episode of recurrent major depressive disorder, without psychotic features F33.2 ; Anxiety, generalized F41.1 and Borderline personality disorder in adult F60.3 [facility] [id number] [place] [address] 02608- 4040 Mar, [facility] [id number] [place] [address] 21135- 7279 Mar, [facility] [id number] [place] [address] 09293- 7447 Mar, [facility] [id number] [place] [address] 57220- 9250 Mar, Seizure disorder G40.909 [facility] [address] [address]- 3934 Mar, [facility] [address] [place] [address] 62197- 9334 Mar, [facility] [address] [place] [address] 02130 -0267 Mar, Left foot pain M79.672 ; Stage 3 chronic kidney disease N18.3 and Closed nondisplaced fracture of second metatarsal bone of left foot, initial encounter S92.325A [facility] [id number] [place] [address] 85051- 8505 Mar, Severe episode of recurrent major depressive disorder, without psychotic features F33.2 and Anxiety, generalized F41.1 [facility] [id number] [place] [address] 81515- 4854 Mar, [facility] [id number] [place] [address] 46146- 1985 Mar, Closed nondisplaced fracture of second metatarsal bone of left foot, initial encounter S92.325A and Closed nondisplaced fracture of third metatarsal bone of left foot, initial encounter S92.335A [facility] [address] [place] [address] 05808- 8353 Mar, Seizure disorder G40.909 [facility] [address] [place] [address] 01695- 3546 Mar, [facility] [address] [place] [address] 64624- 5245 Mar, [facility] [id number] [place] [address] 78010- 1150 Mar, [facility] [address] [place] [address] 84695- 5974 Mar, [facility] [id number] [place] [address] 21869- 7847 Mar, High risk sexual behavior Z72.51 [facility] [address] [place] [address] 63176- 9199 Mar, Severe episode of recurrent major depressive disorder, without psychotic features F33.2 and Anxiety, generalized F41.1 [facility] [address] [place] [address] 57376- 5456 Mar, Anxiety F41.9 and Type 2 diabetes mellitus with diabetic autonomic (poly)neuropathy E11.43 [facility] [id number] [place] [address] 68620- 3758 Mar, Anxiety F41.9 [facility] [id number] [place] [address] 88866- 3427 Mar, High risk sexual behavior Z72.51 [facility] [id number] [place] [address] 87620- 8148 Mar, Chronic pain syndrome G89.4 [facility] [id number] [place] [address] 84065- 0884 Mar, Type 2 diabetes mellitus with diabetic autonomic (poly) neuropathy E11.43 [facility] [id number] [place] [address] 78180- 2785 Mar, [facility] [id number] [place] [address] 35142- 2627 Mar, Closed nondisplaced fracture of second metatarsal bone of left foot, initial encounter S92.325A ; Chronic pain syndrome G89.4 ; Closed nondisplaced fracture of third metatarsal bone of left foot, initial encounter S92.335A ; Acute left ankle pain M25.572 and Type 2 diabetes mellitus with diabetic autonomic (poly)neuropathy E11.43 [facility] [address] [address] 1156 Mar, [facility] [address] [address] 2563 Mar, [facility] [id number] [place] [address] 37738- 8394 Mar, Severe episode of recurrent major depressive disorder, without psychotic features F33.2 and Anxiety, generalized F41.1 [facility] [id number] [place] [address] 36140- 1060 Feb, [facility] [id number] [place] [address] 87389- 1690 Feb, Renal insufficiency N28.9 [facility] [id number] [place] [address] 74292- 3788 Feb, [facility] [id number] [place] [address] 51153- 6753 Feb, Severe episode of recurrent major depressive disorder, without psychotic features F33.2 and Anxiety, generalized F41.1 [facility] [id number] [place] [address] 24879- 0052 Feb, [facility] [id number] [place] [address] 61886- 2551 22 Feb, 2017 [facility] [id number] [place] [address] 12176- 4068 20 Feb, 2017 Renal insufficiency N28.9 [facility] [id number] [place] [address] 08315- 1031 19 Feb, 2017 [facility] [id number] [place] [address] 55926 -7433 18 Feb, 2017 [facility] [id number] [place] [address] 19431- 0856 14 Feb, 2017 [facility] [id number] [place] [address] 59868- 3137 13 Feb, 2017 Severe episode of recurrent major depressive disorder, without psychotic features F33.2 and Anxiety, generalized F41.1 [facility] [address] [address]- 4024 13 Feb, 2017 Closed nondisplaced fracture of second metatarsal bone of left foot, initial encounter S92.325A ; Chronic pain syndrome G89.4 ; Closed nondisplaced fracture of third metatarsal bone of left foot, initial encounter S92.335A ; Left hip pain M25.552 and Stage 3 chronic kidney disease N18.3 [facility] [id number] [place] [address] 64889- 9982 Feb, [facility] [address] [facility] [id number] [place] [address] 32208- 2306 Feb, [facility] [address] [facility] [id number] [place] [address] 55889- 8717 Feb, Closed nondisplaced fracture of second metatarsal bone of left foot, initial encounter S92.325A and Closed nondisplaced fracture of third metatarsal bone of left foot, initial encounter S92.335[address] [place] [id number] [place] [address] 12733- 6871 Feb, [facility] [id number] [place] [address] 72523- 1832 Feb, Anxiety F41.9 [facility] [id number] [place] [address] 06252- 0597 Feb, [facility] [id number] [place] [address] 65698- 8787 Feb, Chronic pain syndrome G89.4 [facility] [address] [place] [id number] [place] [address] 70020- 2545 05 Feb, 2017 Left foot pain M79.672 ; Closed nondisplaced fracture of second metatarsal bone of left foot, initial encounter S92.325A ; Closed nondisplaced fracture of third metatarsal bone of left foot, initial encounter S92.335A and Oral infection K12.2 [facility] [address] [facility] [id number] [place] [address] 72922- 7398 Feb, [facility] [address] [place] [id number] [place] [address] 33615- 4608 Jan, [place] [id number] [place] [address] 07457- 0265 Jan, Type 2 diabetes mellitus with diabetic autonomic (poly) neuropathy E11.43 and Congestive heart failure, unspecified congestive heart failure chronicity, unspecified congestive heart failure type I50.9 [place] [id number] [place] [address] 59454- 3299 Jan, Congestive heart failure, unspecified congestive heart failure chronicity, unspecified congestive heart failure type I50.9 and Stage 3 chronic kidney disease N18.3 [place] [id number] [place] [address] 90306- 5859 Jan, Stage 3 chronic kidney disease N18.3 ; Edema of both legs R60.0 ; Chronic congestive heart failure, unspecified congestive heart failure type I50.9 ; Acute low back pain without sciatica, unspecified back pain laterality M54.5 ; Chronic nausea R11.0 and Primary insomnia F51.01 [place] [id number] [place] [address] 33667- 2672 Jan, Severe episode of recurrent major depressive disorder, without psychotic features F33.2 and Anxiety, generalized F41.1 [place] [id number] [place] [address] 70142- 5546 Jan, [place] [id number] [place] [address] 02164- 6790 Jan, [place] [id number] [place] [address] 27582- 8870 Jan, [place] [id number] [place] [address] 39222- 7335 Jan, [place] [id number] [place] [address] 85432- 5327 Jan, Anxiety F41.9 and Severe episode of recurrent major depressive disorder, without psychotic features F33.2 [place] [id number] [place] [address] 13901- 1500 Jan, Type 2 diabetes mellitus with diabetic autonomic (poly) neuropathy E11.43 [place] [address] [place] [address] 28360- 1073 Jan, Severe episode of recurrent major depressive disorder, without psychotic features F33.2 and Type 2 diabetes mellitus with diabetic autonomic (poly)neuropathy E11.43 [place] [id number] [place] [address] 60752- 4460 Jan, [place] [id number] [place] [address] 60598- 5330 Jan, [place] [id number] [place] [address] 74203- 1546 Jan, Stage 3 chronic kidney disease N18.3 ; Seizure disorder G40.909 ; Edema of both legs R60.0 and Blister (nonthermal), right foot, initial encounter S90.821A [place] [id number] [place] [address] 00240- 3014 Jan, Severe episode of recurrent major depressive disorder, without psychotic features F33.2 and Anxiety, generalized F41.1 [place] [id number] [place] [address] 00154- 6385 Jan, Severe episode of recurrent major depressive disorder, without psychotic features F33.2 and Anxiety, generalized F41.1 [place] [id number] [place] [address] 00637- 3257 Jan, [place] [id number] [place] [address] 79982- 4750 Jan, Anxiety F41.9 and Primary insomnia F51.01 [place] [id number] [place] [address] 04696- 4878 Jan, Type 2 diabetes mellitus with diabetic autonomic (poly) neuropathy E11.43 ; jail current use of insulin Z79.4 ; Stage 3 chronic kidney disease N18.3 ; Chronic pain syndrome G89.4 ; Swelling of mandible R22.0 and Seizure disorder G40.909 [place] [id number] [place] [address] 92359- 8361 Jan, [place] [id number] [place] [address] 29831- 7447 Jan, [place] [id number] [place] [address] 23030- 9978 Dec, Severe episode of recurrent major depressive disorder, without psychotic features F33.2 and Anxiety, generalized F41.1 [place] [id number] [place] [address] 91125- 9844 Dec, Diarrhea,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
--- OUTSIDE RECORDS SUMMARY | 2017-12-04 20:36 | XMS REPORT ---
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 Active 702015847 Problem Recurrent major depressive disorder, remission status unspecified F33.9 Active 28174338 Problem Severe episode of recurrent major depressive disorder, without psychotic features F33.2 Active 87056419 Problem Tobacco abuse Z72.0 Active 430935622 Problem Anxiety, generalized F41.1 Active 77906767 Problem Weakness R53.1 Active 53696179 Problem Stage 3 chronic kidney disease N18.3 Active 077691608 Problem Vaginal bleeding N93.9 Active 058480441 Problem Chronic nausea R11.0 Active 617747492 Problem Right lower quadrant abdominal pain R10.31 Active 660460293 Problem Self-inflicted injury Z72.89 Active 201611321 Problem Noncompliance with diabetes treatment Z91.19 Active 8879478 Problem Unspecified fall W19.XXXA Active 2703767 Problem Type 2 diabetes mellitus with diabetic polyneuropathy E11.42 Active 74640420 Problem Gastritis determined by endoscopy K29.70 Active 6052959 Problem Unspecified abdominal pain R10.9 Active 077737643 Problem Diarrhea, unspecified type R19.7 Active 44344677 Problem Left hip pain M25.552 Active 84831778 Problem Closed nondisplaced fracture of second metatarsal bone of left foot, initial encounter S92.325A Active 23850258 Problem Neck pain M54.2 Active 64007011 Problem Thrush B37.0 Active 11245604 Problem Anxiety F41.9 Active 07786995 Problem Swelling of both lower extremities M79.89 Active 22763912820850667 Problem Essential hypertension I10 Active 79159557 Problem Edema of both legs R60.0 Active 749559872 Problem Acquired hypothyroidism E03.9 Active 674792361 Problem Blister (nonthermal), right foot, initial encounter S90.821A Active 210433236 Problem Congestive heart failure, unspecified congestive heart failure chronicity, unspecified congestive heart failure type I50.9 Active 48326942 Problem Closed nondisplaced fracture of third metatarsal bone of left foot, initial encounter S92.335A Active 443026255 Problem Port catheter in place Z95.828 Active 721041680 Problem Chronic congestive heart failure, unspecified congestive heart failure type I50.9 Active 63325718 Problem Primary insomnia F51.01 Active 3343662 Problem Postural hypotension I95.1 Active 86808777 Problem Screening breast examination Z12.39 Active 809870588 Problem Acute non-recurrent maxillary sinusitis J01.00 Active 90125806 Problem Type 2 diabetes mellitus with diabetic autonomic (poly)neuropathy E11.43 Active 285933181 Problem Syncope, unspecified syncope type R55 Active 892527000 Problem Chronic pain syndrome G89.4 Active 093848551 Problem Acute pain of right shoulder M25.511 Active 17378842 Problem Epigastric pain R10.13 Active 66072583 Problem Seizure disorder G40.909 Active 101515475 Problem Gastroparesis K31.84 Active 109146240 Problem Chronic superficial gastritis without bleeding K29.30 Active 969949441 Problem Seasonal allergic rhinitis, unspecified allergic rhinitis trigger J30.2 Active 354810490 Problem Swelling of mandible R22.0 Active 338731415 ALLERGIES No Information SOCIAL HISTORY Never Assessed [...] vein (port for IV access) Dr. Hernandez [facility] 08-29-2013 Surgical History partial hysterectomy Surgical History EGD Hospitalization History transfusion given after delivery Hospitalization History Chest pain, uncontrolled Hyperglycemia--[facility] 12/15/15 Hospitalization History Influenza B Hospitalization History pneumonia Hospitalization History [facility] 07/16/16 Hospitalization History for high sugar 07/12
--- OUTSIDE RECORDS SUMMARY | 2017-12-04 20:37 | XMS REPORT ---
Author Author MIRZA MARTINO Organization [facility] Address [address] [place] [address] Care Team Providers Care Patient Financial Services Specialist Name Role Phone HAIMLindsey MIRZA Unavailable PROBLEMS Type Condition ICD9-CM Code JYA42-QT Code Onset Dates Condition Status SNOMED Code Problem Postural hypotension I95.1 Active 36217006 Problem Seizure disorder G40.909 Active 287605313 Problem Seasonal allergic rhinitis, unspecified allergic rhinitis trigger J30.2 Active 395932763 Problem Closed nondisplaced fracture of second metatarsal bone of left foot, initial encounter S92.325A Active 65961664 Problem Essential hypertension I10 Active 67367381 Problem Multiple neurological symptoms R29.90 Active 453762891 Problem Port catheter in place Z95.828 Active 542684731 Problem Stage 3 chronic kidney disease N18.3 Active 777618204 Problem Gastritis determined by endoscopy K29.70 Active 0892162 Problem Self-inflicted injury Z72.89 Active 292930281 Problem Borderline personality disorder in adult F60.3 Active 31150541 Problem Chronic congestive heart failure, unspecified congestive heart failure type I50.9 Active 21219987 Problem Chronic pain syndrome G89.4 Active 995496871 Problem Primary insomnia F51.01 Active 6603664 Problem Acquired hypothyroidism E03.9 Active 297396558 Problem Gastroparesis K31.84 Active 384539607 Problem Severe episode of recurrent major depressive disorder, without psychotic features F33.2 Active 11191195 Problem Anxiety, generalized F41.1 Active 16642136 Problem 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 Active 098555549 Problem Type 2 diabetes mellitus with diabetic polyneuropathy E11.42 Active 78590319 Problem Tobacco abuse Z72.0 Active 283562548 Problem Noncompliance with diabetes treatment Z91.19 Active 4290743 ALLERGIES No Information ENCOUNTERS Encounter Location Date Diagnosis [facility] [id number] [address] October, [facility] [id number] [id number] Sep, [facility] [id number] [place] [address] 92754- 9819 Sep, [facility] [id number] [place] [address] 13184- 8882 Sep, [facility] [address] [address]- 3067 Sep, [facility] [id number] [place] [address] 34291- 1458 Sep, Chronic pain syndrome G89.4 ; Anxiety, generalized F41.1 and BMI 45.0-49.9, adult Z68.42 [facility] [id number] [place] [address] 81633- 0939 Sep, [facility] [id number] [place] [address] 67648- 0481 Sep, [facility] [id number] [place] [address] 05333- 3740 Sep, Severe episode of recurrent major depressive disorder, without psychotic features F33.2 ; Anxiety, generalized F41.1 and Borderline personality disorder in adult F60.3 [facility] [id number] [place] [address] 30466- 0106 Sep, [facility] [id number] [place] [address] 99644 -2072 Aug, Dysuria R30.0 ; Type 2 diabetes mellitus with diabetic polyneuropathy E11.42 ; Oral abscess K12.2 and BMI 40.0-44.9, adult Z68.41 [facility] [id number] [place] [address] 26472- 4108 Aug, [facility] [id number] [place] [address] 62019- 3604 Aug, [place] [address], [place] [address] 27 Aug, 2017 [facility] [id number] [place] [address] 05268- 0148 27 Aug, 2017 [facility] [address], [place] [address] 27 Aug, 2017 Severe episode of recurrent major depressive disorder, without psychotic features F33.2 ; Anxiety, generalized F41.1 and Borderline personality disorder in adult F60.3 [facility] [address], [place] [address] 22 Aug, 2017 [facility] [id number] [place] [address] 07871- 7149 20 Aug, 2017 [facility] [id number] [place] [address] 05896- 7180 19 Aug, 2017 Severe episode of recurrent major depressive disorder, without psychotic features F33.2 ; Anxiety, generalized F41.1 and Borderline personality disorder in adult F60.3 [facility] [address], [place] [address] 17 Aug, 2017 [facility] [id number] [place] [address] 59953- 0282 15 Aug, 2017 [facility] [address], [place] [address] 9163 14 Aug, 2017 [facility] [address], [place] [address] 14 Aug, 2017 Dysuria R30.0 ; Dental infection K04.7 ; Acute cystitis with hematuria N30.01 and BMI 45.0-49.9, adult Z68.42 [facility] [address], [place] [address] 137[address] 14 Aug, 2017 Severe episode of recurrent major depressive disorder, without psychotic features F33.2 ; Anxiety, generalized F41.1 and Borderline personality disorder in adult F60.3 [facility] [id number], [place] [address] Aug, [facility] [address], [place] [address] 99[address] Aug, Closed nondisplaced fracture of second metatarsal bone of left foot, initial encounter S92.325A and Chronic pain syndrome G89.4 [facility] [address], [place] [address] Aug, Type 2 diabetes mellitus with diabetic polyneuropathy E11.42 [facility] [id number] [place] [address] 62668- 1491 Aug, Severe episode of recurrent major depressive disorder, without psychotic features F33.2 ; Anxiety, generalized F41.1 and Borderline personality disorder in adult F60.3 [facility] [address], [place] [address] 70[address] Aug, [facility] [id number] [place] [address] 92489- 7209 Aug, [facility] [address], [place] [address] 5[address] Aug, [facility] [id number] [place] [address] 07672- 5028 Aug, [facility] [address], [place] [address] 6113 Aug, [facility] [id number] [place] [address] 39493- 0673 Jul, [facility] [address], [place] [address] 83[address] Jul, [facility] [id number] [place] [address] 00983- 1660 Jul, Severe episode of recurrent major depressive disorder, without psychotic features F33.2 ; Anxiety, generalized F41.1 and Borderline personality disorder in adult F60.3 [facility] [id number] [place] [address] 34830- 2694 Jul, Type 2 diabetes mellitus with diabetic polyneuropathy E11.42 [place] [id number] [place] [address] 77101- 7312 Jul, Closed nondisplaced fracture of second metatarsal bone of left foot, initial encounter S92.325A and Closed nondisplaced fracture of third metatarsal bone of left foot, initial encounter S92.335A [place] [id number] [place] [address] 63692- 6325 Jul, [place] [id number] [place] [address] 35232- 1259 Jul, Closed nondisplaced fracture of second metatarsal bone of left foot, initial encounter S92.325A ; Acute left ankle pain M25.572 ; Acute midline low back pain without sciatica M54.5 and Seasonal allergic rhinitis, unspecified allergic rhinitis trigger J30.2 [place] [id number] [place] [address] 90767- 8715 Jul, [place] [id number] [place] [address] 28969- 1107 Jul, [place] [id number] [place] [address] 69062- 6029 15 Jul, 2017 [place] [id number] [place] [address] 36135- 5398 15 Jul, 2017 Frequent falls R29.6 [place] [id number] [place] [address] 87380- 4199 14 Jul, 2017 Frequent falls R29.6 [place] [id number] [place] [address] 60381- 2161 07 Jul, 2017 Severe episode of recurrent major depressive disorder, without psychotic features F33.2 ; Anxiety, generalized F41.1 and Borderline personality disorder in adult F60.3 [place] [id number] [place] [address] 28463- 2373 Jul, Chronic pain syndrome G89.4 [facility] [id number] [place] [address] 88807- 1313 Jul, 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 [facility] [id number] [place] [address] 07901- 0774 Jul, [facility] [id number] [place] [address] 28080- 6575 Jul, Type 2 diabetes mellitus with diabetic polyneuropathy E11.42 [facility] [address] 53275- 6177 Jun, 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 and Thrush B37.0 [place] [id number] [place] [address] 23891- 2905 Jun, Severe episode of recurrent major depressive disorder, without psychotic features F33.2 ; Anxiety, generalized F41.1 and Borderline personality disorder in adult F60.3 [place] [id number] [place] [address] 20425- 1219 Jun, Severe episode of recurrent major depressive disorder, without psychotic features F33.2 ; Anxiety, generalized F41.1 and Borderline personality disorder in adult F60.3 [place] [id number] [place] [address] 25897- 7102 Jun, Frequent falls R29.6 ; Bronchitis J40 ; BMI 40.0-44.9, adult Z68.41 and Coccygeal pain, acute M53.3 [facility] [id number] [place] [address] 87990- 4029 Jun, [facility] [id number] [place] [address] 58622 -0837 Jun, [facility] [id number] [place] [address] 40119- 1335 Jun, [facility] [address] 36170- 9185 Jun, Dental caries, unspecified K02.9 [facility] [id number] [place] [address] 38500- 4933 Jun, Acute non-recurrent maxillary sinusitis J01.00 and BMI 40.0- 44.9, adult Z68.41 [facility] [id number] [place] [address] 42587- 1647 Jun, [facility] [id number] [place] [address] 50720- 1457 Jun, Severe episode of recurrent major depressive disorder, without psychotic features F33.2 ; Anxiety, generalized F41.1 and Borderline personality disorder in adult F60.3 [place] [id number] [place] [address] 01619- 6122 Jun, Closed nondisplaced fracture of third metatarsal bone of left foot with routine healing, subsequent encounter S92.335D ; Closed nondisplaced fracture of second metatarsal bone of left foot with routine healing, subsequent encounter S92.325D and Closed nondisplaced fracture of fourth metatarsal bone of left foot with routine healing, subsequent encounter S92.345D [address] [place] [id number] [place] [address] 90641- 7109 Jun, Severe episode of recurrent major depressive disorder, without psychotic features F33.2 ; Anxiety, generalized F41.1 and Borderline personality disorder in adult F60.3 [address] [id number] [place] [address] 96965- 0545 Jun, [facility] [id number] [place] [address] 57201- 4311 Jun, [facility] [id number] [place] [address] 75750- 4993 Jun, [facility] [id number] [place] [address] 97934- 0636 Jun, [facility] [id number] [place] [address] 37672- 1064 Jun, [address] [id number] [place] [address] 98872- 9308 Jun, Anxiety F41.9 [address] [id number] [place] [address] 18476- 8382 Jun, [address] [id number] [place] [address] 59870- 6042 Jun, [address] [id number] [place] [address] 72778- 1623 Jun, Type 2 diabetes mellitus with diabetic autonomic (poly) neuropathy E11.43 [address] [id number] [place] [address] 79272- 2994 Jun, Severe episode of recurrent major depressive disorder, without psychotic features F33.2 ; Anxiety, generalized F41.1 and Borderline personality disorder in adult F60.3 [address] [id number] [place] [address] 96565- 0063 Jun, Type 2 diabetes mellitus with diabetic autonomic (poly) neuropathy E11.43 and Chronic pain syndrome G89.4 [place] [id number] [place] [address] 19034- 0945 May, Recent urinary tract infection Z87.440 ; Deliberate self- cutting Z72.89 ; Chest discomfort R07.89 ; BMI 40.0-44.9, adult Z68.41 and Worried well Z71.1 [address] [id number] [place] [address] 65706- 7118 May, Severe episode of recurrent major depressive disorder, without psychotic features F33.2 ; Anxiety, generalized F41.1 and Borderline personality disorder in adult F60.3 [address] [id number] [place] [address] 22898- 3854 18 May, 2017 [id number] [place] [address] 30327- 4309 14 May, 2017 [address] [id number] [place] [address] 76307- 8076 May, Type 2 diabetes mellitus with diabetic autonomic (poly) neuropathy E11.43 [address] [address] 57648- 5118 May, Severe episode of recurrent major depressive disorder, without psychotic features F33.2 ; Anxiety, generalized F41.1 and Borderline personality disorder in adult F60.[address] 49358- 1566 May, [place] [address] 94181- 8973 May, Type 2 diabetes mellitus with diabetic autonomic (poly) neuropathy E11.43 ; Multiple neurological symptoms R29.90 ; Dysuria R30.0 ; Tobacco abuse Z72.0 ; Right hip pain M25.551 ; Anxiety F41.9 ; Gastritis determined by endoscopy K29.70 ; Chronic pain syndrome G89.4 ; Acute non- recurrent maxillary sinusitis J01.00 ; Self mutilating behavior Z72.89 and BMI 40.0-44.9, adult Z68.41 [id number] [place] [address] 14018- 2854 May, Severe episode of recurrent major depressive disorder, without psychotic features F33.2 ; Anxiety, generalized F41.1 and Borderline personality disorder in adult F60.3 [address] [id number] [place] [address] 09632- 5417 Apr, [address] [id number] [place] [address] 63118- 2591 Apr, [facility] [address] [place] [id number] [place] [address] 81164 -2685 Apr, [facility] [address] [place] [id number] [place] [address] 76223 -1840 Apr, Aspiration pneumonia of right lower lobe, unspecified aspiration pneumonia type J69.[address] 35864- 9889 Apr, Severe episode of recurrent major depressive disorder, without psychotic features F33.2 ; Anxiety, generalized F41.1 and Borderline personality disorder in adult F60.3 [facility] [id number] [place] [address] 67618- 2656 Apr, [facility] [id number] [place] [address] 14101- 6714 Apr, Chronic pain syndrome G89.4 [facility] [id number] [place] [address] 82721- 8718 Apr, Severe episode of recurrent major depressive disorder, without psychotic features F33.2 ; Anxiety, generalized F41.1 and Borderline personality disorder in adult F60.3 [facility] [id number] [place] [address] 14851- 3486 16 Apr, 2017 Severe episode of recurrent major depressive disorder, without psychotic features F33.2 ; Anxiety, generalized F41.1 and Borderline personality disorder in adult F60.3 [address] [id number] [place] [address] 56339- 3579 16 Apr, 2017 Closed nondisplaced fracture of third metatarsal bone of left foot with routine healing, subsequent encounter S92.335D ; Closed nondisplaced fracture of fourth metatarsal bone of left foot with routine healing, subsequent encounter S92.345D and Closed nondisplaced fracture of second metatarsal bone of left foot with routine healing, subsequent encounter S92.325D [place] [id number] [place] [address] 40546- 0173 16 Apr, 2017 [address] [id number] [place] [address] 90589- 8608 15 Apr, 2017 [address] [id number] [place] [address] 52058- 1518 14 Apr, 2017 [address] [id number] [place] [address] 14619- 7928 13 Apr, 2017 Screening breast examination Z12.31 [place] [id number] [place] [address] 94425- 6022 Apr, [facility] [address] 31125- 8870 Apr, Type 2 diabetes mellitus with diabetic autonomic (poly) neuropathy E11.43 [facility] [id number] [place] [address] 68907- 8227 Apr, Severe episode of recurrent major depressive disorder, without psychotic features F33.2 ; Anxiety, generalized F41.1 and Borderline personality disorder in adult F60.3 [place] [address] 12708- 6260 Apr, Type 2 diabetes mellitus with diabetic autonomic (poly) neuropathy E11.43 ; Chronic pain syndrome G89.4 and Anxiety F41.9 [facility] [address] 64258 -8114 Apr, BMI 45.0-49.9, adult Z68.42 [facility] [address] 71619 -5834 Apr, Avulsion of toenail, initial encounter S91.209A and Acute non-recurrent maxillary sinusitis J01.00 [place] [id number] [place] [address] 19079- 2166 Apr, [place] [id number] [place] [address] 04611- 0639 Mar, [place] [id number] [place] [address] 16354- 5983 Mar, Severe episode of recurrent major depressive disorder, without psychotic features F33.2 ; Anxiety, generalized F41.1 and Borderline personality disorder in adult F60.3 [place] [address] 57215- 7722 Mar, [place] [id number] [place] [address] 76595- 3050 Mar, [place] [address] [place] [address]- 7387 Mar, [facility] [id number] [place] [address] 13208- 5661 Mar, Seizure disorder G40.909 [facility] [id number] [place] [address] 74320- 9616 Mar, [facility] [id number] [place] [address] 74767- 0809 Mar, [facility] [id number] [place] [address] 74711 -7594 Mar, Left foot pain M79.672 ; Stage 3 chronic kidney disease N18.3 and Closed nondisplaced fracture of second metatarsal bone of left foot, initial encounter S92.325A [place] [id number] [place] [address] 00454- 8166 Mar, Severe episode of recurrent major depressive disorder, without psychotic features F33.2 and Anxiety, generalized F41.1 [facility] [id number] [place] [address] 98621- 2657 Mar, [facility] [id number] [place] [address] 66995- 0512 Mar, Closed nondisplaced fracture of second metatarsal bone of left foot, initial encounter S92.325A and Closed nondisplaced fracture of third metatarsal bone of left foot, initial encounter S92.335A [facility] [id number] [place] [address] 35191- 1485 Mar, Seizure disorder G40.909 [facility] [id number] [place] [address] 65235- 3943 Mar, [facility] [id number] [place] [address] 97422- 2012 Mar, [facility] [id number] [place] [address] 95449- 1062 Mar, [place] [address] [address]- 2218 Mar, [place] [id number] [place] [address] 13645- 1191 Mar, High risk sexual behavior Z72.51 [place] [id number] [place] [address] 81204- 0550 Mar, Severe episode of recurrent major depressive disorder, without psychotic features F33.2 and Anxiety, generalized F41.1 [place] [id number] [place] [address] 61646- 6393 Mar, Anxiety F41.9 and Type 2 diabetes mellitus with diabetic autonomic (poly)neuropathy E11.43 [place] [id number] [place] [address] 99598- 1336 Mar, Anxiety F41.9 [place] [id number] [place] [address] 69520- 7212 Mar, High risk sexual behavior Z72.51 [place] [id number] [place] [address] 66111- 5181 Mar, Chronic pain syndrome G89.4 [place] [id number] [place] [address] 82229- 8978 Mar, Type 2 diabetes mellitus with diabetic autonomic (poly) neuropathy E11.43 [place] [id number] [place] [address] 86132- 0641 Mar, [place] [id number] [place] [address] 01268- 7294 Mar, Closed nondisplaced fracture of second metatarsal bone of left foot, initial encounter S92.325A ; Chronic pain syndrome G89.4 ; Closed nondisplaced fracture of third metatarsal bone of left foot, initial encounter S92.335A ; Acute left ankle pain M25.572 and Type 2 diabetes mellitus with diabetic autonomic (poly)neuropathy E11.43 [place] [id number] [place] [address] [phone]- 3667 Mar, [facility] [id number] [place] [address] [phone]- 5205 Mar, [facility] [id number] [place] [address] [phone]- [phone] Mar, Severe episode of recurrent major depressive disorder, without psychotic features F33.2 and Anxiety, generalized F41.1 [facility] [id number] [place] [address] [id number]- 9834 Feb, [facility] [id number] [place] [address] 10409- 6512 Feb, Renal insufficiency N28.9 [facility] [id number] [place] [address] [phone]- 1849 Feb, [facility] [id number] [place] [address] 42756- 0072 Feb, Severe episode of recurrent major depressive disorder, without psychotic features F33.2 and Anxiety, generalized F41.1 [facility] [id number] [place] [address] 61393- 7132 Feb, [facility] [id number] [place] [address] 28520- 2185 22 Feb, 2017 [facility] [id number] [place] [address] 94792- 8631 Feb, Renal insufficiency N28.9 [facility] [id number] [place] [address] 98811- 6721 19 Feb, 2017 [facility] [id number] [place] [address] 06354 -2716 18 Feb, 2017 [facility] [id number] [place] [address] 73824- 8740 14 Feb, 2017 [facility] [id number] [place] [address] 28416- 5817 13 Feb, 2017 Severe episode of recurrent major depressive disorder, without psychotic features F33.2 and Anxiety, generalized F41.1 [facility] [id number] [place] [address] 04856- 7500 13 Feb, 2017 Closed nondisplaced fracture of second metatarsal bone of left foot, initial encounter S92.325A ; Chronic pain syndrome G89.4 ; Closed nondisplaced fracture of third metatarsal bone of left foot, initial encounter S92.335A ; Left hip pain M25.552 and Stage 3 chronic kidney disease N18.3 [facility] [id number] [place] [address] 52247- 7706 07 Feb, 2017 [facility] [id number] [place] [address] 69526- 6554 Feb, [facility] [id number] [place] [address] 30679- 2669 Feb, Closed nondisplaced fracture of second metatarsal bone of left foot, initial encounter S92.325A and Closed nondisplaced fracture of third metatarsal bone of left foot, initial encounter S92.335A [facility] [id number] [place] [address] 24873- 5562 Feb, [facility] [id number] [place] [address] 16439 2545 Feb, Anxiety F41.9 [facility] [id number] [place] [address] 72333- 8863 Feb, [facility] [id number] [place] [address] 71711- 4689 Feb, Chronic pain syndrome G89.4 [facility] [id number] [place] [address] 57300- 1565 05 Feb, 2017 Left foot pain M79.672 ; Closed nondisplaced fracture of second metatarsal bone of left foot, initial encounter S92.325A ; Closed nondisplaced fracture of third metatarsal bone of left foot, initial encounter S92.335A and Oral infection K12.2 [facility] [id number] [place] [address] 86662- 5626 Feb, [place] [id number] [place] [address] 85734- 4366 Jan, [place] [id number] [place] [address] 03934- 2797 Jan, Type 2 diabetes mellitus with diabetic autonomic (poly) neuropathy E11.43 and Congestive heart failure, unspecified congestive heart failure chronicity, unspecified congestive heart failure type I50.9 [place] [id number] [place] [address] 54958- 4287 Jan, Congestive heart failure, unspecified congestive heart failure chronicity, unspecified congestive heart failure type I50.9 and Stage 3 chronic kidney disease N18.3 [place] [id number] [place] [address] 57685- 7660 Jan, Stage 3 chronic kidney disease N18.3 ; Edema of both legs R60.0 ; Chronic congestive heart failure, unspecified congestive heart failure type I50.9 ; Acute low back pain without sciatica, unspecified back pain laterality M54.5 ; Chronic nausea R11.0 and Primary insomnia F51.01 [place] [id number] [place] [address] 47946- 3275 Jan, Severe episode of recurrent major depressive disorder, without psychotic features F33.2 and Anxiety, generalized F41.1 [place] [id number] [place] [address] 28770- 4735 Jan, [place] [id number] [place] [address] 85397- 8671 Jan, [place] [id number] [place] [address] 68096- 5403 Jan, [place] [id number] [place] [address] 01539- 4457 Jan, [place] [id number] [place] [address] 51901- 6877 Jan, Anxiety F41.9 and Severe episode of recurrent major depressive disorder, without psychotic features F33.2 [place] [id number] [place] [address] 02722- 2744 Jan, Type 2 diabetes mellitus with diabetic autonomic (poly) neuropathy E11.43 [place] [id number] [place] [address] 43139- 5856 Jan, Severe episode of recurrent major depressive disorder, without psychotic features F33.2 and Type 2 diabetes mellitus with diabetic autonomic (poly)neuropathy E11.43 [place] [id number] [place] [address] 19916- 1306 Jan, [place] [id number] [place] [address] 65844- 0970 Jan, [place] [id number] [place] [address] 48001- 4380 Jan, Stage 3 chronic kidney disease N18.3 ; Seizure disorder G40.909 ; Edema of both legs R60.0 and Blister (nonthermal), right foot, initial encounter S90.821A [place] [id number] [place] [address] 10065- 5703 Jan, Severe episode of recurrent major depressive disorder, without psychotic features F33.2 and Anxiety, generalized F41.1 [place] [id number] [place] [address] 54142- 9722 Jan, Severe episode of recurrent major depressive disorder, without psychotic features F33.2 and Anxiety, generalized F41.1 [place] [id number] [place] [address] 21122- 1710 Jan, [place] [id number] [place] [address] 91397- 3642 Jan, Anxiety F41.9 and Primary insomnia F51.01 [place] [id number] [place] [address] 01495- 5239 Jan, Type 2 diabetes mellitus with diabetic autonomic (poly) neuropathy E11.43 ; 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 ; Stage 3 chronic kidney disease N18.3 ; Chronic pain syndrome G89.4 ; Swelling of mandible R22.0 and Seizure disorder G40.909 [place] [id number] [place] [address] 73550- 1221 Jan, [place] [id number] [place] [address] 86414- 4470 Jan, [place] [id number] [place] [address] 77632- 3382 Dec, Severe episode of recurrent major depressive disorder, without psychotic features F33.2 and Anxiety, generalized F41.1 [place] [id number] [place] [address] 99400- 2863 Dec, Diarrhea, unspecified type R19.7 ; Gastritis determined by endoscopy K29.70 ; Dysuria R30.0 ; Unspecified abdominal pain R10.9 ; Unspecified fall W19.XXXA and Need for assistance with personal care Z74.1 [place] [id number] [place] [address] 03199- 4661 Dec, Severe episode of recurrent major depressive disorder, without psychotic features F33.2 and Anxiety, generalized F41.1 [place] [id number] [place] [address] 51469- 1476 Dec, Diarrhea, unspecified type R19.7 ; Dysuria R30.0 ; Unspecified abdominal pain R10.9 ; Gastritis determined by endoscopy K29.70 ; Unspecified fall W19.XXXA and Need for assistance with personal care Z74.1 [place] [id number] [place] [address] 11950- 4545 Dec, [place] [id number] [place] [address] 58431- 4306 Dec, [place] [id number] [place] [address] 38504- 2818 Dec, Type 2 diabetes mellitus with diabetic autonomic (poly) neuropathy E11.43 [place] [id number] [place] [address] 43204- 2295 17 Dec, 2016 Severe episode of recurrent major depressive disorder, without psychotic features F33.2 and Anxiety, generalized F41.1 [facility] [id number] [place] [address] 07672 -6750 17 Dec, 2016 Abscessed tooth K04.7 [facility] [id number] [place] [address] 56000- 5974 Dec, Severe episode of recurrent major depressive disorder, without psychotic features F33.2 and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
--- OUTSIDE RECORDS SUMMARY | 2017-12-04 20:38 | XMS REPORT ---
Author Author MIRZA MARTINO Organization [facility] Address [address] [place] [address] Care Team Providers Care Quiller Hand Name Role Phone HAIMLindsey MIRZA Unavailable PROBLEMS Type Condition ICD9-CM Code NHX83-TA Code Onset Dates Condition Status SNOMED Code Problem Postural hypotension I95.1 Active 53947186 Problem Seizure disorder G40.909 Active 163708303 Problem Seasonal allergic rhinitis, unspecified allergic rhinitis trigger J30.2 Active 751126437 Problem Closed nondisplaced fracture of second metatarsal bone of left foot, initial encounter S92.325A Active 50825047 Problem Essential hypertension I10 Active 49956425 Problem Multiple neurological symptoms R29.90 Active 465428334 Problem Port catheter in place Z95.828 Active 017237199 Problem Stage 3 chronic kidney disease N18.3 Active 563223569 Problem Gastritis determined by endoscopy K29.70 Active 1262836 Problem Self-inflicted injury Z72.89 Active 110872060 Problem Borderline personality disorder in adult F60.3 Active 92510729 Problem Chronic congestive heart failure, unspecified congestive heart failure type I50.9 Active 27959527 Problem Chronic pain syndrome G89.4 Active 845661257 Problem Primary insomnia F51.01 Active 4708295 Problem Acquired hypothyroidism E03.9 Active 806148241 Problem Gastroparesis K31.84 Active 433463272 Problem Severe episode of recurrent major depressive disorder, without psychotic features F33.2 Active 91201610 Problem Anxiety, generalized F41.1 Active 62503033 Problem 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 Active 363921333 Problem Type 2 diabetes mellitus with diabetic polyneuropathy E11.42 Active 07730842 Problem Tobacco abuse Z72.0 Active 952656589 Problem Noncompliance with diabetes treatment Z91.19 Active [id number] ALLERGIES No Information ENCOUNTERS Encounter Location Date Diagnosis [facility] [id number] [address] October, [facility] [id number] [place] [address] 01927- 5328 October, [facility] [id number] [place] [address] 15951- 6068 October, [facility] [id number] [place] [address] 29785- 4049 October, [facility] [id number] [place] [address] 85780- 8241 Sep, Severe episode of recurrent major depressive disorder, without psychotic features F33.2 ; Anxiety, generalized F41.1 and Borderline personality disorder in adult F60.3 [facility] [id number] [place] [address] 12348- 2759 Sep, [facility] [id number] [place] [address] 11787- 5401 Sep, Throat pain R07.0 ; BMI 40.0-44.9, adult Z68.41 and Chronic pain syndrome G89.4 [facility] [id number] [place] [address] 33537- 1694 Sep, [facility] [id number] [place] [address] 30337- 1273 Sep, [facility] [id number] [place] [address] 74426- 3034 Sep, [facility] [id number] [place] [address] 99956- 2421 Sep, Anxiety, generalized F41.1 [facility] [id number] [place] [address] 70825- 0804 Sep, [facility] [id number] [place] [address] 77411- 4914 Sep, Stage 3 chronic kidney disease N18.3 [facility] [id number] [place] [address] 41123- 6702 Sep, Stage 3 chronic kidney disease N18.3 and Chronic pain syndrome G89.4 [facility] [id number] [place] [address] 43113- 7582 Sep, Severe episode of recurrent major depressive disorder, without psychotic features F33.2 ; Anxiety, generalized F41.1 and Borderline personality disorder in adult F60.3 [facility] [address] 74100- 9424 04 Sep, 2017 Chronic pain syndrome G89.4 ; Anxiety, generalized F41.1 and BMI 45.0-49.9, adult Z68.42 [facility] [address] 76505- 1895 Sep, [facility] [address] 39443- 3725 Sep, [facility] [address] 78983- 1639 Sep, Severe episode of recurrent major depressive disorder, without psychotic features F33.2 ; Anxiety, generalized F41.1 and Borderline personality disorder in adult F60.3 [facility] [address] 67943- 6128 Sep, [facility] [id number] [place] [address] 79680 -2200 Aug, Dysuria R30.0 ; Type 2 diabetes mellitus with diabetic polyneuropathy E11.42 ; Oral abscess K12.2 and BMI 40.0-44.9, adult Z68.41 [facility] [id number] [place] [address] 93121- 2803 Aug, [facility] [address] 54482- 7610 Aug, [facility] [id number] [place] [address] 40614- 0600 Aug, [facility] [address] 99846- 2117 27 Aug, 2017 [facility] [address] [address] 3040 27 Aug, 2017 Severe episode of recurrent major depressive disorder, without psychotic features F33.2 ; Anxiety, generalized F41.1 and Borderline personality disorder in adult F60.3 [facility] [address] [address]- 4856 22 Aug, 2017 [facility] [id number] [place] [address] 34067- 0310 20 Aug, 2017 [facility] [id number] [place] [address] 63047- 4637 19 Aug, 2017 Severe episode of recurrent major depressive disorder, without psychotic features F33.2 ; Anxiety, generalized F41.1 and Borderline personality disorder in adult F60.3 [facility] [address] [address] 17 Aug, 2017 [facility] [id number] [address] 7635 15 Aug, 2017 [facility] [id number] [place] [address] 58126- 1808 14 Aug, 2017 [facility] [address] [address] 14 Aug, 2017 Dysuria R30.0 ; Dental infection K04.7 ; Acute cystitis with hematuria N30.01 and BMI 45.0-49.9, adult Z68.42 [facility] [address] [address]- 7767 14 Aug, 2017 Severe episode of recurrent major depressive disorder, without psychotic features F33.2 ; Anxiety, generalized F41.1 and Borderline personality disorder in adult F60.3 [facility] [address] [address]- 8300 09 Aug, 2017 [place] [address] [address]- 5670 Aug, Closed nondisplaced fracture of second metatarsal bone of left foot, initial encounter S92.325A and Chronic pain syndrome G89.4 [facility] [id number] [place] [address] 83286- 8401 08 Aug, 2017 Type 2 diabetes mellitus with diabetic polyneuropathy E11.42 [facility] [id number] [place] [address] 50961- 8936 Aug, Severe episode of recurrent major depressive disorder, without psychotic features F33.2 ; Anxiety, generalized F41.1 and Borderline personality disorder in adult F60.3 [facility] [address] [place] [address] 38588- 5655 07 Aug, 2017 [facility] [id number] [place] [address] 73281- 1199 Aug, [facility] [id number] [place] [address] 43463- 4214 Aug, [facility] [id number] [place] [address] 56089- 4133 Aug, [facility] [id number] [place] [address] 58887- 5895 Aug, [facility] [id number] [place] [address] 35376- 4748 Jul, [facility] [id number] [address]- 2387 Jul, [facility] [address] [place] [address] 37963- 8260 Jul, Severe episode of recurrent major depressive disorder, without psychotic features F33.2 ; Anxiety, generalized F41.1 and Borderline personality disorder in adult F60.3 [facility] [address] [address]- 8719 Jul, Type 2 diabetes mellitus with diabetic polyneuropathy E11.42 [facility] [id number] [place] [address] 31388- 5218 Jul, Closed nondisplaced fracture of second metatarsal bone of left foot, initial encounter S92.325A and Closed nondisplaced fracture of third metatarsal bone of left foot, initial encounter S92.335A [facility] [id number] [place] [address] 01543- 1664 Jul, [facility] [id number] [place] [address] 06791- 1704 Jul, Closed nondisplaced fracture of second metatarsal bone of left foot, initial encounter S92.325A ; Acute left ankle pain M25.572 ; Acute midline low back pain without sciatica M54.5 and Seasonal allergic rhinitis, unspecified allergic rhinitis trigger J30.2 [facility] [id number] [place] [address] 40932- 3577 Jul, [facility] [address] 79310- 3615 Jul, [facility] [id number] [place] [address] 23924- 5367 Jul, [facility] [id number] [place] [address] 87944- 9474 15 Jul, 2017 Frequent falls R29.6 [facility] [id number] [place] [address] 80869- 2918 14 Jul, 2017 Frequent falls R29.6 [facility] [id number] [place] [address] 49857- 1005 Jul, Severe episode of recurrent major depressive disorder, without psychotic features F33.2 ; Anxiety, generalized F41.1 and Borderline personality disorder in adult F60.3 [facility] [id number] [place] [address] 97847- 8656 07 Jul, 2017 Chronic pain syndrome G89.4 [facility] [id number] [place] [address] 38678- 0835 07 Jul, 2017 residential current use of insulin Z79.4 [facility] [id number] [place] [address] 52447- 0225 Jul, [facility] [id number] [place] [address] 92218- 0317 Jul, Type 2 diabetes mellitus with diabetic polyneuropathy E11.42 [facility] [id number] [place] [address] 90830- 9490 Jun, residential current use of insulin Z79.4 and Thrush B37.0 [facility] [id number] [place] [address] 27410- 7602 Jun, Severe episode of recurrent major depressive disorder, without psychotic features F33.2 ; Anxiety, generalized F41.1 and Borderline personality disorder in adult F60.3 [facility] [id number] [place] [address] 57594- 0053 Jun, Severe episode of recurrent major depressive disorder, without psychotic features F33.2 ; Anxiety, generalized F41.1 and Borderline personality disorder in adult F60.3 [facility] [id number] [place] [address] 82919- 4270 Jun, Frequent falls R29.6 ; Bronchitis J40 ; BMI 40.0-44.9, adult Z68.41 and Coccygeal pain, acute M53.3 [facility] [id number] [place] [address] 22762- 1927 Jun, [facility] [id number] [place] [address] 32540 -5706 Jun, [facility] [id number] [place] [address] 67791- 3061 Jun, [facility] [id number] [place] [address] 82456- 4353 Jun, Dental caries, unspecified K02.9 [facility] [id number] [place] [address] 46642- 1079 Jun, Acute non-recurrent maxillary sinusitis J01.00 and BMI 40.0- 44.9, adult Z68.41 [facility] [id number] [place] [address] 28628- 8044 Jun, [facility] [id number] [place] [address] 43043- 4156 Jun, Severe episode of recurrent major depressive disorder, without psychotic features F33.2 ; Anxiety, generalized F41.1 and Borderline personality disorder in adult F60.3 [facility] [address] [place] [address] 77821- 0922 11 Jun, 2017 Closed nondisplaced fracture of third metatarsal bone of left foot with routine healing, subsequent encounter S92.335D ; Closed nondisplaced fracture of second metatarsal bone of left foot with routine healing, subsequent encounter S92.325D and Closed nondisplaced fracture of fourth metatarsal bone of left foot with routine healing, subsequent encounter S92.345D [facility] [address] [place] [address] 69898- 5619 Jun, Severe episode of recurrent major depressive disorder, without psychotic features F33.2 ; Anxiety, generalized F41.1 and Borderline personality disorder in adult F60.3 [facility] [address] [address]- 8322 Jun, [place] [facility] [id number] [address]- 5011 Jun, [facility] [id number] [place] [address] 67004- 3964 Jun, [facility] [id number] [place] [address] 20446- 9700 Jun, [place] [id number] [place] [address] 58670- 0043 Jun, [place] [id number] [place] [address] 84391- 6009 Jun, Anxiety F41.9 [facility] [id number] [address]- 2498 Jun, [facility] [id number] [place] [address] 71102- 3809 Jun, [facility] [address] [address]- 3769 Jun, Type 2 diabetes mellitus with diabetic autonomic (poly) neuropathy E11.43 [facility] [id number] [place] [address] 56485- 8165 Jun, Severe episode of recurrent major depressive disorder, without psychotic features F33.2 ; Anxiety, generalized F41.1 and Borderline personality disorder in adult F60.3 [facility] [address] [place] [address] 45354- 3989 Jun, Type 2 diabetes mellitus with diabetic autonomic (poly) neuropathy E11.43 and Chronic pain syndrome G89.4 [address] [place] [address] 04172- 9988 20 May, 2017 Recent urinary tract infection Z87.440 ; Deliberate self- cutting Z72.89 ; Chest discomfort R07.89 ; BMI 40.0-44.9, adult Z68.41 and Worried well Z71.1 [address] [address]- 6104 19 May, 2017 Severe episode of recurrent major depressive disorder, without psychotic features F33.2 ; Anxiety, generalized F41.1 and Borderline personality disorder in adult F60.3 [facility] [address] [address]- 2473 18 May, 2017 [address] [id number] [place] [address] 08689- 8821 14 May, 2017 [place] [address] [address]- 8277 May, Type 2 diabetes mellitus with diabetic autonomic (poly) neuropathy E11.43 [facility] [id number] [place] [address] 67562- 6892 May, Severe episode of recurrent major depressive disorder, without psychotic features F33.2 ; Anxiety, generalized F41.1 and Borderline personality disorder in adult F60.3 [facility] [id number] [place] [address] 44551- 6540 May, [facility] [id number] [place] [address] 54893- 3219 May, Type 2 diabetes mellitus with diabetic autonomic (poly) neuropathy E11.43 ; Multiple neurological symptoms R29.90 ; Dysuria R30.0 ; Tobacco abuse Z72.0 ; Right hip pain M25.551 ; Anxiety F41.9 ; Gastritis determined by endoscopy K29.70 ; Chronic pain syndrome G89.4 ; Acute non- recurrent maxillary sinusitis J01.00 ; Self mutilating behavior Z72.89 and BMI 40.0-44.9, adult Z68.41 [facility] [id number] [place] [address] 27400- 3814 May, Severe episode of recurrent major depressive disorder, without psychotic features F33.2 ; Anxiety, generalized F41.1 and Borderline personality disorder in adult F60.3 [facility] [id number] [place] [address] 64706- 5497 Apr, [place] [facility] [id number] [place] [address] 02948- 6097 Apr, [facility] [id number] [place] [address] 42012 -3122 Apr, [facility] [id number] [place] [address] 92525 -4713 Apr, Aspiration pneumonia of right lower lobe, unspecified aspiration pneumonia type J69.0 [facility] [id number] [place] [address] 10805- 8648 Apr, Severe episode of recurrent major depressive disorder, without psychotic features F33.2 ; Anxiety, generalized F41.1 and Borderline personality disorder in adult F60.3 [facility] [id number] [address]- 4431 Apr, [facility] [id number] [place] [address] 63806- 8573 Apr, Chronic pain syndrome G89.4 [facility] [address] [address]- 4585 21 Apr, 2017 Severe episode of recurrent major depressive disorder, without psychotic features F33.2 ; Anxiety, generalized F41.1 and Borderline personality disorder in adult F60.3 [facility] [address] [place] [address] 43154- 2637 16 Apr, 2017 Severe episode of recurrent major depressive disorder, without psychotic features F33.2 ; Anxiety, generalized F41.1 and Borderline personality disorder in adult F60.3 [facility] [address] [place] [address] 04460- 5279 16 Apr, 2017 Closed nondisplaced fracture of third metatarsal bone of left foot with routine healing, subsequent encounter S92.335D ; Closed nondisplaced fracture of fourth metatarsal bone of left foot with routine healing, subsequent encounter S92.345D and Closed nondisplaced fracture of second metatarsal bone of left foot with routine healing, subsequent encounter S92.325D [facility] [address] [address]- 3160 16 Apr, 2017 [place] [address] [place] [address] 92212- 6943 15 Apr, 2017 [place] [id number] [place] [address] 41335- 5793 14 Apr, 2017 [place] [address] [place] [address] 88137- 6839 13 Apr, 2017 Screening breast examination Z12.31 [facility] [address] [place] [address] 73756- 2151 09 Apr, 2017 [place] [address] [place] [address] 71705- 4984 Apr, Type 2 diabetes mellitus with diabetic autonomic (poly) neuropathy E11.43 [facility] [address] [place] [address] 40842- 8366 Apr, Severe episode of recurrent major depressive disorder, without psychotic features F33.2 ; Anxiety, generalized F41.1 and Borderline personality disorder in adult F60.3 [facility] [id number] [place] [address] 69060- 9551 Apr, Type 2 diabetes mellitus with diabetic autonomic (poly) neuropathy E11.43 ; Chronic pain syndrome G89.4 and Anxiety F41.9 [facility] [id number] [place] [address] 21979 -4707 Apr, BMI 45.0-49.9, adult Z68.42 [facility] [id number] [place] [address] 69755 -9841 Apr, Avulsion of toenail, initial encounter S91.209A and Acute non-recurrent maxillary sinusitis J01.00 [facility] [id number] [place] [address] 01976- 6751 Apr, [place] [id number] [place] [address] 20213- 1272 Mar, [facility] [id number] [place] [address] 05958- 6050 Mar, Severe episode of recurrent major depressive disorder, without psychotic features F33.2 ; Anxiety, generalized F41.1 and Borderline personality disorder in adult F60.3 [facility] [id number] [place] [address] 85799- 1939 Mar, [facility] [id number] [place] [address] 54614- 6672 Mar, [facility] [id number] [place] [address] 73371- 5988 Mar, [facility] [id number] [place] [address] 69146- 2184 Mar, Seizure disorder G40.909 [facility] [address] [address]- 5480 Mar, [facility] [id number] [place] [address] 09374- 4793 Mar, [facility] [address] [place] [address] 11154 -8495 Mar, Left foot pain M79.672 ; Stage 3 chronic kidney disease N18.3 and Closed nondisplaced fracture of second metatarsal bone of left foot, initial encounter S92.325A [facility] [id number] [place] [address] 00191- 8536 Mar, Severe episode of recurrent major depressive disorder, without psychotic features F33.2 and Anxiety, generalized F41.1 [facility] [id number] [place] [address] 51572- 8161 Mar, [facility] [id number] [place] [address] [phone] Mar, Closed nondisplaced fracture of second metatarsal bone of left foot, initial encounter S92.325A and Closed nondisplaced fracture of third metatarsal bone of left foot, initial encounter S92.335A [facility] [id number] [place] [address] [id number]- [id number] Mar, Seizure disorder G40.909 [facility] [id number] [place] [address] [id number]- [id number] Mar, [facility] [id number] [place] [address] [phone] Mar, [facility] [id number] [place] [address] [phone] Mar, [facility] [id number] [place] [address] [phone] Mar, [facility] [id number] [place] [address] [phone]- [phone] Mar, High risk sexual behavior Z72.51 [facility] [id number] [place] [address] [phone] Mar, Severe episode of recurrent major depressive disorder, without psychotic features F33.2 and Anxiety, generalized F41.1 [facility] [id number] [place] [address] 14997- 0002 Mar, Anxiety F41.9 and Type 2 diabetes mellitus with diabetic autonomic (poly)neuropathy E11.43 [facility] [address] [place] [place] [id number] [place] [address] 89063- 0437 Mar, Anxiety F41.9 [facility] [id number] [place] [address] 17263- 2990 Mar, High risk sexual behavior Z72.51 [facility] [id number] [place] [address] 37846- 5200 Mar, Chronic pain syndrome G89.4 [facility] [id number] [place] [address] 05474- 0410 Mar, Type 2 diabetes mellitus with diabetic autonomic (poly) neuropathy E11.43 [facility] [id number] [place] [address] 61215- 7215 Mar, [facility] [id number] [place] [address] 47836- 8994 Mar, Closed nondisplaced fracture of second metatarsal bone of left foot, initial encounter S92.325A ; Chronic pain syndrome G89.4 ; Closed nondisplaced fracture of third metatarsal bone of left foot, initial encounter S92.335A ; Acute left ankle pain M25.572 and Type 2 diabetes mellitus with diabetic autonomic (poly)neuropathy E11.43 [facility] [address] [address] 59[address] Mar, [facility] [address] [address] 8845 Mar, [facility] [id number] [place] [address] 28795- 1753 Mar, Severe episode of recurrent major depressive disorder, without psychotic features F33.2 and Anxiety, generalized F41.1 [facility] [id number] [place] [address] 65015- 1213 Feb, [facility] [id number] [place] [address] 71663- 2486 Feb, Renal insufficiency N28.9 [facility] [id number] [place] [address] 92683- 8695 Feb, [facility] [id number] [place] [address] 09182- 7827 Feb, Severe episode of recurrent major depressive disorder, without psychotic features F33.2 and Anxiety, generalized F41.1 [facility] [id number] [place] [address] 87087- 5744 Feb, [facility] [id number] [place] [address] 66430- 5400 22 Feb, 2017 [facility] [id number] [place] [address] 90345- 6145 20 Feb, 2017 Renal insufficiency N28.9 [facility] [id number] [place] [address] 07674- 1418 19 Feb, 2017 [facility] [id number] [place] [address] 91781 -1481 18 Feb, 2017 [facility] [id number] [place] [address] 36612- 4196 14 Feb, 2017 [facility] [id number] [place] [address] 97705- 3584 13 Feb, 2017 Severe episode of recurrent major depressive disorder, without psychotic features F33.2 and Anxiety, generalized F41.1 [facility] [id number] [address]- 6706 13 Feb, 2017 Closed nondisplaced fracture of second metatarsal bone of left foot, initial encounter S92.325A ; Chronic pain syndrome G89.4 ; Closed nondisplaced fracture of third metatarsal bone of left foot, initial encounter S92.335A ; Left hip pain M25.552 and Stage 3 chronic kidney disease N18.3 [facility] [id number] [place] [address] 04305- 3859 Feb, [facility] [address] [facility] [id number] [place] [address] 37881- 1077 Feb, [facility] [address] [facility] [id number] [place] [address] 73814- 8242 Feb, Closed nondisplaced fracture of second metatarsal bone of left foot, initial encounter S92.325A and Closed nondisplaced fracture of third metatarsal bone of left foot, initial encounter S92.335A [place] [id number] [place] [address] 76089- 3197 Feb, [facility] [id number] [place] [address] 41194- 8734 Feb, Anxiety F41.9 [facility] [id number] [place] [address] 85077- 7044 Feb, [facility] [id number] [place] [address] 51416- 8767 Feb, Chronic pain syndrome G89.4 [facility] [address] [id number] [place] [address] 27694- 2545 05 Feb, 2017 Left foot pain M79.672 ; Closed nondisplaced fracture of second metatarsal bone of left foot, initial encounter S92.325A ; Closed nondisplaced fracture of third metatarsal bone of left foot, initial encounter S92.335A and Oral infection K12.2 [facility] [address] [facility] [id number] [place] [address] 22492- 3917 Feb, [facility] [id number] [place] [address] 82868- 8222 Jan, [place] [id number] [place] [address] 82555- 2398 Jan, Type 2 diabetes mellitus with diabetic autonomic (poly) neuropathy E11.43 and Congestive heart failure, unspecified congestive heart failure chronicity, unspecified congestive heart failure type I50.9 [facility] [id number] [place] [address] 54115- 5014 Jan, Congestive heart failure, unspecified congestive heart failure chronicity, unspecified congestive heart failure type I50.9 and Stage 3 chronic kidney disease N18.3 [place] [id number] [place] [address] 67838- 6076 Jan, Stage 3 chronic kidney disease N18.3 ; Edema of both legs R60.0 ; Chronic congestive heart failure, unspecified congestive heart failure type I50.9 ; Acute low back pain without sciatica, unspecified back pain laterality M54.5 ; Chronic nausea R11.0 and Primary insomnia F51.01 [place] [id number] [place] [address] 11217- 1792 Jan, Severe episode of recurrent major depressive disorder, without psychotic features F33.2 and Anxiety, generalized F41.1 [place] [id number] [place] [address] 45867- 5163 Jan, [place] [id number] [place] [address] 00730- 9554 Jan, [place] [id number] [place] [address] 75645- 4943 Jan, [place] [id number] [place] [address] 37058- 2232 Jan, [place] [id number] [place] [address] 10045- 6580 Jan, Anxiety F41.9 and Severe episode of recurrent major depressive disorder, without psychotic features F33.2 [place] [id number] [place] [address] 63029- 7175 Jan, Type 2 diabetes mellitus with diabetic autonomic (poly) neuropathy E11.43 [place] [id number] [place] [address] 95760- 6107 Jan, Severe episode of recurrent major depressive disorder, without psychotic features F33.2 and Type 2 diabetes mellitus with diabetic autonomic (poly)neuropathy E11.43 [facility] [place] [id number] [place] [address] 94006- 9531 Jan, [place] [id number] [place] [address] 83941- 3894 Jan, [place] [id number] [place] [address] 38580- 3570 Jan, Stage 3 chronic kidney disease N18.3 ; Seizure disorder G40.909 ; Edema of both legs R60.0 and Blister (nonthermal), right foot, initial encounter S90.821A [place] [id number] [place] [address] 37556- 0362 Jan, Severe episode of recurrent major depressive disorder, without psychotic features F33.2 and Anxiety, generalized F41.1 [place] [id number] [place] [address] 17403- 9921 Jan, Severe episode of recurrent major depressive disorder, without psychotic features F33.2 and Anxiety, generalized F41.1 [place] [id number] [place] [address] 62007- 0308 Jan, [place] [id number] [place] [address] 87948- 3709 Jan, Anxiety F41.9 and Primary insomnia F51.01 [place] [id number] [place] [address] 50528- 0306 Jan, Type 2 diabetes mellitus with diabetic autonomic (poly) neuropathy E11.43 ; residential current use of insulin Z79.4 ; Stage 3 chronic kidney disease N18.3 ; Chronic pain syndrome G89.4 ; Swelling of mandible R22.0 and Seizure disorder G40.909 [place] [id number] [place] [address] 32942- 7863 Jan, [place] [id number] [place] [address] 32208- 5660 Jan, [place] [id number] [place] [address] 81886- 8964 Dec, Severe episode of recurrent major depressive disorder, without psychotic features F33.2 and Anxiety, generalized F41.1 [place] [id number] [place] [address] 75614- 5070 Dec, Diarrhea, unspecified type R19.7 ; Gastritis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
--- OUTSIDE RECORDS SUMMARY | 2017-12-04 20:39 | XMS REPORT ---
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 Active 677785423 Problem Recurrent major depressive disorder, remission status unspecified F33.9 Active 43349044 Problem Severe episode of recurrent major depressive disorder, without psychotic features F33.2 Active 51555994 Problem Tobacco abuse Z72.0 Active 257998223 Problem Anxiety, generalized F41.1 Active 19318040 Problem Weakness R53.1 Active 43090264 Problem Stage 3 chronic kidney disease N18.3 Active 944000690 Problem Vaginal bleeding N93.9 Active 023688083 Problem Chronic nausea R11.0 Active 717631951 Problem Right lower quadrant abdominal pain R10.31 Active 914642579 Problem Self-inflicted injury Z72.89 Active 275421516 Problem Noncompliance with diabetes treatment Z91.19 Active 0000434 Problem Unspecified fall W19.XXXA Active 7931871 Problem Type 2 diabetes mellitus with diabetic polyneuropathy E11.42 Active 68691153 Problem Gastritis determined by endoscopy K29.70 Active 0739337 Problem Unspecified abdominal pain R10.9 Active 988495574 Problem Diarrhea, unspecified type R19.7 Active 55788677 Problem Left hip pain M25.552 Active 62887259 Problem Closed nondisplaced fracture of second metatarsal bone of left foot, initial encounter S92.325A Active 68242806 Problem Neck pain M54.2 Active 82175724 Problem Thrush B37.0 Active 88728608 Problem Anxiety F41.9 Active 95756976 Problem Swelling of both lower extremities M79.89 Active 75113759456217602 Problem Essential hypertension I10 Active 79091122 Problem Edema of both legs R60.0 Active 572776589 Problem Acquired hypothyroidism E03.9 Active 462312742 Problem Blister (nonthermal), right foot, initial encounter S90.821A Active 754826190 Problem Congestive heart failure, unspecified congestive heart failure chronicity, unspecified congestive heart failure type I50.9 Active 29374106 Problem Closed nondisplaced fracture of third metatarsal bone of left foot, initial encounter S92.335A Active 673659388 Problem Port catheter in place Z95.828 Active 430680882 Problem Chronic congestive heart failure, unspecified congestive heart failure type I50.9 Active 30065424 Problem Primary insomnia F51.01 Active 6965030 Problem Postural hypotension I95.1 Active 64988789 Problem Screening breast examination Z12.39 Active 717176254 Problem Acute non-recurrent maxillary sinusitis J01.00 Active 92169870 Problem Type 2 diabetes mellitus with diabetic autonomic (poly)neuropathy E11.43 Active 757885261 Problem Syncope, unspecified syncope type R55 Active 230020614 Problem Chronic pain syndrome G89.4 Active 128474781 Problem Acute pain of right shoulder M25.511 Active 48201405 Problem Epigastric pain R10.13 Active 24689379 Problem Seizure disorder G40.909 Active 999041600 Problem Gastroparesis K31.84 Active 184909755 Problem Chronic superficial gastritis without bleeding K29.30 Active 824283356 Problem Seasonal allergic rhinitis, unspecified allergic rhinitis trigger J30.2 Active 731144064 Problem Swelling of mandible R22.0 Active 137150261 ALLERGIES Substance Reaction Event Type Date Status [...] CARE Activity Details Follow Up 1 Week Reason:CHF VITAL SIGNS Height 62 in 2016-08-16 Weight 268 lbs 2016-08-16 Temperature 98.6 degrees Fahrenheit 2016-08-16 Heart Rate 80 bpm 2016-08-16 Respiratory Rate 20 2016-08-16 BMI 49.01 kg/m2 2016-08-16 Blood pressure systolic 128 mmHg 2016-08-16 Blood pressure diastolic 94 mmHg 2016-08-16 MEDICATIONS Medication Instructions Dosage Frequency Start Date End Date Duration Status Zantac 150 MG Orally twice a day 1 tablet 12h 30 day(s) Active Nystatin 018401 UNIT/ML Mouth/Throat Four times a day 4 ml 6h Jul, Aug, 10 days Active Insulin Syringe 31G X / Active Nystatin 164848 UNIT/ML Mouth/Throat Four times a day 4 ml 6h Mar, Active Furosemide 20 mg Orally twice a day 2 tablets 12h 05 days Active Nystatin 853789 UNIT/GM Externally Twice a day apply to abdominal fold twice a day 12h Active Tizanidine HCl 4 MG Orally Three times a day 1 tablet as needed 8h Active Temazepam 30 MG Orally Once a day 1 capsule at bedtime as needed 24h Active Luis Fernando Contour Test - In Vitro 3 times a day as directed 8h Jan, Active Seroquel XR 50MG TAKE TWO TABLETS BY MOUTH ONCE DAILY AT BEDTIME 28 Active Chantix 0.5 MG Orally Twice a day 1 tablet 12h Apr, 10 Sep, 2016 30 day(s) Active Promethazine HCl 25 MG Orally 2 times a day 1 tablet as needed 12h 28 days Active Losartan Potassium-HCTZ 100-25 MG Orally Once a day 1 tablet 24h Active Benadryl Allergy 25 MG Orally Once a day at bedtime 2 tablet as needed Active Humulin R U-500 (Concentrated) 500 UNIT/ML Subcutaneous 3 times a day with meals 70 units Active Augmentin 875-125 MG Orally every 12 hrs 1 tablet 12h Jul, Aug, 10 day(s) Active Alprazolam 1 MG Orally Three times a day must last 28 days 1 tablet Active Tylenol Extra Strength 500 MG Orally 3 times a day 2 tablets as needed 8h Active Levothyroxine Sodium 75 MCG Orally Once a day 1 tablet 24h Active Atenolol 50 mg Orally Once a day 2 tablet 24h Active Oxygen 3L nasal canal Active Gabapentin 800 MG Orally 4 times a day 1 tablet 6h Active Naproxen 500 MG Orally every 12 hrs 1 tablet as needed 12h Jun, 28 days Active Escitalopram Oxalate 20 mg Orally Once a day 1 tablet 24h 30 Active RESULTS No Results PROCEDURES Procedure Date Ordered Result Body Site [facility] Aug 16, 2016 VENIPUNCT, ROUTINE* Aug 16, 2016 IMMUNIZATIONS No Known Immunizations MEDICAL (GENERAL) [...] delivery Hospitalization History Chest pain, uncontrolled Hyperglycemia--[facility]ia [facility] 12/15/15 Hospitalization History Influenza B Hospitalization History pneumonia Hospitalization History [facility] 07/16/16 Hospitalization History for high sugar 07/12
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
--- OUTSIDE RECORDS SUMMARY | 2017-12-04 20:42 | XMS REPORT ---
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 Active 325356396 Problem Recurrent major depressive disorder, remission status unspecified F33.9 Active 42047090 Problem Severe episode of recurrent major depressive disorder, without psychotic features F33.2 Active 86788436 Problem Tobacco abuse Z72.0 Active 128662089 Problem Anxiety, generalized F41.1 Active 97703059 Problem Weakness R53.1 Active 15336336 Problem Stage 3 chronic kidney disease N18.3 Active 098010089 Problem Vaginal bleeding N93.9 Active 802126045 Problem Chronic nausea R11.0 Active 166355766 Problem Right lower quadrant abdominal pain R10.31 Active 779468875 Problem Self-inflicted injury Z72.89 Active 341956555 Problem Noncompliance with diabetes treatment Z91.19 Active 3226300 Problem Unspecified fall W19.XXXA Active 1132647 Problem Type 2 diabetes mellitus with diabetic polyneuropathy E11.42 Active 49101613 Problem Gastritis determined by endoscopy K29.70 Active 4699673 Problem Unspecified abdominal pain R10.9 Active 233393530 Problem Diarrhea, unspecified type R19.7 Active 77766874 Problem Left hip pain M25.552 Active 21696287 Problem Closed nondisplaced fracture of second metatarsal bone of left foot, initial encounter S92.325A Active 58552230 Problem Neck pain M54.2 Active 82493072 Problem Thrush B37.0 Active 38935221 Problem Anxiety F41.9 Active 51298392 Problem Swelling of both lower extremities M79.89 Active 93452376854356106 Problem Essential hypertension I10 Active 67542988 Problem Edema of both legs R60.0 Active 957742679 Problem Acquired hypothyroidism E03.9 Active 384369548 Problem Blister (nonthermal), right foot, initial encounter S90.821A Active 947819121 Problem Congestive heart failure, unspecified congestive heart failure chronicity, unspecified congestive heart failure type I50.9 Active 25496444 Problem Closed nondisplaced fracture of third metatarsal bone of left foot, initial encounter S92.335A Active 878943269 Problem Port catheter in place Z95.828 Active 550941398 Problem Chronic congestive heart failure, unspecified congestive heart failure type I50.9 Active 55860190 Problem Primary insomnia F51.01 Active 5154708 Problem Postural hypotension I95.1 Active 32400201 Problem Screening breast examination Z12.39 Active 286614288 Problem Acute non-recurrent maxillary sinusitis J01.00 Active 11269249 Problem Type 2 diabetes mellitus with diabetic autonomic (poly)neuropathy E11.43 Active 658260807 Problem Syncope, unspecified syncope type R55 Active 315731381 Problem Chronic pain syndrome G89.4 Active 852494120 Problem Acute pain of right shoulder M25.511 Active 01808645 Problem Epigastric pain R10.13 Active 94141430 Problem Seizure disorder G40.909 Active 146789477 Problem Gastroparesis K31.84 Active 965926940 Problem Chronic superficial gastritis without bleeding K29.30 Active 972237355 Problem Seasonal allergic rhinitis, unspecified allergic rhinitis trigger J30.2 Active 591670989 Problem Swelling of mandible R22.0 Active 774260082 ALLERGIES Substance Reaction Event Type Date Status [...] OF CARE Activity Details Follow Up pending doppler Reason: VITAL SIGNS Height 62 in 2016-08-04 Weight 258.5 lbs 2016-08-04 Temperature 98 degrees Fahrenheit 2016-08-04 Heart Rate 74 bpm 2016-08-04 Respiratory Rate 18 2016-08-04 BMI 47.28 kg/m2 2016-08-04 Blood pressure systolic 116 mmHg 2016-08-04 Blood pressure diastolic 72 mmHg 2016-08-04 MEDICATIONS Medication Instructions Dosage Frequency Start Date End Date Duration Status Chantix 0.5 MG Orally Twice a day 1 tablet 12h 16 Apr, 2016 Sep, 30 day(s) Active Seroquel XR 50MG TAKE TWO TABLETS BY MOUTH ONCE DAILY AT BEDTIME 28 Active Luis Fernando Contour Test - In Vitro 3 times a day as directed 8h Jan, Active Oxygen 3L nasal canal Active Humulin R U-500 (Concentrated) 500 UNIT/ML Subcutaneous 3 times a day with meals 325 units Active Naproxen 500 MG Orally every 12 hrs 1 tablet as needed 12h Jun, 28 days Active Zantac 150 MG Orally twice a day 1 tablet 12h 30 day(s) Active Clindamycin HCl 150 MG Orally three times 1 capsule Jul, Jul, 7 days Active Nystatin 790966 UNIT/ML Mouth/Throat Four times a day 4 ml 6h 12 Mar, 2016 Active Insulin Syringe 31G X 5/16 Active Furosemide 20 mg Orally Once a day 1 tablet 24h Active Losartan Potassium-HCTZ 100-25 MG Orally Once a day 1 tablet 24h Active Atenolol 50 mg Orally Once a day 2 tablet 24h Active Levothyroxine Sodium 75 MCG Orally Once a day 1 tablet 24h Active Promethazine HCl 25 MG Orally 2 times a day 1 tablet as needed 12h 28 days Active Tizanidine HCl 4 MG Orally Three times a day 1 tablet as needed 8h Active Gabapentin 800 MG Orally 4 times a day 1 tablet 6h Active Temazepam 30 MG Orally Once a day 1 capsule at bedtime as needed 24h Active Nystatin 881753 UNIT/GM Externally Twice a day apply to abdominal fold twice a day 12h Active Alprazolam 1 MG Orally Three times a day must last 28 days 1 tablet Active Escitalopram Oxalate 20 mg Orally Once a day 1 tablet 24h 30 Active Benadryl Allergy 25 MG Orally Once a day at bedtime 2 tablet as needed Active Tylenol Extra Strength 500 MG Orally 3 times a day 2 tablets as needed 8h Active RESULTS No Results PROCEDURES No [...] vein (port for IV access) Dr. Hernandez [facility] 08-29-2013 Surgical History partial hysterectomy Surgical History EGD Hospitalization History transfusion given after delivery Hospitalization History Chest pain, uncontrolled Hyperglycemia--Via [facility] 12/15/15 Hospitalization History Influenza B Hospitalization History pneumonia Hospitalization History [facility] 07/16/16 Hospitalization History for high sugar 07/12
--- OUTSIDE RECORDS SUMMARY | 2017-12-04 20:42 | XMS REPORT ---
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 Active 291931080 Problem Recurrent major depressive disorder, remission status unspecified F33.9 Active 58938636 Problem Severe episode of recurrent major depressive disorder, without psychotic features F33.2 Active 75254425 Problem Tobacco abuse Z72.0 Active 227020587 Problem Anxiety, generalized F41.1 Active 88896693 Problem Weakness R53.1 Active 69068915 Problem Stage 3 chronic kidney disease N18.3 Active 651690681 Problem Vaginal bleeding N93.9 Active 593826260 Problem Chronic nausea R11.0 Active 803513138 Problem Right lower quadrant abdominal pain R10.31 Active 551656774 Problem Self-inflicted injury Z72.89 Active 652266389 Problem Noncompliance with diabetes treatment Z91.19 Active 5032631 Problem Unspecified fall W19.XXXA Active 0668763 Problem Type 2 diabetes mellitus with diabetic polyneuropathy E11.42 Active 96191092 Problem Gastritis determined by endoscopy K29.70 Active 1346428 Problem Unspecified abdominal pain R10.9 Active 321341863 Problem Diarrhea, unspecified type R19.7 Active 32881893 Problem Left hip pain M25.552 Active 99449157 Problem Closed nondisplaced fracture of second metatarsal bone of left foot, initial encounter S92.325A Active 04632940 Problem Neck pain M54.2 Active 58825452 Problem Thrush B37.0 Active 20590847 Problem Anxiety F41.9 Active 70698785 Problem Swelling of both lower extremities M79.89 Active 81367439427457911 Problem Essential hypertension I10 Active 29777359 Problem Edema of both legs R60.0 Active 779757985 Problem Acquired hypothyroidism E03.9 Active 443125075 Problem Blister (nonthermal), right foot, initial encounter S90.821A Active 340592110 Problem Congestive heart failure, unspecified congestive heart failure chronicity, unspecified congestive heart failure type I50.9 Active 42363858 Problem Closed nondisplaced fracture of third metatarsal bone of left foot, initial encounter S92.335A Active 334482980 Problem Port catheter in place Z95.828 Active 831000769 Problem Chronic congestive heart failure, unspecified congestive heart failure type I50.9 Active 88412742 Problem Primary insomnia F51.01 Active 1972134 Problem Postural hypotension I95.1 Active 00351833 Problem Screening breast examination Z12.39 Active 356268135 Problem Acute non-recurrent maxillary sinusitis J01.00 Active 44551770 Problem Type 2 diabetes mellitus with diabetic autonomic (poly)neuropathy E11.43 Active 365288075 Problem Syncope, unspecified syncope type R55 Active 726172416 Problem Chronic pain syndrome G89.4 Active 645983512 Problem Acute pain of right shoulder M25.511 Active 96165949 Problem Epigastric pain R10.13 Active 52519352 Problem Seizure disorder G40.909 Active 506916235 Problem Gastroparesis K31.84 Active 980781308 Problem Chronic superficial gastritis without bleeding K29.30 Active 607026997 Problem Seasonal allergic rhinitis, unspecified allergic rhinitis trigger J30.2 Active 399903458 Problem Swelling of mandible R22.0 Active 333394022 ALLERGIES No Information SOCIAL HISTORY Never Assessed [...] vein (port for IV access) Dr. Hernandez [facility] 08-29-2013 Surgical History partial hysterectomy Surgical History EGD Hospitalization History transfusion given after delivery Hospitalization History Chest pain, uncontrolled Hyperglycemia--Via [facility] 12/15/15 Hospitalization History Influenza B Hospitalization History pneumonia Hospitalization History [facility] 07/16/16 Hospitalization History for high sugar 07/12
--- OUTSIDE RECORDS SUMMARY | 2017-12-04 20:42 | XMS REPORT ---
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 Active 219530838 Problem Recurrent major depressive disorder, remission status unspecified F33.9 Active 17680034 Problem Severe episode of recurrent major depressive disorder, without psychotic features F33.2 Active 42036154 Problem Tobacco abuse Z72.0 Active 578057873 Problem Anxiety, generalized F41.1 Active 07820892 Problem Stage 3 chronic kidney disease N18.3 Active 545850805 Problem Weakness R53.1 Active 37678258 Problem High risk sexual behavior Z72.51 Active 413080440 Problem Vaginal bleeding N93.9 Active 131033976 Problem Chronic nausea R11.0 Active 636339659 Problem Right lower quadrant abdominal pain R10.31 Active 297265502 Problem Self-inflicted injury Z72.89 Active 568753531 Problem Noncompliance with diabetes treatment Z91.19 Active 4106467 Problem Unspecified fall W19.XXXA Active 3639347 Problem Type 2 diabetes mellitus with diabetic polyneuropathy E11.42 Active 50327043 Problem Gastritis determined by endoscopy K29.70 Active 7389855 Problem Unspecified abdominal pain R10.9 Active 706250516 Problem Diarrhea, unspecified type R19.7 Active 56288637 Problem Left hip pain M25.552 Active 09116801 Problem Closed nondisplaced fracture of second metatarsal bone of left foot, initial encounter S92.325A Active 31563107 Problem Neck pain M54.2 Active 13031438 Problem Thrush B37.0 Active 79209808 Problem Anxiety F41.9 Active 16639362 Problem Swelling of both lower extremities M79.89 Active 08801100541679883 Problem Essential hypertension I10 Active 71111583 Problem Edema of both legs R60.0 Active 872279181 Problem Acquired hypothyroidism E03.9 Active 079597722 Problem Blister (nonthermal), right foot, initial encounter S90.821A Active 615157473 Problem Congestive heart failure, unspecified congestive heart failure chronicity, unspecified congestive heart failure type I50.9 Active 46352426 Problem Closed nondisplaced fracture of third metatarsal bone of left foot, initial encounter S92.335A Active 994005090 Problem Port catheter in place Z95.828 Active 760386943 Problem Chronic congestive heart failure, unspecified congestive heart failure type I50.9 Active 15753132 Problem Primary insomnia F51.01 Active 1785449 Problem Postural hypotension I95.1 Active 46048457 Problem Screening breast examination Z12.39 Active 343316260 Problem Acute non-recurrent maxillary sinusitis J01.00 Active 12776078 Problem Type 2 diabetes mellitus with diabetic autonomic (poly)neuropathy E11.43 Active 514139135 Problem Syncope, unspecified syncope type R55 Active 925253113 Problem Chronic pain syndrome G89.4 Active 848953917 Problem Acute pain of right shoulder M25.511 Active 99970050 Problem Epigastric pain R10.13 Active 86134778 Problem Seizure disorder G40.909 Active 972652525 Problem Gastroparesis K31.84 Active 646515775 Problem Chronic superficial gastritis without bleeding K29.30 Active 259153661 Problem Seasonal allergic rhinitis, unspecified allergic rhinitis trigger J30.2 Active 606336969 Problem Swelling of mandible R22.0 Active 335551516 ALLERGIES No Information SOCIAL HISTORY Never Assessed PLAN OF CARE VITAL SIGNS MEDICATIONS Medication Instructions Dosage Frequency Start Date End Date Duration Status Alprazolam 1 MG Orally Three times a day must last 28 days 1 tablet Active Temazepam 30 MG Orally Once a [...] vein (port for IV access) Dr. Hernandez [facility] - Surgical History partial hysterectomy Surgical History EGD Hospitalization History transfusion given after delivery Hospitalization History Chest pain, uncontrolled Hyperglycemia--Via [facility] 12/15/15 Hospitalization History Influenza B Hospitalization History pneumonia Hospitalization History [facility] 07/16/16 Hospitalization History for high sugar 07/12
--- OUTSIDE RECORDS SUMMARY | 2017-12-04 20:43 | XMS REPORT ---
Author Author MIRZA MARTINO Organization [facility] Address [address] [place] [address] Care Team Providers Care Line Installer Name Role Phone HAIMLindsey MIRZA Unavailable PROBLEMS Type Condition ICD9-CM Code PHX06-VK Code Onset Dates Condition Status SNOMED Code Problem Postural hypotension I95.1 Active 93331952 Problem Seizure disorder G40.909 Active 892746462 Problem Seasonal allergic rhinitis, unspecified allergic rhinitis trigger J30.2 Active 117511969 Problem Closed nondisplaced fracture of second metatarsal bone of left foot, initial encounter S92.325A Active 19479243 Problem Essential hypertension I10 Active 44750601 Problem Multiple neurological symptoms R29.90 Active 877102985 Problem Port catheter in place Z95.828 Active 738563966 Problem Stage 3 chronic kidney disease N18.3 Active 567558639 Problem Gastritis determined by endoscopy K29.70 Active 7160592 Problem Self-inflicted injury Z72.89 Active 675461228 Problem Borderline personality disorder in adult F60.3 Active 30342945 Problem Chronic congestive heart failure, unspecified congestive heart failure type I50.9 Active 87412502 Problem Chronic pain syndrome G89.4 Active 807318650 Problem Primary insomnia F51.01 Active 2587816 Problem Acquired hypothyroidism E03.9 Active 077080238 Problem Gastroparesis K31.84 Active 057816092 Problem Severe episode of recurrent major depressive disorder, without psychotic features F33.2 Active 44722685 Problem Anxiety, generalized F41.1 Active 83271819 Problem 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 Active 552584569 Problem Type 2 diabetes mellitus with diabetic polyneuropathy E11.42 Active 28346123 Problem Tobacco abuse Z72.0 Active 544025819 Problem Noncompliance with diabetes treatment Z91.19 Active 4140425 ALLERGIES No Information ENCOUNTERS Encounter Location Date Diagnosis [facility] [address] [address] October, [facility] [id number] [place] [address] 38994- 1652 October, [facility] [id number] [place] [address] 33193- 8958 October, [facility] [id number] [place] [address] 76275- 9852 October, [facility] [id number] [place] [address] 14746- 3904 Sep, Severe episode of recurrent major depressive disorder, without psychotic features F33.2 ; Anxiety, generalized F41.1 and Borderline personality disorder in adult F60.3 [facility] [id number] [place] [address] 75967- 2710 Sep, [facility] [id number] [place] [address] 27361- 8489 Sep, Throat pain R07.0 ; BMI 40.0-44.9, adult Z68.41 and Chronic pain syndrome G89.4 [facility] [id number] [place] [address] 35716- 6339 Sep, [facility] [id number] [place] [address] 92325- 1610 Sep, [facility] [id number] [place] [address] 27781- 4916 Sep, [facility] [id number] [place] [address] 03487- 5987 Sep, Anxiety, generalized F41.1 [facility] [id number] [place] [address] 56612- 3483 Sep, [facility] [id number] [place] [address] 90453- 4688 Sep, Stage 3 chronic kidney disease N18.3 [facility] [id number] [place] [address] 24809- 4789 Sep, Stage 3 chronic kidney disease N18.3 and Chronic pain syndrome G89.4 [facility] [id number] [place] [address] 09049- 1509 Sep, Severe episode of recurrent major depressive disorder, without psychotic features F33.2 ; Anxiety, generalized F41.1 and Borderline personality disorder in adult F60.3 [facility] [address] 17211- 5708 04 Sep, 2017 Chronic pain syndrome G89.4 ; Anxiety, generalized F41.1 and BMI 45.0-49.9, adult Z68.42 [facility] [address] 38333- 1810 Sep, [facility] [address] 58196- 3434 Sep, [facility] [address] 69583- 6803 Sep, Severe episode of recurrent major depressive disorder, without psychotic features F33.2 ; Anxiety, generalized F41.1 and Borderline personality disorder in adult F60.3 [facility] [address] 61941- 6201 Sep, [facility] [id number] [place] [address] 89584 -6790 Aug, Dysuria R30.0 ; Type 2 diabetes mellitus with diabetic polyneuropathy E11.42 ; Oral abscess K12.2 and BMI 40.0-44.9, adult Z68.41 [facility] [id number] [place] [address] 93294- 1249 Aug, [facility] [address] 30134- 5525 Aug, [facility] [id number] [place] [address] 65474- 0815 Aug, [facility] [address] 36481- 1180 27 Aug, 2017 [facility] [address], [place] [address] 8331 27 Aug, 2017 Severe episode of recurrent major depressive disorder, without psychotic features F33.2 ; Anxiety, generalized F41.1 and Borderline personality disorder in adult F60.3 [facility] [address] [address]- 2942 22 Aug, 2017 [facility] [id number] [place] [address] 58580- 7859 20 Aug, 2017 [facility] [id number] [place] [address] 36147- 7964 19 Aug, 2017 Severe episode of recurrent major depressive disorder, without psychotic features F33.2 ; Anxiety, generalized F41.1 and Borderline personality disorder in adult F60.3 [facility] [address], [place] [address] 17 Aug, 2017 [facility] [id number] [address] 7541 15 Aug, 2017 [facility] [id number] [place] [address] 50688- 7127 14 Aug, 2017 [facility] [address], [place] [address] 14 Aug, 2017 Dysuria R30.0 ; Dental infection K04.7 ; Acute cystitis with hematuria N30.01 and BMI 45.0-49.9, adult Z68.42 [facility] [address], [place] [address]- 1263 14 Aug, 2017 Severe episode of recurrent major depressive disorder, without psychotic features F33.2 ; Anxiety, generalized F41.1 and Borderline personality disorder in adult F60.3 [facility] [address], [place] [address]- 3238 09 Aug, 2017 [place] [address], [place] [address] 8158 Aug, Closed nondisplaced fracture of second metatarsal bone of left foot, initial encounter S92.325A and Chronic pain syndrome G89.4 [facility] [id number] [place] [address] 59660- 7575 08 Aug, 2017 Type 2 diabetes mellitus with diabetic polyneuropathy E11.42 [facility] [id number] [place] [address] 18035- 5467 Aug, Severe episode of recurrent major depressive disorder, without psychotic features F33.2 ; Anxiety, generalized F41.1 and Borderline personality disorder in adult F60.3 [facility] [id number] [place] [address] 53929- 6623 07 Aug, 2017 [facility] [id number] [place] [address] 47207- 4752 Aug, [facility] [id number] [place] [address] 62694- 0072 Aug, [facility] [id number] [place] [address] 23803- 9350 Aug, [facility] [id number] [place] [address] 28594- 5043 Aug, [facility] [id number] [place] [address] 26953- 7516 Jul, [facility] [address], [place] [address]- 6952 Jul, [facility] [id number] [place] [address] 20109- 3163 Jul, Severe episode of recurrent major depressive disorder, without psychotic features F33.2 ; Anxiety, generalized F41.1 and Borderline personality disorder in adult F60.3 [facility] [address], [place] [address]- 8074 Jul, Type 2 diabetes mellitus with diabetic polyneuropathy E11.42 [facility] [id number] [place] [address] 70820- 9373 Jul, Closed nondisplaced fracture of second metatarsal bone of left foot, initial encounter S92.325A and Closed nondisplaced fracture of third metatarsal bone of left foot, initial encounter S92.335A [facility] [id number] [place] [address] 08119- 8744 Jul, [facility] [id number] [place] [address] 36243- 8177 Jul, Closed nondisplaced fracture of second metatarsal bone of left foot, initial encounter S92.325A ; Acute left ankle pain M25.572 ; Acute midline low back pain without sciatica M54.5 and Seasonal allergic rhinitis, unspecified allergic rhinitis trigger J30.2 [facility] [id number] [place] [address] 82866- 0342 Jul, [facility] [address] 14610- 7609 Jul, [facility] [id number] [place] [address] 55132- 0980 Jul, [facility] [id number] [place] [address] 23331- 5103 15 Jul, 2017 Frequent falls R29.6 [facility] [id number] [place] [address] 25780- 4167 14 Jul, 2017 Frequent falls R29.6 [facility] [id number] [place] [address] 18808- 6265 Jul, Severe episode of recurrent major depressive disorder, without psychotic features F33.2 ; Anxiety, generalized F41.1 and Borderline personality disorder in adult F60.3 [facility] [id number] [place] [address] 55399- 1660 07 Jul, 2017 Chronic pain syndrome G89.4 [facility] [id number] [place] [address] 98501- 9013 07 Jul, 2017 shelter current use of insulin Z79.4 [facility] [id number] [place] [address] 95157- 9700 Jul, [facility] [id number] [place] [address] 78878- 6210 Jul, Type 2 diabetes mellitus with diabetic polyneuropathy E11.42 [facility] [id number] [place] [address] 34937- 2860 Jun, shelter current use of insulin Z79.4 and Thrush B37.0 [facility] [id number] [place] [address] 78846- 6471 Jun, Severe episode of recurrent major depressive disorder, without psychotic features F33.2 ; Anxiety, generalized F41.1 and Borderline personality disorder in adult F60.3 [facility] [id number] [place] [address] 01070- 4348 Jun, Severe episode of recurrent major depressive disorder, without psychotic features F33.2 ; Anxiety, generalized F41.1 and Borderline personality disorder in adult F60.3 [facility] [id number] [place] [address] 01711- 8945 Jun, Frequent falls R29.6 ; Bronchitis J40 ; BMI 40.0-44.9, adult Z68.41 and Coccygeal pain, acute M53.3 [facility] [id number] [place] [address] 33720- 5133 Jun, [facility] [id number] [place] [address] 56890 -8312 Jun, [facility] [id number] [place] [address] 16971- 5921 Jun, [facility] [id number] [place] [address] 59718- 9230 Jun, Dental caries, unspecified K02.9 [facility] [id number] [place] [address] 49854- 9536 Jun, Acute non-recurrent maxillary sinusitis J01.00 and BMI 40.0- 44.9, adult Z68.41 [facility] [id number] [place] [address] 59090- 2427 Jun, [facility] [id number] [place] [address] 56693- 6402 Jun, Severe episode of recurrent major depressive disorder, without psychotic features F33.2 ; Anxiety, generalized F41.1 and Borderline personality disorder in adult F60.3 [place] [id number] [place] [address] 41467- 9490 11 Jun, 2017 Closed nondisplaced fracture of third metatarsal bone of left foot with routine healing, subsequent encounter S92.335D ; Closed nondisplaced fracture of second metatarsal bone of left foot with routine healing, subsequent encounter S92.325D and Closed nondisplaced fracture of fourth metatarsal bone of left foot with routine healing, subsequent encounter S92.345D [place] [id number] [place] [address] 35788- 0575 Jun, Severe episode of recurrent major depressive disorder, without psychotic features F33.2 ; Anxiety, generalized F41.1 and Borderline personality disorder in adult F60.3 [facility] [address], [place] [address]- 4109 Jun, [facility] [address], [place] [address]- 6913 Jun, [facility] [id number] [place] [address] 12248- 5283 Jun, [facility] [id number] [place] [address] 04854- 1745 Jun, [facility] [id number] [place] [address] 59990- 3272 Jun, [facility] [id number] [place] [address] 94205- 5366 Jun, Anxiety F41.9 [facility] [address], [place] [address]- 8679 Jun, [facility] [id number] [place] [address] 77895- 2472 Jun, [facility] [address], [place] [address]- 2590 Jun, Type 2 diabetes mellitus with diabetic autonomic (poly) neuropathy E11.43 [facility] [id number] [place] [address] 61150- 7757 Jun, Severe episode of recurrent major depressive disorder, without psychotic features F33.2 ; Anxiety, generalized F41.1 and Borderline personality disorder in adult F60.3 [facility] [address] [place] [address] 04420- 3495 Jun, Type 2 diabetes mellitus with diabetic autonomic (poly) neuropathy E11.43 and Chronic pain syndrome G89.4 [address] [place] [address] 04449- 1211 20 May, 2017 Recent urinary tract infection Z87.440 ; Deliberate self- cutting Z72.89 ; Chest discomfort R07.89 ; BMI 40.0-44.9, adult Z68.41 and Worried well Z71.1 [address], [place] [address]- 7604 19 May, 2017 Severe episode of recurrent major depressive disorder, without psychotic features F33.2 ; Anxiety, generalized F41.1 and Borderline personality disorder in adult F60.3 [facility] [address], [place] [address]- 0547 18 May, 2017 [place] [id number] [place] [address] 70001- 2016 14 May, 2017 [place] [address], [place] [address]- 1878 May, Type 2 diabetes mellitus with diabetic autonomic (poly) neuropathy E11.43 [facility] [id number] [place] [address] 26962- 0055 May, Severe episode of recurrent major depressive disorder, without psychotic features F33.2 ; Anxiety, generalized F41.1 and Borderline personality disorder in adult F60.3 [facility] [id number] [place] [address] 29285- 2632 May, [facility] [id number] [place] [address] 39723- 7988 May, Type 2 diabetes mellitus with diabetic autonomic (poly) neuropathy E11.43 ; Multiple neurological symptoms R29.90 ; Dysuria R30.0 ; Tobacco abuse Z72.0 ; Right hip pain M25.551 ; Anxiety F41.9 ; Gastritis determined by endoscopy K29.70 ; Chronic pain syndrome G89.4 ; Acute non- recurrent maxillary sinusitis J01.00 ; Self mutilating behavior Z72.89 and BMI 40.0-44.9, adult Z68.41 [facility] [id number] [place] [address] 87930- 8252 May, Severe episode of recurrent major depressive disorder, without psychotic features F33.2 ; Anxiety, generalized F41.1 and Borderline personality disorder in adult F60.3 [facility] [id number] [place] [address] 37482- 5321 Apr, [facility] [place] [id number] [place] [address] 86564- 1767 Apr, [facility] [id number] [place] [address] 93166 -4178 Apr, [facility] [id number] [place] [address] 17833 -4121 Apr, Aspiration pneumonia of right lower lobe, unspecified aspiration pneumonia type J69.0 [facility] [id number] [place] [address] 93071- 2109 Apr, Severe episode of recurrent major depressive disorder, without psychotic features F33.2 ; Anxiety, generalized F41.1 and Borderline personality disorder in adult F60.3 [facility] [place] [id number] [address]- 8424 Apr, [facility] [id number] [place] [address] 83810- 2926 Apr, Chronic pain syndrome G89.4 [facility] [address], [place] [address]- 8296 21 Apr, 2017 Severe episode of recurrent major depressive disorder, without psychotic features F33.2 ; Anxiety, generalized F41.1 and Borderline personality disorder in adult F60.3 [facility] [place] [address] [place] [address] 62710- 7731 16 Apr, 2017 Severe episode of recurrent major depressive disorder, without psychotic features F33.2 ; Anxiety, generalized F41.1 and Borderline personality disorder in adult F60.3 [facility] [place] [address] [place] [address] 76485- 1601 16 Apr, 2017 Closed nondisplaced fracture of third metatarsal bone of left foot with routine healing, subsequent encounter S92.335D ; Closed nondisplaced fracture of fourth metatarsal bone of left foot with routine healing, subsequent encounter S92.345D and Closed nondisplaced fracture of second metatarsal bone of left foot with routine healing, subsequent encounter S92.325D [facility] [address], [place] [address]- 0560 16 Apr, 2017 [place] [id number] [place] [address] 79218- 6658 15 Apr, 2017 [place] [id number] [place] [address] 26134- 9813 14 Apr, 2017 [place] [id number] [place] [address] 51681- 7150 13 Apr, 2017 Screening breast examination Z12.31 [facility] [place] [id number] [place] [address] 04470- 1766 09 Apr, 2017 [place] [id number] [place] [address] 63868- 4314 Apr, Type 2 diabetes mellitus with diabetic autonomic (poly) neuropathy E11.43 [facility] [address] [place] [address] 18380- 0807 Apr, Severe episode of recurrent major depressive disorder, without psychotic features F33.2 ; Anxiety, generalized F41.1 and Borderline personality disorder in adult F60.3 [facility] [id number] [place] [address] 47125- 8350 Apr, Type 2 diabetes mellitus with diabetic autonomic (poly) neuropathy E11.43 ; Chronic pain syndrome G89.4 and Anxiety F41.9 [facility] [id number] [place] [address] 81501 -6397 Apr, BMI 45.0-49.9, adult Z68.42 [facility] [id number] [place] [address] 95843 -2431 Apr, Avulsion of toenail, initial encounter S91.209A and Acute non-recurrent maxillary sinusitis J01.00 [facility] [id number] [place] [address] 45374- 1340 Apr, [facility] [place] [id number] [place] [address] 17014- 1927 Mar, [facility] [id number] [place] [address] 99428- 0485 Mar, Severe episode of recurrent major depressive disorder, without psychotic features F33.2 ; Anxiety, generalized F41.1 and Borderline personality disorder in adult F60.3 [facility] [id number] [place] [address] 56274- 2643 Mar, [facility] [id number] [place] [address] 57679- 5821 Mar, [facility] [id number] [place] [address] 97997- 9900 Mar, [facility] [id number] [place] [address] 80438- 8672 Mar, Seizure disorder G40.909 [facility] [address], [place] [address]- 2332 Mar, [facility] [id number] [place] [address] 71122- 4735 Mar, [facility] [id number] [place] [address] 93630 -3703 Mar, Left foot pain M79.672 ; Stage 3 chronic kidney disease N18.3 and Closed nondisplaced fracture of second metatarsal bone of left foot, initial encounter S92.325A [facility] [id number] [place] [address] 88347- 4282 Mar, Severe episode of recurrent major depressive disorder, without psychotic features F33.2 and Anxiety, generalized F41.1 [facility] [id number] [place] [address] 37382- 9295 Mar, [facility] [id number] [place] [address] 12538- 1777 Mar, Closed nondisplaced fracture of second metatarsal bone of left foot, initial encounter S92.325A and Closed nondisplaced fracture of third metatarsal bone of left foot, initial encounter S92.335A [facility] [id number] [place] [address] 19108- 2466 Mar, Seizure disorder G40.909 [facility] [id number] [place] [address] 74923- 5347 Mar, [facility] [id number] [place] [address] 81562- 4391 Mar, [facility] [id number] [place] [address] 06701- 7638 Mar, [facility] [id number] [place] [address] 84388- 6761 Mar, [facility] [id number] [place] [address] 20229- 9699 Mar, High risk sexual behavior Z72.51 [facility] [id number] [place] [address] 96113- 9947 Mar, Severe episode of recurrent major depressive disorder, without psychotic features F33.2 and Anxiety, generalized F41.1 [facility] [id number] [place] [address] 04051- 1845 Mar, Anxiety F41.9 and Type 2 diabetes mellitus with diabetic autonomic (poly)neuropathy E11.43 [facility] [id number] [place] [address] 30774- 2517 Mar, Anxiety F41.9 [facility] [id number] [place] [address] 38368- 2954 Mar, High risk sexual behavior Z72.51 [facility] [id number] [place] [address] 58861- 3736 Mar, Chronic pain syndrome G89.4 [facility] [facility] [id number] [place] [address] 21455- 0240 Mar, Type 2 diabetes mellitus with diabetic autonomic (poly) neuropathy E11.43 [facility] [id number] [place] [address] 23094- 9917 Mar, [facility] [id number] [place] [address] 51752- 0238 Mar, Closed nondisplaced fracture of second metatarsal bone of left foot, initial encounter S92.325A ; Chronic pain syndrome G89.4 ; Closed nondisplaced fracture of third metatarsal bone of left foot, initial encounter S92.335A ; Acute left ankle pain M25.572 and Type 2 diabetes mellitus with diabetic autonomic (poly)neuropathy E11.43 [facility] [address] [address] 18[address] Mar, [facility] [address] [address] 3438 Mar, [facility] [id number] [place] [address] 73726- 5970 Mar, Severe episode of recurrent major depressive disorder, without psychotic features F33.2 and Anxiety, generalized F41.1 [facility] [id number] [place] [address] 59536- 7252 Feb, [facility] [id number] [place] [address] 15449- 9302 Feb, Renal insufficiency N28.9 [facility] [id number] [place] [address] 04677- 4244 Feb, [facility] [id number] [place] [address] 56429- 5037 Feb, Severe episode of recurrent major depressive disorder, without psychotic features F33.2 and Anxiety, generalized F41.1 [facility] [id number] [place] [address] 41697- 2206 Feb, [facility] [id number] [place] [address] 85685- 4725 22 Feb, 2017 [facility] [id number] [place] [address] 81208- 1837 20 Feb, 2017 Renal insufficiency N28.9 [facility] [id number] [place] [address] 77369- 7044 19 Feb, 2017 [facility] [id number] [place] [address] 90319 -2013 18 Feb, 2017 [facility] [id number] [place] [address] 17438- 9662 14 Feb, 2017 [facility] [id number] [place] [address] 74761- 8897 13 Feb, 2017 Severe episode of recurrent major depressive disorder, without psychotic features F33.2 and Anxiety, generalized F41.1 [facility] [address], [place] [address] 9912 13 Feb, 2017 Closed nondisplaced fracture of second metatarsal bone of left foot, initial encounter S92.325A ; Chronic pain syndrome G89.4 ; Closed nondisplaced fracture of third metatarsal bone of left foot, initial encounter S92.335A ; Left hip pain M25.552 and Stage 3 chronic kidney disease N18.3 [facility] [id number] [place] [address] 24001- 4630 Feb, [facility] [address] [facility] [id number] [place] [address] 69319- 0187 Feb, [facility] [address] [facility] [id number] [place] [address] 84138- 1278 Feb, Closed nondisplaced fracture of second metatarsal bone of left foot, initial encounter S92.325A and Closed nondisplaced fracture of third metatarsal bone of left foot, initial encounter S92.335A [place] [id number] [place] [address] 53484- 6601 Feb, [facility] [id number] [place] [address] 78047- 1145 Feb, Anxiety F41.9 [facility] [id number] [place] [address] 48454- 6225 Feb, [facility] [id number] [place] [address] 63428- 8658 Feb, Chronic pain syndrome G89.4 [facility] [id number] [place] [address] 76725- 2549 05 Feb, 2017 Left foot pain M79.672 ; Closed nondisplaced fracture of second metatarsal bone of left foot, initial encounter S92.325A ; Closed nondisplaced fracture of third metatarsal bone of left foot, initial encounter S92.335A and Oral infection K12.2 [facility] [address] [facility] [id number] [place] [address] 73516- 4698 Feb, [facility] [id number] [place] [address] 67996- 7996 Jan, [place] [id number] [place] [address] 81802- 1888 Jan, Type 2 diabetes mellitus with diabetic autonomic (poly) neuropathy E11.43 and Congestive heart failure, unspecified congestive heart failure chronicity, unspecified congestive heart failure type I50.9 [place] [id number] [place] [address] 01344- 8521 Jan, Congestive heart failure, unspecified congestive heart failure chronicity, unspecified congestive heart failure type I50.9 and Stage 3 chronic kidney disease N18.3 [place] [id number] [place] [address] 21257- 8510 Jan, Stage 3 chronic kidney disease N18.3 ; Edema of both legs R60.0 ; Chronic congestive heart failure, unspecified congestive heart failure type I50.9 ; Acute low back pain without sciatica, unspecified back pain laterality M54.5 ; Chronic nausea R11.0 and Primary insomnia F51.01 [place] [id number] [place] [address] 03522- 3775 Jan, Severe episode of recurrent major depressive disorder, without psychotic features F33.2 and Anxiety, generalized F41.1 [place] [id number] [place] [address] 71948- 6076 Jan, [place] [id number] [place] [address] 07225- 3866 Jan, [place] [id number] [place] [address] 35023- 2538 Jan, [place] [id number] [place] [address] 73502- 3876 Jan, [place] [id number] [place] [address] 92359- 3498 Jan, Anxiety F41.9 and Severe episode of recurrent major depressive disorder, without psychotic features F33.2 [place] [id number] [place] [address] 26901- 8597 Jan, Type 2 diabetes mellitus with diabetic autonomic (poly) neuropathy E11.43 [place] [id number] [place] [address] 89550- 2001 Jan, Severe episode of recurrent major depressive disorder, without psychotic features F33.2 and Type 2 diabetes mellitus with diabetic autonomic (poly)neuropathy E11.43 [place] [id number] [place] [address] 81306- 0831 Jan, [place] [id number] [place] [address] 68138- 2155 Jan, [place] [id number] [place] [address] 50660- 1888 Jan, Stage 3 chronic kidney disease N18.3 ; Seizure disorder G40.909 ; Edema of both legs R60.0 and Blister (nonthermal), right foot, initial encounter S90.821A [place] [id number] [place] [address] 18572- 1668 Jan, Severe episode of recurrent major depressive disorder, without psychotic features F33.2 and Anxiety, generalized F41.1 [place] [id number] [place] [address] 48059- 1103 Jan, Severe episode of recurrent major depressive disorder, without psychotic features F33.2 and Anxiety, generalized F41.1 [place] [id number] [place] [address] 25543- 3740 Jan, [place] [id number] [place] [address] 57993- 7401 Jan, Anxiety F41.9 and Primary insomnia F51.01 [place] [id number] [place] [address] 55972- 4982 Jan, Type 2 diabetes mellitus with diabetic autonomic (poly) neuropathy E11.43 ; shelter current use of insulin Z79.4 ; Stage 3 chronic kidney disease N18.3 ; Chronic pain syndrome G89.4 ; Swelling of mandible R22.0 and Seizure disorder G40.909 [place] [id number] [place] [address] 91157- 1588 Jan, [place] [id number] [place] [address] 02426- 9007 Jan, [place] [id number] [place] [address] 29409- 6976 Dec, Severe episode of recurrent major depressive disorder, without psychotic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
--- OUTSIDE RECORDS SUMMARY | 2017-12-04 20:45 | XMS REPORT ---
Author Author MIRZA MARTINO Organization [facility] Address [address] [place] [address] Care Team Providers Care Fisher Line Name Role Phone HAIMLindsey MIRZA Unavailable PROBLEMS Type Condition ICD9-CM Code EVV07-OS Code Onset Dates Condition Status SNOMED Code Problem Postural hypotension I95.1 Active 41671585 Problem Seizure disorder G40.909 Active 773666613 Problem Seasonal allergic rhinitis, unspecified allergic rhinitis trigger J30.2 Active 196869144 Problem Closed nondisplaced fracture of second metatarsal bone of left foot, initial encounter S92.325A Active 06301689 Problem Essential hypertension I10 Active 36717310 Problem Multiple neurological symptoms R29.90 Active 254031559 Problem Port catheter in place Z95.828 Active 995281769 Problem Stage 3 chronic kidney disease N18.3 Active 478403385 Problem Gastritis determined by endoscopy K29.70 Active 2125364 Problem Self-inflicted injury Z72.89 Active 541259593 Problem Borderline personality disorder in adult F60.3 Active 01131929 Problem Chronic congestive heart failure, unspecified congestive heart failure type I50.9 Active 38696786 Problem Chronic pain syndrome G89.4 Active 223988095 Problem Primary insomnia F51.01 Active 5390507 Problem Acquired hypothyroidism E03.9 Active 327580199 Problem Gastroparesis K31.84 Active 366876755 Problem Severe episode of recurrent major depressive disorder, without psychotic features F33.2 Active 52146262 Problem Anxiety, generalized F41.1 Active 70578570 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 Active 937327797 Problem Type 2 diabetes mellitus with diabetic polyneuropathy E11.42 Active 93765743 Problem Tobacco abuse Z72.0 Active 946571364 Problem Noncompliance with diabetes treatment Z91.19 Active 9102657 ALLERGIES No Information ENCOUNTERS Encounter Location Date Diagnosis [facility] [id number], [place] [address] October, [facility] [address], [place] [address] October, [facility] [id number] [place] [address] 832430- 2675 October, [facility] [id number] [id number] Sep, [facility] [id number] [place] [address] 89953- 0408 Sep, [facility] [id number] [place] [address] 04400- 2317 Sep, [facility] [id number] [place] [address] 11899- 3599 Sep, Throat pain R07.0 and BMI 40.0-44.9, adult Z68.41 [facility] [id number] [place] [address] 36637- 4006 Sep, [facility] [id number] [place] [address] 26770- 2926 Sep, [facility] [id number] [place] [address] 87894- 7019 Sep, [facility] [id number] [place] [address] 12768- 1515 Sep, Anxiety, generalized F41.1 [facility] [id number] [place] [address] 51970- 0068 Sep, [facility] [id number] [place] [address] 52125- 3881 Sep, Stage 3 chronic kidney disease N18.3 [facility] [id number] [place] [address] 16269- 0058 Sep, Stage 3 chronic kidney disease N18.3 and Chronic pain syndrome G89.4 [facility] [id number] [place] [address] 56583- 3686 Sep, Severe episode of recurrent major depressive disorder, without psychotic features F33.2 ; Anxiety, generalized F41.1 and Borderline personality disorder in adult F60.3 [facility] [id number] [place] [address] 10489- 2961 Sep, Chronic pain syndrome G89.4 ; Anxiety, generalized F41.1 and BMI 45.0-49.9, adult Z68.42 [facility] [id number] [place] [address] 80168- 8800 Sep, [facility] [id number] [place] [address] 34694- 7008 Sep, [facility] [id number] [place] [address] 18128- 6165 Sep, Severe episode of recurrent major depressive disorder, without psychotic features F33.2 ; Anxiety, generalized F41.1 and Borderline personality disorder in adult F60.3 [facility] [id number] [place] [address] 90698- 9754 Sep, [facility] [id number] [place] [address] 65921 -0113 Aug, Dysuria R30.0 ; Type 2 diabetes mellitus with diabetic polyneuropathy E11.42 ; Oral abscess K12.2 and BMI 40.0-44.9, adult Z68.41 [facility] [id number] [place] [address] 83286- 4652 Aug, [facility] [id number] [place] [address] 78898- 6954 Aug, [facility] [id number] [place] [address] 49516- 1133 Aug, [facility] [id number] [place] [address] 79360- 0896 Aug, [facility] [id number] [place] [address] 72407- 2138 Aug, Severe episode of recurrent major depressive disorder, without psychotic features F33.2 ; Anxiety, generalized F41.1 and Borderline personality disorder in adult F60.3 [facility] [id number] [place] [address] 59539- 1241 22 Aug, 2017 [facility] [id number] [place] [address] 41922- 3914 20 Aug, 2017 [facility] [id number] [place] [address] 69357- 3385 19 Aug, 2017 Severe episode of recurrent major depressive disorder, without psychotic features F33.2 ; Anxiety, generalized F41.1 and Borderline personality disorder in adult F60.3 [facility] [id number] [place] [address] 30361 -9277 17 Aug, 2017 [facility] [id number] [place] [address] 52502- 7885 15 Aug, 2017 [facility] [id number] [place] [address] 29826- 3884 14 Aug, 2017 [facility] [id number] [place] [address] 61931 -0542 14 Aug, 2017 Dysuria R30.0 ; Dental infection K04.7 ; Acute cystitis with hematuria N30.01 and BMI 45.0-49.9, adult Z68.42 [facility] [id number] [place] [address] 64976- 4175 14 Aug, 2017 Severe episode of recurrent major depressive disorder, without psychotic features F33.2 ; Anxiety, generalized F41.1 and Borderline personality disorder in adult F60.3 [facility] [id number] [place] [address] 46058- 7055 09 Aug, 2017 [facility] [id number] [place] [address] 39660- 7448 08 Aug, 2017 Closed nondisplaced fracture of second metatarsal bone of left foot, initial encounter S92.325A and Chronic pain syndrome G89.4 [facility] [id number] [address] 0287 08 Aug, 2017 Type 2 diabetes mellitus with diabetic polyneuropathy E11.42 [facility] [address], [place] [address] Aug, Severe episode of recurrent major depressive disorder, without psychotic features F33.2 ; Anxiety, generalized F41.1 and Borderline personality disorder in adult F60.3 [facility] [address], [place] [address]- 5877 07 Aug, 2017 [facility] [address], [place] [address] 0381 Aug, [facility] [address], [place] [address] Aug, [facility] [address], [place] [address] 4440 Aug, [facility] [address], [place] [address] 8491 Aug, [facility] [address], [place] [address] 9799 Jul, [facility] [address], [place] [address]- 4785 Jul, [facility] [address], [place] [address]- 0170 Jul, Severe episode of recurrent major depressive disorder, without psychotic features F33.2 ; Anxiety, generalized F41.1 and Borderline personality disorder in adult F60.3 [facility] [id number] [address]- 7759 Jul, Type 2 diabetes mellitus with diabetic polyneuropathy E11.42 [facility] [id number], [place] [address] 3[address] Jul, Closed nondisplaced fracture of second metatarsal bone of left foot, initial encounter S92.325A and Closed nondisplaced fracture of third metatarsal bone of left foot, initial encounter S92.335A [facility] [id number] [place] [address] 46802- 4496 Jul, [facility] [id number] [place] [address] 46779- 5199 20 Jul, 2017 Closed nondisplaced fracture of second metatarsal bone of left foot, initial encounter S92.325A ; Acute left ankle pain M25.572 ; Acute midline low back pain without sciatica M54.5 and Seasonal allergic rhinitis, unspecified allergic rhinitis trigger J30.2 [facility] [id number] [place] [address] 60324- 5800 Jul, [facility] [id number] [place] [address] 45046- 1525 19 Jul, 2017 [facility] [id number] [place] [address] 96430- 4737 15 Jul, 2017 [facility] [id number] [place] [address] 28941- 2611 15 Jul, 2017 Frequent falls R29.6 [facility] [id number] [place] [address] 60630- 7343 14 Jul, 2017 Frequent falls R29.6 [facility] [id number] [place] [address] 59760- 9689 07 Jul, 2017 Severe episode of recurrent major depressive disorder, without psychotic features F33.2 ; Anxiety, generalized F41.1 and Borderline personality disorder in adult F60.3 [facility] [id number] [place] [address] 43498- 1899 07 Jul, 2017 Chronic pain syndrome G89.4 [facility] [id number] [place] [address] 05577- 4561 07 Jul, 2017 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 [facility] [id number] [place] [address] 55319- 6453 05 Jul, 2017 [facility] [id number] [place] [address] 28779- 8502 Jul, Type 2 diabetes mellitus with diabetic polyneuropathy E11.42 [facility] [address] 80920- 9128 Jun, 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 and Thrush B37.0 [facility] [address] 18068- 3706 Jun, Severe episode of recurrent major depressive disorder, without psychotic features F33.2 ; Anxiety, generalized F41.1 and Borderline personality disorder in adult F60.3 [facility] [address] 57740- 3560 Jun, Severe episode of recurrent major depressive disorder, without psychotic features F33.2 ; Anxiety, generalized F41.1 and Borderline personality disorder in adult F60.3 [facility] [address] 36585- 7412 Jun, Frequent falls R29.6 ; Bronchitis J40 ; BMI 40.0-44.9, adult Z68.41 and Coccygeal pain, acute M53.3 [facility] [address] 32177- 4037 Jun, [facility] [id number] [place] [address] 19040 -0821 Jun, [facility] [address] 38763- 1330 Jun, [facility] [id number] [place] [address] 83955- 1037 Jun, Dental caries, unspecified K02.9 [facility] [id number] [place] [address] 87405- 5473 Jun, Acute non-recurrent maxillary sinusitis J01.00 and BMI 40.0- 44.9, adult Z68.41 [facility] [address] [place] [address]- 7008 Jun, [facility] [id number], [place] [address] 2546 Jun, Severe episode of recurrent major depressive disorder, without psychotic features F33.2 ; Anxiety, generalized F41.1 and Borderline personality disorder in adult F60.3 [facility] [id number], [place] [address]- 2546 11 Jun, 2017 Closed nondisplaced fracture of third metatarsal bone of left foot with routine healing, subsequent encounter S92.335D ; Closed nondisplaced fracture of second metatarsal bone of left foot with routine healing, subsequent encounter S92.325D and Closed nondisplaced fracture of fourth metatarsal bone of left foot with routine healing, subsequent encounter S92.345D [facility] [address], [place] [address]- 8719 Jun, Severe episode of recurrent major depressive disorder, without psychotic features F33.2 ; Anxiety, generalized F41.1 and Borderline personality disorder in adult F60.3 [facility] [address], [place] [address]- 3456 Jun, [facility] [id number] [place] [address] 44250- 9113 Jun, [facility] [address], [place] [address]- 9884 Jun, [facility] [id number] [place] [address] 54331 2540 Jun, [facility] [address], [place] [address]- 4216 Jun, [facility] [id number] [place] [address] 68457- 5676 Jun, Anxiety F41.9 [facility] [id number] [place] [address] 34176- 2743 Jun, [facility] [id number] [place] [address] 72849- 4397 Jun, [facility] [id number] [place] [address] 70941- 2247 Jun, Type 2 diabetes mellitus with diabetic autonomic (poly) neuropathy E11.43 [facility] [id number] [place] [address] 13279- 7466 Jun, Severe episode of recurrent major depressive disorder, without psychotic features F33.2 ; Anxiety, generalized F41.1 and Borderline personality disorder in adult F60.3 [facility] [id number] [place] [address] 97976- 9621 Jun, Type 2 diabetes mellitus with diabetic autonomic (poly) neuropathy E11.43 and Chronic pain syndrome G89.4 [facility] [id number] [place] [address] 62024- 0081 20 May, 2017 Recent urinary tract infection Z87.440 ; Deliberate self- cutting Z72.89 ; Chest discomfort R07.89 ; BMI 40.0-44.9, adult Z68.41 and Worried well Z71.1 [facility] [id number] [place] [address] 87985- 1487 19 May, 2017 Severe episode of recurrent major depressive disorder, without psychotic features F33.2 ; Anxiety, generalized F41.1 and Borderline personality disorder in adult F60.3 [facility] [address] [place] [address] 37793- 9151 18 May, 2017 [facility] [id number] [place] [address] 51004- 6744 May, [facility] [id number] [place] [address] 93372- 3942 May, Type 2 diabetes mellitus with diabetic autonomic (poly) neuropathy E11.43 [facility] [address] [place] [address] 16827- 8449 May, Severe episode of recurrent major depressive disorder, without psychotic features F33.2 ; Anxiety, generalized F41.1 and Borderline personality disorder in adult F60.3 [facility] [id number] [place] [address] 08981- 6549 May, [facility] [address] 28380- 7497 May, Type 2 diabetes mellitus with diabetic autonomic (poly) neuropathy E11.43 ; Multiple neurological symptoms R29.90 ; Dysuria R30.0 ; Tobacco abuse Z72.0 ; Right hip pain M25.551 ; Anxiety F41.9 ; Gastritis determined by endoscopy K29.70 ; Chronic pain syndrome G89.4 ; Acute non- recurrent maxillary sinusitis J01.00 ; Self mutilating behavior Z72.89 and BMI 40.0-44.9, adult Z68.41 [facility] [id number] [place] [address] 67171- 9558 May, Severe episode of recurrent major depressive disorder, without psychotic features F33.2 ; Anxiety, generalized F41.1 and Borderline personality disorder in adult F60.3 [facility] [id number] [place] [address] 39009- 0851 Apr, [facility] [id number] [place] [address] 51497- 2210 Apr, [facility] [id number] [place] [address] 39897 -3534 Apr, [facility] [id number] [place] [address] 10317 -8151 Apr, Aspiration pneumonia of right lower lobe, unspecified aspiration pneumonia type J69.0 [facility] [id number] [place] [address] 84407- 1682 Apr, Severe episode of recurrent major depressive disorder, without psychotic features F33.2 ; Anxiety, generalized F41.1 and Borderline personality disorder in adult F60.3 [facility] [id number] [place] [address] 36473- 4624 Apr, [facility] [address] 32973- 3343 Apr, Chronic pain syndrome G89.4 [facility] [id number] [place] [address] 42008- 2117 Apr, Severe episode of recurrent major depressive disorder, without psychotic features F33.2 ; Anxiety, generalized F41.1 and Borderline personality disorder in adult F60.3 [facility] [id number] [place] [address] 07404- 4001 16 Apr, 2017 Severe episode of recurrent major depressive disorder, without psychotic features F33.2 ; Anxiety, generalized F41.1 and Borderline personality disorder in adult F60.3 [facility] [id number] [place] [address] 42322- 1781 16 Apr, 2017 Closed nondisplaced fracture of third metatarsal bone of left foot with routine healing, subsequent encounter S92.335D ; Closed nondisplaced fracture of fourth metatarsal bone of left foot with routine healing, subsequent encounter S92.345D and Closed nondisplaced fracture of second metatarsal bone of left foot with routine healing, subsequent encounter S92.325D [facility] [id number] [place] [address] 35625- 6161 Apr, [facility] [address] 18121- 1521 Apr, [facility] [id number] [place] [address] 87183- 4823 14 Apr, 2017 [facility] [id number] [place] [address] 86661- 5318 Apr, Screening breast examination Z12.31 [facility] [id number] [place] [address] 36274- 7655 Apr, [facility] [address] 43426- 8666 Apr, Type 2 diabetes mellitus with diabetic autonomic (poly) neuropathy E11.43 [facility] [id number] [place] [address] 36407- 7711 Apr, Severe episode of recurrent major depressive disorder, without psychotic features F33.2 ; Anxiety, generalized F41.1 and Borderline personality disorder in adult F60.3 [facility] [address] 19920- 7505 Apr, Type 2 diabetes mellitus with diabetic autonomic (poly) neuropathy E11.43 ; Chronic pain syndrome G89.4 and Anxiety F41.9 [facility] [address] 13347 -0938 Apr, BMI 45.0-49.9, adult Z68.42 [facility] [address] 42619 -2046 Apr, Avulsion of toenail, initial encounter S91.209A and Acute non-recurrent maxillary sinusitis J01.00 [facility] [address] 81412- 6295 Apr, [facility] [address] 79741- 2779 Mar, [facility] [id number] [place] [address] 94899- 5422 Mar, Severe episode of recurrent major depressive disorder, without psychotic features F33.2 ; Anxiety, generalized F41.1 and Borderline personality disorder in adult F60.3 [facility] [id number] [place] [address] 14099- 6811 Mar, [facility] [address] 56082- 2440 Mar, [facility] [id number] [place] [address] 61401- 2086 Mar, [facility] [address] 94809- 6894 Mar, Seizure disorder G40.909 [facility] [id number] [place] [address] 19047- 3247 Mar, [facility] [address], [place] [address]- 4711 Mar, [facility] [id number] [place] [address] 26469 -3738 Mar, Left foot pain M79.672 ; Stage 3 chronic kidney disease N18.3 and Closed nondisplaced fracture of second metatarsal bone of left foot, initial encounter S92.325A [facility] [id number] [place] [address] 86418- 6174 Mar, Severe episode of recurrent major depressive disorder, without psychotic features F33.2 and Anxiety, generalized F41.1 [facility] [id number] [place] [address] 41345- 0411 Mar, [facility] [id number] [place] [address] 37370- 8277 Mar, Closed nondisplaced fracture of second metatarsal bone of left foot, initial encounter S92.325A and Closed nondisplaced fracture of third metatarsal bone of left foot, initial encounter S92.335A [facility] [id number] [place] [address] 10279- 9184 Mar, Seizure disorder G40.909 [facility] [id number] [place] [address] 68433- 8787 Mar, [facility] [id number] [place] [address] 86883- 5841 Mar, [facility] [id number] [place] [address] 80809- 8864 Mar, [facility] [id number] [place] [address] 75123- 8823 Mar, [facility] [id number] [place] [address] 46197- 2530 Mar, High risk sexual behavior Z72.51 [facility] [id number] [place] [address] 37946- 7963 Mar, Severe episode of recurrent major depressive disorder, without psychotic features F33.2 and Anxiety, generalized F41.1 [facility] [id number] [place] [address] 87942- 4922 Mar, Anxiety F41.9 and Type 2 diabetes mellitus with diabetic autonomic (poly)neuropathy E11.43 [facility] [id number] [place] [address] 80909- 2643 Mar, Anxiety F41.9 [facility] [id number] [place] [address] 71628- 4761 Mar, High risk sexual behavior Z72.51 [facility] [address] 70939- 8004 Mar, Chronic pain syndrome G89.4 [facility] [id number] [place] [address] 65144- 3529 Mar, Type 2 diabetes mellitus with diabetic autonomic (poly) neuropathy E11.43 [facility] [id number] [place] [address] 65654- 9230 Mar, [facility] [id number] [place] [address] 04776- 4318 Mar, Closed nondisplaced fracture of second metatarsal bone of left foot, initial encounter S92.325A ; Chronic pain syndrome G89.4 ; Closed nondisplaced fracture of third metatarsal bone of left foot, initial encounter S92.335A ; Acute left ankle pain M25.572 and Type 2 diabetes mellitus with diabetic autonomic (poly)neuropathy E11.43 [facility] [id number] [place] [address] 51248- 6542 Mar, [facility] [id number] [place] [address] 66659- 1171 Mar, [facility] [id number] [place] [address] 84443- 1458 Mar, Severe episode of recurrent major depressive disorder, without psychotic features F33.2 and Anxiety, generalized F41.1 [facility] [id number] [place] [address] 06154- 9809 27 Feb, 2017 [facility] [id number] [place] [address] 81245- 9633 26 Feb, 2016 Renal insufficiency N28.9 [facility] [id number] [place] [address] 94905- 9732 26 Feb, 2017 [facility] [id number] [place] [address] 55704- 2922 26 Feb, 2017 Severe episode of recurrent major depressive disorder, without psychotic features F33.2 and Anxiety, generalized F41.1 [facility] [id number] [place] [address] 51974- 4574 25 Feb, 2017 [facility] [id number] [place] [address] 14375- 3396 22 Feb, 2017 [facility] [id number] [place] [address] 30719- 6918 20 Feb, 2017 Renal insufficiency N28.9 [facility] [id number] [place] [address] 01841- 4445 19 Feb, 2017 [facility] [id number] [place] [address] 76578 -1461 18 Feb, 2017 [facility] [id number] [place] [address] 72866- 6345 14 Feb, 2017 [facility] [id number] [place] [address] 30446- 8130 13 Feb, 2017 Severe episode of recurrent major depressive disorder, without psychotic features F33.2 and Anxiety, generalized F41.1 [facility] [id number] [place] [address] 21665- 3304 13 Feb, 2017 Closed nondisplaced fracture of second metatarsal bone of left foot, initial encounter S92.325A ; Chronic pain syndrome G89.4 ; Closed nondisplaced fracture of third metatarsal bone of left foot, initial encounter S92.335A ; Left hip pain M25.552 and Stage 3 chronic kidney disease N18.3 [facility] [id number] [place] [address] 19903- 2218 Feb, [facility] [id number] [place] [address] 28246- 3234 Feb, [facility] [id number] [place] [address] 45839- 1705 Feb, Closed nondisplaced fracture of second metatarsal bone of left foot, initial encounter S92.325A and Closed nondisplaced fracture of third metatarsal bone of left foot, initial encounter S92.335A [facility] [id number] [place] [address] 15906- 2701 Feb, [facility] [id number] [place] [address] 87553- 3452 Feb, Anxiety F41.9 [facility] [id number] [place] [address] 99074- 6955 Feb, [facility] [id number] [place] [address] 52473- 2039 Feb, Chronic pain syndrome G89.4 [facility] [id number] [place] [address] 38897- 0430 Feb, Left foot pain M79.672 ; Closed nondisplaced fracture of second metatarsal bone of left foot, initial encounter S92.325A ; Closed nondisplaced fracture of third metatarsal bone of left foot, initial encounter S92.335A and Oral infection K12.2 [facility] [address] [address]- 8097 Feb, [facility] [id number] [place] [address] 52770- 7703 Jan, [facility] [id number] [place] [address] 03718- 9739 Jan, Type 2 diabetes mellitus with diabetic autonomic (poly) neuropathy E11.43 and Congestive heart failure, unspecified congestive heart failure chronicity, unspecified congestive heart failure type I50.9 [facility] [id number] [place] [address] 03642- 6971 Jan, Congestive heart failure, unspecified congestive heart failure chronicity, unspecified congestive heart failure type I50.9 and Stage 3 chronic kidney disease N18.3 [facility] [address] 98873- 5047 Jan, Stage 3 chronic kidney disease N18.3 ; Edema of both legs R60.0 ; Chronic congestive heart failure, unspecified congestive heart failure type I50.9 ; Acute low back pain without sciatica, unspecified back pain laterality M54.5 ; Chronic nausea R11.0 and Primary insomnia F51.01 [facility] [id number] [place] [address] 08491- 8210 Jan, Severe episode of recurrent major depressive disorder, without psychotic features F33.2 and Anxiety, generalized F41.1 [facility] [id number] [place] [address] 73414- 6261 Jan, [facility] [address] 89421- 2932 Jan, [facility] [id number] [place] [address] 41425- 0310 Jan, [facility] [id number] [place] [address] 50041- 2212 Jan, [facility] [id number] [place] [address] 67635- 2323 Jan, Anxiety F41.9 and Severe episode of recurrent major depressive disorder, without psychotic features F33.2 [facility] [address] 53742- 2315 Jan, Type 2 diabetes mellitus with diabetic autonomic (poly) neuropathy E11.43 [facility] [id number] [place] [address] 27670- 2373 Jan, Severe episode of recurrent major depressive disorder, without psychotic features F33.2 and Type 2 diabetes mellitus with diabetic autonomic (poly)neuropathy E11.43 [facility] [address] 39794- 3396 Jan, [place] [facility] [address] 15314- 4135 Jan, [place] [address] 23305- 5652 Jan, Stage 3 chronic kidney disease N18.3 ; Seizure disorder G40.909 ; Edema of both legs R60.0 and Blister (nonthermal), right foot, initial encounter S90.821A [facility] [address] 24127- 9830 Jan, Severe episode of recurrent major depressive disorder, without psychotic features F33.2 and Anxiety, generalized F41.1 [facility] [address] 14227- 0288 Jan, Severe episode of recurrent major depressive disorder, without psychotic features F33.2 and Anxiety, generalized F41.1 [facility] [address] 70870- 0025 Jan, [place] [address] 92485- 7935 Jan, Anxiety F41.9 and Primary insomnia F51.01 [facility] [id number] [place] [address] 65843- 2607 Jan, Type 2 diabetes mellitus with diabetic autonomic (poly) neuropathy E11.43 ; 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 ; Stage 3 chronic kidney disease N18.3 ; Chronic pain syndrome G89.4 ; Swelling of mandible R22.0 and Seizure disorder G40.909 [facility] [id number] [place] [address] 20548- 7920 Jan, [place] [address] 16987- 0618 Jan, [facility] [id number] [place] [address] 01715- 2749 Dec, Severe episode of recurrent major depressive disorder, without psychotic features F33.2 and Anxiety, generalized F41.1 [facility] [id number] [place] [address] 32957- 7752 Dec, Diarrhea, unspecified type R19.7 ; Gastritis determined by endoscopy K29.70 ; Dysuria R30.0 ; Unspecified abdominal pain R10.9 ; Unspecified fall W19.XXXA and Need for assistance with personal care Z74.1 [facility] [id number] [place] [address] 58053- 2186 Dec, Severe episode of recurrent major depressive disorder, without psychotic features F33.2 and Anxiety, generalized F41.1 [facility] [id number] [place] [address] 66583- 4868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
--- OUTSIDE RECORDS SUMMARY | 2017-12-04 20:46 | XMS REPORT ---
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 Name Role Phone MIRZA MARTINO Unavailable PROBLEMS Type Condition ICD9-CM Code [id number] Code Onset Dates Condition Status SNOMED Code Problem Tobacco abuse Z72.0 Active 187921566 Problem jail current use of insulin Z79.4 Active 206568136 Problem Anxiety, generalized F41.1 Active 70273608 Problem Severe episode of recurrent major depressive disorder, without psychotic features F33.2 Active 34583052 Problem Stage 3 chronic kidney disease N18.3 Active 889605181 Problem Weakness R53.1 Active 40752111 Problem High risk sexual behavior Z72.51 Active 697869050 Problem Vaginal bleeding N93.9 Active 989457604 Problem Port catheter in place Z95.828 Active 429127538 Problem Chronic nausea R11.0 Active 216051077 Problem Right lower quadrant abdominal pain R10.31 Active 047094100 Problem Noncompliance with diabetes treatment Z91.19 Active 3114482 Problem Unspecified fall W19.XXXA Active 2772020 Problem Type 2 diabetes mellitus with diabetic polyneuropathy E11.42 Active 95153279 Problem Diarrhea, unspecified type R19.7 Active 29658022 Problem Swelling of both lower extremities M79.89 Active 08180930901776812 Problem Gastritis determined by endoscopy K29.70 Active 4752179 Problem Blister (nonthermal), right foot, initial encounter S90.821A Active 139221447 Problem Unspecified abdominal pain R10.9 Active 093996728 Problem Borderline personality disorder in adult F60.3 Active 71180683 Problem Closed nondisplaced fracture of second metatarsal bone of left foot, initial encounter S92.325A Active 87330126 Problem Syncope, unspecified syncope type R55 Active 597971678 Problem Neck pain M54.2 Active 86938661 Problem Epigastric pain R10.13 Active 51441443 Problem Thrush B37.0 Active 33620050 Problem Anxiety F41.9 Active 40714080 Problem Chronic congestive heart failure, unspecified congestive heart failure type I50.9 Active 41902957 Problem Essential hypertension I10 Active 88007675 Problem Edema of both legs R60.0 Active 971595088 Problem Acquired hypothyroidism E03.9 Active 729607960 Problem Closed nondisplaced fracture of third metatarsal bone of left foot, initial encounter S92.335A Active 633859318 Problem Congestive heart failure, unspecified congestive heart failure chronicity, unspecified congestive heart failure type I50.9 Active 56655585 Problem Left hip pain M25.552 Active 95182309 Problem Screening breast examination Z12.39 Active 932876225 Problem Acute non-recurrent maxillary sinusitis J01.00 Active 08674521 Problem Recurrent major depressive disorder, remission status unspecified F33.9 Active 98244601 Problem Seasonal allergic rhinitis, unspecified allergic rhinitis trigger J30.2 Active 125234784 Problem Chronic pain syndrome G89.4 Active 933519986 Problem Acute pain of right shoulder M25.511 Active 83713504 Problem Primary insomnia F51.01 Active 6266185 Problem Postural hypotension I95.1 Active 75782109 Problem Gastroparesis K31.84 Active 337324466 Problem Chronic superficial gastritis without bleeding K29.30 Active 183156476 Problem Type 2 diabetes mellitus with diabetic autonomic (poly)neuropathy E11.43 Active 330042094 Problem Self-inflicted injury Z72.89 Active 350118523 Problem Swelling of mandible R22.0 Active 794433077 Problem Seizure disorder G40.909 Active 171822788 ALLERGIES No Information SOCIAL HISTORY Never Assessed PLAN OF CARE VITAL SIGNS MEDICATIONS Medication Instructions Dosage Frequency Start Date End Date Duration Status Alprazolam 1 MG Orally Three times a day must last 28 days 1 tablet Active Promethazine HCl 25 MG 1 tablet [...] mellitus, uncontrolled Medical History fibromyalgia per Dr. Hotl Medical History chronic thrush Medical History bulging [...] vein (port for IV access) Dr. Hernandez [facility] 08-29-2013 Surgical History partial hysterectomy Surgical History EGD Hospitalization History transfusion given after delivery Hospitalization History Chest pain, uncontrolled Hyperglycemia--[facility] 12/15/15 Hospitalization History Influenza B Hospitalization History pneumonia Hospitalization History [facility] 07/16/16 Hospitalization History for high sugar 07/12
--- OUTSIDE RECORDS SUMMARY | 2017-12-04 20:46 | XMS REPORT ---
Author Author MIRZA MARTINO 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 Active 294987814 Problem Recurrent major depressive disorder, remission status unspecified F33.9 Active 79497359 Problem Severe episode of recurrent major depressive disorder, without psychotic features F33.2 Active 65480934 Problem Tobacco abuse Z72.0 Active 149897332 Problem Anxiety, generalized F41.1 Active 01572231 Problem Weakness R53.1 Active 07195820 Problem Stage 3 chronic kidney disease N18.3 Active 054807173 Problem Vaginal bleeding N93.9 Active 590735690 Problem Chronic nausea R11.0 Active 459912618 Problem Right lower quadrant abdominal pain R10.31 Active 186236764 Problem Self-inflicted injury Z72.89 Active 584634928 Problem Noncompliance with diabetes treatment Z91.19 Active 9050617 Problem Unspecified fall W19.XXXA Active 7271567 Problem Type 2 diabetes mellitus with diabetic polyneuropathy E11.42 Active 16888762 Problem Gastritis determined by endoscopy K29.70 Active 6155270 Problem Unspecified abdominal pain R10.9 Active 419293925 Problem Diarrhea, unspecified type R19.7 Active 04721967 Problem Left hip pain M25.552 Active 70527378 Problem Closed nondisplaced fracture of second metatarsal bone of left foot, initial encounter S92.325A Active 43248036 Problem Neck pain M54.2 Active 96453136 Problem Thrush B37.0 Active 36846131 Problem Anxiety F41.9 Active 53343189 Problem Swelling of both lower extremities M79.89 Active 63611951236265347 Problem Essential hypertension I10 Active 46465563 Problem Edema of both legs R60.0 Active 379933004 Problem Acquired hypothyroidism E03.9 Active 913532221 Problem Blister (nonthermal), right foot, initial encounter S90.821A Active 927025069 Problem Congestive heart failure, unspecified congestive heart failure chronicity, unspecified congestive heart failure type I50.9 Active 96609309 Problem Closed nondisplaced fracture of third metatarsal bone of left foot, initial encounter S92.335A Active 278964511 Problem Port catheter in place Z95.828 Active 301736178 Problem Chronic congestive heart failure, unspecified congestive heart failure type I50.9 Active 62074868 Problem Primary insomnia F51.01 Active 3550699 Problem Postural hypotension I95.1 Active 06891373 Problem Screening breast examination Z12.39 Active 410610447 Problem Acute non-recurrent maxillary sinusitis J01.00 Active 28059650 Problem Type 2 diabetes mellitus with diabetic autonomic (poly)neuropathy E11.43 Active 957706535 Problem Syncope, unspecified syncope type R55 Active 898800048 Problem Chronic pain syndrome G89.4 Active 135790538 Problem Acute pain of right shoulder M25.511 Active 23424668 Problem Epigastric pain R10.13 Active 80898205 Problem Seizure disorder G40.909 Active 654463812 Problem Gastroparesis K31.84 Active 643762847 Problem Chronic superficial gastritis without bleeding K29.30 Active 855628004 Problem Seasonal allergic rhinitis, unspecified allergic rhinitis trigger J30.2 Active 318789607 Problem Swelling of mandible R22.0 Active 689540070 ALLERGIES No Information SOCIAL HISTORY Never Assessed PLAN OF CARE VITAL SIGNS MEDICATIONS Medication Instructions Dosage Frequency Start Date End Date Duration Status Naproxen 500 mg Orally every 12 hrs 1 tablet as needed 12h 10 Jun, 2016 2 Oct, 2016 28 days Active RESULTS No Results [...] vein (port for IV access) Dr. Hernandez [facility] 3- Surgical History partial hysterectomy Surgical History EGD Hospitalization History transfusion given after delivery Hospitalization History Chest pain, uncontrolled Hyperglycemia--[facility] 12/15/15 Hospitalization History Influenza B Hospitalization History pneumonia Hospitalization History [facility] 07/16/16 Hospitalization History for high sugar 07/12
--- OUTSIDE RECORDS SUMMARY | 2017-12-04 20:46 | XMS REPORT ---
Author Author ABHINAV FLOYD [facility] Address [address] [place] [address] Care Team Providers Care Production Generalist Name Role Phone ABHINAV FLOYD Unavailable PROBLEMS Type Condition ICD9-CM Code NMT23-JX Code Onset Dates Condition Status SNOMED Code Problem Stage 3 chronic kidney disease N18.3 Active 628876577 Problem Dental caries, unspecified K02.9 Active 00640881 Problem Port catheter in place Z95.828 Active 638461601 Problem Epigastric pain R10.13 Active 31299866 Problem Gastroparesis K31.84 Active 632724232 Problem Essential hypertension I10 Active 71532540 Problem Seizure disorder G40.909 Active 194313259 Problem Acquired hypothyroidism E03.9 Active 863614107 Problem Chronic superficial gastritis without bleeding K29.30 Active 049222272 Problem Anxiety F41.9 Active 99669871 Problem Self-inflicted injury Z72.89 Active 702015369 Problem Chronic congestive heart failure, unspecified congestive heart failure type I50.9 Active 74494204 Problem Gastritis determined by endoscopy K29.70 Active 8886159 Problem Acute left ankle pain M25.572 Active 74634963354995 Problem Acute midline low back pain without sciatica M54.5 Active 696474319 Problem 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 Active 456958573 Problem Primary insomnia F51.01 Active 4037715 Problem Chronic pain syndrome G89.4 Active 971991450 Problem Multiple neurological symptoms R29.90 Active 664813643 Problem Borderline personality disorder in adult F60.3 Active 04260445 Problem Closed nondisplaced fracture of second metatarsal bone of left foot, initial encounter S92.325A Active 46856175 Problem Frequent falls R29.6 Active 377600391 Problem Anxiety, generalized F41.1 Active 66949282 Problem Vaginal bleeding N93.9 Active 458353104 Problem Tobacco abuse Z72.0 Active 552953831 Problem Severe episode of recurrent major depressive disorder, without psychotic features F33.2 Active 63071985 Problem Postural hypotension I95.1 Active 75666683 Problem Seasonal allergic rhinitis, unspecified allergic rhinitis trigger J30.2 Active 632357911 Problem Type 2 diabetes mellitus with diabetic polyneuropathy E11.42 Active 59669097 Problem Noncompliance with diabetes treatment Z91.19 Active 3915161 ALLERGIES No Information ENCOUNTERS Encounter Location Date Diagnosis [facility] [id number] [place] [address] 12839- 4039 October, [facility] [id number] [place] [address] [id number] Sep, [facility] [address] 43463- 0608 Sep, [facility] [id number] [place] [address] 90304- 9888 Sep, [facility] [id number] [place] [address] 46777- 8495 Sep, [facility] [id number] [place] [address] 08654- 2816 Sep, [facility] [id number] [place] [address] 26464- 9109 Sep, [facility] [id number] [place] [address] 71825 -5728 Aug, Dysuria R30.0 ; Type 2 diabetes mellitus with diabetic polyneuropathy E11.42 ; Oral abscess K12.2 and BMI 40.0-44.9, adult Z68.41 [facility] [id number] [place] [address] 95550- 7595 Aug, [facility] [id number] [place] [address] 43844- 6993 Aug, [facility] [id number] [place] [address] 39551- 0971 Aug, [facility] [id number] [place] [address] 62511- 0157 Aug, [facility] [address] [address] 27 Aug, 2017 Severe episode of recurrent major depressive disorder, without psychotic features F33.2 ; Anxiety, generalized F41.1 and Borderline personality disorder in adult F60.3 [facility] [address] [address] 22 Aug, 2017 [facility] [id number] [place] [address] 57345- 3117 20 Aug, 2017 [facility] [id number] [place] [address] 59901- 3500 19 Aug, 2017 Severe episode of recurrent major depressive disorder, without psychotic features F33.2 ; Anxiety, generalized F41.1 and Borderline personality disorder in adult F60.3 [facility] [id number] [address] 17 Aug, 2017 [facility] [id number] [place] [address] 76719- 7408 15 Aug, 2017 [facility] [id number] [place] [address] 95385- 7363 14 Aug, 2017 [facility] [id number] [address] 14 Aug, 2017 Dysuria R30.0 ; Dental infection K04.7 ; Acute cystitis with hematuria N30.01 and BMI 45.0-49.9, adult Z68.42 [facility] [address] [address] 250[address] 14 Aug, 2017 Severe episode of recurrent major depressive disorder, without psychotic features F33.2 ; Anxiety, generalized F41.1 and Borderline personality disorder in adult F60.3 [facility] [address] [place] [address] 41237- 6634 09 Aug, 2017 [facility] [id number] [address] 3518 08 Aug, 2017 Closed nondisplaced fracture of second metatarsal bone of left foot, initial encounter S92.325A and Chronic pain syndrome G89.4 [facility] [id number] [place] [address] 16547- 4967 08 Aug, 2017 Type 2 diabetes mellitus with diabetic polyneuropathy E11.42 [facility] [id number] [place] [address] 27317- 3674 Aug, Severe episode of recurrent major depressive disorder, without psychotic features F33.2 ; Anxiety, generalized F41.1 and Borderline personality disorder in adult F60.3 [facility] [id number] [place] [address] 55759- 8936 Aug, [facility] [id number] [place] [address] 21997- 5438 Aug, [facility] [id number] [place] [address] 75775- 4746 Aug, [facility] [id number] [place] [address] 60996- 7463 Aug, [facility] [id number] [place] [address] 70093- 0022 Aug, [facility] [id number] [place] [address] 39228- 9595 Jul, [facility] [id number] [place] [address] 33892- 2092 Jul, [facility] [id number] [place] [address] 27774- 8415 Jul, Severe episode of recurrent major depressive disorder, without psychotic features F33.2 ; Anxiety, generalized F41.1 and Borderline personality disorder in adult F60.3 [facility] [id number] [place] [address] 74394- 8053 Jul, Type 2 diabetes mellitus with diabetic polyneuropathy E11.42 [facility] [id number] [place] [address] 51756- 9002 Jul, Closed nondisplaced fracture of second metatarsal bone of left foot, initial encounter S92.325A and Closed nondisplaced fracture of third metatarsal bone of left foot, initial encounter S92.335A [facility] [id number] [place] [address] 22079- 9671 Jul, [facility] [id number] [place] [address] 71923- 4087 20 Jul, 2017 Closed nondisplaced fracture of second metatarsal bone of left foot, initial encounter S92.325A ; Acute left ankle pain M25.572 ; Acute midline low back pain without sciatica M54.5 and Seasonal allergic rhinitis, unspecified allergic rhinitis trigger J30.2 [facility] [id number] [place] [address] 03715- 2559 Jul, [facility] [id number] [place] [address] 66803- 2262 Jul, [facility] [id number] [place] [address] 61173- 9941 15 Jul, 2017 [facility] [id number] [place] [address] 03050- 5032 15 Jul, 2017 Frequent falls R29.6 [facility] [id number] [place] [address] 02081- 2651 14 Jul, 2017 Frequent falls R29.6 [facility] [id number] [place] [address] 46981- 3245 07 Jul, 2017 Severe episode of recurrent major depressive disorder, without psychotic features F33.2 ; Anxiety, generalized F41.1 and Borderline personality disorder in adult F60.3 [facility] [id number] [place] [address] 10597- 1516 07 Jul, 2017 Chronic pain syndrome G89.4 [facility] [id number] [place] [address] 21126- 3715 07 Jul, 2017 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 [facility] [id number] [place] [address] 93261- 0041 Jul, [facility] [address] 04094- 6389 Jul, Type 2 diabetes mellitus with diabetic polyneuropathy E11.42 [facility] [address] 01589- 2431 Jun, 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 and Thrush B37.0 [address] [facility] [address] 90247- 0004 Jun, Severe episode of recurrent major depressive disorder, without psychotic features F33.2 ; Anxiety, generalized F41.1 and Borderline personality disorder in adult F60.3 [facility] [address] 64110- 9700 Jun, Severe episode of recurrent major depressive disorder, without psychotic features F33.2 ; Anxiety, generalized F41.1 and Borderline personality disorder in adult F60.3 [facility] [address] 64970- 0483 Jun, Frequent falls R29.6 ; Bronchitis J40 ; BMI 40.0-44.9, adult Z68.41 and Coccygeal pain, acute M53.3 [facility] [id number] [place] [address] 03870- 4988 Jun, [facility] [id number] [place] [address] 13476 -4323 Jun, [facility] [address] 82665- 9361 Jun, [facility] [address] 61375- 0799 Jun, Dental caries, unspecified K02.9 [facility] [id number] [place] [address] 21082- 0138 Jun, Acute non-recurrent maxillary sinusitis J01.00 and BMI 40.0- 44.9, adult Z68.41 [facility] [address] [place] [address] 94733- 4131 Jun, [facility] [id number] [place] [address] 41879- 2167 Jun, Severe episode of recurrent major depressive disorder, without psychotic features F33.2 ; Anxiety, generalized F41.1 and Borderline personality disorder in adult F60.3 [facility] [id number] [place] [address] 57378- 5318 11 Jun, 2017 Closed nondisplaced fracture of third metatarsal bone of left foot with routine healing, subsequent encounter S92.335D ; Closed nondisplaced fracture of second metatarsal bone of left foot with routine healing, subsequent encounter S92.325D and Closed nondisplaced fracture of fourth metatarsal bone of left foot with routine healing, subsequent encounter S92.345D [facility] [id number] [place] [address] 94390- 7725 Jun, Severe episode of recurrent major depressive disorder, without psychotic features F33.2 ; Anxiety, generalized F41.1 and Borderline personality disorder in adult F60.3 [address] [facility] [address] [place] [address] 02962- 1084 Jun, [facility] [address] [address]- 1086 Jun, [facility] [address] [place] [address] 94026- 9538 Jun, [facility] [id number] [place] [address] 02429- 0052 Jun, [facility] [id number] [place] [address] 00538- 2867 Jun, [facility] [address] [place] [address] 66364- 4142 Jun, Anxiety F41.9 [facility] [id number] [address]- 4737 Jun, [facility] [address] [place] [address] 65305- 8704 Jun, [facility] [address] [place] [address] 76218- 7695 Jun, Type 2 diabetes mellitus with diabetic autonomic (poly) neuropathy E11.43 [facility] [id number] [place] [address] 07690- 2218 Jun, Severe episode of recurrent major depressive disorder, without psychotic features F33.2 ; Anxiety, generalized F41.1 and Borderline personality disorder in adult F60.3 [id number] [place] [address] 24121- 2953 Jun, Type 2 diabetes mellitus with diabetic autonomic (poly) neuropathy E11.43 and Chronic pain syndrome G89.4 [id number] [place] [address] 42818- 0359 May, Recent urinary tract infection Z87.440 ; Deliberate self- cutting Z72.89 ; Chest discomfort R07.89 ; BMI 40.0-44.9, adult Z68.41 and Worried well Z71.1 [address] [facility] [address] [place] [address] 85524- 4293 May, Severe episode of recurrent major depressive disorder, without psychotic features F33.2 ; Anxiety, generalized F41.1 and Borderline personality disorder in adult F60.3 [facility] [address] [address]- 1654 May, [facility] [address] [place] [address] 82328- 0784 May, [address] [place] [address] 12519- 2163 May, Type 2 diabetes mellitus with diabetic autonomic (poly) neuropathy E11.43 [facility] [id number] [place] [address] 05089- 5809 May, Severe episode of recurrent major depressive disorder, without psychotic features F33.2 ; Anxiety, generalized F41.1 and Borderline personality disorder in adult F60.3 [facility] [id number] [place] [address] 00299- 0584 May, [facility] [address] 34295- 4173 May, Type 2 diabetes mellitus with diabetic autonomic (poly) neuropathy E11.43 ; Multiple neurological symptoms R29.90 ; Dysuria R30.0 ; Tobacco abuse Z72.0 ; Right hip pain M25.551 ; Anxiety F41.9 ; Gastritis determined by endoscopy K29.70 ; Chronic pain syndrome G89.4 ; Acute non- recurrent maxillary sinusitis J01.00 ; Self mutilating behavior Z72.89 and BMI 40.0-44.9, adult Z68.41 [address] [facility] [address] 32617- 9350 May, Severe episode of recurrent major depressive disorder, without psychotic features F33.2 ; Anxiety, generalized F41.1 and Borderline personality disorder in adult F60.3 [address] [facility] [address] 16326- 5649 Apr, [facility] [facility] [address] 71237- 5890 Apr, [facility] [address] 03239 -6898 Apr, [facility] [address] 45000 -1441 Apr, Aspiration pneumonia of right lower lobe, unspecified aspiration pneumonia type J69.0 [address] [facility] [address] 39030- 7957 Apr, Severe episode of recurrent major depressive disorder, without psychotic features F33.2 ; Anxiety, generalized F41.1 and Borderline personality disorder in adult F60.3 [facility] [address] 34424- 4699 Apr, [facility] [address] [place] [address] 56712- 5323 Apr, Chronic pain syndrome G89.4 [facility] [address] [place] [address] 08518- 2703 21 Apr, 2017 Severe episode of recurrent major depressive disorder, without psychotic features F33.2 ; Anxiety, generalized F41.1 and Borderline personality disorder in adult F60.3 [facility] [id number] [place] [address] 21448- 0283 16 Apr, 2017 Severe episode of recurrent major depressive disorder, without psychotic features F33.2 ; Anxiety, generalized F41.1 and Borderline personality disorder in adult F60.3 [facility] [address] [place] [address] 57065- 5813 16 Apr, 2017 Closed nondisplaced fracture of third metatarsal bone of left foot with routine healing, subsequent encounter S92.335D ; Closed nondisplaced fracture of fourth metatarsal bone of left foot with routine healing, subsequent encounter S92.345D and Closed nondisplaced fracture of second metatarsal bone of left foot with routine healing, subsequent encounter S92.325D [facility] [address] [place] [address] 55415- 5163 16 Apr, 2017 [facility] [facility] [address] [place] [address] 32425- 1744 15 Apr, 2017 [facility] [id number] [place] [address] 62226- 3740 14 Apr, 2017 [facility] [id number] [place] [address] 16593- 5191 13 Apr, 2017 Screening breast examination Z12.31 [facility] [id number] [place] [address] 28986- 9725 09 Apr, 2017 [facility] [id number] [place] [address] 15562- 7179 Apr, Type 2 diabetes mellitus with diabetic autonomic (poly) neuropathy E11.43 [facility] [address] [place] [address] 63257- 3586 Apr, Severe episode of recurrent major depressive disorder, without psychotic features F33.2 ; Anxiety, generalized F41.1 and Borderline personality disorder in adult F60.3 [facility] [id number] [place] [address] 44609- 9321 Apr, Type 2 diabetes mellitus with diabetic autonomic (poly) neuropathy E11.43 ; Chronic pain syndrome G89.4 and Anxiety F41.9 [facility] [id number] [place] [address] 96180 -7247 Apr, BMI 45.0-49.9, adult Z68.42 [facility] [id number] [place] [address] 56348 -9470 Apr, Avulsion of toenail, initial encounter S91.209A and Acute non-recurrent maxillary sinusitis J01.00 [facility] [id number] [place] [address] 39679- 2809 Apr, [facility] [id number] [place] [address] 90612- 0287 Mar, [facility] [id number] [place] [address] 45569- 3161 Mar, Severe episode of recurrent major depressive disorder, without psychotic features F33.2 ; Anxiety, generalized F41.1 and Borderline personality disorder in adult F60.3 [facility] [id number] [place] [address] 97876- 4944 Mar, [facility] [id number] [place] [address] 68977- 9876 Mar, [facility] [id number] [place] [address] 45812- 0114 Mar, [facility] [id number] [place] [address] 01755- 6031 Mar, Seizure disorder G40.909 [facility] [address] [place] [address] 39292- 5878 Mar, [facility] [id number] [place] [address] 54396- 1704 Mar, [facility] [address] [place] [address] 02825 -8912 Mar, Left foot pain M79.672 ; Stage 3 chronic kidney disease N18.3 and Closed nondisplaced fracture of second metatarsal bone of left foot, initial encounter S92.325A [facility] [id number] [place] [address] 25136- 1188 Mar, Severe episode of recurrent major depressive disorder, without psychotic features F33.2 and Anxiety, generalized F41.1 [facility] [id number] [place] [address] 73560- 9792 Mar, [facility] [id number] [place] [address] 14945- 9119 Mar, Closed nondisplaced fracture of second metatarsal bone of left foot, initial encounter S92.325A and Closed nondisplaced fracture of third metatarsal bone of left foot, initial encounter S92.335A [facility] [id number] [place] [address] 74126- 5766 Mar, Seizure disorder G40.909 [facility] [id number] [place] [address] 04936- 5843 Mar, [facility] [id number] [place] [address] 51753- 3055 Mar, [facility] [id number] [place] [address] 00611- 9662 Mar, [facility] [id number] [place] [address] 39941- 7044 Mar, [facility] [id number] [place] [address] 32915- 1094 Mar, High risk sexual behavior Z72.51 [facility] [address] [place] [address] 21288- 7293 Mar, Severe episode of recurrent major depressive disorder, without psychotic features F33.2 and Anxiety, generalized F41.1 [facility] [id number] [place] [address] 35427- 6705 Mar, Anxiety F41.9 and Type 2 diabetes mellitus with diabetic autonomic (poly)neuropathy E11.43 [facility] [id number] [place] [address] 00126- 4737 Mar, Anxiety F41.9 [facility] [id number] [place] [address] 29277- 1207 Mar, High risk sexual behavior Z72.51 [facility] [id number] [place] [address] 05726- 5398 Mar, Chronic pain syndrome G89.4 [facility] [id number] [place] [address] 59683- 0534 Mar, Type 2 diabetes mellitus with diabetic autonomic (poly) neuropathy E11.43 [facility] [id number] [place] [address] 67846- 1853 Mar, [facility] [facility] [id number] [place] [address] 42264- 8748 Mar, Closed nondisplaced fracture of second metatarsal bone of left foot, initial encounter S92.325A ; Chronic pain syndrome G89.4 ; Closed nondisplaced fracture of third metatarsal bone of left foot, initial encounter S92.335A ; Acute left ankle pain M25.572 and Type 2 diabetes mellitus with diabetic autonomic (poly)neuropathy E11.43 [facility] [id number] [place] [address] 11227- 5517 Mar, [facility] [id number] [place] [address] 62018- 3844 Mar, [facility] [id number] [place] [address] 88717- 2327 Mar, Severe episode of recurrent major depressive disorder, without psychotic features F33.2 and Anxiety, generalized F41.1 [facility] [id number] [place] [address] 15010- 8614 27 Feb, 2017 [facility] [id number] [place] [address] 07773- 6533 26 Feb, 2017 Renal insufficiency N28.9 [facility] [id number] [place] [address] 04648- 3498 Feb, [facility] [id number] [place] [address] 82967- 5041 26 Feb, 2017 Severe episode of recurrent major depressive disorder, without psychotic features F33.2 and Anxiety, generalized F41.1 [facility] [id number] [place] [address] 46056- 3191 25 Feb, 2017 [facility] [id number] [place] [address] 47587- 8353 22 Feb, 2017 [facility] [id number] [place] [address] 11937- 2516 20 Feb, 2017 Renal insufficiency N28.9 [facility] [id number] [place] [address] 43408- 4130 19 Feb, 2017 [facility] [address] [place] [address] 92342 -9677 18 Feb, 2017 [facility] [id number] [place] [address] 39912- 1202 14 Feb, 2017 [facility] [id number] [place] [address] 41764- 2845 13 Feb, 2017 Severe episode of recurrent major depressive disorder, without psychotic features F33.2 and Anxiety, generalized F41.1 [facility] [id number] [place] [address] 38442- 9927 13 Feb, 2017 Closed nondisplaced fracture of second metatarsal bone of left foot, initial encounter S92.325A ; Chronic pain syndrome G89.4 ; Closed nondisplaced fracture of third metatarsal bone of left foot, initial encounter S92.335A ; Left hip pain M25.552 and Stage 3 chronic kidney disease N18.3 [facility] [address] [id number] [address] Feb, [facility] [id number] [place] [address] 94153- 6161 Feb, [facility] [id number] [place] [address] 45294- 1809 Feb, Closed nondisplaced fracture of second metatarsal bone of left foot, initial encounter S92.325A and Closed nondisplaced fracture of third metatarsal bone of left foot, initial encounter S92.335A [place] [id number] [place] [address] 13337- 5535 Feb, [facility] [id number] [place] [address] 04470- 3813 Feb, Anxiety F41.9 [facility] [id number] [place] [address] 29354- 5006 Feb, [facility] [id number] [place] [address] 55179- 4746 Feb, Chronic pain syndrome G89.4 [facility] [address] [place] [address] 17856- 9722 Feb, Left foot pain M79.672 ; Closed nondisplaced fracture of second metatarsal bone of left foot, initial encounter S92.325A ; Closed nondisplaced fracture of third metatarsal bone of left foot, initial encounter S92.335A and Oral infection K12.2 [facility] [address] [id number] [place] [address] 59253- 7671 Feb, [facility] [id number] [place] [address] 50505- 9156 Jan, [facility] [id number] [place] [address] 46934- 3847 Jan, Type 2 diabetes mellitus with diabetic autonomic (poly) neuropathy E11.43 and Congestive heart failure, unspecified congestive heart failure chronicity, unspecified congestive heart failure type I50.9 [place] [id number] [place] [address] 16431- 6292 Jan, Congestive heart failure, unspecified congestive heart failure chronicity, unspecified congestive heart failure type I50.9 and Stage 3 chronic kidney disease N18.3 [place] [id number] [place] [address] 42769- 7114 Jan, Stage 3 chronic kidney disease N18.3 ; Edema of both legs R60.0 ; Chronic congestive heart failure, unspecified congestive heart failure type I50.9 ; Acute low back pain without sciatica, unspecified back pain laterality M54.5 ; Chronic nausea R11.0 and Primary insomnia F51.01 [place] [id number] [place] [address] 67994- 4924 Jan, Severe episode of recurrent major depressive disorder, without psychotic features F33.2 and Anxiety, generalized F41.1 [place] [id number] [place] [address] 76332- 2734 Jan, [place] [id number] [place] [address] 15053- 7474 Jan, [place] [id number] [place] [address] 46409- 9460 Jan, [place] [id number] [place] [address] 22255- 9418 Jan, [place] [id number] [place] [address] 67161- 4733 Jan, Anxiety F41.9 and Severe episode of recurrent major depressive disorder, without psychotic features F33.2 [place] [id number] [place] [address] 55267- 3911 Jan, Type 2 diabetes mellitus with diabetic autonomic (poly) neuropathy E11.43 [place] [id number] [place] [address] 40960- 5686 Jan, Severe episode of recurrent major depressive disorder, without psychotic features F33.2 and Type 2 diabetes mellitus with diabetic autonomic (poly)neuropathy E11.43 [place] [id number] [place] [address] 85487- 2557 Jan, [place] [address] 08051- 0961 Jan, [place] [id number] [place] [address] 27955- 3864 Jan, Stage 3 chronic kidney disease N18.3 ; Seizure disorder G40.909 ; Edema of both legs R60.0 and Blister (nonthermal), right foot, initial encounter S90.821A [place] [id number] [place] [address] 94348- 2313 Jan, Severe episode of recurrent major depressive disorder, without psychotic features F33.2 and Anxiety, generalized F41.1 [place] [id number] [place] [address] 73994- 4161 Jan, Severe episode of recurrent major depressive disorder, without psychotic features F33.2 and Anxiety, generalized F41.1 [place] [id number] [place] [address] 69097- 8436 Jan, [place] [id number] [place] [address] 60829- 6191 Jan, Anxiety F41.9 and Primary insomnia F51.01 [place] [id number] [place] [address] 83746- 7528 Jan, Type 2 diabetes mellitus with diabetic autonomic (poly) neuropathy E11.43 ; [facility] current use of insulin Z79.4 ; Stage 3 chronic kidney disease N18.3 ; Chronic pain syndrome G89.4 ; Swelling of mandible R22.0 and Seizure disorder G40.909 [place] [address] [place] [address]- 5208 Jan, [place] [id number] [place] [address] 34193- 8161 Jan, [place] [id number] [place] [address] 76641- 8169 Dec, Severe episode of recurrent major depressive disorder, without psychotic features F33.2 and Anxiety, generalized F41.1 [place] [id number] [place] [address] 76915- 3734 Dec, Diarrhea, unspecified type R19.7 ; Gastritis determined by endoscopy K29.70 ; Dysuria R30.0 ; Unspecified abdominal pain R10.9 ; Unspecified fall W19.XXXA and Need for assistance with personal care Z74.1 [place] [id number] [place] [address] 33952- 2685 Dec, Severe episode of recurrent major depressive disorder, without psychotic features F33.2 and Anxiety, generalized F41.1 [place] [id number] [place] [address] 37286- 1343 Dec, Diarrhea, unspecified type R19.7 ; Dysuria R30.0 ; Unspecified abdominal pain R10.9 ; Gastritis determined by endoscopy K29.70 ; Unspecified fall W19.XXXA and Need for assistance with personal care Z74.1 [place] [id number] [place] [address] 25358- 3267 Dec, [place] [id number] [place] [address] 94339- 2755 Dec, [place] [id number] [place] [address] 72980- 2503 Dec, Type 2 diabetes mellitus with diabetic autonomic (poly) neuropathy E11.43 [place] [id number] [place] [address] 71536- 2048 Dec, Severe episode of recurrent major depressive disorder, without psychotic features F33.2 and Anxiety, generalized F41.1 [facility] [id number] [place] [address] 79552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
--- OUTSIDE RECORDS SUMMARY | 2017-12-04 20:47 | XMS REPORT ---
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.4 Active 780875466 Problem Recurrent major depressive disorder, remission status unspecified F33.9 Active 76598494 Problem Severe episode of recurrent major depressive disorder, without psychotic features F33.2 Active 30369652 Problem Tobacco abuse Z72.0 Active 503464819 Problem Anxiety, generalized F41.1 Active 12512043 Problem Weakness R53.1 Active 02184184 Problem Stage 3 chronic kidney disease N18.3 Active 075832159 Problem Vaginal bleeding N93.9 Active 892547156 Problem Chronic nausea R11.0 Active 304751601 Problem Right lower quadrant abdominal pain R10.31 Active 165740978 Problem Self-inflicted injury Z72.89 Active 125654356 Problem Noncompliance with diabetes treatment Z91.19 Active 1875642 Problem Unspecified fall W19.XXXA Active 3703305 Problem Type 2 diabetes mellitus with diabetic polyneuropathy E11.42 Active 33991437 Problem Gastritis determined by endoscopy K29.70 Active 3230504 Problem Unspecified abdominal pain R10.9 Active 621568499 Problem Diarrhea, unspecified type R19.7 Active 69430858 Problem Left hip pain M25.552 Active 15372896 Problem Closed nondisplaced fracture of second metatarsal bone of left foot, initial encounter S92.325A Active 40119154 Problem Neck pain M54.2 Active 70269299 Problem Thrush B37.0 Active 10821602 Problem Anxiety F41.9 Active 23835268 Problem Swelling of both lower extremities M79.89 Active 28888320585475289 Problem Essential hypertension I10 Active 14615157 Problem Edema of both legs R60.0 Active 576178912 Problem Acquired hypothyroidism E03.9 Active 980490764 Problem Blister (nonthermal), right foot, initial encounter S90.821A Active 442113898 Problem Congestive heart failure, unspecified congestive heart failure chronicity, unspecified congestive heart failure type I50.9 Active 76771692 Problem Closed nondisplaced fracture of third metatarsal bone of left foot, initial encounter S92.335A Active 651438039 Problem Port catheter in place Z95.828 Active 573154530 Problem Chronic congestive heart failure, unspecified congestive heart failure type I50.9 Active 27906246 Problem Primary insomnia F51.01 Active 6891984 Problem Postural hypotension I95.1 Active 24988001 Problem Screening breast examination Z12.39 Active 690001028 Problem Acute non-recurrent maxillary sinusitis J01.00 Active 36715275 Problem Type 2 diabetes mellitus with diabetic autonomic (poly)neuropathy E11.43 Active 843727726 Problem Syncope, unspecified syncope type R55 Active 278305993 Problem Chronic pain syndrome G89.4 Active 656256410 Problem Acute pain of right shoulder M25.511 Active 49208106 Problem Epigastric pain R10.13 Active 42075492 Problem Seizure disorder G40.909 Active 475675389 Problem Gastroparesis K31.84 Active 096249347 Problem Chronic superficial gastritis without bleeding K29.30 Active 665771661 Problem Seasonal allergic rhinitis, unspecified allergic rhinitis trigger J30.2 Active 541807125 Problem Swelling of mandible R22.0 Active 695344168 ALLERGIES No Information SOCIAL HISTORY Never Assessed PLAN OF CARE VITAL SIGNS MEDICATIONS Medication Instructions Dosage Frequency Start Date End Date Duration Status Furosemide 20 mg Orally Once a day 1 tablet 24h 14 days Active RESULTS No Results PROCEDURES No [...] vein (port for IV access) Dr. Hernandez [facility] 08-29-2013 Surgical History partial hysterectomy Surgical History EGD Hospitalization History transfusion given after delivery Hospitalization History Chest pain, uncontrolled Hyperglycemia--[facility] 12/15/15 Hospitalization History Influenza B Hospitalization History pneumonia Hospitalization History [facility] 07/16/16 Hospitalization History for high sugar 07/12
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
--- OUTSIDE RECORDS SUMMARY | 2017-12-04 20:51 | XMS REPORT ---
Author Author MIRZA MARTINO Organization [facility] Address [address] [place] [address] Care Team Providers Care Occupational Therapy Aides Teacher Name Role Phone HAIMLindsey MIRZA Unavailable PROBLEMS Type Condition ICD9-CM Code [id number] Code Onset Dates Condition Status SNOMED Code Problem Postural hypotension I95.1 Active 69377655 Problem Seizure disorder G40.909 Active 994148619 Problem Seasonal allergic rhinitis, unspecified allergic rhinitis trigger J30.2 Active 666415917 Problem Closed nondisplaced fracture of second metatarsal bone of left foot, initial encounter S92.325A Active 26937852 Problem Essential hypertension I10 Active 13660768 Problem Multiple neurological symptoms R29.90 Active 393311564 Problem Port catheter in place Z95.828 Active 627461489 Problem Stage 3 chronic kidney disease N18.3 Active 780396640 Problem Gastritis determined by endoscopy K29.70 Active 9144986 Problem Self-inflicted injury Z72.89 Active 997442988 Problem Borderline personality disorder in adult F60.3 Active 12731929 Problem Chronic congestive heart failure, unspecified congestive heart failure type I50.9 Active 12095127 Problem Chronic pain syndrome G89.4 Active 672120255 Problem Primary insomnia F51.01 Active 5781849 Problem Acquired hypothyroidism E03.9 Active 667300023 Problem Gastroparesis K31.84 Active 431935161 Problem Severe episode of recurrent major depressive disorder, without psychotic features F33.2 Active 01596366 Problem Anxiety, generalized F41.1 Active 55549007 Problem 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 Active 171070260 Problem Type 2 diabetes mellitus with diabetic polyneuropathy E11.42 Active 25053327 Problem Tobacco abuse Z72.0 Active 235834322 Problem Noncompliance with diabetes treatment Z91.19 Active 9038383 ALLERGIES No Information ENCOUNTERS Encounter Location Date Diagnosis [facility] [id number], [place] [address] October, [facility] [address], [place] [address] October, [facility] [id number] [place] [address] 39132- 0235 October, [facility] [id number] [place] [address] 25168- 0107 October, [facility] [id number] [place] [address] 34260- 6002 Sep, [facility] [id number] [place] [address] 88309- 5774 Sep, Severe episode of recurrent major depressive disorder, without psychotic features F33.2 ; Anxiety, generalized F41.1 and Borderline personality disorder in adult F60.3 [facility] [id number] [place] [address] 96731- 6596 Sep, [facility] [id number] [place] [address] 46541- 0269 Sep, Throat pain R07.0 ; BMI 40.0-44.9, adult Z68.41 and Chronic pain syndrome G89.4 [facility] [id number] [place] [address] 31556- 7547 Sep, [facility] [id number] [place] [address] 38002- 2670 Sep, [facility] [id number] [place] [address] 99093- 9996 Sep, [facility] [id number] [place] [address] 59079- 5598 Sep, Anxiety, generalized F41.1 [facility] [id number] [place] [address] 74319- 1021 Sep, [facility] [address], [place] [address] Sep, Stage 3 chronic kidney disease N18.3 [facility] [id number] [place] [address] 03988- 5562 Sep, Stage 3 chronic kidney disease N18.3 and Chronic pain syndrome G89.4 [facility] [id number] [place] [address] 89151- 1915 Sep, Severe episode of recurrent major depressive disorder, without psychotic features F33.2 ; Anxiety, generalized F41.1 and Borderline personality disorder in adult F60.3 [facility] [id number] [place] [address] 06776- 7894 Sep, Chronic pain syndrome G89.4 ; Anxiety, generalized F41.1 and BMI 45.0-49.9, adult Z68.42 [facility] [id number] [place] [address] 09244- 4183 Sep, [facility] [id number] [place] [address] 92939- 3931 Sep, [facility] [id number] [place] [address] 63431- 8835 Sep, Severe episode of recurrent major depressive disorder, without psychotic features F33.2 ; Anxiety, generalized F41.1 and Borderline personality disorder in adult F60.3 [facility] [id number] [place] [address] 28458- 0536 Sep, [facility] [id number] [place] [address] 80997 -3230 Aug, Dysuria R30.0 ; Type 2 diabetes mellitus with diabetic polyneuropathy E11.42 ; Oral abscess K12.2 and BMI 40.0-44.9, adult Z68.41 [facility] [id number] [place] [address] 14236- 9555 30 Aug, 2017 [facility] [id number] [place] [address] 81803- 6927 Aug, [facility] [address] 80725- 1238 27 Aug, 2017 [facility] [address], [place] [address] 07[address] 27 Aug, 2017 [facility] [id number] [place] [address] 51187- 2302 27 Aug, 2017 Severe episode of recurrent major depressive disorder, without psychotic features F33.2 ; Anxiety, generalized F41.1 and Borderline personality disorder in adult F60.3 [facility] [id number] [place] [address] 50040- 0514 22 Aug, 2017 [facility] [id number] [place] [address] 49693- 9690 20 Aug, 2017 [facility] [id number] [place] [address] 37191- 5182 19 Aug, 2017 Severe episode of recurrent major depressive disorder, without psychotic features F33.2 ; Anxiety, generalized F41.1 and Borderline personality disorder in adult F60.3 [facility] [address] [address] 17 Aug, 2017 [facility] [id number] [place] [address] 06832- 5515 15 Aug, 2017 [facility] [id number] [place] [address] 29058- 0605 14 Aug, 2017 [facility] [id number] [place] [address] 67628 -4637 14 Aug, 2017 Dysuria R30.0 ; Dental infection K04.7 ; Acute cystitis with hematuria N30.01 and BMI 45.0-49.9, adult Z68.42 [facility] [id number] [place] [address] 47211- 3465 14 Aug, 2017 Severe episode of recurrent major depressive disorder, without psychotic features F33.2 ; Anxiety, generalized F41.1 and Borderline personality disorder in adult F60.3 [facility] [id number] [place] [address] 60764- 5214 Aug, [facility] [address], [place] [address] Aug, Closed nondisplaced fracture of second metatarsal bone of left foot, initial encounter S92.325A and Chronic pain syndrome G89.4 [facility] [address], [place] [address] 1389 Aug, Type 2 diabetes mellitus with diabetic polyneuropathy E11.42 [facility] [id number] [place] [address] 67384- 7597 Aug, Severe episode of recurrent major depressive disorder, without psychotic features F33.2 ; Anxiety, generalized F41.1 and Borderline personality disorder in adult F60.3 [facility] [address], [place] [address] 57[address] Aug, [facility] [id number] [place] [address] 85[address] Aug, [facility] [id number] [place] [address] 95[address] Aug, [facility] [address], [place] [address] 9614 Aug, [facility] [address], [place] [address] 3[address] Aug, [facility] [address], [place] [address]- 1354 Jul, [facility] [address], [place] [address]- 7[address] Jul, [facility] [address], [place] [address]- 9579 Jul, Severe episode of recurrent major depressive disorder, without psychotic features F33.2 ; Anxiety, generalized F41.1 and Borderline personality disorder in adult F60.3 [facility] [address], [place] [address] Jul, Type 2 diabetes mellitus with diabetic polyneuropathy E11.42 [facility] [address] [place] [address] 36468- 0724 Jul, Closed nondisplaced fracture of second metatarsal bone of left foot, initial encounter S92.325A and Closed nondisplaced fracture of third metatarsal bone of left foot, initial encounter S92.335A [facility] [id number] [place] [address] 66501- 9137 Jul, [facility] [id number] [place] [address] 17937- 1474 Jul, Closed nondisplaced fracture of second metatarsal bone of left foot, initial encounter S92.325A ; Acute left ankle pain M25.572 ; Acute midline low back pain without sciatica M54.5 and Seasonal allergic rhinitis, unspecified allergic rhinitis trigger J30.2 [facility] [id number] [place] [address] 42816- 7647 Jul, [facility] [id number] [place] [address] 56953- 6524 Jul, [facility] [id number] [place] [address] 71237- 9117 Jul, [facility] [id number] [place] [address] 40450- 5603 Jul, Frequent falls R29.6 [facility] [id number] [place] [address] 84633- 7933 14 Jul, 2017 Frequent falls R29.6 [facility] [id number] [place] [address] 92620- 6532 07 Jul, 2017 Severe episode of recurrent major depressive disorder, without psychotic features F33.2 ; Anxiety, generalized F41.1 and Borderline personality disorder in adult F60.3 [facility] [id number] [place] [address] 32015- 0368 07 Jul, 2017 Chronic pain syndrome G89.4 [facility] [id number] [place] [address] 16610- 6848 Jul, [facility] current use of insulin Z79.4 [facility] [id number] [place] [address] 54788- 5825 Jul, [facility] [address] 80209- 3705 Jul, Type 2 diabetes mellitus with diabetic polyneuropathy E11.42 [facility] [address] 27151- 1807 Jun, [facility] current use of insulin Z79.4 and Thrush B37.0 [facility] [address] 06479- 3460 Jun, Severe episode of recurrent major depressive disorder, without psychotic features F33.2 ; Anxiety, generalized F41.1 and Borderline personality disorder in adult F60.3 [facility] [address] 31557- 1448 Jun, Severe episode of recurrent major depressive disorder, without psychotic features F33.2 ; Anxiety, generalized F41.1 and Borderline personality disorder in adult F60.3 [facility] [id number] [place] [address] 93357- 9613 Jun, Frequent falls R29.6 ; Bronchitis J40 ; BMI 40.0-44.9, adult Z68.41 and Coccygeal pain, acute M53.3 [facility] [id number] [place] [address] 52303- 4419 Jun, [facility] [id number] [place] [address] 87343 -8540 Jun, [facility] [id number] [place] [address] 96604- 0173 Jun, [facility] [id number] [place] [address] 84687- 5902 Jun, Dental caries, unspecified K02.9 [facility] [address], [place] [address]- 4993 Jun, Acute non-recurrent maxillary sinusitis J01.00 and BMI 40.0- 44.9, adult Z68.41 [facility] [address], [place] [address]- 2885 Jun, [facility] [id number] [place] [address] 63492- 1293 Jun, Severe episode of recurrent major depressive disorder, without psychotic features F33.2 ; Anxiety, generalized F41.1 and Borderline personality disorder in adult F60.3 [place] [id number] [place] [address] 10497- 9819 11 Jun, 2017 Closed nondisplaced fracture of third metatarsal bone of left foot with routine healing, subsequent encounter S92.335D ; Closed nondisplaced fracture of second metatarsal bone of left foot with routine healing, subsequent encounter S92.325D and Closed nondisplaced fracture of fourth metatarsal bone of left foot with routine healing, subsequent encounter S92.345D [facility] [address], [place] [address]- 6348 Jun, Severe episode of recurrent major depressive disorder, without psychotic features F33.2 ; Anxiety, generalized F41.1 and Borderline personality disorder in adult F60.3 [facility] [id number] [address]- 9955 Jun, [facility] [address], [place] [address]- 9989 Jun, [facility] [address], [place] [address]- 6556 Jun, [facility] [address], [place] [address]- 5338 Jun, [facility] [address], [place] [address]- 2033 Jun, [facility] [address], [place] [address]- 3036 Jun, Anxiety F41.9 [facility] [id number] [place] [address] 81996- 2338 Jun, [facility] [address], [place] [address]- 9402 Jun, [facility] [id number] [place] [address] 75160- 8055 Jun, Type 2 diabetes mellitus with diabetic autonomic (poly) neuropathy E11.43 [facility] [address] [place] [address] 71531- 9214 Jun, Severe episode of recurrent major depressive disorder, without psychotic features F33.2 ; Anxiety, generalized F41.1 and Borderline personality disorder in adult F60.3 [facility] [id number] [place] [address] 64270- 0627 Jun, Type 2 diabetes mellitus with diabetic autonomic (poly) neuropathy E11.43 and Chronic pain syndrome G89.4 [facility] [id number] [place] [address] 04135- 2875 May, Recent urinary tract infection Z87.440 ; Deliberate self- cutting Z72.89 ; Chest discomfort R07.89 ; BMI 40.0-44.9, adult Z68.41 and Worried well Z71.1 [facility] [id number] [place] [address] 52569- 5597 May, Severe episode of recurrent major depressive disorder, without psychotic features F33.2 ; Anxiety, generalized F41.1 and Borderline personality disorder in adult F60.3 [facility] [address] [place] [address] 09422- 4821 18 May, 2017 [facility] [id number] [place] [address] 26082- 4386 May, [facility] [address], [place] [address]- 1608 May, Type 2 diabetes mellitus with diabetic autonomic (poly) neuropathy E11.43 [facility] [address] [place] [address] 41813- 4586 May, Severe episode of recurrent major depressive disorder, without psychotic features F33.2 ; Anxiety, generalized F41.1 and Borderline personality disorder in adult F60.3 [facility] [address] [place] [address] 46286- 9343 May, [facility] [address] [place] [address] 79469- 6715 May, Type 2 diabetes mellitus with diabetic autonomic (poly) neuropathy E11.43 ; Multiple neurological symptoms R29.90 ; Dysuria R30.0 ; Tobacco abuse Z72.0 ; Right hip pain M25.551 ; Anxiety F41.9 ; Gastritis determined by endoscopy K29.70 ; Chronic pain syndrome G89.4 ; Acute non- recurrent maxillary sinusitis J01.00 ; Self mutilating behavior Z72.89 and BMI 40.0-44.9, adult Z68.41 [facility] [id number] [place] [address] 34884- 7306 May, Severe episode of recurrent major depressive disorder, without psychotic features F33.2 ; Anxiety, generalized F41.1 and Borderline personality disorder in adult F60.3 [facility] [id number] [place] [address] 63405- 8286 Apr, [facility] [id number] [place] [address] 26694- 7569 Apr, [facility] [id number] [place] [address] 52846 -8884 Apr, [facility] [id number] [place] [address] 98070 -9797 Apr, Aspiration pneumonia of right lower lobe, unspecified aspiration pneumonia type J69.0 [facility] [id number] [place] [address] 71746- 0424 Apr, Severe episode of recurrent major depressive disorder, without psychotic features F33.2 ; Anxiety, generalized F41.1 and Borderline personality disorder in adult F60.3 [facility] [address], [place] [address]- 1193 Apr, [facility] [id number] [place] [address] 90199- 3111 Apr, Chronic pain syndrome G89.4 [facility] [id number] [place] [address] 18391- 3146 21 Apr, 2017 Severe episode of recurrent major depressive disorder, without psychotic features F33.2 ; Anxiety, generalized F41.1 and Borderline personality disorder in adult F60.3 [facility] [address] [place] [address] 49151- 2181 16 Apr, 2017 Severe episode of recurrent major depressive disorder, without psychotic features F33.2 ; Anxiety, generalized F41.1 and Borderline personality disorder in adult F60.3 [facility] [place] [address] [place] [address] 78941- 4628 16 Apr, 2017 Closed nondisplaced fracture of third metatarsal bone of left foot with routine healing, subsequent encounter S92.335D ; Closed nondisplaced fracture of fourth metatarsal bone of left foot with routine healing, subsequent encounter S92.345D and Closed nondisplaced fracture of second metatarsal bone of left foot with routine healing, subsequent encounter S92.325D [facility] [id number] [place] [address] 92389- 2400 16 Apr, 2017 [facility] [id number] [place] [address] 55201- 8679 15 Apr, 2017 [facility] [id number] [place] [address] 32425- 8100 14 Apr, 2017 [facility] [id number] [place] [address] 24552- 3836 13 Apr, 2017 Screening breast examination Z12.31 [facility] [address] [place] [address] 27072- 3784 09 Apr, 2017 [facility] [id number] [place] [address] 02926- 6621 Apr, Type 2 diabetes mellitus with diabetic autonomic (poly) neuropathy E11.43 [facility] [id number] [place] [address] 34117- 5219 Apr, Severe episode of recurrent major depressive disorder, without psychotic features F33.2 ; Anxiety, generalized F41.1 and Borderline personality disorder in adult F60.3 [facility] [address] 04899- 9711 Apr, Type 2 diabetes mellitus with diabetic autonomic (poly) neuropathy E11.43 ; Chronic pain syndrome G89.4 and Anxiety F41.9 [facility] [id number] [place] [address] 29781 -2640 Apr, BMI 45.0-49.9, adult Z68.42 [facility] [id number] [place] [address] 02600 -1715 Apr, Avulsion of toenail, initial encounter S91.209A and Acute non-recurrent maxillary sinusitis J01.00 [facility] [id number] [place] [address] 90589- 9343 Apr, [facility] [id number] [place] [address] 48368- 1411 Mar, [facility] [id number] [place] [address] 18137- 8726 Mar, Severe episode of recurrent major depressive disorder, without psychotic features F33.2 ; Anxiety, generalized F41.1 and Borderline personality disorder in adult F60.3 [facility] [id number] [place] [address] 62563- 9710 Mar, [facility] [id number] [place] [address] 25786- 6383 Mar, [facility] [id number] [place] [address] 74199- 3218 Mar, [facility] [id number] [place] [address] 98010- 2358 Mar, Seizure disorder G40.909 [facility] [id number] [place] [address] 41552- 9626 Mar, [facility] [id number] [place] [address] 44735- 6841 Mar, [facility] [id number] [place] [address] 21220 -5931 Mar, Left foot pain M79.672 ; Stage 3 chronic kidney disease N18.3 and Closed nondisplaced fracture of second metatarsal bone of left foot, initial encounter S92.325A [facility] [id number] [place] [address] 14242- 4749 Mar, Severe episode of recurrent major depressive disorder, without psychotic features F33.2 and Anxiety, generalized F41.1 [facility] [id number] [place] [address] 81941- 2611 Mar, [facility] [id number] [place] [address] 22361- 0935 Mar, Closed nondisplaced fracture of second metatarsal bone of left foot, initial encounter S92.325A and Closed nondisplaced fracture of third metatarsal bone of left foot, initial encounter S92.335A [facility] [id number] [place] [address] 26036- 9890 Mar, Seizure disorder G40.909 [facility] [id number] [place] [address] [id number]- [id number] Mar, [facility] [id number] [place] [address] [id number]- [phone] Mar, [facility] [id number] [place] [address] 19303- 2834 Mar, [facility] [id number] [place] [address] [id number]- [id number] Mar, [id number] [place] [address] 11518- 5410 Mar, High risk sexual behavior Z72.51 [facility] [id number] [place] [address] 01601- [phone] Mar, Severe episode of recurrent major depressive disorder, without psychotic features F33.2 and Anxiety, generalized F41.1 [place] [id number] [place] [address] 32534- 5440 Mar, Anxiety F41.9 and Type 2 diabetes mellitus with diabetic autonomic (poly)neuropathy E11.43 [place] [address] [id number] [place] [address] 48949- 0939 Mar, Anxiety F41.9 [place] [address] [id number] [place] [address] 48585- 5383 Mar, High risk sexual behavior Z72.51 [place] [address] [id number] [place] [address] 58759- 2747 Mar, Chronic pain syndrome G89.4 [place] [id number] [place] [address] 33946- 7992 Mar, Type 2 diabetes mellitus with diabetic autonomic (poly) neuropathy E11.43 [place] [id number] [place] [address] 31454- 9752 Mar, [place] [id number] [place] [address] 32118- 8981 Mar, Closed nondisplaced fracture of second metatarsal bone of left foot, initial encounter S92.325A ; Chronic pain syndrome G89.4 ; Closed nondisplaced fracture of third metatarsal bone of left foot, initial encounter S92.335A ; Acute left ankle pain M25.572 and Type 2 diabetes mellitus with diabetic autonomic (poly)neuropathy E11.43 [place] [address], [place] [address] 8[address] Mar, [place] [address] [address] 9171 Mar, [facility] [id number] [place] [address] 29223- 2169 Mar, Severe episode of recurrent major depressive disorder, without psychotic features F33.2 and Anxiety, generalized F41.1 [facility] [id number] [place] [address] 77728- 7413 Feb, [facility] [id number] [place] [address] 52745- 0742 Feb, Renal insufficiency N28.9 [facility] [id number] [place] [address] 45018- 4687 Feb, [facility] [id number] [place] [address] 74432- 4524 Feb, Severe episode of recurrent major depressive disorder, without psychotic features F33.2 and Anxiety, generalized F41.1 [facility] [address], [place] [address] 7174 Feb, [facility] [id number] [place] [address] 48699- 5966 22 Feb, 2017 [facility] [id number] [place] [address] 37186- 4666 Feb, Renal insufficiency N28.9 [facility] [address], [place] [address] 8217 19 Feb, 2017 [facility] [address], [place] [address] 18 Feb, 2017 [facility] [id number] [place] [address] 02539- 8803 14 Feb, 2017 [facility] [id number] [place] [address] 98932- 6437 13 Feb, 2017 Severe episode of recurrent major depressive disorder, without psychotic features F33.2 and Anxiety, generalized F41.1 [facility] [id number] [address] 0813 13 Feb, 2017 Closed nondisplaced fracture of second metatarsal bone of left foot, initial encounter S92.325A ; Chronic pain syndrome G89.4 ; Closed nondisplaced fracture of third metatarsal bone of left foot, initial encounter S92.335A ; Left hip pain M25.552 and Stage 3 chronic kidney disease N18.3 [facility] [id number] [place] [address] 58012- 4250 Feb, [facility] [id number] [place] [address] 86696- 8453 Feb, [place] [id number] [place] [address] 49924- 0095 Feb, Closed nondisplaced fracture of second metatarsal bone of left foot, initial encounter S92.325A and Closed nondisplaced fracture of third metatarsal bone of left foot, initial encounter S92.335A [place] [id number] [place] [address] 76033- 5507 Feb, [facility] [id number] [place] [address] 35835- 2616 Feb, Anxiety F41.9 [facility] [id number] [place] [address] 26049- 5428 Feb, [facility] [id number] [place] [address] 71756- 6302 Feb, Chronic pain syndrome G89.4 [facility] [id number] [place] [address] 39629- 9086 05 Feb, 2017 Left foot pain M79.672 ; Closed nondisplaced fracture of second metatarsal bone of left foot, initial encounter S92.325A ; Closed nondisplaced fracture of third metatarsal bone of left foot, initial encounter S92.335A and Oral infection K12.2 [facility] [id number] [place] [address] 49387- 5242 Feb, [facility] [address], [place] [address]- 7102 Jan, [facility] [id number] [place] [address] 49266- 3797 Jan, Type 2 diabetes mellitus with diabetic autonomic (poly) neuropathy E11.43 and Congestive heart failure, unspecified congestive heart failure chronicity, unspecified congestive heart failure type I50.9 [facility] [id number] [place] [address] 64272- 5359 Jan, Congestive heart failure, unspecified congestive heart failure chronicity, unspecified congestive heart failure type I50.9 and Stage 3 chronic kidney disease N18.3 [place] [id number] [place] [address] 07292- 7127 Jan, Stage 3 chronic kidney disease N18.3 ; Edema of both legs R60.0 ; Chronic congestive heart failure, unspecified congestive heart failure type I50.9 ; Acute low back pain without sciatica, unspecified back pain laterality M54.5 ; Chronic nausea R11.0 and Primary insomnia F51.01 [facility] [id number] [place] [address] 14898- 1573 Jan, Severe episode of recurrent major depressive disorder, without psychotic features F33.2 and Anxiety, generalized F41.1 [place] [id number] [place] [address] 03886- 5870 Jan, [facility] [id number] [place] [address] 83641- 1227 Jan, [facility] [id number] [place] [address] 85541- 9955 Jan, [facility] [id number] [place] [address] 00915- 3272 Jan, [facility] [id number] [place] [address] 06218- 9246 Jan, Anxiety F41.9 and Severe episode of recurrent major depressive disorder, without psychotic features F33.2 [place] [address], [place] [address]- 0823 Jan, Type 2 diabetes mellitus with diabetic autonomic (poly) neuropathy E11.43 [place] [id number] [place] [address] 21878- 4975 Jan, Severe episode of recurrent major depressive disorder, without psychotic features F33.2 and Type 2 diabetes mellitus with diabetic autonomic (poly)neuropathy E11.43 [place] [id number] [place] [address] 38131- 7477 Jan, [place] [id number] [place] [address] 15480- 3424 Jan, [place] [id number] [place] [address] 61983- 8258 Jan, Stage 3 chronic kidney disease N18.3 ; Seizure disorder G40.909 ; Edema of both legs R60.0 and Blister (nonthermal), right foot, initial encounter S90.821A [place] [id number] [place] [address] 58104- 9312 Jan, Severe episode of recurrent major depressive disorder, without psychotic features F33.2 and Anxiety, generalized F41.1 [place] [id number] [place] [address] 07035- 1037 Jan, Severe episode of recurrent major depressive disorder, without psychotic features F33.2 and Anxiety, generalized F41.1 [place] [id number] [place] [address] 87761- 8387 Jan, [place] [id number] [place] [address] 95315- 1059 Jan, Anxiety F41.9 and Primary insomnia F51.01 [place] [id number] [place] [address] 77573- 8389 Jan, Type 2 diabetes mellitus with diabetic autonomic (poly) neuropathy E11.43 ; 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 ; Stage 3 chronic kidney disease N18.3 ; Chronic pain syndrome G89.4 ; Swelling of mandible R22.0 and Seizure disorder G40.909 [place] [id number] [place] [address] 45047- 4229 Jan, [place] [id number] [place] [address] 77654- 7496 Jan, [place] [address] 41548- 5004 Dec, Severe episode of recurrent major depressive disorder, without psychotic features F33.2 and Anxiety, generalized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
--- OUTSIDE RECORDS SUMMARY | 2017-12-04 20:53 | XMS REPORT ---
Author Author MIRZA MARTINO [facility] Address [address] [place] [address] Care Team Providers Care Kiln Firer Name Role Phone MIRZA MARTINO Unavailable PROBLEMS Type Condition ICD9-CM Code [id number] Code Onset Dates Condition Status SNOMED Code Problem Tobacco abuse Z72.0 Active 474497898 Problem [facility]CI current use of insulin Z79.4 Active 388597266 Problem Anxiety, generalized F41.1 Active 13303906 Problem Severe episode of recurrent major depressive disorder, without psychotic features F33.2 Active 98852407 Problem Stage 3 chronic kidney disease N18.3 Active 106025013 Problem Weakness R53.1 Active 41687529 Problem High risk sexual behavior Z72.51 Active 156506593 Problem Vaginal bleeding N93.9 Active 656246769 Problem Port catheter in place Z95.828 Active 850511514 Problem Chronic nausea R11.0 Active 887598842 Problem Right lower quadrant abdominal pain R10.31 Active 192320233 Problem Noncompliance with diabetes treatment Z91.19 Active 4353827 Problem Unspecified fall W19.XXXA Active 5901599 Problem Type 2 diabetes mellitus with diabetic polyneuropathy E11.42 Active 59025590 Problem Diarrhea, unspecified type R19.7 Active 78996640 Problem Swelling of both lower extremities M79.89 Active 99120307256862251 Problem Gastritis determined by endoscopy K29.70 Active 2887466 Problem Blister (nonthermal), right foot, initial encounter S90.821A Active 510918894 Problem Unspecified abdominal pain R10.9 Active 831620630 Problem Borderline personality disorder in adult F60.3 Active 96748897 Problem Closed nondisplaced fracture of second metatarsal bone of left foot, initial encounter S92.325A Active 83835125 Problem Syncope, unspecified syncope type R55 Active 277830272 Problem Neck pain M54.2 Active 93603729 Problem Epigastric pain R10.13 Active 57744223 Problem Thrush B37.0 Active 63169714 Problem Anxiety F41.9 Active 03854252 Problem Chronic congestive heart failure, unspecified congestive heart failure type I50.9 Active 71114097 Problem Essential hypertension I10 Active 54374480 Problem Edema of both legs R60.0 Active 259511446 Problem Acquired hypothyroidism E03.9 Active 532281295 Problem Closed nondisplaced fracture of third metatarsal bone of left foot, initial encounter S92.335A Active 373666178 Problem Congestive heart failure, unspecified congestive heart failure chronicity, unspecified congestive heart failure type I50.9 Active 19232725 Problem Left hip pain M25.552 Active 12512202 Problem Screening breast examination Z12.39 Active 889360278 Problem Acute non-recurrent maxillary sinusitis J01.00 Active 00790069 Problem Recurrent major depressive disorder, remission status unspecified F33.9 Active 70780837 Problem Seasonal allergic rhinitis, unspecified allergic rhinitis trigger J30.2 Active 042113501 Problem Chronic pain syndrome G89.4 Active 852609787 Problem Acute pain of right shoulder M25.511 Active 71124595 Problem Primary insomnia F51.01 Active 2749185 Problem Postural hypotension I95.1 Active 57922586 Problem Gastroparesis K31.84 Active 322781173 Problem Chronic superficial gastritis without bleeding K29.30 Active 799571988 Problem Type 2 diabetes mellitus with diabetic autonomic (poly)neuropathy E11.43 Active 122863401 Problem Self-inflicted injury Z72.89 Active 051488836 Problem Swelling of mandible R22.0 Active 946324927 Problem Seizure disorder G40.909 Active 871348377 ALLERGIES No Information SOCIAL HISTORY Never Assessed PLAN OF CARE VITAL SIGNS MEDICATIONS Medication Instructions Dosage Frequency Start Date End Date Duration Status Tizanidine HCl 4 MG Orally Three times a day 1 tablet as needed 8h 28 days Active RESULTS No Results PROCEDURES [...] IV access) Dr. Hernandez [facility] - Surgical History partial hysterectomy Surgical History EGD Hospitalization History transfusion given after delivery Hospitalization History Chest pain, uncontrolled Hyperglycemia--[facility]ia [facility] 12/15/15 Hospitalization History Influenza B Hospitalization History pneumonia Hospitalization History [facility] 07/16/16 Hospitalization History for high sugar 07/12
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
--- OUTSIDE RECORDS SUMMARY | 2017-12-04 20:57 | XMS REPORT ---
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 Name Role Phone SALENA MIRZA Unavailable PROBLEMS Type Condition ICD9-CM Code [id number] Code Onset Dates Condition Status SNOMED Code Problem Seasonal allergic rhinitis, unspecified allergic rhinitis trigger J30.2 Active 586288050 Problem Self-inflicted injury Z72.89 Active 814932861 Problem Seizure disorder G40.909 Active 252000361 Problem Postconcussion syndrome F07.81 Active 81460192 Problem Acquired hypothyroidism E03.9 Active 797063111 Problem Closed nondisplaced fracture of second metatarsal bone of left foot, initial encounter S92.325A Active 70498367 Problem Essential hypertension I10 Active 68450507 Problem Port catheter in place Z95.828 Active 563942353 Problem Chronic congestive heart failure, unspecified congestive heart failure type I50.9 Active 46524262 Problem Gastritis determined by endoscopy K29.70 Active 7397498 Problem Multiple neurological symptoms R29.90 Active 398748001 Problem Borderline personality disorder in adult F60.3 Active 92918857 Problem Primary insomnia F51.01 Active 2520692 Problem 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 Active 012755888 Problem Gastroparesis K31.84 Active 603307636 Problem Chronic pain syndrome G89.4 Active 946087315 Problem Anxiety, generalized F41.1 Active 40244356 Problem Type 2 diabetes mellitus with diabetic polyneuropathy E11.42 Active 95413792 Problem Tobacco abuse Z72.0 Active 916380654 Problem Noncompliance with diabetes treatment Z91.19 Active 6275470 Problem Stage 3 chronic kidney disease N18.3 Active 992630067 Problem Severe episode of recurrent major depressive disorder, without psychotic features F33.2 Active 31353186 Problem Postural hypotension I95.1 Active 24999504 ALLERGIES No Information ENCOUNTERS Encounter Location Date Diagnosis [facility] [id number] [address] October, [facility] [id number] [place] [address] 87221- 5838 October, [facility] [id number] [place] [address] 59887- 8536 October, [facility] [id number] [place] [address] 85919- 5691 October, [facility] [id number] [place] [address] 89750- 2894 Sep, [facility] [id number] [place] [address] 49726 -9517 Sep, Neck pain M54.2 ; Strain of lumbar region, initial encounter S39.012A and Postconcussion syndrome F07.81 [facility] [id number] [place] [address] 72565- 7573 Sep, [facility] [id number] [place] [address] 93391- 0140 Sep, Severe episode of recurrent major depressive disorder, without psychotic features F33.2 ; Anxiety, generalized F41.1 and Borderline personality disorder in adult F60.3 [facility] [id number] [place] [address] 26373- 7863 Sep, [facility] [id number] [place] [address] 03986- 2313 Sep, Throat pain R07.0 ; BMI 40.0-44.9, adult Z68.41 and Chronic pain syndrome G89.4 [facility] [id number] [place] [address] 74058- 1590 Sep, [facility] [id number] [place] [address] 01705- 5702 Sep, [facility] [id number] [place] [address] 88181- 3873 Sep, [facility] [id number], [place] [address] 4[address] Sep, Anxiety, generalized F41.1 [facility] [id number] [place] [address] 97873- 7969 Sep, [facility] [id number] [place] [address] 43313- 8340 Sep, Stage 3 chronic kidney disease N18.3 [facility] [id number] [place] [address] 72467- 8594 Sep, Stage 3 chronic kidney disease N18.3 and Chronic pain syndrome G89.4 [facility] [id number] [place] [address] 92809- 8528 Sep, Severe episode of recurrent major depressive disorder, without psychotic features F33.2 ; Anxiety, generalized F41.1 and Borderline personality disorder in adult F60.3 [facility] [id number] [place] [address] 03512- 0100 Sep, Chronic pain syndrome G89.4 ; Anxiety, generalized F41.1 and BMI 45.0-49.9, adult Z68.42 [facility] [id number] [place] [address] 57092- 0571 Sep, [facility] [id number] [place] [address] 80354- 7255 Sep, [facility] [id number] [place] [address] 84933- 7146 Sep, Severe episode of recurrent major depressive disorder, without psychotic features F33.2 ; Anxiety, generalized F41.1 and Borderline personality disorder in adult F60.3 [facility] [id number] [place] [address] 84478- 5360 Sep, [facility] [id number] [place] [address] 16404 -5615 Aug, Dysuria R30.0 ; Type 2 diabetes mellitus with diabetic polyneuropathy E11.42 ; Oral abscess K12.2 and BMI 40.0-44.9, adult Z68.41 [facility] [id number] [place] [address] 42166- 1267 30 Aug, 2017 [facility] [id number] [place] [address] 17567- 0908 Aug, [facility] [id number] [place] [address] 49365- 3486 Aug, [facility] [id number] [place] [address] 02081- 4621 Aug, [facility] [id number] [place] [address] 57218- 1236 Aug, Severe episode of recurrent major depressive disorder, without psychotic features F33.2 ; Anxiety, generalized F41.1 and Borderline personality disorder in adult F60.3 [facility] [id number] [place] [address] 80857- 6074 22 Aug, 2017 [facility] [id number] [place] [address] 91260- 1194 20 Aug, 2017 [facility] [id number] [place] [address] 58665- 4799 19 Aug, 2017 Severe episode of recurrent major depressive disorder, without psychotic features F33.2 ; Anxiety, generalized F41.1 and Borderline personality disorder in adult F60.3 [facility] [address] [address] 17 Aug, 2017 [facility] [id number], [place] [address] 9589 15 Aug, 2017 [facility] [id number] [place] [address] 97525- 5524 14 Aug, 2017 [facility] [address] [address] 14 Aug, 2017 Dysuria R30.0 ; Dental infection K04.7 ; Acute cystitis with hematuria N30.01 and BMI 45.0-49.9, adult Z68.42 [facility] [id number] [place] [address] 45124- 8586 14 Aug, 2017 Severe episode of recurrent major depressive disorder, without psychotic features F33.2 ; Anxiety, generalized F41.1 and Borderline personality disorder in adult F60.3 [facility] [id number] [place] [address] 65246- 2123 Aug, [facility] [id number] [place] [address] 00480- 7536 Aug, Closed nondisplaced fracture of second metatarsal bone of left foot, initial encounter S92.325A and Chronic pain syndrome G89.4 [facility] [id number] [place] [address] 75716- 7605 Aug, Type 2 diabetes mellitus with diabetic polyneuropathy E11.42 [facility] [id number] [place] [address] 48576- 7049 08 Aug, 2017 Severe episode of recurrent major depressive disorder, without psychotic features F33.2 ; Anxiety, generalized F41.1 and Borderline personality disorder in adult F60.3 [facility] [id number] [place] [address] 57976- 1808 Aug, [facility] [id number] [place] [address] 22855- 9669 Aug, [facility] [id number] [place] [address] 60407- 2757 Aug, [facility] [id number] [place] [address] 07986- 8228 Aug, [facility] [id number] [place] [address] 92271- 8511 Aug, [facility] [id number] [place] [address] 77994- 2895 Jul, [facility] [id number] [place] [address] 34670- 6336 Jul, [facility] [id number] [place] [address] 82064- 2239 Jul, Severe episode of recurrent major depressive disorder, without psychotic features F33.2 ; Anxiety, generalized F41.1 and Borderline personality disorder in adult F60.3 [facility] [id number] [place] [address] 82095- 9923 Jul, Type 2 diabetes mellitus with diabetic polyneuropathy E11.42 [facility] [id number] [place] [address] 38442- 2148 Jul, Closed nondisplaced fracture of second metatarsal bone of left foot, initial encounter S92.325A and Closed nondisplaced fracture of third metatarsal bone of left foot, initial encounter S92.335A [facility] [id number] [place] [address] 97651- 0482 Jul, [facility] [id number] [place] [address] 49425- 8999 Jul, Closed nondisplaced fracture of second metatarsal bone of left foot, initial encounter S92.325A ; Acute left ankle pain M25.572 ; Acute midline low back pain without sciatica M54.5 and Seasonal allergic rhinitis, unspecified allergic rhinitis trigger J30.2 [facility] [id number] [place] [address] 78282- 7272 Jul, [facility] [id number] [place] [address] 67842- 8404 Jul, [facility] [id number] [place] [address] 24285- 3381 Jul, [facility] [id number] [place] [address] 74161- 4590 Jul, Frequent falls R29.6 [facility] [id number] [place] [address] 23281- 8234 14 Jul, 2017 Frequent falls R29.6 [facility] [id number] [place] [address] 24432- 4550 07 Jul, 2017 Severe episode of recurrent major depressive disorder, without psychotic features F33.2 ; Anxiety, generalized F41.1 and Borderline personality disorder in adult F60.3 [facility] [id number] [place] [address] 60961- 3952 Jul, Chronic pain syndrome G89.4 [facility] [address] 13986- 6552 Jul, 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 [facility] [address] 67744- 3850 Jul, [facility] [address] 72090- 2990 Jul, Type 2 diabetes mellitus with diabetic polyneuropathy E11.42 [facility] [facility] [address] 15061- 6657 Jun, 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 and Thrush B37.0 [place] [address] 42383- 1883 Jun, Severe episode of recurrent major depressive disorder, without psychotic features F33.2 ; Anxiety, generalized F41.1 and Borderline personality disorder in adult F60.3 [facility] [id number] [place] [address] 83728- 3755 Jun, Severe episode of recurrent major depressive disorder, without psychotic features F33.2 ; Anxiety, generalized F41.1 and Borderline personality disorder in adult F60.3 [place] [address] 79389- 8972 Jun, Frequent falls R29.6 ; Bronchitis J40 ; BMI 40.0-44.9, adult Z68.41 and Coccygeal pain, acute M53.3 [place] [address] 04130- 6286 Jun, [facility] [id number] [address] Jun, [facility] [id number] [place] [address] 16314- 8834 Jun, [facility] [id number] [place] [address] 22330- 9121 Jun, Dental caries, unspecified K02.9 [facility] [id number] [place] [address] 59351- 1007 17 Jun, 2017 Acute non-recurrent maxillary sinusitis J01.00 and BMI 40.0- 44.9, adult Z68.41 [facility] [id number] [place] [address] 30434- 9297 17 Jun, 2017 [facility] [id number] [place] [address] 78585- 4147 Jun, Severe episode of recurrent major depressive disorder, without psychotic features F33.2 ; Anxiety, generalized F41.1 and Borderline personality disorder in adult F60.3 [facility] [id number] [place] [address] 89392- 3724 11 Jun, 2017 Closed nondisplaced fracture of third metatarsal bone of left foot with routine healing, subsequent encounter S92.335D ; Closed nondisplaced fracture of second metatarsal bone of left foot with routine healing, subsequent encounter S92.325D and Closed nondisplaced fracture of fourth metatarsal bone of left foot with routine healing, subsequent encounter S92.345D [facility] [id number] [address]- 65[address] Jun, Severe episode of recurrent major depressive disorder, without psychotic features F33.2 ; Anxiety, generalized F41.1 and Borderline personality disorder in adult F60.3 [facility] [address] [address]- 7560 Jun, [facility] [id number] [place] [address] 74050- 7667 Jun, [facility] [address] [address]- 0803 Jun, [facility] [id number] [place] [address] 26450- 2247 Jun, [facility] [id number] [place] [address] 44090- 0405 Jun, [facility] [id number] [place] [address] 36985- 6937 Jun, Anxiety F41.9 [facility] [id number] [place] [address] 31197- 1713 Jun, [facility] [id number] [place] [address] 50604- 1123 Jun, [facility] [id number] [place] [address] 96927- 3789 Jun, Type 2 diabetes mellitus with diabetic autonomic (poly) neuropathy E11.43 [facility] [id number] [place] [address] 15352- 5129 Jun, Severe episode of recurrent major depressive disorder, without psychotic features F33.2 ; Anxiety, generalized F41.1 and Borderline personality disorder in adult F60.3 [facility] [address] [address]- 4991 Jun, Type 2 diabetes mellitus with diabetic autonomic (poly) neuropathy E11.43 and Chronic pain syndrome G89.4 [facility] [address] [address]- 8513 May, Recent urinary tract infection Z87.440 ; Deliberate self- cutting Z72.89 ; Chest discomfort R07.89 ; BMI 40.0-44.9, adult Z68.41 and Worried well Z71.1 [facility] [place] [address] [address]- 7620 May, Severe episode of recurrent major depressive disorder, without psychotic features F33.2 ; Anxiety, generalized F41.1 and Borderline personality disorder in adult F60.3 [facility] [address] [address]- 3732 18 May, 2017 [facility] [id number] [place] [address] 47866- 9230 May, [facility] [id number] [place] [address] 77963- 7236 May, Severe episode of recurrent major depressive disorder, without psychotic features F33.2 ; Anxiety, generalized F41.1 and Borderline personality disorder in adult F60.3 [facility] [id number] [place] [address] 76476- 1674 12 May, 2017 Type 2 diabetes mellitus with diabetic autonomic (poly) neuropathy E11.43 [facility] [place] [id number] [place] [address] 75877- 6317 07 May, 2017 [facility] [id number] [place] [address] 47581- 0184 May, Type 2 diabetes mellitus with diabetic autonomic (poly) neuropathy E11.43 ; Multiple neurological symptoms R29.90 ; Dysuria R30.0 ; Tobacco abuse Z72.0 ; Right hip pain M25.551 ; Anxiety F41.9 ; Gastritis determined by endoscopy K29.70 ; Chronic pain syndrome G89.4 ; Acute non- recurrent maxillary sinusitis J01.00 ; Self mutilating behavior Z72.89 and BMI 40.0-44.9, adult Z68.41 [place] [id number] [place] [address] 15417- 6120 05 May, 2017 Severe episode of recurrent major depressive disorder, without psychotic features F33.2 ; Anxiety, generalized F41.1 and Borderline personality disorder in adult F60.3 [facility] [id number] [place] [address] 83125- 0522 Apr, [facility] [id number] [place] [address] 80900- 5547 Apr, [facility] [id number] [address] Apr, [facility] [id number] [place] [address] 19340 -2307 Apr, Aspiration pneumonia of right lower lobe, unspecified aspiration pneumonia type J69.0 [facility] [id number] [place] [address] 76784- 7745 Apr, Severe episode of recurrent major depressive disorder, without psychotic features F33.2 ; Anxiety, generalized F41.1 and Borderline personality disorder in adult F60.3 [facility] [id number] [place] [address] 55313- 3157 Apr, [facility] [id number] [place] [address] 71737- 6742 Apr, Chronic pain syndrome G89.4 [facility] [id number] [place] [address] 25362- 7273 Apr, Severe episode of recurrent major depressive disorder, without psychotic features F33.2 ; Anxiety, generalized F41.1 and Borderline personality disorder in adult F60.3 [facility] [id number] [place] [address] 45188- 3121 Apr, Severe episode of recurrent major depressive disorder, without psychotic features F33.2 ; Anxiety, generalized F41.1 and Borderline personality disorder in adult F60.3 [facility] [id number] [place] [address] 16257- 3072 Apr, Closed nondisplaced fracture of third metatarsal bone of left foot with routine healing, subsequent encounter S92.335D ; Closed nondisplaced fracture of fourth metatarsal bone of left foot with routine healing, subsequent encounter S92.345D and Closed nondisplaced fracture of second metatarsal bone of left foot with routine healing, subsequent encounter S92.325D [facility] [id number] [place] [address] 01337- 1032 Apr, [facility] [id number] [place] [address] 20299- 5258 Apr, [facility] [place] [id number] [place] [address] 80928- 1853 14 Apr, 2017 [facility] [id number] [place] [address] 76996- 1283 Apr, Screening breast examination Z12.31 [facility] [id number] [place] [address] 68446- 0261 Apr, [facility] [place] [id number] [place] [address] 68115- 1563 Apr, Type 2 diabetes mellitus with diabetic autonomic (poly) neuropathy E11.43 [place] [id number] [place] [address] 54974- 2195 Apr, Severe episode of recurrent major depressive disorder, without psychotic features F33.2 ; Anxiety, generalized F41.1 and Borderline personality disorder in adult F60.[address] 62732- 4651 Apr, Type 2 diabetes mellitus with diabetic autonomic (poly) neuropathy E11.43 ; Chronic pain syndrome G89.4 and Anxiety F41.9 [facility] [place] [id number] [place] [address] 12384 -4608 Apr, BMI 45.0-49.9, adult Z68.42 [facility] [place] [id number] [place] [address] 55743 -6082 Apr, Avulsion of toenail, initial encounter S91.209A and Acute non-recurrent maxillary sinusitis J01.00 [facility] [id number] [place] [address] 55731- 3510 Apr, [place] [id number] [place] [address] 88893- 6340 Mar, [facility] [place] [id number] [place] [address] 27752- 9705 Mar, Severe episode of recurrent major depressive disorder, without psychotic features F33.2 ; Anxiety, generalized F41.1 and Borderline personality disorder in adult F60.3 [facility] [address], [place] [address]- 2134 Mar, [facility] [id number] [place] [address] 54811- 8049 Mar, [facility] [id number] [place] [address] 74986- 6608 Mar, [facility] [id number] [place] [address] 20692- 9172 Mar, Seizure disorder G40.909 [facility] [id number] [place] [address] 66197- 1097 Mar, [facility] [id number] [place] [address] 53056- 9695 Mar, [facility] [id number] [place] [address] 17834 -1087 Mar, Left foot pain M79.672 ; Stage 3 chronic kidney disease N18.3 and Closed nondisplaced fracture of second metatarsal bone of left foot, initial encounter S92.325A [place] [id number] [place] [address] 46931- 2271 Mar, Severe episode of recurrent major depressive disorder, without psychotic features F33.2 and Anxiety, generalized F41.1 [facility] [id number] [place] [address] 50851- 7831 Mar, [facility] [id number] [place] [address] 96947- 6909 Mar, Closed nondisplaced fracture of second metatarsal bone of left foot, initial encounter S92.325A and Closed nondisplaced fracture of third metatarsal bone of left foot, initial encounter S92.335A [facility] [address] [address]- 1923 Mar, Seizure disorder G40.909 [facility] [id number] [address]- 8351 Mar, [facility] [id number] [place] [address] 09813- 7714 Mar, [facility] [id number] [place] [address] 27989- 3259 Mar, [facility] [id number] [place] [address] 79217- 0242 Mar, [facility] [id number] [place] [address] 13981- 4503 Mar, High risk sexual behavior Z72.51 [place] [id number] [place] [address] 14227- 8578 Mar, Severe episode of recurrent major depressive disorder, without psychotic features F33.2 and Anxiety, generalized F41.1 [facility] [id number] [place] [address] 46350- 7565 Mar, Anxiety F41.9 and Type 2 diabetes mellitus with diabetic autonomic (poly)neuropathy E11.43 [facility] [id number] [place] [address] 19003- 5524 Mar, Anxiety F41.9 [facility] [id number] [place] [address] 94561- 0641 Mar, High risk sexual behavior Z72.51 [facility] [id number] [place] [address] 26650- 3198 Mar, Chronic pain syndrome G89.4 [facility] [id number] [place] [address] 58755- 1215 Mar, Type 2 diabetes mellitus with diabetic autonomic (poly) neuropathy E11.43 [facility] [id number] [place] [address] 58592- 8541 Mar, [facility] [id number] [place] [address] 71550- 3558 Mar, Closed nondisplaced fracture of second metatarsal bone of left foot, initial encounter S92.325A ; Chronic pain syndrome G89.4 ; Closed nondisplaced fracture of third metatarsal bone of left foot, initial encounter S92.335A ; Acute left ankle pain M25.572 and Type 2 diabetes mellitus with diabetic autonomic (poly)neuropathy E11.43 [facility] [id number] [place] [address] 71641- 1849 Mar, [facility] [address] 53242- 8829 Mar, [facility] [address] 93342- 3602 Mar, Severe episode of recurrent major depressive disorder, without psychotic features F33.2 and Anxiety, generalized F41.1 [facility] [id number] [place] [address] 73989- 5017 Feb, [facility] [address] 61395- 1057 Feb, Renal insufficiency N28.9 [facility] [id number] [place] [address] 28227- 7572 Feb, [facility] [id number] [place] [address] 34545- 3571 Feb, Severe episode of recurrent major depressive disorder, without psychotic features F33.2 and Anxiety, generalized F41.1 [facility] [id number] [place] [address] 29122- 9276 Feb, [facility] [id number] [place] [address] 67993- 4172 Feb, [facility] [id number] [place] [address] 06028- 2195 Feb, Renal insufficiency N28.9 [facility] [id number] [place] [address] 85981- 1873 Feb, [facility] [address] 53761 -4921 18 Feb, 2017 [facility] [id number] [address] 9654 14 Feb, 2017 [facility] [id number] [place] [address] 82620- 1649 13 Feb, 2017 Severe episode of recurrent major depressive disorder, without psychotic features F33.2 and Anxiety, generalized F41.1 [facility] [id number] [place] [address] 32766- 6376 13 Feb, 2017 Closed nondisplaced fracture of second metatarsal bone of left foot, initial encounter S92.325A ; Chronic pain syndrome G89.4 ; Closed nondisplaced fracture of third metatarsal bone of left foot, initial encounter S92.335A ; Left hip pain M25.552 and Stage 3 chronic kidney disease N18.3 [facility] [id number] [place] [address] 40388- 7169 07 Feb, 2017 [facility] [id number] [place] [address] 41992- 4137 Feb, [facility] [id number] [place] [address] 59835- 9945 Feb, Closed nondisplaced fracture of second metatarsal bone of left foot, initial encounter S92.325A and Closed nondisplaced fracture of third metatarsal bone of left foot, initial encounter S92.335A [facility] [id number] [address]- 8187 Feb, [facility] [id number] [address]- 2547 Feb, Anxiety F41.9 [facility] [id number] [place] [address] 89865- 5296 Feb, [facility] [id number] [place] [address] 79738- 2067 Feb, Chronic pain syndrome G89.4 [facility] [id number] [place] [address] 74029- 3601 Feb, Left foot pain M79.672 ; Closed nondisplaced fracture of second metatarsal bone of left foot, initial encounter S92.325A ; Closed nondisplaced fracture of third metatarsal bone of left foot, initial encounter S92.335A and Oral infection K12.2 [facility] [id number] [place] [address] 46178- 5358 Feb, [facility] [id number] [place] [address] 55649- 2884 Jan, [facility] [id number] [place] [address] 92659- 1416 Jan, Type 2 diabetes mellitus with diabetic autonomic (poly) neuropathy E11.43 and Congestive heart failure, unspecified congestive heart failure chronicity, unspecified congestive heart failure type I50.9 [place] [id number] [place] [address] 51641- 0267 Jan, Congestive heart failure, unspecified congestive heart failure chronicity, unspecified congestive heart failure type I50.9 and Stage 3 chronic kidney disease N18.3 [facility] [id number] [place] [address] 02010- 5761 Jan, Stage 3 chronic kidney disease N18.3 ; Edema of both legs R60.0 ; Chronic congestive heart failure, unspecified congestive heart failure type I50.9 ; Acute low back pain without sciatica, unspecified back pain laterality M54.5 ; Chronic nausea R11.0 and Primary insomnia F51.01 [facility] [id number] [place] [address] 89856- 7013 Jan, Severe episode of recurrent major depressive disorder, without psychotic features F33.2 and Anxiety, generalized F41.1 [place] [id number] [place] [address] 34443- 7542 Jan, [facility] [id number] [place] [address] 51985- 7586 Jan, [facility] [id number] [place] [address] 87852- 4440 Jan, [facility] [id number] [place] [address] 82030- 7614 Jan, [facility] [id number] [place] [address] 03409- 9845 Jan, Anxiety F41.9 and Severe episode of recurrent major depressive disorder, without psychotic features F33.2 [facility] [id number] [place] [address] 13849- 3033 Jan, Type 2 diabetes mellitus with diabetic autonomic (poly) neuropathy E11.43 [facility] [id number] [place] [address] 60090- 2796 Jan, Severe episode of recurrent major depressive disorder, without psychotic features F33.2 and Type 2 diabetes mellitus with diabetic autonomic (poly)neuropathy E11.43 [facility] [id number] [place] [address] 87753- 6672 Jan, [facility] [id number] [place] [address] 97368- 8581 Jan, [facility] [id number] [place] [address] 26519- 1959 Jan, Stage 3 chronic kidney disease N18.3 ; Seizure disorder G40.909 ; Edema of both legs R60.0 and Blister (nonthermal), right foot, initial encounter S90.821A [facility] [id number] [place] [address] 16595- 5943 Jan, Severe episode of recurrent major depressive disorder, without psychotic features F33.2 and Anxiety, generalized F41.1 [facility] [id number] [place] [address] 72074- 6509 Jan, Severe episode of recurrent major depressive disorder, without psychotic features F33.2 and Anxiety, generalized F41.1 [facility] [id number] [place] [address] 42927- 9897 Jan, [facility] [id number] [place] [address] 21115- 9261 Jan, Anxiety F41.9 and Primary insomnia F51.01 [place] [id number] [place] [address] 92163- 1701 Jan, Type 2 diabetes mellitus with diabetic autonomic (poly) neuropathy E11.43 ; 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 ; Stage 3 chronic kidney disease N18.3 ; Chronic pain syndrome G89.4 ; Swelling of mandible R22.0 and Seizure disorder G40.909 [place] [id number] [place] [address] 42494- 2403 Jan, [place] [id number] [place] [address] 48818- 4111 Jan, [place] [id number]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
--- OUTSIDE RECORDS SUMMARY | 2017-12-04 20:59 | XMS REPORT ---
Author Author ABHINAV FLOYD Organization [facility] Address [address] [place] [address] Care Team Providers Care Photo Lab Technician Name Role Phone ABHINAV FLOYD Unavailable PROBLEMS Type Condition ICD9-CM Code CMF06-UE Code Onset Dates Condition Status SNOMED Code Problem Postural hypotension I95.1 Active 67565050 Problem Seizure disorder G40.909 Active 870622800 Problem Seasonal allergic rhinitis, unspecified allergic rhinitis trigger J30.2 Active 430896504 Problem Closed nondisplaced fracture of second metatarsal bone of left foot, initial encounter S92.325A Active 45574487 Problem Essential hypertension I10 Active 04624323 Problem Multiple neurological symptoms R29.90 Active 603016395 Problem Port catheter in place Z95.828 Active 640125834 Problem Stage 3 chronic kidney disease N18.3 Active 188696202 Problem Gastritis determined by endoscopy K29.70 Active 3141682 Problem Self-inflicted injury Z72.89 Active 159623308 Problem Borderline personality disorder in adult F60.3 Active 70757578 Problem Chronic congestive heart failure, unspecified congestive heart failure type I50.9 Active 70218503 Problem Chronic pain syndrome G89.4 Active 974277262 Problem Primary insomnia F51.01 Active 9470281 Problem Acquired hypothyroidism E03.9 Active 462109888 Problem Gastroparesis K31.84 Active 997200321 Problem Severe episode of recurrent major depressive disorder, without psychotic features F33.2 Active 03705989 Problem Anxiety, generalized F41.1 Active 91483342 Problem FDC current use of insulin Z79.4 Active 382921350 Problem Type 2 diabetes mellitus with diabetic polyneuropathy E11.42 Active 36414523 Problem Tobacco abuse Z72.0 Active 932680249 Problem Noncompliance with diabetes treatment Z91.19 Active 5673057 ALLERGIES No Information ENCOUNTERS Encounter Location Date Diagnosis [facility] [address] [facility] [id number] [address] October, [facility] [address] [address] October, [facility] [address] [address] October, [facility] [address] [id number] Sep, [facility] [id number] [place] [address] 28644- 9981 Sep, [facility] [id number] [place] [address] 33113- 5910 Sep, [facility] [id number] [place] [address] 03818- 7238 Sep, Throat pain R07.0 ; BMI 40.0-44.9, adult Z68.41 and Chronic pain syndrome G89.4 [facility] [id number] [place] [address] 00917- 5927 Sep, [facility] [id number] [place] [address] 24709- 1283 Sep, [facility] [id number] [place] [address] 97623- 9748 Sep, [facility] [id number] [place] [address] 76467- 9525 Sep, Anxiety, generalized F41.1 [facility] [address] [address] Sep, [facility] [address] [address] Sep, Stage 3 chronic kidney disease N18.3 [facility] [address] [address] Sep, Stage 3 chronic kidney disease N18.3 and Chronic pain syndrome G89.4 [facility] [id number] [place] [address] 25910- 7654 Sep, Severe episode of recurrent major depressive disorder, without psychotic features F33.2 ; Anxiety, generalized F41.1 and Borderline personality disorder in adult F60.3 [facility] [id number] [place] [address] 06995- 3655 Sep, Chronic pain syndrome G89.4 ; Anxiety, generalized F41.1 and BMI 45.0-49.9, adult Z68.42 [facility] [id number] [place] [address] 99421- 7044 Sep, [facility] [id number] [place] [address] 70265- 0642 Sep, [facility] [id number] [place] [address] 93268- 8410 Sep, Severe episode of recurrent major depressive disorder, without psychotic features F33.2 ; Anxiety, generalized F41.1 and Borderline personality disorder in adult F60.3 [facility] [id number] [place] [address] 69070- 3631 Sep, [facility] [id number] [place] [address] 95716 -9896 Aug, Dysuria R30.0 ; Type 2 diabetes mellitus with diabetic polyneuropathy E11.42 ; Oral abscess K12.2 and BMI 40.0-44.9, adult Z68.41 [facility] [id number] [place] [address] 66071- 3320 Aug, [facility] [id number] [place] [address] 18475- 7177 Aug, [facility] [id number] [place] [address] 95396- 7600 Aug, [facility] [id number] [place] [address] 66919- 5484 Aug, [facility] [id number] [place] [address] 59659- 5592 Aug, Severe episode of recurrent major depressive disorder, without psychotic features F33.2 ; Anxiety, generalized F41.1 and Borderline personality disorder in adult F60.3 [facility] [address] [address] 6[address] 22 Aug, 2017 [facility] [address] [address] 87[address] 20 Aug, 2017 [facility] [id number] [place] [address] 52780- 3781 19 Aug, 2017 Severe episode of recurrent major depressive disorder, without psychotic features F33.2 ; Anxiety, generalized F41.1 and Borderline personality disorder in adult F60.3 [facility] [id number] [place] [address] 99769 -7065 17 Aug, 2017 [facility] [address] [place] [address] 13903- 5634 15 Aug, 2017 [facility] [phone] [place] [address] 14894- 6943 14 Aug, 2017 [facility] [id number] [place] [address] 17763 -4063 14 Aug, 2017 Dysuria R30.0 ; Dental infection K04.7 ; Acute cystitis with hematuria N30.01 and BMI 45.0-49.9, adult Z68.42 [facility] [id number] [place] [address] 88147- 2548 14 Aug, 2017 Severe episode of recurrent major depressive disorder, without psychotic features F33.2 ; Anxiety, generalized F41.1 and Borderline personality disorder in adult F60.3 [facility] [id number] [place] [address] 08079- 6878 09 Aug, 2017 [place] [id number] [place] [address] 75789- 1027 08 Aug, 2017 Closed nondisplaced fracture of second metatarsal bone of left foot, initial encounter S92.325A and Chronic pain syndrome G89.4 [facility] [address] [address] 0759 08 Aug, 2017 Type 2 diabetes mellitus with diabetic polyneuropathy E11.42 [facility] [address] [address] Aug, Severe episode of recurrent major depressive disorder, without psychotic features F33.2 ; Anxiety, generalized F41.1 and Borderline personality disorder in adult F60.3 [facility] [address] [address] 28[address] Aug, [facility] [id number] [address] Aug, [facility] [address] [address] 1718 Aug, [facility] [address] [address] 2155 Aug, [facility] [address] [address] 1854 Aug, [facility] [address] [address] 8098 Jul, [facility] [address] [address] 2105 Jul, [facility] [id number] [address] Jul, Severe episode of recurrent major depressive disorder, without psychotic features F33.2 ; Anxiety, generalized F41.1 and Borderline personality disorder in adult F60.3 [facility] [id number] [address] 3[address] Jul, Type 2 diabetes mellitus with diabetic polyneuropathy E11.42 [facility] [id number] [address]33 Jul, Closed nondisplaced fracture of second metatarsal bone of left foot, initial encounter S92.325A and Closed nondisplaced fracture of third metatarsal bone of left foot, initial encounter S92.335A [facility] [id number] [place] [address] 53442- 0094 Jul, [facility] [id number] [place] [address] 67445- 3876 20 Jul, 2017 Closed nondisplaced fracture of second metatarsal bone of left foot, initial encounter S92.325A ; Acute left ankle pain M25.572 ; Acute midline low back pain without sciatica M54.5 and Seasonal allergic rhinitis, unspecified allergic rhinitis trigger J30.2 [facility] [id number] [place] [address] 73666- 9843 Jul, [facility] [id number] [place] [address] 80545- 1828 19 Jul, 2017 [place] [id number] [place] [address] 89100- 4167 15 Jul, 2017 [facility] [id number] [place] [address] 35522- 8286 15 Jul, 2017 Frequent falls R29.6 [facility] [id number] [place] [address] 29250- 6134 14 Jul, 2017 Frequent falls R29.6 [facility] [id number] [place] [address] 33873- 8332 07 Jul, 2017 Severe episode of recurrent major depressive disorder, without psychotic features F33.2 ; Anxiety, generalized F41.1 and Borderline personality disorder in adult F60.3 [place] [id number] [place] [address] 37232- 6132 07 Jul, 2017 Chronic pain syndrome G89.4 [facility] [id number] [place] [address] 60371- 8227 07 Jul, 2017 FDC current use of insulin Z79.4 [facility] [id number] [place] [address] 97652- 9783 05 Jul, 2017 [place] [place] [id number] [place] [address] 30606- 8386 Jul, Type 2 diabetes mellitus with diabetic polyneuropathy E11.42 [place] [address] [place] [id number]- 9984 Jun, [facility] current use of insulin Z79.4 and Thrush B37.0 [place] [address] 66288- 5253 Jun, Severe episode of recurrent major depressive disorder, without psychotic features F33.2 ; Anxiety, generalized F41.1 and Borderline personality disorder in adult F60.3 [place] [address] 384408- 2123 Jun, Severe episode of recurrent major depressive disorder, without psychotic features F33.2 ; Anxiety, generalized F41.1 and Borderline personality disorder in adult F60.3 [place] [address] 60723- 9952 Jun, Frequent falls R29.6 ; Bronchitis J40 ; BMI 40.0-44.9, adult Z68.41 and Coccygeal pain, acute M53.3 [place] [address] 72810- 6274 Jun, [facility] [id number] [place] [address] 99330 -4379 Jun, [facility] [address] 18322- 4923 Jun, [place] [address] 55793- 1921 Jun, Dental caries, unspecified K02.9 [place] [address] 97267- 4628 Jun, Acute non-recurrent maxillary sinusitis J01.00 and BMI 40.0- 44.9, adult Z68.41 [place] [address] [place] [address]- 9791 17 Jun, 2017 [facility] [id number] [place] [address] 44327- 9446 Jun, Severe episode of recurrent major depressive disorder, without psychotic features F33.2 ; Anxiety, generalized F41.1 and Borderline personality disorder in adult F60.3 [facility] [id number] [address]- 2547 11 Jun, 2017 Closed nondisplaced fracture of third metatarsal bone of left foot with routine healing, subsequent encounter S92.335D ; Closed nondisplaced fracture of second metatarsal bone of left foot with routine healing, subsequent encounter S92.325D and Closed nondisplaced fracture of fourth metatarsal bone of left foot with routine healing, subsequent encounter S92.345D [facility] [address] [address]- 2196 Jun, Severe episode of recurrent major depressive disorder, without psychotic features F33.2 ; Anxiety, generalized F41.1 and Borderline personality disorder in adult F60.3 [facility] [address] [address]- 8882 Jun, [facility] [id number] [place] [address] 58864- 0917 Jun, [facility] [address] [address]- 3233 Jun, [facility] [id number] [place] [address] 02039- 5920 Jun, [facility] [address] [address]- 5011 Jun, [facility] [id number] [place] [address] 79156- 0036 Jun, Anxiety F41.9 [facility] [address] [address]- 6948 Jun, [facility] [address] [address]- 5472 Jun, [place] [id number] [place] [address] 69991- 2300 Jun, Type 2 diabetes mellitus with diabetic autonomic (poly) neuropathy E11.43 [place] [id number] [place] [address] 16828- 5578 Jun, Severe episode of recurrent major depressive disorder, without psychotic features F33.2 ; Anxiety, generalized F41.1 and Borderline personality disorder in adult F60.3 [place] [id number] [place] [address] 15291- 5482 Jun, Type 2 diabetes mellitus with diabetic autonomic (poly) neuropathy E11.43 and Chronic pain syndrome G89.4 [place] [id number] [place] [address] 01589- 9662 20 May, 2017 Recent urinary tract infection Z87.440 ; Deliberate self- cutting Z72.89 ; Chest discomfort R07.89 ; BMI 40.0-44.9, adult Z68.41 and Worried well Z71.1 [place] [id number] [place] [address] 91078- 0690 19 May, 2017 Severe episode of recurrent major depressive disorder, without psychotic features F33.2 ; Anxiety, generalized F41.1 and Borderline personality disorder in adult F60.3 [place] [id number] [place] [address] 35498- 7198 18 May, 2017 [place] [id number] [place] [address] 35051- 7660 14 May, 2017 [place] [id number] [place] [address] 12092- 9429 May, Type 2 diabetes mellitus with diabetic autonomic (poly) neuropathy E11.43 [place] [id number] [place] [address] 41948- 9396 May, Severe episode of recurrent major depressive disorder, without psychotic features F33.2 ; Anxiety, generalized F41.1 and Borderline personality disorder in adult F60.3 [facility] [id number] [place] [address] 52657- 5744 May, [place] [id number] [place] [address] 91664- 3622 May, Type 2 diabetes mellitus with diabetic autonomic (poly) neuropathy E11.43 ; Multiple neurological symptoms R29.90 ; Dysuria R30.0 ; Tobacco abuse Z72.0 ; Right hip pain M25.551 ; Anxiety F41.9 ; Gastritis determined by endoscopy K29.70 ; Chronic pain syndrome G89.4 ; Acute non- recurrent maxillary sinusitis J01.00 ; Self mutilating behavior Z72.89 and BMI 40.0-44.9, adult Z68.41 [place] [place] [id number] [place] [address] 71248- 9391 May, Severe episode of recurrent major depressive disorder, without psychotic features F33.2 ; Anxiety, generalized F41.1 and Borderline personality disorder in adult F60.3 [place] [id number] [place] [address] 08820- 7556 Apr, [place] [address] 13414- 3105 Apr, [facility] [id number] [place] [address] 61298 -8200 Apr, [facility] [id number] [place] [address] 05351 -2206 Apr, Aspiration pneumonia of right lower lobe, unspecified aspiration pneumonia type J69.0 [place] [id number] [place] [address] 91734- 4860 Apr, Severe episode of recurrent major depressive disorder, without psychotic features F33.2 ; Anxiety, generalized F41.1 and Borderline personality disorder in adult F60.3 [place] [id number] [place] [address] 10317- 1668 Apr, [place] [address] 00886- 8304 Apr, Chronic pain syndrome G89.4 [facility] [id number] [place] [address] 31608- 5494 Apr, Severe episode of recurrent major depressive disorder, without psychotic features F33.2 ; Anxiety, generalized F41.1 and Borderline personality disorder in adult F60.3 [place] [id number] [place] [address] 79580- 4943 16 Apr, 2017 Severe episode of recurrent major depressive disorder, without psychotic features F33.2 ; Anxiety, generalized F41.1 and Borderline personality disorder in adult F60.3 [place] [id number] [place] [address] 71007- 3361 16 Apr, 2017 Closed nondisplaced fracture of third metatarsal bone of left foot with routine healing, subsequent encounter S92.335D ; Closed nondisplaced fracture of fourth metatarsal bone of left foot with routine healing, subsequent encounter S92.345D and Closed nondisplaced fracture of second metatarsal bone of left foot with routine healing, subsequent encounter S92.325D [place] [address] [place] [address] 81002- 0244 Apr, [place] [id number] [place] [address] 08890- 5518 Apr, [place] [id number] [place] [address] 36751- 4548 Apr, [place] [id number] [place] [address] 23348- 2164 Apr, Screening breast examination Z12.31 [place] [id number] [place] [address] 74057- 9857 Apr, [place] [id number] [place] [address] 74233- 1720 Apr, Type 2 diabetes mellitus with diabetic autonomic (poly) neuropathy E11.43 [place] [id number] [place] [address] 22025- 3547 Apr, Severe episode of recurrent major depressive disorder, without psychotic features F33.2 ; Anxiety, generalized F41.1 and Borderline personality disorder in adult F60.3 [facility] [id number] [place] [address] 69195- 5300 Apr, Type 2 diabetes mellitus with diabetic autonomic (poly) neuropathy E11.43 ; Chronic pain syndrome G89.4 and Anxiety F41.9 [facility] [address] 64039 -3515 Apr, BMI 45.0-49.9, adult Z68.42 [facility] [address] 18553 -0864 Apr, Avulsion of toenail, initial encounter S91.209A and Acute non-recurrent maxillary sinusitis J01.00 [place] [address] 39927- 9157 Apr, [facility] [address] 47446- 0411 Mar, [facility] [id number] [place] [address] 32188- 7822 Mar, Severe episode of recurrent major depressive disorder, without psychotic features F33.2 ; Anxiety, generalized F41.1 and Borderline personality disorder in adult F60.3 [facility] [id number] [place] [address] 44878- 3844 Mar, [facility] [address] 51038- 5026 Mar, [facility] [id number] [place] [address] 93171- 7898 Mar, [facility] [address] 71472- 3513 Mar, Seizure disorder G40.909 [facility] [id number] [place] [address] 48060- 8550 Mar, [facility] [id number] [place] [address] 57525- 1384 Mar, [facility] [id number] [place] [address] 33783 -9816 Mar, Left foot pain M79.672 ; Stage 3 chronic kidney disease N18.3 and Closed nondisplaced fracture of second metatarsal bone of left foot, initial encounter S92.325A [facility] [id number] [place] [address] 81315- 7967 Mar, Severe episode of recurrent major depressive disorder, without psychotic features F33.2 and Anxiety, generalized F41.1 [place] [id number] [place] [address] 68378- 2398 Mar, [facility] [id number] [place] [address] 36759- 9014 Mar, Closed nondisplaced fracture of second metatarsal bone of left foot, initial encounter S92.325A and Closed nondisplaced fracture of third metatarsal bone of left foot, initial encounter S92.335A [place] [id number] [place] [address] 57270- 6966 Mar, Seizure disorder G40.909 [facility] [id number] [place] [address] 58445- 3290 Mar, [facility] [id number] [place] [address] 03299- 3791 Mar, [facility] [id number] [place] [address] 84283- 1119 Mar, [place] [id number] [place] [address] 43246- 6813 Mar, [facility] [id number] [place] [address] 04830- 0188 Mar, High risk sexual behavior Z72.51 [place] [id number] [place] [address] 73603- 9357 Mar, Severe episode of recurrent major depressive disorder, without psychotic features F33.2 and Anxiety, generalized F41.1 [place] [id number] [place] [address] 68080- 6554 Mar, Anxiety F41.9 and Type 2 diabetes mellitus with diabetic autonomic (poly)neuropathy E11.43 [place] [id number] [place] [address] 36031- 4374 Mar, Anxiety F41.9 [place] [id number] [place] [address] 90326- 3432 Mar, High risk sexual behavior Z72.51 [place] [id number] [place] [address] 11872- 0070 Mar, Chronic pain syndrome G89.4 [place] [id number] [place] [address] 82417- 4902 Mar, Type 2 diabetes mellitus with diabetic autonomic (poly) neuropathy E11.43 [place] [id number] [place] [address] 08126- 1342 Mar, [place] [id number] [place] [address] 83766- 8993 Mar, Closed nondisplaced fracture of second metatarsal bone of left foot, initial encounter S92.325A ; Chronic pain syndrome G89.4 ; Closed nondisplaced fracture of third metatarsal bone of left foot, initial encounter S92.335A ; Acute left ankle pain M25.572 and Type 2 diabetes mellitus with diabetic autonomic (poly)neuropathy E11.43 [facility] [address] [id number] [place] [address] 16942- 5555 Mar, [facility] [address] [place] [id number] [place] [address] 78935- 2363 Mar, [place] [id number] [place] [address] 65562- 5080 Mar, Severe episode of recurrent major depressive disorder, without psychotic features F33.2 and Anxiety, generalized F41.1 [facility] [id number] [place] [address] 88384- 6855 27 Feb, 2017 [facility] [id number] [place] [address] 20623- 8529 26 Feb, 2017 Renal insufficiency N28.9 [facility] [id number] [place] [address] 21873 2544 Feb, [facility] [id number] [place] [address] 63330- 8702 Feb, Severe episode of recurrent major depressive disorder, without psychotic features F33.2 and Anxiety, generalized F41.1 [facility] [id number] [place] [address] 09971- 2509 25 Feb, 2017 [facility] [id number] [place] [address] 20776- 0171 22 Feb, 2017 [facility] [id number] [place] [address] 31150- 8362 20 Feb, 2017 Renal insufficiency N28.9 [facility] [id number] [place] [address] 20027- 0787 19 Feb, 2017 [facility] [id number] [place] [address] 61284 -6436 18 Feb, 2017 [facility] [id number] [place] [address] 47265- 5088 14 Feb, 2017 [facility] [id number] [place] [address] 93834- 7796 13 Feb, 2017 Severe episode of recurrent major depressive disorder, without psychotic features F33.2 and Anxiety, generalized F41.1 [facility] [id number] [place] [address] 61497- 6951 13 Feb, 2017 Closed nondisplaced fracture of second metatarsal bone of left foot, initial encounter S92.325A ; Chronic pain syndrome G89.4 ; Closed nondisplaced fracture of third metatarsal bone of left foot, initial encounter S92.335A ; Left hip pain M25.552 and Stage 3 chronic kidney disease N18.3 [facility] [address] [address] 7877 Feb, [facility] [address] [facility] [id number] [place] [address] 25960- 3342 Feb, [facility] [id number] [place] [address] 70914- 3333 Feb, Closed nondisplaced fracture of second metatarsal bone of left foot, initial encounter S92.325A and Closed nondisplaced fracture of third metatarsal bone of left foot, initial encounter S92.335A [facility] [id number] [place] [address] 44762- 6763 Feb, [facility] [id number] [place] [address] 39794- 7223 Feb, Anxiety F41.9 [facility] [id number] [place] [address] 04585- 9461 Feb, [facility] [id number] [place] [address] 40420- 5058 Feb, Chronic pain syndrome G89.4 [facility] [id number] [place] [address] 08126- 9911 Feb, Left foot pain M79.672 ; Closed nondisplaced fracture of second metatarsal bone of left foot, initial encounter S92.325A ; Closed nondisplaced fracture of third metatarsal bone of left foot, initial encounter S92.335A and Oral infection K12.2 [facility] [address] [address] 8715 Feb, [facility] [id number] [place] [address] 94333- 7239 Jan, [facility] [address] [address] 3618 Jan, Type 2 diabetes mellitus with diabetic autonomic (poly) neuropathy E11.43 and Congestive heart failure, unspecified congestive heart failure chronicity, unspecified congestive heart failure type I50.9 [facility] [address] [id number] [place] [address] 37230- 5201 Jan, Congestive heart failure, unspecified congestive heart failure chronicity, unspecified congestive heart failure type I50.9 and Stage 3 chronic kidney disease N18.3 [facility] [id number] [place] [address] 29670- 0781 Jan, Stage 3 chronic kidney disease N18.3 ; Edema of both legs R60.0 ; Chronic congestive heart failure, unspecified congestive heart failure type I50.9 ; Acute low back pain without sciatica, unspecified back pain laterality M54.5 ; Chronic nausea R11.0 and Primary insomnia F51.01 [facility] [id number] [place] [address] 15731- 7637 Jan, Severe episode of recurrent major depressive disorder, without psychotic features F33.2 and Anxiety, generalized F41.1 [facility] [address] [id number] [place] [address] 54728- 8055 Jan, [facility] [address] 25225- 4621 Jan, [facility] [address] [id number] [place] [address] 65098- 7531 Jan, [facility] [id number] [place] [address] 46431- 8755 Jan, [facility] [id number] [place] [address] 85053- 3410 Jan, Anxiety F41.9 and Severe episode of recurrent major depressive disorder, without psychotic features F33.2 [facility] [id number] [place] [address] 66622- 3772 Jan, Type 2 diabetes mellitus with diabetic autonomic (poly) neuropathy E11.43 [facility] [address] [id number] [place] [address] 45034- 9034 Jan, Severe episode of recurrent major depressive disorder, without psychotic features F33.2 and Type 2 diabetes mellitus with diabetic autonomic (poly)neuropathy E11.43 [facility] [address] 51677- 8372 Jan, [facility] [address] 62910- 0339 Jan, [place] [facility] [address] 38323- 7005 Jan, Stage 3 chronic kidney disease N18.3 ; Seizure disorder G40.909 ; Edema of both legs R60.0 and Blister (nonthermal), right foot, initial encounter S90.821A [facility] [address] 99100- 7673 Jan, Severe episode of recurrent major depressive disorder, without psychotic features F33.2 and Anxiety, generalized F41.1 [facility] [address] 26557- 5504 Jan, Severe episode of recurrent major depressive disorder, without psychotic features F33.2 and Anxiety, generalized F41.1 [facility] [address] 98795- 0089 Jan, [facility] [address] 96499- 0688 Jan, Anxiety F41.9 and Primary insomnia F51.01 [facility] [id number] [place] [address] 92810- 4845 Jan, Type 2 diabetes mellitus with diabetic autonomic (poly) neuropathy E11.43 ; [facility]DC current use of insulin Z79.4 ; Stage 3 chronic kidney disease N18.3 ; Chronic pain syndrome G89.4 ; Swelling of mandible R22.0 and Seizure disorder G40.909 [facility] [id number] [place] [address] 18474- 8137 Jan, [facility] [address] 79732- 6702 Jan, [facility] [id number] [place] [address] 40923- 1515 Dec, Severe episode of recurrent major depressive disorder, without psychotic features F33.2 and Anxiety, generalized F41.1 [facility] [id number] [place] [address] 69140- 9518 Dec, Diarrhea, unspecified type R19.7 ; Gastritis determined by endoscopy K29.70 ; Dysuria R30.0 ; Unspecified abdominal pain R10.9 ; Unspecified fall W19.XXXA and Need for assistance with personal care Z74.1 [facility] [address] 80252- 7353 Dec, Severe episode of recurrent major depressive disorder, without psychotic features F33.2 and Anxiety, generalized F41.1 [facility] [address] 10758- 8430 Dec, Diarrhea, unspecified type R19.7 ; Dysuria R30.0 ; Unspecified abdominal pain R10.9 ; Gastritis determined by endoscopy K29.70 ; Unspecified fall W19.XXXA and Need for assistance with personal care Z74.1 [facility] [id number] [place] [address] 11160- 8710 Dec, [facility] [id number] [place]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
[2017-12-04] MEDS ORDERED: KETOROLAC 30 MG/ML VIAL IVP ONE (21:00)
[2017-12-04] MEDS ORDERED: inSUlin (REGULAR) HUMAN 1 UNIT/0.01 ML (CHARGE PER UNIT) IV ONE (21:00)
--- OUTSIDE RECORDS SUMMARY | 2017-12-04 21:00 | XMS REPORT ---
Author Author MIRZA MARTINO Organization [facility] Address [address] [place] [address] Care Team Providers Care Metal Moulder Name Role Phone SALENA MIRZA Unavailable PROBLEMS Type Condition ICD9-CM Code SPN92-VA Code Onset Dates Condition Status SNOMED Code Problem Seasonal allergic rhinitis, unspecified allergic rhinitis trigger J30.2 Active 626906162 Problem Self-inflicted injury Z72.89 Active 294369833 Problem Seizure disorder G40.909 Active 991367546 Problem Postconcussion syndrome F07.81 Active 42008772 Problem Acquired hypothyroidism E03.9 Active 750585948 Problem Closed nondisplaced fracture of second metatarsal bone of left foot, initial encounter S92.325A Active 45882738 Problem Essential hypertension I10 Active 60481323 Problem Port catheter in place Z95.828 Active 382327115 Problem Chronic congestive heart failure, unspecified congestive heart failure type I50.9 Active 86638263 Problem Gastritis determined by endoscopy K29.70 Active 2227077 Problem Multiple neurological symptoms R29.90 Active 467451802 Problem Borderline personality disorder in adult F60.3 Active 52573180 Problem Primary insomnia F51.01 Active 9514926 Problem 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 Active 075990388 Problem Gastroparesis K31.84 Active 982422267 Problem Chronic pain syndrome G89.4 Active 347675027 Problem Anxiety, generalized F41.1 Active 25182786 Problem Type 2 diabetes mellitus with diabetic polyneuropathy E11.42 Active 37296863 Problem Tobacco abuse Z72.0 Active 169586648 Problem Noncompliance with diabetes treatment Z91.19 Active 2183523 Problem Stage 3 chronic kidney disease N18.3 Active 783731729 Problem Severe episode of recurrent major depressive disorder, without psychotic features F33.2 Active 35617048 Problem Postural hypotension I95.1 Active 73526051 ALLERGIES No Information ENCOUNTERS Encounter Location Date Diagnosis [facility] [address], [place] [address] October, [facility] [id number] [place] [address] 35754- 3261 October, [facility] [id number] [place] [address] 97017- 9922 October, [facility] [id number] [place] [address] 29644- 2092 October, [facility] [id number] [place] [address] 98344- 5010 Sep, [facility] [id number] [place] [address] 31138 -2140 Sep, [facility] [id number] [place] [address] 63519 -9808 Sep, Neck pain M54.2 ; Strain of lumbar region, initial encounter S39.012A and Postconcussion syndrome F07.81 [facility] [id number] [place] [address] 88463- 8060 Sep, [facility] [id number] [place] [address] 93894- 3093 Sep, Severe episode of recurrent major depressive disorder, without psychotic features F33.2 ; Anxiety, generalized F41.1 and Borderline personality disorder in adult F60.3 [facility] [id number] [place] [address] 55851- 8472 Sep, [facility] [id number] [place] [address] 68135- 2625 Sep, Throat pain R07.0 ; BMI 40.0-44.9, adult Z68.41 and Chronic pain syndrome G89.4 [facility] [address] [place] [address] 70758- 7998 Sep, [facility] [id number] [place] [address] 99623- 3055 Sep, [facility] [address], [place] [address] 6[address] Sep, [facility] [address] [place] [address] 91842- 3585 Sep, Anxiety, generalized F41.1 [facility] [address], [place] [address] 2068 Sep, [facility] [id number] [place] [address] 23939- 3079 Sep, Stage 3 chronic kidney disease N18.3 [facility] [id number] [place] [address] 48284- 0584 Sep, Stage 3 chronic kidney disease N18.3 and Chronic pain syndrome G89.4 [facility] [address] [place] [address] 65663- 4656 Sep, Severe episode of recurrent major depressive disorder, without psychotic features F33.2 ; Anxiety, generalized F41.1 and Borderline personality disorder in adult F60.3 [facility] [address] [place] [address] 50371- 0760 Sep, Chronic pain syndrome G89.4 ; Anxiety, generalized F41.1 and BMI 45.0-49.9, adult Z68.42 [facility] [address] [address] 5526 Sep, [facility] [address] [place] [address] 42701- 7136 Sep, [facility] [address] [place] [address] 65937- 9296 Sep, Severe episode of recurrent major depressive disorder, without psychotic features F33.2 ; Anxiety, generalized F41.1 and Borderline personality disorder in adult F60.3 [facility] [address] [address] 7591 Sep, [facility] [id number] [place] [address] 45909 -0284 2017 Dysuria R30.0 ; Type 2 diabetes mellitus with diabetic polyneuropathy E11.42 ; Oral abscess K12.2 and BMI 40.0-44.9, adult Z68.41 [facility] [id number] [place] [address] 31207- 9020 30 Aug, 2017 [facility] [id number] [place] [address] 27290- 7518 Aug, [facility] [id number] [place] [address] 47252- 7834 Aug, [facility] [id number] [place] [address] 63504- 0336 Aug, [facility] [id number] [place] [address] 66903- 9034 Aug, Severe episode of recurrent major depressive disorder, without psychotic features F33.2 ; Anxiety, generalized F41.1 and Borderline personality disorder in adult F60.3 [facility] [id number] [place] [address] 54913- 7051 22 Aug, 2017 [facility] [id number] [place] [address] 61620- 9274 20 Aug, 2017 [facility] [address] [place] [address] 80267- 0942 Aug, Severe episode of recurrent major depressive disorder, without psychotic features F33.2 ; Anxiety, generalized F41.1 and Borderline personality disorder in adult F60.3 [facility] [address] [address] 17 Aug, 2017 [facility] [id number] [place] [address] 24532- 6381 15 Aug, 2017 [facility] [id number] [place] [address] 41918- 2885 14 Aug, 2017 [facility] [id number] [place] [address] 73512 -6997 Aug, Dysuria R30.0 ; Dental infection K04.7 ; Acute cystitis with hematuria N30.01 and BMI 45.0-49.9, adult Z68.42 [facility] [id number] [place] [address] 18599- 8878 14 Aug, 2017 Severe episode of recurrent major depressive disorder, without psychotic features F33.2 ; Anxiety, generalized F41.1 and Borderline personality disorder in adult F60.3 [facility] [id number] [place] [address] 16279- 0830 Aug, [facility] [id number] [place] [address] 33250- 5392 Aug, Closed nondisplaced fracture of second metatarsal bone of left foot, initial encounter S92.325A and Chronic pain syndrome G89.4 [facility] [id number] [place] [address] 94659- 9232 Aug, Type 2 diabetes mellitus with diabetic polyneuropathy E11.42 [facility] [id number] [place] [address] 36235- 2186 08 Aug, 2017 Severe episode of recurrent major depressive disorder, without psychotic features F33.2 ; Anxiety, generalized F41.1 and Borderline personality disorder in adult F60.3 [facility] [address] [place] [address] 52555- 2736 Aug, [facility] [id number] [place] [address] 86311- 9965 Aug, [facility] [id number] [place] [address] 40286- 8565 Aug, [facility] [id number] [place] [address] 25545- 8045 Aug, [facility] [id number] [place] [address] 74935- 2035 Aug, [facility] [id number] [place] [address] 61028- 6433 Jul, [facility] [id number] [place] [address] 64141- 7636 Jul, [facility] [id number] [place] [address] 65047- 4137 Jul, Severe episode of recurrent major depressive disorder, without psychotic features F33.2 ; Anxiety, generalized F41.1 and Borderline personality disorder in adult F60.3 [facility] [id number] [place] [address] 79589- 7900 Jul, Type 2 diabetes mellitus with diabetic polyneuropathy E11.42 [facility] [address] 53486- 0607 Jul, Closed nondisplaced fracture of second metatarsal bone of left foot, initial encounter S92.325A and Closed nondisplaced fracture of third metatarsal bone of left foot, initial encounter S92.335A [facility] [id number] [place] [address] 68089- 9985 Jul, [facility] [id number] [place] [address] 59705- 1450 Jul, Closed nondisplaced fracture of second metatarsal bone of left foot, initial encounter S92.325A ; Acute left ankle pain M25.572 ; Acute midline low back pain without sciatica M54.5 and Seasonal allergic rhinitis, unspecified allergic rhinitis trigger J30.2 [facility] [id number] [place] [address] 30335- 7924 Jul, [facility] [id number] [place] [address] 22208- 4322 Jul, [facility] [id number] [place] [address] 58977- 9734 Jul, [facility] [id number] [place] [address] 63046- 0932 Jul, Frequent falls R29.6 [facility] [address] [place] [address] 78085- 1512 14 Jul, 2017 Frequent falls R29.6 [facility] [address] 07311- 0284 07 Jul, 2017 Severe episode of recurrent major depressive disorder, without psychotic features F33.2 ; Anxiety, generalized F41.1 and Borderline personality disorder in adult F60.3 [facility] [id number] [place] [address] 66637- 8734 07 Jul, 2017 Chronic pain syndrome G89.4 [facility] [id number] [place] [address] 26125- 2023 07 Jul, 2017 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 [facility] [id number] [place] [address] 99714- 9075 05 Jul, 2017 [facility] [address] 78649- 6243 Jul, Type 2 diabetes mellitus with diabetic polyneuropathy E11.42 [facility] [id number] [place] [address] 45872- 6470 Jun, senior living current use of insulin Z79.4 and Thrush B37.0 [facility] [id number] [place] [address] 02323- 7313 Jun, Severe episode of recurrent major depressive disorder, without psychotic features F33.2 ; Anxiety, generalized F41.1 and Borderline personality disorder in adult F60.3 [facility] [id number] [place] [address] 98796- 8454 Jun, Severe episode of recurrent major depressive disorder, without psychotic features F33.2 ; Anxiety, generalized F41.1 and Borderline personality disorder in adult F60.3 [facility] [address] [place] [address] 20537- 3976 Jun, Frequent falls R29.6 ; Bronchitis J40 ; BMI 40.0-44.9, adult Z68.41 and Coccygeal pain, acute M53.3 [facility] [address] [address]- 6645 Jun, [facility] [id number] [place] [address] 98463 -5035 Jun, [facility] [id number] [place] [address] 98474- 7547 Jun, [facility] [id number] [place] [address] 84299- 5482 Jun, Dental caries, unspecified K02.9 [facility] [id number] [place] [address] 95552- 2809 Jun, Acute non-recurrent maxillary sinusitis J01.00 and BMI 40.0- 44.9, adult Z68.41 [facility] [id number] [place] [address] 79258- 4372 Jun, [facility] [id number] [place] [address] 53515- 6751 Jun, Severe episode of recurrent major depressive disorder, without psychotic features F33.2 ; Anxiety, generalized F41.1 and Borderline personality disorder in adult F60.3 [facility] [address] [place] [address] 88094- 9191 11 Jun, 2017 Closed nondisplaced fracture of third metatarsal bone of left foot with routine healing, subsequent encounter S92.335D ; Closed nondisplaced fracture of second metatarsal bone of left foot with routine healing, subsequent encounter S92.325D and Closed nondisplaced fracture of fourth metatarsal bone of left foot with routine healing, subsequent encounter S92.345D [facility] [address] [place] [address] 60513- 6057 Jun, Severe episode of recurrent major depressive disorder, without psychotic features F33.2 ; Anxiety, generalized F41.1 and Borderline personality disorder in adult F60.3 [facility] [address] [place] [address] 92829- 9611 Jun, [facility] [address] [place] [address] 32948- 4370 Jun, [facility] [id number] [place] [address] 87909- 9790 Jun, [facility] [id number] [place] [address] 16649- 3123 Jun, [facility] [id number] [place] [address] 45869- 9953 Jun, [facility] [address] [place] [address] 81061- 6113 Jun, Anxiety F41.9 [facility] [address] [place] [address] 76307- 5667 Jun, [facility] [address] [place] [address] 97408- 4497 Jun, [facility] [address] [place] [address] 65234- 0642 Jun, Type 2 diabetes mellitus with diabetic autonomic (poly) neuropathy E11.43 [facility] [address] [place] [address] 55155- 2743 Jun, Severe episode of recurrent major depressive disorder, without psychotic features F33.2 ; Anxiety, generalized F41.1 and Borderline personality disorder in adult F60.3 [facility] [address] [place] [address] 60009- 9296 Jun, Type 2 diabetes mellitus with diabetic autonomic (poly) neuropathy E11.43 and Chronic pain syndrome G89.4 [facility] [address] [place] [address] 01616- 6794 May, 2017 Recent urinary tract infection Z87.440 ; Deliberate self- cutting Z72.89 ; Chest discomfort R07.89 ; BMI 40.0-44.9, adult Z68.41 and Worried well Z71.1 [facility] [address] [place] [address] 35213- 8746 May, Severe episode of recurrent major depressive disorder, without psychotic features F33.2 ; Anxiety, generalized F41.1 and Borderline personality disorder in adult F60.3 [facility] [address] [place] [address] 55047- 0150 May, [facility] [id number] [place] [address] 87587- 8378 May, [facility] [id number] [place] [address] 93579- 9752 May, Type 2 diabetes mellitus with diabetic autonomic (poly) neuropathy E11.43 [facility] [address] [place] [address] 12604- 4870 May, Severe episode of recurrent major depressive disorder, without psychotic features F33.2 ; Anxiety, generalized F41.1 and Borderline personality disorder in adult F60.3 [facility] [address] [place] [address] 12669- 1342 May, [facility] [address] [place] [address] 90207- 4734 May, Type 2 diabetes mellitus with diabetic autonomic (poly) neuropathy E11.43 ; Multiple neurological symptoms R29.90 ; Dysuria R30.0 ; Tobacco abuse Z72.0 ; Right hip pain M25.551 ; Anxiety F41.9 ; Gastritis determined by endoscopy K29.70 ; Chronic pain syndrome G89.4 ; Acute non- recurrent maxillary sinusitis J01.00 ; Self mutilating behavior Z72.89 and BMI 40.0-44.9, adult Z68.41 [facility] [address] [place] [address] 75736- 3825 May, Severe episode of recurrent major depressive disorder, without psychotic features F33.2 ; Anxiety, generalized F41.1 and Borderline personality disorder in adult F60.3 [facility] [address] [place] [address] 46289- 6805 Apr, [address] [place] [address]- 9255 Apr, [facility] [address] [place] [address] 05046 -3902 Apr, [facility] [id number] [place] [address] 31220 -0796 Apr, Aspiration pneumonia of right lower lobe, unspecified aspiration pneumonia type J69.0 [facility] [address] [place] [address] 37393- 1431 Apr, Severe episode of recurrent major depressive disorder, without psychotic features F33.2 ; Anxiety, generalized F41.1 and Borderline personality disorder in adult F60.3 [facility] [address] [place] [address] 82596- 8855 Apr, [facility] [address] [place] [address] 73208- 5252 Apr, Chronic pain syndrome G89.4 [facility] [address] [place] [address] 16876- 1284 Apr, Severe episode of recurrent major depressive disorder, without psychotic features F33.2 ; Anxiety, generalized F41.1 and Borderline personality disorder in adult F60.3 [facility] [address] [place] [address] 72101- 6146 Apr, Severe episode of recurrent major depressive disorder, without psychotic features F33.2 ; Anxiety, generalized F41.1 and Borderline personality disorder in adult F60.3 [facility] [address] [place] [address] 53343- 6956 Apr, Closed nondisplaced fracture of third metatarsal bone of left foot with routine healing, subsequent encounter S92.335D ; Closed nondisplaced fracture of fourth metatarsal bone of left foot with routine healing, subsequent encounter S92.345D and Closed nondisplaced fracture of second metatarsal bone of left foot with routine healing, subsequent encounter S92.325D [facility] [address] [place] [address] 34217- 9975 16 Apr, 2017 [facility] [id number] [place] [address] 26995- 6167 15 Apr, 2017 [facility] [address] 11508- 0868 14 Apr, 2017 [facility] [address] 21829- 8831 13 Apr, 2017 Screening breast examination Z12.31 [facility] [address] 39948- 4421 09 Apr, 2017 [facility] [address] 15115- 9269 07 Apr, 2017 Type 2 diabetes mellitus with diabetic autonomic (poly) neuropathy E11.[address] 26550- 1076 07 Apr, 2017 Severe episode of recurrent major depressive disorder, without psychotic features F33.2 ; Anxiety, generalized F41.1 and Borderline personality disorder in adult F60.[address] 50280- 6195 Apr, Type 2 diabetes mellitus with diabetic autonomic (poly) neuropathy E11.43 ; Chronic pain syndrome G89.4 and Anxiety F41.9 [facility] [address] [place] [address] 56460 -7031 Apr, BMI 45.0-49.9, adult Z68.42 [facility] [address] [place] [address] 54499 -6544 Apr, Avulsion of toenail, initial encounter S91.209A and Acute non-recurrent maxillary sinusitis J01.[address] 28147- 7450 Apr, [facility] [id number] [place] [address] 20178- 4637 Mar, [facility] [address] 67042- 9424 Mar, Severe episode of recurrent major depressive disorder, without psychotic features F33.2 ; Anxiety, generalized F41.1 and Borderline personality disorder in adult F60.3 [facility] [address] [address]- 4661 Mar, [facility] [address] [address]- 7023 Mar, [facility] [id number] [place] [address] 91805- 7951 Mar, [facility] [id number] [place] [address] 67166- 1699 Mar, Seizure disorder G40.909 [facility] [id number] [place] [address] 22025- 1711 Mar, [facility] [id number] [place] [address] 87066- 9746 Mar, [facility] [address] [place] [address] 64485 -9792 Mar, Left foot pain M79.672 ; Stage 3 chronic kidney disease N18.3 and Closed nondisplaced fracture of second metatarsal bone of left foot, initial encounter S92.325A [facility] [address] [place] [address] 26044- 1694 Mar, Severe episode of recurrent major depressive disorder, without psychotic features F33.2 and Anxiety, generalized F41.1 [facility] [address] [place] [address] 19841- 2688 Mar, [facility] [id number] [place] [address] 81444- 7982 Mar, Closed nondisplaced fracture of second metatarsal bone of left foot, initial encounter S92.325A and Closed nondisplaced fracture of third metatarsal bone of left foot, initial encounter S92.335A [facility] [id number] [place] [address] 97768- 9576 Mar, Seizure disorder G40.909 [facility] [id number] [place] [address] 41375- 1620 Mar, [facility] [id number] [place] [address] 47792- 4579 Mar, [facility] [id number] [place] [address] 14751- 7810 Mar, [facility] [id number] [place] [address] 57303- 1975 Mar, [facility] [id number] [place] [address] 77729- 6058 Mar, High risk sexual behavior Z72.51 [facility] [id number] [place] [address] 34390- 5656 Mar, Severe episode of recurrent major depressive disorder, without psychotic features F33.2 and Anxiety, generalized F41.1 [facility] [id number] [place] [address] 10929- 0627 Mar, Anxiety F41.9 and Type 2 diabetes mellitus with diabetic autonomic (poly)neuropathy E11.43 [facility] [id number] [place] [address] 68043- 2774 Mar, Anxiety F41.9 [facility] [id number] [place] [address] 64420- 8927 Mar, High risk sexual behavior Z72.51 [facility] [id number] [place] [address] 61343- 9183 Mar, Chronic pain syndrome G89.4 [facility] [id number] [place] [address] 75971- 8617 Mar, Type 2 diabetes mellitus with diabetic autonomic (poly) neuropathy E11.43 [facility] [id number] [place] [address] 86429- 2522 Mar, [facility] [id number] [place] [address] 97298- 7790 Mar, Closed nondisplaced fracture of second metatarsal bone of left foot, initial encounter S92.325A ; Chronic pain syndrome G89.4 ; Closed nondisplaced fracture of third metatarsal bone of left foot, initial encounter S92.335A ; Acute left ankle pain M25.572 and Type 2 diabetes mellitus with diabetic autonomic (poly)neuropathy E11.43 [facility] [id number] [place] [address] 04729- 6512 Mar, [facility] [address] 14738- 3862 Mar, [facility] [id number] [place] [address] 35084- 0996 Mar, Severe episode of recurrent major depressive disorder, without psychotic features F33.2 and Anxiety, generalized F41.1 [facility] [id number] [place] [address] 14532- 7024 Feb, [facility] [id number] [place] [address] 33705- 4856 Feb, Renal insufficiency N28.9 [facility] [id number] [place] [address] 03495- 1040 Feb, [facility] [id number] [place] [address] 67942- 4693 Feb, Severe episode of recurrent major depressive disorder, without psychotic features F33.2 and Anxiety, generalized F41.1 [facility] [id number] [place] [address] 26912- 6058 Feb, [facility] [id number] [place] [address] 61200- 3933 Feb, [facility] [id number] [place] [address] 96771- 0027 Feb, Renal insufficiency N28.9 [facility] [id number] [place] [address] 14665- 3878 19 Feb, 2017 [facility] [address] [facility] [id number] [address] 18 Feb, 2017 [facility] [address] [place] [address] 90456- 3662 14 Feb, 2017 [facility] [address] [place] [address] 44802- 8680 13 Feb, 2017 Severe episode of recurrent major depressive disorder, without psychotic features F33.2 and Anxiety, generalized F41.1 [facility] [id number] [place] [address] 30107- 9559 13 Feb, 2017 Closed nondisplaced fracture of second metatarsal bone of left foot, initial encounter S92.325A ; Chronic pain syndrome G89.4 ; Closed nondisplaced fracture of third metatarsal bone of left foot, initial encounter S92.335A ; Left hip pain M25.552 and Stage 3 chronic kidney disease N18.3 [facility] [address] [address] 4564 07 Feb, 2017 [facility] [address] [place] [address] 48218- 0377 Feb, [facility] [address] [place] [address] 49508- 9242 Feb, Closed nondisplaced fracture of second metatarsal bone of left foot, initial encounter S92.325A and Closed nondisplaced fracture of third metatarsal bone of left foot, initial encounter S92.335A [facility] [address] [id number] [address] 8327 Feb, [facility] [id number] [place] [address] 00666- 8060 Feb, Anxiety F41.9 [facility] [address] [place] [address] 24838- 6763 06 Feb, 2017 [facility] [address] [place] [address] 22322- 5767 Feb, Chronic pain syndrome G89.4 [facility] [address] [place] [address] 18164- 6397 Feb, Left foot pain M79.672 ; Closed nondisplaced fracture of second metatarsal bone of left foot, initial encounter S92.325A ; Closed nondisplaced fracture of third metatarsal bone of left foot, initial encounter S92.335A and Oral infection K12.2 [facility] [id number] [place] [address] 74578- 9305 Feb, [facility] [id number] [place] [address] 71799- 8358 Jan, [facility] [id number] [place] [address] 00051- 1477 Jan, Type 2 diabetes mellitus with diabetic autonomic (poly) neuropathy E11.43 and Congestive heart failure, unspecified congestive heart failure chronicity, unspecified congestive heart failure type I50.9 [facility] [id number] [place] [address] 81802- 9467 Jan, Congestive heart failure, unspecified congestive heart failure chronicity, unspecified congestive heart failure type I50.9 and Stage 3 chronic kidney disease N18.3 [facility] [address] [place] [address] 03912- 3233 Jan, Stage 3 chronic kidney disease N18.3 ; Edema of both legs R60.0 ; Chronic congestive heart failure, unspecified congestive heart failure type I50.9 ; Acute low back pain without sciatica, unspecified back pain laterality M54.5 ; Chronic nausea R11.0 and Primary insomnia F51.01 [facility] [id number] [place] [address] 09327- 8766 Jan, Severe episode of recurrent major depressive disorder, without psychotic features F33.2 and Anxiety, generalized F41.1 [facility] [id number] [place] [address] 96695- 2768 Jan, [facility] [address] [address]- 3652 Jan, [facility] [id number] [place] [address] 56005- 5868 Jan, [facility] [address] [place] [address] 30153- 4402 Jan, [facility] [id number] [place] [address] 37675- 3385 Jan, Anxiety F41.9 and Severe episode of recurrent major depressive disorder, without psychotic features F33.2 [facility] [address] [place] [address] 96238- 5303 Jan, Type 2 diabetes mellitus with diabetic autonomic (poly) neuropathy E11.43 [facility] [address] [place] [address] 82867- 6333 Jan, Severe episode of recurrent major depressive disorder, without psychotic features F33.2 and Type 2 diabetes mellitus with diabetic autonomic (poly)neuropathy E11.43 [facility] [address] [place] [address] 28894- 3121 Jan, [facility] [id number] [place] [address] 23260- 1870 Jan, [facility] [address] [place] [address] 62417- 7573 Jan, Stage 3 chronic kidney disease N18.3 ; Seizure disorder G40.909 ; Edema of both legs R60.0 and Blister (nonthermal), right foot, initial encounter S90.821A [facility] [address] [place] [address] 03883- 7817 Jan, Severe episode of recurrent major depressive disorder, without psychotic features F33.2 and Anxiety, generalized F41.1 [facility] [address] [address]- 0629 Jan, Severe episode of recurrent major depressive disorder, without psychotic features F33.2 and Anxiety, generalized F41.1 [facility] [address] [place] [address] 68462- 6172 09 Jan, 2017 [facility] [address] 76869- 9501 Jan, Anxiety F41.9 and Primary insomnia F51.[address] 49167- 8358 Jan, Type 2 diabetes mellitus with diabetic autonomic (poly) neuropathy E11.43 ; 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 ; Stage 3 chronic kidney disease N18.3 ; Chronic pain syndrome G89.4 ; Swelling of mandible R22.0 and Seizure disorder G40.[address] 53819- 3875 Jan, [facility] [address] 13586-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
--- OUTSIDE RECORDS SUMMARY | 2017-12-04 21:03 | XMS REPORT ---
Author Author ABHINAV FLOYD [facility] Address [address] [place] [address] Care Team Providers Care Scrum Coach Name Role Phone ABHINAV FLOYD Unavailable PROBLEMS Type Condition ICD9-CM Code MXN31-PE Code Onset Dates Condition Status SNOMED Code Problem Stage 3 chronic kidney disease N18.3 Active 083001446 Problem Dental caries, unspecified K02.9 Active 69311737 Problem Port catheter in place Z95.828 Active 856613118 Problem Epigastric pain R10.13 Active 56450440 Problem Gastroparesis K31.84 Active 504109110 Problem Essential hypertension I10 Active 89095275 Problem Seizure disorder G40.909 Active 647000643 Problem Acquired hypothyroidism E03.9 Active 373773195 Problem Chronic superficial gastritis without bleeding K29.30 Active 116418818 Problem Anxiety F41.9 Active 98111039 Problem Self-inflicted injury Z72.89 Active 356477148 Problem Chronic congestive heart failure, unspecified congestive heart failure type I50.9 Active 48385444 Problem Gastritis determined by endoscopy K29.70 Active 1040676 Problem Acute left ankle pain M25.572 Active 85966640636538 Problem Acute midline low back pain without sciatica M54.5 Active 335818649 Problem 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 designer current use of insulin Z79.4 Active 388625959 Problem Primary insomnia F51.01 Active 0457374 Problem Chronic pain syndrome G89.4 Active 284041746 Problem Multiple neurological symptoms R29.90 Active 513561435 Problem Borderline personality disorder in adult F60.3 Active 51493594 Problem Closed nondisplaced fracture of second metatarsal bone of left foot, initial encounter S92.325A Active 56606116 Problem Frequent falls R29.6 Active 283832423 Problem Anxiety, generalized F41.1 Active 86631498 Problem Vaginal bleeding N93.9 Active 536277054 Problem Tobacco abuse Z72.0 Active 951348592 Problem Severe episode of recurrent major depressive disorder, without psychotic features F33.2 Active 00296518 Problem Postural hypotension I95.1 Active 29370547 Problem Seasonal allergic rhinitis, unspecified allergic rhinitis trigger J30.2 Active 888613275 Problem Type 2 diabetes mellitus with diabetic polyneuropathy E11.42 Active 06839630 Problem Noncompliance with diabetes treatment Z91.19 Active 5865126 ALLERGIES No Information ENCOUNTERS Encounter Location Date Diagnosis [facility] [id number] [place] [address] 62984- 3945 October, [facility] [id number] [place] [address] [id number] Sep, [facility] [address] 51539- 5479 Sep, [facility] [id number] [place] [address] 70833- 3242 Sep, [facility] [id number] [place] [address] 08403- 0787 Sep, [facility] [id number] [place] [address] 22682- 0133 Sep, [facility] [id number] [place] [address] 86291- 0910 Sep, [facility] [id number] [place] [address] 48820 -8257 Aug, Dysuria R30.0 ; Type 2 diabetes mellitus with diabetic polyneuropathy E11.42 ; Oral abscess K12.2 and BMI 40.0-44.9, adult Z68.41 [facility] [id number] [place] [address] 01040- 3523 Aug, [facility] [id number] [place] [address] 40960- 5277 Aug, [facility] [id number] [place] [address] 91885- 4765 Aug, [facility] [id number] [place] [address] 80205- 5594 Aug, [facility] [address] [address] 27 Aug, 2017 Severe episode of recurrent major depressive disorder, without psychotic features F33.2 ; Anxiety, generalized F41.1 and Borderline personality disorder in adult F60.3 [facility] [address] [address] 7[address] 22 Aug, 2017 [facility] [id number] [place] [address] 91991- 3587 20 Aug, 2017 [facility] [id number] [place] [address] 40163- 1768 19 Aug, 2017 Severe episode of recurrent major depressive disorder, without psychotic features F33.2 ; Anxiety, generalized F41.1 and Borderline personality disorder in adult F60.3 [facility]ALK IN [facility] [id number] [address] 17 Aug, 2017 [facility] [id number] [place] [address] 95417- 4517 15 Aug, 2017 [facility] [id number] [place] [address] 83416- 1627 14 Aug, 2017 [facility] IN [facility] [id number] [address] 14 Aug, 2017 Dysuria R30.0 ; Dental infection K04.7 ; Acute cystitis with hematuria N30.01 and BMI 45.0-49.9, adult Z68.42 [facility] [address] [address] 45[address] 14 Aug, 2017 Severe episode of recurrent major depressive disorder, without psychotic features F33.2 ; Anxiety, generalized F41.1 and Borderline personality disorder in adult F60.3 [facility] [address] [place] [address] 86693- 6087 09 Aug, 2017 [facility] [id number] [address] 9909 08 Aug, 2017 Closed nondisplaced fracture of second metatarsal bone of left foot, initial encounter S92.325A and Chronic pain syndrome G89.4 [facility] [id number] [place] [address] 49582- 1475 08 Aug, 2017 Type 2 diabetes mellitus with diabetic polyneuropathy E11.42 [facility] [id number] [place] [address] 68788- 3332 Aug, Severe episode of recurrent major depressive disorder, without psychotic features F33.2 ; Anxiety, generalized F41.1 and Borderline personality disorder in adult F60.3 [facility] [id number] [place] [address] 89622- 9299 Aug, [facility] [id number] [place] [address] 42477- 1714 Aug, [facility] [id number] [place] [address] 71176- 1311 Aug, [facility] [id number] [place] [address] 13084- 0537 Aug, [facility] [id number] [place] [address] 52121- 9730 Aug, [facility] [id number] [place] [address] 85738- 7910 Jul, [facility] [id number] [place] [address] 87813- 6920 Jul, [facility] [id number] [place] [address] 49939- 5537 Jul, Severe episode of recurrent major depressive disorder, without psychotic features F33.2 ; Anxiety, generalized F41.1 and Borderline personality disorder in adult F60.3 [facility] [id number] [place] [address] 85080- 8947 Jul, Type 2 diabetes mellitus with diabetic polyneuropathy E11.42 [facility] [id number] [place] [address] 91534- 3134 Jul, Closed nondisplaced fracture of second metatarsal bone of left foot, initial encounter S92.325A and Closed nondisplaced fracture of third metatarsal bone of left foot, initial encounter S92.335A [facility] [id number] [place] [address] 26276- 6692 Jul, [facility] [id number] [place] [address] 29802- 8976 20 Jul, 2017 Closed nondisplaced fracture of second metatarsal bone of left foot, initial encounter S92.325A ; Acute left ankle pain M25.572 ; Acute midline low back pain without sciatica M54.5 and Seasonal allergic rhinitis, unspecified allergic rhinitis trigger J30.2 [facility] [id number] [place] [address] 43238- 6381 Jul, [facility] [id number] [place] [address] 50959- 1711 Jul, [facility] [id number] [place] [address] 50284- 7943 15 Jul, 2017 [facility] [id number] [place] [address] 84585- 8419 15 Jul, 2017 Frequent falls R29.6 [facility] [id number] [place] [address] 37861- 2836 14 Jul, 2017 Frequent falls R29.6 [facility] [id number] [place] [address] 45066- 9228 07 Jul, 2017 Severe episode of recurrent major depressive disorder, without psychotic features F33.2 ; Anxiety, generalized F41.1 and Borderline personality disorder in adult F60.3 [facility] [id number] [place] [address] 04041- 2472 07 Jul, 2017 Chronic pain syndrome G89.4 [facility] [id number] [place] [address] 88604- 8710 07 Jul, 2017 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 designer current use of insulin Z79.4 [facility] [id number] [place] [address] 52530- 0693 Jul, [facility] [address] 99912- 4703 Jul, Type 2 diabetes mellitus with diabetic polyneuropathy E11.42 [facility] [address] 44040- 4636 Jun, 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 designer current use of insulin Z79.4 and Thrush B37.0 [facility] [address] 92308- 3438 Jun, Severe episode of recurrent major depressive disorder, without psychotic features F33.2 ; Anxiety, generalized F41.1 and Borderline personality disorder in adult F60.3 [facility] [address] 06668- 6216 Jun, Severe episode of recurrent major depressive disorder, without psychotic features F33.2 ; Anxiety, generalized F41.1 and Borderline personality disorder in adult F60.3 [facility] [address] 38263- 0027 Jun, Frequent falls R29.6 ; Bronchitis J40 ; BMI 40.0-44.9, adult Z68.41 and Coccygeal pain, acute M53.3 [facility] [id number] [place] [address] 83185- 9621 Jun, [facility] [id number] [place] [address] 59390 -3503 Jun, [facility] [address] 26302- 5960 Jun, [facility] [address] 66259- 1306 Jun, Dental caries, unspecified K02.9 [facility] [id number] [place] [address] 96091- 2625 Jun, Acute non-recurrent maxillary sinusitis J01.00 and BMI 40.0- 44.9, adult Z68.41 [facility] [id number] [place] [address] 79401- 2678 Jun, [facility] [id number] [place] [address] 89441- 6407 Jun, Severe episode of recurrent major depressive disorder, without psychotic features F33.2 ; Anxiety, generalized F41.1 and Borderline personality disorder in adult F60.3 [facility] [id number] [place] [address] 60151- 1242 11 Jun, 2017 Closed nondisplaced fracture of third metatarsal bone of left foot with routine healing, subsequent encounter S92.335D ; Closed nondisplaced fracture of second metatarsal bone of left foot with routine healing, subsequent encounter S92.325D and Closed nondisplaced fracture of fourth metatarsal bone of left foot with routine healing, subsequent encounter S92.345D [facility] [id number] [place] [address] 90276- 1916 Jun, Severe episode of recurrent major depressive disorder, without psychotic features F33.2 ; Anxiety, generalized F41.1 and Borderline personality disorder in adult F60.3 [facility] [id number] [place] [address] 90119- 0739 Jun, [facility] [address] [address]- 0251 Jun, [facility] [id number] [place] [address] 89276- 7298 Jun, [facility] [id number] [place] [address] 14135- 0002 Jun, [facility] [id number] [place] [address] 43694- 7342 Jun, [facility] [address] [place] [address] 66116- 6701 Jun, Anxiety F41.9 [facility] [id number] [address]- 7176 Jun, [facility] [id number] [place] [address] 57734- 0620 Jun, [facility] [id number] [place] [address] 72285- 8315 Jun, Type 2 diabetes mellitus with diabetic autonomic (poly) neuropathy E11.43 [facility] [id number] [place] [address] 02450- 3586 Jun, Severe episode of recurrent major depressive disorder, without psychotic features F33.2 ; Anxiety, generalized F41.1 and Borderline personality disorder in adult F60.3 [id number] [place] [address] 12189- 7502 Jun, Type 2 diabetes mellitus with diabetic autonomic (poly) neuropathy E11.43 and Chronic pain syndrome G89.4 [id number] [place] [address] 98823- 4914 May, Recent urinary tract infection Z87.440 ; Deliberate self- cutting Z72.89 ; Chest discomfort R07.89 ; BMI 40.0-44.9, adult Z68.41 and Worried well Z71.1 [facility] [address] [place] [address] 74088- 7847 May, Severe episode of recurrent major depressive disorder, without psychotic features F33.2 ; Anxiety, generalized F41.1 and Borderline personality disorder in adult F60.3 [facility] [address] [address]- 7803 May, [facility] [id number] [place] [address] 71514- 1056 May, [address] [place] [address] 11548- 7230 May, Type 2 diabetes mellitus with diabetic autonomic (poly) neuropathy E11.43 [facility] [id number] [place] [address] 58795- 3950 May, Severe episode of recurrent major depressive disorder, without psychotic features F33.2 ; Anxiety, generalized F41.1 and Borderline personality disorder in adult F60.3 [facility] [id number] [place] [address] 93883- 6717 May, [facility] [address] 81258- 2775 May, Type 2 diabetes mellitus with diabetic autonomic (poly) neuropathy E11.43 ; Multiple neurological symptoms R29.90 ; Dysuria R30.0 ; Tobacco abuse Z72.0 ; Right hip pain M25.551 ; Anxiety F41.9 ; Gastritis determined by endoscopy K29.70 ; Chronic pain syndrome G89.4 ; Acute non- recurrent maxillary sinusitis J01.00 ; Self mutilating behavior Z72.89 and BMI 40.0-44.9, adult Z68.41 [facility] [address] 06414- 3866 May, Severe episode of recurrent major depressive disorder, without psychotic features F33.2 ; Anxiety, generalized F41.1 and Borderline personality disorder in adult F60.3 [facility] [address] 28372- 5891 Apr, [facility] [address] 94496- 1617 Apr, [facility] [address] 93520 -5000 Apr, [facility] [address] 24015 -2692 Apr, Aspiration pneumonia of right lower lobe, unspecified aspiration pneumonia type J69.0 [facility] [address] 40370- 1546 Apr, Severe episode of recurrent major depressive disorder, without psychotic features F33.2 ; Anxiety, generalized F41.1 and Borderline personality disorder in adult F60.3 [facility] [address] 10058- 4080 Apr, [facility] [address] [place] [address] 71016- 1231 Apr, Chronic pain syndrome G89.4 [facility] [address] [place] [address] 71489- 6833 21 Apr, 2017 Severe episode of recurrent major depressive disorder, without psychotic features F33.2 ; Anxiety, generalized F41.1 and Borderline personality disorder in adult F60.3 [facility] [id number] [place] [address] 75861- 3585 16 Apr, 2017 Severe episode of recurrent major depressive disorder, without psychotic features F33.2 ; Anxiety, generalized F41.1 and Borderline personality disorder in adult F60.3 [facility] [address] [place] [address] 84480- 7282 16 Apr, 2017 Closed nondisplaced fracture of third metatarsal bone of left foot with routine healing, subsequent encounter S92.335D ; Closed nondisplaced fracture of fourth metatarsal bone of left foot with routine healing, subsequent encounter S92.345D and Closed nondisplaced fracture of second metatarsal bone of left foot with routine healing, subsequent encounter S92.325D [facility] [address] [place] [address] 93875- 1324 16 Apr, 2017 [facility] [address] [place] [address] 17362- 4683 15 Apr, 2017 [facility] [id number] [place] [address] 89730- 5409 14 Apr, 2017 [facility] [id number] [place] [address] 16667- 6305 13 Apr, 2017 Screening breast examination Z12.31 [facility] [id number] [place] [address] 78735- 9992 09 Apr, 2017 [facility] [id number] [place] [address] 59580- 2254 Apr, Type 2 diabetes mellitus with diabetic autonomic (poly) neuropathy E11.43 [facility] [address] [place] [address] 13165- 5589 Apr, Severe episode of recurrent major depressive disorder, without psychotic features F33.2 ; Anxiety, generalized F41.1 and Borderline personality disorder in adult F60.3 [facility] [id number] [place] [address] 99840- 3157 Apr, Type 2 diabetes mellitus with diabetic autonomic (poly) neuropathy E11.43 ; Chronic pain syndrome G89.4 and Anxiety F41.9 [facility] [id number] [place] [address] 76060 -8983 Apr, BMI 45.0-49.9, adult Z68.42 [facility] [id number] [place] [address] 07440 -4713 Apr, Avulsion of toenail, initial encounter S91.209A and Acute non-recurrent maxillary sinusitis J01.00 [facility] [id number] [place] [address] 32486- 2393 Apr, [facility] [id number] [place] [address] 17071- 4993 Mar, [facility] [id number] [place] [address] 97826- 7504 Mar, Severe episode of recurrent major depressive disorder, without psychotic features F33.2 ; Anxiety, generalized F41.1 and Borderline personality disorder in adult F60.3 [facility] [id number] [place] [address] 05249- 2541 Mar, [facility] [id number] [place] [address] 15987- 6987 Mar, [facility] [id number] [place] [address] 21858- 6196 Mar, [facility] [id number] [place] [address] 51146- 3447 Mar, Seizure disorder G40.909 [facility] [address] [place] [address] 55838- 7545 Mar, [facility] [id number] [place] [address] 88811- 9751 Mar, [facility] [address] [place] [address] 51957 -6301 Mar, Left foot pain M79.672 ; Stage 3 chronic kidney disease N18.3 and Closed nondisplaced fracture of second metatarsal bone of left foot, initial encounter S92.325A [facility] [id number] [place] [address] 99332- 3395 Mar, Severe episode of recurrent major depressive disorder, without psychotic features F33.2 and Anxiety, generalized F41.1 [facility] [id number] [place] [address] 73230- 9723 Mar, [facility] [id number] [place] [address] 92463- 7788 Mar, Closed nondisplaced fracture of second metatarsal bone of left foot, initial encounter S92.325A and Closed nondisplaced fracture of third metatarsal bone of left foot, initial encounter S92.335A [facility] [id number] [place] [address] 74879- 6074 Mar, Seizure disorder G40.909 [facility] [id number] [place] [address] 29255- 6457 Mar, [facility] [id number] [place] [address] 70658- 2581 Mar, [facility] [id number] [place] [address] 86843- 9379 Mar, [facility] [id number] [place] [address] 19283- 6980 Mar, [facility] [id number] [place] [address] 81932- 1557 Mar, High risk sexual behavior Z72.51 [facility] [address] [place] [address] 24546- 2334 Mar, Severe episode of recurrent major depressive disorder, without psychotic features F33.2 and Anxiety, generalized F41.1 [facility] [id number] [place] [address] 56893- 8935 Mar, Anxiety F41.9 and Type 2 diabetes mellitus with diabetic autonomic (poly)neuropathy E11.43 [facility] [id number] [place] [address] 00238- 1168 Mar, Anxiety F41.9 [facility] [id number] [place] [address] 91272- 7040 Mar, High risk sexual behavior Z72.51 [facility] [id number] [place] [address] 38654- 9322 Mar, Chronic pain syndrome G89.4 [facility] [id number] [place] [address] 19130- 4764 Mar, Type 2 diabetes mellitus with diabetic autonomic (poly) neuropathy E11.43 [facility] [id number] [place] [address] 38825- 9265 Mar, [facility] [id number] [place] [address] 59447- 5925 Mar, Closed nondisplaced fracture of second metatarsal bone of left foot, initial encounter S92.325A ; Chronic pain syndrome G89.4 ; Closed nondisplaced fracture of third metatarsal bone of left foot, initial encounter S92.335A ; Acute left ankle pain M25.572 and Type 2 diabetes mellitus with diabetic autonomic (poly)neuropathy E11.43 [facility] [id number] [place] [address] 69240- 6493 Mar, [facility] [id number] [place] [address] 47225- 0001 Mar, [facility] [id number] [place] [address] 44600- 3772 Mar, Severe episode of recurrent major depressive disorder, without psychotic features F33.2 and Anxiety, generalized F41.1 [facility] [id number] [place] [address] 39207- 5077 27 Feb, 2017 [facility] [id number] [place] [address] 65440- 4548 26 Feb, 2017 Renal insufficiency N28.9 [facility] [id number] [place] [address] 66139- 1562 Feb, [facility] [id number] [place] [address] 66666- 9461 26 Feb, 2017 Severe episode of recurrent major depressive disorder, without psychotic features F33.2 and Anxiety, generalized F41.1 [facility] [id number] [place] [address] 23142- 2104 25 Feb, 2017 [facility] [id number] [place] [address] 17748- 9146 22 Feb, 2017 [facility] [id number] [place] [address] 28592- 9479 20 Feb, 2017 Renal insufficiency N28.9 [facility] [id number] [place] [phone] 19 Feb, 2017 [facility] [id number] [place] [phone] 18 Feb, 2017 [facility] [id number] [place] [address] [phone] 14 Feb, 2017 [facility] [address] [place] [id number] [place] [address] 00581- 6541 13 Feb, 2017 Severe episode of recurrent major depressive disorder, without psychotic features F33.2 and Anxiety, generalized F41.1 [facility] [id number] [place] [address] 28320- 6250 13 Feb, 2017 Closed nondisplaced fracture of second metatarsal bone of left foot, initial encounter S92.325A ; Chronic pain syndrome G89.4 ; Closed nondisplaced fracture of third metatarsal bone of left foot, initial encounter S92.335A ; Left hip pain M25.552 and Stage 3 chronic kidney disease N18.3 [facility] [address] [id number] [address] Feb, [facility] [address] [place] [id number] [place] [address] 01646- 3331 Feb, [facility] [address] [place] [id number] [place] [address] 48154- 5270 Feb, Closed nondisplaced fracture of second metatarsal bone of left foot, initial encounter S92.325A and Closed nondisplaced fracture of third metatarsal bone of left foot, initial encounter S92.335A [place] [id number] [place] [address] 30366- 8804 Feb, [facility] [address] [place] [id number] [place] [address] 10879- 0592 Feb, Anxiety F41.9 [facility] [address] [place] [id number] [place] [address] 14436- 6759 Feb, [facility] [address] [place] [id number] [place] [address] 63430- 2959 Feb, Chronic pain syndrome G89.4 [facility] [address] [place] [address] 55167- 9604 Feb, Left foot pain M79.672 ; Closed nondisplaced fracture of second metatarsal bone of left foot, initial encounter S92.325A ; Closed nondisplaced fracture of third metatarsal bone of left foot, initial encounter S92.335A and Oral infection K12.2 [facility] [address] [place] [id number] [place] [address] 22757- 1288 Feb, [facility] [address] [place] [id number] [place] [address] 13080- 6547 Jan, [facility] [address] [place] [id number] [place] [address] 52321- 6839 Jan, Type 2 diabetes mellitus with diabetic autonomic (poly) neuropathy E11.43 and Congestive heart failure, unspecified congestive heart failure chronicity, unspecified congestive heart failure type I50.9 [place] [address] [place] [id number] [place] [address] 24534- 2735 Jan, Congestive heart failure, unspecified congestive heart failure chronicity, unspecified congestive heart failure type I50.9 and Stage 3 chronic kidney disease N18.3 [place] [address] [place] [id number] [place] [address] 56975- 3634 Jan, Stage 3 chronic kidney disease N18.3 ; Edema of both legs R60.0 ; Chronic congestive heart failure, unspecified congestive heart failure type I50.9 ; Acute low back pain without sciatica, unspecified back pain laterality M54.5 ; Chronic nausea R11.0 and Primary insomnia F51.01 [place] [address] [place] [id number] [place] [address] 86833- 2848 Jan, Severe episode of recurrent major depressive disorder, without psychotic features F33.2 and Anxiety, generalized F41.1 [place] [address] [place] [id number] [place] [address] 77451- 8450 Jan, [facility] [address] [place] [id number] [place] [address] 07131- 8592 Jan, [facility] [address] [place] [id number] [place] [address] 81659- 3767 Jan, [place] [address] [place] [id number] [place] [address] 98942- 3536 Jan, [place] [facility] [address] [place] [id number] [place] [address] 36498- 2966 Jan, Anxiety F41.9 and Severe episode of recurrent major depressive disorder, without psychotic features F33.2 [place] [address] [place] [id number] [place] [address] 34507- 2982 Jan, Type 2 diabetes mellitus with diabetic autonomic (poly) neuropathy E11.43 [place] [address] [place] [id number] [place] [address] 81863- 1751 Jan, Severe episode of recurrent major depressive disorder, without psychotic features F33.2 and Type 2 diabetes mellitus with diabetic autonomic (poly)neuropathy E11.43 [place] [address] [place] [id number] [place] [address] 56799- 8825 Jan, [place] [address] 84487- 1278 Jan, [facility] [address] [place] [id number] [place] [address] 42227- 3943 Jan, Stage 3 chronic kidney disease N18.3 ; Seizure disorder G40.909 ; Edema of both legs R60.0 and Blister (nonthermal), right foot, initial encounter S90.821A [place] [address] [place] [id number] [place] [address] 01988- 3114 Jan, Severe episode of recurrent major depressive disorder, without psychotic features F33.2 and Anxiety, generalized F41.1 [facility] [facility] [address] [place] [id number] [place] [address] 37796- 0762 Jan, Severe episode of recurrent major depressive disorder, without psychotic features F33.2 and Anxiety, generalized F41.1 [place] [address] [place] [id number] [place] [address] 17369- 6845 Jan, [facility] [facility] [address] [place] [id number] [place] [address] 54211- 8726 Jan, Anxiety F41.9 and Primary insomnia F51.01 [place] [address] [place] [id number] [place] [address] 11335- 1275 Jan, Type 2 diabetes mellitus with diabetic autonomic (poly) neuropathy E11.43 ; 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 ; Stage 3 chronic kidney disease N18.3 ; Chronic pain syndrome G89.4 ; Swelling of mandible R22.0 and Seizure disorder G40.909 [place] [address] [place] [address]- 6303 Jan, [place] [address] [place] [id number] [place] [address] 86117- 2970 Jan, [facility] [address] [place] [id number] [place] [address] 47280- 7779 Dec, Severe episode of recurrent major depressive disorder, without psychotic features F33.2 and Anxiety, generalized F41.1 [place] [address] [place] [id number] [place] [address] 62759- 7446 Dec, Diarrhea, unspecified type R19.7 ; Gastritis determined by endoscopy K29.70 ; Dysuria R30.0 ; Unspecified abdominal pain R10.9 ; Unspecified fall W19.XXXA and Need for assistance with personal care Z74.1 [facility] [address] [place] [id number] [place] [address] 11965- 6051 Dec, Severe episode of recurrent major depressive disorder, without psychotic features F33.2 and Anxiety, generalized F41.1 [place] [address] [place] [id number] [place] [address] 39202- 8871 Dec, Diarrhea, unspecified type R19.7 ; Dysuria R30.0 ; Unspecified abdominal pain R10.9 ; Gastritis determined by endoscopy K29.70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
--- OUTSIDE RECORDS SUMMARY | 2017-12-04 21:03 | XMS REPORT ---
Author Author MILY CARMEN [facility] Address [address] [place] [address] Care Team Providers Care Metal Fabricating Supervisor Name Role Phone MILY CARMEN Unavailable PROBLEMS Type Condition ICD9-CM Code [id number] Code Onset Dates Condition Status SNOMED Code Problem 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 Active 251791130 Problem Recurrent major depressive disorder, remission status unspecified F33.9 Active 28852299 Problem Severe episode of recurrent major depressive disorder, without psychotic features F33.2 Active 91457893 Problem Tobacco abuse Z72.0 Active 845092240 Problem Anxiety, generalized F41.1 Active 73660105 Problem Stage 3 chronic kidney disease N18.3 Active 986766712 Problem Weakness R53.1 Active 55761146 Problem High risk sexual behavior Z72.51 Active 194576097 Problem Vaginal bleeding N93.9 Active 731757348 Problem Chronic nausea R11.0 Active 303064306 Problem Right lower quadrant abdominal pain R10.31 Active 541042654 Problem Self-inflicted injury Z72.89 Active 277268743 Problem Noncompliance with diabetes treatment Z91.19 Active 2256693 Problem Unspecified fall W19.XXXA Active 8721959 Problem Type 2 diabetes mellitus with diabetic polyneuropathy E11.42 Active 79208885 Problem Gastritis determined by endoscopy K29.70 Active 1668824 Problem Unspecified abdominal pain R10.9 Active 090132900 Problem Diarrhea, unspecified type R19.7 Active 27637627 Problem Left hip pain M25.552 Active 20087323 Problem Closed nondisplaced fracture of second metatarsal bone of left foot, initial encounter S92.325A Active 07307896 Problem Neck pain M54.2 Active 84079473 Problem Thrush B37.0 Active 98916702 Problem Anxiety F41.9 Active 46935398 Problem Swelling of both lower extremities M79.89 Active 33015061674858989 Problem Essential hypertension I10 Active 70444326 Problem Edema of both legs R60.0 Active 731554156 Problem Acquired hypothyroidism E03.9 Active 503174184 Problem Blister (nonthermal), right foot, initial encounter S90.821A Active 925025970 Problem Congestive heart failure, unspecified congestive heart failure chronicity, unspecified congestive heart failure type I50.9 Active 47737913 Problem Closed nondisplaced fracture of third metatarsal bone of left foot, initial encounter S92.335A Active 830882476 Problem Port catheter in place Z95.828 Active 688566835 Problem Chronic congestive heart failure, unspecified congestive heart failure type I50.9 Active 27570724 Problem Primary insomnia F51.01 Active 7033697 Problem Postural hypotension I95.1 Active 83829739 Problem Screening breast examination Z12.39 Active 032989181 Problem Acute non-recurrent maxillary sinusitis J01.00 Active 31262482 Problem Type 2 diabetes mellitus with diabetic autonomic (poly)neuropathy E11.43 Active 577452151 Problem Syncope, unspecified syncope type R55 Active 997282730 Problem Chronic pain syndrome G89.4 Active 650358729 Problem Acute pain of right shoulder M25.511 Active 44552804 Problem Epigastric pain R10.13 Active 38077374 Problem Seizure disorder G40.909 Active 191739421 Problem Gastroparesis K31.84 Active 053362101 Problem Chronic superficial gastritis without bleeding K29.30 Active 421383764 Problem Seasonal allergic rhinitis, unspecified allergic rhinitis trigger J30.2 Active 638254163 Problem Swelling of mandible R22.0 Active 170579085 ALLERGIES Substance Reaction Event Type Date Status [...] prn Reason: VITAL SIGNS Height 62 in 2016-09-05 Weight 262 lbs 2016-09-05 Temperature 97.5 degrees Fahrenheit 2016-09-05 Heart Rate 80 bpm 2016-09-05 Respiratory Rate 20 2016-09-05 BMI 47.92 kg/m2 2016-09-05 Blood pressure systolic 122 mmHg 2016-09-05 Blood pressure diastolic 78 mmHg 2016-09-05 MEDICATIONS Medication Instructions Dosage Frequency Start Date End Date Duration Status Benadryl Allergy 25 MG Orally Once a day at bedtime 2 tablet as needed Active Zantac 150 MG Orally twice a day 1 tablet 12h 30 day(s) Active Furosemide 20 mg Orally Once a day 1 tablet 24h 14 days Active Alprazolam 1 MG Orally Three times a day must last 28 days 1 tablet Active Escitalopram Oxalate 20 mg Orally Once a day 1 tablet 24h 30 Active Temazepam 30 MG Orally Once a day 1 capsule at bedtime as needed 24h Active Humulin R U-500 (Concentrated) 500 UNIT/ML Subcutaneous 3 times a day with meals 70 units Active Levothyroxine Sodium 75 MCG Orally Once a day 1 tablet 24h Active Luis Fernando Contour Test - In Vitro 3 times a day as directed 8h Jan, Active Promethazine HCl 25 MG Orally 2 times a day 1 tablet as needed 12h 28 days Active Naproxen 500 mg Orally every 12 hrs 1 tablet as needed 12h Jun, 2 Oct, 2016 28 days Active Losartan Potassium-HCTZ 100-25 MG Orally Once a day 1 tablet 24h Active Insulin Syringe 31G X 5/16 Active Oxygen 3L nasal canal Active Seroquel XR 50MG TAKE TWO TABLETS BY MOUTH ONCE DAILY AT BEDTIME 28 Active Nystatin 023202 UNIT/ML Mouth/Throat Four times a day 4 ml 6h 12 Mar, 2016 Active Atenolol 50 mg Orally Once a day 1 tablet 24h Active Nystatin 970798 UNIT/GM Externally Twice a day apply to abdominal fold twice a day 12h Active Tizanidine HCl 4 MG Orally Three times a day 1 tablet as needed 8h Active Gabapentin 800 MG Orally 4 times a day 1 tablet 6h Active RESULTS No Results PROCEDURES No Known [...] vein (port for IV access) Dr. Hernandez [facility] 08-29-2013 Surgical History partial hysterectomy Surgical History EGD Hospitalization History transfusion given after delivery Hospitalization History Chest pain, uncontrolled Hyperglycemia--[facility] 12/15/15 Hospitalization History Influenza B Hospitalization History pneumonia Hospitalization History [facility] 07/16/16 Hospitalization History for high sugar 07/12
--- OUTSIDE RECORDS SUMMARY | 2017-12-04 21:03 | XMS REPORT ---
Author Author MIRZA MARTINO [facility] Address [address] [place] [address] Care Team Providers Care Fowl Blood Tester Name Role Phone MIRZA MARTINO Unavailable PROBLEMS Type Condition ICD9-CM Code [id number] Code Onset Dates Condition Status SNOMED Code Problem Tobacco abuse Z72.0 Active 505141161 Problem shelter current use of insulin Z79.4 Active 601764087 Problem Anxiety, generalized F41.1 Active 98724849 Problem Severe episode of recurrent major depressive disorder, without psychotic features F33.2 Active 87061272 Problem Stage 3 chronic kidney disease N18.3 Active 639192289 Problem Weakness R53.1 Active 67620733 Problem High risk sexual behavior Z72.51 Active 617752365 Problem Vaginal bleeding N93.9 Active 856480415 Problem Port catheter in place Z95.828 Active 771702299 Problem Chronic nausea R11.0 Active 051362188 Problem Right lower quadrant abdominal pain R10.31 Active 606706769 Problem Noncompliance with diabetes treatment Z91.19 Active 2593099 Problem Unspecified fall W19.XXXA Active 7370399 Problem Type 2 diabetes mellitus with diabetic polyneuropathy E11.42 Active 58138508 Problem Diarrhea, unspecified type R19.7 Active 93811434 Problem Swelling of both lower extremities M79.89 Active 40745948365358416 Problem Gastritis determined by endoscopy K29.70 Active 6726063 Problem Blister (nonthermal), right foot, initial encounter S90.821A Active 074088241 Problem Unspecified abdominal pain R10.9 Active 059078886 Problem Borderline personality disorder in adult F60.3 Active 19526182 Problem Closed nondisplaced fracture of second metatarsal bone of left foot, initial encounter S92.325A Active 99091786 Problem Syncope, unspecified syncope type R55 Active 274200844 Problem Neck pain M54.2 Active 04336169 Problem Epigastric pain R10.13 Active 82028486 Problem Thrush B37.0 Active 81049712 Problem Anxiety F41.9 Active 84609958 Problem Chronic congestive heart failure, unspecified congestive heart failure type I50.9 Active 00204271 Problem Essential hypertension I10 Active 62322272 Problem Edema of both legs R60.0 Active 294931845 Problem Acquired hypothyroidism E03.9 Active 242406560 Problem Closed nondisplaced fracture of third metatarsal bone of left foot, initial encounter S92.335A Active 732251763 Problem Congestive heart failure, unspecified congestive heart failure chronicity, unspecified congestive heart failure type I50.9 Active 62604449 Problem Left hip pain M25.552 Active 13820883 Problem Screening breast examination Z12.39 Active 689461214 Problem Acute non-recurrent maxillary sinusitis J01.00 Active 58657094 Problem Recurrent major depressive disorder, remission status unspecified F33.9 Active 15670758 Problem Seasonal allergic rhinitis, unspecified allergic rhinitis trigger J30.2 Active 947672369 Problem Chronic pain syndrome G89.4 Active 480231219 Problem Acute pain of right shoulder M25.511 Active 00973065 Problem Primary insomnia F51.01 Active 3961118 Problem Postural hypotension I95.1 Active 57981653 Problem Gastroparesis K31.84 Active 818603671 Problem Chronic superficial gastritis without bleeding K29.30 Active 452220928 Problem Type 2 diabetes mellitus with diabetic autonomic (poly)neuropathy E11.43 Active 075908589 Problem Self-inflicted injury Z72.89 Active 360037729 Problem Swelling of mandible R22.0 Active 324126000 Problem Seizure disorder G40.909 Active 919747668 ALLERGIES No Information SOCIAL HISTORY Never Assessed [...] Dr. Hernandez [facility] - Surgical History partial hysterectomy Surgical History EGD Hospitalization History transfusion given after delivery Hospitalization History Chest pain, uncontrolled Hyperglycemia--[facility] 12/15/15 Hospitalization History Influenza B Hospitalization History pneumonia Hospitalization History [facility] 07/16/16 Hospitalization History for high sugar 07/12
[2017-12-04] MEDS ORDERED: FAMOTIDINE 20 MG (PEPCID) TABLET PO STA (21:05)
--- OUTSIDE RECORDS SUMMARY | 2017-12-04 21:05 | XMS REPORT ---
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 Active 125196143 Problem Recurrent major depressive disorder, remission status unspecified F33.9 Active 43842011 Problem Severe episode of recurrent major depressive disorder, without psychotic features F33.2 Active 32588761 Problem Tobacco abuse Z72.0 Active 938575966 Problem Anxiety, generalized F41.1 Active 59000403 Problem Weakness R53.1 Active 38451980 Problem Stage 3 chronic kidney disease N18.3 Active 278627681 Problem Vaginal bleeding N93.9 Active 179514613 Problem Chronic nausea R11.0 Active 153886785 Problem Right lower quadrant abdominal pain R10.31 Active 009997559 Problem Self-inflicted injury Z72.89 Active 353422698 Problem Noncompliance with diabetes treatment Z91.19 Active 5320870 Problem Unspecified fall W19.XXXA Active 4108655 Problem Type 2 diabetes mellitus with diabetic polyneuropathy E11.42 Active 23933936 Problem Gastritis determined by endoscopy K29.70 Active 9764519 Problem Unspecified abdominal pain R10.9 Active 530023614 Problem Diarrhea, unspecified type R19.7 Active 96365838 Problem Left hip pain M25.552 Active 82404719 Problem Closed nondisplaced fracture of second metatarsal bone of left foot, initial encounter S92.325A Active 26146478 Problem Neck pain M54.2 Active 15992487 Problem Thrush B37.0 Active 38376338 Problem Anxiety F41.9 Active 74971514 Problem Swelling of both lower extremities M79.89 Active 46520990976211031 Problem Essential hypertension I10 Active 38106920 Problem Edema of both legs R60.0 Active 807297059 Problem Acquired hypothyroidism E03.9 Active 766635697 Problem Blister (nonthermal), right foot, initial encounter S90.821A Active 282998934 Problem Congestive heart failure, unspecified congestive heart failure chronicity, unspecified congestive heart failure type I50.9 Active 90061569 Problem Closed nondisplaced fracture of third metatarsal bone of left foot, initial encounter S92.335A Active 294217787 Problem Port catheter in place Z95.828 Active 156043321 Problem Chronic congestive heart failure, unspecified congestive heart failure type I50.9 Active 32978915 Problem Primary insomnia F51.01 Active 6202516 Problem Postural hypotension I95.1 Active 69502409 Problem Screening breast examination Z12.39 Active 616463626 Problem Acute non-recurrent maxillary sinusitis J01.00 Active 82298223 Problem Type 2 diabetes mellitus with diabetic autonomic (poly)neuropathy E11.43 Active 695520032 Problem Syncope, unspecified syncope type R55 Active 184811579 Problem Chronic pain syndrome G89.4 Active 970616786 Problem Acute pain of right shoulder M25.511 Active 22811849 Problem Epigastric pain R10.13 Active 71034930 Problem Seizure disorder G40.909 Active 566549595 Problem Gastroparesis K31.84 Active 816369083 Problem Chronic superficial gastritis without bleeding K29.30 Active 417728830 Problem Seasonal allergic rhinitis, unspecified allergic rhinitis trigger J30.2 Active 399632098 Problem Swelling of mandible R22.0 Active 691399828 ALLERGIES Substance Reaction Event Type Date Status [...] Non Drug Allergy Apr, Active SOCIAL HISTORY Never Assessed PLAN OF CARE Activity Details Follow Up prn Reason: VITAL SIGNS Height 62 in 2016-04-26 Weight 245.2 lbs 2016-04-26 Temperature 98.4 degrees Fahrenheit 2016-04-26 Heart Rate 82 bpm 2016-04-26 Respiratory Rate 20 2016-04-26 BMI 44.84 kg/m2 2016-04-26 Blood pressure systolic 120 mmHg 2016-04-26 Blood pressure diastolic 88 mmHg 2016-04-26 MEDICATIONS Medication Instructions Dosage Frequency Start Date End Date Duration Status Baclofen 10 MG Orally Three times a day 1 tablet with food or milk 8h Jan, Active Tylenol 500 MG/15ML Orally Once a day @ HS 2 tablets Active Nystatin 531961 UNIT/ML Mouth/Throat Four times a day 4 ml 6h Mar, Apr, 30 day(s) Active Levemir FlexTouch 100 UNIT/ML Subcutaneous 2 times a day 35 units 12h Active Oxygen 3L nasal canal Active Levothyroxine Sodium 75 MCG Orally Once a day 1 tablet 24h Active Pantoprazole Sodium 40 mg Orally Once a day 1 tablet 24h Active Gabapentin 800 MG Orally 3 times a day 1 tablet 8h Active Temazepam 30 MG Orally Once a day 1 capsule at bedtime as needed 24h Active Nystatin 459882 UNIT/GM Externally Twice a day 1 to affected area 12h Active Alprazolam 1 MG Orally Three times a day must last 28 days 1 tablet Active Escitalopram Oxalate 20 mg Orally Once a day 1 tablet 24h Active Humulin R U-500 (Concentrated) 500 UNIT/ML Subcutaneous 3 times a day with meals 45 units or per sliding scale Active Zantac 150 MG Orally twice a day 1 tablet 12h 30 day(s) Active Luis Fernando Contour Test - In Vitro 3 times a day as directed 8h Jan, Active Seroquel XR 50 mg Orally Once a day at HS 2 tablet in the evening 28 days Active Tresiba FlexTouch 100 UNIT/ML Subcutaneous Once a day at bedtime 75 units Active Insulin Syringe 31G X 5/16 Active Promethazine HCl 25 MG TAKE ONE TABLET BY MOUTH EVERY 6 HOURS NEEDED 15 Active Benadryl Allergy 25 MG Orally Once a day at bedtime 2 tablet as needed Active Atenolol 50 mg Orally Once a day 2 tablet 24h Active Losartan Potassium-HCTZ 100-25 MG Orally Once a day 1 tablet 24h Active RESULTS No Results PROCEDURES Procedure Date Ordered Result Body Site URINALYSIS, AUTO, W/O SCOPE Apr 26, 2016 GLUCOSE BLOOD TEST Apr 26, 2016 IMMUNIZATIONS No Known Immunizations MEDICAL (GENERAL) [...] Influenza B Hospitalization History pneumonia Hospitalization History [facility] 07/16/16 Hospitalization History for high sugar 07/12
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
--- OUTSIDE RECORDS SUMMARY | 2017-12-04 21:06 | XMS REPORT ---
Author Author MIRZA MARTINO Organization [facility] Address [address] [place] [address] Care Team Providers Care Avionics Repair Technician Name Role Phone SALENA MIRZA Unavailable PROBLEMS Type Condition ICD9-CM Code MUC12-MB Code Onset Dates Condition Status SNOMED Code Problem Seasonal allergic rhinitis, unspecified allergic rhinitis trigger J30.2 Active 317326192 Problem Self-inflicted injury Z72.89 Active 603774850 Problem Seizure disorder G40.909 Active 736910361 Problem Postconcussion syndrome F07.81 Active 90835501 Problem Acquired hypothyroidism E03.9 Active 074942493 Problem Closed nondisplaced fracture of second metatarsal bone of left foot, initial encounter S92.325A Active 52717648 Problem Essential hypertension I10 Active 39737820 Problem Port catheter in place Z95.828 Active 724170393 Problem Chronic congestive heart failure, unspecified congestive heart failure type I50.9 Active 03818760 Problem Gastritis determined by endoscopy K29.70 Active 1681703 Problem Multiple neurological symptoms R29.90 Active 014750746 Problem Borderline personality disorder in adult F60.3 Active 57106948 Problem Primary insomnia F51.01 Active 2789151 Problem 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 Active 178905553 Problem Gastroparesis K31.84 Active 246588518 Problem Chronic pain syndrome G89.4 Active 700586978 Problem Anxiety, generalized F41.1 Active 26215079 Problem Type 2 diabetes mellitus with diabetic polyneuropathy E11.42 Active 45703871 Problem Tobacco abuse Z72.0 Active 970493924 Problem Noncompliance with diabetes treatment Z91.19 Active 6512899 Problem Stage 3 chronic kidney disease N18.3 Active 376132789 Problem Severe episode of recurrent major depressive disorder, without psychotic features F33.2 Active 23258676 Problem Postural hypotension I95.1 Active 35732882 ALLERGIES No Information ENCOUNTERS Encounter Location Date Diagnosis [facility] [address] [address] October, [facility] [id number] [place] [address] 95462- 9778 October, [facility] [id number] [place] [address] 96301- 7078 October, [facility] [id number] [place] [address] 95645- 3676 October, [facility] [id number] [place] [address] 99992- 5573 Sep, [facility] [id number] [place] [address] 57506 -7862 Sep, Neck pain M54.2 ; Strain of lumbar region, initial encounter S39.012A and Postconcussion syndrome F07.81 [facility] [id number] [place] [address] 73753- 2384 Sep, [facility] [id number] [place] [address] 80219- 0355 Sep, Severe episode of recurrent major depressive disorder, without psychotic features F33.2 ; Anxiety, generalized F41.1 and Borderline personality disorder in adult F60.3 [facility] [id number] [place] [address] 78998- 5877 Sep, [facility] [id number] [place] [address] 10677- 5614 Sep, Throat pain R07.0 ; BMI 40.0-44.9, adult Z68.41 and Chronic pain syndrome G89.4 [facility] [id number] [place] [address] 99794- 2867 Sep, [facility] [id number] [place] [address] 17630- 7335 Sep, [facility] [id number] [place] [address] 35607- 0762 Sep, [facility] [address] [address] 8[address] Sep, Anxiety, generalized F41.1 [place] [id number] [place] [address] 48140- 4811 Sep, [facility] [id number] [place] [address] 60155- 5867 Sep, Stage 3 chronic kidney disease N18.3 [facility] [id number] [place] [address] 39298- 3510 Sep, Stage 3 chronic kidney disease N18.3 and Chronic pain syndrome G89.4 [place] [id number] [place] [address] 79374- 8055 Sep, Severe episode of recurrent major depressive disorder, without psychotic features F33.2 ; Anxiety, generalized F41.1 and Borderline personality disorder in adult F60.3 [place] [id number] [place] [address] 79422- 1462 Sep, Chronic pain syndrome G89.4 ; Anxiety, generalized F41.1 and BMI 45.0-49.9, adult Z68.42 [place] [id number] [place] [address] 38354- 7127 Sep, [place] [id number] [place] [address] 51708- 4538 Sep, [facility] [id number] [place] [address] 85933- 5433 Sep, Severe episode of recurrent major depressive disorder, without psychotic features F33.2 ; Anxiety, generalized F41.1 and Borderline personality disorder in adult F60.3 [place] [id number] [place] [address] 43072- 3501 Sep, [facility] [id number] [place] [address] 13481 -6823 Aug, Dysuria R30.0 ; Type 2 diabetes mellitus with diabetic polyneuropathy E11.42 ; Oral abscess K12.2 and BMI 40.0-44.9, adult Z68.41 [facility] [id number] [place] [address] 86960- 4703 30 Aug, 2017 [facility] [id number] [place] [address] 23889- 2768 Aug, [facility] [id number] [place] [address] 69143- 5369 Aug, [facility] [id number] [place] [address] 10477- 0666 Aug, [facility] [id number] [place] [address] 90037- 8317 Aug, Severe episode of recurrent major depressive disorder, without psychotic features F33.2 ; Anxiety, generalized F41.1 and Borderline personality disorder in adult F60.3 [place] [id number] [place] [address] 55382- 8067 22 Aug, 2017 [facility] [address] [place] [address] 28959- 7137 20 Aug, 2017 [facility] [id number] [place] [address] 60371- 1557 19 Aug, 2017 Severe episode of recurrent major depressive disorder, without psychotic features F33.2 ; Anxiety, generalized F41.1 and Borderline personality disorder in adult F60.3 [facility] [address] [address] 17 Aug, 2017 [facility] [address] [address] 9427 15 Aug, 2017 [facility] [id number] [place] [address] 91636- 4892 14 Aug, 2017 [facility] [address] [address] 14 Aug, 2017 Dysuria R30.0 ; Dental infection K04.7 ; Acute cystitis with hematuria N30.01 and BMI 45.0-49.9, adult Z68.42 [facility] [id number] [place] [address] 96990- 0133 14 Aug, 2017 Severe episode of recurrent major depressive disorder, without psychotic features F33.2 ; Anxiety, generalized F41.1 and Borderline personality disorder in adult F60.3 [facility] [id number] [place] [address] 67545- 7453 Aug, [facility] [id number] [place] [address] 41524- 3398 Aug, Closed nondisplaced fracture of second metatarsal bone of left foot, initial encounter S92.325A and Chronic pain syndrome G89.4 [facility] [id number] [place] [address] 26283- 1767 Aug, Type 2 diabetes mellitus with diabetic polyneuropathy E11.42 [facility] [id number] [place] [address] 90184- 8045 08 Aug, 2017 Severe episode of recurrent major depressive disorder, without psychotic features F33.2 ; Anxiety, generalized F41.1 and Borderline personality disorder in adult F60.3 [facility] [id number] [place] [address] 38086- 1359 Aug, [facility] [id number] [place] [address] 01723- 3232 Aug, [facility] [id number] [place] [address] 48446- 4879 Aug, [facility] [id number] [place] [address] 35048- 2295 Aug, [facility] [id number] [place] [address] 67225- 3163 Aug, [facility] [id number] [place] [address] 78066- 7257 Jul, [facility] [id number] [place] [address] 31358- 2785 Jul, [place] [id number] [place] [address] 01023- 7926 Jul, Severe episode of recurrent major depressive disorder, without psychotic features F33.2 ; Anxiety, generalized F41.1 and Borderline personality disorder in adult F60.3 [place] [id number] [place] [address] 13053- 0982 Jul, Type 2 diabetes mellitus with diabetic polyneuropathy E11.42 [place] [id number] [place] [address] 03224- 6971 Jul, Closed nondisplaced fracture of second metatarsal bone of left foot, initial encounter S92.325A and Closed nondisplaced fracture of third metatarsal bone of left foot, initial encounter S92.335A [place] [id number] [place] [address] 37729- 2663 Jul, [place] [id number] [place] [address] 17874- 2921 Jul, Closed nondisplaced fracture of second metatarsal bone of left foot, initial encounter S92.325A ; Acute left ankle pain M25.572 ; Acute midline low back pain without sciatica M54.5 and Seasonal allergic rhinitis, unspecified allergic rhinitis trigger J30.2 [place] [id number] [place] [address] 46005- 1401 Jul, [place] [id number] [place] [address] 67879- 0653 Jul, [place] [id number] [place] [address] 39162- 9274 Jul, [place] [id number] [place] [address] 22855- 4782 Jul, Frequent falls R29.6 [place] [id number] [place] [address] 62677- 0679 14 Jul, 2017 Frequent falls R29.6 [place] [address] [place] [address] 52710- 4217 07 Jul, 2017 Severe episode of recurrent major depressive disorder, without psychotic features F33.2 ; Anxiety, generalized F41.1 and Borderline personality disorder in adult F60.3 [place] [id number] [place] [address] 81596- 2328 Jul, Chronic pain syndrome G89.4 [place] [address] 73437- 0230 Jul, snf current use of insulin Z79.4 [place] [address] 01251- 4112 Jul, [place] [address] 27068- 7455 Jul, Type 2 diabetes mellitus with diabetic polyneuropathy E11.42 [place] [address] 12747- 8181 Jun, 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 and Thrush B37.0 [place] [address] 19839- 2330 Jun, Severe episode of recurrent major depressive disorder, without psychotic features F33.2 ; Anxiety, generalized F41.1 and Borderline personality disorder in adult F60.3 [place] [id number] [place] [address] 69945- 9274 Jun, Severe episode of recurrent major depressive disorder, without psychotic features F33.2 ; Anxiety, generalized F41.1 and Borderline personality disorder in adult F60.3 [place] [address] 88642- 6068 Jun, Frequent falls R29.6 ; Bronchitis J40 ; BMI 40.0-44.9, adult Z68.41 and Coccygeal pain, acute M53.3 [place] [address] 41784- 1292 Jun, [facility] [address] [address] Jun, [facility] [id number] [place] [address] 81500- 8743 Jun, [facility] [address] [place] [address] 29899- 8774 Jun, Dental caries, unspecified K02.9 [facility] [id number] [place] [address] 04061- 1430 17 Jun, 2017 Acute non-recurrent maxillary sinusitis J01.00 and BMI 40.0- 44.9, adult Z68.41 [facility] [id number] [place] [address] 57681- 8577 17 Jun, 2017 [facility] [id number] [place] [address] 37233- 1772 Jun, Severe episode of recurrent major depressive disorder, without psychotic features F33.2 ; Anxiety, generalized F41.1 and Borderline personality disorder in adult F60.3 [facility] [address] [place] [address] 47162- 0122 11 Jun, 2017 Closed nondisplaced fracture of third metatarsal bone of left foot with routine healing, subsequent encounter S92.335D ; Closed nondisplaced fracture of second metatarsal bone of left foot with routine healing, subsequent encounter S92.325D and Closed nondisplaced fracture of fourth metatarsal bone of left foot with routine healing, subsequent encounter S92.345D [facility] [id number] [address]- 94[address] Jun, Severe episode of recurrent major depressive disorder, without psychotic features F33.2 ; Anxiety, generalized F41.1 and Borderline personality disorder in adult F60.3 [facility] [address] [address]- 5584 Jun, [facility] [id number] [place] [address] 00923- 3100 Jun, [facility] [address] [address]- 3270 Jun, [facility] [id number] [place] [address] 75271- 1173 Jun, [facility] [address] [place] [address] 59993- 6220 Jun, [facility] [id number] [place] [address] 57397- 3270 Jun, Anxiety F41.9 [place] [id number] [place] [address] 14606- 5665 Jun, [facility] [address] [place] [address] 83926- 6154 Jun, [facility] [address] [place] [address] 49836- 5425 Jun, Type 2 diabetes mellitus with diabetic autonomic (poly) neuropathy E11.43 [place] [address] [place] [address] 59325- 1554 Jun, Severe episode of recurrent major depressive disorder, without psychotic features F33.2 ; Anxiety, generalized F41.1 and Borderline personality disorder in adult F60.3 [place] [address] [address]- 7245 Jun, Type 2 diabetes mellitus with diabetic autonomic (poly) neuropathy E11.43 and Chronic pain syndrome G89.4 [place] [address] [address]- 2813 May, Recent urinary tract infection Z87.440 ; Deliberate self- cutting Z72.89 ; Chest discomfort R07.89 ; BMI 40.0-44.9, adult Z68.41 and Worried well Z71.1 [place] [address] [address]- 4626 May, Severe episode of recurrent major depressive disorder, without psychotic features F33.2 ; Anxiety, generalized F41.1 and Borderline personality disorder in adult F60.3 [facility] [address] [address]- 8910 18 May, 2017 [facility] [id number] [place] [address] 83867- 1488 May, [facility] [address] [place] [address] 67840- 1918 May, Severe episode of recurrent major depressive disorder, without psychotic features F33.2 ; Anxiety, generalized F41.1 and Borderline personality disorder in adult F60.3 [facility] [address] [place] [address] 21923- 6871 12 May, 2017 Type 2 diabetes mellitus with diabetic autonomic (poly) neuropathy E11.43 [place] [id number] [place] [address] 61562- 3523 07 May, 2017 [place] [id number] [place] [address] 54659- 4549 May, Type 2 diabetes mellitus with diabetic autonomic (poly) neuropathy E11.43 ; Multiple neurological symptoms R29.90 ; Dysuria R30.0 ; Tobacco abuse Z72.0 ; Right hip pain M25.551 ; Anxiety F41.9 ; Gastritis determined by endoscopy K29.70 ; Chronic pain syndrome G89.4 ; Acute non- recurrent maxillary sinusitis J01.00 ; Self mutilating behavior Z72.89 and BMI 40.0-44.9, adult Z68.41 [place] [address] [place] [address] 87327- 7029 05 May, 2017 Severe episode of recurrent major depressive disorder, without psychotic features F33.2 ; Anxiety, generalized F41.1 and Borderline personality disorder in adult F60.3 [place] [address] [place] [address] 67861- 4614 Apr, [facility] [address] [place] [address] 09172- 4382 Apr, [facility] [id number] [address] Apr, [facility] [address] [place] [address] 98024 -7469 Apr, Aspiration pneumonia of right lower lobe, unspecified aspiration pneumonia type J69.0 [facility] [address] [place] [address] 59104- 9564 Apr, Severe episode of recurrent major depressive disorder, without psychotic features F33.2 ; Anxiety, generalized F41.1 and Borderline personality disorder in adult F60.3 [facility] [id number] [place] [address] 20527- 8209 Apr, [facility] [id number] [place] [address] 28422- 6259 Apr, Chronic pain syndrome G89.4 [facility] [id number] [place] [address] 14634- 4357 Apr, Severe episode of recurrent major depressive disorder, without psychotic features F33.2 ; Anxiety, generalized F41.1 and Borderline personality disorder in adult F60.3 [facility] [address] [place] [address] 02786- 4489 Apr, Severe episode of recurrent major depressive disorder, without psychotic features F33.2 ; Anxiety, generalized F41.1 and Borderline personality disorder in adult F60.3 [facility] [address] [place] [address] 45302- 3910 Apr, Closed nondisplaced fracture of third metatarsal bone of left foot with routine healing, subsequent encounter S92.335D ; Closed nondisplaced fracture of fourth metatarsal bone of left foot with routine healing, subsequent encounter S92.345D and Closed nondisplaced fracture of second metatarsal bone of left foot with routine healing, subsequent encounter S92.325D [facility] [address] [place] [address] 08692- 5730 Apr, [facility] [id number] [place] [address] 16881- 7044 Apr, [place] [address] [place] [address] 49088- 0028 14 Apr, 2017 [place] [id number] [place] [address] 23852- 6198 Apr, Screening breast examination Z12.31 [place] [id number] [place] [address] 15266- 7323 Apr, [place] [id number] [place] [address] 86365- 9078 Apr, Type 2 diabetes mellitus with diabetic autonomic (poly) neuropathy E11.43 [place] [id number] [place] [address] 88560- 4002 Apr, Severe episode of recurrent major depressive disorder, without psychotic features F33.2 ; Anxiety, generalized F41.1 and Borderline personality disorder in adult F60.[address] 63941- 6346 Apr, Type 2 diabetes mellitus with diabetic autonomic (poly) neuropathy E11.43 ; Chronic pain syndrome G89.4 and Anxiety F41.9 [facility] [place] [id number] [place] [address] 21733 -7634 Apr, BMI 45.0-49.9, adult Z68.42 [facility] [place] [address] [id number] [place] [address] 39790 -5915 Apr, Avulsion of toenail, initial encounter S91.209A and Acute non-recurrent maxillary sinusitis J01.00 [place] [id number] [place] [address] 46101- 1193 Apr, [place] [id number] [place] [address] 74394- 9729 Mar, [place] [id number] [place] [address] 99047- 6163 Mar, Severe episode of recurrent major depressive disorder, without psychotic features F33.2 ; Anxiety, generalized F41.1 and Borderline personality disorder in adult F60.3 [facility] [address] [address]- 5420 Mar, [facility] [address] [place] [address] 48907- 3998 Mar, [facility] [address] [place] [address] 22186- 1204 Mar, [facility] [id number] [place] [address] 42181- 1327 Mar, Seizure disorder G40.909 [facility] [id number] [place] [address] 96736- 4121 Mar, [facility] [address] [place] [address] 13354- 4626 Mar, [facility] [address] [place] [address] 52703 -1009 Mar, Left foot pain M79.672 ; Stage 3 chronic kidney disease N18.3 and Closed nondisplaced fracture of second metatarsal bone of left foot, initial encounter S92.325A [place] [address] [place] [address] 80084- 2989 Mar, Severe episode of recurrent major depressive disorder, without psychotic features F33.2 and Anxiety, generalized F41.1 [facility] [address] [place] [address] 61405- 6344 Mar, [facility] [address] [place] [address] 15882- 7835 Mar, Closed nondisplaced fracture of second metatarsal bone of left foot, initial encounter S92.325A and Closed nondisplaced fracture of third metatarsal bone of left foot, initial encounter S92.335A [facility] [address] [address]- 6046 Mar, Seizure disorder G40.909 [facility] [address] [address]- 3627 Mar, [facility] [id number] [place] [address] 64939- 0367 Mar, [facility] [id number] [place] [address] 33202- 5987 Mar, [facility] [id number] [place] [address] 49460- 6995 Mar, [facility] [id number] [place] [address] 09726- 3382 Mar, High risk sexual behavior Z72.51 [place] [id number] [place] [address] 63555- 7647 Mar, Severe episode of recurrent major depressive disorder, without psychotic features F33.2 and Anxiety, generalized F41.1 [place] [id number] [place] [address] 93796- 7377 Mar, Anxiety F41.9 and Type 2 diabetes mellitus with diabetic autonomic (poly)neuropathy E11.43 [place] [id number] [place] [address] 99563- 3199 Mar, Anxiety F41.9 [place] [id number] [place] [address] 85263- 1942 Mar, High risk sexual behavior Z72.51 [place] [id number] [place] [address] 19906- 1985 Mar, Chronic pain syndrome G89.4 [place] [id number] [place] [address] 31223- 8130 Mar, Type 2 diabetes mellitus with diabetic autonomic (poly) neuropathy E11.43 [facility] [id number] [place] [address] 09171- 5286 Mar, [facility] [id number] [place] [address] 04122- 9672 Mar, Closed nondisplaced fracture of second metatarsal bone of left foot, initial encounter S92.325A ; Chronic pain syndrome G89.4 ; Closed nondisplaced fracture of third metatarsal bone of left foot, initial encounter S92.335A ; Acute left ankle pain M25.572 and Type 2 diabetes mellitus with diabetic autonomic (poly)neuropathy E11.43 [facility] [id number] [place] [address] 85567- 9438 Mar, [facility] [address] 99089- 6008 Mar, [facility] [address] 61684- 3657 Mar, Severe episode of recurrent major depressive disorder, without psychotic features F33.2 and Anxiety, generalized F41.1 [facility] [id number] [place] [address] 76822- 6184 Feb, [facility] [address] 67683- 1270 Feb, Renal insufficiency N28.9 [facility] [id number] [place] [address] 87463- 9697 Feb, [facility] [id number] [place] [address] 82804- 3762 Feb, Severe episode of recurrent major depressive disorder, without psychotic features F33.2 and Anxiety, generalized F41.1 [facility] [id number] [place] [address] 64393- 8914 Feb, [facility] [id number] [place] [address] 89981- 9417 Feb, [facility] [id number] [place] [address] 56982- 2518 Feb, Renal insufficiency N28.9 [facility] [id number] [place] [address] 08001- 8166 Feb, [facility] [address] 83281 -9131 18 Feb, 2017 [facility] [address] [address] 3599 14 Feb, 2017 [facility] [id number] [place] [address] 68055- 8412 13 Feb, 2017 Severe episode of recurrent major depressive disorder, without psychotic features F33.2 and Anxiety, generalized F41.1 [facility] [address] [place] [address] 62476- 5704 13 Feb, 2017 Closed nondisplaced fracture of second metatarsal bone of left foot, initial encounter S92.325A ; Chronic pain syndrome G89.4 ; Closed nondisplaced fracture of third metatarsal bone of left foot, initial encounter S92.335A ; Left hip pain M25.552 and Stage 3 chronic kidney disease N18.3 [place] [id number] [place] [address] 04392- 8319 07 Feb, 2017 [facility] [id number] [place] [address] 83178- 2903 Feb, [facility] [id number] [place] [address] 83059- 6204 Feb, Closed nondisplaced fracture of second metatarsal bone of left foot, initial encounter S92.325A and Closed nondisplaced fracture of third metatarsal bone of left foot, initial encounter S92.335A [facility] [address] [address]- 5930 Feb, [facility] [address] [id number] [address] 2542 Feb, Anxiety F41.9 [facility] [id number] [place] [address] 66510- 4263 Feb, [facility] [id number] [place] [address] 06710- 4987 Feb, Chronic pain syndrome G89.4 [facility] [id number] [place] [address] 28120- 5865 Feb, Left foot pain M79.672 ; Closed nondisplaced fracture of second metatarsal bone of left foot, initial encounter S92.325A ; Closed nondisplaced fracture of third metatarsal bone of left foot, initial encounter S92.335A and Oral infection K12.2 [place] [address] [place] [address] 39897- 5116 Feb, [place] [id number] [place] [address] 61888- 6026 Jan, [place] [id number] [place] [address] 51734- 7844 Jan, Type 2 diabetes mellitus with diabetic autonomic (poly) neuropathy E11.43 and Congestive heart failure, unspecified congestive heart failure chronicity, unspecified congestive heart failure type I50.9 [place] [id number] [place] [address] 13624- 8438 Jan, Congestive heart failure, unspecified congestive heart failure chronicity, unspecified congestive heart failure type I50.9 and Stage 3 chronic kidney disease N18.3 [place] [id number] [place] [address] 60110- 8519 Jan, Stage 3 chronic kidney disease N18.3 ; Edema of both legs R60.0 ; Chronic congestive heart failure, unspecified congestive heart failure type I50.9 ; Acute low back pain without sciatica, unspecified back pain laterality M54.5 ; Chronic nausea R11.0 and Primary insomnia F51.01 [place] [id number] [place] [address] 23069- 2409 Jan, Severe episode of recurrent major depressive disorder, without psychotic features F33.2 and Anxiety, generalized F41.1 [place] [id number] [place] [address] 32042- 8216 Jan, [place] [id number] [place] [address] 59983- 2000 Jan, [place] [id number] [place] [address] 62771- 0500 Jan, [facility] [id number] [place] [address] 51179- 8676 Jan, [facility] [id number] [place] [address] 33558- 1739 Jan, Anxiety F41.9 and Severe episode of recurrent major depressive disorder, without psychotic features F33.2 [place] [id number] [place] [address] 98810- 9880 Jan, Type 2 diabetes mellitus with diabetic autonomic (poly) neuropathy E11.43 [place] [id number] [place] [address] 13739- 0748 Jan, Severe episode of recurrent major depressive disorder, without psychotic features F33.2 and Type 2 diabetes mellitus with diabetic autonomic (poly)neuropathy E11.43 [place] [id number] [place] [address] 32741- 8579 Jan, [place] [id number] [place] [address] 85702- 2159 Jan, [place] [id number] [place] [address] 20018- 5373 Jan, Stage 3 chronic kidney disease N18.3 ; Seizure disorder G40.909 ; Edema of both legs R60.0 and Blister (nonthermal), right foot, initial encounter S90.821A [place] [id number] [place] [address] 65854- 8137 Jan, Severe episode of recurrent major depressive disorder, without psychotic features F33.2 and Anxiety, generalized F41.1 [place] [id number] [place] [address] 74849- 1315 Jan, Severe episode of recurrent major depressive disorder, without psychotic features F33.2 and Anxiety, generalized F41.1 [place] [id number] [place] [address] 63807- 0654 Jan, [place] [id number] [place] [address] 09091- 6382 Jan, Anxiety F41.9 and Primary insomnia F51.01 [place] [id number] [place] [address] 26484- 0404 Jan, Type 2 diabetes mellitus with diabetic autonomic (poly) neuropathy E11.43 ; snf current use of insulin Z79.4 ; Stage 3 chronic kidney disease N18.3 ; Chronic pain syndrome G89.4 ; Swelling of mandible R22.0 and Seizure disorder G40.909 [place] [id number] [place] [address] 21751- 7508 Jan, [place] [id number] [place] [address] 87210- 8976 Jan, [place] [id number] [place] [address] 45952- 5240 Dec, Severe episode of recurrent major depressive disorder, without psychotic features F33.2 and Anxiety, generalized F41.1 [place] [id number] [place] [address] 45255- 2873 Dec, Diarrhea, unspecified type R19.7 ; Gastritis determined by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
--- OUTSIDE RECORDS SUMMARY | 2017-12-04 21:08 | XMS REPORT ---
Author Author MIRZA MARTINO Organization [facility] [place] Address [address] [place] [address] Care Team Providers Care Lsat Instructor Name Role Phone HAIMLindsey MIRZA Unavailable PROBLEMS Type Condition ICD9-CM Code HXM35-MM Code Onset Dates Condition Status SNOMED Code Problem Postural hypotension I95.1 Active 37139382 Problem Seizure disorder G40.909 Active 441823867 Problem Seasonal allergic rhinitis, unspecified allergic rhinitis trigger J30.2 Active 801289591 Problem Closed nondisplaced fracture of second metatarsal bone of left foot, initial encounter S92.325A Active 78997231 Problem Essential hypertension I10 Active 35194902 Problem Multiple neurological symptoms R29.90 Active 250201726 Problem Port catheter in place Z95.828 Active 433602835 Problem Stage 3 chronic kidney disease N18.3 Active 344120048 Problem Gastritis determined by endoscopy K29.70 Active 4702013 Problem Self-inflicted injury Z72.89 Active 514058249 Problem Borderline personality disorder in adult F60.3 Active 15017860 Problem Chronic congestive heart failure, unspecified congestive heart failure type I50.9 Active 35469049 Problem Chronic pain syndrome G89.4 Active 152758873 Problem Primary insomnia F51.01 Active 0031047 Problem Acquired hypothyroidism E03.9 Active 884269844 Problem Gastroparesis K31.84 Active 169357066 Problem Severe episode of recurrent major depressive disorder, without psychotic features F33.2 Active 67043249 Problem Anxiety, generalized F41.1 Active 17574663 Problem 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 Active 778644853 Problem Type 2 diabetes mellitus with diabetic polyneuropathy E11.42 Active 28156663 Problem Tobacco abuse Z72.0 Active 185034213 Problem Noncompliance with diabetes treatment Z91.19 Active [id number] ALLERGIES No Information ENCOUNTERS Encounter Location Date Diagnosis [facility] [place] [address], [place] [address] October, [facility] [place] [address], [place] [address] October, [facility] [place] [id number] [place] [address]730[address] October, [facility] [address] [id number] Sep, [facility] [place] [id number] [place] [address] 06396- 8087 Sep, [facility] [place] [id number] [place] [address] 58686- 9328 Sep, [facility] [place] [id number] [place] [address] 51045- 6212 Sep, Throat pain R07.0 ; BMI 40.0-44.9, adult Z68.41 and Chronic pain syndrome G89.4 [facility] [place] [id number] [place] [address] 99810- 2581 Sep, [facility] [place] [id number] [place] [address] 92666- 3532 Sep, [facility] [place] [id number] [place] [address] 17535- 6127 Sep, [facility] [place] [id number] [place] [address] 92834- 0434 Sep, Anxiety, generalized F41.1 [facility] [place] [address], [place] [address] Sep, [facility] [place] [address] [place] [address] 74156- 7306 Sep, Stage 3 chronic kidney disease N18.3 [facility] [place] [address], [place] [address] Sep, Stage 3 chronic kidney disease N18.3 and Chronic pain syndrome G89.4 [facility] [place] [address] [address] Sep, Severe episode of recurrent major depressive disorder, without psychotic features F33.2 ; Anxiety, generalized F41.1 and Borderline personality disorder in adult F60.3 [facility] [place] [id number] [place] [address] 08603- 0445 Sep, Chronic pain syndrome G89.4 ; Anxiety, generalized F41.1 and BMI 45.0-49.9, adult Z68.42 [facility] [place] [id number] [place] [address] 40860- 3013 Sep, [facility] [place] [id number] [place] [address] 87311- 4720 Sep, [facility] [place] [id number] [place] [address] 34739- 9785 Sep, Severe episode of recurrent major depressive disorder, without psychotic features F33.2 ; Anxiety, generalized F41.1 and Borderline personality disorder in adult F60.3 [facility] [place] [id number] [place] [address] 10945- 6038 Sep, [facility] [id number] [place] [address] 08457 -6104 Aug, Dysuria R30.0 ; Type 2 diabetes mellitus with diabetic polyneuropathy E11.42 ; Oral abscess K12.2 and BMI 40.0-44.9, adult Z68.41 [facility] [place] [id number] [place] [address] 64771- 7535 30 Aug, 2017 [facility] [place] [id number] [place] [address] 23758- 6386 Aug, [facility] [place] [id number] [place] [address] 22627- 8337 Aug, [facility] [place] [id number] [place] [address] 13557- 3831 Aug, [facility] [place] [id number] [place] [address] 99648- 7253 27 Aug, 2017 Severe episode of recurrent major depressive disorder, without psychotic features F33.2 ; Anxiety, generalized F41.1 and Borderline personality disorder in adult F60.3 [place] [id number] [place] [address] 46159- 7304 22 Aug, 2017 [facility] [place] [id number] [place] [address] 54764- 4879 20 Aug, 2017 [place] [id number] [place] [address] 51450- 6563 19 Aug, 2017 Severe episode of recurrent major depressive disorder, without psychotic features F33.2 ; Anxiety, generalized F41.1 and Borderline personality disorder in adult F60.3 [facility] [id number] [place] [address] 02169 -0128 17 Aug, 2017 [place] [id number] [place] [address] 93661- 9151 15 Aug, 2017 [place] [id number] [place] [address] 39193- 4686 14 Aug, 2017 [facility] [id number] [place] [address] 12265 -4106 14 Aug, 2017 Dysuria R30.0 ; Dental infection K04.7 ; Acute cystitis with hematuria N30.01 and BMI 45.0-49.9, adult Z68.42 [place] [id number] [place] [address] 69190- 0288 14 Aug, 2017 Severe episode of recurrent major depressive disorder, without psychotic features F33.2 ; Anxiety, generalized F41.1 and Borderline personality disorder in adult F60.3 [place] [id number] [place] [address] 13787- 7946 09 Aug, 2017 [place] [id number] [place] [address] 10809- 0291 08 Aug, 2017 Closed nondisplaced fracture of second metatarsal bone of left foot, initial encounter S92.325A and Chronic pain syndrome G89.4 [place] [address], [place] [address] 08 Aug, 2017 Type 2 diabetes mellitus with diabetic polyneuropathy E11.42 [facility] [place] [address], [place] [address] 08 Aug, 2017 Severe episode of recurrent major depressive disorder, without psychotic features F33.2 ; Anxiety, generalized F41.1 and Borderline personality disorder in adult F60.3 [facility] [place] [address], [place] [address] 5268 07 Aug, 2017 [facility] [place] [address], [place] [address] 1746 Aug, [facility] [place] [address], [place] [address] 53[address] Aug, [facility] [place] [address], [place] [address] 3896 Aug, [facility] [place] [address], [place] [address] 8659 Aug, [facility] [place] [address], [place] [address] 95[address] Jul, [facility] [place] [address], [place] [address] 4388 Jul, [facility] [place] [id number], [place] [address] 8537 Jul, Severe episode of recurrent major depressive disorder, without psychotic features F33.2 ; Anxiety, generalized F41.1 and Borderline personality disorder in adult F60.3 [facility] [place] [id number], [place] [address] 2527 Jul, Type 2 diabetes mellitus with diabetic polyneuropathy E11.42 [facility] [place] [id number], [place] [address] 6936 Jul, Closed nondisplaced fracture of second metatarsal bone of left foot, initial encounter S92.325A and Closed nondisplaced fracture of third metatarsal bone of left foot, initial encounter S92.335A [place] [id number] [place] [address] 41752- 3034 Jul, [facility] [place] [id number] [place] [address] 39293- 5983 20 Jul, 2017 Closed nondisplaced fracture of second metatarsal bone of left foot, initial encounter S92.325A ; Acute left ankle pain M25.572 ; Acute midline low back pain without sciatica M54.5 and Seasonal allergic rhinitis, unspecified allergic rhinitis trigger J30.2 [place] [id number] [place] [address] 79836- 3621 Jul, [place] [id number] [place] [address] 78770- 1544 19 Jul, 2017 [place] [id number] [place] [address] 57393- 9446 15 Jul, 2017 [place] [id number] [place] [address] 23971- 5547 15 Jul, 2017 Frequent falls R29.6 [place] [id number] [place] [address] 03375- 6449 14 Jul, 2017 Frequent falls R29.6 [place] [id number] [place] [address] 10619- 9732 07 Jul, 2017 Severe episode of recurrent major depressive disorder, without psychotic features F33.2 ; Anxiety, generalized F41.1 and Borderline personality disorder in adult F60.3 [place] [address] [place] [address] 26635- 4905 07 Jul, 2017 Chronic pain syndrome G89.4 [place] [id number] [place] [address] 04411- 4762 07 Jul, 2017 [facility] current use of insulin Z79.4 [place] [id number] [place] [address] 44286- 9896 Jul, [place] [id number] [place] [address] 69162- 1017 Jul, Type 2 diabetes mellitus with diabetic polyneuropathy E11.42 [place] [id number] [place] [address] 99187- 5677 Jun, 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 and Thrush B37.0 [place] [address] 61364- 3696 Jun, Severe episode of recurrent major depressive disorder, without psychotic features F33.2 ; Anxiety, generalized F41.1 and Borderline personality disorder in adult F60.3 [place] [address] 27900- 0492 Jun, Severe episode of recurrent major depressive disorder, without psychotic features F33.2 ; Anxiety, generalized F41.1 and Borderline personality disorder in adult F60.3 [place] [address] 82003- 4591 Jun, Frequent falls R29.6 ; Bronchitis J40 ; BMI 40.0-44.9, adult Z68.41 and Coccygeal pain, acute M53.3 [place] [id number] [place] [address] 68514- 1321 Jun, [facility] [id number] [place] [address] 03737 -4921 Jun, [facility] [place] [address] 77993- 0785 Jun, [place] [id number] [place] [address] 03570- 2272 Jun, Dental caries, unspecified K02.9 [place] [id number] [place] [address] 79205- 8031 Jun, Acute non-recurrent maxillary sinusitis J01.00 and BMI 40.0- 44.9, adult Z68.41 [place] [address], [place] [address]- 3208 Jun, [facility] [place] [id number] [place] [address] 49524- 0143 Jun, Severe episode of recurrent major depressive disorder, without psychotic features F33.2 ; Anxiety, generalized F41.1 and Borderline personality disorder in adult F60.3 [facility] [place] [address] [place] [address] 35742- 4372 Jun, Closed nondisplaced fracture of third metatarsal bone of left foot with routine healing, subsequent encounter S92.335D ; Closed nondisplaced fracture of second metatarsal bone of left foot with routine healing, subsequent encounter S92.325D and Closed nondisplaced fracture of fourth metatarsal bone of left foot with routine healing, subsequent encounter S92.345D [facility] [place] [address], [place] [address]- 2937 11 Jun, 2017 Severe episode of recurrent major depressive disorder, without psychotic features F33.2 ; Anxiety, generalized F41.1 and Borderline personality disorder in adult F60.3 [facility] [place] [address], [place] [address]- 8097 Jun, [facility] [place] [id number] [place] [address] 56159- 9054 Jun, [facility] [place] [address], [place] [address]- 7859 Jun, [facility] [place] [address] [place] [address] 21556- 7792 Jun, [facility] [place] [address], [place] [address]- 5151 Jun, [facility] [place] [id number] [place] [address] 81991- 9685 Jun, Anxiety F41.9 [facility] [place] [address], [place] [address]- 4192 Jun, [facility] [place] [address] [place] [address] 07024- 7930 Jun, [place] [id number] [place] [address] 76911- 6566 Jun, Type 2 diabetes mellitus with diabetic autonomic (poly) neuropathy E11.43 [place] [id number] [place] [address] 68245- 4993 Jun, Severe episode of recurrent major depressive disorder, without psychotic features F33.2 ; Anxiety, generalized F41.1 and Borderline personality disorder in adult F60.3 [place] [id number] [place] [address] 58059- 8573 Jun, Type 2 diabetes mellitus with diabetic autonomic (poly) neuropathy E11.43 and Chronic pain syndrome G89.4 [place] [id number] [place] [address] 43899- 9223 20 May, 2017 Recent urinary tract infection Z87.440 ; Deliberate self- cutting Z72.89 ; Chest discomfort R07.89 ; BMI 40.0-44.9, adult Z68.41 and Worried well Z71.1 [place] [id number] [place] [address] 20226- 0580 19 May, 2017 Severe episode of recurrent major depressive disorder, without psychotic features F33.2 ; Anxiety, generalized F41.1 and Borderline personality disorder in adult F60.3 [place] [address] [place] [address] 45996- 1319 18 May, 2017 [place] [id number] [place] [address] 56267- 3050 May, [place] [id number] [place] [address] 63693- 8676 May, Type 2 diabetes mellitus with diabetic autonomic (poly) neuropathy E11.43 [place] [address] [place] [address] 53900- 0855 May, Severe episode of recurrent major depressive disorder, without psychotic features F33.2 ; Anxiety, generalized F41.1 and Borderline personality disorder in adult F60.3 [facility] [place] [id number] [place] [address] 23073- 5886 May, [place] [id number] [place] [address] 76329- 3949 May, Type 2 diabetes mellitus with diabetic autonomic (poly) neuropathy E11.43 ; Multiple neurological symptoms R29.90 ; Dysuria R30.0 ; Tobacco abuse Z72.0 ; Right hip pain M25.551 ; Anxiety F41.9 ; Gastritis determined by endoscopy K29.70 ; Chronic pain syndrome G89.4 ; Acute non- recurrent maxillary sinusitis J01.00 ; Self mutilating behavior Z72.89 and BMI 40.0-44.9, adult Z68.41 [place] [id number] [place] [address] 36841- 1783 May, Severe episode of recurrent major depressive disorder, without psychotic features F33.2 ; Anxiety, generalized F41.1 and Borderline personality disorder in adult F60.3 [place] [id number] [place] [address] 02508- 9154 Apr, [place] [address] 56173- 1651 Apr, [facility] [id number] [place] [address] 62112 -6982 Apr, [facility] [id number] [place] [address] 09504 -0637 Apr, Aspiration pneumonia of right lower lobe, unspecified aspiration pneumonia type J69.0 [place] [id number] [place] [address] 87435- 3236 Apr, Severe episode of recurrent major depressive disorder, without psychotic features F33.2 ; Anxiety, generalized F41.1 and Borderline personality disorder in adult F60.3 [place] [id number] [place] [address] 37104- 0799 Apr, [place] [address] [place] [address]- 1617 Apr, Chronic pain syndrome G89.4 [place] [address] 10541- 3729 Apr, Severe episode of recurrent major depressive disorder, without psychotic features F33.2 ; Anxiety, generalized F41.1 and Borderline personality disorder in adult F60.3 [place] [address] 67474- 5840 16 Apr, 2017 Severe episode of recurrent major depressive disorder, without psychotic features F33.2 ; Anxiety, generalized F41.1 and Borderline personality disorder in adult F60.3 [place] [address] 18814- 0284 16 Apr, 2017 Closed nondisplaced fracture of third metatarsal bone of left foot with routine healing, subsequent encounter S92.335D ; Closed nondisplaced fracture of fourth metatarsal bone of left foot with routine healing, subsequent encounter S92.345D and Closed nondisplaced fracture of second metatarsal bone of left foot with routine healing, subsequent encounter S92.325D [place] [id number] [place] [address] 90054- 6221 16 Apr, 2017 [place] [address] 03074- 1554 15 Apr, 2017 [place] [id number] [place] [address] 54159- 8582 14 Apr, 2017 [place] [address] 78053- 5499 13 Apr, 2017 Screening breast examination Z12.31 [place] [address] 55304- 2985 09 Apr, 2017 [place] [address] 98402- 4517 07 Apr, 2017 Type 2 diabetes mellitus with diabetic autonomic (poly) neuropathy E11.43 [place] [address] 39712- 0040 Apr, Severe episode of recurrent major depressive disorder, without psychotic features F33.2 ; Anxiety, generalized F41.1 and Borderline personality disorder in adult F60.3 [place] [address] 80696- 3385 Apr, Type 2 diabetes mellitus with diabetic autonomic (poly) neuropathy E11.43 ; Chronic pain syndrome G89.4 and Anxiety F41.9 [facility] [address] 50378 -8823 Apr, BMI 45.0-49.9, adult Z68.42 [facility] [address] 56761 -1685 Apr, Avulsion of toenail, initial encounter S91.209A and Acute non-recurrent maxillary sinusitis J01.00 [place] [address] 33378- 6842 Apr, [place] [address] 47967- 0346 Mar, [place] [address] 81162- 8034 Mar, Severe episode of recurrent major depressive disorder, without psychotic features F33.2 ; Anxiety, generalized F41.1 and Borderline personality disorder in adult F60.3 [place] [address] 48698- 0394 Mar, [place] [address] 91761- 8290 Mar, [place] [address] 19191- 8218 Mar, [place] [address] 71601- 3625 Mar, Seizure disorder G40.909 [place] [address] 46140- 3146 Mar, [facility] [place] [id number] [place] [phone] Mar, [facility] [address] [place] [id number] [place] [phone] Mar, Left foot pain M79.672 ; Stage 3 chronic kidney disease N18.3 and Closed nondisplaced fracture of second metatarsal bone of left foot, initial encounter S92.325A [facility] [place], [facility] [address] [place] [id number] [place] [address]- [address] Mar, Severe episode of recurrent major depressive disorder, without psychotic features F33.2 and Anxiety, generalized F41.1 [place] [address] [place] [id number] [place] [phone] Mar, [facility] [place] [address] [place] [id number] [place] [place] [address] 25804- 4571 Mar, Closed nondisplaced fracture of second metatarsal bone of left foot, initial encounter S92.325A and Closed nondisplaced fracture of third metatarsal bone of left foot, initial encounter S92.335A [place] [id number] [place] [address] 07283- 0818 Mar, Seizure disorder G40.909 [facility] [place] [id number] [place] [address] 03168- 2606 Mar, [facility] [place] [id number] [place] [address] 04621- 0052 Mar, [facility] [place] [id number] [place] [address] 33910- 6860 Mar, [facility] [place] [id number] [place] [address] 66741- 0890 Mar, [facility] [place] [id number] [place] [address] 59904- 8966 Mar, High risk sexual behavior Z72.51 [facility] [place] [id number] [place] [address] 00783- 3911 Mar, Severe episode of recurrent major depressive disorder, without psychotic features F33.2 and Anxiety, generalized F41.1 [place] [id number] [place] [address] 90903- 4255 Mar, Anxiety F41.9 and Type 2 diabetes mellitus with diabetic autonomic (poly)neuropathy E11.43 [place] [id number] [place] [address] 93734- 7584 Mar, Anxiety F41.9 [place] [id number] [place] [address] 83334- 8041 Mar, High risk sexual behavior Z72.51 [place] [id number] [place] [address] 57287- 7873 Mar, Chronic pain syndrome G89.4 [place] [id number] [place] [address] 46651- 1653 Mar, Type 2 diabetes mellitus with diabetic autonomic (poly) neuropathy E11.43 [place] [id number] [place] [address] 55215- 2561 Mar, [place] [id number] [place] [address] 71175- 1255 Mar, Closed nondisplaced fracture of second metatarsal bone of left foot, initial encounter S92.325A ; Chronic pain syndrome G89.4 ; Closed nondisplaced fracture of third metatarsal bone of left foot, initial encounter S92.335A ; Acute left ankle pain M25.572 and Type 2 diabetes mellitus with diabetic autonomic (poly)neuropathy E11.43 [place] [id number] [place] [address] 57414- 5432 Mar, [place] [id number] [place] [address] 05358- 1875 Mar, [place] [id number] [place] [address] 86895- 4324 Mar, Severe episode of recurrent major depressive disorder, without psychotic features F33.2 and Anxiety, generalized F41.1 [facility] [place] [id number] [place] [address] 68436- 0179 27 Feb, 2017 [facility] [place] [id number] [place] [address] 81543- 9244 26 Feb, 2017 Renal insufficiency N28.9 [facility] [place] [id number] [place] [address] 01118- 7327 26 Feb, 2017 [facility] [place] [id number] [place] [address] 02970- 3170 26 Feb, 2017 Severe episode of recurrent major depressive disorder, without psychotic features F33.2 and Anxiety, generalized F41.1 [facility] [place] [id number] [place] [address] 11155- 1606 25 Feb, 2017 [facility] [place] [id number] [place] [address] 01477- 6344 22 Feb, 2017 [facility] [place] [id number] [place] [address] 60656- 9603 20 Feb, 2017 Renal insufficiency N28.9 [facility] [place] [id number] [place] [address] 63817- 0648 19 Feb, 2017 [facility] [id number] [place] [address] 83977 -5411 18 Feb, 2017 [facility] [place] [id number] [place] [address] 99686- 1839 14 Feb, 2017 [facility] [place] [id number] [place] [address] 58863- 3141 13 Feb, 2017 Severe episode of recurrent major depressive disorder, without psychotic features F33.2 and Anxiety, generalized F41.1 [facility] [place] [id number] [place] [address] 93099- 3829 13 Feb, 2017 Closed nondisplaced fracture of second metatarsal bone of left foot, initial encounter S92.325A ; Chronic pain syndrome G89.4 ; Closed nondisplaced fracture of third metatarsal bone of left foot, initial encounter S92.335A ; Left hip pain M25.552 and Stage 3 chronic kidney disease N18.3 [facility] [place] [id number] [place] [address] 26800- 9101 Feb, [facility] [place] [id number] [place] [address] 15000- 1391 Feb, [facility] [place] [id number] [place] [address] 85360- 4266 Feb, Closed nondisplaced fracture of second metatarsal bone of left foot, initial encounter S92.325A and Closed nondisplaced fracture of third metatarsal bone of left foot, initial encounter S92.335A [facility] [place] [id number] [place] [address] 01724- 6314 Feb, [facility] [place] [id number] [place] [address] 79874- 4413 Feb, Anxiety F41.9 [facility] [place] [id number] [place] [address] 80641- 1809 Feb, [facility] [place] [id number] [place] [address] 94602- 3008 Feb, Chronic pain syndrome G89.4 [facility] [place] [id number] [place] [address] 38783- 7403 Feb, Left foot pain M79.672 ; Closed nondisplaced fracture of second metatarsal bone of left foot, initial encounter S92.325A ; Closed nondisplaced fracture of third metatarsal bone of left foot, initial encounter S92.335A and Oral infection K12.2 [facility] [place] [id number] [place] [address] 33174- 2146 Feb, [facility] [place] [id number] [place] [address] 23750- 3824 Jan, [facility] [place] [id number] [place] [address] 01292- 3842 Jan, Type 2 diabetes mellitus with diabetic autonomic (poly) neuropathy E11.43 and Congestive heart failure, unspecified congestive heart failure chronicity, unspecified congestive heart failure type I50.9 [place] [id number] [place] [address] 63011- 4849 Jan, Congestive heart failure, unspecified congestive heart failure chronicity, unspecified congestive heart failure type I50.9 and Stage 3 chronic kidney disease N18.3 [place] [address] 78000- 7757 Jan, Stage 3 chronic kidney disease N18.3 ; Edema of both legs R60.0 ; Chronic congestive heart failure, unspecified congestive heart failure type I50.9 ; Acute low back pain without sciatica, unspecified back pain laterality M54.5 ; Chronic nausea R11.0 and Primary insomnia F51.01 [place] [id number] [place] [address] 25068- 0297 Jan, Severe episode of recurrent major depressive disorder, without psychotic features F33.2 and Anxiety, generalized F41.1 [place] [id number] [place] [address] 94984- 8473 Jan, [place] [id number] [place] [address] 04146- 7329 Jan, [place] [id number] [place] [address] 02107- 3602 Jan, [place] [id number] [place] [address] 83274- 4473 Jan, [place] [id number] [place] [address] 00283- 7945 Jan, Anxiety F41.9 and Severe episode of recurrent major depressive disorder, without psychotic features F33.2 [place] [id number] [place] [address] 37165- 3562 Jan, Type 2 diabetes mellitus with diabetic autonomic (poly) neuropathy E11.43 [place] [id number] [place] [address] 98580- 8837 Jan, Severe episode of recurrent major depressive disorder, without psychotic features F33.2 and Type 2 diabetes mellitus with diabetic autonomic (poly)neuropathy E11.43 [place] [id number] [place] [address] 82782- 2358 Jan, [place] [id number] [place] [address] 91346- 5043 Jan, [place] [address] 86386- 3048 Jan, Stage 3 chronic kidney disease N18.3 ; Seizure disorder G40.909 ; Edema of both legs R60.0 and Blister (nonthermal), right foot, initial encounter S90.821A [place] [id number] [place] [address] 79488- 1310 Jan, Severe episode of recurrent major depressive disorder, without psychotic features F33.2 and Anxiety, generalized F41.1 [place] [address] 23685- 6564 Jan, Severe episode of recurrent major depressive disorder, without psychotic features F33.2 and Anxiety, generalized F41.1 [place] [id number] [place] [address] 24446- 4680 Jan, [place] [id number] [place] [address] 98690- 0773 Jan, Anxiety F41.9 and Primary insomnia F51.01 [place] [id number] [place] [address] 61122- 0147 Jan, Type 2 diabetes mellitus with diabetic autonomic (poly) neuropathy E11.43 ; [facility] current use of insulin Z79.4 ; Stage 3 chronic kidney disease N18.3 ; Chronic pain syndrome G89.4 ; Swelling of mandible R22.0 and Seizure disorder G40.909 [place] [id number] [place] [address] 84085- 2906 Jan, [place] [address] [place] [address] [place] [address]- 2587 Jan, [place] [id number] [place] [address] 26222- 9641 Dec, Severe episode of recurrent major depressive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
[2017-12-04] MEDS ORDERED: LIDOCAINE 2% VISCOUS 15 ML UDC PO ONE (21:15)
[2017-12-04] MEDS ORDERED: ANTACID SUSP 30 ML UDC (MYLANTA) PO ONE (21:15)
[2017-12-04 21:18] LABS: BASOPHILS # (AUTO) 0.1 10^3/uL (0.0-0.1); BASOPHILS % (AUTO) 1 % (0-10); EOSINOPHILS # (AUTO) 0.3 10^3/uL (0.0-0.3); EOSINOPHILS % (AUTO) 4 % (0-10); HEMATOCRIT 34 % (35-52); HEMOGLOBIN 11.1 G/DL (11.5-16.0); LYMPHOCYTES # (AUTO) 2.6 X 10^3 (1.0-4.0); LYMPHOCYTES % (AUTO) 31 % (12-44); MEAN CORPUSCULAR HEMOGLOBIN 30 PG (25-34); MEAN CORPUSCULAR HGB CONC 33 G/DL (32-36); MEAN CORPUSCULAR VOLUME 90 FL (80-99); MEAN PLATELET VOLUME 10.3 FL (7.4-10.4); MONOCYTES # (AUTO) 0.5 X 10^3 (0.0-1.0); MONOCYTES % (AUTO) 6 % (0-12); NEUTROPHILS # (AUTO) 4.9 X 10^3 (1.8-7.8); NEUTROPHILS % (AUTO) 59 % (42-75); PLATELET COUNT 226 10^3/uL (130-400); RED BLOOD COUNT 3.73 10^6/uL (4.35-5.85); RED CELL DISTRIBUTION WIDTH 12.9 % (10.0-14.5); WHITE BLOOD COUNT 8.4 10^3/uL (4.3-11.0)
[2017-12-04] MEDS ORDERED: cefTRIAXone INJECTION 1,000 MG in NS (IVPB) 50 ML IV ONE (21:30)
[2017-12-04 21:39] LABS: ALANINE AMINOTRANSFERASE 26 U/L (0-55); ALBUMIN 3.5 GM/DL (3.2-4.5); ALKALINE PHOSPHATASE 101 U/L (40-136); BILIRUBIN,TOTAL 0.4 MG/DL (0.1-1.0); BUN/CREATININE RATIO 11; CALCIUM 8.6 MG/DL (8.5-10.1); CARBON DIOXIDE 18 MMOL/L (21-32); CHLORIDE 101 MMOL/L (98-107); CREATININE SERUM 1.03 MG/DL (0.60-1.30); GFR ESTIMATED 57; LIPASE 15 U/L (8-78); MAGNESIUM 1.9 MG/DL (1.8-2.4); POTASSIUM 4.4 MMOL/L (3.6-5.0); SODIUM 133 MMOL/L (135-145); TOTAL PROTEIN 6.4 GM/DL (6.4-8.2)
[2017-12-04 21:53] LABS: GLUCOSE 479 MG/DL (70-105)
--- NOTE | 2017-12-04 22:23 | Diagnostic Imaging Report ---
INDICATION: Hyperglycemia, shortness of breath.. TECHNIQUE: Single view chest at 9:51 PM. CORRELATION STUDY: 07/19/2017 FINDINGS: Left subclavian Infusaport catheter tip projects over the SVC. Heart size is enlarged, a change from prior study. Vasculature within normal limits. Lung devries overall are clear. Asymmetrical elevation of the right diaphragm present. IMPRESSION: 1. Cardiac enlargement, a change from the prior study, but without evidence for overt failure. Dictated by: Dictated on workstation # [id number]
[2017-12-04 22:50] LABS: BILIRUBIN,URINE NEGATIVE (NEGATIVE); CLARITY,URINE CLEAR; COLOR,URINE YELLOW; GLUCOSE, URINE (UA) 4+ (NEGATIVE); KETONES,URINE NEGATIVE (NEGATIVE); LEUKOCYTE ESTERASE ,URINE NEGATIVE (NEGATIVE); NITRITE,URINE NEGATIVE (NEGATIVE); PH,URINE 5 (5-9); PROTEIN,URINE 1+ (NEGATIVE); UROBILINOGEN,URINE NORMAL (NORMAL)
[2017-12-04 22:53] LABS: INR 1.1 (0.8-1.4); PROTHROMBIN TIME PATIENT 14.2 SEC (12.2-14.7)
[2017-12-04 23:00] LABS: BACTERIA,URINE NEGATIVE /HPF; WBC,URINE RARE /HPF
[2017-12-04 23:03] LABS: AMPHETAMINE SCREEN, URINE NEGATIVE (NEGATIVE); BARBITURATE SCREEN URINE NEGATIVE (NEGATIVE); BENZODIAZEPINES SCREEN URINE POSITIVE (NEGATIVE); CANNABINOID SCREEN, URINE NEGATIVE (NEGATIVE); COCAINE SCREEN URINE NEGATIVE (NEGATIVE); HCG,QUALITATIVE URINE NEGATIVE (NEGATIVE); METHADONE STAT NEGATIVE (NEGATIVE); METHAMPHETAMINE SCREEN URINE S NEGATIVE (NEGATIVE); OPIATE SCREEN URINE POSITIVE (NEGATIVE); OXYCODONE STAT POSITIVE (NEGATIVE); TRICYCLIC ANTIDEPRESSANTS SCRE POSITIVE (NEGATIVE)
[2017-12-04 23:04] LABS: PROPOXYPHENE STAT NEGATIVE (NEGATIVE)
[2017-12-05] VITALS (13 sets, daily range): BP systolic 97–130; BP diastolic 60–88
--- OUTSIDE RECORDS SUMMARY | 2017-12-05 00:04 | XMS REPORT | Clinical Summary ---
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 If you do not see the information that you expected, contact Release of Information in the Health Information Management department at [phone] for further assistance in locating additional records.[facility] Allergies Not on File Current Medications Not [...]
[2017-12-05] MEDS ORDERED: oxyCODONE/APAP 5/325MG (PERCOCET 5) TABLET PO PRN (01:00)
[2017-12-05] MEDS ORDERED: NS IV 1000 ML 3,197.82 ML IV PRN (01:00)
[2017-12-05] MEDS ORDERED: LORazepam 0.5 MG (ATIVAN) TABLET PO PRN (01:00)
[2017-12-05] MEDS: NS IV 1000 ML 1,000 ML IV SCH ×2 (02:45→04:55)
[2017-12-05] MEDS: NS W/KCL 20 MEQ/L 1,000 ML IV SCH ×4 (02:46→15:47)
[2017-12-05 03:57] LABS: BASOPHILS % (AUTO) 0 % (0-10); EOSINOPHILS # (AUTO) 0.2 10^3/uL (0.0-0.3); EOSINOPHILS % (AUTO) 3 % (0-10); HEMATOCRIT 31 % (35-52); HEMOGLOBIN 10.2 G/DL (11.5-16.0); LYMPHOCYTES # (AUTO) 1.8 X 10^3 (1.0-4.0); LYMPHOCYTES % (AUTO) 27 % (12-44); MEAN CORPUSCULAR HEMOGLOBIN 30 PG (25-34); MEAN CORPUSCULAR HGB CONC 33 G/DL (32-36); MEAN CORPUSCULAR VOLUME 92 FL (80-99); MEAN PLATELET VOLUME 10.3 FL (7.4-10.4); MONOCYTES # (AUTO) 0.5 X 10^3 (0.0-1.0); MONOCYTES % (AUTO) 7 % (0-12); NEUTROPHILS # (AUTO) 4.3 X 10^3 (1.8-7.8); NEUTROPHILS % (AUTO) 63 % (42-75); PLATELET COUNT 181 10^3/uL (130-400); RED BLOOD COUNT 3.35 10^6/uL (4.35-5.85); RED CELL DISTRIBUTION WIDTH 12.9 % (10.0-14.5); WHITE BLOOD COUNT 6.9 10^3/uL (4.3-11.0)
[2017-12-05 04:26] LABS: ALANINE AMINOTRANSFERASE 21 U/L (0-55); ALBUMIN 3.1 GM/DL (3.2-4.5); ALKALINE PHOSPHATASE 89 U/L (40-136); BILIRUBIN,TOTAL 0.3 MG/DL (0.1-1.0); BUN/CREATININE RATIO 13; CALCIUM 8.1 MG/DL (8.5-10.1); CARBON DIOXIDE 19 MMOL/L (21-32); CHLORIDE 107 MMOL/L (98-107); CREATININE SERUM 0.76 MG/DL (0.60-1.30); GFR ESTIMATED > 60; GLUCOSE 267 MG/DL (70-105); POTASSIUM 3.8 MMOL/L (3.6-5.0); SODIUM 139 MMOL/L (135-145); TOTAL PROTEIN 5.6 GM/DL (6.4-8.2)
[2017-12-05] MEDS: PROMETHAZINE INJ 25 MG/ML (PHENERGAN) AMP IV PRN ×2 (05:58→11:21)
--- NOTE | 2017-12-05 06:10 | Diagnostic Imaging Report ---
PROCEDURE: CT abdomen and pelvis without contrast. TECHNIQUE: Multiple contiguous axial images were obtained through the abdomen and pelvis without the use of intravenous contrast. INDICATION: Hyperglycemia and hypotension Comparison is made to study of 11/27/2017. No focal hepatic or splenic abnormality is identified. Gallbladder is surgically absent. Evaluation of the kidneys is limited without intravenous contrast, however, there is no evidence of adrenal gland or renal abnormality. No free fluid is seen in the abdomen or pelvis. Surgical changes in the anterior abdominal wall and within the pelvis, bilaterally. There is no evidence of organized fluid collection. There is no evidence of acute osseous abnormality. IMPRESSION: Surgical changes in the anterior abdominal wall and within the pelvis. There is no evidence of significant bowel hernia. No acute abnormality is detected. Dictated by: Dictated on workstation # [id number]
[2017-12-05] MEDS ORDERED: LEVOTHYROXINE 75 MCG (LEVOTHROID) TABLET PO SCH (06:30)
[2017-12-05] MEDS: inSUlin ASPART (NovoLOG) 1 UNIT/0.01 ML (CHARGE PER UNIT) SC SCH ×3 (07:00→15:55)
[2017-12-05] MEDS: NOREPINEPHRINE 4 MG in NS (IVPB) 250 ML IV SCH ×2 (07:04→14:15)
[2017-12-05] MEDS: inSUlin (REGULAR) HUMAN 1 UNIT/0.01 ML (CHARGE PER UNIT) SC SCH ×3 (07:55→16:25)
[2017-12-05] MEDS ORDERED: toPIRamate 25 MG (TOPAMAX) TAB PO SCH (09:00)
--- NOTE | 2017-12-05 10:12 | Progress Note (SOAP) ---
Subjective Review of Systems Date Seen by Provider: Dec 05, 2017 Time Seen by Provider: 15:45 Focused Exam Lactate Level 12/04/17 21:40: Lactic Acid Level 2.82*H 12/04/17 22:55: Lactic Acid Level 1.91 Time of Focused Exam: 23:49 Objective Exam Last Set of Vital Signs Vital Signs Date Time Temp Pulse Resp B/P (MAP) Pulse Ox O2 Delivery O2 Flow Rate FiO2 12/05/17 07:00 97.7 Room Air 12/05/17 07:00 78 12/05/17 06:00 8 97 Capillary Refill : Less Than 3 SecondsLess Than 3 Seconds Results/Procedures Lab Laboratory Tests 12/04/17 20:04: Glucometer 461*H 12/04/17 21:10: White Blood Count 8.4, Red Blood Count 3.73L, Hemoglobin 11.1L, Hematocrit 34L, Mean Corpuscular Volume 90, Mean Corpuscular Hemoglobin 30, Mean Corpuscular Hemoglobin Concent 33, Red Cell Distribution Width 12.9, Platelet Count 226, Mean Platelet Volume 10.3, Neutrophils (%) (Auto) 59, Lymphocytes (%) (Auto) 31 , Monocytes (%) (Auto) 6, Eosinophils (%) (Auto) 4, Basophils (%) (Auto) 1, Neutrophils # (Auto) 4.9, Lymphocytes # (Auto) 2.6, Monocytes # (Auto) 0.5, Eosinophils # (Auto) 0.3, Basophils # (Auto) 0.1, Sodium Level 133L, Potassium Level 4.4, Chloride Level 101, Carbon Dioxide Level 18L, Anion Gap 14, Blood Urea Nitrogen 11, Creatinine 1.03, Estimat Glomerular Filtration Rate 57, BUN/ Creatinine Ratio 11, Glucose Level 479*H, Calcium Level 8.6, Magnesium Level 1.9 , Total Bilirubin 0.4, Aspartate Amino Transf (AST/SGOT) 24, Alanine Aminotransferase (ALT/SGPT) 26, Alkaline Phosphatase 101, Troponin I < 0.30, Total Protein 6.4, Albumin 3.5, Lipase 15 12/04/17 21:40: Lactic Acid Level 2.82*H 12/04/17 22:15: Prothrombin Time 14.2, INR Comment 1.1, Activated Partial Thromboplast Time 24 12/04/17 22:28: Glucometer 303H 12/04/17 22:40: Urine Color YELLOW, Urine Clarity CLEAR, Urine pH 5, Urine Specific Marcellus 1.015L, Urine Protein 1+H, Urine Glucose (UA) 4+H, Urine Ketones NEGATIVE, Urine Nitrite NEGATIVE, Urine Bilirubin NEGATIVE, Urine Urobilinogen NORMAL, Urine Leukocyte Esterase NEGATIVE, Urine RBC (Auto) NEGATIVE, Urine RBC NONE, Urine WBC RARE, Urine Squamous Epithelial Cells 10-25H, Urine Crystals NONE, Urine Bacteria NEGATIVE, Urine Casts PRESENT, Urine Hyaline Casts 5-10H, Urine Mucus NEGATIVE, Urine Culture Indicated NO, Urine Test NEGATIVE, Urine Opiates Screen POSITIVEH, Urine Oxycodone Screen POSITIVEH, Urine Methadone Screen NEGATIVE, Urine Propoxyphene Screen NEGATIVE, Urine Barbiturates Screen NEGATIVE, Ur Tricyclic Antidepressants Screen POSITIVEH, Urine Phencyclidine Screen NEGATIVE, Urine Amphetamines Screen NEGATIVE, Urine Methamphetamines Screen NEGATIVE, Urine Benzodiazepines Screen POSITIVEH, Urine Cocaine Screen NEGATIVE, Urine Cannabinoids Screen NEGATIVE 12/04/17 22:55: Lactic Acid Level 1.91 12/05/17 00:54: Glucometer 272H 12/05/17 03:00: White Blood Count 6.9, Red Blood Count 3.35L, Hemoglobin 10.2L, Hematocrit 31L, Mean Corpuscular Volume 92, Mean Corpuscular Hemoglobin 30, Mean Corpuscular Hemoglobin Concent 33, Red Cell Distribution Width 12.9, Platelet Count 181, Mean Platelet Volume 10.3, Neutrophils (%) (Auto) 63, Lymphocytes (%) (Auto) 27 , Monocytes (%) (Auto) 7, Eosinophils (%) (Auto) 3, Basophils (%) (Auto) 0, Neutrophils # (Auto) 4.3, Lymphocytes # (Auto) 1.8, Monocytes # (Auto) 0.5, Eosinophils # (Auto) 0.2, Basophils # (Auto) 0.0, Sodium Level 139, Potassium Level 3.8, Chloride Level 107, Carbon Dioxide Level 19L, Anion Gap 13, Blood Urea Nitrogen 10, Creatinine 0.76, Estimat Glomerular Filtration Rate > 60, BUN/ Creatinine Ratio 13, Glucose Level 267H, Calcium Level 8.1L, Total Bilirubin 0.3 , Aspartate Amino Transf (AST/SGOT) 18, Alanine Aminotransferase (ALT/SGPT) 21, Alkaline Phosphatase 89, Total Protein 5.6L, Albumin 3.1L Clinical Quality Measures DVT/VTE Risk/Contraindication: Risk Factor Score Per Nursin RFS Level Per Nursing on Admit: 2=Moderate BAMBI ANDERSON DO Dec 05, 2017 10:12
[2017-12-05] MEDS ORDERED: TOPI50TA13 PO (10:26)
[2017-12-05] MEDS ORDERED: ATOR10TA66 PO (10:26)
[2017-12-05] MEDS ORDERED: SENN-148 PO (10:26)
[2017-12-05] MEDS ORDERED: QUET50TA76 PO (10:26)
[2017-12-05] MEDS ORDERED: POLY17PO6 PO (10:51)
[2017-12-05] MEDS ORDERED: FLUT16SP22 NS (10:51)
[2017-12-05] MEDS ORDERED: OLOP5DRO13 OU (10:51)
[2017-12-05] MEDS ORDERED: INSU100I29 SQ (10:51)
--- NOTE | 2017-12-05 16:20 | History & Physicial (CHS) ---
HPI History of Present Illness: Per ED Notes: The patient presents to the ER by private conveyance with her caregiver and a chief complaint that she was at her doctor's office today for her abdominal pain and high blood sugars and they sent her to the ER. She lives and [place] but she doctors with the community health in [place]. She says her abdominal pain is midepigastric and periumbilical. His been going on for a couple weeks but started getting worse about a week ago so she went and saw her doctor and they ordered a CT scan of the abdomen. The CT scan revealed that she had a lot of constipation so she was given 2 enemas and some laxative she said she had multiple large bowel movements but her pain did not really improve. She has a history of multiple surgeries on her abdomen including multiple C-sections , hysterectomy, appendectomy, history of ruptured uterus, D&C, etc. She is also known to Dr. Sellers for history of heart palpitations and has had heart catheterizations. She did have a large bowel movement today. She's not having any fevers or chills but she is having some nausea. She's been at home and that helps. She is not taking anything additional for her abdominal pain because she only uses but she's told she can use which is one half of a Percocet in the morning another half an afternoon and one whole Percocet in the evening for going to bed. She uses for her chronic back pain. The patient's blood pressure has been low for the past couple months. About the same time she started her new medicine metoprolol which she takes a 25 mg tablet 1-1/2 tablets twice a day. Source: patient, RN/MD, RN notes reviewed, old records Exam Limitations: no limitations Date seen by provider: Dec 05, 2017 Time Seen by Provider: 15:45 Attending Physician Krista Torres DO PCP Indu Mitchell DO Consult Date of Admission Dec 04, 2017 at 22:30 Home Medications Home Medications Reviewed patient Home Medication Reconciliation performed by pharmacy medication reconciliations electronic organ technician and/or nursing. Patients Allergies have been reviewed. Allergies Coded Allergies: acetaminophen (Verified Allergy, Mild, 10/10/16) hydrocodone (Verified Allergy, Mild, 10/10/16) Iodinated Contrast- Oral and IV Dye (Verified Allergy, Unknown, 10/10/16) Sulfa (Sulfonamide Antibiotics) (Verified Allergy, Unknown, 10/10/16) codeine (Verified Allergy, Unknown, 10/10/16) iodine (Verified Allergy, Unknown, 10/10/16) metoclopramide (Verified Allergy, Unknown, 10/10/16) ondansetron (Verified Allergy, Unknown, 10/10/16) prochlorperazine (Verified Allergy, Unknown, 10/10/16) Uncoded Allergies: IV Dye (Allergy, Mild, 08/17/15) tape (Adverse Reaction, Mild, blister, 08/17/15) [id number]-[id number]-Xxyepr Hx Patient Social History Living Status: lives independently Employed/Student: unemployed Alcohol Use: Denies Use Recreational Drug Use: No Drug of Choice: denies use Smoking Status: Former Smoker Type Used: Cigarettes 2nd Hand Smoke Exposure: Yes Recent Foreign Travel: No Contact w/other who traveled: No Recent Hopitalizations: No Recent Infectious Disease Expo: No Physical Abuse Screen: No Sexual Abuse: No Immunizations Up To Date Tetanus Booster (TDap): Unknown Past Medical History DIABETES TYPE 2, UNCONTROLLED CHRONIC PAIN SYNDROME MORBID OBESITY HYPERTENSION HYPERLIPIDEMIA COPD CAD CIRO - 3L O2 AT [facility] FIBROMYALGIA MIGRAINES POLYNEUROPATHY SEIZURE DISORDER PER HX GERD CHRONIC DIARRHEA HEMORRHOIDS HYPOTHYROIDISM ANXIETY DEPRESSION GASTROPARESIS INSOMNIA STAGE 3 CHRONIC KIDNEY DISEASE BORDERLINE PERSONALITY DISORDER SURGICAL: APPENDECTOMY BLADDER SURGERY HEART CATH WITH STENT PLACEMENT CHOLECYSTECTOMY HYSTERECTOMY BSO TONSILLECTOMY HERNIA REPAIR Family Medical History Significant Family History: Hypertension Family History: Completed stroke 19 MOTHER Diabetes mellitus 19 FATHER 19 MOTHER MATERNAL GRANDMOTHER MATERNAL GRANDFATHER P GRANDFATHER FH: breast cancer 19 MOTHER Kidney disease MATERNAL GRANDFATHER Myocardial infarction 19 FATHER, Onset:58 Review of Systems ([facility]C) Constitutional: see HPI EENTM: no symptoms reported Respiratory: no symptoms reported Cardiovascular: see HPI, Hx of Intervention Gastrointestinal: see HPI, abdominal pain Genitourinary: no symptoms reported : No Musculoskeletal: see HPI, back pain Skin: no symptoms reported Psychiatric/Neurological: No Symptoms Reported, Anxiety, Depressed Reviewed Test Results Reviewed Test Results Radiology Date of Exam: 12/04/17 CT ABDOMEN/PELVIS WO PROCEDURE: CT abdomen and pelvis without contrast. TECHNIQUE: Multiple contiguous axial images were obtained through the abdomen and pelvis without the use of intravenous contrast. INDICATION: Hyperglycemia and hypotension Comparison is made to study of 11/27/2017. No focal hepatic or splenic abnormality is identified. Gallbladder is surgically absent. Evaluation of the kidneys is limited without intravenous contrast, however, there is no evidence of adrenal gland or renal abnormality. No free fluid is seen in the abdomen or pelvis. Surgical changes in the anterior abdominal wall and within the pelvis, bilaterally. There is no evidence of organized fluid collection. There is no evidence of acute osseous abnormality. IMPRESSION: Surgical changes in the anterior abdominal wall and within the pelvis. There is no evidence of significant bowel hernia. No acute abnormality is detected. Physical Exam-([facility]) Physical Exam Vital Signs Capillary Refill : Less Than 3 SecondsLess Than 3 Seconds General Appearance: WD/WN, no apparent distress Eyes: Bilateral Eye Normal Inspection, Bilateral Eye EOMI HEENT: normal ENT inspection; No scleral icterus (R), No scleral icterus (L), No photophobia Neck: non-tender, full range of motion, supple, normal inspection Respiratory: chest non-tender, lungs clear, normal breath sounds, no respiratory distress, no accessory muscle use Cardiovascular: regular rate, rhythm, no gallop, no JVD Gastrointestinal: normal bowel sounds, soft, no pulsatile mass; No distended, No guarding, No rebound; tenderness Rectal: deferred Extremities: non-tender, no calf tenderness, swelling Skin: normal color, warm/dry Assessment/Plan Assessment/Plan Admission Dx Hypotension Hyperglycemia Abdominal Pain Type II Diabetes with complication and mcfp insulin use Hypothyroidism Anxiety Depression Gastroparesis Borderline Personality Disorder Fibromyalgia Diabetic Polyneuropathy Morbid Obesity, BMI 45 Stage 3 CKD Admission Status: Observation Assessment & Plan Hypotension Hyperglycemia Abdominal Pain Type II Diabetes with complication and roasterman insulin use Hypothyroidism Anxiety Depression Gastroparesis Borderline Personality Disorder Fibromyalgia Diabetic Polyneuropathy Morbid Obesity, BMI 45 Stage 3 CKD Patient was placed in observation for IV hydration and monitoring of her blood pressure and her blood sugars. With stopping her beta candice therapy, the patient's blood pressure returned to a normal level and she was normotensive. She continued to have some hyperglycemia, but not as significant as when she was admitted -- likely would have been able to obtain better control, but patient refused insulin for her meals several times. Patient complains of periumbilical pain where she has previously had a hernia repair with mesh, and reports that it is so painful that she can't tolerate it, it makes it impossible for her to do anything other than lay still, she is unable to eat or sleep or do anything because of the pain in her abdomen. Discussed with patient that given her primary reason for admission -- her low blood pressure - - was resolved with holding her beta candice, that we could discharge her to home and have her follow up in clinic regarding starting her beta candice at a much lower dose. We will also refer her to surgery as an outpatient, as the patient reports her pain is behind where her mesh from her previous hernia was; she does have evidence of some fat herniation under the mesh on CT scan done on admission per [facility] read, which could be the cause of the patient's abdominal pain. This is satisfactory to the patient, and she would like to be discharged. Clinical Quality Measures DVT/VTE Risk/Contraindication: Risk Factor Score Per Nursin RFS Level Per Nursing on Admit: 2=Moderate Copy Copies To 1: [facility]/KRISTA ECHEVERRIA DO Dec 05, 2017 16:20
--- NOTE | 2017-12-05 16:20 | Discharge Summary ---
Diagnosis/Chief Complaint Date of Admission Dec 04, 2017 at 22:30 Date of Discharge 12/05/17 Admission Diagnosis Admission Diagnosis Hypotension Hyperglycemia Abdominal Pain Type II Diabetes with complication and 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 card tender insulin use Hypothyroidism Anxiety Depression Gastroparesis Borderline Personality Disorder Fibromyalgia Diabetic Polyneuropathy Morbid Obesity, BMI 45 Stage 3 CKD Discharge Diagnosis Hypotension Hyperglycemia Abdominal Pain Type II Diabetes with complication and 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 card tender insulin use Hypothyroidism Anxiety Depression Gastroparesis Borderline Personality Disorder Fibromyalgia Diabetic Polyneuropathy Morbid Obesity, BMI 45 Stage 3 CKD Patient was placed in observation for IV hydration and monitoring of her blood pressure and her blood sugars. With stopping her beta candice therapy, the patient's blood pressure returned to a normal level and she was normotensive. She continued to have some hyperglycemia, but not as significant as when she was admitted -- likely would have been able to obtain better control, but patient refused insulin for her meals several times. Patient complains of periumbilical pain where she has previously had a hernia repair with mesh, and reports that it is so painful that she can't tolerate it, it makes it impossible for her to do anything other than lay still, she is unable to eat or sleep or do anything because of the pain in her abdomen. Discussed with patient that given her primary reason for admission -- her low blood pressure - - was resolved with holding her beta candice, that we could discharge her to home and have her follow up in clinic regarding starting her beta candice at a much lower dose. We will also refer her to surgery as an outpatient, as the patient reports her pain is behind where her mesh from her previous hernia was; she does have evidence of some fat herniation under the mesh on CT scan done on admission per RANULFO raza, which could be the cause of the patient's abdominal pain. This is satisfactory to the patient, and she would like to be discharged. Chief Complaint/HPI Chief Complaint/HPI Per ED Notes: The patient presents to the ER by private conveyance with her caregiver and a chief complaint that she was at her doctor's office today for her abdominal pain and high blood sugars and they sent her to the ER. She lives and [place] but she doctors with the formerly [facility] in [place]. She says her abdominal pain is midepigastric and periumbilical. His been going on for a couple weeks but started getting worse about a week ago so she went and saw her doctor and they ordered a CT scan of the abdomen. The CT scan revealed that she had a lot of constipation so she was given 2 enemas and some laxative she said she had multiple large bowel movements but her pain did not really improve. She has a history of multiple surgeries on her abdomen including multiple C-sections , hysterectomy, appendectomy, history of ruptured uterus, D&C, etc. She is also known to Dr. Sellers for history of heart palpitations and has had heart catheterizations. She did have a large bowel movement today. She's not having any fevers or chills but she is having some nausea. She's been at home and that helps. She is not taking anything additional for her abdominal pain because she only uses but she's told she can use which is one half of a Percocet in the morning another half an afternoon and one whole Percocet in the evening for going to bed. She uses for her chronic back pain. The patient's blood pressure has been low for the past couple months. About the same time she started her new medicine metoprolol which she takes a 25 mg tablet 1-1/2 tablets twice a day. Discharge Summary-OBS Procedures None. Consultations Discharge Physical Examination Allergies: Coded Allergies: acetaminophen (Verified Allergy, Mild, 10/10/16) hydrocodone (Verified Allergy, Mild, 10/10/16) Iodinated Contrast- Oral and IV Dye (Verified Allergy, Unknown, 10/10/16) Sulfa (Sulfonamide Antibiotics) (Verified Allergy, Unknown, 10/10/16) codeine (Verified Allergy, Unknown, 10/10/16) iodine (Verified Allergy, Unknown, 10/10/16) metoclopramide (Verified Allergy, Unknown, 10/10/16) ondansetron (Verified Allergy, Unknown, 10/10/16) prochlorperazine (Verified Allergy, Unknown, 10/10/16) Uncoded Allergies: IV Dye (Allergy, Mild, 08/17/15) tape (Adverse Reaction, Mild, blister, 08/17/15) Vitals & I&Os Vital Sign - Last 12Hours Date Time Temp Pulse Resp B/P (MAP) Pulse Ox O2 Delivery O2 Flow Rate FiO2 12/05/17 13:00 97 12/05/17 11:15 98.6 Room Air 12/05/17 11:00 6 113/71 (85) 97 General Appearance: Alert, Oriented X3, Cooperative, No Acute Distress HEENT: Atraumatic, EOMI, Mucous Memb Moist/[place] Respiratory: Clear to Auscultation, Normal Air Movement Cardiovascular: Regular Rate, Normal S1, Normal S2 Abdominal: Normal Bowel Sounds, Soft, No Masses Extremities: No Clubbing, No Cyanosis Skin: No Rashes, No Significant Lesion Neuro: Normal Speech, Normal Tone, Cranial Nerves 3-12 NL Psych/Mental Status: Mental Status NL, Mood NL Hospital Course see final discharge diagnosis Labs Laboratory Tests 12/04/17 20:04: Glucometer 461*H 12/04/17 21:10: White Blood Count 8.4, Red Blood Count 3.73L, Hemoglobin 11.1L, Hematocrit 34L, Mean Corpuscular Volume 90, Mean Corpuscular Hemoglobin 30, Mean Corpuscular Hemoglobin Concent 33, Red Cell Distribution Width 12.9, Platelet Count 226, Mean Platelet Volume 10.3, Neutrophils (%) (Auto) 59, Lymphocytes (%) (Auto) 31 , Monocytes (%) (Auto) 6, Eosinophils (%) (Auto) 4, Basophils (%) (Auto) 1, Neutrophils # (Auto) 4.9, Lymphocytes # (Auto) 2.6, Monocytes # (Auto) 0.5, Eosinophils # (Auto) 0.3, Basophils # (Auto) 0.1, Sodium Level 133L, Potassium Level 4.4, Chloride Level 101, Carbon Dioxide Level 18L, Anion Gap 14, Blood Urea Nitrogen 11, Creatinine 1.03, Estimat Glomerular Filtration Rate 57, BUN/ Creatinine Ratio 11, Glucose Level 479*H, Calcium Level 8.6, Magnesium Level 1.9 , Total Bilirubin 0.4, Aspartate Amino Transf (AST/SGOT) 24, Alanine Aminotransferase (ALT/SGPT) 26, Alkaline Phosphatase 101, Troponin I < 0.30, Total Protein 6.4, Albumin 3.5, Lipase 15 12/04/17 21:40: Lactic Acid Level 2.82*H 12/04/17 22:15: Prothrombin Time 14.2, INR Comment 1.1, Activated Partial Thromboplast Time 24 12/04/17 22:28: Glucometer 303H 12/04/17 22:40: Urine Color YELLOW, Urine Clarity CLEAR, Urine pH 5, Urine Specific G[place] 1.015L, Urine Protein 1+H, Urine Glucose (UA) 4+H, Urine Ketones NEGATIVE, Urine Nitrite NEGATIVE, Urine Bilirubin NEGATIVE, Urine Urobilinogen NORMAL, Urine Leukocyte Esterase NEGATIVE, Urine RBC (Auto) NEGATIVE, Urine RBC NONE, Urine WBC RARE, Urine Squamous Epithelial Cells 10-25H, Urine Crystals NONE, Urine Bacteria NEGATIVE, Urine Casts PRESENT, Urine Hyaline Casts 5-10H, Urine Mucus NEGATIVE, Urine Culture Indicated NO, Urine Test NEGATIVE, Urine Opiates Screen POSITIVEH, Urine Oxycodone Screen POSITIVEH, Urine Methadone Screen NEGATIVE, Urine Propoxyphene Screen NEGATIVE, Urine Barbiturates Screen NEGATIVE, Ur Tricyclic Antidepressants Screen POSITIVEH, Urine Phencyclidine Screen NEGATIVE, Urine Amphetamines Screen NEGATIVE, Urine Methamphetamines Screen NEGATIVE, Urine Benzodiazepines Screen POSITIVEH, Urine Cocaine Screen NEGATIVE, Urine Cannabinoids Screen NEGATIVE 12/04/17 22:55: Lactic Acid Level 1.91 12/05/17 00:54: Glucometer 272H 12/05/17 03:00: White Blood Count 6.9, Red Blood Count 3.35L, Hemoglobin 10.2L, Hematocrit 31L, Mean Corpuscular Volume 92, Mean Corpuscular Hemoglobin 30, Mean Corpuscular Hemoglobin Concent 33, Red Cell Distribution Width 12.9, Platelet Count 181, Mean Platelet Volume 10.3, Neutrophils (%) (Auto) 63, Lymphocytes (%) (Auto) 27 , Monocytes (%) (Auto) 7, Eosinophils (%) (Auto) 3, Basophils (%) (Auto) 0, Neutrophils # (Auto) 4.3, Lymphocytes # (Auto) 1.8, Monocytes # (Auto) 0.5, Eosinophils # (Auto) 0.2, Basophils # (Auto) 0.0, Sodium Level 139, Potassium Level 3.8, Chloride Level 107, Carbon Dioxide Level 19L, Anion Gap 13, Blood Urea Nitrogen 10, Creatinine 0.76, Estimat Glomerular Filtration Rate > 60, BUN/ Creatinine Ratio 13, Glucose Level 267H, Calcium Level 8.1L, Total Bilirubin 0.3 , Aspartate Amino Transf (AST/SGOT) 18, Alanine Aminotransferase (ALT/SGPT) 21, Alkaline Phosphatase 89, Total Protein 5.6L, Albumin 3.1L 12/05/17 11:30: Glucometer 243H 12/05/17 15:49: Glucometer 266H Discussion & Recommendations Although it contains only fat, suspect that pt's abdominal pain is caused by the fat herniation behind her current mesh. We will refer the patient to Dr. Jacobson, her requested surgery referral, for evaluation of this. Discussed with patient that referral to see him does not mean that she needs or will get surgery, it is simply for his assessment of her situation. Patient states understanding and states she would like an appointment to be arranged; we will have that done for patient at discharge and are thankful in advance for Dr. Jacobson's expert advice and consultation. Discharge Condition at discharge stable Instructions to patient/family Please see electronic discharge instructions given to patient. Discharge Medications Reviewed and agree with Discharge Medication list on patient's Discharge Instruction sheet Clinical Quality Measures DVT/VTE Risk/Contraindication: Risk Factor Score Per Nursin RFS Level Per Nursing on Admit: 2=Moderate Copy Copies To 1: [facility]/BAMBI ECHEVERRIA DO Dec 05, 2017 16:20
[2017-12-05] MEDS ORDERED: OLOPATADINE 0.1 % OPHTH (PATANOL) 5 ML BTL OU PRN (16:30)
[2017-12-05] MEDS ORDERED: FLUTICASONE NASAL SPRAY (FLONASE) 16 GM BTL NS PRN (16:30)
[2017-12-05] MEDS ORDERED: NON-FORMULARY MEDICATION 1 EA EA (Acetaminophen (Tylenol Extra Strength) 1,000 MG) PO PRN (16:30)
[2017-12-05] MEDS ORDERED: ALPRAZolam 0.5 MG (XANAX) TAB PO PRN (16:30)
[2017-12-05] MEDS ORDERED: NYSTATIN MM PRN (16:30)
--- NOTE | 2017-12-05 16:30 | Discharge Instructions ---
Discharge [facility] Discharge Medications New, Converted or Re-Newed RX: Other (no new rx; hold blood pressure medications until office follow up) Continued Medications: Acetaminophen (Tylenol Extra Strength) 500 Mg Tablet 1000 MG PO TID PRN for PAIN-MILD, TAB TAKES 2 (500MG) TABLETS Alprazolam (Alprazolam) 0.5 Mg Tablet 0.5 MG PO TID PRN for ANXIETY, TAB Amitriptyline HCl (Amitriptyline HCl) 25 Mg Tablet 25 MG PO HS, TAB Diphenhydramine HCl (Benadryl Allergy) 25 Mg Tablet 50 MG PO HS, TAB Escitalopram Oxalate (Escitalopram Oxalate) 20 Mg Tablet 20 MG PO HS, TAB Fluticasone Propionate (Fluticasone Propionate) 16 Gm Rumney.susp 2 SPRAYS NS HS PRN for CONGESTION, EA Furosemide (Furosemide) 20 Mg Tablet 20 MG PO DAILY, TAB Gabapentin (Gabapentin) 800 Mg Tablet 800 MG PO QID, TAB Insulin Detemir (Levemir Flextouch) 100 Unit/1 Ml Insuln.pen 30 UNIT SQ HS, EA Insulin Regular, Human (Humulin R U-500 Kwikpen) 500 Unit/1 Ml Insuln.pen 45 UNITS SC AC, EA Levothyroxine Sodium (Levothyroxine Sodium) 75 Mcg Tablet 75 MCG PO DAILY, TAB Liraglutide (Victoza 3-Marino) 0.6 Mg/0.1 Ml Pen.injctr 1.2 MG SQ 1800, EA Nystatin (Nystatin) 100,000 Unit/1 Ml Oral.susp 5 ML MM QID PRN for THRUSH, EA Olopatadine HCl (Olopatadine HCl) 5 Ml Drops 1 DROP OU BID PRN for DRY EYES, EA Oxycodone HCl/Acetaminophen (Oxycodone-Acetaminophen 5-325) 1 Each Tablet 1 TAB PO BID, TAB Polyethylene Glycol 3350 (Miralax) 17 Gm Powd.pack 17 GM PO HS, EACH Promethazine HCl (Promethazine Tablet) 25 Mg Tablet 25 MG PO BID, TAB Quetiapine Fumarate (Quetiapine Fumarate ER) 50 Mg Tab.er.24h 100 MG PO HS, TAB TAKES 2 (50MG) TABLETS Ranitidine HCl (Zantac) 150 Mg Tablet 150 MG PO BID, TAB Tizanidine HCl (Tizanidine HCl) 4 Mg Tablet 4 MG PO TID, TAB Topiramate (Topiramate) 50 Mg Tablet 50 MG PO BID, TAB Varenicline Tartrate (Chantix) 1 Mg Tablet 1 MG PO BID, TAB Discontinued Medications: Losartan Potassium (Losartan Potassium) 100 Mg Tablet 100 MG PO DAILY PRN for BLOOD PRESSURE, TAB Metoprolol Tartrate (Metoprolol Tartrate) 50 Mg Tablet 50 MG PO BID, TAB Patient Instructions Patient Instructions -take medications as instructed -do not take blood pressure medications until seen in follow up in the office -drink plenty of fluid to stay well hydrated -keep scheduled follow up appointments Goal/Follow Up Appt: Nicolette Stallings, 12/08/17 at [address] [facility] [address]. Jacobson - 1-2 weeks for evaluation/opinion on hernia Return to The Hospital For: chest pain or pressure, shortness of breath out of normal for patient, nausea or vomiting that lasts more than 12 hours and makes you unable to keep down clear liquids or medications, pain unrelieved by usual measures, fever >101 that does not come down with tylenol or ibuprofen, if directed by director of education provider, or with any other emergent complaints or concerns Activity & Diet Discharge Diet: ADA Diet, Cardiac Diet Activity as Tolerated: Yes Copy Copies To 1: [facility]/BAMBI ECHEVERRIA DO Dec 05, 2017 16:29
[2017-12-05] MEDS ORDERED: NON-FORMULARY MEDICATION 1 EA EA (Gabapentin 800 MG) PO SCH (17:00)
[2017-12-05] MEDS ORDERED: NON-FORMULARY MEDICATION 1 EA EA (Liraglutide (Victoza 3-Pak) 1.2 MG) SQ SCH (18:00)
[2017-12-05] MEDS ORDERED: QUEtiapine 100 MG (SEROquel) TAB IMMEDIATE RELEASE PO SCH (21:00)
[2017-12-05] MEDS ORDERED: NON-FORMULARY MEDICATION 1 EA EA (Topiramate 50 MG) PO SCH (21:00)
[2017-12-05] MEDS ORDERED: diphenhydrAMINE 25 MG TAB (BENADRYL) PO SCH (21:00)
[2017-12-05] MEDS ORDERED: NON-FORMULARY MEDICATION 1 EA EA (Insulin Detemir (Levemir Flextouch) 30 UNIT) SQ SCH (21:00)
[2017-12-05] MEDS ORDERED: NON-FORMULARY MEDICATION 1 EA EA (Ranitidine HCl (Zantac) 150 MG) PO SCH (21:00)
[2017-12-05] MEDS ORDERED: NON-FORMULARY MEDICATION 1 EA EA (Polyethylene Glycol 3350 (Miralax) 17 GM) PO SCH (21:00)
[2017-12-05] MEDS ORDERED: QUETIAPINE FUMARATE 100 MG PO SCH (21:00)
[2017-12-05] MEDS ORDERED: AMITRIPTYLINE 25 MG (ELAVIL) TAB PO SCH (21:00)
[2017-12-05] MEDS ORDERED: PROMETHAZINE 25 MG (PHENERGAN) TAB PO SCH (21:00)
[2017-12-05] MEDS ORDERED: oxyCODONE/APAP 5/325MG (PERCOCET 5) TABLET PO SCH (21:00)
[2017-12-05] MEDS ORDERED: NON-FORMULARY MEDICATION 1 EA EA (Escitalopram Oxalate 20 MG) PO SCH (21:00)
[2017-12-05] MEDS ORDERED: NON-FORMULARY MEDICATION 1 EA EA (Varenicline Tartrate (Chantix) 1 MG) PO SCH (21:00)
[2017-12-06] MEDS ORDERED: [UNRECOGNIZED DRUG - OTHER] SC SCH (06:00)
[2017-12-06] MEDS ORDERED: INSULIN REGULAR HUMAN 45 UNIT SC SCH (06:00)
[2017-12-06] MEDS ORDERED: LEVOTHYROXINE 75 MCG (LEVOTHROID) TABLET PO SCH (09:00)
[2017-12-06] MEDS ORDERED: FUROSEMIDE 20 MG (LASIX) TAB PO SCH (09:00)
--- NOTE | 2017-12-07 23:27 | Physician Query-Final Dx ---
MANOLO BARRON 12/07/17 2327: Final Diagnosis Give Final Diagnosis Please give Final Diagnosis BAMBI ANDERSON 12/10/17 1146: Final Diagnosis Give Final Diagnosis Hypotension Hyperglycemia Abdominal Pain Type II Diabetes with complication and 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 insulin use Hypothyroidism Anxiety Depression Gastroparesis Borderline Personality Disorder Fibromyalgia Diabetic Polyneuropathy Morbid Obesity, BMI 45 Stage 3 CKD Patient was placed in observation for IV hydration and monitoring of her blood pressure and her blood sugars. With stopping her beta candice therapy, the patient's blood pressure returned to a normal level and she was normotensive. She continued to have some hyperglycemia, but not as significant as when she was admitted -- likely would have been able to obtain better control, but patient refused insulin for her meals several times. Patient complains of periumbilical pain where she has previously had a hernia repair with mesh, and reports that it is so painful that she can't tolerate it, it makes it impossible for her to do anything other than lay still, she is unable to eat or sleep or do anything because of the pain in her abdomen. Discussed with patient that given her primary reason for admission -- her low blood pressure - - was resolved with holding her beta candice, that we could discharge her to home and have her follow up in clinic regarding starting her beta candice at a much lower dose. We will also refer her to surgery as an outpatient, as the patient reports her pain is behind where her mesh from her previous hernia was; she does have evidence of some fat herniation under the mesh on CT scan done on admission per [facility] read, which could be the cause of the patient's abdominal pain. This is satisfactory to the patient, and she would like to be discharged. MANOLO BARRON Dec 07, 2017 23:27 BAMBI ANDERSON DO Dec 10, 2017 11:46
== END 2017-12-05 16:25 | disposition home or self-care (01) ==
LOC: EDUNIT# 19:22 → ER 19:23 → ICU 22:30
PROVIDERS: ADMIT Family Medicine; ATTEND Family Medicine
DX: I95.2 Hypotension due to drugs (principal); T44.7X5A Adverse effect of beta-adrenoreceptor antagonists, initial encounter; E11.65 Type 2 diabetes mellitus with hyperglycemia; R10.33 Periumbilical pain; E11.43 Type 2 diabetes mellitus with diabetic autonomic (poly)neuropathy; E11.42 Type 2 diabetes mellitus with diabetic polyneuropathy; E11.22 Type 2 diabetes mellitus with diabetic chronic kidney disease; N18.3 Chronic kidney disease, stage 3 (moderate); E03.9 Hypothyroidism, unspecified; F41.9 Anxiety disorder, unspecified; F32.9 Major depressive disorder, single episode, unspecified; F60.3 Borderline personality disorder; M79.7 Fibromyalgia; G47.30 Sleep apnea, unspecified; J44.9 Chronic obstructive pulmonary disease, unspecified; I25.10 Atherosclerotic heart disease of native coronary artery without angina pectoris; E78.00 Pure hypercholesterolemia, unspecified; G40.909 Epilepsy, unspecified, not intractable, without status epilepticus; E66.01 Morbid (severe) obesity due to excess calories; Z68.42 Body mass index [BMI] 45.0-49.9, adult; Z79.4 Long term (current) use of insulin; Z79.899 Other long term (current) drug therapy; Z95.5 Presence of coronary angioplasty implant and graft
CPT/HCPCS: 36415; 71045; 74176; 80053; 80306; 81000; 82962; 83605; 83690; 83735; 84484; 84703; 85025; 85610; 85730; 87040; 87077; 93005; 96361; 96365; 96375

== ENCOUNTER 2017-12-07 14:30 | Outpatient (CLI) | payer MEDICAID ==
[~2017-12-07] VITALS: Ht 157.5 cm; Wt 112.0 kg
[~2017-12-07 14:30] MED LIST changes: +ATOR10TA66 PO; +FLUT16SP22 NS; +INSU100I29 SQ; +OLOP5DRO13 OU; +POLY17PO6 PO; +QUET50TA76 PO; +SENN-148 PO; +TOPI50TA13 PO
== END 2017-12-07 14:42 ==
LOC: PREOP 14:30
PROVIDERS: ATTEND Surgery
DX: Z01.818 Encounter for other preprocedural examination (principal); R13.10 Dysphagia, unspecified

== ENCOUNTER 2018-01-04 15:01 | Observation (INO) | payer MEDICAID ==
[~2018-01-04] VITALS: Ht 157.5 cm; Wt 111.6 kg
[~2018-01-04 15:01] MED LIST changes: -QUET50TA76 PO; +QUET50TA79 PO
--- OUTSIDE RECORDS SUMMARY | 2018-01-04 15:16 | XMS REPORT | Clinical Summary ---
Author Author [facility] Organization [facility] Address Unknown Phone Unavailable Care Team Providers Care Chamber Worker Name Role Phone Richard Maria DO Unavailable Richard Maria DO PCP Source Comments Some departments are not documenting in the electronic medical record. If you do not see the information that you expected, contact Release of Information in the Health Information Management department at [phone] for further assistance in locating additional records.[facility] Allergies Not on File Current Medications [...]
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
[2018-01-04] MEDS ORDERED: NS IV 1000 ML 1,000 ML IV ONE (15:38)
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
[2018-01-04 16:37] LABS: BILIRUBIN,URINE NEGATIVE (NEGATIVE); CLARITY,URINE CLEAR; COLOR,URINE YELLOW; GLUCOSE, URINE (UA) 3+ (NEGATIVE); KETONES,URINE NEGATIVE (NEGATIVE); LEUKOCYTE ESTERASE ,URINE 3+ (NEGATIVE); NITRITE,URINE NEGATIVE (NEGATIVE); PH,URINE 5 (5-9); PROTEIN,URINE 2+ (NEGATIVE); UROBILINOGEN,URINE NORMAL (NORMAL)
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
[2018-01-04 16:49] LABS: BACTERIA,URINE MODERATE /HPF; YEAST,URINE FEW /HPF
[2018-01-04 16:54] LABS: AMPHETAMINE SCREEN, URINE NEGATIVE (NEGATIVE); BARBITURATE SCREEN URINE NEGATIVE (NEGATIVE); BENZODIAZEPINES SCREEN URINE POSITIVE (NEGATIVE); CANNABINOID SCREEN, URINE NEGATIVE (NEGATIVE); COCAINE SCREEN URINE NEGATIVE (NEGATIVE); METHADONE STAT NEGATIVE (NEGATIVE); METHAMPHETAMINE SCREEN URINE S NEGATIVE (NEGATIVE); OPIATE SCREEN URINE POSITIVE (NEGATIVE); OXYCODONE STAT POSITIVE (NEGATIVE); PROPOXYPHENE STAT NEGATIVE (NEGATIVE); TRICYCLIC ANTIDEPRESSANTS SCRE POSITIVE (NEGATIVE)
[2018-01-04 16:59] LABS: BASOPHILS # (AUTO) 0.1 10^3/uL (0.0-0.1); BASOPHILS % (AUTO) 1 % (0-10); EOSINOPHILS # (AUTO) 0.3 10^3/uL (0.0-0.3); EOSINOPHILS % (AUTO) 3 % (0-10); HEMATOCRIT 32 % (35-52); HEMOGLOBIN 10.7 G/DL (11.5-16.0); LYMPHOCYTES # (AUTO) 3.2 X 10^3 (1.0-4.0); LYMPHOCYTES % (AUTO) 33 % (12-44); MEAN CORPUSCULAR HEMOGLOBIN 30 PG (25-34); MEAN CORPUSCULAR HGB CONC 33 G/DL (32-36); MEAN CORPUSCULAR VOLUME 92 FL (80-99); MEAN PLATELET VOLUME 9.8 FL (7.4-10.4); MONOCYTES # (AUTO) 0.5 X 10^3 (0.0-1.0); MONOCYTES % (AUTO) 6 % (0-12); NEUTROPHILS # (AUTO) 5.5 X 10^3 (1.8-7.8); NEUTROPHILS % (AUTO) 58 % (42-75); PLATELET COUNT 220 10^3/uL (130-400); RED BLOOD COUNT 3.54 10^6/uL (4.35-5.85); RED CELL DISTRIBUTION WIDTH 13.3 % (10.0-14.5); WHITE BLOOD COUNT 9.5 10^3/uL (4.3-11.0)
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
--- NOTE | 2018-01-04 17:23 | ED General ---
General Chief Complaint: Glucose Problems Stated Complaint: VOMITING Nursing Triage Note: PT WAS TOLD AT [facility] THAT SHE HAD KETONES IN HER URINE AND THAT SHE WAS GOING TO BE ADMITTED. NO ONE FROM [facility] TALKED WITH ER PROVIDERS. PT VOMITING AND STATES LOW B/P. STATES YESTERDAY "I FELT LIKE MY BLADDER WAS GOING TO BURST." ALSO STATES CHEST PAIN. 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 GONZALEZ Allergies and Home Medications Allergies Coded Allergies: acetaminophen (Verified Allergy, Mild, 10/10/16) hydrocodone (Verified Allergy, Mild, 10/10/16) Iodinated Contrast- Oral and IV Dye (Verified Allergy, Unknown, 10/10/16) Sulfa (Sulfonamide Antibiotics) (Verified Allergy, Unknown, 10/10/16) codeine (Verified Allergy, Unknown, 10/10/16) iodine (Verified Allergy, Unknown, 10/10/16) metoclopramide (Verified Allergy, Unknown, 10/10/16) ondansetron (Verified Allergy, Unknown, 10/10/16) prochlorperazine (Verified Allergy, Unknown, 10/10/16) Uncoded Allergies: IV Dye (Allergy, Mild, 08/17/15) tape (Adverse Reaction, Mild, blister, 08/17/15) Home Medications Acetaminophen 500 Mg Tablet, 1,000 MG PO TID PRN for PAIN-MILD, (Reported) TAKES 2 (500MG) TABLETS Alprazolam 0.5 Mg Tablet, 0.5 MG PO TID PRN for ANXIETY, (Reported) Amitriptyline HCl 25 Mg Tablet, 25 MG PO HS, (Reported) Diphenhydramine HCl 25 Mg Tablet, 50 MG PO HS, (Reported) Escitalopram Oxalate 20 Mg Tablet, 20 MG PO HS, (Reported) Fluticasone Propionate 16 Gm [place].susp, 2 SPRAYS NS HS PRN for CONGESTION, ( Reported) Furosemide 20 Mg Tablet, 20 MG PO DAILY, (Reported) Gabapentin 800 Mg Tablet, 800 MG PO QID, (Reported) Insulin Detemir 100 Unit/1 Ml Insuln.pen, 30 UNIT SQ HS, (Reported) Insulin Regular, Human 500 Unit/1 Ml Insuln.pen, 45 UNITS SC AC, (Reported) Levothyroxine Sodium 75 Mcg Tablet, 75 MCG PO DAILY, (Reported) Liraglutide 0.6 Mg/0.1 Ml Pen.injctr, 1.2 MG SQ 1800, (Reported) Nystatin 100,000 Unit/1 Ml Oral.susp, 5 ML MM QID PRN for THRUSH, (Reported) Olopatadine HCl 5 Ml Drops, 1 DROP OU BID PRN for DRY EYES, (Reported) Oxycodone HCl/Acetaminophen 1 Each Tablet, 1 TAB PO BID, (Reported) Polyethylene Glycol 3350 17 Gm Powd.pack, 17 GM PO HS, (Reported) Promethazine HCl 25 Mg Tablet, 25 MG PO BID, (Reported) Quetiapine Fumarate 50 Mg Tab.er.24h, 100 MG PO HS, (Reported) TAKES 2 (50MG) TABLETS Ranitidine HCl 150 Mg Tablet, 150 MG PO BID, (Reported) Tizanidine HCl 4 Mg Tablet, 4 MG PO TID, (Reported) Topiramate 50 Mg Tablet, 50 MG PO BID, (Reported) Varenicline Tartrate 1 Mg Tablet, 1 MG PO BID, (Reported) Patient Home Medication List Home Medication List Reviewed: Yes Review of Systems Constitutional: see HPI, fever EENTM: no symptoms reported Respiratory: no symptoms reported Cardiovascular: chest pain (SHE DID NOT C/O THIS TO STAFF, BUT FEMALE WITH PT STATES SHE HAD COMPLAINED OF CHEST PAIN ) Gastrointestinal: see HPI, abdominal pain, diarrhea, loss of appetite, nausea, vomiting Genitourinary: see HPI, decreased output, pain Musculoskeletal: other (PT WEARING A BOOT ON LEFT FOOT--STATES SHE BROKE HER FOOT 02/24/17 AND IT HAS NOT HEALED) Skin: no symptoms reported Psychiatric/Neurological: Pre-Existing Deficit (NEUROPATHY IN FEET) Hematologic/Lymphatic: No Symptoms Reported Immunological/Allergic: no symptoms reported Past Svcidmo-Asbwvu-Kzhmvj Hx Patient Social History Alcohol Use: Denies Use Recreational Drug Use: No Drug of Choice: denies use Smoking Status: Current Everyday Smoker (1 PPD) Type Used: Cigarettes 2nd Hand Smoke Exposure: Yes Recent Foreign Travel: No Contact w/Someone Who Travel: No Recent Infectious Disease Expo: No Recent Hopitalizations: No Immunizations Up To Date Tetanus Booster (TDap): Unknown PED Vaccines UTD: Yes Seasonal Allergies Seasonal Allergies: No Past Medical History Surgeries: Yes (PORT LEFT CHEST; CARDIAC CATH--STENT X 1; HYST/LSO; X 4; EGD/COLONOSCOPY; HERNIA REPAIR) Abdominal, Appendectomy, Bladder Surgery, Cardiac, Coronary Stent, Gallbladder, Hysterectomy, Oophorectomy, Tonsillectomy Respiratory: Yes (O2 AT NIGHT-3L) Sleep Apnea, COPD Currently Using CPAP: No Currently Using BIPAP: No Cardiac: Yes (CAD--STENT X 1; ) Coronary Artery Disease, High Cholesterol, Hypertension, Irregular Heartbeat, Palpitations Neurological: Yes (NEUROPATHY IN FEET/LOWER LEGS) Headaches /Migraines, Neuropathy, Seizure Disorder 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 Sexually Transmitted Disease: No HIV/AIDS: No Genitourinary: Yes (CHRONIC RENAL INSUFFICIENCY) Renal Failure Gastrointestinal: Yes (chronic abdominal pain from hernia repair; GERD/HIATAL HERNIA; GASTRIC ULCER; GASTROPARESIS) Gastroesophageal Reflux, Hemorrhoids, Chronic Diarrhea, Hiatal Hernia, Ulcer Musculoskeletal: Yes Fibromyalgia, Back Injury, Chronic Back Pain Endocrine: Yes (MORBID OBESITY; TYPE 1 DIABETES DX AGE 8) Diabetes, Insulin dep, Hypothyroidsim HEENT: No (EXTREMELY POOR DENTITION) Loss of Vision: Bilateral Hearing Impairment: Denies Cancer: No Psychosocial: Yes Sleep Difficulties, Anxiety, Personality Disorder, Depression Integumentary: No Blood Disorders: No Adverse Reaction/Blood Tranf: No (HAS HAD BLOOD WITH NO PROBLEMS) Family Medical History Completed stroke 19 MOTHER Diabetes mellitus 19 FATHER 19 MOTHER MATERNAL GRANDMOTHER MATERNAL GRANDFATHER P GRANDFATHER FH: breast cancer 19 MOTHER Kidney disease MATERNAL GRANDFATHER Myocardial infarction 19 FATHER, Onset:59 Hypertension Physical Exam Vital Signs Vital Signs - First Documented 01/04/18 15:39 Temp 99.1 Pulse 79 Resp 20 B/P (MAP) 108/74 (85) Pulse Ox 98 O2 Delivery Room Air Capillary Refill : Less Than 3 Seconds Height, Weight, BMI Height: 5'2.00" Weight: 247lbs. 0.0oz. 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 Norm as Tested, Sensory Deficit (HX PERIPHERAL NEUROPATHY), Other (APPEARS TO BE SOMEWHAT MENTALLY CHALLENGED??) Skin: Normal Color, Warm/Dry Progress/Results/Core Measures Suspected Sepsis Recent Fever Within 48 Hours: No Infection Criteria Present: None New/Unexplained Altered Menta: No Sepsis Screen: No Definite Risk SIRS Temperature:99.1 Pulse: 79 Respiratory Rate: 20 Laboratory Tests 01/04/18 16:50: White Blood Count 9.5 Blood Pressure 108 /74 Mean: 85 Laboratory Tests 01/04/18 16:50: Creatinine 1.09, Platelet Count 220, Total Bilirubin 0.4 Results/Orders Lab Results Laboratory Tests Test 01/04/18 16:05 01/04/18 16:50 Range/Units Urine Color YELLOW Urine Clarity CLEAR Urine pH 5 5-9 Urine Specific [place] 1.020 1.016-1.022 Urine Protein 2+ H NEGATIVE Urine Glucose (UA) 3+ H NEGATIVE Urine Ketones NEGATIVE NEGATIVE Urine Nitrite NEGATIVE NEGATIVE Urine Bilirubin NEGATIVE NEGATIVE Urine Urobilinogen NORMAL NORMAL MG/DL Urine Leukocyte Esterase 3+ H NEGATIVE Urine RBC (Auto) NEGATIVE NEGATIVE Urine RBC NONE /HPF Urine WBC 10-25 H /HPF Urine Squamous Epithelial Cells 5-10 /HPF Urine Crystals NONE /LPF Urine Bacteria MODERATE H /HPF Urine Casts NONE /LPF Urine Mucus NEGATIVE /LPF Urine Yeast FEW H /HPF Urine Culture Indicated YES Urine Opiates Screen POSITIVE H NEGATIVE Urine Oxycodone Screen POSITIVE H NEGATIVE Urine Methadone Screen NEGATIVE NEGATIVE Urine Propoxyphene Screen NEGATIVE NEGATIVE Urine Barbiturates Screen NEGATIVE NEGATIVE Ur Tricyclic Antidepressants Screen POSITIVE H NEGATIVE Urine Phencyclidine Screen NEGATIVE NEGATIVE Urine Amphetamines Screen NEGATIVE NEGATIVE Urine Methamphetamines Screen NEGATIVE NEGATIVE Urine Benzodiazepines Screen POSITIVE H NEGATIVE Urine Cocaine Screen NEGATIVE NEGATIVE Urine Cannabinoids Screen NEGATIVE NEGATIVE White Blood Count 9.5 4.3-11.0 10^3/uL Red Blood Count 3.54 L 4.35-5.85 10^6/uL Hemoglobin 10.7 L 11.5-16.0 G/DL Hematocrit 32 L 35-52 % Mean Corpuscular Volume 92 80-99 FL Mean Corpuscular Hemoglobin 30 25-34 PG Mean Corpuscular Hemoglobin Concent 33 32-36 G/DL Red Cell Distribution Width 13.3 10.0-14.5 % Platelet Count 220 130-400 10^3/uL Mean Platelet Volume 9.8 7.4-10.4 FL Neutrophils (%) (Auto) 58 42-75 % Lymphocytes (%) (Auto) 33 12-44 % Monocytes (%) (Auto) 6 0-12 % Eosinophils (%) (Auto) 3 0-10 % Basophils (%) (Auto) 1 0-10 % Neutrophils # (Auto) 5.5 1.8-7.8 X 10^3 Lymphocytes # (Auto) 3.2 1.0-4.0 X 10^3 Monocytes # (Auto) 0.5 0.0-1.0 X 10^3 Eosinophils # (Auto) 0.3 0.0-0.3 10^3/uL Basophils # (Auto) 0.1 0.0-0.1 10^3/uL Sodium Level 134 L 135-145 MMOL/L Potassium Level 3.8 3.6-5.0 MMOL/L Chloride Level 105 98-107 MMOL/L Carbon Dioxide Level 18 L 21-32 MMOL/L Anion Gap 11 5-14 MMOL/L Blood Urea Nitrogen 9 7-18 MG/DL Creatinine 1.09 0.60-1.30 MG/DL Estimat Glomerular Filtration Rate 54 BUN/Creatinine Ratio 8 Glucose Level 357 H 70-105 MG/DL Calcium Level 9.0 8.5-10.1 MG/DL Magnesium Level 1.7 L 1.8-2.4 MG/DL Total Bilirubin 0.4 0.1-1.0 MG/DL Aspartate Amino Transf (AST/SGOT) 19 5-34 U/L Alanine Aminotransferase (ALT/SGPT) 15 0-55 U/L Alkaline Phosphatase 82 40-136 U/L Total Protein 6.3 L 6.4-8.2 GM/DL Albumin 3.6 3.2-4.5 GM/DL Amylase Level 9 L 25-125 U/L Lipase 14 8-78 U/L My Orders Orders - ARBEN DILLON DO Saline Lock/Iv-Start (01/04/18 15:38) Monitor-Rhythm Ecg Trace Only (01/04/18 15:38) Amylase (01/04/18 15:38) Cbc With Automated Diff (01/04/18 15:38) Comprehensive Metabolic Panel (01/04/18 15:38) Lipase (01/04/18 15:38) Ua Culture If Indicated (01/04/18 15:38) Saline Lock/Iv-Start (01/04/18 15:38) Saline Lock/Iv-Start (01/04/18 15:38) Ns Iv 1000 Ml (Sodium Chloride 0.9%) (01/04/18 15:38) Drug Screen Stat (Urine) (01/04/18 15:48) Magnesium (01/04/18 15:48) Accucheck Stat ONCE (01/04/18 15:48) Urine Culture (01/04/18 16:05) Accucheck Stat ONCE (01/04/18 17:50) Ceftriaxone Injection (Rocephin Injectio (01/04/18 18:00) Magnesium 1 Gm/100 Ml Ivpb (Magnesium Coreas (01/04/18 18:00) Phenazopyridine Tablet (Pyridium Tablet) (01/04/18 18:00) Medications Given in ED Current Medications Medications Dose Ordered Sig/Ramiro Route Start Time Stop Time Status Last Admin Dose Admin Ceftriaxone Sodium 1000 mg/ Sodium Chloride 50 ml @ 100 mls/hr ONCE ONCE IV 01/04/18 18:00 01/04/18 18:29 DC 01/04/18 18:31 100 MLS/HR Magnesium Sulfate/ Dextrose 100 ml @ 100 mls/hr ONCE ONCE IV 01/04/18 18:00 01/04/18 18:59 DC 01/04/18 18:32 100 MLS/HR Phenazopyridine HCl 200 mg ONCE ONCE PO 01/04/18 18:00 01/04/18 18:01 DC 01/04/18 18:31 200 MG Sodium Chloride 1,000 ml @ 0 mls/hr Q0M ONCE IV 01/04/18 15:38 01/04/18 15:40 DC 01/04/18 17:16 1,000 MLS/HR Vital Signs/I&O 01/04/18 01/04/18 01/04/18 15:39 19:30 19:35 Temp 99.1 99.1 97.7 Pulse 79 76 72 Resp 20 20 18 B/P (MAP) 108/74 (85) 133/74 (85) 114/74 (87) Pulse Ox 98 98 96 O2 Delivery Room Air Room Air Room Air Capillary Refill : Less Than 3 Seconds Blood Pressure Mean: 85 Progress Note : Progress Note UNEVENTFUL ER STAY NO VOMITING OR DIARRHEA DURING ER STAY Departure Communication (Admissions) 1602--MESSAGE LEFT ON CELL FOR DR. WATTS 1609--SPOKE WITH DR. WATTS, SHE IS AWARE OF PT. ACCEPTS PT FOR ADMIT, ALTHOUGH ALL STUDIES PENDING. WILL CALL HER BACK WITH ANY SIGNIFICANTLY ABNORMAL LAB Impression Primary Impression: TYPE 1 IDDM UNCONTROLLED Additional Impressions: UTI (urinary tract infection) Gastroenteritis Electrolyte imbalance Hypomagnesemia Mild anemia Disposition: ADMITTED INPATIENT Condition: Stable Admissions Decision to Admit Reason: Admit from ER (General) Decision to Admit/Date: Jan 04, 2018 Time/Decision to Admit Time: 16:10 Departure-Patient Inst. Referrals: [facility] (PCP/Family) Primary Care Physician ARBEN DILLON DO Jan 04, 2018 17:23
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
[2018-01-04 17:33] LABS: ALBUMIN 3.6 GM/DL (3.2-4.5); BILIRUBIN,TOTAL 0.4 MG/DL (0.1-1.0); CREATININE SERUM 1.09 MG/DL (0.60-1.30); MAGNESIUM 1.7 MG/DL (1.8-2.4); POTASSIUM 3.8 MMOL/L (3.6-5.0); TOTAL PROTEIN 6.3 GM/DL (6.4-8.2)
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
[2018-01-04] MEDS ORDERED: cefTRIAXone INJECTION 1,000 MG in NS (IVPB) 50 ML IV ONE (18:00)
[2018-01-04] MEDS ORDERED: MAGNESIUM 1 GM/100 ML IVPB 100 ML IV ONE (18:00)
[2018-01-04] MEDS ORDERED: PHENAZOPYRIDINE 100 MG (PYRIDIUM) TABLET PO ONE (18:00)
--- OUTSIDE RECORDS SUMMARY | 2018-01-04 18:58 | XMS REPORT | Clinical Summary ---
Author Author [facility] Address Unknown Phone Unavailable Care Team Providers Care Inform[employer] Mdm Developer Name Role Phone Richard Maria DO Unavailable Richard Maria DO PCP Source Comments Some departments are not documenting in the electronic medical record. If you do not see the information that you expected, contact Release of Information in the Health Information Management department at [phone] for further assistance in locating additional records.[facility] Allergies Not on File Current Medications [...]
[2018-01-04 19:35] VITALS: BP 114/74
[2018-01-04] MEDS ORDERED: ONDANSETRON 4 MG/2 ML (SDV) Z0FRAN IVP PRN (20:15)
[2018-01-04] MEDS ORDERED: ATEN50TA PO (20:45)
[2018-01-04] MEDS ORDERED: ALPRAZolam 0.5 MG (XANAX) TAB PO PRN (20:45)
[2018-01-04] MEDS ORDERED: AMITRIPTYLINE 25 MG (ELAVIL) TAB PO SCH (21:00)
[2018-01-04] MEDS ORDERED: QUEtiapine 100 MG (SEROquel) TAB IMMEDIATE RELEASE PO SCH (21:00)
[2018-01-04] MEDS: NS IV 1000 ML 1,000 ML IV SCH (21:20)
[2018-01-04 21:30] VITALS: BP 135/81
[2018-01-04] MEDS: PHENAZOPYRIDINE 100 MG (PYRIDIUM) TABLET PO SCH (21:50)
[2018-01-04] MEDS: GABAPENTIN 600 MG (NEURONTIN) TAB PO SCH (21:50)
[2018-01-04] MEDS: toPIRamate 25 MG (TOPAMAX) TAB PO SCH (21:50)
[2018-01-04] MEDS: oxyCODONE/APAP 5/325MG (PERCOCET 5) TABLET PO SCH (21:50)
[2018-01-04] MEDS: FAMOTIDINE 20 MG (PEPCID) TABLET PO SCH (21:51)
[2018-01-04] MEDS: inSUlin ASPART (NovoLOG) 1 UNIT/0.01 ML (CHARGE PER UNIT) SC SCH (21:52)
[2018-01-04] MEDS: ATENOLOL 50 MG (TENORMIN) TAB PO SCH (21:54)
[2018-01-05] VITALS (7 sets, daily range): BP systolic 106–139; BP diastolic 62–72
[2018-01-05] MEDS: NS IV 1000 ML 1,000 ML IV SCH ×3 (02:35→08:27)
[2018-01-05] MEDS: inSUlin ASPART (NovoLOG) 1 UNIT/0.01 ML (CHARGE PER UNIT) SC SCH ×2 (05:44→11:04)
[2018-01-05] MEDS: toPIRamate 25 MG (TOPAMAX) TAB PO SCH (08:28)
[2018-01-05] MEDS: oxyCODONE/APAP 5/325MG (PERCOCET 5) TABLET PO SCH (08:28)
[2018-01-05] MEDS: ATENOLOL 50 MG (TENORMIN) TAB PO SCH (08:28)
[2018-01-05] MEDS: PHENAZOPYRIDINE 100 MG (PYRIDIUM) TABLET PO SCH ×2 (08:28→12:49)
[2018-01-05] MEDS: FAMOTIDINE 20 MG (PEPCID) TABLET PO SCH (08:28)
[2018-01-05] MEDS: GABAPENTIN 600 MG (NEURONTIN) TAB PO SCH ×2 (08:29→12:49)
[2018-01-05 08:32] LABS: BASOPHILS % (AUTO) 1 % (0-10); EOSINOPHILS # (AUTO) 0.2 10^3/uL (0.0-0.3); EOSINOPHILS % (AUTO) 3 % (0-10); HEMATOCRIT 32 % (35-52); HEMOGLOBIN 10.4 G/DL (11.5-16.0); LYMPHOCYTES # (AUTO) 2.7 X 10^3 (1.0-4.0); LYMPHOCYTES % (AUTO) 44 % (12-44); MEAN CORPUSCULAR HEMOGLOBIN 30 PG (25-34); MEAN CORPUSCULAR HGB CONC 33 G/DL (32-36); MEAN CORPUSCULAR VOLUME 92 FL (80-99); MEAN PLATELET VOLUME 10.1 FL (7.4-10.4); MONOCYTES # (AUTO) 0.3 X 10^3 (0.0-1.0); MONOCYTES % (AUTO) 4 % (0-12); NEUTROPHILS % (AUTO) 49 % (42-75); PLATELET COUNT 191 10^3/uL (130-400); RED BLOOD COUNT 3.47 10^6/uL (4.35-5.85); RED CELL DISTRIBUTION WIDTH 13.6 % (10.0-14.5); WHITE BLOOD COUNT 6.2 10^3/uL (4.3-11.0)
[2018-01-05 08:50] LABS: ALANINE AMINOTRANSFERASE 14 U/L (0-55); ALBUMIN 3.4 GM/DL (3.2-4.5); ALKALINE PHOSPHATASE 80 U/L (40-136); BILIRUBIN,TOTAL 0.3 MG/DL (0.1-1.0); BUN/CREATININE RATIO 11; CALCIUM 8.4 MG/DL (8.5-10.1); CARBON DIOXIDE 18 MMOL/L (21-32); CHLORIDE 111 MMOL/L (98-107); CREATININE SERUM 0.76 MG/DL (0.60-1.30); GFR ESTIMATED > 60; GLUCOSE 275 MG/DL (70-105); MAGNESIUM 1.9 MG/DL (1.8-2.4); POTASSIUM 3.4 MMOL/L (3.6-5.0); SODIUM 140 MMOL/L (135-145); TOTAL PROTEIN 5.9 GM/DL (6.4-8.2)
[2018-01-05] MEDS ORDERED: PROM25TA14 PO (13:20)
[2018-01-05] MEDS ORDERED: CHOL500049 PO (13:29)
[2018-01-05] MEDS ORDERED: SUCR1ORA5 PO (13:29)
[2018-01-05] MEDS ORDERED: MIDO10TA PO (13:29)
[2018-01-05] MEDS ORDERED: ESOM40CA52 PO (13:29)
[2018-01-05] MEDS ORDERED: NYST1POW22 TOP (13:29)
[2018-01-05] MEDS ORDERED: TIZA4TAB3 PO (13:29)
[2018-01-05] MEDS ORDERED: OXYC-471 PO ×2 (13:29→14:04)
[2018-01-05] MEDS ORDERED: NF-OLOP5ML OP (13:29)
[2018-01-05] MEDS ORDERED: GABAPENTIN 400 MG (NEURONTIN) CAP PO SCH (13:30)
[2018-01-05] MEDS ORDERED: VARE1TAB22 PO (14:04)
[2018-01-05] MEDS ORDERED: [UNRECOGNIZED DRUG - CODE] TP (14:04)
[2018-01-05] MEDS ORDERED: FURO20TA4 PO ×2 (14:04)
[2018-01-05] MEDS ORDERED: CHOL10007 PO (14:04)
[2018-01-05] MEDS ORDERED: SENN8.6T81 PO (14:04)
[2018-01-05] MEDS ORDERED: OMEP40CA36 PO (14:04)
[2018-01-05] MEDS ORDERED: AMOX500C2 PO (14:04)
[2018-01-05] MEDS ORDERED: NYST1000 PO (14:04)
[2018-01-05] MEDS ORDERED: ATEN50TA PO (14:04)
[2018-01-05] MEDS ORDERED: AMOX-358 PO (14:45)
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
--- NOTE | 2018-01-05 15:00 | Discharge Instructions ---
Discharge New [facility] Discharge Medications New, Converted or Re-Newed RX: Transmitted to Pharmacy New Medications: Amoxicillin/Potassium Clav (Augmentin 875-125 Tablet) 1 Each Tablet 1 EACH PO BID, #6 TAB 0 Refills Continued Medications: Acetaminophen (Tylenol Extra Strength) 500 Mg Tablet 1000 MG PO TID PRN for PAIN-MILD, TAB TAKES 2 (500MG) TABLETS Alprazolam (Alprazolam) 0.5 Mg Tablet 0.5 MG PO TID PRN for ANXIETY, TAB Amitriptyline HCl (Amitriptyline HCl) 25 Mg Tablet 25 MG PO HS, TAB Cholecalciferol (Vitamin D3) (Vitamin D3) 1,000 Unit Capsule 1000 UNIT PO DAILY, CAP [place] Starch ([place] Starch) 397 Gm Powder TP BID PRN for GAULDING, EA Diphenhydramine HCl (Benadryl Allergy) 25 Mg Tablet 50 MG PO HS, TAB Escitalopram Oxalate (Escitalopram Oxalate) 20 Mg Tablet 20 MG PO HS, TAB Fluticasone Propionate (Fluticasone Propionate) 16 Gm [place].susp 2 SPRAYS NS HS PRN for CONGESTION, EA Furosemide (Furosemide) 20 Mg Tablet 20 MG PO WeSa, TAB Furosemide (Furosemide) 20 Mg Tablet 20 MG PO DAILY PRN for SWELLING, TAB Gabapentin (Gabapentin) 800 Mg Tablet 800 MG PO QID, TAB Insulin Detemir (Levemir Flextouch) 100 Unit/1 Ml Insuln.pen 30 UNIT SQ HS, EA Insulin Regular, Human (Humulin R U-500 Kwikpen) 500 Unit/1 Ml Insuln.pen 45 UNITS SC AC, EA Levothyroxine Sodium (Levothyroxine Sodium) 75 Mcg Tablet 75 MCG PO DAILY, TAB Liraglutide (Victoza 3-Marino) 0.6 Mg/0.1 Ml Pen.injctr 1.8 MG SQ 1800, EA Midodrine HCl (Midodrine HCl) 10 Mg Tablet 10 MG PO DAILY, TAB Olopatadine (Patanol) 5 Ml Drops 1 DROP OP BID, DROPS Omeprazole (Omeprazole) 40 Mg Capsule.dr 40 MG PO DAILY, CAP Oxycodone HCl/Acetaminophen (Oxycodone-Acetaminophen 5-325) 1 Each Tablet 1 TAB PO HS, TAB Oxycodone HCl/Acetaminophen (Oxycodone-Acetaminophen 5-325) 1 Each Tablet 0.5 TAB PO 0800,1200, TAB Promethazine HCl (Promethazine Tablet) 25 Mg Tablet 25 MG PO BID, TAB Quetiapine Fumarate (Quetiapine Fumarate ER) 50 Mg Tab.er.24h 100 MG PO HS, TAB TAKES 2 (50MG) TABLETS Ranitidine HCl (Zantac) 150 Mg Tablet 150 MG PO BID, TAB Sennosides (Senna Concentrate) 8.6 Mg Tablet 2 TAB PO BID, TAB Sucralfate (Carafate) 1 Gm/10 Ml Oral.susp 1 GM PO QID PRN for STOMACH UPSET, ML Topiramate (Topiramate) 50 Mg Tablet 50 MG PO BID, TAB Discontinued Medications: Amoxicillin (Amoxicillin) 500 Mg Capsule 500 MG PO TID for 7 Days, CAP 7 DAY SUPPLY FILLED 01-04-18 (NOT PICKED UP YET) Atenolol (Atenolol) 50 Mg Tablet 50 MG PO DAILY, TAB Nystatin (Nystatin) 100,000 Unit/1 Ml Oral.susp 1 TBS PO BID PRN for MOUTH SORES, ML Tizanidine HCl (Tizanidine HCl) 4 Mg Tablet 4 MG PO TID PRN for MUSCLE SPASMS, TAB Varenicline Tartrate (Chantix) 1 Mg Tablet 1 MG PO BID, TAB Patient Instructions Goal/Follow Up Appt: Follow up at [facility] on 01/10 at 8:40 am with Rubi Stallings. Activity & Diet Discharge Diet: ADA Diet Activity as Tolerated: Yes Copy Copies To 1: SIDDHARTH Olguin BETHANY N MD Jan 05, 2018 2:50 pm
[2018-01-05] MEDS ORDERED: cefTRIAXone 1 GM/NS 50 ML IVPB IV SCH ×2 (18:00)
== END 2018-01-05 14:45 | disposition home or self-care (01) ==
LOC: EDUNIT# 15:01 → ER 15:02 → 4TH 18:53 → UNDOADMOB 18:53 → 4TH 19:30 → UNDODISOB 01-05 15:13
PROVIDERS: ADMIT Family Medicine; ATTEND Family Medicine
DX: E10.65 Type 1 diabetes mellitus with hyperglycemia (principal); K52.9 Noninfective gastroenteritis and colitis, unspecified; I95.9 Hypotension, unspecified; N39.0 Urinary tract infection, site not specified; D64.9 Anemia, unspecified; E83.42 Hypomagnesemia; E87.8 Other disorders of electrolyte and fluid balance, not elsewhere classified; Z79.4 Long term (current) use of insulin; Z95.5 Presence of coronary angioplasty implant and graft; I25.10 Atherosclerotic heart disease of native coronary artery without angina pectoris; E78.00 Pure hypercholesterolemia, unspecified; I10 Essential (primary) hypertension; E10.42 Type 1 diabetes mellitus with diabetic polyneuropathy; K21.9 Gastro-esophageal reflux disease without esophagitis; M79.7 Fibromyalgia; E66.01 Morbid (severe) obesity due to excess calories; F41.9 Anxiety disorder, unspecified; F32.9 Major depressive disorder, single episode, unspecified; F60.9 Personality disorder, unspecified; R82.99 Other abnormal findings in urine; Z68.42 Body mass index [BMI] 45.0-49.9, adult; F17.210 Nicotine dependence, cigarettes, uncomplicated
CPT/HCPCS: 36415; 80053; 80306; 81000; 82150; 82962; 83690; 83735; 85025; 87045; 87046; 87088; 87324; 87449; 93041; 96361; 96365; 96367; G0378

== ENCOUNTER → 2018-01-30 | Outpatient (CLI) | payer MEDICAID ==
[~2018-01-30] MED LIST changes: +AMOX-358 PO; +CATHETER FLUSH 10 ML SYR IV PRN; +CHOL10007 PO; +CHOL500049 PO; +ESOM40CA52 PO; +IOHEXOL 300 MG/ML 50 ML (OMNIPAQUE 300) VIAL IV ONE; +MIDO10TA PO; +NF-OLOP5ML OP; +NYST1POW22 TOP; +OMEP40CA36 PO; +SENN8.6T81 PO; +SUCR1ORA5 PO; +[UNRECOGNIZED DRUG - CODE] TP
--- NOTE | 2018-01-31 14:58 | Diagnostic Imaging Report ---
INDICATION: Malfunctioning port. Patient presents to the department for a port check. FINDINGS: The patient's port was accessed by oncology nursing. The patient was then brought to the fluoroscopy suite and placed on the table in the supine position. Fluoroscopic imaging over the chest was performed during the injection of contrast through the patient's port. A total of 21 seconds of fluoroscopy was utilized. There is normal passage of contrast through the port tubing with free flow from the tip at the level of the right atrium. There is no kinking or interruption of the port tubing. No extravasation of contrast is seen. The port demonstrated normal aspiration of blood as well as normal injection. The port was flushed with normal saline following contrast administration. IMPRESSION: Normal port check. No complicating features are detected. Dictated by: Dictated on workstation # [id number]
== END ==
LOC: RAD 12:35
PROVIDERS: ATTEND Surgery
DX: T82.9XXA Unspecified complication of cardiac and vascular prosthetic device, implant and graft, initial encounter (principal)
CPT/HCPCS: 36598

== ENCOUNTER 2018-02-27 15:03 | Day surgery (SDC) | payer MEDICAID ==
[2018-02-27] VITALS (10 sets, daily range): BP systolic 101–136; BP diastolic 68–93
[~2018-02-27] VITALS: Ht 157.5 cm; Wt 108.4 kg
[~2018-02-27 15:03] MED LIST changes: -CATHETER FLUSH 10 ML SYR IV PRN; -IOHEXOL 300 MG/ML 50 ML (OMNIPAQUE 300) VIAL IV ONE; -LOSA100T28 PO; +LOSA100T8 PO; -OXYC-202 PO; +OXYC1TAB12 PO
--- OUTSIDE RECORDS SUMMARY | 2018-02-27 15:12 | XMS REPORT | Clinical Summary ---
Author Author [facility] Organization [facility] Address Unknown Phone Unavailable Care Team Providers Care Sample Maker Name Role Phone Richard Maria DO Unavailable Richard Maria DO PCP Source Comments Some departments are not documenting in the electronic medical record. If you do not see the information that you expected, contact Release of Information in the Health Information Management department at [phone] for further assistance in locating additional records.[facility] Allergies Not on File Current Medications [...]
[2018-02-27] MEDS ORDERED: ASPIRIN 81 MG CHEW (CHILDREN'S ASA) ONE (15:16)
[2018-02-27] MEDS ORDERED: NITROGLYCERIN 0.4 MG SL TABS BTL 25'S SL ONE (15:16)
--- OUTSIDE RECORDS SUMMARY | 2018-02-27 15:17 | XMS REPORT ---
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 Z12.39 [place] [address] [place] [id number] [place] [address] 91488- 8170 Dec, [facility] [address] [place] [id number] [place] [address] 80331- 6257 Dec, [facility] [address] [place] [id number] [place] [address] 72700- 2258 Dec, [facility] [address] [place] [id number] [place] [address] 34843- 4478 Dec, Congestive heart failure, unspecified congestive heart [...] Z12.39 and Primary insomnia F51.01 [place] [address] [place] [id number] [place] [address] 96061- 1620 Dec, [place] [address] [place] [id number] [place] [address] 92658- 9955 Nov, Congestive heart failure, unspecified congestive heart [...] wall R22.2 and Anxiety F41.9 [place] [address] [place] [id number] [place] [address] 97665- 8633 Nov, [place] [address] [place] [id number] [place] [address] 75414- 9854 Nov, [facility] [address] [place] [id number] [place] [address] [id number] Dec, Dental examination V72.2 [place] [address] [place] [id number] [place] [address] 93966- 6368 May, [place] [address] [place] [id number] [place] [address] 61895- 0103 May, IMMUNIZATIONS No Known Immunizations SOCIAL HISTORY [...] mellitus, uncontrolled Medical History fibromyalgia per Dr. oHlt Medical History chronic thrush Medical History bulging [...] History section x4 Surgical History Mesh on right side of stomach- hernia repair 06-27 Surgical History Poratacath Placement/Venous Access Device-Left subclavian vein (port for IV access) Dr. Hernandez [facility] 08-29-2013 Surgical History partial hysterectomy Surgical History EGD Hospitalization History transfusion given after delivery Hospitalization History Chest pain, uncontrolled Hyperglycemia--[facility]ia [facility] 12/15/15 Hospitalization History Influenza B Hospitalization History pneumonia Hospitalization History [facility] 07/16/16 Hospitalization History for high sugar 07/12 Hospitalization History ICU-Blood pressure related/elevated blood sugar 2017 Hospitalization History Dehydration, BP low, Labs Low 01/04-01/05/2018
--- OUTSIDE RECORDS SUMMARY | 2018-02-27 15:18 | XMS REPORT ---
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 Feb, 2016 [place] [address] [place] [id number] [place] [address] 12926- 0177 06 Feb, 2016 Type 2 diabetes mellitus with diabetic autonomic (poly) neuropathy E11.43 ; Anxiety F41.9 ; Primary insomnia F51.01 ; Recurrent major depressive disorder, remission status unspecified F33.9 and Acquired hypothyroidism E03.9 [facility] [address], [place] [address]- 3446 Feb, [facility] [address] [place] [id number] [place] [address] 79081- 0956 Jan, Type 2 diabetes mellitus with diabetic autonomic (poly) neuropathy E11.43 ; Anxiety F41.9 ; Salivary gland enlargement K11.1 ; Primary insomnia F51.01 and Recurrent major depressive disorder, remission status unspecified F33.9 [facility] [address] [place] [id number] [place] [address] 18174- 2803 Jan, [facility] [address] [place] [id number] [place] [address] 77461- 5177 Jan, Type 2 diabetes mellitus with diabetic autonomic (poly) neuropathy E11.43 [place] [address] [place] [id number] [place] [address] 43982- 4468 Jan, Type 2 diabetes mellitus with diabetic autonomic (poly) neuropathy E11.43 ; Anxiety F41.9 ; Salivary gland enlargement K11.1 and Primary insomnia F51.01 [facility] [id number] [place] [address] 19699- 4258 Jan, [facility] [address] [place] [id number] [place] [address] 81804- 7252 Jan, Screening breast examination Z12.39 [place] [address] [place] [id number] [place] [address] 84871- 9370 Dec, [facility] [id number] [place] [address] 89041- 3529 Dec, [facility] [id number] [place] [address] 67500- 0887 Dec, [facility] [address] [place] [id number] [place] [address] 71309- 3150 Dec, Congestive heart failure, unspecified congestive heart [...] breast examination Z12.39 and Primary insomnia F51.[id number] [place] [address] 18935- 4873 Dec, [place] [address] [place] [id number] [place] [address] 93404- 1685 Nov, Congestive heart failure, unspecified congestive heart failure chronicity, unspecified congestive heart failure type I50.9 ; Essential hypertension I10 ; Acquired hypothyroidism E03.9 ; Chronic pain syndrome G89.4 ; Type 2 diabetes mellitus with foot ulcer E11.621 ; 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 ; Gastroparesis K31.84 ; Nodule of chest wall R22.2 and Anxiety F41.9 [place] [address] [place] [id number] [place] [address] 62404- 6749 Nov, [place] [address] [place] [id number] [place] [address] 58971- 7222 Nov, [facility] [id number] [place] [address] [id number] Dec, Dental examination V72.2 [place] [address] [place] [id number] [place] [address] 49373- 4005 May, [place] [address] [place] [address] [id number] [place] [address] 86674- 1619 May, IMMUNIZATIONS No Known Immunizations SOCIAL HISTORY Never Assessed REASON FOR VISIT Follow-up Depression PLAN OF CARE Activity Details Follow Up 2 Weeks Reason: Follow-up VITAL SIGNS MEDICATIONS Unknown Medications RESULTS No Results PROCEDURES Procedure Date Ordered Result Body Site Psychotherapy, patient &/family, 45 minutes, established patient December 28, 2017 INSTRUCTIONS MEDICATIONS ADMINISTERED No Known [...]
--- OUTSIDE RECORDS SUMMARY | 2018-02-27 15:19 | XMS REPORT ---
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 [address] 64377- 9264 Feb, [facility] [address] [place] [id number] [place] [address] 05909- 7225 Jan, Type 2 diabetes mellitus with diabetic autonomic (poly) neuropathy E11.43 ; Anxiety F41.9 ; Salivary gland enlargement K11.1 ; Primary insomnia F51.01 and Recurrent major depressive disorder, remission status unspecified F33.9 [facility] [address] [place] [id number] [place] [address] 01128- 1680 Jan, [facility] [address] [place] [id number] [place] [address] 53055- 8382 Jan, Type 2 diabetes mellitus with diabetic autonomic (poly) neuropathy E11.43 [place] [address] [place] [id number] [place] [address] 36842- 7826 Jan, Type 2 diabetes mellitus with diabetic autonomic (poly) neuropathy E11.43 ; Anxiety F41.9 ; Salivary gland enlargement K11.1 and Primary insomnia F51.01 [facility] [address] [place] [id number] [place] [address] 40856- 0612 Jan, [place] [address] [place] [id number] [place] [address] 47370- 2263 Jan, Screening breast examination Z12.39 [place] [address] [place] [id number] [place] [address] 89309- 5176 Dec, [facility] [address] [place] [id number] [place] [address] 30263- 7395 Dec, [facility] [address] [place] [id number] [place] [address] 97195- 7573 Dec, [facility] [address] [place] [id number] [place] [address] 44568- 3199 Dec, Congestive heart failure, unspecified congestive heart [...] breast examination Z12.39 and Primary insomnia F51.01 [place] [address] [place] [id number] [place] [address] 77302- 9024 Dec, [place] [address] [place] [id number] [place] [address] 53001- 8021 Nov, Congestive heart failure, unspecified congestive heart failure chronicity, unspecified congestive heart failure type I50.9 ; Essential hypertension I10 ; Acquired hypothyroidism E03.9 ; Chronic pain syndrome G89.4 ; Type 2 diabetes mellitus with foot ulcer E11.621 ; 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 ; Gastroparesis K31.84 ; Nodule of chest wall R22.2 and Anxiety F41.9 [place] [address] [place] [id number] [place] [address] 20040- 8683 Nov, [place] [address] [place] [id number] [place] [address] 70262- 2338 Nov, [facility] [address] [place] [address] [id number] Dec, Dental examination V72.2 [place] [address] [place] [id number] [place] [address] 38093- 8873 May, [place] [address] [place] [id number] [place] [address] 22053- 4528 May, IMMUNIZATIONS No Known Immunizations SOCIAL HISTORY Never Assessed REASON FOR VISIT Controlled Med Refill 12/28 PLAN OF CARE VITAL SIGNS MEDICATIONS Medication Instructions Dosage Frequency Start Date End Date Duration Status Alprazolam 0.5 MG Orally 3 times a day 1 tablet 8h 15 Jul, 2017 28 days Active Oxycodone-Acetaminophen 5-325 MG Orally 2 times a day 1 tablet as needed 12h Dec, 28 days Active RESULTS No Results PROCEDURES [...] uncontrolled Hyperglycemia--Via [facility] 12/15/15 Hospitalization History Influenza B Hospitalization History pneumonia Hospitalization History DKA-VC 07/16/16 Hospitalization History for high sugar 07/12 Hospitalization History ICU-Blood pressure related/elevated blood sugar 2017 Hospitalization History Dehydration, BP low, Labs Low 01/04-01/05/2018
--- OUTSIDE RECORDS SUMMARY | 2018-02-27 15:20 | XMS REPORT ---
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 mellitus with diabetic autonomic (poly) neuropathy E11.43 ; Anxiety F41.9 ; Salivary gland enlargement K11.1 ; Primary insomnia F51.01 and Recurrent major depressive disorder, remission status unspecified F33.9 [facility] [address] [place] [id number] [place] [address] 25053- 5878 Jan, [facility] [address] [place] [id number] [place] [address] 97322- 6411 Jan, Type 2 diabetes mellitus with diabetic autonomic (poly) neuropathy E11.43 [place] [address] [place] [id number] [place] [address] 95785- 6644 Jan, Type 2 diabetes mellitus with diabetic autonomic (poly) neuropathy E11.43 ; Anxiety F41.9 ; Salivary gland enlargement K11.1 and Primary insomnia F51.01 [facility] [id number] [place] [address] 41809- 8119 Jan, [facility] [address] [place] [id number] [place] [address] 35218- 4704 Jan, Screening breast examination Z12.39 [place] [address] [place] [id number] [place] [address] 33959- 9739 Dec, [facility] [id number] [place] [address] 54978- 6546 Dec, [facility] [id number] [place] [address] 28427- 6631 Dec, [facility] [address] [place] [id number] [place] [address] 36805- 3429 Dec, Congestive heart failure, unspecified congestive heart [...] breast examination Z12.39 and Primary insomnia F51.[id number] [place] [address] 48671- 8519 Dec, [place] [address] [place] [id number] [place] [address] 73635- 8491 Nov, Congestive heart failure, unspecified congestive heart [...] wall R22.2 and Anxiety F41.9 [place] [address] [place] [id number] [place] [address] 97869- 4172 Nov, [place] [address] [place] [id number] [place] [address] 25726- 3280 Nov, [facility] [address] [place] [address] [id number] Dec, Dental examination V72.2 [place] [address] [place] [id number] [place] [address] 11799- 1807 May, [place] [address] [place] [id number] [place] [address] 55947- 3692 May, IMMUNIZATIONS No Known Immunizations SOCIAL HISTORY Never Assessed REASON FOR VISIT Follow-up Depression PLAN OF CARE Activity Details Follow Up 2 Weeks Reason: Follow-up VITAL SIGNS MEDICATIONS Unknown Medications RESULTS No Results PROCEDURES Procedure Date Ordered Result Body Site Psychotherapy, patient &/family, 45 minutes, established patient December 26, 2017 INSTRUCTIONS MEDICATIONS ADMINISTERED No Known Medications [...] delivery Hospitalization History Chest pain, uncontrolled Hyperglycemia--[facility] 12/15/15 Hospitalization History Influenza B Hospitalization History pneumonia Hospitalization History DKA-[facility] 07/16/16 Hospitalization History for high sugar 07/12 Hospitalization History ICU-Blood pressure related/elevated blood sugar 2017 Hospitalization History Dehydration, BP low, Labs Low 01/04-01/05/2018
--- OUTSIDE RECORDS SUMMARY | 2018-02-27 15:22 | XMS REPORT ---
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 diabetic autonomic (poly) neuropathy E11.43 ; Anxiety F41.9 ; Salivary gland enlargement K11.1 ; Primary insomnia F51.01 and Recurrent major depressive disorder, remission status unspecified F33.9 [facility] [address] [place] [id number] [place] [address] 92224- 9656 Jan, [facility] [address] [place] [id number] [place] [address] 98270- 1460 Jan, Type 2 diabetes mellitus with diabetic autonomic (poly) neuropathy E11.43 [place] [address] [place] [id number] [place] [address] 21688- 2488 Jan, Type 2 diabetes mellitus with diabetic autonomic (poly) neuropathy E11.43 ; Anxiety F41.9 ; Salivary gland enlargement K11.1 and Primary insomnia F51.01 [facility] [id number] [place] [address] 67284- 9739 Jan, [facility] [address] [place] [id number] [place] [address] 37740- 3549 Jan, Screening breast examination Z12.39 [place] [address] [place] [id number] [place] [address] 57675- 6554 Dec, [facility] [id number] [place] [address] 68568- 3951 Dec, [facility] [id number] [place] [address] 40499- 7518 Dec, [facility] [address] [place] [id number] [place] [address] 51978- 2453 Dec, Congestive heart failure, unspecified congestive heart [...] Z12.39 and Primary insomnia F51.01 [place] [id number] [place] [address] 50862- 8082 Dec, [place] [address] [place] [id number] [place] [address] 60779- 0126 Nov, Congestive heart failure, unspecified congestive heart [...] wall R22.2 and Anxiety F41.9 [place] [address] [place] [id number] [place] [address] 45825- 5094 Nov, [address] 43896- 2026 Nov, [facility] [address] [place] [id number] [place] [address] [id number] Dec, Dental examination V72.2 [place] [address] [place] [id number] [place] [address] 75142- 5020 May, [place] [id number] [place] [address] 35659- 2266 May, IMMUNIZATIONS No Known Immunizations SOCIAL HISTORY [...]
--- OUTSIDE RECORDS SUMMARY | 2018-02-27 15:23 | XMS REPORT ---
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 remission status unspecified F33.9 and Acquired hypothyroidism E03.9 [facility] [address], [place] [address]- 8964 Feb, [facility] [address] [place] [id number] [place] [address] 54343- 1739 Jan, Type 2 diabetes mellitus with diabetic autonomic (poly) neuropathy E11.43 ; Anxiety F41.9 ; Salivary gland enlargement K11.1 ; Primary insomnia F51.01 and Recurrent major depressive disorder, remission status unspecified F33.9 [facility] [address] [place] [id number] [place] [address] 01699- 7319 Jan, [facility] [address] [place] [id number] [place] [address] 80789- 4053 Jan, Type 2 diabetes mellitus with diabetic autonomic (poly) neuropathy E11.43 [place] [address] [place] [id number] [place] [address] 92424- 7910 Jan, Type 2 diabetes mellitus with diabetic autonomic (poly) neuropathy E11.43 ; Anxiety F41.9 ; Salivary gland enlargement K11.1 and Primary insomnia F51.01 [facility] [id number] [place] [address] 20726- 8069 Jan, [facility] [address] [place] [id number] [place] [address] 65796- 1391 Jan, Screening breast examination Z12.39 [place] [address] [place] [id number] [place] [address] 39162- 9803 Dec, [facility] [id number] [place] [address] 61895- 9441 Dec, [facility] [id number] [place] [address] 25618- 3456 Dec, [facility] [address] [id number] [place] [address] 50381- 6396 Dec, Congestive heart failure, unspecified congestive heart [...] breast examination Z12.39 and Primary insomnia F51.01 [place] [id number] [place] [address] 66543- 3907 Dec, [place] [address] [place] [address] [id number] [place] [address] 00713- 9842 Nov, Congestive heart failure, unspecified congestive heart failure chronicity, unspecified congestive heart failure type I50.9 ; Essential hypertension I10 ; Acquired hypothyroidism E03.9 ; Chronic pain syndrome G89.4 ; Type 2 diabetes mellitus with foot ulcer E11.621 ; 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 ; Gastroparesis K31.84 ; Nodule of chest wall R22.2 and Anxiety F41.9 [place] [address] [place] [id number] [place] [address] 36970- 5144 Nov, [address] 80841- 2540 Nov, [facility] [id number] [place] [address] [id number] Dec, Dental examination V72.2 [place] [address] [place] [id number] [place] [address] 17800- 7263 May, [place] [id number] [place] [address] 43054- 1327 May, IMMUNIZATIONS No Known Immunizations SOCIAL HISTORY [...]
--- OUTSIDE RECORDS SUMMARY | 2018-02-27 15:24 | XMS REPORT ---
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 Type 2 diabetes mellitus with diabetic autonomic (poly) neuropathy E11.43 [facility] [id number] [place] [address] 27493- 5849 Jan, Type 2 diabetes mellitus with diabetic autonomic (poly) neuropathy E11.43 ; Anxiety F41.9 ; Salivary gland enlargement K11.1 and Primary insomnia F51.01 [facility] [id number] [place] [address] 80162- 8047 Jan, [facility] [id number] [place] [address] 73352- 0670 Jan, Screening breast examination Z12.39 [facility] [id number] [place] [address] 23102- 5322 Dec, [facility] [id number] [place] [address] 67626- 7585 Dec, [facility] [id number] [place] [address] 74834- 8688 Dec, [facility] [id number] [place] [address] 29860- 9797 Dec, Congestive heart failure, unspecified congestive heart [...] breast examination Z12.39 and Primary insomnia F51.01 [place] [id number] [place] [address] 10706- 6196 Dec, [facility] [id number] [place] [address] 25434- 0884 Nov, Congestive heart failure, unspecified congestive heart failure chronicity, unspecified congestive heart failure type I50.9 ; Essential hypertension I10 ; Acquired hypothyroidism E03.9 ; Chronic pain syndrome G89.4 ; Type 2 diabetes mellitus with foot ulcer E11.621 ; 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 ; Gastroparesis K31.84 ; Nodule of chest wall R22.2 and Anxiety F41.9 [facility] [id number] [place] [address] 68841- 7840 Nov, [address] 79757- 3026 Nov, [facility] [id number] [place] [address] [phone] Dec, Dental examination V72.2 [place] [id number] [place] [address] 40920- 5090 May, [place] [id number] [place] [address] 01584- 5207 May, IMMUNIZATIONS No Known Immunizations SOCIAL HISTORY [...] Influenza B Hospitalization History pneumonia Hospitalization History [facility] 07/16/16 Hospitalization History for high sugar 07/12 Hospitalization History ICU-Blood pressure related/elevated blood sugar 2017 Hospitalization History Dehydration, BP low, Labs Low 01/04-01/05/2018
--- OUTSIDE RECORDS SUMMARY | 2018-02-27 15:25 | XMS REPORT ---
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 [address] 20396- 6221 Dec, [place] [id number] [place] [address] 62360- 5126 Dec, [place] [id number] [place] [address] 30983- 2595 Dec, Congestive heart failure, unspecified congestive heart [...] examination Z12.39 and Primary insomnia F51.[id number] [place] [address] 84100- 0817 Dec, [place] [id number] [place] [address] 52786- 3086 Nov, Congestive heart failure, unspecified congestive heart [...] wall R22.2 and Anxiety F41.9 [place] [address] 67493- 1068 Nov, [place] [address] 13775- 6382 Nov, [facility] [address] [id number] Dec, Dental examination V72.2 [place] [id number] [place] [address] 85107- 2828 May, [place] [id number] [place] [address] 64708- 5610 May, IMMUNIZATIONS No Known Immunizations SOCIAL HISTORY [...] Influenza B Hospitalization History pneumonia Hospitalization History [facility] 07/16/16 Hospitalization History for high sugar 07/12 Hospitalization History ICU-Blood pressure related/elevated blood sugar 2017 Hospitalization History Dehydration, BP low, Labs Low 01/04-01/05/2018
--- OUTSIDE RECORDS SUMMARY | 2018-02-27 15:27 | XMS REPORT ---
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 9131 Dec, [facility] [id number] [place] [address] 72510- 3874 Dec, [facility] [id number] [place] [address] 44466- 4476 Dec, Congestive heart failure, unspecified congestive heart [...] Z12.39 and Primary insomnia F51.01 [facility] [id number] [place] [address] 41072- 1529 Dec, [facility] [id number] [place] [address] 30847- 9806 Nov, Congestive heart failure, unspecified congestive heart [...] wall R22.2 and Anxiety F41.9 [facility] [id number] [place] [address] 87386- 0613 Nov, [facility] [id number] [place] [address] 50793- 0196 Nov, [facility] [id number] [place] [address] [phone] Dec, Dental examination V72.2 [facility] [id number] [place] [address] 92829- 2839 May, [facility] [address] 53653- 9081 May, IMMUNIZATIONS No Known Immunizations SOCIAL HISTORY Never Assessed 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 VISIT 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 PLAN OF CARE Activity Details Follow Up 3 Months Reason:pain VITAL SIGNS Height 62 in 2017-12-15 Weight 248 lbs 2017-12-15 Temperature 97.5 degrees Fahrenheit 2017-12-15 Heart Rate 94 bpm 2017-12-15 Respiratory Rate 20 2017-12-15 Oximetry 98 % 2017-12-15 BMI 45.35 kg/m2 2017-12-15 Blood pressure systolic 86 mmHg 2017-12-15 Blood pressure diastolic 54 mmHg 2017-12-15 MEDICATIONS Medication Instructions Dosage Frequency Start Date End Date Duration Status Fluticasone Propionate 50MCG/ACT Nasally Once a day 1 spray in each nostril 24h Active Zantac 150 MG Orally twice a day 1 tablet 12h 90 days Active OneTouch Verio Flex System w/Device as directed Active Topamax 50MG Orally Twice a day 1 tablet 12h Active Glucometer 1 glucometer Check sugars 4 times daily 6h Dec, Active Oxygen 3L nasal canal Active Oxycodone-Acetaminophen 5-325 MG Orally 2 times a day 1 tablet as needed 12h Sep, 28 days Active Nystatin 744510 UNIT/GM Externally Twice a day apply to abdominal fold twice a day 12h Active Lancets Lancets subcutaneously 4 times a day test blood sugar 4 times per day 6h Dec, Active Benadryl Allergy 25 MG Orally Once a day at bedtime 2 tablet as needed Active Amitriptyline HCl 25MG Orally Once a day 1 tablet 24h Active Test strips test strips subcutaneously 4 times a day as directed 6h Jan Active Levemir Flexpen 100 UNIT/ML Subcutaneous at bedtime 30 units Active HumuLIN R U-500 KwikPen 500 UNIT/ML Subcutaneous 3 times a day 45 units 8h Active Levothyroxine Sodium 75 mcg Orally Once a day 1 tablet 24h Active Carafate 1 GM/10ML Orally 4 times a day before meals 10 ml at bedtime on an empty stomach before meals Nov, Feb, 30 day(s) Active Promethazine HCl 25MG 1 tablet as needed 2 times a day Orally 28 days Active Victoza 18 MG/3ML Subcutaneous Once a day 1.2mg 24h Active Insulin Syringe 31G X 11/08 Active Alprazolam 0.5 MG Orally 3 times a day 1 tablet 8h Jul, 28 days Active Midodrine HCl 10 mg Orally Once a day 1 tablet 24h Active Esomeprazole Magnesium 40 mg Orally Once a day on an empty stomach 1 capsule Nov, 30 day(s) Active Gabapentin 800 MG Orally 4 times a day 1 tablet 6h 90 days Active Vitamin D (Ergocalciferol) 11064 UNIT Orally once weekly 1 capsule Active Seroquel XR 50MG Orally Once a day 2 tablets 24h Active Escitalopram Oxalate 20 mg Orally Once a day 1 tablet 24h 30 Active RESULTS No Results PROCEDURES Procedure Date Ordered Result Body Site URINALYSIS, AUTO, W/O SCOPE December 15, 2017 LAB NOT BILLED BY [facility] December 15, 2017 INSTRUCTIONS MEDICATIONS ADMINISTERED No Known Medications [...]
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
--- OUTSIDE RECORDS SUMMARY | 2018-02-27 15:28 | XMS REPORT ---
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 congestive heart [...] breast examination Z12.39 and Primary insomnia F51.01 [place] [address] [place] [id number] [place] [address] 85293- 3328 Dec, [place] [address] [place] [id number] [place] [address] 68078- 9894 Nov, Congestive heart failure, unspecified congestive heart failure chronicity, unspecified congestive heart failure type I50.9 ; Essential hypertension I10 ; Acquired hypothyroidism E03.9 ; Chronic pain syndrome G89.4 ; Type 2 diabetes mellitus with foot ulcer E11.621 ; 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 ; Gastroparesis K31.84 ; Nodule of chest wall R22.2 and Anxiety F41.9 [place] [address] [place] [id number] [place] [address] 86045- 7039 Nov, [place] [address] [place] [id number] [place] [address] 60306- 7650 Nov, [facility] [address] [id number] Dec, Dental examination V72.2 [place] [address] [place] [id number] [place] [address] 99520- 4688 May, [place] [address] [place] [id number] [place] [address] 50933- 6323 May, IMMUNIZATIONS No Known Immunizations SOCIAL HISTORY Never Assessed REASON FOR VISIT rib pain-HUGO horner, hurts to eat, stomach hurts, hard to swallow , chest pain PLAN OF CARE Activity Details Follow Up 1-2 Week Reason:ER f/u VITAL SIGNS Height 62 in 2017-12-04 Weight 243.7 lbs 2017-12-04 Temperature 98.6 degrees Fahrenheit 2017-12-04 Heart Rate 56 bpm 2017-12-04 Respiratory Rate 18 2017-12-04 BMI 44.57 kg/m2 2017-12-04 Blood pressure systolic 98 mmHg 2017-12-04 Blood pressure diastolic 62 mmHg 2017-12-04 MEDICATIONS Medication Instructions Dosage Frequency Start Date End Date Duration Status Zantac 150 MG Orally twice a day 1 tablet 12h 90 days Active Glucometer 1 glucometer Check sugars 4 times daily 6h Dec, Active Gabapentin 800 MG Orally 4 times a day 1 tablet 6h 90 days Active Chantix Continuing Month Marino 1 MG Orally Twice a day 1 tablet 12h Sep, Jan, 30 day(s) Active Levemir Flexpen 100 UNIT/ML Subcutaneous at bedtime 30 units Active Oxycodone-Acetaminophen 5-325 MG Orally 2 times a day 1 tablet as needed 12h Sep, 28 days Active Tizanidine HCl 4 MG Orally Three times a day 1 tablet as needed 8h 28 Active Topamax 50MG Orally Twice a day 1 tablet 12h Active Alprazolam 0.5 MG Orally 3 times a day 1 tablet 8h Jul, 28 days Active Amitriptyline HCl 25MG Orally Once a day 1 tablet 24h Active Seroquel XR 50MG Orally Once a day 2 tablets 24h Active Victoza 18 MG/3ML Subcutaneous Once a day 1.2mg 24h Active SnappCloud System w/Device as directed Active Esomeprazole Magnesium 40 mg Orally Once a day on an empty stomach 1 capsule Nov, 30 day(s) Active Luis Fernando Contour Test - In Vitro 3 times a day as directed 8h Active Escitalopram Oxalate 20 mg Orally Once a day 1 tablet 24h 30 Active Fluticasone Propionate 50MCG/ACT Nasally Once a day 1 spray in each nostril 24h Active Levothyroxine Sodium 75 mcg Orally Once a day 1 tablet 24h Active Lancets Lancets subcutaneously 4 times a day test blood sugar 4 times per day 6h Dec, Active Oxygen 3L nasal canal Active Insulin Syringe 31G X 5/16 Active Test strips test strips subcutaneously 4 times a day as directed 6h Jan Active HumuLIN R U-500 KwikPen 500 UNIT/ML Subcutaneous 3 times a day 45 units 8h Active Nystatin 075195 UNIT/GM Externally Twice a day apply to abdominal fold twice a day 12h Active Metoprolol Succinate ER 25 MG Orally twice a day 1.5 tablet 12h Active Benadryl Allergy 25 MG Orally Once a day at bedtime 2 tablet as needed Active Promethazine HCl 25MG 1 tablet as [...]
--- OUTSIDE RECORDS SUMMARY | 2018-02-27 15:29 | XMS REPORT ---
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 [place] [id number] [place] [address] 13352- 6237 May, [place] [id number] [place] [address] 58899- 1645 May, IMMUNIZATIONS No Known Immunizations SOCIAL HISTORY Never Assessed REASON FOR VISIT Eye Exam PLAN OF CARE VITAL SIGNS MEDICATIONS Unknown [...] vein (port for IV access) Dr. Hernandez [facility] 08-29-2013 Surgical History partial hysterectomy Surgical History EGD Hospitalization History transfusion given after delivery Hospitalization History Chest pain, uncontrolled Hyperglycemia--[facility]ia [facility]3] 12/15/15 Hospitalization History Influenza B Hospitalization History pneumonia Hospitalization History [facility] 07/16/16 Hospitalization History for high sugar 07/12 Hospitalization History ICU-Blood pressure related/elevated blood sugar 2017 Hospitalization History Dehydration, BP low, Labs Low 01/04-01/05/2018
[2018-02-27] MEDS ORDERED: NITROGLYCERIN 0.4 MG SL TABS BTL 25'S SL PRN ×2 (15:30→18:45)
[2018-02-27] MEDS ORDERED: ASPIRIN 81 MG CHEW (CHILDREN'S ASA) PO ONE (15:30)
--- OUTSIDE RECORDS SUMMARY | 2018-02-27 15:30 | XMS REPORT ---
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 [id number] [place] [address] 54546- 5043 Dec, [place] [address] [place] [id number] [place] [address] 57854- 5549 Dec, [place] [address] [place] [id number] [place] [address] 55885- 5011 Dec, [place] [address] [place] [id number] [place] [address] 41772- 1924 Dec, Congestive heart failure, unspecified congestive heart [...] breast examination Z12.39 and Primary insomnia F51.01 [place] [address] [place] [address] 65314- 6021 Dec, [place] [address] [place] [address] 36398- 8592 Nov, Congestive heart failure, unspecified congestive heart failure chronicity, unspecified congestive heart failure type I50.9 ; Essential hypertension I10 ; Acquired hypothyroidism E03.9 ; Chronic pain syndrome G89.4 ; Type 2 diabetes mellitus with foot ulcer E11.621 ; 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 ; Gastroparesis K31.84 ; Nodule of chest wall R22.2 and Anxiety F41.9 [facility] [address] [facility] [id number] 0395 Nov, [facility] [address] [place] [id number] 5955 Nov, [facility] [address] [facility] [id number] [id number] Dec, Dental examination V72.2 [facility] [address] [place] [id number] 5922 May, [facility] [address] [facility] [id number] 3279 May, IMMUNIZATIONS No Known Immunizations SOCIAL HISTORY Never Assessed REASON FOR VISIT Follow-up Depression/Anxiety PLAN OF CARE Activity Details Follow Up 2 Weeks and the call in list Reason: Follow-up VITAL SIGNS MEDICATIONS Unknown Medications RESULTS No Results PROCEDURES Procedure Date Ordered Result Body Site Psychotherapy, patient &/family, 45 minutes, established patient November 30, 2017 INSTRUCTIONS MEDICATIONS ADMINISTERED No Known [...]
--- OUTSIDE RECORDS SUMMARY | 2018-02-27 15:31 | XMS REPORT ---
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 [address] [facility] [id number] [place] [id number] Dec, Dental examination V72.2 [facility] [address] [facility] [id number] [place] [address]- 2546 May, [facility] [address] [facility] [id number] [place] [address]- 2546 May, IMMUNIZATIONS No Known Immunizations SOCIAL HISTORY Never Assessed REASON FOR VISIT med order PLAN OF CARE VITAL SIGNS MEDICATIONS Medication Instructions Dosage Frequency Start Date End Date Duration Status Senna 8.6 MG Orally Once a day 2-4 tablets 24h Nov, 30 day(s) Active RESULTS No Results PROCEDURES [...] vein (port for IV access) Dr. Hernandez [facility] 08-29-2013 Surgical History partial hysterectomy Surgical History EGD Hospitalization History transfusion given after delivery Hospitalization History Chest pain, uncontrolled Hyperglycemia--[facility]ia [facility] 12/15/15 Hospitalization History Influenza B Hospitalization History pneumonia Hospitalization History DKA-H 07/16/16 Hospitalization History for high sugar 07/12 Hospitalization History ICU-Blood pressure related/elevated blood sugar 2017 Hospitalization History Dehydration, BP low, Labs Low 01/04-01/05/2018
--- OUTSIDE RECORDS SUMMARY | 2018-02-27 15:33 | XMS REPORT ---
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 [facility] [id number] [place] [address]- 2546 May, [facility] [address] [facility] [id number] [place] [address]- 2546 May, IMMUNIZATIONS No Known Immunizations SOCIAL HISTORY Never Assessed REASON FOR VISIT Controlled Med Refill PLAN OF CARE VITAL SIGNS MEDICATIONS Medication Instructions Dosage Frequency Start Date End Date Duration Status Alprazolam 0.5 MG Orally 3 times a day 1 tablet 8h 15 Jul, 2017 28 days Active Oxycodone-Acetaminophen 5-325 MG Orally 2 times a day 1 tablet as needed 12h 11 Sep, 2017 28 days Active RESULTS No Results PROCEDURES [...] delivery Hospitalization History Chest pain, uncontrolled Hyperglycemia--[facility] 12/15/15 Hospitalization History Influenza B Hospitalization History pneumonia Hospitalization History DKA-VC 07/16/16 Hospitalization History for high sugar 07/12 Hospitalization History ICU-Blood pressure related/elevated blood sugar 2017 Hospitalization History Dehydration, BP low, Labs Low 01/04-01/05/2018
--- OUTSIDE RECORDS SUMMARY | 2018-02-27 15:34 | XMS REPORT ---
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 MEDICATIONS Unknown [...] vein (port for IV access) Dr. Hernandez [facility] 08-29-2013 Surgical History partial [...]
--- OUTSIDE RECORDS SUMMARY | 2018-02-27 15:35 | XMS REPORT ---
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 gland enlargement K11.1 ; Primary insomnia F51.01 and Recurrent major depressive disorder, remission status unspecified F33.9 [facility], [place] [address] [address]- 7941 Jan, [facility], [place] [address] [place] [address] 63966- 6928 Jan, Type 2 diabetes mellitus with diabetic autonomic (poly) neuropathy E11.43 [facility] [place] [address] [address]- 6621 Jan, Type 2 diabetes mellitus with diabetic autonomic (poly) neuropathy E11.43 ; Anxiety F41.9 ; Salivary gland enlargement K11.1 and Primary insomnia F51.01 [place] [address] [address]- 1202 Jan, [place] [address] [place] [address] 69338- 8083 Jan, Screening breast examination Z12.39 [place] [id number] [place] [address] 66379- 8528 Dec, [place] [id number] [place] [address] 28376- 1760 Dec, [place] [id number] [place] [address] 85173- 5657 Dec, [place] [id number] [place] [address] 49728- 0163 Dec, Congestive heart failure, unspecified congestive heart [...] breast examination Z12.39 and Primary insomnia F51.01 [place] [address] [place] [address] 53110- 5510 Dec, [place] [address] [place] [address] 07163- 7597 Nov, Congestive heart failure, unspecified congestive heart [...] F41.9 [facility], [place] [address] [facility] [id number] [address] 8563 Nov, [facility] [place] [address] 7527 Nov, [facility] [address] [facility] [id number] [id number] Dec, Dental examination V72.2 [place] [address] [address]- 4865 May, [facility], [place] [address] [facility] [id number] [address]- 4260 May, IMMUNIZATIONS No Known Immunizations SOCIAL HISTORY Never Assessed REASON FOR VISIT Lab F/U-AHarrymanRN PLAN OF CARE Activity Details Follow Up after CT Reason:abd pain/gastroparesis VITAL SIGNS Height 62 in 2017-11-23 Weight 249.2 lbs 2017-11-23 Temperature 97.4 degrees Fahrenheit 2017-11-23 Heart Rate 80 bpm 2017-11-23 Respiratory Rate 20 2017-11-23 BMI 45.57 kg/m2 2017-11-23 Blood pressure systolic 108 mmHg 2017-11-23 Blood pressure diastolic 70 mmHg 2017-11-23 MEDICATIONS Medication Instructions Dosage Frequency Start Date End Date Duration Status Tizanidine HCl 4 MG Orally Three times a day 1 tablet as needed 8h 28 Active Benadryl Allergy 25 MG Orally Once a day at bedtime 2 tablet as needed Active Insulin Syringe 31G X 516 Active Nystatin 547830 UNIT/GM Externally Twice a day apply to abdominal fold twice a day 12h Active Levemir Flexpen 100 UNIT/ML Subcutaneous at bedtime 30 units Active MethylPREDNISolone 32 MG 1 tablet with food or milk twelve hours prior to contrast administration and 2 hours prior to contrast administration October 30 day(s) Active Promethazine HCl 25MG 1 tablet as needed 2 times a day Orally 28 days Active Fluticasone Propionate 50MCG/ACT Nasally Once a day 1 spray in each nostril 24h Active Oxycodone-Acetaminophen 5-325 MG Orally 2 times a day 1 tablet as needed 12h Sep, 28 days Active Amoxicillin 500 MG Orally every 8 hrs 1 tablet 8h 10 day(s) Active Amitriptyline HCl 25MG Orally Once a day 1 tablet 24h Active Patanol 0.1% Ophthalmic Twice a day 1 drop into affected eye 12h Active Escitalopram Oxalate 20 mg Orally Once a day 1 tablet 24h 30 Active HumuLIN R U-500 KwikPen 500 UNIT/ML Subcutaneous 3 times a day 45 units 8h Active Levothyroxine Sodium 75 mcg Orally Once a day 1 tablet 24h Active Erythromycin Base 250 MG Orally 3 times a day 1 tablet 8h October, Jan, 30 days Active DiphenhydrAMINE HCl 50 mg Orally two hours prior to contrast administration 1 tablet October, Active Seroquel XR 50MG Orally Once a day 2 tablets 24h Active Test strips test strips subcutaneously 4 times a day as directed 6h Jan Active Lancets Lancets subcutaneously 4 times a day test blood sugar 4 times per day 6h Dec, Active Furosemide 20MG Orally Once a day 1 tablet 24h Active Glucometer 1 glucometer Check sugars 4 times daily 6h Dec, Active Oxygen 3L nasal canal Active Luis Fernando Contour Test - In Vitro 3 times a day as directed 8h Active Topamax 50MG Orally Twice a day 1 tablet 12h Active Victoza 18 MG/3ML Subcutaneous Once a day 1.2mg 24h Active Chantix Continuing Month Marino 1 MG Orally Twice a day 1 tablet 12h 30 Sep, 2017 Jan, 30 day(s) Active Metoprolol Succinate ER 25 MG Orally twice a day 1.5 tablet 12h Active ShawarmanjiTouch Verio Flex System w/Device as directed Active Alprazolam 0.5 MG Orally 3 times a day 1 tablet 8h 15 Jul, 2017 Active Gabapentin 800 MG Orally 4 times a day 1 tablet 6h 90 days Active Zantac 150 MG Orally [...] delivery Hospitalization History Chest pain, uncontrolled Hyperglycemia--[facility]ia [facility] 12/15/15 Hospitalization History Influenza B Hospitalization History pneumonia Hospitalization History [facility] 07/16/16 Hospitalization History for high sugar 07/12 Hospitalization History ICU-Blood pressure related/elevated blood sugar 2017 Hospitalization History Dehydration, BP low, Labs Low 01/04-01/05/2018
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
--- OUTSIDE RECORDS SUMMARY | 2018-02-27 15:42 | XMS REPORT ---
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 PLAN OF CARE Activity Details Follow Up 2 Weeks Reason: Follow-up VITAL SIGNS MEDICATIONS Unknown Medications RESULTS No Results PROCEDURES Procedure Date Ordered Result Body Site Psychotherapy, patient &/family, 45 minutes, established patient November 16, 2017 INSTRUCTIONS MEDICATIONS ADMINISTERED No Known Medications [...] Influenza B Hospitalization History pneumonia Hospitalization History [facility] 07/16/16 Hospitalization History for high sugar 07/12 Hospitalization History ICU-Blood pressure related/elevated blood sugar 2017 Hospitalization History Dehydration, BP low, Labs Low 01/04-01/05/2018
--- OUTSIDE RECORDS SUMMARY | 2018-02-27 15:43 | XMS REPORT ---
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 [address] 21636- 8907 Dec, [place] [id number] [place] [address] 22239- 4324 Dec, Congestive heart failure, unspecified congestive heart [...] breast examination Z12.39 and Primary insomnia F51.01 [place] [address] [place] [id number] [place] [address] 54564- 2543 Dec, [place] [address] [place] [id number] [place] [address] 79698- 7184 Nov, Congestive heart failure, unspecified congestive heart failure chronicity, unspecified congestive heart failure type I50.9 ; Essential hypertension I10 ; Acquired hypothyroidism E03.9 ; Chronic pain syndrome G89.4 ; Type 2 diabetes mellitus with foot ulcer E11.621 ; 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 ; Gastroparesis K31.84 ; Nodule of chest wall R22.2 and Anxiety F41.9 [place] [address] [place] [id number] [place] [address] 80779- 4132 Nov, [place] [address] [place] [id number] [place] [address] 76601- 5811 Nov, [facility] [id number] [place] [address] [id number] Dec, Dental examination V72.2 [place] [address] [place] [id number] [place] [address] 10882- 6335 May, [place] [address] [place] [id number] [place] [address] 25518- 5040 May, IMMUNIZATIONS No Known Immunizations SOCIAL HISTORY Never Assessed REASON FOR VISIT PreMed for CT Scan PLAN OF CARE VITAL SIGNS MEDICATIONS Medication Instructions Dosage Frequency Start Date End Date Duration Status MethylPREDNISolone 32 MG 1 tablet with food or milk twelve hours prior to contrast administration and 2 hours prior to contrast administration October 30 day(s) Active DiphenhydrAMINE HCl 50 mg Orally two hours prior to contrast administration 1 tablet October, Active RESULTS No Results PROCEDURES No Known [...] Influenza B Hospitalization History pneumonia Hospitalization History [facility] 07/16/16 Hospitalization History for high sugar 07/12 Hospitalization History ICU-Blood pressure related/elevated blood sugar 2017 Hospitalization History Dehydration, BP low, Labs Low 01/04-01/05/2018
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
--- OUTSIDE RECORDS SUMMARY | 2018-02-27 15:46 | XMS REPORT ---
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 IMMUNIZATIONS No Known Immunizations SOCIAL HISTORY [...] vein (port for IV access) Dr. Hernandez [facility] 08-29-2013 Surgical History partial hysterectomy [...]
--- OUTSIDE RECORDS SUMMARY | 2018-02-27 15:47 | XMS REPORT ---
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 [facility] 07/[facility]16 Hospitalization History for high sugar 07/12 Hospitalization History ICU-Blood pressure related/elevated blood sugar 2017 Hospitalization History Dehydration, BP low, Labs Low 01/04-01/05/2018
--- OUTSIDE RECORDS SUMMARY | 2018-02-27 15:48 | XMS REPORT ---
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 I10 ; Acquired hypothyroidism E03.9 ; Chronic pain syndrome G89.4 ; Type 2 diabetes mellitus with foot ulcer E11.621 ; 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 ; Gastroparesis K31.84 ; Nodule of chest wall R22.2 and Anxiety F41.9 [place] [address] [place] [id number] [place] [address] 86574- 1957 Nov, [place] [address] [place] [id number] [place] [address] 15954- 5507 Nov, [facility] [address] [place] [id number] [place] [address] [id number] Dec, Dental examination V72.2 [place] [address] [place] [id number] [place] [address] 51825- 5888 May, [place] [address] [place] [id number] [place] [address] 61536- 8111 May, IMMUNIZATIONS No Known Immunizations SOCIAL HISTORY Never Assessed REASON FOR VISIT PA CT Scan abd & Pelvis with PLAN OF CARE VITAL SIGNS MEDICATIONS Unknown [...]
--- OUTSIDE RECORDS SUMMARY | 2018-02-27 15:49 | XMS REPORT ---
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 reordered PLAN OF CARE Activity Details Follow Up after CT Reason: VITAL SIGNS Height 62 in 2017-11-08 Weight 246.0 lbs 2017-11-08 Temperature 99.0 degrees Fahrenheit 2017-11-08 Heart Rate 80 bpm 2017-11-08 Respiratory Rate 20 2017-11-08 BMI 44.99 kg/m2 2017-11-08 Blood pressure systolic 113 mmHg 2017-11-08 Blood pressure diastolic 65 mmHg 2017-11-08 MEDICATIONS Medication Instructions Dosage Frequency Start Date End Date Duration Status [employer] w/Device as directed Active Metoprolol Succinate ER 25 MG Orally twice a day 1.5 tablet 12h Active Zantac 150 MG Orally twice a day 1 tablet 12h 90 days Active Victoza 18 MG/3ML Subcutaneous Once a day 1.2mg 24h Active Escitalopram Oxalate 20 mg Orally Once a day 1 tablet 24h 30 Active Levemir Flexpen 100 UNIT/ML Subcutaneous at bedtime 30 units Active Benadryl Allergy 25 MG Orally Once a day at bedtime 2 tablet as needed Active Oxycodone-Acetaminophen 5-325 MG Orally 2 times a day 1 tablet as needed 12h Sep, 28 days Active Lancets Lancets subcutaneously 4 times a day test blood sugar 4 times per day 6h 18 Dec, 2016 Active Luis Fernando Contour Test - In Vitro 3 times a day as directed 8h Active Levothyroxine Sodium 75 mcg Orally Once a day 1 tablet 24h Active Nystatin 995306 UNIT/GM Externally Twice a day apply to abdominal fold twice a day 12h Active Alprazolam 0.5 MG Orally 3 times a day 1 tablet 8h 15 Jul, 2017 Active Fluticasone Propionate 50MCG/ACT Nasally Once a day 1 spray in each nostril 24h Active Test strips test strips subcutaneously 4 times a day as directed 6h Jan Active Insulin Syringe 31G X 5/16 Active Glucometer 1 glucometer Check sugars 4 times daily 6h Dec, Active Amoxicillin 500 MG Orally every 8 hrs 1 tablet 8h 10 day(s) Active Promethazine HCl 25MG 1 tablet as needed 2 times a day Orally 28 days Active Chantix Continuing Month Marino 1 MG Orally Twice a day 1 tablet 12h Sep, Jan, 30 day(s) Active Topamax 50MG Orally Twice a day 1 tablet 12h Active HumuLIN R U-500 KwikPen 500 UNIT/ML Subcutaneous 3 times a day 45 units 8h Active Seroquel XR 50MG Orally Once a day 2 tablets 24h Active Amitriptyline HCl 25MG Orally Once a day 1 tablet 24h Active Tizanidine HCl 4 MG Orally Three times a day 1 tablet as needed 8h 28 Active Gabapentin 800 MG Orally 4 times a day 1 tablet 6h 90 days Active Erythromycin Base 250 MG Orally 3 times a day 1 tablet 8h October, Jan, 30 days Active Furosemide 20MG Orally Once a day 1 tablet 24h Active Chantix Starting Month Marino 0.5 MG X 11 & 1 MG X 42 Orally per package instructions as directed Sep, October, 28 days Active Patanol 0.1% Ophthalmic Twice a day 1 drop into affected eye 12h Active Oxygen 3L nasal canal Active RESULTS No Results PROCEDURES Procedure Date Ordered Result Body Site [facility] November 08, 2017 URINALYSIS, AUTO, W/O SCOPE November 08, 2017 VENIPUNCT, ROUTINE* November 08, 2017 INSTRUCTIONS MEDICATIONS ADMINISTERED No Known [...] delivery Hospitalization History Chest pain, uncontrolled Hyperglycemia--[facility] 12/15/15 Hospitalization History Influenza B Hospitalization History pneumonia Hospitalization History [facility] 07/16/16 Hospitalization History for high sugar 07/12 Hospitalization History ICU-Blood pressure related/elevated blood sugar 2017 Hospitalization History Dehydration, BP low, Labs Low 01/04-01/05/2018
--- OUTSIDE RECORDS SUMMARY | 2018-02-27 15:50 | XMS REPORT ---
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 2016 [facility] [place] [facility] [id number] [place] [address] 16638- 7240 Feb, [facility] [place] [facility] [id number] [place] [address] 77976- 2691 Feb, [facility] [place] [facility] [id number] [place] [address] 32104- 6311 Feb, Type 2 diabetes mellitus with diabetic autonomic (poly) neuropathy E11.43 ; Anxiety F41.9 ; Primary insomnia F51.01 ; Recurrent major depressive disorder, remission status unspecified F33.9 and Acquired hypothyroidism E03.9 [facility] [place] [facility] [id number] [place] [address] 35393- 8888 06 Feb, 2016 [facility] [place] [facility] [address] [place] [address] 72426- 5643 Jan, Type 2 diabetes mellitus with diabetic autonomic (poly) neuropathy E11.43 ; Anxiety F41.9 ; Salivary gland enlargement K11.1 ; Primary insomnia F51.01 and Recurrent major depressive disorder, remission status unspecified F33.9 [facility] [place] [facility] [address], [place] [address]- 0661 Jan, [facility] [place] [facility] [address], [place] [address]- 8264 Jan, Type 2 diabetes mellitus with diabetic autonomic (poly) neuropathy E11.43 [facility] [place] [facility] [address], [place] [address]- 2197 Jan, Type 2 diabetes mellitus with diabetic autonomic (poly) neuropathy E11.43 ; Anxiety F41.9 ; Salivary gland enlargement K11.1 and Primary insomnia F51.01 [facility] [place] [facility] [address], [place] [address]- 7507 Jan, [facility] [place] [facility] [address], [place] [address]- 5305 Jan, Screening breast examination Z12.39 [place] [address], [place] [address]- 7246 Dec, [facility] [place] [facility] [id number] [place] [address] 69174- 3766 Dec, [facility] [place] [facility] [id number] [place] [address] 14442- 3905 Dec, [facility] [place] [facility] [id number] [place] [address] 42062- 6494 Dec, Congestive heart failure, unspecified congestive heart [...] breast examination Z12.39 and Primary insomnia F51.01 [facility] [place] [facility] [address] [place] [address] 61685- 7889 Dec, [facility] [place] [facility] [address] [place] [address] 46657- 9710 Nov, Congestive heart failure, unspecified congestive heart failure chronicity, unspecified congestive heart failure type I50.9 ; Essential hypertension I10 ; Acquired hypothyroidism E03.9 ; Chronic pain syndrome G89.4 ; Type 2 diabetes mellitus with foot ulcer E11.621 ; 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 ; Gastroparesis K31.84 ; Nodule of chest wall R22.2 and Anxiety F41.9 [facility] [place] [facility] [address] [place] [address] 51631- 5471 Nov, [facility] [place] [facility] [address] [place] [address] 32304- 5166 Nov, [facility] [address] [place] [address] [id number] Dec, Dental examination V72.2 [facility] [place] [facility] [address] [facility] [id number] [address]- 2546 May, [facility] [place] [facility] [address] [facility] [id number] [address]- 2546 May, IMMUNIZATIONS Vaccine Route Administration Date Status PHENERGAN 50MG/ML IM Intramuscular November 02, 2017 Administered SOCIAL HISTORY Never Assessed REASON FOR VISIT Nausea/blood in urine Pt c/o nausea, sweaty, clammy, has an echo tomorrow, has also noticed blood in urine, states when she left a urine sample just now she felt scratchy burning sensation with urination. Pt also has an infected tooth. HUGO Pimentel PLAN OF CARE Activity Details Follow Up prn Reason: VITAL SIGNS Height 62 in 2017-11-02 Weight 244.0 lbs 2017-11-02 Temperature 97.8 degrees Fahrenheit 2017-11-02 Heart Rate 100 bpm 2017-11-02 Respiratory Rate 20 2017-11-02 BMI 44.62 kg/m2 2017-11-02 Blood pressure systolic 136 mmHg 2017-11-02 Blood pressure diastolic 78 mmHg 2017-11-02 MEDICATIONS Medication Instructions Dosage Frequency Start Date End Date Duration Status Benadryl Allergy 25 MG Orally Once a day at bedtime 2 tablet as needed Active Seroquel XR 50MG Orally Once a day 2 tablets 24h Active Patanol 0.1% Ophthalmic Twice a day 1 drop into affected eye 12h Active Test strips test strips subcutaneously 4 times a day as directed 6h Jan Active Zantac 150 MG Orally twice a day 1 tablet 12h 90 days Active Glucometer 1 glucometer Check sugars 4 times daily 6h Dec, Active Insulin Syringe 31G X 5/16 Active Oxycodone-Acetaminophen 5-325 MG Orally every 6 hrs 1 tablet as needed 6h October, Not-Taking HumuLIN R U-500 KwikPen 500 UNIT/ML Subcutaneous 3 times a day 45 units 8h Active Lancets Lancets subcutaneously 4 times a day test blood sugar 4 times per day 6h Dec, Active Levothyroxine Sodium 75 mcg Orally Once a day 1 tablet 24h Active Nystatin 204294 UNIT/GM Externally Twice a day apply to abdominal fold twice a day 12h Active Chantix Continuing Month Marino 1 MG Orally Twice a day 1 tablet 12h Sep, Jan, 30 day(s) Active Alprazolam 0.5 MG Orally 3 times a day 1 tablet 8h 15 Jul, 2017 Active Chantix Starting Month Marino 0.5 MG X 11 & 1 MG X 42 Orally per package instructions as directed Sep, October, 28 days Active Promethazine HCl 25MG 1 tablet as needed 2 times a day Orally 28 days Active Levemir Flexpen 100 UNIT/ML Subcutaneous at bedtime 30 units Active Victoza 18 MG/3ML Subcutaneous Once a day 1.2mg 24h Active OneToAepona Verio Flex System w/Device as directed Active Oxycodone-Acetaminophen 5-325 MG Orally 2 times a day 1 tablet as needed 12h Sep, 28 days Active Fluticasone Propionate 50MCG/ACT Nasally Once a day 1 spray in each nostril 24h Active Nystatin 891422 UNIT/ML Mouth/Throat Four times a day 5 ml 6h Sep, October, 14 days Active Topamax 50MG Orally Twice a day 1 tablet 12h Active Gabapentin 800 MG Orally 4 times a day 1 tablet 6h 90 days Active Furosemide 20MG Orally Once a day 1 tablet 24h Active Tizanidine HCl 4 MG Orally Three times a day 1 tablet as needed 8h 28 Active Escitalopram Oxalate 20 mg Orally Once a day 1 tablet 24h 30 Active Luis Fernando Contour Test - In Vitro 3 times a day as directed 8h Active Amitriptyline HCl 25MG Orally Once a day 1 tablet 24h Active Metoprolol Succinate ER 25 MG Orally twice a day 1.5 tablet 12h Active Amoxicillin 500 MG Orally every 8 hrs 1 tablet 8h 10 day(s) Active Alprazolam 0.5 MG Orally TID PRN 1 tablet October, Not-Taking Oxygen 3L nasal canal Active RESULTS No Results PROCEDURES Procedure Date Ordered Result Body Site PHENERGAN 50MG/ML November 02, 2017 THER/PROPH/DIAG INJ, SC/IM November 02, 2017 INSTRUCTIONS MEDICATIONS ADMINISTERED No Known [...] Hospitalization History Chest pain, uncontrolled Hyperglycemia--[facility] 12/15/15 Hospitalization History Influenza B Hospitalization History pneumonia Hospitalization History [facility] 07/16/16 Hospitalization History for high sugar 07/12 Hospitalization History ICU-Blood pressure related/elevated blood sugar 2017 Hospitalization History Dehydration, BP low, Labs Low 01/04-01/05/2018
[2018-02-27 15:51] LABS: BASOPHILS % (AUTO) 1 % (0-10); EOSINOPHILS # (AUTO) 0.2 10^3/uL (0.0-0.3); EOSINOPHILS % (AUTO) 3 % (0-10); HEMATOCRIT 34 % (35-52); HEMOGLOBIN 11.1 G/DL (11.5-16.0); LYMPHOCYTES # (AUTO) 2.4 X 10^3 (1.0-4.0); LYMPHOCYTES % (AUTO) 37 % (12-44); MEAN CORPUSCULAR HEMOGLOBIN 30 PG (25-34); MEAN CORPUSCULAR HGB CONC 33 G/DL (32-36); MEAN CORPUSCULAR VOLUME 90 FL (80-99); MEAN PLATELET VOLUME 9.8 FL (7.4-10.4); MONOCYTES # (AUTO) 0.4 X 10^3 (0.0-1.0); MONOCYTES % (AUTO) 6 % (0-12); NEUTROPHILS # (AUTO) 3.5 X 10^3 (1.8-7.8); NEUTROPHILS % (AUTO) 55 % (42-75); PLATELET COUNT 206 10^3/uL (130-400); RED BLOOD COUNT 3.74 10^6/uL (4.35-5.85); RED CELL DISTRIBUTION WIDTH 13.3 % (10.0-14.5); WHITE BLOOD COUNT 6.5 10^3/uL (4.3-11.0)
--- OUTSIDE RECORDS SUMMARY | 2018-02-27 15:52 | XMS REPORT ---
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 Dosage Frequency Start Date End Date Duration Status Asadzolam 0.5 MG Orally 3 times a day 1 tablet 8h 15 Jul, 2017 Active Amitriptyline HCl 25MG Orally Once a day 1 tablet 24h Active Oxycodone-Acetaminophen 5-325 MG Orally every 6 hrs 1 tablet as needed 6h October, Active Tizanidine HCl 4 MG Orally Three times a day 1 tablet as needed 8h 28 Active Alprazolam 0.5 MG Orally TID PRN 1 tablet October, Active Oxycodone-Acetaminophen 5-325 MG Orally 2 times a day 1 tablet as needed 12h Sep, 28 days Active RESULTS No Results PROCEDURES [...]
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
--- OUTSIDE RECORDS SUMMARY | 2018-02-27 15:54 | XMS REPORT ---
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 ; Gastroparesis K31.84 ; Nodule of chest wall R22.2 and Anxiety F41.9 [place] [address] [place] [id number] [place] [address] 99548- 7651 Nov, [place] [address] [place] [id number] [place] [address] 06199- 6518 Nov, [facility] [address] [place] [address] [id number] Dec, Dental examination V72.2 [place] [address] [place] [id number] [place] [address] 42220- 0336 May, [place] [address] [place] [id number] [place] [address] 37212- 5104 May, IMMUNIZATIONS No Known Immunizations SOCIAL HISTORY Never Assessed REASON FOR VISIT Returned call PLAN OF CARE VITAL SIGNS MEDICATIONS [...] vein (port for IV access) Dr. Hernandez [facility] 08-29-2013 Surgical History partial hysterectomy [...]
--- OUTSIDE RECORDS SUMMARY | 2018-02-27 15:55 | XMS REPORT ---
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 enlargement K11.1 ; Primary insomnia F51.01 and Recurrent major depressive disorder, remission status unspecified F33.9 [facility] [id number] [place] [address] 80762- 8979 Jan, [place] [address] [place] [id number] [place] [address] 18728- 7190 Jan, Type 2 diabetes mellitus with diabetic autonomic (poly) neuropathy E11.43 [place] [address] [place] [id number] [place] [address] 37851- 4827 Jan, Type 2 diabetes mellitus with diabetic autonomic (poly) neuropathy E11.43 ; Anxiety F41.9 ; Salivary gland enlargement K11.1 and Primary insomnia F51.01 [place] [address] [address]- 0911 Jan, [facility] [address] [place] [id number] [place] [address] 94926- 0086 Jan, Screening breast examination Z12.39 [place] [address] [place] [id number] [place] [address] 12406- 3851 Dec, [facility] [address] [place] [id number] [place] [address] 03180- 7894 Dec, [place] [id number] [place] [address] 04650- 0962 Dec, [place] [address] [place] [id number] [place] [address] 45785- 6331 Dec, Congestive heart failure, unspecified congestive heart [...] breast examination Z12.39 and Primary insomnia F51.01 [place] [address] 16266- 0561 Dec, [place] [address] [place] [id number] [place] [address] 97873- 0199 Nov, Congestive heart failure, unspecified congestive heart failure chronicity, unspecified congestive heart failure type I50.9 ; Essential hypertension I10 ; Acquired hypothyroidism E03.9 ; Chronic pain syndrome G89.4 ; Type 2 diabetes mellitus with foot ulcer E11.621 ; 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 ; Gastroparesis K31.84 ; Nodule of chest wall R22.2 and Anxiety F41.9 [place] [address] [place] [id number] [place] [address] 15649- 3315 Nov, [place] [address] [place] [id number] [place] [address] 44437- 7825 Nov, [facility] [id number] [place] [address] [phone] Dec, Dental examination V72.2 [place] [address] [place] [id number] [place] [address] 11494- 7254 May, [place] [address] [place] [id number] [place] [address] 65990- 5199 May, IMMUNIZATIONS No Known Immunizations SOCIAL HISTORY Never Assessed REASON FOR VISIT BH Follow-up Depression/Anxiety PLAN OF CARE Activity Details Follow Up 2 Weeks Reason: Follow-up VITAL SIGNS MEDICATIONS Unknown Medications RESULTS No Results PROCEDURES Procedure Date Ordered Result Body Site Psychotherapy, patient &/family, 45 minutes, established patient November 08, 2017 INSTRUCTIONS MEDICATIONS ADMINISTERED No [...] B Hospitalization History pneumonia Hospitalization History [facility] 07/16/16 Hospitalization History for high sugar 07/12 Hospitalization History ICU-Blood pressure related/elevated blood sugar 2017 Hospitalization History Dehydration, BP low, Labs Low 01/04-01/05/2018
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
--- OUTSIDE RECORDS SUMMARY | 2018-02-27 15:58 | XMS REPORT ---
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 History ICU-Blood pressure related/elevated blood sugar 2017 Hospitalization History Dehydration, BP low, Labs Low 01/04-01/05/2018
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
--- OUTSIDE RECORDS SUMMARY | 2018-02-27 16:00 | XMS REPORT ---
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 pneumonia Hospitalization History [facility] 07/16/16 Hospitalization History for high sugar 07/12 Hospitalization History ICU-Blood pressure related/elevated blood sugar 2017 Hospitalization History Dehydration, BP low, Labs Low 01/04-01/05/2018
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
--- OUTSIDE RECORDS SUMMARY | 2018-02-27 16:11 | XMS REPORT ---
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 Twice a day 1 drop into affected eye 12h Active OneTouch Verio Flex System w/Device as directed Active HumuLIN R U-500 KwikPen 500 UNIT/ML Subcutaneous 3 times a day 45 units 8h Active Furosemide 20MG Orally Once a day 1 tablet 24h Active Victoza 18 MG/3ML Subcutaneous Once a day 1.2mg 24h Active Nystatin 612087 UNIT/GM Externally Twice a day apply to abdominal fold twice a day 12h Active Topamax 50 mg Orally Twice a day 1 tablet 12h 90 Active Test strips test strips subcutaneously 4 times a day as directed 6h Jan Active Gabapentin 800 MG Orally 4 times a day 1 tablet 6h 90 days Active Zantac 150 MG Orally twice a day 1 tablet 12h 30 days Active Lancets Lancets subcutaneously 4 times a day test blood sugar 4 times per day 6h Dec, Active Escitalopram Oxalate 20 mg Orally Once a day 1 tablet 24h 30 Active Promethazine HCl 25MG 1 tablet as needed 2 times a day Orally 28 days Active Cetirizine HCl 10 MG Orally Once a day 1 tablet 24h 20 Jul, 2017 Sep, 30 day(s) Active Tizanidine HCl 4 MG Orally Three times a day 1 tablet as needed 8h 28 Active Levothyroxine Sodium 75 mcg Orally Once a day 1 tablet 24h Active Benadryl Allergy 25 MG Orally Once a day at bedtime 2 tablet as needed Active Metoprolol Succinate ER 25 MG Orally twice a day 1.5 tablet 12h Active Glucometer 1 glucometer Check sugars 4 times daily 6h Dec, Active Alprazolam 0.5 MG Orally 3 times a day 1 tablet 8h 15 Jul, 2017 Active Insulin Syringe 31G X 11/08 Active RESULTS No Results PROCEDURES No Known [...] Chest pain, uncontrolled Hyperglycemia--Via [facility] [place] 12/15/15 Hospitalization History Influenza B Hospitalization History pneumonia Hospitalization History [facility] 07/16/16 Hospitalization History for high sugar 07/12 Hospitalization History ICU-Blood pressure related/elevated blood sugar 2017 Hospitalization History Dehydration, BP low, Labs Low 01/04-01/05/2018
[2018-02-27 16:12] LABS: INR 1.1 (0.8-1.4); PROTHROMBIN TIME PATIENT 13.8 SEC (12.2-14.7)
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
[2018-02-27 16:13] LABS: ALANINE AMINOTRANSFERASE 18 U/L (0-55); ALBUMIN 3.5 GM/DL (3.2-4.5); ALKALINE PHOSPHATASE 88 U/L (40-136); BILIRUBIN,TOTAL 0.4 MG/DL (0.1-1.0); BUN/CREATININE RATIO 6; CALCIUM 8.7 MG/DL (8.5-10.1); CARBON DIOXIDE 23 MMOL/L (21-32); CHLORIDE 102 MMOL/L (98-107); CREATININE SERUM 0.84 MG/DL (0.60-1.30); GFR ESTIMATED > 60; GLUCOSE 299 MG/DL (70-105); LIPASE 15 U/L (8-78); MAGNESIUM 1.9 MG/DL (1.8-2.4); POTASSIUM 3.3 MMOL/L (3.6-5.0); SODIUM 136 MMOL/L (135-145); TOTAL PROTEIN 6.1 GM/DL (6.4-8.2)
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
--- NOTE | 2018-02-27 16:18 | Diagnostic Imaging Report ---
INDICATION: Arm numbness and chest pain. Frontal chest obtained at 4:00 p.m. and compared to 12/04/2017. FINDINGS: Heart and mediastinal silhouette are normal in appearance. The lungs are clear. There is no pneumothorax or pleural fluid. Port-A-Cath is unchanged with tip overlying the SVC. IMPRESSION: Negative chest. Dictated by: Dictated on workstation # [id number]
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
[2018-02-27 16:19] LABS: MYOGLOBIN SERUM 26.5 NG/ML (10.0-92.0)
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
--- OUTSIDE RECORDS SUMMARY | 2018-02-27 16:22 | XMS REPORT ---
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 History transfusion given after delivery Hospitalization History Chest pain, uncontrolled Hyperglycemia--[facility]ia [facility] 12/15/15 Hospitalization History Influenza B Hospitalization History pneumonia Hospitalization History [facility] 07/16/16 Hospitalization History for high sugar 07/12 Hospitalization History ICU-Blood pressure related/elevated blood sugar 2017 Hospitalization History Dehydration, BP low, Labs Low 01/04-01/05/2018
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
--- OUTSIDE RECORDS SUMMARY | 2018-02-27 16:24 | XMS REPORT ---
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 Active Nystatin 897254 UNIT/GM Externally Twice a day apply to abdominal fold twice a day 12h Active Test strips test strips subcutaneously 4 times a day as directed 6h Jan Active Benadryl Allergy 25 MG Orally Once a day at bedtime 2 tablet as needed Active Tizanidine HCl 4 MG Orally Three times a day 1 tablet as needed 8h 28 Active HumuLIN R U-500 KwikPen 500 UNIT/ML Subcutaneous 3 times a day 45 units 8h Active Glucometer 1 glucometer Check sugars 4 times daily 6h Dec, Active RESULTS No Results PROCEDURES [...] vein (port for IV access) Dr. Hernandez [facility] 08-29-2013 Surgical History partial [...]
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
--- OUTSIDE RECORDS SUMMARY | 2018-02-27 16:29 | XMS REPORT ---
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 September 23, 2017 GLUCOSE BLOOD TEST September 23, 2017 INSTRUCTIONS MEDICATIONS ADMINISTERED No Known [...] delivery Hospitalization History Chest pain, uncontrolled Hyperglycemia--[facility] 12/15/15 Hospitalization History Influenza B Hospitalization History pneumonia Hospitalization History [facility] 07/16/16 Hospitalization History for high sugar 07/12 Hospitalization History ICU-Blood pressure related/elevated blood sugar 2017 Hospitalization History Dehydration, BP low, Labs Low 01/04-01/05/2018
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
--- OUTSIDE RECORDS SUMMARY | 2018-02-27 16:48 | XMS REPORT ---
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 sugars 4 times daily 6h Dec, Active Nystatin 883446 UNIT/GM Externally Twice a day apply to abdominal fold twice a day 12h Active Metoprolol Succinate ER 25 MG Orally twice a day 1 tablet 12h Active mPortico Flex System w/Device as directed Active Cetirizine HCl 10 MG Orally Once a day 1 tablet 24h 20 Jul, 2017 Sep, 30 day(s) Active Luis Fernando Contour Test - In Vitro 3 times a day as directed 8h Active Levothyroxine Sodium 75 mcg Orally Once a day 1 tablet 24h Active Victoza 18 MG/3ML Subcutaneous Once a day 1.2mg 24h Active RESULTS No Results PROCEDURES Procedure Date Ordered Result Body Site URINALYSIS, AUTO, W/O SCOPE September 06, 2017 [facility] September 06, 2017 INSTRUCTIONS MEDICATIONS ADMINISTERED No [...]
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
--- OUTSIDE RECORDS SUMMARY | 2018-02-27 17:03 | XMS REPORT ---
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 HISTORY Never Assessed REASON FOR VISIT Follow-up Depression PLAN OF CARE Activity Details Follow Up 2 Weeks Reason: Follow-up VITAL SIGNS MEDICATIONS Unknown Medications RESULTS No Results PROCEDURES Procedure Date Ordered Result Body Site Psychotherapy, patient &/family, 45 minutes, established patient December 14, 2017 INSTRUCTIONS MEDICATIONS ADMINISTERED No Known [...] vein (port for IV access) Dr. [facility] 08-29-2013 Surgical History partial hysterectomy Surgical History [...]
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
--- OUTSIDE RECORDS SUMMARY | 2018-02-27 17:06 | XMS REPORT ---
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 Assessed REASON FOR VISIT [facility] Follow up-[facility], Pt was seen at the hospital for low blood pressure and high sugar PLAN OF CARE Activity Details Follow Up 4 Weeks Reason: VITAL SIGNS Height 62 in 2017-12-08 Weight 251 lbs 2017-12-08 Temperature 97.8 degrees Fahrenheit 2017-12-08 Heart Rate 80 bpm 2017-12-08 Respiratory Rate 20 2017-12-08 BMI 45.90 kg/m2 2017-12-08 Blood pressure systolic 102 mmHg 2017-12-08 Blood pressure diastolic 54 mmHg 2017-12-08 MEDICATIONS Medication Instructions Dosage Frequency Start Date End Date Duration Status Compliance Science System w/Device as directed Active Escitalopram Oxalate 20 mg Orally Once a day 1 tablet 24h 30 Active Esomeprazole Magnesium 40 mg Orally Once a day on an empty stomach 1 capsule Nov, 30 day(s) Active Topamax 50MG Orally Twice a day 1 tablet 12h Active Tizanidine HCl 4 MG Orally Three times a day 1 tablet as needed 8h 28 Active Levemir Flexpen 100 UNIT/ML Subcutaneous at bedtime 30 units Active Test strips test strips subcutaneously 4 times a day as directed 6h Jan Active Chantix Continuing Month Marino 1 MG Orally Twice a day 1 tablet 12h Sep, Jan, 30 day(s) Active Gabapentin 800 MG Orally 4 times a day 1 tablet 6h 90 days Active Victoza 18 MG/3ML Subcutaneous Once a day 1.2mg 24h Active Insulin Syringe 31G X 5/16 Active Lancets Lancets subcutaneously 4 times a day test blood sugar 4 times per day 6h Dec, Active Nystatin 351855 UNIT/GM Externally Twice a day apply to abdominal fold twice a day 12h Active Carafate 1 GM/10ML Orally 4 times a day before meals 10 ml at bedtime on an empty stomach before meals Nov, Feb, 30 day(s) Active Oxycodone-Acetaminophen 5-325 MG Orally 2 times a day 1 tablet as needed 12h Sep, 28 days Active Zantac 150 MG Orally twice a day 1 tablet 12h 90 days Active Fluticasone Propionate 50MCG/ACT Nasally Once a day 1 spray in each nostril 24h Active HumuLIN R U-500 KwikPen 500 UNIT/ML Subcutaneous 3 times a day 45 units 8h Active Vitamin D (Ergocalciferol) 51327 UNIT Orally once weekly 1 capsule Active Seroquel XR 50MG Orally Once a day 2 tablets 24h Active Benadryl Allergy 25 MG Orally Once a day at bedtime 2 tablet as needed Active Promethazine HCl 25MG 1 tablet as needed 2 times a day Orally 28 days Active Metoprolol Succinate ER 25 MG Orally twice a day 1.5 tablet 12h Active Amitriptyline HCl 25MG Orally Once a day 1 tablet 24h Active Fluconazole 150 MG Orally every 72 hr 1 tablet Nov, Nov, 6 days Active Midodrine HCl 10 mg Orally Once a day 1 tablet 24h Active Furosemide 20MG Orally Once a day 1 tablet 24h Active Luis Fernando Contour Test - In Vitro 3 times a day as directed 8h Active Alprazolam 0.5 MG Orally 3 times a day 1 tablet 8h 15 Jul, 2017 28 days Active Glucometer 1 glucometer Check sugars 4 times daily 6h Dec, Active Oxygen 3L nasal canal Active Levothyroxine Sodium 75 mcg Orally Once a day 1 tablet 24h Active RESULTS Name Result Date Reference Range UA LONG DIP (IN HOUSE) Lot # [id number] Exp date 04/25/2018 Clarity Clear Color dark yellow Odor none GLU +1 ASHLI neg KET neg SG 1.020 BLO negative pH 6.0 Protein neg URO 0.2 NIT neg RADHA neg Lot # Exp date PROCEDURES Procedure Date Ordered Result Body Site URINALYSIS, AUTO, W/O SCOPE December 08, 2017 INSTRUCTIONS MEDICATIONS ADMINISTERED No Known [...] Hospitalization History Chest pain, uncontrolled Hyperglycemia--[facility] 12/15/15 Hospitalization History Influenza B Hospitalization History pneumonia Hospitalization History [facility] 07/16/16 Hospitalization History for high sugar 07/12 Hospitalization History ICU-Blood pressure related/elevated blood sugar 2017 Hospitalization History Dehydration, BP low, Labs Low 01/04-01/05/2018
--- OUTSIDE RECORDS SUMMARY | 2018-02-27 17:07 | XMS REPORT ---
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 Essential hypertension I10 ; Acquired hypothyroidism E03.9 ; Chronic pain syndrome G89.4 ; Type 2 diabetes mellitus with foot ulcer E11.621 ; 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 ; Gastroparesis K31.84 ; Nodule of chest wall R22.2 and Anxiety F41.9 [place] [address] [place] [address] [id number]- [phone] Nov, [place] [address] [place] [address] [id number] [place] [address] [phone] [phone] Nov, [facility] [address] [id number] Dec, Dental examination V72.2 [place] [address] [place] [address] [id number] [place] [address] [phone]- 6498 May, [place] [address] [place] [address] [id number] [place] [address] [phone] May, IMMUNIZATIONS No Known Immunizations SOCIAL HISTORY Never Assessed REASON FOR VISIT Prior Authorization Request PLAN OF CARE VITAL SIGNS MEDICATIONS Medication Instructions Dosage Frequency Start Date End Date Duration Status Omeprazole 40 mg Orally Once a day 1 capsule 24h Nov, 30 day(s ) Active RESULTS No Results PROCEDURES No Known [...] vein (port for IV access) Dr. Hernandez [facility] 08-29-2013 Surgical History partial hysterectomy Surgical History EGD Hospitalization History transfusion given after delivery Hospitalization History Chest pain, uncontrolled Hyperglycemia--[facility] 12/15/15 Hospitalization History Influenza B Hospitalization History pneumonia Hospitalization History [facility] 07/16/16 Hospitalization History for high sugar 07/12 Hospitalization History ICU-Blood pressure related/elevated blood sugar 2017 Hospitalization History Dehydration, BP low, Labs Low 01/04-01/05/2018
--- OUTSIDE RECORDS SUMMARY | 2018-02-27 17:08 | XMS REPORT ---
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 [place] [address] [place] [id number] [place] [address] 64779- 3451 Jan, [facility] [address] [place] [id number] [place] [address] 41909- 4163 Jan, Screening breast examination Z12.39 [place] [id number] [place] [address] 93666- 7444 Dec, [place] [id number] [place] [address] 14680- 1653 Dec, [place] [id number] [place] [address] 58065- 5267 Dec, [place] [id number] [place] [address] 61242- 9371 Dec, Congestive heart failure, unspecified congestive heart [...] breast examination Z12.39 and Primary insomnia F51.01 [facility] [address] [place] [id number] [place] [address] 76910- 5211 Dec, [facility] [place] [address] [place] [id number] [place] [address] 53651- 3611 Nov, Congestive heart failure, unspecified congestive heart failure chronicity, unspecified congestive heart failure type I50.9 ; Essential hypertension I10 ; Acquired hypothyroidism E03.9 ; Chronic pain syndrome G89.4 ; Type 2 diabetes mellitus with foot ulcer E11.621 ; 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 ; Gastroparesis K31.84 ; Nodule of chest wall R22.2 and Anxiety F41.9 [facility] [place] [address] [address]- 3026 Nov, [place] [address] [place] [id number] [place] [address] 45995- 5307 Nov, [facility] [address] [id number] Dec, Dental examination V72.2 [place] [id number] [place] [address] 13367- 5719 May, [place] [place] [address] [place] [id number] [place] [address] 39022- 0827 May, IMMUNIZATIONS No Known Immunizations SOCIAL HISTORY [...]
--- OUTSIDE RECORDS SUMMARY | 2018-02-27 17:10 | XMS REPORT ---
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 [id number] [place] [address] 09006- 7141 Dec, [place] [id number] [place] [address] 32882- 8754 Dec, Congestive heart failure, unspecified congestive heart [...] breast examination Z12.39 and Primary insomnia F51.01 [place] [id number] [place] [address] 26313- 8109 Dec, [place] [id number] [place] [address] 81520- 3099 Nov, Congestive heart failure, unspecified congestive heart failure chronicity, unspecified congestive heart failure type I50.9 ; Essential hypertension I10 ; Acquired hypothyroidism E03.9 ; Chronic pain syndrome G89.4 ; Type 2 diabetes mellitus with foot ulcer E11.621 ; 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 ; Gastroparesis K31.84 ; Nodule of chest wall R22.2 and Anxiety F41.9 [place] [address] [address]- 1738 Nov, [place] [id number] [place] [address] 47118- 3077 Nov, [facility] [address] [id number] Dec, Dental examination V72.2 [place] [id number] [place] [address] 89496- 5759 May, [place] [id number] [place] [address] 41445- 4001 May, IMMUNIZATIONS No Known Immunizations SOCIAL HISTORY Never Assessed REASON FOR VISIT traige PLAN OF CARE VITAL SIGNS MEDICATIONS Unknown [...] vein (port for IV access) Dr. Hernandez [facility] 08-29-2013 Surgical History partial hysterectomy [...]
--- OUTSIDE RECORDS SUMMARY | 2018-02-27 17:11 | XMS REPORT ---
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 [facility] [id number] [place] [address] 89255- 5995 Dec, [place] [id number] [place] [address] 60022- 8513 Nov, Congestive heart failure, unspecified congestive heart [...] wall R22.2 and Anxiety F41.9 [facility] [place] [address] [address]- 0146 Nov, [place] [id number] [place] [address] [id number]- 2985 Nov, [facility] [id number] [place] [address] [id number] Dec, Dental examination V72.2 [place] [address] [address]- 2001 May, [place] [id number] [place] [address] [phone]- 8458 May, IMMUNIZATIONS No Known Immunizations SOCIAL HISTORY Never Assessed REASON FOR VISIT new meds PLAN OF CARE VITAL SIGNS MEDICATIONS Medication Instructions Dosage Frequency Start Date End Date Duration Status Escitalopram Oxalate 20 mg Orally Once a day 1 tablet 24h 30 Active Lancets Lancets subcutaneously 4 times a day test blood sugar 4 times per day 6h Dec, Active Levemir Flexpen 100 UNIT/ML Subcutaneous at bedtime 30 units Active Vitamin D (Ergocalciferol) 59579 UNIT Orally once weekly 1 capsule Active HumuLIN R U-500 KwikPen 500 UNIT/ML Subcutaneous 3 times a day 45 units 8h Active Luis Fernando Contour Test - In Vitro 3 times a day as directed 8h Active Tizanidine HCl 4 MG Orally Three times a day 1 tablet as needed 8h 28 Active Topamax 50MG Orally Twice a day 1 tablet 12h Active Midodrine HCl 10 mg Orally Once a day 1 tablet 24h Active Esomeprazole Magnesium 40 mg Orally Once a day on an empty stomach 1 capsule Nov, 30 day(s) Active Alprazolam 0.5 MG Orally 3 times a day 1 tablet 8h 15 Jul, 2017 28 days Active Promethazine HCl 25MG 1 tablet as needed 2 times a day Orally 28 days Active Gabapentin 800 MG Orally 4 times a day 1 tablet 6h 90 days Active Levothyroxine Sodium 75 mcg Orally Once a day 1 tablet 24h Active Chantix Continuing Month Marino 1 MG Orally Twice a day 1 tablet 12h Sep, Jan, 30 day(s) Active Benadryl Allergy 25 MG Orally Once a day at bedtime 2 tablet as needed Active Amitriptyline HCl 25MG Orally Once a day 1 tablet 24h Active Zantac 150 MG Orally twice a day 1 tablet 12h 90 days Active Glucometer 1 glucometer Check sugars 4 times daily 6h Dec, Active Photos to Photos System w/Device as directed Active Nystatin 052238 UNIT/GM Externally Twice a day apply to abdominal fold twice a day 12h Active Test strips test strips subcutaneously 4 times a day as directed 6h Jan Active Metoprolol Succinate ER 25 MG Orally twice a day 1.5 tablet 12h Active Victoza 18 MG/3ML Subcutaneous Once a day 1.2mg 24h Active Oxygen 3L nasal canal Active Furosemide 20MG Orally Once a day 1 tablet 24h Active Insulin Syringe 31G X 5/16 Active Oxycodone-Acetaminophen 5-325 MG Orally 2 times a day 1 tablet as needed 12h Sep, 28 days Active Fluticasone Propionate 50MCG/ACT Nasally Once a day 1 spray in each nostril 24h Active Seroquel XR 50MG Orally Once a day 2 tablets 24h Active RESULTS No Results PROCEDURES No [...] History Chest pain, uncontrolled Hyperglycemia--[facility] 12/15/15 Hospitalization History Influenza B Hospitalization History pneumonia Hospitalization History DKA-[facility] 07/16/16 Hospitalization History for high sugar 07/12 Hospitalization History ICU-Blood pressure related/elevated blood sugar 2017 Hospitalization History Dehydration, BP low, Labs Low 01/04-01/05/2018
--- OUTSIDE RECORDS SUMMARY | 2018-02-27 17:12 | XMS REPORT ---
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 Anxiety F41.9 ; Salivary gland enlargement K11.1 and Primary insomnia F51.01 [place] [id number] [place] [address] 09639- 2195 Jan, [place] [id number] [place] [address] 92345- 7726 Jan, Screening breast examination Z12.39 [place] [id number] [place] [address] 80801- 9802 Dec, [place] [id number] [place] [address] 09019- 4143 Dec, [place] [id number] [place] [address] 41494- 8797 Dec, [place] [id number] [place] [address] 92481- 4878 Dec, Congestive heart failure, unspecified congestive heart [...] breast examination Z12.39 and Primary insomnia F51.01 [place] [id number] [place] [address] 50148- 1154 Dec, [place] [id number] [place] [address] 55262- 4992 Nov, Congestive heart failure, unspecified congestive heart failure chronicity, unspecified congestive heart failure type I50.9 ; Essential hypertension I10 ; Acquired hypothyroidism E03.9 ; Chronic pain syndrome G89.4 ; Type 2 diabetes mellitus with foot ulcer E11.621 ; 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 ; Gastroparesis K31.84 ; Nodule of chest wall R22.2 and Anxiety F41.9 [place] [id number], [place] [address]- 6479 Nov, [place] [id number] [place] [address] 88872- 0878 Nov, [facility] [address] [id number] Dec, Dental examination V72.2 [place] [id number] [place] [address] 25237- 4624 May, [place] [id number] [place] [address] 79905- 6249 May, IMMUNIZATIONS No Known Immunizations SOCIAL HISTORY [...]
--- OUTSIDE RECORDS SUMMARY | 2018-02-27 17:14 | XMS REPORT ---
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 chronicity, unspecified congestive heart failure type I50.9 ; Essential hypertension I10 ; Acquired hypothyroidism E03.9 ; Chronic pain syndrome G89.4 ; Type 2 diabetes mellitus with foot ulcer E11.621 ; 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 ; Gastroparesis K31.84 ; Nodule of chest wall R22.2 and Anxiety F41.9 [place] [address] [place] [address] 76129- 3860 Nov, [place] [id number] [place] [address] 27406- 9480 Nov, [facility] [address] [id number] Dec, Dental examination V72.2 [place] [id number] [place] [address] 53235- 3569 May, [place] [id number] [place] [address] 41776- 5663 May, IMMUNIZATIONS No Known Immunizations SOCIAL HISTORY Never Assessed REASON FOR VISIT FY only PLAN OF CARE VITAL SIGNS MEDICATIONS [...]
[2018-02-27] MEDS ORDERED: ENOXAPARIN 60 MG/0.6 ML (LOVENOX) SYR SC ONE (17:15)
[2018-02-27] MEDS ORDERED: ENOXAPARIN 100 MG/1 ML (LOVENOX) SYR SC ONE (17:15)
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
[2018-02-27] MEDS ORDERED: CATHETER FLUSH 10 ML SYR IV PRN (18:45)
[2018-02-27] MEDS ORDERED: morphine INJ 4 MG/ML 1 ML (VIAL/SYRINGE) IV PRN (18:45)
[2018-02-27 19:40] LABS: BASOPHILS % (AUTO) 1 % (0-10); EOSINOPHILS # (AUTO) 0.2 10^3/uL (0.0-0.3); EOSINOPHILS % (AUTO) 3 % (0-10); HEMATOCRIT 34 % (35-52); LYMPHOCYTES # (AUTO) 2.6 X 10^3 (1.0-4.0); LYMPHOCYTES % (AUTO) 36 % (12-44); MEAN CORPUSCULAR HGB CONC 33 G/DL (32-36); MEAN CORPUSCULAR VOLUME 90 FL (80-99); MEAN PLATELET VOLUME 9.8 FL (7.4-10.4); MONOCYTES # (AUTO) 0.4 X 10^3 (0.0-1.0); MONOCYTES % (AUTO) 6 % (0-12); NEUTROPHILS # (AUTO) 4.1 X 10^3 (1.8-7.8); NEUTROPHILS % (AUTO) 55 % (42-75); PLATELET COUNT 220 10^3/uL (130-400); RED BLOOD COUNT 3.73 10^6/uL (4.35-5.85); RED CELL DISTRIBUTION WIDTH 13.4 % (10.0-14.5); WHITE BLOOD COUNT 7.3 10^3/uL (4.3-11.0)
[2018-02-27 19:43] LABS: MEAN CORPUSCULAR HEMOGLOBIN 29 PG (25-34)
[2018-02-27 20:03] LABS: CALCIUM 8.5 MG/DL (8.5-10.1); CARBON DIOXIDE 23 MMOL/L (21-32); GLUCOSE 230 MG/DL (70-105)
[2018-02-27 20:24] LABS: BUN/CREATININE RATIO 6; CHLORIDE 104 MMOL/L (98-107); POTASSIUM 3.2 MMOL/L (3.6-5.0); SODIUM 138 MMOL/L (135-145)
[2018-02-27] MEDS: GABAPENTIN 400 MG (NEURONTIN) CAP PO SCH (20:31)
[2018-02-27] MEDS: meTOprolol TARTRATE 25 MG (LOPRESSOR) TABLET PO SCH (20:31)
[2018-02-27] MEDS: toPIRamate 25 MG (TOPAMAX) TAB PO SCH (20:31)
[2018-02-27] MEDS: 1/2 NS W/KCL 20 MEQ/L 1,000 ML IV SCH (20:32)
[2018-02-27 20:36] LABS: GFR ESTIMATED > 60
[2018-02-27] MEDS ORDERED: inSUlin DETERMIR 1 UNIT/0.01 ML (LEVEMIR) CHARGE PER UNIT SQ SCH (21:00)
[2018-02-27] MEDS ORDERED: ATORVASTATIN 40 MG (LIPITOR) TABLET PO SCH (21:00)
[2018-02-27] MEDS ORDERED: QUEtiapine 100 MG (SEROquel) TAB IMMEDIATE RELEASE PO SCH (21:00)
[2018-02-27] MEDS ORDERED: AMITRIPTYLINE 25 MG (ELAVIL) TAB PO SCH (21:00)
--- OUTSIDE RECORDS SUMMARY | 2018-02-27 22:00 | XMS REPORT | Clinical Summary ---
Author Author [facility] Organization [facility] Address Unknown Phone Unavailable Care Team Providers Care Fabric Worker Supervisor Name Role Phone Richard Maria DO Unavailable Richard Maria DO PCP Source Comments Some departments are not documenting in the electronic medical record. If you do not see the information that you expected, contact Release of Information in the Health Information Management department at [phone] for further assistance in locating additional records.[facility] Allergies Not on File Current Medications Not [...]
[2018-02-28] VITALS (15 sets, daily range): BP systolic 94–149; BP diastolic 58–77
[2018-02-28] MEDS ORDERED: ENOXAPARIN 300 MG/3 ML (LOVENOX) MULTI-DOSE VIAL SQ SCH (05:30)
[2018-02-28] MEDS: 1/2 NS W/KCL 20 MEQ/L 1,000 ML IV SCH (05:59)
[2018-02-28] MEDS: inSUlin (REGULAR) HUMAN 1 UNIT/0.01 ML (CHARGE PER UNIT) SC SCH ×2 (05:59→14:22)
[2018-02-28] MEDS: inSUlin ASPART (NovoLOG) 1 UNIT/0.01 ML (CHARGE PER UNIT) SC SCH ×2 (06:00→14:09)
[2018-02-28 06:09] LABS: CHOLESTEROL 217 MG/DL (< 200); HDL CHOLESTEROL 22 MG/DL (40-60); TRIGLYCERIDES 638 MG/DL (<150); VLDL CHOLESTEROL 128 MG/DL (5-40)
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
[2018-02-28] MEDS ORDERED: lisINopril 5 MG (PRINIVIL) TABLET PO SCH (09:00)
[2018-02-28] MEDS ORDERED: ASPIRIN E.C. 81 MG (ECOTRIN) TAB PO SCH (09:00)
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
[2018-02-28 09:40] LABS: BASOPHILS % (AUTO) 1 % (0-10); EOSINOPHILS # (AUTO) 0.2 10^3/uL (0.0-0.3); EOSINOPHILS % (AUTO) 3 % (0-10); HEMATOCRIT 32 % (35-52); HEMOGLOBIN 10.5 G/DL (11.5-16.0); LYMPHOCYTES # (AUTO) 2.7 X 10^3 (1.0-4.0); LYMPHOCYTES % (AUTO) 43 % (12-44); MEAN CORPUSCULAR HEMOGLOBIN 30 PG (25-34); MEAN CORPUSCULAR HGB CONC 33 G/DL (32-36); MEAN CORPUSCULAR VOLUME 91 FL (80-99); MEAN PLATELET VOLUME 9.6 FL (7.4-10.4); MONOCYTES # (AUTO) 0.4 X 10^3 (0.0-1.0); MONOCYTES % (AUTO) 7 % (0-12); NEUTROPHILS # (AUTO) 2.9 X 10^3 (1.8-7.8); NEUTROPHILS % (AUTO) 47 % (42-75); PLATELET COUNT 217 10^3/uL (130-400); RED BLOOD COUNT 3.55 10^6/uL (4.35-5.85); RED CELL DISTRIBUTION WIDTH 13.4 % (10.0-14.5); WHITE BLOOD COUNT 6.2 10^3/uL (4.3-11.0)
[2018-02-28] MEDS: toPIRamate 25 MG (TOPAMAX) TAB PO SCH (09:42)
[2018-02-28] MEDS: GABAPENTIN 400 MG (NEURONTIN) CAP PO SCH ×2 (09:42→13:52)
[2018-02-28] MEDS: meTOprolol TARTRATE 25 MG (LOPRESSOR) TABLET PO SCH (09:43)
[2018-02-28 09:58] LABS: BUN/CREATININE RATIO 7; CALCIUM 8.3 MG/DL (8.5-10.1); CARBON DIOXIDE 24 MMOL/L (21-32); CHLORIDE 108 MMOL/L (98-107); CREATININE SERUM 0.71 MG/DL (0.60-1.30); GFR ESTIMATED > 60; GLUCOSE 110 MG/DL (70-105); MAGNESIUM 1.9 MG/DL (1.8-2.4); SODIUM 141 MMOL/L (135-145)
[2018-02-28] MEDS ORDERED: ERGO50006 PO (10:35)
[2018-02-28] MEDS ORDERED: CLOT15CR5 TOP (10:35)
[2018-02-28] MEDS ORDERED: METO50TA15 PO (10:35)
[2018-02-28] MEDS ORDERED: QUET50TA55 PO (10:35)
[2018-02-28] MEDS ORDERED: OLOP5DRO13 OU (10:35)
[2018-02-28] MEDS ORDERED: TIZA4TAB3 PO (10:35)
[2018-02-28] MEDS ORDERED: SENN8.6T81 PO (10:35)
[2018-02-28] MEDS ORDERED: RANI150T11 PO (10:35)
[2018-02-28] MEDS ORDERED: [UNRECOGNIZED DRUG - CODE] PO (10:35)
[2018-02-28] MEDS ORDERED: methylPREDNISolone 125 MG (Solu-MEDROL) VIAL ONE (11:10)
[2018-02-28] MEDS ORDERED: fentaNYL INJECTION 100 MCG/2 ML AMP ONE ×2 (11:10→11:57)
[2018-02-28] MEDS ORDERED: MIDAZOLAM 5 MG/5 ML (VERSED) VIAL ONE (11:10)
[2018-02-28] MEDS ORDERED: HEParin 1000 UNIT/ML (10ML VIAL) FOR BOLUS ONE (11:10)
[2018-02-28] MEDS ORDERED: diphenhydrAMINE 50 MG/ML INJ (BENADRYL) ONE (11:10)
[2018-02-28] MEDS ORDERED: NS IV 1000 ML 1,000 ML ONE (11:11)
[2018-02-28] MEDS ORDERED: NS IV 1000 ML 2,000 ML ONE (11:11)
[2018-02-28] MEDS ORDERED: NS IV 1000 ML 1,000 ML IV SCH ×2 (11:15→12:11)
[2018-02-28] MEDS ORDERED: LIDOCAINE 1% INJ 20 ML 20 ML VIAL ONE (11:15)
--- NOTE | 2018-02-28 11:22 | Cardiac Procedure Note-CS/ASA ---
Pre-Procedure Note Pre-Op Procedure Note H&P Reviewed The H&P was reviewed, patient examined and no changes noted. Date H&P Reviewed: Feb 28, 2018 Time H&P Reviewed: 11:21 Conscious Sedation Pre-Proced Time Reviewed: 11:21 ASA Class: 3 Airway Mallampati Classification: ([place] appropriate class) I. II. III, IV Lungs Heart ASA score ASA 1: a normal healthy patient ASA 2: a patient with a mild systemic disease (mid diabetes, controlled hypertension, obesity x ASA 3: a patient with a severe systemic disease that limits activity (angina , COPD, prior Myocardial infarction) ASA 4: a patient with an incapacitating disease that is a constant threat to life (CHF, renal failure) ASA 5: a moribund patient not expected to survive 24 hrs. (ruptured aneurysm) ASA 6: a declared brain patient whose organs are being harvested. For emergent operations, add the letter E after the classification Grade 3 Sedation Plan: Analgesia, Amnesia, Plan communicated to team members, Discussed options with patient/fam, Discussed risks with patient/fam Note The patient is an appropriate candidate to undergo the planned procedure, sedation, and anesthesia. The patient immediately re-assessed prior to indication. MASHA GONZALEZ MD Feb 28, 2018 11:22
[2018-02-28] MEDS ORDERED: NITRO DRIP 25000 MCG/D5W 0 ML IV ONE (11:46)
--- NOTE | 2018-02-28 12:14 | Discharge Inst-Post CATH ---
Discharge Inst-CATH Post Cardiac Cath D/C Inst Follow Up/Plan Appointment with Dr Sellers's office in 2-4 weeks Appointment with [facility] CATH DISCHARGE INSTRUCTIONS *Hold Metformin for 48 hours post heart cath. ACTIVITY * Go Home directly and rest. * Limit activity of the leg (or wrist if it was used) for 7 days including aerobics, swimming, jogging, bicycling, etc. * Restrict stair-climbing for 7 days if possible, if not, climb up with your non -cath leg, then bring together on the same step. * Avoid lifting, pushing, pulling or excessive movement of the affected extremity for 7 days. * Customary sexual activity may be resumed after 2 days-use caution not to use a position that strains or causes pain to the affected extremity. * No driving for 24 hours. * NO SMOKING. * Avoid straining for bowel movements for 7 days. * Gentle walking on level ground is allowed. * Returning to work will depend on the type of procedure and the results. Your doctor will discuss this with you. CALL YOUR DOCTOR FOR ANY OF THE FOLLOWING: *If bleeding from the puncture site occurs- Apply gentle pressure to site with clean cloth and call your doctor or EMS. * If a knot or lump forms under the skin, increases in size, or causes pain. * If bruising appears to be worsening or moving further down your leg instead of disappearing. * Temperature above 101 F. CARE OF YOUR GROIN INCISION; * Bruising or purple discoloration of the skin near the puncture site is common. * You may shower only, no bathtub bathing for 5 days. Be careful to avoid slipping as your leg may feel stiff. * If a closure device was used on your femoral artery, please see the attached guide regarding care of the device and your leg. * REMOVE the dressing from your groin the next day after your procedure in the shower. CARE OF YOUR WRIST INCISION; * Bruising or purple discoloration of the skin near the puncture site is common. * You may shower. * DO NOT submerge wrist. * Remove dressing in 24 hours. MASHA SELLERS MD Feb 28, 2018 12:14
[2018-02-28] MEDS ORDERED: PATIENT MAY USE OWN MEDS, ALL PO SCH (12:15)
--- NOTE | 2018-02-28 12:21 | Cardiac Cath Report ---
Cardiac Cath Report Physician (s)/Coagulating Operator (s) Physician MASHA GONZALEZ MD Pre-Procedure Diagnosis Pre-Procedure Diagnosis: Chest pain Post-Procedure Note Procedure Start Date: Feb 28, 2018 Name of Procedure: Left heart catheterization Aortic arch angiogram Findings/Procedure Note PROCEDURE NOTE: 47 years old lady with history of xrke-zx-nyizgjer coronary artery disease, multiple risk factors, admitted with acute chest pain and shortness of breath, VQ scan was low probability, was still having active pain. Decided to proceed with a cardiac catheterization due to her multiple risk factors, baseline EKG abnormality. Coronary angiogram showed mild disease. I evaluated aortic arch due to the persistent chest pain and appeared normal. After explaining the procedure to the patient, all pros and cons were explained , all questions were answered. The patient signed the consent and then she was placed on the cardiac catheterization laboratory. Groin was prepped SL fashion local anesthesia was used. Sheath placed in the right femoral artery. Tootie right and left catheter were used to access the coronary system. Pigtail was used to access the left ventricular cavity. Left ventriculogram was not done, pressure was measured Aortic arch angiogram was done At the end of the procedure the sheath was removed. Closure device was used FINDINGS: Hemodynamics LV 98/18, end-diastolic pressure of 22 Aorta 87/64 mean of 74 ANATOMY: Left Main is free of obstructive disease Left Anterior Descending has mild disease nonobstructive disease Left Circumflex has mild disease nonobstructive disease Right Coronory Artery has mild disease nonobstructive disease LV Gram was not done, pressure was measured Aorta evaluation done with aortic arch under Gram which showed normal aortic arch, no dissection or aneurysm, origin of the great neck vessels appeared normal CONCLUSION: 1. Mild coronary artery disease nonobstructive disease 2. Normal left ventricular end-diastolic pressure 3. Normal aortic arch and great neck vessels DISCUSSION AND RECOMMENDATION: Chest pain is unlikely cardiac Anesthesia Type: Conscious Sedation Estimated blood loss (mL): 10 ml Contrast Amount: 35 ml Total Radiation Dose: 335 mGy Post-Procedure Diagnosis Post-operative diagnosis: Chest pain nonspecific etiology Coronary artery disease Hypertension Hyperlipidemia MASHA GONZALEZ MD Feb 28, 2018 12:21
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
[2018-02-28] MEDS ORDERED: KCL 20 MEQ TAB (K-DUR) PO NR (15:00)
[2018-02-28] MEDS ORDERED: ENOXAPARIN 100 MG/1 ML (LOVENOX) SYR SC SCH (17:00)
--- OUTSIDE RECORDS SUMMARY | 2018-03-01 15:46 | XMS REPORT | Clinical Summary ---
Author Author [facility] Organization [facility] Address Unknown Phone Unavailable Care Team Providers [facility] Name Role Phone Richard Maria DO Unavailable Richard Maria DO PCP Source Comments Some departments are not documenting in the electronic medical record. If you do not see the information that you expected, contact Release of Information in the Health Information Management department at [phone] for further assistance in locating additional records.[facility] Allergies Not on File Current Medications [...]
--- OUTSIDE RECORDS SUMMARY | 2018-03-01 15:51 | XMS REPORT ---
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 IMMUNIZATIONS No Known Immunizations SOCIAL HISTORY [...]
--- OUTSIDE RECORDS SUMMARY | 2018-03-01 15:52 | XMS REPORT ---
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 (poly) neuropathy E11.43 ; Anxiety F41.9 ; Primary insomnia F51.01 ; Recurrent major depressive disorder, remission status unspecified F33.9 and Acquired hypothyroidism E03.9 [facility] [address] [place] [id number] [place] [address] 66826- 8651 Feb, [facility] [address] [place] [id number] [place] [address] 04948- 0407 Jan, Type 2 diabetes mellitus with diabetic autonomic (poly) neuropathy E11.43 ; Anxiety F41.9 ; Salivary gland enlargement K11.1 ; Primary insomnia F51.01 and Recurrent major depressive disorder, remission status unspecified F33.9 [place] [address] [place] [id number] [place] [address] 34147- 5752 Jan, [place] [address] [place] [id number] [place] [address] 87625- 4021 Jan, Type 2 diabetes mellitus with diabetic autonomic (poly) neuropathy E11.43 [place] [address] [place] [id number] [place] [address] 00164- 9926 Jan, Type 2 diabetes mellitus with diabetic autonomic (poly) neuropathy E11.43 ; Anxiety F41.9 ; Salivary gland enlargement K11.1 and Primary insomnia F51.01 [place] [address] [place] [id number] [place] [address] 61717- 7938 Jan, [place] [address] [place] [id number] [place] [address] 52588- 8820 Jan, Screening breast examination Z12.39 [place] [address] [place] [id number] [place] [address] 50051- 6049 Dec, [place] [address] [place] [id number] [place] [address] 75427- 4813 Dec, [place] [address] 49260- 2328 Dec, [place] [address] [place] [id number] [place] [address] 73171- 7813 Dec, Congestive heart failure, unspecified congestive heart [...] Z12.39 and Primary insomnia F51.01 [place] [address] [place] [id number] [place] [address] 86217- 0543 Dec, [place] [address] [place] [id number] [place] [address] 08432- 8975 Nov, Congestive heart failure, unspecified congestive heart [...] wall R22.2 and Anxiety F41.9 [place] [address] [place] [id number] [place] [address] 51111- 3396 Nov, [place] [address] [place] [id number] [place] [address] 86583- 1006 Nov, [facility] [address] [place] [id number] [place] [address] [id number] Dec, Dental examination V72.2 [place] [address] [place] [id number] [place] [address] 33241- 2154 May, [place] [address] [place] [id number] [place] [address] 08550- 6974 May, IMMUNIZATIONS No Known Immunizations SOCIAL HISTORY [...]
--- OUTSIDE RECORDS SUMMARY | 2018-03-01 15:53 | XMS REPORT ---
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 [place] [address] [address] [id number] [place] [address] 74313- 1041 Jan, Type 2 diabetes mellitus with diabetic autonomic (poly) neuropathy E11.43 ; Anxiety F41.9 ; Salivary gland enlargement K11.1 and Primary insomnia F51.01 [place] [address] [address] [id number] [place] [address] 35160- 0495 Jan, [place] [address] [place] [id number] [place] [address] 02001- 7537 Jan, Screening breast examination Z12.39 [place] [address] [place] [address] [id number] [place] [address] 92425- 6187 Dec, [place] [address] [place] [address] [id number] [place] [address] 96626- 7372 Dec, [place] [address] [place] [id number] [place] [address] 45087- 2625 Dec, [place] [id number] [place] [address] 84649- 1227 Dec, Congestive heart failure, unspecified congestive heart [...] breast examination Z12.39 and Primary insomnia F51.01 [place] [address] [address] [id number] [place] [address] 01057- 8129 Dec, [place] [address] [place] [id number] [place] [address] 88158- 8754 Nov, Congestive heart failure, unspecified congestive heart [...] wall R22.2 and Anxiety F41.9 [place] [address] [place] [id number] [place] [address] 57343- 7429 Nov, [place] [address] [place] [id number] [place] [address] 39236- 7424 Nov, [facility] [id number] [place] [address] [id number] Dec, Dental examination V72.2 [place] [address] [place] [id number] [place] [address] 06266- 9761 May, [place] [address] [place] [id number] [place] [address] 50034- 5682 May, IMMUNIZATIONS No Known Immunizations SOCIAL HISTORY [...] Influenza B Hospitalization History pneumonia Hospitalization History [facility] 07/16/16 Hospitalization History for high sugar 07/12 Hospitalization History ICU-Blood pressure related/elevated blood sugar 2017 Hospitalization History Dehydration, BP low, Labs Low 01/04-01/05/2018
--- OUTSIDE RECORDS SUMMARY | 2018-03-01 15:54 | XMS REPORT ---
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 [place] [address] [id number] Dec, Dental examination V72.2 [place] [address] 25503- 4702 May, [place] [address] [address] [id number] [place] [address] 88655- 8258 May, IMMUNIZATIONS No Known Immunizations SOCIAL HISTORY Never Assessed REASON FOR VISIT PLAN OF CARE VITAL SIGNS MEDICATIONS Medication Instructions Dosage Frequency Start Date End Date Duration Status Amoxicillin 500 mg Orally every 8 hrs 1 capsule 8h 07 days Active RESULTS No Results PROCEDURES [...]
== END 2018-02-28 17:15 | disposition home or self-care (01) ==
LOC: EDUNIT# 15:03 → ER 15:05 → UNDOADMOB 18:21 → ICU 18:21 → UNDOADMOB 18:30 → CATH 18:30 → ICU 18:30 → CATH 02-28 17:15 → UNDODISOB 02-28 17:15
PROVIDERS: ATTEND Family Medicine
DX: R07.89 Other chest pain (principal); R79.1 Abnormal coagulation profile; E11.65 Type 2 diabetes mellitus with hyperglycemia; I25.10 Atherosclerotic heart disease of native coronary artery without angina pectoris; I10 Essential (primary) hypertension; I27.20 Pulmonary hypertension, unspecified; E78.5 Hyperlipidemia, unspecified; E78.1 Pure hyperglyceridemia; F41.9 Anxiety disorder, unspecified; F60.3 Borderline personality disorder; F32.9 Major depressive disorder, single episode, unspecified; G47.30 Sleep apnea, unspecified; J44.9 Chronic obstructive pulmonary disease, unspecified; F17.210 Nicotine dependence, cigarettes, uncomplicated; E66.01 Morbid (severe) obesity due to excess calories; Z68.41 Body mass index [BMI] 40.0-44.9, adult; Z95.5 Presence of coronary angioplasty implant and graft; Z79.4 Long term (current) use of insulin; Z79.899 Other long term (current) drug therapy
CPT/HCPCS: 36221; 36415; 71045; 78582; 80048; 80053; 80061; 82962; 83690; 83735; 83874; 83880; 84484; 85025; 85379; 85610; 85730; 93005; 93041; 93458; 96372

== ENCOUNTER → 2018-03-14 | Outpatient (CLI) | payer MEDICAID ==
[~2018-03-14] MED LIST changes: +CLOT15CR5 TOP; +ERGO50006 PO; +QUET50TA55 PO; +RANI150T11 PO; +[UNRECOGNIZED DRUG - CODE] PO
--- NOTE | 2018-03-14 17:40 | Diagnostic Imaging Report ---
INDICATION: Fall, pain laterally. FINDINGS: There is plantar calcaneal spurring chronic. The lateral, medial, and posterior malleoli are intact. The plafond and talar dome are intact. No focal soft tissue swelling is apparent. No articular incongruity. No opaque loose body. IMPRESSION: Plantar calcaneal spurring. Mild arthritic change. No acute bony abnormality or fracture demonstrated. Dictated by: Dictated on workstation # [id number]
--- NOTE | 2018-03-14 17:54 | Diagnostic Imaging Report ---
INDICATION: Fall, lateral pain. COMPARISON: Exam compared with study from 03/16/2017. FINDINGS: Subacute fractures of the bases of the first, second, and third metatarsals are noted. Unhealed but some new bone formation and sclerosis suggest they are nonacute. There may be the residua of the previous fractures partially visualized on study of one year ago. There are arthritic changes to the tarsometatarsal joints and pes planus deformity. Plantar calcaneal spurring is noted. Phalanges are intact. The fourth and fifth rays appear intact. IMPRESSION: Unhealed subacute or chronic fractures of first, second, and third metatarsals proximally may reflect unhealed residua of the previously noted fracture pattern discussed one year ago. No findings suggestive of an acute bony injury, malunion, or nonunion are presumed at these injuries which could be further characterized with CT for treatment planning purposes. Dictated by: Dictated on workstation # [id number]
== END ==
LOC: RAD 16:05
PROVIDERS: ATTEND Nurse Practitioner Primary Care
DX: M77.32 Calcaneal spur, left foot (principal); M19.072 Primary osteoarthritis, left ankle and foot; W19.XXXA Unspecified fall, initial encounter
CPT/HCPCS: 73610; 73630

== ENCOUNTER → 2018-03-14 | Outpatient (CLI) | payer MEDICAID ==
[2018-03-14 16:48] LABS: BILIRUBIN,URINE NEGATIVE (NEGATIVE); COLOR,URINE YELLOW; GLUCOSE, URINE (UA) 3+ (NEGATIVE); KETONES,URINE NEGATIVE (NEGATIVE); LEUKOCYTE ESTERASE ,URINE 1+ (NEGATIVE); NITRITE,URINE NEGATIVE (NEGATIVE); PH,URINE 5 (5-9); PROTEIN,URINE 2+ (NEGATIVE); UROBILINOGEN,URINE NORMAL (NORMAL)
[2018-03-14 16:50] LABS: BASOPHILS # (AUTO) 0.1 10^3/uL (0.0-0.1); BASOPHILS % (AUTO) 1 % (0-10); EOSINOPHILS # (AUTO) 0.2 10^3/uL (0.0-0.3); EOSINOPHILS % (AUTO) 2 % (0-10); HEMATOCRIT 38 % (35-52); HEMOGLOBIN 12.5 G/DL (11.5-16.0); LYMPHOCYTES # (AUTO) 4.4 X 10^3 (1.0-4.0); LYMPHOCYTES % (AUTO) 40 % (12-44); MEAN CORPUSCULAR HEMOGLOBIN 29 PG (25-34); MEAN CORPUSCULAR HGB CONC 33 G/DL (32-36); MEAN CORPUSCULAR VOLUME 90 FL (80-99); MEAN PLATELET VOLUME 10.2 FL (7.4-10.4); MONOCYTES # (AUTO) 0.6 X 10^3 (0.0-1.0); MONOCYTES % (AUTO) 6 % (0-12); NEUTROPHILS # (AUTO) 5.6 X 10^3 (1.8-7.8); NEUTROPHILS % (AUTO) 52 % (42-75); PLATELET COUNT 361 10^3/uL (130-400); RED BLOOD COUNT 4.25 10^6/uL (4.35-5.85); RED CELL DISTRIBUTION WIDTH 13.8 % (10.0-14.5); WHITE BLOOD COUNT 10.9 10^3/uL (4.3-11.0)
[2018-03-14 17:00] LABS: BACTERIA,URINE LARGE /HPF; CLARITY,URINE SLIGHTLY CLOUDY; RBC,URINE RARE /HPF; SQUAMOUS EPITHELIAL CELL,UR >50 /HPF
[2018-03-14 17:02] LABS: ALBUMIN 4.1 GM/DL (3.2-4.5); CALCIUM 9.1 MG/DL (8.5-10.1); CREATININE SERUM 1.49 MG/DL (0.60-1.30); PHOSPHORUS 3.6 MG/DL (2.3-4.7)
== END ==
LOC: LAB 16:08
PROVIDERS: ATTEND Internal Medicine Nephrology
DX: N18.2 Chronic kidney disease, stage 2 (mild) (principal)
CPT/HCPCS: 36415; 80069; 81000; 82043; 82306; 82570; 83970; 84156; 85025; 87088

== ENCOUNTER 2018-07-26 05:59 | Day surgery (SDC) | payer MEDICAID ==
[~2018-07-26] VITALS: Ht 157.5 cm; Wt 104.1 kg
[~2018-07-26 05:59] MED LIST changes: +ATOR20TA66 PO; -GABA600T2 PO; +GABA800T10 PO; -GABA800T2 PO; +GBPN600T PO; +LOSA100T57 PO; -LOSA100T8 PO
[2018-07-26 06:15] VITALS: BP 127/83
[2018-07-26] MEDS ORDERED: LACTATED RINGERS 1,000 ML IV PRN (06:44)
[2018-07-26] MEDS ORDERED: ceFAZolin 2 GM IV Premixed 50 ML IV ONE (06:45)
[2018-07-26] MEDS ORDERED: FAMOTIDINE 20MG/2ML IV (PEPCID) ONE (07:01)
[2018-07-26] MEDS ORDERED: PROPOFOL INJECTION 50 ML IV ONE (07:06)
[2018-07-26] MEDS ORDERED: inSUlin ASPART (NovoLOG) 1 UNIT/0.01 ML (CHARGE PER UNIT) ONE (07:09)
[2018-07-26] MEDS ORDERED: MIDAZOLAM 2 MG/2 ML (VERSED) VIAL ONE (07:09)
[2018-07-26] MEDS ORDERED: HEParin (CENTRAL IV FLUSH) 500 UNIT/5 ML SYR ONE (07:10)
[2018-07-26] MEDS ORDERED: BUPIVACAINE 0.5% 30 ML (SENSORCAINE) VIAL ONE (07:10)
[2018-07-26] MEDS ORDERED: fentaNYL INJECTION 100 MCG/2 ML AMP ONE (07:10)
[2018-07-26] MEDS ORDERED: 0.9% SODIUM CHLORIDE PF INJ 20 ML VIAL ONE (07:10)
[2018-07-26] MEDS ORDERED: LIDOCAINE 1% INJ 20 ML 20 ML VIAL ONE (07:14)
[2018-07-26] MEDS ORDERED: inSUlin ASPART (NovoLOG) 1 UNIT/0.01 ML (CHARGE PER UNIT) IV ONE ×2 (07:15→08:15)
[2018-07-26] MEDS ORDERED: FAMOTIDINE 20MG/2ML IV (PEPCID) IV ONE (07:15)
--- NOTE | 2018-07-26 08:02 | Progress Note-Pre Operative ---
Pre-Operative Progress Note H&P Reviewed The H&P was reviewed, patient examined and no changes noted. Date Seen by Provider: Jul 26, 2018 Time Seen by Provider: 08:02 Date H&P Reviewed: Jul 26, 2018 Time H&P Reviewed: 08:02 Pre-Operative Diagnosis: malfunctioning port TAMICA FITCH DO Jul 26, 2018 08:02
[2018-07-26] MEDS ORDERED: KETAMINE HCL 100 MG/ML 5 ML VIAL ONE (08:18)
[2018-07-26] MEDS ORDERED: proPOfol 200 MG/20 ML (DIPRIVAN) VIAL IV ONE (08:42)
--- NOTE | 2018-07-26 09:08 | Anesthesia-General Post-Op ---
MAC Patient Condition Mental Status/LOC: Same as Preop Cardiovascular: Satisfactory Nausea/Vomiting: Absent Respiratory: Satisfactory Pain: Controlled Complications: Absent Post Op Complications Complications None Follow Up Care/Instructions Patient Instructions None needed. Anesthesiology Discharge Order Discharge Order Patient is doing well, no complaints, stable vital signs, no apparent adverse anesthesia problems. No complications reported per nursing. ABIEL LAWS CRNA Jul 26, 2018 09:08
--- NOTE | 2018-07-26 09:13 | Progress Note-Post Operative ---
Post-Operative Progess Note Surgeon (s)/Olericulture Professor (s) Surgeon TAMICA FITCH DO Olericulture Professor: na Pre-Operative Diagnosis malfunctioning port Post-Operative Diagnosis same Procedure & Operative Findings Date of Procedure 07/26/18 Procedure Performed/Findings port removal and right IJ u/s guided port placement Anesthesia Type mac c local Estimated Blood Loss Estimated blood loss (mL): min Specimens/Packing Specimens Removed na TAMICA FITCH DO Jul 26, 2018 09:13
[2018-07-26] MEDS ORDERED: morphine INJ 10 MG/ML 1ML (SYR OR VIAL) IVP ONE (09:15)
--- NOTE | 2018-07-26 09:16 | Discharge Inst-Simple/Standard ---
Discharge Inst-Standard Patient Instructions/Follow Up Plan of Care/Instructions/FU: 2 weeks Indira Ice pack on 15 min off 30 min and repeat for decreasing swelling and discomfort Activity as Tolerated: No Discharge Diet: Regular Diet Other Inst to Patient Follow up Appt: Make appointment for 2 week. Instructions: No lifting greater than 10 pounds. No strenuous activity. May shower in 24 hours, no tub bath or soaking. Use incentive spirometer at home as directed. No Smoking Skin/Wound Care: You have special glue over incisions it will fall off on its own. Symptoms to Report: Appetite Changes, Extremity Discoloration, Numbness/Tingling, Swelling Increased , Bleeding Excessive, Eyesight Changes, Pain Increased, Urine Color Change, Constipation(Persistent), Fever over 101 degree F, Pain/Pressure in chest, Urinating Difficulty, Cough Up/Vomit Blood, Heart Beat Irreg/Pounding, Pain/ Pressure in jaw, Vaginal Bleeding Increase, Cramps in feet or legs, Lightheadedness, Pain/Pressure in shoulder, Diarrhea(Persistent), Memory Changes Suddenly, Questions/Concerns, Weight gain consecutive days, Dizziness/ Fainting, Nausea/Vomiting, Shortness of Breath, Weight gain over 2 pounds If questions or concerns contact your physician Or seek help at emergency department. TAMICA FITCH DO Jul 26, 2018 09:16
[2018-07-26] MEDS: morphine INJ 10 MG/ML 1ML (SYR OR VIAL) ONE ×2 (09:31→11:07)
--- NOTE | 2018-07-26 09:54 | Diagnostic Imaging Report ---
Indication: Port-A-Cath placement Frontal chest obtained at 941 hours a.m. and compared to 02/27/2018. Previous left-sided Port-A-Cath has been removed. There is a new Port-A-Cath in place on the right side, with catheter entering the right internal jugular vein and catheter tip overlying the upper SVC. There is no pneumothorax following device placement. There is no focal infiltrate. The exam is done in expiration. Impression: New Port-A-Cath in place on the right as above. Previous left-sided Port-A-Cath has been removed. There is no pneumothorax or focal infiltrate post port placement. Dictated by: Dictated on workstation # [id number]
[2018-07-26 10:00] VITALS: BP 127/83
[2018-07-26 10:30] VITALS: BP 122/87
[2018-07-26 10:45] VITALS: BP 122/87
--- NOTE | 2018-07-26 10:52 | OPERATIVE REPORT ---
DATE OF SERVICE: 07/26/2018 PREOPERATIVE DIAGNOSIS: Malfunctioning port. POSTOPERATIVE DIAGNOSIS: Malfunctioning port. PROCEDURE: Port removal and right internal jugular port placement, ultrasound-guided. SURGEON: Tamica Jacobson DO ANESTHESIA: MAC with local. ESTIMATED BLOOD LOSS: Minimal. COMPLICATIONS: None. INDICATIONS: The patient is a 47-year-old female with port malfunctioning. She understands risks and benefits of procedures and wished to proceed with procedure. Consent was signed in the chart. DESCRIPTION OF PROCEDURE: The patient was taken to the operating suite. She was prepped and draped in sterile fashion. Surgical pause was performed. Local anesthetic was infiltrated around the left port. A 15 blade scalpel was used to make incision through a previous scar. Cautery was used to dissect down to the port grasped and elevated and removed in its entirety. The subcutaneous tissues were then reapproximated with 3-0 Vicryl. Attention was then placed to the right internal jugular vein. Ultrasound was used to isolate the right internal jugular vein. Local anesthetic was infiltrated around the right neck using a micro access needle, the right internal jugular vein was accessed using ultrasound guidance. Dark nonpulsatile blood was withdrawn. The micro access wire was inserted through the needle and the needle was removed. Fluoroscopy assured proper placement. A #11 blade scalpel was used to make a stab incision at the insertion point. The dilator sheath was then advanced over the wire and the wire was removed. The normal guidewire was inserted through the sheath and the sheath was removed. Wire was then secured. Fluoroscopy assured proper placement. Local anesthetic was used to infiltrate the neck down to the right chest and a pocket in for pocket creation. A 15 blade scalpel was used to make incision in the right chest and cautery was used to dissect down through subcutaneous tissues and a pocket was created on the right chest. At this time, the dilator sheath was then advanced over the guidewire under fluoroscopy. The dilator and wire were removed. The Groshong catheter was inserted through the sheath and the sheath was then removed. The catheter was then tunneled from the right neck insertion point down to the pocket that was created. Using fluoroscopy, the catheter was cut to length and was then secured to the port, which was then placed within the pocket. The port was then accessed, no difficulty accessing and flushing and was flushed with heparinized saline. The subcutaneous tissues were then reapproximated using 3-0 Vicryl. Fluoroscopy assured proper placement. The incisions were then washed and dried and Skin Affix was placed over the incisions. The patient tolerated procedure well without any complications. She was taken to recovery room in stable condition. Chest x-ray pending. Job ID: [id number] DocumentID: [id number] Dictated Date: 07/26/2018 09:19:54 Professional Athlete Date: 07/26/2018 10:52:19 Dictated By: TAMICA JACOBSON DO
--- NOTE | 2018-07-26 21:23 | Diagnostic Imaging Report ---
INDICATION: Port-A-Cath placement. Single fluoroscopy view obtained in surgery demonstrates port over the right chest with catheter entering the right internal jugular vein with tip overlying the mid to upper SVC. The study is otherwise limited. 38 seconds of fluoroscopy time was used in surgery. IMPRESSION: Intraoperative fluoroscopy view demonstrates Port-A-Cath placement as above. Dictated by: Dictated on workstation # [id number]
== END 2018-07-26 10:50 | disposition home or self-care (01) ==
LOC: SDC 05:59
PROVIDERS: ATTEND Surgery
DX: T82.398A Other mechanical complication of other vascular grafts, initial encounter (principal); Z11.2 Encounter for screening for other bacterial diseases; E78.5 Hyperlipidemia, unspecified; E78.1 Pure hyperglyceridemia; I11.0 Hypertensive heart disease with heart failure; I50.9 Heart failure, unspecified; E11.40 Type 2 diabetes mellitus with diabetic neuropathy, unspecified; I25.10 Atherosclerotic heart disease of native coronary artery without angina pectoris; F41.9 Anxiety disorder, unspecified; J44.9 Chronic obstructive pulmonary disease, unspecified; F32.9 Major depressive disorder, single episode, unspecified; Z82.49 Family history of ischemic heart disease and other diseases of the circulatory system; Z87.891 Personal history of nicotine dependence; Z79.4 Long term (current) use of insulin; Z79.899 Other long term (current) drug therapy; Z95.5 Presence of coronary angioplasty implant and graft; G47.33 Obstructive sleep apnea (adult) (pediatric); G40.909 Epilepsy, unspecified, not intractable, without status epilepticus; K21.9 Gastro-esophageal reflux disease without esophagitis; E66.01 Morbid (severe) obesity due to excess calories; Z68.41 Body mass index [BMI] 40.0-44.9, adult
CPT/HCPCS: 71045; 82962; 87081

== ENCOUNTER 2018-08-22 15:03 | Outpatient (CLI) | payer MEDICAID ==
[~2018-08-22] VITALS: Ht 157.5 cm; Wt 104.1 kg
[2018-08-22 15:15] VITALS: BP 126/80
[2018-08-22] MEDS ORDERED: HEParin (CENTRAL IV FLUSH) 500 UNIT/5 ML SYR ONE (15:31)
[2018-08-22] MEDS ORDERED: HEParin (CENTRAL IV FLUSH) 500 UNIT/5 ML SYR IV ONE (15:45)
[2018-08-22 15:58] LABS: ALANINE AMINOTRANSFERASE 19 U/L (0-55); ALKALINE PHOSPHATASE 108 U/L (40-136); BILIRUBIN,TOTAL 0.6 MG/DL (0.1-1.0); BUN/CREATININE RATIO 14; CALCIUM 9.6 MG/DL (8.5-10.1); CARBON DIOXIDE 27 MMOL/L (21-32); CHLORIDE 103 MMOL/L (98-107); CHOLESTEROL 162 MG/DL (< 200); CREATININE SERUM 0.83 MG/DL (0.60-1.30); GFR ESTIMATED > 60; GLUCOSE 154 MG/DL (70-105); HDL CHOLESTEROL 33 MG/DL (40-60); POTASSIUM 3.9 MMOL/L (3.6-5.0); SODIUM 140 MMOL/L (135-145); TOTAL PROTEIN 6.7 GM/DL (6.4-8.2); TRIGLYCERIDES 270 MG/DL (<150); VLDL CHOLESTEROL 54 MG/DL (5-40)
== END 2018-08-22 15:35 | disposition home or self-care (01) ==
LOC: SDC 15:03
PROVIDERS: ATTEND Internal Medicine Cardiovascular Disease
DX: R07.89 Other chest pain (principal); I10 Essential (primary) hypertension; R06.09 Other forms of dyspnea; Q24.9 Congenital malformation of heart, unspecified; E11.9 Type 2 diabetes mellitus without complications; J44.9 Chronic obstructive pulmonary disease, unspecified
CPT/HCPCS: 36415; 36591; 80053; 80061

== ENCOUNTER 2018-12-03 09:00 | Outpatient (CLI) | payer MEDICAID ==
[~2018-12-03] VITALS: Ht 157.5 cm; Wt 97.5 kg
[~2018-12-03 09:00] MED LIST changes: +QUET50TA4 PO; -QUET50TA49 PO
[2018-12-03] MEDS ORDERED: ATEN25TA PO (09:14)
[2018-12-03] MEDS ORDERED: SENN8.6T68 PO (09:14)
== END 2018-12-03 09:36 | disposition home or self-care (01) ==
LOC: PREOP 09:00
PROVIDERS: ATTEND Surgery
DX: Z01.818 Encounter for other preprocedural examination (principal)

== ENCOUNTER 2019-05-28 16:17 | Emergency (ER) | payer OTHER, MEDICAID ==
[~2019-05-28] VITALS: Ht 157.4 cm; Wt 94.8 kg
[~2019-05-28 16:17] MED LIST changes: +ATEN25TA PO; -MORP-33 PO; +MORP-68 PO; +OMEP40CA27 PO; -OMEP40CA36 PO; +RANI-613 PO; -RANI150T46 PO; -SENN-148 PO; +SENN8.6T68 PO; +SNN187T PO; -TIZA2TAB3 PO; +TIZA2TAB4 PO; -TIZA4TAB3 PO; +TIZA4TAB4 PO
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
[2019-05-28] MEDS ORDERED: PROMETHAZINE INJ 25 MG/ML (PHENERGAN) AMP IM ONE (16:30)
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
[2019-05-28 17:30] VITALS: BP 119/88
[2019-07-15] MEDS ORDERED: QUET300T71 PO (11:52)
[2019-07-15] MEDS ORDERED: AMIT75TA2 PO (11:52)
[2019-07-15] MEDS ORDERED: INSU100I23 SQ (14:47)
[2019-07-16] MEDS ORDERED: AMOX-358 PO (11:20)
[2019-07-16] MEDS ORDERED: METR500T PO (11:49)
== END 2019-05-28 17:30 | disposition home or self-care (01) ==
LOC: EDUNIT# 16:17 → ER 16:18
DX: S20.212A Contusion of left front wall of thorax, initial encounter (principal); S80.02XA Contusion of left knee, initial encounter; J44.9 Chronic obstructive pulmonary disease, unspecified; I10 Essential (primary) hypertension; E10.40 Type 1 diabetes mellitus with diabetic neuropathy, unspecified; I25.10 Atherosclerotic heart disease of native coronary artery without angina pectoris; E78.00 Pure hypercholesterolemia, unspecified; G43.909 Migraine, unspecified, not intractable, without status migrainosus; G40.909 Epilepsy, unspecified, not intractable, without status epilepticus; F41.9 Anxiety disorder, unspecified; F32.9 Major depressive disorder, single episode, unspecified; F60.9 Personality disorder, unspecified; E66.01 Morbid (severe) obesity due to excess calories; K21.9 Gastro-esophageal reflux disease without esophagitis; M79.7 Fibromyalgia; E03.9 Hypothyroidism, unspecified; Z88.6 Allergy status to analgesic agent; Z88.5 Allergy status to narcotic agent; Z88.8 Allergy status to other drugs, medicaments and biological substances; Z91.041 Radiographic dye allergy status; Z79.51 Long term (current) use of inhaled steroids; Z79.4 Long term (current) use of insulin; Z87.891 Personal history of nicotine dependence; Z77.22 Contact with and (suspected) exposure to environmental tobacco smoke (acute) (chronic); Z90.49 Acquired absence of other specified parts of digestive tract; Z95.5 Presence of coronary angioplasty implant and graft; Z68.38 Body mass index [BMI] 38.0-38.9, adult; Z90.710 Acquired absence of both cervix and uterus; Z82.49 Family history of ischemic heart disease and other diseases of the circulatory system; V49.50XA Passenger injured in collision with unspecified motor vehicles in traffic accident, initial encounter
CPT/HCPCS: 71046; 73562; 96372

== ENCOUNTER 2019-07-14 15:12 | Emergency (ER) | payer MEDICAID, OTHER ==
[2019-07-14] VITALS (7 sets, daily range): BP systolic 102–137; BP diastolic 57–96
[~2019-07-14] VITALS: Ht 152 cm; Wt 92.4 kg
--- NOTE | 2019-07-14 15:20 | NUR ---
ATTEMPT TO CALL PT BACK ET PT IN BATHROOM.
--- NOTE | 2019-07-14 15:40 | NUR ---
Multiple attempts at pt's R sided port. Port feels very flat. Unable to access. Multiple nurses assessed port. It is believed port may have possibly flipped over.
[2019-07-14] MEDS ORDERED: NS IV 1000 ML 1,000 ML IV SCH (15:45)
[2019-07-14] MEDS ORDERED: fentaNYL INJECTION 100 MCG/2 ML AMP IVP ONE (15:45)
[2019-07-14] MEDS ORDERED: SCOPOLAMINE 1.5 MG (TRANSDERM-SCOP) PATCH TD ONE (15:45)
[2019-07-14 16:22] LABS: BASOPHILS % (AUTO) 0 % (0-10); EOSINOPHILS % (AUTO) 0 % (0-10); HEMATOCRIT 33 % (35-52); LYMPHOCYTES # (AUTO) 1.1 X 10^3 (1.0-4.0); LYMPHOCYTES % (AUTO) 5 % (12-44); MEAN CORPUSCULAR HEMOGLOBIN 28 PG (25-34); MEAN CORPUSCULAR HGB CONC 33 G/DL (32-36); MEAN CORPUSCULAR VOLUME 84 FL (80-99); MEAN PLATELET VOLUME 10.4 FL (7.4-10.4); MONOCYTES % (AUTO) 5 % (0-12); NEUTROPHILS # (AUTO) 19.3 X 10^3 (1.8-7.8); NEUTROPHILS % (AUTO) 90 % (42-75); PLATELET COUNT 327 10^3/uL (130-400); RED CELL DISTRIBUTION WIDTH 12.5 % (10.0-14.5); WHITE BLOOD COUNT 21.5 10^3/uL (4.3-11.0)
[2019-07-14 16:35] LABS: BAND NEUTROPHILS 7 %; BASOPHILS % (MANUAL) 0 %; EOSINOPHILS % (MANUAL) 1 %; LYMPHOCYTES % (MANUAL) 2 %; MONOCYTES % (MANUAL) 1 %; NEUTROPHILS % (MANUAL) 89 %
[2019-07-14 16:36] LABS: RBC MORPH NORMAL
[2019-07-14 16:44] LABS: ALANINE AMINOTRANSFERASE 16 U/L (0-55); ALBUMIN 3.5 GM/DL (3.2-4.5); ALKALINE PHOSPHATASE 173 U/L (40-136); BILIRUBIN,TOTAL 1.1 MG/DL (0.1-1.0); BUN/CREATININE RATIO 8; CALCIUM 8.7 MG/DL (8.5-10.1); CARBON DIOXIDE 18 MMOL/L (21-32); CHLORIDE 94 MMOL/L (98-107); CREATININE SERUM 1.07 MG/DL (0.60-1.30); GFR ESTIMATED 55; LIPASE < 4 U/L (8-78); POTASSIUM 3.3 MMOL/L (3.6-5.0); SODIUM 129 MMOL/L (135-145); TOTAL PROTEIN 7.2 GM/DL (6.4-8.2)
--- NOTE | 2019-07-14 16:45 | NUR ---
Pt reports feeling better after meds.
[2019-07-14 16:50] LABS: GLUCOSE 581 MG/DL (70-105)
[2019-07-14 16:54] LABS: BILIRUBIN,URINE NEGATIVE (NEGATIVE); CLARITY,URINE CLEAR; COLOR,URINE YELLOW; GLUCOSE, URINE (UA) 3+ (NEGATIVE); KETONES,URINE NEGATIVE (NEGATIVE); LEUKOCYTE ESTERASE ,URINE NEGATIVE (NEGATIVE); NITRITE,URINE NEGATIVE (NEGATIVE); PROTEIN,URINE NEGATIVE (NEGATIVE)
[2019-07-14 17:04] LABS: BACTERIA,URINE NEGATIVE /HPF; SQUAMOUS EPITHELIAL CELL,UR 0-2 /HPF
[2019-07-14] MEDS ORDERED: diphenhydrAMINE 50 MG/ML INJ (BENADRYL) IVP ONE (17:15)
[2019-07-14] MEDS ORDERED: inSUlin (REGULAR) HUMAN 1 UNIT/0.01 ML (CHARGE PER UNIT) IV ONE (17:15)
--- NOTE | 2019-07-14 17:52 | Diagnostic Imaging Report ---
PROCEDURE: CT abdomen and pelvis without contrast. TECHNIQUE: Multiple contiguous axial images were obtained through the abdomen and pelvis without the use of intravenous contrast. Auto Exposure Controls were utilized during the CT exam to meet ALARA standards for radiation dose reduction. INDICATION: Lower abdominal pain. COMPARISON: 12/04/2017. FINDINGS: Th lung bases are clear. The liver, pancreas, spleen, adrenals, kidneys, collecting systems, and bladder are negative on this noncontrast exam. Appendectomy. Hysterectomy. Cholecystectomy. Anterior abdominal wall hernia repair. Gas in the soft tissues of the perineum about the rectum with a small amount extending into the pelvis. No fluid collections are included in the [id number]. No lymphadenopathy. No evidence of bowel obstruction or inflammation. No acute osseous findings. IMPRESSION: Gas within the perineal soft tissues about the rectum bilaterally. No fluid collections are seen within the [id number]. The perineum is not entirely included on the exam. Findings can be seen with necrotizing fasciitis. There may be a small amount of gas within the most dependent pelvis as well. Findings discussed with Dr. Esperanza M.D., at 5:43 p.m. on 07/14/2019. Dictated by: Dictated on workstation # [id number]
--- NOTE | 2019-07-14 17:56 | ED Abdominal Pain ---
General Chief Complaint: Abdominal/GI Problems Stated Complaint: VOMITING/FEVER Nursing Triage Note: TO TRIAGE WITH COMPLAINTS OF N/V ABD PAIN SINCE MONDAY. WAS PUT ON A ABX ON MONDAY FOR A INGROWN HAIR. Sepsis Screen: Possible Severe Sepsis Risk Source of Information: Patient Exam Limitations: No Limitations History of Present Illness Date Seen by Provider: Jul 14, 2019 Time Seen by Provider: 15:38 Initial Comments This 48-year-old woman presents to the emergency room with complaints of generalized abdominal pain accompanied by nausea and vomiting since July 09. She was placed on oral antibiotics because of a "ingrown hair" on her thigh. She states that problem has resolved but the nausea and vomiting has worsened. She is a diabetic who uses insulin. She has reduced her insulin dose due to decreased oral intake. She reports continued small bowel movements and denies diarrhea. Allergies and Home Medications Allergies Coded Allergies: acetaminophen (Verified Allergy, Mild, 10/10/16) hydrocodone (Verified Allergy, Mild, 10/10/16) Iodinated Contrast- Oral and IV Dye (Verified Allergy, Unknown, 10/10/16) Sulfa (Sulfonamide Antibiotics) (Verified Allergy, Unknown, 10/10/16) codeine (Verified Allergy, Unknown, 10/10/16) iodine (Verified Allergy, Unknown, 10/10/16) metoclopramide (Verified Allergy, Unknown, 10/10/16) ondansetron (Verified Allergy, Unknown, 10/10/16) prochlorperazine (Verified Allergy, Unknown, 10/10/16) shellfish derived (Unverified Allergy, Unknown, 02/28/18) FROM UNCODED ALLERGIES Uncoded Allergies: IV Dye (Allergy, Mild, 08/17/15) tape (Adverse Reaction, Mild, blister, 08/17/15) Home Medications Acetaminophen 500 Mg Tablet, 1,000 MG PO TID PRN for PAIN-MILD, (Reported) TAKES 2 (500MG) TABLETS Atenolol 25 Mg Tablet, 25 MG PO HS, (Reported) Atorvastatin Calcium 20 Mg Tablet, 20 MG PO HS, (Reported) Diphenhydramine HCl 25 Mg Tablet, 50 MG PO HS PRN for SLEEP, (Reported) TAKE 2 (25MG) TABS Ergocalciferol (Vitamin D2) 50,000 Unit Capsule, 50,000 UNITS PO WEEK, (Reported) Escitalopram Oxalate 20 Mg Tablet, 20 MG PO HS, (Reported) Fluticasone Propionate 16 Gm [place].susp, 2 SPRAYS NS HS PRN for CONGESTION, (Reported) Furosemide 20 Mg Tablet, 20 MG PO DAILY, (Reported) Gabapentin 800 Mg Tablet, 800 MG PO QID, (Reported) Insulin Detemir 100 Unit/1 Ml Insuln.pen, 30 UNIT SQ BID, (Reported) Levothyroxine Sodium 75 Mcg Tablet, 75 MCG PO DAILY, (Reported) Liraglutide 0.6 Mg/0.1 Ml Pen.injctr, 1.8 MG SQ 1800, (Reported) Olopatadine HCl 5 Ml Drops, 1 DROP OU DAILY PRN for IRRITATION, (Reported) Omeprazole 40 Mg Capsule.dr, 40 MG PO DAILY, (Reported) Oxycodone HCl/Acetaminophen 1 Each Tablet, 1 TAB PO BID, (Reported) Promethazine HCl 25 Mg Tablet, 25 MG PO BID PRN for NAUSEA/VOMITING, (Reported) Quetiapine Fumarate 50 Mg Tablet, 50 MG PO BID, (Reported) Quetiapine Fumarate 200 Mg Tab.er.24h, 200 MG PO HS, (Reported) Ranitidine HCl 150 Mg Tablet, 150 MG PO BID, (Reported) Sennosides 8.6 Mg Tablet, 2 TAB PO HS, (Reported) Tizanidine HCl 4 Mg Tablet, 4 MG PO TID PRN for MUSCLE SPASMS, (Reported) Patient Home Medication List Home Medication List Reviewed: Yes Review of Systems Review of Systems Constitutional: no symptoms reported EENTM: No Symptoms Reported Respiratory: No Symptoms Reported Cardiovascular: No Symptoms Reported Gastrointestinal: See HPI Genitourinary: No Symptoms Reported Musculoskeletal: no symptoms reported Skin: see HPI Psychiatric/Neurological: No Symptoms Reported Endocrine: See HPI Hematologic/Lymphatic: No Symptoms Reported Past Poozdfh-Dmkuiy-Orkykd Hx Past Med/Social Hx: Reviewed Nursing Past Med/Soc Hx Patient Social History Alcohol Use: Denies Use Recreational Drug Use: No Drug of Choice: denies use Smoking Status: Never a Smoker Type Used: Cigarettes Former Smoker, Quit: Sep 19, 2016 2nd Hand Smoke Exposure: Yes Recent Foreign Travel: No Contact w/Someone Who Travel: No Recent Infectious Disease Expo: No Recent Hopitalizations: No Immunizations Up To Date Tetanus Booster (TDap): Unknown PED Vaccines UTD: No Seasonal Allergies Seasonal Allergies: No Past Medical History Surgeries: Yes (port) Abdominal, Appendectomy, Bladder Surgery, Cardiac, Coronary Stent, Gallbladder, Hysterectomy, Oophorectomy, Tonsillectomy Respiratory: Yes (O2 AT NIGHT-3L) Sleep Apnea, COPD Currently Using CPAP: No Currently Using BIPAP: No Cardiac: Yes (CAD--STENT X 1; ) Coronary Artery Disease, High Cholesterol, Hypertension, Palpitations Neurological: Yes (NEUROPATHY IN FEET/LOWER LEGS/last seizure 07/09/18) Headaches /Migraines, Neuropathy, Seizure Disorder 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 Sexually Transmitted Disease: No HIV/AIDS: No Genitourinary: Yes (CHRONIC RENAL INSUFFICIENCY) Bladder Infection, Renal Failure Gastrointestinal: Yes Gastroesophageal Reflux, Hemorrhoids, Chronic Diarrhea, Hiatal Hernia, Ulcer Musculoskeletal: Yes Fibromyalgia, Back Injury, Chronic Back Pain Endocrine: Yes (MORBID OBESITY; TYPE 1 DIABETES DX AGE 8) Diabetes, Insulin dep, Hypothyroidsim HEENT: No Loss of Vision: Bilateral Hearing Impairment: Denies Cancer: No Psychosocial: Yes Sleep Difficulties, Anxiety, Personality Disorder, Depression Integumentary: No Blood Disorders: No Adverse Reaction/Blood Tranf: No (HAS HAD BLOOD WITH NO PROBLEMS) Family Medical History Completed stroke 19 MOTHER Diabetes mellitus 19 FATHER 19 MOTHER MATERNAL GRANDMOTHER MATERNAL GRANDFATHER P GRANDFATHER FH: breast cancer 19 MOTHER Kidney disease MATERNAL GRANDFATHER Myocardial infarction 19 FATHER, Onset:58 Cancer, CAD Over 55 Years Old, COPD, CVA, Diabetes, Hypertension, Lung Disease, Psychiatric Problems, Seizures, Stroke Physical Exam Vital Signs Vital Signs - First Documented 07/14/19 15:24 Temp 36.9 Pulse 117 Resp 16 Pulse Ox 99 O2 Delivery Room Air Capillary Refill : Less Than 3 Seconds Height/Weight/BMI Height: 5'2.00" Weight: 215lbs. 0.0oz. 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, no motor/sensory deficits, alert, normal mood/affect, oriented x 3 Skin: other (there is perianal and buttock erythema, induration, and eczematous crepitus) Progress/Results/Core Measures Results/Orders Lab Results Laboratory Tests Test 07/14/19 16:10 07/14/19 16:35 Range/Units White Blood Count 21.5 H 4.3-11.0 10^3/uL Red Blood Count 3.91 L 4.35-5.85 10^6/uL Hemoglobin 11.0 L 11.5-16.0 G/DL Hematocrit 33 L 35-52 % Mean Corpuscular Volume 84 80-99 FL Mean Corpuscular Hemoglobin 28 25-34 PG Mean Corpuscular Hemoglobin Concent 33 32-36 G/DL Red Cell Distribution Width 12.5 10.0-14.5 % Platelet Count 327 130-400 10^3/uL Mean Platelet Volume 10.4 7.4-10.4 FL Neutrophils (%) (Auto) 90 H 42-75 % Lymphocytes (%) (Auto) 5 L 12-44 % Monocytes (%) (Auto) 5 0-12 % Eosinophils (%) (Auto) 0 0-10 % Basophils (%) (Auto) 0 0-10 % Neutrophils # (Auto) 19.3 H 1.8-7.8 X 10^3 Lymphocytes # (Auto) 1.1 1.0-4.0 X 10^3 Monocytes # (Auto) 1.0 0.0-1.0 X 10^3 Eosinophils # (Auto) 0.0 0.0-0.3 10^3/uL Basophils # (Auto) 0.0 0.0-0.1 10^3/uL Neutrophils % (Manual) 89 % Lymphocytes % (Manual) 2 % Monocytes % (Manual) 1 % Eosinophils % (Manual) 1 % Basophils % (Manual) 0 % Band Neutrophils 7 % Blood Morphology Comment NORMAL Sodium Level 129 L 135-145 MMOL/L Potassium Level 3.3 L 3.6-5.0 MMOL/L Chloride Level 94 L 98-107 MMOL/L Carbon Dioxide Level 18 L 21-32 MMOL/L Anion Gap 17 H 5-14 MMOL/L Blood Urea Nitrogen 9 7-18 MG/DL Creatinine 1.07 0.60-1.30 MG/DL Estimat Glomerular Filtration Rate 55 BUN/Creatinine Ratio 8 Glucose Level 581 *H 70-105 MG/DL Calcium Level 8.7 8.5-10.1 MG/DL Corrected Calcium 9.1 8.5-10.1 MG/DL Total Bilirubin 1.1 H 0.1-1.0 MG/DL Aspartate Amino Transf (AST/SGOT) 12 5-34 U/L Alanine Aminotransferase (ALT/SGPT) 16 0-55 U/L Alkaline Phosphatase 173 H 40-136 U/L C-Reactive Protein High Sensitivity 34.53 H 0.00-0.50 MG/DL Total Protein 7.2 6.4-8.2 GM/DL Albumin 3.5 3.2-4.5 GM/DL Lipase < 4 L 8-78 U/L Urine Color YELLOW Urine Clarity CLEAR Urine pH 6.0 5-9 Urine Specific [place] <=1.005 1.016-1.022 Urine Protein NEGATIVE NEGATIVE Urine Glucose (UA) 3+ H NEGATIVE Urine Ketones NEGATIVE NEGATIVE Urine Nitrite NEGATIVE NEGATIVE Urine Bilirubin NEGATIVE NEGATIVE Urine Urobilinogen 0.2 < = 1.0 MG/DL Urine Leukocyte Esterase NEGATIVE NEGATIVE Urine RBC (Auto) NEGATIVE NEGATIVE Urine RBC NONE /HPF Urine WBC NONE /HPF Urine Squamous Epithelial Cells 0-2 /HPF Urine Crystals NONE /LPF Urine Bacteria NEGATIVE /HPF Urine Casts NONE /LPF Urine Mucus NEGATIVE /LPF Urine Culture Indicated NO My Orders Orders - LEELA ZEPEDA MD Cbc With Automated Diff (07/14/19 15:45) Comprehensive Metabolic Panel (07/14/19 15:45) Hs C Reactive Protein (07/14/19 15:45) Lipase (07/14/19 15:45) Ed Iv/Invasive Line Start (07/14/19 15:45) Ns Iv 1000 Ml (Sodium Chloride 0.9%) (07/14/19 15:45) Scopolamine Patch (Transderm-Scop Patch) (07/14/19 15:45) Fentanyl Injection (Sublimaze Injection (07/14/19 15:45) Ua Culture If Indicated (07/14/19 15:47) Manual Differential (07/14/19 16:10) Ct Abdomen/Pelvis Wo (07/14/19 16:51) Diphenhydramine Injection (Benadryl Inje (07/14/19 17:15) Insulin (Regular) Human (Humulin R (Per (07/14/19 17:15) Blood Culture (07/14/19 17:50) Protime With Inr (07/14/19 17:50) Partial Thromboplastin Time (07/14/19 17:50) Chest 1 View, Ap/Pa Only (07/14/19 17:50) Vital Signs Adult Sepsis Patie Q15M (07/14/19 17:50) O2 (07/14/19 17:50) Remove Rings In Anticipation O (07/14/19 17:50) Lactic Acid Analyzer (07/14/19 17:50) Piperacillin Sodium/Tazobactam (Zosyn Vi (07/14/19 18:00) Medications Given in ED Current Medications Medications Dose Ordered Sig/Ramiro Route Start Time Stop Time Status Last Admin Dose Admin Diphenhydramine HCl 25 mg ONCE ONCE IVP 07/14/19 17:15 07/14/19 17:16 DC 07/14/19 17:13 25 MG Fentanyl Citrate 25 mcg ONCE ONCE IVP 07/14/19 15:45 07/14/19 15:48 DC 07/14/19 16:22 25 MCG Insulin Human Regular 5 unit ONCE ONCE IV 07/14/19 17:15 07/14/19 17:16 DC 07/14/19 17:10 5 UNIT Piperacillin Sod/ Tazobactam Sod 4.5 gm/Sodium Chloride 100 ml @ 200 mls/hr ONCE ONCE IV 07/14/19 18:00 07/14/19 18:29 DC 07/14/19 18:35 200 MLS/HR Scopolamine 1.5 mg ONCE ONCE TD 07/14/19 15:45 07/14/19 15:48 DC 07/14/19 16:23 1.5 MG Vital Signs/I&O 07/14/19 15:24 Temp 36.9 Pulse 117 Resp 16 B/P (MAP) Pulse Ox 99 O2 Delivery Room Air Progress Progress Note : Progress Note Basic labs and CT were obtained. CT revealed free air in the perineum. This was concerning for necrotizing fasciitis or other severe infection. Patient was reexamined and found to have induration, erythema, and emphysematous crepitus in the perianal and buttock regions. This prompted an immediate surgical consultation. Dr. Adams reviewed the CT and presented promptly to the ER to personally evaluate the patient. Septic evaluation was also pursued. Unfortunately, patient has such poor vascular access that the complete workup cannot be performed before surgery. The small IV in her thumb failed. Her port had flipped and was not usable. Antibiotics therefore needed to be administered prior to blood cultures being obtained. Dr. Adams will correct the port position in the surgery so that the workup can be completed. Zosyn was ordered for initial antibiotic therapy. Patient received 5 units of insulin for the hyperglycemia. Pain was treated with fentanyl. Nausea and vomiting was treated with scopolamine patch and Benadryl due to allergy profile. Diagnostic Imaging Diagonstic Imaging: CT Plain Films/CT/US/NM/MRI: abdomen, pelvis Comments CT abdomen and pelvis viewed by me and report reviewed. See report below: NAME: KARMEN LEÓN [facility] REC#: [id number] PT STATUS: REG ER : 1970 PHYSICIAN: LEELA ZEPEDA MD ADMIT DATE: 07/14/19/ER Draft Date of Exam:07/14/19 CT ABDOMEN/PELVIS WO PROCEDURE: CT abdomen and pelvis without contrast. TECHNIQUE: Multiple contiguous axial images were obtained through the abdomen and pelvis without the use of intravenous contrast. Auto Exposure Controls were utilized during the CT exam to meet ALARA standards for radiation dose reduction. INDICATION: Lower abdominal pain. COMPARISON: 12/04/2017. FINDINGS: Th lung bases are clear. The liver, pancreas, spleen, adrenals, kidneys, collecting systems, and bladder are negative on this noncontrast exam. Appendectomy. Hysterectomy. Cholecystectomy. Anterior abdominal wall hernia repair. Gas in the soft tissues of the perineum about the rectum with a small amount extending into the pelvis. No fluid collections are included in the [id number]. No lymphadenopathy. No evidence of bowel obstruction or inflammation. No acute osseous findings. IMPRESSION: Gas within the perineal soft tissues about the rectum bilaterally. No fluid collections are seen within the [id number]. The perineum is not entirely included on the exam. Findings can be seen with necrotizing fasciitis. There may be a small amount of gas within the most dependent pelvis as well. Findings discussed with Dr. Esperanza M.D., at 5:43 p.m. on 07/14/2019. Dictated on workstation # [id number] Dict: 07/14/19 1736 Trans: 07/14/19 1751 [id number] Interpreted by: NAN JAIME MD Diagonstic Imaging: Xray Plain Films/CT/US/NM/MRI: chest Comments NAME: KARMEN LEÓN [facility] REC#: [id number] PT STATUS: REG ER : 1970 PHYSICIAN: LEELA ZEPEDA MD ADMIT DATE: 07/14/19/ER Draft Date of Exam:07/14/19 CHEST 1 VIEW, AP/PA ONLY EXAM: CHEST 1 VIEW, AP/PA ONLY INDICATION: Sepsis. COMPARISON: 05/28/2019. FINDINGS: Right IJ CVC tip mid SVC. Normal heart size and pulmonary vascularity. No dense consolidation, pleural effusion or pneumothorax. No acute osseous findings. No significant change. IMPRESSION: No acute cardiopulmonary findings. Dictated on workstation # [id number] Dict: 07/14/19 1833 Trans: 07/14/19 1834 [place] [id number] Interpreted by: NAN JAIME MD Departure Communication (Admissions) Time/Spoke to Admitting Phy: 18:14 Dr. Adams Impression Primary Impression: Severe sepsis Additional Impressions: Necrotizing fasciitis Hyperglycemia Abdominal pain Qualified Codes: R10.84 - Generalized abdominal pain Nausea and vomiting Qualified Codes: R11.2 - Nausea with vomiting, unspecified Disposition: ADMITTED INPATIENT Condition: Stable Admissions Decision to Admit Reason: Admit from ER (General) Decision to Admit/Date: Jul 14, 2019 Time/Decision to Admit Time: 17:45 Departure-Patient Inst. Ref[place]: [facility] [place] Primary Care Physician CHARAN JAQUEZ APRN (Family) Primary Care Physician Copy Copies To 1: THERESE VIERIA JOSHUA T MD Jul 14, 2019 17:56
[2019-07-14] MEDS ORDERED: PIPERACILLIN SODIUM/TAZOBACTAM 4.5 GM in NS (IVPB) 100 ML IV ONE (18:00)
--- NOTE | 2019-07-14 18:20 | NUR ---
Dr. Adams in room with pt.
--- NOTE | 2019-07-14 18:30 | NUR ---
Informed Dr. Adams cultures were unable to be obtained due to pt's poor IV access. Zosyn to be started at this time per Dr. Adams.
--- NOTE | 2019-07-14 18:35 | Diagnostic Imaging Report ---
EXAM: CHEST 1 VIEW, AP/PA ONLY INDICATION: Sepsis. COMPARISON: 05/28/2019. FINDINGS: Right IJ CVC tip mid SVC. Normal heart size and pulmonary vascularity. No dense consolidation, pleural effusion or pneumothorax. No acute osseous findings. No significant change. IMPRESSION: No acute cardiopulmonary findings. Dictated by: Dictated on workstation # [id number]
--- NOTE | 2019-07-14 18:41 | Consultation - Surgery ---
History of Present Illness History of Present Illness Patient Consulted On(alyssa/time) 07/14/19 18:35 Time Seen by Provider: 18:01 History of Present Illness Surgery asked to consult regarding rectal and neri-anal cellulitis. HPI per ED: TO TRIAGE WITH COMPLAINTS OF N/V ABD PAIN SINCE MONDAY. WAS PUT ON A ABX ON MONDAY FOR A INGROWN HAIR. Pt states she has not had any anal or rectal pain, until ER doctor pushed in martínez t area. Her main complaint was of abdominal pain, a CT abd/pelvis was ordered and it showed free air in the rectal/gluteal/enri-anal area (nothing in Abdomen on CT). When pt points to ingrown hair it is on lower leg, nowhere near the problem area. Even now pain is only rated as 2-3 out of 10. Pain does no radiate anywhere. Allergies and Home Medications Allergies Coded Allergies: acetaminophen (Verified Allergy, Mild, 10/10/16) hydrocodone (Verified Allergy, Mild, 10/10/16) Iodinated Contrast- Oral and IV Dye (Verified Allergy, Unknown, 10/10/16) Sulfa (Sulfonamide Antibiotics) (Verified Allergy, Unknown, 10/10/16) codeine (Verified Allergy, Unknown, 10/10/16) iodine (Verified Allergy, Unknown, 10/10/16) metoclopramide (Verified Allergy, Unknown, 10/10/16) ondansetron (Verified Allergy, Unknown, 10/10/16) prochlorperazine (Verified Allergy, Unknown, 10/10/16) shellfish derived (Unverified Allergy, Unknown, 02/28/18) FROM UNCODED ALLERGIES Uncoded Allergies: IV Dye (Allergy, Mild, 08/17/15) tape (Adverse Reaction, Mild, blister, 08/17/15) Home Medications Acetaminophen 500 Mg Tablet, 1,000 MG PO TID PRN for PAIN-MILD, (Reported) TAKES 2 (500MG) TABLETS Atenolol 25 Mg Tablet, 25 MG PO HS, (Reported) Atorvastatin Calcium 20 Mg Tablet, 20 MG PO HS, (Reported) Diphenhydramine HCl 25 Mg Tablet, 50 MG PO HS PRN for SLEEP, (Reported) TAKE 2 (25MG) TABS Ergocalciferol (Vitamin D2) 50,000 Unit Capsule, 50,000 UNITS PO WEEK, (Reported) Escitalopram Oxalate 20 Mg Tablet, 20 MG PO HS, (Reported) Fluticasone Propionate 16 Gm [place].susp, 2 SPRAYS NS HS PRN for CONGESTION, (Reported) Furosemide 20 Mg Tablet, 20 MG PO DAILY, (Reported) Gabapentin 800 Mg Tablet, 800 MG PO QID, (Reported) Insulin Detemir 100 Unit/1 Ml Insuln.pen, 30 UNIT SQ BID, (Reported) Levothyroxine Sodium 75 Mcg Tablet, 75 MCG PO DAILY, (Reported) Liraglutide 0.6 Mg/0.1 Ml Pen.injctr, 1.8 MG SQ 1800, (Reported) Olopatadine HCl 5 Ml Drops, 1 DROP OU DAILY PRN for IRRITATION, (Reported) Omeprazole 40 Mg Capsule.dr, 40 MG PO DAILY, (Reported) Oxycodone HCl/Acetaminophen 1 Each Tablet, 1 TAB PO BID, (Reported) Promethazine HCl 25 Mg Tablet, 25 MG PO BID PRN for NAUSEA/VOMITING, (Reported) Quetiapine Fumarate 50 Mg Tablet, 50 MG PO BID, (Reported) Quetiapine Fumarate 200 Mg Tab.er.24h, 200 MG PO HS, (Reported) Ranitidine HCl 150 Mg Tablet, 150 MG PO BID, (Reported) Sennosides 8.6 Mg Tablet, 2 TAB PO HS, (Reported) Tizanidine HCl 4 Mg Tablet, 4 MG PO TID PRN for MUSCLE SPASMS, (Reported) Patient Home Medication List Home Medication List Reviewed: Yes Past Wyblyxq-Rphzxz-Jlqiam Hx Patient Social History Alcohol Use: Denies Use Recreational Drug Use: No Drug of Choice: denies use Smoking Status: Never a Smoker Former Smoker, Quit: Sep 19, 2016 Type Used: Cigarettes 2nd Hand Smoke Exposure: Yes Recent Foreign Travel: No Contact w/Someone Who Travel: No Recent Infectious Disease Expo: No Recent Hopitalizations: No Immunizations Up To Date Tetanus Booster (TDap): Unknown PED Vaccines UTD: No Seasonal Allergies Seasonal Allergies: No Surgeries History of Surgeries: Yes (port) Surgeries: Abdominal, Appendectomy, Bladder Surgery, Cardiac, Coronary Stent, Gallbladder, Hysterectomy, Oophorectomy, Tonsillectomy Respiratory History of Respiratory Disorde: Yes (O2 AT NIGHT-3L) Respiratory Disorders: Sleep Apnea, COPD Cardiovascular History of Cardiac Disorders: Yes (CAD--STENT X 1; ) Cardiac Disorders: Coronary Artery Disease, High Cholesterol, Hypertension, Palpitations Neurological History of Neurological Disord: Yes (NEUROPATHY IN FEET/LOWER LEGS/last seizure 07/09/18) Neurological Disorders: Headaches /Migraines, Neuropathy, Seizure Disorder 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 System Hx 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 Disorders: No Sexually Transmitted Disease: No HIV/AIDS: 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 Genitourinary History of Genitourinary Disor: Yes (CHRONIC RENAL INSUFFICIENCY) Genitourinary Disorders: Bladder Infection, Renal Failure Gastrointestinal History of Gastrointestinal Di: Yes Gastrointestinal Disorders: Gastroesophageal Reflux, Hemorrhoids, Chronic Diarrhea, Hiatal Hernia, Ulcer Musculoskeletal History of Musculoskeletal Dis: Yes Musculoskeletal Disorders: Fibromyalgia, Back Injury, Chronic Back Pain Endocrine History of Endocrine Disorders: Yes (MORBID OBESITY; TYPE 1 DIABETES DX AGE 8) Endocrine Disorders: Diabetes, Insulin dep, Hypothyroidsim HEENT History of HEENT Disorders: No Loss of Vision: Bilateral Hearing Impairment: Denies Cancer History of Cancer: No Psychosocial History of Psychiatric Problem: Yes Behavioral Health Disorders: Sleep Difficulties, Anxiety, Personality Disorder, Depression Integumentary History of Skin or Integumenta: No Blood Transfusions History of Blood Disorders: No Adverse Reaction to a Blood Tr: No (HAS HAD BLOOD WITH NO PROBLEMS) Family Medical History Significant Family History: Cancer, CAD Over 55 Years Old, COPD, CVA, Diabetes, Hypertension, Lung Disease, Psychiatric Problems, Seizures, Stroke Family Medial History: Completed stroke 19 MOTHER Diabetes mellitus 19 FATHER 19 MOTHER MATERNAL GRANDMOTHER MATERNAL GRANDFATHER P GRANDFATHER FH: breast cancer 19 MOTHER Kidney disease MATERNAL GRANDFATHER Myocardial infarction 19 FATHER, Onset:59 Review of Systems-General Constitutional: chills, malaise, weakness EENTM: No blurred vision, No double vision, No mouth swelling, No epistaxis Respiratory: No dyspnea on exertion, No short of breath Cardiovascular: No chest pain, No palpitations Gastrointestinal: abdominal pain; No jaundice, No melena, No nausea, No vom iting Genitourinary: No dysuria, No frequency, No hematuria Musculoskeletal: back pain, joint pain, joint swelling, muscle stiffness Skin: change in color; No change in hair/nails; rash Psychiatric/Neurological: Anxiety, Depressed Other pt denies any hx of abnormal bleeding or bruising Physical Exam-General Problems Physical Exam Vital Signs Vital Signs - First Documented 07/14/19 15:24 Temp 36.9 Pulse 117 Resp 16 Pulse Ox 99 O2 Delivery Room Air Capillary Refill : Less Than 3 Seconds General Appearance: WD/WN, no apparent distress, obese Eyes: Bilateral Eye PERRL, Bilateral Eye EOMI HEENT: pharynx normal; No scleral icterus (R), No scleral icterus (L) Neck: non-tender, supple Respiratory: chest non-tender, lungs clear, normal breath sounds, no respiratory distress, no accessory muscle use Cardiovascular: no murmur, tachycardia Gastrointestinal: non tender, soft, no organomegaly; No hernia Rectal: other (rectal exam with nurse in the room, pt has erythema surrounding anus, tender to touch, warm and can feel crepitance) Back: no CVA tenderness, no vertebral tenderness Extremities: no pedal edema, no calf tenderness, normal capillary refill Neurologic/Psychiatric: 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 II-XII nml as tested, no motor/sensory deficits, alert, normal mood/affect, oriented x 3 Skin: normal color, warm/dry, other (catarino-cath in right chest wall has flipped over) Lymphatic: no adenopathy (neck, axilla or groin) Data Review Labs Laboratory Tests 07/14/19 16:10: White Blood Count 21.5H, Red Blood Count 3.91L, Hemoglobin 11.0L, Hematocrit 33L , Mean Corpuscular Volume 84, Mean Corpuscular Hemoglobin 28, Mean Corpuscular Hemoglobin Concent 33, Red Cell Distribution Width 12.5, Platelet Count 327, Mean Platelet Volume 10.4, Neutrophils (%) (Auto) 90H, Lymphocytes (%) (Auto) 5L , Monocytes (%) (Auto) 5, Eosinophils (%) (Auto) 0, Basophils (%) (Auto) 0, Neutrophils # (Auto) 19.3H, Lymphocytes # (Auto) 1.1, Monocytes # (Auto) 1.0, Eosinophils # (Auto) 0.0, Basophils # (Auto) 0.0, Neutrophils % (Manual) 89, Lymphocytes % (Manual) 2, Monocytes % (Manual) 1, Eosinophils % (Manual) 1, Basophils % (Manual) 0, Band Neutrophils 7, Blood Morphology Comment NORMAL, Sodium Level 129L, Potassium Level 3.3L, Chloride Level 94L, Carbon Dioxide Level 18L, Anion Gap 17H, Blood Urea Nitrogen 9, Creatinine 1.07, Estimat Glomerular Filtration Rate 55, BUN/Creatinine Ratio 8, Glucose Level 581*H, Calcium Level 8.7, Corrected Calcium 9.1, Total Bilirubin 1.1H, Aspartate Amino Transf (AST/SGOT) 12, Alanine Aminotransferase (ALT/SGPT) 16, Alkaline Phosphatase 173H, C-Reactive Protein High Sensitivity 34.53H, Total Protein 7.2, Albumin 3.5, Lipase < 4L 07/14/19 16:35: Urine Color YELLOW, Urine Clarity CLEAR, Urine pH 6.0, Urine Specific [place] <=1.005, Urine Protein NEGATIVE, Urine Glucose (UA) 3+H, Urine Ketones NEGATIVE, Urine Nitrite NEGATIVE, Urine Bilirubin NEGATIVE, Urine Urobilinogen 0.2, Urine Leukocyte Esterase NEGATIVE, Urine RBC (Auto) NEGATIVE, Urine RBC NONE, Urine WBC NONE, Urine Squamous Epithelial Cells 0-2, Urine Crystals NONE, Urine Bacteria NEGATIVE, Urine Casts NONE, Urine Mucus NEGATIVE, Urine Culture Indicated NO Radiology CT ABDOMEN/PELVIS WO PROCEDURE: CT abdomen and pelvis without contrast. TECHNIQUE: Multiple contiguous axial images were obtained through the abdomen and pelvis without the use of intravenous contrast. Auto Exposure Controls were utilized during the CT exam to meet ALARA standards for radiation dose reduction. INDICATION: Lower abdominal pain. COMPARISON: 12/04/2017. FINDINGS: Th lung bases are clear. The liver, pancreas, spleen, adrenals, kidneys, collecting systems, and bladder are negative on this noncontrast exam. Appendectomy. Hysterectomy. Cholecystectomy. Anterior abdominal wall hernia repair. Gas in the soft tissues of the perineum about the rectum with a small amount extending into the pelvis. No fluid collections are included in the [id number]. No lymphadenopathy. No evidence of bowel obstruction or inflammation. No acute osseous findings. IMPRESSION: Gas within the perineal soft tissues about the rectum bilaterally. No fluid collections are seen within the [id number]. The perineum is not entirely included on the exam. Findings can be seen with necrotizing fasciitis. There may be a small amount of gas within the most dependent pelvis as well. Findings discussed with Dr. Esperanza M.D., at 5:43 p.m. on 07/14/2019. Dictated on workstation # [id number] Dict: 07/14/19 1736 Trans: 07/14/19 1751 [id number] [id number] Interpreted by: NAN JAIME MD Assessment/Plan Assessment/Plan Assessment/Plan Necrotizing Fasciitis Malfunctioning portacath DM - uncontrolled Pt needs emergent surgery; I&D of rectal and neri-anal area with debridement of necrotic tissue and possible packing. Discussed risks and complications with pt; not limited to pain, bleeding, infection, scar and damage to nerves or bowel. Pt may need immediate relook and surgery tomorrow. Will get cultures to make sure she is on correct ABX. Pain control and IV fluid. Will also revise her port; flip it and suture it in place. All questions answered to her satisfaction. ROYCE JOHNSON DO Jul 14, 2019 18:40
[2019-07-14] MEDS ORDERED: BUP/EPI 0.5% 1:200,000 (SENSORCAINE) 30 ML VIAL ONE (18:56)
--- NOTE | 2019-07-14 18:56 | NUR ---
anesthesia in room with pt at this
[2019-07-14] MEDS ORDERED: LACTATED RINGERS 1,000 ML IV PRN (19:04)
[2019-07-14] MEDS ORDERED: MIDAZOLAM 2 MG/2 ML (VERSED) VIAL ONE ×2 (19:15→21:01)
[2019-07-14] MEDS ORDERED: fentaNYL INJECTION 100 MCG/2 ML AMP ONE ×2 (19:16→20:01)
[2019-07-14 19:18] LABS: INR 1.2 (0.8-1.4); PROTHROMBIN TIME PATIENT 15.9 SEC (12.2-14.7)
[2019-07-14] MEDS ORDERED: 0.9% SODIUM CHLORIDE PF INJ 20 ML VIAL ONE (19:40)
[2019-07-14] MEDS ORDERED: HEParin (CENTRAL IV FLUSH) 500 UNIT/5 ML SYR ONE (19:42)
[2019-07-14] MEDS ORDERED: PROMETHAZINE INJ 25 MG/ML (PHENERGAN) AMP ONE (19:47)
[2019-07-14] MEDS ORDERED: morphine INJ 10 MG/ML 1ML (SYR OR VIAL) ONE (19:47)
[2019-07-14] MEDS ORDERED: LIDOCAINE PF 2% 5 ML (XYLOCAINE) VIAL ONE (20:01)
[2019-07-14] MEDS ORDERED: proPOfol 200 MG/20 ML (DIPRIVAN) VIAL IV ONE ×2 (20:01)
[2019-07-14] MEDS ORDERED: SEVOFLURANE (ULTANE) 15 ML INHAL SOLN ONE ×2 (20:01→20:28)
[2019-07-14] MEDS ORDERED: morphine INJ 10 MG/ML 1ML (SYR OR VIAL) IVP ONE (21:00)
[2019-07-14] MEDS ORDERED: PROMETHAZINE INJ 25 MG/ML (PHENERGAN) AMP IVP ONE (21:00)
[2019-07-14] MEDS ORDERED: MIDAZOLAM 2 MG/2 ML (VERSED) VIAL IM ONE (21:00)
[2019-07-15] MEDS ORDERED: AMIT75TA2 PO (11:52)
[2019-07-15] MEDS ORDERED: QUET300T71 PO (11:52)
[2019-07-15] MEDS ORDERED: INSU100I23 SQ (14:47)
[2019-07-15] MEDS ORDERED: morphine INJ 10 MG/ML 1ML (SYR OR VIAL) ONE (16:05)
[2019-07-16] MEDS ORDERED: AMOX-358 PO (11:20)
[2019-07-16] MEDS ORDERED: METR500T PO (11:49)
== END 2019-07-14 19:21 | disposition other institution (70) ==
LOC: EDUNIT# 15:12 → ER 15:13
DX: A41.9 Sepsis, unspecified organism (principal); R65.20 Severe sepsis without septic shock; M72.6 Necrotizing fasciitis; E10.65 Type 1 diabetes mellitus with hyperglycemia; R10.84 Generalized abdominal pain; E10.22 Type 1 diabetes mellitus with diabetic chronic kidney disease; I12.9 Hypertensive chronic kidney disease with stage 1 through stage 4 chronic kidney disease, or unspecified chronic kidney disease; N18.9 Chronic kidney disease, unspecified; I25.10 Atherosclerotic heart disease of native coronary artery without angina pectoris; E78.00 Pure hypercholesterolemia, unspecified; G43.909 Migraine, unspecified, not intractable, without status migrainosus; J44.9 Chronic obstructive pulmonary disease, unspecified; G40.909 Epilepsy, unspecified, not intractable, without status epilepticus; E11.40 Type 2 diabetes mellitus with diabetic neuropathy, unspecified; F41.9 Anxiety disorder, unspecified; F60.9 Personality disorder, unspecified; F32.9 Major depressive disorder, single episode, unspecified; K21.9 Gastro-esophageal reflux disease without esophagitis; M79.7 Fibromyalgia; E03.9 Hypothyroidism, unspecified; Z88.6 Allergy status to analgesic agent; Z88.5 Allergy status to narcotic agent; Z91.041 Radiographic dye allergy status; Z88.2 Allergy status to sulfonamides; Z79.4 Long term (current) use of insulin; Z87.891 Personal history of nicotine dependence; Z77.22 Contact with and (suspected) exposure to environmental tobacco smoke (acute) (chronic); Z90.49 Acquired absence of other specified parts of digestive tract; Z95.5 Presence of coronary angioplasty implant and graft; Z90.710 Acquired absence of both cervix and uterus
CPT/HCPCS: 36415; 71045; 74176; 80053; 81000; 82962; 83605; 83690; 85007; 85027; 85610; 85730; 86141; 87040; 87070; 87075; 87205; 96361; 96365; 96375

== ENCOUNTER 2019-08-11 23:35 | Emergency (ER) | payer MEDICAID ==
[~2019-08-11] VITALS: Ht 157 cm; Wt 93.8 kg
[~2019-08-11 23:35] MED LIST changes: +AMIT75TA2 PO; +INSU100I23 SQ; +METR500T PO; +QUET300T71 PO
[2019-08-12] MEDS ORDERED: NS IV 1000 ML 1,000 ML IV SCH ×2 (00:11→04:26)
[2019-08-12] MEDS ORDERED: VANCOMYCIN INJECTION 1,000 MG in NS (IVPB) 250 ML IV ONE (00:15)
[2019-08-12] MEDS ORDERED: PIPERACILLIN SODIUM/TAZOBACTAM 4.5 GM in NS (IVPB) 100 ML IV ONE ×2 (00:15→07:45)
[2019-08-12 00:30] LABS: BASOPHILS # (AUTO) 0.1 10^3/uL (0.0-0.1); BASOPHILS % (AUTO) 1 % (0-10); EOSINOPHILS # (AUTO) 0.3 10^3/uL (0.0-0.3); EOSINOPHILS % (AUTO) 3 % (0-10); HEMATOCRIT 29 % (35-52); HEMOGLOBIN 9.6 G/DL (11.5-16.0); LYMPHOCYTES # (AUTO) 3.3 X 10^3 (1.0-4.0); LYMPHOCYTES % (AUTO) 40 % (12-44); MEAN CORPUSCULAR HEMOGLOBIN 28 PG (25-34); MEAN CORPUSCULAR HGB CONC 33 G/DL (32-36); MEAN CORPUSCULAR VOLUME 85 FL (80-99); MEAN PLATELET VOLUME 9.6 FL (7.4-10.4); MONOCYTES # (AUTO) 0.6 X 10^3 (0.0-1.0); MONOCYTES % (AUTO) 8 % (0-12); NEUTROPHILS % (AUTO) 48 % (42-75); PLATELET COUNT 279 10^3/uL (130-400); RED CELL DISTRIBUTION WIDTH 13.4 % (10.0-14.5); WHITE BLOOD COUNT 8.2 10^3/uL (4.3-11.0)
[2019-08-12 00:33] LABS: BILIRUBIN,URINE NEGATIVE (NEGATIVE); CLARITY,URINE CLEAR; COLOR,URINE YELLOW; GLUCOSE, URINE (UA) 3+ (NEGATIVE); KETONES,URINE NEGATIVE (NEGATIVE); LEUKOCYTE ESTERASE ,URINE NEGATIVE (NEGATIVE); NITRITE,URINE NEGATIVE (NEGATIVE); PH,URINE 5.5 (5-9); PROTEIN,URINE NEGATIVE (NEGATIVE)
[2019-08-12 00:42] LABS: BACTERIA,URINE FEW /HPF; SQUAMOUS EPITHELIAL CELL,UR 0-2 /HPF
[2019-08-12 00:46] LABS: ALANINE AMINOTRANSFERASE 18 U/L (0-55); ALBUMIN 3.4 GM/DL (3.2-4.5); ALKALINE PHOSPHATASE 108 U/L (40-136); BILIRUBIN,TOTAL 0.3 MG/DL (0.1-1.0); BUN/CREATININE RATIO 8; CALCIUM 8.7 MG/DL (8.5-10.1); CARBON DIOXIDE 25 MMOL/L (21-32); CHLORIDE 96 MMOL/L (98-107); CREATININE SERUM 0.92 MG/DL (0.60-1.30); GFR ESTIMATED > 60; POTASSIUM 3.4 MMOL/L (3.6-5.0); SODIUM 133 MMOL/L (135-145); TOTAL PROTEIN 6.4 GM/DL (6.4-8.2)
[2019-08-12 00:56] LABS: GLUCOSE 486 MG/DL (70-105)
[2019-08-12 00:56] LABS: INR 0.9 (0.8-1.4)
[2019-08-12] MEDS ORDERED: inSUlin (REGULAR) HUMAN 1 UNIT/0.01 ML (CHARGE PER UNIT) IV ONE (01:00)
[2019-08-12] MEDS: NS IV 1000 ML 1,000 ML IV SCH ×2 (01:30→02:42)
[2019-08-12] MEDS ORDERED: D5 1/2 NS W/KCL 20 MEQ/L 1,000 ML IV SCH (03:15)
[2019-08-12] MEDS ORDERED: DEXTROSE 50% 50 ML (IMS) SYR IV ONE (03:30)
--- NOTE | 2019-08-12 04:28 | ED General ---
General Chief Complaint: Skin/Wound Problems Stated Complaint: INFECTION POST OP X3 WKS Nursing Triage Note: PT PRESENTS TO THE ED C/O SUSPECTED INFECTION TO BILATERAL BUTTOCKS W/ DRAINAGE AND FEVER. PT STATES SHE HAD SURG. THREE WEEKS AGO TO REMOVE NECROTIC/ INFECTED TISSUE IN THE AREA, STATES SHE FELT A LARGE LUMP IN HER POSTERIOR BEGIN TO FORM MONDAY WITH PAIN TO THE AREA WELL. Nursing Sepsis Screen: Possible Severe Sepsis Risk Source of Information: Patient History of Present Illness Date Seen by Provider: Aug 12, 2019 Time Seen by Provider: 00:01 Initial Comments PT ARRIVES VIA POV FROM HOME PT WAS ADMITTED AND HAD SURGERY WITH I&D AND DEBRIDEMENTS OF PERIRECTAL ABSCESSES AND NECROTIZING FASCITIS, LEFT WITH OPEN WOUNDS TO BILATERAL BUTTOCKS ON 07/14/19 PT HAS BEEN HAVING WOUND CARE BY HOME HEALTH SINCE THEN STATES SINCE MONDAY, SHE HAS HAD INCREASED PAIN, INCREASED DRAINAGE, AND SUBJECTIVE FEVER AND CHILLS--HAS NOT TAKEN HER TEMPERATURE AT ANY TIME. ALSO STATES SHE HAS NOTICED A "LUMP" ON THE LEFT BUTTOCK AREA ON MONDAY WELL. C/O NAUSEA, NO VOMITING HAS HAD DIARRHEA SINCE MONDAY --3-4 EPISODES NO ABDOMINAL PAIN PT IS TYPE 1 DIABETIC SINCE THE AGE OF 8--HGB A1C DONE IN JUNE WAS 11.6 LONG STANDING HISTORY OF NON-COMPLIANCE/POOR CONTROL PT STATES SHE HAS NOT CHECKED HER BLOOD SUGAR TODAY, AND HAS NOT TAKEN HER INSULIN TODAY PCP: [facility] WORK DIRECTOR: DR. GONZALEZ Allergies and Home Medications Allergies Coded Allergies: acetaminophen (Verified Allergy, Mild, 10/10/16) hydrocodone (Verified Allergy, Mild, 10/10/16) Iodinated Contrast Media (Verified Allergy, Unknown, 10/10/16) Sulfa (Sulfonamide Antibiotics) (Verified Allergy, Unknown, 10/10/16) codeine (Verified Allergy, Unknown, 10/10/16) iodine (Verified Allergy, Unknown, 10/10/16) metoclopramide (Verified Allergy, Unknown, 10/10/16) ondansetron (Verified Allergy, Unknown, 10/10/16) prochlorperazine (Verified Allergy, Unknown, 10/10/16) shellfish derived (Unverified Allergy, Unknown, 02/28/18) FROM UNCODED ALLERGIES Uncoded Allergies: IV Dye (Allergy, Mild, 08/17/15) tape (Adverse Reaction, Mild, blister, 08/17/15) Home Medications Amitriptyline HCl 75 Mg Tablet, 75 MG PO HS PRN for SLEEP, (Reported) Amoxicillin/Potassium Clav 1 Each Tablet, 1 EACH PO BID Prescribed by: NELLY MILLS on 07/16/19 1120 Diphenhydramine HCl 25 Mg Tablet, 50 MG PO HS PRN for SLEEP, (Reported) TAKE 2 (25MG) TABS Escitalopram Oxalate 20 Mg Tablet, 20 MG PO 1200, (Reported) Fluticasone Propionate 16 Gm [place].susp, 2 SPRAYS NS HS PRN for CONGESTION, (Reported) Gabapentin 800 Mg Tablet, 800 MG PO QID PRN for NERVE PAIN, (Reported) Insulin Detemir 100 Unit/1 Ml Insuln.pen, 45 UNIT SQ BID, (Reported) Insulin Lispro 100 Unit/1 Ml Insuln.pen, 45 UNIT SQ TIDWM PRN for HYPERGLYCEMIA, (Reported) Metronidazole 500 Mg Tablet, 500 MG PO TID Prescribed by: RENARD GRANDE on 07/16/19 1149 Oxycodone HCl/Acetaminophen 1 Each Tablet, 1 TAB PO BID PRN for PAIN-MODERATE (5-7), (Reported) Promethazine HCl 25 Mg Tablet, 25 MG PO BID PRN for NAUSEA/VOMITING, (Reported) Quetiapine Fumarate 300 Mg Tab.er.24h, 300 MG PO HS, (Reported) Tizanidine HCl 4 Mg Tablet, 4 MG PO TID PRN for MUSCLE SPASMS, (Reported) Patient Home Medication List Home Medication List Reviewed: Yes Review of Systems Review of Systems Constitutional: see HPI, chills, fever EENTM: no symptoms reported; No nose congestion, No throat pain Respiratory: no symptoms reported; No cough, No short of breath Cardiovascular: no symptoms reported; No chest pain, No palpitations Gastrointestinal: see HPI; No abdominal pain; diarrhea, nausea; No vomiting Genitourinary: no symptoms reported; No dysuria Musculoskeletal: no symptoms reported Skin: see HPI Psychiatric/Neurological: Pre-Existing Deficit (PERIPHERAL NEUROPATHY) Hematologic/Lymphatic: No Symptoms Reported Immunological/Allergic: no symptoms reported Past Tualtiv-Ooxysw-Znjafs Hx Past Med/Social Hx: Reviewed and Corrections made Patient Social History Alcohol Use: Denies Use Recreational Drug Use: No Drug of Choice: denies use Smoking Status: Current Everyday Smoker (1 PPD) Type Used: Cigarettes (1 PPD) 2nd Hand Smoke Exposure: Yes Recent Foreign Travel: No Contact w/Someone Who Travel: No Recent Infectious Disease Expo: No Recent Hopitalizations: Yes Physical Abuse: No Sexual Abuse: No Mistreated: No Fear: No Immunizations Up To Date Tetanus Booster (TDap): Unknown PED Vaccines UTD: No Seasonal Allergies Seasonal Allergies: Yes Past Medical History Surgeries: Yes (SEE BELOW) Abdominal, Appendectomy, Bladder Surgery, Cardiac, Gallbladder, Hysterectomy, Oophorectomy, Tonsillectomy Respiratory: Yes (O2 AT HX AT 3L/NC) Sleep Apnea, COPD Currently Using CPAP: No Currently Using BIPAP: No Cardiac: Yes (RBBB;CARDIAC CATHS-MILD TO MODERATE CAD-NO INTERVENTION;SEVERE HIGH TRIGLY ) Coronary Artery Disease, High Cholesterol, Hypertension, Palpitations Neurological: Yes (PERIPHERAL NEUROPATHY BILATERAL FEET/LOWER LEGS;QUESTIONABLE SEIZURE) Headaches /Migraines, Neuropathy, Seizure Disorder : No 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 Disorders: Yes Female 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: Hysterectomy, Menopausal Sexually Transmitted Disease: No HIV/AIDS: No Genitourinary: Yes (CHRONIC RENAL INSUFFICIENCY) Bladder Infection, Kidney Stones, Renal Failure Gastrointestinal: Yes (DIABETIC GASTROPARESIS-BEEN EVALUATED FOR GASTRIC PACEMAKER;CHR ABD PAIN ) Gastroesophageal Reflux, Hemorrhoids, Chronic Diarrhea, Hiatal Hernia, Ulcer Musculoskeletal: Yes (CHRONIC NECK PAIN;LEFT FOOT FRACTURE ) Degenerate Disk Disease, Fibromyalgia, Back Injury, Chronic Back Pain, Fractures Endocrine: Yes (TYPE 1 DIABETES, DX AGE 8-POOR CONTROL;HGB A1C 11.6- 06/2019;MORBID OBESITY) Diabetes, Insulin dep, Hypothyroidsim HEENT: Yes (EXTREMELY POOR DENTITION-MOST TEETH DECAYED DOWN TO GUMS) Loss of Vision: Bilateral Hearing Impairment: Denies Cancer: No Psychosocial: Yes (BORDERLINE PERSONALITY) Sleep Difficulties, Anxiety, PTSD, Personality Disorder, Depression Integumentary: Yes (ABSCESSES, CELLULITIS, ETC. ) Blood Disorders: Yes (ANEMIA) Adverse Reaction/Blood Tranf: No Family Medical History Completed stroke 19 MOTHER Diabetes mellitus 19 FATHER 19 MOTHER MATERNAL GRANDMOTHER MATERNAL GRANDFATHER P GRANDFATHER FH: breast cancer 19 MOTHER Kidney disease MATERNAL GRANDFATHER Myocardial infarction 19 FATHER, Onset:58 Cancer, CAD Over 55 Years Old, COPD, CVA, Diabetes, Hypertension, Lung Disease, Psychiatric Problems, Seizures, Stroke PSH: -07/14/19--I&D AND DEBRIDEMENTS OF BILATERAL PERIRECTAL ABSCESSES WITH NECROTIZING FASCITIS--DR. JOHNSON -PORT RIGHT CHEST PLACMENT WITH ADJUSTMENTS AND REPLACEMENTS -CARDIAC CATHS--02/2016-NO INTERVENTION; LAST CATH 02/27/18--MILD TO MODERATE CAD WITH NON-OBSTRUCTIVE DISEASE -APPENDECTOMY -BLADDER SURGERY -CHOLECYSTECTOMY -TONSILLECTOMY -HYSTERECTOMY/BSO OR LSO - X 4 -EGD/COLONOSCOPY -HERNIA REPAIR Physical Exam Vital Signs Vital Signs - First Documented 08/11/19 23:50 Temp 37.3 Pulse 104 Resp 20 B/P (MAP) 135/64 (87) Pulse Ox 97 O2 Delivery Room Air Capillary Refill : Less Than 3 Seconds Height, Weight, BMI Height: 5'2.00" Weight: 215lbs. 0.0oz. 97.393124lg; 38.00 BMI Method:Stated General Appearance: No Apparent Distress, Obese HEENT: PERRL/EOMI, Other (ORAL MUCOSA SLIGHTLY DRY; POOR DENTITION, WITH NEARLY ALL TEETH DECAYED DOWN TO GUMS) Neck: Normal Inspection Respiratory: Normal Breath Sounds, No Accessory Muscle Use, No Respiratory Distress Cardiovascular: Regular Rate, Rhythm, No JVD, No Murmur Gastrointestinal: Non Tender, Soft Rectal: Other (BILATERAL BUTTOCKS/PERIRECTAL/PERINEAL AREAS WITH LARGE OPEN WOUNDS WITH ) Extremity: Normal Capillary Refill, Pedal Edema (TRACE BILATERALLY), Other (TOENAILS OVERGROWN AND VERY THICKENED/MYCOTIC, WITH CHRONIC APPEARING WOUND TO DISTAL ASPECT OF LEFT 4TH TOE, WITH MILD SURROUNDING ERYTHEMA AND SWELLING. NO DRAINAGE--AREAS HAS THIN SCAB. 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 Norm as Tested; No Motor Weakness; Sensory Deficit (DECREASED SENSATION TO BOTH FEET) Focused Exam Sepsis Stage: Septic Shock Possible Source: Skin/Soft Tissue Lactate Level 08/12/19 00:15: Lactic Acid Level 2.44*H 08/12/19 02:14: Lactic Acid Level 3.60*H 08/12/19 04:40: Lactic Acid Level 1.35 Time of Focused Exam: 10:30 Respiratory: Normal Breath Sounds, No Accessory Muscle Use, No Respiratory Distress Cardiovascular: Regular Rate, Rhythm, No JVD, No Murmur, Normal Peripheral Pulses Capillary Refill: Less Than 3 Seconds Skin: normal color, warm/dry, other (SURGICAL WOUNDS TO BUTTOCKS) Lactic Acid Level Laboratory Tests Test 08/12/19 04:40 Lactic Acid Level 1.35 MMOL/L (0.50-2.00) Within 3hrs of presentation: Admin fluids, Admin 30ml/kg IBW due to BMI>30, Admin ABX, Blood cultures prior to ABX's, Focus exam, Lactate level, Vasopressin therapy Progress/Results/Core Measures Suspected Sepsis Recent Fever Within 48 Hours: Yes Infection Criteria Present: Suspected New Infection New/Unexplained Altered Menta: No Sepsis Screen: Possible Severe Sepsis Risk SIRS Temperature: Pulse: 104 Respiratory Rate: 20 Laboratory Tests 08/12/19 00:15: White Blood Count 8.2 Blood Pressure 135 /64 Mean: 87 08/12/19 00:15: Lactic Acid Level 2.44*H 08/12/19 02:14: Lactic Acid Level 3.60*H 08/12/19 04:40: Lactic Acid Level 1.35 Laboratory Tests 08/12/19 00:15: Creatinine 0.92, Platelet Count 279, Total Bilirubin 0.3 08/12/19 00:36: INR Comment 0.9 Results/Orders Lab Results Laboratory Tests Test 08/12/19 00:15 08/12/19 00:17 08/12/19 00:19 08/12/19 00:36 Range/Units White Blood Count 8.2 4.3-11.0 10^3/uL Red Blood Count 3.42 L 4.35-5.85 10^6/uL Hemoglobin 9.6 L 11.5-16.0 G/DL Hematocrit 29 L 35-52 % Mean Corpuscular Volume 85 80-99 FL Mean Corpuscular Hemoglobin 28 25-34 PG Mean Corpuscular Hemoglobin Concent 33 32-36 G/DL Red Cell Distribution Width 13.4 10.0-14.5 % Platelet Count 279 130-400 10^3/uL Mean Platelet Volume 9.6 7.4-10.4 FL Neutrophils (%) (Auto) 48 42-75 % Lymphocytes (%) (Auto) 40 12-44 % Monocytes (%) (Auto) 8 0-12 % Eosinophils (%) (Auto) 3 0-10 % Basophils (%) (Auto) 1 0-10 % Neutrophils # (Auto) 4.0 1.8-7.8 X 10^3 Lymphocytes # (Auto) 3.3 1.0-4.0 X 10^3 Monocytes # (Auto) 0.6 0.0-1.0 X 10^3 Eosinophils # (Auto) 0.3 0.0-0.3 10^3/uL Basophils # (Auto) 0.1 0.0-0.1 10^3/uL Sodium Level 133 L 135-145 MMOL/L Potassium Level 3.4 L 3.6-5.0 MMOL/L Chloride Level 96 L 98-107 MMOL/L Carbon Dioxide Level 25 21-32 MMOL/L Anion Gap 12 5-14 MMOL/L Blood Urea Nitrogen 7 7-18 MG/DL Creatinine 0.92 0.60-1.30 MG/DL Estimat Glomerular Filtration Rate > 60 BUN/Creatinine Ratio 8 Glucose Level 486 *H 70-105 MG/DL Lactic Acid Level 2.44 *H 0.50-2.00 MMOL/L Calcium Level 8.7 8.5-10.1 MG/DL Corrected Calcium 9.2 8.5-10.1 MG/DL Total Bilirubin 0.3 0.1-1.0 MG/DL Aspartate Amino Transf (AST/SGOT) 15 5-34 U/L Alanine Aminotransferase (ALT/SGPT) 18 0-55 U/L Alkaline Phosphatase 108 40-136 U/L Total Protein 6.4 6.4-8.2 GM/DL Albumin 3.4 3.2-4.5 GM/DL Glucometer 434 *H 70-110 MG/DL Urine Color YELLOW Urine Clarity CLEAR Urine pH 5.5 5-9 Urine Specific [place] 1.015 L 1.016-1.022 Urine Protein NEGATIVE NEGATIVE Urine Glucose (UA) 3+ H NEGATIVE Urine Ketones NEGATIVE NEGATIVE Urine Nitrite NEGATIVE NEGATIVE Urine Bilirubin NEGATIVE NEGATIVE Urine Urobilinogen 0.2 < = 1.0 MG/DL Urine Leukocyte Esterase NEGATIVE NEGATIVE Urine RBC (Auto) NEGATIVE NEGATIVE Urine RBC NONE /HPF Urine WBC NONE /HPF Urine Squamous Epithelial Cells 0-2 /HPF Urine Crystals NONE /LPF Urine Bacteria FEW H /HPF Urine Casts NONE /LPF Urine Mucus NEGATIVE /LPF Urine Culture Indicated CULTURE PENDING Prothrombin Time 13.0 12.2-14.7 SEC INR Comment 0.9 0.8-1.4 Activated Partial Thromboplast Time 24 24-35 SEC Test 08/12/19 02:14 08/12/19 02:58 08/12/19 03:26 08/12/19 03:46 Range/Units Lactic Acid Level 3.60 *H 0.50-2.00 MMOL/L Glucometer 91 77 167 H 70-110 MG/DL Test 08/12/19 04:12 08/12/19 04:40 08/12/19 05:34 08/12/19 07:52 Range/Units Glucometer 151 H 220 H 317 H 70-110 MG/DL Lactic Acid Level 1.35 0.50-2.00 MMOL/L Micro Results Microbiology 08/12/19 Influenza Types A,B Antigen (PIERCE) - Final, Complete My Orders Orders - ARBEN DILLON DO Accucheck Stat ONCE (08/12/19 00:08) Ed Iv/Invasive Line Start (08/12/19 00:08) Monitor-Rhythm Ecg Trace Only (08/12/19 00:08) Cbc With Automated Diff (08/12/19 00:08) Comprehensive Metabolic Panel (08/12/19 00:08) Blood Culture (08/12/19 00:08) Sputum Culture (08/12/19 00:08) Urinalysis (08/12/19 00:08) Urine Culture (08/12/19 00:08) Protime With Inr (08/12/19 00:08) Partial Thromboplastin Time (08/12/19 00:08) Chest 1 View, Ap/Pa Only (08/12/19 00:08) Ed Iv/Invasive Line Start (08/12/19 00:08) Ed Iv/Invasive Line Start (08/12/19 00:08) Vital Signs Adult Sepsis Patie Q15M (08/12/19 00:08) O2 (08/12/19 00:08) Remove Rings In Anticipation O (08/12/19 00:08) Lactic Acid Analyzer (08/12/19 00:08) Influenza A And B Antigens (08/12/19 00:08) Piperacillin Sodium/Tazobactam (Zosyn Vi (08/12/19 00:15) Vancomycin Injection (Vancomycin Injecti (08/12/19 00:15) Ct Abdomen/Pelvis Wo (08/12/19 00:08) Ed Iv/Invasive Line Start (08/12/19 00:11) Ns Iv 1000 Ml (Sodium Chloride 0.9%) (08/12/19 00:11) Insulin (Regular) Human (Humulin R (Per (08/12/19 01:00) Ed Iv/Invasive Line Start (08/12/19 01:21) Ns Iv 1000 Ml (Sodium Chloride 0.9%) (08/12/19 01:21) Accucheck Stat ONCE (08/12/19 02:27) Ekg Tracing (08/12/19 02:27) D5 1/2 Ns W/Kcl 20 Meq/L (Dextrose 5%/0. (08/12/19 03:15) Accucheck Stat ONCE (08/12/19 03:27) D50w (Emergency) Syringe (Dextrose 50% 5 (08/12/19 03:30) Accucheck Stat ONCE (08/12/19 03:31) Ed Iv/Invasive Line Start (08/12/19 04:26) Ns Iv 1000 Ml (Sodium Chloride 0.9%) (08/12/19 04:26) Catheter(Urinary) Insert & Ass 03,15 (08/12/19 04:34) Fentanyl Injection (Sublimaze Injection (08/12/19 05:00) Norepinephrine 4 Mg/250 Ml (Norepinephri (08/12/19 05:15) Accucheck Stat ONCE (08/12/19 05:32) Piperacillin Sodium/Tazobactam (Zosyn Vi (08/12/19 07:45) Accucheck Stat ONCE (08/12/19 07:40) Medications Given in ED Current Medications Medications Dose Ordered Sig/Ramiro Route Start Time Stop Time Status Last Admin Dose Admin Dextrose 25 ml ONCE ONCE IV 08/12/19 03:30 08/12/19 03:31 DC 08/12/19 03:38 25 ML Fentanyl Citrate 50 mcg ONCE ONCE IVP 08/12/19 05:00 08/12/19 05:01 DC 08/12/19 05:33 50 MCG Insulin Human Regular 25 unit ONCE ONCE IV 08/12/19 01:00 08/12/19 01:01 DC 08/12/19 01:14 25 UNIT Piperacillin Sod/ Tazobactam Sod 4.5 gm/Sodium Chloride 100 ml @ 200 mls/hr ONCE ONCE IV 08/12/19 00:15 08/12/19 00:44 DC 08/12/19 01:13 200 MLS/HR Piperacillin Sod/ Tazobactam Sod 4.5 gm/Sodium Chloride 100 ml @ 200 mls/hr ONCE ONCE IV 08/12/19 07:45 08/12/19 08:14 DC 08/12/19 08:24 200 MLS/HR Vancomycin HCl 1000 mg/Sodium Chloride 250 ml @ 250 mls/hr ONCE ONCE IV 08/12/19 00:15 08/12/19 01:14 DC 08/12/19 03:51 250 MLS/HR Vital Signs/I&O 08/11/19 08/11/19 08/12/19 08/12/19 23:50 23:50 04:45 07:30 Temp 37.3 37.3 Pulse 104 79 71 Resp 20 20 18 B/P (MAP) 135/64 (87) 90/50 131/69 (89) Pulse Ox 97 97 95 O2 Delivery Room Air Room Air Room Air Capillary Refill : Less Than 3 Seconds Blood Pressure Mean: 87 Point of Care Testing Finger Stick Blood Glucose: 151 Blood Glucose Action Taken: PROVIDER NOTIFIED Progress Note : Progress Note PT GIVEN 5 LITERS OF SALINE--WITH MINIMAL IMPROVEMENT IN BLOOD PRESSURE--BP REMAINS IN 90'S, WITH BRIEFLY GO UP TO 105 SYSTOLIC, THEN BACK DOWN TO 90'S SYSTOLIC. ON ARRIVAL, PT'S INITIAL HEART RATE WAS 104, WITH INITIAL BP 135/63, BUT FOR REMAINDER OF ER STAY PT'S HEART RATE REMAINED IN THE 70'S. DUE TO NO ICU OR STEP DOWN BEDS AVAILABLE HERE, AND PT IS UNABLE TO SUSTAIN A BP > 100 FOR MORE THAN A FEW MINUTES, PT WAS STARTED ON LEVOPHED AND INITIATED TRANSFER--[facility] IS PT'S PREFERENCE. GIVEN 25 UNITS OF REGULAR INSULIN FOR BLOOD GLUCOSE OF 486--BLOOD GLUCOSE DROPPED TO 71, GIVEN 1/2 AMP OF D50, AND PLACED ON IV OF D5 1/2 NS + 20 MEQ KCL--BLOOD GLUCOSE BACK UP TO 220, THEN LATER UP TO 317. WILL HOLD ADDITIONAL INSULIN DUE TO PT'S DRAMATIC DROP IN GLUCOSE WHEN GIVEN INSULIN EARLIER. PT HAD MINIMAL URINE OUTPUT DURING ER STAY, AND GOODWIN CATHETER WAS PLACED IMMEDIATELY AFTER IT WAS PLACED, PT DEMANDED THAT IT BE REMOVED AND SHE NOW WANTS TO GO HOME. I STRESSED THE IMPORTANCE OF THE CATHETER AND THE REASONS WHY IT IS NEEDED, AND OFFERED PAIN MEDICATION PT STATES THAT IT IS CAUSING PAIN IN URETHRAL AREA. PT CONTINUES TO DEMAND THAT IT BE REMOVED, EVEN AFTER PAIN MEDICATION WAS GIVEN. PT DOES AGREE TO TRANSFER, AND REQUESTS [facility]. PT'S BLOOD PRESSURE UP SIGNIFICANTLY WITH VERY MINIMAL DOSE OF LEVOPHED, HEART RATE REMAINED IN 70'S AND OTHER VITALS REMAINED STABLE LEVOPHED QUICKLY TITRATED DOWN TO LOWEST DOSE POSSIBLE--BP 147/77 AFTER CONTACTING [facility] AT 0600, THEY ADVISED TO STOP THE LEVOPHED BP DID HAVE A RAPID AND SIGNIFICANT DROP IN BLOOD PRESSURE AGAIN WHEN LEVOPHED WAS STOPPED--BP DOWN TO THE 80'S/30'S AND LEVOPHED INITIATED AGAIN AT 0645, WITH BP BACK UP TO 130'S/70'S ECG Initial ECG Impression Date: Aug 12, 2019 Initial ECG Impression Time: 02:32 Initial ECG Rate: 75 Initial ECG Rhythm: Normal Sinus (RBBB) Initial ECG Comparisson: Unchanged Diagnostic Imaging Comments CXR--NO ACUTE PROCESS, PENDING RADIOLOGIST REVIEW CT ABDOMEN/PELVIS--NO DRAINABLE ABSCESS IN GLUTEAL, PERIANAL OR PERIRECTAL AREAS. OTHERWISE NO ACUTE PROCESS IN ABDOMEN/PELVIS--PER STAT RAD VIA FAX AT 0118 Reviewed: Reviewed by Me Departure Communication (Admissions) NO ICU OR STEP DOWN BEDS AVAILABLE HERE. 0515--CALLED [facility]. WILL CALL BACK 0600--[facility] CALLED BACK, HEAD OF MATHEMATICS HAS ADVISED TO STOP LEVOPHED DRIP, AND ADMIT TO MEDICAL FLOOR. THEY WILL CALL BACK 0610--[facility] CALLED BACK, DR. FALLON HAS ACCEPTED PT FOR ADMIT. WILL CALL BACK WITH BED ASSIGNMENT. 0707--CALLED [facility] BACK AND INFORMED THEM THAT PT WAS REQUIRING LEVOPHED DRIP AGAIN, AND WILL NEED ICU CARE. THEY WILL CALL BACK WITH NEW ACCEPTING PHYSICIAN AND NEW BED ASSIGNMENT 0735--[facility] CALLED BACK, DR. LINH KERR, HEAD OF MATHEMATICS HAS ACCEPTED THE PT FOR ADMIT TO ICU, NEW BED # AND NURSING REPORT # GIVEN. Impression Primary Impression: Septic shock Additional Impressions: PERIRECTAL ABSCESS AND CELLULITIS S/P SURGICAL DEBRIDEMENT OF BILATERAL PERIRECTAL ABSCESSES Uncontrolled type 1 diabetes mellitus Chronic anemia DIABETIC FOOT ULCER LEFT 4TH TOE WITH CELLULITIS Disposition: [facility] Condition: Stable Transfer Transfer Reason: Diversion Transfer Facility: Method of Transfer: EMS Departure-Patient Inst. Referrals: [facility] (PCP) Primary Care Physician CHARAN JAQUEZ APRN (Family) Primary Care Physician ARBEN DILLON DO Aug 12, 2019 04:28
[2019-08-12] MEDS ORDERED: fentaNYL INJECTION 100 MCG/2 ML AMP IVP ONE (05:00)
[2019-08-12] MEDS ORDERED: NOREPINEPHRINE 4 MG/250 ML 250 ML IV SCH (05:15)
--- NOTE | 2019-08-12 05:28 | NUR ---
PT REQUESTS TO DR. DILLON THAT GOODWIN CATHETER BE REMOVED, REMOVED PER PT'S REQUEST
--- NOTE | 2019-08-12 05:34 | NUR ---
PTS BLOOD GLUCOSE 220MG/DL PER FINGER STICK
--- NOTE | 2019-08-12 07:00 | NUR ---
DR DILLON CALLLED [facility] BACK TO TALK WITH TRANSFER TEAM DUE TO PATIENT ON LEVOPHED AND UNABALE TO TAKE HER OFF.
--- NOTE | 2019-08-12 07:00 | NUR ---
REPORT FROM BONY MAST AND RESUME CARE OF PATIENT.
--- NOTE | 2019-08-12 07:02 | Diagnostic Imaging Report ---
EXAMINATION: Chest radiograph, portable AP view. DATE: 08/12/2019 12:48 AM hours. INDICATION: 48-year-old female, shortness of breath. COMPARISON: July 14, 2019. FINDINGS: The right-sided port catheter tip overlies the mid SVC. Stable overall appearance of the cardiomediastinal silhouette. There is no identified pneumothorax. There is no large pleural effusion. There is no identified focal airspace consolidation. IMPRESSION: 1. No identified acute cardiopulmonary abnormality. Dictated by: Dictated on workstation # [id number]
--- NOTE | 2019-08-12 07:05 | NUR ---
TO ROOM LEVAPHED INFUSING PER PUMP AT 0.5MCG MCG HR. PATIENT ALERT MONITOR SR. MALE AT [facility].
--- NOTE | 2019-08-12 07:23 | NUR ---
EMS SHIFT CAPT NOTIFIED OF TRANSFER.
[2019-08-12 07:30] VITALS: BP 131/69
--- NOTE | 2019-08-12 07:30 | Diagnostic Imaging Report ---
PROCEDURE: CT abdomen and pelvis without contrast. TECHNIQUE: Multiple contiguous axial images were obtained through the abdomen and pelvis without the use of intravenous contrast. Auto Exposure Controls were utilized during the CT exam to meet ALARA standards for radiation dose reduction. DATE: August 12, 2019. COMPARISON: CT abdomen and pelvis July 14, 2019. INDICATION: 48-year-old female, history of gluteal infection status post drainage 3 weeks ago. Abdominal pain. FINDINGS: There are limitations for evaluation of the abdominal organs, neoplastic processes, abscess, and limited evaluation of the vasculature relating to the lack of intravenous contrast. The visualized portions of the lung bases are clear. The heart is not enlarged. There is no identified pericardial effusion. The liver is normal in size and contour. The patient is status post cholecystectomy. There is no intrahepatic or extrahepatic bile duct dilation. The main pancreatic duct is not abnormally dilated. Unremarkable noncontrast evaluation of the pancreatic parenchyma. The spleen is not enlarged. The adrenal glands are unremarkable. Unremarkable appearance of the renal parenchyma. The urinary collecting systems are not distended. There is no identified renal or ureteral stone. There are pelvic calcifications consistent with phleboliths. The urinary bladder is unremarkable. Uterus is not seen and may be surgically absent. The intestinal tract is not distended. The appendix is not well seen. There are no secondary findings to suggest acute appendicitis. There are postoperative changes of anterior abdominal wall likely relating to prior hernia repair. There is a small fat-containing right anterior abdominal wall hernia best illustrated on axial image 72 and adjacent sequential images. There is no stranding within the fat of the hernia. There is no free intraperitoneal air. There is no drainable fluid collection. There is no free pelvic fluid. There is no identified abnormally enlarged lymph node in the abdomen or pelvis which meets CT size criteria for adenopathy. There are mild atherosclerotic calcifications present. There are degenerative changes of the spine. There is no identified acute bony abnormality. IMPRESSION: CT ABDOMEN AND PELVIS. 1. No identified acute abnormality in the abdomen or pelvis. Dictated by: Dictated on workstation # [id number]
--- NOTE | 2019-08-12 07:49 | NUR ---
EMS NOTIFIED OF TRANSFER
--- NOTE | 2019-08-12 07:53 | NUR ---
FS BLOOD SUGAR DONE DR SANTANA SUEROFIED NO NEW TX
--- NOTE | 2019-08-12 08:11 | NUR ---
REPORT GIVEN TO [facility]
--- NOTE | 2019-08-12 08:30 | NUR ---
NO CHANGE PATIET APPEARS TO BE RESTING MONTIOR NSR DRIPS CON'T TO INFUSE.
[2019-08-12 09:11] VITALS: BP 145/69
== END 2019-08-12 09:15 | disposition short-term general hospital (02) ==
LOC: EDUNIT# 23:35 → ER 23:37
DX: T81.12XA Postprocedural septic shock, initial encounter (principal); A41.9 Sepsis, unspecified organism; K61.1 Rectal abscess; E10.621 Type 1 diabetes mellitus with foot ulcer; L97.529 Non-pressure chronic ulcer of other part of left foot with unspecified severity; D64.9 Anemia, unspecified; L03.116 Cellulitis of left lower limb; J44.9 Chronic obstructive pulmonary disease, unspecified; I12.9 Hypertensive chronic kidney disease with stage 1 through stage 4 chronic kidney disease, or unspecified chronic kidney disease; N18.9 Chronic kidney disease, unspecified; E10.22 Type 1 diabetes mellitus with diabetic chronic kidney disease; E10.43 Type 1 diabetes mellitus with diabetic autonomic (poly)neuropathy; K31.84 Gastroparesis; G43.909 Migraine, unspecified, not intractable, without status migrainosus; E10.42 Type 1 diabetes mellitus with diabetic polyneuropathy; K21.9 Gastro-esophageal reflux disease without esophagitis; M79.7 Fibromyalgia; E66.01 Morbid (severe) obesity due to excess calories; F32.9 Major depressive disorder, single episode, unspecified; F60.9 Personality disorder, unspecified; F41.9 Anxiety disorder, unspecified; F43.10 Post-traumatic stress disorder, unspecified; F17.210 Nicotine dependence, cigarettes, uncomplicated; Z68.38 Body mass index [BMI] 38.0-38.9, adult; Z80.3 Family history of malignant neoplasm of breast; Z99.81 Dependence on supplemental oxygen; Z88.5 Allergy status to narcotic agent; Z88.2 Allergy status to sulfonamides; Z88.6 Allergy status to analgesic agent; Z88.8 Allergy status to other drugs, medicaments and biological substances
CPT/HCPCS: 36415; 51702; 71045; 74176; 80053; 81000; 82962; 83605; 85025; 85610; 85730; 87040; 87088; 87804; 93005; 93041

== ENCOUNTER 2021-05-23 01:48 | Emergency (ER) | payer MEDICAID ==
[~2021-05-23] VITALS: Ht 157 cm; Wt 94.0 kg
[~2021-05-23 01:48] MED LIST changes: +CLOT15CR28 TOP; -CLOT15CR5 TOP; +CYCL10TA25 PO; -CYCL10TA9 PO; +ESCI20TA39 PO; -ESCI20TA45 PO; -OMEP40CA27 PO; +OMEP40CA6 PO; -OXYC-465 PO; -OXYC-471 PO; +OXYC-556 PO; +OXYC1TAB11 PO; -PANT40TA3 PO; +PANT40TA52 PO; +QUET50TA23 PO; -QUET50TA55 PO; +TIZA-169 PO; +TIZA-186 PO; -TIZA2TAB4 PO; -TIZA4TAB4 PO
[2021-05-23] MEDS ORDERED: NS IV 1000 ML 1,000 ML IV SCH (02:15)
[2021-05-23] MEDS ORDERED: PANTOPRAZOLE 40 MG (PROTONIX) VIAL IV ONE (02:15)
[2021-05-23] MEDS ORDERED: PROMETHAZINE INJ 25 MG/ML (PHENERGAN) AMP IVP ONE (02:15)
[2021-05-23] MEDS ORDERED: diphenhydrAMINE 50 MG/ML INJ (BENADRYL) IVP ONE (02:15)
--- NOTE | 2021-05-23 02:21 | ED GI ---
General Chief Complaint: Catheter/Drain/Tube Problems Stated Complaint: ABD PAIN VOMITING DISCHARGE/PAIN FROM J TUBE Source of Information: Patient Exam Limitations: No Limitations History of Present Illness Date Seen by Provider: May 23, 2021 Time Seen by Provider: 01:57 Initial Comments Patient to ER by private conveyance with significant other chief complaint of no bowel movement for 7 days, abdominal pain and greenish discharge from her J-tube for the past day or 2. She is having nausea but no vomiting. She has a history of type 1 diabetes with poor control with multiple histories of toe amputations, abscesses and says her blood sugars been running in the 300s lately. G-tube was placed surgically at [facility] for severe gastroparesis 2 to 4 weeks ago. Her primary care, endocrinology and surgeons are all at [facility]. Patient states she h as had problems with bleeding from the colon and had to be transfused recently. She is not having any fevers or chills. She is been using MiraLAX and Senokot without success. She is also noticed green mucousy discharge from around and from within the J-tube. She does not take anything by mouth anymore. Patient had her gallbladder, appendix, uterus removed. Multiple C-sections. Recent colonoscopies at [facility]. Allergies and Home Medications Allergies Coded Allergies: acetaminophen (Verified Allergy, Mild, 10/10/16) hydrocodone (Verified Allergy, Mild, 10/10/16) Iodinated Contrast Media (Verified Allergy, Unknown, 10/10/16) Sulfa (Sulfonamide Antibiotics) (Verified Allergy, Unknown, 10/10/16) codeine (Verified Allergy, Unknown, 10/10/16) iodine (Verified Allergy, Unknown, 10/10/16) metoclopramide (Verified Allergy, Unknown, 10/10/16) ondansetron (Verified Allergy, Unknown, 10/10/16) prochlorperazine (Verified Allergy, Unknown, 10/10/16) shellfish derived (Unverified Allergy, Unknown, 02/28/18) FROM UNCODED ALLERGIES Uncoded Allergies: IV Dye (Allergy, Mild, 08/17/15) tape (Adverse Reaction, Mild, blister, 08/17/15) Patient Home Medication List Home Medication List Reviewed: Yes Amitriptyline HCl (Amitriptyline HCl) 75 Mg Tablet, 75 MG PO HS PRN for SLEEP, (Reported) Entered as Reported by: ANTOLIN MEJIA on 07/15/19 1152 Amoxicillin/Potassium Clav (Augmentin 875-125 Tablet) 1 Each Tablet, 1 EACH PO BID Prescribed by: NELLY MILLS on 07/16/19 1120 Cephalexin (Cephalexin) 250 Mg/5 Ml Susp.recon, 500 MG PO QIDACHS Prescribed by: BECKIE YUAN on 05/23/21 0509 Diphenhydramine HCl (Benadryl Allergy) 25 Mg Tablet, 50 MG PO HS PRN for SLEEP, (Reported) Entered as Reported by: DAIANA GARCIA on 03/02/16 0745 Escitalopram Oxalate (Escitalopram Oxalate) 20 Mg Tablet, 20 MG PO 1200, (Reported) Entered as Reported by: BILL HUGHES on 08/17/15 1050 Fluticasone Propionate (Fluticasone Propionate) 16 Gm [place].susp, 2 SPRAYS NS HS PRN for CONGESTION, (Reported) Entered as Reported by: BILL HUGHES on 12/05/17 1051 Gabapentin (Gabapentin) 800 Mg Tablet, 800 MG PO QID PRN for NERVE PAIN, (Reported) Entered as Reported by: DAIANA GARCIA on 03/02/16 0745 Insulin Detemir (Levemir Flextouch) 100 Unit/1 Ml Insuln.pen, 45 UNIT SQ BID, (Reported) Entered as Reported by: BILL HUGHES on 12/05/17 1051 Insulin Lispro (Humalog Kwikpen) 100 Unit/1 Ml Insuln.pen, 45 UNIT SQ TIDWM PRN for HYPERGLYCEMIA, (Reported) Entered as Reported by: ANTOLIN MEJIA on 07/15/19 1447 Metronidazole (Flagyl) 500 Mg Tablet, 500 MG PO TID Prescribed by: RENARD GRANDE on 07/16/19 1149 Oxycodone HCl/Acetaminophen (Oxycodone-Acetaminophen 5-325) 1 Each Tablet, 1 TAB PO BID PRN for PAIN-MODERATE (5-7), (Reported) Entered as Reported by: DIONNA WATTS on 01/05/18 1329 Promethazine HCl (Promethazine Tablet) 25 Mg Tablet, 25 MG PO BID PRN for NAUSEA/VOMITING, (Reported) Entered as Reported by: DIONNA WATTS on 01/05/18 1320 Quetiapine Fumarate (Quetiapine Fumarate ER) 300 Mg Tab.er.24h, 300 MG PO HS, (Reported) Entered as Reported by: ANTOLIN MEJIA on 07/15/19 1152 Tizanidine HCl (Tizanidine HCl) 4 Mg Tablet, 4 MG PO TID PRN for MUSCLE SPASMS, (Reported) Entered as Reported by: BILL HUGHES on 02/28/18 1035 Review of Systems Review of Systems Constitutional: No chills, No diaphoresis EENTM: No Blurred Vision, No Double Vision Respiratory: Denies Cough, Denies Shortness of Air Cardiovascular: Denies Chest Pain, Denies Edema Gastrointestinal: See HPI, Abdomen Distended, Abdominal Pain, Constipated; Denies Diarrhea; Nausea; Denies Vomiting Genitourinary: Denies Burning, Denies Discharge Musculoskeletal: No back pain, No joint pain Psychiatric/Neurological: Denies Anxiety, Denies Depressed Past Itiqwsh-Pkihpu-Fzmmdh Hx Patient Social History Tobacco Use?: No Substance use?: No Alcohol Use?: No Pt feels they are or have been: No Immunizations Up To Date Tetanus Booster (TDap): Unknown PED Vaccines UTD: No COVID19 Vaccine Correspondence Review Clerk: Vayable Seasonal Allergies Seasonal Allergies: Yes Past Medical History Surgery/Hospitalization HX: J-TUBE, APPY, PERLITA, HYSTO, C-SECT, AMPUTATION. Surgeries: Yes (SEE BELOW) Abdominal, Appendectomy, Bladder Surgery, Cardiac, Gallbladder, Hysterectomy, Oophorectomy, Tonsillectomy Respiratory: Yes (O2 AT HX AT 3L/NC) Sleep Apnea, COPD Currently Using CPAP: No Currently Using BIPAP: No Cardiac: Yes (RBBB;CARDIAC CATHS-MILD TO MODERATE CAD-NO INTERVENTION;SEVERE H IGH TRIGLY ) Coronary Artery Disease, High Cholesterol, Hypertension, Palpitations Neurological: Yes (PERIPHERAL NEUROPATHY BILATERAL FEET/LOWER LEGS;QUESTIONABLE SEIZURE) Headaches /Migraines, Neuropathy, Seizure Disorder 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 Disorders: Yes Female 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 Disorders: Denies 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, Menopausal Sexually Transmitted Disease: No HIV/AIDS: No Genitourinary: Yes (CHRONIC RENAL INSUFFICIENCY) Bladder Infection, Kidney Stones, Renal Failure Gastrointestinal: Yes (DIABETIC GASTROPARESIS-BEEN EVALUATED FOR GASTRIC PACEMAKER;CHR ABD PAIN ) Gastroesophageal Reflux, Hemorrhoids, Chronic Diarrhea, Hiatal Hernia, Ulcer Musculoskeletal: Yes (CHRONIC NECK PAIN;LEFT FOOT FRACTURE ) Degenerate Disk Disease, Fibromyalgia, Back Injury, Chronic Back Pain, Fractures Endocrine: Yes (TYPE 1 DIABETES, DX AGE 8-POOR CONTROL;HGB A1C 11.6- 06/2019;MORBID OBESITY) Diabetes, Insulin dep, Hypothyroidsim HEENT: Yes (EXTREMELY POOR DENTITION-MOST TEETH DECAYED DOWN TO GUMS) Loss of Vision: Bilateral Hearing Impairment: Denies Cancer: No Psychosocial: Yes (BORDERLINE PERSONALITY) Sleep Difficulties, Anxiety, PTSD, Personality Disorder, Depression Integumentary: Yes (ABSCESSES, CELLULITIS, ETC. ) Blood Disorders: Yes (ANEMIA) Adverse Reaction/Blood Tranf: No Family Medical History Completed stroke 19 MOTHER Diabetes mellitus 19 FATHER 19 MOTHER MATERNAL GRANDMOTHER MATERNAL GRANDFATHER P GRANDFATHER FH: breast cancer 19 MOTHER Kidney disease MATERNAL GRANDFATHER Myocardial infarction 19 FATHER, Onset:58 Cancer, CAD Over 55 Years Old, COPD, CVA, Diabetes, Hypertension, Lung Disease, Psychiatric Problems, Seizures, Stroke PSH: -07/14/19--I&D AND DEBRIDEMENTS OF BILATERAL PERIRECTAL ABSCESSES WITH NECROTIZING FASCITIS--DR. JOHNSON -PORT RIGHT CHEST PLACMENT WITH ADJUSTMENTS AND REPLACEMENTS -CARDIAC CATHS--02/2016-NO INTERVENTION; LAST CATH 02/27/18--MILD TO MODERATE CAD WITH NON-OBSTRUCTIVE DISEASE -APPENDECTOMY -BLADDER SURGERY -CHOLECYSTECTOMY -TONSILLECTOMY -HYSTERECTOMY/BSO OR LSO - X 4 -EGD/COLONOSCOPY -HERNIA REPAIR Physical Exam Vital Signs Vital Signs - First Documented 05/23/21 01:58 Temp 36.2 Pulse 117 Resp 18 B/P (MAP) 174/86 (115) Pulse Ox 95 O2 Delivery Room Air Capillary Refill : Height/Weight/BMI Height: 5'2.00" Weight: 215lbs. 0.0oz. 97.509567uo; 38.00 BMI Method:Stated General Appearance: moderate distress, obese HEENT: PERRL/EOMI, pharynx normal Neck: full range of motion, normal inspection Respiratory: lungs clear, normal breath sounds, no respiratory distress, no accessory muscle use Cardiovascular: normal peripheral pulses, regular rate, rhythm Gastrointestinal: normal bowel sounds, soft, distended (Moderately), tenderness (Moderate tenderness all quadrants), other (Surgical wound is well approximated dry clean intact and with negra buttressing the wound edges. The J-tube has whitish-green mucopurulence at its wound base as well as from the tube itself.) Extremities: normal range of motion, non-tender Neurologic/Psychiatric: alert, oriented x 3, other (Anxious) Skin: other (Slight madan pink erythema around wound edges without induration.) Focused Exam Lactate Level 05/23/21 02:18: Lactic Acid Level 2.49*H Lactic Acid Level Laboratory Tests Test 05/23/21 02:18 Lactic Acid Level 2.49 MMOL/L (0.50-2.00) *H Progress/Results/Core Measures Results/Orders Lab Results Laboratory Tests Test 05/23/21 02:18 05/23/21 03:47 05/23/21 04:46 Range/Units White Blood Count 7.0 4.3-11.0 10^3/uL Red Blood Count 3.58 L 3.80-5.11 10^6/uL Hemoglobin 9.5 L 11.5-16.0 g/dL Hematocrit 30 L 35-52 % Mean Corpuscular Volume 83 80-99 fL Mean Corpuscular Hemoglobin 27 25-34 pg Mean Corpuscular Hemoglobin Concent 32 32-36 g/dL Red Cell Distribution Width 13.7 10.0-14.5 % Platelet Count 339 130-400 10^3/uL Mean Platelet Volume 9.7 9.0-12.2 fL Immature Granulocyte % (Auto) 1 % Neutrophils (%) (Auto) 57 42-75 % Lymphocytes (%) (Auto) 33 12-44 % Monocytes (%) (Auto) 6 0-12 % Eosinophils (%) (Auto) 3 0-10 % Basophils (%) (Auto) 0 0-10 % Neutrophils # (Auto) 4.0 1.8-7.8 10^3/uL Lymphocytes # (Auto) 2.3 1.0-4.0 10^3/uL Monocytes # (Auto) 0.5 0.0-1.0 10^3/uL Eosinophils # (Auto) 0.2 0.0-0.3 10^3/uL Basophils # (Auto) 0.0 0.0-0.1 10^3/uL Immature Granulocyte # (Auto) 0.0 0.0-0.1 10^3/uL Prothrombin Time 13.0 12.2-14.7 SEC INR Comment 0.9 0.8-1.4 Sodium Level 136 135-145 MMOL/L Potassium Level 3.3 L 3.6-5.0 MMOL/L Chloride Level 100 98-107 MMOL/L Carbon Dioxide Level 23 21-32 MMOL/L Anion Gap 13 5-14 MMOL/L Blood Urea Nitrogen 6 L 7-18 MG/DL Creatinine 0.87 0.60-1.30 MG/DL Estimat Glomerular Filtration Rate 69 BUN/Creatinine Ratio 7 Glucose Level 329 H 70-105 MG/DL Lactic Acid Level 2.49 *H 0.50-2.00 MMOL/L Calcium Level 8.9 8.5-10.1 MG/DL Corrected Calcium 9.3 8.5-10.1 MG/DL Magnesium Level 1.7 1.6-2.4 MG/DL Total Bilirubin 0.3 0.1-1.0 MG/DL Aspartate Amino Transf (AST/SGOT) 11 5-34 U/L Alanine Aminotransferase (ALT/SGPT) 13 0-55 U/L Alkaline Phosphatase 94 40-136 U/L C-Reactive Protein High Sensitivity 0.52 H 0.00-0.50 MG/DL Total Protein 6.3 L 6.4-8.2 GM/DL Albumin 3.5 3.2-4.5 GM/DL Urine Color OTHER H Urine Clarity CLEAR Urine pH 6.0 5-9 Urine Specific [place] <=1.005 1.016-1.022 Urine Protein NEGATIVE NEGATIVE Urine Glucose (UA) 3+ H NEGATIVE Urine Ketones NEGATIVE NEGATIVE Urine Nitrite NEGATIVE NEGATIVE Urine Bilirubin NEGATIVE NEGATIVE Urine Urobilinogen 0.2 < = 1.0 MG/DL Urine Leukocyte Esterase NEGATIVE NEGATIVE Urine RBC (Auto) 1+ H NEGATIVE Urine RBC 0-2 /HPF Urine WBC RARE /HPF Urine Squamous Epithelial Cells 0-2 /HPF Urine Crystals NONE /LPF Urine Bacteria TRACE /HPF Urine Casts NONE /LPF Urine Mucus NEGATIVE /LPF Urine Culture Indicated NO Glucometer 113 H 70-110 MG/DL My Orders Orders - BECKIE YUAN Ed Iv/Invasive Line Start (05/23/21 02:06) Ns Iv 1000 Ml (Sodium Chloride 0.9%) (05/23/21 02:15) Promethazine Injection (Phenergan Injec (05/23/21 02:15) Diphenhydramine Injection (Benadryl Inje (05/23/21 02:15) Cbc With Automated Diff (05/23/21 02:06) Comprehensive Metabolic Panel (05/23/21 02:06) Hs C Reactive Protein (05/23/21 02:06) Ua Culture If Indicated (05/23/21 02:06) Peg Tube Check (05/23/21 02:06) Ct Abdomen/Pelvis Wo (05/23/21 02:06) Blood Culture (05/23/21 02:06) Lactic Acid Analyzer (05/23/21 02:06) Protime With Inr (05/23/21 02:06) Pantoprazole Injection (Protonix Injecti (05/23/21 02:15) Magnesium (05/23/21 02:10) Diatrizoate Meglum/Sodium 37% (Gastrogra (05/23/21 02:30) Insulin (Regular) Human (Novolin R (Per (05/23/21 03:15) Fentanyl Inj (Sublimaze Injection) (05/23/21 03:15) Accucheck Stat ONCE (05/23/21 04:44) Medications Given in ED Current Medications Medications Dose Ordered Sig/Ramiro Route Start Time Stop Time Status Last Admin Dose Admin Diatrizoate Meglum/ Diatrizoate Sod 120 ml ONCE ONCE NG 05/23/21 02:30 05/23/21 02:31 DC 05/23/21 03:14 30 ML Diphenhydramine HCl 25 mg ONCE ONCE IVP 05/23/21 02:15 05/23/21 02:16 DC 05/23/21 02:21 25 MG Fentanyl Citrate 50 mcg ONCE ONCE IVP 05/23/21 03:15 05/23/21 03:16 DC 05/23/21 03:19 50 MCG Insulin Human Regular 5 unit ONCE ONCE IV 05/23/21 03:15 05/23/21 03:16 DC 05/23/21 03:19 5 UNIT Pantoprazole 40 mg ONCE ONCE IV 05/23/21 02:15 05/23/21 02:16 DC 05/23/21 02:21 40 MG Promethazine HCl 25 mg ONCE ONCE IVP 05/23/21 02:15 05/23/21 02:16 DC 05/23/21 02:21 25 MG Vital Signs/I&O 05/23/21 05/23/21 01:58 05:20 Temp 36.2 36.5 Pulse 117 89 Resp 18 16 B/P (MAP) 174/86 (115) 117/71 Pulse Ox 95 98 O2 Delivery Room Air Room Air Progress Progress Note #1: Time: 02:23 Progress Note We will put a little contrast in the tube and get a plain film just to check for placement before we give a load of Gastrografin for CT abdomen and pelvis looking for bowel obstruction. Will address her blood sugars with regular insulin through an IV. Suspect that she may have impaired absorption giving her recent surgeries and wound healing around her abdomen wall. Will obtain blood culture. Patient states Phenergan is the only nausea medicine she can tolerate so we will give her a dose of that and some Benadryl as well as a liter of normal saline. Progress Note #2: Time: 05:05 Progress Note Patient's pain is little better after 50 of fentanyl. Explained to her findings and my recommendations to follow-up with wound care for her chronic toe wound, will put her on some Keflex for her JG ostomy site infection and have her follow-up on Monday with her primary surgery team who placed the jejunostomy. Patient has received a liter of fluids. Because of her history of heart failure I would not give her any more. Patient is okay with this plan. Diagnostic Imaging Diagonstic Imaging: Xray Plain Films/CT/US/NM/MRI: abdomen, pelvis Comments Plain film contrast in the jejunum good tube placement. NAME: KARMEN LEÓN [facility] REC#: [id number] PT STATUS: REG ER : 1970 PHYSICIAN: BECKIE YUAN MD ADMIT DATE: 05/23/21/ER Draft Date of Exam:05/23/21 PEG TUBE CHECK Indication: Abdominal pain, jejunostomy tube drainage. Comparison: None. Discussion: Two views of the abdomen were obtained. The 2nd view shows injected contrast to the jejunostomy tube contained within small bowel within the left abdomen confirming the tube is in good position. The gallbladder appears to be surgically absent. Suspect hernia repair within the lower abdominal wall. Nonobstructive bowel gas pattern. No osseous abnormality. Impression: 1. Jejunostomy tube in good position within small bowel within the left abdomen. Dictated on workstation # [id number] Dict: 05/23/21 0353 Trans: 05/23/212 COSTA [id number] Interpreted by: MILY LOVING MD Electronically signed by: Reviewed: Reviewed by Me Diagonstic Imaging: CT (Without IV contrast) Plain Films/CT/US/NM/MRI: abdomen (Gastrografin through the J-tube), pelvis Comments [facility] [place] NAME: KARMEN LEÓN [facility] REC#: [id number] PT STATUS: REG ER : 1970 PHYSICIAN: BECKIE YUAN MD ADMIT DATE: 05/23/21/ER Draft Date of Exam:05/23/21 CT ABDOMEN/PELVIS WO PROCEDURE: CT abdomen and pelvis without contrast. TECHNIQUE: Multiple contiguous axial images were obtained through the abdomen and pelvis without the use of intravenous contrast. Auto Exposure Controls were utilized during the CT exam to meet ALARA standards for radiation dose reduction. Indication: Abdominal pain with constipation and nausea, drainage from the jejunostomy tube. Comparison: 08/12/2019. Discussion: The lung bases are well-aerated. Normal heart size. No pleural or pericardial fluid. The gallbladder is surgically absent. The liver, stomach, spleen, pancreas, and adrenal glands are unremarkable. No renal stone or hydronephrosis. The bladder is unremarkable. Uterus is surgically absent. Contrast is noted throughout the large and small bowel. Jejunostomy tube is present on the left and appears in good position. No obstruction, pneumatosis, or pneumoperitoneum. Prior hernia repair is noted within the lower anterior abdominal wall. No ascites or adenopathy. The aorta is normal in caliber. No acute osseous abnormality. Impression: 1. Jejunostomy tube appears in good position. No acute abnormality within the abdomen or pelvis. Dictated on workstation # [id number] Dict: 05/23/218 Trans: 05/23/21 0414 [place]STA [id number] Interpreted by: MILY LOVING MD Electronically signed by: Reviewed: [facility]ed [facility], Reviewed by Me Departure Impression Primary Impression: Jejunostomy site infection Additional Impressions: Diabetic gastroparesis associated with type 1 diabetes mellitus Hyperglycemia Diabetic toe ulcer in type 1 diabetes mellitus Disposition: 01 HOME, SELF-CARE Condition: Stable Departure-Patient Inst. Decision time for Depature: 05:06 Referrals: NO,LOCAL PHYSICIAN (PCP) Primary Care Physician MIRACLE CASTANEDA MD Patient Instructions: Diabetic Foot Ulcer (DC), High Blood Sugar, Adult Add. Discharge Instructions: Keep the skin around your jejunostomy clean with regular soap and water and dressed with dry clean gauze. You may use topical Vaseline if you like. Keep the wound clean with regular soap and water only. Keflex 500 mg 4 times a day through your jejunostomy site. Monday follow-up with your surgery team by phone for instructions. Monday call for a follow-up appointment with the wound care center and Dr. Castaneda. All discharge instructions reviewed with patient and/or family. Voiced understanding. Scripts Cephalexin (Cephalexin) 250 Mg/5 Ml Susp.recon 500 MG PO QIDACHS for 7 Days, #300 ML 0 Refills Prov: BECKIE YUAN 05/23/21 Copy Copies To 1: MIRACLE CASTANEDA MD, TITUS J May 23, 2021 02:21
[2021-05-23] MEDS ORDERED: DIATRIZOATE MEGLUM/SODIUM 37% 120 ML (GASTROGRAFIN) NG ONE (02:30)
[2021-05-23 02:31] LABS: BASOPHILS % (AUTO) 0 % (0-10); EOSINOPHILS # (AUTO) 0.2 10^3/uL (0.0-0.3); EOSINOPHILS % (AUTO) 3 % (0-10); HEMATOCRIT 30 % (35-52); HEMOGLOBIN 9.5 g/dL (11.5-16.0); LYMPHOCYTES # (AUTO) 2.3 10^3/uL (1.0-4.0); LYMPHOCYTES % (AUTO) 33 % (12-44); MEAN CORPUSCULAR HEMOGLOBIN 27 pg (25-34); MEAN CORPUSCULAR HGB CONC 32 g/dL (32-36); MEAN CORPUSCULAR VOLUME 83 fL (80-99); MEAN PLATELET VOLUME 9.7 fL (9.0-12.2); MONOCYTES # (AUTO) 0.5 10^3/uL (0.0-1.0); MONOCYTES % (AUTO) 6 % (0-12); NEUTROPHILS % (AUTO) 57 % (42-75); PLATELET COUNT 339 10^3/uL (130-400)
[2021-05-23 02:42] LABS: ALBUMIN 3.5 GM/DL (3.2-4.5); INR 0.9 (0.8-1.4); POTASSIUM 3.3 MMOL/L (3.6-5.0)
[2021-05-23 02:43] LABS: CALCIUM 8.9 MG/DL (8.5-10.1)
[2021-05-23 02:44] LABS: TOTAL PROTEIN 6.3 GM/DL (6.4-8.2)
[2021-05-23 02:46] LABS: BILIRUBIN,TOTAL 0.3 MG/DL (0.1-1.0)
[2021-05-23 02:48] LABS: CREATININE SERUM 0.87 MG/DL (0.60-1.30)
[2021-05-23 02:51] LABS: MAGNESIUM 1.7 MG/DL (1.6-2.4)
[2021-05-23] MEDS ORDERED: inSUlin (REGULAR) HUMAN 1 UNIT/0.01 ML (CHARGE PER UNIT) IV ONE (03:15)
[2021-05-23] MEDS ORDERED: fentaNYL INJ 100 MCG/2 ML AMP IVP ONE (03:15)
[2021-05-23 03:55] LABS: BILIRUBIN,URINE NEGATIVE (NEGATIVE); CLARITY,URINE CLEAR; GLUCOSE, URINE (UA) 3+ (NEGATIVE); KETONES,URINE NEGATIVE (NEGATIVE); LEUKOCYTE ESTERASE ,URINE NEGATIVE (NEGATIVE); NITRITE,URINE NEGATIVE (NEGATIVE); PROTEIN,URINE NEGATIVE (NEGATIVE)
--- NOTE | 2021-05-23 04:03 | Diagnostic Imaging Report ---
Indication: Abdominal pain, jejunostomy tube drainage. Comparison: None. Discussion: Two views of the abdomen were obtained. The 2nd view shows injected contrast to the jejunostomy tube contained within small bowel within the left abdomen confirming the tube is in good position. The gallbladder appears to be surgically absent. Suspect hernia repair within the lower abdominal wall. Nonobstructive bowel gas pattern. No osseous abnormality. Impression: 1. Jejunostomy tube in good position within small bowel within the left abdomen. Dictated by: Dictated on workstation # [id number]
[2021-05-23 04:05] LABS: COLOR,URINE OTHER
[2021-05-23 04:06] LABS: BACTERIA,URINE TRACE /HPF; RBC,URINE 0-2 /HPF; SQUAMOUS EPITHELIAL CELL,UR 0-2 /HPF; WBC,URINE RARE /HPF
--- NOTE | 2021-05-23 04:15 | Diagnostic Imaging Report ---
PROCEDURE: CT abdomen and pelvis without contrast. TECHNIQUE: Multiple contiguous axial images were obtained through the abdomen and pelvis without the use of intravenous contrast. Auto Exposure Controls were utilized during the CT exam to meet ALARA standards for radiation dose reduction. Indication: Abdominal pain with constipation and nausea, drainage from the jejunostomy tube. Comparison: 08/12/2019. Discussion: The lung bases are well-aerated. Normal heart size. No pleural or pericardial fluid. The gallbladder is surgically absent. The liver, stomach, spleen, pancreas, and adrenal glands are unremarkable. No renal stone or hydronephrosis. The bladder is unremarkable. Uterus is surgically absent. Contrast is noted throughout the large and small bowel. Jejunostomy tube is present on the left and appears in good position. No obstruction, pneumatosis, or pneumoperitoneum. Prior hernia repair is noted within the lower anterior abdominal wall. No ascites or adenopathy. The aorta is normal in caliber. No acute osseous abnormality. Impression: 1. Jejunostomy tube appears in good position. No acute abnormality within the abdomen or pelvis. Dictated by: Dictated on workstation # [id number]
[2021-05-23] MEDS ORDERED: CEPH250S PO (05:09)
[2021-05-23 05:20] VITALS: BP 117/71
== END 2021-05-23 05:31 | disposition home or self-care (01) ==
LOC: EDUNIT# 01:48 → ER 01:54
DX: K94.22 Gastrostomy infection (principal); E10.43 Type 1 diabetes mellitus with diabetic autonomic (poly)neuropathy; K31.84 Gastroparesis; E10.65 Type 1 diabetes mellitus with hyperglycemia; E10.621 Type 1 diabetes mellitus with foot ulcer; L97.529 Non-pressure chronic ulcer of other part of left foot with unspecified severity; I12.9 Hypertensive chronic kidney disease with stage 1 through stage 4 chronic kidney disease, or unspecified chronic kidney disease; N18.9 Chronic kidney disease, unspecified; E10.22 Type 1 diabetes mellitus with diabetic chronic kidney disease; D63.1 Anemia in chronic kidney disease; E10.42 Type 1 diabetes mellitus with diabetic polyneuropathy; I25.10 Atherosclerotic heart disease of native coronary artery without angina pectoris; E03.9 Hypothyroidism, unspecified; F41.9 Anxiety disorder, unspecified; F32.9 Major depressive disorder, single episode, unspecified; F60.9 Personality disorder, unspecified; F43.10 Post-traumatic stress disorder, unspecified; M79.7 Fibromyalgia; G47.30 Sleep apnea, unspecified; E66.01 Morbid (severe) obesity due to excess calories; J44.9 Chronic obstructive pulmonary disease, unspecified; Z90.49 Acquired absence of other specified parts of digestive tract; Z90.710 Acquired absence of both cervix and uterus; Z90.722 Acquired absence of ovaries, bilateral; Z88.2 Allergy status to sulfonamides; Z88.5 Allergy status to narcotic agent; Z88.8 Allergy status to other drugs, medicaments and biological substances; Z79.4 Long term (current) use of insulin; Z79.51 Long term (current) use of inhaled steroids; Z79.899 Other long term (current) drug therapy
CPT/HCPCS: 36415; 49465; 74176; 80053; 81000; 82947; 83605; 83735; 85025; 85610; 86141; 87040